=== PATIENT | female | born 1970 | race Caucasian/White ===

== ENCOUNTER 2017-07-12 22:13 | Emergency (ER) | payer BC ==
[2017-07-12 23:03] LABS: Absolute Lymphocytes (CBC) 1.5 K/uL (0.7-4.9); Absolute Monocytes 0.4 K/uL (0.1-1.3); Absolute Neutrophil 4.5 K/uL (1.8-8.0); Basophils % 0.6 % (0-1.3); Eosinophils % 3.3 % (0-4.4); Hematocrit 28.4 % (36.0-45.0); Lymphocytes % 22.4 % (15.3-44.8); MCH 29.4 pg (27.0-35.0); MCV 85.9 fL (80-100); MPV 9.4 fL (7.6-11.3); Monocytes % 5.9 % (3.3-12.3); RBC Red Blood Cell Count 3.31 M/uL (3.86-4.86)
[2017-07-12 23:15] LABS: Potassium 4.2 mEq/L (3.6-5.0)
[2017-07-12 23:19] LABS: Protime INR 0.87
[2017-07-12 23:21] LABS: Albumin 3.7 g/dL (3.2-5.5); Bilirubin Direct 0.1 mg/dL (0-0.2); Bilirubin Total 0.4 mg/dL (0.3-1.2); Magnesium 1.7 mg/dL (1.8-2.5); Protein, Total 7.9 g/dL (6.0-8.3)
[2017-07-12 23:25] LABS: CKMB Creatine Kinase MB 5.7 ng/ml (0.3-4.0)
[2017-07-12] MEDS ORDERED: ONDANSETRON 4 MG/2 ML VIAL ONE (23:44)
[2017-07-12] MEDS ORDERED: MORPHINE 4 MG/ML SYR ONE (23:44)
[2017-07-12 23:58] LABS: Urine Blood 1+ (NEG); Urine Glucose TRACE (NEG); Urine Protein 3+ (NEG); Urine Specific Gravity 1.015 (1.005-1.030)
[2017-07-13] MEDS ORDERED: MAGNESIUM SULFATE 1 gm IVPB 1 GM/100 ML BAG IV ONE (00:07)
--- NOTE | 2017-07-13 01:29 | EDPHYS ---
Physician Documentation [facility] Name: Emily Barbour Age: 46 yrs Sex: Female : 1970 Arrival Date: 07/12/2017 Time: 22:14 Bed 5 Private MD: ED Physician Ty Cano HPI: 07/13 00:00 This 46 yrs old Female presents to ER via Ambulatory with complaints of Leg pm1 Swelling. 00:00 The patient presents with swelling. The complaints affect the right leg and left leg. pm1 Context: The problem was sustained at home, resulted from an unknown cause, the patient can fully bear weight, the patient is able to ambulate, Problem is a result from a previous injury: No. Onset: The symptoms/episode began/occurred 1 month(s) ago. Modifying factors: The symptoms are alleviated by elevating leg, the symptoms are aggravated by nothing. Treatment prior to arrival includes: prescription medications, Lasix since 06/21/2017. Severity of symptoms: in the emergency department the symptoms are actually worse. The patient has been recently seen by a physician: the patient's primary care provider, Dr. Cameron. Patient with complaints of bilateral pedal edema for at least one month. Patient was seen by Dr. Cameron on 06/21 for same complaint and was prescribed Lasix. Patient reports not much improvement in swelling with Lasix. Patient reports some shortness of breath present with exertion. No chest pain. 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 - Social history:: Smoking status: Patient/guardian denies using tobacco. ROS: 07/13 00:00 Constitutional: Negative for fever, chills, and weight loss, Eyes: Negative for injury, pm1 pain, redness, and discharge, ENT: Negative for injury, pain, and discharge, Neck: Negative for injury, pain, and swelling, Cardiovascular: Negative for chest pain, palpitations, and edema. Abdomen/GI: Negative for abdominal pain, nausea, vomiting, diarrhea, and constipation, Back: Negative for injury and pain, : Negative for injury, bleeding, discharge, and swelling. Skin: Negative for injury, rash, and discoloration, Neuro: Negative for headache, weakness, numbness, tingling, and seizure. Respiratory: Positive for dyspnea on exertion, Negative for wheezing. MS/extremity: Positive for swelling, of the right leg and left leg. Exam: 00:00 Constitutional: This is a well developed, well nourished patient who is awake, alert, pm1 and in no acute distress. Head/Face: Normocephalic, atraumatic. Eyes: Pupils equal round and reactive to light, extra-ocular motions intact. Lids and lashes normal. Conjunctiva and sclera are non-icteric and not injected. Cornea within normal limits. Periorbital areas with no swelling, redness, or edema. ENT: Nares patent. No nasal discharge, no septal abnormalities noted. Tympanic membranes are normal and external auditory canals are clear. Oropharynx with no redness, swelling, or masses, exudates, or evidence of obstruction, uvula midline. Mucous membranes moist. Neck: Trachea midline, no thyromegaly or masses palpated, and no cervical lymphadenopathy. Supple, full range of motion without nuchal rigidity, or vertebral point tenderness. No Meningismus. Chest/axilla: Normal chest wall appearance and motion. Nontender with no deformity. No lesions are appreciated. 00:00 Respiratory: Lungs have equal breath sounds bilaterally, clear to auscultation and percussion. No rales, rhonchi or wheezes noted. No increased work of breathing, no retractions or nasal flaring. Abdomen/GI: Soft, non-tender, with normal bowel sounds. No distension or tympany. No guarding or rebound. No evidence of tenderness throughout. Back: No spinal tenderness. No costovertebral tenderness. Full range of motion. Skin: Warm, dry with normal turgor. Normal color with no rashes, no lesions, and no evidence of cellulitis. MS/ Extremity: Pulses equal, no cyanosis. Neurovascular intact. Full, normal range of motion. 00:00 Cardiovascular: Rate: normal, Rhythm: regular, Pulses: no pulse deficits are appreciated, Edema: pedal edema, that is mild. 00:00 Neuro: Orientation: is normal, Motor: is normal, moves all fours, Sensation: is normal, no obvious gross deficits. Vital Signs: 07/12 22:22 BP 164 / 78; Pulse 102; Resp 18; Temp 98.9; Pulse Ox 98% on R/A; Weight 95.25 kg (R); sr5 Height 5 ft. 5 in. (165.10 cm); Pain 10/10; 23:31 BP 148 / 90; Pulse 95; Resp 17; Pulse Ox 96% on R/A; Pain 10/10; tl1 23:55 BP 139 / 74; Pulse 92; Resp 19; Pulse Ox 95% on R/A; Pain 6/10; tl1 07/13 01:05 BP 125 / 71; Pulse 89; Resp 17; Temp 98.8; Pulse Ox 96% on R/A; Pain 4/10; tl1 07/12 22:22 Body Mass Index 34.95 (95.25 kg, 165.10 cm) sr5 MDM: 07/12 22:32 Patient medically screened. pm1 07/13 00:53 Data reviewed: vital signs. Data interpreted: Pulse oximetry: on room air is 98 %. pm1 Interpretation: normal. 01:28 Counseling: I had a detailed discussion with the patient and/or guardian regarding: the pm1 historical points, exam findings, and any diagnostic results supporting the discharge/admit diagnosis, lab results, radiology results, the need for outpatient follow up, to return to the emergency department if symptoms worsen or persist or if there are any questions or concerns that arise at home, Stop lasix. 07/12 22:48 Order name: Basic Metabolic Panel; Complete Time: 00:07 pm07/12 22:48 Order name: BNP; Complete Time: 00:07 pm07/12 22:48 Order name: CBC with Diff; Complete Time: 23:23 pm07/12 22:48 Order name: Ckmb; Complete Time: 00:07 pm07/12 22:48 Order name: CPK; Complete Time: 00:07 pm07/12 22:48 Order name: LFT's; Complete Time: 00:07 pm07/12 22:48 Order name: Magnesium; Complete Time: 00:07 pm07/12 22:48 Order name: PT-INR; Complete Time: 00:07 pm07/12 22:48 Order name: Ptt, Activated; Complete Time: 00:07 pm07/12 22:48 Order name: Troponin (emerg Dept Use Only); Complete Time: 23:23 pm1 07/12 22:48 Order name: XRAY Chest (1 view) pm1 07/12 23:34 Order name: Urine Dipstick--Ancillary (enter results); Complete Time: 00:07 2 07/12 23:34 Order name: Urine --Ancillary (enter results); Complete Time: 00:07 2 07/12 22:48 Order name: Urine Test (obtain specimen); Complete Time: 23:21 pm1 07/12 22:48 Order name: EKG; Complete Time: 22:48 pm1 07/12 22:48 Order name: Cardiac monitoring; Complete Time: 22:52 pm1 07/12 22:48 Order name: EKG - Nurse/Tech; Complete Time: 22:52 pm07/12 22:48 Order name: IV Saline Lock; Complete Time: 22:52 pm07/12 22:48 Order name: Labs collected and sent; Complete Time: 22:52 pm07/12 22:48 Order name: O2 Per Protocol; Complete Time: 22:52 pm07/12 22:48 Order name: O2 Sat Monitoring; Complete Time: 22:52 pm07/12 22:48 Order name: Urine Dipstick-Ancillary (obtain specimen); Complete Time: 22:52 pm1 Administered Medications: 07/12 23:29 Drug: Zofran 4 mg Route: IVP; Infused Over: 2 mins; Site: left antecubital; [facility] 07/13 01:06 Follow up: Response: No adverse reaction; Marked relief of symptoms [facility] 07/12 23:30 Drug: morphine 4 mg Route: IVP; Infused Over: 2 mins; Site: right antecubital; 1 07/13 01:06 Follow up: Response: No adverse reaction; Marked relief of symptoms; Pain is decreased [facility] 07/12 23:54 Drug: Magnesium Sulfate 1 grams Route: IVPB; Infused Over: 1 hrs; Site: right 1 antecubital; 07/13 01:05 Follow up: IV Status: Completed infusion 1 Disposition: 01:51 Co-signature as Attending Physician, Ty Cano MD I agree with the assessment and kdr plan of care. Disposition: 07/13/17 01:29 Discharged to Home. Impression: Edema, unspecified. - Condition is Stable. - Discharge Instructions: Edema. - Medication Reconciliation Form, Thank You Letter form. - Follow up: Emergency Department; When: As needed; Reason: Worsening of condition. Follow up: Jean-Paul Cameron DO; When: 1 - 2 days; Reason: Recheck today's complaints, Continuance of care, Re-evaluation by your physician. - Problem is new. - Symptoms have improved. Signatures: Dispatcher [employer] EDOK Ty Cano MD MD [facility] Michelle Moses, RN RN tl1 Alvino Irizarry NP PUBLIC TRANSIT TROLLEY DRIVER pm1 Jhonny Brito RN RN sr5
--- NOTE | 2017-07-13 01:29 | ER ---
Nurse's Notes [facility] Name: Emily Barbour Age: 46 yrs Sex: Female : 1970 Arrival Date: 07/12/2017 Time: 22:14 Bed 5 Private MD: Diagnosis: Edema, unspecified Presentation: 07/12 22:20 Presenting complaint: Patient states: bilateral leg swelling x several weeks, started sr5 on Lasix 40mg daily on June 30, reports some improvement but now having redness to that same area. PMH= DM, stage 4 kidney failure. 22:20 Acuity: SALENA 3 sr5 07/13 01:35 Transition of care: patient was not received from another setting of care. Onset of tl1 symptoms was July 13, 2017. Care prior to arrival: None. 01:35 Method Of Arrival: Ambulatory tl1 Triage Assessment: 07/12 22:22 General: Appears uncomfortable, Behavior is calm, cooperative. Pain: Complains of pain sr5 in right leg and left leg. 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 - Social history:: Smoking status: Patient/guardian denies using tobacco. Screenin:51 Abuse screen: Denies threats or abuse. Denies injuries from another. Nutritional tl1 screening: No deficits noted. Tuberculosis screening: No symptoms or risk factors identified. Fall Risk IV access (20 points). Assessment: 23:32 General: Appears in no apparent distress. uncomfortable, Behavior is calm, cooperative, tl1 appropriate for age. Pain: Complains of pain in left leg and right leg Pain currently is 10 out of 10 on a pain scale. Quality of pain is described as aching, sharp, stabbing. Neuro: Level of Consciousness is awake, alert, obeys commands, Oriented to person, place, time, situation. Cardiovascular: Reports shortness of breath, Denies chest pain, Rhythm is sinus tachycardia. Respiratory: Reports shortness of breath on exertion Airway is patent Trachea midline Respiratory effort is even, unlabored, Breath sounds are clear bilaterally. GI: Abdomen is round obese, Bowel sounds present X 4 quads. Abd is soft and non tender X 4 quads. : No signs and/or symptoms were reported regarding the genitourinary system. Musculoskeletal: Swelling present in left leg and right leg Reports pain in left leg and right leg. 07/13 01:33 Reassessment: Patient and/or family updated on plan of care and expected duration. Pain tl1 level reassessed. Patient is alert, oriented x 3, equal unlabored respirations, skin warm/dry/pink. Patient states feeling better. Patient states symptoms have improved. Vital Signs: 07/12 22:22 BP 164 / 78; Pulse 102; Resp 18; Temp 98.9; Pulse Ox 98% on R/A; Weight 95.25 kg (R); sr5 Height 5 ft. 5 in. (165.10 cm); Pain 10/10; 23:31 BP 148 / 90; Pulse 95; Resp 17; Pulse Ox 96% on R/A; Pain 10/10; tl1 23:55 BP 139 / 74; Pulse 92; Resp 19; Pulse Ox 95% on R/A; Pain 6/10; tl1 07/13 01:05 BP 125 / 71; Pulse 89; Resp 17; Temp 98.8; Pulse Ox 96% on R/A; Pain 4/10; tl1 07/12 22:22 Body Mass Index 34.95 (95.25 kg, 165.10 cm) sr5 ED Course: 07/12 22:14 Patient arrived in ED. am2 22:21 Triage completed. sr5 22:22 Arm band placed on right wrist. sr5 22:23 Alvino Irizarry NP is PHCP. pm1 22:23 Ty Cano MD is Attending Physician. pm1 22:51 Michelle Moses RN is Primary Nurse. tl1 22:51 No provider procedures requiring assistance completed. Inserted saline lock: 20 gauge tl1 in right antecubital area, using aseptic technique. Blood collected. 22:54 X-ray completed. Portable x-ray completed in exam room. Patient tolerated procedure bb2 well. 22:55 XRAY Chest (1 view) In Process Unspecified. EDMS 07/13 01:29 Jean-Paul Cameron DO is Referral Physician. pm1 01:33 intact, bleeding controlled, No redness/swelling at site. Pressure dressing applied. tl1 01:35 Patient has correct armband on for positive identification. Call light in reach. Side tl1 rails up X 1. Adult w/ patient. Administered Medications: 07/12 23:29 Drug: Zofran 4 mg Route: IVP; Infused Over: 2 mins; Site: left antecubital; tl1 07/13 01:06 Follow up: Response: No adverse reaction; Marked relief of symptoms tl1 07/12 23:30 Drug: morphine 4 mg Route: IVP; Infused Over: 2 mins; Site: right antecubital; tl1 07/13 01:06 Follow up: Response: No adverse reaction; Marked relief of symptoms; Pain is decreased tl1 07/12 23:54 Drug: Magnesium Sulfate 1 grams Route: IVPB; Infused Over: 1 hrs; Site: right tl1 antecubital; 07/13 01:05 Follow up: IV Status: Completed infusion tl1 Outcome: 01:29 Discharge ordered by MD. pm1 01:34 Discharged to home ambulatory, with family. tl1 01:34 Condition: improved 01:34 Discharge instructions given to patient, family, Instructed on discharge instructions, follow up and referral plans. Demonstrated understanding of instructions, follow-up care, discontinue Lasix until you follow up with Dr Rhodes 01:36 Patient left the ED. tl1 Signatures: Dispatcher [employer] EDMS Michelle Moses RN RN tl1 Alvino Irizarry, EXCHANGE CLERK EXCHANGE CLERK pm1 Jhonny Brito RN RN sr5 Jacquie Hughes am2 Saniya Myers bb2
[2017-07-13 01:52] VITALS: BP 125/71; TEMP 98.8; O2SAT 96
--- NOTE | 2017-07-13 08:08 | RAD REPORT ---
EXAM DESCRIPTION: RAD - Chest Single View - 07/12/2017 10:56 pm CLINICAL HISTORY: Shortness of breath. COMPARISON: 12/31/2016 FINDINGS: Portable technique limits examination quality. The lungs are grossly clear. The heart is normal in size. No displaced fractures. IMPRESSION: No acute intrathoracic process suspected.
--- NOTE | 2017-07-13 10:23 | EKG ---
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
== END 2017-07-13 01:36 | disposition home or self-care (01) ==
LOC: ER 22:13
DX: R60.9 Edema, unspecified (principal); Z88.8 Allergy status to other drugs, medicaments and biological substances
CPT/HCPCS: 36415; 71045; 80048; 80076; 81003; 81025; 82550; 82553; 83735; 83880; 84484; 85025; 85610; 85730; 93005; 99284; J2405; J3475

== ENCOUNTER 2017-07-14 10:40 | Emergency (ER) | payer BC ==
--- NOTE | 2017-07-14 11:13 | ER ---
Nurse's Notes [facility] Name: Emily Barbour Age: 46 yrs Sex: Female : 1970 Arrival Date: 07/14/2017 Time: 10:41 Bed 18 Private MD: Jean-Paul Cameron Diagnosis: Chronic pain, not elsewhere classified-neck Presentation: 07/14 10:57 Presenting complaint: Patient states: neck pain x 6 months. Pt seen by Dr. Ty who ss wants to have an MRI, but patient has yet to have one scheduled. states, "pretty much we are here because she needs something for pain.". Transition of care: patient was not received from another setting of care. Onset of symptoms was 2016. Care prior to arrival: None. 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 - Social history:: Smoking status: Patient/guardian denies using tobacco. Screenin:17 Abuse screen: Denies threats or abuse. Nutritional screening: No deficits noted. em Tuberculosis screening: No symptoms or risk factors identified. Fall Risk None identified. Assessment: 11:18 General: Appears in no apparent distress. uncomfortable, Behavior is cooperative, em crying, Reports having neck pain for 6 months, was aggravated by falling asleep on the toilet, has tingling in the right shoulder that is the same as 6 months ago, rates pain 9/10 has scheduled MRI but insurance has delayed it. Pain: Complains of pain in right side of neck Pain currently is 9 out of 10 on a pain scale. Quality of pain is described as sharp. Neuro: Level of Consciousness is awake, alert, obeys commands, Oriented to person, place, time, situation, Speech is normal, Tingling in right side of neck Denies weakness numbness. Cardiovascular: Capillary refill < 3 seconds Patient's skin is warm and dry. Respiratory: Airway is patent Respiratory effort is even, unlabored, Respiratory pattern is regular, symmetrical. GI: Abdomen is round non-distended. : No signs and/or symptoms were reported regarding the genitourinary system. EENT: No signs and/or symptoms were reported regarding the EENT system. Derm: Skin is intact, Skin is pink, warm \\T\\ dry. Musculoskeletal: Range of motion: limited in neck. Vital Signs: 10:59 BP 147 / 80; Pulse 102; Resp 16; Temp 97.6(O); Pulse Ox 98% on R/A; Height 5 ft. 5 in. ss (165.10 cm); Pain 9/10; 11:33 BP 138 / 84; Pulse 88; Resp 16; Pulse Ox 99% on R/A; Pain 9/10; em ED Course: 10:41 Patient arrived in ED. as 10:41 Jean-Paul Cameron DO is Private Physician. as 10:58 Triage completed. ss 10:59 Magda Dempsey [facility]-C [facility]. kb 10:59 Yordan Magana MD is Attending Physician. kb 10:59 Arm band placed on right wrist. ss 11:03 Kuldip Bay LVN is Primary Nurse. em 11:17 Patient has correct armband on for positive identification. Bed in low position. Call em light in reach. Side rails up X2. 11:17 No provider procedures requiring assistance completed. Patient did not have IV access em during this emergency room visit. Administered Medications: 11:20 Drug: [place] 5 mg-325 mg 1 tabs Route: PO; em 11:35 Follow up: Response: No adverse reaction; Pain is unchanged, physician notified em Outcome: 11:12 Discharge ordered by MD. kb 11:32 Discharged to home ambulatory. em 11:32 Condition: good 11:32 Discharge instructions given to patient, Instructed on discharge instructions, follow up and referral plans. Demonstrated understanding of instructions, follow-up care. 11:34 Patient left the ED. em Signatures: Magda Dempsey FNP-C FNP-Ckb Munoz, Edgar, LVN LVN em Clara Arzola Shelby, RN RN ss
--- NOTE | 2017-07-14 11:13 | EDPHYS ---
Physician Documentation [facility] Name: Emily Barbour Age: 46 yrs Sex: Female : 1970 Arrival Date: 07/14/2017 Time: 10:41 Bed 18 Private MD: Jean-Paul Cameron ED Physician Yordan Magana HPI: 07/14 11:08 This 46 yrs old Female presents to ER via Ambulatory with complaints of Neck kb Pain, >24Hrs Old. 11:08 The patient or guardian complains of pain, that is chronic. The symptoms are located on kb the right side of neck. Onset: The symptoms/episode began/occurred 6 month(s) ago. Context: The problem was sustained at home, The neck injury/problem resulted from sleeping wrong. Associated signs and symptoms: The patient has no apparent associated signs or symptoms, The patient denies any alcohol use. The patient is not apparently intoxicated. No neurological symptoms were experienced by the patient prior to arrival in the emergency department. The pain radiates to the anterior aspect of right shoulder. Modifying factors: The symptoms are alleviated by nothing. the symptoms are aggravated by movement, pressure. Severity of symptoms: At their worst the symptoms were moderate, in the emergency department the symptoms are unchanged. The patient has experienced similar episodes in the past. The patient has been recently seen by a physician:. Pt reports neck pain for 6 months. Has been seen by Dr Ty and is waiting on approval from insurance for a MRI. Comes in today because the pain was worse this morning. "I need something for this pain.". 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 - Social history:: Smoking status: Patient/guardian denies using tobacco. ROS: 11:08 Constitutional: Negative for fever, chills, and weight loss, Cardiovascular: Negative kb for chest pain, palpitations, and edema, Respiratory: Negative for shortness of breath, cough, wheezing, and pleuritic chest pain, Abdomen/GI: Negative for abdominal pain, nausea, vomiting, diarrhea, and constipation, MS/Extremity: Negative for injury and deformity, Skin: Negative for injury, rash, and discoloration, Neuro: Negative for headache, weakness, numbness, tingling, and seizure. 11:08 Neck: Positive for pain with movement, pain at rest, tenderness. Exam: 11:08 Constitutional: This is a well developed, well nourished patient who is awake, alert, kb and in no acute distress. Head/Face: Normocephalic, atraumatic. Chest/axilla: Normal chest wall appearance and motion. Nontender with no deformity. No lesions are appreciated. Cardiovascular: Regular rate and rhythm with a normal S1 and S2. No gallops, murmurs, or rubs. Normal PMI, no JVD. No pulse deficits. Respiratory: Lungs have equal breath sounds bilaterally, clear to auscultation and percussion. No rales, rhonchi or wheezes noted. No increased work of breathing, no retractions or nasal flaring. Abdomen/GI: Soft, non-tender, with normal bowel sounds. No distension or tympany. No guarding or rebound. No evidence of tenderness throughout. Skin: Warm, dry with normal turgor. Normal color with no rashes, no lesions, and no evidence of cellulitis. MS/ Extremity: Pulses equal, no cyanosis. Neurovascular intact. Full, normal range of motion. Neuro: Awake and alert, GCS 15, oriented to person, place, time, and situation. Cranial nerves II-XII grossly intact. Motor strength 5/5 in all extremities. Sensory grossly intact. Cerebellar exam normal. Normal gait. 11:08 Neck: External neck: tenderness, that is moderate, of the right side of neck. Vital Signs: 10:59 BP 147 / 80; Pulse 102; Resp 16; Temp 97.6(O); Pulse Ox 98% on R/A; Height 5 ft. 5 in. ss (165.10 cm); Pain 9/10; 11:33 BP 138 / 84; Pulse 88; Resp 16; Pulse Ox 99% on R/A; Pain 9/10; em MDM: 11:01 Patient medically screened. kb 11:08 Data reviewed: vital signs, nurses notes. Data interpreted: Pulse oximetry: on room air kb is 98 %. Interpretation: normal. Counseling: I had a detailed discussion with the patient and/or guardian regarding: the historical points, exam findings, and any diagnostic results supporting the discharge/admit diagnosis, the need for outpatient follow up, a family practitioner, to return to the emergency department if symptoms worsen or persist or if there are any questions or concerns that arise at home. ED course: Pt has tylenol #3 for pain at home. . Administered Medications: 11:20 Drug: [place] 5 mg-325 mg 1 tabs Route: PO; em 11:35 Follow up: Response: No adverse reaction; Pain is unchanged, physician notified em Disposition: 14:44 Co-signature as Attending Physician, Yordan Magana MD. Disposition: 07/14/17 11:12 Discharged to Home. Impression: Chronic pain, not elsewhere classified - neck. - Condition is Stable. - Discharge Instructions: Chronic Pain. - Medication Reconciliation Form, Thank You Letter, Antibiotic Education, Prescription Opioid Use form. - Follow up: Emergency Department; When: As needed; Reason: Worsening of condition. Follow up: Private Physician; When: 2 - 3 days; Reason: Recheck today's complaints, Continuance of care, Re-evaluation by your physician. Signatures: Magda Dempsey, PAOLA-Aurelio GUEVARA-Kuldip Nunez, INGRID TECHNICAL SPECIALIST CYTOGENETICS Suma Kinsey, Yordan Villagomez RN, MD MD
[2017-07-14] MEDS ORDERED: HYDROCODONE/APAP 5/325 MG TAB ONE (11:32)
[2017-07-14 11:46] VITALS: TEMP 97.6
[2017-07-14 11:47] VITALS: BP 138/84; O2SAT 99
== END 2017-07-14 11:34 | disposition home or self-care (01) ==
LOC: ER 10:40
DX: G89.29 Other chronic pain (principal); I10 Essential (primary) hypertension; Z88.8 Allergy status to other drugs, medicaments and biological substances
CPT/HCPCS: 99283

== ENCOUNTER 2017-07-19 15:51 | Inpatient (IN) | payer BC ==
--- NOTE | 2017-07-19 17:11 | RAD REPORT ---
EXAM DESCRIPTION: Cece Single View07/19/2017 4:56 pm CLINICAL HISTORY: sob COMPARISON: June 2017 FINDINGS: The lungs appear clear of acute infiltrate. The heart is normal size IMPRESSION: No acute abnormalities displayed
[2017-07-19 17:27] LABS: Protime INR 1.01
[2017-07-19 17:32] LABS: Absolute Monocytes 0.4 K/uL (0.1-1.3); Absolute Neutrophil 4.6 K/uL (1.8-8.0); Basophils % 1.6 % (0-1.3); Eosinophils % 3.6 % (0-4.4); Hematocrit 23.4 % (36.0-45.0); Lymphocytes % 15.5 % (15.3-44.8); MCH 29.1 pg (27.0-35.0); MCV 86.9 fL (80-100); MPV 9.7 fL (7.6-11.3); Monocytes % 5.7 % (3.3-12.3); RBC Red Blood Cell Count 2.69 M/uL (3.86-4.86)
[2017-07-19] MEDS ORDERED: HYDRALAZINE HCL 20 MG/ML VIAL IV PRN (17:41)
[2017-07-19] MEDS ORDERED: ONDANSETRON 4 MG/2 ML VIAL IV PRN (17:41)
[2017-07-19] MEDS ORDERED: ACETAMINOPHEN 500 MG TAB PO PRN (17:41)
[2017-07-19 17:45] LABS: Magnesium 2.4 mg/dL (1.8-2.5)
[2017-07-19 17:47] LABS: Potassium 4.2 mEq/L (3.6-5.0)
[2017-07-19] MEDS ORDERED: FUROSEMIDE 40 MG/4 ML VIAL ONE (17:51)
--- NOTE | 2017-07-19 17:53 | P.HP ---
Certification for Inpatient Patient admitted to: Observation With expected LOS: <2 Midnights Patient will require the following post-hospital care: None Practitioner: I am a practitioner with admitting privileges, knowledge of patient current condition, hospital course, and medical plan of care. Services: Services provided to patient in accordance with Admission requirements found in Title 42 Section 412.3 of the Code of Federal Regulations Patient History Date of Service: 07/19/17 Primary Care Provider: Dr. Cameron Reason for admission: Shortness of breath, edema History of Present Illness: 46-year-old female presented emergency room with increasing shortness of breath with exertion and edema. Patient has reported increasing shortness of breath with exertion and edema over the last several weeks. This week she has noted worsening symptoms. The patient reports a history of diabetes and chronic renal disease. The patient reports taking a diuretic medication. She is not on a strict fluid restriction. Patient also reports some back pain noted to the lumbar region. Edema to the lower extremities has it been increasing over the last several days. She is not able to walk short distances without getting tired and short of breath. She decided to come to the ER for further evaluation. In the ER the patient was evaluated. She was slightly tachypneic. Patient was found to have crackles to the lungs on exam. Chest x-ray showed mild pulmonary edema. Due to the nature the findings the patient was admitted for further evaluation and treatment. I was asked to admit the patient. Lab showed worsening of her chronic renal disease. Patient was also anemic at 7.8. This is a lower hemoglobin since her last lab. When I saw the patient in the ER, she appeared stable. Edema to the lower extremities were noted. Patient had some shortness of breath after talking. Allergies metformin Allergy (Verified 08/22/16 19:56) Unknown diphenhydramine HCl [From Benadryl] Adverse Reaction (Verified 08/22/16 15:45) Nausea/Vomiting linagliptin [From Tradjenta] Adverse Reaction (Verified 08/22/16 15:45) weight loss TRIGENTA Adverse Reaction (Severe, Uncoded 08/22/16 19:57) Nausea/Vomiting Home Medications: Amitriptyline HCl 100 mg PO BEDTIME 01/09/16 Cholecalciferol (Vitamin D3) [Vitamin D3] 1 tab PO DAILY 01/09/16 Fenofibrate 160 mg PO DAILY 01/09/16 Ferrous Sulfate [Feosol] 325 mg PO BID 01/09/16 Liraglutide [Victoza 2-Raghu] 1.8 mg SQ BEDTIME 01/09/16 Magnesium Chloride [Slow-Mag*] 1 tab PO BID 01/09/16 Omeprazole 1 tab PO BEDTIME 01/09/16 Sodium Bicarbonate 1 tab PO DAILY 01/09/16 Cyanocobalamin [Vitamin B-12*] 1,000 mcg PO DAILY #90 tab 01/12/16 Insulin Glargine,Hum.rec.anlog [Toujeo Solostar] 40 unit SQ DAILY WITH BREAKFAST 08/22/16 Insulin Lispro [Humalog Kwikpen] See Protocol SQ TID 08/22/16 Duloxetine HCl 30 mg PO DAILY 12/31/16 Trazodone [Desyrel*] 50 mg PO BEDTIME 12/31/16 - Past Medical/Surgical History Diabetic: Yes -: Hypertension -: Hypertriglyceridemia -: Diabetes mellitus type 2 -: Diabetic neuropathy -: Anemia of chronic disease -: Recurrent UTI -: Chronic kidney disease -: Irritable bowel syndrome-diarrhea -: Osteoarthritis -: Former smoker -: Cholecystectomy -: Appendectomy -: Hysterectomy -: Tubal ligation -: Breast reduction -: Adenoidectomy Psychosocial/ Personal History: Patient is for 30 years, she has 3 children, she works at [employer] - Family History Father -: Heart disease, Hypertension, Cancer Mother -: Hypertension, Diabetes - Social History Smoking Status: Former smoker Alcohol use: Yes CD- Drugs: No Caffeine use: Yes Place of Residence: Home Review of Systems General: Weakness, Malaise, As per HPI Eyes: Unremarkable ENT: Unremarkable Respiratory: Shortness of Breath, SOB with Excertion, As per HPI Cardiovascular: Edema, As per HPI Gastrointestinal: Unremarkable Genitourinary: Unremarkable Musculoskeletal: Back Pain, Pedal edema, As per HPI Integumentary: Unremarkable Neurological: Weakness, As per HPI Lymphatics: Unremarkable Physical Examination - Physical Exam General: Alert, In no apparent distress, Oriented x3, Cooperative HEENT: Atraumatic, Normocephalic, PERRLA, Mucous membr. moist/pink Neck: Supple, No Thyromegaly Respiratory: Crackles/rales (Bilateral) Cardiovascular: Abnormal pulses (Slightly tachycardic) Gastrointestinal: Normal bowel sounds, Soft and benign, Non-distended, No tenderness, No masses, No rebound, No guarding Musculoskeletal: No erythema, No tenderness, No warmth, Other (Pain to the lumbar region.) Integumentary: No erythema, No warmth, No cyanosis, Tenderness/swelling (1 to 2 + pitting edema to the lower extremities bilateral) Neurological: Normal speech, Normal strength at 5/5 x4 extr, Normal tone, Normal affect - Studies Laboratory Data (last 24 hrs) 07/19/17 17:10: PT 11.9, INR 1.01 07/19/17 17:10: WBC 6.3, Hgb 7.8 L*, Hct 23.4 L D, Plt Count 258 D 07/19/17 17:10: Glucose 147 H Assessment and Plan - Problems (Diagnosis) (1) Dyspnea Current Visit: Yes Status: Acute Plan: Shortness of breath likely from pulmonary edema. Patient may have underlying CHF along with chronic renal disease. Lab shows worsening of her renal disease. Will diurese patient. Will place on a fluid restriction. Nephrology consulted to further evaluate. Will check echocardiogram. Will monitor cardiac enzymes. Qualifiers: Dyspnea type: shortness of breath Qualified Code(s): R06.02 - Shortness of breath; R06.00 - Dyspnea, unspecified; R06.01 - Orthopnea (2) Pulmonary edema Current Visit: Yes Status: Acute Plan: Patient with acute pulmonary edema. This appears stable at this time. Will continue with diuresis. Will check echocardiogram to evaluate for CHF. Qualifiers: Chronicity: acute Qualified Code(s): J81.0 - Acute pulmonary edema (3) CHF (congestive heart failure) Current Visit: Yes Status: Suspected Plan: Suspect CHF. Will check echocardiogram. Will continue with diuresis. Qualifiers: Heart failure type: systolic Heart failure chronicity: acute on chronic Qualified Code(s): I50.23 - Acute on chronic systolic (congestive) heart failure (4) Chronic kidney disease Onset Date: 01/12/16 Current Visit: No Status: Chronic Plan: Patient with worsening renal disease. Will consult Nephrology. Will continue with above plan of care. Qualifiers: Chronic kidney disease stage: stage 4 (severe) Qualified Code(s): N18.4 - Chronic kidney disease, stage 4 (severe) (5) Diabetes mellitus Onset Date: 09/22/15 Current Visit: No Status: Chronic Plan: Will check A1c. Will continue sliding scale. 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 insulin use: with fpc use Diabetes mellitus complication status: with kidney complications Diabetes mellitus complication detail: with chronic kidney disease Chronic kidney disease stage: stage 4 (severe) Qualified Code(s): E11.22 - Type 2 diabetes mellitus with diabetic chronic kidney disease; N18.4 - Chronic kidney disease, stage 4 (severe); N18.4 - Chronic kidney disease, stage 4 (severe); N18.4 - Chronic kidney disease, stage 4 (severe); N18.4 - Chronic kidney disease, stage 4 (severe); Z79.4 - tank terminal gauger (current) use of insulin; Z79.4 - tank terminal gauger (current) use of insulin; Z79.4 - custodial (current) use of insulin; Z79.4 - custodial (current) use of insulin (6) Hypertension Onset Date: 08/23/16 Current Visit: No Status: Chronic Plan: Patient with history of hypertension. Will need to obtain medication. Will provide medication if blood pressure elevated. Qualifiers: Hypertension type: essential hypertension Qualified Code(s): I10 - Essential (primary) hypertension (7) Anemia Onset Date: 04/30/14 Current Visit: No Status: Chronic Plan: Patient with history of anemia. Will check B12 and iron studies. Will monitor closely. Patient will likely need GI evaluation as an outpatient. Patient denies melena or rectal bleeding. Qualifiers: Anemia type: B12 deficiency Vitamin B12 deficiency anemia type: unspecified B12 deficiency Qualified Code(s): D51.9 - Vitamin B12 deficiency anemia, unspecified (8) GERD (gastroesophageal reflux disease) Current Visit: Yes Status: Suspected Plan: Will provide PPI. Qualifiers: Esophagitis presence: esophagitis presence not specified Qualified Code(s) : K21.9 - Gastro-esophageal reflux disease without esophagitis Discharge Plan: Home Plan to discharge in: 24 Hours - Advance Directives Does patient have a Living Will: No Does patient have a Durable POA for Healthcare: No - Code Status/Comfort Care Code Status Assessed: Yes Time Spent Managing Pts Care (In Minutes): 55
[2017-07-19] MEDS ORDERED: GLUCAGON 1 MG/VIAL IM PRN (17:54)
[2017-07-19] MEDS ORDERED: D50W 25 GM/50 ML SYRINGE IV PRN (17:54)
--- NOTE | 2017-07-19 17:56 | ER ---
Nurse's Notes [facility] Name: Emily Barbour Age: 46 yrs Sex: Female : 1970 Arrival Date: 07/19/2017 Time: 15:54 Bed 15 Private MD: Jean-Paul Cameron Diagnosis: Pulmonary edema;Anemia in chronic kidney disease;Heart failure Presentation: 07/19 16:15 Presenting complaint: Patient states: Weakness, dizziness, and low back pain for 2 aj weeks. Denies blood in urine or burning with urination. Transition of care: patient was not received from another setting of care. Onset of symptoms was July 05, 2017. Care prior to arrival: None. 16:15 Method Of Arrival: Ambulatory aj 16:15 Acuity: SALENA 3 aj Triage Assessment: 16:17 General: Appears in no apparent distress. uncomfortable, Behavior is calm, cooperative, aj appropriate for age. Pain: Complains of pain in low back area Pain currently is 9 out of 10 on a pain scale. Neuro: Level of Consciousness is awake, alert, obeys commands, Oriented to person, place, time, situation. Respiratory: Airway is patent Respiratory effort is even, unlabored, Respiratory pattern is regular, symmetrical. : Denies burning with urination. Derm: Skin is intact, is healthy with good turgor, Skin is pink, warm \T\ dry. normal. Musculoskeletal: Reports pain in low back area. 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 - Hysterectomy aj Historical: - Allergies: 16:17 Benadryl; aj 16:17 metformin; aj 16:17 Tradjenta; aj - Home Meds: 16:17 Amitriptyline Oral [Active]; Cymbalta 20 mg Oral cpDR 1 cap daily [Active]; fenofibrate aj Oral [Active]; Humalog Sub-Q [Active]; Sodium Bicarbonate Oral [Active]; Toujeo SoloStar 300 unit/mL (1.5 mL) subcutaneous inpn [Active]; Victoza 3-Raghu subcutaneous [Active]; gabapentin oral oral [Active]; Tramadol Oral [Active]; - PMHx: 16:17 Anemia; Diabetes - NIDDM; High Cholesterol; Hypertension; Renal Disease; Tendonitis in aj Elbows; - PSHx: 16:17 Hysterectomy; Appendectomy; Cholecystectomy; breast reduction; aj - Immunization history:: Adult Immunizations up to date. - Social history:: Smoking status: Patient/guardian denies using tobacco. Screenin:35 Abuse screen: Denies threats or abuse. Nutritional screening: No deficits noted. rb1 Tuberculosis screening: No symptoms or risk factors identified. Fall Risk None identified. Assessment: 16:35 General: Appears in no apparent distress. comfortable, obese, Behavior is calm, rb1 cooperative. Pain: Complains of pain in low back area Pain currently is 8 out of 10 on a pain scale. Neuro: Level of Consciousness is awake, alert, obeys commands, Oriented to person, place, time, situation. Cardiovascular: Capillary refill < 3 seconds is brisk in bilateral fingers. Respiratory: Airway is patent Respiratory effort is even, unlabored, Respiratory pattern is regular, symmetrical. GI: No signs and/or symptoms were reported involving the gastrointestinal system. : No signs and/or symptoms were reported regarding the genitourinary system. Derm: Skin is pink, warm \T\ dry. Musculoskeletal: Swelling present in right leg and left leg. 17:30 Reassessment: Patient appears in no apparent distress at this time. No changes from rb1 previously documented assessment. 18:28 Reassessment: Patient appears in no apparent distress at this time. Patient and/or rb1 family updated on plan of care and expected duration. Pain level reassessed. Patient is alert, oriented x 3, equal unlabored respirations, skin warm/dry/pink. pt. is talking on the telephone. 19:15 Reassessment: Report received by JOCY Berrios, patient is AOX3, amb, no resp distress bs1 noted, denies chest pain, patient voiding frequently from lasix, patient now has room assignment and orders. pending transfer to 2nd floor. 19:29 Reassessment: Report called to 2nd floor at, patient left for xray. Will be taken up to bs1 2nd floor when patient gets back to ER. Vital Signs: 16:17 BP 129 / 69; Pulse 104; Resp 16; Temp 97.6; Pulse Ox 94% on R/A; Weight 102.06 kg; aj Height 5 ft. 5 in. (165.10 cm); Pain 9/10; 17:40 BP 124 / 68; Pulse 91; Resp 18; Pulse Ox 96% on R/A; rb1 18:30 BP 127 / 68; Pulse 93; Resp 17; Pulse Ox 97% on R/A; rb1 19:30 BP 118 / 59; Pulse 96; Resp 16; Pulse Ox 93% on R/A; Pain 0/10; bs1 16:17 Body Mass Index 37.44 (102.06 kg, 165.10 cm) aj ED Course: 15:54 Patient arrived in ED. mr 15:54 Jean-Paul Cameron DO is Private Physician. mr 16:16 Triage completed. aj 16:17 Arm band placed on right wrist. Patient placed in waiting room, Patient notified of aj wait time. 16:32 Agustina Segundo RN is Primary Nurse. rb1 16:35 Yordan Magana MD is Attending Physician. gs 16:35 Patient has correct armband on for positive identification. Placed in gown. Bed in low rb1 position. Call light in reach. Side rails up X 1. monitoring and evaluation advisor on. Pulse ox on. NIBP on. 16:55 X-ray completed. Portable x-ray completed in exam room. Patient tolerated procedure bb2 well. 16:57 XRAY Chest (1 view) In Process Unspecified. EDMS 17:10 Missed attempt(s): 22 gauge in right antecubital area. Labs were collected by JULIENNE Finley rb1 tech. IV went bad while flushing NS.. 17:40 Inserted saline lock: 20 gauge in left antecubital area, using aseptic technique. Blood ss collected. 17:47 EKG done, by technical services consultant. reviewed by Yordan Magana MD. at1 17:55 Vasquez Buenrostro DO is Hospitalizing Provider. gs 18:57 Report given to JOCY Kingston. rb1 19:37 No provider procedures requiring assistance completed. Patient admitted, IV remains in bs1 place. 19:51 Patient moved to radiology via wheelchair. bb2 19:51 X-ray completed. Patient tolerated procedure well. bb2 19:51 Patient moved back from radiology. bb2 Administered Medications: 17:45 Drug: Lasix 40 mg Route: IVP; Site: left antecubital; rb1 18:11 Follow up: Response: No adverse reaction; Blood pressure is unchanged rb1 Outcome: 17:56 Decision to Hospitalize by Provider. gs 19:37 Admitted to Med/surg accompanied by tech, via wheelchair, room 225, with chart, Report bs1 called to JOCY Morris 19:37 Condition: stable 20:08 Patient left the ED. bs1 Signatures: Dispatcher [employer] EDJacquie Tomas, RN RN Torrie Noble Shelby, RN RN ss Jacquie hernandez, power shovel operator helper EKG Tat1 Agustina Segundo RN RN rb1 Yordan Magana MD MD gs Bock, Brittany bb2 Saniya Thomas RN RN bs1 Corrections: (The following items were deleted from the chart) 18:53 17:00 BP 130 / 71; Pulse 91bpm; Resp 18bpm; Pulse Ox 96% RA; rb1 rb1
--- NOTE | 2017-07-19 17:56 | EDPHYS ---
Physician Documentation [facility] Name: Emily Barbour Age: 46 yrs Sex: Female : 1970 Arrival Date: 07/19/2017 Time: 15:54 Bed 15 Private MD: Jean-Paul Fish ED Physician Yordan Magana HPI: 07/19 17:45 This 46 yrs old Female presents to ER via Ambulatory with complaints of gs Weakness, Dizziness, SOB. 17:45 The patient has shortness of breath with light activity, during heavy activity. Onset: gs The symptoms/episode began/occurred 4 day(s) ago, and became worse and became persistent. Duration: The symptoms are continuous. The patient's shortness of breath is aggravated by exertion. Associated signs and symptoms: Pertinent negatives: fever. Severity of symptoms: At their worst the symptoms were moderate in the emergency department the symptoms are unchanged. The patient has experienced similar episodes in the past, a few times. The patient has been recently seen by a physician: Dr. fish. 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/A - Hysterectomy aj Historical: - Allergies: 16:17 Benadryl; aj 16:17 metformin; aj 16:17 Tradjenta; aj - Home Meds: 16:17 Amitriptyline Oral [Active]; Cymbalta 20 mg Oral cpDR 1 cap daily [Active]; fenofibrate aj Oral [Active]; Humalog Sub-Q [Active]; Sodium Bicarbonate Oral [Active]; Toujeo SoloStar 300 unit/mL (1.5 mL) subcutaneous inpn [Active]; Victoza 3-Raghu subcutaneous [Active]; gabapentin oral oral [Active]; Tramadol Oral [Active]; - PMHx: 16:17 Anemia; Diabetes - NIDDM; High Cholesterol; Hypertension; Renal Disease; Tendonitis in aj Elbows; - PSHx: 16:17 Hysterectomy; Appendectomy; Cholecystectomy; breast reduction; aj - Immunization history:: Adult Immunizations up to date. - Social history:: Smoking status: Patient/guardian denies using tobacco. ROS: 17:45 All other systems are negative. gs Exam: 17:45 Head/Face: Normocephalic, atraumatic. Eyes: Pupils equal round and reactive to light, gs extra-ocular motions intact. Lids and lashes normal. Conjunctiva and sclera are non-icteric and not injected. Cornea within normal limits. Periorbital areas with no swelling, redness, or edema. ENT: Nares patent. No nasal discharge, no septal abnormalities noted. Tympanic membranes are normal and external auditory canals are clear. Oropharynx with no redness, swelling, or masses, exudates, or evidence of obstruction, uvula midline. Mucous membranes moist. Neck: Trachea midline, no thyromegaly or masses palpated, and no cervical lymphadenopathy. Supple, full range of motion without nuchal rigidity, or vertebral point tenderness. No Meningismus. Chest/axilla: Normal chest wall appearance and motion. Nontender with no deformity. No lesions are appreciated. 17:45 Constitutional: The patient appears alert, awake. 17:45 Cardiovascular: Rate: tachycardic, Rhythm: regular, Pulses: no pulse deficits are appreciated, Edema: 2+ edema to level of left midcalf and right midcalf. 17:45 ECG was reviewed by the Attending Physician. Vital Signs: 16:17 BP 129 / 69; Pulse 104; Resp 16; Temp 97.6; Pulse Ox 94% on R/A; Weight 102.06 kg; aj Height 5 ft. 5 in. (165.10 cm); Pain 9/10; 17:40 BP 124 / 68; Pulse 91; Resp 18; Pulse Ox 96% on R/A; rb1 18:30 BP 127 / 68; Pulse 93; Resp 17; Pulse Ox 97% on R/A; rb1 19:30 BP 118 / 59; Pulse 96; Resp 16; Pulse Ox 93% on R/A; Pain 0/10; bs1 16:17 Body Mass Index 37.44 (102.06 kg, 165.10 cm) aj MDM: 16:43 Patient medically screened. 17:45 Differential diagnosis: CHF exacerbation, Chronic Obstructive Pulmonary Disease gs pneumonia, pulmonary edema. Data reviewed: vital signs, nurses notes, and as a result, I will admit patient. 07/19 16:44 Order name: Basic Metabolic Panel; Complete Time: 18:00 07/19 16:44 Order name: BNP 07/19 16:44 Order name: CBC with Diff; Complete Time: 17:51 07/19 16:44 Order name: Magnesium; Complete Time: 18:00 07/19 16:44 Order name: PT-INR; Complete Time: 17:41 07/19 16:44 Order name: Troponin (emerg Dept Use Only); Complete Time: 18:00 07/19 17:49 Order name: Hemoglobin A1C EDMS 07/19 17:49 Order name: T4 Free EDMS 07/19 17:49 Order name: Thyroid Stimulating Hormone EDMS 07/19 17:49 Order name: Basic Metabolic Panel EDMS 07/19 17:49 Order name: Basic Metabolic Panel EDMS 07/19 17:49 Order name: Basic Metabolic Panel EDMS 07/19 17:49 Order name: Basic Metabolic Panel EDMS 07/19 17:49 Order name: CBC with Automated Diff EDMS / 17:49 Order name: CBC with Automated Diff EDMS 07/19 17:49 Order name: CBC with Automated Diff EDMS / 17:49 Order name: CKMB Creatine Kinase MB EDMS / 17:49 Order name: CKMB Creatine Kinase MB EDMS / 17:49 Order name: CKMB Creatine Kinase MB EDMS / 17:49 Order name: Creatine Phosphokinase EDMS / 17:49 Order name: Creatine Phosphokinase EDMS / 17:49 Order name: Creatine Phosphokinase EDMS / 17:49 Order name: Lipid Profile EDMS / 17:49 Order name: Lipid Profile EDMS / 17:49 Order name: Magnesium EDMS / 17:49 Order name: Magnesium EDMS 07/19 17:49 Order name: Magnesium EDMS 07/19 17:49 Order name: Magnesium EDMS 07/19 17:49 Order name: Troponin I EDMS 07/19 17:49 Order name: Troponin I EDMS 07/19 16:44 Order name: XRAY Chest (1 view); Complete Time: 17:15 07/19 16:44 Order name: EKG; Complete Time: 16:44 07/19 16:44 Order name: Cardiac monitoring; Complete Time: 17:46 07/19 16:44 Order name: EKG - Nurse/Tech; Complete Time: 18:30 07/19 16:44 Order name: IV Saline Lock; Complete Time: 17:44 07/19 16:44 Order name: Labs collected and sent; Complete Time: 17:44 07/19 16:44 Order name: O2 Per Protocol; Complete Time: 17:44 gs 07/19 16:44 Order name: O2 Sat Monitoring; Complete Time: 17:45 gs 07/19 16:44 Order name: Urine Dipstick-Ancillary (obtain specimen); Complete Time: 19:01 gs 07/19 17:49 Order name: CONS Physician Consult EDIL 07/19 17:49 Order name: Echo with Doppler EDMS 07/19 17:49 Order name: Renal EDMS 07/19 17:49 Order name: Troponin I EDMS 07/19 17:49 Order name: Lumbar Spine 3 Views EDMS 07/19 17:49 Order name: Thoracic Spine W obliques EDMS 07/19 17:58 Order name: Vitamin B12 Level EDMS 07/19 17:58 Order name: Transferrin Sat/Iron Binding EDMS 07/19 17:58 Order name: Ferritin EDMS 07/19 17:58 Order name: Iron,Serum EDMS 07/19 18:06 Order name: Urine Dipstick--Ancillary (enter results) bd 07/19 18:51 Order name: Transferrin Sat/Iron Binding EDMS EC:45 Rate is 97 beats/min. Rhythm is regular. UT interval is normal. QRS interval is gs prolonged. T waves are Flattened. Clinical impression: Abnormal EKG without significant change. Interpreted by me. Administered Medications: 17:45 Drug: Lasix 40 mg Route: IVP; Site: left antecubital; rb1 18:11 Follow up: Response: No adverse reaction; Blood pressure is unchanged rb1 Disposition: 07/19/17 17:56 Hospitalization ordered by Vasquez Buenrostro for Observation. Preliminary diagnosis are Pulmonary edema, Anemia in chronic kidney disease, Heart failure. - Bed requested for Telemetry/MedSurg (observation). - Status is Observation. bs1 - Condition is Stable. - Problem is an acute exacerbation. - Symptoms have improved. UTI on Admission? Yes Signatures: Dispatcher [employer] EDIL Sadaf Dial RN Jacquie Woodard RN RN aj Barber, Rebecca, RN RN rb1 Yordan Magana MD MD gs Salazar, Brittany, RN RN bs1
[2017-07-19 18:51] LABS: Transferrin 185 mg/dL (192-382)
[2017-07-19 18:52] LABS: Urine Blood TRACE (NEG); Urine Glucose NEGATIVE (NEG); Urine Protein 3+ (NEG); Urine Specific Gravity 1.015 (1.005-1.030)
[2017-07-19 20:18] VITALS: BMI 36.9
--- NOTE | 2017-07-19 20:23 | RAD REPORT ---
EXAM DESCRIPTION: RAD - Lumbar Spine 3 Views - 07/19/2017 7:59 pm CLINICAL HISTORY: Weakness, dizziness, back pain COMPARISON: None. FINDINGS: A three-view lumbar spine examination was performed. Lumbar bodies are normal in height an d alignment. No fracture or acute bony process seen. T12-L1 and L1-2 disc space narrowing present. Th ere is associated endplate spurring. Mild lower lumbar facet joint degenerative changes are present. No pars defects identified. IMPRESSION: Upper lumbar disc and lower lumbar facet degenerative change. No acute findings.
--- NOTE | 2017-07-19 20:53 | RAD REPORT ---
EXAM DESCRIPTION: RAD - Thoracic Spine Ap/Lat - 07/19/2017 7:59 pm CLINICAL HISTORY: Persistent back pain COMPARISON: March 2016 FINDINGS: AP & lateral views of the thoracic spine were obtained. Thoracic bodies are normal in heig ht and alignment. There are no acute or destructive bony processes seen. No paraspinal masses are hung ntified. Endplate spurring present at multiple levels. Pattern is similar to the comparison. No disc space narrowing. IMPRESSION: Thoracic spine degenerative changes are present similar or only minimally progressive fr om 2016. No fracture or acute finding identifiable.
[2017-07-19] MEDS: INSULIN -REGULAR HUMAN 50 UNIT/0.5 ML ML SQ SCH (21:00)
[2017-07-19] MEDS: ENOXAPARIN 30 MG/0.3 ML SQ SCH (21:49)
[2017-07-19] MEDS ORDERED: TRAMADOL HCL 50 MG TAB PO PRN (22:23)
[2017-07-20 01:29] LABS: CKMB Creatine Kinase MB 3.9 ng/ml (0.3-4.0)
[2017-07-20 02:41] LABS: Urine Appearance CLOUDY; Urine Bilirubin NEGATIVE (NEG); Urine Blood NEGATIVE (NEG); Urine Color YELLOW; Urine Glucose 1+ (NEG); Urine Protein 1+ (NEG); Urine Urobilinogen 0.2 mg/dL (0.2-1.0)
[2017-07-20 02:42] LABS: Urine Microscopic Reflex ORDER UMIC
[2017-07-20 03:26] LABS: Urine Bacteria LOADED /HPF (<20); Urine Culture Reflex Order REFLEXED; Urine RBC NONE SEEN /HPF (NONE SEEN)
[2017-07-20 04:46] VITALS: O2SAT 99
[2017-07-20 05:30] LABS: Absolute Monocytes 0.4 K/uL (0.1-1.3); Absolute Neutrophil 3.1 K/uL (1.8-8.0); Basophils % 0.5 % (0-1.3); Eosinophils % 5.2 % (0-4.4); Lymphocytes % 21.6 % (15.3-44.8); MCH 29.9 pg (27.0-35.0); MCV 86.4 fL (80-100); MPV 8.8 fL (7.6-11.3); RBC Red Blood Cell Count 2.78 M/uL (3.86-4.86)
[2017-07-20 06:30] LABS: BUN Blood Urea Nitrogen 49 mg/dL (6-20); Bicarbonate 29 mEq/L (21-31); Glomerular Filtration Rate 17 mL/min (=/>90); Glucose Level 244 mg/dL (65-120); HDL Cholesterol 41 mg/dL (29-89); LDL Cholesterol, Calculated ND (<130); Magnesium 2.4 mg/dL (1.8-2.5); Phosphorus 4.9 mg/dL (2.5-4.3); Potassium 4.3 mEq/L (3.6-5.0); Sodium Level 133 mEq/L (135-145); Uric Acid 9.4 mg/dL (2.6-8.0)
[2017-07-20 06:45] LABS: Thyroid Stimulating Hormone 5.61 uIU/mL (0.34-5.60)
[2017-07-20 07:04] LABS: LDL, Direct 83 mg/dl (<130)
--- NOTE | 2017-07-20 07:36 | EKG ---
Test Date: 2017-07-19 Test Time: 16:52:48 Computer Language Coder: RACHAEL MEASUREMENT RESULTS: Intervals: Rate: 97 MT: 152 QRSD: 148 QT: 402 QTc: 510 [place]: P: 57 MT: 152 QRS: -73 T: 55 INTERPRETIVE STATEMENTS: Normal sinus rhythm Right bundle branch block Left anterior fascicular block Bifascicular block Abnormal ECG Compared to ECG 07/12/2017 22:55:51 Myocardial infarct finding no longer present Bifascicular block still present Electronically Signed On 07-20-17 07:34:56 CDT by Ankit Simmons
[2017-07-20] MEDS ORDERED: TRAMADOL HCL 50 MG TAB PO PRN (07:46)
[2017-07-20 07:53] LABS: A1c Component 0.4 mg/dL; Hemoglobin A1c 6.6 % (4-6.0)
[2017-07-20] MEDS: INSULIN DETEMIR 100 UNIT/1 ML INSULIN SQ SCH (08:28)
[2017-07-20] MEDS: DULOXETINE 30 MG CAP PO SCH (08:29)
[2017-07-20] MEDS: INSULIN -REGULAR HUMAN 50 UNIT/0.5 ML ML SQ SCH ×4 (08:29→21:19)
[2017-07-20] MEDS: ENOXAPARIN 30 MG/0.3 ML SQ SCH (08:29)
--- NOTE | 2017-07-20 08:29 | P.CNS ---
Date of Consult: 07/20/17 Reason for Consult: OMAR/ CKD Requesting Physician: Vasquez Buenrostro Primary Care Provider: Dr. Fish Chief Complaint: Shortness of breath, edema History of Present Illness: 46-year-old female presented emergency room with increasing shortness of breath with exertion and edema. Patient has reported increasing shortness of breath with exertion and edema over the last several weeks. This week she has noted worsening symptoms. The patient reports a history of diabetes and chronic renal disease. The patient reports taking a diuretic medication. She is not on a strict fluid restriction. Patient also reports some back pain noted to the lumbar region. Edema to the lower extremities has it been increasing over the last several days. She is not able to walk short distances without getting tired and short of breath. She decided to come to the ER for further evaluation. 17:45 This 46 yrs old Female presents to ER via Ambulatory with complaints of gs Weakness, Dizziness, SOB. 17:45 The patient has shortness of breath with light activity, during heavy activity. Onset: gs The symptoms/episode began/occurred 4 day(s) ago, and became worse and became persistent. Duration: The symptoms are continuous. The patient's shortness of breath is aggravated by exertion. Associated signs and symptoms: Pertinent negatives : fever. Severity of symptoms: At their worst the symptoms were moderate in the emergency department the symptoms are unchanged. The patient has experienced similar episodes in the past, a few times. The patient has been recently seen by a physician: Dr. fish. Allergies metformin Allergy (Verified 08/22/16 19:56) Unknown diphenhydramine HCl [From Benadryl] Adverse Reaction (Verified 08/22/16 15:45) Nausea/Vomiting linagliptin [From Tradjenta] Adverse Reaction (Verified 08/22/16 15:45) weight loss TRIGENTA Adverse Reaction (Severe, Uncoded 08/22/16 19:57) Nausea/Vomiting Home medications list reviewed: Yes Home Medications: Amitriptyline HCl 100 mg PO BEDTIME 01/09/16 Fenofibrate 160 mg PO DAILY 01/09/16 Liraglutide [Victoza 2-Raghu] 1.8 mg SQ BEDTIME 01/09/16 Sodium Bicarbonate 10 gran PO DAILY 01/09/16 Insulin Lispro [Humalog Kwikpen] See Protocol SQ TID 08/22/16 Bumetanide 0.5 mg PO DAILY 07/19/17 Duloxetine HCl [Cymbalta] 30 mg PO DAILY 07/19/17 Furosemide [Lasix] 40 mg PO DAILY 07/19/17 Insulin Glargine,Hum.rec.anlog [Margaux Hsuostmoshe] 50 unit SQ DAILY 07/19/17 Liraglutide [Victoza 2-Raghu] 1.8 mg SQ DAILY 07/19/17 traMADol HCL [Ultram] 50 mg PO Q6H PRN 07/19/17 - Past Medical/Surgical History Diabetic: Yes -: Hypertension -: Hypertriglyceridemia -: Diabetes mellitus type 2 -: Diabetic neuropathy -: Anemia of chronic disease -: Recurrent UTI -: Chronic kidney disease -: Irritable bowel syndrome-diarrhea -: Osteoarthritis -: Former smoker -: Cholecystectomy -: Appendectomy -: Hysterectomy -: Tubal ligation -: Breast reduction -: Adenoidectomy Psychosocial/ Personal History: Patient is for 30 years, she has 3 children, she works at [employer]. - Family History Father Medical History: Stroke, Cancer Mother Medical History: Heart disease, Diabetes - Social History Smoking Status: Former smoker Alcohol use: Yes CD- Drugs: No Caffeine use: Yes Place of Residence: Home Review of Systems 10-point ROS is otherwise unremarkable General: Weakness, Malaise Respiratory: SOB with Excertion Cardiovascular: Edema Physical Examination Temp Pulse Resp BP Pulse Ox 96.9 F 92 H 18 123/60 99 07/20/17 04:00 07/20/17 04:00 07/20/17 04:00 07/20/17 04:00 07/20/17 04:00 General: In no apparent distress, Oriented x3, Cooperative HEENT: Atraumatic Neck: Supple Respiratory: Clear to auscultation bilaterally, Normal air movement Cardiovascular: Regular rate/rhythm, Edema Gastrointestinal: Soft and benign, Non-distended Musculoskeletal: No clubbing, No contractures Integumentary: No rashes, No cyanosis Neurological: Normal speech Laboratory Data (last 24 hrs) 07/19/17 17:40: B-Natriuretic Peptide 81 07/19/17 17:10: PT 11.9, INR 1.01 07/19/17 17:10: WBC 6.3, Hgb 7.8 L*, Hct 23.4 L D, Plt Count 258 D 07/19/17 17:10: Sodium 132 L, Potassium 4.2, BUN 46 H, Creatinine 3.00 H, Glucose 147 H, Magnesium 2.4 D Imagings Data: EXAM DESCRIPTION: Cece Single View07/19/2017 4:56 pm CLINICAL HISTORY: sob COMPARISON: June 2017 FINDINGS: The lungs appear clear of acute infiltrate. The heart is normal size IMPRESSION: No acute abnormalities displayed Conclusions/Impression: A/ OMAR/ CKD IV. Hyponatremia. DM II with neuropathy and CKD. Anemia in chronic illness. Iron deficiency. HTN with CKD. P/ Continue current POC and Medications. Agree with Lasix. Agree with stopping gabapentin due to possible side effect. No NSAIDs. AM labs. Daily weight. Thank you kindly for the consultation.
[2017-07-20] MEDS: FUROSEMIDE 40 MG/4 ML VIAL IV SCH ×2 (08:30→16:20)
[2017-07-20] MEDS: PANTOPRAZOLE 40MG TABLET PO SCH (08:30)
[2017-07-20] MEDS: FENOFIBRATE 160 MG TAB PO SCH (08:30)
--- NOTE | 2017-07-20 09:48 | P.PN ---
Subjective Date of Service: 07/20/17 Primary Care Provider: Dr. Cameron Chief Complaint: Shortness of breath, edema Subjective: Doing well (Edema to the lower extremities improved. Less short of breath noted.) Physical Examination - Vital Signs Temperature: 96.9 F Blood Pressure: 136/79 Pulse: 91 Respirations: 18 Pulse Ox (%): 99 - Physical Exam General: Alert, In no apparent distress, Oriented x3, Cooperative HEENT: Atraumatic Neck: Supple Respiratory: Crackles/rales (Less crackles to the bases) Cardiovascular: Normal pulses, Regular rate/rhythm Gastrointestinal: Normal bowel sounds, Soft and benign, Non-distended, No tenderness, No masses, No rebound, No guarding Musculoskeletal: No erythema, No tenderness, No warmth Integumentary: Tenderness/swelling (Less edema to the lower extremities. About 1+ bilateral) Neurological: Normal speech, Normal strength at 5/5 x4 extr, Normal tone, Normal affect Lymphatics: No axilla or inguinal lymphadenopathy - Studies Laboratory Data (last 24 hrs) 07/19/17 17:40: B-Natriuretic Peptide 81 07/19/17 17:10: PT 11.9, INR 1.01 07/19/17 17:10: WBC 6.3, Hgb 7.8 L*, Hct 23.4 L D, Plt Count 258 D 07/19/17 17:10: Sodium 132 L, Potassium 4.2, BUN 46 H, Creatinine 3.00 H, Glucose 147 H, Magnesium 2.4 D Medications List Reviewed: Yes Assessment & Plan - Problems (Diagnosis) (1) Dyspnea Current Visit: Yes Status: Acute Plan: Overall this has improved. Await echocardiogram. Case discussed with nephrology. Will continue with diuresis. Will teach on fluid restriction. This is likely related to pulmonary edema related to medication-Gralise. Will discontinue Gralise at this time. Anticipate discharge tomorrow. Qualifiers: Dyspnea type: shortness of breath Qualified Code(s): R06.02 - Shortness of breath; R06.00 - Dyspnea, unspecified; R06.01 - Orthopnea (2) Pulmonary edema Current Visit: Yes Status: Acute Plan: Patient with acute pulmonary edema. This has improved. Will evaluate echocardiogram. Will continue with diuresis. Continue as above. Qualifiers: Chronicity: acute Qualified Code(s): J81.0 - Acute pulmonary edema (3) CHF (congestive heart failure) Current Visit: Yes Status: Suspected Plan: Suspect CHF. Will check echocardiogram. Will continue with diuresis. Qualifiers: Heart failure type: systolic Heart failure chronicity: acute on chronic Qualified Code(s): I50.23 - Acute on chronic systolic (congestive) heart failure (4) Chronic kidney disease Onset Date: 01/12/16 Current Visit: No Status: Chronic Plan: Patient with worsening renal disease. Overall stable. Case discussed at length with nephrology. Will continue with above plan of care. Anticipate discharge tomorrow. Qualifiers: Chronic kidney disease stage: stage 4 (severe) Qualified Code(s): N18.4 - Chronic kidney disease, stage 4 (severe) (5) Diabetes mellitus Onset Date: 09/22/15 Current Visit: No Status: Chronic Plan: A1c 6.6. Will continue sliding scale. Qualifiers: Diabetes mellitus type: type 2 Diabetes mellitus penitentiary insulin use: with superintendent container terminal use Diabetes mellitus complication status: with kidney complications Diabetes mellitus complication detail: with chronic kidney disease Chronic kidney disease stage: stage 4 (severe) Qualified Code(s): E11.22 - Type 2 diabetes mellitus with diabetic chronic kidney disease; N18.4 - Chronic kidney disease, stage 4 (severe); N18.4 - Chronic kidney disease, stage 4 (severe); N18.4 - Chronic kidney disease, stage 4 (severe); N18.4 - Chronic kidney disease, stage 4 (severe); Z79.4 - jail (current) use of insulin; Z79.4 - intermediate designer (current) use of insulin; Z79.4 - intermediate designer (current) use of insulin; Z79.4 - jail (current) use of insulin (6) Hypertension Onset Date: 08/23/16 Current Visit: No Status: Chronic Plan: Patient with history of hypertension. Will need to obtain medication. Will provide medication if blood pressure elevated. Qualifiers: Hypertension type: essential hypertension Qualified Code(s): I10 - Essential (primary) hypertension (7) Anemia Onset Date: 04/30/14 Current Visit: No Status: Chronic Plan: Patient with history of anemia. Will check B12 and iron studies. Will monitor closely. Patient will likely need GI evaluation as an outpatient. Patient denies melena or rectal bleeding. Qualifiers: Anemia type: B12 deficiency Vitamin B12 deficiency anemia type: unspecified B12 deficiency Qualified Code(s): D51.9 - Vitamin B12 deficiency anemia, unspecified (8) GERD (gastroesophageal reflux disease) Current Visit: Yes Status: Suspected Plan: Will provide PPI. Qualifiers: Esophagitis presence: esophagitis presence not specified Qualified Code(s) : K21.9 - Gastro-esophageal reflux disease without esophagitis Discharge Plan: Home Plan to discharge in: 24 Hours Time Spent Managing Pts Care (In Minutes): 55
--- NOTE | 2017-07-20 10:26 | ECHO ---
HEIGHT: 5 ft 5 in WEIGHT: 222 lb 3.2 oz DATE OF STUDY: 07/20/[address]: Vasquez Buenrostro DO 2-DIMENSIONAL: YES M.MODE: YES DOPPLER: YES COLOR FLOW: YES TDS: NO PORTABLE: NO DEFINITY: NO BUBBLE STUDY: NO DIAGNOSIS: SHORTNESS OF BREATH, CONGESTIVE HEART FAILURE, CHRONIC RENAL DISEASE CARDIAC HISTORY: CATHERIZATION: SURGERY: PROSTHETIC VALVE: PACEMAKER: MEASUREMENTS (cm) DIASTOLIC (NORMALS) SYSTOLIC (NORMALS) IVSd 0.9 (0.6-1.2) LA Diam 3.2 (1.9-4.0) LVEF 79% LVIDd 3.4 (3.5-5.7) LVIDs 1.8 (2.0-3.5) %FS 46% LVPWd 1.2 (0.6-1.2) Ao Diam 2.6 (2.0-3.7) 2 DIMENSIONAL ASSESSMENT: RIGHT ATRIUM: NORMAL LEFT ATRIUM: NORMAL RIGHT VENTRICLE: NORMAL LEFT VENTRICLE: NORMAL TRICUSPID VALVE: NORMAL MITRAL VALVE: NORMAL PULMONIC VALVE: NORMAL AORTIC VALVE: NORMAL PERICARDIAL EFFUSION: NONE AORTIC ROOT: NORMAL LEFT VENTRICULAR WALL MOTION: NORMAL. DOPPLER/COLOR FLOW: NORMAL. COMMENTS: NORMAL 2D ECHO WITH DOPPLER. TECHNOLOGIST: ANA LAURA STRATTON
[2017-07-20 10:41] LABS: CKMB Creatine Kinase MB 4.3 ng/ml (0.3-4.0)
[2017-07-20] MEDS: BENZONATATE 100 MG CAP PO PRN (13:27)
[2017-07-20] MEDS ORDERED: AMITRIPTYLINE 50 MG TAB PO SCH (21:00)
[2017-07-21] MEDS: BENZONATATE 100 MG CAP PO PRN (01:28)
[2017-07-21 04:50] LABS: Absolute Lymphocytes (CBC) 1.1 K/uL (0.7-4.9); Absolute Monocytes 0.3 K/uL (0.1-1.3); Absolute Neutrophil 2.7 K/uL (1.8-8.0); Basophils % 0.9 % (0-1.3); Eosinophils % 5.6 % (0-4.4); Hematocrit 25.1 % (36.0-45.0); Lymphocytes % 24.9 % (15.3-44.8); MCV 85.8 fL (80-100); MPV 9.1 fL (7.6-11.3); Monocytes % 7.6 % (3.3-12.3); RBC Red Blood Cell Count 2.93 M/uL (3.86-4.86)
[2017-07-21 05:06] LABS: Magnesium 2.1 mg/dL (1.8-2.5); Potassium 4.4 mEq/L (3.6-5.0)
[2017-07-21] MEDS: INSULIN -REGULAR HUMAN 50 UNIT/0.5 ML ML SQ SCH (07:30)
[2017-07-21] MEDS: FUROSEMIDE 40 MG/4 ML VIAL IV SCH (08:50)
[2017-07-21] MEDS: PANTOPRAZOLE 40MG TABLET PO SCH (08:50)
[2017-07-21] MEDS: FENOFIBRATE 160 MG TAB PO SCH (08:50)
[2017-07-21] MEDS: DULOXETINE 30 MG CAP PO SCH (08:50)
[2017-07-21 08:51] VITALS: BP 151/70
[2017-07-21] MEDS: INSULIN DETEMIR 100 UNIT/1 ML INSULIN SQ SCH (08:51)
[2017-07-21] MEDS: ENOXAPARIN 30 MG/0.3 ML SQ SCH (08:51)
[2017-07-21 12:31] VITALS: TEMP 97.7
--- NOTE | 2017-07-21 13:41 | P.DS ---
Admission Date: 07/20/17 Discharge Date: 07/21/17 Primary Care Provider: Dr. Cameron Disposition: ROUTINE DISCHARGE Discharge Condition: GOOD Reason for Admission: Shortness of breath, edema Consultations: Nephrology-Dr. Cameron Procedures: Echo: Ejection fraction 79% - Problems (1) Dyspnea Onset Date: 07/20/17 Status: Acute Qualifiers: Dyspnea type: shortness of breath Qualified Code(s): R06.02 - Shortness of breath; R06.00 - Dyspnea, unspecified; R06.01 - Orthopnea (2) Pulmonary edema Onset Date: 07/20/17 Status: Acute Qualifiers: Chronicity: acute Qualified Code(s): J81.0 - Acute pulmonary edema (3) CHF (congestive heart failure) Onset Date: 07/20/17 Status: Suspected Qualifiers: Heart failure type: diastolic Heart failure chronicity: acute on chronic Qualified Code(s): I50.33 - Acute on chronic diastolic (congestive) heart failure (4) Chronic kidney disease Onset Date: 07/20/17 Status: Chronic Qualifiers: Chronic kidney disease stage: stage 4 (severe) Qualified Code(s): N18.4 - Chronic kidney disease, stage 4 (severe) (5) Diabetes mellitus Onset Date: 07/20/17 Status: Chronic Qualifiers: Diabetes mellitus type: type 2 Diabetes mellitus oysterman insulin use: with oysterman use Diabetes mellitus complication status: with kidney complications Diabetes mellitus complication detail: with chronic kidney disease Chronic kidney disease stage: stage 4 (severe) Qualified Code(s): E11.22 - Type 2 diabetes mellitus with diabetic chronic kidney disease; N18.4 - Chronic kidney disease, stage 4 (severe); N18.4 - Chronic kidney disease, stage 4 (severe); N18.4 - Chronic kidney disease, stage 4 (severe); N18.4 - Chronic kidney disease, stage 4 (severe); Z79.4 - ad terminal makeup operator (current) use of insulin; Z79.4 - ad terminal makeup operator (current) use of insulin; Z79.4 - ad terminal makeup operator (current) use of insulin; Z79.4 - penitentiary (current) use of insulin (6) Hypertension Onset Date: 07/20/17 Status: Chronic Qualifiers: Hypertension type: essential hypertension Qualified Code(s): I10 - Essential (primary) hypertension (7) Anemia Onset Date: 07/20/17 Status: Chronic Qualifiers: Anemia type: B12 deficiency Vitamin B12 deficiency anemia type: unspecified B12 deficiency Qualified Code(s): D51.9 - Vitamin B12 deficiency anemia, unspecified (8) GERD (gastroesophageal reflux disease) Onset Date: 07/20/17 Status: Suspected Qualifiers: Esophagitis presence: esophagitis presence not specified Qualified Code(s) : K21.9 - Gastro-esophageal reflux disease without esophagitis Brief History of Present Illness: 46-year-old female presented emergency room with increasing shortness of breath with exertion and edema. Patient has reported increasing shortness of breath with exertion and edema over the last several weeks. This week she has noted worsening symptoms. The patient reports a history of diabetes and chronic renal disease. The patient reports taking a diuretic medication. She is not on a strict fluid restriction. Patient also reports some back pain noted to the lumbar region. Edema to the lower extremities has it been increasing over the last several days. She is not able to walk short distances without getting tired and short of breath. She decided to come to the ER for further evaluation. In the ER the patient was evaluated. She was slightly tachypneic. Patient was found to have crackles to the lungs on exam. Chest x-ray showed mild pulmonary edema. Due to the nature the findings the patient was admitted for further evaluation and treatment. I was asked to admit the patient. Lab showed worsening of her chronic renal disease. Patient was also anemic at 7.8. This is a lower hemoglobin since her last lab. When I saw the patient in the ER, she appeared stable. Edema to the lower extremities were noted. Patient had some shortness of breath after talking. Hospital Course: Patient presented with weakness, pulmonary edema, and lower extremity edema. This was likely related to medication-Gralise and with her chronic renal disease. Gralise had been started several weeks ago. She had noticed increasing edema. Echocardiogram showed normal ejection fraction. During her stay the patient was diuresed. She was seen by nephrology. Patient responded to diuresis well. At discharge, medication-Gralise will be discontinued. Patient will continue with a 1500 cc per day fluid restriction. Patient will continue with Lasix 40 mg 1 pill once daily. She is to monitor her weight daily. If her weight increases by more than 5 lb she is to contact nephrology for further recommendation. Patient has chronic renal disease. This remained stable during her stay. Recommendation is to maintain a 1500 cc per day fluid restriction. Recommendation to recheck lab-BMP in 1-2 weeks to follow up this hospitalization. Recommendation is for the patient to follow up with Nephrology to further monitor and address. Patient has diabetes. Hemoglobin A1c 6.6. Patient will continue with her insulin regimen-Toujeo and other medication. Recommendation is to maintain blood sugars less 140 fasting and less than 200 after meals. Further adjustment can be done by her PCP. Patient has hyperlipidemia. She will continue with Fenofibrate 160 mg daily. Patient likely has GERD. Patient will continue with Protonix 40 mg 1 pill once daily. Patient has chronic pain with neuropathy. Patient will continue with Cymbalta and Elavil. As mentioned above. Medication-Gralise will be discontinued. Patient may have underlying obstructive sleep apnea. Recommendation is for the patient to follow up with pulmonology as an outpatient to further evaluate and assess Patient has anemia. Iron deficiency noted. She will continue with iron supplementation 325 mg 1 pill twice daily. Recommendation is to recheck CBC in 2-4 weeks to monitor progress. Recommendation is also for the patient to see GI as an outpatient to further evaluate. Patient may require EGD and colonoscopy to further assess. At discharge urine culture pending. Urinalysis appeared unremarkable. She was without symptoms. This will need to be followed up as an outpatient. Vital Signs/Physical Exam: Temp Pulse Resp BP Pulse Ox 97.7 F 70 16 151/70 H 94 07/21/17 08:00 07/21/17 08:50 07/21/17 08:00 07/21/17 08:50 07/21/17 08:00 General: Alert, In no apparent distress, Oriented x3, Cooperative HEENT: Atraumatic, Mucous membr. moist/pink Neck: Supple, No Thyromegaly Respiratory: Clear to auscultation bilaterally, Normal air movement Cardiovascular: Normal pulses, Regular rate/rhythm Gastrointestinal: Normal bowel sounds, Soft and benign, Non-distended, No tenderness, No masses, No rebound, No guarding Musculoskeletal: No erythema, No tenderness, No warmth Integumentary: No tenderness/swelling, No erythema, No warmth, No cyanosis Neurological: Normal speech, Normal strength at 5/5 x4 extr, Normal tone, Normal affect Lymphatics: No axilla or inguinal lymphadenopathy Laboratory Data at Discharge: WBC 4.5 K/uL (4.3-10.9) 07/21/17 04:21 Hgb 8.5 g/dL (12.0-15.0) L 07/21/17 04:21 Hct 25.1 % (36.0-45.0) L 07/21/17 04:21 Plt Count 225 K/uL (152-406) 07/21/17 04:21 PT 11.9 SECONDS (9.5-12.5) 07/19/17 17:10 INR 1.01 07/19/17 17:10 Sodium 132 mEq/L (135-145) L 07/21/17 04:21 Potassium 4.4 mEq/L (3.6-5.0) 07/21/17 04:21 BUN 50 mg/dL (6-20) H 07/21/17 04:21 Creatinine 2.83 mg/dL (0.44-1.00) H 07/21/17 04:21 Glucose 175 mg/dL (65-120) H 07/21/17 04:21 Uric Acid 9.4 mg/dL (2.6-8.0) H 07/20/17 05:15 Phosphorus 4.9 mg/dL (2.5-4.3) H 07/20/17 05:15 Magnesium 2.1 mg/dL (1.8-2.5) 07/21/17 04:21 Troponin I < 0.03 ng/mL (<0.03) 07/20/17 09:09 B-Natriuretic Peptide 81 pg/ml (<=100) 07/19/17 17:40 Triglycerides 427 mg/dL (35-160) H 07/20/17 05:15 Cholesterol 179 mg/dL (<200) 07/20/17 05:15 LDL Cholesterol Direct 83 mg/dl (<130) 07/20/17 05:15 HDL Cholesterol 41 mg/dL (29-89) 07/20/17 05:15 Cholesterol/HDL Ratio 4.37 07/20/17 05:15 Home Medications: Amitriptyline HCl 100 mg PO BEDTIME 01/09/16 Fenofibrate 160 mg PO DAILY 01/09/16 Liraglutide [Victoza 2-Raghu] 1.8 mg SQ BEDTIME 01/09/16 Insulin Lispro [Humalog Kwikpen] See Protocol SQ TID 08/22/16 Duloxetine HCl [Cymbalta] 30 mg PO DAILY 07/19/17 Insulin Glargine,Hum.rec.anlog [Toujeo Aracelisostar] 50 unit SQ DAILY 07/19/17 Liraglutide [Victoza 2-Raghu] 1.8 mg SQ DAILY 07/19/17 traMADol HCL [Ultram*] 50 mg PO Q6H PRN 07/19/17 Ferrous Sulfate [Iron] 325 mg PO BID #60 tablet 07/21/17 Furosemide [Lasix*] 40 mg PO DAILY #30 tab 07/21/17 Pantoprazole [Protonix Tab*] 40 mg PO DAILY #40 tab 07/21/17 New Medications: Ferrous Sulfate [Iron] 325 mg PO BID #60 tablet Furosemide [Lasix*] 40 mg PO DAILY #30 tab Pantoprazole [Protonix Tab*] 40 mg PO DAILY #40 tab Patient Discharge Instructions: 1. Patient will need a follow up with her PCP in 1 week to follow up this hospitalization. 2. Patient presented with weakness, pulmonary edema, and lower extremity edema. This was likely related to medication and with her chronic renal disease. At discharge, medication- Gralise will be discontinued. Patient will continue with a 1500 cc per day fluid restriction. Patient will continue with Lasix 40 mg 1 pill once daily. She is to monitor her weight daily. If her weight increases by more than 5 lb she is to contact nephrology for further recommendation. 3. Patient has chronic renal disease. Recommendation is to maintain a 1500 cc per day fluid restriction. Recommendation to recheck lab-BMP in 1-2 weeks to follow up this hospitalization. Recommendation is for the patient to follow up with Nephrology to further monitor and address. 4. Patient has diabetes. Hemoglobin A1c 6.6. Patient will continue with her insulin regimen-Toujeo and other medication. Recommendation is to maintain blood sugars less 140 fasting and less than 200 after meals. Further adjustment can be done by her PCP. 5. Patient has hyperlipidemia. She will continue with Fenofibrate 160 mg daily. 6. Patient likely has GERD. Patient will continue with Protonix 40 mg 1 pill once daily. 7. Patient has chronic pain with neuropathy. Patient will continue with Cymbalta and Elavil. As mentioned above. Medication-Gralise will be discontinued. 8. Patient may have underlying obstructive sleep apnea. Recommendation is for the patient to follow up with pulmonology as an outpatient to further evaluate and assess. 9. Patient has anemia. Iron deficiency noted. She will continue with iron supplementation 325 mg 1 pill twice daily. Recommendation is to recheck CBC in 2-4 weeks to monitor progress. Recommendation is also for the patient to see GI as an outpatient to further evaluate. Patient may require EGD and colonoscopy to further assess. Diet: Renal Activity: Ad brenden Followup: Jean-Paul Cameron DO [Primary Care Provider] - 1-2 Weeks (Call for appointment) Time spent managing pt's care (in minutes): 55
--- NOTE | 2017-07-21 21:23 | P.PN ---
Date of Service: 07/21/17 Vital Signs Temp Pulse Resp BP Pulse Ox 97.7 F 70 16 151/70 H 94 07/21/17 08:00 07/21/17 08:50 07/21/17 08:00 07/21/17 08:50 07/21/17 08:00 Microbiology Results 07/20/17 02:00 Clean Catch Urine [place] Count - Preliminary >100,000 CFU/ML. 07/20/17 02:00 Clean Catch Urine - Preliminary Assessment/ Plan: Nephrology. Feeling better today. CPS stable without CP or SOB. No acute events overnight. Vitals, medications, blood work and imaging reviewed in the chart. General: In no apparent distress, Oriented x3, Cooperative HEENT: Atraumatic Neck: Supple Respiratory: Clear to auscultation bilaterally, Normal air movement Cardiovascular: Regular rate/rhythm, Edema Gastrointestinal: Soft and benign, Non-distended Musculoskeletal: No clubbing, No contractures Integumentary: No rashes, No cyanosis Neurological: Normal speech Laboratory Data (last 24 hrs) 07/19/17 17:40: B-Natriuretic Peptide 81 07/19/17 17:10: PT 11.9, INR 1.01 07/19/17 17:10: WBC 6.3, Hgb 7.8 L*, Hct 23.4 L D, Plt Count 258 D 07/19/17 17:10: Sodium 132 L, Potassium 4.2, BUN 46 H, Creatinine 3.00 H, Glucose 147 H, Magnesium 2.4 D Imagings Data: EXAM DESCRIPTION: Cece Single View07/19/2017 4:56 pm CLINICAL HISTORY: sob COMPARISON: June 2017 FINDINGS: The lungs appear clear of acute infiltrate. The heart is normal size IMPRESSION: No acute abnormalities displayed Conclusions/Impression: A/ OMAR/ CKD IV. Hyponatremia. DM II with neuropathy and CKD. Anemia in chronic illness. Iron deficiency. HTN with CKD. P/ Continue current POC and Medications. Continue Lasix. Agree with stopping gabapentin. No NSAIDs. AM labs. Daily weight.
== END 2017-07-21 11:47 | disposition home or self-care (01) | DRG 206 ==
LOC: ER 15:51 → ERHOLD 18:02 → 2ND 19:45 → OBSVTOIN 07-20 18:02
PROVIDERS: ADMIT Family Medicine; ATTEND Family Medicine
DX: J70.2 Acute drug-induced interstitial lung disorders (principal); N18.4 Chronic kidney disease, stage 4 (severe); E87.1 Hypo-osmolality and hyponatremia; N17.9 Acute kidney failure, unspecified; I12.9 Hypertensive chronic kidney disease with stage 1 through stage 4 chronic kidney disease, or unspecified chronic kidney disease; E11.22 Type 2 diabetes mellitus with diabetic chronic kidney disease; Z79.4 Long term (current) use of insulin; T42.6X5A Adverse effect of other antiepileptic and sedative-hypnotic drugs, initial encounter; Y92.009 Unspecified place in unspecified non-institutional (private) residence as the place of occurrence of the external cause; D51.9 Vitamin B12 deficiency anemia, unspecified; K21.9 Gastro-esophageal reflux disease without esophagitis; G89.29 Other chronic pain; E78.5 Hyperlipidemia, unspecified; E11.40 Type 2 diabetes mellitus with diabetic neuropathy, unspecified
CPT/HCPCS: 36415; 71045; 72070; 72100; 80048; 80061; 81003; 81015; 82550; 82553; 82607; 82728; 82962; 83036; 83540; 83735; 83880; 84100; 84439; 84443; 84466; 84484; 84550; 85025; 85610; 87077; 87086; 87088; 87186; 93005; 93306; 96374; 99285; G0378; J1650

== ENCOUNTER 2017-07-24 08:55 | Emergency (ER) | payer BC ==
--- NOTE | 2017-07-24 10:04 | RAD REPORT ---
EXAM DESCRIPTION: Cece Urena (2 Views)07/24/2017 9:44 am CLINICAL HISTORY: sob COMPARISON: July 19 2017 FINDINGS: The lungs appear clear of acute infiltrate. The heart is normal size IMPRESSION: No acute abnormalities displayed
[2017-07-24] MEDS ORDERED: FUROSEMIDE 40 MG/4 ML VIAL ONE (10:20)
[2017-07-24 10:21] LABS: Absolute Lymphocytes (CBC) 0.9 K/uL (0.7-4.9); Absolute Monocytes 0.4 K/uL (0.1-1.3); Absolute Neutrophil 3.7 K/uL (1.8-8.0); Basophils % 1.1 % (0-1.3); Eosinophils % 6.3 % (0-4.4); Hematocrit 32.2 % (36.0-45.0); Lymphocytes % 17.1 % (15.3-44.8); MCV 86.6 fL (80-100); Monocytes % 7.9 % (3.3-12.3); RBC Red Blood Cell Count 3.71 M/uL (3.86-4.86)
[2017-07-24 10:26] LABS: Potassium 4.5 mEq/L (3.6-5.0)
[2017-07-24 10:30] LABS: Magnesium 1.8 mg/dL (1.8-2.5)
[2017-07-24 10:41] LABS: CKMB Creatine Kinase MB 5.7 ng/ml (0.3-4.0)
[2017-07-24] MEDS ORDERED: CEFTRIAXONE/SWI 1gm 1 GM/10 ML SYR ONE (11:03)
[2017-07-24] MEDS ORDERED: NA CHLORIDE 0.9% 500 ML ONE (11:25)
[2017-07-24 11:33] LABS: Urine Blood 2+ (NEG); Urine Glucose 1+ (NEG); Urine Protein 3+ (NEG); Urine Specific Gravity 1.025 (1.005-1.030)
[2017-07-24 11:46] LABS: Blood Morphology Comment NOT SEEN (NOT SEEN); Platelet Estimate ADEQ
--- NOTE | 2017-07-24 11:46 | ER ---
Nurse's Notes [facility] Name: Emily Barbour Age: 46 yrs Sex: Female : 1970 Arrival Date: 07/24/2017 Time: 08:58 Bed 13 Private MD: Jean-Paul Cameron Diagnosis: Dyspnea, unspecified;Muscle weakness (generalized);Urinary tract infection, site not specified Presentation: 07/24 09:08 Presenting complaint: Patient states: "I was admitted last week for CHF and was rb1 discharged on . I still feel weak and I haven't been able to go back to work yet.". Transition of care: patient was not received from another setting of care. Onset of symptoms is unknown. Care prior to arrival: None. 09:08 Method Of Arrival: Ambulatory rb1 09:08 Acuity: [place] 3 rb1 Triage Assessment: :08 The onset of the patients symptoms was at an unknown time. General: Appears in no rb1 apparent distress. comfortable, Behavior is calm, cooperative, Reports chills for >3 days, Denies fever. Neuro: Level of Consciousness is awake, alert, obeys commands, Oriented to person, place, time, situation, Genetics Nurse are equal bilaterally Moves all extremities. Gait is steady, Speech is normal, Facial symmetry appears normal, Pupils are PERRLA, Reports weakness in generalized. Cardiovascular: Capillary refill < 3 seconds is brisk in bilateral fingers. Respiratory: Reports cough that is Airway is patent Respiratory effort is even, unlabored, Respiratory pattern is regular, symmetrical. GI: Reports diarrhea. : No signs and/or symptoms were reported regarding the genitourinary system. Derm: Skin is pink, warm \\T\\ dry. Musculoskeletal: Range of motion: intact in all extremities. 09:08 Pain: Denies pain. 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/A - Hysterectomy rb1 Historical: - Allergies: 09:08 Benadryl; rb1 09:08 metformin; rb1 09:08 Tradjenta; rb1 - Home Meds: 09:08 Amitriptyline Oral [Active]; Cymbalta 20 mg Oral cpDR 1 cap daily [Active]; fenofibrate rb1 Oral [Active]; gabapentin Oral [Active]; Humalog Sub-Q [Active]; Sodium Bicarbonate Oral [Active]; Toujeo SoloStar 300 unit/mL (1.5 mL) subcutaneous inpn [Active]; Tramadol Oral [Active]; Victoza 3-Raghu subcutaneous [Active]; - PMHx: 09:08 Anemia; Diabetes - NIDDM; High Cholesterol; Hypertension; Renal Disease; Tendonitis in rb1 Elbows; - PSHx: 09:08 Hysterectomy; Appendectomy; Cholecystectomy; rb1 - Immunization history:: Adult Immunizations up to date. - Social history:: Smoking status: Patient/guardian denies using tobacco, the patient reports quitting approximately 4 years ago. - Family history:: not pertinent. - Hospitalizations: : The patient was recently seen at [facility], and discharged 3 day(s) ago. - History obtained from: Old Medical Record. Screenin:08 Abuse screen: Denies threats or abuse. Nutritional screening: No deficits noted. rb1 Tuberculosis screening: No symptoms or risk factors identified. Fall Risk None identified. Assessment: 09:08 General: See triage assessment. rb1 10:00 Reassessment: Patient appears in no apparent distress at this time. No changes from rb1 previously documented assessment. 11:00 Reassessment: Patient appears in no apparent distress at this time. Patient and/or rb1 family updated on plan of care and expected duration. Pain level reassessed. Patient is alert, oriented x 3, equal unlabored respirations, skin warm/dry/pink. Patient denies pain at this time. 11:28 Reassessment: Patient appears in no apparent distress at this time. No changes from rb1 previously documented assessment. Vital Signs: 09:08 BP 155 / 83; Pulse 103; Resp 18; Temp 98.6(O); Pulse Ox 100% on R/A; Weight 94.57 kg rb1 (M); Height 5 ft. 5 in. (165.10 cm); Pain 0/10; 09:30 BP 133 / 83; Pulse 102; Resp 23 S; Pulse Ox 100% on R/A; rb1 10:30 BP 139 / 77; Pulse 97; Resp 20; Pulse Ox 100% on R/A; Pain 0/10; rb1 11:29 BP 149 / 89; Pulse 98; Resp 20; Pulse Ox 100% on R/A; rb1 09:08 Body Mass Index 34.70 (94.57 kg, 165.10 cm) [facility] ED Course: :58 Patient arrived in ED. as 08:58 Aglieco, Jean-Paul, DO is Private Physician. as 09:00 Alejandrina Chang F[facility] kav 09:00 Destin Snyder MD is Attending Physician. kav 09:07 Agustina Segundo, RN is Primary Nurse. rb1 09:08 Arm band placed on right wrist. rb1 09:08 Patient has correct armband on for positive identification. Placed in gown. Bed in low rb1 position. Call light in reach. Side rails up X 1. installation superintendent on. Pulse ox on. NIBP on. 09:10 Triage completed. rb1 09:42 XRAY Chest Pa And Lat (2 Views) In Process Unspecified. EDMS 11:46 Jean-Paul Cameron DO is Referral Physician. kav 11:46 Ankit Simmons MD is Referral Physician. kav 12:09 IV discontinued, intact, bleeding controlled, No redness/swelling at site. Pressure rb1 dressing applied. 12:13 No provider procedures requiring assistance completed. rb1 Administered Medications: 10:04 Drug: Lasix 40 mg Route: IVP; Site: right antecubital; rb1 10:30 Follow up: Response: No adverse reaction; Blood pressure is unchanged rb1 10:41 Drug: Rocephin - (cefTRIAXone) 1 grams Route: IVPB; Infused Over: 30 mins; Site: right rb1 antecubital; 11:09 Follow up: Response: No adverse reaction rb1 11:09 Follow up: IV Status: Completed infusion rb1 11:09 Drug: NS 0.9% 500 ml Route: IV; Rate: bolus; Site: right antecubital; rb1 11:40 Follow up: IV Status: Completed infusion rb1 Outcome: 11:46 Discharge ordered by . kav 12:09 Discharged to home ambulatory. rb1 12:09 Condition: stable 12:09 Discharge instructions given to patient, Instructed on discharge instructions, follow up and referral plans. medication usage, Demonstrated understanding of instructions, follow-up care, medications, Prescriptions given X 2. 12:09 Patient left the ED. rb1 Signatures: Dispatcher [employer] EDMN Alejandrina Chang FNP SOCIAL MEDIA DEVELOPER Clara Calderon as Agustina Segundo, RN RN rb1 Corrections: (The following items were deleted from the chart) 12:14 12:13 IV discontinued, intact, bleeding controlled, No redness/swelling at site. rb1 Pressure dressing applied, rb1 12:17 12:15 Patient left the ED. rb1 rb1
--- NOTE | 2017-07-24 11:47 | EDPHYS ---
Physician Documentation [facility] Name: Emily Barbour Age: 46 yrs Sex: Female : 1970 Arrival Date: 07/24/2017 Time: 08:58 Bed 13 Private MD: Jean-Paul Cameron ED Physician Destin Snyder HPI: 07/24 09:00 This 46 yrs old Female presents to ER via Unassigned with complaints of kav Weakness. 09:34 The patient has shortness of breath with light activity. Onset: The symptoms/episode kav began/occurred acutely, this morning. Duration: The symptoms are intermittent, with no pattern. The patient's shortness of breath has no apparent modifying factors. Associated signs and symptoms: Pertinent positives: non-productive cough. Severity of symptoms: At their worst the symptoms were mild just prior to arrival, this morning. The patient has experienced a previous episode, approximately 2 days ago. The patient has been recently seen by a physician: The patient has been recently been admitted at [facility], was discharged from the hospital July 22, 2017. 09:41 Patient recently admitted to this hospital on 07/20/17 DX: Dyspnea, Pulmonary Edema, kav CHF, CKD, DM, HLD< HTN, Chronic Anemia, GERD. She was gently diuresed during her hospital stay. She was discharged to home on 07/21/17 with a fluid restriction of 1500 ml per day and with prescription for Lasix 40 mg po q daily. She was advised to f/u with Nephrology to rechedk lab: BMP in 1-2 weeks. She was advised to f/u with pulmonology for DX: Obstructive sleep Apnea. She was recommended to f/u with gastroenterology in 2-4 weeks to recheck CBC for DX: Chronic Anemia. She was advised to f/u with pcp in 1 week for post-hospital evaluation and treatment. She was prescribed the following medications at discharge to home: Ferrous Sulfate 325 mg po bid, Lasix 40 mg po q daily and Protonix 40 mg po q daily. She reports taking a diuretic medication: Bumex 0.5 mg po q daily. However, she reports that she has not picked up her prescription for Lasix. She has There is no edema to ble.. 10:52 Baseline creatinine 2.0. pmhx: ckd stage iv. 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 . 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 N/A - Hysterectomy rb1 Historical: - Allergies: 09:08 Benadryl; rb1 09:08 metformin; rb1 09:08 Tradjenta; rb1 - Home Meds: 09:08 Amitriptyline Oral [Active]; Cymbalta 20 mg Oral cpDR 1 cap daily [Active]; fenofibrate rb1 Oral [Active]; gabapentin Oral [Active]; Humalog Sub-Q [Active]; Sodium Bicarbonate Oral [Active]; Toujeo SoloStar 300 unit/mL (1.5 mL) subcutaneous inpn [Active]; Tramadol Oral [Active]; Victoza 3-Raghu subcutaneous [Active]; - PMHx: :08 Anemia; Diabetes - NIDDM; High Cholesterol; Hypertension; Renal Disease; Tendonitis in rb1 Elbows; - PSHx: 09:08 Hysterectomy; Appendectomy; Cholecystectomy; rb1 - Immunization history:: Adult Immunizations up to date. - Social history:: Smoking status: Patient/guardian denies using tobacco, the patient reports quitting approximately 4 years ago. - Family history:: not pertinent. - Hospitalizations: : The patient was recently seen at [facility], and discharged 3 day(s) ago. - History obtained from: Old Medical Record. ROS: 09:54 Constitutional: Negative for fever, chills, and weight loss, Eyes: Negative for injury, kav pain, redness, and discharge, ENT: Negative for injury, pain, and discharge, Neck: Negative for injury, pain, and swelling, Cardiovascular: Negative for chest pain, palpitations, and edema, Abdomen/GI: Negative for abdominal pain, nausea, vomiting, diarrhea, and constipation, Back: Negative for injury and pain, : Negative for injury, bleeding, discharge, and swelling, MS/Extremity: Negative for injury and deformity, Skin: Negative for injury, rash, and discoloration, Neuro: Negative for headache, weakness, numbness, tingling, and seizure, Psych: Negative for depression, anxiety, suicide ideation, homicidal ideation, and hallucinations, Allergy/Immunology: Negative for hives, rash, and allergies, Endocrine: Negative for neck swelling, polydipsia, polyuria, polyphagia, and marked weight changes, Hematologic/Lymphatic: Negative for swollen nodes, abnormal bleeding, and unusual bruising. 09:54 Respiratory: Positive for shortness of breath, on exertion. Exam: 09:54 Constitutional: This is a well developed, well nourished patient who is awake, alert, kav and in no acute distress. Head/Face: Normocephalic, atraumatic. Eyes: Pupils equal round and reactive to light, extra-ocular motions intact. Lids and lashes normal. Conjunctiva and sclera are non-icteric and not injected. Cornea within normal limits. Periorbital areas with no swelling, redness, or edema. ENT: Nares patent. No nasal discharge, no septal abnormalities noted. Tympanic membranes are normal and external auditory canals are clear. Oropharynx with no redness, swelling, or masses, exudates, or evidence of obstruction, uvula midline. Mucous membranes moist. Neck: Trachea midline, no thyromegaly or masses palpated, and no cervical lymphadenopathy. Supple, full range of motion without nuchal rigidity, or vertebral point tenderness. No Meningismus. Chest/axilla: Normal chest wall appearance and motion. Nontender with no deformity. No lesions are appreciated. Cardiovascular: Regular rate and rhythm with a normal S1 and S2. No gallops, murmurs, or rubs. Normal PMI, no JVD. No pulse deficits. Abdomen/GI: Soft, non-tender, with normal bowel sounds. No distension or tympany. No guarding or rebound. No evidence of tenderness throughout. Back: No spinal tenderness. No costovertebral tenderness. Full range of motion. Skin: Warm, dry with normal turgor. Normal color with no rashes, no lesions, and no evidence of cellulitis. MS/ Extremity: Pulses equal, no cyanosis. Neurovascular intact. Full, normal range of motion. Neuro: Awake and alert, GCS 15, oriented to person, place, time, and situation. Cranial nerves II-XII grossly intact. Motor strength 5/5 in all extremities. Sensory grossly intact. Cerebellar exam normal. Normal gait. Psych: Awake, alert, with orientation to person, place and time. Behavior, mood, and affect are within normal limits. 09:54 Respiratory: the patient does not display signs of respiratory distress, Respirations: normal, no acute changes, Breath sounds: decreased breath sounds, that are mild, are located in both bases. Vital Signs: 09:08 BP 155 / 83; Pulse 103; Resp 18; Temp 98.6(O); Pulse Ox 100% on R/A; Weight 94.57 kg rb1 (M); Height 5 ft. 5 in. (165.10 cm); Pain 0/10; 09:30 BP 133 / 83; Pulse 102; Resp 23 S; Pulse Ox 100% on R/A; rb1 10:30 BP 139 / 77; Pulse 97; Resp 20; Pulse Ox 100% on R/A; Pain 0/10; rb1 11:29 BP 149 / 89; Pulse 98; Resp 20; Pulse Ox 100% on R/A; rb1 09:08 Body Mass Index 34.70 (94.57 kg, 165.10 cm) rb1 MDM: 09:22 Patient medically screened. kav 11:50 Data reviewed: vital signs, nurses notes, lab test result(s), urinalysis. 07/24 09:27 Order name: Blood Culture Adult (2) 07/24 09:27 Order name: BMP; Complete Time: 10:46 07/24 10:48 Interpretation: Normal except: NA 130; CL 96; GLUC 343; BUN 43; CRE 2.54; GFR 20; CA kav 10.1. 07/24 09:27 Order name: BNP; Complete Time: 11:26 v 07/24 11:26 Interpretation: Within normal limits. 07/24 09:27 Order name: CBC with Diff; Complete Time: 11:47 v 07/24 11:18 Interpretation: WBC 5.5; RBC 3.71; HGB 10.8; HCT 32.2; PLT 306; RDW 15.8; EOSINOPHIL % kav 6.3. 07/24 09:27 Order name: Ckmb; Complete Time: 10:47 v 07/24 10:48 Interpretation: Abnormal: CKMB 5.7. 07/24 09:27 Order name: CPK; Complete Time: 10:47 v 07/24 10:48 Interpretation: Within normal limits. 07/24 09:27 Order name: XRAY Chest Pa And Lat (2 Views); Complete Time: 10:47 v 07/24 10:47 Interpretation: No acute disease. 07/24 09:27 Order name: Magnesium; Complete Time: 10:47 kav 07/24 10:48 Interpretation: Within normal limits. v 07/24 09:27 Order name: Troponin (emerg Dept Use Only); Complete Time: 10:47 kav 07/24 10:48 Interpretation: Within normal limits. kav 07/24 10:35 Order name: Urine Dipstick--Ancillary (enter results); Complete Time: 11:46 bd 07/24 11:46 Interpretation: Normal except: UGLUC 1+; UBLD 2+; UESTR 3+; UPROT 3+; Leuk estrace. kav 07/24 11:46 Order name: Manual Differential; Complete Time: 11:47 EDMS 07/24 11:47 Interpretation: Normal except: BANDS [F] 8; EOS 4; META 1. kav 07/24 09:27 Order name: EKG; Complete Time: 09:27 kav 07/24 09:27 Order name: Cardiac monitoring; Complete Time: 09:29 kav 07/24 09:27 Order name: EKG - Nurse/Tech; Complete Time: 10:04 kav 07/24 09:27 Order name: IV Saline Lock; Complete Time: 09:58 kav 07/24 09:27 Order name: Labs collected and sent; Complete Time: 09:58 kav 07/24 09:27 Order name: O2 Per Protocol; Complete Time: 09:29 kav 07/24 09:27 Order name: O2 Sat Monitoring; Complete Time: 09:29 kav Administered Medications: 10:04 Drug: Lasix 40 mg Route: IVP; Site: right antecubital; rb1 10:30 Follow up: Response: No adverse reaction; Blood pressure is unchanged rb1 10:41 Drug: Rocephin - (cefTRIAXone) 1 grams Route: IVPB; Infused Over: 30 mins; Site: right rb1 antecubital; 11:09 Follow up: Response: No adverse reaction rb1 11:09 Follow up: IV Status: Completed infusion rb1 11:09 Drug: NS 0.9% 500 ml Route: IV; Rate: bolus; Site: right antecubital; rb1 11:40 Follow up: IV Status: Completed infusion rb1 Disposition: 16:11 Co-signature as Attending Physician, Destin Snyder MD. rn Disposition: 07/24/17 11:46 Discharged to Home. Impression: Dyspnea, unspecified, Muscle weakness (generalized), Urinary tract infection, site not specified. - Condition is Stable. - Discharge Instructions: Shortness of Breath, Fyzs-bi-Guor, Urinary Tract Infection, [id number], Weakness, Cyzl-ci-Mmtf. - Prescriptions for Cipro 500 mg Oral Tablet - take 1 tablet by ORAL route every 12 hours for 10 days; 20 tablet. Lasix 40 mg Oral Tablet - take 1 tablet by ORAL route once daily for 30 days; 30 tablet. - Medication Reconciliation Form, Thank You Letter, Antibiotic Education, Prescription Opioid Use, Work release form form. - Follow up: Jean-Paul Cameron; When: 1 - 2 days; Reason: Recheck today's complaints, Continuance of care, Re-evaluation by your physician. Follow up: Ankit Simmons; When: 1 week; Reason: Recheck today's complaints, Continuance of care, Re-evaluation by your physician, DX: Congestive Heart Failure. - Problem is new. - Symptoms have improved. - Notes: citrus picker prescriptions and take as directed 1500 cc fluid restriction Signatures: Dispatcher [employer] EDAlejandrina Zapata, PARK ATTENDANT PARK ATTENDANT Destin Busch MD MD rn Agustina Segundo RN RN rb1 Corrections: (The following items were deleted from the chart) 10:48 10:47 Abnormal. ka kav 10:48 10:48 Normal except: NA 130; CL 96; GLUC 343; BUN 43; CRE 2.54; GFR 20. [facility] kav 11:18 11:18 Normal except: WBC 5.5; RBC 3.71; HGB 10.8; HCT 32.2; PLT 306; RDW 15.8; kav EOSINOPHIL % 6.3. kav 11:46 10:49 Abnormal: Leuk estrace. [facility] kav 12:09 11:50 UA MICROSCOPIC+U.LAB.BRZ ordered. EDMS EDMS 12:09 11:50 Urine Culture+BA.LAB.BRZ ordered. EDMS EDMS
[2017-07-24 12:19] VITALS: TEMP 98.6; O2SAT 100
[2017-07-24 12:23] VITALS: BP 149/89
--- NOTE | 2017-07-25 06:30 | EKG ---
Test Date: 2017-07-24 Test Time: 10:03:35 Access Analyst: ITZEL MEASUREMENT RESULTS: Intervals: Rate: 98 DE: 146 QRSD: 136 QT: 402 QTc: 513 [place]: P: 49 DE: 146 QRS: -90 T: 35 INTERPRETIVE STATEMENTS: Normal sinus rhythm Right bundle branch block Abnormal ECG Compared to ECG 07/19/2017 16:52:48 Left anterior fascicular block no longer present Bifascicular block no longer present Electronically Signed On 07-25-17 06:29:18 CDT by Magdiel Keith
== END 2017-07-24 12:15 | disposition home or self-care (01) ==
LOC: ER 08:55
DX: N39.0 Urinary tract infection, site not specified (principal); M62.81 Muscle weakness (generalized); N28.9 Disorder of kidney and ureter, unspecified; I10 Essential (primary) hypertension; E11.9 Type 2 diabetes mellitus without complications; E78.00 Pure hypercholesterolemia, unspecified; Z79.4 Long term (current) use of insulin; Z88.8 Allergy status to other drugs, medicaments and biological substances; Z87.891 Personal history of nicotine dependence
CPT/HCPCS: 36415; 71046; 80048; 81003; 82550; 82553; 83735; 83880; 84484; 85025; 87040; 93005; 96361; 96365; 96375; 99284; J0696

== ENCOUNTER 2017-08-30 10:24 | Emergency (ER) | payer BC ==
--- NOTE | 2017-08-30 11:19 | RAD REPORT ---
EXAM DESCRIPTION: RAD - Chest Single View - 08/30/2017 11:09 am CLINICAL HISTORY: Shortness of breath COMPARISON: 07/24/2017 FINDINGS: Portable technique limits examination quality. The lungs are grossly clear. The heart is normal in size. No displaced fractures. IMPRESSION: No acute intrathoracic process suspected.
[2017-08-30] MEDS ORDERED: FAMOTIDINE 20 MG/2 ML VIAL IV ONE (11:43)
[2017-08-30] MEDS ORDERED: ONDANSETRON 4 MG/2 ML VIAL ONE (11:43)
[2017-08-30 11:47] LABS: Absolute Lymphocytes (CBC) 0.4 K/uL (0.7-4.9); Absolute Monocytes 0.4 K/uL (0.1-1.3); Absolute Neutrophil 8.9 K/uL (1.8-8.0); Basophils % 0.3 % (0-1.3); Eosinophils % 0.6 % (0-4.4); Hematocrit 31.2 % (36.0-45.0); Lymphocytes % 4.1 % (15.3-44.8); MCH 28.9 pg (27.0-35.0); MCV 86.3 fL (80-100); MPV 8.9 fL (7.6-11.3); Monocytes % 3.7 % (3.3-12.3); RBC Red Blood Cell Count 3.62 M/uL (3.86-4.86)
[2017-08-30 11:55] LABS: Protime INR 0.99
[2017-08-30 12:07] LABS: Potassium 4.7 mEq/L (3.6-5.0)
[2017-08-30 12:13] LABS: Albumin 4.3 g/dL (3.2-5.5); Bilirubin Direct 0.1 mg/dL (0-0.2); Bilirubin Total 0.6 mg/dL (0.3-1.2); Protein, Total 9.1 g/dL (6.0-8.3)
[2017-08-30 12:14] LABS: Blood Morphology Comment NOT SEEN (NOT SEEN); Platelet Estimate ADEQ; Urine White Blood Cell Casts OK
[2017-08-30 12:16] LABS: CKMB Creatine Kinase MB 2.9 ng/ml (0.3-4.0); Magnesium 1.5 mg/dL (1.8-2.5)
[2017-08-30 12:58] LABS: Urine Blood TRACE (NEG); Urine Glucose 2+ (NEG); Urine Protein 3+ (NEG); Urine pH 6.5 (5.0-7.0)
[2017-08-30] MEDS ORDERED: Magnesium Sulfate 2gm IVPB 2 G/50 ML BAG IV ONE (13:11)
[2017-08-30] MEDS ORDERED: DEXAMETHASONE 10 MG/ML VIAL ONE (13:11)
[2017-08-30] MEDS ORDERED: METOCLOPRAMIDE 10 MG/2mL INJ ONE (13:11)
[2017-08-30] MEDS ORDERED: ALBUTEROL 2.5 MG/3 ML NEB SOL ONE (13:38)
[2017-08-30] MEDS ORDERED: INSULIN -REGULAR HUMAN 50 UNIT/0.5 ML ML ONE (13:38)
[2017-08-30] MEDS ORDERED: LORazepam 2 MG/ML VIAL ONE (13:43)
--- NOTE | 2017-08-30 14:29 | EDPHYS ---
Physician Documentation [facility] Name: Emily Barbour Age: 46 yrs Sex: Female : 1970 Arrival Date: 08/30/2017 Time: 10:25 Bed 26 Private MD: Jean-Paul Cameron ED Physician Darrick Rey HPI: 08/30 10:55 This 46 yrs old Female presents to ER via Ambulatory with complaints of cp Shortness Of Breath, Vomiting. 10:55 The patient has shortness of breath with light activity. cp 10:55 Onset: The symptoms/episode began/occurred today. Duration: The symptoms are cp continuous. Associated signs and symptoms: Pertinent positives: nausea, vomiting, diarrhea, Pertinent negatives: chest pain, productive cough, diaphoresis, dizziness, fever, hemoptysis. Severity of symptoms: in the emergency department the symptoms are unchanged despite home interventions. 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 ph Historical: - Allergies: 10:41 Benadryl; ph 10:41 metformin; ph 10:41 Tradjenta; ph - Home Meds: 10:41 Amitriptyline Oral [Active]; Cymbalta 20 mg Oral cpDR 1 cap daily [Active]; fenofibrate ph Oral [Active]; gabapentin Oral [Active]; Humalog Sub-Q [Active]; Sodium Bicarbonate Oral [Active]; Toujeo SoloStar 300 unit/mL (1.5 mL) subcutaneous inpn [Active]; Tramadol Oral [Active]; Victoza 3-Raghu subcutaneous [Active]; - PMHx: 10:41 Anemia; Diabetes - NIDDM; High Cholesterol; Hypertension; Renal Disease; Tendonitis in ph Elbows; - PSHx: 10:41 Hysterectomy; Appendectomy; Cholecystectomy; ph - Social history:: Smoking status: Patient/guardian denies using tobacco. ROS: 11:00 Constitutional: Negative for body aches, chills, fever, poor PO intake. cp 11:00 Eyes: Negative for injury, pain, redness, and discharge. cp 11:00 ENT: Negative for drainage from ear(s), ear pain, sore throat, difficulty swallowing, cp difficulty handling secretions. 11:00 Cardiovascular: Negative for chest pain, edema, palpitations. cp 11:00 Respiratory: Positive for shortness of breath, Negative for cough, wheezing. 11:00 Abdomen/GI: Positive for nausea, vomiting, and diarrhea, Negative for abdominal pain, anorexia, dysphagia. 11:00 Back: Negative for pain at rest, pain with movement, radiated pain. 11:00 : Negative for urinary symptoms. 11:00 Skin: Negative for cellulitis, rash. 11:00 Neuro: Negative for altered mental status, dizziness, headache, weakness. 11:00 All other systems are negative. Exam: 11:12 Constitutional: The patient appears in no acute distress, alert, awake, cp non-diaphoretic, non-toxic, well developed, well nourished. 11:12 Head/Face: Normocephalic, atraumatic. cp 11:15 Eyes: Pupils equal round and reactive to light, extra-ocular motions intact. Lids and cp lashes normal. Conjunctiva and sclera are non-icteric and not injected. Cornea within normal limits. Periorbital areas with no swelling, redness, or edema. ENT: Nares patent. No nasal discharge, no septal abnormalities noted. Tympanic membranes are normal and external auditory canals are clear. Oropharynx with no redness, swelling, or masses, exudates, or evidence of obstruction, uvula midline. Mucous membranes moist. Neck: Trachea midline, no thyromegaly or masses palpated, and no cervical lymphadenopathy. Supple, full range of motion without nuchal rigidity, or vertebral point tenderness. No Meningismus. 11:15 Chest/axilla: Inspection: normal, Palpation: is normal, no crepitus, no tenderness. cp 11:15 Cardiovascular: Rate: tachycardic, Rhythm: regular, Pulses: Pulses are 2+ in right radial artery and left radial artery. Edema: is not appreciated, JVD: is not appreciated. 11:15 Respiratory: the patient does not display signs of respiratory distress, Respirations: normal, no use of accessory muscles, no retractions, no splinting, no tachypnea, labored breathing, is not present, Breath sounds: are clear throughout, no decreased breath sounds, no stridor, no wheezing. 11:15 Abdomen/GI: Inspection: obese Bowel sounds: active, all quadrants, Palpation: abdomen is soft and non-tender, in all quadrants, rebound tenderness, voluntary guarding, is not appreciated, involuntary guarding, is not appreciated. 11:15 Back: pain, is absent, ROM is normal. 11:15 Skin: cellulitis, is not appreciated, no rash present. 11:15 Neuro: Orientation: to person, place \T\ time. Mentation: lucid, able to follow commands, Cerebellar function: is grossly normal, Motor: moves all fours, strength is normal, Sensation: no obvious gross deficits. Vital Signs: 10:39 BP 147 / 92; Pulse 119; Resp 28; Temp 97.2; Pulse Ox 100% on R/A; Weight 93.44 kg; ph Height 5 ft. 5 in. (165.10 cm); Pain 6/10; 11:37 BP 141 / 80; Pulse 112; Resp 20; Pulse Ox 98% on R/A; aj1 12:31 BP 130 / 86; Pulse 70; Resp 18; Pulse Ox 97% on R/A; aj1 13:30 BP 129 / 56; Pulse 102; Resp 20; Pulse Ox 100% on R/A; aj1 14:56 BP 121 / 70; Pulse 102; Resp 18; Pulse Ox 99% ; aj1 10:39 Body Mass Index 34.28 (93.44 kg, 165.10 cm) ph MDM: 10:37 Patient medically screened. cp 11:00 Differential diagnosis: asthma, Bronchitis CHF exacerbation, Chronic Obstructive cp Pulmonary Disease Myocardial Infarction pneumonia, pulmonary edema, Pulmonary Embolism reactive airway disease, Sepsis Unstable Angina. 14:25 Data reviewed: vital signs, nurses notes, lab test result(s), EKG, radiologic studies, cp plain films. 14:27 Counseling: I had a detailed discussion with the patient and/or guardian regarding: the cp historical points, exam findings, and any diagnostic results supporting the discharge/admit diagnosis, lab results, radiology results, the need for outpatient follow up, a family practitioner, to return to the emergency department if symptoms worsen or persist or if there are any questions or concerns that arise at home. 08/30 10:52 Order name: Basic Metabolic Panel; Complete Time: 12:46 cp 08/30 12:47 Interpretation: Normal except: NA 129; CL 92; GLUC 320; BUN 39; CRE 2.32; GFR 23. cp 08/30 10:52 Order name: BNP; Complete Time: 13:08 cp 08/30 10:52 Order name: CBC with Diff; Complete Time: 12:46 cp 15 12:47 Interpretation: Normal except: RBC 3.62; HGB 10.5; HCT 31.2; SESAR% 91.3; LYM% 4.1; NEUT cp A 8.9; LYMA 0.4. 08/30 10:52 Order name: Ckmb; Complete Time: 12:46 cp 08/30 10:52 Order name: CPK; Complete Time: 12:47 cp 08/30 10:52 Order name: LFT's; Complete Time: 12:46 cp 08/30 10:52 Order name: Magnesium; Complete Time: 12:46 cp 08/30 10:52 Order name: PT-INR; Complete Time: 12:47 cp 08/30 10:52 Order name: Ptt, Activated; Complete Time: 12:47 cp 08/30 10:52 Order name: Troponin (emerg Dept Use Only); Complete Time: 12:47 cp 08/30 10:52 Order name: XRAY Chest (1 view); Complete Time: 12:47 cp 08/30 11:49 Order name: CBC Smear Scan; Complete Time: 12:47 EDMS 08/30 12:10 Order name: Urine Dipstick--Ancillary (enter results); Complete Time: 13:08 em1 08/30 13:08 Interpretation: Normal except: UGLUC 2+; UBLD TRACE; UPROT 3+. cp 08/30 10:52 Order name: Accucheck Blood Glucose; Complete Time: 11:36 cp 08/30 10:52 Order name: EKG; Complete Time: 10:53 cp 08/30 10:52 Order name: Cardiac monitoring; Complete Time: 10:58 cp 08/30 10:52 Order name: EKG - Nurse/Tech; Complete Time: 11:14 cp 08/30 10:52 Order name: IV Saline Lock; Complete Time: 11:35 cp 08/30 10:52 Order name: Labs collected and sent; Complete Time: 11:35 cp 08/30 10:52 Order name: O2 Per Protocol; Complete Time: 10:58 cp 08/30 10:52 Order name: O2 Sat Monitoring; Complete Time: 10:58 cp Administered Medications: 11:52 Drug: Zofran 4 mg Route: IVP; Site: right antecubital; aj1 13:53 Follow up: Response: No adverse reaction aj1 11:53 Drug: Pepcid 20 mg Route: IVP; Site: right antecubital; aj1 13:53 Follow up: Response: No adverse reaction aj1 13:17 Drug: Reglan 10 mg Route: IVP; Site: right antecubital; aj1 13:53 Follow up: Response: No adverse reaction aj1 13:17 Drug: Decadron - Dexamethasone 10 mg Route: IVP; Site: right antecubital; aj1 13:54 Follow up: Response: No adverse reaction aj1 13:17 Drug: Magnesium Sulfate 2 grams Route: IVPB; Infused Over: 2 hrs; Site: right aj1 antecubital; 14:58 Follow up: IV Status: Completed infusion; IV Intake: 50ml aj1 13:52 Drug: Insulin Regular Human 10 units {Co-Signature: ed1 (Cornelia Stover LVN).} Route: IVP; aj1 Site: right antecubital; 14:50 Follow up: Response: No adverse reaction aj1 13:53 Drug: Albuterol 2.5 mg Route: Inhalation; aj1 14:50 Follow up: Response: No adverse reaction aj1 13:54 Drug: Ativan 0.5 mg Route: IVP; Site: right antecubital; aj1 14:50 Follow up: Response: No adverse reaction aj1 Point of Care Testing: Blood Glucose: 11:36 Blood Glucose: 299 mg/dL; aj1 14:56 Blood Glucose: 224 mg/dL; aj1 Ranges: Critical Glucose Levels:Adult <50 mg/dl or >400 mg/dl <40 mg/dl or >180 mg/dl Disposition: 08/31 11:43 Co-signature as Attending Physician, Darrick Rey MD I agree with the assessment and elaina plan of care. Disposition: 08/30/17 14:28 Discharged to Home. Impression: Nausea and vomiting, Hypomagnesemia, Shortness of breath. - Condition is Stable. - Discharge Instructions: Hypomagnesemia, Nausea and Vomiting, Shortness of Breath. - Prescriptions for Zofran 4 mg Oral Tablet - take 1 tablet by ORAL route every 12 hours As needed; 20 tablet. Albuterol Sulfate 90 mcg/actuation - inhale 1-2 puff by INHALATION route every 4-6 hours; 1 Inhaler. - Work release form, Medication Reconciliation Form, Thank You Letter, Antibiotic Education, Prescription Opioid Use form. - Follow up: Jean-Paul Cameron DO; When: 1 - 2 days; Reason: Recheck today's complaints. - Problem is new. - Symptoms have improved. Signatures: Dispatcher [employer] EDMS Colleen Means RN RN aj1 Darrick Rey MD MD cha Hall, Patricia, RN RN Darrick Reyna PA PA cp Erika Riggs [facility] ed1 Corrections: (The following items were deleted from the chart) 08/30 14:59 14:28 08/30/2017 14:28 Discharged to Home. Impression: Nausea and vomiting; aj1 Hypomagnesemia; Shortness of breath. Condition is Stable. Forms are Medication Reconciliation Form, Thank You Letter, Antibiotic Education, Prescription Opioid Use. Follow up: Jean-Paul Cameron; When: 1 - 2 days; Reason: Recheck today's complaints. Problem is new. Symptoms have improved. cp
--- NOTE | 2017-08-30 14:29 | ER ---
Nurse's Notes [facility] Name: Emily Barbour Age: 46 yrs Sex: Female : 1970 Arrival Date: 08/30/2017 Time: 10:25 Bed 26 Private MD: Jean-Paul Cameron Diagnosis: Nausea and vomiting;Hypomagnesemia;Shortness of breath Presentation: 08/30 10:37 Presenting complaint: Patient states: " I have been throwing up and having diarrhea for ph about 3 days and I'm feeling very SOB. I think I'm dehydrated because I lost 7 poundsin one day." Reports hx of CHF, denies fever or abdominal pain, reports headache. Transition of care: patient was not received from another setting of care. Onset of symptoms was August 30, 2017. Initial Sepsis Screen: Does the patient meet any 2 criteria? No. Patient's initial sepsis screen is negative. Does the patient have a suspected source of infection? No. Patient's initial sepsis screen is negative. Care prior to arrival: None. 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 - Hysterectomy ph Historical: - Allergies: 10:41 Benadryl; ph 10:41 metformin; ph 10:41 Tradjenta; ph - Home Meds: 10:41 Amitriptyline Oral [Active]; Cymbalta 20 mg Oral cpDR 1 cap daily [Active]; fenofibrate ph Oral [Active]; gabapentin Oral [Active]; Humalog Sub-Q [Active]; Sodium Bicarbonate Oral [Active]; Toujeo SoloStar 300 unit/mL (1.5 mL) subcutaneous inpn [Active]; Tramadol Oral [Active]; Victoza 3-Raghu subcutaneous [Active]; - PMHx: 10:41 Anemia; Diabetes - NIDDM; High Cholesterol; Hypertension; Renal Disease; Tendonitis in ph Elbows; - PSHx: 10:41 Hysterectomy; Appendectomy; Cholecystectomy; ph - Social history:: Smoking status: Patient/guardian denies using tobacco. Screenin:47 Abuse screen: Denies threats or abuse. Denies injuries from another. Nutritional aj1 screening: No deficits noted. Tuberculosis screening: No symptoms or risk factors identified. 14:57 Fall Risk None identified. aj1 Assessment: 10:47 General: Appears in no apparent distress. uncomfortable, Behavior is calm, cooperative, aj1 appropriate for age. Pain: Complains of pain in forehead and abdomen Pain does not radiate. Pain currently is 7 out of 10 on a pain scale. Quality of pain is described as sharp, throbbing. Neuro: Level of Consciousness is awake, alert, obeys commands, Oriented to person, place, time, situation, Speech is normal, Facial symmetry appears normal, Reports dizziness, headache. Cardiovascular: Heart tones S1 S2 present Patient's skin is warm and dry. Rhythm is regular Chest pain is denied. Respiratory: Reports shortness of breath on exertion Airway is patent Respiratory effort is even, unlabored, Respiratory pattern is regular, symmetrical, the patient has mild shortness of breath. GI: Abdomen is round Bowel sounds present X 4 quads. Abd is soft X 4 quads Abdomen is tender to palpation X 4 quads. Reports diarrhea, nausea, vomiting. : No signs and/or symptoms were reported regarding the genitourinary system. EENT: No signs and/or symptoms were reported regarding the EENT system. Derm: No signs and/or symptoms reported regarding the dermatologic system. Skin is pink, warm \\T\\ dry. normal. Musculoskeletal: No signs and/or symptoms reported regarding the musculoskeletal system. Circulation, motion, and sensation intact. 10:59 Reassessment: XRay at bedside. aj1 11:37 Reassessment: Patient appears in no apparent distress at this time. No changes from aj1 previously documented assessment. Patient and/or family updated on plan of care and expected duration. Pain level reassessed. Patient is alert, oriented x 3, equal unlabored respirations, skin warm/dry/pink. 12:30 Reassessment: Patient states she would like some pain medication for her headache. aj1 Notified ARVIND Boyd. 13:30 Reassessment: Patient appears in no apparent distress at this time. No changes from aj1 previously documented assessment. Patient and/or family updated on plan of care and expected duration. Pain level reassessed. Patient is alert, oriented x 3, equal unlabored respirations, skin warm/dry/pink. Patient states that she is feeling very anxious, like she is trapped and would like some anxiety medication. Notified ARVIND Boyd. 14:30 Reassessment: Patient appears in no apparent distress at this time. No changes from aj1 previously documented assessment. Patient and/or family updated on plan of care and expected duration. Pain level reassessed. Patient is alert, oriented x 3, equal unlabored respirations, skin warm/dry/pink. Vital Signs: 10:39 BP 147 / 92; Pulse 119; Resp 28; Temp 97.2; Pulse Ox 100% on R/A; Weight 93.44 kg; ph Height 5 ft. 5 in. (165.10 cm); Pain 6/10; 11:37 BP 141 / 80; Pulse 112; Resp 20; Pulse Ox 98% on R/A; aj1 12:31 BP 130 / 86; Pulse 70; Resp 18; Pulse Ox 97% on R/A; aj1 13:30 BP 129 / 56; Pulse 102; Resp 20; Pulse Ox 100% on R/A; aj1 14:56 BP 121 / 70; Pulse 102; Resp 18; Pulse Ox 99% ; aj1 10:39 Body Mass Index 34.28 (93.44 kg, 165.10 cm) ph ED Course: 10:25 Patient arrived in ED. as 10:26 Jean-Paul Cameron DO is Private Physician. as 10:37 Darrick Rosenbaum PA is PHCP. cp 10:37 Darrick Rey MD is Attending Physician. cp 10:39 Triage completed. ph 10:41 Arm band placed on. ph 10:47 Colleen Means, RN is Primary Nurse. aj1 10:47 Patient has correct armband on for positive identification. Bed in low position. Call aj1 light in reach. Side rails up X 1. 10:47 No provider procedures requiring assistance completed. aj1 10:58 EKG done, by wiring technician. reviewed by Darrick Rey MD. at1 11:05 X-ray completed. Portable x-ray completed in exam room. jr1 11:07 XRAY Chest (1 view) In Process Unspecified. EDMS 11:35 Initial lab(s) drawn, by me, sent to lab. Inserted saline lock: 20 gauge in right aj1 antecubital area, using aseptic technique. Blood collected. 14:27 Jean-Paul Cameron DO is Referral Physician. cp 14:57 IV discontinued, intact, bleeding controlled, No redness/swelling at site. Pressure aj1 dressing applied. Administered Medications: 11:52 Drug: Zofran 4 mg Route: IVP; Site: right antecubital; aj1 13:53 Follow up: Response: No adverse reaction aj1 11:53 Drug: Pepcid 20 mg Route: IVP; Site: right antecubital; aj1 13:53 Follow up: Response: No adverse reaction aj1 13:17 Drug: Reglan 10 mg Route: IVP; Site: right antecubital; aj1 13:53 Follow up: Response: No adverse reaction aj1 13:17 Drug: Decadron - Dexamethasone 10 mg Route: IVP; Site: right antecubital; aj1 13:54 Follow up: Response: No adverse reaction aj1 13:17 Drug: Magnesium Sulfate 2 grams Route: IVPB; Infused Over: 2 hrs; Site: right aj1 antecubital; 14:58 Follow up: IV Status: Completed infusion; IV Intake: 50ml aj1 13:52 Drug: Insulin Regular Human 10 units {Co-Signature: [email or web address] (Cornelia Stover LVN).} Route: IVP; aj1 Site: right antecubital; 14:50 Follow up: Response: No adverse reaction aj1 13:53 Drug: Albuterol 2.5 mg Route: Inhalation; aj1 14:50 Follow up: Response: No adverse reaction aj1 13:54 Drug: Ativan 0.5 mg Route: IVP; Site: right antecubital; aj1 14:50 Follow up: Response: No adverse reaction aj1 Point of Care Testing: Blood Glucose: 11:36 Blood Glucose: 299 mg/dL; aj1 14:56 Blood Glucose: 224 mg/dL; aj1 Ranges: Intake: 14:58 IV: 50ml; Total: 50ml. aj1 Outcome: 14:28 Discharge ordered by . cp 14:57 Discharged to home ambulatory. aj1 14:57 Condition: good 14:57 Discharge instructions given to patient, Instructed on discharge instructions, follow up and referral plans. Demonstrated understanding of instructions, follow-up care. 14:59 Patient left the ED. aj1 Signatures: Dispatcher [employer] Colleen Dacosta RN RN aj1 Negra Rivera jr1 Clara Arzola Amanda, blasting helper EKG Tat1 Suly Haque RN RN ph Darrick Rosenbaum, ARVIND PA cp Cornelia Stover PRESS TENDER SMOKE SIGNAL ed1
[2017-08-30 15:04] VITALS: TEMP 97.2
[2017-08-30 15:10] VITALS: BP 121/70; O2SAT 99
--- NOTE | 2017-08-30 15:27 | EKG ---
Test Date: 2017-08-30 Test Time: 10:51:20 Clay Structure Builder And Servicer: RACHAEL MEASUREMENT RESULTS: Intervals: Rate: 108 WI: 148 QRSD: 142 QT: 398 QTc: 533 [place]: P: 36 WI: 148 QRS: 256 T: 39 INTERPRETIVE STATEMENTS: Sinus tachycardia Right bundle branch block Inferior infarct, age undetermined Anterolateral infarct, age undetermined Abnormal ECG Compared to ECG 07/24/2017 10:03:35 Myocardial infarct finding now present Sinus rhythm no longer present Electronically Signed On 08-30-17 15:25:43 CDT by Ankit Simmons
== END 2017-08-30 14:59 | disposition home or self-care (01) ==
LOC: ER 10:24
DX: E83.42 Hypomagnesemia (principal); R06.02 Shortness of breath; I10 Essential (primary) hypertension; E11.9 Type 2 diabetes mellitus without complications; E78.00 Pure hypercholesterolemia, unspecified; Z79.4 Long term (current) use of insulin; Z88.8 Allergy status to other drugs, medicaments and biological substances
CPT/HCPCS: 36415; 71045; 80048; 80076; 81003; 82550; 82553; 82962; 83735; 83880; 84484; 85025; 85610; 85730; 93005; 96365; 96366; 96375; 99284; J1100; J2405; J2765; J3475

== ENCOUNTER 2017-09-01 09:59 | Emergency (ER) | payer BC ==
[2017-09-01] MEDS ORDERED: NA CHLORIDE 0.9% 1,000 ML ONE (10:41)
[2017-09-01] MEDS ORDERED: PROMETHAZINE 25 MG/ML VIAL ONE (10:41)
[2017-09-01] MEDS ORDERED: MEPERIDINE HCL 25 MG/0.5 ML ONE (10:50)
--- NOTE | 2017-09-01 11:14 | RAD REPORT ---
EXAM DESCRIPTION: CT - C Spine Wo Con - 09/01/2017 10:58 am CLINICAL HISTORY: Neck pain, radiculopathy. COMPARISON: 06/25/2017 TECHNIQUE: Axial 2 mm thick images of the cervical spine were obtained with sagittal and coronal rec onstruction images generated and reviewed. All CT scans are performed using dose optimization technique as appropriate and may include automated exposure control or mA/KV adjustment according to patient size. FINDINGS: Cervical body height and alignment are normal. Mild spondylosis in the lower cervical leve ls noted with disc thinning and mild posterior disc bulges. Small endplate osteophytes are present at C7-T1. No fracture or acute bony abnormality. No paraspinal mass or hematoma. Significant left-sided paranasal sinus opacification involving the left maxillary antrum and sphenoid sinus. IMPRESSION: No acute cervical spine finding. Significant left-sided paranasal sinus opacification.
[2017-09-01 11:40] LABS: Potassium 4.1 mEq/L (3.6-5.0)
[2017-09-01 11:46] LABS: Albumin 4.2 g/dL (3.2-5.5); Bilirubin Direct 0.1 mg/dL (0-0.2); Bilirubin Total 0.8 mg/dL (0.3-1.2); Protein, Total 9.6 g/dL (6.0-8.3)
[2017-09-01 11:47] LABS: Absolute Lymphocytes (CBC) 0.5 K/uL (0.7-4.9); Absolute Monocytes 0.5 K/uL (0.1-1.3); Absolute Neutrophil 9.8 K/uL (1.8-8.0); Basophils % 0.4 % (0-1.3); Eosinophils % 0.5 % (0-4.4); Hematocrit 29.6 % (36.0-45.0); Lymphocytes % 4.7 % (15.3-44.8); MCH 28.9 pg (27.0-35.0); MCV 86.3 fL (80-100); MPV 9.1 fL (7.6-11.3); Monocytes % 4.2 % (3.3-12.3); RBC Red Blood Cell Count 3.43 M/uL (3.86-4.86)
[2017-09-01 11:53] LABS: Protime INR 1.03
[2017-09-01 12:37] LABS: Blood Morphology Comment NOT SEEN (NOT SEEN); Platelet Estimate ADEQ; Urine White Blood Cell Casts OK
[2017-09-01 12:40] LABS: Urine Blood 1+ (NEG); Urine Glucose 2+ (NEG); Urine Protein 3+ (NEG); Urine pH 5.5 (5.0-7.0)
--- NOTE | 2017-09-01 12:54 | ER ---
Nurse's Notes [facility] Name: Emily Barbour Age: 46 yrs Sex: Female : 1970 Arrival Date: 09/01/2017 Time: 10:02 Bed 19 Private MD: Jean-Paul Cameron Diagnosis: Vomiting;Dehydration Presentation: 09/01 10:14 Presenting complaint: Patient states: Reports episode of vomiting and diarrhea last aj night, after having steroid injections in neck yesterday. Patient was seen in this ER 2 days ago for diarrhea. Transition of care: patient was not received from another setting of care. Onset of symptoms was September 01, 2017. Care prior to arrival: None. 10:14 Method Of Arrival: Wheelchair aj 10:14 Acuity: SALENA 4 aj 10:52 Acuity: SALENA 3 iw 11:50 Initial Sepsis Screen: Does the patient meet any 2 criteria? No. Patient's initial em sepsis screen is negative. Does the patient have a suspected source of infection? No. Patient's initial sepsis screen is negative. Triage Assessment: 10:17 General: Appears in no apparent distress. comfortable, Behavior is calm, cooperative, aj appropriate for age. Pain: Complains of pain in back of head and back of neck. Neuro: Level of Consciousness is awake, alert, obeys commands, Oriented to person, place, time, situation, Appropriate for age. Respiratory: Airway is patent Respiratory effort is even, unlabored, Respiratory pattern is regular, symmetrical. GI: Reports diarrhea, nausea, vomiting. Derm: Skin is intact, is healthy with good turgor, Skin is pink, warm \T\ dry. normal. [employer]: 10:17 LMP N/A - Hysterectomy aj Historical: - Allergies: 10:17 Benadryl; aj 10:17 metformin; aj 10:17 Tradjenta; aj - Home Meds: 10:17 Amitriptyline Oral [Active]; Cymbalta 20 mg Oral cpDR 1 cap daily [Active]; fenofibrate aj Oral [Active]; gabapentin Oral [Active]; Humalog Sub-Q [Active]; Sodium Bicarbonate Oral [Active]; Toujeo SoloStar 300 unit/mL (1.5 mL) subcutaneous inpn [Active]; Tramadol Oral [Active]; Victoza 3-Raghu subcutaneous [Active]; - PMHx: 10:17 Anemia; Diabetes - NIDDM; High Cholesterol; Hypertension; Renal Disease; Tendonitis in aj Elbows; - PSHx: 10:17 Hysterectomy; Appendectomy; Cholecystectomy; aj - Immunization history:: Adult Immunizations up to date. - Social history:: Smoking status: Patient/guardian denies using tobacco. - Family history:: not pertinent. - Hospitalizations: : No recent hospitalization is reported. Screenin:26 Abuse screen: Denies threats or abuse. Nutritional screening: No deficits noted. em Tuberculosis screening: No symptoms or risk factors identified. Fall Risk None identified. Assessment: 10:30 General: Appears in no apparent distress. uncomfortable, Behavior is calm, cooperative. em Pain: Complains of pain in back of neck and back of head Pain currently is 9 out of 10 on a pain scale. Neuro: Level of Consciousness is awake, alert, obeys commands, Oriented to person, place, time, situation, Moves all extremities. Gait is steady, Speech is normal, Intact Denies. Cardiovascular: Capillary refill < 3 seconds Patient's skin is warm and dry. Respiratory: Airway is patent Respiratory effort is even, unlabored, Respiratory pattern is regular, symmetrical. GI: Abdomen is round Bowel sounds present X 4 quads. Abd is soft and non tender X 4 quads. Reports nausea, vomiting. : No signs and/or symptoms were reported regarding the genitourinary system. EENT: No signs and/or symptoms were reported regarding the EENT system. Derm: Skin is intact, Skin is pink, warm \T\ dry. Musculoskeletal: Range of motion: intact in all extremities. 10:45 Reassessment: Patient appears in no apparent distress at this time. I agree with the iw above assessment by Kuldip Bay LVN. 11:35 Reassessment: Patient appears in no apparent distress at this time. Patient and/or em family updated on plan of care and expected duration. Pain level reassessed. Patient is alert, oriented x 3, equal unlabored respirations, skin warm/dry/pink. 12:59 Reassessment: Patient appears in no apparent distress at this time. Patient and/or em family updated on plan of care and expected duration. Pain level reassessed. Patient is alert, oriented x 3, equal unlabored respirations, skin warm/dry/pink. Patient states feeling better. Patient states symptoms have improved. Vital Signs: 10:17 BP 153 / 80; Pulse 111; Resp 20; Temp 98.0; Pulse Ox 98% on R/A; Weight 93.44 kg; aj Height 5 ft. 5 in. (165.10 cm); 10:53 BP 126 / 70; Pulse 117; Resp 20; Pulse Ox 96% ; mh5 11:47 BP 128 / 77; Pulse 109; Resp 20; Pulse Ox 98% on R/A; mh5 13:00 BP 127 / 71; Pulse 100; Resp 18; Pulse Ox 99% on R/A; em 10:17 Body Mass Index 34.28 (93.44 kg, 165.10 cm) aj ED Course: 10:02 Patient arrived in ED. mr 10:02 Jean-Paul Cameron DO is Private Physician. mr 10:16 Triage completed. aj 10:17 Arm band placed on left wrist. Patient placed in an exam room. aj 10:19 Destin Snyder MD is Attending Physician. rn 10:25 Kuldip Bay LVN is Primary Nurse. em 10:58 CT C Spine In Process Unspecified. EDMS 11:16 Initial lab(s) drawn, by me, held in ED. Urine collected: clean catch specimen, clear. 5 Inserted saline lock: 20 gauge in right antecubital area, using aseptic technique. Blood collected. 11:24 sent to lab. 5 11:25 Lipase Sent. 5 11:25 LFT's Sent. 5 11:25 Protime (+inr) Sent. [facility] 11:25 Ptt, Activated Sent. [facility] 11:25 Basic Metabolic Panel Sent. 5 11:25 CBC with Diff Sent. [facility] 11:25 Urine Dipstick--Ancillary (enter results) Sent. 5 11:49 No provider procedures requiring assistance completed. em 11:50 Patient has correct armband on for positive identification. Bed in low position. Call em light in reach. Side rails up X2. Adult w/ patient. 13:20 IV discontinued, intact, bleeding controlled, No redness/swelling at site. Pressure em dressing applied. Administered Medications: 11:37 Drug: Phenergan 25 mg Route: IVP; Site: right antecubital; iw 13:00 Follow up: Response: No adverse reaction; Nausea is decreased em 11:37 Drug: Demerol 25 mg Route: IVP; Site: right antecubital; iw 12:59 Follow up: Response: No adverse reaction em 11:38 Drug: NS 0.9% 1000 ml Route: IV; Rate: 1000 ml; Site: right antecubital; em 13:20 Follow up: IV Status: Completed infusion; IV Intake: 1000ml em Intake: 13:20 IV: 1000ml; Total: 1000ml. em Outcome: 12:53 Discharge ordered by . rn 13:20 Discharged to home ambulatory. em 13:20 Condition: good 13:20 Discharge instructions given to patient, Instructed on discharge instructions, follow up and referral plans. Demonstrated understanding of instructions, follow-up care. 13:23 Patient left the ED. em Signatures: Dispatcher [employer] Jacquie Monk RN RN aj Rivera, Maria mr Munoz, Kuldip, AGING ROOM OPERATOR AGING ROOM OPERATOR Laila Sepulveda RN RN iw Nieto, Roman, MD MD rn Martinez, Maria mh5
--- NOTE | 2017-09-01 12:54 | EDPHYS ---
Physician Documentation [facility] Name: Emily Barbour Age: 46 yrs Sex: Female : 1970 Arrival Date: 09/01/2017 Time: 10:02 Bed 19 Private MD: Jean-Paul Cameron ED Physician Destin Snyder HPI: 09/01 10:38 This 46 yrs old Female presents to ER via Wheelchair with complaints of rn Vomiting/Diarrhea, Neck Problem. 10:38 The patient presents to the emergency department with nausea, vomiting, diarrhea. rn Onset: The symptoms/episode began/occurred last night. Possible causes: unknown. Severity of symptoms: At their worst the symptoms were mild in the emergency department the symptoms are unchanged. The patient has not experienced similar symptoms in the past. The patient has been recently seen by a physician:. Reports had 2 cervical injections yesterday, steroids, has had injections before but began hurting shortly after, also having vomiting/diarrhea. Seen here 2 days ago for diarrhea, sent home, states got better. Denies abd pain. No fever. No focal neurological complaints. . 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 N/A - Hysterectomy aj Historical: - Allergies: 10:17 Benadryl; aj 10:17 metformin; aj 10:17 Tradjenta; aj - Home Meds: 10:17 Amitriptyline Oral [Active]; Cymbalta 20 mg Oral cpDR 1 cap daily [Active]; fenofibrate aj Oral [Active]; gabapentin Oral [Active]; Humalog Sub-Q [Active]; Sodium Bicarbonate Oral [Active]; Toujeo SoloStar 300 unit/mL (1.5 mL) subcutaneous inpn [Active]; Tramadol Oral [Active]; Victoza 3-Raghu subcutaneous [Active]; - PMHx: 10:17 Anemia; Diabetes - NIDDM; High Cholesterol; Hypertension; Renal Disease; Tendonitis in aj Elbows; - PSHx: 10:17 Hysterectomy; Appendectomy; Cholecystectomy; aj - Immunization history:: Adult Immunizations up to date. - Social history:: Smoking status: Patient/guardian denies using tobacco. - Family history:: not pertinent. - Hospitalizations: : No recent hospitalization is reported. ROS: 10:38 Constitutional: Negative for fever, chills, and weight loss, Eyes: Negative for injury, rn pain, redness, and discharge, Neck: + neck pain, no swelling Cardiovascular: Negative for chest pain, palpitations, and edema, Respiratory: Negative for shortness of breath, cough, wheezing, and pleuritic chest pain, Abdomen/GI: Negative for abdominal pain and constipation MS/Extremity: Negative for injury and deformity, Skin: Negative for injury, rash, and discoloration, Neuro: Negative for weakness, numbness, tingling, and seizure. Exam: 10:42 Constitutional: This is a well developed, well nourished patient who is awake, alert, rn and in no acute distress. Head/Face: Normocephalic, atraumatic. Eyes: Pupils equal round and reactive to light, extra-ocular motions intact. Lids and lashes normal. Conjunctiva and sclera are non-icteric and not injected. Cornea within normal limits. Periorbital areas with no swelling, redness, or edema. Neck: Trachea midline, no thyromegaly or masses palpated, and no cervical lymphadenopathy. Supple, full range of motion without nuchal rigidity, or vertebral point tenderness. No Meningismus. No fluctuance or skin changes posteriorly at entry sites of injections. Abdomen/GI: Soft, non-tender, with normal bowel sounds. No distension or tympany. No guarding or rebound. No evidence of tenderness throughout. Skin: Warm, dry with normal turgor. Normal color with no rashes, no lesions, and no evidence of cellulitis. MS/ Extremity: Pulses equal, no cyanosis. Neurovascular intact. Full, normal range of motion. Equal circumference. Neuro: Awake and alert, GCS 15, oriented to person, place, time, and situation. Cranial nerves II-XII grossly intact. Motor strength 5/5 in all extremities. Sensory grossly intact. Cerebellar exam normal. Normal gait. Vital Signs: 10:17 BP 153 / 80; Pulse 111; Resp 20; Temp 98.0; Pulse Ox 98% on R/A; Weight 93.44 kg; aj Height 5 ft. 5 in. (165.10 cm); 10:53 BP 126 / 70; Pulse 117; Resp 20; Pulse Ox 96% ; mh5 11:47 BP 128 / 77; Pulse 109; Resp 20; Pulse Ox 98% on R/A; mh5 13:00 BP 127 / 71; Pulse 100; Resp 18; Pulse Ox 99% on R/A; em 10:17 Body Mass Index 34.28 (93.44 kg, 165.10 cm) aj MDM: 10:19 Patient medically screened. rn 12:51 Differential diagnosis: viral gastroenteritis, gastroenteritis. Data reviewed: vital rn signs, nurses notes, lab test result(s), radiologic studies, CT scan, and as a result, I will discharge patient. Counseling: I had a detailed discussion with the patient and/or guardian regarding: the historical points, exam findings, and any diagnostic results supporting the discharge/admit diagnosis, lab results, radiology results, the need for outpatient follow up, to return to the emergency department if symptoms worsen or persist or if there are any questions or concerns that arise at home. Response to treatment: the patient's symptoms have markedly improved after treatment. Special discussion: I discussed with the patient/guardian in detail that at this point there is no indication for admission to the hospital. It is understood, however, that if the symptoms persist or worsen the patient needs to return immediately for re-evaluation. 12:53 ED course: Pt with prescription for zofran, hasn't filled yet, will fill today. Feels rn much better now. . 09/01 10:35 Order name: Urine Dipstick--Ancillary (enter results); Complete Time: 12:48 09/01 10:37 Order name: CBC with Diff; Complete Time: 12:48 rn 09/01 10:37 Order name: Basic Metabolic Panel; Complete Time: 12:19 rn 09/01 10:37 Order name: Protime (+inr); Complete Time: 12:19 rn 09/01 10:37 Order name: Ptt, Activated; Complete Time: 12:19 rn 09/01 10:37 Order name: LFT's; Complete Time: 12:19 rn 09/01 10:37 Order name: IV Start; Complete Time: 11:26 rn 09/01 10:37 Order name: CT C Spine; Complete Time: 11:15 rn 09/01 10:37 Order name: Lipase; Complete Time: 12:19 rn 09/01 11:49 Order name: CBC Smear Scan; Complete Time: 12:48 EDMS Administered Medications: 11:37 Drug: Phenergan 25 mg Route: IVP; Site: right antecubital; iw 13:00 Follow up: Response: No adverse reaction; Nausea is decreased em 11:37 Drug: Demerol 25 mg Route: IVP; Site: right antecubital; iw 12:59 Follow up: Response: No adverse reaction em 11:38 Drug: NS 0.9% 1000 ml Route: IV; Rate: 1000 ml; Site: right antecubital; em 13:20 Follow up: IV Status: Completed infusion; IV Intake: 1000ml em Disposition: 09/01/17 12:53 Discharged to Home. Impression: Vomiting, Dehydration. - Condition is Stable. - Discharge Instructions: Dehydration, Adult, Nausea and Vomiting. - Work release form, Medication Reconciliation Form, Thank You Letter, Antibiotic Education, Prescription Opioid Use form. - Follow up: Private Physician; When: As needed; Reason: Recheck today's complaints, Re-evaluation by your physician. - Problem is new. - Symptoms have improved. Signatures: Dispatcher [employer] Jacquie Monk RN RN aj Munoz, Edgar, HOUSEMAN HOUSEMAN Laila Sepulveda RN RN iw Nieto, Roman, MD MD turn down attendant: (The following items were deleted from the chart) 13:23 12:53 09/01/2017 12:53 Discharged to Home. Impression: Vomiting; Dehydration. Condition em is Stable. Forms are Medication Reconciliation Form, Thank You Letter, Antibiotic Education, Prescription Opioid Use. Follow up: Private Physician; When: As needed; Reason: Recheck today's complaints, Re-evaluation by your physician. Problem is new. Symptoms have improved. rn
[2017-09-01 13:27] VITALS: TEMP 98
[2017-09-01 13:30] VITALS: BP 127/71; O2SAT 99
== END 2017-09-01 13:23 | disposition home or self-care (01) ==
LOC: ER 09:59
DX: E86.0 Dehydration (principal); I10 Essential (primary) hypertension; E11.9 Type 2 diabetes mellitus without complications; Z79.4 Long term (current) use of insulin; Z88.8 Allergy status to other drugs, medicaments and biological substances
CPT/HCPCS: 36415; 72125; 80048; 80076; 81003; 83690; 85025; 85610; 85730; 96361; 96374; 96375; 99284; J2175; J2550; J7030

== ENCOUNTER 2017-09-03 13:44 | Observation (INO) | payer BC ==
[2017-09-03 15:14] LABS: Absolute Lymphocytes (CBC) 0.8 K/uL (0.7-4.9); Absolute Monocytes 0.7 K/uL (0.1-1.3); Absolute Neutrophil 5.6 K/uL (1.8-8.0); Basophils % 0.4 % (0-1.3); Eosinophils % 1.5 % (0-4.4); Hematocrit 27.4 % (36.0-45.0); Lymphocytes % 10.6 % (15.3-44.8); MCH 28.4 pg (27.0-35.0); MCV 84.5 fL (80-100); RBC Red Blood Cell Count 3.24 M/uL (3.86-4.86)
[2017-09-03 15:22] LABS: Potassium 3.7 mEq/L (3.6-5.0)
[2017-09-03 15:28] LABS: Albumin 3.5 g/dL (3.2-5.5); Bilirubin Direct 0.1 mg/dL (0-0.2); Bilirubin Total 0.8 mg/dL (0.3-1.2); Protein, Total 8.4 g/dL (6.0-8.3)
[2017-09-03 15:32] LABS: Urine Blood 1+ (NEG); Urine Glucose 1+ (NEG); Urine Protein 3+ (NEG); Urine Specific Gravity 1.025 (1.005-1.030); Urine pH 5.5 (5.0-7.0)
[2017-09-03 15:57] LABS: Urine Bacteria >50 /HPF (<20); Urine Coarse Granular Casts 0-5 /LPF (NONE SEEN); Urine Culture Reflex Order REFLEXED; Urine RBC <5 /HPF (NONE SEEN)
[2017-09-03 15:58] LABS: Urine Other Components CELL CAST 0-5 (NONE SEEN)
[2017-09-03] MEDS ORDERED: FENTANYL CITR 100 MCG/2 ML ONE (17:00)
[2017-09-03] MEDS ORDERED: NA CHLORIDE 0.9% 1,000 ML ONE (17:00)
[2017-09-03] MEDS ORDERED: ONDANSETRON 4 MG/2 ML VIAL ONE (17:00)
--- NOTE | 2017-09-03 17:05 | RAD REPORT ---
EXAM DESCRIPTION: CT - Stone Protocol - 09/03/2017 4:47 pm CLINICAL HISTORY: Abdominal pain COMPARISON: CT study September 2016 TECHNIQUE: Axial 5 mm thick images were obtained without oral or IV contrast. The [id number] span s the entirety of the system partially obscuring uppermost abdomen and lung bases. All CT scans are performed using dose optimization technique as appropriate and may include automated exposure control or mA/KV adjustment according to patient size. FINDINGS: No hydronephrosis is present and no obstructing ureteral calculi. No suspicious renal mass es. Isodense masses and pyelonephritis are not excluded on a stone protocol CT scan. Urinary bladder is contracted limiting assessment. Uterus is absent. Ovaries are absent or atrophic. Liver shows fatty infiltration with no focal liver lesion identified. No pancreas or splenic abnormal ity. Cholecystectomy clips are present. No biliary tree dilatation. No significant adrenal finding. No gastric dilatation or wall thickening. No dilation of small bowel loops. A few mesenteric lymph no anne are present in the right lower quadrant. The appendix is not uniquely identifiable and may be abs ent. No appendicitis findings. There is nonspecific stranding adjacent to the cecum and ascending col on mild in degree. Mishra of the ascending colon appear mildly edematous. There is additional small am ount of fluid in stranding adjacent to the redundant sigmoid colon. No mass or bulky lymphadenopathy. No free air or pneumatosis. Disc and bony degenerative changes are present. Phleboliths and vascular arterial calcifications are present. IMPRESSION: No obstruction, free air or surgically emergent finding. Mild nonspecific inflammatory s tranding and mesenteric lymph nodes in the right lower quadrant. There is minimal fluid in stranding adjacent to the sigmoid colon. Nonspecific colitis is most likely. No mass lesions seen. Fatty infiltration of the liver. Isodense masses and pyelonephritis are not excluded on stone protocol technique.
[2017-09-03] MEDS ORDERED: ACETAMINOPHEN 500 MG TAB PO PRN (18:14)
--- NOTE | 2017-09-03 18:14 | EDPHYS ---
Physician Documentation [facility] Name: Emily Barbour Age: 46 yrs Sex: Female : 1970 Arrival Date: 09/03/2017 Time: 13:47 Bed 23 Private MD: ED Physician Yordan Magana HPI: 09/03 18:07 This 46 yrs old Female presents to ER via Wheelchair with complaints of gs Vomiting, Weakness. 18:07 The patient presents to the emergency department with nausea, vomiting, diarrhea, gs abdominal pain. Onset: The symptoms/episode began/occurred 3 day(s) ago. Possible causes: unknown. The symptoms are aggravated by nothing. The symptoms are alleviated by nothing. Associated signs and symptoms: Pertinent positives: abdominal pain, Pertinent negatives: fever. Severity of symptoms: At their worst the symptoms were moderate in the emergency department the symptoms are unchanged. The patient has experienced similar episodes in the past, a few times. cant keep down fluids. 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 - Social history:: Smoking status: Patient/guardian denies using tobacco. ROS: 18:07 All other systems are negative. gs Exam: 18:07 Head/Face: Normocephalic, atraumatic. Eyes: Pupils equal round and reactive to light, gs extra-ocular motions intact. Lids and lashes normal. Conjunctiva and sclera are non-icteric and not injected. Cornea within normal limits. Periorbital areas with no swelling, redness, or edema. ENT: Nares patent. No nasal discharge, no septal abnormalities noted. Tympanic membranes are normal and external auditory canals are clear. Oropharynx with no redness, swelling, or masses, exudates, or evidence of obstruction, uvula midline. Mucous membranes moist. Neck: Trachea midline, no thyromegaly or masses palpated, and no cervical lymphadenopathy. Supple, full range of motion without nuchal rigidity, or vertebral point tenderness. No Meningismus. Chest/axilla: Normal chest wall appearance and motion. Nontender with no deformity. No lesions are appreciated. Cardiovascular: Regular rate and rhythm with a normal S1 and S2. No gallops, murmurs, or rubs. Normal PMI, no JVD. No pulse deficits. Respiratory: Lungs have equal breath sounds bilaterally, clear to auscultation and percussion. No rales, rhonchi or wheezes noted. No increased work of breathing, no retractions or nasal flaring. 18:07 Back: No spinal tenderness. No costovertebral tenderness. Full range of motion. Skin: Warm, dry with normal turgor. Normal color with no rashes, no lesions, and no evidence of cellulitis. MS/ Extremity: Pulses equal, no cyanosis. Neurovascular intact. Full, normal range of motion. Neuro: Awake and alert, GCS 15, oriented to person, place, time, and situation. Cranial nerves II-XII grossly intact. Motor strength 5/5 in all extremities. Sensory grossly intact. Cerebellar exam normal. Normal gait. 18:07 Constitutional: The patient appears alert, awake, pale. 18:07 Abdomen/GI: Palpation: moderate abdominal tenderness, in the right upper quadrant and right lower quadrant, rebound tenderness, is not appreciated. Vital Signs: 13:50 BP 116 / 62; Pulse 108; Resp 16; Temp 98.2(O); Pulse Ox 100% on R/A; Weight 91.17 kg; la1 Height 5 ft. 5 in. (165.10 cm); 14:44 BP 128 / 67; Pulse 101; Resp 18; Pulse Ox 96% on R/A; aj1 15:10 BP 125 / 73; Pulse 99; Resp 18; Pulse Ox 97% on R/A; dh3 16:10 BP 122 / 75; Pulse 97; Resp 18; Pulse Ox 99% ; aj1 17:21 BP 127 / 62; Pulse 89; Resp 18; Pulse Ox 99% ; aj1 19:33 BP 132 / 65; Pulse 95; Resp 20; Temp 98.7(O); Pulse Ox 97% ; aj1 13:50 Body Mass Index 33.45 (91.17 kg, 165.10 cm) [facility] MDM: 16:19 Patient medically screened. 18:07 Differential diagnosis: gastritis, diverticulitis, viral gastroenteritis, gs gastroenteritis. Data reviewed: vital signs, nurses notes. Response to treatment: the patient's symptoms have mildly improved after treatment, and as a result, I will admit patient. 09/03 14:49 Order name: Amylase, Serum; Complete Time: 16:08 [facility] 09/03 14:49 Order name: Basic Metabolic Panel; Complete Time: 16:08 [facility] 09/03 14:49 Order name: CBC with Diff; Complete Time: 15:29 [facility] 09/03 14:49 Order name: Creatinine for Radiology; Complete Time: 15:29 [facility] 09/03 14:49 Order name: Hepatic Function; Complete Time: 16:08 [facility] 09/03 14:49 Order name: Lipase; Complete Time: 16:08 [facility] 09/03 14:49 Order name: Urine Microscopic Only; Complete Time: 16:08 [facility] 09/03 15:28 Order name: Urine Dipstick--Ancillary (enter results); Complete Time: 16:08 ag 09/03 15:28 Order name: Urine --Ancillary (enter results); Complete Time: 16:08 ag 09/03 15:58 Order name: Urine Culture [facility] 09/03 16:25 Order name: CT Stone Protocol; Complete Time: 17:09 gs 09/03 14:49 Order name: IV Saline Lock; Complete Time: 14:52 [facility] 09/03 14:49 Order name: Labs collected and sent; Complete Time: 14:52 [facility] 09/03 14:49 Order name: Urine Dipstick-Ancillary (obtain specimen); Complete Time: 15:26 aj Administered Medications: 17:17 Drug: NS 0.9% 1000 ml Route: IV; Rate: 1 bolus; Site: right antecubital; aj1 17:17 Drug: fentaNYL (PF) 50 mcg Route: IVP; Site: right antecubital; aj1 17:17 Drug: Zofran 4 mg Route: IVP; Site: right antecubital; aj1 Disposition: 09/03/17 18:13 Hospitalization ordered by Cathy Jose for Observation. Preliminary diagnosis are Dehydration, Vomiting, Noninfective gastroenteritis and colitis, unspecified. - Bed requested for Telemetry/MedSurg (observation). - Status is Observation. aj1 - Condition is Stable. - Problem is new. - Symptoms have improved. UTI on Admission? No Signatures: Dispatcher [employer] EDMS Colleen Means RN RN aj1 Torrie Puri ms Mauricio Bray RN RN la1 Yordan Magana MD MD gs Corrections: (The following items were deleted from the chart) 18:56 18:13 Hospitalization Ordered by Cathy Jose MD for Observation. Preliminary diagnosis ms is Dehydration; Vomiting; Noninfective gastroenteritis and colitis, unspecified. Bed requested for Telemetry/MedSurg (observation). Status is Observation. Condition is Stable. Problem is new. Symptoms have improved. UTI on Admission? No. gs 20:19 18:56 09/03/2017 18:13 Hospitalization Ordered by Cathy Jose MD for Observation. aj1 Preliminary diagnosis is Dehydration; Vomiting; Noninfective gastroenteritis and colitis, unspecified. Bed requested for Telemetry/MedSurg (observation). Status is Observation. Condition is Stable. Problem is new. Symptoms have improved. UTI on Admission? No. ms
--- NOTE | 2017-09-03 18:14 | ER ---
Nurse's Notes [facility] Name: Emily Barbour Age: 46 yrs Sex: Female : 1970 Arrival Date: 09/03/2017 Time: 13:47 Bed 23 Private MD: Diagnosis: Dehydration;Vomiting;Noninfective gastroenteritis and colitis, unspecified Presentation: 09/03 13:49 Presenting complaint: Patient states: abd pain and vomiting x 1 week. Transition of la1 care: patient was not received from another setting of care. Onset of symptoms was September 03, 2017. Initial Sepsis Screen: Does the patient meet any 2 criteria? No. Patient's initial sepsis screen is negative. Does the patient have a suspected source of infection? No. Patient's initial sepsis screen is negative. Care prior to arrival: None. 13:49 Method Of Arrival: Wheelchair la1 13:49 Acuity: SALENA 3 la1 WOOD BORER: 13:50 LMP N/A - Hysterectomy la1 Historical: - Allergies: 13:50 Benadryl; la1 13:50 metformin; la1 13:50 Tradjenta; la1 - PMHx: 13:50 Anemia; Diabetes - NIDDM; High Cholesterol; Hypertension; Renal Disease; Tendonitis in la1 Elbows; - PSHx: 18:10 Cholecystectomy; Appendectomy; gs - Immunization history:: Adult Immunizations up to date. - Social history:: Smoking status: Patient/guardian denies using tobacco. Screenin:27 Abuse screen: Denies threats or abuse. Denies injuries from another. Nutritional aj1 screening: No deficits noted. Tuberculosis screening: No symptoms or risk factors identified. Fall Risk None identified. Assessment: 14:27 General: Appears in no apparent distress. uncomfortable, Behavior is calm, cooperative, aj1 appropriate for age. Pain: Complains of pain in abdomen diffusely Pain does not radiate. Pain currently is 10 out of 10 on a pain scale. Quality of pain is described as sharp, Pain began one week ago Is continuous, Alleviated by medications. Neuro: Level of Consciousness is awake, alert, obeys commands, Oriented to person, place, time, situation, Speech is normal, Facial symmetry appears normal. Cardiovascular: Patient's skin is warm and dry. Respiratory: Airway is patent Respiratory effort is even, unlabored, Respiratory pattern is regular, symmetrical. GI: Abdomen is non-distended, Bowel sounds present X 4 quads. Abd is soft X 4 quads Abdomen is tender to palpation in left lower quadrant Reports diarrhea, nausea, vomiting. : No signs and/or symptoms were reported regarding the genitourinary system. EENT: No signs and/or symptoms were reported regarding the EENT system. Derm: No signs and/or symptoms reported regarding the dermatologic system. Skin is pink, warm \T\ dry. normal. Musculoskeletal: No signs and/or symptoms reported regarding the musculoskeletal system. Circulation, motion, and sensation intact. 15:10 Reassessment: Patient appears in no apparent distress at this time. No changes from aj1 previously documented assessment. Patient and/or family updated on plan of care and expected duration. Pain level reassessed. Patient is alert, oriented x 3, equal unlabored respirations, skin warm/dry/pink. 16:10 Reassessment: Patient appears in no apparent distress at this time. No changes from aj1 previously documented assessment. Patient and/or family updated on plan of care and expected duration. Pain level reassessed. Patient is alert, oriented x 3, equal unlabored respirations, skin warm/dry/pink. 17:20 Reassessment: Patient appears in no apparent distress at this time. No changes from aj1 previously documented assessment. Patient and/or family updated on plan of care and expected duration. Pain level reassessed. Patient is alert, oriented x 3, equal unlabored respirations, skin warm/dry/pink. 18:30 Reassessment: Patient appears in no apparent distress at this time. No changes from aj1 previously documented assessment. Patient and/or family updated on plan of care and expected duration. Pain level reassessed. Patient is alert, oriented x 3, equal unlabored respirations, skin warm/dry/pink. 19:32 Reassessment: Patient and/or family updated on plan of care and expected duration. Pain aj1 level reassessed. General: Appears in no apparent distress. uncomfortable, Behavior is calm, cooperative. Neuro: Level of Consciousness is awake, alert, obeys commands, Oriented to person, place, time, situation, Speech is normal, Facial symmetry appears normal. Cardiovascular: Patient's skin is warm and dry. Respiratory: Airway is patent Respiratory effort is even, unlabored, Respiratory pattern is regular, symmetrical. GI: Abdomen is non-distended, Bowel sounds present X 4 quads. Abd is soft X 4 quads Abdomen is tender to palpation. Derm: Skin is pink, warm \T\ dry. normal. Musculoskeletal: No signs and/or symptoms reported regarding the musculoskeletal system. Circulation, motion, and sensation intact. Vital Signs: 13:50 BP 116 / 62; Pulse 108; Resp 16; Temp 98.2(O); Pulse Ox 100% on R/A; Weight 91.17 kg; la1 Height 5 ft. 5 in. (165.10 cm); 14:44 BP 128 / 67; Pulse 101; Resp 18; Pulse Ox 96% on R/A; aj1 15:10 BP 125 / 73; Pulse 99; Resp 18; Pulse Ox 97% on R/A; dh3 16:10 BP 122 / 75; Pulse 97; Resp 18; Pulse Ox 99% ; aj1 17:21 BP 127 / 62; Pulse 89; Resp 18; Pulse Ox 99% ; aj1 19:33 BP 132 / 65; Pulse 95; Resp 20; Temp 98.7(O); Pulse Ox 97% ; aj1 13:50 Body Mass Index 33.45 (91.17 kg, 165.10 cm) la1 ED Course: 13:47 Patient arrived in ED. sb2 13:50 Triage completed. la1 13:51 Arm band placed on right wrist. la1 13:52 Colleen Means, RN is Primary Nurse. aj1 13:55 Yordan Magana MD is Attending Physician. gs 14:27 Patient has correct armband on for positive identification. Placed in gown. Bed in low aj1 position. Call light in reach. 14:27 No provider procedures requiring assistance completed. Inserted saline lock: 20 gauge aj1 in right antecubital area, using aseptic technique. Blood collected. 16:47 CT Stone Protocol In Process Unspecified. EDMS 16:47 CT completed. Patient tolerated procedure well. Patient moved back from CT. bq 18:11 Cathy Jose MD is Hospitalizing Provider. gs 20:18 Patient admitted, IV remains in place. aj1 Administered Medications: 17:17 Drug: NS 0.9% 1000 ml Route: IV; Rate: 1 bolus; Site: right antecubital; aj1 17:17 Drug: fentaNYL (PF) 50 mcg Route: IVP; Site: right antecubital; aj1 17:17 Drug: Zofran 4 mg Route: IVP; Site: right antecubital; aj1 Outcome: 18:13 Decision to Hospitalize by Provider. 20:18 Admitted to Med/surg accompanied by tech, via wheelchair. aj1 20:18 Condition: stable 20:18 Discharge instructions given to patient, Instructed on the need for admit, Demonstrated understanding of instructions. 20:19 Patient left the ED. aj1 Signatures: Dispatcher [employer] EDMS Colleen Means, RN RN aj1 Safia Yee Lee, RN RN la1 Miracle Fuentes 3 Yordan Magana MD MD gs Billeau, Sheri sb2
[2017-09-03] MEDS ORDERED: GLUCAGON 1 MG/VIAL IM PRN (18:23)
[2017-09-03] MEDS ORDERED: D50W 25 GM/50 ML SYRINGE IV PRN (18:23)
[2017-09-03] MEDS ORDERED: NA CHLORIDE 0.9% 1,000 ML IV SCH (19:00)
--- NOTE | 2017-09-03 20:09 | P.HP ---
Certification for Inpatient Patient admitted to: Observation With expected LOS: <2 Midnights Practitioner: I am a practitioner with admitting privileges, knowledge of patient current condition, hospital course, and medical plan of care. Services: Services provided to patient in accordance with Admission requirements found in Title 42 Section 412.3 of the Code of Federal Regulations Patient History Date of Service: 09/03/17 Reason for admission: colitis History of Present Illness: Ms Barbour is a 46 years old woman with history of CKD, DM II, obesity, IBS, who start about 1 week ago with nausea, vomiting and diarrhea. She also has had abdominal pain, diffuse, 7/10 of intensity. She denied any fever or chills at home. The patient was not able to tolerated food or liquids because vomiting. ER work up was remarkable for normal WBC count, however, she has signs of dehydration, sodium and chloride were low, and her renal function got worse as well. CT abd/pelvis consistent with colitis. Allergies metformin Allergy (Verified 08/22/16 19:56) Unknown diphenhydramine HCl [From Benadryl] Adverse Reaction (Verified 08/22/16 15:45) Nausea/Vomiting linagliptin [From Tradjenta] Adverse Reaction (Verified 08/22/16 15:45) weight loss TRIGENTA Adverse Reaction (Severe, Uncoded 08/22/16 19:57) Nausea/Vomiting Home Medications: Amitriptyline HCl 100 mg PO BEDTIME 01/09/16 Fenofibrate 160 mg PO DAILY 01/09/16 Liraglutide [Victoza 2-Raghu] 1.8 mg SQ BEDTIME 01/09/16 Insulin Lispro [Humalog Kwikpen] See Protocol SQ TID 08/22/16 Duloxetine HCl [Cymbalta] 30 mg PO DAILY 07/19/17 Insulin Glargine,Hum.rec.anlog [Margaux Solostmoshe] 50 unit SQ DAILY 07/19/17 Liraglutide [Victoza 2-Raghu] 1.8 mg SQ DAILY 07/19/17 traMADol HCL [Ultram*] 50 mg PO Q6H PRN 07/19/17 Ferrous Sulfate [Iron] 325 mg PO BID #60 tablet 07/21/17 Furosemide [Lasix*] 40 mg PO DAILY #30 tab 07/21/17 Pantoprazole [Protonix Tab*] 40 mg PO DAILY #40 tab 07/21/17 - Past Medical/Surgical History Diabetic: Yes -: Hypertension -: Hypertriglyceridemia -: Diabetes mellitus type 2 -: Diabetic neuropathy -: Anemia of chronic disease -: Recurrent UTI -: Chronic kidney disease -: Irritable bowel syndrome-diarrhea -: Osteoarthritis -: Former smoker -: Cholecystectomy -: Appendectomy -: Hysterectomy -: Tubal ligation -: Breast reduction -: Adenoidectomy Psychosocial/ Personal History: Patient is for 30 years, she has 3 children, she works at [employer]. - Family History Father -: Stroke, Cancer Mother -: Heart disease, Diabetes - Social History Smoking Status: Former smoker Alcohol use: Yes CD- Drugs: No Caffeine use: Yes Place of Residence: Home Review of Systems 10-point ROS is otherwise unremarkable Physical Examination - Physical Exam General: Alert, In no apparent distress HEENT: Atraumatic, PERRLA, Mucous membr. moist/pink, EOMI, Sclerae nonicteric Neck: Supple, 2+ carotid pulse no bruit, No LAD, Without JVD or thyroid abnormality Respiratory: Clear to auscultation bilaterally, Normal air movement Cardiovascular: Regular rate/rhythm, Normal S1 S2 Gastrointestinal: Normal bowel sounds, No tenderness, Tenderness (diffuse) Musculoskeletal: No tenderness Integumentary: No rashes Neurological: Normal speech, Normal strength at 5/5 x4 extr, Normal tone, Normal affect Lymphatics: No axilla or inguinal lymphadenopathy - Studies Laboratory Data (last 24 hrs) 09/03/17 14:50: Creatinine 2.85 H 09/03/17 14:50: WBC 7.2 D, Hgb 9.2 L, Hct 27.4 L, Plt Count 260 09/03/17 14:50: Sodium 124 L, Potassium 3.7, BUN 42 H, Creatinine 2.86 H, Glucose 353 H, Total Bilirubin 0.8, AST 14, ALT 14, Alkaline Phosphatase 42, Amylase 44, Lipase 38 Assessment and Plan - Problems (Diagnosis) (1) Colitis Current Visit: Yes Status: Acute (2) Acute kidney injury superimposed on CKD Current Visit: Yes Status: Acute (3) Diabetes mellitus Onset Date: 07/20/17 Current Visit: No Status: Chronic Qualifiers: Diabetes mellitus type: type 2 Diabetes mellitus long term care social worker insulin use: with long term care social worker use Diabetes mellitus complication status: with kidney complications Diabetes mellitus complication detail: with chronic kidney disease Chronic kidney disease stage: stage 4 (severe) Qualified Code(s): E11.22 - Type 2 diabetes mellitus with diabetic chronic kidney disease; N18.4 - Chronic kidney disease, stage 4 (severe); N18.4 - Chronic kidney disease, stage 4 (severe); N18.4 - Chronic kidney disease, stage 4 (severe); N18.4 - Chronic kidney disease, stage 4 (severe); Z79.4 - detention (current) use of insulin; Z79.4 - detention (current) use of insulin; Z79.4 - ocean transportation intermediary (current) use of insulin; Z79.4 - detention (current) use of insulin - Plan The ptient will be admitted to the hospital due to colitis. She has been started on empiric IV Cipro and Flagyl. Will continue with IV fluids since she has signs of volume depletion. Reject Opener has been consulted for evaluation and recommendations. - Advance Directives Does patient have a Living Will: No Does patient have a Durable POA for Healthcare: No - Code Status/Comfort Care Code Status Assessed: Yes Code Status: Full Code
[2017-09-03] MEDS ORDERED: NA CHLORIDE 0.9% 250 ML ONE (20:17)
[2017-09-03 20:46] VITALS: BMI 34.1
[2017-09-03] MEDS: CIPROFLOXACIN 400mg IV 400 MG/200 ML BAG IV SCH (20:58)
[2017-09-03] MEDS: INSULIN -REGULAR HUMAN 50 UNIT/0.5 ML ML SQ SCH (22:27)
[2017-09-03] MEDS: ONDANSETRON 4 MG/2 ML VIAL IV PRN (22:27)
[2017-09-03] MEDS: FENTANYL CITR 100 MCG/2 ML IV PRN (22:28)
[2017-09-03] MEDS: NA CHLORIDE 0.9% 1,000 ML IV SCH (22:28)
[2017-09-04] MEDS: METRONIDAZOLE 500mg IVPB 500 MG/100 ML BAG IV SCH ×3 (01:41→17:02)
[2017-09-04 05:09] LABS: Absolute Lymphocytes (CBC) 1.1 K/uL (0.7-4.9); Absolute Monocytes 0.6 K/uL (0.1-1.3); Absolute Neutrophil 3.3 K/uL (1.8-8.0); Basophils % 0.5 % (0-1.3); Eosinophils % 3.2 % (0-4.4); Hematocrit 23.4 % (36.0-45.0); Lymphocytes % 21.4 % (15.3-44.8); MCH 29.1 pg (27.0-35.0); MCV 84.8 fL (80-100); MPV 9.2 fL (7.6-11.3); Monocytes % 11.2 % (3.3-12.3); RBC Red Blood Cell Count 2.77 M/uL (3.86-4.86)
[2017-09-04] MEDS: FENTANYL CITR 100 MCG/2 ML IV PRN ×3 (05:23→21:22)
[2017-09-04] MEDS: ONDANSETRON 4 MG/2 ML VIAL IV PRN ×3 (05:23→21:13)
[2017-09-04] MEDS: NA CHLORIDE 0.9% 1,000 ML IV SCH ×2 (05:23→17:27)
[2017-09-04 05:26] LABS: Albumin 2.8 g/dL (3.2-5.5); Bilirubin Total 0.4 mg/dL (0.3-1.2); Potassium 3.7 mEq/L (3.6-5.0); Protein, Total 6.7 g/dL (6.0-8.3)
[2017-09-04] MEDS: INSULIN -REGULAR HUMAN 50 UNIT/0.5 ML ML SQ SCH ×4 (08:45→21:00)
[2017-09-04] MEDS: CIPROFLOXACIN 400mg IV 400 MG/200 ML BAG IV SCH ×2 (08:46→21:11)
[2017-09-04] MEDS ORDERED: HOME MED 1 EA UNK (Cholecalciferol (Vitamin D3) [Vitamin D3] 1 TAB) PO SCH (09:00)
[2017-09-04] MEDS: PANTOPRAZOLE 40MG TABLET PO SCH (09:55)
[2017-09-04] MEDS: FERROUS SULFATE 325 MG TAB PO SCH (09:55)
[2017-09-04] MEDS: DULOXETINE 30 MG CAP PO SCH (09:55)
[2017-09-04] MEDS: FENOFIBRATE 160 MG TAB PO SCH (09:55)
[2017-09-04] MEDS: VITAMIN D 1000 UNIT TAB PO SCH (09:56)
[2017-09-04] MEDS: INSULIN LISPRO 100 UNIT/1 ML SQ SCH ×2 (14:00→21:00)
[2017-09-04] MEDS: LACTOBACILLUS/ACIDOPHILUS TAB PO SCH (14:40)
--- NOTE | 2017-09-04 15:59 | PN ---
Date of Progress Note: 09/04/2017 Subjective: The patient seen and examined. Chart reviewed and case discussed with RN. The patient states that she is still having significant amount of diarrhea; however, her pain is better and final ly able to tolerate p.o. intake. Review of Systems: Negative except as above. Medications: Reviewed. Physical Examination: Vital Signs: Temperature 97.1, heart rate 84, blood pressure 156/65, respirations 20, O2 96% on room air. General: Awake, alert, oriented x3. Morbidly obese female, slightly ill appearing. CV: S1, S2. No murmurs. Regular rate and rhythm. Peripheral pulses present. Respiratory: Clear to auscultation bilaterally. No wheezing. No stridor. No use of accessory musc les. Gastrointestinal: Abdomen soft. Mild tenderness to palpation. Nondistended. Positive bowel sounds . No guarding or rigidity. Extremities: No clubbing, cyanosis, edema. Neurologic: Nonfocal. Laboratory Data: Sodium 129, potassium 3.7, chloride 100, CO2 22, BUN 41, creatinine 2.7, glucose 27 3, calcium 8.1, albumin 2.8. WBC 5.1, H and H 8 and 23.4, platelets 196. Urine culture growing 3+ g marlena-negative rods. C. diff assay is pending. Assessment And Plan: 1.Acute colitis. We will continue with IV antibiotics. Advance diet as tolerated. 2.Jodnx-bo-mtkxjkp kidney injury. We will follow up with Nephrology recommendations. 3.Obesity, BMI 34. 4.Diabetes mellitus type 2 with long-term use of insulin with chronic kidney complications stage 4. We will continue sliding scale insulin. 5.Essential hypertension, stable. Resume home medications. 6.Hypertriglyceridemia. Resume home medications. 7.Diabetic neuropathy. 8.Urinary tract infection, acute cystitis without hematuria. We will continue on IV antibiotics and follow up on cultures. Preliminary cultures are growing gram-negative rods. Followup on ID and sen sitivity. 9.Irritable bowel syndrome, diarrhea predominant. C. diff pending. 10.Osteoarthritis. 11.Gastrointestinal and deep venous thrombosis prophylaxis addressed with Lovenox and PPI. Plan: Follow up on urine culture and C. diff results. Likely discharge in a.m. Add probiotics. /DEVIN Voice ID: [id number] Report ID: [id number]
[2017-09-04] MEDS: INSULIN DETEMIR 100 UNIT/1 ML INSULIN SQ SCH (16:30)
[2017-09-04] MEDS ORDERED: INSULIN GLARGINE HUM REC ANLOG 40 UNIT SQ SCH (16:30)
[2017-09-04] MEDS ORDERED: ENOXAPARIN 30 MG/0.3 ML SQ SCH (17:00)
[2017-09-04 19:43] VITALS: O2SAT 99
[2017-09-04] MEDS ORDERED: MELATONIN 3 MG TABLET PO SCH (21:00)
[2017-09-04] MEDS ORDERED: AMITRIPTYLINE 50 MG TAB PO SCH (21:00)
[2017-09-04] MEDS ORDERED: MELATONIN PO SCH (21:00)
[2017-09-04] MEDS ORDERED: PYRIDOXINE HCL PO SCH (21:00)
--- NOTE | 2017-09-04 21:46 | P.PN ---
Subjective Date of Service: 09/04/17 Chief Complaint: colitis Physical Examination - Vital Signs Temperature: 97.0 F Blood Pressure: 139/61 Pulse: 88 Respirations: 18 Pulse Ox (%): 99 Assessment & Plan - Problems (Diagnosis) (1) Acute kidney injury superimposed on CKD Current Visit: Yes Status: Acute (2) Colitis Current Visit: Yes Status: Acute (3) Hyponatremia Onset Date: 04/30/14 Current Visit: No Status: Acute (4) UTI (urinary tract infection) Onset Date: 01/12/16 Current Visit: No Status: Acute Qualifiers: Urinary tract infection type: site unspecified Hematuria presence: without hematuria Qualified Code(s): N39.0 - Urinary tract infection, site not specified (5) Anemia Onset Date: 07/20/17 Current Visit: No Status: Chronic Qualifiers: Anemia type: B12 deficiency Vitamin B12 deficiency anemia type: unspecified B12 deficiency Qualified Code(s): D51.9 - Vitamin B12 deficiency anemia, unspecified (6) Chronic kidney disease Onset Date: 07/20/17 Current Visit: No Status: Chronic Qualifiers: Chronic kidney disease stage: stage 4 (severe) Qualified Code(s): N18.4 - Chronic kidney disease, stage 4 (severe) (7) Diabetes mellitus Onset Date: 07/20/17 Current Visit: No Status: Chronic Qualifiers: Diabetes mellitus type: type 2 Diabetes mellitus fci insulin use: with termite treater helper use Diabetes mellitus complication status: with kidney complications Diabetes mellitus complication detail: with chronic kidney disease Chronic kidney disease stage: stage 4 (severe) Qualified Code(s): E11.22 - Type 2 diabetes mellitus with diabetic chronic kidney disease; N18.4 - Chronic kidney disease, stage 4 (severe); N18.4 - Chronic kidney disease, stage 4 (severe); N18.4 - Chronic kidney disease, stage 4 (severe); N18.4 - Chronic kidney disease, stage 4 (severe); Z79.4 - 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 intermodal truck driver (current) use of insulin; Z79.4 - 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 intermodal truck driver (current) use of insulin; Z79.4 - 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 intermodal truck driver (current) use of insulin; Z79.4 - 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 intermodal truck driver (current) use of insulin (8) Diarrhea Onset Date: 09/22/15 Current Visit: No Status: Acute Qualifiers: Diarrhea type: unspecified type Qualified Code(s): R19.7 - Diarrhea, unspecified (9) Hypertension Onset Date: 07/20/17 Current Visit: No Status: Chronic Qualifiers: Hypertension type: essential hypertension Qualified Code(s): I10 - Essential (primary) hypertension (10) Obese Onset Date: 08/23/16 Current Visit: No Status: Chronic Qualifiers: Obesity type: unspecified obesity type Obesity classification: adult class 1 (BMI 30 - 34.9) Serious obesity comorbidity presence: without serious comorbidity Body mass index: BMI 32.0-32.9 Qualified Code(s): E66.9 - Obesity, unspecified; Z68.32 - Body mass index (BMI) 32.0-32.9, adult (11) CHF (congestive heart failure) Onset Date: 07/20/17 Current Visit: No Status: Chronic Qualifiers: Heart failure type: diastolic Heart failure chronicity: chronic Qualified Code(s): I50.32 - Chronic diastolic (congestive) heart failure (12) GERD (gastroesophageal reflux disease) Onset Date: 07/20/17 Current Visit: No Status: Suspected Qualifiers: Esophagitis presence: esophagitis presence not specified Qualified Code(s) : K21.9 - Gastro-esophageal reflux disease without esophagitis
[2017-09-05] MEDS: METRONIDAZOLE 500mg IVPB 500 MG/100 ML BAG IV SCH ×2 (00:25→09:00)
[2017-09-05] MEDS: NA CHLORIDE 0.9% 1,000 ML IV SCH ×2 (03:00→12:12)
[2017-09-05 05:15] LABS: Absolute Monocytes 0.5 K/uL (0.1-1.3); Absolute Neutrophil 3.6 K/uL (1.8-8.0); Basophils % 0.4 % (0-1.3); Eosinophils % 3.2 % (0-4.4); Hematocrit 23.7 % (36.0-45.0); Lymphocytes % 18.3 % (15.3-44.8); MCH 28.5 pg (27.0-35.0); MCV 85.3 fL (80-100); MPV 8.6 fL (7.6-11.3); Monocytes % 8.7 % (3.3-12.3); RBC Red Blood Cell Count 2.77 M/uL (3.86-4.86)
[2017-09-05 05:30] LABS: Albumin 2.8 g/dL (3.2-5.5); Bilirubin Total 0.2 mg/dL (0.3-1.2); Potassium 3.5 mEq/L (3.6-5.0); Protein, Total 6.7 g/dL (6.0-8.3)
[2017-09-05 05:41] LABS: Blood Morphology Comment NOT SEEN (NOT SEEN); Platelet Estimate ADEQ; Toxic Granulation 1+; Urine White Blood Cell Casts OK
[2017-09-05] MEDS: INSULIN DETEMIR 100 UNIT/1 ML INSULIN SQ SCH ×2 (07:30→11:30)
[2017-09-05] MEDS: INSULIN -REGULAR HUMAN 50 UNIT/0.5 ML ML SQ SCH ×2 (07:30→11:30)
[2017-09-05] MEDS: VITAMIN D 1000 UNIT TAB PO SCH (08:58)
[2017-09-05] MEDS: PANTOPRAZOLE 40MG TABLET PO SCH (08:59)
[2017-09-05] MEDS: DULOXETINE 30 MG CAP PO SCH (08:59)
[2017-09-05] MEDS: LACTOBACILLUS/ACIDOPHILUS TAB PO SCH (08:59)
[2017-09-05] MEDS: FERROUS SULFATE 325 MG TAB PO SCH (08:59)
[2017-09-05] MEDS: CIPROFLOXACIN 400mg IV 400 MG/200 ML BAG IV SCH (09:00)
[2017-09-05] MEDS: INSULIN LISPRO 100 UNIT/1 ML SQ SCH (09:00)
[2017-09-05] MEDS: FENOFIBRATE 160 MG TAB PO SCH (09:04)
[2017-09-05 12:46] VITALS: BP 136/69; TEMP 96.9
--- NOTE | 2017-09-05 13:14 | P.DS ---
Admission Date: 09/03/17 Discharge Date: 09/05/17 Primary Care Provider: Dr. Cameron Disposition: ROUTINE DISCHARGE Discharge Condition: GOOD Reason for Admission: colitis Procedures: CT scan: FINDINGS: No hydronephrosis is present and no obstructing ureteral calculi. No suspicious renal masses. Isodense masses and pyelonephritis are not excluded on a stone protocol CT scan. Urinary bladder is contracted limiting assessment. Uterus is absent. Ovaries are absent or atrophic. Liver shows fatty infiltration with no focal liver lesion identified. No pancreas or splenic abnormality. Cholecystectomy clips are present. No biliary tree dilatation. No significant adrenal finding. No gastric dilatation or wall thickening. No dilation of small bowel loops. A few mesenteric lymph nodes are present in the right lower quadrant. The appendix is not uniquely identifiable and may be absent. No appendicitis findings. There is nonspecific stranding adjacent to the cecum and ascending colon mild in degree. Mishra of the ascending colon appear mildly edematous. There is additional small amount of fluid in stranding adjacent to the redundant sigmoid colon. No mass or bulky lymphadenopathy. No free air or pneumatosis. Disc and bony degenerative changes are present. Phleboliths and vascular arterial calcifications are present. IMPRESSION: No obstruction, free air or surgically emergent finding. Mild nonspecific inflammatory stranding and mesenteric lymph nodes in the right lower quadrant. There is minimal fluid in stranding adjacent to the sigmoid colon. Nonspecific colitis is most likely. No mass lesions seen. Fatty infiltration of the liver. Isodense masses and pyelonephritis are not excluded on stone protocol technique - Problems (1) Acute kidney injury superimposed on CKD Onset Date: 09/05/17 Current Visit: Yes Status: Acute (2) Colitis Onset Date: 09/05/17 Current Visit: Yes Status: Acute (3) Hyponatremia Onset Date: 04/30/14 Current Visit: No Status: Acute (4) UTI (urinary tract infection) Onset Date: 01/12/16 Current Visit: No Status: Acute Qualifiers: Urinary tract infection type: site unspecified Hematuria presence: without hematuria Qualified Code(s): N39.0 - Urinary tract infection, site not specified (5) Anemia Onset Date: 07/20/17 Current Visit: No Status: Chronic Qualifiers: Anemia type: B12 deficiency Vitamin B12 deficiency anemia type: unspecified B12 deficiency Qualified Code(s): D51.9 - Vitamin B12 deficiency anemia, unspecified (6) Chronic kidney disease Onset Date: 07/20/17 Current Visit: No Status: Chronic Qualifiers: Chronic kidney disease stage: stage 4 (severe) Qualified Code(s): N18.4 - Chronic kidney disease, stage 4 (severe) (7) Diabetes mellitus Onset Date: 07/20/17 Current Visit: No Status: Chronic Qualifiers: Diabetes mellitus type: type 2 Diabetes mellitus shelter insulin use: with filler leaf cutter long use Diabetes mellitus complication status: with kidney complications Diabetes mellitus complication detail: with chronic kidney disease Chronic kidney disease stage: stage 4 (severe) Qualified Code(s): E11.22 - Type 2 diabetes mellitus with diabetic chronic kidney disease; N18.4 - Chronic kidney disease, stage 4 (severe); N18.4 - Chronic kidney disease, stage 4 (severe); N18.4 - Chronic kidney disease, stage 4 (severe); N18.4 - Chronic kidney disease, stage 4 (severe); Z79.4 - senior living (current) use of insulin; Z79.4 - emt intermediate (current) use of insulin; Z79.4 - senior living (current) use of insulin; Z79.4 - emt intermediate (current) use of insulin (8) Diarrhea Onset Date: 09/22/15 Current Visit: No Status: Acute Qualifiers: Diarrhea type: unspecified type Qualified Code(s): R19.7 - Diarrhea, unspecified (9) Obese Onset Date: 08/23/16 Current Visit: No Status: Chronic Qualifiers: Obesity type: unspecified obesity type Obesity classification: adult class 1 (BMI 30 - 34.9) Serious obesity comorbidity presence: without serious comorbidity Body mass index: BMI 32.0-32.9 Qualified Code(s): E66.9 - Obesity, unspecified; Z68.32 - Body mass index (BMI) 32.0-32.9, adult (10) CHF (congestive heart failure) Onset Date: 07/20/17 Current Visit: No Status: Chronic Qualifiers: Heart failure type: diastolic Heart failure chronicity: chronic Qualified Code(s): I50.32 - Chronic diastolic (congestive) heart failure (11) GERD (gastroesophageal reflux disease) Onset Date: 07/20/17 Current Visit: No Status: Suspected Qualifiers: Esophagitis presence: esophagitis presence not specified Qualified Code(s) : K21.9 - Gastro-esophageal reflux disease without esophagitis Brief History of Present Illness: 46-year-old female with history of diabetes, hypertension, CHF and chronic renal disease. Patient came in with abdominal pain scan showed sigmoid colitis. Patient was admitted for further treatment. Hospital Course: Patient presented with abdominal pain. Patient found to have sigmoid colitis. Patient also found to have a UTI positive for Klebsiella pneumoniae. Patient was given IV antibiotic therapy. No intervention was needed. At discharge no significant abdominal pain, nausea vomiting noted. At discharge patient will continue with Cipro 250 mg 1 pill twice daily and Flagyl 500 mg 1 pill 3 times a day for 7 days. Recommendation is to recheck urine culture after that time to monitor resolution. Recommendation is for the patient follow up with GI in 2 -4 weeks to monitor progress. Recommendation is to have a colonoscopy in 4-6 weeks to further evaluate. Patient with diabetes. Patient will continue with her medications. Recommendation is to maintain blood sugars less 140 fasting and less than 2 after meals. Further adjustment can be done by her PCP. Patient has chronic renal disease. Recommendation is to recheck lab-BMP in 1-2 weeks to monitor progress. Recommendation is for the patient follow up with nephrology as an outpatient to further monitor. Patient has CHF. Patient continue with a 1500 cc per day fluid restriction. She will continue with her diuretic therapy. Further adjustment can be done by her PCP. Patient has hyperlipidemia. She will continue with her medication. Patient has anemia. She will continue with supplementation therapy. Recommendation is to recheck CBC to monitor progress. Vital Signs/Physical Exam: Temp Pulse Resp BP Pulse Ox 96.9 F 98 H 18 136/69 100 09/05/17 12:00 09/05/17 12:09/05/17 12:00 09/05/17 12:09/05/17 12:00 General: Alert, In no apparent distress, Oriented x3, Cooperative HEENT: Atraumatic Neck: Supple Respiratory: Clear to auscultation bilaterally, Normal air movement Cardiovascular: Normal pulses, Regular rate/rhythm Gastrointestinal: Normal bowel sounds, Soft and benign, Non-distended, No tenderness, No masses, No rebound, No guarding Musculoskeletal: No erythema, No tenderness, No warmth Integumentary: No tenderness/swelling, No erythema, No warmth, No cyanosis Neurological: Normal speech, Normal strength at 5/5 x4 extr, Normal tone, Normal affect Laboratory Data at Discharge: WBC 5.2 K/uL (4.3-10.9) 09/05/17 04:32 Hgb 7.9 g/dL (12.0-15.0) L* 09/05/17 04:32 Hct 23.7 % (36.0-45.0) L 09/05/17 04:32 Plt Count 239 K/uL (152-406) D 09/05/17 04:32 Sodium 135 mEq/L (135-145) 09/05/17 04:32 Potassium 3.5 mEq/L (3.6-5.0) L 09/05/17 04:32 BUN 31 mg/dL (6-20) H 09/05/17 04:32 Creatinine 2.22 mg/dL (0.44-1.00) H 09/05/17 04:32 Glucose 178 mg/dL (65-120) H 09/05/17 04:32 Total Bilirubin 0.2 mg/dL (0.3-1.2) L 09/05/17 04:32 AST 12 IU/L (10-42) 09/05/17 04:32 ALT 13 IU/L (10-60) 09/05/17 04:32 Alkaline Phosphatase 35 IU/L (42-121) L 09/05/17 04:32 Amylase 44 U/L (28-100) 09/03/17 14:50 Lipase 38 U/L (22-51) 09/03/17 14:50 Home Medications: Amitriptyline [Elavil*] 100 mg PO BEDTIME 09/03/17 Cholecalciferol (Vitamin D3) [Vitamin D3] 1 tab PO DAILY 09/03/17 Cyanocobalamin (Vitamin B-12) [Vitamin B12] 1 tab PO DAILY 09/03/17 Duloxetine [Cymbalta *] 30 mg PO DAILY 09/03/17 Fenofibrate [Tricor*] 160 mg PO DAILY 09/03/17 Ferrous Sulfate [Iron] 325 mg PO DAILY 09/03/17 Furosemide [Lasix*] 40 mg PO BID 09/03/17 Insulin Glargine,Hum.rec.anlog [Toujeo Solostar] 40 units SQ AC 09/03/17 Insulin Lispro [Humalog*] 20 units SQ TID 09/03/17 Liraglutide [Victoza 2-Raghu] 1.8 units SQ BEDTIME 09/03/17 Magnesium Oxide [Magnesium] 500 mg PO DAILY 09/03/17 Melatonin/Pyridoxine HCl (B6) [Melatonin 3 mg Tablet] 3 mg PO BEDTIME 09/03/17 Pantoprazole [Protonix Tab*] 40 mg PO DAILY 09/03/17 Gabapentin [Neurontin*] 600 mg PO DAILYPRN PRN 09/04/17 Ciprofloxacin HCl [Cipro 250 MG Tablet*] 250 mg PO BID #14 tab 09/05/17 Lactobacillus Acidophilus [Acidophilus] 1 each PO TID #30 capsule 09/05/17 Metronidazole [Flagyl] 500 mg PO Q8H #21 tablet 09/05/17 New Medications: Ciprofloxacin HCl [Cipro 250 MG Tablet*] 250 mg PO BID #14 tab Lactobacillus Acidophilus [Acidophilus] 1 each PO TID #30 capsule Metronidazole [Flagyl] 500 mg PO Q8H #21 tablet Patient Discharge Instructions: 1. Patient will need to follow up with her PCP in 1 week to follow up this hospitalization. 2. Patient presented with abdominal pain. Patient found to have sigmoid colitis. Patient also found to have a UTI positive for Klebsiella. No intervention was needed. At discharge patient will continue with Cipro 250 mg 1 pill twice daily and Flagyl 500 mg 1 pill 3 times a day for 7 days. Recommendation is to recheck urine culture after that time to monitor resolution. Recommendation is for the patient follow up with GI in 2-4 weeks to monitor progress. Recommendation is to have a colonoscopy in 4-6 weeks to further evaluate. 3. Patient with diabetes. Patient will continue with her medications. Recommendation is to maintain blood sugars less 140 fasting and less than 2 after meals. Further adjustment can be done by her PCP. 4. Patient has chronic renal disease. Recommendation is to recheck lab-BMP in 1-2 weeks to monitor progress. Recommendation is for the patient follow up with nephrology as an outpatient to further monitor. 5. Patient has anemia. Recommendation is to recheck CBC in 1 week to monitor progress. Patient will continue with her supplementation. Diet: ADA Activity: Fall precautions Time spent managing pt's care (in minutes): 55
--- NOTE | 2017-09-05 19:55 | P.CNS ---
Date of Consult: 09/05/17 Reason for Consult: OMAR/ CKD IV Requesting Physician: Vasquez Buenrostro Primary Care Provider: Dr. Cameron Chief Complaint: colitis History of Present Illness: Ms Barbour is a 46 years old woman with history of CKD, DM II, obesity, IBS, who start about 1 week ago with nausea, vomiting and diarrhea. She also has had abdominal pain, diffuse, 7/10 of intensity. She denied any fever or chills at home. The patient was not able to tolerated food or liquids because vomiting. ER work up was remarkable for normal WBC count, however, she has signs of dehydration, sodium and chloride were low, and her renal function got worse as well. CT abd/pelvis consistent with colitis. 18:07 This 46 yrs old Female presents to ER via Wheelchair with complaints of gs Vomiting, Weakness. 18:07 The patient presents to the emergency department with nausea, vomiting, diarrhea, gs abdominal pain. Onset: The symptoms/episode began/occurred 3 day(s) ago. Possible causes: unknown. The symptoms are aggravated by nothing. The symptoms are alleviated by nothing. Associated signs and symptoms: Pertinent positives: abdominal pain, Pertinent negatives: fever. Severity of symptoms: At their worst the symptoms were moderate in the emergency department the symptoms are unchanged. The patient has experienced similar episodes in the past, a few times. cant keep down fluids. Allergies metformin Allergy (Verified 08/22/16 19:56) Unknown diphenhydramine HCl [From Benadryl] Adverse Reaction (Verified 08/22/16 15:45) Nausea/Vomiting linagliptin [From Tradjenta] Adverse Reaction (Verified 08/22/16 15:45) weight loss TRIGENTA Adverse Reaction (Severe, Uncoded 08/22/16 19:57) Nausea/Vomiting Home medications list reviewed: Yes Home Medications: Amitriptyline [Elavil*] 100 mg PO BEDTIME 09/03/17 Cholecalciferol (Vitamin D3) [Vitamin D3] 1 tab PO DAILY 09/03/17 Cyanocobalamin (Vitamin B-12) [Vitamin B12] 1 tab PO DAILY 09/03/17 Duloxetine [Cymbalta *] 30 mg PO DAILY 09/03/17 Fenofibrate [Tricor*] 160 mg PO DAILY 09/03/17 Ferrous Sulfate [Iron] 325 mg PO DAILY 09/03/17 Furosemide [Lasix*] 40 mg PO BID 09/03/17 Insulin Glargine,Hum.rec.anlog [Toujeo Solostar] 40 units SQ AC 09/03/17 Insulin Lispro [Humalog*] 20 units SQ TID 09/03/17 Liraglutide [Victoza 2-Raghu] 1.8 units SQ BEDTIME 09/03/17 Magnesium Oxide [Magnesium] 500 mg PO DAILY 09/03/17 Melatonin/Pyridoxine HCl (B6) [Melatonin 3 mg Tablet] 3 mg PO BEDTIME 09/03/17 Pantoprazole [Protonix Tab*] 40 mg PO DAILY 09/03/17 Gabapentin [Neurontin*] 600 mg PO DAILYPRN PRN 09/04/17 Ciprofloxacin HCl [Cipro 250 MG Tablet*] 250 mg PO BID #14 tab 09/05/17 Lactobacillus Acidophilus [Acidophilus] 1 each PO TID #30 capsule 09/05/17 Metronidazole [Flagyl] 500 mg PO Q8H #21 tablet 09/05/17 - Past Medical/Surgical History Diabetic: Yes -: Hypertension -: Hypertriglyceridemia -: Diabetes mellitus type 2 -: Diabetic neuropathy -: Anemia of chronic disease -: Recurrent UTI -: Chronic kidney disease -: Irritable bowel syndrome-diarrhea -: Osteoarthritis -: Former smoker -: Cholecystectomy -: Appendectomy -: Hysterectomy -: Tubal ligation -: Breast reduction -: Adenoidectomy Psychosocial/ Personal History: Patient is for 30 years, she has 3 children, she works at [employer]. - Family History Father Medical History: Stroke, Cancer Mother Medical History: Heart disease, Diabetes - Social History Smoking Status: Former smoker Alcohol use: Yes CD- Drugs: No Caffeine use: Yes Place of Residence: Home Review of Systems 10-point ROS is otherwise unremarkable General: Weakness, Malaise Gastrointestinal: Diarrhea Physical Examination Temp Pulse Resp BP Pulse Ox 96.9 F 98 H 18 136/69 100 09/05/17 12:00 09/05/17 12:00 09/05/17 12:00 09/05/17 12:00 09/05/17 12:00 General: Oriented x3, Cooperative HEENT: Normocephalic Neck: Supple Respiratory: Clear to auscultation bilaterally Cardiovascular: Regular rate/rhythm, No rubs Gastrointestinal: Soft and benign, No guarding, Hyperactive Musculoskeletal: No clubbing, No warmth Integumentary: No rashes, No cyanosis Neurological: Normal speech Hgb 7.9 Blood work reviewed in the chart. Imagings Data: EXAM DESCRIPTION: CT - Stone Protocol - 09/03/2017 4:47 pm CLINICAL HISTORY: Abdominal pain COMPARISON: CT study September 2016 TECHNIQUE: Axial 5 mm thick images were obtained without oral or IV contrast. The [id number] spans the entirety of the system partially obscuring uppermost abdomen and lung bases. All CT scans are performed using dose optimization technique as appropriate and may include automated exposure control or mA/KV adjustment according to patient size. FINDINGS: No hydronephrosis is present and no obstructing ureteral calculi. No suspicious renal masses. Isodense masses and pyelonephritis are not excluded on a stone protocol CT scan. Urinary bladder is contracted limiting assessment. Uterus is absent. Ovaries are absent or atrophic. Liver shows fatty infiltration with no focal liver lesion identified. No pancreas or splenic abnormality. Cholecystectomy clips are present. No biliary tree dilatation. No significant adrenal finding. No gastric dilatation or wall thickening. No dilation of small bowel loops. A few mesenteric lymph nodes are present in the right lower quadrant. The appendix is not uniquely identifiable and may be absent. No appendicitis findings. There is nonspecific stranding adjacent to the cecum and ascending colon mild in degree. Mishra of the ascending colon appear mildly edematous. There is additional small amount of fluid in stranding adjacent to the redundant sigmoid colon. No mass or bulky lymphadenopathy. No free air or pneumatosis. Disc and bony degenerative changes are present. Phleboliths and vascular arterial calcifications are present. IMPRESSION: No obstruction, free air or surgically emergent finding. Mild nonspecific inflammatory stranding and mesenteric lymph nodes in the right lower quadrant. There is minimal fluid in stranding adjacent to the sigmoid colon. Nonspecific colitis is most likely. No mass lesions seen. Fatty infiltration of the liver. Isodense masses and pyelonephritis are not excluded on stone protocol technique. Conclusions/Impression: A/ HTN, controlled. Hyponatremia. Hypokalemia. CKD IV with proteinuria. DM II with CKD and Neuropathy. Anemia in chronic illness. P/ Continue current POC and Medications. Agree with IVF. No NSAIDs. Titrate insulin as needed to improved BG. Transfuse PRBC as needed. Replete potassium. AM labs. Daily weight. Thank you kindly for the consultation. Case discussed with Dr. Buenrostro.
[2017-09-05] MEDS ORDERED: GABAPENTIN 300 MG CAP PO ONE (23:36)
== END 2017-09-05 15:07 | disposition home or self-care (01) ==
LOC: ER 13:44 → ERHOLD 18:15 → 2ND 19:56
PROVIDERS: ADMIT Family Medicine; ATTEND Internal Medicine
DX: K52.9 Noninfective gastroenteritis and colitis, unspecified (principal); I13.0 Hypertensive heart and chronic kidney disease with heart failure and stage 1 through stage 4 chronic kidney disease, or unspecified chronic kidney disease; E11.22 Type 2 diabetes mellitus with diabetic chronic kidney disease; N18.4 Chronic kidney disease, stage 4 (severe); I50.32 Chronic diastolic (congestive) heart failure; N17.9 Acute kidney failure, unspecified; N30.00 Acute cystitis without hematuria; E87.1 Hypo-osmolality and hyponatremia; E66.9 Obesity, unspecified; Z68.34 Body mass index [BMI] 34.0-34.9, adult; E78.1 Pure hyperglyceridemia; E11.40 Type 2 diabetes mellitus with diabetic neuropathy, unspecified; K58.0 Irritable bowel syndrome with diarrhea; D64.9 Anemia, unspecified; B96.1 Klebsiella pneumoniae [K. pneumoniae] as the cause of diseases classified elsewhere
CPT/HCPCS: 36415; 74176; 76377; 80048; 80053; 80076; 81003; 81015; 81025; 82150; 82962; 83690; 85025; 87077; 87086; 87088; 87186; 87493; 94760; 96374; 96375; 99285; G0378; J0744; J1650; J2405; J3010; J7030

== ENCOUNTER 2017-10-04 04:32 | Emergency (ER) | payer BC ==
[2017-10-04] MEDS ORDERED: DEXAMETHASONE 10 MG/ML VIAL ONE (05:08)
--- NOTE | 2017-10-04 05:08 | ER ---
Nurse's Notes [facility] Name: Emily Barbour Age: 46 yrs Sex: Female : 1970 Arrival Date: 10/04/2017 Time: 04:33 Bed 14 Private MD: Jean-Paul Cameron Diagnosis: Radiculopathy, cervical region Presentation: 10/04 04:40 Presenting complaint: Patient states: right neck and shoulder pain for 6 months, pain ak1 increased last night after PT with traction. pt due to see surgeon on 10/14/17. Transition of care: patient was not received from another setting of care. Onset of symptoms is unknown. Risk Assessment: Do you want to hurt yourself or someone else? Patient reports no desire to harm self or others. Initial Sepsis Screen: Does the patient meet any 2 criteria? No. Patient's initial sepsis screen is negative. Does the patient have a suspected source of infection? No. Patient's initial sepsis screen is negative. Note gabapentin at 0300, norco at 2200. Care prior to arrival: None. 04:40 Method Of Arrival: Ambulatory ak1 04:40 Acuity: SAL[place] 3 ak1 Triage Assessment: 04:43 General: Appears uncomfortable, Behavior is crying. ak1 BUTCHER: 04:39 LMP N/A - Hysterectomy ak1 Historical: - Allergies: 04:43 Benadryl; ak1 04:43 metformin; ak1 04:43 Tradjenta; ak1 - Home Meds: 04:47 Amitriptyline Oral [Active]; Cymbalta 20 mg oral cpDR 1 cap daily [Active]; fenofibrate ak1 oral oral [Active]; gabapentin oral oral [Active]; Humalog Sub-Q [Active]; Sodium Bicarbonate Oral [Active]; Toujeo SoloStar subcutaneous subcutaneous [Active]; Tramadol Oral [Active]; Victoza 3-Raghu subcutaneous subcutaneous [Active]; [place] 5-325 mg Oral tab 1 tab every 4-6 hours [Active]; - PMHx: 04:43 Anemia; Diabetes - NIDDM; High Cholesterol; Hypertension; Renal Disease; Tendonitis in ak1 Elbows; - PSHx: 04:43 Cholecystectomy; Appendectomy; Hysterectomy; breast reduction; ak1 - Immunization history:: Adult Immunizations unknown. - Social history:: Smoking status: Patient/guardian denies using tobacco. - Ebola Screening: : No symptoms or risks identified at this time. Screenin:47 Abuse screen: Denies threats or abuse. Denies injuries from another. Nutritional ak1 screening: No deficits noted. Tuberculosis screening: No symptoms or risk factors identified. Fall Risk None identified. Assessment: 04:42 General: Appears uncomfortable, Behavior is cooperative, anxious, crying. Pain: bs1 Complains of pain in right side of neck Pain radiates to right shoulder, right arm Pain currently is 10 out of 10 on a pain scale. Neuro: Level of Consciousness is awake, alert, obeys commands, Reports dizziness, headache numbness in right arm/shoulder reports numbness and tingling in right shoulder and right arm. Denies blurred vision difficulty swallowing. Cardiovascular: Denies chest pain, palpitations, Heart tones S1 S2 present Capillary refill < 3 seconds Patient's skin is warm and dry. Respiratory: Reports shortness of breath at rest on exertion Airway is patent Trachea midline Respiratory effort is even, Respiratory pattern is regular, symmetrical, Breath sounds are clear bilaterally. GI: No signs and/or symptoms were reported involving the gastrointestinal system. : No deficits noted. EENT: No deficits noted. No signs and/or symptoms were reported regarding the EENT system. Derm: Skin is intact, Skin is pink, warm \\T\\ dry. normal. Musculoskeletal: Capillary refill < 3 seconds, Range of motion: limited in right shoulder/arm Reports weakness in right arm/shoulder numbness in right arm/shoulder pain in right side of neck/right shoulder/right arm. 04:49 Reassessment: Patient walked out of ER after Dr Valles spoke with patient and family bs1 regarding POC, patient became very upset and wanting to leave, patient states "They are not going to do anything for me here that I cant do at home." Dr Valles informed patient that he can give her some morphine and fentanyl for pain and that she will need to see her neurosurgeon. Patient became very angry and told her family that she was leaving. Patient stormed out of the ER not holding onto her right arm anymore, ambulating and moving her right arm with no apparent distress. 05:00 Reassessment: Patient walked back into ER, went back into room crying stating, "Im bs1 sorry, Im sorry." Nurse went up to Dr Valles and requested update on POC. Dr to give IM pain medications. Vital Signs: 04:39 BP 187 / 80; Pulse 110; Resp 22; Temp 99.4(TE); Pulse Ox 99% on R/A; Weight 92.99 kg ak1 (R); Height 5 ft. 5 in. (165.10 cm) (R); Pain 10/10; 05:15 BP 179 / 73; Pulse 101; Resp 20 S; Pulse Ox 100% on R/A; bs1 05:24 BP 169 / 76; Pulse 99; Resp 17; Pulse Ox 97% on R/A; bs1 04:39 Body Mass Index 34.11 (92.99 kg, 165.10 cm) ak1 ED Course: 04:33 Patient arrived in ED. ds1 04:33 Jean-Paul Cameron DO is Private Physician. ds1 04:39 Arm band placed on Patient placed in an exam room, on a stretcher, on pulse oximetry, ak1 Patient notified of wait time. 04:40 Yakov Valles MD is Attending Physician. ps1 04:42 Triage completed. ak1 04:42 Saniya Thomas, JOCY is Primary Nurse. bs1 04:48 Patient has correct armband on for positive identification. Bed in low position. Call ak1 light in reach. Side rails up X 1. Adult w/ patient. Pulse ox on. NIBP on. 04:53 No provider procedures requiring assistance completed. Patient did not have IV access bs1 during this emergency room visit. Administered Medications: 05:12 Drug: fentaNYL (PF) 100 mcg Route: IM; Site: left deltoid; bs1 05:35 Follow up: Response: No adverse reaction bs1 05:12 Drug: Decadron 10 mg Route: IM; Site: right deltoid; bs1 05:35 Follow up: Response: No adverse reaction bs1 Outcome: 04:53 Condition: stable bs1 05:07 Discharge ordered by . ps1 05:35 Discharged to home ambulatory, with family, offered wheelchair, patient denies bs1 05:35 Discharge instructions given to patient, family, Instructed on discharge instructions, follow up and referral plans. Demonstrated understanding of instructions, follow-up care, Instructed to Follow up with Dr Patel. Patient and family state understanding of POC 05:36 Patient left the ED. bs1 Signatures: Skylar Hahn ds1 Corrine Zaidi RN RN ak1 Yakov Valles MD MD ps1 Saniya Thomas RN RN bs1 Corrections: (The following items were deleted from the chart) 05:17 04:53 Eloped from patient exam room, after seeing physician Time discovered patient bs1 gone: October 04, 2017 at 04:49 bs1
--- NOTE | 2017-10-04 05:08 | EDPHYS ---
Physician Documentation [facility] Name: Emily Barbour Age: 46 yrs Sex: Female : 1970 Arrival Date: 10/04/2017 Time: 04:33 Bed 14 Private MD: Jean-Paul Cameron ED Physician Yakov Valles HPI: 10/04 04:51 This 46 yrs old Female presents to ER via Ambulatory with complaints of ps1 Shoulder Pain. 04:51 patient complaining of right shoulder pain. This is a chronic problem. Pain worse over ps1 last couple of days. Patient of Dr. Patel. Had recent MRI that reportedly saw spinal stenosis. She has had epidural injections and is currently being treated with tramadol, norco, and gabapentin. She has an appointment with a neurosurgeon on the . She states that she cannot wait that long. She states now that she has subjective arm numbness and tingling. Pain rated severe. Worse with movement. . 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/A - Hysterectomy ak1 Historical: - Allergies: 04:43 Benadryl; ak1 04:43 metformin; ak1 04:43 Tradjenta; ak1 - Home Meds: 04:47 Amitriptyline Oral [Active]; Cymbalta 20 mg oral cpDR 1 cap daily [Active]; fenofibrate ak1 oral oral [Active]; gabapentin oral oral [Active]; Humalog Sub-Q [Active]; Sodium Bicarbonate Oral [Active]; Toujeo SoloStar subcutaneous subcutaneous [Active]; Tramadol Oral [Active]; Victoza 3-Raghu subcutaneous subcutaneous [Active]; [place] 5-325 mg Oral tab 1 tab every 4-6 hours [Active]; - PMHx: 04:43 Anemia; Diabetes - NIDDM; High Cholesterol; Hypertension; Renal Disease; Tendonitis in ak1 Elbows; - PSHx: 04:43 Cholecystectomy; Appendectomy; Hysterectomy; breast reduction; ak1 - Immunization history:: Adult Immunizations unknown. - Social history:: Smoking status: Patient/guardian denies using tobacco. - Ebola Screening: : No symptoms or risks identified at this time. ROS: 04:51 Constitutional: Negative for fever, chills, and weight loss, Eyes: Negative for injury, ps1 pain, redness, and discharge, Cardiovascular: Negative for chest pain, palpitations, and edema, Respiratory: Negative for shortness of breath, cough, wheezing, and pleuritic chest pain, Abdomen/GI: Negative for abdominal pain, nausea, vomiting, diarrhea, and constipation, MS/Extremity: Negative for injury and deformity, Psych: Negative for depression, anxiety, suicide ideation, homicidal ideation, and hallucinations. 04:51 Neuro: Positive for numbness, tingling, of the right arm. Exam: 04:51 Constitutional: This is a well developed, well nourished patient who is awake, alert, ps1 and in no acute distress. Head/Face: Normocephalic, atraumatic. Eyes: Pupils equal round and reactive to light, extra-ocular motions intact. Lids and lashes normal. Conjunctiva and sclera are non-icteric and not injected. Chest/axilla: Normal chest wall appearance and motion. Nontender with no deformity. No lesions are appreciated. MS/ Extremity: Pulses equal, no cyanosis. Neurovascular intact. Full, normal range of motion. Patient was holding arm in internal rotation. Patient left in frustration and had FROM of affected limb. 04:51 Psych: Behavior/mood is angry, inappropriate for age, Affect is animated. Vital Signs: 04:39 BP 187 / 80; Pulse 110; Resp 22; Temp 99.4(TE); Pulse Ox 99% on R/A; Weight 92.99 kg ak1 (R); Height 5 ft. 5 in. (165.10 cm) (R); Pain 10/10; 05:15 BP 179 / 73; Pulse 101; Resp 20 S; Pulse Ox 100% on R/A; bs1 05:24 BP 169 / 76; Pulse 99; Resp 17; Pulse Ox 97% on R/A; bs1 04:39 Body Mass Index 34.11 (92.99 kg, 165.10 cm) ak1 MDM: 04:51 Data reviewed: vital signs, nurses notes. ED course: offered pain medication to ps1 patient. Requested patient contact the neurosurgeon that she has a previous established relationship with as he will be able to provide definitive care. Additionally that she needs to discuss with Dr. Patel other treatment modalities as she has a treatable diagnosis on MRI. No new workup is available in the ED. Will treat with 100mcg fentanyl and 10mg decadron. Patient stable for discharge. . 05:07 Patient medically screened. ps1 Administered Medications: 05:12 Drug: fentaNYL (PF) 100 mcg Route: IM; Site: left deltoid; bs1 05:35 Follow up: Response: No adverse reaction bs1 05:12 Drug: Decadron 10 mg Route: IM; Site: right deltoid; bs1 05:35 Follow up: Response: No adverse reaction bs1 Disposition: 10/04/17 05:07 Discharged to Home. Impression: Radiculopathy, cervical region. - Condition is Stable. - Medication Reconciliation Form, Thank You Letter, Antibiotic Education, Prescription Opioid Use, Work release form form. - Follow up: Private Physician; When: As needed; Reason: Recheck today's complaints, Continuance of care, Re-evaluation by your physician. Follow up: Emergency Department; When: As needed; Reason: Fever > 102 F, Worsening of condition. - Problem is chronic. - Symptoms have worsened. Signatures: Corrine Zaidi RN RN ak1 Yakov Valles MD MD ps1 Saniya Thomas RN RN bs1 Corrections: (The following items were deleted from the chart) 05:36 05:07 10/04/2017 05:07 Discharged to Home. Impression: Radiculopathy, cervical region. bs1 Condition is Stable. Forms are Medication Reconciliation Form, Thank You Letter, Antibiotic Education, Prescription Opioid Use. Follow up: Private Physician; When: As needed; Reason: Recheck today's complaints, Continuance of care, Re-evaluation by your physician. Follow up: Emergency Department; When: As needed; Reason: Fever > 102 F, Worsening of condition. Problem is chronic. Symptoms have worsened. ps1
[2017-10-04] MEDS ORDERED: FENTANYL CITR 100 MCG/2 ML ONE (05:09)
[2017-10-04 06:03] VITALS: TEMP 99.4
[2017-10-04 06:05] VITALS: BP 169/76; O2SAT 97
== END 2017-10-04 05:36 | disposition home or self-care (01) ==
LOC: ER 04:32
DX: M54.12 Radiculopathy, cervical region (principal); E78.00 Pure hypercholesterolemia, unspecified; I12.9 Hypertensive chronic kidney disease with stage 1 through stage 4 chronic kidney disease, or unspecified chronic kidney disease; E11.22 Type 2 diabetes mellitus with diabetic chronic kidney disease; N18.9 Chronic kidney disease, unspecified; Z88.8 Allergy status to other drugs, medicaments and biological substances
CPT/HCPCS: 96372; 99283; J1100; J3010

== ENCOUNTER 2017-10-05 16:51 | Emergency (ER) | payer BC ==
--- NOTE | 2017-10-05 18:52 | RAD REPORT ---
EXAM DESCRIPTION: RAD - Ankle Left 3 View - 10/05/2017 5:56 pm CLINICAL HISTORY: Foot and ankle pain, twisting injury COMPARISON: None. FINDINGS: No fracture is present at the ankle joint. There is lateral soft tissue swelling or edema. Transverse fracture is present at the base of the fifth metatarsal. No joint effusion seen. No joint space narrowing. No foreign body. Spurring is seen at the Achilles attachment with a very small plan tar spur present. IMPRESSION: Transverse fracture base of the fifth metatarsal.
--- NOTE | 2017-10-05 19:06 | EDPHYS ---
Physician Documentation [facility] Name: Emily Barbour Age: 46 yrs Sex: Female : 1970 Arrival Date: 10/05/2017 Time: 16:54 Bed 27 Private MD: Jean-Paul Cameron ED Physician Arian Arechiga HPI: 10/05 17:33 This 46 yrs old Female presents to ER via Ambulatory with complaints of Left pm1 ankle pain. 17:33 The patient presents with pain, swelling. The complaints affect the left lateral ankle. pm1 Context: The problem was sustained on a street or driveway, resulted from a mis-step, the patient can fully bear weight, the patient is able to ambulate. Onset: The symptoms/episode began/occurred yesterday. Modifying factors: the symptoms are aggravated by weight bearing. Associated signs and symptoms: Pertinent negatives calf tenderness, fever. Treatment prior to arrival includes: no previous treatment. The patient has not experienced similar symptoms in the past. Patient stepped off curve and rolled her left ankle. 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 - Hysterectomy aj1 Historical: - Allergies: 16:58 Benadryl; aj1 16:58 metformin; aj1 16:58 Tradjenta; aj1 - Home Meds: 16:58 Amitriptyline Oral [Active]; Cymbalta 20 mg Oral cpDR 1 cap daily [Active]; fenofibrate aj1 Oral [Active]; gabapentin Oral [Active]; Humalog Sub-Q [Active]; [place] 5-325 mg Oral tab 1 tab every 4-6 hours [Active]; Sodium Bicarbonate Oral [Active]; Toujeo SoloStar subcutaneous [Active]; Tramadol Oral [Active]; Victoza 3-Raghu subcutaneous [Active]; - PMHx: 16:58 Anemia; Diabetes - NIDDM; High Cholesterol; Hypertension; Renal Disease; Tendonitis in aj1 Elbows; - Immunization history:: Adult Immunizations up to date. - Social history:: Smoking status: Patient/guardian denies using tobacco. - Ebola Screening: : Patient denies travel to an Ebola-affected area in the 21 days before illness onset. ROS: 17:40 Constitutional: Negative for fever, chills, and weight loss, Eyes: Negative for injury, pm1 pain, redness, and discharge, ENT: Negative for injury, pain, and discharge, Neck: Negative for injury, pain, and swelling, Cardiovascular: Negative for chest pain, palpitations, and edema, Respiratory: Negative for shortness of breath, cough, wheezing, and pleuritic chest pain, Abdomen/GI: Negative for abdominal pain, nausea, vomiting, diarrhea, and constipation, Back: Negative for injury and pain. 17:40 : Negative for injury, bleeding, discharge, and swelling, Skin: Negative for injury, rash, and discoloration, Neuro: Negative for headache, weakness, numbness, tingling, and seizure. 17:40 MS/extremity: Positive for pain, of the left lateral ankle and lateral aspect of left foot. Exam: 17:40 Constitutional: This is a well developed, well nourished patient who is awake, alert, pm1 and in no acute distress. Head/Face: Normocephalic, atraumatic. Chest/axilla: Normal chest wall appearance and motion. Nontender with no deformity. No lesions are appreciated. Cardiovascular: Regular rate and rhythm with a normal S1 and S2. No gallops, murmurs, or rubs. Normal PMI, no JVD. No pulse deficits. Respiratory: Lungs have equal breath sounds bilaterally, clear to auscultation and percussion. No rales, rhonchi or wheezes noted. No increased work of breathing, no retractions or nasal flaring. Abdomen/GI: Soft, non-tender, with normal bowel sounds. No distension or tympany. No guarding or rebound. No evidence of tenderness throughout. Back: No spinal tenderness. No costovertebral tenderness. Full range of motion. Skin: Warm, dry with normal turgor. Normal color with no rashes, no lesions, and no evidence of cellulitis. 17:40 Musculoskeletal/extremity: Extremities: grossly normal except: noted in the lateral aspect of left foot and left lateral ankle: swelling, tenderness. Vital Signs: 16:58 BP 135 / 62; Pulse 102; Resp 20; Temp 98.0(TE); Pulse Ox 98% on R/A; Weight 97.52 kg aj1 (R); Height 5 ft. 5 in. (165.10 cm); Pain 5/10; 18:44 BP 120 / 68; Pulse 100; Resp 18; Pulse Ox 99% on R/A; mt 16:58 Body Mass Index 35.78 (97.52 kg, 165.10 cm) aj1 MDM: 17:33 Patient medically screened. pm1 17:35 Data reviewed: vital signs. ED course: Patient refused pain medication offered in ER. pm1 Says she has some at home for her chronic neck pain. 19:03 Counseling: I had a detailed discussion with the patient and/or guardian regarding: the pm1 historical points, exam findings, and any diagnostic results supporting the discharge/admit diagnosis, radiology results, the need for outpatient follow up, to return to the emergency department if symptoms worsen or persist or if there are any questions or concerns that arise at home. 10/05 17:33 Order name: Ankle Left 3 View XRAY; Complete Time: 18:54 pm1 10/05 18:48 Order name: Melchor wrap-joint; Complete Time: 19:40 pm1 10/05 18:56 Order name: Walking boot; Complete Time: 19:40 pm1 Administered Medications: No medications were administered Disposition: 10/05/17 19:06 Discharged to Home. Impression: Nondisplaced fracture of fifth metatarsal bone, left foot. - Condition is Stable. - Discharge Instructions: Metatarsal Fracture, Undisplaced. - Medication Reconciliation Form, Thank You Letter, Antibiotic Education, Prescription Opioid Use form. - Follow up: Emergency Department; When: As needed; Reason: Worsening of condition. Follow up: Private Physician; When: 2 - 3 days; Reason: Recheck today's complaints, Continuance of care, Re-evaluation by your physician. - Problem is new. - Symptoms have improved. Addendum: 10/07/2017 14:51 Co-signature as Attending Physician, Arian Arechiga MD I agree with the assessment and w a plan of care. Signatures: Dispatcher [employer] EDColleen Zabala RN RN aj1 Alvino Irizarry, CRADLE PLACER CRADLE PLACER pm1 Arian Arechiga MD MD wa Barnett, Mark RN RN mb3 Corrections: (The following items were deleted from the chart) 10/05 20:24 19:06 10/05/2017 19:06 Discharged to Home. Impression: Nondisplaced fracture of fifth mb3 metatarsal bone, left foot. Condition is Stable. Forms are Medication Reconciliation Form, Thank You Letter, Antibiotic Education, Prescription Opioid Use. Follow up: Emergency Department; When: As needed; Reason: Worsening of condition. Follow up: Private Physician; When: 2 - 3 days; Reason: Recheck today's complaints, Continuance of care, Re-evaluation by your physician. Problem is new. Symptoms have improved. pm1
--- NOTE | 2017-10-05 19:06 | ER ---
Nurse's Notes [facility] Name: Emily Barbour Age: 46 yrs Sex: Female : 1970 Arrival Date: 10/05/2017 Time: 16:54 Bed 27 Private MD: Jean-Paul Cameron Diagnosis: Nondisplaced fracture of fifth metatarsal bone, left foot Presentation: 10/05 16:55 Presenting complaint: Patient states: Fell yesterday and hurt her left foot. Reports aj1 pain is worse when walking. Patient ambulatory into [facility]. Transition of care: patient was not received from another setting of care. Onset of symptoms was October 04, 2017. Risk Assessment: Do you want to hurt yourself or someone else? Patient reports no desire to harm self or others. Initial Sepsis Screen: Does the patient meet any 2 criteria? No. Patient's initial sepsis screen is negative. Does the patient have a suspected source of infection? No. Patient's initial sepsis screen is negative. Care prior to arrival: None. 16:55 Method Of Arrival: Ambulatory aj1 16:55 Acuity: [place] 4 aj1 Triage Assessment: 16:58 General: Appears in no apparent distress. uncomfortable, Behavior is calm, cooperative, aj1 appropriate for age. Pain: Complains of pain in left foot Pain does not radiate. Pain currently is 5 out of 10 on a pain scale. at worst was 8 out of 10 on a pain scale. Musculoskeletal: Circulation, motion, and sensation intact. Injury Description: Fall. 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 - Hysterectomy aj1 Historical: - Allergies: 16:58 Benadryl; aj1 16:58 metformin; aj1 16:58 Tradjenta; aj1 - Home Meds: 16:58 Amitriptyline Oral [Active]; Cymbalta 20 mg Oral cpDR 1 cap daily [Active]; fenofibrate aj1 Oral [Active]; gabapentin Oral [Active]; Humalog Sub-Q [Active]; [place] 5-325 mg Oral tab 1 tab every 4-6 hours [Active]; Sodium Bicarbonate Oral [Active]; Toujeo SoloStar subcutaneous [Active]; Tramadol Oral [Active]; Victoza 3-Raghu subcutaneous [Active]; - PMHx: 16:58 Anemia; Diabetes - NIDDM; High Cholesterol; Hypertension; Renal Disease; Tendonitis in aj1 Elbows; - Immunization history:: Adult Immunizations up to date. - Social history:: Smoking status: Patient/guardian denies using tobacco. - Ebola Screening: : Patient denies travel to an Ebola-affected area in the 21 days before illness onset. Screenin:31 Abuse screen: Denies threats or abuse. Nutritional screening: No deficits noted. mb3 Tuberculosis screening: No symptoms or risk factors identified. Fall Risk None identified. Assessment: 17:30 General: Appears uncomfortable, well groomed, Behavior is calm, cooperative, mb3 appropriate for age. Pain: Complains of pain in lateral aspect of left foot, anterior aspect of left ankle and dorsum of left foot. Neuro: No deficits noted. Cardiovascular: No deficits noted. Respiratory: No deficits noted. GI: No deficits noted. No signs and/or symptoms were reported involving the gastrointestinal system. : No deficits noted. No signs and/or symptoms were reported regarding the genitourinary system. Vital Signs: 16:58 BP 135 / 62; Pulse 102; Resp 20; Temp 98.0(TE); Pulse Ox 98% on R/A; Weight 97.52 kg aj1 (R); Height 5 ft. 5 in. (165.10 cm); Pain 5/10; 18:44 BP 120 / 68; Pulse 100; Resp 18; Pulse Ox 99% on R/A; mt 16:58 Body Mass Index 35.78 (97.52 kg, 165.10 cm) aj1 ED Course: 16:54 Patient arrived in ED. sb2 16:54 Jean-Paul Cameron DO is Private Physician. sb2 16:57 Triage completed. aj1 16:58 Arm band placed on Patient placed in waiting room, Patient notified of wait time. aj1 17:22 Kevin Peralta, JOCY is Primary Nurse. mb3 17:30 Alvino Irizarry NP is PHCP. pm1 17:30 Arian Arechiga MD is Attending Physician. pm1 17:31 Patient has correct armband on for positive identification. Bed in low position. Call mb3 light in reach. Side rails up X 1. 17:52 X-ray completed. Portable x-ray completed in exam room. Patient tolerated procedure ml well. 17:54 Ankle Left 3 View XRAY In Process Unspecified. EDMS 20:23 No provider procedures requiring assistance completed. Patient did not have IV access mb3 during this emergency room visit. Administered Medications: No medications were administered Outcome: 19:06 Discharge ordered by . pm1 20:23 Discharged to home ambulatory, with family. mb3 20:23 Condition: stable 20:23 Discharge instructions given to patient, Instructed on discharge instructions, follow up and referral plans. Demonstrated understanding of instructions, follow-up care. 20:24 Patient left the ED. mb3 Signatures: Dispatcher [employer] EDMS Colleen Means, RN RN aj1 Rosetta Zamarripa Patrick, SENIOR ASSISTANT MANAGER SENIOR ASSISTANT MANAGER pm1 Kimberlee Branch mt, Sheri sb2 Kevin Peralta, RN RN mb3
[2017-10-05 20:28] VITALS: TEMP 98
[2017-10-05 20:29] VITALS: BP 120/68; O2SAT 99
== END 2017-10-05 20:24 | disposition home or self-care (01) ==
LOC: ER 16:51
DX: S92.355A Nondisplaced fracture of fifth metatarsal bone, left foot, initial encounter for closed fracture (principal); X58.XXXA Exposure to other specified factors, initial encounter; Y93.9 Activity, unspecified; Y92.488 Other paved roadways as the place of occurrence of the external cause; Y99.9 Unspecified external cause status; Z88.8 Allergy status to other drugs, medicaments and biological substances
CPT/HCPCS: 99283

== ENCOUNTER 2017-10-13 21:45 | Emergency (ER) | payer BC ==
--- OUTSIDE RECORDS SUMMARY | 2017-10-13 21:47 | XMS REPORT | Clinical Summary ---
:1970 Author Organization [facility] Address [address] [place] [address] Care Team Providers Name Role Phone Unavailable Primary Care Provider Unavailable Allergies Active Allergy Reactions Severity Noted Date Comments [id number]-Zvbdmyjgztmaz 10/10/2017 Metformin 10/10/2017 Linagliptin 10/10/2017 Current Medications Prescription Sig. Disp. Refills Start Date End Date Status furosemide (LASIX) 40 mg Take 40 mg by Active tablet mouth 2 (two) times a day. DULoxetine (CYMBALTA) 30 Take 30 mg by Active MG capsule mouth daily. insulin lispro (HumaLOG) Inject 20 Units Active 100 unit/mL injection under the skin 3 (three) times a day before meals. pantoprazole (PROTONIX) 40 Take 40 mg by Active MG EC tablet mouth daily. insulin Inject 40 Units Active glargine,hum.rec.anlog under the skin (TOUJEO SOLOSTAR U-300 daily. INSULIN SUBQ) fenofibrate (LOFIBRA) 160 Take 160 mg by Active MG tablet mouth daily. amitriptyline (ELAVIL) 100 Take 100 mg by Active MG tablet mouth nightly. liraglutide (VICTOZA Inject 1.8 mg Active 2-GILBERTO) 0.6 mg/0.1 mL (18 under the skin mg/3 mL) pen injector daily. ferrous sulfate 325 (65 Take 325 mg by Active FE) MG tablet mouth 2 (two) times a day. cyanocobalamin (VITAMIN Take 250 mcg by Active B-12) 250 MCG tablet mouth daily. magnesium gluconate Take 500 mg by Active (MAGONATE) 500 mg tablet mouth 2 (two) tablet times a day. cholecalciferol, vitamin Take 2,000 Units Active D3, (VITAMIN D3) 2,000 by mouth daily. unit capsule capsule Active Problems Not on file Encounters Date Type Specialty Care Team Description 10/10/2017 Office Visit Cardiology Edwin Robbins MD Pre-operative cardiovascular examination (Primary Dx); Chronic diastolic heart failure; Abnormal electrocardiogram; Diabetes mellitus without complication 10/10/2017 Orders Only Cardiology Provider, MD Thelma after 10/12/2016 Social History Tobacco Use Types Packs/Day Years Used Date Former Smoker Smokeless Tobacco: Never Used Alcohol Use Drinks/Week oz/Week Comments No Sex Assigned at Date Recorded Not on file Last Filed Vital Signs Vital Sign Reading Time Taken Blood Pressure 127/75 10/10/2017 11:39 AM CDT Pulse 108 10/10/2017 11:39 AM CDT Temperature - - Respiratory Rate - - Oxygen Saturation - - Inhaled Oxygen Concentration - - Weight 95.3 kg (210 lb) 10/10/2017 11:39 AM CDT Height 165.1 cm (5' 5") 10/10/2017 11:39 AM CDT Body Mass Index 34.95 10/10/2017 11:39 AM CDT Plan of Treatment Health Maintenance Due Date Last Done Comments DIABETIC FOOT EXAM 1980 DIABETIC RETINAL EYE EXAM 1980 URINE MICROALBUMIN 1980 CERVICAL CANCER SCREENING 10/14/1991 INFLUENZA VACCINE 11/16/2017 Procedures Procedure Name Priority Date/Time Associated Comments Diagnosis ECHOCARDIOGRAM 2D Routine 10/10/2017 1:00 Chronic diastolic Results for this COMPLETE W MMODE PM CDT heart failure procedure are in SPECTRAL COLOR DOPPLER the results (86636) section. ECG 12-LEAD Routine 10/06/2017 12:00 AM CDT [id number] Routine 10/06/2017 12:00 AM CDT after 10/12/2016 Results Echocardiogram complete w contrast and 3D if needed (10/10/2017 1:00 PM) LA diam s 4.00 cm [facility] BSA Maldonado 2.15 m2 [facility] BSA 2.02 m2 [facility] IVS,d 1.04 0.6 - 1.2 cm [facility] IVS/LVPW,2D 1.11 [facility] LV,d 4.29 cm [facility] LV EF,2D 68.47 % [facility] LV,s 2.92 cm [facility] LVPWD,d 0.93 cm [facility] MV E A ratio 0.85 mmHg [facility] BMI 34.95 kg/m2 [facility] E wave decelartion time 148.00 msec [facility] MV Peak A Garcia 1.11 m/s [facility] MV valve area p 1/2 method 5.13 cm2 [facility] MV Peak E Garcia 0.94 m/s [facility] MV stenosis pressure 1/2 time 42.92 ms [facility] LV SYS VOL 32.76 ml [facility] LV KRAUSE VOL 82.61 ml [facility] LV SI Teich 2D 24.68 ml/m2 [facility] LV SV Teich 2D 49.85 ml [facility] LV Vol s Teich PSAX 32.76 ml [facility] BSA Haycock 2.13 m2 [facility] AoV Cusp sep 2.10 [facility] Aortic Root 3.00 cm [facility] LV FS Teich 2D 31.93 [facility] MV AE ratio 1.18 [facility] LA Ao Ratio Mmode 1.33 [facility] LV FS Cube 2D 31.93 [facility] Pt Size 165.10 [facility] Pt Wt 95.26 [facility] LV SI Cube 2D 26.77 ml/m2 [facility] LV SV Cube 2D 54.06 ml [facility] LV vol d cube 2D 78.95 ml [facility] LV vol s cube 2D 24.90 ml [facility] EF 60.34 % [facility] E/A ratio 0.85 [facility] Narrative Performed At The left ventricle chamber size is normal. [facility] Left Ventricular ejection fraction is 60 - 65%. Normal left ventricular wall thickness and regional wall motion Left ventricular systolic function is normal. Spectral Doppler shows impaired relaxation pattern of left ventricular diastolic filling. Normal right ventricular size, wall thickness and global function Normal valves Unremarkable Color flow study No pericardial effusion seen Performing Organization Address City/State/Zipcode Phone Number [facility] [address] [place] [address] Miscellaneous Lab Result (10/06/2017) Specimen Blood Narrative Performed At ECG 12 lead (10/06/2017) Narrative Performed At after 10/12/2016 Insurance Payer Benefit Plan / Group Subscriber ID Type Phone Address BCBS BCBS CHOICE PPO/FEDERAL EMPL PPO xxxxxxxxxxxx PPO Home: [address] [phone] [place], [place] [id number]
[2017-10-13] MEDS ORDERED: ALBUTEROL 2.5 MG/3 ML NEB SOL ONE (22:54)
[2017-10-13] MEDS ORDERED: IPRATROPIUM BROM 0.5MG/2.5ML ONE (22:54)
[2017-10-13] MEDS ORDERED: NA CHLORIDE 0.9% 1,000 ML ONE (23:10)
[2017-10-13 23:19] LABS: Protime INR 1.2
[2017-10-13 23:23] LABS: Absolute Lymphocytes (CBC) 1.2 K/uL (0.7-4.9); Absolute Monocytes 0.7 K/uL (0.1-1.3); Absolute Neutrophil 10.1 K/uL (1.8-8.0); Basophils % 0.3 % (0-1.3); Eosinophils % 0.8 % (0-4.4); Lymphocytes % 10.2 % (15.3-44.8); MCH 28.7 pg (27.0-35.0); MCV 86.1 fL (80-100); MPV 8.6 fL (7.6-11.3); Monocytes % 5.6 % (3.3-12.3); RBC Red Blood Cell Count 2.43 M/uL (3.86-4.86)
--- NOTE | 2017-10-13 23:36 | RAD REPORT ---
EXAM DESCRIPTION: RAD - Chest Single View - 10/13/2017 11:29 pm CLINICAL HISTORY: FEVER Chest pain. COMPARISON: Chest Single View dated 08/30/2017; Chest Pa And Lat (2 Views) dated 07/24/2017; Chest Sing le View dated 07/19/2017; Chest Single View dated 07/12/2017 FINDINGS: Portable technique limits examination quality. The lungs are mildly underinflated but grossly clear. The heart is normal in size. No displaced fract ures. IMPRESSION: No acute intrathoracic process suspected.
[2017-10-13 23:39] LABS: Albumin 2.9 g/dL (3.4-5.0); Bilirubin Direct 0.1 mg/dL (0-0.2); Bilirubin Total 0.3 mg/dL (0.2-1.0)
[2017-10-13 23:42] LABS: Hematocrit 20.9 % (36.0-45.0)
[2017-10-14 01:23] LABS: Urine Blood 2+ (NEG); Urine Glucose TRACE (NEG); Urine Protein 3+ (NEG); Urine pH 5.5 (5.0-7.0)
[2017-10-14 01:40] LABS: Barbiturates NEGATIVE (NEGATIVE); Benzodiazepines POSITIVE (NEGATIVE); Cocaine NEGATIVE (NEGATIVE); METHAMPHETAM NEGATIVE (NEGATIVE); Methadone NEGATIVE (NEGATIVE); Opiates POSITIVE (NEGATIVE); Phencyclidine NEGATIVE (NEGATIVE); THC Cannibis NEGATIVE (NEGATIVE)
[2017-10-14 02:04] LABS: Urine Bacteria <20 /HPF (<20); Urine Culture Reflex Order REFLEXED
--- NOTE | 2017-10-14 05:49 | ER ---
Nurse's Notes [facility] Name: mEily Barbour Age: 47 yrs Sex: Female : 1970 Arrival Date: 10/13/2017 Time: 21:46 Bed 16 Private MD: Jean-Paul Cameron Diagnosis: Acute dyspnea;acute bibasilar pneumonia;Anemia in chronic kidney disease Presentation: 10/13 21:50 Presenting complaint: states: fever 101.4. Presenting complaint:. Transition of tl3 care: patient was not received from another setting of care. Onset of symptoms was October 13, 2017 at 20:00. Risk Assessment: Do you want to hurt yourself or someone else? Patient reports no desire to harm self or others. Initial Sepsis Screen: Does the patient meet any 2 criteria? Does the patient have a suspected source of infection? No. Patient's initial sepsis screen is negative. Care prior to arrival: Medication(s) given:. 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 N/A - Irregular menses jd3 Historical: - Allergies: 10/13 21:54 Tradjenta; tl3 21:54 metformin; tl3 21:54 Benadryl; tl3 - Home Meds: 22:39 Amitriptyline Oral [Active]; Cymbalta 20 mg Oral cpDR 1 cap daily [Active]; fenofibrate tl2 Oral [Active]; gabapentin Oral [Active]; Humalog Sub-Q [Active]; Powers 5-325 mg Oral tab 1 tab every 4-6 hours [Active]; Sodium Bicarbonate Oral [Active]; Toujeo SoloStar subcutaneous [Active]; Tramadol Oral [Active]; Victoza 3-Raghu subcutaneous [Active]; - PMHx: 21:54 Anemia; Diabetes - NIDDM; High Cholesterol; Hypertension; Renal Disease; Tendonitis in tl3 Elbows; - PSHx: 21:54 spinal fusion; Hysterectomy; Cholecystectomy; Appendectomy; breast reduction; tl3 - Immunization history:: Adult Immunizations up to date. - Social history:: Smoking status: Patient/guardian denies using tobacco, the patient reports quitting approximately 4 years ago. - Ebola Screening: : Patient denies travel to an Ebola-affected area in the 21 days before illness onset. Screenin:37 Abuse screen: Denies threats or abuse. Nutritional screening: No deficits noted. tl2 Tuberculosis screening: No symptoms or risk factors identified. Fall Risk IV access (20 points). Assessment: 22:32 General: Appears in no apparent distress. uncomfortable, Behavior is cooperative, tl2 appropriate for age, drowsy, listless. General: Pt had surgery on neck yesterday and developed fever today. Pt has been lethargic since administration of pain and anxiety medication. . Pain: Complains of pain in neck, left foot. Neuro: Level of Consciousness is lethargic, listless, Oriented to person, place, time, situation, Pt falls asleep quickly but is easy to arouse and answers questions appropriately. Cardiovascular: Denies chest pain. Respiratory: Airway is patent Respiratory effort is even, unlabored, Respiratory pattern is regular, symmetrical, Pt is drowsy and has apneic episodes, causes O2 to fall into 80's. Pt placed on NC with no change. NRB applied, O2 at 100% Breath sounds are clear bilaterally. GI: No signs and/or symptoms were reported involving the gastrointestinal system. : No signs and/or symptoms were reported regarding the genitourinary system. Derm: Skin is pale. Musculoskeletal: Circulation, motion, and sensation intact. 23:06 Reassessment: Removed NRB, placed O2 NC at 5 L, pt maintaining 100%. tl2 10/14 00:16 Reassessment: Pt appears more awake but is still drowsy. Decreased O2 to 3 L on NC, pt tl2 is maintaining 100%. 00:59 Reassessment: Patient appears in no apparent distress at this time. Patient and/or tl2 family updated on plan of care and expected duration. Pain level reassessed. Patient is alert, oriented x 3, equal unlabored respirations, skin warm/dry/pink. Reassessment: pt is awake and alert. Up to bedside commode without assistance. States she would like to go home. PA notified. General:. Neuro: Level of Consciousness is awake, alert, obeys commands, Oriented to person, place, time, situation. 03:07 Reassessment: Patient appears in no apparent distress at this time. Patient and/or tl2 family updated on plan of care and expected duration. Pain level reassessed. Patient is alert, oriented x 3, equal unlabored respirations, skin warm/dry/pink. Pt resting, O2 per nc at 2 L, maintaining O2 at 100%. 04:15 Reassessment: Pt out to CT. tl2 06:42 Reassessment: Patient appears in no apparent distress at this time. Patient and/or jd3 family updated on plan of care and expected duration. Pain level reassessed. Patient is alert, oriented x 3, equal unlabored respirations, skin warm/dry/pink. pt reported understanding of discharge instructions. Vital Signs: 10/13 21:54 BP 114 / 52; Pulse 114; Resp 18; tl3 22:32 BP 109 / 98; Pulse 109; Resp 20; Temp 100(O); Pulse Ox 100% on 15% Non-rebreather mask; tl2 23:06 BP 109 / 66; Pulse 109; Resp 23; Pulse Ox 100% on Nebulizer Mask; tl2 23:18 BP 108 / 56; Pulse 108; Resp 19; Pulse Ox 100% on 5 lpm NC; tl2 10/14 00:03 BP 114 / 63; Pulse 102; Resp 21; Pulse Ox 100% on 5 lpm NC; tl2 00:59 BP 119 / 76; Pulse 100; Resp 20; Temp 98.6(O); Pulse Ox 99% on 3 lpm NC; tl2 02:12 BP 115 / 68; Pulse 98; Resp 18; Pulse Ox 100% on 2 lpm NC; tl2 03:07 BP 131 / 70; Pulse 98; Resp 20; Pulse Ox 100% on 2 lpm NC; tl2 05:58 BP 117 / 53; Pulse 98; Resp 19 S; Pulse Ox 95% on R/A; jd3 06:44 BP 139 / 67; Pulse 97; Resp 18 S; Pulse Ox 95% on R/A; jd3 Vitals: 10/13 23:06 Cardiac Rhythm Assessment Sinus tach. tl2 ED Course: 21:46 Patient arrived in ED. ds1 21:47 Arian Del Cid MD is Private Physician. ds1 21:47 Jean-Paul Cameron DO is Private Physician. ds1 21:52 Triage completed. tl3 22:01 Darrick Rosenbaum PA is PHCP. cp 22:01 Arian Arechiga MD is Attending Physician. cp 22:32 Abi Richey, JOCY is Primary Nurse. tl2 22:37 Patient has correct armband on for positive identification. Bed in low position. Call tl2 light in reach. Side rails up X2. Adult w/ patient. 22:37 Inserted saline lock: 20 gauge in left antecubital area, using aseptic technique. Blood tl2 collected. 23:21 Chest Single View XRAY In Process Unspecified. EDMS 10/14 03:[address] via stretcher. kw1 04:15 CT Chest Wo Con In Process Unspecified. EDMS 04:15 Neck Soft Tissue W/Wo Contr In Process Unspecified. EDMS 04:15 CT completed. Patient tolerated procedure well. Patient moved back from CT. kw1 05:59 Arm band placed on. jd3 06:41 No provider procedures requiring assistance completed. IV discontinued, intact, jd3 bleeding controlled, No redness/swelling at site. Pressure dressing applied. Administered Medications: 10/13 23:04 Drug: Albuterol - atroVENT (3:1) (2.5 mg - 0.5 mg) 3 ml Route: Nebulizer; tl2 10/14 05:44 Follow up: Response: No adverse reaction jd3 10/13 23:18 Drug: NS 0.9% 1000 ml Route: IV; Rate: 1 bolus; Site: left antecubital; tl2 10/14 05:45 Follow up: Response: No adverse reaction; IV Status: Completed infusion; IV Intake: jd3 1000ml 05:57 Drug: Rocephin - (cefTRIAXone) 2 grams Route: IVPB; Infused Over: 30 mins; Site: left jd3 antecubital; 06:43 Follow up: Response: No adverse reaction; IV Status: Completed infusion jd3 Point of Care Testing: Blood Glucose: 10/13 23:18 Blood Glucose: 258 mg/dL; tl2 Ranges: Intake: 10/14 05:45 IV: 1000ml; Total: 1000ml. jd3 Outcome: 05:48 Discharge ordered by . maria m 06:41 Discharged to home ambulatory, with family. jd3 06:41 Condition: stable 06:41 Discharge instructions given to patient, family, Instructed on discharge instructions, follow up and referral plans. Demonstrated understanding of instructions, follow-up care. 06:43 Patient left the ED. jd3 Signatures: Dispatcher [employer] Skylar Whaley ds1 Erika Boland, RN RN bb Darrick Rosenbaum PA PA cp Knox, Taylor RN RN tl2 Arian Arechiga MD MD wa Davies, Jonathon, RN RN jd3 Emily Root kw1 Radha Arce, JOCY RN tl3 Corrections: (The following items were deleted from the chart) 01:25 00:59 BP 119 / 76; Pulse 100bpm; Resp 20bpm; Pulse Ox 99% 3 lpm Nasal Cannula; tl2 tl2 05:34 06 21:50 Acuity: SALENA 3 tl3 bb
--- NOTE | 2017-10-14 05:49 | EDPHYS ---
Physician Documentation [facility] Name: Emily Barbour Age: 47 yrs Sex: Female : 1970 Arrival Date: 10/13/2017 Time: 21:46 Bed 16 Private MD: Jean-Paul Cameron ED Physician Arian Arechiga HPI: 10/13 22:50 This 47 yrs old Female presents to ER via Wheelchair with complaints of Fever.cp 22:50 The patient reports fever, that was measured at 101.4 degrees Fahrenheit. Onset: The cp symptoms/episode began/occurred yesterday. Modifying factors: recent cervical fusion. Associated signs and symptoms: Pertinent negatives: abdominal pain, altered mental status, cough, diarrhea, vomiting. Severity of symptoms: in the emergency department the symptoms have improved mildly. 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 - Irregular menses jd3 Historical: - Allergies: 10/13 21:54 Tradjenta; tl3 21:54 metformin; tl3 21:54 Benadryl; tl3 - Home Meds: 22:39 Amitriptyline Oral [Active]; Cymbalta 20 mg Oral cpDR 1 cap daily [Active]; fenofibrate tl2 Oral [Active]; gabapentin Oral [Active]; Humalog Sub-Q [Active]; Goodwin 5-325 mg Oral tab 1 tab every 4-6 hours [Active]; Sodium Bicarbonate Oral [Active]; Toujeo SoloStar subcutaneous [Active]; Tramadol Oral [Active]; Victoza 3-Raghu subcutaneous [Active]; - PMHx: 21:54 Anemia; Diabetes - NIDDM; High Cholesterol; Hypertension; Renal Disease; Tendonitis in tl3 Elbows; - PSHx: 21:54 spinal fusion; Hysterectomy; Cholecystectomy; Appendectomy; breast reduction; tl3 - Immunization history:: Adult Immunizations up to date. - Social history:: Smoking status: Patient/guardian denies using tobacco, the patient reports quitting approximately 4 years ago. - Ebola Screening: : Patient denies travel to an Ebola-affected area in the 21 days before illness onset. ROS: 22:55 Constitutional: Positive for fever. cp 22:55 Eyes: Negative for injury, pain, redness, and discharge. cp 22:55 ENT: Negative for drainage from ear(s), ear pain, sore throat, difficulty swallowing, difficulty handling secretions. 22:55 Neck: Negative for swelling, swollen nodes, bony tenderness. 22:55 Cardiovascular: Negative for chest pain, edema. 22:55 Respiratory: Positive for shortness of breath, at rest. Negative for cough, wheezing. 22:55 Abdomen/GI: Negative for abdominal pain, vomiting, diarrhea, constipation, black/tarry stool, rectal bleeding. 22:55 Back: Negative for pain at rest, pain with movement. 22:55 : Negative for urinary symptoms. 22:55 Neuro: Negative for altered mental status, dizziness, headache, speech changes. 22:55 All other systems are negative. Exam: 23:00 Constitutional: The patient appears in no acute distress, non-diaphoretic, non-toxic, cp well developed, well nourished, sleeping 23:00 Head/Face: Normocephalic, atraumatic. cp 23:00 Eyes: Periorbital structures: appear normal, Pupils: equal, round, and reactive to light and accomodation, Extraocular movements: intact throughout, Conjunctiva: normal, no exudate, no injection, Sclera: no appreciated abnormality, Lids and lashes: appear normal, bilaterally. 23:00 ENT: External ear(s): are unremarkable, Ear canal(s): are normal, clear, TM's: bulging, is not appreciated, bilaterally, dullness, bilaterally, erythema, is not appreciated, bilaterally, Nose: is normal, Mouth: Lips: moist, Oral mucosa: pink and intact, moist, Posterior pharynx: is normal, airway is patent, no erythema, no exudate. 23:00 Neck: Lymph nodes: no appreciated lymphadenopathy, noted surgical wound left anterior neck that appears w/o erythema or swelling. 23:00 Chest/axilla: Inspection: normal, Palpation: is normal, no crepitus, no tenderness. 23:00 Cardiovascular: Rate: tachycardic, Rhythm: regular, Pulses: Pulses are 2+ in right radial artery and left radial artery. Edema: is not appreciated, JVD: is not appreciated. 23:00 Respiratory: the patient does not display signs of respiratory distress, Respirations: labored breathing, is not present, accessory muscle usage, is absent, intercostal retractions, are absent, shallow respirations, that is moderate, tachypnea, is not appreciated, Breath sounds: decreased breath sounds, that are moderate, are located in both bases, stridor, is not appreciated, wheezing: is not appreciated. 23:00 Abdomen/GI: Inspection: obese Bowel sounds: active, all quadrants, Palpation: abdomen is soft and non-tender, in all quadrants, rebound tenderness, is not appreciated, voluntary guarding, is not appreciated, involuntary guarding, is not appreciated. 23:00 Back: pain, is absent, ROM is normal. 23:00 Skin: cellulitis, is not appreciated, no rash present. 23:00 Neuro: Orientation: to person, place \T\ time. Mentation: able to follow commands, slow to respond, Cerebellar function: is grossly normal, Motor: moves all fours, strength is normal, Sensation: no obvious gross deficits. 23:05 ECG was reviewed by the Attending Physician. Vital Signs: 21:54 BP 114 / 52; Pulse 114; Resp 18; tl3 22:32 BP 109 / 98; Pulse 109; Resp 20; Temp 100(O); Pulse Ox 100% on 15% Non-rebreather mask; tl2 23:06 BP 109 / 66; Pulse 109; Resp 23; Pulse Ox 100% on Nebulizer Mask; tl2 23:18 BP 108 / 56; Pulse 108; Resp 19; Pulse Ox 100% on 5 lpm NC; tl2 10/14 00:03 BP 114 / 63; Pulse 102; Resp 21; Pulse Ox 100% on 5 lpm NC; tl2 00:59 BP 119 / 76; Pulse 100; Resp 20; Temp 98.6(O); Pulse Ox 99% on 3 lpm NC; tl2 02:12 BP 115 / 68; Pulse 98; Resp 18; Pulse Ox 100% on 2 lpm NC; tl2 03:07 BP 131 / 70; Pulse 98; Resp 20; Pulse Ox 100% on 2 lpm NC; tl2 05:58 BP 117 / 53; Pulse 98; Resp 19 S; Pulse Ox 95% on R/A; jd3 06:44 BP 139 / 67; Pulse 97; Resp 18 S; Pulse Ox 95% on R/A; jd3 MDM: 10/13 22:01 Patient medically screened. 10/14 02:45 Data reviewed: vital signs, nurses notes, lab test result(s), EKG, radiologic studies, cp plain films. 02:48 Physician consultation: Anabel Menon MD was contacted at 02:48, regarding admission, cp to the telemetry unit. patient's condition, and will see patient in ED, shortly. 03:15 Physician consultation: Anabel Menon MD in the emergency department to see patient at 03:00, wants CT of neck and chest. 05:41 Test interpretation: by ED physician or midlevel provider: labs noted for UA 3+ wa protein. 5-10 wbc's. elevated BNP at 3152. leukocytosis. anemia. normocytic. hyperglycemia. real insufficiency. . Test interpretation: by ED physician or midlevel provider: CT neck: low density fluid in the retropharyngeal space about 1.6 cm. consider seroma vs. abscess. ED course: 05:30 hrs: pt desires to go home. alert. talking normally with spouse and MD. does not want admission. would rather f/u with her doctor. advised d/c tizinidine. will give a dose of IV abx in ED for lower bibasilar infiltrate. pt on augmentin at home. will continue. will print out her labs to bring to her physician. . 05:54 Test interpretation: by ED physician or midlevel provider: EKG: sinus tach. RBBB. ne 10/13 22:48 Order name: Urine Microscopic Only; Complete Time: 02:44 10/13 22:48 Order name: Basic Metabolic Panel; Complete Time: 23:53 10/13 23:54 Interpretation: Normal except: NA 131; CL 96; GLUC 249; BUN 34; CRE 3.20; GFR 16; CA cp 8.3. 10/13 22:48 Order name: Blood Culture Adult (2) 10/13 22:48 Order name: CBC with Diff; Complete Time: 23:53 10/13 23:54 Interpretation: Normal except: WBC 12.2; RBC 2.43; HGB 7.0; HCT 20.9; RDW 15.4; SESAR% cp 83.1; LYM% 10.2; NEUT A 10.1. 10/13 22:48 Order name: Lactate; Complete Time: 23:53 10/14 01:01 Interpretation: LAC 1.1; Reviewed. 10/13 22:48 Order name: LFT's; Complete Time: 23:53 cp 10/13 23:55 Interpretation: Normal except: TP 9.0; ALB 2.9; GLOB 6.1; A/G 0.5. cp 10/13 22:48 Order name: Lipase; Complete Time: 23:53 cp 10/14 01:01 Interpretation: Reviewed. 10/13 22:48 Order name: Procalcitonin; Complete Time: 23:53 cp 10/13 22:48 Order name: Protime (+inr); Complete Time: 23:38 cp 10/13 23:55 Interpretation: Abnormal: PT 14.2. cp 10/13 22:48 Order name: Ptt, Activated; Complete Time: 23:38 cp 10/13 22:52 Order name: UDS; Complete Time: 01:44 cp 10/13 22:52 Order name: BNP; Complete Time: 02:44 cp 10/14 01:11 Order name: Urine Dipstick--Ancillary (enter results); Complete Time: 01:44 [facility] 10/13 22:48 Order name: Urine Test (obtain specimen); Complete Time: 01:05 cp 10/13 22:48 Order name: Chest Single View XRAY; Complete Time: 23:38 cp 10/13 23:38 Interpretation: Report review. 10/13 22:48 Order name: Accucheck; Complete Time: 23:18 cp 10/13 22:48 Order name: Cardiac monitoring; Complete Time: 23:05 cp 10/13 22:48 Order name: EKG - Nurse/Tech; Complete Time: 23:05 cp 10/13 22:48 Order name: IV Saline Lock - Large Bore; Complete Time: 22:49 cp 10/13 22:48 Order name: Labs collected and sent; Complete Time: 22:49 cp 10/14 01:11 Order name: Urine --Ancillary (enter results); Complete Time: 01:44 rg2 10/14 02:06 Order name: Urine Culture EDAR 10/14 03:04 Order name: Type And Screen; Complete Time: 05:39 tl2 10/14 03:05 Order name: CT Chest Wo Con cp 10/14 03:09 Order name: Neck Soft Tissue W/Wo Contr EDMS 10/13 22:48 Order name: O2 Per Protocol; Complete Time: 22:49 cp 10/13 22:48 Order name: O2 Sat Monitoring; Complete Time: 22:49 cp 10/13 22:48 Order name: Urine Dipstick-Ancillary (obtain specimen); Complete Time: 01:06 cp EC/28 23:05 Rate is 109 beats/min. Rhythm is regular. [place] interval is normal. QRS interval is cp prolonged. QT interval is normal. Interpreted by me. Reviewed by me. Administered Medications: 23:04 Drug: Albuterol - atroVENT (3:1) (2.5 mg - 0.5 mg) 3 ml Route: Nebulizer; tl2 10/14 05:44 Follow up: Response: No adverse reaction jd3 10/13 23:18 Drug: NS 0.9% 1000 ml Route: IV; Rate: 1 bolus; Site: left antecubital; tl2 10/14 05:45 Follow up: Response: No adverse reaction; IV Status: Completed infusion; IV Intake: jd3 1000ml 05:57 Drug: Rocephin - (cefTRIAXone) 2 grams Route: IVPB; Infused Over: 30 mins; Site: left jd3 antecubital; 06:43 Follow up: Response: No adverse reaction; IV Status: Completed infusion jd3 Point of Care Testing: Blood Glucose: 10/13 23:18 Blood Glucose: 258 mg/dL; tl2 Ranges: Critical Glucose Levels:Adult <50 mg/dl or >400 mg/dl <40 mg/dl or >180 mg/dl Disposition: 10/14 08:01 Co-signature as Attending Physician, Arian Arechiga MD I agree with the assessment and wa plan of care. Disposition: 10/14/17 05:48 Discharged to Home. Impression: Acute dyspnea, acute bibasilar pneumonia, Anemia in chronic kidney disease. - Condition is Stable. - Discharge Instructions: Anemia, Nonspecific, Pneumonia, Adult, Lklm-rl-Shwu, Hyperglycemia, Vbkl-[id number]. - Medication Reconciliation Form, Thank You Letter, Antibiotic Education, Prescription Opioid Use form. - Follow up: Private Physician; When: 1 - 2 days; Reason: Recheck today's complaints. - Problem is new. - Symptoms have improved. - Notes: continue your antibiotics as prescribed. follow up with your surgeon within 48 hours as there is some fluid in the space in the neck surrounding where you had the surgery. return here immediately if worsening concerns othrwise Signatures: Dispatcher [employer] EDAR Darrick Rosenbaum PA PA cp Abi Richey, RN RN tl2 Arian Arechiga MD MD wa Davies, Jonathon, RN RN jd3 Radha Arce RN RN tl3 Corrections: (The following items were deleted from the chart) 10/13 23:54 23:53 Normal except: WBC 12.2; RBC 2.43; HGB 7.0; HCT 20.9; RDW 15.4; SESAR% 83.1; LYM% cp 10.2. cp 23:54 23:54 Normal except: NA 131; CL 96; GLUC 249; BUN 34; CRE 3.20; GFR 16. cp cp 10/14 01:05 10/13 22:48 [place] ordered. cp tl2 10/14 02:06 00:02 Arterial Blood Gas+RC.LAB.BRZ ordered. EDAR EDMS 05:48 05:48 10/14/2017 05:48 Discharged to Home. Impression: Acute dyspnea; acute bibasilar wa pneumonia. Condition is Stable. Forms are Medication Reconciliation Form, Thank You Letter, Antibiotic Education, Prescription Opioid Use. Follow up: Private Physician; When: 1 - 2 days; Reason: Recheck today's complaints. Problem is new. Symptoms have improved. ne 06:43 05:48 10/14/2017 05:48 Discharged to Home. Impression: Acute dyspnea; acute bibasilar jd3 pneumonia; Anemia in chronic kidney disease. Condition is Stable. Forms are Medication Reconciliation Form, Thank You Letter, Antibiotic Education, Prescription Opioid Use. Follow up: Private Physician; When: 1 - 2 days; Reason: Recheck today's complaints. Problem is new. Symptoms have improved. ne
[2017-10-14] MEDS ORDERED: NA CHLORIDE 0.9% 100 ML IV ONE (05:50)
[2017-10-14] MEDS ORDERED: CEFTRIAXONE 1000 MG/VIAL ONE (05:50)
[2017-10-14 06:53] VITALS: TEMP 98.6
[2017-10-14 06:57] VITALS: BP 117/53; O2SAT 95
--- NOTE | 2017-10-14 09:23 | EKG ---
Test Date: 2017-10-13 Test Time: 22:56:45 Financial Business Analyst: CAIO MEASUREMENT RESULTS: Intervals: Rate: 109 CT: 146 QRSD: 142 QT: 380 QTc: 511 [place]: P: 55 CT: 146 QRS: 268 T: 34 INTERPRETIVE STATEMENTS: Sinus tachycardia Right bundle branch block Abnormal ECG Compared to ECG 08/30/2017 10:51:20 Myocardial infarct finding no longer present Electronically Signed On 10-14-17 09:22:52 CDT by Magdiel Keith
--- NOTE | 2017-10-14 10:13 | RAD REPORT ---
EXAM DESCRIPTION: CT - Neck Soft Tissue W/Wo Contr - 10/14/2017 4:15 am CLINICAL HISTORY: pain Fever, recent neck surgery COMPARISON: C Spine Wo Con dated 09/01/2017; C Spine Wo Con dated 06/25/2017; Thorax Wo Con dated 10/14 FINDINGS: Since comparative study anterior cervical fusion has been performed at C5-6. Gas is noted within the soft tissues of the left anterior neck, likely postoperative in etiology. Moderate low-density fluid is seen in the retropharyngeal space measuring up to 17 mm in thickness. T his may represent postoperative fluid, liquified hematoma or developing abscess. Lack of IV contrast makes full assessment quite limited. The airway remains patent. Prominent bilateral cervical lymphadenopathy is present, favored to be alvina ctive. Significant opacification left maxillary antrum is seen likely related to chronic sinusitis. IMPRESSION: Postsurgical changes of a recent ACDF spanning C5-6. Moderate low-density fluid is seen in the retropharyngeal space which may be related to postsurgical fluid, liquefying hematoma or devel oping abscess. Contrast-enhanced CT imaging through this region may be of value for further assessmen t.
--- NOTE | 2017-10-14 10:16 | RAD REPORT ---
EXAM DESCRIPTION: CT - Thorax Wo Con CLINICAL HISTORY: Chest pain fever COMPARISON: Chest Abd Pelvis Wo Con dated 08/22/2016 FINDINGS: Airspace opacity is present in the posterior right upper lobe and superior segments of bot h lower lobes, greater on the right, most compatible with pneumonia. No pleural thickening or pleural effusion. No pneumothorax. No axillary, mediastinal or hilar adenopathy. Mild cardiomegaly seen. Superficial air is present in the soft tissues of the neck and suprasternal region with small gas elieser bles, likely related to recent surgical intervention in the neck. Dedicated CT neck report may be ref erenced for further information. Fatty liver noted. All CT scans are performed using dose optimization technique as appropriate and may include automated exposure control or mA/KV adjustment according to patient size. IMPRESSION: Bilateral pneumonia pattern as detailed.
== END 2017-10-14 06:43 | disposition home or self-care (01) ==
LOC: ER 21:45
DX: J18.9 Pneumonia, unspecified organism (principal); E11.22 Type 2 diabetes mellitus with diabetic chronic kidney disease; I12.9 Hypertensive chronic kidney disease with stage 1 through stage 4 chronic kidney disease, or unspecified chronic kidney disease; N18.9 Chronic kidney disease, unspecified; D63.1 Anemia in chronic kidney disease; E78.00 Pure hypercholesterolemia, unspecified; Z79.4 Long term (current) use of insulin; Z88.8 Allergy status to other drugs, medicaments and biological substances; Z87.891 Personal history of nicotine dependence
CPT/HCPCS: 36415; 70492; 71045; 71250; 80048; 80076; 80307; 81003; 81015; 81025; 82962; 83605; 83690; 83880; 84145; 85025; 85610; 85730; 86850; 86900; 86901; 87040; 87086; 87088; 93005; 94640; 96361; 96365; 99285; J7030

== ENCOUNTER 2017-11-06 23:15 | Emergency (ER) | payer BC ==
--- OUTSIDE RECORDS SUMMARY | 2017-11-06 23:17 | XMS REPORT | Clinical Summary ---
:1970 Author Organization [facility] Address [address] [place] [address] Care Team Providers Name Role Phone Unavailable Primary Care Provider Unavailable Allergies Active Allergy Reactions Severity Noted Date Comments [id number] 10/10/2017 Metformin 10/10/2017 Linagliptin 10/10/2017 Current Medications [...] Orders Only Cardiology Provider, MD Thelma after 11/05/2016 Social History Tobacco Use Types Packs/Day Years [...] are in SPECTRAL COLOR DOPPLER the results (92123) section. ECG 12-LEAD Routine 10/06/2017 12:00 AM CDT [id number] Routine 10/06/2017 12:00 AM CDT after 11/05/2016 Results Echocardiogram complete w contrast and 3D [...] Address City/State/Zipcode Phone Number [facility] [id number] [place] [address] Miscellaneous Lab Result (10/06/2017) Specimen Blood Narrative Performed At ECG 12 lead (10/06/2017) Narrative Performed At after 11/05/2016 Insurance Payer Benefit Plan / Group Subscriber ID Type Phone Address BCBS BCBS CHOICE PPO/FEDERAL EMPL PPO xxxxxxxxxxxx PPO Home: [address] [phone] [place], [place] [address]
--- NOTE | 2017-11-07 01:23 | ER ---
Nurse's Notes [facility] Name: Emily Barbour Age: 47 yrs Sex: Female : 1970 Arrival Date: 11/06/2017 Time: 23:18 Bed 6 Private MD: Diagnosis: Other sprain of right thumb;Contusion of left lower leg;Abrasion of lower back and pelvis Presentation: 11/06 23:31 Presenting complaint: Patient states: she fell last night injuring her left lower leg bb and jamming her right thumb also has small abrasion to right hip area, pt states pain to left lower leg is not getting any better. Transition of care: patient was not received from another setting of care. Onset of symptoms was November 05, 2017. Risk Assessment: Do you want to hurt yourself or someone else? Patient reports no desire to harm self or others. Initial Sepsis Screen: Does the patient meet any 2 criteria? No. Patient's initial sepsis screen is negative. Does the patient have a suspected source of infection? No. Patient's initial sepsis screen is negative. Care prior to arrival: None. 23:31 Method Of Arrival: Ambulatory bb 23:31 Acuity: SALENA 3 bb Triage Assessment: 23:55 General: Appears in no apparent distress. Behavior is calm, cooperative. ak1 23:56 Pain: Complains of pain in left leg. EENT: No signs and/or symptoms were reported ak1 regarding the EENT system. Neuro: No deficits noted. Cardiovascular: No deficits noted. Respiratory: No deficits noted. GI: No signs and/or symptoms were reported involving the gastrointestinal system. : No signs and/or symptoms were reported regarding the genitourinary system. Derm: No signs and/or symptoms reported regarding the dermatologic system. Musculoskeletal: Reports pain in left leg. IMPORT COORDINATION AND PRODUCTION HEAD: 23:40 LMP N/A - Hysterectomy bb Historical: - Allergies: 23:40 Benadryl; bb 23:40 metformin; bb 23:40 Tradjenta; bb - Home Meds: 23:40 amitriptyline 100 mg oral tab 1 tab nightly [Active]; Cymbalta 30 mg oral cpDR 1 cap bb every morning [Active]; fenofibrate 160 mg oral tab 1 tab once daily [Active]; pantoprazole 40 mg oral TbEC 1 tab once daily [Active]; furosemide 40 mg Oral tab 1 tab 2 times per day [Active]; Toujeo SoloStar 300 unit/mL (1.5 mL) subcutaneous inpn 40 unit every morning [Active]; Humalog 100 unit/mL subcutaneous soln 20 unit three times a day [Active]; Victoza 3-Raghu subcutaneous 1.8 unit nightly [Active]; Iron CR 325 Oral twice a day [Active]; magnesium oxide 500 mg Oral cap twice a day [Active]; B12 2500 mcg daily [Active]; D3 2000 I.U. BID [Active]; - PMHx: 23:40 Anemia; High Cholesterol; Hypertension; Renal Disease; Tendonitis in Elbows; Diabetes - bb IDDM; - PSHx: 23:40 breast reduction; spinal fusion; Hysterectomy; Cholecystectomy; Appendectomy; neck bb fusion; Addenoids; - Immunization history:: Adult Immunizations up to date. - Social history:: Smoking status: Patient/guardian denies using tobacco, Patient/guardian denies using alcohol, street drugs. - Ebola Screening: : No symptoms or risks identified at this time. Screenin:55 Abuse screen: Denies threats or abuse. Denies injuries from another. Nutritional ak1 screening: No deficits noted. Tuberculosis screening: No symptoms or risk factors identified. Fall Risk Fall in past 12 months (25 points). Assessment: 23:56 Reassessment: Patient appears in no apparent distress at this time. No changes from ak1 previously documented assessment. see triage assessment. 11/07 01:07 Reassessment: Patient appears in no apparent distress at this time. No changes from ak1 previously documented assessment. pt and family informed of wait for ERP to read x-rays. will continue to monitor. 01:27 Reassessment: PT D/C HOME VIA W/C WITH FAMILY, NO ACUTE FINDINGS, DX WITH ABRASIONS AND bp CONTUSION. Vital Signs: 11/06 23:40 BP 151 / 71; Pulse 114; Resp 18 S; Temp 99.5(O); Pulse Ox 99% on R/A; Weight 92.99 kg bb (R); Height 5 ft. 5 in. (165.10 cm) (R); Pain 8/10; 11/07 00:10 BP 142 / 72; Pulse 100; Resp 20; Pulse Ox 98% on R/A; ak1 11/06 23:40 Body Mass Index 34.11 (92.99 kg, 165.10 cm) ED Course: 11/06 23:18 Patient arrived in ED. do 23:26 Adonay Pulido, RN is Primary Nurse. bp 23:33 Triage completed. bb 23:40 Arm band placed on Patient placed in an exam room, on a stretcher, on pulse oximetry. bb Family accompanied patient. 23:47 Yordan Magana MD is Attending Physician. gs 23:55 Patient has correct armband on for positive identification. Bed in low position. Call ak1 light in reach. Side rails up X 1. Adult w/ patient. Pulse ox on. NIBP on. 11/07 00:39 X-ray completed. Portable x-ray completed in exam room. Patient tolerated procedure tm4 well. 00:41 Tib Fib Left XRAY In Process Unspecified. EDMS 00:41 Hand Right 3 View XRAY In Process Unspecified. EDMS 01:21 Danny Kate MD is Referral Physician. gs 01:26 No provider procedures requiring assistance completed. Patient did not have IV access bp during this emergency room visit. Administered Medications: No medications were administered Outcome: 01:22 Discharge ordered by . gs 01:28 Discharged to home via wheelchair, with family. bp 01:28 Condition: stable 01:28 Discharge instructions given to patient, Instructed on discharge instructions, follow up and referral plans. Demonstrated understanding of instructions, follow-up care. 01:29 Patient left the ED. bp Signatures: Dispatcher [employer] EDSD Ny Urias tm4 Erika Boland RN RN bb Corrine Zaidi RN RN ak Susana San do Yordan Magana MD MD Adonay Pulido, JOCY RN bp
--- NOTE | 2017-11-07 01:23 | EDPHYS ---
Physician Documentation [facility] Name: Emily Barbour Age: 47 yrs Sex: Female : 1970 Arrival Date: 11/06/2017 Time: 23:18 Bed 6 Private MD: ED Physician Yordan Magana HPI: 11/07 01:10 This 47 yrs old Female presents to ER via Ambulatory with complaints of Fall gs Injury. 01:10 Details of fall: The patient fell from an upright position. Onset: The symptoms/episode gs began/occurred yesterday. Associated injuries: The patient sustained left lamb, dorsal aspect of proximal phalanx of right thumb. Severity of symptoms: At their worst the symptoms were moderate, in the emergency department the symptoms are unchanged. The patient has not experienced similar symptoms in the past. The patient has been recently seen at the [facility] Emergency Department, a couple of weeks ago. 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/06 23:40 LMP N/A - Hysterectomy bb Historical: - Allergies: 23:40 Benadryl; bb 23:40 metformin; bb 23:40 Tradjenta; bb - Home Meds: 23:40 amitriptyline 100 mg oral tab 1 tab nightly [Active]; Cymbalta 30 mg oral cpDR 1 cap bb every morning [Active]; fenofibrate 160 mg oral tab 1 tab once daily [Active]; pantoprazole 40 mg oral TbEC 1 tab once daily [Active]; furosemide 40 mg Oral tab 1 tab 2 times per day [Active]; Toujeo SoloStar 300 unit/mL (1.5 mL) subcutaneous inpn 40 unit every morning [Active]; Humalog 100 unit/mL subcutaneous soln 20 unit three times a day [Active]; Victoza 3-Raghu subcutaneous 1.8 unit nightly [Active]; Iron CR 325 Oral twice a day [Active]; magnesium oxide 500 mg Oral cap twice a day [Active]; B12 2500 mcg daily [Active]; D3 2000 I.U. BID [Active]; - PMHx: 23:40 Anemia; High Cholesterol; Hypertension; Renal Disease; Tendonitis in Elbows; Diabetes - bb IDDM; - PSHx: 23:40 breast reduction; spinal fusion; Hysterectomy; Cholecystectomy; Appendectomy; neck bb fusion; Addenoids; - Immunization history:: Adult Immunizations up to date. - Social history:: Smoking status: Patient/guardian denies using tobacco, Patient/guardian denies using alcohol, street drugs. - Ebola Screening: : No symptoms or risks identified at this time. ROS: 11/07 01:10 All other systems are negative. gs Exam: 01:10 Head/Face: Normocephalic, atraumatic. Eyes: Pupils equal round and reactive to light, gs extra-ocular motions intact. Lids and lashes normal. Conjunctiva and sclera are non-icteric and not injected. Cornea within normal limits. Periorbital areas with no swelling, redness, or edema. ENT: Nares patent. No nasal discharge, no septal abnormalities noted. Tympanic membranes are normal and external auditory canals are clear. Oropharynx with no redness, swelling, or masses, exudates, or evidence of obstruction, uvula midline. Mucous membranes moist. Neck: Trachea midline, no thyromegaly or masses palpated, and no cervical lymphadenopathy. Supple, full range of motion without nuchal rigidity, or vertebral point tenderness. No Meningismus. Chest/axilla: Normal chest wall appearance and motion. Nontender with no deformity. No lesions are appreciated. Cardiovascular: Regular rate and rhythm with a normal S1 and S2. No gallops, murmurs, or rubs. Normal PMI, no JVD. No pulse deficits. Respiratory: Lungs have equal breath sounds bilaterally, clear to auscultation and percussion. No rales, rhonchi or wheezes noted. No increased work of breathing, no retractions or nasal flaring. Abdomen/GI: Soft, non-tender, with normal bowel sounds. No distension or tympany. No guarding or rebound. No evidence of tenderness throughout. Back: No spinal tenderness. No costovertebral tenderness. Full range of motion. Skin: Warm, dry with normal turgor. Normal color with no rashes, no lesions, and no evidence of cellulitis. Neuro: Awake and alert, GCS 15, oriented to person, place, time, and situation. Cranial nerves II-XII grossly intact. Motor strength 5/5 in all extremities. Sensory grossly intact. Cerebellar exam normal. Normal gait. 01:10 Constitutional: The patient appears alert, awake. 01:10 Musculoskeletal/extremity: Extremities: noted in the lateral aspect of right hand: swelling, tenderness, There is no evidence of deformity, noted in the left lamb: tenderness, no evidence of deformity, swelling, noted in the right lower back: abrasion, ROM: no acute changes, Circulation is intact in all extremities. Sensation intact. Vital Signs: 11/06 23:40 BP 151 / 71; Pulse 114; Resp 18 S; Temp 99.5(O); Pulse Ox 99% on R/A; Weight 92.99 kg bb (R); Height 5 ft. 5 in. (165.10 cm) (R); Pain 8/10; 11/07 00:10 BP 142 / 72; Pulse 100; Resp 20; Pulse Ox 98% on R/A; ak1 11/06 23:40 Body Mass Index 34.11 (92.99 kg, 165.10 cm) bb MDM: 11/06 23:54 Patient medically screened. 11/07 01:10 Differential diagnosis: abrasion, contusion, fracture. Data reviewed: vital signs, nurses notes. 11/06 23:55 Order name: Tib Fib Left XRAY 11/06 23:55 Order name: Hand Right 3 View XRAY Administered Medications: No medications were administered Disposition: 11/07/17 01:22 Discharged to Home. Impression: Other sprain of right thumb, Contusion of left lower leg, Abrasion of lower back and pelvis. - Condition is Stable. - Discharge Instructions: Contusion, Thumb Sprain. - Medication Reconciliation Form, Thank You Letter, Antibiotic Education, Prescription Opioid Use form. - Follow up: Danny Kate MD; When: 2 - 3 days; Reason: Re-evaluation by your physician. Signatures: Dispatcher [employer] EDMS Erika Boland RN RN Yordan Mann MD MD Adonay Pulido RN RN bp Corrections: (The following items were deleted from the chart) 01:29 01:22 11/07/2017 01:22 Discharged to Home. Impression: Other sprain of right thumb; bp Contusion of left lower leg; Abrasion of lower back and pelvis. Condition is Stable. Forms are Medication Reconciliation Form, Thank You Letter, Antibiotic Education, Prescription Opioid Use. Follow up: Danny Kate; When: 2 - 3 days; Reason: Re-evaluation by your physician. gs
[2017-11-07 01:33] VITALS: TEMP 99.5
[2017-11-07 01:34] VITALS: BP 142/72; O2SAT 98
--- NOTE | 2017-11-07 08:32 | RAD REPORT ---
EXAM DESCRIPTION: RAD - Tib Fib Left - 11/07/2017 12:41 am CLINICAL HISTORY: PAIN COMPARISON: Tibia Fibula Left dated 03/01/2015; Ankle Left 3 View dated 10/05/2017 FINDINGS: No acute fracture is seen. Large calcaneal spur noted posteriorly. Evidence of previous fr acture base of fifth metatarsal partially visualized.
--- NOTE | 2017-11-07 08:33 | RAD REPORT ---
EXAM DESCRIPTION: RAD - Hand Right 3 View - 11/07/2017 12:41 am CLINICAL HISTORY: PAIN History of fall, trauma. COMPARISON: No comparisons FINDINGS: No fracture, dislocation or aggressive marrow lesion.
== END 2017-11-07 01:29 | disposition home or self-care (01) ==
LOC: ER 23:15
DX: S63.601A Unspecified sprain of right thumb, initial encounter (principal); S80.12XA Contusion of left lower leg, initial encounter; S30.810A Abrasion of lower back and pelvis, initial encounter; I12.9 Hypertensive chronic kidney disease with stage 1 through stage 4 chronic kidney disease, or unspecified chronic kidney disease; E11.22 Type 2 diabetes mellitus with diabetic chronic kidney disease; N18.9 Chronic kidney disease, unspecified; W18.30XA Fall on same level, unspecified, initial encounter; Y93.9 Activity, unspecified; Y92.9 Unspecified place or not applicable; Y99.9 Unspecified external cause status; Z88.8 Allergy status to other drugs, medicaments and biological substances; Z79.4 Long term (current) use of insulin
CPT/HCPCS: 99283

== ENCOUNTER 2017-11-23 08:53 | Emergency (ER) | payer BC ==
--- OUTSIDE RECORDS SUMMARY | 2017-11-23 08:56 | XMS REPORT | Clinical Summary ---
:1970 Author Organization [facility] Address [address] [place] [address] Care Team Providers Name Role Phone Unavailable Primary Care Provider Unavailable Allergies Active Allergy Reactions Severity Noted Date Comments Frowtyckx-Ou-[id number] 10/10/2017 Metformin 10/10/2017 Linagliptin 10/10/2017 Current Medications [...] Orders Only Cardiology Provider, MD Thelma after 11/22/2016 Social History Tobacco Use Types Packs/Day Years [...] are in SPECTRAL COLOR DOPPLER the results (85472) section. ECG 12-LEAD Routine 10/06/2017 12:00 AM CDT [id number] Routine 10/06/2017 12:00 AM CDT after 11/22/2016 Results Echocardiogram complete w contrast and 3D [...] Address City/State/Zipcode Phone Number [facility] [address] [place] [address] Miscellaneous Lab Result (10/06/2017) Specimen Blood Narrative Performed At ECG 12 lead (10/06/2017) Narrative Performed At after 11/22/2016 Insurance Payer Benefit Plan / Group Subscriber ID Type Phone Address BCBS BCBS CHOICE PPO/FEDERAL EMPL PPO xxxxxxxxxxxx PPO Home: [address] [phone] [place] [phone]
[2017-11-23 09:37] LABS: Absolute Monocytes 0.3 K/uL (0.1-1.3); Absolute Neutrophil 4.8 K/uL (1.8-8.0); Basophils % 0.9 % (0-1.3); Eosinophils % 1.3 % (0-4.4); Hematocrit 25.7 % (36.0-45.0); MCH 29.2 pg (27.0-35.0); MCV 85.1 fL (80-100); MPV 8.3 fL (7.6-11.3); Monocytes % 5.3 % (3.3-12.3); RBC Red Blood Cell Count 3.02 M/uL (3.86-4.86)
--- NOTE | 2017-11-23 09:37 | EKG ---
Test Date: 2017-11-23 Test Time: 09:06:06 Hydraulic Chair Assembler: RACHAEL MEASUREMENT RESULTS: Intervals: Rate: 93 TN: 146 QRSD: 142 QT: 386 QTc: 479 [place]: P: 49 TN: 146 QRS: -81 T: 45 INTERPRETIVE STATEMENTS: Normal sinus rhythm Right bundle branch block Left axis Possible Lateral infarct, age undetermined Abnormal ECG Compared to ECG 10/13/2017 22:56:45 Possible Myocardial infarct finding now present Sinus tachycardia no longer present Electronically Signed On 11-23-17 09:37:14 CDT by Magdiel Keith
[2017-11-23 09:40] LABS: Protime INR 1.04
[2017-11-23 09:59] LABS: ALT/SGPT 19 U/L (12-78); AST/SGOT 19 U/L (15-37); Albumin 3.4 g/dL (3.4-5.0); Alkaline Phosphatase 71 U/L (45-117); BUN Blood Urea Nitrogen 55 mg/dL (7-18); Bicarbonate 27 mmol/L (21-32); Bilirubin Direct < 0.1 mg/dL (0-0.2); Bilirubin Total 0.2 mg/dL (0.2-1.0); CKMB Creatine Kinase MB 3.2 ng/mL (0.3-3.6); Creatine Phosphokinase 81 U/L (26-192); Glucose Level 166 mg/dL (74-106); Magnesium 2.5 mg/dL (1.8-2.4); NT PRO-BNP 190 pg/mL (<125); Potassium 4.5 mmol/L (3.5-5.1); Sodium Level 129 mmol/L (136-145)
--- NOTE | 2017-11-23 10:15 | RAD REPORT ---
EXAM DESCRIPTION: RAD - Chest Single View - 11/23/2017 9:52 am CLINICAL HISTORY: SOB Chest pain. COMPARISON: Chest Single View dated 10/13/2017; Chest Single View dated 08/30/2017; Chest Pa And Lat ( 2 Views) dated 07/24/2017; Chest Single View dated 07/19/2017 FINDINGS: Portable technique limits examination quality. The lungs are grossly clear. The heart is normal in size. No displaced fractures. IMPRESSION: No acute intrathoracic process suspected.
[2017-11-23] MEDS ORDERED: DIAZEPAM 2 MG TABLET ONE (11:41)
[2017-11-23] MEDS ORDERED: MORPHINE 4 MG/ML SYR ONE (12:42)
[2017-11-23] MEDS ORDERED: NA CHLORIDE 0.9% 250 ML ONE (12:42)
--- NOTE | 2017-11-23 13:49 | ER ---
Nurse's Notes [facility] Name: Emily Barbour Age: 47 yrs Sex: Female : 1970 Arrival Date: 11/23/2017 Time: 09:01 Bed 17 Private MD: Diagnosis: Radiculopathy, cervical region;Dehydration;Hyperventilation Presentation: 11/23 09:01 Presenting complaint: EMS states: She's been feeling weak for a couple of weeks now, jl7 today at work she got short of breath and nauseous. Transition of care: patient was not received from another setting of care. Onset of symptoms was November 23, 2017. Risk Assessment: Do you want to hurt yourself or someone else? Patient reports no desire to harm self or others. Initial Sepsis Screen: Does the patient meet any 2 criteria? RR > 20 per min. HR > 90 bpm. Does the patient have a suspected source of infection? No. Patient's initial sepsis screen is negative. Care prior to arrival: None. 09:01 Method Of Arrival: EMS: [facility] 7 09:01 Acuity: SALENA 3 jl7 Triage Assessment: 09:06 General: Appears in no apparent distress. uncomfortable, Behavior is calm, cooperative, jl7 appropriate for age. Pain: Denies pain. EENT: No signs and/or symptoms were reported regarding the EENT system. Neuro: Level of Consciousness is awake, alert, obeys commands, Oriented to person, place, time, situation. Cardiovascular: Heart tones S1 S2 present Respiratory: Reports shortness of breath at rest Airway is patent Respiratory effort is even, unlabored, Respiratory pattern is symmetrical, tachypnea Breath sounds are clear in right upper lobe and left upper lobe Onset: The symptoms/episode began/occurred this morning, the patient has mild shortness of breath. GI: No signs and/or symptoms were reported involving the gastrointestinal system. : No signs and/or symptoms were reported regarding the genitourinary system. Derm: Skin is pink, warm \\T\\ dry. Musculoskeletal: No signs and/or symptoms reported regarding the musculoskeletal system. 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 - Social history:: Smoking status: Patient/guardian denies using tobacco. - Ebola Screening: : No symptoms or risks identified at this time. Screenin:57 Abuse screen: Denies threats or abuse. Denies injuries from another. Nutritional jl7 screening: No deficits noted. Tuberculosis screening: No symptoms or risk factors identified. Fall Risk IV access (20 points). Total Ruano Fall Scale indicates No Risk (0-24 pts). Assessment: 09:10 General: See triage assessment. jl7 09:56 Reassessment: Pt requested for staff to call her , Kana [phone]. jlJamil called and will be on his way shortly. 11:00 Reassessment: Patient and/or family updated on plan of care and expected duration. Pain jl7 level reassessed. Patient is alert, oriented x 3, equal unlabored respirations, skin warm/dry/pink. 11:30 Reassessment: Pt c/o sudden severe sharp pain to bilateral shoulders when she tried to jl7 stand up. Provider notified, see MAR for orders. 11:50 Reassessment: Pt sitting in bed crying out, ice packs placed on shoulders to help with jl7 pain. 12:18 Reassessment: Pt sitting in bed, not crying, at bedside. Pt reports pain is a jl7 little better but it's still bad. 13:40 Reassessment: Pt sitting in bed, at bedside. Pt reports decreased pain at the jl7 neck and shoulders but it still hurts. Pt's states "But she ate so that's good. I tried to stop her but she wouldn't listen.". 14:00 Reassessment: Pt got lightheaded upon standing while ERP was in discussing POC with the jl7 pt. ERP ordered a 250 mL bolus and to continue to monitor at this time. 14:50 Reassessment: Patient states feeling better. Patient states symptoms have improved. jl7 Vital Signs: 09:06 BP 110 / 68; Pulse 103; Resp 24 S; Temp 98.7(O); Pulse Ox 98% on R/A; Weight 88 kg (R); jl7 Height 5 ft. 5 in. (165.10 cm) (R); Pain 0/10; 09:56 BP 128 / 75; Pulse 94; Resp 18 S; Pulse Ox 98% on R/A; jl7 11:17 BP 142 / 67; Pulse 90; Resp 17; Pulse Ox 98% on R/A; mh5 11:19 BP 126 / 76 Sitting; Pulse 88; Resp 11; Pulse Ox 98% on R/A; mh5 11:20 BP 102 / 63 Standing; Pulse 101; Resp 20; Pulse Ox 98% on R/A; mh5 11:22 BP 132 / 72 Supine; Pulse 88; Resp 31; Pulse Ox 98% on R/A; 5 12:21 BP 132 / 76; Pulse 96; Resp 16; Pulse Ox 99% ; jl7 13:44 BP 113 / 67; Pulse 94; Resp 18 S; Pulse Ox 97% on R/A; jl7 13:56 BP 98 / 54 Standing; Pulse 102; Pulse Ox 97% ; jl7 14:00 BP 119 / 61 Sitting; Pulse 93; Resp 16 S; Pulse Ox 97% on R/A; jl7 14:11 BP 109 / 58 Sitting; Pulse 90; Resp 16 S; Pulse Ox 98% on R/A; jl7 14:15 BP 109 / 56 Sitting; Pulse 92; Resp 16; Pulse Ox 97% ; jl7 14:18 BP 110 / 59 Supine; Pulse 90; Resp 18; Pulse Ox 100% on R/A; jl7 14:20 BP 104 / 59 Sitting; Pulse 96; Resp 16; Pulse Ox 97% ; 7 14:22 BP 98 / 55 Standing; Pulse 99; Resp 18; Pulse Ox 97% ; jl7 14:39 BP 117 / 63 Supine; Pulse 92; Resp 14; Pulse Ox 98% on R/A; jl7 14:41 BP 116 / 68 Sitting; Pulse 95; Resp 16; Pulse Ox 98% ; jl7 14:42 BP 114 / 65 Standing; Pulse 92; Resp 16; Pulse Ox 97% ; 7 09:06 Body Mass Index 32.28 (88.00 kg, 165.10 cm) [facility] ED Course: 09:00 Patient has correct armband on for positive identification. Placed in gown. Bed in low [facility] position. Call light in reach. Side rails up X 1. equipment monitor phototypesetting on. Pulse ox on. NIBP on. 09:00 Warm blanket given. jl7 09:01 Patient arrived in ED. jl7 09:01 Alvino Irizarry NP is PHCP. pm1 09:01 Destin Snyder MD is Attending Physician. pm1 09:04 Triage completed. jl7 09:06 Arm band placed on right wrist. jl7 09:20 Initial lab(s) drawn, by me, sent to lab. Inserted saline lock: 20 gauge in left jl7 forearm, using aseptic technique. Blood collected. 09:20 Maintain EMS IV. Dressing intact. Site clean \\T\\ dry. Gauge \\T\\ site: 20 right AC. jl 7 09:26 Alayna Rawls RN is Primary Nurse. jl7 09:29 EKG done, by nursery technician. reviewed by Alvino Irizarry NP. at1 09:51 X-ray completed. Portable x-ray completed in exam room. Patient tolerated procedure la2 well. 09:52 XRAY Chest (1 view) In Process Unspecified. EDMS 15:03 No provider procedures requiring assistance completed. IV discontinued, intact, jl7 bleeding controlled, No redness/swelling at site. Pressure dressing applied. Administered Medications: 11:41 Drug: Valium 2 mg Route: PO; jl7 12:19 Follow up: Response: No adverse reaction jl7 12:40 Drug: NS 0.9% 250 ml Route: IV; Rate: bolus; Site: left forearm; jl7 13:15 Follow up: IV Status: Completed infusion jl7 12:41 Drug: morphine 2 mg Route: IVP; Site: left forearm; jl7 13:05 Follow up: Response: No adverse reaction; Pain is decreased jl7 13:50 Drug: morphine 2 mg Route: IVP; Site: right forearm; jl7 14:20 Follow up: Response: No adverse reaction; Pain is decreased jl7 14:07 Drug: NS 0.9% 250 ml Route: IV; Rate: bolus; Site: left forearm; jl7 14:22 Follow up: IV Status: Completed infusion jl7 14:23 Drug: NS 0.9% 250 ml Route: IV; Rate: bolus; Site: left forearm; jl7 14:37 Follow up: IV Status: Completed infusion jl7 Outcome: 13:49 Discharge ordered by . pm1 15:03 Discharged to home ambulatory, with family. jl7 15:03 Condition: stable 15:03 Discharge instructions given to patient, family, Instructed on discharge instructions, follow up and referral plans. Demonstrated understanding of instructions, follow-up care. 15:04 Patient left the ED. jl7 Signatures: Dispatcher [employer] EDMS Jacquie hernandez, emt p EKG Tat1 Alvino Irizarry NP DENTIST ATTENDANT pm1 Torrie Arzola Jahala, RN RN jl7 Alexandria Hughes
--- NOTE | 2017-11-23 13:50 | EDPHYS ---
Physician Documentation [facility] Name: Emily Barbour Age: 47 yrs Sex: Female : 1970 Arrival Date: 11/23/2017 Time: 09:01 Bed 17 Private MD: ED Physician Destin Snyder HPI: 11/23 10:00 This 47 yrs old Female presents to ER via EMS with complaints of Shortness Of pm1 Breath. 17:10 The patient has shortness of breath with standing up from sitting position. Onset: The pm1 symptoms/episode began/occurred 1 week(s) ago. The patient's shortness of breath is aggravated by position changes, is alleviated by rest. Associated signs and symptoms: Pertinent negatives: chest pain, dizziness, fever, nausea, vomiting. Severity of symptoms: in the emergency department the symptoms have improved Pain is currently a 0 / 10. Patient with feeling generalized weakness for the past 1 week. Today at work patient was at a meeting and she got up from a sitting position and started feeling short of breath. Patient without any chest pain, shortness of breath, or dizziness. 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 - Social history:: Smoking status: Patient/guardian denies using tobacco. - Ebola Screening: : No symptoms or risks identified at this time. ROS: 10:00 Constitutional: Negative for fever, chills, and weight loss, Eyes: Negative for injury, pm1 pain, redness, and discharge, ENT: Negative for injury, pain, and discharge, Neck: Negative for injury, pain, and swelling, Cardiovascular: Negative for chest pain, palpitations, and edema. 10:00 Abdomen/GI: Negative for abdominal pain, nausea, vomiting, diarrhea, and constipation, Back: Negative for injury and pain, : Negative for injury, bleeding, discharge, and swelling, MS/Extremity: Negative for injury and deformity, Skin: Negative for injury, rash, and discoloration, Neuro: Negative for headache, weakness, numbness, tingling, and seizure. 10:00 Respiratory: Positive for shortness of breath, Negative for cough, sputum production, wheezing. Exam: 10:00 Constitutional: This is a well developed, well nourished patient who is awake, alert, pm1 and in no acute distress. Head/Face: Normocephalic, atraumatic. Eyes: Pupils equal round and reactive to light, extra-ocular motions intact. Lids and lashes normal. Conjunctiva and sclera are non-icteric and not injected. Cornea within normal limits. Periorbital areas with no swelling, redness, or edema. ENT: Nares patent. No nasal discharge, no septal abnormalities noted. Tympanic membranes are normal and external auditory canals are clear. Oropharynx with no redness, swelling, or masses, exudates, or evidence of obstruction, uvula midline. Mucous membranes moist. Neck: Trachea midline, no thyromegaly or masses palpated, and no cervical lymphadenopathy. Supple, full range of motion without nuchal rigidity, or vertebral point tenderness. No Meningismus. Chest/axilla: Normal chest wall appearance and motion. Nontender with no deformity. No lesions are appreciated. Cardiovascular: Regular rate and rhythm with a normal S1 and S2. No gallops, murmurs, or rubs. Normal PMI, no JVD. No pulse deficits. Respiratory: Lungs have equal breath sounds bilaterally, clear to auscultation and percussion. No rales, rhonchi or wheezes noted. No increased work of breathing, no retractions or nasal flaring. Abdomen/GI: Soft, non-tender, with normal bowel sounds. No distension or tympany. No guarding or rebound. No evidence of tenderness throughout. Back: No spinal tenderness. No costovertebral tenderness. Full range of motion. Skin: Warm, dry with normal turgor. Normal color with no rashes, no lesions, and no evidence of cellulitis. MS/ Extremity: Pulses equal, no cyanosis. Neurovascular intact. Full, normal range of motion. 10:00 Neuro: Orientation: is normal, Motor: is normal. Vital Signs: 09:06 BP 110 / 68; Pulse 103; Resp 24 S; Temp 98.7(O); Pulse Ox 98% on R/A; Weight 88 kg (R); jl7 Height 5 ft. 5 in. (165.10 cm) (R); Pain 0/10; 09:56 BP 128 / 75; Pulse 94; Resp 18 S; Pulse Ox 98% on R/A; jl7 11:17 BP 142 / 67; Pulse 90; Resp 17; Pulse Ox 98% on R/A; 5 11:19 BP 126 / 76 Sitting; Pulse 88; Resp 11; Pulse Ox 98% on R/A; mh5 11:20 BP 102 / 63 Standing; Pulse 101; Resp 20; Pulse Ox 98% on R/A; mh5 11:22 BP 132 / 72 Supine; Pulse 88; Resp 31; Pulse Ox 98% on R/A; 5 12:21 BP 132 / 76; Pulse 96; Resp 16; Pulse Ox 99% ; 7 13:44 BP 113 / 67; Pulse 94; Resp 18 S; Pulse Ox 97% on R/A; 7 13:56 BP 98 / 54 Standing; Pulse 102; Pulse Ox 97% ; 7 14:00 BP 119 / 61 Sitting; Pulse 93; Resp 16 S; Pulse Ox 97% on R/A; 7 14:11 BP 109 / 58 Sitting; Pulse 90; Resp 16 S; Pulse Ox 98% on R/A; 7 14:15 BP 109 / 56 Sitting; Pulse 92; Resp 16; Pulse Ox 97% ; [facility] 14:18 BP 110 / 59 Supine; Pulse 90; Resp 18; Pulse Ox 100% on R/A; [facility] 14:20 BP 104 / 59 Sitting; Pulse 96; Resp 16; Pulse Ox 97% ; [facility] 14:22 BP 98 / 55 Standing; Pulse 99; Resp 18; Pulse Ox 97% ; [facility] 14:39 BP 117 / 63 Supine; Pulse 92; Resp 14; Pulse Ox 98% on R/A; 7 14:41 BP 116 / 68 Sitting; Pulse 95; Resp 16; Pulse Ox 98% ; [facility] 14:42 BP 114 / 65 Standing; Pulse 92; Resp 16; Pulse Ox 97% ; 7 09:06 Body Mass Index 32.28 (88.00 kg, 165.10 cm) [facility] MDM: 09:01 Patient medically screened. pm1 11:30 ED course: Patient positive for orthostasis. Patient reported shortness of breath with pm1 standing up. Patient started hyperventilating. Will give Valium and IV fluids. 12:30 ED course: patient with complaints of right trapezius pain radiating down right arm. pm1 History fo cervical radiculopathy. Radiating pain to hand reproducible with palpation to trapezius. Will give patient pain medications. 13:48 Data reviewed: vital signs. pm1 13:48 Counseling: I had a detailed discussion with the patient and/or guardian regarding: the pm1 historical points, exam findings, and any diagnostic results supporting the discharge/admit diagnosis, lab results, radiology results, the need for outpatient follow up, to return to the emergency department if symptoms worsen or persist or if there are any questions or concerns that arise at home. 15:05 ED course: Patient given IV fluid bolus slowly until patient no longer orthostatic and pm1 without symptoms with standing up. Patient likely being over diuresed due to decreased PO intake and Lasix. Patient advised to hold Lasix this evening and to contact Dr. Cameron for further instruction of Lasix administration . 11/23 09:03 Order name: Basic Metabolic Panel; Complete Time: 10:14 pm1 11/23 09:03 Order name: CBC with Diff; Complete Time: 10:03 pm1 11/23 09:03 Order name: Ckmb; Complete Time: 10:14 pm1 11/23 09:03 Order name: CPK; Complete Time: 10:14 pm1 11/23 09:03 Order name: LFT's; Complete Time: 10:14 pm1 11/23 09:03 Order name: Magnesium; Complete Time: 10:14 pm1 11/23 09:03 Order name: NT PRO-BNP; Complete Time: 10:14 pm1 11/23 09:03 Order name: PT-INR; Complete Time: 10:03 pm1 11/23 09:03 Order name: Ptt, Activated; Complete Time: 10:03 pm1 11/23 09:03 Order name: Troponin (emerg Dept Use Only); Complete Time: 10:03 pm1 11/23 09:03 Order name: XRAY Chest (1 view); Complete Time: 10:16 pm1 08 09:03 Order name: EKG; Complete Time: 09:04 pm1 08 09:03 Order name: Cardiac monitoring; Complete Time: 09:28 pm1 11/23 09:03 Order name: EKG - Nurse/Tech; Complete Time: 09:28 pm1 11/23 09:03 Order name: IV Saline Lock; Complete Time: 09:28 pm1 11/23 09:03 Order name: Labs collected and sent; Complete Time: 09:28 pm1 11/23 09:03 Order name: O2 Per Protocol; Complete Time: 09:27 pm1 11/23 09:03 Order name: O2 Sat Monitoring; Complete Time: 09:27 pm1 11/23 10:27 Order name: Orthostatic Blood Pressure; Complete Time: 11:31 pm1 Administered Medications: 11:41 Drug: Valium 2 mg Route: PO; jl7 12:19 Follow up: Response: No adverse reaction jl7 12:40 Drug: NS 0.9% 250 ml Route: IV; Rate: bolus; Site: left forearm; jl7 13:15 Follow up: IV Status: Completed infusion jl7 12:41 Drug: morphine 2 mg Route: IVP; Site: left forearm; jl7 13:05 Follow up: Response: No adverse reaction; Pain is decreased jl7 13:50 Drug: morphine 2 mg Route: IVP; Site: right forearm; jl7 14:20 Follow up: Response: No adverse reaction; Pain is decreased jl7 14:07 Drug: NS 0.9% 250 ml Route: IV; Rate: bolus; Site: left forearm; jl7 14:22 Follow up: IV Status: Completed infusion jl7 14:23 Drug: NS 0.9% 250 ml Route: IV; Rate: bolus; Site: left forearm; jl7 14:37 Follow up: IV Status: Completed infusion jl7 Disposition: 16:35 Co-signature as Attending Physician, Destin Snyder MD. rn Disposition: 11/23/17 13:49 Discharged to Home. Impression: Radiculopathy, cervical region, Dehydration, Hyperventilation. - Condition is Stable. - Discharge Instructions: Cervical Radiculopathy, Dehydration, Adult, Hyperventilation. - Medication Reconciliation Form, Thank You Letter, Work release form form. - Follow up: Emergency Department; When: As needed; Reason: Worsening of condition. Follow up: Private Physician; When: 2 - 3 days; Reason: Recheck today's complaints, Continuance of care, Re-evaluation by your physician. - Problem is new. - Symptoms have improved. Signatures: Dispatcher [employer] EDMS Destin Snyder MD MD rn Marinas, Patrick, GRANULAR OPERATOR GRANULAR OPERATOR pm1 Alayna Rawls RN RN jl7 Corrections: (The following items were deleted from the chart) 14:04 13:49 11/23/2017 13:49 Discharged to Home. Impression: Radiculopathy, cervical region; pm1 Hyperventilation. Condition is Stable. Forms are Medication Reconciliation Form, Thank You Letter, Antibiotic Education, Prescription Opioid Use. Follow up: Emergency Department; When: As needed; Reason: Worsening of condition. Follow up: Private Physician; When: 2 - 3 days; Reason: Recheck today's complaints, Continuance of care, Re-evaluation by your physician. Problem is new. Symptoms have improved. pm1 14:05 14:04 11/23/2017 13:49 Discharged to Home. Impression: Radiculopathy, cervical region; pm1 Dehydration. Condition is Stable. Discharge Instructions: Cervical Radiculopathy, Hyperventilation. Forms are Medication Reconciliation Form, Thank You Letter, Antibiotic Education, Prescription Opioid Use, Work release form. Follow up: Emergency Department; When: As needed; Reason: Worsening of condition. Follow up: Private Physician; When: 2 - 3 days; Reason: Recheck today's complaints, Continuance of care, Re-evaluation by your physician. Problem is new. Symptoms have improved. pm1 15:04 14:05 11/23/2017 13:49 Discharged to Home. Impression: Radiculopathy, cervical region; jl7 Dehydration; Hyperventilation. Condition is Stable. Discharge Instructions: Cervical Radiculopathy, Hyperventilation. Forms are Medication Reconciliation Form, Thank You Letter, Antibiotic Education, Prescription Opioid Use, Work release form. Follow up: Emergency Department; When: As needed; Reason: Worsening of condition. Follow up: Private Physician; When: 2 - 3 days; Reason: Recheck today's complaints, Continuance of care, Re-evaluation by your physician. Problem is new. Symptoms have improved. pm1
[2017-11-23 15:09] VITALS: TEMP 98.7
[2017-11-23 15:27] VITALS: BP 114/65; O2SAT 97
== END 2017-11-23 15:04 | disposition home or self-care (01) ==
LOC: ER 08:53
DX: R06.4 Hyperventilation (principal); E86.0 Dehydration; M54.12 Radiculopathy, cervical region; I10 Essential (primary) hypertension; Z88.8 Allergy status to other drugs, medicaments and biological substances
CPT/HCPCS: 36415; 71045; 80048; 80076; 82550; 82553; 83735; 83880; 84484; 85025; 85610; 85730; 93005; 99285

== ENCOUNTER 2018-04-02 05:15 | Emergency (ER) | payer BC ==
--- OUTSIDE RECORDS SUMMARY | 2018-04-02 05:17 | XMS REPORT | Clinical Summary ---
:1970 Author Organization [facility] Address [address] [place] [address] Care Team Providers Name Role Phone Unavailable Primary Care Provider Unavailable Allergies Active Allergy Reactions Severity Noted Date Comments Onihrpfgi-Ri-Orhjjraupyvrf 10/10/2017 Metformin 10/10/2017 Linagliptin 10/10/2017 Medications Medication Sig Dispensed Refills Start Date End Date Status furosemide (LASIX) 40 mg Take 40 mg by 0 Active tablet mouth 2 (two) times a day. DULoxetine (CYMBALTA) 30 Take 30 mg by 0 Active MG capsule mouth daily. insulin lispro (HumaLOG) Inject 20 Units 0 Active 100 unit/mL injection under the skin 3 (three) times a day before meals. pantoprazole (PROTONIX) Take 40 mg by 0 Active 40 MG EC tablet mouth daily. insulin Inject 40 Units 0 Active glargine,hum.rec.anlog under the skin (TOUJEO SOLOSTAR U-300 daily. INSULIN SUBQ) fenofibrate (LOFIBRA) Take 160 mg by 0 Active 160 MG tablet mouth daily. amitriptyline (ELAVIL) Take 100 mg by 0 Active 100 MG tablet mouth nightly. liraglutide (VICTOZA Inject 1.8 mg 0 Active 2-GILBERTO) 0.6 mg/0.1 mL (18 under the skin mg/3 mL) pen injector daily. ferrous sulfate 325 (65 Take 325 mg by 0 Active FE) MG tablet mouth 2 (two) times a day. cyanocobalamin (VITAMIN Take 250 mcg by 0 Active B-12) 250 MCG tablet mouth daily. magnesium gluconate Take 500 mg by 0 Active (MAGONATE) 500 mg tablet mouth 2 (two) tablet times a day. cholecalciferol, vitamin Take 2,000 Units 0 Active D3, (VITAMIN D3) 2,000 by mouth daily. unit capsule capsule Active Problems Not on file Encounters Date Type Specialty Care Team Description 10/10/2017 Office Visit Cardiology Edwin Robbins MD Pre-operative cardiovascular examination (Primary Dx); Chronic diastolic heart failure; Abnormal electrocardiogram; Diabetes mellitus without complication 10/10/2017 Orders Only Cardiology ProviderThelma MD after 04/01/2017 Social History Tobacco Use Types Packs/Day Years Used Date Former Smoker Smokeless Tobacco: Never Used Alcohol Use Drinks/Week oz/Week Comments No Sex Assigned at Date Recorded Not on file Job Start Date Occupation Industry Not on file Not on file Not on file Travel History Travel Start Travel End No recent travel history available. Last Filed Vital Signs Vital Sign Reading [...] Maintenance Due Date Last Done Comments DIABETIC RETINAL EYE EXAM 1970 DIABETIC FOOT EXAM 1980 URINE MICROALBUMIN 1980 CERVICAL CANCER SCREENING 10/14/1991 INFLUENZA VACCINE 11/16/2017 Procedures Procedure Name Priority Date/Time Associated Comments Diagnosis ECHOCARDIOGRAM 2D Routine 10/10/2017 1:00 Chronic diastolic Results for this COMPLETE W MMODE PM CDT heart failure procedure are in [facility] [place] the results ([address]40) section. ECG 12-LEAD Routine 10/06/2017 [id number] Routine 10/06/2017 after 04/01/2017 Results Echocardiogram complete w contrast and 3D if needed (10/10/2017 1:00 PM CDT) LA diam s 4.00 cm [facility] [...] Address City/State/Zipcode Phone Number [facility] [id number] [place] [address] Miscellaneous Lab Result (10/06/2017) Specimen Blood Narrative Performed At ECG 12 lead (10/06/2017) Narrative Performed At after 04/01/2017 Insurance Payer Benefit Plan / Group Subscriber ID Type Phone Address BCBS BCBS CHOICE PPO/FEDERAL EMPL PPO xxxxxxxxxxxx PPO Advance Directives Patient has advance care planning documents on file. For more information, please contact:Matthew Uman[address] [place] [address]
--- NOTE | 2018-04-02 05:36 | ER ---
Nurse's Notes [facility] Name: Emily Barbour Age: 47 yrs Sex: Female : 1970 Arrival Date: 04/02/2018 Time: 05:19 Bed 5 Private MD: Jean-Paul Cameron Diagnosis: Cellulitis and acute lymphangitis of face Presentation: 04/02 05:20 Presenting complaint: Patient states: I have had Pain in my nose and swelling in my jb4 face for the past 3 days and it has only gotten worse. Transition of care: patient was not received from another setting of care. Onset of symptoms was March 30, 2018. 05:20 Risk Assessment: Do you want to hurt yourself or someone else? Patient reports no jb4 desire to harm self or others. Initial Sepsis Screen: Does the patient meet any 2 criteria? HR > 90 bpm. Does the patient have a suspected source of infection? No. Patient's initial sepsis screen is negative. Care prior to arrival: None. 05:20 Acuity: SALENA 4 jb4 05:30 Method Of Arrival: Ambulatory jb4 Triage Assessment: 05:20 General: Appears in no apparent distress. uncomfortable, Behavior is calm, cooperative, jb4 appropriate for age. Pain: Complains of pain in right cheek, nose and left cheek Pain does not radiate. Pain currently is 8 out of 10 on a pain scale. Respiratory: Airway is patent Respiratory effort is even, unlabored, Respiratory pattern is regular, symmetrical, Breath sounds are clear bilaterally. 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 BID [Active]; fenofibrate 160 mg Oral tab 1 tab once daily [Active]; furosemide 40 mg Oral tab 1 tab 2 times per day [Active]; Humalog 100 unit/mL Sub-Q soln 20 unit three times a day [Active]; Iron CR 325 Oral twice a day [Active]; magnesium oxide 500 mg Oral cap twice a day [Active]; pantoprazole 40 mg Oral TbEC 1 tab once daily [Active]; Toujeo SoloStar 300 unit/mL (1.5 mL) subcutaneous inpn 40 unit every morning [Active]; Victoza 3-Raghu subcutaneous 1.8 unit nightly [Active]; - PMHx: 05:20 Tendonitis in Elbows; Anemia; Diabetes - IDDM; High Cholesterol; Hypertension; Renal jb4 Disease; - PSHx: 05:20 Appendectomy; Hysterectomy; jb4 - Immunization history:: Adult Immunizations up to date. - Social history:: Patient/guardian denies using alcohol, street drugs, The patient lives with family, Smoking status: Patient/guardian denies using tobacco, Patient/guardian denies using alcohol. - Family history:: not pertinent. - Ebola Screening: : No symptoms or risks identified at this time. Screenin:30 Abuse screen: Denies threats or abuse. Nutritional screening: No deficits noted. bb Tuberculosis screening: No symptoms or risk factors identified. Fall Risk None identified. Assessment: 05:30 General: Appears in no apparent distress. uncomfortable, Behavior is calm, cooperative. bb Pain: Complains of pain in nose and face. Neuro: Level of Consciousness is awake, alert, obeys commands, Oriented to person, place, time, situation. Cardiovascular: No deficits noted. Respiratory: Respiratory effort is even, unlabored. GI: No deficits noted. No signs and/or symptoms were reported involving the gastrointestinal system. EENT: erythema to nose. Derm: Wound noted nose. Musculoskeletal: Circulation, motion, and sensation intact. 05:44 Reassessment: pt verbalized understanding of and agrees to plan of care discharge bb instructions given pt ambulated with steady gait to exit. Vital Signs: 05:20 BP 144 / 83; Pulse 105; Resp 16; Temp 99.5(O); Pulse Ox 100% on R/A; Weight 92.99 kg jb4 (R); Height 5 ft. 5 in. (165.10 cm) (R); Pain 8/10; 05:20 Body Mass Index 34.11 (92.99 kg, 165.10 cm) jb4 ED Course: 05:19 Patient arrived in ED. es 05:20 Aglieco, Jean-Paul, DO is Private Physician. es 05:20 Arm band placed on left wrist. jb4 05:30 Patient has correct armband on for positive identification. Bed in low position. Call bb light in reach. Side rails up X 1. Pulse ox on. NIBP on. 05:31 Triage completed. jb4 05:33 Sachi Tyson MD is Attending Physician. ma2 05:45 No provider procedures requiring assistance completed. Patient did not have IV access bb during this emergency room visit. Administered Medications: 05:44 Drug: traMADol 50 mg Route: PO; bb 05:49 Follow up: Response: No adverse reaction bb Outcome: 05:36 Discharge ordered by . ma2 05:45 Discharged to home ambulatory. bb 05:45 Condition: stable 05:45 Discharge instructions given to patient, Instructed on discharge instructions, follow up and referral plans. no driving heavy equipment, medication usage, Demonstrated understanding of instructions, follow-up care, medications, Prescriptions given X 2. 05:50 Patient left the ED. bb Signatures: Nichole Andres Brenda RN RN bb Romero Ponce RN RN jb4 Sachi Tyson MD MD [facility]
--- NOTE | 2018-04-02 05:36 | EDPHYS ---
Physician Documentation [facility] Name: Emily Barbour Age: 47 yrs Sex: Female : 1970 Arrival Date: 04/02/2018 Time: 05:19 Bed 5 Private MD: Jean-Paul Cameron ED Physician Sachi Tyson HPI: 04/02 05:33 This 47 yrs old Female presents to ER via Ambulatory with complaints of Nose ma2 Problem, Facial Swelling. 05:33 The patient presents with pain erythema . Onset: The symptoms/episode began/occurred ma2 gradually, 2 day(s) ago. Associated signs and symptoms: Pertinent negatives: blurred vision, chest pain, cough, fever, lightheadedness, nausea, shortness of breath, sore throat. Severity of symptoms: At their worst the symptoms were mild in the emergency department the symptoms are unchanged. The patient has not experienced similar symptoms in the past. 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 BID [Active]; fenofibrate 160 mg Oral tab 1 tab once daily [Active]; furosemide 40 mg Oral tab 1 tab 2 times per day [Active]; Humalog 100 unit/mL Sub-Q soln 20 unit three times a day [Active]; Iron CR 325 Oral twice a day [Active]; magnesium oxide 500 mg Oral cap twice a day [Active]; pantoprazole 40 mg Oral TbEC 1 tab once daily [Active]; Toujeo SoloStar 300 unit/mL (1.5 mL) subcutaneous inpn 40 unit every morning [Active]; Victoza 3-Raghu subcutaneous 1.8 unit nightly [Active]; - PMHx: 05:20 Tendonitis in Elbows; Anemia; Diabetes - IDDM; High Cholesterol; Hypertension; Renal jb4 Disease; - PSHx: 05:20 Appendectomy; Hysterectomy; jb4 - Immunization history:: Adult Immunizations up to date. - Social history:: Patient/guardian denies using alcohol, street drugs, The patient lives with family, Smoking status: Patient/guardian denies using tobacco, Patient/guardian denies using alcohol. - Family history:: not pertinent. - Ebola Screening: : No symptoms or risks identified at this time. ROS: 05:33 Constitutional: Negative for fever, chills, and weight loss. ma2 05:33 ENT: Positive for nasal discharge, Negative for drainage from ear(s), tinnitus, rhinorrhea. 05:33 All other systems are negative. Exam: 05:33 Constitutional: This is a well developed, well nourished patient who is awake, alert, ma2 and in no acute distress. Eyes: Pupils equal round and reactive to light, extra-ocular motions intact. Lids and lashes normal. Conjunctiva and sclera are non-icteric and not injected. Cornea within normal limits. Periorbital areas with no swelling, redness, or edema. ENT: Nares patent. No nasal discharge, no septal abnormalities noted. Tympanic membranes are normal and external auditory canals are clear. Oropharynx with no redness, swelling, or masses, exudates, or evidence of obstruction, uvula midline. Mucous membranes moist. Neck: Trachea midline, no thyromegaly or masses palpated, and no cervical lymphadenopathy. Supple, full range of motion without nuchal rigidity, or vertebral point tenderness. No Meningismus. Chest/axilla: Normal chest wall appearance and motion. Nontender with no deformity. No lesions are appreciated. Cardiovascular: Regular rate and rhythm with a normal S1 and S2. No gallops, murmurs, or rubs. Normal PMI, no JVD. No pulse deficits. Respiratory: Lungs have equal breath sounds bilaterally, clear to auscultation and percussion. No rales, rhonchi or wheezes noted. No increased work of breathing, no retractions or nasal flaring. Abdomen/GI: Soft, non-tender, with normal bowel sounds. No distension or tympany. No guarding or rebound. No evidence of tenderness throughout. 05:33 Head/face: Noted is no obvious of injury or deformity except tenderness, area of erythema and tenderness over nose induration . Vital Signs: 05:20 BP 144 / 83; Pulse 105; Resp 16; Temp 99.5(O); Pulse Ox 100% on R/A; Weight 92.99 kg jb4 (R); Height 5 ft. 5 in. (165.10 cm) (R); Pain 8/10; 05:20 Body Mass Index 34.11 (92.99 kg, 165.10 cm) jb4 MDM: 05:33 Differential diagnosis: trauma, sinusitis, nasal cellulitis. Data reviewed: vital ma2 signs, nurses notes. Counseling: I had a detailed discussion with the patient and/or guardian regarding: the historical points, exam findings, and any diagnostic results supporting the discharge/admit diagnosis, the presence of at least one elevated blood pressure reading (>120/80) during this emergency department visit, the need for outpatient follow up. 05:36 Patient medically screened. ma2 Administered Medications: 05:44 Drug: traMADol 50 mg Route: PO; bb 05:49 Follow up: Response: No adverse reaction bb Disposition: 04/02/18 05:36 Discharged to Home. Impression: Cellulitis and acute lymphangitis of face. - Condition is Stable. - Discharge Instructions: Cellulitis, Adult. - Prescriptions for Clindamycin HCl 300 mg Oral Capsule - take 1 capsule by ORAL route every 6 hours for 10 days; 40 capsule. Tylenol- Codeine #3 300-30 mg Oral Tablet - take 2 tablet by ORAL route every 6 hours As needed; 30 tablet. - Work release form, Medication Reconciliation Form, Thank You Letter, Antibiotic Education, Prescription Opioid Use form. - Follow up: Private Physician; When: Tomorrow; Reason: Continuance of care. Signatures: Erika Boland RN RN bb Bryson, James, RN RN 4 Sachi Tyson MD MD ma2 Corrections: (The following items were deleted from the chart) 05:50 05:36 04/02/2018 05:36 Discharged to Home. Impression: Cellulitis and acute bb lymphangitis of face. Condition is Stable. Forms are Medication Reconciliation Form, Thank You Letter, Antibiotic Education, Prescription Opioid Use. Follow up: Private Physician; When: Tomorrow; Reason: Continuance of care. ma2
[2018-04-02] MEDS ORDERED: TRAMADOL HCL 50 MG TAB ONE (05:56)
[2018-04-02 06:02] VITALS: BP 144/83; TEMP 99.5; O2SAT 100
== END 2018-04-02 05:50 | disposition home or self-care (01) ==
LOC: ER 05:15
DX: L03.211 Cellulitis of face (principal); L03.212 Acute lymphangitis of face; I10 Essential (primary) hypertension; E11.9 Type 2 diabetes mellitus without complications; E78.00 Pure hypercholesterolemia, unspecified; Z79.4 Long term (current) use of insulin; Z88.8 Allergy status to other drugs, medicaments and biological substances
CPT/HCPCS: 99283

== ENCOUNTER 2018-04-03 09:28 | Emergency (ER) | payer BC ==
--- OUTSIDE RECORDS SUMMARY | 2018-04-03 09:30 | XMS REPORT | Clinical Summary ---
:1970 Author Organization [employer] Address [address] [place] [address] Care Team Providers Name Role Phone Unavailable Primary Care Provider Unavailable Allergies Active Allergy Reactions Severity Noted Date Comments Fsnfqqeac-Qy-Wcgqwnftucztd 10/10/2017 Metformin 10/10/2017 Linagliptin 10/10/2017 Medications Medication [...] 10/10/2017 Orders Only Cardiology ProviderThelma MD after 04/02/2017 Social History Tobacco Use Types Packs/Day Years [...] are in SPECTRAL COLOR DOPPLER the results (40696) section. ECG 12-LEAD Routine 10/06/2017 [id number] Routine 10/06/2017 after 04/02/2017 Results Echocardiogram complete w contrast and 3D [...] Address City/State/Zipcode Phone Number [facility] [address] [place] [address] Miscellaneous Lab Result (10/06/2017) Specimen Blood Narrative Performed At ECG 12 lead (10/06/2017) Narrative Performed At after 04/02/2017 Insurance Payer Benefit Plan / Group Subscriber ID Type Phone Address BCBS BCBS CHOICE PPO/FEDERAL EMPL PPO xxxxxxxxxxxx PPO Advance Directives Patient has advance care planning documents on file. For more information, please contact:Matthew [address] [place] [address]
--- NOTE | 2018-04-03 09:55 | ER ---
Nurse's Notes [facility] Name: Emily Barbour Age: 47 yrs Sex: Female : 1970 Arrival Date: 04/03/2018 Time: 09:30 Bed 17 Private MD: Jean-Paul Cameron Diagnosis: Cellulitis of face Presentation: 04/03 09:42 Presenting complaint: Patient states: Seen in ER yesterday and diagnosed with ss cellulitis of nose. Pt reports she is here only to get her work note extended. Transition of care: patient was not received from another setting of care. Onset of symptoms was March 2018. Risk Assessment: Do you want to hurt yourself or someone else? Patient reports no desire to harm self or others. Initial Sepsis Screen: Does the patient meet any 2 criteria? HR > 90 bpm. Does the patient have a suspected source of infection? Yes: Skin breakdown/wound. Care prior to arrival: None. 09:42 Method Of Arrival: Ambulatory ss 09:42 Acuity: SALENA 5 ss Triage Assessment: 09:42 General: Appears in no apparent distress. uncomfortable, Behavior is calm, cooperative, hj appropriate for age. Pain: Complains of pain in nose. 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 - Social history:: Smoking status: Patient/guardian denies using tobacco. - Ebola Screening: : Patient denies exposure to infectious person Patient denies travel to an Ebola-affected area in the 21 days before illness onset. Screenin:42 Abuse screen: Denies threats or abuse. Denies injuries from another. Nutritional hj screening: No deficits noted. Tuberculosis screening: No symptoms or risk factors identified. Fall Risk None identified. Assessment: 09:42 General: Appears in no apparent distress. uncomfortable, Behavior is calm, cooperative, hj appropriate for age. Pain: Complains of pain in nose. Neuro: Level of Consciousness is awake, alert, obeys commands, Oriented to person, place, time, situation, Appropriate for age. Cardiovascular: Capillary refill < 3 seconds Patient's skin is warm and dry. Respiratory: Airway is patent Respiratory effort is even, unlabored, Respiratory pattern is regular, symmetrical. GI: No signs and/or symptoms were reported involving the gastrointestinal system. : No signs and/or symptoms were reported regarding the genitourinary system. EENT: No signs and/or symptoms were reported regarding the EENT system. Derm: Abscess Reports pain. Musculoskeletal: No signs and/or symptoms reported regarding the musculoskeletal system. 10:05 Reassessment: Patient and/or family updated on plan of care and expected duration. Pain hj level reassessed. Patient is alert, oriented x 3, equal unlabored respirations, skin warm/dry/pink. for D/C;. Vital Signs: 09:43 BP 140 / 70; Pulse 109; Resp 17; Temp 98.0(TE); Pulse Ox 100% on R/A; Weight 92.99 kg; ss Height 5 ft. 5 in. (165.10 cm); Pain 8/10; 09:43 Body Mass Index 34.11 (92.99 kg, 165.10 cm) ED Course: 09:30 Patient arrived in ED. mr 09:31 Jean-Paul Cameron DO is Private Physician. mr 09:37 Eric Lambert, JOCY is Primary Nurse. hj 09:42 Patient has correct armband on for positive identification. Placed in gown. Bed in low hj position. Call light in reach. Side rails up X 1. 09:43 Triage completed. ss 09:43 Arm band placed on right wrist. ss 09:44 Alvino Irizarry NP is PHCP. pm1 09:44 Darrick Rey MD is Attending Physician. pm1 10:05 No provider procedures requiring assistance completed. Patient did not have IV access hj during this emergency room visit. Administered Medications: 09:54 Drug: [place] 10 mg-325 mg 1 tabs Route: PO; hj 09:57 Follow up: Response: No adverse reaction; Pain is decreased hj Outcome: 09:54 Discharge ordered by . pm1 10:05 Discharged to home ambulatory, with family. hj 10:05 Condition: stable 10:05 Discharge instructions given to patient, family, Instructed on discharge instructions, follow up and referral plans. Demonstrated understanding of instructions, follow-up care. 10:08 Patient left the ED. samuel Signatures: Amanda Pagan Shelby RN RN ss Eric Lambert RN RN hj Alvino Irizarry, PIPED BUTTONHOLE MACHINE OPERATOR PIPED BUTTONHOLE MACHINE OPERATOR pm1
--- NOTE | 2018-04-03 09:55 | EDPHYS ---
Physician Documentation [facility] Name: Emily Barbour Age: 47 yrs Sex: Female : 1970 Arrival Date: 04/03/2018 Time: 09:30 Bed 17 Private MD: Jean-Paul Cameron ED Physician Darrick Rey HPI: 04/03 09:53 This 47 yrs old Female presents to ER via Ambulatory with complaints of Needs pm1 work release. 09:53 Onset: The symptoms/episode began/occurred today. Patient was seen here in the ER pm1 yesterday for cellulitis to face and prescribed clindamycin. Patient has started taking it. She came to the ER today for a work release for to return to work on Tuesday if possible.. 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 - Social history:: Smoking status: Patient/guardian denies using tobacco. - Ebola Screening: : Patient denies exposure to infectious person Patient denies travel to an Ebola-affected area in the 21 days before illness onset. ROS: 09:53 Constitutional: Negative for fever, chills, and weight loss, Eyes: Negative for injury, pm1 pain, redness, and discharge, ENT: Negative for injury, pain, and discharge, Neck: Negative for injury, pain, and swelling, Cardiovascular: Negative for chest pain, palpitations, and edema, Respiratory: Negative for shortness of breath, cough, wheezing, and pleuritic chest pain, Abdomen/GI: Negative for abdominal pain, nausea, vomiting, diarrhea, and constipation, Back: Negative for injury and pain, : Negative for injury, bleeding, discharge, and swelling, MS/Extremity: Negative for injury and deformity. 09:53 Neuro: Negative for headache, weakness, numbness, tingling, and seizure. 09:53 Skin: Positive for cellulitis, of the nose. Exam: 09:53 Constitutional: This is a well developed, well nourished patient who is awake, alert, pm1 and in no acute distress. Head/Face: Normocephalic, atraumatic. Eyes: Pupils equal round and reactive to light, extra-ocular motions intact. Lids and lashes normal. Conjunctiva and sclera are non-icteric and not injected. Cornea within normal limits. Periorbital areas with no swelling, redness, or edema. 09:53 Neck: Trachea midline, no thyromegaly or masses palpated, and no cervical lymphadenopathy. Supple, full range of motion without nuchal rigidity, or vertebral point tenderness. No Meningismus. Chest/axilla: Normal chest wall appearance and motion. Nontender with no deformity. No lesions are appreciated. Cardiovascular: Regular rate and rhythm with a normal S1 and S2. No gallops, murmurs, or rubs. Normal PMI, no JVD. No pulse deficits. Respiratory: Lungs have equal breath sounds bilaterally, clear to auscultation and percussion. No rales, rhonchi or wheezes noted. No increased work of breathing, no retractions or nasal flaring. Abdomen/GI: Soft, non-tender, with normal bowel sounds. No distension or tympany. No guarding or rebound. No evidence of tenderness throughout. Back: No spinal tenderness. No costovertebral tenderness. Full range of motion. Skin: Warm, dry with normal turgor. Normal color with no rashes, no lesions, and no evidence of cellulitis. MS/ Extremity: Pulses equal, no cyanosis. Neurovascular intact. Full, normal range of motion. 09:53 ENT: External ear(s): are unremarkable, Ear canal(s): are normal, TM's: are normal, Nose: External nose: swelling is noted, cellulitis. 09:53 Neuro: Orientation: is normal, Motor: is normal. Vital Signs: 09:43 BP 140 / 70; Pulse 109; Resp 17; Temp 98.0(TE); Pulse Ox 100% on R/A; Weight 92.99 kg; ss Height 5 ft. 5 in. (165.10 cm); Pain 8/10; 09:43 Body Mass Index 34.11 (92.99 kg, 165.10 cm) ss MDM: 09:45 Patient medically screened. pm1 09:52 Data reviewed: vital signs. Data interpreted: Pulse oximetry: on room air is 100 %. pm1 Interpretation: normal. 09:53 Counseling: I had a detailed discussion with the patient and/or guardian regarding: the pm1 historical points, exam findings, and any diagnostic results supporting the discharge/admit diagnosis, the need for outpatient follow up, to return to the emergency department if symptoms worsen or persist or if there are any questions or concerns that arise at home. Administered Medications: 09:54 Drug: [place] 10 mg-325 mg 1 tabs Route: PO; hj 09:57 Follow up: Response: No adverse reaction; Pain is decreased hj Disposition: 04/04 06:29 Co-signature as Attending Physician, Darrick Rey MD I agree with the assessment and elaina plan of care. Disposition: 04/03/18 09:54 Discharged to Home. Impression: Cellulitis of face. - Condition is Stable. - Discharge Instructions: Cellulitis, Adult. - Work release form, Medication Reconciliation Form, Thank You Letter, Antibiotic Education, Prescription Opioid Use form. - Follow up: Emergency Department; When: As needed; Reason: Worsening of condition. Follow up: Private Physician; When: 2 - 3 days; Reason: Recheck today's complaints, Continuance of care, Re-evaluation by your physician. - Problem is new. - Symptoms have improved. Signatures: Darrick Rey MD MD cha Smirch, Shelby, RN RN Eric Lambert RN RN hj Marinas, Patrick, YAYA SOURCING ASSOCIATE pm1 Corrections: (The following items were deleted from the chart) 04/03 10:08 09:54 04/03/2018 09:54 Discharged to Home. Impression: Cellulitis of face. Condition is hj Stable. Forms are Medication Reconciliation Form, Thank You Letter, Antibiotic Education, Prescription Opioid Use. Follow up: Emergency Department; When: As needed; Reason: Worsening of condition. Follow up: Private Physician; When: 2 - 3 days; Reason: Recheck today's complaints, Continuance of care, Re-evaluation by your physician. Problem is new. Symptoms have improved. pm1
[2018-04-03 10:25] VITALS: BP 140/70; TEMP 98; O2SAT 100
== END 2018-04-03 10:08 | disposition home or self-care (01) ==
LOC: ER 09:28
DX: J34.0 Abscess, furuncle and carbuncle of nose (principal); I10 Essential (primary) hypertension; Z88.8 Allergy status to other drugs, medicaments and biological substances
CPT/HCPCS: 99283

== ENCOUNTER 2018-07-17 10:57 | Emergency (ER) | payer BC ==
--- OUTSIDE RECORDS SUMMARY | 2018-07-17 10:59 | XMS REPORT | Clinical Summary ---
:1970 Author Organization [facility] Address [address] [place] [address] Care Team Providers Name Role Phone Unavailable Primary Care Provider Unavailable Allergies Active Allergy Reactions Severity Noted Date Comments Irlokxedi-Fp-Yvdtxtifvibhy 10/10/2017 Metformin 10/10/2017 Linagliptin 10/10/2017 Medications Medication [...] 10/10/2017 Orders Only Cardiology ProviderThelma MD after 07/16/2017 Social History Tobacco Use Types Packs/Day Years [...] are in SPECTRAL COLOR DOPPLER the results (21746) section. ECG 12-LEAD Routine 10/06/2017 [id number] Routine 10/06/2017 after 07/16/2017 Results Echocardiogram complete w contrast and 3D [...] Address City/State/Zipcode Phone Number [facility] [address] [place] [address] Miscellaneous Lab Result (10/06/2017) Specimen Blood Narrative Performed At ECG 12 lead (10/06/2017) Narrative Performed At after 07/16/2017 Insurance Payer Benefit Plan / Group Subscriber ID Type Phone Address BCBS BCBS CHOICE PPO/FEDERAL EMPL PPO xxxxxxxxxxxx PPO Advance Directives Patient has advance care planning documents on file. For more information, please contact:Matthew [address] [place] [address]
[2018-07-17 12:47] LABS: Absolute Lymphocytes (CBC) 1.4 K/uL (0.7-4.9); Absolute Monocytes 0.4 K/uL (0.1-1.3); Absolute Neutrophil 4.6 K/uL (1.8-8.0); Basophils % 0.6 % (0-1.3); Eosinophils % 3.1 % (0-4.4); Hematocrit 31.8 % (36.0-45.0); Lymphocytes % 20.6 % (15.3-44.8); MPV 8.9 fL (7.6-11.3); Monocytes % 6.7 % (3.3-12.3); RBC Red Blood Cell Count 3.74 M/uL (3.86-4.86)
[2018-07-17 13:03] LABS: Magnesium 1.9 mg/dL (1.8-2.4); Potassium 4.9 mmol/L (3.5-5.1)
[2018-07-17] MEDS ORDERED: ONDANSETRON 4 MG/2 ML VIAL ONE (13:10)
--- NOTE | 2018-07-17 13:57 | ER ---
Nurse's Notes [facility] Name: Emily Barbour Age: 47 yrs Sex: Female : 1970 Arrival Date: 07/17/2018 Time: 11:00 Bed 19 Private MD: Jean-Paul Cameron Diagnosis: Cramp and spasm Presentation: 07/17 11:15 Presenting complaint: Patient states: osmin calf cramping, nausea, photosensitivity x 1 sv day. Denies v/d/headache. Transition of care: patient was not received from another setting of care. Onset of symptoms was July 16, 2018. Care prior to arrival: None. 11:15 Method Of Arrival: Ambulatory sv 11:15 Acuity: SALENA 3 sv 12:00 Risk Assessment: Do you want to hurt yourself or someone else? Patient reports no ph desire to harm self or others. Initial Sepsis Screen: Does the patient meet any 2 criteria? No. Patient's initial sepsis screen is negative. Does the patient have a suspected source of infection? No. Patient's initial sepsis screen is negative. Triage Assessment: 11:18 General: Appears in no apparent distress. uncomfortable, well developed, Behavior is sv calm, cooperative, appropriate for age. Pain: Complains of pain in right leg and left leg Pain currently is 5 out of 10 on a pain scale. Quality of pain is described as crampy, Pain began 1 day ago. Neuro: Level of Consciousness is awake, alert, obeys commands, Oriented to person, place, time, situation, Gait is steady. Neuro: Reports photophobia. Respiratory: Respiratory effort is even, unlabored, Respiratory pattern is regular, symmetrical. GI: Reports nausea. Historical: - Allergies: 11:17 Benadryl; sv 11:17 metformin; sv 11:17 Tradjenta; sv - PMHx: 11:17 Anemia; Diabetes - IDDM; High Cholesterol; Hypertension; Renal Disease; Tendonitis in sv Elbows; - PSHx: 11:17 Hysterectomy; Appendectomy; sv - Immunization history:: Adult Immunizations unknown. - Social history:: The patient lives at home, Smoking status: Patient/guardian denies using tobacco. - Ebola Screening: : No symptoms or risks identified at this time. Screenin:00 Abuse screen: Denies threats or abuse. Denies injuries from another. Nutritional ph screening: No deficits noted. Tuberculosis screening: No symptoms or risk factors identified. Fall Risk None identified. Assessment: 11:45 General: Appears in no apparent distress. comfortable, obese, well groomed, Behavior is ph calm, cooperative, appropriate for age, Denies fever, feeling ill. Pain: Complains of pain in abdomen, right leg and left leg Quality of pain is described as crampy, Is intermittent. Neuro: Level of Consciousness is awake, alert, obeys commands, Oriented to person, place, time, situation. Cardiovascular: Capillary refill < 3 seconds Patient's skin is warm and dry. Respiratory: Airway is patent Respiratory effort is even, unlabored, Respiratory pattern is regular, symmetrical. GI: Abdomen is round non-distended, Reports upper abdominal pain, nausea, vomiting, Patient currently denies diarrhea. Derm: Skin is intact, Skin is pink, warm \T\ dry. Musculoskeletal: Circulation, motion, and sensation intact. Range of motion: intact in all extremities. 13:00 Reassessment: Patient appears in no apparent distress at this time. Patient and/or ph family updated on plan of care and expected duration. Pain level reassessed. Patient is alert, oriented x 3, equal unlabored respirations, skin warm/dry/pink. 14:00 Reassessment: Patient appears in no apparent distress at this time. Patient and/or ph family updated on plan of care and expected duration. Pain level reassessed. Patient is alert, oriented x 3, equal unlabored respirations, skin warm/dry/pink. Vital Signs: 11:17 BP 153 / 80; Pulse 94; Resp 20; Temp 98; Pulse Ox 98% ; Weight 97.52 kg; Height 5 ft. 5 sv in. (165.10 cm); Pain 5/10; 12:00 BP 149 / 78; Pulse 87; Resp 18; Pulse Ox 100% on R/A; ph 13:00 BP 132 / 76; Pulse 75; Resp 16; Pulse Ox 98% on R/A; ph 14:00 BP 138 / 81; Pulse 74; Resp 16; Temp 98.0; Pulse Ox 99% on R/A; ph 11:17 Body Mass Index 35.78 (97.52 kg, 165.10 cm) sv ED Course: 11:00 Patient arrived in ED. mr 11:01 Jean-Paul Cameron DO is Private Physician. mr 11:16 Triage completed. sv 11:18 Arm band placed on. sv 11:22 Suly Haque, RN is Primary Nurse. ph 11:30 Yordan Magana MD is Attending Physician. gs 12:00 Patient has correct armband on for positive identification. Placed in gown. Bed in low ph position. Call light in reach. Side rails up X 1. Pulse ox on. NIBP on. Door closed. Noise minimized. Lights dimmed. Warm blanket given. 12:15 Inserted saline lock: 20 gauge in right antecubital area, using aseptic technique. ph 12:24 EKG done, by optical engineering technician. reviewed by Yordan Magana MD. 3 13:56 Jean-Paul Cameron DO is Referral Physician. 14:20 No provider procedures requiring assistance completed. IV discontinued, intact, ph bleeding controlled, No redness/swelling at site. Pressure dressing applied. Administered Medications: 13:05 Drug: Zofran 4 mg Route: IVP; Site: right antecubital; ph Outcome: 13:56 Discharge ordered by . 14:24 Patient left the ED. ph 14:24 Discharged to home ambulatory, with significant other. ph 14:24 Condition: good 14:24 Discharge instructions given to patient, Instructed on discharge instructions, follow up and referral plans. Demonstrated understanding of instructions, follow-up care. Signatures: Rachel Murray RN RN Amanda Pagan mr Suly Haque RN RN Yordan Magana MD MD Cyndie Vallecillo 3 Corrections: (The following items were deleted from the chart) 11:19 11:17 Pulse 94bpm; Resp 20bpm; Pulse Ox 98%; Temp 98F; 97.52 kg; Height 5 ft. 5 in.; BMI: 35.7; Pain 5/10; sv
--- NOTE | 2018-07-17 13:57 | EDPHYS ---
Physician Documentation [facility] Name: Emily Barbour Age: 47 yrs Sex: Female : 1970 Arrival Date: 07/17/2018 Time: 11:00 Bed 19 Private MD: Jean-Paul Cameron ED Physician Yordan Magana HPI: 07/17 13:53 This 47 yrs old Female presents to ER via Ambulatory with complaints of Leg gs cramps, Nausea, Vision Problem. 13:54 The patient presents to the emergency department with nausea. Onset: The gs symptoms/episode began/occurred 2 day(s) ago. Possible causes: ELECTROLYTE PROBLEM ALSO LEG CRAMPING. The symptoms are aggravated by nothing. The symptoms are alleviated by nothing. Associated signs and symptoms: Pertinent negatives: abdominal pain, dysuria, fever. Severity of symptoms: At their worst the symptoms were moderate in the emergency department the symptoms are unchanged. The patient has experienced similar episodes in the past, several times. Historical: - Allergies: 11:17 Benadryl; sv 11:17 metformin; sv 11:17 Tradjenta; sv - PMHx: 11:17 Anemia; Diabetes - IDDM; High Cholesterol; Hypertension; Renal Disease; Tendonitis in sv Elbows; - PSHx: 11:17 Hysterectomy; Appendectomy; sv - Immunization history:: Adult Immunizations unknown. - Social history:: The patient lives at home, Smoking status: Patient/guardian denies using tobacco. - Ebola Screening: : No symptoms or risks identified at this time. ROS: 13:54 All other systems are negative. gs Exam: 13:54 Head/Face: Normocephalic, atraumatic. Eyes: Pupils equal round and reactive to light, gs extra-ocular motions intact. Lids and lashes normal. Conjunctiva and sclera are non-icteric and not injected. Cornea within normal limits. Periorbital areas with no swelling, redness, or edema. ENT: Nares patent. No nasal discharge, no septal abnormalities noted. Tympanic membranes are normal and external auditory canals are clear. Oropharynx with no redness, swelling, or masses, exudates, or evidence of obstruction, uvula midline. Mucous membranes moist. Neck: Trachea midline, no thyromegaly or masses palpated, and no cervical lymphadenopathy. Supple, full range of motion without nuchal rigidity, or vertebral point tenderness. No Meningismus. Chest/axilla: Normal chest wall appearance and motion. Nontender with no deformity. No lesions are appreciated. Cardiovascular: Regular rate and rhythm with a normal S1 and S2. No gallops, murmurs, or rubs. Normal PMI, no JVD. No pulse deficits. Respiratory: Lungs have equal breath sounds bilaterally, clear to auscultation and percussion. No rales, rhonchi or wheezes noted. No increased work of breathing, no retractions or nasal flaring. Abdomen/GI: Soft, non-tender, with normal bowel sounds. No distension or tympany. No guarding or rebound. No evidence of tenderness throughout. Back: No spinal tenderness. No costovertebral tenderness. Full range of motion. Skin: Warm, dry with normal turgor. Normal color with no rashes, no lesions, and no evidence of cellulitis. MS/ Extremity: Pulses equal, no cyanosis. Neurovascular intact. Full, normal range of motion. Neuro: Awake and alert, GCS 15, oriented to person, place, time, and situation. Cranial nerves II-XII grossly intact. Motor strength 5/5 in all extremities. Sensory grossly intact. Cerebellar exam normal. Normal gait. 13:54 Constitutional: The patient appears alert, awake. Vital Signs: 11:17 BP 153 / 80; Pulse 94; Resp 20; Temp 98; Pulse Ox 98% ; Weight 97.52 kg; Height 5 ft. 5 sv in. (165.10 cm); Pain 5/10; 12:00 BP 149 / 78; Pulse 87; Resp 18; Pulse Ox 100% on R/A; ph 13:00 BP 132 / 76; Pulse 75; Resp 16; Pulse Ox 98% on R/A; ph 14:00 BP 138 / 81; Pulse 74; Resp 16; Temp 98.0; Pulse Ox 99% on R/A; ph 11:17 Body Mass Index 35.78 (97.52 kg, 165.10 cm) sv MDM: 11:37 Patient medically screened. 13:54 Data reviewed: vital signs, nurses notes, old medical records. Response to treatment: gs the patient's symptoms have markedly improved after treatment, and as a result, I will discharge patient. 07/17 11:39 Order name: CBC with Diff; Complete Time: 12:52 07/17 11:39 Order name: Basic Metabolic Panel; Complete Time: 13:53 07/17 11:39 Order name: Magnesium; Complete Time: 13:53 07/17 11:39 Order name: EKG; Complete Time: 11:40 07/17 11:39 Order name: EKG - Nurse/Tech; Complete Time: 13:59 gs Administered Medications: 13:05 Drug: Zofran 4 mg Route: IVP; Site: right antecubital; ph Disposition: 07/17/18 13:56 Discharged to Home. Impression: Cramp and spasm. - Condition is Stable. - Discharge Instructions: Leg Cramps, Muscle Cramps and Spasms. - Work release form, Medication Reconciliation Form, Thank You Letter, Antibiotic Education, Prescription Opioid Use form. - Follow up: Jean-Paul Cameron DO; When: 2 - 3 days; Reason: Re-evaluation by your physician. Signatures: Dispatcher [employer] Rachel Barr RN RN Suly Haque RN RN Magana, MD [facility] Corrections: (The following items were deleted from the chart) 14:24 13:56 07/17/2018 13:56 Discharged to Home. Impression: Cramp and spasm. Condition is ph Stable. Forms are Medication Reconciliation Form, Thank You Letter, Antibiotic Education, Prescription Opioid Use. Follow up: Jean-Paul Cameron; When: 2 - 3 days; Reason: Re-evaluation by your physician.
[2018-07-17 15:53] VITALS: BP 153/80; TEMP 98; O2SAT 98
== END 2018-07-17 14:24 | disposition home or self-care (01) ==
LOC: ER 10:57
DX: R25.2 Cramp and spasm (principal); D64.9 Anemia, unspecified; E11.9 Type 2 diabetes mellitus without complications; I10 Essential (primary) hypertension; E78.00 Pure hypercholesterolemia, unspecified; Z88.8 Allergy status to other drugs, medicaments and biological substances
CPT/HCPCS: 36415; 80048; 83735; 85025; 93005; 96374; 99284; J2405

== ENCOUNTER 2018-10-16 10:04 | Emergency (ER) | payer BC ==
--- OUTSIDE RECORDS SUMMARY | 2018-10-16 10:06 | XMS REPORT ---
:1970 [facility] Address [address] [place] [address] [address]. [address] [place] [address] Care Team Providers Name Role Phone DR BERE SOLANO Unavailable Unavailable Problems This patient has no known problems. Allergies, Adverse Reactions, Alerts This patient has no known allergies or adverse reactions. Medications This patient has no known medications. Encounters Start End Encounter Admission Attending Care Care Encounter Date/Time Date/Time Type Type Clinicians Facility Department ID 2018 [address] [facility] [id number] 04:57:00 08:15:00 BERE Results Test Description Test Time Test Comments Text Results Atomic Results Result Comments GLUCOMETER GLUCOSE- LAB USE ONLY 2018 06:59:00 Test Item Value Reference Range Comments GLUCOMETER (test code=GMG) 219 mg/dL 70-100 DR [place] AWAREMeter ID: [id number]: [id number] LA[address] HICKEY GLUCOMETER GLUCOSE- LAB USE [id number] 04:45:00 Test Item Value Reference Range Comments GLUCOMETER (test code=GMG) 212 mg/dL 70-100 Meter ID: [id number]: [id number] PINEDA CAN
--- OUTSIDE RECORDS SUMMARY | 2018-10-16 10:06 | XMS REPORT | Clinical Summary ---
:1970 Author Organization [facility] Address [address] [place] [address] Care Team Providers Name Role Phone Unavailable Primary Care Provider Unavailable Allergies Active Allergy Reactions Severity Noted Date Comments Erduigzje-Zj-Xeiuzaaymolnd 10/10/2017 Metformin 10/10/2017 Linagliptin 10/10/2017 Medications Medication [...] capsule capsule Active Problems Not on file Social History Tobacco Use Types Packs/Day Years Used Date Former Smoker Smokeless Tobacco: Never Used Alcohol Use Drinks/Week oz/Week Comments No Sex Assigned at Date Recorded Not on file Job Start Date Occupation Industry Not on file Not on file Not on file Travel History Travel Start Travel End No recent travel history available. Last Filed Vital Signs Not on file Plan of Treatment Health Maintenance Due Date Last Done Comments DIABETIC RETINAL EYE EXAM 1970 DIABETIC FOOT EXAM 1980 URINE MICROALBUMIN 1980 INFLUENZA VACCINE 11/16/2018 Results Not on fileafter 10/15/2017 Advance Directives Patient has advance care planning documents on file. For more information, please contact:Matthew [place] [address]
[2018-10-16 11:50] LABS: Absolute Lymphocytes (CBC) 0.4 K/uL (0.7-4.9); Basophils % 0.5 % (0-1.3); Hematocrit 21.6 % (36.0-45.0); Lymphocytes % 8.6 % (15.3-44.8); Monocytes % 5.9 % (3.3-12.3); Protime INR 1.33; RBC Red Blood Cell Count 2.41 M/uL (3.86-4.86)
--- NOTE | 2018-10-16 11:53 | RAD REPORT ---
EXAM DESCRIPTION: RAD - Chest Single View - 10/16/2018 11:45 am CLINICAL HISTORY: Dyspnea, recent surgery COMPARISON: November 2017 TECHNIQUE: AP portable chest image was obtained 1143 hour . FINDINGS: Lung volumes are low. Heart, vasculature and lung markings are all accentuated by a the sh allow inspiration, body habitus and portable technique. Mild failure/ volume overload suspected. Trac hea is midline. No measurable pleural effusion and no pneumothorax. No acute bony abnormality seen. N o acute aortic findings suspected. IMPRESSION: Mild CHF/volume overload pattern.
[2018-10-16 12:18] LABS: Albumin 3.2 g/dL (3.4-5.0); Bilirubin Direct 0.4 mg/dL (0-0.2); Bilirubin Total 0.6 mg/dL (0.2-1.0); Magnesium 2.5 mg/dL (1.8-2.4); Potassium 5.3 mmol/L (3.5-5.1); Protein, Total 8.2 g/dL (6.4-8.2); Troponin (Emerg Dept Use Only) 0.03 ng/mL (0.0-0.045)
[2018-10-16 12:20] LABS: Blood Morphology Comment NOT SEEN (NOT SEEN); Platelet Estimate ADEQ; Platelets, Giant FEW
[2018-10-16] MEDS ORDERED: HYDROCODONE/APAP 5/325 MG TAB ONE (12:32)
[2018-10-16 13:30] LABS: Urine Blood 1+ (NEG); Urine Glucose NEGATIVE (NEG); Urine Protein 2+ (NEG); Urine pH 5.5 (5.0-7.0)
--- NOTE | 2018-10-16 13:51 | RAD REPORT ---
EXAM DESCRIPTION: US - Abdomen Exam Limited - 10/16/2018 1:00 pm CLINICAL HISTORY: Abdominal pain, abdominal distention, abnormal liver function COMPARISON: CT imaging August 2017 FINDINGS: Gallbladder is absent. Common bile duct is normal with no common duct stone identified. Li fernando is prominent measuring 18 cm in maximum dimension. Doppler evaluation shows normal velocity, wave form and flow direction in the portal vein. The liver shows increased echogenicity throughout the par enchyma with decreased sonographic penetrance. This is typically fatty infiltration. Diffuse hepatic parenchymal disease can give this pattern as well. No focal liver lesion identifiable. IMPRESSION: Fatty infiltration versus diffuse hepatic parenchymal disease in a prominent 18 centimet er liver. No focal liver lesion identified. Cholecystectomy change. No biliary tree dilatation.
[2018-10-16 13:57] LABS: Urine Bacteria 20-50 /HPF (<20); Urine RBC >50 /HPF (NONE SEEN)
[2018-10-16 13:58] LABS: Urine Culture Reflex Order REFLEXED
[2018-10-16] MEDS ORDERED: NITROGLYCERIN 0.4 MG/TAB SL ONE (14:07)
--- NOTE | 2018-10-16 14:21 | ER ---
Nurse's Notes [facility] Name: Emily Barbour Age: 48 yrs Sex: Female : 1970 Arrival Date: 10/16/2018 Time: 10:06 Bed 3 Private MD: Jean-Paul Cameron Diagnosis: Acute Shortness of Breath;acute CHF;elevated transminases (acute hepatitis);anemia;renal insufficiency Presentation: 10/16 10:17 Presenting complaint: Patient states: i had surgery last Tuesday, bone spur on R leg, hj since then i had SOB and i cant pee; reports chills;. Transition of care: patient was not received from another setting of care. Onset of symptoms was October 16, 2018. Risk Assessment: Do you want to hurt yourself or someone else? Patient reports no desire to harm self or others. Initial Sepsis Screen: Does the patient meet any 2 criteria? No. Patient's initial sepsis screen is negative. Does the patient have a suspected source of infection? No. Patient's initial sepsis screen is negative. Care prior to arrival: None. 10:17 Method Of Arrival: Ambulatory 10:17 Acuity: SALENA 2 hj Historical: - Allergies: 10:19 Benadryl; hj 10:19 metformin; hj 10:19 Tradjenta; hj - PMHx: 10:19 Anemia; Diabetes - IDDM; High Cholesterol; Hypertension; Renal Disease; Tendonitis in hj Elbows; - PSHx: 10:19 Hysterectomy; Appendectomy; R leg burn spur; hj - Immunization history:: Adult Immunizations up to date. - Social history:: Smoking status: Patient/guardian denies using tobacco. - Family history:: not pertinent. - Ebola Screening: : Patient negative for fever greater than or equal to 101.5 degrees Fahrenheit, and additional compatible Ebola Virus Disease symptoms Patient denies exposure to infectious person Patient denies travel to an Ebola-affected area in the 21 days before illness onset No symptoms or risks identified at this time. - Hospitalizations: : Patient was recently seen at. Screenin:30 Abuse screen: Denies threats or abuse. Denies injuries from another. Nutritional aj screening: No deficits noted. Tuberculosis screening: No symptoms or risk factors identified. Fall Risk None identified. Assessment: 11:30 General: Appears in no apparent distress. comfortable, Behavior is calm, cooperative, aj appropriate for age. Pain: Denies pain. Cardiovascular: Reports shortness of breath, Rhythm is regular. Respiratory: Reports shortness of breath Airway is patent Respiratory effort is even, unlabored, Respiratory pattern is regular, symmetrical, Breath sounds are clear bilaterally. Derm: Skin is intact, is healthy with good turgor, Skin is pink, warm \T\ dry. normal, Wound noted right foot Wound is surgical wound approx 1.5 weeks old. Musculoskeletal: Reports pain in right foot and right leg. 12:34 Reassessment: Patient appears in no apparent distress at this time. Patient and/or ch family updated on plan of care and expected duration. Pain level reassessed. Patient is alert, oriented x 3, equal unlabored respirations, skin warm/dry/pink. lpt oob to restroom for urine. pt taken via wheelchair. US delayed due to pt need for restroom. pt tolerated well. 14:13 Reassessment: Patient appears in no apparent distress at this time. results reviewed ch with pt and family by physician and nurse. Jacquie in room to pull T and S and medicate pt. 14:23 Reassessment: Patient appears in no apparent distress at this time. No changes from aj previously documented assessment. Patient and/or family updated on plan of care and expected duration. Pain level reassessed. Patient is alert, oriented x 3, equal unlabored respirations, skin warm/dry/pink. 16:26 Reassessment: Patient appears in no apparent distress at this time. No changes from aj previously documented assessment. Patient and/or family updated on plan of care and expected duration. Pain level reassessed. Patient is alert, oriented x 3, equal unlabored respirations, skin warm/dry/pink. Patient states symptoms have improved. Vital Signs: 10:19 BP 139 / 61; Pulse 98; Resp 24; Temp 99.0(O); Pulse Ox 89% on R/A; Weight 97.52 kg; Height 5 ft. 5 in. (165.10 cm); Pain 4/10; 10:24 Pulse Ox 95% on 2 lpm NC; hj 12:11 BP 154 / 79; Pulse 75; Resp 19; Pulse Ox 100% on R/A; aj 14:09 BP 140 / 77; Pulse 72; Resp 18; Pulse Ox 99% on R/A; aj 16:26 BP 141 / 77; Pulse 75; Resp 20; Pulse Ox 96% on R/A; aj 10:19 Body Mass Index 35.78 (97.52 kg, 165.10 cm) ED Course: 10:06 Patient arrived in ED. as 10:06 Jean-Paul Cameron DO is Private Physician. as 10:19 Triage completed. hj 10:19 Arm band placed on left wrist. hj 10:48 Arian Arechiga MD is Attending Physician. wa 10:49 Jacquie Pritchett, RN is Primary Nurse. aj 11:14 EKG done, by cert pharmacy tech. reviewed by Arian Arechiga MD. at1 11:30 Patient has correct armband on for positive identification. aj 11:30 Inserted saline lock: 20 gauge in right antecubital area, using aseptic technique. aj Blood collected. 11:45 X-ray completed. Portable x-ray completed in exam room. Patient tolerated procedure jb2 well. 11:46 XRAY CXR (1 view) In Process Unspecified. EDMS 12:34 No apparent distress. Resting quietly. ch 12:34 vehicle monitor technician on. Pulse ox on. NIBP on. Warm blanket given. Ice pack to injury. ch 12:34 No provider procedures requiring assistance completed. ch 13:00 US Abdomen Limited In Process Unspecified. EDMS 14:18 Addie Leahy MD is Hospitalizing Provider. wa 16:27 Patient transferred, IV remains in place. intact. aj Administered Medications: 12:19 Drug: [place] 5 mg-325 mg 1 tabs Route: PO; aj 14:22 Follow up: Response: Pain is decreased aj 13:56 Drug: Nitroglycerin 0.4 mg Route: Sublingual; aj 14:23 Follow up: Response: No adverse reaction aj 14:22 Drug: Lasix 40 mg Route: IVP; Site: right antecubital; aj 14:44 Follow up: Response: No adverse reaction aj 14:22 Drug: Rocephin - (cefTRIAXone) 1 grams Route: IVPB; Infused Over: 30 mins; Site: right aj antecubital; 14:44 Follow up: Response: No adverse reaction aj 15:26 Follow up: Response: No adverse reaction; IV Status: Completed infusion; IV Intake: 10mlaj Intake: 15:26 IV: 10ml; Total: 10ml. aj Outcome: 14:20 Decision to Hospitalize by Provider. wa 15:10 ER care complete, transfer ordered by . wa 16:27 Transferred by ground EMS to [facility], [facility], Transfer form completed. aj X-rays sent w/ patient. 16:27 Condition: stable 16:27 Instructed on the need for transfer. 16:33 Patient left the ED. aj Signatures: Dispatcher [employer] EDMS Rashida Dominguez, Jacquie Davis RN, ch, RN RN Sagar Carcamo jb2 Clara Arzola Amanda, lunch truck operator EKG Tat1 Eric Lambert RN RN hj Appiah, William, MD MD wa Corrections: (The following items were deleted from the chart) 10:22 10:17 Acuity: SALENA 3 hj hj 10:22 10:19 BP 139 / 61; Pulse 98bpm; Resp 24bpm; Pulse Ox 86% RA; Temp 99.0F Oral; 97.52 kg; hj Height 5 ft. 5 in.; BMI: 35.7; Pain 4/10; hj
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
[2018-10-16] MEDS ORDERED: CEFTRIAXONE/SWI 1gm 1 GM/10 ML SYR ONE (14:29)
[2018-10-16] MEDS ORDERED: FUROSEMIDE 40 MG/4 ML VIAL ONE (14:29)
--- NOTE | 2018-10-16 19:43 | EKG ---
Test Date: 2018-10-16 Test Time: 11:09:18 Disease And Insect Control Boss: RACHAEL MEASUREMENT RESULTS: Intervals: Rate: 76 VA: 164 QRSD: 150 QT: 438 QTc: 492 [place]: P: 52 VA: 164 QRS: -60 T: 24 INTERPRETIVE STATEMENTS: Normal sinus rhythm Right bundle branch block Left anterior fascicular block Bifascicular block Cannot rule out Inferior infarct (masked by fascicular block?), age undetermined Abnormal ECG Compared to ECG 07/17/2018 12:18:05 Myocardial infarct finding now present Bifascicular block still present Electronically Signed On 10-16-18 19:40:30 CDT by Ankit Simmons
[2018-10-18 17:34] VITALS: BP 141/77; TEMP 99; O2SAT 96
== END 2018-10-16 16:33 | disposition short-term general hospital (02) ==
LOC: ER 10:04
DX: D64.9 Anemia, unspecified (principal); I50.9 Heart failure, unspecified; N28.9 Disorder of kidney and ureter, unspecified; R74.0 Nonspecific elevation of levels of transaminase and lactic acid dehydrogenase [LDH]; I10 Essential (primary) hypertension; Z88.8 Allergy status to other drugs, medicaments and biological substances
CPT/HCPCS: 36415; 71045; 76705; 80048; 80076; 81003; 81015; 83690; 83735; 83880; 84484; 85025; 85610; 86850; 86900; 86901; 87086; 87088; 93005; 96365; 96375; 99285; J0696; J1940

== ENCOUNTER 2018-12-22 13:55 | Inpatient (IN) | payer BC ==
--- OUTSIDE RECORDS SUMMARY | 2018-12-22 13:57 | XMS REPORT | Clinical Summary ---
:1970 Author Organization [facility] Address [address] [place] [address] Care Team Providers Name Role Phone Unavailable Primary Care Provider Unavailable Allergies Active Allergy Reactions Severity Noted Date Comments Akrzznyey-Ci-Yrmnsedisouol 10/10/2017 Metformin 10/10/2017 Linagliptin 10/10/2017 Medications Medication [...] Health Maintenance Due Date Last Done Comments CERVICAL CANCER SCREENING 10/14/1991 INFLUENZA VACCINE 11/16/2018 Results Not on fileafter 12/21/2017 Advance Directives For more information, please contact: [phone] Type Date Recorded Patient Pull Over Explanation Advance Directives, Living Will and Medical Power of Cloud Infrastructure Architect
--- OUTSIDE RECORDS SUMMARY | 2018-12-22 13:59 | XMS REPORT | Clinical Summary ---
:1970 Author Organization [facility] Address [address] [place] [address] Care Team Providers Name Role Phone Pcp, No Primary Care Provider Unavailable Allergies Active Allergy Reactions Severity Noted Date Comments Diphenhydramine Hcl Rash Low 10/16/2018 Metformin Other (See Comments) 10/16/2018 Advised not to take cause of kidneys Linagliptin Diarrhea, Nausea And 10/16/2018 Loss of appetite Vomiting Medications Medication Sig Dispensed Refills Start Date End Date Status amitriptyline (ELAVIL) Take 50 mg by 0 Active 50 MG tablet mouth nightly. DULoxetine (CYMBALTA) Take 20 mg by 0 Active 20 MG capsule mouth daily. magnesium gluconate Take 500 mg by 0 Active (MAGONATE) 27.5 mg mouth 2 (two) magne- sium (500 mg) times daily. tablet ferrous sulfate 325 (65 Take 325 mg by 0 Active FE) MG tablet mouth daily with breakfast. cholecalciferol, Take by mouth. 0 Active vitamin D3, 2,000 unit Cap cyanocobalamin (VITAMIN Take by mouth 0 Active B-12) 100 MCG tablet daily. aspirin 81 MG EC tablet Take 1 tablet 90 tablet 3 10/22/2018 10/22/2019 Active (81 mg total) by mouth daily. allopurinol (ZYLOPRIM) Take 1 tablet 30 tablet 0 10/22/2018 10/22/2019 Active 100 MG tablet (100 mg total) by mouth daily. furosemide (LASIX) 40 Take 1 tablet 30 tablet 0 10/22/2018 10/22/2019 Active MG tablet (40 mg total) by mouth daily. NIFEdipine (ADALAT CC) Take 1 tablet 90 tablet 0 10/22/2018 10/22/2019 Active 30 MG 24 hr tablet (30 mg total) by mouth daily. 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 kidney disease, 10/16 with long-term current use of insulin SHREE (obstructive sleep apnea) 10/16/2018 Morbid obesity 10/16/2018 Encounters Date Type Specialty Care Team Description 10/16/2018 - Hospital Encounter Cardiology Belinda Marin Acute respiratory distress (Primary Dx); 10/21/2018 MD Farhat Elevated liver enzymes; Rusty Moreno MD Screening for malignant neoplasm; Corey Fraustokauri Anemia, unspecified type; MD Anabell Hepatosplenomegaly; OMAR (acute kidney injury) (HCC); Immunity status testing; Metabolic syndrome; Obesity, Class I, BMI 30-34.9; Acute congestive heart failure, unspecified heart failure type (HCC); Obesity, Class II, BMI 35-39.9; SHREE (obstructive sleep apnea); Stage 4 chronic kidney disease (HCC) 10/16/2018 Orders Only General Internal Medicine after 12/21/2017 Family History Medical History Relation Name Comments Congenital heart disease Brother Stroke Father Diabetes Mother Asthma Sister Relation Name Status Comments Brother Father Alive Mother Alive Sister Alive Social History Tobacco Use Types Packs/Day Years Used Date Former Smoker 0.5 20 Quit: 09/2013 Smokeless Tobacco: Never Used Alcohol Use Drinks/Week oz/Week Comments No Alcohol Habits Answer Date Recorded How often do you have a drink containing alcohol? Never 10/16/2018 How many drinks containing alcohol do you have on a typical Not asked day when you are drinking? How often do you have six or more drinks on one occasion? Not asked Sex Assigned at Date Recorded Not on file Job Start Date Occupation Industry Not on file Not on file Not on file Travel History Travel Start Travel End No recent travel history available. Last Filed Vital Signs Vital Sign Reading Time Taken Blood Pressure 114/59 10/21/2018 8:55 AM CDT Pulse 70 10/21/2018 8:55 AM CDT Temperature 36.7 C (98 F) 10/21/2018 8:55 AM CDT Respiratory Rate 18 10/21/2018 8:55 AM CDT Oxygen Saturation 97% 10/21/2018 8:55 AM CDT Inhaled Oxygen Concentration 21% 10/19/2018 3:13 AM CDT Weight 101.2 kg (223 lb 1.6 oz) 10/21/2018 8:55 AM CDT Height 165.1 cm (5' 5") 10/16/2018 6:00 PM CDT Body Mass Index 37.13 10/21/2018 8:55 AM CDT Plan of Treatment Not on file Procedures Procedure Name Priority Date/Time Associated Comments Diagnosis RHYTHM STRIP - SCAN 10/23/2018 1:40 PM CDT POCT-GLUCOSE METER Routine 10/21/2018 8:07 Results for this AM CDT procedure are in the results section. MAGNESIUM Routine 10/21/2018 5:03 Results for this AM CDT procedure are in the results section. BASIC METABOLIC PANEL Routine 10/21/2018 5:03 Results for this (7) AM CDT procedure are in the results section. FERRITIN Routine 10/21/2018 5:03 Results for this AM CDT procedure are in the results section. LACTATE DEHYDROGENASE Routine 10/21/2018 5:03 Results for this (LDH) AM CDT procedure are in the results section. HEPATIC FUNCTION PANEL Routine 10/21/2018 5:03 Results for this AM CDT procedure are in the results section. HEPATITIS B PANEL Routine 10/21/2018 5:03 Results for this AM CDT procedure are in the results section. HEPATITIS A PANEL Routine 10/21/2018 5:03 Results for this AM CDT procedure are in the results section. POCT-GLUCOSE METER Routine 10/20/2018 9:07 Results for this PM CDT procedure are in the results section. POCT-GLUCOSE METER Routine 10/20/2018 6:15 Results for this PM CDT procedure are in the results section. FLOW CYTOMETRY Routine 10/20/2018 11:51 Results for this AM CDT procedure are in the results section. FLOW CYTOMETRY Routine 10/20/2018 11:51 Results for this REQUISITION AM CDT procedure are in the results section. CHROMOSOMES CANCER STUDY Routine 10/20/2018 11:51 AM CDT BONE MARROW PROCESS. Routine 10/20/2018 11:50 Results for this AM CDT procedure are in the results section. POCT-GLUCOSE METER Routine 10/20/2018 11:29 Results for this AM CDT procedure are in the results section. CT ERIK 10/20/2018 10:57 Results for this BIOPSY/ASPIRATION/INJECT AM CDT procedure are in ION the results section. BONE MARROW EXAM Routine 10/20/2018 10:30 Results for this AM CDT procedure are in the results section. (CELLAVISION MANUAL Routine 10/20/2018 5:15 Results for this DIFF) AM CDT procedure are in the results section. CBC W/PLT COUNT & AUTO Routine 10/20/2018 5:15 Results for this DIFFERENTIAL AM CDT procedure are in the results section. MAGNESIUM Routine 10/20/2018 5:15 Results for this AM CDT procedure are in the results section. BASIC METABOLIC PANEL Routine 10/20/2018 5:15 Results for this (7) AM CDT procedure are in the results section. PHOSPHORUS Routine 10/20/2018 5:15 Results for this AM CDT procedure are in the results section. PT/APTT Routine 10/20/2018 5:15 Results for this AM CDT procedure are in the results section. CBC W/PLT COUNT & AUTO Routine 10/20/2018 5:15 Results for this DIFFERENTIAL AM CDT procedure are in the results section. POCT-GLUCOSE METER Routine 10/19/2018 9:25 Results for this PM CDT procedure are in the results section. TRANSFUSION SERVICE 10/19/2018 5:50 REPORT - SCAN PM CDT POCT-GLUCOSE METER Routine 10/19/2018 5:26 Results for this PM CDT procedure are in the results section. POCT-GLUCOSE METER Routine 10/19/2018 8:59 Results for this AM CDT procedure are in the results section. (CELLAVISION MANUAL Routine 10/19/2018 5:30 Results for this DIFF) AM CDT procedure are in the results section. CBC W/PLT COUNT & AUTO Routine 10/19/2018 5:30 Results for this DIFFERENTIAL AM CDT procedure are in the results section. CBC W/PLT COUNT & AUTO Routine 10/19/2018 5:30 Results for this DIFFERENTIAL AM CDT procedure are in the results section. COMPREHENSIVE METABOLIC Routine 10/19/2018 5:30 Results for this PANEL AM CDT procedure are in the results section. CALCIUM, IONIZED Routine 10/19/2018 5:30 Results for this AM CDT procedure are in the results section. URIC ACID Routine 10/19/2018 5:30 Results for this AM CDT procedure are in the results section. PHOSPHORUS Routine 10/19/2018 5:30 Results for this AM CDT procedure are in the results section. CALCIUM, IONIZED Routine 10/19/2018 5:30 Results for this AM CDT procedure are in the results section. B-TYPE NATRIURETIC Routine 10/19/2018 5:30 Results for this FACTOR (BNP) AM CDT procedure are in the results section. PROTHROMBIN TIME/INR Routine 10/19/2018 5:30 Results for this AM CDT procedure are in the results section. MAGNESIUM Routine 10/19/2018 5:30 Results for this AM CDT procedure are in the results section. HEPATIC FUNCTION PANEL Routine 10/19/2018 5:30 Results for this AM CDT procedure are in the results section. PREPARE LEUKO-REDUCED Routine 10/18/2018 11:54 Results for this RBC PM CDT procedure are in the results section. POCT-GLUCOSE METER Routine 10/18/2018 9:18 Results for this PM CDT procedure are in the results section. POCT-GLUCOSE METER Routine 10/18/2018 5:55 Results for this PM CDT procedure are in the results section. TRANSFUSION SERVICE 10/18/2018 5:50 REPORT - SCAN PM CDT CT ABDOMEN/PELVIS Routine 10/18/2018 3:23 Results for this WITHOUT IV CONTRAST PM CDT procedure are in the results section. CT CHEST WITHOUT IV Routine 10/18/2018 3:23 Results for this CONTRAST PM CDT procedure are in the results section. RESPIRATORY PANEL SLHS Routine 10/18/2018 12:37 Results for this PM CDT procedure are in the results section. RAPID INFLUENZA A&B Routine 10/18/2018 12:37 Results for this SCREEN PM CDT procedure are in the results section. [id number] AP Routine 10/18/2018 12:07 PHENOTYP PM CDT D-DIMER Routine 10/18/2018 12:07 Results for this PM CDT procedure are in the results section. HAPTOGLOBIN Routine 10/18/2018 12:06 Results for this PM CDT procedure are in the results section. PROTEIN ELECTROPHORESIS, AP Routine 10/18/2018 12:06 Results for this SERUM PM CDT procedure are in the results section. RHEUMATOID FACTOR AB, Routine 10/18/2018 12:06 Results for this REFLEX TO TITER PM CDT procedure are in the results section. HIV-1 ANTIGEN WITH Routine 10/18/2018 12:06 Results for this HIV-1/2 ANTIBODY PM CDT procedure are in the results section. CMV PCR, QUANTITATIVE Routine 10/18/2018 12:06 Results for this PM CDT procedure are in the results section. EBV VIRAL LOAD Routine 10/18/2018 12:06 Results for this PM CDT procedure are in the results section. POCT-GLUCOSE METER Routine 10/18/2018 10:43 Results for this AM CDT procedure are in the results section. ANGELES TITER AND PATTERN Routine 10/18/2018 9:43 Results for this AM CDT procedure are in the results section. ANTI-NUCLEAR ANTIBODY Routine 10/18/2018 9:43 Results for this (ANGELES) AM CDT procedure are in the results section. ALPHA FETOPROTEIN (AFP), Routine 10/18/2018 9:42 Results for this TUMOR MARKER AM CDT procedure are in the results section. TISSUE TRANSGLUTAMINASE Routine 10/18/2018 9:42 Results for this ABS,IGG AND IGA AM CDT procedure are in the results section. IRON, TIBC, % SAT. Routine 10/18/2018 9:42 Results for this (WITHOUT FERRITIN) AM CDT procedure are in the results section. FERRITIN Routine 10/18/2018 9:42 Results for this AM CDT procedure are in the results section. CERULOPLASMIN Routine 10/18/2018 9:42 Results for this AM CDT procedure are in the results section. ACTIN (SMOOTH MUSCLE) Routine 10/18/2018 9:42 Results for this ANTIBODY, IGG AM CDT procedure are in the results section. ANTI-MITOCHONDRIAL AB, Routine 10/18/2018 9:42 Results for this REFLEX TO TITER AM CDT procedure are in the results section. POCT-GLUCOSE METER Routine 10/18/2018 8:52 Results for this AM CDT procedure are in the results section. (CELLAVISION MANUAL Routine 10/18/2018 5:42 Results for this DIFF) AM CDT procedure are in the results section. CBC W/PLT COUNT & AUTO Routine 10/18/2018 5:42 Results for this DIFFERENTIAL AM CDT procedure are in the results section. RETICULOCYTE COUNT Routine 10/18/2018 5:42 Results for this AM CDT procedure are in the results section. TRIGLYCERIDES Routine 10/18/2018 5:42 Results for this AM CDT procedure are in the results section. CBC W/PLT COUNT & AUTO Routine 10/18/2018 5:42 Results for this DIFFERENTIAL AM CDT procedure are in the results section. PHOSPHORUS Routine 10/18/2018 5:42 Results for this AM CDT procedure are in the results section. CALCIUM, IONIZED Routine 10/18/2018 5:42 Results for this AM CDT procedure are in the results section. PROTHROMBIN TIME/INR Routine 10/18/2018 5:42 Results for this AM CDT procedure are in the results section. MAGNESIUM Routine 10/18/2018 5:42 Results for this AM CDT procedure are in the results section. HEPATIC FUNCTION PANEL Routine 10/18/2018 5:42 Results for this AM CDT procedure are in the results section. BASIC METABOLIC PANEL Routine 10/18/2018 5:42 Results for this (7) AM CDT procedure are in the results section. EOSINOPHIL SMEAR, URINE Routine 10/18/2018 5:42 Results for this AM CDT procedure are in the results section. POCT-GLUCOSE METER Routine 10/17/2018 9:52 Results for this PM CDT procedure are in the results section. ECHOCARDIOGRAM REPORT - 10/17/2018 9:11 SCAN PM CDT XR CHEST 1 VIEW STAT 10/17/2018 6:00 Results for this PORTABLE/BEDSIDE PM CDT procedure are in the results section. HEREDITARY Routine 10/17/2018 4:13 Results for this HEMOCHROMATOSIS DNA PM CDT procedure are in the results section. FIBRINOGEN Routine 10/17/2018 4:13 Results for this PM CDT procedure are in the results section. LACTATE DEHYDROGENASE Routine 10/17/2018 4:13 Results for this (LDH) PM CDT procedure are in the results section. FERRITIN Routine 10/17/2018 4:13 Results for this PM CDT procedure are in the results section. TRANSFUSE LEUKO-REDUCED Routine 10/17/2018 3:56 RED BLOOD CELLS PM CDT POCT-GLUCOSE METER Routine 10/17/2018 12:44 Results for this PM CDT procedure are in the results section. NM LUNG SCAN PERFUSION STAT 10/17/2018 10:19 Results for this PARTICULATE VENT AM CDT procedure are in the results section. ABORH, MANUAL STAT 10/17/2018 8:28 Results for this AM CDT procedure are in the results section. POCT-GLUCOSE METER Routine 10/17/2018 8:27 Results for this AM CDT procedure are in the results section. TYPE AND SCREEN, Routine 10/17/2018 8:06 Results for this AUTOMATED AM CDT procedure are in the results section. US PELVIS LIMITED Routine 10/17/2018 7:37 Results for this AM CDT procedure are in the results section. US ABDOMINAL WITH Routine 10/17/2018 7:37 Results for this DOPPLER AM CDT procedure are in the results section. CBC W/PLT COUNT & AUTO Routine 10/17/2018 5:17 Results for this DIFFERENTIAL AM CDT procedure are in the results section. CBC W/PLT COUNT & AUTO Routine 10/17/2018 5:17 Results for this DIFFERENTIAL AM CDT procedure are in the results section. URIC ACID Routine 10/17/2018 5:17 Results for this AM CDT procedure are in the results section. COMPLEMENT COMPONENT C4 Routine 10/17/2018 5:17 Results for this AM CDT procedure are in the results section. COMPLEMENT COMPONENT C3 Routine 10/17/2018 5:17 Results for this AM CDT procedure are in the results section. VITAMIN B12 AND FOLATE Routine 10/17/2018 5:17 Results for this AM CDT procedure are in the results section. FERRITIN Routine 10/17/2018 5:17 Results for this AM CDT procedure are in the results section. IRON, TIBC, % SAT. Routine 10/17/2018 5:17 Results for this (WITHOUT FERRITIN) AM CDT procedure are in the results section. PROTHROMBIN TIME/INR Routine 10/17/2018 5:17 Results for this AM CDT procedure are in the results section. MAGNESIUM Routine 10/17/2018 5:17 Results for this AM CDT procedure are in the results section. LIPID PANEL Routine 10/17/2018 5:17 Results for this AM CDT procedure are in the results section. HEPATIC FUNCTION PANEL Routine 10/17/2018 5:17 Results for this AM CDT procedure are in the results section. BASIC METABOLIC PANEL Routine 10/17/2018 5:17 Results for this (7) AM CDT procedure are in the results section. TROPONIN I Routine 10/17/2018 12:39 Results for this AM CDT procedure are in the results section. ECG 12-LEAD Routine 10/16/2018 11:55 PM CDT Procedure Note - Interface, External Ris In - 10/16/2018 11:56 PM CDT Ventricular Rate 85 BPM Atrial Rate 85 BPM P-R Interval 164 ms QRS Duration 156 ms Q-T Interval 428 ms QTC Calculation(Bazett) 509 ms P [place] 50 degrees R [place] -71 degrees T [place] 35 degrees Normal sinus rhythm Right bundle branch block Left anterior fascicular block Bifascicular block Abnormal ECG No previous ECGs available ECG 12-LEAD Routine 10/16/2018 11:55 PM CDT VENOUS DOPPLER LEGS Routine 10/16/2018 11:21 PM CDT Results for this BILATERAL procedure are in the results section. POCT-GLUCOSE METER Routine 10/16/2018 10:07 PM CDT 2D ECHO W/ DOPPLER Routine 10/16/2018 9:34 PM CDT Results for this (CW/PW/COLOR) procedure are in the results section. CHLORIDE, RANDOM URINE Routine 10/16/2018 9:04 PM CDT PROTEIN, RANDOM URINE Routine 10/16/2018 9:04 PM CDT OSMOLALITY, URINE Routine 10/16/2018 9:04 PM CDT URINALYSIS W/ MICROSCOPIC Routine 10/16/2018 9:04 PM CDT UREA NITROGEN, RANDOM URINE Routine 10/16/2018 6:47 PM CDT CREATININE, RANDOM URINE Routine 10/16/2018 6:47 PM CDT SODIUM, RANDOM URINE Routine 10/16/2018 6:47 PM CDT URINALYSIS W/ REFLEX URINE Routine 10/16/2018 6:47 PM CDT Results for this CULTURE procedure are in the results section. URINE CULTURE Routine 10/16/2018 6:47 PM CDT HEMOGLOBIN A1C AP Routine 10/16/2018 6:26 PM CDT CBC W/PLT COUNT & AUTO Routine 10/16/2018 6:25 PM CDT Results for this DIFFERENTIAL procedure are in the results section. CREATINE KINASE (CK) Routine 10/16/2018 6:25 PM CDT HEPATITIS PANEL, ACUTE Routine 10/16/2018 6:25 PM CDT SALICYLATE LEVEL Routine 10/16/2018 6:25 PM CDT ACETAMINOPHEN LEVEL Routine 10/16/2018 6:25 PM CDT TROPONIN I Routine 10/16/2018 6:25 PM CDT PROTHROMBIN TIME/INR Routine 10/16/2018 6:25 PM CDT CBC W/PLT COUNT & AUTO Routine 10/16/2018 6:25 PM CDT Results for this DIFFERENTIAL procedure are in the results section. COMPREHENSIVE METABOLIC Routine 10/16/2018 6:25 PM CDT Results for this PANEL procedure are in the results section. after 12/21/2017 Results RHYTHM STRIP - SCAN (10/23/2018 1:40 PM CDT) Narrative Performed At POC-Glucose meter (10/21/2018 8:07 AM CDT)Only the most recent of15 resultswithin the time period is included. POC-Glucose Meter 270 (H)Comment: TESTED AT 70 - 110 mg/dL [address] [address] Specimen Blood Performing Organization Address City[facility] Phone Number [address] [address] [place] Hepatitis B Panel (10/21/2018 5:03 AM CDT) Hep B Core Total Ab Nonreactive Nonreactive [facility] Hep B S Ab <8.0 <8.0 mIU/mL [facility] hepatitis B Surface Ag Nonreactive Nonreactive [facility] Specimen Blood Performing Organization Address City/State/Zipcode Phone Number [address] [address] [phone] [place] Hepatitis A Panel (10/21/2018 5:03 AM CDT) Hep A IgM Nonreactive Nonreactive [facility] Hep A IgG Reactive (A) Nonreactive [facility] Specimen Blood Performing Organization Address City[facility] Phone Number [address] [address] [place] Magnesium (10/21/2018 5:03 AM CDT)Only the most recent of5 resultswithin the time period is included. Magnesium 2.1 1.6 - 2.6 mg/dL [facility] Specimen Blood Performing Organization Address City[facility] Phone Number [address] [address] [place] Lactate dehydrogenase (LDH) (10/21/2018 5:03 AM CDT)Only the most recent of2 resultswithin the time period is included. LDH 224 (H) 125 - 220 U/L [facility] Specimen Blood Performing Organization Address [facility] Phone Number [address] [address] [phone] [facility] Ferritin (10/21/2018 5:03 AM CDT)Only the most recent of4 resultswithin the time period is included. Ferritin 1,162 (H) 5 - 275 ng/mL [facility] Specimen Blood Performing Organization Address [facility] Phone Number [address] [address] [place] Hepatic function panel (10/21/2018 5:03 AM CDT)Only the most recent of4 resultswithin the time period is included. Protein, Total 7.7 6.0 - 8.3 gm/dL [facility] Albumin 3.5 3.5 - 5.0 g/dL [facility] Total Bilirubin 0.4 0.2 - 1.2 mg/dL [facility] Bilirubin, Direct 0.2 0.1 - 0.5 mg/dL [facility] Alkaline Phosphatase 61 40 - 150 U/L [facility] AST 39 (H) 5 - 34 U/L [facility] ALT 253 (H) 6 - 55 U/L [facility] Specimen Blood Performing Organization Address City/[facility]/Zipcode Phone Number [facility] [address] [place] [address] CENTER Basic Metabolic Panel (10/21/2018 5:03 AM CDT)Only the most recent of4 resultswithin the time period is included. Sodium 131 (L) 136 - 145 meq/L [facility] Potassium 4.7 3.5 - 5.1 meq/L [facility] Chloride 96 (L) 98 - 107 meq/L [facility] CO2 25 22 - 29 meq/L [facility] BUN 62 (H) 7 - 21 mg/dL [facility] Creatinine 2.80 (H) 0.57 - 1.25 mg/dL [facility] Glucose 278 (H) 70 - 105 mg/dL [facility] Calcium 9.3 8.4 - 10.2 mg/dL [facility] EGFR 18Comment: ESTIMATED GFR IS mL/min/1.73 sq m [facility] NOT ACCURATE [facility] CLEARANCE IN PREDICTING GLOMERULAR FILTRATION RATE. ESTIMATED GFR IS NOT APPLICABLE FOR DIALYSIS PATIENTS. Specimen Blood Performing Organization Address City[facility] Phone Number [place] [phone] [place] [address] CENTER Flow Cytometry Requisition (10/20/2018 11:51 AM CDT) Flow Cytometry See Separate Report [facility] Case # [id number] [facility] Specimen Bone Marrow Performing Organization Address City/[facility]/Zipcode Phone Number [address] [address] CENTER Flow Cytometry (10/20/2018 11:51 AM CDT) Case Report Flow Cytometry Report Case: [id number] [facility] Authorizing Provider:Tiff Colmenares MD Collected: 10/20/2018 1151 [facility] Ordering Location: [address] Received: 10/20/2018 1336 Service Pathologist: Damián Mckeon MD Specimen:Other Flow Interpretation BONE MARROW, FLOW CYTOMETRY: [facility] NO MONOCLONAL B CELL POPULATION. [facility] NO ABNORMAL T CELL POPULATION. NO INCREASED BLAST POPULATION. CORRELATION WITH MORPHOLOGIC FINDINGS REQUIRED. CPT Code(s) 88359 [facility] CLINICAL HISTORY Anemia [facility] SPECIMEN SOURCE Bone marrow [facility] CELLULAR BIOMARKER ANALYSIS CD8, surface-[place], CD56, surface-Lambda, CD5, CD19, CD10, CD3, CD20, CD4, CD45, CD14, CD13, CD33, CD117, CD34, cKappa, cLambda , CD38, CD138 [facility] IMMUNOPHENOTYPIC FINDINGS Specimen Viability: 97.2% [facility] Blasts: The dim CD45+ CD34+ blasts comprise 1.5% of total cells. The majority of these cells express CD13 and CD33 (myeloblasts). Lymphocytes: Bright CD45+ lymphocytes comprise 6.8% of total cells. T cells show a CD4:CD8 ratio of 0.6. B cells are polytypic with a kappa:lambda ratio of 1.7. Myeloid/monocytic populations: As identified by CD45 and light scatter characteristics, granulocytes comprise the majority of cells analyzed, and monocytes comprise 3.4% of total cells. Plasma cells: Less than 1% CD138 positive plasma cells are noted with polytypic cytoplasmic light chain expression. The remaining events analyzed represent nonviable cells, non-hematolymphoid cells, and/or debris. DISCLAIMER These tests were developed and their performance characteristics determined by [facility]. They have not been cleared or approved by the U.S. Food and Drug Administration. The FDA has determined [facility] at such clearance or approval is not necessary. It should not be regarded as investigational or for research. This laboratory is certified under the Clinical Laboratory Improvement Amendments of 1988 (" [facility] CLIA") as qualified to perform high-complexity clinical testing. Specimen Other Performing Organization Address City/State/Zipcode Phone Number [facility] [address] [place] [address] [place] Chromosomes Cancer Study (10/20/2018 11:51 AM CDT) Scan Result [facility] Specimen Bone Marrow Narrative Performed At Performing Organization Address City/State/Zipcode Phone Number [facility] [address] [place] [address] [phone] BONE MARROW PROCESS. (10/20/2018 11:50 AM CDT) Anatomic Case# [id number] [facility] Ordering Physician Darrian [facility] Performing Physician Cora [facility] Clot Rec'd? Yes [facility] Biopsy Rec'd? Yes [facility] Rec'd for Culture? No [facility] Rec'd for Flow? Yes [facility] Rec'd for Cytogenetics? Yes [facility] Rec'd for Molecular Genetics? Yes [facility] Specimen Bone Marrow Narrative Performed At [facility] by Dr Curran slides are [facility] tomer(Rosa) Performing Organization Address City/[facility]/Zipcode Phone Number [facility] [address] [place] [address] [place] [address] Biopsy/Aspiration/Injection (10/20/2018 10:57 AM CDT) Specimen Narrative Performed At FINAL REPORT [facility] CT-guided aspiration and core biopsy of the bone marrow. CLINICAL HISTORY: Anemia, hepatosplenomegaly. COMPARISON STUDY: None. Informed consent was obtained from the patient and the risks of the procedure were explained including bleeding, infection, blood vessels, nerves and other adjacent structures. This exam was performed according to our department dose optimization program which includes automated exposure control, adjustment of the mA and/or kV according to the patient's size and/or use of iterative reconstruction technique. Sedation: 1% Xylocaine was utilized as local analgesia. A total of 0.5 mg of Versed and 25 mcg of fentanyl were administered using the moderate sedation protocol. The patient's nurse was responsible for administrating the medicine and continuous monitoring the patient under the supervision of the physician. Moderate sedation time: 20 minutes. TECHNIQUE: Using sterile technique, CT fluoroscopic guidance and a 12-gauge [employer] core biopsy system, initially a nine cc aspiration of the posterior left iliac bone was performed. This was given to the food equipment service technician who was present at the time of the study and deemed adequate. Subsequently, a core biopsy was obtained. This was also given to the food equipment service technician. COMPLICATIONS: None. ESTIMATED BLOOD LOSS: Minimal. Patient Disposition: The patient was in the same state post procedure as preprocedure. IMPRESSION: Successful CT-guided aspiration and core biopsy of the bone marrow. Signed: Long Shepherd MD Report Verified Date/Time:10/20/2018 11:46:15 Reading Location: [address] Ortho Consult Reading Room Procedure Note Interface, External Ris In - 10/20/2018 11:48 AM CDT FINAL REPORT CT-guided aspiration and core biopsy of the bone marrow. CLINICAL HISTORY: Anemia, hepatosplenomegaly. COMPARISON STUDY: None. Informed consent was obtained from the patient and the risks of the procedure were explained including bleeding, infection, blood vessels, nerves and other adjacent structures. This exam was performed according to our department dose optimization program which includes automated exposure control, adjustment of the mA and/or kV according to the patient's size and/or use of iterative reconstruction technique. Sedation: 1% Xylocaine was utilized as local analgesia. A total of 0.5 mg of Versed and 25 mcg of fentanyl were administered using the moderate sedation protocol. The patient's nurse was responsible for administrating the medicine and continuous monitoring the patient under the supervision of the physician. Moderate sedation time: 20 minutes. TECHNIQUE: Using sterile technique, CT fluoroscopic guidance and a 12-gauge [employer] core biopsy system, initially a nine cc aspiration of the posterior left iliac bone was performed. This was given to the food equipment service technician who was present at the time of the study and deemed adequate. Subsequently, a core biopsy was obtained. This was also given to the food equipment service technician. COMPLICATIONS: None. ESTIMATED BLOOD LOSS: Minimal. Patient Disposition: The patient was in the same state post procedure as preprocedure. IMPRESSION: Successful CT-guided aspiration and core biopsy of the bone marrow. Signed: Long Shepherd MD Report Verified Date/Time: 10/20/2018 11:46:15 Reading Location: [facility] [id number] Ortho Consult Reading Room Performing Organization Address City/State/Zipcode Phone Number [facility] Bone Marrow Exam (10/20/2018 10:30 AM CDT) Case Report Bone Marrow Pathology Report Case: [id number] [facility] Authorizing Provider:Tiff Colmenares MD Collected: 10/20/2018 1030 [facility] Ordering Location: [address] Received: 10/20/2018 1151 Service Pathologist: Damián Mckeon MD Specimens: A) - Iliac Crest, Left B) - C) - ADDENDUM Karyotype is reported to be 46,XX[20]. [facility] Mutational studies for calreticulin, JAK2, and MPL are reported to be NEGATIVE. [facility] See attached scanned report for further additional details. DIAGNOSIS BONE MARROW ASPIRATE, CLOT, AND DECALCIFIED BIOPSY: [facility] NORMOCELLULAR (60%) MARROW WITH TRILINEAGE HEMATOPOIESIS AND MILD ATYPICAL MEGAKARYOCYTIC HYPERPLASIA. [facility] NO MORPHOLOGIC OR IMMUNOPHENOTYPIC EVIDENCE OF LYMPHOMA OR ACUTE LEUKEMIA. BLASTS ARE NOT INCREASED. STORAGE IRON IS DECREASED. SEE DIAGNOSTIC COMMENT. PERIPHERAL BLOOD: NORMOCYTIC ANEMIA. NO CIRCULATING BLASTS. Signing Pathologist Direct Phone Line: [phone] COMMENT There is no morphologic or [facility] immunophenotypic evidence of [facility] lymphoma or acute leukemia. This patient has a reported clinical history of anemia and hepatosplenomegaly as per the electronic medical records in [facility]. The morphologic finding of the megakaryocytes is nonspecific and could be reactive however they raise concern for the presence of an evolving myeloid neoplasm. Molecular and cytogenetic studies are currently pending, with results to be issued in an addendum report. CPT Code(s) 61924; 91950; 74263 x 2; 99242; 98035, 54871, [id number] [facility] CLINICAL HISTORY Anemia [facility] SPECIMEN SOURCE Bone marrow [facility] GROSS DESCRIPTION The case is received in three parts all labeled with the patient's name, Jose Barbour, date of 1970, and accession number, [id number], which corresponds to the accompanying requisiti [facility] on page labeled with the same name and accession number. [facility] Part B. Received in formalin labeled with the patient's information only is a 2.0 x 1.0 x 1.0 cm blood clot. The specimen is bisected and submitted entirely in cassette B1. Part C. Received in formalin labeled with the patient's information only is a 2.1 cm long x 0.2 cm in diameter red-brown cylindrical portion of bone. The specimen is submitted in toto following decalcification cassette C1. Also received with the case is a blood smear labeled with the patient's name , date of and accession number. RP/ew MICROSCOPIC DESCRIPTION BONE MARROW ASPIRATE: [facility] QUALITY: [facility] Aspirate- Adequate Touch imprint- Adequate MARROW DIFFERENTIAL COUNT: Number of cells counted: 300 1% Blasts 1% Promyelocytes 23% Myelocytes/Metamyelocytes 29% Bands/Segmented granulocytes 2% Eosinophils and precursors 0% Basophils and precursors 38% Erythroid precursors 4% Lymphocytes 0% Monocytes 2% Plasma cells Myeloid: Erythroid Ratio: 1.5 Blasts: Not increased Erythropoiesis: Mild megaloblastoid changes. Myelopoiesis: Mild left shift Megakaryocytes: Increased, hypolobated and multinucleated forms. Stainable iron is focally identified on marrow particles present on the aspirate smear and appears to be decreased. Ring sideroblasts are not identified. BONE MARROW BIOPSY: Biopsy- Adequate Clot- Adequate The marrow core demonstrates a cellularity of approximately 60%. Megakaryocytes are increased and demonstrate areas of loose clustering. Immunohistochemical studies performed on the core biopsy (block C 1) demonstrate small mature CD20 positive B cells and CD3 positive T cells. Blasts are not increased by CD34. Plasma cells are polytypic for kappa and lambda immunostains. Stainable iron is focally identified on the clot section by the Perls iron special stain. PERIPHERAL BLOOD: Red cells: Mild anisopoikilocytosis with polychromasia White cells: Mild left shift. No circulating blasts Platelets: Unremarkable SPECIAL STUDIES The interpretation of this case included the use of immunohistochemistry or special stains. [facility] BLOCK B1- PERLS IRON [facility] BLOCK C1- CD20, CD3, CD34, KAPPA, LAMBDA Control Slides Examined: In-house known positive controls were evaluated along with the test tissue. These control slides run alongside of the patients sample show appropriate staining. Internal posit jessica and negative controls when available are evaluated Immunohistochemistry technical testing was performed at [facility] Pathology Laboratory where it was developed and its performance characteristics were determined. It has not be en cleared or approved by the U.S. Food and Drug Administration. The FDA has determined that such clearance or approval is not necessary. The test is used for clinical purposes. It should not be regarde d as investigational or for research. This laboratory is certified under the Clinical Laboratory Improvement Amendments of 1988 (CLIA-88) as qualified to perform high complexity clinical laboratory testing. Specimen Bone Marrow Narrative Performed At Performing Organization Address City/State/Zipcode Phone Number [facility] [address] [place] [address] CENTER Manual Differential (10/20/2018 5:15 AM CDT)Only the most recent of3 resultswithin the time period is included. % Neutros 60 % [facility] % Lymphs 31 % [facility] % Monos 3 % [facility] % Eos 4 % [facility] % Metamyelo 1 (H) 0 - 0 % [facility] % Bands 1 0 - 10 % [facility] # Neutros 3.36 1.56 - 6.13 K/ul [facility] # Lymphs 1.74 1.18 - 3.74 K/ul [facility] # Monos 0.17 (L) 0.24 - 0.36 K/uL [facility] # Eos 0.22 0.04 - 0.36 K/uL [facility] # Metamyelo 0.06 (H) 0.00 - 0.00 K/uL [facility] # Bands 0.06 0.00 - 0.80 K/uL [facility] Total Counted 100 [facility] nRBC (manual) 1 (H) 0 - 0 /100 WBC [facility] WBC Morphology Normal [facility] Platelet Morphology Normal [facility] Polychromasia 1+ few [facility] Anisocytosis 1+ few [facility] Artifact Present [facility] Platelet Conc Adequate [facility] Specimen Blood Narrative Performed At Received comment: [facility] User comments: Slide comments: Performing Organization Address City/State/Zipcode Phone Number [facility] [address] [place] [address] CENTER PT/aPTT (10/20/2018 5:15 AM CDT) Protime 13.0 11.9 - 14.2 seconds [facility] INR 1.0 <=5.9 [facility] PTT 32.3 22.5 - 36.0 seconds [facility] Specimen Blood Narrative Performed At Effective 09/13/2018: PT Reference Range [facility] Change New: 11.9-14.2Previous: 11.7-14.7 RECOMMENDED COUMADIN/WARFARIN INR THERAPY RANGES STANDARD DOSE: 2.0-3.0Includes: PROPHYLAXIS for venous thrombosis, systemic embolization; TREATMENT for venous thrombosis and/or pulmonary embolus. HIGH RISK: Target INR is 2.5-3.5 for patients wiht mechanical heart valves. Performing Organization Address City/[facility] Phone Number [address] [address] CENTER CBC with platelet count + automated diff (10/20/2018 5:15 AM CDT)Only the most recent of5 resultswithin the time period is included. WBC 5.6 3.5 - 10.5 K/L [facility] RBC 3.27 (L) 3.93 - 5.22 M/L [facility] Hemoglobin 9.5 (L) 11.2 - 15.7 GM/DL [facility] Hematocrit 29.8 (L) 34.1 - 44.9 % [facility] MCV 91.1 79.4 - 94.8 fL [facility] MCH 29.1 25.6 - 32.2 pg [facility] MCHC 31.9 (L) 32.2 - 35.5 GM/DL [facility] RDW 15.1 (H) 11.7 - 14.4 % [facility] Platelets 260 150 - 450 K/CU MM [facility] MPV 11.1 9.4 - 12.3 fL [facility] nRBC 0 0 - 0 /100 WBC [facility] Specimen Blood Performing Organization Address City/State/Zipcode Phone Number [facility] [address] [place] [address] [phone] CENTER Phosphorus (10/20/2018 5:15 AM CDT)Only the most recent of3 resultswithin the time period is included. Phosphorus 4.7Comment: Specimen slightly 2.3 - 4.7 mg/dL [facility] hemolyzed [facility] Specimen Blood Performing Organization Address City/[facility]/Zipcode Phone Number [address] [address] [phone] [place] TRANSFUSION SERVICE REPORT - SCAN (10/19/2018 5:50 PM CDT)Only the most recent of2 resultswithin the time period is included. Narrative Performed At Calcium, Ionized (10/19/2018 5:30 AM CDT)Only the most recent of3 resultswithin the time period is included. Calcium, Ion 1.07 (L) 1.12 - 1.27 mmol/L [facility] pH, Blood 7.41 [facility] Specimen Blood Performing Organization Address [facility] Phone Number [address] [address] [place] Prothrombin time/INR (10/19/2018 5:30 AM CDT)Only the most recent of4 resultswithin the time period is included. Protime 13.4 11.9 - 14.2 seconds [facility] INR 1.1 <=5.9 [facility] Specimen Blood Narrative Performed At Effective 09/13/2018: PT Reference Range [facility] Change New: 11.9-14.2Previous: 11.7-14.7 RECOMMENDED COUMADIN/WARFARIN INR THERAPY RANGES STANDARD DOSE: 2.0-3.0Includes: PROPHYLAXIS for venous thrombosis, systemic embolization; TREATMENT for venous thrombosis and/or pulmonary embolus. HIGH RISK: Target INR is 2.5-3.5 for patients wiht mechanical heart valves. Performing Organization Address City/State/Zipcode Phone Number [address] [address] [phone] [place] Uric acid (10/19/2018 5:30 AM CDT)Only the most recent of2 resultswithin the time period is included. Uric Acid 9.8 (H)Comment: Specimen 2.6 - 7.2 mg/dL [facility] hemolyzed [facility] Specimen Blood Performing Organization Address City/State/Zipcode Phone Number [facility] [address] [place] [address] [phone] CENTER B-type Natriuretic Factor (BNP) (10/19/2018 5:30 AM CDT) BNP 162 (H) 0 - 100 pg/mL [facility] Specimen Blood Performing Organization Address City/[facility]/Zipcode Phone Number [facility] [address] [place] [address] [phone] CENTER Comprehensive metabolic panel (10/19/2018 5:30 AM CDT)Only the most recent of2 resultswithin the time period is included. Protein, Total 8.2Comment: Specimen 6.0 - 8.3 gm/dL [facility] slightly hemolyzed [facility] Albumin 3.6Comment: Specimen 3.5 - 5.0 g/dL [facility] slightly hemolyzed [facility] Alkaline Phosphatase 72 40 - 150 U/L [facility] Total Bilirubin 0.5Comment: Specimen 0.2 - 1.2 mg/dL [facility] slightly hemolyzed [facility] Sodium 135 (L) 136 - 145 meq/L [facility] Potassium 4.2Comment: Specimen 3.5 - 5.1 meq/L [facility] slightly hemolyzed [facility] Chloride 97 (L) 98 - 107 meq/L [facility] CO2 27 22 - 29 meq/L [facility] BUN 60 (H) 7 - 21 mg/dL [facility] Creatinine 2.79 (H)Comment: 0.57 - 1.25 mg/dL [facility] Specimen [facility] hemolyzed Glucose 171 (H) 70 - 105 mg/dL [facility] Calcium 9.5 8.4 - 10.2 mg/dL [facility] AST 152 (H)Comment: Specimen 5 - 34 U/L [facility] slightly hemolyzed [facility] ALT 532 (H)Comment: Specimen 6 - 55 U/L [facility] slightly hemolyzed [facility] EGFR 18Comment: ESTIMATED GFR mL/min/1.73 sq m [facility] IS NOT ACCURATE [facility] CREATININE CLEARANCE IN PREDICTING GLOMERULAR FILTRATION RATE. ESTIMATED GFR IS NOT APPLICABLE FOR DIALYSIS PATIENTS. Specimen Blood Performing Organization Address City/State/Zipcode Phone Number [facility] [address] [place] [address] CENTER Prepare Leuko-Red RBC (10/18/2018 11:54 PM CDT) CROSSMATCH COMPATIBLE SAFETRACE TX Unit ABO A Pos [facility] TX UNIT NUMBER [id number] [place] TX Status TX_TIMEINCHART [facility]AFET[facility]ACE TX Blood Bank Product RED BLOOD CELLS [facility] TX PRODUCT CODE [id number] [place] Specimen Other Performing Organization Address City/State/[facility] Phone Number SAFETRACE TX CT chest without IV contrast (10/18/2018 3:23 PM CDT) Specimen Narrative Performed At FINAL REPORT [facility] CT Chest, abdomen, and pelvis without contrast History: shortness of breath Comparison: none Technique: serial axial imaging was performed without intravenous contrast as per departmental protocol.Multiplanar images are reconstructed and reviewed when indicated. This CT examination is performed using one or more of the following dose reduction techniques: Automated exposure control, adjustment of the mA and /or kV according to patient size, and/or use of iterative reconstruction technique. Findings: No mediastinal lymphadenopathy. No definite hilar enlargement. Normal size heart.No pericardial effusion. No thoracic aortic aneurysm.Normal caliber of main pulmonary trunk. Patent central airways.No pneumothorax. Trace bilateral pleural effusions, right greater than left.Mild bilateral lower lobe dependent atelectasis. The lungs are otherwise clear. Grossly unremarkable appearance of unenhanced liver, pancreas, spleen, and adrenal glands. The patient is status post cholecystectomy. No urinary calculus.No hydronephrosis.No apparent bladder wall thickening.A small focus of air within the bladder likely reflects recent instrumentation. Previous hysterectomy. No small or large bowel obstruction.No apparent bowel wall thickening.No findings to indicate acute appendicitis. A small amount of free fluid is seen within the pelvic cul-de-sac, nonspecific. No lymphadenopathy is appreciated. No aggressive osseous lesion. Impression: 1. Technically limited study due to lack of oral or intravenous contrast. 2. Trace bilateral pleural effusions, right greater than left. 3. Previous cholecystectomy and hysterectomy. 4. A small amount of free fluid is seen within the pelvic cul-de-sac, nonspecific. Signed: Mani Morel MD Report Verified Date/Time:10/18/2018 16:31:25 Reading Location: [facility] Radiology Reading Room Procedure Note Interface, External Ris In - 10/18/2018 4:33 PM CDT FINAL REPORT CT Chest, abdomen, and pelvis without contrast History: shortness of breath Comparison: none Technique: serial axial imaging was performed without intravenous contrast as per departmental protocol. Multiplanar images are reconstructed and reviewed when indicated. This CT examination is performed using one or more of the following dose reduction techniques: Automated exposure control, adjustment of the mA and /or kV according to patient size, and/or use of iterative reconstruction technique. Findings: No mediastinal lymphadenopathy. No definite hilar enlargement. Normal size heart. No pericardial effusion. No thoracic aortic aneurysm. Normal caliber of main pulmonary trunk. Patent central airways. No pneumothorax. Trace bilateral pleural effusions, right greater than left. Mild bilateral lower lobe dependent atelectasis. The lungs are otherwise clear. Grossly unremarkable appearance of unenhanced liver, pancreas, spleen, and adrenal glands. The patient is status post cholecystectomy. No urinary calculus. No hydronephrosis. No apparent bladder wall thickening. A small focus of air within the bladder likely reflects recent instrumentation. Previous hysterectomy. No small or large bowel obstruction. No apparent bowel wall thickening. No findings to indicate acute appendicitis. A small amount of free fluid is seen within the pelvic cul-de-sac, nonspecific. No lymphadenopathy is appreciated. No aggressive osseous lesion. Impression: 1. Technically limited study due to lack of oral or intravenous contrast. 2. Trace bilateral pleural effusions, right greater than left. 3. Previous cholecystectomy and hysterectomy. 4. A small amount of free fluid is seen within the pelvic cul-de-sac, nonspecific. Signed: Mani Morel MD Report Verified Date/Time: 10/18/2018 16:31:25 Reading Location: [facility] Radiology Reading Room Performing Organization Address City/State/Zipcode Phone Number [facility] CT abdomen/pelvis without iv contrast (10/18/2018 3:23 PM CDT) Specimen Narrative Performed At FINAL REPORT [facility] [facility] CT Chest, abdomen, and pelvis without contrast History: shortness of breath Comparison: none Technique: serial axial imaging was performed without intravenous contrast as per departmental protocol.Multiplanar images are reconstructed and reviewed when indicated. This CT examination is performed using one or more of the following dose reduction techniques: Automated exposure control, adjustment of the mA and /or kV according to patient size, and/or use of iterative reconstruction technique. Findings: No mediastinal lymphadenopathy. No definite hilar enlargement. Normal size heart.No pericardial effusion. No thoracic aortic aneurysm.Normal caliber of main pulmonary trunk. Patent central airways.No pneumothorax. Trace bilateral pleural effusions, right greater than left.Mild bilateral lower lobe dependent atelectasis. The lungs are otherwise clear. Grossly unremarkable appearance of unenhanced liver, pancreas, spleen, and adrenal glands. The patient is status post cholecystectomy. No urinary calculus.No hydronephrosis.No apparent bladder wall thickening.A small focus of air within the bladder likely reflects recent instrumentation. Previous hysterectomy. No small or large bowel obstruction.No apparent bowel wall thickening.No findings to indicate acute appendicitis. A small amount of free fluid is seen within the pelvic cul-de-sac, nonspecific. No lymphadenopathy is appreciated. No aggressive osseous lesion. Impression: 1. Technically limited study due to lack of oral or intravenous contrast. 2. Trace bilateral pleural effusions, right greater than left. 3. Previous cholecystectomy and hysterectomy. 4. A small amount of free fluid is seen within the pelvic cul-de-sac, nonspecific. Signed: Mani Morel MD Report Verified Date/Time:10/18/2018 16:31:25 Reading Location: [facility] Radiology Reading Room Procedure Note Interface, External Ris In - 10/18/2018 4:33 PM CDT FINAL REPORT CT Chest, abdomen, and pelvis without contrast History: shortness of breath Comparison: none Technique: serial axial imaging was performed without intravenous contrast as per departmental protocol. Multiplanar images are reconstructed and reviewed when indicated. This CT examination is performed using one or more of the following dose reduction techniques: Automated exposure control, adjustment of the mA and /or kV according to patient size, and/or use of iterative reconstruction technique. Findings: No mediastinal lymphadenopathy. No definite hilar enlargement. Normal size heart. No pericardial effusion. No thoracic aortic aneurysm. Normal caliber of main pulmonary trunk. Patent central airways. No pneumothorax. Trace bilateral pleural effusions, right greater than left. Mild bilateral lower lobe dependent atelectasis. The lungs are otherwise clear. Grossly unremarkable appearance of unenhanced liver, pancreas, spleen, and adrenal glands. The patient is status post cholecystectomy. No urinary calculus. No hydronephrosis. No apparent bladder wall thickening. A small focus of air within the bladder likely reflects recent instrumentation. Previous hysterectomy. No small or large bowel obstruction. No apparent bowel wall thickening. No findings to indicate acute appendicitis. A small amount of free fluid is seen within the pelvic cul-de-sac, nonspecific. No lymphadenopathy is appreciated. No aggressive osseous lesion. Impression: 1. Technically limited study due to lack of oral or intravenous contrast. 2. Trace bilateral pleural effusions, right greater than left. 3. Previous cholecystectomy and hysterectomy. 4. A small amount of free fluid is seen within the pelvic cul-de-sac, nonspecific. Signed: Mani Moerl MD Report Verified Date/Time: 10/18/2018 16:31:25 Reading Location: [facility] Radiology Reading Room Performing Organization Address City/State/Zipcode Phone Number [facility] Respiratory Panel [facility] (10/18/2018 12:37 PM CDT) Human Metapneumovirus Not detected Not detected, [facility] Rhinovirus Not detected Not detected, [facility] Influenza A Not detected Not detected, [facility] INFLUENZA A (NO SUBTYPE) Not detected, [facility] Influenza A subtype H1 Not detected, [facility] Influenza A Subtype H3 Not detected, [facility] Influenza A Subtype H1-2009 Not detected, [facility] Influenza B Not detected Not detected, [facility] Respiratory Syncytial Virus Not detected Not detected, [facility] Parainfluenza Virus 1 Not detected Not detected, [facility] Parainfluenza Virus 2 Not detected Not detected, [facility] Parainfluenza virus 3 Not detected Not detected, [facility] Parainfluenza Virus 4 Not detected Not detected, [facility] Adenovirus Not detected Not detected, [facility] Coronavirus 229E Not detected Not detected, [facility] Coronavirus HKU1 Not detected Not detected, [facility] Coronavirus NL63 Not detected Not detected, [facility] Coronavirus OC43 Not detected Not detected, [facility] Bordetella Pertussis Not detected Not detected, [facility] Chlamydophila Pneumoniae Not detected Not detected, [facility] Mycoplasma Pneumoniae Not detected Not detected, [facility] Specimen Nasopharyngeal Narrative Performed At Other viruses and bacteria not targeted by [facility] this PCR panel cannot be excluded; therefore clinical correlation and follow up of serology, culture results, and other molecular studies is required. The results are not intended to be used as the sole means for clinical diagnosis or patient management decisions. This sample was tested at the [facility] Molecular Diagnostics Laboratory using the [facility] FilmArray Respiratory Panel. It is FDA cleared and has been verified and approved by the [facility] Molecular Diagnostics Laboratory for clinical use on nasopharyngeal swab specimens. The performance of the FilmArray RP has not been established in individuals who received influenza vaccine.Recent administration of a nasal influenza vaccine may cause false positive results for Influenza A and/or Influenza B. Performing Organization Address [facility]/Zipcode Phone Number [address] [phone] [place] Rapid Influenza A&B Screen (10/18/2018 12:37 PM CDT) Rapid Influenza A Antigen Negative Negative, Inconclusive [facility] Rapid influenza B Antigen Negative Negative, Inconclusive [facility] Specimen Nasal Performing Organization Address [facility] Phone Number [address] [address] [place] [id number] PHENOTYP (10/18/2018 12:07 PM CDT) Specimen Blood Narrative Performed At D-dimer (10/18/2018 12:07 PM CDT) D-Dimer, Quant 13.12 (H) <0.50 MG/L FEU [facility] Specimen Blood Narrative Performed At Intended Use: The D-Dimer Assay can be used [facility] to aid in the diagnosis of Deep Vein Thrombosis (DVT) and Pulmonary Embolism Disease (PED). In patients with low pre-test probability, various studies concerning STA Liatest D-dimer test have reported that with a cutoff value of 0.50 MG/L FEU, the Negative Predictive Value (NPV) regarding the exclusion of thrombosis is within 95-100% range. Performing Organization Address [facility] Phone Number [address] [address] [phone] [place] EBV Viral Load (10/18/2018 12:06 PM CDT) EBV Viral Load Negative or below the linear [facility] range of the assay (<500 [facility] copies/mL) Specimen Blood Narrative Performed At This assay was performed by real-time PCR for [facility] the detection of the Adria-Pozo virus (EBV) gene EBNA-1.The test is composed of (1) DNA extraction from patient specimen, and (2) real-time PCR amplification and detection with [id number] primers and probes. A well-conserved region of the EBNA-1 gene is targeted, along with an internal control sequence used to confirm PCR amplification. Asymptomatic carriers and viral genetic variation, among other factors, can affect the accuracy of nucleic acid testing; therefore, results should be interpreted in light of clinical data. This test was developed and its performance characteristics determined by the [facility] Pathology Department, Section of Molecular Pathology. It has not been cleared or approved by the U.S. Food and Drug Administration (FDA), since FDA approval is not required for clinical use of the test. Validation was done as required by The Clinical Laboratory Improvement Amendments of 1988. Performing Organization Address City/State/Zipcode Phone Number [address] [address] [place] HIV-1 Antigen with HIV-1/2 Antibody (10/18/2018 12:06 PM CDT) HIV-1 Antigen with HIV 1&2 Nonreactive Nonreactive [facility] Antibody [facility] Specimen Blood Performing Organization Address City/[facility] Phone Number [address] [address] [phone] [place] CMV PCR, quantitative (10/18/2018 12:06 PM CDT) CMV DNA Viral Load Negative or below the linear [facility] range of the assay (<375 [facility] copies/mL) Specimen Blood Narrative Performed At Cytomegalovirus (CMV) infection can cause [facility] significant disease in immunosuppressed patients. However, it is common for CMV to manifest as a limited infection which is of no clinical significance in immunosuppressed patients or in healthy individuals. Viral load measurements are helpful to identify clinical CMV infection and to guide the pre-emptive management of antiviral therapy.For treatment of CMV infection due to reactivation in transplant recipients, a threshold between 4,000 and 5,000 copies/mL is suggested.For treatment of primary CMV infection, a lower threshold can be used. CMV infection may also be monitored using weekly serial measurements. Serial measurements of CMV DNA viral load can be evaluated by identifying a 10-fold change, as well as assessing the CMV DNA viral load and the clinical context for each patient. The plasma CMV DNA viral load was detected using quantitative polymerase chain reaction and fluorescent monitoring of a specific hybridized probe. Genetic variation and other factors can affect the accuracy of nucleic acid testing. Therefore, the results should be interpreted in light of clinical data. A negative result may not exclude the presence of CMV disease. This test was developed and its performance characteristics determined by the [facility] Pathology Department, Section of Molecular Pathology. It has not been cleared or approved by the U.S. Food and Drug Administration (FDA), since FDA approval is not required for clinical use of the test. Validation was done as required by The Clinical Laboratory Improvement Amendments of 1988. Performing Organization Address [facility]/Zipcode Phone Number [address] [address] [place] Rheumatoid factor Ab, reflex to titer (10/18/2018 12:06 PM CDT) Rheumatoid Factor Negative [facility] Specimen Blood Performing Organization Address City/[facility]/Zipcode Phone Number [facility] [address] [place] [address] CENTER Protein electrophoresis, serum (10/18/2018 12:06 PM CDT) Albumin Fraction 3.0 (L) 3.5 - 5.5 g/dL [facility] Alpha 1 Fraction 0.4 0.2 - 0.4 g/dL [facility] Alpha 2 Fraction 1.2 (H) 0.5 - 0.9 g/dL [facility] Beta Fraction 0.8 0.6 - 1.1 g/dL [facility] Gamma Globulin Fraction 2.2 (H) 0.7 - 1.7 g/dL [facility] Interpretation Total protein and [facility] albumin decreased. [facility] Alpha-1 and alpha-2 globulin percentages increased. Gamma increased in a diffuse fashion. This indicates an acute phase response and concomitant chronic immune or inflammatory response. Pathologist: Armani To M.D. [facility] (electonic signature) [facility] Protein, Total 7.6 6.0 - 8.3 gm/dL [facility] Specimen Blood Performing Organization Address [facility] Phone Number [address] [address] [place] Haptoglobin (10/18/2018 12:06 PM CDT) Haptoglobin 301 (H) 14 - 258 mg/dL [facility] Specimen Blood Performing Organization Address [facility] Phone Number [address] [address] [place] ANGELES Titer & Pattern (10/18/2018 9:43 AM CDT) ANGELES Titer 1:160 [facility] ANGELES Pattern Nucleolar [facility] Specimen Blood Performing Organization Address [facility] Phone Number [address] [address] [phone] [place] Anti-Nuclear Antibody (ANGELES) (10/18/2018 9:43 AM CDT) ANGELES Positive (A) Negative [facility] Specimen Blood Narrative Performed At Test performed by IFA method. [facility] Performing Organization Address [facility] Phone Number [address] [address] [place] Tissue Transglutaminase Abs,IgG and IgA (10/18/2018 9:42 AM CDT) (tTG) Ab, IgG 30 (H) U/mL [facility] Comment: <6 No Antibody Detected > OR=6 Antibody Detected (tTG) Ab, IgA <1 U/mL [facility] Comment: <4 No Antibody Detected > OR=4 Antibody Detected Specimen Blood Narrative Performed At Performing Lab [facility] [address] [place] [address] Mauro Prater MD, PhD, NICOLE Performing Organization Address [facility] [place] [address] [place] [address] Anti-Mitochondrial Ab, reflex to titer (10/18/2018 9:42 AM CDT) Anti-Mitochond Abs NEGATIVE NEGATIVE [facility] Comment: INCORPORATED This test was developed and its analytical performance characteristics have been determined by [facility]. It has not been cleared or approved by FDA. This assay has been validated pursuant to the CLIA regulations and is used for clinical purposes. Mitochondrial Ab Titer TNP <1:20 [facility] Comment: INCORPORATED Test Not Performed. Screening test Negative or Not Detected. Titer not performed. Specimen Blood Narrative Performed At Performing Lab [facility] [address] [address] Mauro Prater MD, PhD, NICOLE Performing Organization Address [facility] [place] [address] [place] [address] Iron, TIBC, % sat. (without ferritin) (10/18/2018 9:42 AM CDT)Only the most recent of2 resultswithin the time period is included. Iron 42.0 40.0 - 160.0 ug/dL [facility] TIBC 264 250 - 450 ug/dL [facility] Iron % Saturation 16 (L) 20 - 55 % [facility] Specimen Blood Performing Organization Address [facility] Phone Number [facility] [address] [place] [address] CENTER Actin (Smooth Muscle) Antibody, IgG (10/18/2018 9:42 AM CDT) Anti-Smooth Muscle Ab <20 See Note: U [facility] Comment: INCORPORATED Reference Range: <20 NEGATIVE > OR=20 POSITIVE Antibodies recognizing actin are the main component of smooth muscle antibodies associated with autoimmune liver disease. Actin antibodies are found in approximately 75% of patients with autoimmune hepatitis (AIH) type 1, approximately 65% of patients with autoimmune cholangitis, approximately 30% of patients with primary biliary cirrhosis, and approximately 2% of healthy people. High values are closely correlated with AIH type 1. Specimen Blood Narrative Performed At Performing Lab [facility] [address] [place] [address] Mauro Prater MD, PhD, NICOLE Performing Organization Address [facility] Phone Number [facility] [place] [address] INCORPORATED [address] [employer] [facility] Ceruloplasmin (10/18/2018 9:42 AM CDT) Ceruloplasmin 48 18 - 53 mg/dL [facility] Comment: Adults:Males: 18-36 mg/dL Females: 18-53 mg/dL Pediatrics:Males (mg/dL)Females (mg/dL) 0-30 Days 8-25 3-28 31 Days-11 Month 15-4815-43 1-3 [id number] 4-6 [id number] 7-9 Siftx11-8790-29 10-12 [id number] 13-15 [id number] 16-18 [id number] The pediatric ranges are derived from the following criteria: Miladis SJ, Afua JM, Pina J et al Pediatric reference ranges for Lbfg-7-Oplbkyrjxphda and ceruloplasmin. Clin. Chem 1997; 43:S1999 Pediatric Reference Ranges, 2nd., SF Miladiset al. editors. [employer], [place], [place] 1997. Specimen Blood Narrative Performed At Performing Lab [facility] *SPL [facility] [employer] [place], [address] [place] [phone] Kendy Lees MD, PhD Performing Organization Address [facility] Phone Number [employer] [place] [address] INCORPORATED [address] [employer] [facility] Alpha fetoprotein (AFP), tumor marker (10/18/2018 9:42 AM CDT) Alpha-Fetoprotein <2.0 <10.0 ng/mL [facility] Specimen Blood Performing Organization Address [facility] Phone Number [address] [address] [phone] [place] Eosinophil smear (10/18/2018 5:42 AM CDT) Eosinophil Smear Rare EOS=less than 5% WBCs No EOS seen [facility] seen are EOS (A) MEDICAL CENTER Specimen Urine Performing Organization Address [facility] Phone Number [address] [address] [phone] [place] Reticulocyte count (10/18/2018 5:42 AM CDT) % Retic 4.3 (H) 0.5 - 1.7 % [facility] Specimen Blood Performing Organization Address [facility] Phone Number [address] [address] [place] Triglycerides (10/18/2018 5:42 AM CDT) Triglycerides 299 mg/dL [facility] Specimen Blood Narrative Performed At TRIGLYCERIDE REFERENCE RANGE [facility] Low Risk<150 Borderline Risk 150-199 High [id number] Very High Risk >=500 Performing Organization Address [facility] Phone Number [address] [address] [place] ECHOCARDIOGRAM REPORT - SCAN (10/17/2018 9:11 PM CDT) Narrative Performed At XR chest 1 view portable / bedside (10/17/2018 6:00 PM CDT) Specimen Narrative Performed At FINAL REPORT [facility] Clinical History: SOB. Comparison Study: None Findings:The cardiac silhouette is enlarged. Pulmonary venous congestion is seen. The lungs are within normal limits.The pleural spaces are clear.There is no pneumothorax. No significant bony or soft tissue abnormalities are seen. Impression: Cardiomegaly with some pulmonary venous congestion. Signed: Long Shepherd MD Report Verified Date/Time:10/17/2018 19:11:02 Reading Location: [facility] [id number] Consult Reading Room Procedure Note Interface, External Ris In - 10/17/2018 7:13 PM CDT FINAL REPORT Clinical History: SOB. Comparison Study: None Findings: The cardiac silhouette is enlarged. Pulmonary venous congestion is seen. The lungs are within normal limits. The pleural spaces are clear. There is no pneumothorax. No significant bony or soft tissue abnormalities are seen. Impression: Cardiomegaly with some pulmonary venous congestion. Signed: Long Shepherd MD Report Verified Date/Time: 10/17/2018 19:11:02 Reading Location: [facility] B1 C013W Consult Reading Room Performing Organization Address City/State/Zipcode Phone Number [facility] Hereditary Hemochromatosis DNA (10/17/2018 4:13 PM CDT) DNA Mutation Analysis see note [facility] Comment: INCORPORATED DNA MUTATION ANALYSIS RESULT: NEGATIVE INTERPRETATION: DNA testing indicates that this individual is negative for the C282Y and H63D mutations in the HFE gene.This negative result significantly reduces the likelihood of hereditary hemochromatosis (HH) in this individual.However, it does not rule out the presence of other mutations within the HFE gene or a diagnosis of HH.The risk of this individual carrying a HFE mutation other than those tested in this assay depends greatly on family and clinical history as well as ethnicity.This assay does not test for other primary or secondary iron overload disorders. Lydia Wall, Ph.D., [facility] Director, Molecular Genetics Hereditary hemochromatosis (HH) is an autosomal recessive disorder of iron metabolism that results in iron overload and potential organ failure.It is one of the most common genetic disorders in individuals of - ancestry, with an estimated carrier frequency of 10%.HH is caused by mutations in the HFE gene.Most individuals with HH (60-90%) are homozygous for the C282Y mutation.A smaller percentage of affected individuals are either compound heterozygous for the C282Y and H63D mutations (3%-8%), or homozygous for the H63D mutation (approximately 1%). This assay detects the two mutations in the HFE gene, C282Y ([id number]: c.845G>A) and H63D ([id number]: c. 187C>G), that are commonly associated with HH.The mutations are detected by multiplex-polymerase chain reaction (PCR) amplification, followed by digestion of the amplification products with the restriction enzymes Rsal and NlaIII, for the detection of the C282Y and H63D mutations respectively.Fluorescent-labeled restriction fragments are detected by capillary electrophoresis. This assay does not detect other mutations in the HFE gene that can cause HH.Since genetic variation and other factors can affect the accuracy of direct mutation testing, these results should be interpreted in light of clinical and familial data. For assistance with interpretation of these results, please contact your local [facility] genetic counselor or call [phone] ([phone]). This test was developed and its analytical performance characteristics have been determined by [facility] [place]. It has not been cleared or approved by the FDA. This assay has been validated pursuant to the CLIA regulations and is used for clinical purposes. For more information on this test, go to http://education.Alg[employer]olve/faq/hemochromatos Specimen Blood Narrative Performed At Performing Lab [facility] [address] [facility] [place], [address] [facility] [place] [address] Hien John MD, PhD Performing Organization Address City/[facility]/Zipcode [place] [address] INCORPORATED [address] [facility] Fibrinogen (10/17/2018 4:13 PM CDT) Fibrinogen 439 (H) 225 - 434 mg/dl [facility] Specimen Blood Performing Organization Address City/State/Zipcode Phone Number [facility] [address] [place] [address] [phone] CENTER Transfuse Leuko-Red RBC (10/17/2018 3:56 PM CDT)Only the most recent of2 resultswithin the time period is included.NM lung scan (V/Q) (10/17/2018 10:19 AM CDT) Specimen Narrative Performed At FINAL REPORT [facility] PROCEDURE: V/Q LUNG SCAN CPT CODE:37928 INDICATION:Acute chest pain pulmonary origin PROTOCOL:10.8 mCi ofXe-133 gas was administered by inhalation. Rebreathing/washout images were obtained in the anterior and the posterior projections.4.3 mCi of Tc-99m MAA was then injected intravenously, and static perfusion images were obtained in multiple projections. FINDINGS: Ventilation: Initial tracer distribution is physiological. Washout proceeds normally. During the washout phase the liver is seen. Perfusion:Tracer distribution is physiological. IMPRESSION: Normal ventilation/perfusion lung scan. Hepatic activity during the radio xenon phase is suggestive of a fatty liver. Signed: Alvino Miranda MD Report Verified Date/Time:10/17/2018 10:48:21 Reading Location: [address] [facility] Reading Room Procedure Note Interface, External [facility] In - 10/17/2018 10:50 AM CDT FINAL REPORT PROCEDURE: V/Q LUNG SCAN CPT CODE: 15304 INDICATION: Acute chest pain pulmonary origin PROTOCOL: 10.8 mCi of Xe-133 gas was administered by inhalation. Rebreathing/washout images were obtained in the anterior and the posterior projections. 4.3 mCi of Tc-99m MAA was then injected intravenously, and static perfusion images were obtained in multiple projections. FINDINGS: Ventilation: Initial tracer distribution is physiological. Washout proceeds normally. During the washout phase the liver is seen. Perfusion: Tracer distribution is physiological. IMPRESSION: Normal ventilation/perfusion lung scan. Hepatic activity during the radio xenon phase is suggestive of a fatty liver. Signed: Alvino Miranda MD Report Verified Date/Time: 10/17/2018 10:48:21 Reading Location: [address] [facility] Reading Room Performing Organization Address City/State/Zipcode Phone Number [facility] chriss CHAUHAN (10/17/2018 8:28 AM CDT) ABO [facility] Rh Factor [facility] ABO Grouping A [facility] Rh Factor POS [facility] Specimen Blood Performing Organization Address City/State/Zipcode Phone Number [facility] [address] [place] [address] Type and screen, automated (10/17/2018 8:06 AM CDT) ABO/RH AUTOMATED (BEAKER) A POSITIVE [facility] Ab Scrn NEGATIVE [facility] Specimen Blood Performing Organization Address City/State/Zipcode Phone Number [facility] [address] [place] [address] [phone] US abdominal with doppler (10/17/2018 7:37 AM CDT) Specimen Narrative Performed At FINAL REPORT [facility] Abdominal and pelvic ultrasound dated 10/17/2018 Clinical information: elevated transaminases Comment:Real-time transabdominal ultrasound was performed. Liver is enlarged and measures 21.9 cm in length. The echogenicity of the liver is normal.No focal lesion is noted in the liver.Spleen is enlarged measuring 15.1 cm. Gallbladder is surgically absent. No biliary dilatation is seen. Common bile duct measures 4 mm in diameter.Main portal vein measures 13 mm in diameter. Pancreas is suboptimally visualized. Right kidney measures 11.8 x 4.1 x 5.5 cm.Left kidney measures 12.0 x 4.9 x 4.6 cm.Echogenicity of both kidney is increased.No hydronephrosis or solid mass seen in either kidney.No cystis seen in the either kidney. The urinary bladder measures 409 cc. Postvoid bladder measures 173 cc. No ascites present in the abdomen. Abdominal aorta is normal in caliber. The IVC is patent. Real-time Color and Spectral doppler ultrasound of the abdomen was performed. Main portal vein measures 1.3 cm in diameter. There is hepatopedal flow in the main portal vein with velocity 24 cm/sec.Right and left portal veins are patent. Proper hepatic artery, right hepatic artery, and left hepatic artery are patent with resistive indices 0.8, 0.7, and 0.7 respectively. IVC, Hepatic venous confluence, right HV, middle HV and left HV are patent. No mass or adenopathy is seen in the pelvis. Impression: 1. Hepatosplenomegaly. 2. Suboptimal visualization of the pancreas secondary to overlying gas. 3. Echogenic kidneys suggestive of medical renal disease. 4. Unremarkable pelvic ultrasound. 5. Normal Doppler of the abdomen. Signed: Leobardo Ayoub MD Report Verified Date/Time:10/17/2018 10:02:56 Reading Location: [address] Radiology Reading Room Procedure Note Interface, External Ris In - 10/17/2018 10:05 AM CDT FINAL REPORT Abdominal and pelvic ultrasound dated 10/17/2018 Clinical information: elevated transaminases Comment: Real-time transabdominal ultrasound was performed. Liver is enlarged and measures 21.9 cm in length. The echogenicity of the liver is normal. No focal lesion is noted in the liver. Spleen is enlarged measuring 15.1 cm. Gallbladder is surgically absent. No biliary dilatation is seen. Common bile duct measures 4 mm in diameter. Main portal vein measures 13 mm in diameter. Pancreas is suboptimally visualized. Right kidney measures 11.8 x 4.1 x 5.5 cm. Left kidney measures 12.0 x 4.9 x 4.6 cm. Echogenicity of both kidney is increased. No hydronephrosis or solid mass seen in either kidney. No cyst is seen in the either kidney. The urinary bladder measures 409 cc. Postvoid bladder measures 173 cc. No ascites present in the abdomen. Abdominal aorta is normal in caliber. The IVC is patent. Real-time Color and Spectral doppler ultrasound of the abdomen was performed. Main portal vein measures 1.3 cm in diameter. There is hepatopedal flow in the main portal vein with velocity 24 cm/sec. Right and left portal veins are patent. Proper hepatic artery, right hepatic artery, and left hepatic artery are patent with resistive indices 0.8, 0.7, and 0.7 respectively. IVC, Hepatic venous confluence, right HV, middle HV and left HV are patent. No mass or adenopathy is seen in the pelvis. Impression: 1. Hepatosplenomegaly. 2. Suboptimal visualization of the pancreas secondary to overlying gas. 3. Echogenic kidneys suggestive of medical renal disease. 4. Unremarkable pelvic ultrasound. 5. Normal Doppler of the abdomen. Signed: Leobardo Ayoub MD Report Verified Date/Time: 10/17/2018 10:02:56 Reading Location: [address] Radiology Reading Room Performing Organization Address City/State/Zipcode Phone Number [facility] US pelvis limited (10/17/2018 7:37 AM CDT) Specimen Narrative Performed At FINAL REPORT [facility] Abdominal and pelvic ultrasound dated 10/17/2018 Clinical information: elevated transaminases Comment:Real-time transabdominal ultrasound was performed. Liver is enlarged and measures 21.9 cm in length. The echogenicity of the liver is normal.No focal lesion is noted in the liver.Spleen is enlarged measuring 15.1 cm. Gallbladder is surgically absent. No biliary dilatation is seen. Common bile duct measures 4 mm in diameter.Main portal vein measures 13 mm in diameter. Pancreas is suboptimally visualized. Right kidney measures 11.8 x 4.1 x 5.5 cm.Left kidney measures 12.0 x 4.9 x 4.6 cm.Echogenicity of both kidney is increased.No hydronephrosis or solid mass seen in either kidney.No cystis seen in the either kidney. The urinary bladder measures 409 cc. Postvoid bladder measures 173 cc. No ascites present in the abdomen. Abdominal aorta is normal in caliber. The IVC is patent. Real-time Color and Spectral doppler ultrasound of the abdomen was performed. Main portal vein measures 1.3 cm in diameter. There is hepatopedal flow in the main portal vein with velocity 24 cm/sec.Right and left portal veins are patent. Proper hepatic artery, right hepatic artery, and left hepatic artery are patent with resistive indices 0.8, 0.7, and 0.7 respectively. IVC, Hepatic venous confluence, right HV, middle HV and left HV are patent. No mass or adenopathy is seen in the pelvis. Impression: 1. Hepatosplenomegaly. 2. Suboptimal visualization of the pancreas secondary to overlying gas. 3. Echogenic kidneys suggestive of medical renal disease. 4. Unremarkable pelvic ultrasound. 5. Normal Doppler of the abdomen. Signed: Leobardo Ayoub MD Report Verified Date/Time:10/17/2018 10:02:56 Reading Location: [address] Radiology Reading Room Procedure Note Interface, External Ris In - 10/17/2018 10:05 AM CDT FINAL REPORT Abdominal and pelvic ultrasound dated 10/17/2018 Clinical information: elevated transaminases Comment: Real-time transabdominal ultrasound was performed. Liver is enlarged and measures 21.9 cm in length. The echogenicity of the liver is normal. No focal lesion is noted in the liver. Spleen is enlarged measuring 15.1 cm. Gallbladder is surgically absent. No biliary dilatation is seen. Common bile duct measures 4 mm in diameter. Main portal vein measures 13 mm in diameter. Pancreas is suboptimally visualized. Right kidney measures 11.8 x 4.1 x 5.5 cm. Left kidney measures 12.0 x 4.9 x 4.6 cm. Echogenicity of both kidney is increased. No hydronephrosis or solid mass seen in either kidney. No cyst is seen in the either kidney. The urinary bladder measures 409 cc. Postvoid bladder measures 173 cc. No ascites present in the abdomen. Abdominal aorta is normal in caliber. The IVC is patent. Real-time Color and Spectral doppler ultrasound of the abdomen was performed. Main portal vein measures 1.3 cm in diameter. There is hepatopedal flow in the main portal vein with velocity 24 cm/sec. Right and left portal veins are patent. Proper hepatic artery, right hepatic artery, and left hepatic artery are patent with resistive indices 0.8, 0.7, and 0.7 respectively. IVC, Hepatic venous confluence, right HV, middle HV and left HV are patent. No mass or adenopathy is seen in the pelvis. Impression: 1. Hepatosplenomegaly. 2. Suboptimal visualization of the pancreas secondary to overlying gas. 3. Echogenic kidneys suggestive of medical renal disease. 4. Unremarkable pelvic ultrasound. 5. Normal Doppler of the abdomen. Signed: Leobardo Ayoub MD Report Verified Date/Time: 10/17/2018 10:02:56 Reading Location: [address] Radiology Reading Room Performing Organization Address City/State/Zipcode Phone Number [facility] Vitamin B12 and Folate (10/17/2018 5:17 AM CDT) Vitamin B12 >2000 (H) 213 - 816 pg/mL [facility] Folate 13.3 >=7.0 ng/mL [facility] Specimen Blood Performing Organization Address City/[facility]/Zipcode Phone Number [address] [address] CENTER Complement Component C3 (10/17/2018 5:17 AM CDT) C3 Complement 106 82 - 193 mg/dL [facility] Specimen Blood Performing Organization Address [facility] Phone Number [address] [address] [phone] [place] Complement Component C4 (10/17/2018 5:17 AM CDT) C4 Complement 28 15 - 57 mg/dL [facility] Specimen Blood Performing Organization Address [facility] Phone Number [address] [address] CENTER Lipid panel (10/17/2018 5:17 AM CDT) Triglycerides 223 mg/dL [facility] Cholesterol 119 mg/dL [facility] HDL 30 mg/dL [facility] LDL Calculated 44 mg/dL [facility] Specimen Blood Narrative Performed At Triglyceride Reference Range: [facility] Low Risk <150 [id number] High Risk 200-499 Very High Risk>=500 Cholesterol Reference Range: Low Risk <200 [id number] High Risk>240 HDL Cholesterol Reference Range: Low Risk >=60 High Risk <40 LDL Cholesterol Reference Range: Optimal<100 Near Teseleg321-371 [id number] [id number] Very High >=190 Performing Organization Address [facility] Phone Number [address] [address] CENTER Troponin I (10/17/2018 12:39 AM CDT)Only the most recent of2 resultswithin the time period is included. Troponin I 0.03 0.00 - 0.03 ng/mL [facility] Specimen Blood Narrative Performed At Troponin I (TnI) levels must be interpreted [facility] in the context of the presenting symptoms and the clinical findings. Elevated TnI levels indicate myocardial damage, but are not specific for ischemic heart disease. Elevated TnI levels are seen in patients with other cardiac conditions (including myocarditis and congestive heart failure), and slight TnI elevations occur in patients with other conditions, including sepsis, renal failure, acidosis, acute neurological disease, and persistent tachyarrhythmia. Performing Organization Address City/[facility] Phone Number [address] [address] CENTER ECG 12 lead (10/16/2018 11:55 PM CDT) Specimen Narrative Performed At Ventricular Rate 85 BPM GE MUSE Atrial Rate 85 BPM P-R Interval 164 ms QRS Duration 156 ms Q-T Interval 428 ms QTC Calculation(Bazett) 509 ms P Darlington 50 degrees R Darlington -71 degrees T Darlington 35 degrees Normal sinus rhythm Right bundle branch block Left anterior fascicular block Bifascicular block Cannot exclude old anterolateral infarct Nonspecific T wave abnormality Prolonged QT Abnormal ECG No previous ECGs available Confirmed by MD LEXY, MARY ([id number]) on 10/17/2018 7:03:25 AM Procedure Note Interface, External Ris In - 10/17/2018 7:03 AM CDT Ventricular Rate 85 BPM Atrial Rate 85 BPM P-R Interval 164 ms QRS Duration 156 ms Q-T Interval 428 ms QTC Calculation(Bazett) 509 ms P Darlington 50 degrees R Darlington -71 degrees T [place] 35 degrees Normal sinus rhythm Right bundle branch block Left anterior fascicular block Bifascicular block Cannot exclude old anterolateral infarct Nonspecific T wave abnormality Prolonged QT Abnormal ECG No previous ECGs available Confirmed by MD PUGH YOCHAI ([id number]) on 10/17/2018 7:03:25 AM Performing Organization Address [facility] Phone Number Chomp Venous doppler legs bilateral (10/16/2018 11:21 PM CDT) Ejection Fraction [facility] Specimen Impressions Performed At [facility] 1. There is no deep venous obstruction in the common femoral, profunda femoral, femoral, popliteal, posterior tibial or peroneal veins. 2. There is no superficial venous obstruction in the great saphenous vein. Left Impression 1. There is no deep venous obstruction in the common femoral, profunda femoral, femoral, popliteal, posterior tibial or peroneal veins. 2. There is no superficial venous obstruction in the great saphenous vein. Conclusions Summary Venous duplex imaging and compression of the bilateral lower extremities were performed. The veins were adequately visualized. The bilateral venous systems were patent and compressible with no evidence of thrombus. Signature Velocities are measured in cm/s ; Diameters are measured in cm Narrative Performed At [facility] - Lower Extremities DVT Study [facility] Demographics Patient NameMORJOSE SCHAFERDate of Study 10/16/2018 MIRI 48 Visit [id number] nderFemale of 1970 Referring Rusty TiffanieDina Number [id number] Physician Freight Team Associate Kaveh RobbinsterpreAnya Washington MD Physician Procedure Type of Study: Veins: Lower Extremities DVT Study, VENOUS DOPPLER LEG, BILATERAL. Indications for Study:Rule out DVT. Patient Status:Routine. Study Location:Portable. Technical Quality:Adequate visualization. Risk Factors History of Disease + +----+ + !Diagnosis !Date!Comments ! + +----+ + !History/Risk Factors: !!Obesity, CKD, HTN, CHF,DM ! + +----+ + Procedure Note Interface, External Ris In - 10/17/2018 7:05 AM CDT [facility] - Lower Extremities DVT Study Demographics Patient Name JOSE BARBOUR Date of Study 10/16/2018 MIRI Age 48 Visit Number [id number] Gender Female Accession Number [id number] Date of 1970 Referring Rusty Moreno MD Room Number [id number] Physician Freight Team Associate Kaveh Figueroa Interpreting Virginie Washington MD Physician Procedure Type of Study: Veins: Lower Extremities DVT Study, VENOUS DOPPLER LEG, BILATERAL. Indications for Study:Rule out DVT. Patient Status:Routine. Study Location:Portable. Technical Quality:Adequate visualization. Risk Factors History of Disease + +----+ + !Diagnosis !Date!Comments ! + +----+ + !History/Risk Factors: ! !Obesity, CKD, HTN, CHF,DM ! + +----+ + Impressions Right Impression 1. There is no deep venous obstruction in the common femoral, profunda femoral, femoral, popliteal, posterior tibial or peroneal veins. 2. There is no superficial venous obstruction in the great saphenous vein. Left Impression 1. There is no deep venous obstruction in the common femoral, profunda femoral, femoral, popliteal, posterior tibial or peroneal veins. 2. There is no superficial venous obstruction in the great saphenous vein. Conclusions Summary Venous duplex imaging and compression of the bilateral lower extremities were performed. The veins were adequately visualized. The bilateral venous systems were patent and compressible with no evidence of thrombus. Signature Velocities are measured in cm/s ; Diameters are measured in cm Performing Organization Address City/State/Zipcode Phone Number [facility] 2D Echo W/Doppler(CW/PW/Color) (10/16/2018 9:34 PM CDT) Ejection Fraction [facility] Specimen Narrative Performed At Transthoracic Echocardiography Report (TTE) [facility] Demographics Patient NameJOSE BARBOUR Date of Study10/16/2018 MIRI Gender Female Visit [id number] Race Unknown [id number] Number Date of 1970 Elli Moreno MD Physician Age 48 year(s) SonographChandni Dwyer CS, RVT Respiratory Clinician Karely Montalvo VESNA Interpreting Ann Marie Martinez MD Physician Procedure Type of Study TTE procedure:2DECHO W DOPPLER(CW/PW/COLOR) (Routine) Indications:Acute Chest Pain/ Suspected CAD. Clinical History CHF, CKD, DM, HTN HGB 7.2 HCT 22.7 % Contrast Medium: Definity. Amount - 2 ml Height: 65 inches Weight: 95.25 kg (210 lbs) BSA: 2.02 m^2 BMI: 34.95 kg/m^2 HR: 84 bpm BP: 166/76 mmHg Summary 1. The left ventricle is chamber size (by vol index) is normal (female - LVED vol - 29-61ml/m2). No evidence of LV hypertrophy. LV endocardium is adequately visualized with IV ultrasound enhancing agent. All of the LV segments contract normally . Global LV systolic function normal . LVEF by Brownlee's method of disk assessment is normal (60%) . Normal diastolic function. 2. The right ventricular chamber size and systolic function are within normal limits. S' 12 cm/sec. 3. LA size is normal . RA size is normal. 4. A trace of tricuspid regurgitation. Estimated peak systolic PA pressure cannot be determined due to inadequate TR velocity signal . The estimated RA pressure by IVC dynamics 5-10mmHg . 5. No pericardial effusion is visualized. Previous Study No prior exam available for comparison. Signature Findings Technical Quality: Technically adequate exam. Left Ventricle The left ventricle is chamber size (by vol index) is normal (female - LVED vol - 29-61ml/m2). No ev idence of LV hypertrophy. LV endocardium is ad equately visualized with IV ultrasound enhancing ag ent. All of the LV segments contract normally . Gl obal LV systolic function normal . LVEF by Si mpson's method of disk assessment is normal (60%) . Normal diastolic function. Left AtriumLA size is normal . LA is incompletely visualized, size based on linear me asurement. Right VentricleThe right ventricular chamber size and systolic fu nction are within normal limits. S' 12 cm/sec. Right Atrium RA size is normal. Aortic Valve Normal AoV structure and function. No evidence of aortic stenosis. No evidence of aortic regurgitation. Mitral Valve Mild MV leaflet thickening. Mild MAC noted. No evidence of mitral regurgitation. Tricuspid ValveTV structure is normal. A trace of tricuspid regurgitation. Es timated peak systolic PA pressure cannot be de termined due to inadequate TR velocity signal . Pulmonic Valve Normal PV structure and function by limited views an d Doppler. AortaAortic root size (SInus of Valsalva diameter) is no rmal . PericardiumNo pericardial effusion is visualized. IVC/SVC/PA/PV/PleuralThe estimated RA pressure by IVC dynamics 5-10mmHg . Th e inferior vena cava size is normal . Th e inferior vena cava is adequately visualized. Chambers/Structures Left Ventricle LVIDd: 4.58 cm LVEDV:76.28 ml LVIDs: 2.38 cm LV Septum Diastolic: 1.05 cm LV PW Diastolic: 1.07 cm LV FS: 48 % LVEDV Brownlee's:115.61 ml LVESV Brownlee's:45.2 ml LVEDVI: 57 ml/m^2 LVEF Brownlee's: 60.9 % LVESVI: 22 ml/m^2 LVOT Diameter: 2.06 cm Right Ventricle RV Diast Dim.: 3.5 cm TAPSE: 1.6 cm Aorta Ao Root S of Susie.: 2.74 cm Ascending Aorta: 3.1 cm Doppler/Quantitative Measurements Mitral Valve MV Peak E-Wave: 1.39 m/sMV Peak A-Wave: 1.22 m/s E/A Ratio: 1.14 Peak Gradient: 7.77 mmHg Deceleration Time: 178.9 msec MV Garcia. Peak: Tissue Doppler E' Lateral Velocity: 0.12 m/s Aortic Valve Peak Velocity: 1.59 m/sMean Velocity: 1.13 m/s Peak Gradient: 10.17 mmHgMean Gradient: 5.74 mmHg AV Area (continuity): 3.16 cm^2 AV VTI: 30.19 cm AV DVI: 0.95 LVOT Peak Velocity: 1.38 m/s Peak Gradient: 7.66 mmHg Mean Velocity: 0.91 m/s Mean Gradient: 3.85 mmHg LVOT Diameter: 2.06 cmLVOT VTI: 28.62 cm LVOT Area: 3.33 cm^2LVOT SV:95.34 ml LVOT CO: 8.01 l/min LVOT CI: 3.97 l/min/m^2 Procedure Note Interface, External Ris In - 10/17/2018 11:52 AM CDT Transthoracic Echocardiography Report (TTE) Demographics Patient Name JOSE BARBOUR Date of Study 10/16/2018 MYRANDAALE Gender Female Visit Number [id number] Race Unknown Room Number [id number] Number Date of 1970 Referring Rusty Moreno MD Physician Age 48 year(s) Freight Team Associate Rachel Dwyer RDCS, RVT Respiratory Clinician Karely Montalvo RDCS Interpreting Ann Marie Martinez MD Physician Procedure Type of Study TTE procedure:2DECHO W DOPPLER(CW/PW/COLOR) (Routine) Indications:Acute Chest Pain/ Suspected CAD. Clinical History CHF, CKD, DM, HTN HGB 7.2 HCT 22.7 % Contrast Medium: Definity. Amount - 2 ml Height: 65 inches Weight: 95.25 kg (210 lbs) BSA: 2.02 m^2 BMI: 34.95 kg/m^2 HR: 84 bpm BP: 166/76 mmHg Summary 1. The left ventricle is chamber size (by vol index) is normal (female - LVED vol - 29-61ml/m2). No evidence of LV hypertrophy. LV endocardium is adequately visualized with IV ultrasound enhancing agent. All of the LV segments contract normally . Global LV systolic function normal . LVEF by Brownlee's method of disk assessment is normal (60%) . Normal diastolic function. 2. The right ventricular chamber size and systolic function are within normal limits. S' 12 cm/sec. 3. LA size is normal . RA size is normal. 4. A trace of tricuspid regurgitation. Estimated peak systolic PA pressure cannot be determined due to inadequate TR velocity signal . The estimated RA pressure by IVC dynamics 5-10mmHg . 5. No pericardial effusion is visualized. Previous Study No prior exam available for comparison. Signature Findings Technical Quality: Technically adequate exam. Left Ventricle The left ventricle is chamber size (by vol index) is normal (female - LVED vol - 29-61ml/m2). No evidence of LV hypertrophy. LV endocardium is adequately visualized with IV ultrasound enhancing agent. All of the LV segments contract normally . Global LV systolic function normal . LVEF by Brownlee's method of disk assessment is normal (60%) . Normal diastolic function. Left Atrium LA size is normal . LA is incompletely visualized, size based on linear measurement. Right Ventricle The right ventricular chamber size and systolic function are within normal limits. S' 12 cm/sec. Right Atrium RA size is normal. Aortic Valve Normal AoV structure and function. No evidence of aortic stenosis. No evidence of aortic regurgitation. Mitral Valve Mild MV leaflet thickening. Mild MAC noted. No evidence of mitral regurgitation. Tricuspid Valve TV structure is normal. A trace of tricuspid regurgitation. Estimated peak systolic PA pressure cannot be determined due to inadequate TR velocity signal . Pulmonic Valve Normal PV structure and function by limited views and Doppler. Aorta Aortic root size (SInus of Valsalva diameter) is normal . Pericardium No pericardial effusion is visualized. IVC/SVC/PA/PV/Pleural The estimated RA pressure by IVC dynamics 5-10mmHg . The inferior vena cava size is normal . The inferior vena cava is adequately visualized. Chambers/Structures Left Ventricle LVIDd: 4.58 cm LVEDV:76.28 ml LVIDs: 2.38 cm LV Septum Diastolic: 1.05 cm LV PW Diastolic: 1.07 cm LV FS: 48 % LVEDV Brownlee's:115.61 ml LVESV Brownlee's:45.2 ml LVEDVI: 57 ml/m^2 LVEF Brownlee's: 60.9 % LVESVI: 22 ml/m^2 LVOT Diameter: 2.06 cm Right Ventricle RV Diast Dim.: 3.5 cm TAPSE: 1.6 cm Aorta Ao Root S of Susie.: 2.74 cm Ascending Aorta: 3.1 cm Doppler/Quantitative Measurements Mitral Valve MV Peak E-Wave: 1.39 m/s MV Peak A-Wave: 1.22 m/s E/A Ratio: 1.14 Peak Gradient: 7.77 mmHg Deceleration Time: 178.9 msec MV Garcia. Peak: Tissue Doppler E' Lateral Velocity: 0.12 m/s Aortic Valve Peak Velocity: 1.59 m/s Mean Velocity: 1.13 m/s Peak Gradient: 10.17 mmHg Mean Gradient: 5.74 mmHg AV Area (continuity): 3.16 cm^2 AV VTI: 30.19 cm AV DVI: 0.95 LVOT Peak Velocity: 1.38 m/s Peak Gradient: 7.66 mmHg Mean Velocity: 0.91 m/s Mean Gradient: 3.85 mmHg LVOT Diameter: 2.06 cm LVOT VTI: 28.62 cm LVOT Area: 3.33 cm^2 LVOT SV:95.34 ml LVOT CO: 8.01 l/min LVOT CI: 3.97 l/min/m^2 Performing Organization Address City/State/Zipcode Phone Number [facility] Protein, random urine (10/16/2018 9:04 PM CDT) Protein, Urine 44 (H) 0 - 14 mg/dL [facility] Specimen Urine Performing Organization Address [facility]/Zipcode Phone Number [address] [address] [place] Osmolality, urine (10/16/2018 9:04 PM CDT) Osmolality, Ur 317 40-1,400 mOsm/kg [facility] Specimen Urine Performing Organization Address [facility] Phone Number [address] [address] [phone] [place] Chloride, random urine (10/16/2018 9:04 PM CDT) ChlorideUr 96 meq/L [facility] Specimen Urine Narrative Performed At Reference Range: No Normals [facility] Performing Organization Address [facility] Phone Number [address] [address] [place] Urinalysis w/Microscopic (10/16/2018 9:04 PM CDT) Color, UA Light Yellow [facility] Clarity, UA Clear [facility] Specific [place], UA 1.006 1.001 - 1.035 [facility] pH, UA 5.5 5.0 - 8.0 [facility] Protein, UA 30 mg/dL (A) Negative [facility] Glucose, UA Negative Negative [facility] Ketones, UA Negative Negative [facility] Bilirubin, UA Negative Negative [facility] Blood, UA Negative Negative [facility] Nitrite, UA Negative Negative [facility] Leukocytes, UA Negative Negative [facility] Urobilinogen, UA 0.2 0.2 - 1.0 mg/dL [facility] RBC, UA <1 /HPF [facility] WBC, UA 3 /HPF [facility] Mucus Rare [facility] Squam Epithel, UA <1 /HPF [facility] Specimen Source [facility] Specimen Urine Performing Organization Address City/State/Zipcode Phone Number [facility] [address] [place] [address] [phone] [place] Urinalysis w/Microscopic + Reflex to Culture (10/16/2018 6:47 PM CDT) Color, UA Light Yellow [facility] Clarity, UA Hazy [facility] Specific [place], UA 1.006 1.001 - 1.035 [facility] pH, UA 5.5 5.0 - 8.0 [facility] Protein, UA 30 mg/dL (A) Negative [facility] Glucose, UA Negative Negative [facility] Ketones, UA Negative Negative [facility] Bilirubin, UA Negative Negative [facility] Blood, UA Negative Negative [facility] Nitrite, UA Negative Negative [facility] Leukocytes, UA Trace (A) Negative [facility] Urobilinogen, UA 0.2 0.2 - 1.0 mg/dL [facility] RBC, UA <1 /HPF [facility] WBC, UA 10 /HPF [facility] Bacteria, UA Rare [facility] Mucus Rare [facility] Squam Epithel, UA 5 /HPF [facility] Amorphous Crystals [facility] Specimen Source [facility] Specimen Urine Performing Organization Address City/State/Zipcode Phone Number [address] [address] [phone] [place] Urea Nitrogen, random urine (10/16/2018 6:47 PM CDT) Urea Nitrogen, Ur 232 mg/dL [facility] Specimen Urine Narrative Performed At Reference Range: No Normals [facility] Performing Organization Address City/State/Zipcode Phone Number [address] [address] [phone] [place] Sodium, random urine (10/16/2018 6:47 PM CDT) Sodium Urine 90 meq/L [facility] Specimen Urine Narrative Performed At Reference Range: No Normals [facility] Performing Organization Address [facility] Phone Number [address] [address] [place] Creatinine, random urine (10/16/2018 6:47 PM CDT) Creatinine, Ur 30.6 mg/dL [facility] Specimen Urine Narrative Performed At Reference Range: No Normals [facility] Performing Organization Address [facility] Phone Number [address] [address] [place] Urine culture (10/16/2018 6:47 PM CDT) Result No growth [facility] Specimen Urine Performing Organization Address City/State/Zipcode Phone Number [address] [address] [place] Hemoglobin A1c (10/16/2018 6:26 PM CDT) Hemoglobin A1C 7.2 (H) 4.3 - 6.1 % [facility] Specimen Blood Performing Organization Address City/[facility]/Zipcode Phone Number [address] [address] [phone] [place] Hepatitis panel, acute (10/16/2018 6:25 PM CDT) Hep A IgM Nonreactive Nonreactive [facility] Hep B C IgM Nonreactive Nonreactive [facility] Hepatitis C Ab Nonreactive Nonreactive [facility] hepatitis B Surface Ag Nonreactive Nonreactive [facility] Specimen Blood Performing Organization Address [facility] Phone Number [address] [address] [place] Creatine Kinase (CK) (10/16/2018 6:25 PM CDT) Total CK 439 (H) 29 - 200 U/L [facility] Specimen Blood Performing Organization Address [facility] Phone Number [address] [address] [place] Acetaminophen level (10/16/2018 6:25 PM CDT) Acetaminophen Level <5.7 (L) 10.0 - 30.0 ug/mL [facility] Specimen Blood Narrative Performed At Therapeutic Range: 10.0-30.0 g/mL [facility] Toxic Levels:>200.0 g/mL Performing Organization Address [facility] Phone Number [address] [address] [place] Salicylate level (10/16/2018 6:25 PM CDT) Salicylate Lvl <5.0 (L) 15.0 - 30.0 mg/dL [facility] Specimen Blood Narrative Performed At Therapeutic Range: 15.0-30.0 mg/dL [facility] Toxic: >30.0 mg/dL [place]:>70.0 mg/dL Performing Organization Address [facility] Phone Number [address] [address] [place] after 12/21/2017 Insurance Payer Benefit Plan / Subscriber ID Type Phone Address Group BLUE CROSS/BLUE [employer]BS OS xxxxxxxxxxxx PPO [phone] [address] SHIELD POS/PPO/[place] [address] Advance Directives For more information, please contact:[address] [phone] Code Status Date Activated Date Inactivated Comments Full Code 10/16/2018 5:38 PM 10/21/2018 2:34 PM This code status was determined by: Patient
--- OUTSIDE RECORDS SUMMARY | 2018-12-22 14:00 | XMS REPORT ---
:1970 [facility] Address [address] [place] [address] Care Team Providers Name Role Phone NABILA PAIGE Unavailable Unavailable DR BERE SOLANO Unavailable Unavailable Problems This patient has no known problems. Allergies, Adverse Reactions, Alerts This patient has no known allergies or adverse reactions. Medications This patient has no known medications. Encounters Start End Encounter Admission Attending Care Care Encounter Date/Time Date/Time Type Type Clinicians Facility Department ID 2018 2018 Outpatient C XIOMARA Aurelio [facility] [id number] 04:57:00 08:15:00 BERE Results Test Description Test Time Test Comments Text Results Atomic Results Result Comments BONE MARROW EXAM 2018-11-14 14:30:00 Bone Marrow Pathology Report Case: [id number] Authorizing Provider: Tiff Colmenares MD Collected: 10/20/2018 1030 Ordering Location: [address] Received: 10/20/2018 1151 Service Pathologist: Damián Mckeon MD Specimens: A) - Iliac Crest, Left B) - C) - Karyotype is reported to be 46,XX[20].Mutational studies for calreticulin, JAK2, and MPL are reported to be NEGATIVE.See attached scanned report for further additional details. Addendum electronically signed by Damián Mckeon MD on 11/14/2018 at 2:30 PMBONE MARROW ASPIRATE, CLOT, AND DECALCIFIED BIOPSY:NORMOCELLULAR (60%) MARROW WITH TRILINEAGE HEMATOPOIESIS AND MILD ATYPICAL MEGAKARYOCYTIC HYPERPLASIA.NO MORPHOLOGIC OR IMMUNOPHENOTYPIC EVIDENCE OF LYMPHOMA OR ACUTE LEUKEMIA.BLASTS ARE NOT INCREASED.STORAGE IRON IS DECREASED.SEE DIAGNOSTIC COMMENT. PERIPHERAL BLOOD:NORMOCYTIC ANEMIA.NO CIRCULATING BLASTS. Signing Pathologist Direct Phone Line: [phone] signed by Damián Mckeon MD on 10/24/2018 at 4:50 PMThere is no morphologic or immunophenotypic evidence of lymphoma or acute leukemia. This patient has a reported clinical history of anemia and hepatosplenomegaly as per the electronic medical records in [facility]. The morphologic finding of the megakaryocytes is nonspecific and could be reactive however they raise concern for the presence of an evolving myeloid neoplasm. Molecular and cytogenetic studies are currently pending, with results to be issued in an addendum report. 79215; 31387; 08675 x 2; 63451; 83947, 86154, [id number] Bone marrow The case is received in three parts all labeled with the patient's name, Jose Barbour, date of 1970, and accession number, [id number], which corresponds to the accompanying requisition page labeled with the same name and accession number.Part B. Received in formalin labeled with the patient's information only is a 2.0 x 1.0 x 1.0 cm blood clot. The specimen is bisected and submitted entirely in cassette B1.Part C. Received in formalin labeled with the patient's information only is a 2.1 cm long x 0.2 cm in diameter red-brown cylindrical portion of bone. The specimen is submitted in toto following decalcification cassette C1.Also received with the case is a blood smear labeled with the patient's name, date of and accession number. RP/ew BONE MARROW ASPIRATE:QUALITY:Aspirate- AdequateTouch imprint- AdequateMARROW DIFFERENTIAL COUNT: Number of cells counted: 3001% Blasts 1% Promyelocytes 23% Myelocytes/Metamyelocytes 29% Bands/Segmented granulocytes 2% Eosinophils and precursors 0% Basophils and precursors 38% Erythroid precursors 4% Lymphocytes 0% Monocytes2% Plasma cellsMyeloid: Erythroid Ratio: 1.5Blasts: Not increasedErythropoiesis: Mild megaloblastoid changes.Myelopoiesis: Mild left shiftMegakaryocytes: Increased, hypolobated and multinucleated forms.Stainable iron is focally identified on marrow particles present on the aspirate smear and appears to be decreased. Ring sideroblasts are not identified. BONE MARROW BIOPSY: Biopsy- Adequate Clot- AdequateThe marrow core demonstrates a cellularity of approximately 60%. Megakaryocytes are increased and demonstrate areas of loose clustering. Immunohistochemical studies performed on the core biopsy (block C1) demonstrate small mature CD20 positive B cells and CD3 positive T cells. Blasts are not increased by CD34. Plasma cells are polytypic for kappa and lambda immunostains. Stainable iron is focally identified on the clot section by the Perls iron special stain. PERIPHERAL BLOOD:Red cells: Mild anisopoikilocytosis with polychromasia White cells: Mild left shift. No circulating blastsPlatelets: UnremarkableThe interpretation of this case included the use of immunohistochemistry or special stains.BLOCK B1- PERLS IRONBLOCK C1- CD20, CD3, CD34, KAPPA, LAMBDAControl Slides Examined: In-house known positive controls were evaluated along with the test tissue. These control slides run alongside of the patients sample show appropriate staining. Internal positive and negative controls when available are evaluated Immunohistochemistry technical testing was performed at [facility] Pathology Laboratory where it was developed and its performance characteristics were determined. It has not been cleared or approved by the U.S. Food and Drug Administration. The FDA has determined that such clearance or approval is not necessary. The test is used for clinical purposes. It should not be regarded as investigational or for research. This laboratory is certified under the Clinical Laboratory Improvement Amendments of 1988 (CLIA-88) as qualified to perform high complexity clinical laboratory testing. FLOW CYTOMETRY REQUISITION 2018-10-23 14:30:00 Test Item Value Reference Range Comments FLOW CYTOMETRY RESULT POINTER (OPAL) (test kghm=4863) See Separate Report FLOW CYTOMETRY AP CASE # (OPAL) (test zvzp=9950) [id number] FLOW [id number] 09:46:00Flow Cytometry Report Case: [id number] Authorizing Provider: Tiff Colmenares MD Collected: 10/20/2018 1151 Ordering Location: [address] Received: 2018 1336 Service Pathologist: Damián Mckeon MD Specimen: Other BONE MARROW, FLOWCYTOMETRY:NO MONOCLONAL B CELL POPULATION.NO ABNORMAL T CELL POPULATION.NO INCREASED BLAST POPULATION.CORRELATION WITH MORPHOLOGIC FINDINGS REQUIRED. at 9: 46 [id number] marrow CD8, surface-Brockway, CD56, surface-Lambda, CD5, CD19 , CD10, CD3, CD20, CD4, CD45, CD14, CD13, CD33, CD117, CD34, cKappa, cLambda, CD38, AD044Bgwzqgpe Viability: 97.2% Blasts: The dim CD45+ CD34+ blasts comprise [...] are noted with polytypic cytoplasmic light chain expression.The remaining events analyzed represent nonviable cells, non-hematolymphoid cells, and/or debris.These tests were developed and their performance characteristics determined by [facility]. Theyhave not been cleared or approved by the U.S. Food and Drug Administration. The FDA has determined that such clearance or approval is not necessary. It should not be regarded as investigational or for research. This laboratory is certified under the Clinical Laboratory Improvement Amendments of 1988 ("CLIA") as qualified to perform high-complexity clinical testing.ANTI-NUCLEAR ANTIBODY (ANGELES)2018-10-21 11:18:00 Test Item Value Reference Range Comments ANTI-NUCLEAR ANTIBODY (ANGELES) (BEAKER) (test Positive Negative xlkg=207) Test performed by IFA method.ANGELES TITER AND [id number] 11:18:00 Test Item Value Reference Range Comments ANGELES TITER (BEAKER) (test fcqa=0105) :160 ANGELES PATTERN (BEAKER) (test cuty=8035) Nucleolar HEPATITIS A [id number] 08:30:00 Test Item Value Reference Range Comments HEPATITIS A IGM ANTIBODY (BEAKER) (test Nonreactive Nonreactive sflk=732) HEPATITIS A IGG ANTIBODY (BEAKER) (test Reactive Nonreactive fmis=5608) POCT-GLUCOSE [id number] 08:29:00 Test Item Value Reference Range Comments POC-GLUCOSE METER (I-WorksAKER) 270 mg/dL 70-110 TESTED AT [address] (test krxc=0510) [facility] [address] HEPATITIS B [id number] 08:29:00 Test Item Value Reference Range Comments HEPATITIS B CORE TOTAL ANTIBODY (BEAKER) (test Nonreactive Nonreactive yktp=683) HEPATITIS B SURFACE ANTIBODY (BEAKER) (test < mIU/mL <8.0 hmzh=440) HEPATITIS B SURFACE ANTIGEN (2) (BEAKER) (test Nonreactive Nonreactive rtsc=1674) BASIC METABOLIC [id number] 06:54:00 Test Item Value Reference Range Comments SODIUM (BEAKER) (test 131 meq/L 136-145 csfb=962) POTASSIUM (BEAKER) (test 4.7 meq/L 3.5-5.1 yhhr=801) CHLORIDE (BEAKER) (test 96 meq/L 98-107 twky=046) CO2 (BEAKER) (test 25 meq/L 22-29 tide=015) BLOOD UREA NITROGEN 62 mg/dL 7-21 (BEAKER) (test hzsq=164) CREATININE (BEAKER) (test 2.80 mg/dL 0.57-1.25 wflt=879) GLUCOSE RANDOM (BEAKER) 278 mg/dL 70-105 (test ifhl=497) CALCIUM (BEAKER) (test 9.3 mg/dL 8.4-10.2 eamv=187) EGFR (BEAKER) (test 18 mL/min/1.73 sq m ESTIMATED GFR IS NOT aqsl=1997) ACCURATE CREATININE CLEARANCE IN PREDICTING GLOMERULAR FILTRATION RATE. ESTIMATED GFR IS NOT APPLICABLE FOR DIALYSIS PATIENTS. [id number] 06:50:00 Test Item Value Reference Range Comments MAGNESIUM (BEAKER) (test masj=870) 2.1 mg/dL 1.6-2.6 HEPATIC FUNCTION [id number] 06:50:00 Test Item Value Reference Range Comments TOTAL PROTEIN (BEAKER) (test fzwj=566) 7.7 gm/dL 6.0-8.3 ALBUMIN (BEAKER) (test gvey=7583) 3.5 g/dL 3.5-5.0 BILIRUBIN TOTAL (BEAKER) (test trbt=453) 0.4 mg/dL 0.2-1.2 BILIRUBIN DIRECT (BEAKER) (test zsmk=370) 0.2 mg/dL 0.1-0.5 ALKALINE PHOSPHATASE (BEAKER) (test piww=591) 61 U/L 40-150 AST (SGOT) (BEAKER) (test fdpj=898) 39 U/L 5-34 ALT (SGPT) (BEAKER) (test jueg=699) 253 U/L 6-55 LACTATE DEHYDROGENASE (LDH)2018-10-21 06:50:00 Test Item Value Reference Range Comments LACTATE DEHYDROGENASE (BEAKER) (test mcma=338) 224 U/L 125-220 [id number] 06:20:00 Test Item Value Reference Range Comments FERRITIN (BEAKER) (test jjhn=732) 1162 ng/mL 5-275 POCT-GLUCOSE [id number] 21:09:00 Test Item Value Reference Range Comments POC-GLUCOSE METER (BEAKER) 336 mg/dL 70-110 Notified JOCY ARVIZU/TESTED AT [facility] (test monp=1798) [address] [place] [address] POCT-GLUCOSE [id number] 18:17:00 Test Item Value Reference Range Comments POC-GLUCOSE METER (BEAKER) 308 mg/dL 70-110 TESTED AT [address] (test ayis=1489) [facility] [address] PROTEIN ELECTROPHORESIS, [id number] 17:39:00 Test Item Value Reference Range Comments ALBUMIN FRACTION (BEAKER) 3.0 g/dL 3.5-5.5 (test keno=509) ALPHA 1 FRACTION (BEAKER) 0.4 g/dL 0.2-0.4 (test eruu=857) ALPHA 2 FRACTION (BEAKER) 1.2 g/dL 0.5-0.9 (test mthf=060) BETA FRACTION (BEAKER) (test 0.8 g/dL 0.6-1.1 lbfw=805) GAMMA GLOBULIN FRACTION 2.2 g/dL 0.7-1.7 (BEAKER) (test bhok=962) INTERPRETATION-119 (BEAKER) Total protein and albumin (test rpio=5322) decreased. Alpha-1 and alpha-2 globulin percentages increased. Gamma increased in a diffuse fashion. This indicates an acute phase response and concomitant chronic immune or inflammatory response. ZNRO-IGQXEEIHSEQ-138 Armani To M.D. (electonic (BEAKER) (test icnh=6013) signature) PROTEIN TOTAL SERUM, SPEP 7.6 gm/dL 6.0-8.3 (BEAKER) (test rkhp=6572) BONE MARROW PROCESS.2018-10-20 12:02:00 Test Item Value Reference Range Comments ANATOMIC CASE# (OPAL) (test vvbk=1095) [id number] ORDERED BY DOCTOR# (OPAL) (test qqvx=8275) Escudier PERFORMED BY DOCTOR# (OPAL) (test wlxa=8314) Cora CLOT RECEIVED? (BEAKER) (test cmxd=2516) Yes BIOPSY RECEIVED? (BEAKER) (test mgwd=9640) Yes CULTURE RECEIVED? (BEAKER) (test ytkj=3422) No FLOW RECEIVED? (BEAKER) (test mhzs=5797) Yes CYTOGENICS? (BEAKER) (test yvah=7426) Yes MOLECULAR GENETICS? (BEAKER) (test yrvg=0623) Yes Good collection by Dr Curran slides are good(Rosa)CT, BIOPSY, BONE [id number] 11:46:00Reason for exam:->anemia, hepatosplenomegalyFINAL REPORT CT-guided aspiration and core biopsy of the bone marrow. CLINICAL HISTORY: Anemia, hepatosplenomegaly. COMPARISON STUDY: None. Informed consent was obtained from thepatient and the risks of the procedure were explained including bleeding, infection, blood vessels, nerves and other adjacent structures. This exam was performed according to our department dose optimization program which includes automated exposure control, adjustment of the mA and/or kV according tothe patient's size and/or use of iterative reconstruction [...] technique, CT fluoroscopic guidance and a 12-gauge [employer] core biopsy system, initially a nine cc aspiration of the posterior left iliac bone was performed. This wasgiven to the electronics repair technician who was present at the time of the study and deemed adequate. Subsequently, a core biopsy was obtained. This was also given to the electronics repair technician. COMPLICATIONS:None. ESTIMATED BLOOD LOSS: Minimal. Patient Disposition: The patient was in the same state post procedure as preprocedure. IMPRESSION: Successful CT-guided aspiration and core biopsy of the bone marrow. Signed: Long Shepherd MDReport Verified Date/Time: 10/20/2018 11:46:15 Reading Location: [facility] [id number] [facility] Consult Reading Room Electronically signed by: LONG SHEPHERD M.D. on 08/2018 11:46 AMPOCT-GLUCOSE [id number] 11:37:00 Test Item Value Reference Range Comments POC-GLUCOSE METER (BEAKER) 213 mg/dL 70-[address] [facility] [address] (test ggzr=3582) [facility] [address] CBC W/PLT COUNT & AUTO [id number] 10:17:00 Test Item Value Reference Range Comments WHITE BLOOD CELL COUNT (BEAKER) (test vqoz=519) 5.6 K/ L 3.5-10.5 RED BLOOD CELL COUNT (BEAKER) (test llco=259) 3.27 M/ L 3.93-5.22 HEMOGLOBIN (BEAKER) (test wqtb=404) 9.5 GM/DL 11.2-15.7 HEMATOCRIT (BEAKER) (test jqfs=953) 29.8 % 34.1-44.9 MEAN CORPUSCULAR VOLUME (BEAKER) (test gxzt=732) 91.1 fL 79.4-94.8 MEAN CORPUSCULAR HEMOGLOBIN (BEAKER) (test 29.1 pg 25.6-32.2 mnoc=985) MEAN CORPUSCULAR HEMOGLOBIN CONC (BEAKER) (test 31.9 GM/DL 32.2-35.5 lhth=789) RED CELL DISTRIBUTION WIDTH (BEAKER) (test 15.1 % 11.7-14.4 olxw=670) PLATELET COUNT (BEAKER) (test xdjg=434) 260 K/CU MM 150-450 MEAN PLATELET VOLUME (BEAKER) (test qnyu=295) 11.1 fL 9.4-12.3 NUCLEATED RED BLOOD CELLS (BEAKER) (test 0 /100 WBC 0-0 rpef=142) (CELLAVISION MANUAL DIFF)2018-10-20 10:17:00 Test Item Value Reference Range Comments NEUTROPHILS - REL (CELLAVISION)(BEAKER) (test 60 % jhum=4043) LYMPHOCYTES - REL (CELLAVISION)(BEAKER) (test 31 % xncm=9796) MONOCYTES - REL (CELLAVISION)(BEAKER) (test 3 % etui=7117) EOSINOPHILS - REL (CELLAVISION)(BEAKER) (test 4 % dbwm=8516) METAMYELOCYTES - REL (CELLAVISION)(BEAKER) (test 1 % 0-0 hxhn=1534) BANDS - REL (CELLAVISION)(BEAKER) (test 1 % 0-10 dwgn=7807) NEUTROPHILS - ABS (CELLAVISION)(BEAKER) (test 3.36 K/ul 1.56-6.13 bpgw=7968) LYMPHOCYTES - ABS (CELLAVISION)(BEAKER) (test 1.74 K/ul 1.18-3.74 hnua=2360) MONOCYTES - ABS (CELLAVISION)(BEAKER) (test 0.17 K/uL 0.24-0.36 shqj=7512) EOSINOPHILS - ABS (CELLAVISION)(BEAKER) (test 0.22 K/uL 0.04-0.36 qlqx=9983) METAMYELOCYTES - ABS (CELLAVISION)(BEAKER) (test 0.06 K/uL 0.00-0.00 edfa=3993) BANDS - ABS (CELLAVISION)(BEAKER) (test 0.06 K/uL 0.00-0.80 cnng=1990) TOTAL COUNTED (BEAKER) (test vedb=8036) 100 MANUAL NRBC PER 100 CELLS (BEAKER) (test 1 /100 WBC 0-0 eytf=1734) WBC MORPHOLOGY (BEAKER) (test xsqm=161) Normal PLT MORPHOLOGY (BEAKER) (test mzqd=749) Normal POLYCHROMATOPHILLIC RBCS(BEAKER) (test shwq=611) 1+ few ANISOCYTOSIS (BEAKER) (test nkck=020) 1+ few ARTIFACT (CELLAVISION)(BEAKER) (test bzbm=1091) Present PLATELET CONCENTRATION (CELLAVISION)(BEAKER) Adequate (test uwhd=9405) Received comment: User comments: Slide comments:BASIC METABOLIC [id number] 07:15:00 Test Item Value Reference Range Comments SODIUM (BEAKER) (test 135 meq/L 136-145 axxa=582) POTASSIUM (BEAKER) (test 4.6 meq/L 3.5-5.1 Specimen slightly acxz=682) hemolyzed CHLORIDE (BEAKER) (test 97 meq/L 98-107 axtb=356) CO2 (BEAKER) (test 26 meq/L 22-29 ezjl=849) BLOOD UREA NITROGEN 56 mg/dL 7-21 (BEAKER) (test rtfq=039) CREATININE (BEAKER) (test 2.65 mg/dL 0.57-1.25 Specimen slightly tnrn=908) hemolyzed GLUCOSE RANDOM (BEAKER) 191 mg/dL 70-105 (test abzg=254) CALCIUM (BEAKER) (test 9.6 mg/dL 8.4-10.2 jyps=206) EGFR (BEAKER) (test 19 mL/min/1.73 sq m ESTIMATED GFR IS NOT gyzf=8614) ACCURATE CREATININE CLEARANCE IN PREDICTING GLOMERULAR FILTRATION RATE. ESTIMATED GFR IS NOT APPLICABLE FOR DIALYSIS PATIENTS. [id number] 06:12:00 Test Item Value Reference Range Comments MAGNESIUM (BEAKER) (test 2.0 mg/dL 1.6-2.6 Specimen slightly hemolyzed votl=494) [id number] 06:12:00 Test Item Value Reference Range Comments PHOSPHORUS (BEAKER) (test 4.7 mg/dL 2.3-4.7 Specimen slightly hemolyzed jygf=592) [id number] 06:06:00 Test Item Value Reference Range Comments PROTIME (BEAKER) (test qybd=934) 13.0 seconds 11.9-14.2 INR (BEAKER) (test wpyh=234) 1.0 <=5.9 PARTIAL THROMBOPLASTIN TIME (BEAKER) (test 32.3 seconds 22.5-36.0 fxnu=556) Effective 09/13/2018: PT Reference Range ChangeNew: 11.9-14.2 Previous: 11.7- 14.7RECOMMENDED COUMADIN/WARFARIN INR THERAPY RANGESSTANDARD DOSE: 2.0-3.0 Includes: PROPHYLAXIS for venous thrombosis, systemic embolization; TREATMENT for venous thrombosis and/or pulmonary embolus.HIGH RISK: Target INR is2.5-3.5 for patients wiht mechanical heart valves.POCT-GLUCOSE [id number] 21:39:00 Test Item Value Reference Range Comments POC-GLUCOSE METER (BEAKER) 327 mg/dL 70-110 Will Repeat Test/TESTED AT (test nrwp=0222) [facility] [address] [place] [address] POCT-GLUCOSE [id number] 17:28:00 Test Item Value Reference Range Comments POC-GLUCOSE METER (BEAKER) 244 mg/dL 70-110 TESTED AT [address] (test chwi=7244) [facility] [address] RHEUMATOID FACTOR AB, REFLEX TO [id number] 11:15:00 Test Item Value Reference Range Comments RHEUMATOID FACTOR (BEAKER) (test btoj=306) Negative CBC W/PLT COUNT & AUTO [id number] 09:44:00 Test Item Value Reference Range Comments WHITE BLOOD CELL COUNT (BEAKER) (test wiia=930) 4.8 K/ L 3.5-10.5 RED BLOOD CELL COUNT (BEAKER) (test wkla=881) 3.17 M/ L 3.93-5.22 HEMOGLOBIN (BEAKER) (test xtky=357) 9.0 GM/DL 11.2-15.7 HEMATOCRIT (BEAKER) (test ykta=639) 29.0 % 34.1-44.9 MEAN CORPUSCULAR VOLUME (BEAKER) (test kfzq=875) 91.5 fL 79.4-94.8 MEAN CORPUSCULAR HEMOGLOBIN (BEAKER) (test 28.4 pg 25.6-32.2 hkac=950) MEAN CORPUSCULAR HEMOGLOBIN CONC (BEAKER) (test 31.0 GM/DL 32.2-35.5 pafv=128) RED CELL DISTRIBUTION WIDTH (BEAKER) (test 15.2 % 11.7-14.4 xkic=346) PLATELET COUNT (BEAKER) (test yxpd=842) 228 K/CU MM 150-450 MEAN PLATELET VOLUME (BEAKER) (test dxew=906) 10.7 fL 9.4-12.3 NUCLEATED RED BLOOD CELLS (BEAKER) (test 1 /100 WBC 0-0 utgl=490) (CELLAVISION MANUAL DIFF)2018-10-19 09:44:00 Test Item Value Reference Range Comments NEUTROPHILS - REL (CELLAVISION)(BEAKER) (test 72 % scwe=4617) LYMPHOCYTES - REL (CELLAVISION)(BEAKER) (test 14 % zcje=9354) MONOCYTES - REL (CELLAVISION)(BEAKER) (test 4 % pjsb=8649) EOSINOPHILS - REL (CELLAVISION)(BEAKER) (test 5 % wmqg=4173) METAMYELOCYTES - REL (CELLAVISION)(BEAKER) (test 4 % 0-0 vqde=2070) MYELOCYTES - REL (CELLAVISION)(BEAKER) (test 1 % 0-0 bdti=4162) NEUTROPHILS - ABS (CELLAVISION)(BEAKER) (test 3.46 K/ul 1.56-6.13 hdts=7774) LYMPHOCYTES - ABS (CELLAVISION)(BEAKER) (test 0.67 K/ul 1.18-3.74 tqxl=7598) MONOCYTES - ABS (CELLAVISION)(BEAKER) (test 0.19 K/uL 0.24-0.36 pouo=0854) EOSINOPHILS - ABS (CELLAVISION)(BEAKER) (test 0.24 K/uL 0.04-0.36 pdpr=3055) METAMYELOCYTES - ABS (CELLAVISION)(BEAKER) (test 0.19 K/uL 0.00-0.00 oart=5769) MYELOCYTES-ABS (CELLAVISION)(BEAKER) (test 0.05 K/uL 0.00-0.00 zwdw=9865) TOTAL COUNTED (BEAKER) (test wjkw=3349) 100 MANUAL NRBC PER 100 CELLS (BEAKER) (test 2 /100 WBC 0-0 pthx=2637) SMUDGE CELLS (BEAKER) (test qjhw=2779) Present GIANT PLATELETS (BEAKER) (test ymdi=586) Present ANISOCYTOSIS (BEAKER) (test ctuk=443) 1+ few PLATELET CONCENTRATION (CELLAVISION)(BEAKER) Adequate (test apus=3905) Received comment: User comments: Slide comments:POCT-GLUCOSE [id number] 09: 05:00 Test Item Value Reference Range Comments POC-GLUCOSE METER (BEAKER) 166 mg/dL 70-[address] [facility] [address] (test dcnd=5162) [facility] [address] COMPREHENSIVE METABOLIC [id number] 07:14:00 Test Item Value Reference Range Comments TOTAL PROTEIN (BEAKER) 8.2 gm/dL 6.0-8.3 Specimen slightly (test oxhy=603) hemolyzed ALBUMIN (BEAKER) (test 3.6 g/dL 3.5-5.0 Specimen slightly dqhk=5119) hemolyzed ALKALINE PHOSPHATASE 72 U/L 40-150 (BEAKER) (test oqby=434) BILIRUBIN TOTAL (BEAKER) 0.5 mg/dL 0.2-1.2 Specimen slightly (test vkud=020) hemolyzed SODIUM (BEAKER) (test 135 meq/L 136-145 fvne=305) POTASSIUM (BEAKER) (test 4.2 meq/L 3.5-5.1 Specimen slightly lyhe=377) hemolyzed CHLORIDE (BEAKER) (test 97 meq/L 98-107 xkwy=587) CO2 (BEAKER) (test 27 meq/L 22-29 tpll=664) BLOOD UREA NITROGEN 60 mg/dL 7-21 (BEAKER) (test nlxo=159) CREATININE (BEAKER) (test 2.79 mg/dL 0.57-1.25 Specimen slightly wwid=841) hemolyzed GLUCOSE RANDOM (BEAKER) 171 mg/dL 70-105 (test ovgl=290) CALCIUM (BEAKER) (test 9.5 mg/dL 8.4-10.2 kavk=476) AST (SGOT) (BEAKER) (test 152 U/L 5-34 Specimen slightly jaic=493) hemolyzed ALT (SGPT) (BEAKER) (test 532 U/L 6-55 Specimen slightly fcgk=216) hemolyzed EGFR (BEAKER) (test 18 mL/min/1.73 sq m ESTIMATED GFR IS NOT uado=4656) ACCURATE CREATININE CLEARANCE IN PREDICTING GLOMERULAR FILTRATION RATE. ESTIMATED GFR IS NOT APPLICABLE FOR DIALYSIS PATIENTS. [id number] 06:36:00 Test Item Value Reference Range Comments MAGNESIUM (BEAKER) (test 2.0 mg/dL 1.6-2.6 Specimen slightly hemolyzed djjj=474) [id number] 06:36:00 Test Item Value Reference Range Comments PHOSPHORUS (BEAKER) (test 4.4 mg/dL 2.3-4.7 Specimen slightly hemolyzed iqch=213) URIC [id number] 06:36:00 Test Item Value Reference Range Comments URIC ACID (BEAKER) (test 9.8 mg/dL 2.6-7.2 Specimen slightly hemolyzed xyua=882) HEPATIC FUNCTION [id number] 06:36:00 Test Item Value Reference Range Comments TOTAL PROTEIN (BEAKER) (test 8.2 gm/dL 6.0-8.3 Specimen slightly hemolyzed qjrn=939) ALBUMIN (BEAKER) (test 3.6 g/dL 3.5-5.0 Specimen slightly hemolyzed xwzn=3007) BILIRUBIN TOTAL (BEAKER) (test 0.5 mg/dL 0.2-1.2 Specimen slightly hemolyzed lkwu=783) BILIRUBIN DIRECT (BEAKER) (test 0.2 mg/dL 0.1-0.5 Specimen slightly hemolyzed zpuz=656) ALKALINE PHOSPHATASE (BEAKER) 72 U/L 40-150 (test rldd=751) AST (SGOT) (BEAKER) (test 152 U/L 5-34 Specimen slightly hemolyzed zymj=650) ALT (SGPT) (BEAKER) (test 532 U/L 6-55 Specimen slightly hemolyzed fhrc=114) B-TYPE NATRIURETIC FACTOR (BNP)2018-10-19 06:33:00 Test Item Value Reference Range Comments B-TYPE NATRIURETIC PEPTIDE (BEAKER) (test 162 pg/mL 0-100 fgre=594) PROTHROMBIN [id number] 06:06:00 Test Item Value Reference Range Comments PROTIME (BEAKER) (test ymhl=011) 13.4 seconds 11.9-14.2 INR (BEAKER) (test bjqu=834) 1.1 <=5.9 Effective 09/13/2018: PT Reference Range ChangeNew: 11.9-14.2 Previous: 11.7- 14.7RECOMMENDED COUMADIN/WARFARIN INR THERAPY RANGESSTANDARD DOSE: 2.0-3.0 Includes: PROPHYLAXIS for venous thrombosis, systemic embolization; TREATMENT for venous thrombosis and/or pulmonary embolus.HIGH RISK: Target INR is2.5-3.5 for patients wiht mechanical heart valves.CALCIUM, [id number] 05:56:00 Test Item Value Reference Range Comments CALCIUM IONIZED (BEAKER) (test evvm=193) 1.10 mmol/L 1.12-1.27 PH, BLOOD (BEAKER) (test jmim=0722) 7.38 CALCIUM, [id number] 05:56:00 Test Item Value Reference Range Comments CALCIUM IONIZED (BEAKER) (test wyqw=423) 1.07 mmol/L 1.12-1.27 PH, BLOOD (BEAKER) (test nlzt=7932) 7.41 POCT-GLUCOSE [id number] 21:33:00 Test Item Value Reference Range Comments POC-GLUCOSE METER (BEAKER) 297 mg/dL 70-[address] [facility] [address] [place] [id number] (test pcwt=4024) [facility] [address] CMV PCR, [id number] 18:31:00 Test Item Value Reference Range Comments CMV VIRAL LOAD - NEGATIVE Negative or below the linear (BEAKER) (test hdwc=1475) range of the assay (<375 copies/mL) Cytomegalovirus (CMV) infection can cause significant disease in immunosuppressed patients. However,it is common for CMV to manifest as a limited infection which is of no clinical significance in immunosuppressed patients or in healthy individuals.Viral load measurements are helpful to identify clinical CMV infection and to guide the pre-emptive management of antiviral therapy. For treatment of CMVinfection due to reactivation in transplant recipients, a threshold between 4,000 and 5,000 copies/mL is suggested. For treatment of primary CMV infection, a lower threshold can be used.CMV infection may also be monitored using weekly serial measurements. Serial measurements of CMV DNA viral load canbe evaluated by identifying a 10- fold change, as well as assessing the CMV DNA viral load and the clinical context for each patient.The plasma CMV DNA viral load was detected using quantitative polymerase chain reaction and fluorescent monitoring of a specific hybridized probe. Genetic variation and other factors can affect the accuracy of nucleic acid testing. Therefore, the results should be interpreted in light of clinical data. A negative result may not exclude the presence of CMV disease.This test was developed and its performance characteristics determined by the [facility] Pathology Department, Section of Molecular Pathology. It has not been cleared or approved by the U.S. Food and Drug Administration (FDA), since FDA approval is not required for clinical use of the test. Validation was done as required by The Clinical Laboratory Improvement Amendments of 1988.EBV VIRAL [id number] 18:23:00 Test Item Value Reference Range Comments EBV VIRAL LOAD - NEGATIVE Negative or below the linear (BEAKER) (test fxpy=2975) range of the assay (<500 copies/mL) This assay was performed by real-time PCR for the detection of the Adria-Pozo virus (EBV) gene EBNA-1. The test is composed of (1) DNA extraction from patient specimen, and (2) real-time PCR amplification and detection with EBNA-1- specific primers and probes. A well-conserved region of the EBNA-1 gene is targeted, along with an internal control sequence used to confirm PCR amplification. Asymptomatic carriers and viral genetic variation, among other factors, can affect the accuracy of nucleic acid testing; therefore, results should be interpreted in light of clinical data.This test was developedand its performance characteristics determined by the [facility] Pathology Department, Section of Molecular Pathology. It has not been cleared or approved by the U.S. Food and Drug Administration (FDA), since FDA approval is not required for clinical use of the test. Validation was doneas required by The Clinical Laboratory Improvement Amendments of 1988.POCT-GLUCOSE [id number] 18:02:00 Test Item Value Reference Range Comments POC-GLUCOSE METER (BEAKER) 198 mg/dL 70-[address] [facility] [address] (test dywm=9909) [facility] [address] RESPIRATORY PANEL [id number] 17:32:00 Test Item Value Reference Range Comments HUMAN METAPNEUMOVIRUS (BEAKER) (test Not detected Not detected, Equivocal gpep=6261) RHINOVIRUS (BEAKER) (test phdq=0500) Not detected Not detected, Equivocal INFLUENZA A (BEAKER) (test dcmm=3165) Not detected Not detected, Equivocal INFLUENZA A (NO SUBTYPE) (test Not detected, Equivocal yvbb=2549) INFLUENZA A SUBTYPE H1 (BEAKER) (test Not detected, Equivocal oqqn=2206) INFLUENZA A SUBTYPE H3 (BEAKER) (test Not detected, Equivocal ldsj=4717) INFLUENZA A SUBTYPE H1-2009 (BEAKER) Not detected, Equivocal (test lbnk=1073) INFLUENZA B (BEAKER) (test powr=1085) Not detected Not detected, Equivocal RESPIRATORY SYNCYTIAL VIRUS (BEAKER) Not detected Not detected, Equivocal (test rico=9282) PARAINFLUENZA VIRUS 1 (BEAKER) (test Not detected Not detected, Equivocal hmko=6411) PARAINFLUENZA VIRUS 2 (BEAKER) (test Not detected Not detected, Equivocal adil=7086) PARAINFLUENZA VIRUS 3 (BEAKER) (test Not detected Not detected, Equivocal vhxs=3073) PARAINFLUENZA VIRUS 4 (BEAKER) (test Not detected Not detected, Equivocal utbw=0219) ADENOVIRUS (BEAKER) (test hopg=4423) Not detected Not detected, Equivocal CORONAVIRUS 229E (BEAKER) (test Not detected Not detected, Equivocal tdnu=9204) CORONAVIRUS HKU1 (BEAKER) (test Not detected Not detected, Equivocal aetx=9512) CORONAVIRUS NL63 (BEAKER) (test Not detected Not detected, Equivocal fwtz=6182) CORONAVIRUS OC43 (BEAKER) (test Not detected Not detected, Equivocal stuu=9006) BORDETELLA PERTUSSIS (BEAKER) (test Not detected Not detected, Equivocal qwoq=1083) CHLAMYDOPHILA PNEUMONIAE (BEAKER) (test Not detected Not detected, Equivocal qari=2852) MYCOPLASMA PNEUMONIAE (BEAKER) (test Not detected Not detected, Equivocal qwal=5083) Other viruses and bacteria not targeted by this PCR panel cannot be excluded; therefore clinical correlation and follow up of serology, culture results, and other molecular studies is required. The results are not intended to be used as the sole means for clinical diagnosis or patient management decisions. This sample was tested at the [facility] Molecular Diagnostics Laboratory using the CrowdrallyArray Respiratory Panel. It is FDA cleared and has been verified and approved by the [facility] Molecular Diagnostics Laboratory for clinical use on nasopharyngeal swab specimens.The performance of the FilmArrayRP has not been established in individuals who received influenza vaccine. Recent administration ofa nasal influenza vaccine may cause false positive results for Influenza A and/orInfluenza B.EOSINOPHIL SMEAR, [id number] 16:42:00 Test Item Value Reference Range Comments EOSINOPHIL SMEAR, URINE (BEAKER) Rare EOS=less than 5% WBCs No EOS seen (test knrw=3040) seen are EOS CT, CHEST, WITHOUT [id number] 16:31:00FINAL REPORT CT Chest, abdomen, and pelvis without contrast History: shortness of breath Comparison: none Technique: serial axial imaging was performed without intravenous contrast as per departmental protocol. Multiplanar images are reconstructed and reviewed when indicated.This CT examination is performed using one or more of the following dose reduction techniques: Automated exposure control, adjustment of the mA and /or kV according to patient size, and /or use of iterative reconstruction technique. Findings:No mediastinal lymphadenopathy. No definite hilar enlargement. Normal size heart. No pericardial effusion. No thoracic aortic aneurysm. Normal caliber ofmain pulmonary trunk. Patent central airways. No pneumothorax. Trace bilateral pleural effusions,right greater than left. Mild bilateral lower lobe [...] bowel obstruction. No apparent bowel wall thickening. Nofindings to indicate acute appendicitis. A small amount of free fluid is seen within the pelvic cul-de-sac, nonspecific. No lymphadenopathy is appreciated. No aggressive osseous lesion. Impression:1. Technically limited study due to lack of oral or intravenous contrast.2. Trace bilateral pleural effusions, right greater than left.3. Previous cholecystectomy and hysterectomy.4. A small amount of free fluid is seen within the pelvic cul-de-sac, nonspecific. Signed: Mani Morel MDReport Verified Date/Time: 10/18/2018 16:31:25 Reading Location: [facility] Radiology Reading Room CT, [id number] 16:31:00Reason for exam:->hepatosplenomegalyFINAL REPORT CT Chest, abdomen, and pelvis without contrast History: shortness of breath Comparison: none Technique: serial axial imaging was performed without intravenous contrast as per departmental protocol. Multiplanar images are reconstructed and reviewed when indicated.This CT examination is performed using one or more of the following dose reduction techniques: Automated exposure control, adjustment of the mA and /or kV according to patient size, and/or use of iterative reconstruction technique. Findings:No mediastinal lymphadenopathy. No definite hilar enlargement. Normal size heart. No pericardial effusion. No thoracic aortic aneurysm. Normal caliber ofmain pulmonary trunk. Patent central airways. No pneumothorax. Trace bilateral pleural effusions,right greater than left. Mild bilateral lower lobe [...] bowel obstruction. No apparent bowel wall thickening. Nofindings to indicate acute appendicitis. A small amount of free fluid is seen within the pelvic cul-de- sac, nonspecific. No lymphadenopathy is appreciated. No aggressive osseous lesion. Impression:1. Technically limited study due to lack of oral or intravenous contrast.2. Trace bilateral pleural effusions, right greater than left.3. Previous cholecystectomy and hysterectomy.4. A small amount of free fluid is seen within the pelvic cul-de-sac, nonspecific. Signed: Mani Morel MDReport Verified Date/Time: 10/18/2018 16:31:25 Reading Location: [facility] Radiology Reading Room Electronically signed by: MANI MOREL MD on 06/2018 04:31 PMCBC W/PLT COUNT & AUTO [id number] 15:06:00 Test Item Value Reference Range Comments WHITE BLOOD CELL COUNT 4.4 K/ L 3.5-10.5 This is a corrected result. (BEAKER) (test pfdl=385) Previous result was 4.2 K/ L on 10/18/2018 at 0657 CDT RED BLOOD CELL COUNT (BEAKER) 2.92 M/ L 3.93-5.22 This is a corrected result. (test xqko=975) Previous result was 2.88 M/ L on 10/18/2018 at 0657 CDT HEMOGLOBIN (BEAKER) (test 8.3 GM/DL 11.2-15.7 klos=413) HEMATOCRIT (BEAKER) (test 27.1 % 34.1-44.9 This is a corrected result. jgjn=248) Previous result was 26.4 % on 10/18/2018 at 0657 CDT MEAN CORPUSCULAR VOLUME 92.8 fL 79.4-94.8 This is a corrected result. (BEAKER) (test bwhv=975) Previous result was 91.7 fL on 10/18/2018 at 0657 CDT MEAN CORPUSCULAR HEMOGLOBIN 28.4 pg 25.6-32.2 This is a corrected result. (BEAKER) (test nepw=886) Previous result was 28.8 pg on 10/18/2018 at 0657 CDT MEAN CORPUSCULAR HEMOGLOBIN 30.6 GM/DL 32.2-35.5 This is a corrected result. CONC (BEAKER) (test zkkg=996) Previous result was 31.4 GM/DL on 10/18/2018 at 0657 CDT RED CELL DISTRIBUTION WIDTH 15.3 % 11.7-14.4 This is a corrected result. (BEAKER) (test dhjr=913) Previous result was 15.1 % on 10/18/2018 at 0657 CDT PLATELET COUNT (BEAKER) (test 185 K/CU MM 150-450 This is a corrected result. lvmm=823) Previous result was 177 K/CU MM on 10/18/2018 at 0657 CDT MEAN PLATELET VOLUME (BEAKER) 11.3 fL 9.4-12.3 This is a corrected result. (test witc=711) Previous result was 11.1 fL on 10/18/2018 at 0657 CDT NUCLEATED RED BLOOD CELLS 2 /100 WBC 0-0 This is a corrected result. (BEAKER) (test yvie=051) Previous result was 1 /100 WBC on 10/18/2018 at 0657 CDT (CELLAVISION MANUAL DIFF)2018-10-18 15:04:00 Test Item Value Reference Range Comments NEUTROPHILS - REL (CELLAVISION)(BEAKER) (test 74 % mtka=4000) LYMPHOCYTES - REL (CELLAVISION)(BEAKER) (test 14 % qsmr=8781) MONOCYTES - REL (CELLAVISION)(BEAKER) (test 3 % obwz=5720) EOSINOPHILS - REL (CELLAVISION)(BEAKER) (test 6 % egyp=9845) MYELOCYTES - REL (CELLAVISION)(BEAKER) (test 3 % 0-0 yijb=0036) NEUTROPHILS - ABS (CELLAVISION)(BEAKER) (test 3.26 K/ul 1.56-6.13 nnkh=4577) LYMPHOCYTES - ABS (CELLAVISION)(BEAKER) (test 0.62 K/ul 1.18-3.74 dnty=1384) MONOCYTES - ABS (CELLAVISION)(BEAKER) (test 0.13 K/uL 0.24-0.36 uvri=6336) EOSINOPHILS - ABS (CELLAVISION)(BEAKER) (test 0.26 K/uL 0.04-0.36 knnt=7073) MYELOCYTES-ABS (CELLAVISION)(BEAKER) (test 0.13 K/uL 0.00-0.00 khee=8964) TOTAL COUNTED (BEAKER) (test qhhf=1479) 100 MANUAL NRBC PER 100 CELLS (BEAKER) (test 1 /100 WBC 0-0 gagn=4149) WBC MORPHOLOGY (BEAKER) (test avri=395) Normal CLUMPED PLATELETS (BEAKER) (test ztde=109) Present GIANT PLATELETS (BEAKER) (test usfi=613) Present POLYCHROMATOPHILLIC RBCS(BEAKER) (test dcgx=148) 1+ few ANISOCYTOSIS (BEAKER) (test hhgw=219) 1+ few MICROCYTES (BEAKER) (test cihp=213) 1+ few ARTIFACT (CELLAVISION)(BEAKER) (test txeh=1747) Present PLATELET CONCENTRATION (CELLAVISION)(BEAKER) Adequate (test nsdz=2859) Received comment: User comments: Slide comments:RAPID INFLUENZA A&B [id number] 13:32:00 Test Item Value Reference Range Comments RAPID INFLUENZA A AG (BEAKER) (test Negative Negative, Inconclusive bxzx=2436) RAPID INFLUENZA B AG (BEAKER) (test Negative Negative, Inconclusive irsf=5764) [id number] 13:19:00 Test Item Value Reference Range Comments FERRITIN (BEAKER) (test eeuk=462) 6230 ng/mL 5-275 HIV-1 ANTIGEN WITH HIV-1/2 [id number] 12:57:00 Test Item Value Reference Range Comments HIV-1 ANTIGEN WITH HIV 1\\T\\2 ANTIBODY (2) Nonreactive Nonreactive (BEAKER) (test ecnc=1344) [id number] 12:53:00 Test Item Value Reference Range Comments HAPTOGLOBIN (BEAKER) (test ancj=846) 301 mg/dL 14-258 [id number] 12:34:00 Test Item Value Reference Range Comments D-DIMER QUANTITATIVE (BEAKER) (test jdbo=913) 13.12 MG/L FEU <0.50 Intended Use: The D-Dimer Assay can be used to aid in the diagnosis of Deep Vein Thrombosis (DVT) and Pulmonary Embolism Disease (PED).In patients with low pre-test probability, various studies concerning STA Liatest D-dimer test have reported that with a cutoff value of 0.50 MG/L FEU, the Negative Predictive Value (NPV) regarding the exclusion of thrombosis is within 95-100% range.ALPHA FETOPROTEIN (AFP), TUMOR [id number] 12:29:00 Test Item Value Reference Range Comments ALPHA-FETOPROTEIN (BEAKER) (test hxhm=1765) < ng/mL <10.0 [id number] 11:08:00 Test Item Value Reference Range Comments TRIGLYCERIDES (BEAKER) (test lebx=973) 299 mg/dL TRIGLYCERIDE REFERENCE RANGELow Risk <150Borderline Risk 150-199High Risk 200-499Very High Risk>=500POCT-GLUCOSE [id number] 11:05:00 Test Item Value Reference Range Comments POC-GLUCOSE METER (BEAKER) 248 mg/dL 70-110 TESTED AT [address] (test asok=7563) [place] [id number] RETICULOCYTE [id number] 11:05:00 Test Item Value Reference Range Comments RETICULOCYTE COUNT PCT (BEAKER) (test dfua=117) 4.3 % 0.5-1.7 IRON, TIBC, % SAT. (WITHOUT FERRITIN)2018-10-18 10:12:00 Test Item Value Reference Range Comments IRON (BEAKER) (test ssdr=932) 42.0 ug/dL 40.0-160.0 TOTAL IRON BINDING CAPACITY (BEAKER) (test 264 ug/dL 250-450 wzsv=328) IRON % SATURATION (2) (BEAKER) (test likh=9287) 16 % 20-55 POCT-GLUCOSE [id number] 08:55:00 Test Item Value Reference Range Comments POC-GLUCOSE METER (BEAKER) 198 mg/dL 70-110 TESTED AT [address] (test jwxs=7427) [place] [id number] 06:57:00 Test Item Value Reference Range Comments PHOSPHORUS (BEAKER) (test qozg=454) 4.5 mg/dL 2.3-4.7 [id number] 06:57:00 Test Item Value Reference Range Comments MAGNESIUM (BEAKER) (test nhvr=271) 1.7 mg/dL 1.6-2.6 HEPATIC FUNCTION [id number] 06:57:00 Test Item Value Reference Range Comments TOTAL PROTEIN (BEAKER) (test nalo=479) 7.6 gm/dL 6.0-8.3 ALBUMIN (BEAKER) (test cuzs=7734) 3.4 g/dL 3.5-5.0 BILIRUBIN TOTAL (BEAKER) (test cuev=260) 0.5 mg/dL 0.2-1.2 BILIRUBIN DIRECT (BEAKER) (test vwgl=188) 0.3 mg/dL 0.1-0.5 ALKALINE PHOSPHATASE (BEAKER) (test yjem=146) 75 U/L 40-150 AST (SGOT) (BEAKER) (test ihvq=130) 273 U/L 5-34 ALT (SGPT) (BEAKER) (test gyan=116) 693 U/L 6-55 BASIC METABOLIC [id number] 06:57:00 Test Item Value Reference Range Comments SODIUM (BEAKER) (test 135 meq/L 136-145 dpix=972) POTASSIUM (BEAKER) (test 3.9 meq/L 3.5-5.1 lmdw=524) CHLORIDE (BEAKER) (test 98 meq/L 98-107 iqyu=277) CO2 (BEAKER) (test 28 meq/L 22-29 wkgl=887) BLOOD UREA NITROGEN 64 mg/dL 7-21 (BEAKER) (test dztu=558) CREATININE (BEAKER) (test 3.19 mg/dL 0.57-1.25 fvvb=232) GLUCOSE RANDOM (BEAKER) 162 mg/dL 70-105 (test glug=854) CALCIUM (BEAKER) (test 9.1 mg/dL 8.4-10.2 fjqf=105) EGFR (BEAKER) (test 16 mL/min/1.73 sq m ESTIMATED GFR IS NOT dgbp=5237) ACCURATE CREATININE CLEARANCE IN PREDICTING GLOMERULAR FILTRATION RATE. ESTIMATED GFR IS NOT APPLICABLE FOR DIALYSIS PATIENTS. PROTHROMBIN TIME/[id number] 06:37:00 Test Item Value Reference Range Comments PROTIME (BEAKER) (test pdzq=659) 14.3 seconds 11.9-14.2 INR (BEAKER) (test nrew=041) 1.2 <=5.9 Effective 09/13/2018: PT Reference Range ChangeNew: 11.9-14.2 Previous: 11.7- 14.7RECOMMENDED COUMADIN/WARFARIN INR THERAPY RANGESSTANDARD DOSE: 2.0-3.0 Includes: PROPHYLAXIS for venous thrombosis, systemic embolization; TREATMENT for venous thrombosis and/or pulmonary embolus.HIGH RISK: Target INR is2.5-3.5 for patients wiht mechanical heart valves.CALCIUM, [id number] 06:19:00 Test Item Value Reference Range Comments CALCIUM IONIZED (BEAKER) (test anmg=373) 1.09 mmol/L 1.12-1.27 PH, BLOOD (BEAKER) (test ujsf=9872) 7.36 POCT-GLUCOSE [id number] 21:54:00 Test Item Value Reference Range Comments POC-GLUCOSE METER (BEAKER) 281 mg/dL 70-110 TESTED AT [address] (test szgh=1091) [facility] [address] RAD, CHEST, 1 VIEW, NON [id number] 19:11:00Reason for exam:->SOBShould this be performed at the bedside?->YesFINAL REPORT Clinical History: SOB. Comparison Study: None Findings: The cardiac silhouette is enlarged. Pulmonary venous congestion is seen. The lungs are within normal limits. The pleural spaces are clear. There is no pneumothorax. No significant bony or soft tissue abnormalities are seen. Impression: Cardiomegaly with some pulmonary venous congestion. Signed: Long Shepherd MDReport Verified Date/ Time: 10/17/2018 19:11:02 Reading Location: [facility] C013W Consult Reading Room [id number] 17:36:00 Test Item Value Reference Range Comments FERRITIN (BEAKER) (test auvo=615) 55317 ng/mL 5-275 LACTATE DEHYDROGENASE (LDH)2018-10-17 16:41:00 Test Item Value Reference Range Comments LACTATE DEHYDROGENASE (OPAL) (test gymu=871) 541 U/L 125-220 [id number] 16:37:00 Test Item Value Reference Range Comments FIBRINOGEN LEVEL (OPAL) (test htat=559) 439 mg/dl 225-434 POCT-GLUCOSE [id number] 12:47:00 Test Item Value Reference Range Comments POC-GLUCOSE METER (OPAL) 250 mg/dL 70-[address] [facility] [address] (test xnqp=5444) [facility] [address] PUL PERF IMAGING, PARTIC, [id number] 10:48:00FINAL REPORT PROCEDURE: V/Q LUNG SCAN CPT CODE: 67010 INDICATION: Acute chest pain pulmonary origin PROTOCOL: [...] suggestive of a fatty liver. Signed: Alvino Mirandacox branson Verified Date/Time: 10/17/2018 10:48:21 Reading Location: [address] Reading Room Electronically signed by: ALVINO MIRANDA MD on 05/2018 10:48 AMU/S, PELVIC, [id number] 10:02:00Reason for exam:-> AKIFINAL REPORT Abdominal and pelvic ultrasound dated 10/17/2018 [...] diameter. Main portal vein measures 13 mm indiameter. Pancreas is suboptimally visualized. Right kidney measures [...] present in the abdomen. Abdominal aorta is normalin caliber. The IVC is patent. Real-time Color [...] is seen in the pelvis. Impression: 1. Hepatosplenomegaly.2. Suboptimal visualization of the pancreassecondary to overlying gas.3. Echogenic kidneys suggestive of medical renal disease.4. Unremarkable pelvic ultrasound.5. Normal Doppler of the abdomen. Signed: Leobardo Ayoub MDReport Verified Date/Time:10/17/2018 10:02:56 Reading Location: [address] Radiology Reading Room U/S, ABDOMINAL, WITH [id number] 10:02: 00Reason for exam:->elevated transaminasesFINAL REPORT Abdominal and pelvic ultrasound dated 10/17/2018 [...] diameter. Main portal vein measures 13 mm indiameter. Pancreas is suboptimally visualized. Right kidney measures [...] present in the abdomen. Abdominal aorta is normalin caliber. The IVC is patent. Real- time Color and Spectral doppler ultrasound of the [...] is seen in the pelvis. Impression: 1. Hepatosplenomegaly.2. Suboptimal visualization of the pancreassecondary to overlying gas.3. Echogenic kidneys suggestive of medical renal disease.4. Unremarkable pelvic ultrasound.5. Normal Doppler of the abdomen. Signed: Leobardo Ayoubmidstate medical center Verified Date/Time:2018 10:02:56 Reading Location: [address] Radiology Reading Room VITAMIN B12 AND [id number] 08:37:00 Test Item Value Reference Range Comments VITAMIN B12 (BEAKER) (test cunf=326) > pg/mL 213-816 FOLATE (BEAKER) (test nfnz=451) 13.3 ng/mL >=7.0 POCT-GLUCOSE [id number] 08:32:00 Test Item Value Reference Range Comments POC-GLUCOSE METER (BEAKER) 168 mg/dL 70-[address] [facility] [address] (test nois=7079) [facility] [address] [id number] 08:03:00 Test Item Value Reference Range Comments FERRITIN (BEAKER) (test rmnb=741) 934[address] ng/mL 5-275 URIC [id number] 06:15:00 Test Item Value Reference Range Comments URIC ACID (BEAKER) (test gimw=860) 13.2 mg/dL 2.6-7.2 [id number] 06:15:00 Test Item Value Reference Range Comments MAGNESIUM (BEAKER) (test eblj=282) 1.8 mg/dL 1.6-2.6 LIPID [id number] 06:15:00 Test Item Value Reference Range Comments TRIGLYCERIDES (BEAKER) (test tlvt=066) 223 mg/dL CHOLESTEROL (BEAKER) (test iywg=249) 119 mg/dL HDL CHOLESTEROL (BEAKER) (test ifbf=942) 30 mg/dL LDL CHOLESTEROL CALCULATED (BEAKER) (test 44 mg/dL npfm=663) Triglyceride Reference Range: Low Risk <150 Borderline 150- 199 High Risk 200-499 Very High Risk >=500Cholesterol Reference Range: Low Risk <200 Borderline 200-239 High Risk > 240HDL Cholesterol Reference Range: Low Risk >=60 High Risk <40LDL Cholesterol Reference Range: Optimal <100 Near Optimal 100-129 Borderline 130-159 High 160-189 Very High >=190HEPATIC FUNCTION [id number] 06:15:00 Test Item Value Reference Range Comments TOTAL PROTEIN (BEAKER) (test jrrp=045) 7.9 gm/dL 6.0-8.3 ALBUMIN (BEAKER) (test wxzn=1849) 3.7 g/dL 3.5-5.0 BILIRUBIN TOTAL (BEAKER) (test usgb=913) 0.5 mg/dL 0.2-1.2 BILIRUBIN DIRECT (BEAKER) (test fibq=771) 0.3 mg/dL 0.1-0.5 ALKALINE PHOSPHATASE (BEAKER) (test ruzs=925) 83 U/L 40-150 AST (SGOT) (BEAKER) (test ivyx=389) 747 U/L 5-34 ALT (SGPT) (BEAKER) (test xipo=929) 1009 U/L 6-55 COMPLEMENT COMPONENT [id number] 06:15:00 Test Item Value Reference Range Comments C4 COMPLEMENT (BEAKER) (test bmhw=810) 28 mg/dL 15-57 COMPLEMENT COMPONENT [id number] 06:15:00 Test Item Value Reference Range Comments C3 COMPLEMENT (BEAKER) (test xsxh=095) 106 mg/dL 82-193 IRON, TIBC, % SAT. (WITHOUT FERRITIN)2018-10-17 06:15:00 Test Item Value Reference Range Comments IRON (BEAKER) (test pyvb=267) 39.0 ug/dL 40.0-160.0 TOTAL IRON BINDING CAPACITY (BEAKER) (test 265 ug/dL 250-450 rbjn=431) IRON % SATURATION (2) (BEAKER) (test qgpj=1381) 15 % 20-55 BASIC METABOLIC [id number] 06:15:00 Test Item Value Reference Range Comments SODIUM (BEAKER) (test 134 meq/L 136-145 mcyc=667) POTASSIUM (BEAKER) (test 4.2 meq/L 3.5-5.1 xzml=755) CHLORIDE (BEAKER) (test 100 meq/L 98-107 xdaq=722) CO2 (BEAKER) (test 26 meq/L 22-29 dyjk=901) BLOOD UREA NITROGEN 64 mg/dL 7-21 (BEAKER) (test uysh=945) CREATININE (BEAKER) (test 3.66 mg/dL 0.57-1.25 fjve=421) GLUCOSE RANDOM (BEAKER) 123 mg/dL 70-105 (test zbgg=283) CALCIUM (BEAKER) (test 8.9 mg/dL 8.4-10.2 akfd=021) EGFR (BEAKER) (test 13 mL/min/1.73 sq m ESTIMATED GFR IS NOT unug=8274) ACCURATE CREATININE CLEARANCE IN PREDICTING GLOMERULAR FILTRATION RATE. ESTIMATED GFR IS NOT APPLICABLE FOR DIALYSIS PATIENTS. PROTHROMBIN TIME/[id number] 05:57:00 Test Item Value Reference Range Comments PROTIME (BEAKER) (test cgmt=492) 16.0 seconds 11.9-14.2 INR (BEAKER) (test iapg=733) 1.4 <=5.9 Effective 09/13/2018: PT Reference Range ChangeNew: 11.9-14.2 Previous: 11.7- 14.7RECOMMENDED COUMADIN/WARFARIN INR THERAPY RANGESSTANDARD DOSE: 2.0-3.0 Includes: PROPHYLAXIS for venous thrombosis, systemic embolization; TREATMENT for venous thrombosis and/or pulmonary embolus.HIGH RISK: Target INR is2.5-3.5 for patients wiht mechanical heart valves.CBC W/PLT COUNT & AUTO [id number] 05:55:00 Test Item Value Reference Range Comments WHITE BLOOD CELL COUNT (BEAKER) (test yxrr=817) 4.4 K/ L 3.5-10.5 RED BLOOD CELL COUNT (BEAKER) (test ojvb=300) 2.40 M/ L 3.93-5.22 HEMOGLOBIN (BEAKER) (test xvsr=471) 6.8 GM/DL 11.2-15.7 HEMATOCRIT (BEAKER) (test xqrg=123) 22.6 % 34.1-44.9 MEAN CORPUSCULAR VOLUME (BEAKER) (test cqjr=903) 94.2 fL 79.4-94.8 MEAN CORPUSCULAR HEMOGLOBIN (BEAKER) (test 28.3 pg 25.6-32.2 hinr=642) MEAN CORPUSCULAR HEMOGLOBIN CONC (BEAKER) (test 30.1 GM/DL 32.2-35.5 bnzg=285) RED CELL DISTRIBUTION WIDTH (BEAKER) (test 15.4 % 11.7-14.4 cgnc=471) PLATELET COUNT (BEAKER) (test xqkl=106) 172 K/CU MM 150-450 MEAN PLATELET VOLUME (BEAKER) (test kaip=921) 11.6 fL 9.4-12.3 NUCLEATED RED BLOOD CELLS (BEAKER) (test 1 /100 WBC 0-0 xagu=121) NEUTROPHILS RELATIVE PERCENT (BEAKER) (test 73 % nwiw=477) LYMPHOCYTES RELATIVE PERCENT (BEAKER) (test 13 % plcr=944) MONOCYTES RELATIVE PERCENT (BEAKER) (test 5 % tagu=384) EOSINOPHILS RELATIVE PERCENT (BEAKER) (test 3 % udry=178) BASOPHILS RELATIVE PERCENT (BEAKER) (test 1 % qbrs=415) NEUTROPHILS ABSOLUTE COUNT (BEAKER) (test 3.18 K/ L 1.56-6.13 hntr=944) LYMPHOCYTES ABSOLUTE COUNT (BEAKER) (test 0.56 K/ L 1.18-3.74 bkrp=749) MONOCYTES ABSOLUTE COUNT (BEAKER) (test 0.23 K/ L 0.24-0.36 nhho=390) EOSINOPHILS ABSOLUTE COUNT (BEAKER) (test 0.14 K/ L 0.04-0.36 qorq=039) BASOPHILS ABSOLUTE COUNT (BEAKER) (test 0.03 K/ L 0.01-0.08 cmfi=588) IMMATURE GRANULOCYTES-RELATIVE PERCENT (BEAKER) 5 % 0-1 (test igzy=7177) TROPONIN [id number] 01:09:00 Test Item Value Reference Range Comments TROPONIN I (BEAKER) (test ghoz=155) 0.03 ng/mL 0.00-0.03 Troponin I (TnI) levels must be interpreted in the context of the presenting symptoms and the clinical findings. Elevated TnI levels indicate myocardial damage, but are not specific for ischemic heart disease. Elevated TnI levels are seen in patients with other cardiac conditions (including myocarditis and congestive heart failure), and slight TnI elevations occur in patients with other conditions, including sepsis, renal failure, acidosis, acute neurological disease, and persistent tachyarrhythmia.OSMOLALITY, [id number] 22:24:00 Test Item Value Reference Range Comments OSMOLALITY URINE (BEAKER) (test okxh=909) 317 mOsm/kg 40-1,400 HEMOGLOBIN [id number] 22:20:00 Test Item Value Reference Range Comments HEMOGLOBIN A1C (BEAKER) (test fuxk=233) 7.2 % 4.3-6.1 URINALYSIS W/ [id number] 22:19:00 Test Item Value Reference Range Comments COLOR (BEAKER) (test uqym=617) Light Yellow CLARITY (BEAKER) (test cfje=051) Clear SPECIFIC GRAVITY UA (BEAKER) (test avfl=800) 1.006 1.001-1.035 PH UA (BEAKER) (test hksv=877) 5.5 5.0-8.0 PROTEIN UA (BEAKER) (test rkwv=828) 30 mg/dL Negative GLUCOSE UA (BEAKER) (test zofp=940) Negative Negative KETONES UA (BEAKER) (test bcfm=236) Negative Negative BILIRUBIN UA (BEAKER) (test cxta=067) Negative Negative BLOOD UA (BEAKER) (test yoqd=888) Negative Negative NITRITE UA (BEAKER) (test asjk=189) Negative Negative LEUKOCYTE ESTERASE UA (BEAKER) (test rrby=026) Negative Negative UROBILINOGEN UA (BEAKER) (test irrw=911) 0.2 mg/dL 0.2-1.0 RBC UA (BEAKER) (test qnbu=379) < /HPF WBC UA (BEAKER) (test ljtt=454) 3 /HPF MUCUS (BEAKER) (test bgpt=5135) Rare SQUAMOUS EPITHELIAL (BEAKER) (test kmcd=315) < /HPF SOURCE(BEAKER) (test clnr=5455) POCT-GLUCOSE [id number] 22:09:00 Test Item Value Reference Range Comments POC-GLUCOSE METER (BEAKER) 171 mg/dL 70-[address] [facility] [address] (test npaa=7440) [facility] [address] PROTEIN, RANDOM [id number] 21:36:00 Test Item Value Reference Range Comments PROTEIN, URINE (BEAKER) (test qeih=7749) 44 mg/dL 0-14 CHLORIDE, RANDOM [id number] 21:30:00 Test Item Value Reference Range Comments CHLORIDE URINE (BEAKER) (test yczf=714) 96 meq/L Reference Range: No NormalsCREATININE, RANDOM [id number] 21:09:00 Test Item Value Reference Range Comments CREATININE URINE (BEAKER) (test qaoc=501) 30.6 mg/dL Reference Range: No NormalsSODIUM, RANDOM [id number] 21:09:00 Test Item Value Reference Range Comments SODIUM URINE (BEAKER) (test etce=754) 90 meq/L Reference Range: No NormalsUREA NITROGEN, RANDOM [id number] 21:09:00 Test Item Value Reference Range Comments UREA NITROGEN URINE (BEAKER) (test zysn=089) 232 mg/dL Reference Range: No NormalsHEPATITIS PANEL, [id number] 20:39:00 Test Item Value Reference Range Comments HEPATITIS A IGM ANTIBODY (BEAKER) (test Nonreactive Nonreactive yaui=957) HEPATITIS B CORE IGM ANTIBODY (BEAKER) (test Nonreactive Nonreactive hcww=710) HEPATITIS C ANTIBODY (BEAKER) (test axjz=594) Nonreactive Nonreactive HEPATITIS B SURFACE ANTIGEN (2) (BEAKER) (test Nonreactive Nonreactive ibby=9321) URINALYSIS W/ REFLEX URINE [id number] 20:12:00 Test Item Value Reference Range Comments COLOR (BEAKER) (test rkce=807) Light Yellow CLARITY (BEAKER) (test fzwn=386) Hazy SPECIFIC GRAVITY UA (BEAKER) (test wjdz=858) 1.006 1.001-1.035 PH UA (BEAKER) (test xgco=817) 5.5 5.0-8.0 PROTEIN UA (BEAKER) (test hbzf=443) 30 mg/dL Negative GLUCOSE UA (BEAKER) (test tlzt=249) Negative Negative KETONES UA (BEAKER) (test wyfr=396) Negative Negative BILIRUBIN UA (BEAKER) (test xmwk=890) Negative Negative BLOOD UA (BEAKER) (test zfwn=446) Negative Negative NITRITE UA (BEAKER) (test uwxw=478) Negative Negative LEUKOCYTE ESTERASE UA (BEAKER) (test ullj=172) Trace Negative UROBILINOGEN UA (BEAKER) (test obaz=693) 0.2 mg/dL 0.2-1.0 RBC UA (BEAKER) (test lfjw=998) < /HPF WBC UA (BEAKER) (test sgip=516) 10 /HPF BACTERIA (BEAKER) (test phjt=222) Rare MUCUS (BEAKER) (test jncc=7699) Rare SQUAMOUS EPITHELIAL (BEAKER) (test lcpe=848) 5 /HPF AMORPHOUS CRYSTALS (BEAKER) (test sdhx=5227) Rare SOURCE(BEAKER) (test qmqi=3161) TROPONIN [id number] 19:15:00 Test Item Value Reference Range Comments TROPONIN I (BEAKER) (test mpsn=514) 0.03 ng/mL 0.00-0.03 Troponin I (TnI) levels must be interpreted in the context of the presenting symptoms and the clinical findings. Elevated TnI levels indicate myocardial damage, but are not specific for ischemic heart disease. Elevated TnI levels are seen in patients with other cardiac conditions (including myocarditis and congestive heart failure), and slight TnI elevations occur in patients with other conditions, including sepsis, renal failure, acidosis, acute neurological disease, and persistent tachyarrhythmia.COMPREHENSIVE METABOLIC [id number] 19:15:00 Test Item Value Reference Range Comments TOTAL PROTEIN (BEAKER) 7.9 gm/dL 6.0-8.3 (test yfgz=351) ALBUMIN (BEAKER) (test 3.7 g/dL 3.5-5.0 bhyw=9125) ALKALINE PHOSPHATASE 89 U/L 40-150 (BEAKER) (test ukwf=209) BILIRUBIN TOTAL (BEAKER) 0.6 mg/dL 0.2-1.2 (test kapa=331) SODIUM (BEAKER) (test 133 meq/L 136-145 zwnl=577) POTASSIUM (BEAKER) (test 4.6 meq/L 3.5-5.1 uolj=739) CHLORIDE (BEAKER) (test 102 meq/L 98-107 tmqc=603) CO2 (BEAKER) (test 21 meq/L 22-29 faoe=996) BLOOD UREA NITROGEN 63 mg/dL 7-21 (BEAKER) (test uhya=384) CREATININE (BEAKER) (test 3.74 mg/dL 0.57-1.25 wccr=210) GLUCOSE RANDOM (BEAKER) 117 mg/dL 70-105 (test skyh=192) CALCIUM (BEAKER) (test 8.6 mg/dL 8.4-10.2 datd=678) AST (SGOT) (BEAKER) (test 1805 U/L 5-34 judw=758) ALT (SGPT) (BEAKER) (test 1232 U/L 6-55 ppqh=944) EGFR (BEAKER) (test 13 mL/min/1.73 sq m ESTIMATED GFR IS NOT gagj=6470) ACCURATE CREATININE CLEARANCE IN PREDICTING GLOMERULAR FILTRATION RATE. ESTIMATED GFR IS NOT APPLICABLE FOR DIALYSIS PATIENTS. CREATINE KINASE (CK)2018-10-16 19:13:00 Test Item Value Reference Range Comments CREATINE KINASE TOTAL (BEAKER) (test xefu=472) 439 U/L 29-200 SALICYLATE [id number] 19:11:00 Test Item Value Reference Range Comments SALICYLATE LEVEL (BEAKER) (test lpwm=186) < mg/dL 15.0-30.0 Therapeutic Range: 15.0-30.0 mg/dLToxic: >30.0 mg/dL Lethal: >70.0 mg/dLACETAMINOPHEN [id number] 19:10:00 Test Item Value Reference Range Comments ACETAMINOPHEN LEVEL (BEAKER) (test kdet=091) < ug/mL 10.0-30.0 Therapeutic Range: 10.0-30.0 g/mLToxic Levels: >200.0 g/mLPROTHROMBIN [id number] 18:59:00 Test Item Value Reference Range Comments PROTIME (BEAKER) (test dyrc=753) 16.7 seconds 11.9-14.2 INR (BEAKER) (test ydjr=426) 1.4 <=5.9 Effective 09/13/2018: PT Reference Range ChangeNew: 11.9-14.2 Previous: 11.7- 14.7RECOMMENDED COUMADIN/WARFARIN INR THERAPY RANGESSTANDARD DOSE: 2.0-3.0 Includes: PROPHYLAXIS for venous thrombosis, systemic embolization; TREATMENT for venous thrombosis and/or pulmonary embolus.HIGH RISK: Target INR is2.5-3.5 for patients wiht mechanical heart valves.CBC W/PLT COUNT & AUTO [id number] 18:52:00 Test Item Value Reference Range Comments WHITE BLOOD CELL COUNT (BEAKER) (test wegb=166) 4.9 K/ L 3.5-10.5 RED BLOOD CELL COUNT (BEAKER) (test qrpu=173) 2.42 M/ L 3.93-5.22 HEMOGLOBIN (BEAKER) (test jpwy=036) 7.2 GM/DL 11.2-15.7 HEMATOCRIT (BEAKER) (test ktdo=752) 22.7 % 34.1-44.9 MEAN CORPUSCULAR VOLUME (BEAKER) (test rntq=803) 93.8 fL 79.4-94.8 MEAN CORPUSCULAR HEMOGLOBIN (BEAKER) (test 29.8 pg 25.6-32.2 mvxe=020) MEAN CORPUSCULAR HEMOGLOBIN CONC (BEAKER) (test 31.7 GM/DL 32.2-35.5 zwsk=484) RED CELL DISTRIBUTION WIDTH (BEAKER) (test 15.3 % 11.7-14.4 gwpe=224) PLATELET COUNT (BEAKER) (test diuf=611) 166 K/CU MM 150-450 MEAN PLATELET VOLUME (BEAKER) (test wkwg=134) 11.6 fL 9.4-12.3 NUCLEATED RED BLOOD CELLS (BEAKER) (test 2 /100 WBC 0-0 ftip=771) NEUTROPHILS RELATIVE PERCENT (BEAKER) (test 83 % ozty=456) LYMPHOCYTES RELATIVE PERCENT (BEAKER) (test 6 % bmqk=693) MONOCYTES RELATIVE PERCENT (BEAKER) (test 5 % mpzp=971) EOSINOPHILS RELATIVE PERCENT (BEAKER) (test 2 % avgw=299) BASOPHILS RELATIVE PERCENT (BEAKER) (test 0 % otvg=572) NEUTROPHILS ABSOLUTE COUNT (BEAKER) (test 4.02 K/ L 1.56-6.13 lywz=989) LYMPHOCYTES ABSOLUTE COUNT (BEAKER) (test 0.28 K/ L 1.18-3.74 xlyj=231) MONOCYTES ABSOLUTE COUNT (BEAKER) (test 0.23 K/ L 0.24-0.36 cbep=641) EOSINOPHILS ABSOLUTE COUNT (BEAKER) (test 0.11 K/ L 0.04-0.36 vdbj=307) BASOPHILS ABSOLUTE COUNT (BEAKER) (test 0.01 K/ L 0.01-0.08 fbvk=615) IMMATURE GRANULOCYTES-RELATIVE PERCENT (BEAKER) 5 % 0-1 (test zibw=0209) GLUCOMETER GLUCOSE- LAB USE [id number] 06:59:00 Test Item Value Reference Range Comments GLUCOMETER (test code=GMG) 219 mg/dL 70-100 DR YORK AWAREMeter ID: [id number]: [id number] LANA HICKEY GLUCOMETER GLUCOSE- LAB USE [id number] 04:45:00 Test Item Value Reference Range Comments GLUCOMETER (test code=GMG) 212 mg/dL 70-100 Meter ID: [id number]: [id number] PINEDA CAN
[2018-12-22] MEDS ORDERED: MORPHINE 4 MG/ML SYR ONE ×2 (15:03→19:25)
[2018-12-22] MEDS ORDERED: ONDANSETRON 4 MG/2 ML VIAL ONE (15:03)
[2018-12-22] MEDS ORDERED: NA CHLORIDE 0.9% 1,000 ML ONE ×2 (15:04→15:36)
[2018-12-22 15:11] LABS: Absolute Lymphocytes (CBC) 1.6 K/uL (0.7-4.9); Basophils % 0.9 % (0-1.3); Hematocrit 29.3 % (36.0-45.0); Lymphocytes % 18.1 % (15.3-44.8); MPV 9.1 fL (7.6-11.3); RBC Red Blood Cell Count 3.41 M/uL (3.86-4.86)
[2018-12-22 15:21] LABS: Urine Blood TRACE (NEG); Urine Glucose 2+ (NEG); Urine Protein 3+ (NEG); Urine Specific Gravity 1.025 (1.005-1.030)
[2018-12-22 15:35] LABS: ALT/SGPT 19 U/L (12-78); AST/SGOT 10 U/L (15-37); Albumin 3.9 g/dL (3.4-5.0); Alkaline Phosphatase 81 U/L (45-117); BUN Blood Urea Nitrogen 69 mg/dL (7-18); Bicarbonate 22 mmol/L (21-32); Bilirubin Direct < 0.1 mg/dL (0-0.2); Bilirubin Total 0.3 mg/dL (0.2-1.0); Glucose Level 299 mg/dL (74-106); Lipase 1060 U/L (73-393); Potassium 4.1 mmol/L (3.5-5.1); Protein, Total 9.7 g/dL (6.4-8.2); Sodium Level 131 mmol/L (136-145)
[2018-12-22] MEDS ORDERED: FAMOTIDINE 20 MG/2 ML VIAL IV ONE (15:35)
[2018-12-22 15:51] LABS: Protime INR 0.89
[2018-12-22 15:56] LABS: Magnesium 1.9 mg/dL (1.8-2.4); NT PRO-BNP 285 pg/mL (<125); Troponin (Emerg Dept Use Only) < 0.02 ng/mL (0.0-0.045)
[2018-12-22] MEDS ORDERED: CEFTRIAXONE/SWI 1gm 1 GM/10 ML SYR ONE (17:50)
--- NOTE | 2018-12-22 17:58 | ER ---
Nurse's Notes [facility] Name: Emily Barbour Age: 48 yrs Sex: Female : 1970 Arrival Date: 12/22/2018 Time: 13:57 Bed 19 Private MD: Diagnosis: Abdominal tenderness;Nausea;Unspecified kidney failure-CHRONIC;Acute pancreatitis;Urinary tract infection, site not specified Presentation: 12/22 14:39 Presenting complaint: Patient states: epigastric pain for the past 2 days that worse aj1 with eating. Reports nausea. Denies V/D. Transition of care: patient was not received from another setting of care. Onset of symptoms was December 20, 2018. Risk Assessment: Do you want to hurt yourself or someone else? Patient reports no desire to harm self or others. Initial Sepsis Screen: Does the patient meet any 2 criteria? HR > 90 bpm. No. Patient's initial sepsis screen is negative. Does the patient have a suspected source of infection? Yes: Acute abdominal pain. Care prior to arrival: None. 14:39 Method Of Arrival: Ambulatory aj1 14:39 Acuity: [place] 3 aj1 Triage Assessment: 14:40 General: Appears in no apparent distress. uncomfortable, Behavior is calm, cooperative, aj1 appropriate for age. Pain: Complains of pain in epigastric area. Neuro: Level of Consciousness is awake, alert, obeys commands. Cardiovascular: Patient's skin is warm and dry. Respiratory: Airway is patent Respiratory effort is even, unlabored, Respiratory pattern is regular, symmetrical. GI: Reports upper abdominal pain. 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 BID [Active]; fenofibrate 160 mg Oral tab 1 tab once daily [Active]; furosemide 40 mg Oral tab 1 tab 2 times per day [Active]; Humalog 100 unit/mL Sub-Q soln 20 unit three times a day [Active]; Iron CR 325 Oral twice a day [Active]; magnesium oxide 500 mg Oral cap twice a day [Active]; pantoprazole 40 mg Oral TbEC 1 tab once daily [Active]; Toujeo SoloStar 300 unit/mL (1.5 mL) subcutaneous inpn 40 unit every morning [Active]; Victoza 3-Raghu subcutaneous 1.8 unit nightly [Active]; - PMHx: 14:40 Anemia; Diabetes - IDDM; High Cholesterol; Hypertension; Renal Disease; Tendonitis in aj1 Elbows; - Immunization history:: Adult Immunizations. - Ebola Screening: : Patient denies travel to an Ebola-affected area in the 21 days before illness onset. - Family history:: not pertinent. - Social history:: Smoking status: . Screenin:42 Abuse screen: Denies threats or abuse. Nutritional screening: No deficits noted. tw2 Tuberculosis screening: No symptoms or risk factors identified. Fall Risk None identified. Assessment: 15:00 General: Appears uncomfortable, Behavior is crying. Pain:. tw2 15:00 Neuro: Level of Consciousness is awake, alert, obeys commands, Oriented to person, tw2 place, time, situation. Cardiovascular: Heart tones S1 S2 Patient's skin is warm and dry. Respiratory: Airway is patent Respiratory effort is even, unlabored, Respiratory pattern is regular, symmetrical, Breath sounds are clear bilaterally. GI: Abdomen is round obese, Bowel sounds present X 4 quads. Abd is soft X 4 quads Reports upper abdominal pain, bloating, nausea. : No signs and/or symptoms were reported regarding the genitourinary system. EENT: No signs and/or symptoms were reported regarding the EENT system. Derm: No signs and/or symptoms reported regarding the dermatologic system. Musculoskeletal: Range of motion: intact in all extremities. 15:48 Reassessment: Patient appears in no apparent distress at this time. Patient and/or tw2 family updated on plan of care and expected duration. Pain level reassessed. Patient is alert, oriented x 3, equal unlabored respirations, skin warm/dry/pink. 15:48 Reassessment: Patient states feeling better. tw2 16:39 Reassessment: Patient appears in no apparent distress at this time. Patient and/or tw2 family updated on plan of care and expected duration. Pain level reassessed. Patient is alert, oriented x 3, equal unlabored respirations, skin warm/dry/pink. pain still rated at "5 or 5.5" Patient states feeling better. 17:37 Reassessment: pt is in CT at this time. not available for vs. tw2 17:39 Reassessment: Patient appears in no apparent distress at this time. Patient and/or tw2 family updated on plan of care and expected duration. Pain level reassessed. Patient is alert, oriented x 3, equal unlabored respirations, skin warm/dry/pink. pt back from imaging at this time. Patient states feeling better. 18:30 Reassessment: Patient appears in no apparent distress at this time. Patient and/or tw2 family updated on plan of care and expected duration. Pain level reassessed. Patient is alert, oriented x 3, equal unlabored respirations, skin warm/dry/pink. 19:14 Reassessment: Patient appears in no apparent distress at this time. Patient and/or cc3 family updated on plan of care and expected duration. Pain level reassessed. Patient is alert, oriented x 3, equal unlabored respirations, skin warm/dry/pink. Received this female patient from morning shift JOCY Hill as a case of abdominal pain for admission awaiting admission orders. With IV cannula gauge 20 at the right ACV with ongoing 3rd liter of NS bolus. General: Appears in no apparent distress. uncomfortable, Behavior is calm, cooperative, appropriate for age. Pain: Complains of pain in right upper quadrant Pain currently is 6 out of 10 on a pain scale. Neuro: Level of Consciousness is awake, alert, obeys commands, Oriented to person, place, time, situation, Appropriate for age. Cardiovascular: Denies chest pain, Capillary refill < 3 seconds Patient's skin is warm and dry. Respiratory: Airway is patent Respiratory effort is even, unlabored, Respiratory pattern is regular, symmetrical. GI: Abdomen is round obese. : No signs and/or symptoms were reported regarding the genitourinary system. EENT: No signs and/or symptoms were reported regarding the EENT system. Derm: Skin is intact, is healthy with good turgor, Skin is pink, warm \\T\\ dry. normal. Musculoskeletal: Circulation, motion, and sensation intact. Range of motion: intact in all extremities. 20:30 Reassessment: Patient appears in no apparent distress at this time. Patient and/or cc3 family updated on plan of care and expected duration. Pain level reassessed. Patient is alert, oriented x 3, equal unlabored respirations, skin warm/dry/pink. Dr. Buenrostro called and ordered for stat Triglycerides level because if the result is high he said the patient will go to ICU instead, charge nurse Erika informed. 21:19 Reassessment: Patient appears in no apparent distress at this time. Patient and/or cc3 family updated on plan of care and expected duration. Pain level reassessed. Patient is alert, oriented x 3, equal unlabored respirations, skin warm/dry/pink. Triglycerides level of 536, relayed to Dr. Buenrostro and he said patient can go to the floors and doesn't need ICU admission, charge nurse Erika informed. Room available to 430, report called and handed over to JOCY Sierra for continuity of care and management. Patient denies pain at this time. Patient states feeling better. Patient states symptoms have improved. 21:45 Reassessment: Patient appears in no apparent distress at this time. Patient and/or cc3 family updated on plan of care and expected duration. Pain level reassessed. Patient is alert, oriented x 3, equal unlabored respirations, skin warm/dry/pink. Patient left ER for admission vitally stable by wheelchair escorted by clinical support techstevie Coley. No valuables left in the patient's room. Patient denies pain at this time. Patient states feeling better. Patient states symptoms have improved. Vital Signs: 14:40 BP 135 / 70; Pulse 94; Resp 20; Temp 98.6; Pulse Ox 100% on R/A; Height 5 ft. 5 in. aj1 (165.10 cm) (R); Pain 8/10; 15:31 Pain 5/10; tw2 15:49 BP 141 / 73; Pulse 87; Resp 17; Pulse Ox 100% on R/A; Pain 5/10; tw2 16:40 BP 161 / 88; Pulse 85; Resp 17; Pulse Ox 95% on R/A; tw2 17:40 BP 152 / 79; Pulse 81; Resp 17; Pulse Ox 99% on R/A; tw2 18:30 BP 154 / 80; Pulse 79; Resp 17; Pulse Ox 98% on R/A; tw2 19:12 BP 148 / 80; Pulse 79; Resp 17 S; Temp 98.1(O); Pulse Ox 98% on R/A; cc3 20:23 BP 128 / 82; Pulse 71; Resp 18 S; Pulse Ox 97% on R/A; cc3 21:30 BP 109 / 45; Pulse 75; Resp 16 S; Pulse Ox 98% on R/A; cc3 ED Course: 13:57 Patient arrived in ED. as 14:40 Triage completed. aj1 14:40 Arm band placed on Patient placed in an exam room. aj1 14:40 Bed in low position. Call light in reach. tram inspector on. Pulse ox on. NIBP on. tw2 14:48 Darrick Rey MD is Attending Physician. elaina 14:53 Liz Diane RN is Primary Nurse. tw2 15:58 XRAY Chest (1 view) In Process Unspecified. EDMS 16:04 X-ray completed. Portable x-ray completed in exam room. jr1 16:41 EKG done, by avionics test technician. reviewed by Darrcik Rey MD. 3 17:34 CT completed. Patient tolerated procedure well. Patient moved to CT via wheelchair. nj Patient moved back from CT. 17:38 Abdomen In Process Unspecified. EDMS 18:23 Kathie Choi MD is Hospitalizing Provider. elaina 19:07 Report given to JOCY Tolentino - pending is NS at 125. tw2 21:19 No provider procedures requiring assistance completed. Patient admitted, IV remains in cc3 place. Administered Medications: 15:06 Drug: Zofran 4 mg Route: IVP; Site: right antecubital; tw2 15:47 Follow up: Response: No adverse reaction tw2 15:08 Drug: morphine 4 mg Route: IVP; Site: right antecubital; tw2 15:31 Follow up: Pain 5/10 Adult; Response: No adverse reaction; Pain is decreased; RASS: tw2 Alert and Calm (0) 15:10 Drug: NS 0.9% 1000 ml Route: IV; Rate: 1 bolus; Site: right antecubital; tw2 17:37 Follow up: Response: No adverse reaction; IV Status: Completed infusion; IV Intake: tw2 1000ml 15:47 Drug: NS 0.9% 1000 ml Route: IV; Rate: 1 bolus; Site: right antecubital; tw2 17:10 Follow up: IV Status: Completed infusion; IV Intake: 1000ml tw2 15:47 Drug: Pepcid 20 mg Route: IVP; Site: right antecubital; tw2 17:36 Follow up: Response: No adverse reaction tw2 18:00 Drug: Rocephin 1 grams Route: IV; Rate: per protocol; Site: right antecubital; tw2 18:05 Follow up: Response: No adverse reaction; IV Status: Completed infusion tw2 18:58 Drug: NS 0.9% 1000 ml Route: IV; Rate: 1 bolus; Site: right antecubital; tw2 20:15 Follow up: Response: No adverse reaction; IV Status: Completed infusion; IV Intake: cc3 1000ml 19:25 Drug: morphine 4 mg {Note: RASS 0.} Route: IVP; Site: right antecubital; cc3 20:20 Follow up: Response: No adverse reaction; Pain is decreased; RASS: Alert and Calm (0) cc3 20:20 Drug: NS 0.9% 1000 ml Route: IV; Rate: 125 ml/hr; Site: right antecubital; cc3 20:30 Follow up: Response: No adverse reaction; IV Status: Infusion continued upon admission cc3 Intake: 17:10 IV: 1000ml; Total: 1000ml. tw2 17:37 IV: 1000ml; Total: 2000ml. tw2 20:15 IV: 1000ml; Total: 3000ml. cc3 Outcome: 17:58 ER care complete, transfer ordered by . [facility] 18:26 Decision to Hospitalize by Provider. elaina 21:19 Admitted to Tele accompanied by tech, family with patient, via wheelchair, room 430, cc3 with chart, Report called to JOCY Sierra 21:19 Condition: stable 21:19 Instructed on the need for admit, Demonstrated understanding of instructions. 22:03 Patient left the ED. cc3 Signatures: Dispatcher [employer] Colleen Dacosta, RN RN aj1 Darrick Rey MD MD cha Ringgold, Clara Jefferson Tara, RN RN tw2 Mickey Quispe Shakira [facility] Cordel, Randa cc3 Corrections: (The following items were deleted from the chart) 16:41 15:00 General: Appears uncomfortable, Behavior is crying, tw2 tw2 19:06 17:40 Pulse 81bpm; Resp 17bpm; Pulse Ox 99% RA; tw2 tw2 12/23 00:51 09 21:45 Reassessment: Patient appears in no apparent distress at this time. Patient cc3 and/or family updated on plan of care and expected duration. Pain level reassessed. Patient is alert, oriented x 3, equal unlabored respirations, skin warm/dry/pink. cc3
--- NOTE | 2018-12-22 17:59 | EDPHYS ---
Physician Documentation [facility] Name: Emily Barbour Age: 48 yrs Sex: Female : 1970 Arrival Date: 12/22/2018 Time: 13:57 Bed 19 Private MD: ED Physician Darrick Rey HPI: 12/22 15:31 This 48 yrs old Female presents to ER via Ambulatory with complaints of elaina Abdominal Pain. 15:31 The patient presents with abdominal pain in the epigastric area, in the upper abdomen, elaina abdominal distention in the epigastric area, in the upper abdomen. Onset: The symptoms/episode began/occurred 2 day(s) ago. The symptoms do not radiate. Associated signs and symptoms: none. The symptoms are described as constant, crampy, dull. Modifying factors: The symptoms are alleviated by nothing, the symptoms are aggravated by food, movement, pressure. Severity of pain: At its worst the pain was moderate in the emergency department the pain is unchanged. The patient has not experienced similar symptoms in the past. SEO ASSOCIATE: 14:40 LMP N/A - Hysterectomy aj1 Historical: - Allergies: 14:40 Benadryl; aj1 14:40 metformin; aj1 14:40 Tradjenta; aj1 - Home Meds: 17:39 amitriptyline 100 mg Oral tab 1 tab nightly [Active]; B12 2500 mcg daily [Active]; tw2 Cymbalta 30 mg Oral cpDR 1 cap every morning [Active]; D3 2000 I.U. BID [Active]; fenofibrate 160 mg Oral tab 1 tab once daily [Active]; furosemide 40 mg Oral tab 1 tab 2 times per day [Active]; Humalog 100 unit/mL Sub-Q soln 20 unit three times a day [Active]; Iron CR 325 Oral twice a day [Active]; magnesium oxide 500 mg Oral cap twice a day [Active]; pantoprazole 40 mg Oral TbEC 1 tab once daily [Active]; Toujeo SoloStar 300 unit/mL (1.5 mL) subcutaneous inpn 40 unit every morning [Active]; Victoza 3-Raghu subcutaneous 1.8 unit nightly [Active]; - PMHx: 14:40 Anemia; Diabetes - IDDM; High Cholesterol; Hypertension; Renal Disease; Tendonitis in aj1 Elbows; - Immunization history:: Adult Immunizations. - Ebola Screening: : Patient denies travel to an Ebola-affected area in the 21 days before illness onset. - Family history:: not pertinent. - Social history:: Smoking status: . ROS: 15:31 Constitutional: Negative for fever, chills, and weight loss, Eyes: Negative for injury, elaina pain, redness, and discharge, ENT: Negative for injury, pain, and discharge, Neck: Negative for injury, pain, and swelling, Cardiovascular: Negative for chest pain, palpitations, and edema, Respiratory: Negative for shortness of breath, cough, wheezing, and pleuritic chest pain, Back: Negative for injury and pain, : Negative for injury, bleeding, discharge, and swelling, MS/Extremity: Negative for injury and deformity, Skin: Negative for injury, rash, and discoloration, Neuro: Negative for headache, weakness, numbness, tingling, and seizure. 15:31 Abdomen/GI: Positive for abdominal pain, of the epigastric area, right upper quadrant and left upper quadrant. Exam: 15:31 Constitutional: This is a well developed, well nourished patient who is awake, alert, elaina and in no acute distress. Head/Face: Normocephalic, atraumatic. Eyes: Pupils equal round and reactive to light, extra-ocular motions intact. Lids and lashes normal. Conjunctiva and sclera are non-icteric and not injected. Cornea within normal limits. Periorbital areas with no swelling, redness, or edema. ENT: Nares patent. No nasal discharge, no septal abnormalities noted. Tympanic membranes are normal and external auditory canals are clear. Oropharynx with no redness, swelling, or masses, exudates, or evidence of obstruction, uvula midline. Mucous membranes moist. Neck: Trachea midline, no thyromegaly or masses palpated, and no cervical lymphadenopathy. Supple, full range of motion without nuchal rigidity, or vertebral point tenderness. No Meningismus. Chest/axilla: Normal chest wall appearance and motion. Nontender with no deformity. No lesions are appreciated. Cardiovascular: Regular rate and rhythm with a normal S1 and S2. No gallops, murmurs, or rubs. Normal PMI, no JVD. No pulse deficits. Respiratory: Lungs have equal breath sounds bilaterally, clear to auscultation and percussion. No rales, rhonchi or wheezes noted. No increased work of breathing, no retractions or nasal flaring. Back: No spinal tenderness. No costovertebral tenderness. Full range of motion. Skin: Warm, dry with normal turgor. Normal color with no rashes, no lesions, and no evidence of cellulitis. MS/ Extremity: Pulses equal, no cyanosis. Neurovascular intact. Full, normal range of motion. Neuro: Awake and alert, GCS 15, oriented to person, place, time, and situation. Cranial nerves II-XII grossly intact. Motor strength 5/5 in all extremities. Sensory grossly intact. Cerebellar exam normal. Normal gait. Psych: Awake, alert, with orientation to person, place and time. Behavior, mood, and affect are within normal limits. 15:31 Abdomen/GI: Inspection: distension, Bowel sounds: normal, Palpation: mild abdominal tenderness, moderate abdominal tenderness, in the epigastric area, right upper quadrant and left upper quadrant, Liver: no appreciated palpable abnormalities, Hernia: not appreciated. Vital Signs: 14:40 BP 135 / 70; Pulse 94; Resp 20; Temp 98.6; Pulse Ox 100% on R/A; Height 5 ft. 5 in. aj1 (165.10 cm) (R); Pain 8/10; 15:31 Pain 5/10; tw2 15:49 BP 141 / 73; Pulse 87; Resp 17; Pulse Ox 100% on R/A; Pain 5/10; tw2 16:40 BP 161 / 88; Pulse 85; Resp 17; Pulse Ox 95% on R/A; tw2 17:40 BP 152 / 79; Pulse 81; Resp 17; Pulse Ox 99% on R/A; tw2 18:30 BP 154 / 80; Pulse 79; Resp 17; Pulse Ox 98% on R/A; tw2 19:12 BP 148 / 80; Pulse 79; Resp 17 S; Temp 98.1(O); Pulse Ox 98% on R/A; cc3 20:23 BP 128 / 82; Pulse 71; Resp 18 S; Pulse Ox 97% on R/A; cc3 21:30 BP 109 / 45; Pulse 75; Resp 16 S; Pulse Ox 98% on R/A; cc3 MDM: 14:48 Patient medically screened. [facility] 15:34 Data reviewed: vital signs, nurses notes, lab test result(s), EKG, radiologic studies, [facility] CT scan, plain films. 12/22 14:53 Order name: Basic Metabolic Panel; Complete Time: 17:33 [facility] 12/22 14:53 Order name: CBC with Diff; Complete Time: 15:30 2 12/22 14:53 Order name: Creatinine for Radiology; Complete Time: 15:30 [facility] 12/22 14:53 Order name: Hepatic Function; Complete Time: 17:33 [facility] 12/22 14:53 Order name: Lipase; Complete Time: 17:33 [facility] 12/22 14:57 Order name: Urine Dipstick--Ancillary (enter results); Complete Time: 15:30 12/22 15:30 Order name: Magnesium; Complete Time: 17:33 [facility] 12/22 15:30 Order name: NT PRO-BNP; Complete Time: 17:33 [facility] 12/22 15:30 Order name: PT-INR; Complete Time: 17:33 [facility] 12/22 15:30 Order name: Troponin (emerg Dept Use Only); Complete Time: 17:33 [facility] 12/22 15:30 Order name: XRAY Chest (1 view) [facility] 12/22 20:32 Order name: Misc. Lab Test bb 12/22 21:06 Order name: Triglycerides Level [facility] 12/22 21:17 Order name: LDL, Direct [facility] 12/22 14:53 Order name: IV Saline Lock; Complete Time: 15:02 [facility] 12/22 14:53 Order name: Labs collected and sent; Complete Time: 15:02 [facility] 12/22 15:30 Order name: EKG; Complete Time: 15:31 [facility] 12/22 15:30 Order name: Cardiac monitoring; Complete Time: 15:31 [facility] 12/22 15:30 Order name: EKG - Nurse/Tech; Complete Time: 18:10 [facility] 12/22 15:48 Order name: Abdomen [facility] 12/22 15:30 Order name: O2 Per Protocol; Complete Time: 15:31 [facility] 12/22 15:30 Order name: O2 Sat Monitoring; Complete Time: 15:31 [facility] Administered Medications: 15:06 Drug: Zofran 4 mg Route: IVP; Site: right antecubital; tw2 15:47 Follow up: Response: No adverse reaction tw2 15:08 Drug: morphine 4 mg Route: IVP; Site: right antecubital; tw2 15:31 Follow up: Pain 5/10 Adult; Response: No adverse reaction; Pain is decreased; RASS: tw2 Alert and Calm (0) 15:10 Drug: NS 0.9% 1000 ml Route: IV; Rate: 1 bolus; Site: right antecubital; tw2 17:37 Follow up: Response: No adverse reaction; IV Status: Completed infusion; IV Intake: tw2 1000ml 15:47 Drug: NS 0.9% 1000 ml Route: IV; Rate: 1 bolus; Site: right antecubital; tw2 17:10 Follow up: IV Status: Completed infusion; IV Intake: 1000ml tw2 15:47 Drug: Pepcid 20 mg Route: IVP; Site: right antecubital; tw2 17:36 Follow up: Response: No adverse reaction tw2 18:00 Drug: Rocephin 1 grams Route: IV; Rate: per protocol; Site: right antecubital; tw2 18:05 Follow up: Response: No adverse reaction; IV Status: Completed infusion tw2 18:58 Drug: NS 0.9% 1000 ml Route: IV; Rate: 1 bolus; Site: right antecubital; tw2 20:15 Follow up: Response: No adverse reaction; IV Status: Completed infusion; IV Intake: cc3 1000ml 19:25 Drug: morphine 4 mg {Note: RASS 0.} Route: IVP; Site: right antecubital; cc3 20:20 Follow up: Response: No adverse reaction; Pain is decreased; RASS: Alert and Calm (0) cc3 20:20 Drug: NS 0.9% 1000 ml Route: IV; Rate: 125 ml/hr; Site: right antecubital; cc3 20:30 Follow up: Response: No adverse reaction; IV Status: Infusion continued upon admission cc3 Disposition: 12/22/18 18:26 Hospitalization ordered by Kathie Choi for Inpatient Admission. Preliminary diagnosis are Abdominal tenderness, Nausea, Unspecified kidney failure - CHRONIC, Acute pancreatitis, Urinary tract infection, site not specified. - Bed requested for Telemetry/MedSurg (Inpatient). - Status is Inpatient Admission. cc3 - Condition is Fair. - Problem is new. - Symptoms have improved. UTI on Admission? Yes Signatures: Dispatcher [employer] [facility] Colleen Means RN RN aj1 Darrick Rey MD MD cha Garcia, Cindy, RN RN Liz Diane RN RN tw2 Randa Celeste cc3 Corrections: (The following items were deleted from the chart) 15:48 15:32 Abdomen Pelvis W Con+CT.RAD.BRZ ordered. [facility] 17:58 17:58 12/22/2018 17:58 Transfer ordered to [facility]. Diagnosis is elaina Abdominal tenderness; Nausea; Unspecified kidney failure - CHRONIC; Acute pancreatitis. Reason for transfer: Higher level of care. Accepting physician is TO [facility], ABDOMINAL PAIN, PANCREATITIS. Condition is Stable. Problem is new. Symptoms have improved. [facility] 18:23 17:58 12/22/2018 17:58 Transfer ordered to [facility]. Diagnosis is elaina Abdominal tenderness; Nausea; Unspecified kidney failure - CHRONIC; Acute pancreatitis; Urinary tract infection, site not specified. Reason for transfer: Higher level of care. Accepting physician is TO [facility], ABDOMINAL PAIN, PANCREATITIS. Condition is Stable. Problem is new. Symptoms have improved. [facility] 19:51 18:26 Hospitalization Ordered by Kathie Choi MD for Inpatient Admission. Preliminary cg diagnosis is Abdominal tenderness; Nausea; Unspecified kidney failure - CHRONIC; Acute pancreatitis; Urinary tract infection, site not specified. Bed requested for Telemetry/MedSurg (Inpatient). Status is Inpatient Admission. Condition is Fair. Problem is new. Symptoms have improved. UTI on Admission? Yes. [facility] 22:03 19:51 12/22/2018 18:26 Hospitalization Ordered by Kathie Choi MD for Inpatient cc3 Admission. Preliminary diagnosis is Abdominal tenderness; Nausea; Unspecified kidney failure - CHRONIC; Acute pancreatitis; Urinary tract infection, site not specified. Bed requested for Telemetry/MedSurg (Inpatient). Status is Inpatient Admission. Condition is Fair. Problem is new. Symptoms have improved. UTI on Admission? Yes.
--- NOTE | 2018-12-22 18:14 | RAD REPORT ---
EXAM DESCRIPTION: CT - Abdomen Pelvis Wo Contrast - 12/22/2018 5:36 pm CLINICAL HISTORY: Abdominal pain COMPARISON: 2018 TECHNIQUE: Computed axial tomography of the abdomen and pelvis was obtained. IV was not requested. O ral contrast was given. Coronal reconstructions performed. All CT scans are performed using dose optimization technique as appropriate and may include automated exposure control or mA/KV adjustment according to patient size. FINDINGS: The evaluation of solid organs and vessels is limited secondary to the lack of contrast a dministration. Mild splenomegaly Pancreas, adrenals and kidneys appear grossly normal. Cholecystectomy Hysterectomy. Small right ovarian cyst without significant free-fluid There is no evidence of diverticulitis. IMPRESSION: Mild hepatosplenomegaly
--- NOTE | 2018-12-22 18:15 | RAD REPORT ---
EXAM DESCRIPTION: Cece Single View12/22/2018 3:57 pm CLINICAL HISTORY: Abdominal pain COMPARISON: October 2018 FINDINGS: The lungs appear clear of acute infiltrate. The heart is normal size IMPRESSION: No acute abnormalities displayed
[2018-12-22] MEDS ORDERED: NA CHLORIDE 0.9% 2,000 ML ONE (18:45)
--- NOTE | 2018-12-22 19:57 | P.HP ---
Certification for Inpatient Patient admitted to: Inpatient With expected LOS: >2 Midnights Patient will require the following post-hospital care: None Practitioner: I am a practitioner with admitting privileges, knowledge of patient current condition, hospital course, and medical plan of care. Services: Services provided to patient in accordance with Admission requirements found in Title 42 Section 412.3 of the Code of Federal Regulations Patient History Date of Service: 12/22/18 Primary Care Provider: PCP/Nephrology-Dr. Cameron Reason for admission: Epigastric abdominal pain History of Present Illness: 48-year-old female presented to the emergency room with epigastric abdominal pain over the last 3-5 days. Patient with underlying chronic renal disease stage IV, diabetes mellitus type 2 insulin dependent, hypertension and former tobacco use. Patient reports abdominal pain to the epigastric region over the last 3-4 days. It is a been associated with nausea and vomiting. She denies any significant chest pain, shortness of breath or fever. Pain does not radiate. She has had poor appetite since that time. Her symptoms did not improve therefore she came to the ER for further evaluation. In the ER patient evaluated. Blood pressure stable. White count 9.2, hemoglobin 10. Platelet count of 215. Sodium 131,, BUN of 869, creatinine 2.9 with a GFR of 17. Glucose 299. Total bilirubin within normal range. AST and ALT both within normal range. Lipase level elevated around 1060. Troponin unremarkable. CT of the abdomen showed mild hepatosplenomegaly. Pancreas appeared stable without inflammation. Chest x-ray unremarkable. Patient admitted for acute pancreatitis to further evaluate and treat. When I saw the patient in the ER, she appeared stable. Pain slightly improved. Patient without nausea and vomiting. Patient reports that she does not drink heavily. She reports of daughter recently ill with a stomach virus. She denied any fever, chills. Allergies metformin Allergy (Verified 08/22/16 19:56) Unknown diphenhydramine HCl [From Benadryl] Adverse Reaction (Verified 08/22/16 15:45) Nausea/Vomiting linagliptin [From Tradjenta] Adverse Reaction (Verified 08/22/16 15:45) weight loss TRIGENTA Adverse Reaction (Severe, Uncoded 08/22/16 19:57) Nausea/Vomiting Home medications list reviewed: Yes Home Medications: Amitriptyline [Elavil*] 100 mg PO BEDTIME 09/03/17 Cholecalciferol (Vitamin D3) [Vitamin D3] 1 tab PO DAILY 09/03/17 Cyanocobalamin (Vitamin B-12) [Vitamin B12] 1 tab PO DAILY 09/03/17 Duloxetine [Cymbalta *] 30 mg PO DAILY 09/03/17 Fenofibrate [Tricor*] 160 mg PO DAILY 09/03/17 Ferrous Sulfate [Iron] 325 mg PO DAILY 09/03/17 Furosemide [Lasix*] 40 mg PO BID 09/03/17 Insulin Glargine,Hum.rec.anlog [Toujeo Solostar] 40 units SQ AC 09/03/17 Insulin Lispro [Humalog*] 20 units SQ TID 09/03/17 Liraglutide [Victoza 2-Raghu] 1.8 units SQ BEDTIME 09/03/17 Magnesium Oxide [Magnesium] 500 mg PO DAILY 09/03/17 Melatonin/Pyridoxine HCl (B6) [Melatonin 3 mg Tablet] 3 mg PO BEDTIME 09/03/17 Pantoprazole [Protonix Tab*] 40 mg PO DAILY 09/03/17 Gabapentin [Neurontin*] 600 mg PO DAILYPRN PRN 09/04/17 Ciprofloxacin HCl [Cipro 250 MG Tablet*] 250 mg PO BID #14 tab 09/05/17 Lactobacillus Acidophilus [Acidophilus] 1 each PO TID #30 capsule 09/05/17 metroNIDAZOLE [Flagyl] 500 mg PO Q8H #21 tablet 09/05/17 - Past Medical/Surgical History Diabetic: Yes -: Hypertension -: Hypertriglyceridemia -: Diabetes mellitus type 2 -: Diabetic neuropathy -: Anemia of chronic disease -: Recurrent UTI -: Chronic renal disease, stage IV -: Irritable bowel syndrome-diarrhea -: Osteoarthritis -: Former smoker -: Cholecystectomy -: Appendectomy -: Hysterectomy -: Tubal ligation -: Breast reduction -: Adenoidectomy Psychosocial/ Personal History: Patient is for 30 years, she has 3 children, she works at [employer]. - Family History Father -: Stroke, Cancer Mother -: Heart disease, Diabetes - Social History Smoking Status: Former smoker Alcohol use: Yes CD- Drugs: No Caffeine use: Yes Place of Residence: Home Review of Systems General: As per HPI Eyes: Unremarkable ENT: Unremarkable Respiratory: Unremarkable Cardiovascular: Unremarkable Gastrointestinal: Nausea, Vomiting, Abdominal Pain, Constipation, As per HPI Genitourinary: Unremarkable Musculoskeletal: Unremarkable Integumentary: Unremarkable Neurological: Unremarkable Lymphatics: Unremarkable Physical Examination - Physical Exam General: Alert, In no apparent distress, Oriented x3, Cooperative HEENT: Atraumatic, Normocephalic, PERRLA, Other (Dry mucous membranes) Neck: Supple, No Thyromegaly Respiratory: Clear to auscultation bilaterally, Normal air movement Cardiovascular: Normal pulses, Regular rate/rhythm Gastrointestinal: Normal bowel sounds, Soft and benign, Non-distended, No tenderness, No masses, No rebound, No guarding Musculoskeletal: No contractures, No erythema, No tenderness, No warmth Integumentary: No tenderness/swelling, No erythema, No warmth, No cyanosis Neurological: Normal speech, Normal strength at 5/5 x4 extr, Normal tone, Normal affect - Studies Laboratory Data (last 24 hrs) 12/22/18 14:57: PT 10.6, INR 0.89 12/22/18 14:57: Magnesium 1.9 D 12/22/18 14:57: Creatinine 2.93 H 12/22/18 14:57: WBC 9.1, Hgb 10.0 L, Hct 29.3 L, Plt Count 215 12/22/18 14:57: Sodium 131 L, Potassium 4.1, BUN 69 H, Creatinine 2.97 H, Glucose 299 H, Total Bilirubin 0.3, AST 10 L, ALT 19, Alkaline Phosphatase 81, Lipase 1060 H Assessment and Plan - Plan Impression: Epigastric abdominal pain secondary to acute pancreatitis possibly hypertriglyceridemia related verses viral Acute on chronic renal disease stage IV Diabetes mellitus type 2, insulin dependent Hypertension Hyperlipidemia Former tobacco use Anemia of chronic disease likely iron deficiency Plan: Epigastric abdominal pain secondary to acute pancreatitis possibly hypertriglyceridemia related verses viral: Patient will be admitted for further evaluation and treatment. The patient will remain NPO at this time. Will start IV fluids. Will monitor and adjust fluids appropriately. Replacement electrolyte protocol in place. Will provide IV Protonix, and thiamine. Will check triglyceride level. If triglycerides significantly elevated then the patient may need to be transferred to the ICU for further treatment requiring insulin drip. Will monitor CMP and lipase daily. Once abdominal pain and nausea improved then the patient can being transitioned to oral intake. Will provide DVT prophylaxis-heparin per protocol. Daytime hospitalist team-Dr. Urbina will assume care tomorrow. Anticipate discharge in the next 3-5 days pending clinical improvement. Acute on chronic renal disease stage IV: Will continue with IV fluids. This should improve over the next couple of days. Nephrology consulted to further monitor and manage. Diabetes mellitus type 2, insulin dependent: Will monitor Accu-Cheks and provide sliding scale. Patient takes basal insulin. Will hold this at this time. Hypertension: Will provide IV medication as needed. Hyperlipidemia: Will check triglyceride level. Continue with above recommendation. Former tobacco use: Stable at this time. Patient may require nicotine patch. Anemia of chronic disease likely iron deficiency: Will check iron and B12 deficiency. If abnormal will supplement. Will continue to monitor closely for now. Discharge Plan: Home Plan to discharge in: Greater than 2 days - Advance Directives Does patient have a Living Will: No Does patient have a Durable POA for Healthcare: No - Code Status/Comfort Care Code Status Assessed: Yes (Patient is full code) Time Spent Managing Pts Care (In Minutes): 55
[2018-12-22 21:16] LABS: LDL, Direct 90 mg/dL (100-129)
[2018-12-22 22:13] VITALS: BMI 36.8
[2018-12-22] MEDS ORDERED: ONDANSETRON 4 MG/2 ML VIAL IV PRN (22:21)
[2018-12-22] MEDS ORDERED: ACETAMINOPHEN 650MG/RECT SUPP RECT PRN (22:21)
[2018-12-22] MEDS ORDERED: ACETAMINOPHEN 500 MG TAB PO PRN (22:21)
[2018-12-22] MEDS ORDERED: HYDRALAZINE HCL 20 MG/ML VIAL IV PRN (22:21)
[2018-12-22] MEDS ORDERED: MORPHINE 2 MG/ML SYR IV PRN ×4 (22:21→23:17)
[2018-12-22] MEDS: NA CHLORIDE 0.9% 1,000 ML IV SCH (22:21)
[2018-12-22] MEDS ORDERED: SODIUM CHLORIDE 0.9% 10ML INJ IV PRN (22:21)
[2018-12-22] MEDS: MORPHINE 2 MG/ML SYR IV PRN (23:26)
[2018-12-22] MEDS: INSULIN -REGULAR HUMAN 50 UNIT/0.5 ML ML SQ SCH (23:27)
[2018-12-22 23:41] LABS: HDL Cholesterol 44 mg/dL (40-60); LDL Cholesterol, Calculated ND (<130); Transferrin 200 mg/dL (200-360)
[2018-12-22 23:52] LABS: LDL, Direct 89 mg/dL (100-129)
[2018-12-23] MEDS: HEPARIN 5000 UNIT/ML 1 ML VIAL SQ SCH ×3 (00:35→16:41)
[2018-12-23 01:15] LABS: Urine Appearance CLEAR; Urine Bilirubin NEGATIVE (NEG); Urine Blood TRACE (NEG); Urine Color YELLOW; Urine Glucose 1+ (NEG); Urine Protein 2+ (NEG); Urine Urobilinogen 0.2 mg/dL (0.2-1.0); Urine pH 5.5 (5.0-7.0)
[2018-12-23 01:17] LABS: Urine Microscopic Reflex ORDER UMIC
[2018-12-23 01:40] LABS: Urine Bacteria <20 /HPF (<20); Urine Culture Reflex Order REFLEXED; Urine RBC <5 /HPF (NONE SEEN); Urine Yeast FEW (NONE SEEN)
[2018-12-23] MEDS: INSULIN -REGULAR HUMAN 50 UNIT/0.5 ML ML SQ SCH ×3 (05:21→18:00)
[2018-12-23] MEDS: MORPHINE 2 MG/ML SYR IV PRN ×2 (05:22→12:29)
[2018-12-23 05:56] LABS: Absolute Lymphocytes (CBC) 1.2 K/uL (0.7-4.9); Basophils % 0.6 % (0-1.3); Lymphocytes % 23.1 % (15.3-44.8); MPV 8.8 fL (7.6-11.3); RBC Red Blood Cell Count 2.97 M/uL (3.86-4.86)
[2018-12-23 06:15] LABS: Bilirubin Total 0.2 mg/dL (0.2-1.0); Magnesium 1.8 mg/dL (1.8-2.4); Potassium 4.8 mmol/L (3.5-5.1); Protein, Total 7.7 g/dL (6.4-8.2)
--- NOTE | 2018-12-23 07:47 | EKG ---
Test Date: 2018-12-22 Test Time: 16:19:00 Fashion Illustrator: CHIO MEASUREMENT RESULTS: Intervals: Rate: 83 IN: 148 QRSD: 138 QT: 440 QTc: 517 Scobey: P: 62 IN: 148 QRS: -89 T: 51 INTERPRETIVE STATEMENTS: Normal sinus rhythm Right bundle branch block Left anterior fascicular block Bifascicular block Abnormal ECG Compared to ECG 10/16/2018 11:09:18 Myocardial infarct finding no longer present Bifascicular block still present Electronically Signed On 12-23-18 07:47:22 CDT by Magdiel Keith
[2018-12-23] MEDS: PANTOPRAZOLE 40 MG INJ IVP SCH (08:54)
[2018-12-23] MEDS: THIAMINE 200 MG/2 ML INJ IVP SCH (08:55)
[2018-12-23] MEDS: NA CHLORIDE 0.9% 1,000 ML IV SCH ×2 (08:55→18:08)
[2018-12-23] MEDS ORDERED: MAGNESIUM SULFATE 1 gm IVPB 1 GM/100 ML BAG IV ONE (09:00)
[2018-12-23] MEDS ORDERED: GABAPENTIN 300 MG CAP PO PRN (13:28)
[2018-12-23 15:26] LABS: Potassium 4.6 mmol/L (3.5-5.1)
[2018-12-23] MEDS: INSULIN LISPRO 100 UNIT/1 ML SQ SCH (16:41)
--- NOTE | 2018-12-23 18:54 | PN ---
Subjective: Currently, she is lying in bed. She looks comfortable. She is showing . No chest pain. No nausea, no vomiting. Abdominal pain, improved. Review of Systems: Otherwise, as below. Physical Examination: Vital Signs: Blood pressure 163/72, respiratory rate 17, pulse 73, temperature 97. General: Patient is alert and oriented x3. Does not look in any distress. HEENT: Atraumatic, normocephalic. PERRLA. Oral mucosa is moist. Neck: Supple. No JVD. No bruits. Chest: Clear to auscultation. Good air entry. Heart: Regular rate and rhythm. S1, S2 normal. No gallop or murmur. Abdomen: Soft, mild tenderness. No rebound. Positive bowel sounds. Extremities: No clubbing, cyanosis, or edema. No calf tenderness. Neurologic: Grossly intact. Cranial nerve exam 2 through 12 intact. Normal sensation. Normal refl exes. Normal muscle strength. Laboratory Data: Labs today showed CBC was normal except for hemoglobin 8.9. Chemistry within philip l except for chloride 108, BUN 55, creatinine up to 1.3. Glucose 208, magnesium normal, calcium 8.1. . CT scan with . Assessment And Plan: 1.Epigastric abdominal pain, most likely secondary to acute pancreatitis secondary to hypertriglycer idemia. Continue patient n.p.o. at this point, IV fluids, pain control. Magnesium already replaced. Glucose down to 229. Continue insulin sliding scale as well as insulin lispro. 2.Acute on chronic renal insufficiency. Most likely secondary to her history of diabetes. No basel ine creatinine available. We sent labs today. We will continue hydration with IV fluids. 3.Diabetes mellitus. Continue Accu-Chek, insulin sliding scale. 4.Hypertension. Continue p.r.n. hydralazine. She is also on Coreg 12.5 mg twice a day. 5.Hypertriglyceridemia. Advised patient to get them under control because that can cause pancreatit is. Continue Tricor 160 at bedtime. 6.Hypothyroidism. Continue Synthroid. 7.Pain control with morphine. 8.Deep vein thrombosis prophylaxis. Continue patient on heparin 5000 three times a day. 9.Anemia, slightly worse. Iron profile within normal. 10.No evidence of iron-deficiency anemia. We will check stool occult blood. 11.Hyponatremia, mild. Patient on IV normal saline. MT/MODL Voice ID: [id number] Report ID: [id number]
[2018-12-23] MEDS: CARVEDILOL 12.5 MG TAB PO SCH (20:18)
[2018-12-23] MEDS: AMITRIPTYLINE 50 MG TAB PO SCH (20:18)
[2018-12-23] MEDS: FENOFIBRATE 160 MG TAB PO SCH (20:19)
[2018-12-23] MEDS: MAGNESIUM OXIDE 400 MG TAB PO SCH (20:19)
[2018-12-24] MEDS: NA CHLORIDE 0.9% 1,000 ML IV SCH ×2 (04:21→05:03)
[2018-12-24] MEDS: LEVOTHYROXINE SOD 0.05 MG TABLET PO SCH (05:03)
[2018-12-24] MEDS: INSULIN -REGULAR HUMAN 50 UNIT/0.5 ML ML SQ SCH ×5 (05:03→21:00)
[2018-12-24 06:06] LABS: Absolute Lymphocytes (CBC) 0.9 K/uL (0.7-4.9); Basophils % 0.6 % (0-1.3); Hematocrit 24.1 % (36.0-45.0); Lymphocytes % 19.1 % (15.3-44.8); MPV 8.8 fL (7.6-11.3); RBC Red Blood Cell Count 2.76 M/uL (3.86-4.86)
[2018-12-24 06:23] LABS: Albumin 2.9 g/dL (3.4-5.0); Bilirubin Total 0.2 mg/dL (0.2-1.0); Potassium 4.6 mmol/L (3.5-5.1); Protein, Total 7.7 g/dL (6.4-8.2)
[2018-12-24] MEDS: PANTOPRAZOLE 40 MG INJ IVP SCH (08:18)
[2018-12-24] MEDS: DULOXETINE 30 MG CAP PO SCH (08:18)
[2018-12-24] MEDS: THIAMINE 200 MG/2 ML INJ IVP SCH (08:18)
[2018-12-24] MEDS: INSULIN LISPRO 100 UNIT/1 ML SQ SCH ×3 (08:18→16:59)
[2018-12-24] MEDS: CYANOCOBALAMIN 1,000 MCG TAB PO SCH (08:19)
[2018-12-24] MEDS: CARVEDILOL 12.5 MG TAB PO SCH ×2 (08:19→21:50)
[2018-12-24] MEDS: ASPIRIN 81 MG CHEWABLE TABLET PO SCH (08:19)
[2018-12-24] MEDS: FERROUS SULFATE 325 MG TAB PO SCH (08:20)
[2018-12-24] MEDS: HEPARIN 5000 UNIT/ML 1 ML VIAL SQ SCH ×3 (08:20→16:59)
[2018-12-24] MEDS: MAGNESIUM OXIDE 400 MG TAB PO SCH ×2 (08:20→21:50)
[2018-12-24] MEDS: VITAMIN D 1000 UNIT TAB PO SCH ×2 (08:20→21:52)
[2018-12-24] MEDS ORDERED: HOME MED 1 EA UNK (Omeprazole [Omeprazole] 1 CAP) PO SCH (09:00)
[2018-12-24] MEDS: MYRBETRIQ 50 MG TABLET PO SCH (09:00)
[2018-12-24] MEDS ORDERED: TRULICITY 1.5 MG/0.5 ML SQ SCH (09:00)
[2018-12-24] MEDS ORDERED: MELATONIN 5 MG TABLET PO SCH ×2 (09:00→21:00)
[2018-12-24] MEDS: NACHLORIDE 0.45% 1,000 ML IV SCH (16:00)
--- NOTE | 2018-12-24 18:14 | PN ---
Subjective: Currently patient is lying in bed. She looks comfortable. She is hungry. She has no c hest pain. No abdominal pain. No nausea, vomiting. She would like to eat something. Review of Systems: Otherwise negative. Physical Examination: Vital Signs: Currently, blood pressure 167/73, respiratory rate 18, pulse 22, temperature 98, satura ting 97 on room air. General: She is alert and oriented x3. Does not look in any distress. HEENT: Atraumatic, normocephalic. PERRLA. Oral mucosa is moist. Neck: Supple. No JVD. No carotid bruits. Chest: Clear to auscultation. Good air entry. Heart: Regular rate and rhythm. S1, S2 normal. No gallop. No murmur. Abdomen: Soft, nontender. No masses. No hepatosplenomegaly. Obese. Positive bowel sounds. Extremities: No clubbing, cyanosis, or edema. No calf tenderness. Neurologic: Grossly intact. Cranial nerve exam 2 through 12 intact. Normal sensation. Normal refl exes. Normal muscle strength. Laboratory Data: Labs today showed CBC within normal except for hemoglobin 8.4, a platelet of 149. CMP showed chloride of 113, BUN 40, creatinine 1.2. Glucose 171, calcium 8.1. Assessment And Plan: 1.Acute pancreatitis secondary to high triglycerides. Continue patient on IV fluid. We will start diet with clear liquids. Patient's lipase is also normal. She is very hungry. If patient tolerates clear liquids well, then we will attempt to full liquid. 2.Acute on chronic renal insufficiency. Continue fluid hydration. Creatinine is stable. Patient w ill follow with Dr. Cameron. 3.Diabetes mellitus. No well controlled. Continue insulin sliding scale. Resume home medication n ow while we resuming her diet. She will be on dulaglutide at home dose. 4.Hypertriglyceridemia. She understands that most likely the reason for her pancreatitis. We will proceed with Tricor 160 mg at bedtime as before. 5.Hypothyroidism. We will continue with Synthroid. 6.Pain will be controlled with p.r.n. morphine. 7.Deep vein thrombosis prophylaxis. On heparin t.i.d. 8.Anemia. Stool occult is still pending. 9.Discharge plan will depend on patient's tolerance for diet and the ability . MT/MODL Voice ID: [id number] Report ID: [id number]
--- NOTE | 2018-12-24 21:14 | CON ---
Date of Consultation: 12/24/2018 Reason For Consult: Acute on chronic renal insufficiency. History Of Present Illness: Ms. Barbour is a 48-year-old female with past medical history significant for history of type 2 diabetes, hypertension, and obesity, who follows with Dr. Cameron for chronic kidney disease, presented to [facility] after she started having epigastric abdomin al pain for 3 to 5 days prior to admission. Patient reports that abdominal pain to the epigastric is associated with nausea and vomiting and when she was evaluated in the emergency room, she was found to have elevated lipase level. CT scan of the abdomen, however, was unremarkable for any pancreatic inflammation. She has been admitted tentatively with diagnosis of pancreatitis and has been kept n.p .o. She is able to tolerate a clear liquid diet at this time and she feels better. Past Medical History: Significant for history of hypertension, type 2 diabetes, diabetic neuropathy, anemia of chronic disease, recurrent urinary tract infections, CKD stage 4, osteoarthritis. Surgical History: Significant for history of cholecystectomy, appendectomy, hysterectomy, tubal liga tion, breast reduction, and adenoidectomy. Family History: Significant for father with history of stroke and cancer and mother with history of heart disease and diabetes. Home Medications: Amitriptyline, cholecalciferol, vitamin B12, Cymbalta. She is on TriCor, ferrous sulfate, Lasix 40 mg b.i.d., Lantus and lispro insulin, Victoza, gabapentin, ciprofloxacin, and Flagy l. Review of Systems: Positive for nausea, vomiting, and abdominal pain. All other review of systems are negative. Physical Examination: Vital Signs: At this time are showing temperature of 98, pulse rate of 72, respiratory rate of 18, b lood pressure of 167/73. General: She is an obese female, in no acute distress. HEENT: Atraumatic head. Lungs: Clear to auscultation. Heart: Auscultation of the heart revealed regular rate and rhythm. Abdomen: Obese and nontender. No hepatosplenomegaly was noted on examination and no rebound or guar ding. EXTREMITIES: No evidence of edema. Laboratory Data: At this time is showing anemia with a hemoglobin of 8.4, hematocrit of 24.1, and pl atelet count of 149. BMP showing sodium of 144; potassium of 4.6; chloride of 113; bicarb of 24; BUN of 40; and creatinine of 2.2, was 2.9 at the time of admission. Patient's baseline creatinine seems to be around 2 to 2.1 most of the time upon review of previous records. Current Medications: Normal saline at 100 cc/h. She is receiving amitriptyline, aspirin, carvedilol has been restarted, fenofibrate at bedtime, ferrous sulfate, levothyroxine, morphine p.r.n. for pain . Urine and blood cultures have been so far negative. Triglycerides were noted to be 536 at the time o f admission, previously have been elevated as well, in the past have been elevated in the 1000s range . Impression: 1.Pancreatitis, likely related to hypertriglyceridemia. Patient was also on Victoza at home, which can sometimes contribute to pancreatitis, may need to be suspended for right now. Patient is being t reated conservatively and she seems to be improving. 2.Acute on chronic renal insufficiency, likely secondary to acute tubular necrosis from dehydration, improving at this time. 3.Epigastric abdominal pain secondary to pancreatitis. 4.Type 2 diabetes. Continue insulin sliding scale for right now. 5.Hypertension. The patient's home medications have been restarted. 6.Deep venous thrombosis prophylaxis, on heparin, with mild decrease in platelets. We will continue to monitor at this time. 7.Anemia of chronic disease. Continue to monitor. Plan: Patient is overall doing okay at this time. Laboratory data is showing that the creatinine is improving. She is also able to tolerate p.o. intake. We will resume fenofibrate at the time of dis charge and may need to consider adding prescription-strength fish oil as well to improve the hypertri glyceridemia, prevent the episodes of pancreatitis, and also may need to consider stopping Victoza. Continue all other medications, avoid further hypotension and nephrotoxins. We will continue to sabas tor renal function with you. Please do not hesitate to call us with any questions or concerns. JAME/DEVIN Voice ID: [id number] Report ID: [id number]
[2018-12-24] MEDS: AMITRIPTYLINE 50 MG TAB PO SCH (21:49)
[2018-12-24] MEDS: FENOFIBRATE 160 MG TAB PO SCH (21:50)
[2018-12-25] MEDS: HEPARIN 5000 UNIT/ML 1 ML VIAL SQ SCH ×3 (00:17→17:00)
[2018-12-25 01:34] VITALS: O2SAT 96
--- NOTE | 2018-12-25 02:06 | P.DS ---
Admission Date: 12/22/18 Discharge Date: 12/25/18 Primary Care Provider: PCP/Nephrology-Dr. Cameron Disposition: ROUTINE DISCHARGE Discharge Condition: GOOD Reason for Admission: Epigastric abdominal pain Consultations: Nephrology-Dr. Bianchi Procedures: CT scan: FINDINGS: The evaluation of solid organs and vessels is limited secondary to the lack of contrast administration. Mild splenomegaly Pancreas, adrenals and kidneys appear grossly normal. Cholecystectomy Hysterectomy. Small right ovarian cyst without significant free-fluid There is no evidence of diverticulitis. IMPRESSION: Mild hepatosplenomegaly Medical Problem List: Epigastric abdominal pain secondary to acute pancreatitis possibly hypertriglyceridemia related verses viral Acute on chronic renal disease stage IV Diabetes mellitus type 2, insulin dependent Hypertension Hyperlipidemia Former tobacco use Anemia of chronic disease likely iron/B12 deficiency Diabetic neuropathy GERD Hypothyroidism Obesity, BMI 36 Brief History of Present Illness: 48-year-old female presented to the emergency room with epigastric abdominal pain over the last 3-5 days. Patient with underlying chronic renal disease stage IV, diabetes mellitus type 2 insulin dependent, hypertension and former tobacco use. Patient reports abdominal pain to the epigastric region over the last 3-4 days. It is a been associated with nausea and vomiting. She denies any significant chest pain, shortness of breath or fever. Pain does not radiate. She has had poor appetite since that time. Her symptoms did not improve therefore she came to the ER for further evaluation. In the ER patient evaluated. Blood pressure stable. White count 9.2, hemoglobin 10. Platelet count of 215. Sodium 131,, BUN of 869, creatinine 2.9 with a GFR of 17. Glucose 299. Total bilirubin within normal range. AST and ALT both within normal range. Lipase level elevated around 1060. Troponin unremarkable. CT of the abdomen showed mild hepatosplenomegaly. Pancreas appeared stable without inflammation. Chest x-ray unremarkable. Patient admitted for acute pancreatitis to further evaluate and treat. When I saw the patient in the ER, she appeared stable. Pain slightly improved. Patient without nausea and vomiting. Patient reports that she does not drink heavily. She reports of daughter recently ill with a stomach virus. She denied any fever, chills. Hospital Course: Patient presented with epigastric abdominal pain secondary to acute pancreatitis likely related to hypertriglyceridemia. Patient admitted for further evaluation and treatment. Patient has done well in her stay. Patient has tolerated her diet. At discharge she is without any significant pain, nausea or vomiting. At discharge she will continue with a GI soft diet. Trulicity has been discontinued as this may increase risk of pancreatitis. At discharge she will continue with fenofibrate 160 mg daily and Fish oil 2 g twice daily. Recommend to follow up with her PCP in 1-2 weeks to follow up this hospitalization. Patient may benefit with a GI evaluation as an outpatient to further address. Recommend to recheck fasting lipid panel in 2-4 weeks to monitor her progress. Patient with acute on chronic renal disease stage IV. Patient receive IV fluids. Nephrology consulted to further address. Patient appears to be at her baseline level. Recommend follow up with nephrology as an outpatient. Recommend no further use of nonsteroidal anti-inflammatories. Future medications will need to be renally dose. Patient with diabetes type 2, insulin-dependent. Patient will continue with her basal insulin-Toujeo 50 units subcu daily along with Humalog. Trulicity has been discontinued as this may increase risk of pancreatitis. This was recommended by nephrology. Recommend to maintain blood sugars less than 140 fasting and less than 200 after meals. Further adjustment in her medication can be done by her PCP. Patient with hypertension. Patient will continue with her medication- carvedilol 12.5 mg 1 pill twice daily. Recommend to maintain blood pressures less 150/80. Further adjustment can be done by her PCP. Patient with hyperlipidemia. This was slightly elevated upon admission. As recommended above, patient will continue with fenofibrate 160 mg daily and fish oil 2 g twice daily. Recommend to recheck fasting lipid panel in 2-4 weeks to monitor her progress. Patient with former tobacco use. Recommend tobacco cessation at discharge. Patient may continue with nicotine patch as directed. Patient with anemia of chronic disease likely related to iron and B12 deficiency. Patient previously on iron and B12 supplementation. At discharge she will continue with iron and B12 supplements. Recommend to monitor this closely. Recommend to recheck CBC in 2-4 weeks to monitor progress. Recommend follow up with GI as an outpatient to further evaluate. Patient may require EGD and colonoscopy to further address. Patient with diabetic neuropathy. At discharge she will continue with Elavil 100 mg at bedtime, Cymbalta 30 mg daily and gabapentin 300 mg daily. Patient with GERD. Patient will continue with Prilosec 20 mg daily. Recommend GI evaluation as an outpatient to further address. Patient will likely require a EGD and colonoscopy to further address. Patient with hypothyroidism. At discharge she will continue with levothyroxine 50 mcg daily. Further adjustment can be done by her PCP. Vital Signs/Physical Exam: Temp Pulse Resp BP Pulse Ox 97.0 F 79 18 148/70 H 100 12/24/18 16:00 12/24/18 21:50 12/24/18 16:00 12/24/18 21:50 12/24/18 16:00 General: Alert, In no apparent distress, Oriented x3, Cooperative HEENT: Atraumatic Neck: Supple Respiratory: Clear to auscultation bilaterally, Normal air movement Cardiovascular: Normal pulses, Regular rate/rhythm Gastrointestinal: Normal bowel sounds, Soft and benign, Non-distended, No tenderness, No masses, No rebound, No guarding Musculoskeletal: No erythema, No tenderness, No warmth Integumentary: No tenderness/swelling, No erythema, No warmth, No cyanosis Neurological: Normal speech, Normal strength at 5/5 x4 extr, Normal tone, Normal affect Laboratory Data at Discharge: WBC 4.5 K/uL (4.3-10.9) 12/24/18 05:25 Hgb 8.4 g/dL (12.0-15.0) L 12/24/18 05:25 Hct 24.1 % (36.0-45.0) L 12/24/18 05:25 Plt Count 149 K/uL (152-406) L 12/24/18 05:25 PT 10.6 SECONDS (9.5-12.5) 12/22/18 14:57 INR 0.89 12/22/18 14:57 Sodium 144 mmol/L (136-145) 12/24/18 05:25 Potassium 4.6 mmol/L (3.5-5.1) 12/24/18 05:25 BUN 40 mg/dL (7-18) H 12/24/18 05:25 Creatinine 2.21 mg/dL (0.55-1.3) H 12/24/18 05:25 Glucose 171 mg/dL (74-106) H 12/24/18 05:25 Magnesium 2.0 mg/dL (1.8-2.4) 12/24/18 05:25 Total Bilirubin 0.2 mg/dL (0.2-1.0) 12/24/18 05:25 AST 17 U/L (15-37) 12/24/18 05:25 ALT 18 U/L (12-78) 12/24/18 05:25 Alkaline Phosphatase 68 U/L (45-117) 12/24/18 05:25 Triglycerides 502 mg/dL (<150) H 12/22/18 22:44 Cholesterol 211 mg/dL (<200) H 12/22/18 22:44 LDL Cholesterol Direct 89 mg/dL (100-129) L 12/22/18 22:44 HDL Cholesterol 44 mg/dL (40-60) 12/22/18 22:44 Cholesterol/HDL Ratio 4.80 12/22/18 22:44 Lipase 277 U/L (73-393) 12/24/18 05:25 Home Medications: Amitriptyline HCl 100 mg PO BEDTIME 12/23/18 Aspirin 1 tab PO DAILY 12/23/18 Carvedilol 1 tab PO BID 12/23/18 Cholecalciferol (Vitamin D3) [Vitamin D3] 1 cap PO BID 12/23/18 Cyanocobalamin (Vitamin B-12) [B-12] 1 tab PO DAILY 12/23/18 Duloxetine HCl [Cymbalta] 1 tab PO DAILY 12/23/18 Ferrous Fumarate/Ascorbic Acid [Hola-Sequels 65-25 mg Caplet] 1 tab PO DAILY Gabapentin 1 tab PO DAILY PRN 12/23/18 Insulin Glargine,Hum.rec.anlog [Toujeo Solostar] 50 unit SQ DAILY 12/23/18 Insulin Lispro [Humalog] 30 unit SQ TID 12/23/18 Levothyroxine [Synthroid*] 1 tab PO DAILY 12/23/18 Magnesium Oxide [Magnesium] 1 tab PO BID 12/23/18 Melatonin 1 tab PO DAILY 12/23/18 Mirabegron [Myrbetriq] 1 tab PO DAILY 12/23/18 Omeprazole 1 cap PO DAILY 12/23/18 Fenofibrate [Tricor*] 1 tab PO BEDTIME #30 tab 12/25/18 Nicotine [Nicoderm] 1 patch TD DAILY #30 patch.td24 12/25/18 Lawton-3 Fatty Acids/Fish Oil [Fish Oil 1,000 mg Softgel] 2 each PO BID #120 capsule 12/25/18 New Medications: Fenofibrate [Tricor*] 1 tab PO BEDTIME #30 tab Nicotine [Nicoderm] 1 patch TD DAILY #30 patch.td24 Lawton-3 Fatty Acids/Fish Oil [Fish Oil 1,000 mg Softgel] 2 each PO BID #120 capsule Patient Discharge Instructions: 1. Recommend follow up with her PCP in 1 week to follow up this hospitalization. 2. Patient presented with epigastric abdominal pain secondary to acute pancreatitis likely related to hypertriglyceridemia. Patient admitted for further evaluation and treatment. Patient has done well in her stay. Patient has tolerated her diet. At discharge she is without any significant pain, nausea or vomiting. At discharge she will continue with a GI soft diet. Trulicity has been discontinued as this may increase risk of pancreatitis. At discharge she will continue with fenofibrate 160 mg daily and Fish oil 2 g twice daily. Recommend to follow up with her PCP in 1-2 weeks to follow up this hospitalization. Patient may benefit with a GI evaluation as an outpatient to further address. Recommend to recheck fasting lipid panel in 2-4 weeks to monitor her progress. 3. Patient with acute on chronic renal disease stage IV. Patient receive IV fluids. Nephrology consulted to further address. Patient appears to be at her baseline level. Recommend follow up with nephrology as an outpatient. Recommend no further use of nonsteroidal anti-inflammatories. Future medications will need to be renally dose. 4. Patient with diabetes type 2, insulin-dependent. Patient will continue with her basal insulin-Toujeo 50 units subcu daily along with Humalog. Trulicity has been discontinued as this may increase risk of pancreatitis. This was recommended by nephrology. Recommend to maintain blood sugars less than 140 fasting and less than 200 after meals. Further adjustment in her medication can be done by her PCP. 5. Patient with hypertension. Patient will continue with her medication- carvedilol 12.5 mg 1 pill twice daily. Recommend to maintain blood pressures less 150/80. Further adjustment can be done by her PCP. 6. Patient with hyperlipidemia. This was slightly elevated upon admission. As recommended above, patient will continue with fenofibrate 160 mg daily and fish oil 2 g twice daily. Recommend to recheck fasting lipid panel in 2-4 weeks to monitor her progress. 7. Patient with former tobacco use. Recommend tobacco cessation at discharge. Patient may continue with nicotine patch as directed. 8. Patient with anemia of chronic disease likely related to iron and B12 deficiency. Patient previously on iron and B12 supplementation. At discharge she will continue with iron and B12 supplements. Recommend to monitor this closely. Recommend to recheck CBC in 2-4 weeks to monitor progress. Recommend follow up with GI as an outpatient to further evaluate. Patient may require EGD and colonoscopy to further address. 9. Patient with diabetic neuropathy. At discharge she will continue with Elavil 100 mg at bedtime, Cymbalta 30 mg daily and gabapentin 300 mg daily. 10. Patient with GERD. Patient will continue with Prilosec 20 mg daily. Recommend GI evaluation as an outpatient to further address. Patient will likely require a EGD and colonoscopy to further address. 11. Patient with hypothyroidism. At discharge she will continue with levothyroxine 50 mcg daily. Further adjustment can be done by her PCP. Diet: ADA Activity: Ad brenden Time spent managing pt's care (in minutes): 55
[2018-12-25 04:23] LABS: Basophils % 0.6 % (0-1.3); Hematocrit 21.6 % (36.0-45.0); Lymphocytes % 23.7 % (15.3-44.8); MPV 9.1 fL (7.6-11.3); RBC Red Blood Cell Count 2.47 M/uL (3.86-4.86)
[2018-12-25 04:49] LABS: Albumin 2.5 g/dL (3.4-5.0); Bilirubin Total 0.2 mg/dL (0.2-1.0); Magnesium 1.6 mg/dL (1.8-2.4); Potassium 4.5 mmol/L (3.5-5.1); Protein, Total 6.7 g/dL (6.4-8.2)
[2018-12-25 05:34] LABS: Hematocrit 22.3 % (36.0-45.0)
[2018-12-25] MEDS: LEVOTHYROXINE SOD 0.05 MG TABLET PO SCH (05:34)
[2018-12-25] MEDS: INSULIN -REGULAR HUMAN 50 UNIT/0.5 ML ML SQ SCH ×3 (07:30→16:30)
[2018-12-25] MEDS ORDERED: MAGNESIUM SULFATE 1 gm IVPB 1 GM/100 ML BAG IV ONE (08:00)
[2018-12-25] MEDS ORDERED: NA CHLORIDE 0.9% 250 ML IV SCH (08:00)
[2018-12-25] MEDS: INSULIN LISPRO 100 UNIT/1 ML SQ SCH ×3 (08:52→17:57)
[2018-12-25] MEDS: FERROUS SULFATE 325 MG TAB PO SCH (08:57)
[2018-12-25] MEDS: MAGNESIUM OXIDE 400 MG TAB PO SCH (08:58)
[2018-12-25] MEDS: VITAMIN D 1000 UNIT TAB PO SCH (08:58)
[2018-12-25] MEDS: ASPIRIN 81 MG CHEWABLE TABLET PO SCH (08:58)
[2018-12-25] MEDS: CARVEDILOL 12.5 MG TAB PO SCH (08:59)
[2018-12-25] MEDS: CYANOCOBALAMIN 1,000 MCG TAB PO SCH (08:59)
[2018-12-25] MEDS: THIAMINE 200 MG/2 ML INJ IVP SCH (09:00)
[2018-12-25] MEDS: PANTOPRAZOLE 40 MG INJ IVP SCH (09:01)
[2018-12-25] MEDS: DULOXETINE 30 MG CAP PO SCH (09:01)
[2018-12-25] MEDS: NACHLORIDE 0.45% 1,000 ML IV SCH (12:00)
[2018-12-25] MEDS: MYRBETRIQ 50 MG TABLET PO SCH (12:43)
[2018-12-25 16:51] LABS: Hematocrit 27.4 % (36.0-45.0)
[2018-12-25 17:25] VITALS: BP 137/68; TEMP 97.7
--- NOTE | 2018-12-25 20:07 | P.PN ---
Date of Service: 12/25/18 Vital Signs Temp Pulse Resp BP Pulse Ox 97.7 F 75 16 137/68 100 12/25/18 16:00 12/25/18 16:00 12/25/18 16:00 12/25/18 16:00 12/25/18 16:00 Assessment/ Plan: Nephrology CPS stable without CP or SOB. No acute events overnight. Feeling better but still with discomfort in the epigastric area. Vitals, medications, blood work and imaging reviewed in the chart. NAD. MMM. Neck supple. CTA. RRR. Soft Abd. No C/C/E. No rash. AAO. Normal Speech. Obese. A/ CKD IV with proteinuria. DM II with CKD. HTN with CKD. Iron deficiency anemia. Hypocalcemia. Hypomagnesemia. Moderate malnutrition. Acute pancreatitis. P/ Continue current POC and Medications. AM labs. Daily weight. No NSAIDs. Advance diet as tolerated. Recommend Vitamin D3. Replete magnesium.
== END 2018-12-25 18:58 | disposition home or self-care (01) | DRG 438 ==
LOC: ER 13:55 → ERHOLD 19:56 → 4TH 21:35
PROVIDERS: ADMIT Family Medicine; ATTEND Family Medicine
DX: K85.90 Acute pancreatitis without necrosis or infection, unspecified (principal); N17.0 Acute kidney failure with tubular necrosis; N18.4 Chronic kidney disease, stage 4 (severe); E46 Unspecified protein-calorie malnutrition; I12.9 Hypertensive chronic kidney disease with stage 1 through stage 4 chronic kidney disease, or unspecified chronic kidney disease; E11.22 Type 2 diabetes mellitus with diabetic chronic kidney disease; E11.40 Type 2 diabetes mellitus with diabetic neuropathy, unspecified; E78.5 Hyperlipidemia, unspecified; D50.9 Iron deficiency anemia, unspecified; K21.9 Gastro-esophageal reflux disease without esophagitis; E03.9 Hypothyroidism, unspecified; E66.9 Obesity, unspecified; Z68.36 Body mass index [BMI] 36.0-36.9, adult; E78.1 Pure hyperglyceridemia; Z87.891 Personal history of nicotine dependence
CPT/HCPCS: 36415; 36430; 71045; 74176; 80048; 80053; 80061; 80076; 81003; 81015; 82274; 82607; 82728; 82962; 83540; 83690; 83735; 83880; 84466; 84478; 84484; 85014; 85018; 85025; 85610; 86850; 86900; 86901; 87040; 87086; 87088; 93005; 94760; 96361; 96374; 96375; 99285; C9113; J0360; J0696; J1644; J2270; J2405; J3411; J3475; J7030; P9016

== ENCOUNTER 2019-02-11 12:05 | Emergency (ER) | payer BC ==
--- NOTE | 2019-02-11 13:03 | RAD REPORT ---
EXAM DESCRIPTION: RAD - Chest Pa And Lat (2 Views) - 02/11/2019 12:55 pm CLINICAL HISTORY: DYSPNEA Chest pain. COMPARISON: Chest Single View dated 12/22/2018; Chest Single View dated 10/16/2018; Chest Single View da darryl 11/23/2017; Chest Single View dated 10/13/2017 FINDINGS: The lungs are clear. The heart is normal in size. No displaced fractures. Cervical hardwar e plate IMPRESSION: No acute or concerning finding suspected.
[2019-02-11 13:32] LABS: Absolute Lymphocytes (CBC) 1.1 K/uL (0.7-4.9); Basophils % 0.9 % (0-1.3); Hematocrit 26.4 % (36.0-45.0); Lymphocytes % 17.1 % (15.3-44.8); MPV 9.1 fL (7.6-11.3); RBC Red Blood Cell Count 3.06 M/uL (3.86-4.86)
[2019-02-11 13:57] LABS: Blood Morphology Comment NOT SEEN (NOT SEEN); Platelet Estimate ADEQ
--- NOTE | 2019-02-11 14:26 | ER ---
Nurse's Notes [facility] Name: Emily Barbour Age: 48 yrs Sex: Female : 1970 Arrival Date: 02/11/2019 Time: 12:08 Bed 14 Private MD: Jean-Paul Cameron Diagnosis: Chronic kidney disease (CKD);Dyspnea-resolved Presentation: 02/11 12:14 Presenting complaint: Patient states: Shortness of breath for the past 30 minutes. aj1 Denies cough, congestion. Transition of care: patient was not received from another setting of care. Onset of symptoms was February 11, 2019. Risk Assessment: Do you want to hurt yourself or someone else? Patient reports no desire to harm self or others. Initial Sepsis Screen: Does the patient meet any 2 criteria? HR > 90 bpm. No. Patient's initial sepsis screen is negative. Does the patient have a suspected source of infection? No. Patient's initial sepsis screen is negative. Care prior to arrival: None. 12:14 Method Of Arrival: Ambulatory aj1 12:14 Acuity: SAL[place] 3 aj1 Triage Assessment: 12:16 General: Appears in no apparent distress. uncomfortable, Behavior is calm, cooperative, aj1 appropriate for age. Pain: Pain currently is 3 out of 10 on a pain scale. Neuro: Level of Consciousness is awake, alert, obeys commands, Oriented to person, place, time, situation. Cardiovascular: Patient's skin is warm and dry. Respiratory: Reports shortness of breath Airway is patent Respiratory effort is even, unlabored, Respiratory pattern is regular, symmetrical, Onset: The symptoms/episode began/occurred 30 minutes ago, the patient has mild shortness of breath. 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 BID [Active]; fenofibrate 160 mg Oral tab 1 tab once daily [Active]; furosemide 40 mg Oral tab 1 tab 2 times per day [Active]; Humalog 100 unit/mL Sub-Q soln 20 unit three times a day [Active]; Iron CR 325 Oral twice a day [Active]; magnesium oxide 500 mg Oral cap twice a day [Active]; pantoprazole 40 mg Oral TbEC 1 tab once daily [Active]; Toujeo SoloStar 300 unit/mL (1.5 mL) subcutaneous inpn 40 unit every morning [Active]; Victoza 3-Raghu subcutaneous 1.8 unit nightly [Active]; - PMHx: 12:16 Anemia; Diabetes - IDDM; High Cholesterol; Hypertension; Renal Disease; Tendonitis in aj1 Elbows; - Immunization history:: Flu vaccine is not up to date. - Social history:: Smoking status: Patient/guardian denies using tobacco. - Ebola Screening: : Patient denies travel to an Ebola-affected area in the 21 days before illness onset. Screenin:35 Abuse screen: Denies threats or abuse. Nutritional screening: No deficits noted. em Tuberculosis screening: No symptoms or risk factors identified. Fall Risk None identified. Assessment: 12:30 General: Appears in no apparent distress. comfortable, Behavior is calm, cooperative, em Denies fever. Pain: Denies pain. Neuro: Level of Consciousness is awake, alert, obeys commands, Oriented to person, place, time, situation, Appropriate for age. Cardiovascular: Denies chest pain, Heart tones S1 S2 present Capillary refill < 3 seconds Patient's skin is warm and dry. Rhythm is regular. Respiratory: Reports shortness of breath Airway is patent Respiratory effort is even, unlabored, Respiratory pattern is regular, symmetrical, Breath sounds are clear bilaterally. Onset: The symptoms/episode began/occurred just prior to arrival, Denies cough. GI: Patient currently denies nausea, vomiting. Derm: Skin is intact, is healthy with good turgor, Skin is pink, warm \T\ dry. Musculoskeletal: Capillary refill < 3 seconds, Range of motion: intact in all extremities. 13:30 Reassessment: Patient appears in no apparent distress at this time. Patient and/or em family updated on plan of care and expected duration. Pain level reassessed. Patient is alert, oriented x 3, equal unlabored respirations, skin warm/dry/pink. Patient states feeling better. Patient states symptoms have improved. Vital Signs: 12:16 BP 120 / 60; Pulse 94; Resp 20; Temp 98.1; Pulse Ox 100% on R/A; Weight 95.25 kg (R); aj1 Height 5 ft. 5 in. (165.10 cm) (R); Pain 3/10; 13:30 BP 127 / 68; Pulse 87; Resp 18; Pulse Ox 99% on R/A; Pain 0/10; em 14:31 BP 134 / 71; Pulse 84; Resp 20; Pulse Ox 100% on R/A; Pain 0/10; em 12:16 Body Mass Index 34.95 (95.25 kg, 165.10 cm) aj1 ED Course: 12:08 Patient arrived in ED. mr 12:08 Arian Del Cid MD is Private Physician. mr 12:08 Jean-Paul Cameron DO is Private Physician. mr 12:15 Triage completed. aj1 12:16 Arm band placed on Patient placed in an exam room. aj1 12:19 Magda Demp[facility]C [facility]. kb 12:19 Destin Snyder MD is Attending Physician. kb 12:25 Patient has correct armband on for positive identification. Placed in gown. Bed in low em position. Call light in reach. Side rails up X2. Adult w/ patient. Pulse ox on. NIBP on. 12:55 Chest Pa And Lat (2 Views) XRAY In Process Unspecified. EDMS 12:59 Kuldip Bay LVN is Primary Nurse. em 13:05 Initial lab(s) drawn, by md, sent to lab. Inserted saline lock: 20 gauge in right em antecubital area, using aseptic technique. Blood collected. 14:25 Jean-Paul Cameron DO is Referral Physician. kb 14:48 No provider procedures requiring assistance completed. IV discontinued, intact, em bleeding controlled, No redness/swelling at site. Pressure dressing applied. Administered Medications: No medications were administered Outcome: 14:25 Discharge ordered by . kb 14:48 Discharged to home ambulatory, with family. em 14:48 Condition: good 14:48 Discharge instructions given to patient, family, Instructed on discharge instructions, follow up and referral plans. Demonstrated understanding of instructions, follow-up care. 14:51 Patient left the ED. em Signatures: Dispatcher [employer] EDMS Magda Dempsey FNP-C SERVICE OBSERVER CHIEF-Ckb Colleen Means, RN RN aj1 Ej, [facility] mr Kuldip Bay, REDIPPER REDIPPER em
--- NOTE | 2019-02-11 14:26 | EDPHYS ---
Physician Documentation [facility] Name: Emily Barbour Age: 48 yrs Sex: Female : 1970 Arrival Date: 02/11/2019 Time: 12:08 Bed 14 Private MD: Jean-Paul Cameron ED Physician Destin Snyder HPI: 02/11 13:29 This 48 yrs old Female presents to ER via Ambulatory with complaints of kb Breathing Difficulty. 13:29 The patient has shortness of breath at rest. Onset: The symptoms/episode began/occurred kb 1 hour(s) ago. Duration: The symptoms are continuous. The patient's shortness of breath has no apparent modifying factors. Associated signs and symptoms: The patient has no apparent associated signs or symptoms. Severity of symptoms: At their worst the symptoms were moderate in the emergency department the symptoms are unchanged. The patient has not experienced similar symptoms in the past. The patient has not recently seen a physician. 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 BID [Active]; fenofibrate 160 mg Oral tab 1 tab once daily [Active]; furosemide 40 mg Oral tab 1 tab 2 times per day [Active]; Humalog 100 unit/mL Sub-Q soln 20 unit three times a day [Active]; Iron CR 325 Oral twice a day [Active]; magnesium oxide 500 mg Oral cap twice a day [Active]; pantoprazole 40 mg Oral TbEC 1 tab once daily [Active]; Toujeo SoloStar 300 unit/mL (1.5 mL) subcutaneous inpn 40 unit every morning [Active]; Victoza 3-Raghu subcutaneous 1.8 unit nightly [Active]; - PMHx: 12:16 Anemia; Diabetes - IDDM; High Cholesterol; Hypertension; Renal Disease; Tendonitis in aj1 Elbows; - Immunization history:: Flu vaccine is not up to date. - Social history:: Smoking status: Patient/guardian denies using tobacco. - Ebola Screening: : Patient denies travel to an Ebola-affected area in the 21 days before illness onset. ROS: 13:30 Constitutional: Negative for fever, chills, and weight loss, ENT: Negative for injury, kb pain, and discharge, Neck: Negative for injury, pain, and swelling, Cardiovascular: Negative for chest pain, palpitations, and edema, Abdomen/GI: Negative for abdominal pain, nausea, vomiting, diarrhea, and constipation, Back: Negative for injury and pain, MS/Extremity: Negative for injury and deformity, Skin: Negative for injury, rash, and discoloration, Neuro: Negative for headache, weakness, numbness, tingling, and seizure. 13:30 Respiratory: Positive for shortness of breath, Negative for cough, dyspnea on exertion, hemoptysis, orthopnea, pleurisy, sputum production, wheezing. Exam: 13:30 Constitutional: This is a well developed, well nourished patient who is awake, alert, kb and in no acute distress. Head/Face: Normocephalic, atraumatic. ENT: Nares patent. No nasal discharge, no septal abnormalities noted. Tympanic membranes are normal and external auditory canals are clear. Oropharynx with no redness, swelling, or masses, exudates, or evidence of obstruction, uvula midline. Mucous membranes moist. Neck: Trachea midline, no thyromegaly or masses palpated, and no cervical lymphadenopathy. Supple, full range of motion without nuchal rigidity, or vertebral point tenderness. No Meningismus. Chest/axilla: Normal chest wall appearance and motion. Nontender with no deformity. No lesions are appreciated. Cardiovascular: Regular rate and rhythm with a normal S1 and S2. No gallops, murmurs, or rubs. Normal PMI, no JVD. No pulse deficits. Respiratory: Lungs have equal breath sounds bilaterally, clear to auscultation and percussion. No rales, rhonchi or wheezes noted. No increased work of breathing, no retractions or nasal flaring. Abdomen/GI: Soft, non-tender, with normal bowel sounds. No distension or tympany. No guarding or rebound. No evidence of tenderness throughout. Skin: Warm, dry with normal turgor. Normal color with no rashes, no lesions, and no evidence of cellulitis. MS/ Extremity: Pulses equal, no cyanosis. Neurovascular intact. Full, normal range of motion. Neuro: Awake and alert, GCS 15, oriented to person, place, time, and situation. Cranial nerves II-XII grossly intact. Motor strength 5/5 in all extremities. Sensory grossly intact. Cerebellar exam normal. Normal gait. Vital Signs: 12:16 BP 120 / 60; Pulse 94; Resp 20; Temp 98.1; Pulse Ox 100% on R/A; Weight 95.25 kg (R); aj1 Height 5 ft. 5 in. (165.10 cm) (R); Pain 3/10; 13:30 BP 127 / 68; Pulse 87; Resp 18; Pulse Ox 99% on R/A; Pain 0/10; em 14:31 BP 134 / 71; Pulse 84; Resp 20; Pulse Ox 100% on R/A; Pain 0/10; em 12:16 Body Mass Index 34.95 (95.25 kg, 165.10 cm) aj1 MDM: 12:19 Patient medically screened. kb 13:31 The patient's pulmonary embolism risk score was calculated as follows: No Risks (0 kb Pts). Data reviewed: vital signs, nurses notes. Data interpreted: Pulse oximetry: on room air is 100 %. Interpretation: normal. ED course: Pt laughing and talking about the [employer] game with risk tech as she was wheeled to radiology department. No resp distress noted. . 14:12 Counseling: I had a detailed discussion with the patient and/or guardian regarding: the kb historical points, exam findings, and any diagnostic results supporting the discharge/admit diagnosis, lab results, radiology results, the need for outpatient follow up, a family practitioner, to return to the emergency department if symptoms worsen or persist or if there are any questions or concerns that arise at home. ED course: Discussed creatinine with pt. Pt sees Dr Cameron for her kidneys and says her numbers fluctuate, but they are not concerned about them at this time. Reports she has had Stage 4 kidney disease for years. Previous creatinines reviewed and pt's history confirmed. . 14:24 ED course: Pt reports she feels better now. Pt and spouse believe it was a panic attack.kb 02/11 12:41 Order name: CBC with Diff; Complete Time: 13:59 kb 02/11 12:41 Order name: Basic Metabolic Panel; Complete Time: 13:59 kb 02/11 12:41 Order name: Chest Pa And Lat (2 Views) XRAY; Complete Time: 13:11 kb 02/11 12:41 Order name: IV Start; Complete Time: 13:09 kb 02/11 12:41 Order name: BNP; Complete Time: 13:59 kb 02/11 13:58 Order name: Manual Differential; Complete Time: 13:59 EDMS Administered Medications: No medications were administered Disposition: 14:57 Co-signature as Attending Physician, Destin Snyder MD. rn Disposition: 02/11/19 14:25 Discharged to Home. Impression: Chronic kidney disease (CKD), Dyspnea - resolved. - Condition is Stable. - Discharge Instructions: Shortness of Breath, [id number], Panic Attacks, [id number]. - Medication Reconciliation Form, Thank You Letter, Antibiotic Education, Prescription Opioid Use, Work release form form. - Follow up: Emergency Department; When: As needed; Reason: Worsening of condition. Follow up: Jean-Paul Cameron DO; When: 2 - 3 days; Reason: Recheck today's complaints, Continuance of care, Re-evaluation by your physician. Signatures: Dispatcher [employer] EDMagda Padron, JUICE TESTER-C JUICE TESTER-Ckb Colleen Means, RN RN aj1 Kuldip Bay, ESL TUTOR ESL TUTOR em Destin Snyder MD MD ornamental metal worker: (The following items were deleted from the chart) 14:51 14:25 02/11/2019 14:25 Discharged to Home. Impression: Chronic kidney disease (CKD); em Dyspnea - resolved. Condition is Stable. Forms are Medication Reconciliation Form, Thank You Letter, Antibiotic Education, Prescription Opioid Use. Follow up: Emergency Department; When: As needed; Reason: Worsening of condition. Follow up: Jean-Paul Cameron; When: 2 - 3 days; Reason: Recheck today's complaints, Continuance of care, Re-evaluation by your physician. kb
[2019-02-11 15:12] VITALS: TEMP 98.1
[2019-02-11 15:17] VITALS: BP 134/71; O2SAT 100
== END 2019-02-11 14:51 | disposition home or self-care (01) ==
LOC: ER 12:05
DX: I12.9 Hypertensive chronic kidney disease with stage 1 through stage 4 chronic kidney disease, or unspecified chronic kidney disease (principal); E11.22 Type 2 diabetes mellitus with diabetic chronic kidney disease; N18.9 Chronic kidney disease, unspecified; Z79.4 Long term (current) use of insulin
CPT/HCPCS: 36415; 71046; 80048; 83880; 85025; 99284

== ENCOUNTER 2019-03-25 10:09 | Observation (INO) | payer BC ==
--- OUTSIDE RECORDS SUMMARY | 2019-03-25 10:13 | XMS REPORT ---
:1970 [facility] [address] [place] [address] Care Team Providers Name Role Phone NABILA [...] ID 2018 2018 Outpatient C XIOMARA Aurelio [facility] [id number] 04:57:00 08:15:00 BERE Results Test Description Test Time Test Comments Text Results Atomic Results Result Comments BONE MARROW EXAM 2018-11-14 14:30:00 Bone Marrow Pathology Report Case: [id number] Authorizing Provider: Tiff Colmenares MD Collected: 10/20/2018 1030 Ordering Location: [address] Received: 10/20/2018 1151 Service Pathologist: Damián [...] CIRCULATING BLASTS. Signing Pathologist Direct Phone Line: [phone] signed by Damián Mckeon MD on 10/24/2018 at 4:50 PMThere is no morphologic or immunophenotypic evidence of lymphoma or acute leukemia. This patient has a reported clinical history of anemia and hepatosplenomegaly as per the electronic medical records in [facility]. The morphologic finding of the megakaryocytes is nonspecific and could be reactive however they raise concern for the presence of an evolving myeloid neoplasm. Molecular and cytogenetic studies are currently pending, with results to be issued in an addendum report. 17001; 74716; 40774 x 2; 35896; 44599, 12630, [id number] Bone marrow The case is received in three parts all labeled with the patient's name, Jose Barbour, date of 1970, and accession number, [id number], which corresponds to the accompanying requisition page [...] evaluated Immunohistochemistry technical testing was performed at [facility], Pathology Laboratory where it was [...] Comments FLOW CYTOMETRY RESULT POINTER (OPAL) (test vvmd=4842) See Separate Report FLOW CYTOMETRY AP CASE # (OAPL) (test eexp=0090) [id number] FLOW [id number] 09:46:00Flow Cytometry Report Case: [id number] Authorizing Provider: Tiff Colmenares MD Collected: 10/20/2018 1151 Ordering Location: [address] Received: 2018 1336 Service Pathologist: Damián Mckeon MD Specimen: Other BONE MARROW, FLOWCYTOMETRY:NO MONOCLONAL B CELL POPULATION.NO ABNORMAL T CELL POPULATION.NO INCREASED BLAST POPULATION.CORRELATION WITH MORPHOLOGIC FINDINGS REQUIRED. at 9: 46 [id number] marrow CD8, surface-Elburn, CD56, surface-Lambda, CD5, CD19 , CD10, CD3, CD20, CD4, CD45, CD14, CD13, CD33, CD117, CD34, cKappa, cLambda, CD38, MP653Qybjhguf Viability: 97.2% Blasts: The dim CD45+ CD34+ [...] developed and their performance characteristics determined by [facility]. Theyhave not been cleared or approved [...] ANTI-NUCLEAR ANTIBODY (ANGELES) (BEAKER) (test Positive Negative nvsg=404) Test performed by IFA method.ANGELES TITER AND [id number] 11:18:00 Test Item Value Reference Range Comments ANGELES TITER (BEAKER) (test ppzm=6658) :160 ANGELES PATTERN (BEAKER) (test jqwb=0463) Nucleolar HEPATITIS A [id number] 08:30:00 Test Item Value Reference Range Comments HEPATITIS A IGM ANTIBODY (BEAKER) (test Nonreactive Nonreactive xgkx=928) HEPATITIS A IGG ANTIBODY (BEAKER) (test Reactive Nonreactive vrem=2161) POCT-GLUCOSE [id number] 08:29:00 Test Item Value Reference Range Comments POC-GLUCOSE METER (DDStocksAKER) 270 mg/dL 70-110 TESTED AT [address] (test rtdp=7106) [facility] [address] HEPATITIS B [id number] 08:29:00 Test Item Value Reference Range Comments HEPATITIS B CORE TOTAL ANTIBODY (BEAKER) (test Nonreactive Nonreactive snpu=906) HEPATITIS B SURFACE ANTIBODY (BEAKER) (test < mIU/mL <8.0 afxw=199) HEPATITIS B SURFACE ANTIGEN (2) (BEAKER) (test Nonreactive Nonreactive hhuq=5514) BASIC METABOLIC [id number] 06:54:00 Test Item Value Reference Range Comments SODIUM (BEAKER) (test 131 meq/L 136-145 cpfx=950) POTASSIUM (BEAKER) (test 4.7 meq/L 3.5-5.1 tjfb=488) CHLORIDE (BEAKER) (test 96 meq/L 98-107 yeje=416) CO2 (BEAKER) (test 25 meq/L 22-29 yvur=563) BLOOD UREA NITROGEN 62 mg/dL 7-21 (BEAKER) (test mgsv=797) CREATININE (BEAKER) (test 2.80 mg/dL 0.57-1.25 rkbl=329) GLUCOSE RANDOM (BEAKER) 278 mg/dL 70-105 (test emqe=299) CALCIUM (BEAKER) (test 9.3 mg/dL 8.4-10.2 jcnh=723) EGFR (BEAKER) (test 18 mL/min/1.73 sq m ESTIMATED GFR IS NOT imvc=9150) ACCURATE CREATININE CLEARANCE IN PREDICTING GLOMERULAR FILTRATION RATE. ESTIMATED GFR IS NOT APPLICABLE FOR DIALYSIS PATIENTS. [id number] 06:50:00 Test Item Value Reference Range Comments MAGNESIUM (BEAKER) (test wftr=717) 2.1 mg/dL 1.6-2.6 HEPATIC FUNCTION [id number] 06:50:00 Test Item Value Reference Range Comments TOTAL PROTEIN (BEAKER) (test dekf=629) 7.7 gm/dL 6.0-8.3 ALBUMIN (BEAKER) (test mzbw=8035) 3.5 g/dL 3.5-5.0 BILIRUBIN TOTAL (BEAKER) (test edjl=060) 0.4 mg/dL 0.2-1.2 BILIRUBIN DIRECT (BEAKER) (test vvwp=437) 0.2 mg/dL 0.1-0.5 ALKALINE PHOSPHATASE (BEAKER) (test taub=990) 61 U/L 40-150 AST (SGOT) (BEAKER) (test coca=792) 39 U/L 5-34 ALT (SGPT) (BEAKER) (test msxo=980) 253 U/L 6-55 LACTATE DEHYDROGENASE (LDH)2018-10-21 06:50:00 Test Item Value Reference Range Comments LACTATE DEHYDROGENASE (BEAKER) (test odpb=243) 224 U/L 125-220 [id number] 06:20:00 Test Item Value Reference Range Comments FERRITIN (BEAKER) (test wslv=141) 1162 ng/mL 5-275 POCT-GLUCOSE [id number] 21:09:00 Test Item Value Reference Range Comments POC-GLUCOSE METER (BEAKER) 336 mg/dL 70-110 Notified JOCY ARVIZU/TESTED AT [facility] (test pwck=7575) [address] [place] [address] POCT-GLUCOSE [id number] 18:17:00 Test Item Value Reference Range Comments POC-GLUCOSE METER (BEAKER) 308 mg/dL 70-110 TESTED AT [address] (test gmkw=7208) [facility] [address] PROTEIN ELECTROPHORESIS, [id number] 17:39:00 Test Item Value Reference Range Comments ALBUMIN FRACTION (BEAKER) 3.0 g/dL 3.5-5.5 (test evco=794) ALPHA 1 FRACTION (BEAKER) 0.4 g/dL 0.2-0.4 (test tgkz=058) ALPHA 2 FRACTION (BEAKER) 1.2 g/dL 0.5-0.9 (test hsdq=827) BETA FRACTION (BEAKER) (test 0.8 g/dL 0.6-1.1 huca=639) GAMMA GLOBULIN FRACTION 2.2 g/dL 0.7-1.7 (BEAKER) (test khou=400) INTERPRETATION-119 (BEAKER) Total protein and albumin (test rgri=8333) decreased. Alpha-1 and alpha-2 globulin percentages increased. Gamma increased in a diffuse fashion. This indicates an acute phase response and concomitant chronic immune or inflammatory response. CGCJ-CUGVIZBEFRB-440 Armani To M.D. (electonic (BEAKER) (test fxeq=9224) signature) PROTEIN TOTAL SERUM, SPEP 7.6 gm/dL 6.0-8.3 (BEAKER) (test xbcr=1802) BONE MARROW PROCESS.2018-10-20 12:02:00 Test Item Value Reference Range Comments ANATOMIC CASE# (OPAL) (test sjtw=4059) [id number] ORDERED BY DOCTOR# (OPAL) (test jaab=4820) Escudier PERFORMED BY DOCTOR# (OPAL) (test focb=0708) Cora CLOT RECEIVED? (BEAKER) (test btmo=0153) Yes BIOPSY RECEIVED? (BEAKER) (test zxjm=9329) Yes CULTURE RECEIVED? (BEAKER) (test yqet=0013) No FLOW RECEIVED? (BEAKER) (test qtim=9945) Yes CYTOGENICS? (BEAKER) (test oknj=4111) Yes MOLECULAR GENETICS? (BEAKER) (test hgxa=9082) Yes Good collection by Dr Curran slides are good(Rosa)CT, BIOPSY, BONE [id number] 11:46:00Reason for exam:->anemia, hepatosplenomegalyFINAL REPORT CT-guided aspiration [...] technique, CT fluoroscopic guidance and a 12-gauge [facility] core biopsy system, initially a nine cc aspiration of the posterior left iliac bone was performed. This wasgiven to the poultry field service technician who was present at the time of the study and deemed adequate. Subsequently, a core biopsy was obtained. This was also given to the poultry field service technician. COMPLICATIONS:None. ESTIMATED BLOOD LOSS: Minimal. Patient Disposition: The patient was in the same state post procedure as preprocedure. IMPRESSION: Successful CT-guided aspiration and core biopsy of the bone marrow. Signed: Long Shepherd MDReport Verified Date/Time: 10/20/2018 11:46:15 Reading Location: [facility] C013X [facility] Consult Reading Room Electronically signed by: LONG SHEPHERD M.D. on 08/2018 11:46 AMPOCT-GLUCOSE [id number] 11:37:00 Test Item Value Reference Range Comments POC-GLUCOSE METER (BEAKER) 213 mg/dL 70-110 TESTED AT [facility] [address] [facility] (test ckzg=9424) [facility] [address] CBC W/PLT COUNT & AUTO [id number] 10:17:00 Test Item Value Reference Range Comments WHITE BLOOD CELL COUNT (BEAKER) (test qhko=996) 5.6 K/ L 3.5-10.5 RED BLOOD CELL COUNT (BEAKER) (test tgww=586) 3.27 M/ L 3.93-5.22 HEMOGLOBIN (BEAKER) (test baps=101) 9.5 GM/DL 11.2-15.7 HEMATOCRIT (BEAKER) (test ccub=507) 29.8 % 34.1-44.9 MEAN CORPUSCULAR VOLUME (BEAKER) (test nlfl=585) 91.1 fL 79.4-94.8 MEAN CORPUSCULAR HEMOGLOBIN (BEAKER) (test 29.1 pg 25.6-32.2 baoy=097) MEAN CORPUSCULAR HEMOGLOBIN CONC (BEAKER) (test 31.9 GM/DL 32.2-35.5 levl=477) RED CELL DISTRIBUTION WIDTH (BEAKER) (test 15.1 % 11.7-14.4 bifk=687) PLATELET COUNT (BEAKER) (test xvtb=809) 260 K/CU MM 150-450 MEAN PLATELET VOLUME (BEAKER) (test ulsm=540) 11.1 fL 9.4-12.3 NUCLEATED RED BLOOD CELLS (BEAKER) (test 0 /100 WBC 0-0 angg=817) (CELLAVISION MANUAL DIFF)2018-10-20 10:17:00 Test Item Value Reference Range Comments NEUTROPHILS - REL (CELLAVISION)(BEAKER) (test 60 % atjj=3131) LYMPHOCYTES - REL (CELLAVISION)(BEAKER) (test 31 % vptw=9310) MONOCYTES - REL (CELLAVISION)(BEAKER) (test 3 % fqds=9183) EOSINOPHILS - REL (CELLAVISION)(BEAKER) (test 4 % nzge=7396) METAMYELOCYTES - REL (CELLAVISION)(BEAKER) (test 1 % 0-0 wpzy=2088) BANDS - REL (CELLAVISION)(BEAKER) (test 1 % 0-10 nbgv=9670) NEUTROPHILS - ABS (CELLAVISION)(BEAKER) (test 3.36 K/ul 1.56-6.13 avdv=2821) LYMPHOCYTES - ABS (CELLAVISION)(BEAKER) (test 1.74 K/ul 1.18-3.74 vyvc=8382) MONOCYTES - ABS (CELLAVISION)(BEAKER) (test 0.17 K/uL 0.24-0.36 holb=4966) EOSINOPHILS - ABS (CELLAVISION)(BEAKER) (test 0.22 K/uL 0.04-0.36 qcly=0753) METAMYELOCYTES - ABS (CELLAVISION)(BEAKER) (test 0.06 K/uL 0.00-0.00 ywwo=8664) BANDS - ABS (CELLAVISION)(BEAKER) (test 0.06 K/uL 0.00-0.80 agky=8473) TOTAL COUNTED (BEAKER) (test rqzi=3771) 100 MANUAL NRBC PER 100 CELLS (BEAKER) (test 1 /100 WBC 0-0 hysa=5835) WBC MORPHOLOGY (BEAKER) (test rgpa=011) Normal PLT MORPHOLOGY (BEAKER) (test qxdd=461) Normal POLYCHROMATOPHILLIC RBCS(BEAKER) (test udrf=424) 1+ few ANISOCYTOSIS (BEAKER) (test jnfk=791) 1+ few ARTIFACT (CELLAVISION)(BEAKER) (test wbjg=4641) Present PLATELET CONCENTRATION (CELLAVISION)(BEAKER) Adequate (test cvxj=4725) Received comment: User comments: Slide comments:BASIC METABOLIC [id number] 07:15:00 Test Item Value Reference Range Comments SODIUM (BEAKER) (test 135 meq/L 136-145 prog=587) POTASSIUM (BEAKER) (test 4.6 meq/L 3.5-5.1 Specimen slightly fgbo=206) hemolyzed CHLORIDE (BEAKER) (test 97 meq/L 98-107 wisp=893) CO2 (BEAKER) (test 26 meq/L 22-29 yfuq=139) BLOOD UREA NITROGEN 56 mg/dL 7-21 (BEAKER) (test whuq=529) CREATININE (BEAKER) (test 2.65 mg/dL 0.57-1.25 Specimen slightly yylg=587) hemolyzed GLUCOSE RANDOM (BEAKER) 191 mg/dL 70-105 (test niwq=466) CALCIUM (BEAKER) (test 9.6 mg/dL 8.4-10.2 zabj=204) EGFR (BEAKER) (test 19 mL/min/1.73 sq m ESTIMATED GFR IS NOT zuzk=0968) ACCURATE CREATININE CLEARANCE IN PREDICTING GLOMERULAR FILTRATION RATE. ESTIMATED GFR IS NOT APPLICABLE FOR DIALYSIS PATIENTS. [id number] 06:12:00 Test Item Value Reference Range Comments MAGNESIUM (BEAKER) (test 2.0 mg/dL 1.6-2.6 Specimen slightly hemolyzed dhxn=383) [id number] 06:12:00 Test Item Value Reference Range Comments PHOSPHORUS (BEAKER) (test 4.7 mg/dL 2.3-4.7 Specimen slightly hemolyzed eban=527) [id number] 06:06:00 Test Item Value Reference Range Comments PROTIME (BEAKER) (test jiip=327) 13.0 seconds 11.9-14.2 INR (BEAKER) (test lnkg=621) 1.0 <=5.9 PARTIAL THROMBOPLASTIN TIME (BEAKER) (test 32.3 seconds 22.5-36.0 upgv=724) Effective 09/13/2018: PT Reference Range ChangeNew: 11.9-14.2 Previous: 11.7- 14.7RECOMMENDED COUMADIN/WARFARIN INR THERAPY RANGESSTANDARD DOSE: 2.0-3.0 Includes: PROPHYLAXIS for venous thrombosis, systemic embolization; TREATMENT for venous thrombosis and/or pulmonary embolus.HIGH RISK: Target INR is2.5-3.5 for patients wiht mechanical heart valves.POCT-GLUCOSE [id number] 21:39:00 Test Item Value Reference Range Comments POC-GLUCOSE METER (BEAKER) 327 mg/dL 70-110 Will Repeat Test/TESTED AT (test ovff=4871) [facility] [address] [facility] [address] POCT-GLUCOSE [id number] 17:28:00 Test Item Value Reference Range Comments POC-GLUCOSE METER (BEAKER) 244 mg/dL 70-110 TESTED AT [address] (test kjws=8453) [facility] [address] RHEUMATOID FACTOR AB, REFLEX TO [id number] 11:15:00 Test Item Value Reference Range Comments RHEUMATOID FACTOR (BEAKER) (test xerr=865) Negative CBC W/PLT COUNT & AUTO [id number] 09:44:00 Test Item Value Reference Range Comments WHITE BLOOD CELL COUNT (BEAKER) (test hhqy=249) 4.8 K/ L 3.5-10.5 RED BLOOD CELL COUNT (BEAKER) (test nuia=507) 3.17 M/ L 3.93-5.22 HEMOGLOBIN (BEAKER) (test khoo=053) 9.0 GM/DL 11.2-15.7 HEMATOCRIT (BEAKER) (test xotn=873) 29.0 % 34.1-44.9 MEAN CORPUSCULAR VOLUME (BEAKER) (test xmnq=371) 91.5 fL 79.4-94.8 MEAN CORPUSCULAR HEMOGLOBIN (BEAKER) (test 28.4 pg 25.6-32.2 guhy=461) MEAN CORPUSCULAR HEMOGLOBIN CONC (BEAKER) (test 31.0 GM/DL 32.2-35.5 qrfr=394) RED CELL DISTRIBUTION WIDTH (BEAKER) (test 15.2 % 11.7-14.4 xxtp=060) PLATELET COUNT (BEAKER) (test dzmq=241) 228 K/CU MM 150-450 MEAN PLATELET VOLUME (BEAKER) (test ugbl=566) 10.7 fL 9.4-12.3 NUCLEATED RED BLOOD CELLS (BEAKER) (test 1 /100 WBC 0-0 zjhz=752) (CELLAVISION MANUAL DIFF)2018-10-19 09:44:00 Test Item Value Reference Range Comments NEUTROPHILS - REL (CELLAVISION)(BEAKER) (test 72 % fzcs=7304) LYMPHOCYTES - REL (CELLAVISION)(BEAKER) (test 14 % bpgp=8887) MONOCYTES - REL (CELLAVISION)(BEAKER) (test 4 % gtit=6490) EOSINOPHILS - REL (CELLAVISION)(BEAKER) (test 5 % qmks=8274) METAMYELOCYTES - REL (CELLAVISION)(BEAKER) (test 4 % 0-0 niki=6080) MYELOCYTES - REL (CELLAVISION)(BEAKER) (test 1 % 0-0 cswm=8280) NEUTROPHILS - ABS (CELLAVISION)(BEAKER) (test 3.46 K/ul 1.56-6.13 vgbb=6343) LYMPHOCYTES - ABS (CELLAVISION)(BEAKER) (test 0.67 K/ul 1.18-3.74 mgyk=9401) MONOCYTES - ABS (CELLAVISION)(BEAKER) (test 0.19 K/uL 0.24-0.36 ljvq=3048) EOSINOPHILS - ABS (CELLAVISION)(BEAKER) (test 0.24 K/uL 0.04-0.36 vbgf=7544) METAMYELOCYTES - ABS (CELLAVISION)(BEAKER) (test 0.19 K/uL 0.00-0.00 aasa=9200) MYELOCYTES-ABS (CELLAVISION)(BEAKER) (test 0.05 K/uL 0.00-0.00 ilxt=7573) TOTAL COUNTED (BEAKER) (test ozdz=7744) 100 MANUAL NRBC PER 100 CELLS (BEAKER) (test 2 /100 WBC 0-0 peju=5656) SMUDGE CELLS (BEAKER) (test ojmj=7590) Present GIANT PLATELETS (BEAKER) (test inya=978) Present ANISOCYTOSIS (BEAKER) (test dmqe=664) 1+ few PLATELET CONCENTRATION (CELLAVISION)(BEAKER) Adequate (test qihs=6844) Received comment: User comments: Slide comments:POCT-GLUCOSE [id number] 09: 05:00 Test Item Value Reference Range Comments POC-GLUCOSE METER (BEAKER) 166 mg/dL 70-110 TESTED AT [facility] [address] [facility] (test npxf=6846) [facility] [address] COMPREHENSIVE METABOLIC [id number] 07:14:00 Test Item Value Reference Range Comments TOTAL PROTEIN (BEAKER) 8.2 gm/dL 6.0-8.3 Specimen slightly (test zqbi=506) hemolyzed ALBUMIN (BEAKER) (test 3.6 g/dL 3.5-5.0 Specimen slightly tbef=3411) hemolyzed ALKALINE PHOSPHATASE 72 U/L 40-150 (BEAKER) (test zgkl=840) BILIRUBIN TOTAL (BEAKER) 0.5 mg/dL 0.2-1.2 Specimen slightly (test feer=445) hemolyzed SODIUM (BEAKER) (test 135 meq/L 136-145 myeh=135) POTASSIUM (BEAKER) (test 4.2 meq/L 3.5-5.1 Specimen slightly bgjx=745) hemolyzed CHLORIDE (BEAKER) (test 97 meq/L 98-107 buvc=301) CO2 (BEAKER) (test 27 meq/L 22-29 zemq=157) BLOOD UREA NITROGEN 60 mg/dL 7-21 (BEAKER) (test xohl=869) CREATININE (BEAKER) (test 2.79 mg/dL 0.57-1.25 Specimen slightly fcwf=985) hemolyzed GLUCOSE RANDOM (BEAKER) 171 mg/dL 70-105 (test rety=455) CALCIUM (BEAKER) (test 9.5 mg/dL 8.4-10.2 aqiz=303) AST (SGOT) (BEAKER) (test 152 U/L 5-34 Specimen slightly avcw=421) hemolyzed ALT (SGPT) (BEAKER) (test 532 U/L 6-55 Specimen slightly blla=985) hemolyzed EGFR (BEAKER) (test 18 mL/min/1.73 sq m ESTIMATED GFR IS NOT bfkx=1782) ACCURATE CREATININE CLEARANCE IN PREDICTING GLOMERULAR FILTRATION RATE. ESTIMATED GFR IS NOT APPLICABLE FOR DIALYSIS PATIENTS. [id number] 06:36:00 Test Item Value Reference Range Comments MAGNESIUM (BEAKER) (test 2.0 mg/dL 1.6-2.6 Specimen slightly hemolyzed xbgz=833) [id number] 06:36:00 Test Item Value Reference Range Comments PHOSPHORUS (BEAKER) (test 4.4 mg/dL 2.3-4.7 Specimen slightly hemolyzed yqnt=889) URIC [id number] 06:36:00 Test Item Value Reference Range Comments URIC ACID (BEAKER) (test 9.8 mg/dL 2.6-7.2 Specimen slightly hemolyzed oevn=110) HEPATIC FUNCTION [id number] 06:36:00 Test Item Value Reference Range Comments TOTAL PROTEIN (BEAKER) (test 8.2 gm/dL 6.0-8.3 Specimen slightly hemolyzed wcwx=200) ALBUMIN (BEAKER) (test 3.6 g/dL 3.5-5.0 Specimen slightly hemolyzed ypcn=6251) BILIRUBIN TOTAL (BEAKER) (test 0.5 mg/dL 0.2-1.2 Specimen slightly hemolyzed htwd=473) BILIRUBIN DIRECT (BEAKER) (test 0.2 mg/dL 0.1-0.5 Specimen slightly hemolyzed ygft=715) ALKALINE PHOSPHATASE (BEAKER) 72 U/L 40-150 (test firs=342) AST (SGOT) (BEAKER) (test 152 U/L 5-34 Specimen slightly hemolyzed lwev=247) ALT (SGPT) (BEAKER) (test 532 U/L 6-55 Specimen slightly hemolyzed afsa=520) B-TYPE NATRIURETIC FACTOR (BNP)2018-10-19 06:33:00 Test Item Value Reference Range Comments B-TYPE NATRIURETIC PEPTIDE (BEAKER) (test 162 pg/mL 0-100 qaqb=576) PROTHROMBIN [id number] 06:06:00 Test Item Value Reference Range Comments PROTIME (BEAKER) (test rrnv=054) 13.4 seconds 11.9-14.2 INR (BEAKER) (test qvoz=704) 1.1 <=5.9 Effective 09/13/2018: PT Reference Range ChangeNew: 11.9-14.2 Previous: 11.7- 14.7RECOMMENDED COUMADIN/WARFARIN INR THERAPY RANGESSTANDARD DOSE: 2.0-3.0 Includes: PROPHYLAXIS for venous thrombosis, systemic embolization; TREATMENT for venous thrombosis and/or pulmonary embolus.HIGH RISK: Target INR is2.5-3.5 for patients wiht mechanical heart valves.CALCIUM, [id number] 05:56:00 Test Item Value Reference Range Comments CALCIUM IONIZED (BEAKER) (test cvtt=103) 1.10 mmol/L 1.12-1.27 PH, BLOOD (BEAKER) (test idna=0529) 7.38 CALCIUM, [id number] 05:56:00 Test Item Value Reference Range Comments CALCIUM IONIZED (BEAKER) (test yxvq=095) 1.07 mmol/L 1.12-1.27 PH, BLOOD (BEAKER) (test vepm=5649) 7.41 POCT-GLUCOSE [id number] 21:33:00 Test Item Value Reference Range Comments POC-GLUCOSE METER (BEAKER) 297 mg/dL 70-110 TESTED AT [facility] [address] [place] [address] (test bpiq=9921) [facility] [address] CMV PCR, [id number] 18:31:00 Test Item Value Reference Range Comments CMV VIRAL LOAD - NEGATIVE Negative or below the linear (BEAKER) (test jcmm=8993) range of the assay (<375 copies/mL) Cytomegalovirus [...] and its performance characteristics determined by the [facility] Pathology Department, Section of Molecular Pathology. It has not been cleared or approved by the U.S. Food and Drug Administration (FDA), since FDA approval is not required for clinical use of the test. Validation was done as required by The Clinical Laboratory Improvement Amendments of 1988.EBV VIRAL [id number] 18:23:00 Test Item Value Reference Range Comments EBV VIRAL LOAD - NEGATIVE Negative or below the linear (BEAKER) (test qdyq=4092) range of the assay (<500 copies/mL) This [...] developedand its performance characteristics determined by the [facility] Pathology Department, Section of Molecular Pathology. It has not been cleared or approved by the U.S. Food and Drug Administration (FDA), since FDA approval is not required for clinical use of the test. Validation was doneas required by The Clinical Laboratory Improvement Amendments of 1988.POCT-GLUCOSE [id number] 18:02:00 Test Item Value Reference Range Comments POC-GLUCOSE METER (BEAKER) 198 mg/dL 70-110 TESTED AT [facility] [address] [facility] (test kiau=7035) [facility] [address] RESPIRATORY PANEL [id number] 17:32:00 Test Item Value Reference Range Comments HUMAN METAPNEUMOVIRUS (BEAKER) (test Not detected Not detected, Equivocal iura=6477) RHINOVIRUS (BEAKER) (test qjtt=6357) Not detected Not detected, Equivocal INFLUENZA A (BEAKER) (test ccac=1405) Not detected Not detected, Equivocal INFLUENZA A (NO SUBTYPE) (test Not detected, Equivocal yxrb=8402) INFLUENZA A SUBTYPE H1 (BEAKER) (test Not detected, Equivocal mlek=4351) INFLUENZA A SUBTYPE H3 (BEAKER) (test Not detected, Equivocal imji=9710) INFLUENZA A SUBTYPE H1-2009 (BEAKER) Not detected, Equivocal (test cjar=6746) INFLUENZA B (BEAKER) (test svqo=6577) Not detected Not detected, Equivocal RESPIRATORY SYNCYTIAL VIRUS (BEAKER) Not detected Not detected, Equivocal (test hbau=2996) PARAINFLUENZA VIRUS 1 (BEAKER) (test Not detected Not detected, Equivocal xnca=8918) PARAINFLUENZA VIRUS 2 (BEAKER) (test Not detected Not detected, Equivocal cqrp=5368) PARAINFLUENZA VIRUS 3 (BEAKER) (test Not detected Not detected, Equivocal mjwk=0846) PARAINFLUENZA VIRUS 4 (BEAKER) (test Not detected Not detected, Equivocal lovy=4883) ADENOVIRUS (BEAKER) (test phgn=9488) Not detected Not detected, Equivocal CORONAVIRUS 229E (BEAKER) (test Not detected Not detected, Equivocal pbxn=8518) CORONAVIRUS HKU1 (BEAKER) (test Not detected Not detected, Equivocal gjes=1366) CORONAVIRUS NL63 (BEAKER) (test Not detected Not detected, Equivocal yqsr=2602) CORONAVIRUS OC43 (BEAKER) (test Not detected Not detected, Equivocal hidj=9512) BORDETELLA PERTUSSIS (BEAKER) (test Not detected Not detected, Equivocal hels=4987) CHLAMYDOPHILA PNEUMONIAE (BEAKER) (test Not detected Not detected, Equivocal femu=5054) MYCOPLASMA PNEUMONIAE (BEAKER) (test Not detected Not detected, Equivocal iajm=0249) Other viruses and bacteria not targeted by this PCR panel cannot be excluded; therefore clinical correlation and follow up of serology, culture results, and other molecular studies is required. The results are not intended to be used as the sole means for clinical diagnosis or patient management decisions. This sample was tested at the [facility] using the MarqetaArray Respiratory Panel. It is FDA cleared and has been verified and approved by the [facility] for clinical use on nasopharyngeal swab specimens.The performance of the FilmArrayRP has not been established in individuals who received influenza vaccine. Recent administration ofa nasal influenza vaccine may cause false positive results for Influenza A and/orInfluenza B.EOSINOPHIL SMEAR, [id number] 16:42:00 Test Item Value Reference Range Comments EOSINOPHIL SMEAR, URINE (BEAKER) Rare EOS=less than 5% WBCs No EOS seen (test azge=3418) seen are EOS CT, CHEST, WITHOUT [id number] 16:31:00FINAL REPORT CT Chest, abdomen, and pelvis [...] MDReport Verified Date/Time: 10/18/2018 16:31:25 Reading Location: [facility] Radiology Reading Room CT, [id number] 16:31:00Reason for exam:->hepatosplenomegalyFINAL REPORT CT Chest, abdomen, [...] MDReport Verified Date/Time: 10/18/2018 16:31:25 Reading Location: [facility] Radiology Reading Room Electronically signed by: MANI MOREL MD on 06/2018 04:31 PMCBC W/PLT COUNT & AUTO [id number] 15:06:00 Test Item Value Reference Range Comments WHITE BLOOD CELL COUNT 4.4 K/ L 3.5-10.5 This is a corrected result. (BEAKER) (test kbvh=240) Previous result was 4.2 K/ L on 10/18/2018 at 0657 CDT RED BLOOD CELL COUNT (BEAKER) 2.92 M/ L 3.93-5.22 This is a corrected result. (test dtvp=295) Previous result was 2.88 M/ L on 10/18/2018 at 0657 CDT HEMOGLOBIN (BEAKER) (test 8.3 GM/DL 11.2-15.7 lxdl=633) HEMATOCRIT (BEAKER) (test 27.1 % 34.1-44.9 This is a corrected result. dobd=483) Previous result was 26.4 % on 10/18/2018 at 0657 CDT MEAN CORPUSCULAR VOLUME 92.8 fL 79.4-94.8 This is a corrected result. (BEAKER) (test udii=752) Previous result was 91.7 fL on 10/18/2018 at 0657 CDT MEAN CORPUSCULAR HEMOGLOBIN 28.4 pg 25.6-32.2 This is a corrected result. (BEAKER) (test jkmo=002) Previous result was 28.8 pg on 10/18/2018 at 0657 CDT MEAN CORPUSCULAR HEMOGLOBIN 30.6 GM/DL 32.2-35.5 This is a corrected result. CONC (BEAKER) (test roln=101) Previous result was 31.4 GM/DL on 10/18/2018 at 0657 CDT RED CELL DISTRIBUTION WIDTH 15.3 % 11.7-14.4 This is a corrected result. (BEAKER) (test fktr=934) Previous result was 15.1 % on 10/18/2018 at 0657 CDT PLATELET COUNT (BEAKER) (test 185 K/CU MM 150-450 This is a corrected result. jcrd=624) Previous result was 177 K/CU MM on 10/18/2018 at 0657 CDT MEAN PLATELET VOLUME (BEAKER) 11.3 fL 9.4-12.3 This is a corrected result. (test kmjk=918) Previous result was 11.1 fL on 10/18/2018 at 0657 CDT NUCLEATED RED BLOOD CELLS 2 /100 WBC 0-0 This is a corrected result. (BEAKER) (test uwxa=541) Previous result was 1 /100 WBC on 10/18/2018 at 0657 CDT (CELLAVISION MANUAL DIFF)2018-10-18 15:04:00 Test Item Value Reference Range Comments NEUTROPHILS - REL (CELLAVISION)(BEAKER) (test 74 % gfpb=0557) LYMPHOCYTES - REL (CELLAVISION)(BEAKER) (test 14 % rifm=8613) MONOCYTES - REL (CELLAVISION)(BEAKER) (test 3 % jfhl=5991) EOSINOPHILS - REL (CELLAVISION)(BEAKER) (test 6 % kacs=1577) MYELOCYTES - REL (CELLAVISION)(BEAKER) (test 3 % 0-0 oasf=6557) NEUTROPHILS - ABS (CELLAVISION)(BEAKER) (test 3.26 K/ul 1.56-6.13 cvru=0051) LYMPHOCYTES - ABS (CELLAVISION)(BEAKER) (test 0.62 K/ul 1.18-3.74 fnxt=8771) MONOCYTES - ABS (CELLAVISION)(BEAKER) (test 0.13 K/uL 0.24-0.36 pqaf=4399) EOSINOPHILS - ABS (CELLAVISION)(BEAKER) (test 0.26 K/uL 0.04-0.36 ryoz=3425) MYELOCYTES-ABS (CELLAVISION)(BEAKER) (test 0.13 K/uL 0.00-0.00 erbi=2443) TOTAL COUNTED (BEAKER) (test jrmt=9157) 100 MANUAL NRBC PER 100 CELLS (BEAKER) (test 1 /100 WBC 0-0 itds=7107) WBC MORPHOLOGY (BEAKER) (test srji=638) Normal CLUMPED PLATELETS (BEAKER) (test jpdo=542) Present GIANT PLATELETS (BEAKER) (test dflc=977) Present POLYCHROMATOPHILLIC RBCS(BEAKER) (test dyjg=905) 1+ few ANISOCYTOSIS (BEAKER) (test hhcy=330) 1+ few MICROCYTES (BEAKER) (test kbfp=813) 1+ few ARTIFACT (CELLAVISION)(BEAKER) (test yysr=4069) Present PLATELET CONCENTRATION (CELLAVISION)(BEAKER) Adequate (test eomp=7187) Received comment: User comments: Slide comments:RAPID INFLUENZA A&B [id number] 13:32:00 Test Item Value Reference Range Comments RAPID INFLUENZA A AG (BEAKER) (test Negative Negative, Inconclusive wbnu=9248) RAPID INFLUENZA B AG (BEAKER) (test Negative Negative, Inconclusive loem=1095) [id number] 13:19:00 Test Item Value Reference Range Comments FERRITIN (BEAKER) (test lhir=987) 6230 ng/mL 5-275 HIV-1 ANTIGEN WITH HIV-1/2 [id number] 12:57:00 Test Item Value Reference Range Comments HIV-1 ANTIGEN WITH HIV 1\\T\\2 ANTIBODY (2) Nonreactive Nonreactive (BEAKER) (test jbcy=1986) [id number] 12:53:00 Test Item Value Reference Range Comments HAPTOGLOBIN (BEAKER) (test ioaj=068) 301 mg/dL 14-258 [id number] 12:34:00 Test Item Value Reference Range Comments D-DIMER QUANTITATIVE (BEAKER) (test fzeo=132) 13.12 MG/L FEU <0.50 Intended Use: The [...] is within 95-100% range.ALPHA FETOPROTEIN (AFP), TUMOR [id number] 12:29:00 Test Item Value Reference Range Comments ALPHA-FETOPROTEIN (BEAKER) (test utot=7349) < ng/mL <10.0 [id number] 11:08:00 Test Item Value Reference Range Comments TRIGLYCERIDES (BEAKER) (test pzib=187) 299 mg/dL TRIGLYCERIDE REFERENCE RANGELow Risk <150Borderline Risk 150-199High Risk 200-499Very High Risk>=500POCT-GLUCOSE [id number] 11:05:00 Test Item Value Reference Range Comments POC-GLUCOSE METER (BEAKER) 248 mg/dL 70-110 TESTED AT [address] (test wqtf=4141) [place] [id number] RETICULOCYTE [id number] 11:05:00 Test Item Value Reference Range Comments RETICULOCYTE COUNT PCT (BEAKER) (test fhko=428) 4.3 % 0.5-1.7 IRON, TIBC, % SAT. (WITHOUT FERRITIN)2018-10-18 10:12:00 Test Item Value Reference Range Comments IRON (BEAKER) (test ltrd=879) 42.0 ug/dL 40.0-160.0 TOTAL IRON BINDING CAPACITY (BEAKER) (test 264 ug/dL 250-450 zvys=692) IRON % SATURATION (2) (BEAKER) (test jtwi=1646) 16 % 20-55 POCT-GLUCOSE [id number] 08:55:00 Test Item Value Reference Range Comments POC-GLUCOSE METER (BEAKER) 198 mg/dL 70-110 TESTED AT [address] (test xmig=5151) [place] [id number] 06:57:00 Test Item Value Reference Range Comments PHOSPHORUS (BEAKER) (test azhi=324) 4.5 mg/dL 2.3-4.7 [id number] 06:57:00 Test Item Value Reference Range Comments MAGNESIUM (BEAKER) (test efjc=889) 1.7 mg/dL 1.6-2.6 HEPATIC FUNCTION [id number] 06:57:00 Test Item Value Reference Range Comments TOTAL PROTEIN (BEAKER) (test imgc=558) 7.6 gm/dL 6.0-8.3 ALBUMIN (BEAKER) (test fraa=3800) 3.4 g/dL 3.5-5.0 BILIRUBIN TOTAL (BEAKER) (test elqp=253) 0.5 mg/dL 0.2-1.2 BILIRUBIN DIRECT (BEAKER) (test dvye=616) 0.3 mg/dL 0.1-0.5 ALKALINE PHOSPHATASE (BEAKER) (test hndf=537) 75 U/L 40-150 AST (SGOT) (BEAKER) (test kdul=263) 273 U/L 5-34 ALT (SGPT) (BEAKER) (test sisj=513) 693 U/L 6-55 BASIC METABOLIC [id number] 06:57:00 Test Item Value Reference Range Comments SODIUM (BEAKER) (test 135 meq/L 136-145 jzqq=390) POTASSIUM (BEAKER) (test 3.9 meq/L 3.5-5.1 xhga=257) CHLORIDE (BEAKER) (test 98 meq/L 98-107 zpdu=061) CO2 (BEAKER) (test 28 meq/L 22-29 adkk=296) BLOOD UREA NITROGEN 64 mg/dL 7-21 (BEAKER) (test uzlg=831) CREATININE (BEAKER) (test 3.19 mg/dL 0.57-1.25 mhiw=812) GLUCOSE RANDOM (BEAKER) 162 mg/dL 70-105 (test arbo=809) CALCIUM (BEAKER) (test 9.1 mg/dL 8.4-10.2 tvqs=707) EGFR (BEAKER) (test 16 mL/min/1.73 sq m ESTIMATED GFR IS NOT aftp=4077) ACCURATE CREATININE CLEARANCE IN PREDICTING GLOMERULAR FILTRATION RATE. ESTIMATED GFR IS NOT APPLICABLE FOR DIALYSIS PATIENTS. PROTHROMBIN [id number] 06:37:00 Test Item Value Reference Range Comments PROTIME (BEAKER) (test vooa=244) 14.3 seconds 11.9-14.2 INR (BEAKER) (test yriu=124) 1.2 <=5.9 Effective 09/13/2018: PT Reference Range ChangeNew: 11.9-14.2 Previous: 11.7- 14.7RECOMMENDED COUMADIN/WARFARIN INR THERAPY RANGESSTANDARD DOSE: 2.0-3.0 Includes: PROPHYLAXIS for venous thrombosis, systemic embolization; TREATMENT for venous thrombosis and/or pulmonary embolus.HIGH RISK: Target INR is2.5-3.5 for patients wiht mechanical heart valves.CALCIUM, [id number] 06:19:00 Test Item Value Reference Range Comments CALCIUM IONIZED (BEAKER) (test dvfg=088) 1.09 mmol/L 1.12-1.27 PH, BLOOD (BEAKER) (test gksu=4005) 7.36 POCT-GLUCOSE [id number] 21:54:00 Test Item Value Reference Range Comments POC-GLUCOSE METER (BEAKER) 281 mg/dL 70-110 TESTED AT [address] (test rrwl=5576) [facility] [address] RAD, CHEST, 1 VIEW, NON [id number] 19:11:00Reason for exam:->SOBShould this be performed at [...] Verified Date/ Time: 10/17/2018 19:11:02 Reading Location: [facility] C013W Consult Reading Room [id number] 17:36:00 Test Item Value Reference Range Comments FERRITIN (BEAKER) (test rrwa=247) 578[address] ng/mL 5-275 LACTATE DEHYDROGENASE (LDH)2018-10-17 16:41:00 Test Item Value Reference Range Comments LACTATE DEHYDROGENASE (OPAL) (test iwmf=695) 541 U/L 125-220 [id number] 16:37:00 Test Item Value Reference Range Comments FIBRINOGEN LEVEL (OPAL) (test sihc=063) 439 mg/dl 225-434 POCT-GLUCOSE [id number] 12:47:00 Test Item Value Reference Range Comments POC-GLUCOSE METER (OPAL) 250 mg/dL 70-110 TESTED AT [facility] [address] [facility] (test bdbz=9993) [facility] [address] PUL PERF IMAGING, PARTIC, [id number] 10:48:00FINAL REPORT PROCEDURE: V/Q LUNG SCAN CPT CODE: [id number] INDICATION: Acute chest pain pulmonary origin PROTOCOL: [...] suggestive of a fatty liver. Signed: [facility]ino [facility] Verified Date/Time: 10/17/2018 10:48:21 Reading Location: [address] Reading Room Electronically signed by: ALVINO MIRANDA MD on 05/2018 10:48 AMU/S, PELVIC, [id number] 10:02:00Reason for exam:-> AKIFINAL REPORT Abdominal and [...] Ayoub MDReport Verified Date/Time:10/17/2018 10:02:56 Reading Location: [address] Radiology Reading Room U/S, ABDOMINAL, WITH [id number] 10:02: 00Reason for exam:->elevated transaminasesFINAL REPORT Abdominal [...] Normal Doppler of the abdomen. Signed: [facility] Verified Date/Time:2018 10:02:56 Reading Location: [address] Radiology Reading Room VITAMIN B12 AND [id number] 08:37:00 Test Item Value Reference Range Comments VITAMIN B12 (BEAKER) (test bjmg=128) > pg/mL 213-816 FOLATE (BEAKER) (test mrsd=023) 13.3 ng/mL >=7.0 POCT-GLUCOSE [id number] 08:32:00 Test Item Value Reference Range Comments POC-GLUCOSE METER (BEAKER) 168 mg/dL 70-110 TESTED AT [facility] [address] [facility] (test zzlq=5284) [facility] [address] [id number] 08:03:00 Test Item Value Reference Range Comments FERRITIN (BEAKER) (test akfa=524) 89120 ng/mL 5-275 URIC [id number] 06:15:00 Test Item Value Reference Range Comments URIC ACID (BEAKER) (test polj=394) 13.2 mg/dL 2.6-7.2 [id number] 06:15:00 Test Item Value Reference Range Comments MAGNESIUM (BEAKER) (test adgh=680) 1.8 mg/dL 1.6-2.6 LIPID [id number] 06:15:00 Test Item Value Reference Range Comments TRIGLYCERIDES (BEAKER) (test ohar=174) 223 mg/dL CHOLESTEROL (BEAKER) (test zkyf=362) 119 mg/dL HDL CHOLESTEROL (BEAKER) (test hhvu=545) 30 mg/dL LDL CHOLESTEROL CALCULATED (BEAKER) (test 44 mg/dL zyqy=030) Triglyceride Reference Range: Low Risk <150 Borderline 150- 199 High Risk 200-499 Very High Risk >=500Cholesterol Reference Range: Low Risk <200 Borderline 200-239 High Risk > 240HDL Cholesterol Reference Range: Low Risk >=60 High Risk <40LDL Cholesterol Reference Range: Optimal <100 Near Optimal 100-129 Borderline 130-159 High 160-189 Very High >=190HEPATIC FUNCTION [id number] 06:15:00 Test Item Value Reference Range Comments TOTAL PROTEIN (BEAKER) (test fhqx=419) 7.9 gm/dL 6.0-8.3 ALBUMIN (BEAKER) (test gysa=4707) 3.7 g/dL 3.5-5.0 BILIRUBIN TOTAL (BEAKER) (test fotp=244) 0.5 mg/dL 0.2-1.2 BILIRUBIN DIRECT (BEAKER) (test ckhb=182) 0.3 mg/dL 0.1-0.5 ALKALINE PHOSPHATASE (BEAKER) (test dqeo=136) 83 U/L 40-150 AST (SGOT) (BEAKER) (test exxd=775) 747 U/L 5-34 ALT (SGPT) (BEAKER) (test vxof=999) 1009 U/L 6-55 COMPLEMENT COMPONENT [id number] 06:15:00 Test Item Value Reference Range Comments C4 COMPLEMENT (BEAKER) (test uaem=947) 28 mg/dL 15-57 COMPLEMENT COMPONENT [id number] 06:15:00 Test Item Value Reference Range Comments C3 COMPLEMENT (BEAKER) (test tsfl=835) 106 mg/dL 82-193 IRON, TIBC, % SAT. (WITHOUT FERRITIN)2018-10-17 06:15:00 Test Item Value Reference Range Comments IRON (BEAKER) (test bsry=291) 39.0 ug/dL 40.0-160.0 TOTAL IRON BINDING CAPACITY (BEAKER) (test 265 ug/dL 250-450 wtdl=191) IRON % SATURATION (2) (BEAKER) (test qsdc=1824) 15 % 20-55 BASIC METABOLIC [id number] 06:15:00 Test Item Value Reference Range Comments SODIUM (BEAKER) (test 134 meq/L 136-145 zjry=600) POTASSIUM (BEAKER) (test 4.2 meq/L 3.5-5.1 qrcf=574) CHLORIDE (BEAKER) (test 100 meq/L 98-107 ipkq=252) CO2 (BEAKER) (test 26 meq/L 22-29 brnw=145) BLOOD UREA NITROGEN 64 mg/dL 7-21 (BEAKER) (test qkne=473) CREATININE (BEAKER) (test 3.66 mg/dL 0.57-1.25 auxu=130) GLUCOSE RANDOM (BEAKER) 123 mg/dL 70-105 (test olpm=349) CALCIUM (BEAKER) (test 8.9 mg/dL 8.4-10.2 ylii=291) EGFR (BEAKER) (test 13 mL/min/1.73 sq m ESTIMATED GFR IS NOT mhlu=8562) ACCURATE CREATININE CLEARANCE IN PREDICTING GLOMERULAR FILTRATION RATE. ESTIMATED GFR IS NOT APPLICABLE FOR DIALYSIS PATIENTS. PROTHROMBIN [id number] 05:57:00 Test Item Value Reference Range Comments PROTIME (BEAKER) (test vqbd=614) 16.0 seconds 11.9-14.2 INR (BEAKER) (test btzg=184) 1.4 <=5.9 Effective 09/13/2018: PT Reference Range ChangeNew: 11.9-14.2 Previous: 11.7- 14.7RECOMMENDED COUMADIN/WARFARIN INR THERAPY RANGESSTANDARD DOSE: 2.0-3.0 Includes: PROPHYLAXIS for venous thrombosis, systemic embolization; TREATMENT for venous thrombosis and/or pulmonary embolus.HIGH RISK: Target INR is2.5-3.5 for patients wiht mechanical heart valves.CBC W/PLT COUNT & AUTO [id number] 05:55:00 Test Item Value Reference Range Comments WHITE BLOOD CELL COUNT (BEAKER) (test ffem=708) 4.4 K/ L 3.5-10.5 RED BLOOD CELL COUNT (BEAKER) (test uyap=256) 2.40 M/ L 3.93-5.22 HEMOGLOBIN (BEAKER) (test fngt=426) 6.8 GM/DL 11.2-15.7 HEMATOCRIT (BEAKER) (test noty=754) 22.6 % 34.1-44.9 MEAN CORPUSCULAR VOLUME (BEAKER) (test zzyi=716) 94.2 fL 79.4-94.8 MEAN CORPUSCULAR HEMOGLOBIN (BEAKER) (test 28.3 pg 25.6-32.2 hpgr=747) MEAN CORPUSCULAR HEMOGLOBIN CONC (BEAKER) (test 30.1 GM/DL 32.2-35.5 ftxd=462) RED CELL DISTRIBUTION WIDTH (BEAKER) (test 15.4 % 11.7-14.4 uemw=589) PLATELET COUNT (BEAKER) (test wrni=740) 172 K/CU MM 150-450 MEAN PLATELET VOLUME (BEAKER) (test wnii=443) 11.6 fL 9.4-12.3 NUCLEATED RED BLOOD CELLS (BEAKER) (test 1 /100 WBC 0-0 gaco=966) NEUTROPHILS RELATIVE PERCENT (BEAKER) (test 73 % utsy=486) LYMPHOCYTES RELATIVE PERCENT (BEAKER) (test 13 % tyhj=227) MONOCYTES RELATIVE PERCENT (BEAKER) (test 5 % khzl=435) EOSINOPHILS RELATIVE PERCENT (BEAKER) (test 3 % twjw=589) BASOPHILS RELATIVE PERCENT (BEAKER) (test 1 % funt=784) NEUTROPHILS ABSOLUTE COUNT (BEAKER) (test 3.18 K/ L 1.56-6.13 ffgc=942) LYMPHOCYTES ABSOLUTE COUNT (BEAKER) (test 0.56 K/ L 1.18-3.74 xbfk=720) MONOCYTES ABSOLUTE COUNT (BEAKER) (test 0.23 K/ L 0.24-0.36 repf=389) EOSINOPHILS ABSOLUTE COUNT (BEAKER) (test 0.14 K/ L 0.04-0.36 dfdn=491) BASOPHILS ABSOLUTE COUNT (BEAKER) (test 0.03 K/ L 0.01-0.08 yjmg=939) IMMATURE GRANULOCYTES-RELATIVE PERCENT (BEAKER) 5 % 0-1 (test ywjg=1867) TROPONIN [id number] 01:09:00 Test Item Value Reference Range Comments TROPONIN I (BEAKER) (test mefi=396) 0.03 ng/mL 0.00-0.03 Troponin I (TnI) levels [...] acidosis, acute neurological disease, and persistent tachyarrhythmia.OSMOLALITY, [id number] 22:24:00 Test Item Value Reference Range Comments OSMOLALITY URINE (BEAKER) (test jmox=742) 317 mOsm/kg 40-1,400 HEMOGLOBIN [id number] 22:20:00 Test Item Value Reference Range Comments HEMOGLOBIN A1C (BEAKER) (test sqde=539) 7.2 % 4.3-6.1 URINALYSIS W/ [id number] 22:19:00 Test Item Value Reference Range Comments COLOR (BEAKER) (test tsdn=880) Light Yellow CLARITY (BEAKER) (test kguv=496) Clear SPECIFIC GRAVITY UA (BEAKER) (test ubji=048) 1.006 1.001-1.035 PH UA (BEAKER) (test lzyo=239) 5.5 5.0-8.0 PROTEIN UA (BEAKER) (test yqkx=034) 30 mg/dL Negative GLUCOSE UA (BEAKER) (test acyj=860) Negative Negative KETONES UA (BEAKER) (test uncr=493) Negative Negative BILIRUBIN UA (BEAKER) (test fvsf=470) Negative Negative BLOOD UA (BEAKER) (test ordo=090) Negative Negative NITRITE UA (BEAKER) (test pfkm=012) Negative Negative LEUKOCYTE ESTERASE UA (BEAKER) (test ljoe=153) Negative Negative UROBILINOGEN UA (BEAKER) (test jwng=755) 0.2 mg/dL 0.2-1.0 RBC UA (BEAKER) (test zmmc=674) < /HPF WBC UA (BEAKER) (test awif=531) 3 /HPF MUCUS (BEAKER) (test rgxm=0081) Rare SQUAMOUS EPITHELIAL (BEAKER) (test augn=882) < /HPF SOURCE(BEAKER) (test tnmc=4749) POCT-GLUCOSE [id number] 22:09:00 Test Item Value Reference Range Comments POC-GLUCOSE METER (BEAKER) 171 mg/dL 70-110 TESTED AT [facility] [address] [facility] (test hjls=9828) [facility] [address] PROTEIN, RANDOM [id number] 21:36:00 Test Item Value Reference Range Comments PROTEIN, URINE (BEAKER) (test vcjj=1661) 44 mg/dL 0-14 CHLORIDE, RANDOM [id number] 21:30:00 Test Item Value Reference Range Comments CHLORIDE URINE (BEAKER) (test ielm=086) 96 meq/L Reference Range: No NormalsCREATININE, RANDOM [id number] 21:09:00 Test Item Value Reference Range Comments CREATININE URINE (BEAKER) (test atka=971) 30.6 mg/dL Reference Range: No NormalsSODIUM, RANDOM [id number] 21:09:00 Test Item Value Reference Range Comments SODIUM URINE (BEAKER) (test qtoe=981) 90 meq/L Reference Range: No NormalsUREA NITROGEN, RANDOM [id number] 21:09:00 Test Item Value Reference Range Comments UREA NITROGEN URINE (BEAKER) (test ilki=877) 232 mg/dL Reference Range: No NormalsHEPATITIS PANEL, [id number] 20:39:00 Test Item Value Reference Range Comments HEPATITIS A IGM ANTIBODY (BEAKER) (test Nonreactive Nonreactive ennk=787) HEPATITIS B CORE IGM ANTIBODY (BEAKER) (test Nonreactive Nonreactive ycyz=173) HEPATITIS C ANTIBODY (BEAKER) (test mogq=552) Nonreactive Nonreactive HEPATITIS B SURFACE ANTIGEN (2) (BEAKER) (test Nonreactive Nonreactive qjzr=6046) URINALYSIS W/ REFLEX URINE [id number] 20:12:00 Test Item Value Reference Range Comments COLOR (BEAKER) (test lfho=808) Light Yellow CLARITY (BEAKER) (test bfkl=377) Hazy SPECIFIC GRAVITY UA (BEAKER) (test jcbf=487) 1.006 1.001-1.035 PH UA (BEAKER) (test ngta=074) 5.5 5.0-8.0 PROTEIN UA (BEAKER) (test lurm=690) 30 mg/dL Negative GLUCOSE UA (BEAKER) (test uwnj=762) Negative Negative KETONES UA (BEAKER) (test vhyr=741) Negative Negative BILIRUBIN UA (BEAKER) (test ykro=358) Negative Negative BLOOD UA (BEAKER) (test aqna=160) Negative Negative NITRITE UA (BEAKER) (test xlzj=148) Negative Negative LEUKOCYTE ESTERASE UA (BEAKER) (test zebf=950) Trace Negative UROBILINOGEN UA (BEAKER) (test ltmj=354) 0.2 mg/dL 0.2-1.0 RBC UA (BEAKER) (test spmm=385) < /HPF WBC UA (BEAKER) (test brdc=634) 10 /HPF BACTERIA (BEAKER) (test uqia=631) Rare MUCUS (BEAKER) (test zfzd=9174) Rare SQUAMOUS EPITHELIAL (BEAKER) (test xjpf=714) 5 /HPF AMORPHOUS CRYSTALS (BEAKER) (test utcd=4852) Rare SOURCE(BEAKER) (test hlub=9604) TROPONIN [id number] 19:15:00 Test Item Value Reference Range Comments TROPONIN I (BEAKER) (test lvla=775) 0.03 ng/mL 0.00-0.03 Troponin I (TnI) levels [...] acute neurological disease, and persistent tachyarrhythmia.COMPREHENSIVE METABOLIC [id number] 19:15:00 Test Item Value Reference Range Comments TOTAL PROTEIN (BEAKER) 7.9 gm/dL 6.0-8.3 (test nvie=209) ALBUMIN (BEAKER) (test 3.7 g/dL 3.5-5.0 emtx=8801) ALKALINE PHOSPHATASE 89 U/L 40-150 (BEAKER) (test skje=485) BILIRUBIN TOTAL (BEAKER) 0.6 mg/dL 0.2-1.2 (test echc=877) SODIUM (BEAKER) (test 133 meq/L 136-145 nwku=672) POTASSIUM (BEAKER) (test 4.6 meq/L 3.5-5.1 bzgn=101) CHLORIDE (BEAKER) (test 102 meq/L 98-107 cypq=356) CO2 (BEAKER) (test 21 meq/L 22-29 lmla=211) BLOOD UREA NITROGEN 63 mg/dL 7-21 (BEAKER) (test neem=773) CREATININE (BEAKER) (test 3.74 mg/dL 0.57-1.25 zxya=823) GLUCOSE RANDOM (BEAKER) 117 mg/dL 70-105 (test ecyg=647) CALCIUM (BEAKER) (test 8.6 mg/dL 8.4-10.2 zqhu=693) AST (SGOT) (BEAKER) (test 1805 U/L 5-34 gtda=040) ALT (SGPT) (BEAKER) (test 1232 U/L 6-55 vzfo=001) EGFR (BEAKER) (test 13 mL/min/1.73 sq m ESTIMATED GFR IS NOT ndua=9688) ACCURATE CREATININE CLEARANCE IN PREDICTING GLOMERULAR FILTRATION RATE. ESTIMATED GFR IS NOT APPLICABLE FOR DIALYSIS PATIENTS. CREATINE KINASE (CK)2018-10-16 19:13:00 Test Item Value Reference Range Comments CREATINE KINASE TOTAL (BEAKER) (test uamc=170) 439 U/L 29-200 SALICYLATE [id number] 19:11:00 Test Item Value Reference Range Comments SALICYLATE LEVEL (BEAKER) (test nwlp=420) < mg/dL 15.0-30.0 Therapeutic Range: 15.0-30.0 mg/dLToxic: >30.0 mg/dL Lethal: >70.0 mg/dLACETAMINOPHEN [id number] 19:10:00 Test Item Value Reference Range Comments ACETAMINOPHEN LEVEL (BEAKER) (test mjtx=400) < ug/mL 10.0-30.0 Therapeutic Range: 10.0-30.0 g/mLToxic Levels: >200.0 g/mLPROTHROMBIN [id number] 18:59:00 Test Item Value Reference Range Comments PROTIME (BEAKER) (test cwrl=447) 16.7 seconds 11.9-14.2 INR (BEAKER) (test kkjs=328) 1.4 <=5.9 Effective 09/13/2018: PT Reference Range ChangeNew: 11.9-14.2 Previous: 11.7- 14.7RECOMMENDED COUMADIN/WARFARIN INR THERAPY RANGESSTANDARD DOSE: 2.0-3.0 Includes: PROPHYLAXIS for venous thrombosis, systemic embolization; TREATMENT for venous thrombosis and/or pulmonary embolus.HIGH RISK: Target INR is2.5-3.5 for patients wiht mechanical heart valves.CBC W/PLT COUNT & AUTO [id number] 18:52:00 Test Item Value Reference Range Comments WHITE BLOOD CELL COUNT (BEAKER) (test voao=453) 4.9 K/ L 3.5-10.5 RED BLOOD CELL COUNT (BEAKER) (test hxlj=641) 2.42 M/ L 3.93-5.22 HEMOGLOBIN (BEAKER) (test rwjx=098) 7.2 GM/DL 11.2-15.7 HEMATOCRIT (BEAKER) (test obhy=336) 22.7 % 34.1-44.9 MEAN CORPUSCULAR VOLUME (BEAKER) (test vwbx=748) 93.8 fL 79.4-94.8 MEAN CORPUSCULAR HEMOGLOBIN (BEAKER) (test 29.8 pg 25.6-32.2 vnhr=924) MEAN CORPUSCULAR HEMOGLOBIN CONC (BEAKER) (test 31.7 GM/DL 32.2-35.5 qexz=062) RED CELL DISTRIBUTION WIDTH (BEAKER) (test 15.3 % 11.7-14.4 libp=854) PLATELET COUNT (BEAKER) (test wous=986) 166 K/CU MM 150-450 MEAN PLATELET VOLUME (BEAKER) (test txxv=581) 11.6 fL 9.4-12.3 NUCLEATED RED BLOOD CELLS (BEAKER) (test 2 /100 WBC 0-0 xxdo=419) NEUTROPHILS RELATIVE PERCENT (BEAKER) (test 83 % nikr=578) LYMPHOCYTES RELATIVE PERCENT (BEAKER) (test 6 % entd=236) MONOCYTES RELATIVE PERCENT (BEAKER) (test 5 % gunb=974) EOSINOPHILS RELATIVE PERCENT (BEAKER) (test 2 % pakj=516) BASOPHILS RELATIVE PERCENT (BEAKER) (test 0 % mrjr=835) NEUTROPHILS ABSOLUTE COUNT (BEAKER) (test 4.02 K/ L 1.56-6.13 kytp=158) LYMPHOCYTES ABSOLUTE COUNT (BEAKER) (test 0.28 K/ L 1.18-3.74 riaa=514) MONOCYTES ABSOLUTE COUNT (BEAKER) (test 0.23 K/ L 0.24-0.36 ltql=641) EOSINOPHILS ABSOLUTE COUNT (BEAKER) (test 0.11 K/ L 0.04-0.36 mpiz=271) BASOPHILS ABSOLUTE COUNT (BEAKER) (test 0.01 K/ L 0.01-0.08 gcwy=931) IMMATURE GRANULOCYTES-RELATIVE PERCENT (BEAKER) 5 % 0-1 (test ahjh=8322) GLUCOMETER GLUCOSE- LAB USE [id number] 06:59:00 Test Item Value Reference Range Comments GLUCOMETER (test code=GMG) 219 mg/dL 70-100 DR YORK AWAREMeter ID: [id number]: [id number] LANA HICKEY GLUCOMETER GLUCOSE- LAB USE [id number] 04:45:00 Test Item Value Reference Range Comments GLUCOMETER (test code=GMG) 212 mg/dL 70-100 Meter ID: [id number]: [id number] PINEDA CAN
[2019-03-25 10:47] LABS: Absolute Lymphocytes (CBC) 0.9 K/uL (0.7-4.9); Basophils % 0.8 % (0-1.3); Hematocrit 27.1 % (36.0-45.0); Lymphocytes % 21.7 % (15.3-44.8); MPV 8.8 fL (7.6-11.3); RBC Red Blood Cell Count 2.97 M/uL (3.86-4.86)
[2019-03-25] MEDS ORDERED: metroNIDAZOLE 500 MG TABLET ONE (10:49)
[2019-03-25] MEDS ORDERED: DIPHENOX/ATROP SULF 1 TAB PO ONE (10:50)
[2019-03-25] MEDS ORDERED: FAMOTIDINE 20 MG/2 ML VIAL IV ONE (10:50)
[2019-03-25] MEDS ORDERED: CIPROFLOXACIN HCL 500 MG TAB ONE (10:50)
[2019-03-25] MEDS ORDERED: NA CHLORIDE 0.9% 1,000 ML ONE (10:50)
[2019-03-25 11:00] LABS: Albumin 3.8 g/dL (3.4-5.0); Bilirubin Direct 0.1 mg/dL (0-0.2); Bilirubin Total 0.3 mg/dL (0.2-1.0); Potassium 4.7 mmol/L (3.5-5.1); Protein, Total 8.7 g/dL (6.4-8.2)
--- NOTE | 2019-03-25 12:28 | EDPHYS ---
Physician Documentation [facility] Name: Emily Barbour Age: 48 yrs Sex: Female : 1970 Arrival Date: 03/25/2019 Time: 10:11 Bed 13 Private MD: Jean-Paul Cameron ED Physician Ty Cano HPI: 03/25 10:37 This 48 yrs old Female presents to ER via Ambulatory with complaints of kdr Diarrhea. 10:37 The patient presents to the emergency department with diarrhea, that is intermittent, kdr 4-6 times per day of brown copious liquid . 12:27 Onset: The symptoms/episode began/occurred gradually, 4 day(s) ago. Possible causes: kdr unknown. The symptoms are aggravated by nothing. The symptoms are alleviated by nothing. Associated signs and symptoms: Pertinent positives: abdominal pain, diarrhea, nausea, Pertinent negatives: fever, GI bleeding, vaginal discharge, vomiting. 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 iw Historical: - Allergies: 10:21 Benadryl; iw 10:21 metformin; iw 10:21 Tradjenta; iw - Home Meds: 10:31 Vitamin D Oral daily [Active]; aspirin 81 mg Oral TbEC 1 tab once daily [Active]; iw carvedilol 12.5 mg oral tab 1 tab 2 times per day [Active]; pantoprazole 40 mg oral TbEC 1 tab once daily [Active]; levothyroxine 50 mcg tab 1 tab once daily [Active]; amitriptyline 100 mg Oral tab 1 tab nightly [Active]; Myrbetriq 50 mg oral Tb24 1 tab once daily [Active]; magnesium oxide 500 mg Oral cap twice a day [Active]; Iron CR Oral daily [Active]; furosemide 40 mg Oral tab 1 tab once daily [Active]; sucralfate 1 gram Oral tab 1 tab 4 times per day [Active]; fenofibrate 160 mg Oral tab 1 tab once daily [Active]; Toujeo SoloStar 300 unit/mL (1.5 mL) subcutaneous inpn 50 unit every morning [Active]; Humalog 100 unit/mL Sub-Q soln 30 unit three times a day [Active]; Trulicity subcutaneous subcutaneous once wkly [Active]; - PMHx: 10:21 Anemia; Diabetes - IDDM; High Cholesterol; Hypertension; Renal Disease; Tendonitis in iw Elbows; - PSHx: 10:21 Cholecystectomy; Appendectomy; Hysterectomy; neck fusion; right foot; breast reduction; iw - Immunization history:: Adult Immunizations not up to date. - Social history:: Smoking status: Patient/guardian denies using tobacco. - Ebola Screening: : Patient negative for fever greater than or equal to 101.5 degrees Fahrenheit, and additional compatible Ebola Virus Disease symptoms Patient denies exposure to infectious person Patient denies travel to an Ebola-affected area in the 21 days before illness onset No symptoms or risks identified at this time. ROS: 12:27 Constitutional: Negative for fever, chills, and weight loss, Eyes: Negative for injury, kdr pain, redness, and discharge, Neck: Negative for injury, pain, and swelling, Cardiovascular: Negative for chest pain, palpitations, and edema, Respiratory: Negative for shortness of breath, cough, wheezing, and pleuritic chest pain, Back: Negative for injury and pain, : Negative for injury, bleeding, discharge, and swelling, MS/Extremity: Negative for injury and deformity, Skin: Negative for injury, rash, and discoloration, Neuro: Negative for headache, weakness, numbness, tingling, and seizure activity. Psych: Negative for depression, anxiety, suicide ideation, homicidal ideation, and hallucinations, Allergy/Immunology: Negative for hives, rash, and allergies, Endocrine: Negative for neck swelling, polydipsia, polyuria, polyphagia, and marked weight changes, Hematologic/Lymphatic: Negative for swollen nodes, abnormal bleeding, and unusual bruising. 12:27 Abdomen/GI: Positive for abdominal pain, nausea, diarrhea, abdominal cramps, very minor abdominal pain, Negative for vomiting, constipation, abdominal distension, dysphagia, hematemesis, black/tarry stool, rectal pain, rectal bleeding, bowel incontinence. Exam: 12:27 Constitutional: This is a well developed, well nourished patient who is awake, alert, kdr and in no acute distress. Head/Face: Normocephalic, atraumatic. Eyes: Pupils equal round and reactive to light, extra-ocular motions intact. Lids and lashes normal. Conjunctiva and sclera are non-icteric and not injected. Cornea within normal limits. Periorbital areas with no swelling, redness, or edema. Neck: Trachea midline, no thyromegaly or masses palpated, and no cervical lymphadenopathy. Supple, full range of motion without nuchal rigidity, or vertebral point tenderness. No Meningismus. Chest/axilla: Normal chest wall appearance and motion. Nontender with no deformity. No lesions are appreciated. Cardiovascular: Regular rate and rhythm with a normal S1 and S2. No gallops, murmurs, or rubs. Normal PMI, no JVD. No pulse deficits. Respiratory: Lungs have equal breath sounds bilaterally, clear to auscultation and percussion. No rales, rhonchi or wheezes noted. No increased work of breathing, no retractions or nasal flaring. Back: No spinal tenderness. No costovertebral tenderness. Full range of motion. Skin: Warm, dry with normal turgor. Normal color with no rashes, no lesions, and no evidence of cellulitis. MS/ Extremity: Pulses equal, no cyanosis. Neurovascular intact. Full, normal range of motion. Neuro: Awake and alert, GCS 15, oriented to person, place, time, and situation. Cranial nerves II-XII grossly intact. Motor strength 5/5 in all extremities. Sensory grossly intact. Cerebellar exam normal. Normal gait. Psych: Awake, alert, with orientation to person, place and time. Behavior, mood, and affect are within normal limits. 12:27 Abdomen/GI: Inspection: obese Bowel sounds: active, diminished, in all quadrants, Palpation: soft, Very minor tenderness diffusely with no rebound, mass, is not appreciated, rebound tenderness, is not appreciated, voluntary guarding, is not appreciated, involuntary guarding, is not appreciated. Vital Signs: 10:22 BP 109 / 53; Pulse 76; Resp 16; Temp 98.1; Pulse Ox 100% on R/A; Weight 97.52 kg; iw Height 5 ft. 5 in. (165.10 cm); Pain 4/10; 11:00 BP 122 / 68; Pulse 75; Resp 18; Pulse Ox 99% on R/A; ph 12:00 BP 118 / 78; Pulse 77; Resp 16; Pulse Ox 99% ; ph 13:30 BP 126 / 78; Pulse 77; Resp 20; Pulse Ox 100% ; ph 15:13 BP 138 / 77; Pulse 71; Resp 18; Temp 97.8; Pulse Ox 98% on R/A; ph 16:30 BP 140 / 78; Pulse 76; Resp 18; Temp 97.9; Pulse Ox 100% on R/A; ph 10:22 Body Mass Index 35.78 (97.52 kg, 165.10 cm) iw MDM: 12:27 Patient medically screened. kdr 12:27 Data reviewed: vital signs, lab test result(s), radiologic studies. Counseling: I had a kdr detailed discussion with the patient and/or guardian regarding: the historical points, exam findings, and any diagnostic results supporting the discharge/admit diagnosis, lab results, radiology results, the need for further work-up and treatment in the hospital. 03/25 10:27 Order name: Basic Metabolic Panel; Complete Time: 11:14 kdr 03/25 10:27 Order name: CBC with Diff; Complete Time: 11:14 kdr 03/25 10:27 Order name: Creatinine for Radiology; Complete Time: 11:14 kdr 03/25 10:27 Order name: Hepatic Function; Complete Time: 11:14 kdr 03/25 10:27 Order name: Lipase; Complete Time: 11:14 kdr 12 14:13 Order name: Comprehensive Metabolic Panel EDHI 03/25 14:13 Order name: Comprehensive Metabolic Panel EDHI 03/25 14:15 Order name: CBC with Automated Diff EDMS 03/25 14:15 Order name: CBC with Automated Diff EDMS 03/25 15:34 Order name: Transferrin Sat/Iron Binding; Complete Time: 16:54 EDMS 03/25 15:34 Order name: Ferritin; Complete Time: 16:54 EDHI 03/25 10:27 Order name: IV Saline Lock; Complete Time: 10:42 kdr 03/25 10:27 Order name: Labs collected and sent; Complete Time: 10:42 kdr 03/25 14:13 Order name: CONS Pharmacy Consult EDHI 03/25 14:15 Order name: Clear Liquid EDHI Administered Medications: 10:58 Drug: NS 0.9% 1000 ml Route: IV; Rate: 1 bolus; Site: right antecubital; ph 12:30 Follow up: Response: No adverse reaction; IV Status: Completed infusion ph 10:59 Drug: Pepcid 20 mg Route: IVP; Site: right antecubital; ph 12:00 Follow up: Response: No adverse reaction ph 11:00 Drug: LoMOTIL 2 tabs Route: PO; ph 12:00 Follow up: Response: No adverse reaction ph 11:00 Drug: Flagyl 500 mg Route: PO; ph 12:00 Follow up: Response: No adverse reaction ph 11:00 Drug: Cipro 500 mg Route: PO; ph 12:00 Follow up: Response: No adverse reaction ph Disposition: 03/25/19 12:27 Hospitalization ordered by Prema Allen for Observation. Preliminary diagnosis is Diarrhea, dehydration, Acute on chronic renal dysfunction, Anemia. - Bed requested for Telemetry/MedSurg (observation). - Status is Observation. ph - Condition is Fair. - Problem is an acute exacerbation. - Symptoms have improved. UTI on Admission? No Signatures: Dispatcher [employer] Sadaf Valle RN RN dw Ty Cano MD MD kdr Mickail, Joel, PA PA jmm Williams, Irene, RN RN iw Suly Haque RN RN ph Corrections: (The following items were deleted from the chart) 14:42 12:27 Hospitalization Ordered by Prema Allen MD for Observation. Preliminary dw diagnosis is Diarrhea, dehydration, Acute on chronic renal dysfunction, Anemia. Bed requested for Telemetry/MedSurg (observation). Status is Observation. Condition is Fair. Problem is an acute exacerbation. Symptoms have improved. UTI on Admission? No. kdr 17:15 14:42 03/25/2019 12:27 Hospitalization Ordered by Prema Allen MD for Observation. ph Preliminary diagnosis is Diarrhea, dehydration, Acute on chronic renal dysfunction, Anemia. Bed requested for Telemetry/MedSurg (observation). Status is Observation. Condition is Fair. Problem is an acute exacerbation. Symptoms have improved. UTI on Admission? No. dw
--- NOTE | 2019-03-25 12:28 | ER ---
Nurse's Notes [facility] Name: Emily Barbour Age: 48 yrs Sex: Female : 1970 Arrival Date: 03/25/2019 Time: 10:11 Bed 13 Private MD: Jean-Paul Cameron Diagnosis: Diarrhea, dehydration, Acute on chronic renal dysfunction, Anemia Presentation: 03/25 10:22 Presenting complaint: Patient states: diarrhea X 4 days, no vomiting +nausea. iw Transition of care: patient was not received from another setting of care. Onset of symptoms was March 21, 2019. Risk Assessment: Do you want to hurt yourself or someone else? Patient reports no desire to harm self or others. Initial Sepsis Screen: Does the patient meet any 2 criteria? No. Patient's initial sepsis screen is negative. Does the patient have a suspected source of infection? No. Patient's initial sepsis screen is negative. Care prior to arrival: None. 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 iw Historical: - Allergies: 10:21 Benadryl; iw 10:21 metformin; iw 10:21 Tradjenta; iw - Home Meds: 10:31 Vitamin D Oral daily [Active]; aspirin 81 mg Oral TbEC 1 tab once daily [Active]; iw carvedilol 12.5 mg oral tab 1 tab 2 times per day [Active]; pantoprazole 40 mg oral TbEC 1 tab once daily [Active]; levothyroxine 50 mcg tab 1 tab once daily [Active]; amitriptyline 100 mg Oral tab 1 tab nightly [Active]; Myrbetriq 50 mg oral Tb24 1 tab once daily [Active]; magnesium oxide 500 mg Oral cap twice a day [Active]; Iron CR Oral daily [Active]; furosemide 40 mg Oral tab 1 tab once daily [Active]; sucralfate 1 gram Oral tab 1 tab 4 times per day [Active]; fenofibrate 160 mg Oral tab 1 tab once daily [Active]; Toujeo SoloStar 300 unit/mL (1.5 mL) subcutaneous inpn 50 unit every morning [Active]; Humalog 100 unit/mL Sub-Q soln 30 unit three times a day [Active]; Trulicity subcutaneous subcutaneous once wkly [Active]; - PMHx: 10:21 Anemia; Diabetes - IDDM; High Cholesterol; Hypertension; Renal Disease; Tendonitis in iw Elbows; - PSHx: 10:21 Cholecystectomy; Appendectomy; Hysterectomy; neck fusion; right foot; breast reduction; iw - Immunization history:: Adult Immunizations not up to date. - Social history:: Smoking status: Patient/guardian denies using tobacco. - Ebola Screening: : Patient negative for fever greater than or equal to 101.5 degrees Fahrenheit, and additional compatible Ebola Virus Disease symptoms Patient denies exposure to infectious person Patient denies travel to an Ebola-affected area in the 21 days before illness onset No symptoms or risks identified at this time. Screenin:15 Abuse screen: Denies threats or abuse. Denies injuries from another. Nutritional ph screening: No deficits noted. Tuberculosis screening: No symptoms or risk factors identified. Fall Risk None identified. Assessment: 10:45 General: Appears in no apparent distress. comfortable, well groomed, Behavior is calm, ph cooperative, appropriate for age, Denies fever. Pain: Denies pain. Neuro: Level of Consciousness is awake, alert, obeys commands, Oriented to person, place, time, situation. Cardiovascular: Capillary refill < 3 seconds in bilateral fingers Patient's skin is warm and dry. Respiratory: Airway is patent Respiratory effort is even, unlabored. GI: Abdomen is round non-distended, Bowel sounds present X 4 quads. Reports diarrhea, nausea, Patient currently denies bloody stool. Derm: Skin is intact, is healthy with good turgor, Skin is pink, warm \T\ dry. Musculoskeletal: Circulation, motion, and sensation intact. Range of motion: intact in all extremities. 12:00 Reassessment: Patient appears in no apparent distress at this time. Patient and/or ph family updated on plan of care and expected duration. Pain level reassessed. Patient is alert, oriented x 3, equal unlabored respirations, skin warm/dry/pink. 13:00 Reassessment: Patient appears in no apparent distress at this time. Patient and/or ph family updated on plan of care and expected duration. Pain level reassessed. Patient is alert, oriented x 3, equal unlabored respirations, skin warm/dry/pink. 14:00 Reassessment: Patient appears in no apparent distress at this time. Patient and/or ph family updated on plan of care and expected duration. Pain level reassessed. Patient is alert, oriented x 3, equal unlabored respirations, skin warm/dry/pink. 15:32 Reassessment: Patient appears in no apparent distress at this time. Patient and/or ph family updated on plan of care and expected duration. Pain level reassessed. Patient is alert, oriented x 3, equal unlabored respirations, skin warm/dry/pink. Attempted to call report to second floor, receiving nurse just received new pt, will call back in 30 min. 16:15 Reassessment: Patient appears in no apparent distress at this time. Patient and/or ph family updated on plan of care and expected duration. Pain level reassessed. Patient is alert, oriented x 3, equal unlabored respirations, skin warm/dry/pink. Attempted to call report, placed on hold > 5 min, will attempt again. 16:30 Reassessment: Patient appears in no apparent distress at this time. Patient and/or ph family updated on plan of care and expected duration. Pain level reassessed. Patient is alert, oriented x 3, equal unlabored respirations, skin warm/dry/pink. Attempted to call report to second floor, no answer at nurses station. Vital Signs: 10:22 BP 109 / 53; Pulse 76; Resp 16; Temp 98.1; Pulse Ox 100% on R/A; Weight 97.52 kg; iw Height 5 ft. 5 in. (165.10 cm); Pain 4/10; 11:00 BP 122 / 68; Pulse 75; Resp 18; Pulse Ox 99% on R/A; ph 12:00 BP 118 / 78; Pulse 77; Resp 16; Pulse Ox 99% ; ph 13:30 BP 126 / 78; Pulse 77; Resp 20; Pulse Ox 100% ; ph 15:13 BP 138 / 77; Pulse 71; Resp 18; Temp 97.8; Pulse Ox 98% on R/A; ph 16:30 BP 140 / 78; Pulse 76; Resp 18; Temp 97.9; Pulse Ox 100% on R/A; ph 10:22 Body Mass Index 35.78 (97.52 kg, 165.10 cm) iw ED Course: 10:11 Patient arrived in ED. mr 10:11 Jean-Paul Cameron DO is Private Physician. mr 10:12 Ty Cano MD is Attending Physician. kdr 10:22 Triage completed. iw 10:22 Arm band placed on. iw 10:28 Suly Haque RN is Primary Nurse. ph 10:41 Initial lab(s) drawn, by az, sent to lab. Inserted saline lock: 22 gauge in right jb1 antecubital area, using aseptic technique. Blood collected. 11:15 Patient has correct armband on for positive identification. Bed in low position. Call ph light in reach. Side rails up X 1. Pulse ox on. NIBP on. Door closed. Noise minimized. Warm blanket given. Head of bed elevated. 12:25 Prema Allen MD is Hospitalizing Provider. kdr 16:55 No provider procedures requiring assistance completed. Patient admitted, IV remains in ph place. Administered Medications: 10:58 Drug: NS 0.9% 1000 ml Route: IV; Rate: 1 bolus; Site: right antecubital; ph 12:30 Follow up: Response: No adverse reaction; IV Status: Completed infusion ph 10:59 Drug: Pepcid 20 mg Route: IVP; Site: right antecubital; ph 12:00 Follow up: Response: No adverse reaction ph 11:00 Drug: LoMOTIL 2 tabs Route: PO; ph 12:00 Follow up: Response: No adverse reaction ph 11:00 Drug: Flagyl 500 mg Route: PO; ph 12:00 Follow up: Response: No adverse reaction ph 11:00 Drug: Cipro 500 mg Route: PO; ph 12:00 Follow up: Response: No adverse reaction ph Outcome: 12:27 Decision to Hospitalize by Provider. kdr 16:56 Admitted to Med/surg accompanied by tech, via wheelchair, room 224, with chart. ph 16:56 Condition: stable 16:56 Instructed on the need for admit. 17:15 Patient left the ED. ph Signatures: Felipe Dee jb1 Ty Cano MD MD [facility] CenterAmanda price mr Laila Solis, JOCY RN iw Suly Haque RN RN ph
[2019-03-25] MEDS ORDERED: ONDANSETRON 4 MG/2 ML VIAL IV PRN (14:09)
[2019-03-25] MEDS ORDERED: MORPHINE 2 MG/ML SYR IV PRN (14:09)
[2019-03-25] MEDS ORDERED: GABAPENTIN 300 MG CAP PO PRN (14:12)
[2019-03-25] MEDS ORDERED: HYDRALAZINE HCL 20 MG/ML VIAL IV PRN (14:18)
--- NOTE | 2019-03-25 14:21 | P.PN ---
Date of Service: 03/25/19 pt with ARF on ckd stage IV , dehydration and diarrhea , follow c diff , admit to obs , gentle IVF
[2019-03-25] MEDS: NA CHLORIDE 0.9% 1,000 ML IV SCH ×2 (15:00→17:55)
[2019-03-25 15:33] LABS: Ferritin 438.8 ng/mL (8-388)
[2019-03-25] MEDS: INSULIN -REGULAR HUMAN 50 UNIT/0.5 ML ML SQ SCH ×2 (16:30→20:52)
[2019-03-25 17:38] VITALS: BMI 36.1
[2019-03-25] MEDS: carvediloL 12.5 MG TAB PO SCH (20:45)
[2019-03-25] MEDS: HEPARIN 5000 UNIT/ML 1 ML VIAL SQ SCH (20:46)
[2019-03-25] MEDS ORDERED: HOME MED 1 EA UNK (Amitriptyline Hcl [Amitriptyline Hcl] 100 MG) PO SCH (21:00)
[2019-03-25] MEDS ORDERED: AMITRIPTYLINE 50 MG TAB PO SCH (21:00)
[2019-03-25] MEDS ORDERED: INFLUENZA VACCINE (for 3y+) 0.5 ML DOSE IMVAC ONE (21:00)
[2019-03-25] MEDS ORDERED: HOME MED 1 EA UNK (Magnesium Oxide [Magnesium] 1 TAB) PO SCH (21:00)
[2019-03-26] MEDS: NA CHLORIDE 0.9% 1,000 ML IV SCH ×3 (01:00→11:00)
--- NOTE | 2019-03-26 01:29 | HP ---
Date of Admission: 03/25/2019 Presenting Complaint: Diarrhea and weakness. History Of Present Illness: Ms. Angle Diaz is a 48-year-old female with past medical history of hypertension, diabetes, CKD stage 4, follows with Dr. Cameron, who presented today because of diarrhea since the last 4 days. She admits to abdominal cramps. She denies any hematochezia or hemoptysis. She admits to nausea, but no vomiting. She denies any sick contacts at home. She denie s any recent antibiotics use. She admits to decreased p.o. intake with increasing weakness. She is aware of her kidney disease and states her EGFR ranged about 20%. Review of records shows a previous creatinine 6 months ago was 2.6, but creatinine was noted on presentation in the ED to be elevated t o 3.6. Patient is being admitted for presumed dehydration and gastroenteritis. Past Medical History: Significant for hypertension, diabetes mellitus, CKD stage 4, hyperlipidemia, restless legs syndrome, and hypothyroidism. Medications: Home medications include multiple. See MAR. Past Surgical History: Cholecystectomy, appendectomy, hysterectomy, breast reduction as well as neck and foot surgery. Family History: No history of end-stage renal disease. No history of GI cancer. Allergies: SIGNIFICANT FOR BENADRYL, METFORMIN MULTIPLE ALLERGIES. Review of Systems: All systems reviewed x14 were negative except as mentioned above. Physical Examination: Vital Signs: Current vitals on presentation, blood pressure of 109/53, pulse of 76, respiratory rate of 18, temperature 98.1, O2 saturation of 100% on room air. Weight 97 kg. General: Obese, middle-aged female, not in any distress. HEENT: Head is atraumatic, normocephalic. Pupils equal, reactive to light. Neck: No JVD. No carotid bruits. Respiratory: Good air entry bilaterally. No crepitations. Cardiovascular: S1, S2. Rate and rhythm regular. GI: Abdomen full, soft, nontender. No area of palpable organomegaly. Rectal: Deferred. Extremities: No pedal edema. No calf tenderness. Neurologic: Patient is alert, oriented. Cranial nerves 2 through 12 grossly intact. Laboratory Data: WBC 4.1, hemoglobin 9.1. Sodium 137, potassium 4.7, bicarb 23, BUN 55, creatinine 3.69. AST and alkaline phosphatase normal. Albumin 3.8. Platelets 202, neutrophils 68%. Impression: 1.Presumed gastroenteritis, rule out Clostridium difficile colitis. 2.Acute renal failure, likely prerenal. 3.Baseline chronic kidney disease stage 4. 4.Hypertension. 5.Diabetes mellitus. Plan: We will admit patient to observation. We will manage patient for the followin.Gastroenteritis. We will obtain stool for C diff. We will start p.r.n. antiemetic medication wit h Zofran. We will start patient on clear liquid diet now. 2.Acute renal failure. We will start gentle hydration with normal saline. We will monitor potassiu m level. Baseline chronic kidney disease noted. Follow daily BNP. 3.Hypertension. We will monitor for hypotension and continue home medications. 4.Diabetes mellitus with insulin sliding scale for now. We will hold home medications. 5.Deep venous thrombosis prophylaxis. Subcutaneous heparin. 6.Advance directive. Discussed with patient. Patient wishes to be full code. Total time spent in review of record, discussion with patient, and evaluation, greater than 60 minute sKelli LIMON/MODL Voice ID: [id number]
[2019-03-26 06:16] LABS: Absolute Lymphocytes (CBC) 1.2 K/uL (0.7-4.9); Basophils % 0.9 % (0-1.3); Hematocrit 25.1 % (36.0-45.0); MPV 8.9 fL (7.6-11.3); RBC Red Blood Cell Count 2.79 M/uL (3.86-4.86)
[2019-03-26] MEDS ORDERED: LEVOTHYROXINE SOD 0.05 MG TABLET PO SCH (06:30)
[2019-03-26 06:33] LABS: Albumin 3.4 g/dL (3.4-5.0); Bilirubin Total 0.3 mg/dL (0.2-1.0); Potassium 4.8 mmol/L (3.5-5.1); Protein, Total 7.8 g/dL (6.4-8.2)
[2019-03-26 07:26] LABS: Urine Appearance CLEAR; Urine Bilirubin NEGATIVE (NEG); Urine Blood NEGATIVE (NEG); Urine Color YELLOW; Urine Glucose NEGATIVE (NEG); Urine Protein 1+ (NEG); Urine Urobilinogen 0.2 mg/dL (0.2-1.0)
[2019-03-26] MEDS ORDERED: PANTOPRAZOLE 40MG TABLET PO SCH (07:30)
[2019-03-26] MEDS: INSULIN -REGULAR HUMAN 50 UNIT/0.5 ML ML SQ SCH ×2 (07:30→11:30)
[2019-03-26 07:44] LABS: Urine Bacteria 20-50 /HPF (<20); Urine Culture Reflex Order REFLEXED; Urine RBC <5 /HPF (NONE SEEN)
[2019-03-26] MEDS ORDERED: HOME MED 1 EA UNK (Omeprazole [Omeprazole] 1 CAP) PO SCH (09:00)
[2019-03-26] MEDS ORDERED: DULOXETINE 30 MG CAP PO SCH (09:00)
[2019-03-26] MEDS ORDERED: MAGNESIUM OXIDE 400 MG TAB PO SCH (09:00)
[2019-03-26] MEDS ORDERED: ASPIRIN 81 MG CHEWABLE TABLET PO SCH (09:00)
[2019-03-26] MEDS: HEPARIN 5000 UNIT/ML 1 ML VIAL SQ SCH (09:42)
[2019-03-26] MEDS: carvediloL 12.5 MG TAB PO SCH (09:42)
[2019-03-26 11:15] VITALS: O2SAT 97
--- NOTE | 2019-03-26 12:01 | P.DS ---
Admission Date: 03/25/19 Discharge Date: 03/26/19 Disposition: ROUTINE DISCHARGE Discharge Condition: GOOD Brief History of Present Illness: Presenting Complaint: Diarrhea and weakness. History Of Present Illness: Ms. Angle Diaz is a 48-year-old female with past medical history of hypertension, diabetes, CKD stage 4, follows with Dr. Cameron, who presented today because of diarrhea since the last 4 days. She admits to abdominal cramps. She denies any hematochezia or hemoptysis. She admits to nausea, but no vomiting. She denies any sick contacts at home. She denies any recent antibiotics use. She admits to decreased p.o. intake with increasing weakness. She is aware of her kidney disease and states her EGFR ranged about 20%. Review of records shows a previous creatinine 6 months ago was 2.6, but creatinine was noted on presentation in the ED to be elevated to 3.6. Patient is being admitted for presumed dehydration and gastroenteritis. Hospital Course: Patient admitted for ARF on baseline CKD stage IV in setting of gastroenteritis with nausea and vomiting . Her creatinine was elevated at 3.7 , she was given IVF and her creatinine started to improve to 3.4 now . she was noted with anemia and given IV iron infusion ,. she will be dc home and follow with her PCP Vital Signs/Physical Exam: Temp Pulse Resp BP Pulse Ox 97.5 F 80 20 149/77 H 97 03/26/19 08:00 03/26/19 09:42 03/26/19 08:00 03/26/19 09:42 03/26/19 08:00 General: Alert, In no apparent distress, Oriented x3 HEENT: Atraumatic, Normocephalic, PERRLA, Mucous membr. moist/pink Neck: Supple, 2+ carotid pulse no bruit Respiratory: Clear to auscultation bilaterally, Normal air movement Cardiovascular: No edema, Normal pulses, Regular rate/rhythm, Normal S1 S2 Gastrointestinal: Normal bowel sounds, Soft and benign Musculoskeletal: No clubbing, No swelling Integumentary: No rashes, No breakdown Neurological: Normal gait, Normal speech, Normal strength at 5/5 x4 extr Laboratory Data at Discharge: WBC 3.7 K/uL (4.3-10.9) L 03/26/19 05:44 Hgb 8.5 g/dL (12.0-15.0) L 03/26/19 05:44 Hct 25.1 % (36.0-45.0) L 03/26/19 05:44 Plt Count 176 K/uL (152-406) 03/26/19 05:44 Sodium 139 mmol/L (136-145) 03/26/19 05:44 Potassium 4.8 mmol/L (3.5-5.1) 03/26/19 05:44 BUN 53 mg/dL (7-18) H 03/26/19 05:44 Creatinine 3.40 mg/dL (0.55-1.3) H 03/26/19 05:44 Glucose 74 mg/dL (74-106) 03/26/19 05:44 Total Bilirubin 0.3 mg/dL (0.2-1.0) 03/26/19 05:44 AST 14 U/L (15-37) L 03/26/19 05:44 ALT 20 U/L (12-78) 03/26/19 05:44 Alkaline Phosphatase 32 U/L (45-117) L 03/26/19 05:44 Lipase 290 U/L (73-393) 03/25/19 10:35 Home Medications: Amitriptyline HCl 100 mg PO BEDTIME 12/23/18 Aspirin 1 tab PO DAILY 12/23/18 Cholecalciferol (Vitamin D3) [Vitamin D3] 1 cap PO DAILY 12/23/18 Cyanocobalamin (Vitamin B-12) [B-12] 1 tab PO DAILY 12/23/18 Duloxetine HCl [Cymbalta] 1 tab PO DAILY 12/23/18 Ferrous Fumarate/Ascorbic Acid [Hola-Sequels 65-25 mg Caplet] 1 tab PO DAILY Insulin Glargine,Hum.rec.anlog [Toujeo Solostar] 50 unit SQ DAILY 12/23/18 Insulin Lispro [Humalog] 30 unit SQ TID 12/23/18 Levothyroxine [Synthroid*] 1 tab PO DAILY 12/23/18 Magnesium Oxide [Magnesium] 1 tab PO BID 12/23/18 Melatonin 1 tab PO DAILY 12/23/18 Mirabegron [Myrbetriq] 1 tab PO DAILY 12/23/18 carvediloL [Carvedilol] 1 tab PO BID 12/23/18 Fenofibrate [Tricor*] 1 tab PO BEDTIME #30 tab 12/25/18 Chauncey-3 Fatty Acids/Fish Oil [Fish Oil 1,000 mg Softgel] 2 each PO BID #120 capsule 12/25/18 Dulaglutide [Trulicity] 1.5 mg SQ SEECOM 03/25/19 Pantoprazole [Protonix Tab*] 40 mg PO DAILY 03/25/19 Sucralfate [Carafate*] 1 gm PO QID 03/25/19 Diet: ADA Activity: Ad brenden Time spent managing pt's care (in minutes): 35
[2019-03-26 13:56] VITALS: BP 113/59; TEMP 98
[2019-03-27] MEDS ORDERED: SOD FERRIC GLUC COMPLX/SUCROSE 125 MG in NA CHLORIDE 0.9% 100 ML IV SCH (09:00)
== END 2019-03-26 15:25 | disposition home or self-care (01) ==
LOC: ER 10:09 → ERHOLD 14:10 → 2ND 16:58
PROVIDERS: ADMIT Internal Medicine; ATTEND Internal Medicine
DX: K52.9 Noninfective gastroenteritis and colitis, unspecified (principal); I12.9 Hypertensive chronic kidney disease with stage 1 through stage 4 chronic kidney disease, or unspecified chronic kidney disease; E11.22 Type 2 diabetes mellitus with diabetic chronic kidney disease; N18.4 Chronic kidney disease, stage 4 (severe); N17.9 Acute kidney failure, unspecified; D64.9 Anemia, unspecified; Z23 Encounter for immunization
CPT/HCPCS: 96361; 87088; 85025 ×2; 81001; 87086; 80048; 36415; 82947 ×5; 80076; 87077; 87186; 82728; 83690; 83540; 80053; 84466; 90471; 96374; 99285; J1644 ×2; Q2035; J7030 ×3; G0378 ×3

== ENCOUNTER 2019-06-06 09:34 | Emergency (ER) | payer BC ==
--- OUTSIDE RECORDS SUMMARY | 2019-06-06 09:38 | XMS REPORT ---
:1970 [facility] Address [address] [place] [address] Care Team Providers Name Role Phone NABILA [...] ID 2018 2018 Outpatient C XIOMARA Aurelio [facility] [id number] 04:57:00 08:15:00 BERE Results Test Description Test Time Test Comments Text Results Atomic Results Result Comments BONE MARROW EXAM 2018-11-14 14:30:00 Bone Marrow Pathology Report Case: [id number] Authorizing Provider: Tiff Colmenares MD Collected: 10/20/2018 1030 Ordering Location: [address] Received: 10/20/2018 1151 Service Pathologist: Damián [...] CIRCULATING BLASTS. Signing Pathologist Direct Phone Line: [phone] signed by Damián Mckeon MD on 10/24/2018 at 4:50 PMThere is no morphologic or immunophenotypic evidence of lymphoma or acute leukemia. This patient has a reported clinical history of anemia and hepatosplenomegaly as per the electronic medical records in [facility]. The morphologic finding of the megakaryocytes is nonspecific and could be reactive however they raise concern for the presence of an evolving myeloid neoplasm. Molecular and cytogenetic studies are currently pending, with results to be issued in an addendum report. 80639; 03163; 98706 x 2; 00040; 25648, 34581, 53495k4Lyewyl Bone marrow The case is received in three parts all labeled with the patient's name, Jose Barbour, date of 1970, and accession number, [id number], which corresponds to the accompanying requisition page [...] evaluated Immunohistochemistry technical testing was performed at [facility], Pathology Laboratory where it was [...] Comments FLOW CYTOMETRY RESULT POINTER (OPAL) (test chmt=9211) See Separate Report FLOW CYTOMETRY AP CASE # (OPAL) (test hpsk=6003) [id number] FLOW [id number] 09:46:00Flow Cytometry Report Case: [id number] Authorizing Provider: Tiff Colmenares MD Collected: 10/20/2018 1151 Ordering Location: [address] Received: 2018 1336 Service Pathologist: Damián Mckeon MD Specimen: Other BONE MARROW, FLOWCYTOMETRY:NO MONOCLONAL B CELL POPULATION.NO ABNORMAL T CELL POPULATION.NO INCREASED BLAST POPULATION.CORRELATION WITH MORPHOLOGIC FINDINGS REQUIRED. at 9: 46 [id number] marrow CD8, surface-[place], CD56, surface-Lambda, CD5, CD19 , CD10, CD3, CD20, CD4, CD45, CD14, CD13, CD33, CD117, CD34, cKappa, cLambda, CD38, RW663Alszembl Viability: 97.2% Blasts: The dim CD45+ CD34+ [...] developed and their performance characteristics determined by [facility]. Theyhave not been cleared or approved by [...] ANTI-NUCLEAR ANTIBODY (ANGELES) (BEAKER) (test Positive Negative sgub=543) Test performed by IFA method.ANGELES TITER AND [id number] 11:18:00 Test Item Value Reference Range Comments ANGELES TITER (BEAKER) (test togm=0235) :160 ANGELES PATTERN (BEAKER) (test mxtc=6416) Nucleolar HEPATITIS A [id number] 08:30:00 Test Item Value Reference Range Comments HEPATITIS A IGM ANTIBODY (BEAKER) (test Nonreactive Nonreactive cqee=313) HEPATITIS A IGG ANTIBODY (BEAKER) (test Reactive Nonreactive valb=2204) POCT-GLUCOSE [id number] 08:29:00 Test Item Value Reference Range Comments POC-GLUCOSE METER (CosharedAKER) 270 mg/dL 70-110 TESTED AT [address] (test xwok=8464) [facility] [address] HEPATITIS B [id number] 08:29:00 Test Item Value Reference Range Comments HEPATITIS B CORE TOTAL ANTIBODY (BEAKER) (test Nonreactive Nonreactive ssof=537) HEPATITIS B SURFACE ANTIBODY (BEAKER) (test < mIU/mL <8.0 ajgx=699) HEPATITIS B SURFACE ANTIGEN (2) (BEAKER) (test Nonreactive Nonreactive njjz=2990) BASIC METABOLIC [id number] 06:54:00 Test Item Value Reference Range Comments SODIUM (BEAKER) (test 131 meq/L 136-145 jpqj=740) POTASSIUM (BEAKER) (test 4.7 meq/L 3.5-5.1 pffc=127) CHLORIDE (BEAKER) (test 96 meq/L 98-107 hdsl=531) CO2 (BEAKER) (test 25 meq/L 22-29 irhd=878) BLOOD UREA NITROGEN 62 mg/dL 7-21 (BEAKER) (test swyx=028) CREATININE (BEAKER) (test 2.80 mg/dL 0.57-1.25 clcj=703) GLUCOSE RANDOM (BEAKER) 278 mg/dL 70-105 (test mwry=601) CALCIUM (BEAKER) (test 9.3 mg/dL 8.4-10.2 xpbw=889) EGFR (BEAKER) (test 18 mL/min/1.73 sq m ESTIMATED GFR IS NOT rpxu=6980) ACCURATE CREATININE CLEARANCE IN PREDICTING GLOMERULAR FILTRATION RATE. ESTIMATED GFR IS NOT APPLICABLE FOR DIALYSIS PATIENTS. [id number] 06:50:00 Test Item Value Reference Range Comments MAGNESIUM (BEAKER) (test gmjj=811) 2.1 mg/dL 1.6-2.6 HEPATIC FUNCTION [id number] 06:50:00 Test Item Value Reference Range Comments TOTAL PROTEIN (BEAKER) (test issc=637) 7.7 gm/dL 6.0-8.3 ALBUMIN (BEAKER) (test kuxs=0744) 3.5 g/dL 3.5-5.0 BILIRUBIN TOTAL (BEAKER) (test hazk=431) 0.4 mg/dL 0.2-1.2 BILIRUBIN DIRECT (BEAKER) (test snpe=168) 0.2 mg/dL 0.1-0.5 ALKALINE PHOSPHATASE (BEAKER) (test qurl=345) 61 U/L 40-150 AST (SGOT) (BEAKER) (test sbzt=032) 39 U/L 5-34 ALT (SGPT) (BEAKER) (test vrcb=611) 253 U/L 6-55 LACTATE DEHYDROGENASE (LDH)2018-10-21 06:50:00 Test Item Value Reference Range Comments LACTATE DEHYDROGENASE (BEAKER) (test ytjy=586) 224 U/L 125-220 [id number] 06:20:00 Test Item Value Reference Range Comments FERRITIN (BEAKER) (test tomk=946) 1162 ng/mL 5-275 POCT-GLUCOSE [id number] 21:09:00 Test Item Value Reference Range Comments POC-GLUCOSE METER (BEAKER) 336 mg/dL 70-110 Notified JOCY ARVIZU/TESTED AT [facility] (test yaiz=2471) [address] [place] [address] POCT-GLUCOSE [id number] 18:17:00 Test Item Value Reference Range Comments POC-GLUCOSE METER (BEAKER) 308 mg/dL 70-110 TESTED AT [address] (test gszf=3862) [facility] [address] PROTEIN ELECTROPHORESIS, [id number] 17:39:00 Test Item Value Reference Range Comments ALBUMIN FRACTION (BEAKER) 3.0 g/dL 3.5-5.5 (test llhb=590) ALPHA 1 FRACTION (BEAKER) 0.4 g/dL 0.2-0.4 (test dhfa=994) ALPHA 2 FRACTION (BEAKER) 1.2 g/dL 0.5-0.9 (test mvrr=042) BETA FRACTION (BEAKER) (test 0.8 g/dL 0.6-1.1 bpgt=060) GAMMA GLOBULIN FRACTION 2.2 g/dL 0.7-1.7 (BEAKER) (test pxxy=952) INTERPRETATION-119 (BEAKER) Total protein and albumin (test fqjd=2044) decreased. Alpha-1 and alpha-2 globulin percentages increased. Gamma increased in a diffuse fashion. This indicates an acute phase response and concomitant chronic immune or inflammatory response. TKYA-XCPVBSSBXPT-561 Armani To M.D. (electonic (BEAKER) (test gqmh=2434) signature) PROTEIN TOTAL SERUM, SPEP 7.6 gm/dL 6.0-8.3 (BEAKER) (test lrrz=4242) BONE MARROW PROCESS.2018-10-20 12:02:00 Test Item Value Reference Range Comments ANATOMIC CASE# (OPAL) (test ewxy=5426) [id number] ORDERED BY DOCTOR# (OPAL) (test hrls=8885) Escudier PERFORMED BY DOCTOR# (OPAL) (test oqrh=0509) Cora CLOT RECEIVED? (BEAKER) (test yagm=4205) Yes BIOPSY RECEIVED? (BEAKER) (test dlav=4655) Yes CULTURE RECEIVED? (BEAKER) (test cnnm=4785) No FLOW RECEIVED? (BEAKER) (test rlir=6212) Yes CYTOGENICS? (BEAKER) (test wuap=6495) Yes MOLECULAR GENETICS? (BEAKER) (test chsh=0309) Yes Good collection by Dr Curran slides are good(Rosa)CT, BIOPSY, BONE [id number] 11:46:00Reason for exam:->anemia, hepatosplenomegalyFINAL REPORT CT-guided aspiration [...] technique, CT fluoroscopic guidance and a 12-gauge Flayr core biopsy system, initially a nine cc aspiration of the posterior left iliac bone was performed. This wasgiven to the engineering specialist technician who was present at the time of the study and deemed adequate. Subsequently, a core biopsy was obtained. This was also given to the engineering specialist technician. COMPLICATIONS:None. ESTIMATED BLOOD LOSS: Minimal. Patient Disposition: The patient was in the same state post procedure as preprocedure. IMPRESSION: Successful CT-guided aspiration and core biopsy of the bone marrow. Signed: Long Shepherd MDReport Verified Date/Time: 10/20/2018 11:46:15 Reading Location: [facility] C013X [facility] Consult Reading Room Electronically signed by: LONG SHEPHERD M.D. on 08/2018 11:46 AMPOCT-GLUCOSE [id number] 11:37:00 Test Item Value Reference Range Comments POC-GLUCOSE METER (BEAKER) 213 mg/dL 70-110 TESTED AT [facility] [address] [facility] (test pfnz=2704) [facility] [address] CBC W/PLT COUNT & AUTO [id number] 10:17:00 Test Item Value Reference Range Comments WHITE BLOOD CELL COUNT (BEAKER) (test vhth=342) 5.6 K/ L 3.5-10.5 RED BLOOD CELL COUNT (BEAKER) (test klir=409) 3.27 M/ L 3.93-5.22 HEMOGLOBIN (BEAKER) (test uewc=909) 9.5 GM/DL 11.2-15.7 HEMATOCRIT (BEAKER) (test nssy=768) 29.8 % 34.1-44.9 MEAN CORPUSCULAR VOLUME (BEAKER) (test ohum=158) 91.1 fL 79.4-94.8 MEAN CORPUSCULAR HEMOGLOBIN (BEAKER) (test 29.1 pg 25.6-32.2 cdvz=544) MEAN CORPUSCULAR HEMOGLOBIN CONC (BEAKER) (test 31.9 GM/DL 32.2-35.5 wbsb=820) RED CELL DISTRIBUTION WIDTH (BEAKER) (test 15.1 % 11.7-14.4 chbq=153) PLATELET COUNT (BEAKER) (test ytxd=688) 260 K/CU MM 150-450 MEAN PLATELET VOLUME (BEAKER) (test nmfj=560) 11.1 fL 9.4-12.3 NUCLEATED RED BLOOD CELLS (BEAKER) (test 0 /100 WBC 0-0 ybio=407) (CELLAVISION MANUAL DIFF)2018-10-20 10:17:00 Test Item Value Reference Range Comments NEUTROPHILS - REL (CELLAVISION)(BEAKER) (test 60 % scts=0970) LYMPHOCYTES - REL (CELLAVISION)(BEAKER) (test 31 % dgnu=4193) MONOCYTES - REL (CELLAVISION)(BEAKER) (test 3 % trib=3163) EOSINOPHILS - REL (CELLAVISION)(BEAKER) (test 4 % kqcc=6057) METAMYELOCYTES - REL (CELLAVISION)(BEAKER) (test 1 % 0-0 jmpe=6586) BANDS - REL (CELLAVISION)(BEAKER) (test 1 % 0-10 bcht=6953) NEUTROPHILS - ABS (CELLAVISION)(BEAKER) (test 3.36 K/ul 1.56-6.13 mjvz=6043) LYMPHOCYTES - ABS (CELLAVISION)(BEAKER) (test 1.74 K/ul 1.18-3.74 qqjt=9988) MONOCYTES - ABS (CELLAVISION)(BEAKER) (test 0.17 K/uL 0.24-0.36 pyhn=5855) EOSINOPHILS - ABS (CELLAVISION)(BEAKER) (test 0.22 K/uL 0.04-0.36 juae=6527) METAMYELOCYTES - ABS (CELLAVISION)(BEAKER) (test 0.06 K/uL 0.00-0.00 qexw=6409) BANDS - ABS (CELLAVISION)(BEAKER) (test 0.06 K/uL 0.00-0.80 uzcl=6002) TOTAL COUNTED (BEAKER) (test xrum=7804) 100 MANUAL NRBC PER 100 CELLS (BEAKER) (test 1 /100 WBC 0-0 alps=3325) WBC MORPHOLOGY (BEAKER) (test wqfg=471) Normal PLT MORPHOLOGY (BEAKER) (test jmot=735) Normal POLYCHROMATOPHILLIC RBCS(BEAKER) (test cxzj=382) 1+ few ANISOCYTOSIS (BEAKER) (test pcbu=339) 1+ few ARTIFACT (CELLAVISION)(BEAKER) (test djgr=3464) Present PLATELET CONCENTRATION (CELLAVISION)(BEAKER) Adequate (test llcs=9667) Received comment: User comments: Slide comments:BASIC METABOLIC [id number] 07:15:00 Test Item Value Reference Range Comments SODIUM (BEAKER) (test 135 meq/L 136-145 pwgg=141) POTASSIUM (BEAKER) (test 4.6 meq/L 3.5-5.1 Specimen slightly fpib=512) hemolyzed CHLORIDE (BEAKER) (test 97 meq/L 98-107 fstl=084) CO2 (BEAKER) (test 26 meq/L 22-29 gnbc=728) BLOOD UREA NITROGEN 56 mg/dL 7-21 (BEAKER) (test ytwj=631) CREATININE (BEAKER) (test 2.65 mg/dL 0.57-1.25 Specimen slightly zvcr=877) hemolyzed GLUCOSE RANDOM (BEAKER) 191 mg/dL 70-105 (test esbd=330) CALCIUM (BEAKER) (test 9.6 mg/dL 8.4-10.2 sbya=578) EGFR (BEAKER) (test 19 mL/min/1.73 sq m ESTIMATED GFR IS NOT outb=0558) ACCURATE CREATININE CLEARANCE IN PREDICTING GLOMERULAR FILTRATION RATE. ESTIMATED GFR IS NOT APPLICABLE FOR DIALYSIS PATIENTS. [id number] 06:12:00 Test Item Value Reference Range Comments MAGNESIUM (BEAKER) (test 2.0 mg/dL 1.6-2.6 Specimen slightly hemolyzed uzaz=695) [id number] 06:12:00 Test Item Value Reference Range Comments PHOSPHORUS (BEAKER) (test 4.7 mg/dL 2.3-4.7 Specimen slightly hemolyzed xxvm=521) [id number] 06:06:00 Test Item Value Reference Range Comments PROTIME (BEAKER) (test ticz=423) 13.0 seconds 11.9-14.2 INR (BEAKER) (test otil=556) 1.0 <=5.9 PARTIAL THROMBOPLASTIN TIME (BEAKER) (test 32.3 seconds 22.5-36.0 fqus=706) Effective 09/13/2018: PT Reference Range ChangeNew: 11.9-14.2 Previous: 11.7- 14.7RECOMMENDED COUMADIN/WARFARIN INR THERAPY RANGESSTANDARD DOSE: 2.0-3.0 Includes: PROPHYLAXIS for venous thrombosis, systemic embolization; TREATMENT for venous thrombosis and/or pulmonary embolus.HIGH RISK: Target INR is2.5-3.5 for patients wiht mechanical heart valves.POCT-GLUCOSE [id number] 21:39:00 Test Item Value Reference Range Comments POC-GLUCOSE METER (BEAKER) 327 mg/dL 70-110 Will Repeat Test/TESTED AT (test fehg=9750) [facility] [address] [facility] [address] POCT-GLUCOSE [id number] 17:28:00 Test Item Value Reference Range Comments POC-GLUCOSE METER (BEAKER) 244 mg/dL 70-110 TESTED AT [address] (test uvzg=3535) [facility] [address] RHEUMATOID FACTOR AB, REFLEX TO [id number] 11:15:00 Test Item Value Reference Range Comments RHEUMATOID FACTOR (BEAKER) (test fmyx=613) Negative CBC W/PLT COUNT & AUTO [id number] 09:44:00 Test Item Value Reference Range Comments WHITE BLOOD CELL COUNT (BEAKER) (test cznv=873) 4.8 K/ L 3.5-10.5 RED BLOOD CELL COUNT (BEAKER) (test brcc=135) 3.17 M/ L 3.93-5.22 HEMOGLOBIN (BEAKER) (test bpdl=099) 9.0 GM/DL 11.2-15.7 HEMATOCRIT (BEAKER) (test wpvx=881) 29.0 % 34.1-44.9 MEAN CORPUSCULAR VOLUME (BEAKER) (test jgye=706) 91.5 fL 79.4-94.8 MEAN CORPUSCULAR HEMOGLOBIN (BEAKER) (test 28.4 pg 25.6-32.2 bovt=536) MEAN CORPUSCULAR HEMOGLOBIN CONC (BEAKER) (test 31.0 GM/DL 32.2-35.5 sxww=145) RED CELL DISTRIBUTION WIDTH (BEAKER) (test 15.2 % 11.7-14.4 pvzj=869) PLATELET COUNT (BEAKER) (test yhtu=434) 228 K/CU MM 150-450 MEAN PLATELET VOLUME (BEAKER) (test szhv=542) 10.7 fL 9.4-12.3 NUCLEATED RED BLOOD CELLS (BEAKER) (test 1 /100 WBC 0-0 dkws=557) (CELLAVISION MANUAL DIFF)2018-10-19 09:44:00 Test Item Value Reference Range Comments NEUTROPHILS - REL (CELLAVISION)(BEAKER) (test 72 % kicv=4768) LYMPHOCYTES - REL (CELLAVISION)(BEAKER) (test 14 % gmlp=5471) MONOCYTES - REL (CELLAVISION)(BEAKER) (test 4 % arlb=5320) EOSINOPHILS - REL (CELLAVISION)(BEAKER) (test 5 % qmoh=8216) METAMYELOCYTES - REL (CELLAVISION)(BEAKER) (test 4 % 0-0 vthl=8104) MYELOCYTES - REL (CELLAVISION)(BEAKER) (test 1 % 0-0 kerq=2474) NEUTROPHILS - ABS (CELLAVISION)(BEAKER) (test 3.46 K/ul 1.56-6.13 phmz=1629) LYMPHOCYTES - ABS (CELLAVISION)(BEAKER) (test 0.67 K/ul 1.18-3.74 vxvf=0427) MONOCYTES - ABS (CELLAVISION)(BEAKER) (test 0.19 K/uL 0.24-0.36 vguv=8258) EOSINOPHILS - ABS (CELLAVISION)(BEAKER) (test 0.24 K/uL 0.04-0.36 yzgq=4589) METAMYELOCYTES - ABS (CELLAVISION)(BEAKER) (test 0.19 K/uL 0.00-0.00 zeiw=3220) MYELOCYTES-ABS (CELLAVISION)(BEAKER) (test 0.05 K/uL 0.00-0.00 tzwb=2937) TOTAL COUNTED (BEAKER) (test ogmu=1367) 100 MANUAL NRBC PER 100 CELLS (BEAKER) (test 2 /100 WBC 0-0 sgyo=4914) SMUDGE CELLS (BEAKER) (test bgtp=3346) Present GIANT PLATELETS (BEAKER) (test yrpu=893) Present ANISOCYTOSIS (BEAKER) (test rnrk=912) 1+ few PLATELET CONCENTRATION (CELLAVISION)(BEAKER) Adequate (test euem=9785) Received comment: User comments: Slide comments:POCT-GLUCOSE [id number] 09: 05:00 Test Item Value Reference Range Comments POC-GLUCOSE METER (BEAKER) 166 mg/dL 70-110 TESTED AT [facility] [address] [facility] (test anzw=5019) [facility] [address] COMPREHENSIVE METABOLIC [id number] 07:14:00 Test Item Value Reference Range Comments TOTAL PROTEIN (BEAKER) 8.2 gm/dL 6.0-8.3 Specimen slightly (test bhbn=154) hemolyzed ALBUMIN (BEAKER) (test 3.6 g/dL 3.5-5.0 Specimen slightly jsoi=5743) hemolyzed ALKALINE PHOSPHATASE 72 U/L 40-150 (BEAKER) (test hnic=264) BILIRUBIN TOTAL (BEAKER) 0.5 mg/dL 0.2-1.2 Specimen slightly (test rmet=579) hemolyzed SODIUM (BEAKER) (test 135 meq/L 136-145 soyq=613) POTASSIUM (BEAKER) (test 4.2 meq/L 3.5-5.1 Specimen slightly dloc=871) hemolyzed CHLORIDE (BEAKER) (test 97 meq/L 98-107 kmsq=095) CO2 (BEAKER) (test 27 meq/L 22-29 plaa=255) BLOOD UREA NITROGEN 60 mg/dL 7-21 (BEAKER) (test othq=259) CREATININE (BEAKER) (test 2.79 mg/dL 0.57-1.25 Specimen slightly uaer=067) hemolyzed GLUCOSE RANDOM (BEAKER) 171 mg/dL 70-105 (test vcgj=442) CALCIUM (BEAKER) (test 9.5 mg/dL 8.4-10.2 fmjh=962) AST (SGOT) (BEAKER) (test 152 U/L 5-34 Specimen slightly plsi=662) hemolyzed ALT (SGPT) (BEAKER) (test 532 U/L 6-55 Specimen slightly jeea=000) hemolyzed EGFR (BEAKER) (test 18 mL/min/1.73 sq m ESTIMATED GFR IS NOT elsp=9858) ACCURATE CREATININE CLEARANCE IN PREDICTING GLOMERULAR FILTRATION RATE. ESTIMATED GFR IS NOT APPLICABLE FOR DIALYSIS PATIENTS. [id number] 06:36:00 Test Item Value Reference Range Comments MAGNESIUM (BEAKER) (test 2.0 mg/dL 1.6-2.6 Specimen slightly hemolyzed qfzo=855) [id number] 06:36:00 Test Item Value Reference Range Comments PHOSPHORUS (BEAKER) (test 4.4 mg/dL 2.3-4.7 Specimen slightly hemolyzed eubr=103) URIC [id number] 06:36:00 Test Item Value Reference Range Comments URIC ACID (BEAKER) (test 9.8 mg/dL 2.6-7.2 Specimen slightly hemolyzed qpvq=901) HEPATIC FUNCTION [id number] 06:36:00 Test Item Value Reference Range Comments TOTAL PROTEIN (BEAKER) (test 8.2 gm/dL 6.0-8.3 Specimen slightly hemolyzed rznx=230) ALBUMIN (BEAKER) (test 3.6 g/dL 3.5-5.0 Specimen slightly hemolyzed xcco=3496) BILIRUBIN TOTAL (BEAKER) (test 0.5 mg/dL 0.2-1.2 Specimen slightly hemolyzed kcic=298) BILIRUBIN DIRECT (BEAKER) (test 0.2 mg/dL 0.1-0.5 Specimen slightly hemolyzed nwma=036) ALKALINE PHOSPHATASE (BEAKER) 72 U/L 40-150 (test rncx=919) AST (SGOT) (BEAKER) (test 152 U/L 5-34 Specimen slightly hemolyzed ovho=948) ALT (SGPT) (BEAKER) (test 532 U/L 6-55 Specimen slightly hemolyzed naxm=114) B-TYPE NATRIURETIC FACTOR (BNP)2018-10-19 06:33:00 Test Item Value Reference Range Comments B-TYPE NATRIURETIC PEPTIDE (BEAKER) (test 162 pg/mL 0-100 fgsq=340) PROTHROMBIN [id number] 06:06:00 Test Item Value Reference Range Comments PROTIME (BEAKER) (test wnqm=621) 13.4 seconds 11.9-14.2 INR (BEAKER) (test mocv=308) 1.1 <=5.9 Effective 09/13/2018: PT Reference Range ChangeNew: 11.9-14.2 Previous: 11.7- 14.7RECOMMENDED COUMADIN/WARFARIN INR THERAPY RANGESSTANDARD DOSE: 2.0-3.0 Includes: PROPHYLAXIS for venous thrombosis, systemic embolization; TREATMENT for venous thrombosis and/or pulmonary embolus.HIGH RISK: Target INR is2.5-3.5 for patients wiht mechanical heart valves.CALCIUM, [id number] 05:56:00 Test Item Value Reference Range Comments CALCIUM IONIZED (BEAKER) (test dqzm=911) 1.10 mmol/L 1.12-1.27 PH, BLOOD (BEAKER) (test ghmv=6769) 7.38 CALCIUM, [id number] 05:56:00 Test Item Value Reference Range Comments CALCIUM IONIZED (BEAKER) (test mvdv=246) 1.07 mmol/L 1.12-1.27 PH, BLOOD (BEAKER) (test sutn=7531) 7.41 POCT-GLUCOSE [id number] 21:33:00 Test Item Value Reference Range Comments POC-GLUCOSE METER (BEAKER) 297 mg/dL 70-110 TESTED AT [facility] [address] [place] [address] (test qhpt=6703) [facility] [address] CMV PCR, [id number] 18:31:00 Test Item Value Reference Range Comments CMV VIRAL LOAD - NEGATIVE Negative or below the linear (BEAKER) (test tsqu=9976) range of the assay (<375 copies/mL) Cytomegalovirus [...] and its performance characteristics determined by the [facility] Pathology Department, Section of Molecular Pathology. It has not been cleared or approved by the U.S. Food and Drug Administration (FDA), since FDA approval is not required for clinical use of the test. Validation was done as required by The Clinical Laboratory Improvement Amendments of 1988.EBV VIRAL [id number] 18:23:00 Test Item Value Reference Range Comments EBV VIRAL LOAD - NEGATIVE Negative or below the linear (BEAKER) (test vosf=9268) range of the assay (<500 copies/mL) This [...] developedand its performance characteristics determined by the [facility] Pathology Department, Section of Molecular Pathology. It has not been cleared or approved by the U.S. Food and Drug Administration (FDA), since FDA approval is not required for clinical use of the test. Validation was doneas required by The Clinical Laboratory Improvement Amendments of 1988.POCT-GLUCOSE [id number] 18:02:00 Test Item Value Reference Range Comments POC-GLUCOSE METER (BEAKER) 198 mg/dL 70-110 TESTED AT [facility] [address] [facility] (test wwfo=6690) [facility] [address] RESPIRATORY PANEL [id number] 17:32:00 Test Item Value Reference Range Comments HUMAN METAPNEUMOVIRUS (BEAKER) (test Not detected Not detected, Equivocal audz=6976) RHINOVIRUS (BEAKER) (test odkx=9678) Not detected Not detected, Equivocal INFLUENZA A (BEAKER) (test znao=3118) Not detected Not detected, Equivocal INFLUENZA A (NO SUBTYPE) (test Not detected, Equivocal affq=7337) INFLUENZA A SUBTYPE H1 (BEAKER) (test Not detected, Equivocal kitk=5948) INFLUENZA A SUBTYPE H3 (BEAKER) (test Not detected, Equivocal edcc=1153) INFLUENZA A SUBTYPE H1-2009 (BEAKER) Not detected, Equivocal (test etiq=8053) INFLUENZA B (BEAKER) (test zzcm=6787) Not detected Not detected, Equivocal RESPIRATORY SYNCYTIAL VIRUS (BEAKER) Not detected Not detected, Equivocal (test nzqm=0317) PARAINFLUENZA VIRUS 1 (BEAKER) (test Not detected Not detected, Equivocal onil=2282) PARAINFLUENZA VIRUS 2 (BEAKER) (test Not detected Not detected, Equivocal uemy=7003) PARAINFLUENZA VIRUS 3 (BEAKER) (test Not detected Not detected, Equivocal uilc=6405) PARAINFLUENZA VIRUS 4 (BEAKER) (test Not detected Not detected, Equivocal dfbk=2712) ADENOVIRUS (BEAKER) (test kdwp=0689) Not detected Not detected, Equivocal CORONAVIRUS 229E (BEAKER) (test Not detected Not detected, Equivocal naye=7866) CORONAVIRUS HKU1 (BEAKER) (test Not detected Not detected, Equivocal reyj=9688) CORONAVIRUS NL63 (BEAKER) (test Not detected Not detected, Equivocal axig=7625) CORONAVIRUS OC43 (BEAKER) (test Not detected Not detected, Equivocal miuo=8566) BORDETELLA PERTUSSIS (BEAKER) (test Not detected Not detected, Equivocal yuaz=1180) CHLAMYDOPHILA PNEUMONIAE (BEAKER) (test Not detected Not detected, Equivocal lexc=1705) MYCOPLASMA PNEUMONIAE (BEAKER) (test Not detected Not detected, Equivocal nyjo=6267) Other viruses and bacteria not targeted by this PCR panel cannot be excluded; therefore clinical correlation and follow up of serology, culture results, and other molecular studies is required. The results are not intended to be used as the sole means for clinical diagnosis or patient management decisions. This sample was tested at the [facility] using the [employer] Respiratory Panel. It is FDA cleared and has been verified and approved by the [facility] for clinical use on nasopharyngeal swab specimens.The performance of the [employer] has not been established in individuals who received influenza vaccine. Recent administration ofa nasal influenza vaccine may cause false positive results for Influenza A and/orInfluenza B.EOSINOPHIL SMEAR, [id number] 16:42:00 Test Item Value Reference Range Comments EOSINOPHIL SMEAR, URINE (BEAKER) Rare EOS=less than 5% WBCs No EOS seen (test mtgz=1539) seen are EOS CT, CHEST, WITHOUT [id number] 16:31:00FINAL REPORT CT Chest, abdomen, and pelvis [...] MDReport Verified Date/Time: 10/18/2018 16:31:25 Reading Location: [facility] Radiology Reading Room CT, [id number] 16:31:00Reason for exam:->hepatosplenomegalyFINAL REPORT CT Chest, abdomen, [...] MDReport Verified Date/Time: 10/18/2018 16:31:25 Reading Location: [facility] Radiology Reading Room Electronically signed by: MANI MOREL MD on 06/2018 04:31 PMCBC W/PLT COUNT & AUTO [id number] 15:06:00 Test Item Value Reference Range Comments WHITE BLOOD CELL COUNT 4.4 K/ L 3.5-10.5 This is a corrected result. (BEAKER) (test yfpq=199) Previous result was 4.2 K/ L on 10/18/2018 at 0657 CDT RED BLOOD CELL COUNT (BEAKER) 2.92 M/ L 3.93-5.22 This is a corrected result. (test qejd=189) Previous result was 2.88 M/ L on 10/18/2018 at 0657 CDT HEMOGLOBIN (BEAKER) (test 8.3 GM/DL 11.2-15.7 awul=055) HEMATOCRIT (BEAKER) (test 27.1 % 34.1-44.9 This is a corrected result. yyam=571) Previous result was 26.4 % on 10/18/2018 at 0657 CDT MEAN CORPUSCULAR VOLUME 92.8 fL 79.4-94.8 This is a corrected result. (BEAKER) (test lbmo=850) Previous result was 91.7 fL on 10/18/2018 at 0657 CDT MEAN CORPUSCULAR HEMOGLOBIN 28.4 pg 25.6-32.2 This is a corrected result. (BEAKER) (test wlee=156) Previous result was 28.8 pg on 10/18/2018 at 0657 CDT MEAN CORPUSCULAR HEMOGLOBIN 30.6 GM/DL 32.2-35.5 This is a corrected result. CONC (BEAKER) (test mypr=995) Previous result was 31.4 GM/DL on 10/18/2018 at 0657 CDT RED CELL DISTRIBUTION WIDTH 15.3 % 11.7-14.4 This is a corrected result. (BEAKER) (test cgnk=021) Previous result was 15.1 % on 10/18/2018 at 0657 CDT PLATELET COUNT (BEAKER) (test 185 K/CU MM 150-450 This is a corrected result. gloo=843) Previous result was 177 K/CU MM on 10/18/2018 at 0657 CDT MEAN PLATELET VOLUME (BEAKER) 11.3 fL 9.4-12.3 This is a corrected result. (test tzpl=693) Previous result was 11.1 fL on 10/18/2018 at 0657 CDT NUCLEATED RED BLOOD CELLS 2 /100 WBC 0-0 This is a corrected result. (BEAKER) (test wlyz=322) Previous result was 1 /100 WBC on 10/18/2018 at 0657 CDT (CELLAVISION MANUAL DIFF)2018-10-18 15:04:00 Test Item Value Reference Range Comments NEUTROPHILS - REL (CELLAVISION)(BEAKER) (test 74 % qiai=5207) LYMPHOCYTES - REL (CELLAVISION)(BEAKER) (test 14 % qonu=1484) MONOCYTES - REL (CELLAVISION)(BEAKER) (test 3 % jjgm=6076) EOSINOPHILS - REL (CELLAVISION)(BEAKER) (test 6 % fpyj=1898) MYELOCYTES - REL (CELLAVISION)(BEAKER) (test 3 % 0-0 gdet=5775) NEUTROPHILS - ABS (CELLAVISION)(BEAKER) (test 3.26 K/ul 1.56-6.13 qmkn=3273) LYMPHOCYTES - ABS (CELLAVISION)(BEAKER) (test 0.62 K/ul 1.18-3.74 fqpx=6309) MONOCYTES - ABS (CELLAVISION)(BEAKER) (test 0.13 K/uL 0.24-0.36 fzqj=3201) EOSINOPHILS - ABS (CELLAVISION)(BEAKER) (test 0.26 K/uL 0.04-0.36 vfuz=3776) MYELOCYTES-ABS (CELLAVISION)(BEAKER) (test 0.13 K/uL 0.00-0.00 crnq=3165) TOTAL COUNTED (BEAKER) (test jnmh=2912) 100 MANUAL NRBC PER 100 CELLS (BEAKER) (test 1 /100 WBC 0-0 htbq=5335) WBC MORPHOLOGY (BEAKER) (test vofl=364) Normal CLUMPED PLATELETS (BEAKER) (test maex=088) Present GIANT PLATELETS (BEAKER) (test agby=524) Present POLYCHROMATOPHILLIC RBCS(BEAKER) (test bfpv=747) 1+ few ANISOCYTOSIS (BEAKER) (test arzx=115) 1+ few MICROCYTES (BEAKER) (test sxoe=608) 1+ few ARTIFACT (CELLAVISION)(BEAKER) (test bwfx=5775) Present PLATELET CONCENTRATION (CELLAVISION)(BEAKER) Adequate (test bobh=6255) Received comment: User comments: Slide comments:RAPID INFLUENZA A&B [id number] 13:32:00 Test Item Value Reference Range Comments RAPID INFLUENZA A AG (BEAKER) (test Negative Negative, Inconclusive amfs=9038) RAPID INFLUENZA B AG (BEAKER) (test Negative Negative, Inconclusive umgc=1956) [id number] 13:19:00 Test Item Value Reference Range Comments FERRITIN (BEAKER) (test smpk=628) 6230 ng/mL 5-275 HIV-1 ANTIGEN WITH HIV-1/2 [id number] 12:57:00 Test Item Value Reference Range Comments HIV-1 ANTIGEN WITH HIV 1\\T\\2 ANTIBODY (2) Nonreactive Nonreactive (BEAKER) (test ihbc=2843) [id number] 12:53:00 Test Item Value Reference Range Comments HAPTOGLOBIN (BEAKER) (test jisq=857) 301 mg/dL 14-258 [id number] 12:34:00 Test Item Value Reference Range Comments D-DIMER QUANTITATIVE (BEAKER) (test fvbj=331) 13.12 MG/L FEU <0.50 Intended Use: The [...] is within 95-100% range.ALPHA FETOPROTEIN (AFP), TUMOR [id number] 12:29:00 Test Item Value Reference Range Comments ALPHA-FETOPROTEIN (BEAKER) (test ozjr=2257) < ng/mL <10.0 [id number] 11:08:00 Test Item Value Reference Range Comments TRIGLYCERIDES (BEAKER) (test mhgz=020) 299 mg/dL TRIGLYCERIDE REFERENCE RANGELow Risk <150Borderline Risk 150-199High Risk 200-499Very High Risk>=500POCT-GLUCOSE [id number] 11:05:00 Test Item Value Reference Range Comments POC-GLUCOSE METER (BEAKER) 248 mg/dL 70-110 TESTED AT [address] (test nidk=3617) [place] [id number] RETICULOCYTE [id number] 11:05:00 Test Item Value Reference Range Comments RETICULOCYTE COUNT PCT (BEAKER) (test gbzk=555) 4.3 % 0.5-1.7 IRON, TIBC, % SAT. (WITHOUT FERRITIN)2018-10-18 10:12:00 Test Item Value Reference Range Comments IRON (BEAKER) (test noet=016) 42.0 ug/dL 40.0-160.0 TOTAL IRON BINDING CAPACITY (BEAKER) (test 264 ug/dL 250-450 mnhy=475) IRON % SATURATION (2) (BEAKER) (test vbpq=2045) 16 % 20-55 POCT-GLUCOSE [id number] 08:55:00 Test Item Value Reference Range Comments POC-GLUCOSE METER (BEAKER) 198 mg/dL 70-110 TESTED AT [address] (test jxhu=8077) [place] [id number] 06:57:00 Test Item Value Reference Range Comments PHOSPHORUS (BEAKER) (test ceua=312) 4.5 mg/dL 2.3-4.7 [id number] 06:57:00 Test Item Value Reference Range Comments MAGNESIUM (BEAKER) (test utey=088) 1.7 mg/dL 1.6-2.6 HEPATIC FUNCTION [id number] 06:57:00 Test Item Value Reference Range Comments TOTAL PROTEIN (BEAKER) (test pajs=094) 7.6 gm/dL 6.0-8.3 ALBUMIN (BEAKER) (test xjsd=8312) 3.4 g/dL 3.5-5.0 BILIRUBIN TOTAL (BEAKER) (test qklf=322) 0.5 mg/dL 0.2-1.2 BILIRUBIN DIRECT (BEAKER) (test jrsr=698) 0.3 mg/dL 0.1-0.5 ALKALINE PHOSPHATASE (BEAKER) (test kmpq=462) 75 U/L 40-150 AST (SGOT) (BEAKER) (test pbqq=409) 273 U/L 5-34 ALT (SGPT) (BEAKER) (test ktbv=030) 693 U/L 6-55 BASIC METABOLIC [id number] 06:57:00 Test Item Value Reference Range Comments SODIUM (BEAKER) (test 135 meq/L 136-145 icff=238) POTASSIUM (BEAKER) (test 3.9 meq/L 3.5-5.1 lffu=858) CHLORIDE (BEAKER) (test 98 meq/L 98-107 yeoa=995) CO2 (BEAKER) (test 28 meq/L 22-29 nsrq=345) BLOOD UREA NITROGEN 64 mg/dL 7-21 (BEAKER) (test djwn=207) CREATININE (BEAKER) (test 3.19 mg/dL 0.57-1.25 objp=648) GLUCOSE RANDOM (BEAKER) 162 mg/dL 70-105 (test qipn=981) CALCIUM (BEAKER) (test 9.1 mg/dL 8.4-10.2 vywo=228) EGFR (BEAKER) (test 16 mL/min/1.73 sq m ESTIMATED GFR IS NOT xdut=7629) ACCURATE CREATININE CLEARANCE IN PREDICTING GLOMERULAR FILTRATION RATE. ESTIMATED GFR IS NOT APPLICABLE FOR DIALYSIS PATIENTS. PROTHROMBIN [id number] 06:37:00 Test Item Value Reference Range Comments PROTIME (BEAKER) (test ftvz=628) 14.3 seconds 11.9-14.2 INR (BEAKER) (test bmaq=848) 1.2 <=5.9 Effective 09/13/2018: PT Reference Range ChangeNew: 11.9-14.2 Previous: 11.7- 14.7RECOMMENDED COUMADIN/WARFARIN INR THERAPY RANGESSTANDARD DOSE: 2.0-3.0 Includes: PROPHYLAXIS for venous thrombosis, systemic embolization; TREATMENT for venous thrombosis and/or pulmonary embolus.HIGH RISK: Target INR is2.5-3.5 for patients wiht mechanical heart valves.CALCIUM, [id number] 06:19:00 Test Item Value Reference Range Comments CALCIUM IONIZED (BEAKER) (test yoed=095) 1.09 mmol/L 1.12-1.27 PH, BLOOD (BEAKER) (test tcez=8390) 7.36 POCT-GLUCOSE [id number] 21:54:00 Test Item Value Reference Range Comments POC-GLUCOSE METER (BEAKER) 281 mg/dL 70-110 TESTED AT [address] (test hpkn=0957) [facility] [address] RAD, CHEST, 1 VIEW, NON [id number] 19:11:00Reason for exam:->SOBShould this be performed at [...] Verified Date/ Time: 10/17/2018 19:11:02 Reading Location: [facility] C013W Consult Reading Room [id number] 17:36:00 Test Item Value Reference Range Comments FERRITIN (BEAKER) (test jzof=670) 38579 ng/mL 5-275 LACTATE DEHYDROGENASE (LDH)2018-10-17 16:41:00 Test Item Value Reference Range Comments LACTATE DEHYDROGENASE (OPAL) (test ggng=966) 541 U/L 125-220 [id number] 16:37:00 Test Item Value Reference Range Comments FIBRINOGEN LEVEL (OPAL) (test pjtv=811) 439 mg/dl 225-434 POCT-GLUCOSE [id number] 12:47:00 Test Item Value Reference Range Comments POC-GLUCOSE METER (OPAL) 250 mg/dL 70-110 TESTED AT [facility] [address] [facility] (test lkhx=6442) [facility] [address] PUL PERF IMAGING, PARTIC, [id number] 10:48:00FINAL REPORT PROCEDURE: V/Q LUNG SCAN CPT CODE: 78565 INDICATION: Acute chest pain pulmonary origin PROTOCOL: [...] suggestive of a fatty liver. Signed: Alvino Mirandassm [facility] Verified Date/Time: 10/17/2018 10:48:21 Reading Location: [address] Reading Room Electronically signed by: ALVINO MIRANDA MD on 05/2018 10:48 AMU/S, PELVIC, [id number] 10:02:00Reason for exam:-> AKIFINAL REPORT Abdominal and [...] Ayoub MDReport Verified Date/Time:10/17/2018 10:02:56 Reading Location: [address] Radiology Reading Room U/S, ABDOMINAL, WITH [id number] 10:02: 00Reason for exam:->elevated transaminasesFINAL REPORT Abdominal [...] Normal Doppler of the abdomen. Signed: [facility] Verified Date/Time:2018 10:02:56 Reading Location: [address] Radiology Reading Room VITAMIN B12 AND [id number] 08:37:00 Test Item Value Reference Range Comments VITAMIN B12 (BEAKER) (test eywy=003) > pg/mL 213-816 FOLATE (BEAKER) (test xhkj=587) 13.3 ng/mL >=7.0 POCT-GLUCOSE [id number] 08:32:00 Test Item Value Reference Range Comments POC-GLUCOSE METER (BEAKER) 168 mg/dL 70-110 TESTED AT [facility] [address] [facility] (test hvyh=1912) [facility] [address] [id number] 08:03:00 Test Item Value Reference Range Comments FERRITIN (BEAKER) (test cejh=578) 01897 ng/mL 5-275 URIC [id number] 06:15:00 Test Item Value Reference Range Comments URIC ACID (BEAKER) (test lnxl=991) 13.2 mg/dL 2.6-7.2 [id number] 06:15:00 Test Item Value Reference Range Comments MAGNESIUM (BEAKER) (test tves=046) 1.8 mg/dL 1.6-2.6 LIPID [id number] 06:15:00 Test Item Value Reference Range Comments TRIGLYCERIDES (BEAKER) (test lpjs=967) 223 mg/dL CHOLESTEROL (BEAKER) (test yxfz=846) 119 mg/dL HDL CHOLESTEROL (BEAKER) (test zxod=791) 30 mg/dL LDL CHOLESTEROL CALCULATED (BEAKER) (test 44 mg/dL hdop=051) Triglyceride Reference Range: Low Risk <150 Borderline 150- 199 High Risk 200-499 Very High Risk >=500Cholesterol Reference Range: Low Risk <200 Borderline 200-239 High Risk > 240HDL Cholesterol Reference Range: Low Risk >=60 High Risk <40LDL Cholesterol Reference Range: Optimal <100 Near Optimal 100-129 Borderline 130-159 High 160-189 Very High >=190HEPATIC FUNCTION [id number] 06:15:00 Test Item Value Reference Range Comments TOTAL PROTEIN (BEAKER) (test adop=774) 7.9 gm/dL 6.0-8.3 ALBUMIN (BEAKER) (test tvzy=4501) 3.7 g/dL 3.5-5.0 BILIRUBIN TOTAL (BEAKER) (test okbu=611) 0.5 mg/dL 0.2-1.2 BILIRUBIN DIRECT (BEAKER) (test fshi=448) 0.3 mg/dL 0.1-0.5 ALKALINE PHOSPHATASE (BEAKER) (test lilz=590) 83 U/L 40-150 AST (SGOT) (BEAKER) (test zetg=129) 747 U/L 5-34 ALT (SGPT) (BEAKER) (test owsu=980) 1009 U/L 6-55 COMPLEMENT COMPONENT [id number] 06:15:00 Test Item Value Reference Range Comments C4 COMPLEMENT (BEAKER) (test ppbd=493) 28 mg/dL 15-57 COMPLEMENT COMPONENT [id number] 06:15:00 Test Item Value Reference Range Comments C3 COMPLEMENT (BEAKER) (test mpsg=533) 106 mg/dL 82-193 IRON, TIBC, % SAT. (WITHOUT FERRITIN)2018-10-17 06:15:00 Test Item Value Reference Range Comments IRON (BEAKER) (test tahj=552) 39.0 ug/dL 40.0-160.0 TOTAL IRON BINDING CAPACITY (BEAKER) (test 265 ug/dL 250-450 hjtz=102) IRON % SATURATION (2) (BEAKER) (test iymd=1532) 15 % 20-55 BASIC METABOLIC [id number] 06:15:00 Test Item Value Reference Range Comments SODIUM (BEAKER) (test 134 meq/L 136-145 jfew=649) POTASSIUM (BEAKER) (test 4.2 meq/L 3.5-5.1 hjmm=676) CHLORIDE (BEAKER) (test 100 meq/L 98-107 cfky=892) CO2 (BEAKER) (test 26 meq/L 22-29 sxym=653) BLOOD UREA NITROGEN 64 mg/dL 7-21 (BEAKER) (test hzhw=347) CREATININE (BEAKER) (test 3.66 mg/dL 0.57-1.25 uvqj=853) GLUCOSE RANDOM (BEAKER) 123 mg/dL 70-105 (test ygov=128) CALCIUM (BEAKER) (test 8.9 mg/dL 8.4-10.2 mclw=011) EGFR (BEAKER) (test 13 mL/min/1.73 sq m ESTIMATED GFR IS NOT nkzq=2420) ACCURATE CREATININE CLEARANCE IN PREDICTING GLOMERULAR FILTRATION RATE. ESTIMATED GFR IS NOT APPLICABLE FOR DIALYSIS PATIENTS. PROTHROMBIN [id number] 05:57:00 Test Item Value Reference Range Comments PROTIME (BEAKER) (test xaix=417) 16.0 seconds 11.9-14.2 INR (BEAKER) (test uira=773) 1.4 <=5.9 Effective 09/13/2018: PT Reference Range ChangeNew: 11.9-14.2 Previous: 11.7- 14.7RECOMMENDED COUMADIN/WARFARIN INR THERAPY RANGESSTANDARD DOSE: 2.0-3.0 Includes: PROPHYLAXIS for venous thrombosis, systemic embolization; TREATMENT for venous thrombosis and/or pulmonary embolus.HIGH RISK: Target INR is2.5-3.5 for patients wiht mechanical heart valves.CBC W/PLT COUNT & AUTO [id number] 05:55:00 Test Item Value Reference Range Comments WHITE BLOOD CELL COUNT (BEAKER) (test iljh=714) 4.4 K/ L 3.5-10.5 RED BLOOD CELL COUNT (BEAKER) (test buct=027) 2.40 M/ L 3.93-5.22 HEMOGLOBIN (BEAKER) (test skcb=747) 6.8 GM/DL 11.2-15.7 HEMATOCRIT (BEAKER) (test nevm=556) 22.6 % 34.1-44.9 MEAN CORPUSCULAR VOLUME (BEAKER) (test qlzp=472) 94.2 fL 79.4-94.8 MEAN CORPUSCULAR HEMOGLOBIN (BEAKER) (test 28.3 pg 25.6-32.2 bzqv=147) MEAN CORPUSCULAR HEMOGLOBIN CONC (BEAKER) (test 30.1 GM/DL 32.2-35.5 iktf=319) RED CELL DISTRIBUTION WIDTH (BEAKER) (test 15.4 % 11.7-14.4 lgfe=356) PLATELET COUNT (BEAKER) (test uaqm=638) 172 K/CU MM 150-450 MEAN PLATELET VOLUME (BEAKER) (test dulj=470) 11.6 fL 9.4-12.3 NUCLEATED RED BLOOD CELLS (BEAKER) (test 1 /100 WBC 0-0 rifp=966) NEUTROPHILS RELATIVE PERCENT (BEAKER) (test 73 % qhql=900) LYMPHOCYTES RELATIVE PERCENT (BEAKER) (test 13 % umpz=989) MONOCYTES RELATIVE PERCENT (BEAKER) (test 5 % yxvf=031) EOSINOPHILS RELATIVE PERCENT (BEAKER) (test 3 % jvnv=625) BASOPHILS RELATIVE PERCENT (BEAKER) (test 1 % zyem=878) NEUTROPHILS ABSOLUTE COUNT (BEAKER) (test 3.18 K/ L 1.56-6.13 sgdo=725) LYMPHOCYTES ABSOLUTE COUNT (BEAKER) (test 0.56 K/ L 1.18-3.74 dfuf=935) MONOCYTES ABSOLUTE COUNT (BEAKER) (test 0.23 K/ L 0.24-0.36 rhgw=793) EOSINOPHILS ABSOLUTE COUNT (BEAKER) (test 0.14 K/ L 0.04-0.36 rhab=279) BASOPHILS ABSOLUTE COUNT (BEAKER) (test 0.03 K/ L 0.01-0.08 lojp=148) IMMATURE GRANULOCYTES-RELATIVE PERCENT (BEAKER) 5 % 0-1 (test kdbl=4247) TROPONIN [id number] 01:09:00 Test Item Value Reference Range Comments TROPONIN I (BEAKER) (test bekr=486) 0.03 ng/mL 0.00-0.03 Troponin I (TnI) levels [...] acidosis, acute neurological disease, and persistent tachyarrhythmia.OSMOLALITY, [id number] 22:24:00 Test Item Value Reference Range Comments OSMOLALITY URINE (BEAKER) (test eqzc=905) 317 mOsm/kg 40-1,400 HEMOGLOBIN [id number] 22:20:00 Test Item Value Reference Range Comments HEMOGLOBIN A1C (BEAKER) (test nfmm=462) 7.2 % 4.3-6.1 URINALYSIS W/ [id number] 22:19:00 Test Item Value Reference Range Comments COLOR (BEAKER) (test nrzx=640) Light Yellow CLARITY (BEAKER) (test zsim=357) Clear SPECIFIC GRAVITY UA (BEAKER) (test eoeb=751) 1.006 1.001-1.035 PH UA (BEAKER) (test wwcj=953) 5.5 5.0-8.0 PROTEIN UA (BEAKER) (test ukdq=341) 30 mg/dL Negative GLUCOSE UA (BEAKER) (test xzoa=622) Negative Negative KETONES UA (BEAKER) (test msis=864) Negative Negative BILIRUBIN UA (BEAKER) (test vvcm=129) Negative Negative BLOOD UA (BEAKER) (test pfiu=694) Negative Negative NITRITE UA (BEAKER) (test ppib=566) Negative Negative LEUKOCYTE ESTERASE UA (BEAKER) (test qhcn=770) Negative Negative UROBILINOGEN UA (BEAKER) (test cexi=192) 0.2 mg/dL 0.2-1.0 RBC UA (BEAKER) (test ynwl=221) < /HPF WBC UA (BEAKER) (test qhxh=621) 3 /HPF MUCUS (BEAKER) (test apoy=9285) Rare SQUAMOUS EPITHELIAL (BEAKER) (test bjpj=285) < /HPF SOURCE(BEAKER) (test gios=2614) POCT-GLUCOSE [id number] 22:09:00 Test Item Value Reference Range Comments POC-GLUCOSE METER (BEAKER) 171 mg/dL 70-110 TESTED AT [facility] [address] [facility] (test kukh=0163) [facility] [address] PROTEIN, RANDOM [id number] 21:36:00 Test Item Value Reference Range Comments PROTEIN, URINE (BEAKER) (test xeyg=8255) 44 mg/dL 0-14 CHLORIDE, RANDOM [id number] 21:30:00 Test Item Value Reference Range Comments CHLORIDE URINE (BEAKER) (test jfvr=360) 96 meq/L Reference Range: No NormalsCREATININE, RANDOM [id number] 21:09:00 Test Item Value Reference Range Comments CREATININE URINE (BEAKER) (test ntsg=608) 30.6 mg/dL Reference Range: No NormalsSODIUM, RANDOM [id number] 21:09:00 Test Item Value Reference Range Comments SODIUM URINE (BEAKER) (test odpx=545) 90 meq/L Reference Range: No NormalsUREA NITROGEN, RANDOM [id number] 21:09:00 Test Item Value Reference Range Comments UREA NITROGEN URINE (BEAKER) (test ymzy=061) 232 mg/dL Reference Range: No NormalsHEPATITIS PANEL, [id number] 20:39:00 Test Item Value Reference Range Comments HEPATITIS A IGM ANTIBODY (BEAKER) (test Nonreactive Nonreactive wedv=264) HEPATITIS B CORE IGM ANTIBODY (BEAKER) (test Nonreactive Nonreactive fwyb=329) HEPATITIS C ANTIBODY (BEAKER) (test rhqm=988) Nonreactive Nonreactive HEPATITIS B SURFACE ANTIGEN (2) (BEAKER) (test Nonreactive Nonreactive nbzb=9478) URINALYSIS W/ REFLEX URINE [id number] 20:12:00 Test Item Value Reference Range Comments COLOR (BEAKER) (test mjyq=413) Light Yellow CLARITY (BEAKER) (test ngxy=092) Hazy SPECIFIC GRAVITY UA (BEAKER) (test czyh=903) 1.006 1.001-1.035 PH UA (BEAKER) (test aqej=141) 5.5 5.0-8.0 PROTEIN UA (BEAKER) (test djtl=447) 30 mg/dL Negative GLUCOSE UA (BEAKER) (test zual=689) Negative Negative KETONES UA (BEAKER) (test vodt=359) Negative Negative BILIRUBIN UA (BEAKER) (test ijue=693) Negative Negative BLOOD UA (BEAKER) (test aubt=552) Negative Negative NITRITE UA (BEAKER) (test buyh=083) Negative Negative LEUKOCYTE ESTERASE UA (BEAKER) (test mpme=460) Trace Negative UROBILINOGEN UA (BEAKER) (test wqxu=988) 0.2 mg/dL 0.2-1.0 RBC UA (BEAKER) (test zmwe=145) < /HPF WBC UA (BEAKER) (test fphi=329) 10 /HPF BACTERIA (BEAKER) (test auqg=419) Rare MUCUS (BEAKER) (test zvac=8571) Rare SQUAMOUS EPITHELIAL (BEAKER) (test joye=272) 5 /HPF AMORPHOUS CRYSTALS (BEAKER) (test xqhb=5458) Rare SOURCE(BEAKER) (test yktq=9555) TROPONIN [id number] 19:15:00 Test Item Value Reference Range Comments TROPONIN I (BEAKER) (test rcor=942) 0.03 ng/mL 0.00-0.03 Troponin I (TnI) levels [...] acute neurological disease, and persistent tachyarrhythmia.COMPREHENSIVE METABOLIC [id number] 19:15:00 Test Item Value Reference Range Comments TOTAL PROTEIN (BEAKER) 7.9 gm/dL 6.0-8.3 (test rlbu=128) ALBUMIN (BEAKER) (test 3.7 g/dL 3.5-5.0 nnwi=9809) ALKALINE PHOSPHATASE 89 U/L 40-150 (BEAKER) (test cdfc=033) BILIRUBIN TOTAL (BEAKER) 0.6 mg/dL 0.2-1.2 (test hqqx=174) SODIUM (BEAKER) (test 133 meq/L 136-145 dvhs=323) POTASSIUM (BEAKER) (test 4.6 meq/L 3.5-5.1 lpai=578) CHLORIDE (BEAKER) (test 102 meq/L 98-107 txnu=166) CO2 (BEAKER) (test 21 meq/L 22-29 oglq=368) BLOOD UREA NITROGEN 63 mg/dL 7-21 (BEAKER) (test elwn=894) CREATININE (BEAKER) (test 3.74 mg/dL 0.57-1.25 wewr=270) GLUCOSE RANDOM (BEAKER) 117 mg/dL 70-105 (test nyej=557) CALCIUM (BEAKER) (test 8.6 mg/dL 8.4-10.2 rffv=521) AST (SGOT) (BEAKER) (test 1805 U/L 5-34 bifx=286) ALT (SGPT) (BEAKER) (test 1232 U/L 6-55 igyo=543) EGFR (BEAKER) (test 13 mL/min/1.73 sq m ESTIMATED GFR IS NOT mvzb=6931) ACCURATE CREATININE CLEARANCE IN PREDICTING GLOMERULAR FILTRATION RATE. ESTIMATED GFR IS NOT APPLICABLE FOR DIALYSIS PATIENTS. CREATINE KINASE (CK)2018-10-16 19:13:00 Test Item Value Reference Range Comments CREATINE KINASE TOTAL (BEAKER) (test qwyd=295) 439 U/L 29-200 SALICYLATE [id number] 19:11:00 Test Item Value Reference Range Comments SALICYLATE LEVEL (BEAKER) (test bjnq=275) < mg/dL 15.0-30.0 Therapeutic Range: 15.0-30.0 mg/dLToxic: >30.0 mg/dL Lethal: >70.0 mg/dLACETAMINOPHEN [id number] 19:10:00 Test Item Value Reference Range Comments ACETAMINOPHEN LEVEL (BEAKER) (test yzqc=822) < ug/mL 10.0-30.0 Therapeutic Range: 10.0-30.0 g/mLToxic Levels: >200.0 g/mLPROTHROMBIN [id number] 18:59:00 Test Item Value Reference Range Comments PROTIME (BEAKER) (test gxiu=943) 16.7 seconds 11.9-14.2 INR (BEAKER) (test wwbg=753) 1.4 <=5.9 Effective 09/13/2018: PT Reference Range ChangeNew: 11.9-14.2 Previous: 11.7- 14.7RECOMMENDED COUMADIN/WARFARIN INR THERAPY RANGESSTANDARD DOSE: 2.0-3.0 Includes: PROPHYLAXIS for venous thrombosis, systemic embolization; TREATMENT for venous thrombosis and/or pulmonary embolus.HIGH RISK: Target INR is2.5-3.5 for patients wiht mechanical heart valves.CBC W/PLT COUNT & AUTO [id number] 18:52:00 Test Item Value Reference Range Comments WHITE BLOOD CELL COUNT (BEAKER) (test viwn=219) 4.9 K/ L 3.5-10.5 RED BLOOD CELL COUNT (BEAKER) (test hcff=154) 2.42 M/ L 3.93-5.22 HEMOGLOBIN (BEAKER) (test splm=048) 7.2 GM/DL 11.2-15.7 HEMATOCRIT (BEAKER) (test aslo=538) 22.7 % 34.1-44.9 MEAN CORPUSCULAR VOLUME (BEAKER) (test vyzk=807) 93.8 fL 79.4-94.8 MEAN CORPUSCULAR HEMOGLOBIN (BEAKER) (test 29.8 pg 25.6-32.2 lwuk=731) MEAN CORPUSCULAR HEMOGLOBIN CONC (BEAKER) (test 31.7 GM/DL 32.2-35.5 szgy=281) RED CELL DISTRIBUTION WIDTH (BEAKER) (test 15.3 % 11.7-14.4 pklv=431) PLATELET COUNT (BEAKER) (test qsrh=614) 166 K/CU MM 150-450 MEAN PLATELET VOLUME (BEAKER) (test upff=615) 11.6 fL 9.4-12.3 NUCLEATED RED BLOOD CELLS (BEAKER) (test 2 /100 WBC 0-0 humi=457) NEUTROPHILS RELATIVE PERCENT (BEAKER) (test 83 % jseu=785) LYMPHOCYTES RELATIVE PERCENT (BEAKER) (test 6 % cdxe=089) MONOCYTES RELATIVE PERCENT (BEAKER) (test 5 % aasf=101) EOSINOPHILS RELATIVE PERCENT (BEAKER) (test 2 % zgxg=112) BASOPHILS RELATIVE PERCENT (BEAKER) (test 0 % dnis=265) NEUTROPHILS ABSOLUTE COUNT (BEAKER) (test 4.02 K/ L 1.56-6.13 ixlb=441) LYMPHOCYTES ABSOLUTE COUNT (BEAKER) (test 0.28 K/ L 1.18-3.74 mcop=168) MONOCYTES ABSOLUTE COUNT (BEAKER) (test 0.23 K/ L 0.24-0.36 phla=497) EOSINOPHILS ABSOLUTE COUNT (BEAKER) (test 0.11 K/ L 0.04-0.36 jxox=980) BASOPHILS ABSOLUTE COUNT (BEAKER) (test 0.01 K/ L 0.01-0.08 vujo=583) IMMATURE GRANULOCYTES-RELATIVE PERCENT (BEAKER) 5 % 0-1 (test bshj=2965) GLUCOMETER GLUCOSE- LAB USE [id number] 06:59:00 Test Item Value Reference Range Comments GLUCOMETER (test code=GMG) 219 mg/dL 70-100 DR YORK AWAREMeter ID: [id number]: [id number] LANA HICKEY GLUCOMETER GLUCOSE- LAB USE [id number] 04:45:00 Test Item Value Reference Range Comments GLUCOMETER (test code=GMG) 212 mg/dL 70-100 Meter ID: [id number]: [id number] PINEDA CAN
[2019-06-06 10:31] LABS: Absolute Lymphocytes (CBC) 0.5 K/uL (0.7-4.9); Basophils % 0.8 % (0-1.3); Hematocrit 26.6 % (36.0-45.0); MPV 9.2 fL (7.6-11.3); RBC Red Blood Cell Count 2.96 M/uL (3.86-4.86)
[2019-06-06 10:39] LABS: Potassium 4.8 mmol/L (3.5-5.1)
[2019-06-06 10:51] LABS: Blood Morphology Comment NOT SEEN (NOT SEEN); Platelet Estimate ADEQ
--- NOTE | 2019-06-06 12:01 | ER ---
Nurse's Notes [facility] Name: Emily Barbour Age: 48 yrs Sex: Female : 1970 Arrival Date: 06/06/2019 Time: 09:36 Bed 8 Private MD: Jean-Paul Cameron Diagnosis: Malaise and fatigue;Anemia, unspecified;Urinary tract infection, site not specified Presentation: 06/06 09:52 Presenting complaint: Patient states: has hx of anemia, feels like her blood levels are iw low, has not been feeling good and no energy since Tuesday. Transition of care: patient was not received from another setting of care. Onset of symptoms was June 04, 2019. Risk Assessment: Do you want to hurt yourself or someone else? Patient reports no desire to harm self or others. Initial Sepsis Screen: Does the patient meet any 2 criteria? No. Patient's initial sepsis screen is negative. Does the patient have a suspected source of infection? No. Patient's initial sepsis screen is negative. Care prior to arrival: None. 09:52 Method Of Arrival: Wheelchair iw 09:52 Acuity: SAL[place] 3 iw Historical: - Allergies: 09:56 Benadryl; iw 09:56 metformin; iw 09:56 Tradjenta; iw - Home Meds: 09:56 amitriptyline 100 mg Oral tab 1 tab nightly [Active]; aspirin 81 mg Oral TbEC 1 tab iw once daily [Active]; B12 2500 mcg daily [Active]; carvedilol 12.5 mg Oral tab 1 tab 2 times per day [Active]; Cymbalta 30 mg Oral cpDR 1 cap every morning [Active]; D3 2000 I.U. BID [Active]; fenofibrate 160 mg Oral tab 1 tab once daily [Active]; furosemide 40 mg Oral tab 1 tab once daily [Active]; Humalog 100 unit/mL Sub-Q soln 30 unit three times a day [Active]; Iron CR 325 Oral twice a day [Active]; levothyroxine 50 mcg tab 1 tab once daily [Active]; magnesium oxide 500 mg Oral cap twice a day [Active]; Myrbetriq 50 mg Oral Tb24 1 tab once daily [Active]; pantoprazole 40 mg Oral TbEC 1 tab once daily [Active]; sucralfate 1 gram Oral tab 1 tab 4 times per day [Active]; Toujeo SoloStar 300 unit/mL (1.5 mL) subcutaneous inpn 50 unit every morning [Active]; Trulicity subcutaneous once wkly [Active]; Victoza 3-Raghu subcutaneous 1.8 unit nightly [Active]; Vitamin D Oral daily [Active]; - PMHx: 09:56 Anemia; Diabetes - IDDM; High Cholesterol; Hypertension; Renal Disease; Tendonitis in iw Elbows; - PSHx: 09:56 Cholecystectomy; Appendectomy; Hysterectomy; neck fusion; right foot; breast reduction; iw - Immunization history:: Adult Immunizations up to date. - Coronavirus screen:: The patient has NOT traveled to [place] in the past 14 days. Proceed with normal triage process as indicated. - Family history:: not pertinent. - Social history:: Smoking status: Patient/guardian denies using tobacco, the patient reports quitting approximately 6 years ago. - Hospitalizations: : No recent hospitalization is reported. - Ebola Screening: : Patient negative for fever greater than or equal to 101.5 degrees Fahrenheit, and additional compatible Ebola Virus Disease symptoms Patient denies exposure to infectious person Patient denies travel to an Ebola-affected area in the 21 days before illness onset No symptoms or risks identified at this time. Screenin:25 Abuse screen: Denies threats or abuse. Denies injuries from another. Nutritional ph screening: No deficits noted. Tuberculosis screening: No symptoms or risk factors identified. Fall Risk None identified. Assessment: 10:22 General: Appears in no apparent distress. comfortable, well groomed, Behavior is calm, ph cooperative, appropriate for age, Reports fatigue for Denies fever, feeling ill. Pain: Denies pain. Neuro: Level of Consciousness is awake, alert, obeys commands, Oriented to person, place, time, situation, Reports generalized weakness and dizziness. Cardiovascular: Reports fatigue, lightheadedness, shortness of breath, Denies chest pain, nausea, palpitations, vomiting, Capillary refill < 3 seconds Patient's skin is warm and dry. Respiratory: Reports shortness of breath on exertion Airway is patent Respiratory effort is even, unlabored, Respiratory pattern is regular, symmetrical. GI: Patient currently denies abdominal pain, bloody stool, diarrhea. Derm: Skin is intact, is healthy with good turgor, Skin is pink, warm \T\ dry. Musculoskeletal: Circulation, motion, and sensation intact. Range of motion: intact in all extremities. 11:30 Reassessment: Patient appears in no apparent distress at this time. Patient and/or ph family updated on plan of care and expected duration. Pain level reassessed. Patient is alert, oriented x 3, equal unlabored respirations, skin warm/dry/pink. Vital Signs: 09:56 BP 115 / 60; Pulse 80; Resp 18; Temp 97.7; Pulse Ox 100% on R/A; Weight 96.62 kg; iw Height 5 ft. 5 in. (165.10 cm); Pain 0/10; 09:56 Body Mass Index 35.44 (96.62 kg, 165.10 cm) iw ED Course: 09:36 Patient arrived in ED. mr 09:37 Jean-Paul Cameron DO is Private Physician. mr 09:42 Destin Snyder MD is Attending Physician. rn 09:46 Suly Haque RN is Primary Nurse. ph 09:53 Triage completed. iw 09:58 Arm band placed on. iw 10:19 Initial lab(s) drawn, by nc, sent to lab. T\T\S collected, blood band applied to patient. ph Inserted saline lock: 20 gauge in right antecubital area, using aseptic technique. Blood collected. 10:24 Patient has correct armband on for positive identification. Bed in low position. Call ph light in reach. Side rails up X 1. Pulse ox on. NIBP on. Door closed. Noise minimized. Warm blanket given. Pillow given. 12:04 No provider procedures requiring assistance completed. IV discontinued, intact, ph bleeding controlled, No redness/swelling at site. Pressure dressing applied. Administered Medications: No medications were administered Outcome: 11:59 Discharge ordered by . rn 12:28 Discharged to home ambulatory, with significant other. ph 12:28 Condition: good 12:28 Discharge instructions given to patient, Instructed on discharge instructions, follow up and referral plans. medication usage, Demonstrated understanding of instructions, follow-up care, wound care, Prescriptions given X 1. 12:28 Patient left the ED. ph Addendum: 06/08/2019 07:42 Addendum: Culture Results: Positive urine culture. No further action required. Bacteria e b sensitive to prescribed antibiotic. Signatures: Amanda Pagan Irene, RN RN Destin Dolan MD MD rn Hall, Patricia, RN RN ph Botello, Elizabeth eb
--- NOTE | 2019-06-06 12:01 | EDPHYS ---
Physician Documentation [facility] Name: Emily Barbour Age: 48 yrs Sex: Female : 1970 Arrival Date: 06/06/2019 Time: 09:36 Bed 8 Private MD: Jean-Paul Cameron ED Physician Destin Snyder HPI: 06/06 09:49 This 48 yrs old Female presents to ER via Unassigned with complaints of rn Dizziness, Weakness. 09:49 The patient presents with dizziness, lightheadedness. Onset: The symptoms/episode rn began/occurred 5 day(s) ago. Context:. Modifying factors: The symptoms are alleviated by lying down, the symptoms are aggravated by standing up. Associated signs and symptoms: Pertinent negatives: abdominal pain, chest pain, confusion, diaphoresis, focal weakness, head injury, seizure, syncope, vomiting. Severity of symptoms: At their worst the symptoms were mild in the emergency department the symptoms are unchanged. The patient has experienced similar episodes in the past, chronically. Reports has chronic kidney disease and anemia, reports about a week of generalized weakness and lightheaded, no chest pain/fever/cough/abd pain/vomiting. Reports feels similar to when needed blood transfusion in past. . Historical: - Allergies: 09:56 Benadryl; iw 09:56 metformin; iw 09:56 Tradjenta; iw - Home Meds: 09:56 amitriptyline 100 mg Oral tab 1 tab nightly [Active]; aspirin 81 mg Oral TbEC 1 tab iw once daily [Active]; B12 2500 mcg daily [Active]; carvedilol 12.5 mg Oral tab 1 tab 2 times per day [Active]; Cymbalta 30 mg Oral cpDR 1 cap every morning [Active]; D3 2000 I.U. BID [Active]; fenofibrate 160 mg Oral tab 1 tab once daily [Active]; furosemide 40 mg Oral tab 1 tab once daily [Active]; Humalog 100 unit/mL Sub-Q soln 30 unit three times a day [Active]; Iron CR 325 Oral twice a day [Active]; levothyroxine 50 mcg tab 1 tab once daily [Active]; magnesium oxide 500 mg Oral cap twice a day [Active]; Myrbetriq 50 mg Oral Tb24 1 tab once daily [Active]; pantoprazole 40 mg Oral TbEC 1 tab once daily [Active]; sucralfate 1 gram Oral tab 1 tab 4 times per day [Active]; Toujeo SoloStar 300 unit/mL (1.5 mL) subcutaneous inpn 50 unit every morning [Active]; Trulicity subcutaneous once wkly [Active]; Victoza 3-Raghu subcutaneous 1.8 unit nightly [Active]; Vitamin D Oral daily [Active]; - PMHx: 09:56 Anemia; Diabetes - IDDM; High Cholesterol; Hypertension; Renal Disease; Tendonitis in iw Elbows; - PSHx: 09:56 Cholecystectomy; Appendectomy; Hysterectomy; neck fusion; right foot; breast reduction; iw - Immunization history:: Adult Immunizations up to date. - Coronavirus screen:: The patient has NOT traveled to [place] in the past 14 days. Proceed with normal triage process as indicated. - Family history:: not pertinent. - Social history:: Smoking status: Patient/guardian denies using tobacco, the patient reports quitting approximately 6 years ago. - Hospitalizations: : No recent hospitalization is reported. - Ebola Screening: : Patient negative for fever greater than or equal to 101.5 degrees Fahrenheit, and additional compatible Ebola Virus Disease symptoms Patient denies exposure to infectious person Patient denies travel to an Ebola-affected area in the 21 days before illness onset No symptoms or risks identified at this time. ROS: 09:49 Constitutional: Negative for fever, chills, and weight loss, Eyes: Negative for injury, rn pain, redness, and discharge, Neck: Negative for injury, pain, and swelling, Cardiovascular: Negative for chest pain, palpitations, and edema, Respiratory: Negative for cough, wheezing, and pleuritic chest pain, Abdomen/GI: Negative for abdominal pain, nausea, vomiting, diarrhea, and constipation, MS/Extremity: Negative for injury and deformity, Skin: Negative for injury, rash, and discoloration, Neuro: Negative for headache, weakness, numbness, tingling, and seizure. Exam: 09:49 Constitutional: This is a well developed, well nourished patient who is awake, alert, rn and in no acute distress. Head/Face: Normocephalic, atraumatic. Eyes: Pale conjunctivae ENT: MMM Cardiovascular: Regular rate and rhythm. No pulse deficits. Respiratory: Lungs have equal breath sounds bilaterally, clear to auscultation. No increased work of breathing, no retractions or nasal flaring. Abdomen/GI: soft, non-tender MS/ Extremity: Pulses equal, no cyanosis. Neurovascular intact. Full, normal range of motion. Equal circumference. Neuro: Awake and alert, GCS 15, oriented to person, place, time, and situation. Cranial nerves II-XII grossly intact. Motor strength 5/5 in all extremities. Sensory grossly intact. Cerebellar exam normal. Vital Signs: 09:56 BP 115 / 60; Pulse 80; Resp 18; Temp 97.7; Pulse Ox 100% on R/A; Weight 96.62 kg; iw Height 5 ft. 5 in. (165.10 cm); Pain 0/10; 09:56 Body Mass Index 35.44 (96.62 kg, 165.10 cm) iw MDM: 09:42 Patient medically screened. rn 11:58 Differential diagnosis: hypovolemia, idiopathic dizziness, dehydration, UTI, anemia. rn Data reviewed: vital signs, nurses notes, lab test result(s), and as a result, I will discharge patient. Counseling: I had a detailed discussion with the patient and/or guardian regarding: the historical points, exam findings, and any diagnostic results supporting the discharge/admit diagnosis, lab results, the need for outpatient follow up, to return to the emergency department if symptoms worsen or persist or if there are any questions or concerns that arise at home. Special discussion: I discussed with the patient/guardian in detail that at this point there is no indication for admission to the hospital. It is understood, however, that if the symptoms persist or worsen the patient needs to return immediately for re-evaluation. ED course: Hemoglobin 9.0, normal vitals, 1+ leukocytes in urine and patient with dysuria and increased frequency, will treat with abx and pcp f/u. . 06/06 09:48 Order name: CBC with Diff; Complete Time: 11:01 rn 06/06 09:48 Order name: Basic Metabolic Panel rn 06/06 09:48 Order name: Type And Screen rn 06/06 09:49 Order name: Urine Microscopic Only rn 06/06 10:53 Order name: Manual Differential; Complete Time: 11:01 EDMS 06/06 11:47 Order name: Urine Dipstick--Ancillary (enter results) iw 06/06 09:48 Order name: IV Start; Complete Time: 10:36 rn 06/06 09:49 Order name: Urine Dipstick-Ancillary (obtain specimen); Complete Time: 11:44 rn Administered Medications: No medications were administered Disposition: 06/06/19 11:59 Discharged to Home. Impression: Malaise and fatigue, Anemia, unspecified, Urinary tract infection, site not specified. - Condition is Stable. - Discharge Instructions: Anemia, Nonspecific, Urinary Tract Infection, Adult. - Prescriptions for Macrobid 100 mg Oral Capsule - take 1 capsule by ORAL route every 12 hours for 7 days; 14 capsule. - Medication Reconciliation Form, Thank You Letter, Antibiotic Education, Prescription Opioid Use, Work release form form. - Follow up: Private Physician; When: As needed; Reason: Recheck today's complaints, Re-evaluation by your physician. - Problem is new. - Symptoms have improved. Signatures: Dispatcher [employer] Laila Auguste RN RN Destin Snyder MD MD rn Hall, Patricia, RN RN ph Corrections: (The following items were deleted from the chart) 12:28 11:59 06/06/2019 11:59 Discharged to Home. Impression: Malaise and fatigue; Anemia, ph unspecified; Urinary tract infection, site not specified. Condition is Stable. Forms are Medication Reconciliation Form, Thank You Letter, Antibiotic Education, Prescription Opioid Use. Follow up: Private Physician; When: As needed; Reason: Recheck today's complaints, Re-evaluation by your physician. Problem is new. Symptoms have improved. rn
[2019-06-06 12:23] LABS: Urine Blood 1+ (NEG); Urine Glucose 1+ (NEG); Urine Protein 3+ (NEG)
[2019-06-06 12:41] LABS: Urine Bacteria >50 /HPF (<20); Urine Culture Reflex Order REFLEXED; Urine RBC <5 /HPF (NONE SEEN)
[2019-06-06 12:44] VITALS: BP 115/60; TEMP 97.7; O2SAT 100
== END 2019-06-06 12:28 | disposition home or self-care (01) ==
LOC: ER 09:34
DX: N39.0 Urinary tract infection, site not specified (principal); D64.9 Anemia, unspecified; R53.81 Other malaise; R53.83 Other fatigue; Z88.8 Allergy status to other drugs, medicaments and biological substances; E78.00 Pure hypercholesterolemia, unspecified; I10 Essential (primary) hypertension; N28.9 Disorder of kidney and ureter, unspecified
CPT/HCPCS: 36415; 80048; 81003; 81015; 85025; 86850; 86900; 86901; 87077; 87086; 87088; 87186; 99284

== ENCOUNTER 2019-06-26 13:53 | Inpatient (IN) | payer BC ==
--- OUTSIDE RECORDS SUMMARY | 2019-06-26 13:57 | XMS REPORT ---
:1970 [facility] [address] [place] [address] Care Team Providers Name Role Phone NABILA [...] ID 2018 2018 Outpatient C XIOMARA Aurelio [facility] [id number] 04:57:00 08:15:00 BERE Results Test Description Test Time Test Comments Text Results Atomic Results Result Comments BONE MARROW EXAM 2018-11-14 14:30:00 Bone Marrow Pathology Report Case: [id number] Authorizing Provider: Tiff Colmenares MD Collected: 10/20/2018 1030 Ordering Location: [address] Received: 10/20/2018 1151 Service Pathologist: Damián [...] CIRCULATING BLASTS. Signing Pathologist Direct Phone Line: [phone] signed by Damián Mckeon MD on 10/24/2018 at 4:50 PMThere is no morphologic or immunophenotypic evidence of lymphoma or acute leukemia. This patient has a reported clinical history of anemia and hepatosplenomegaly as per the electronic medical records in [facility]. The morphologic finding of the megakaryocytes is nonspecific and could be reactive however they raise concern for the presence of an evolving myeloid neoplasm. Molecular and cytogenetic studies are currently pending, with results to be issued in an addendum report. 54534; 24439; 25562 x 2; 75591; 78794, 80350, [id number] Bone marrow The case is received in three parts all labeled with the patient's name, Jose Barbour, date of 1970, and accession number, [id number], which corresponds to the accompanying requisition page [...] evaluated Immunohistochemistry technical testing was performed at [facility], Pathology Laboratory where it was [...] Comments FLOW CYTOMETRY RESULT POINTER (OPAL) (test uedr=5051) See Separate Report FLOW CYTOMETRY AP CASE # (OPAL) (test fcdm=3898) [id number] FLOW [id number] 09:46:00Flow Cytometry Report Case: [id number] Authorizing Provider: Tiff Colmenares MD Collected: 10/20/2018 1151 Ordering Location: [address] Received: 2018 1336 Service Pathologist: Damián Mckeon MD Specimen: Other BONE MARROW, FLOWCYTOMETRY:NO MONOCLONAL B CELL POPULATION.NO ABNORMAL T CELL POPULATION.NO INCREASED BLAST POPULATION.CORRELATION WITH MORPHOLOGIC FINDINGS REQUIRED. at 9: 46 [id number] marrow CD8, surface-Denhoff, CD56, surface-Lambda, CD5, CD19 , CD10, CD3, CD20, CD4, CD45, CD14, CD13, CD33, CD117, CD34, cKappa, cLambda, CD38, EH568Gmcydhcj Viability: 97.2% Blasts: The dim CD45+ CD34+ [...] developed and their performance characteristics determined by [facility]. Theyhave not been cleared or approved [...] ANTI-NUCLEAR ANTIBODY (ANGELES) (BEAKER) (test Positive Negative rqol=015) Test performed by IFA method.ANGELES TITER AND [id number] 11:18:00 Test Item Value Reference Range Comments ANGELES TITER (BEAKER) (test oyll=5817) :160 ANGELES PATTERN (BEAKER) (test ojtg=4799) Nucleolar HEPATITIS A [id number] 08:30:00 Test Item Value Reference Range Comments HEPATITIS A IGM ANTIBODY (BEAKER) (test Nonreactive Nonreactive fzru=374) HEPATITIS A IGG ANTIBODY (BEAKER) (test Reactive Nonreactive kmcx=1222) POCT-GLUCOSE [id number] 08:29:00 Test Item Value Reference Range Comments POC-GLUCOSE METER (Smart Hydro PowerAKER) 270 mg/dL 70-110 TESTED AT [address] (test sezo=5085) [facility] [address] HEPATITIS B [id number] 08:29:00 Test Item Value Reference Range Comments HEPATITIS B CORE TOTAL ANTIBODY (BEAKER) (test Nonreactive Nonreactive jkgh=966) HEPATITIS B SURFACE ANTIBODY (BEAKER) (test < mIU/mL <8.0 luny=710) HEPATITIS B SURFACE ANTIGEN (2) (BEAKER) (test Nonreactive Nonreactive kwfk=1466) BASIC METABOLIC [id number] 06:54:00 Test Item Value Reference Range Comments SODIUM (BEAKER) (test 131 meq/L 136-145 yytv=021) POTASSIUM (BEAKER) (test 4.7 meq/L 3.5-5.1 jlpo=176) CHLORIDE (BEAKER) (test 96 meq/L 98-107 luwn=299) CO2 (BEAKER) (test 25 meq/L 22-29 vtgl=927) BLOOD UREA NITROGEN 62 mg/dL 7-21 (BEAKER) (test mwbg=378) CREATININE (BEAKER) (test 2.80 mg/dL 0.57-1.25 okkd=475) GLUCOSE RANDOM (BEAKER) 278 mg/dL 70-105 (test hjew=001) CALCIUM (BEAKER) (test 9.3 mg/dL 8.4-10.2 nhtz=546) EGFR (BEAKER) (test 18 mL/min/1.73 sq m ESTIMATED GFR IS NOT ahdh=2008) ACCURATE CREATININE CLEARANCE IN PREDICTING GLOMERULAR FILTRATION RATE. ESTIMATED GFR IS NOT APPLICABLE FOR DIALYSIS PATIENTS. [id number] 06:50:00 Test Item Value Reference Range Comments MAGNESIUM (BEAKER) (test vadx=300) 2.1 mg/dL 1.6-2.6 HEPATIC FUNCTION [id number] 06:50:00 Test Item Value Reference Range Comments TOTAL PROTEIN (BEAKER) (test qkvx=843) 7.7 gm/dL 6.0-8.3 ALBUMIN (BEAKER) (test aqoc=8818) 3.5 g/dL 3.5-5.0 BILIRUBIN TOTAL (BEAKER) (test flph=385) 0.4 mg/dL 0.2-1.2 BILIRUBIN DIRECT (BEAKER) (test cgfz=621) 0.2 mg/dL 0.1-0.5 ALKALINE PHOSPHATASE (BEAKER) (test tcjc=321) 61 U/L 40-150 AST (SGOT) (BEAKER) (test xzlk=585) 39 U/L 5-34 ALT (SGPT) (BEAKER) (test jskd=766) 253 U/L 6-55 LACTATE DEHYDROGENASE (LDH)2018-10-21 06:50:00 Test Item Value Reference Range Comments LACTATE DEHYDROGENASE (BEAKER) (test qlys=390) 224 U/L 125-220 [id number] 06:20:00 Test Item Value Reference Range Comments FERRITIN (BEAKER) (test rnrh=285) 1162 ng/mL 5-275 POCT-GLUCOSE [id number] 21:09:00 Test Item Value Reference Range Comments POC-GLUCOSE METER (BEAKER) 336 mg/dL 70-110 Notified JOCY ARVIZU/TESTED AT [facility] (test scpu=1435) [address] [place] [address] POCT-GLUCOSE [id number] 18:17:00 Test Item Value Reference Range Comments POC-GLUCOSE METER (BEAKER) 308 mg/dL 70-110 TESTED AT [address] (test xaiy=2134) [facility] [address] PROTEIN ELECTROPHORESIS, [id number] 17:39:00 Test Item Value Reference Range Comments ALBUMIN FRACTION (BEAKER) 3.0 g/dL 3.5-5.5 (test zzqi=615) ALPHA 1 FRACTION (BEAKER) 0.4 g/dL 0.2-0.4 (test febc=750) ALPHA 2 FRACTION (BEAKER) 1.2 g/dL 0.5-0.9 (test nwnm=683) BETA FRACTION (BEAKER) (test 0.8 g/dL 0.6-1.1 ugjz=444) GAMMA GLOBULIN FRACTION 2.2 g/dL 0.7-1.7 (BEAKER) (test svyz=257) INTERPRETATION-119 (BEAKER) Total protein and albumin (test ddxf=5531) decreased. Alpha-1 and alpha-2 globulin percentages increased. Gamma increased in a diffuse fashion. This indicates an acute phase response and concomitant chronic immune or inflammatory response. CBPX-XMERYEYVGRL-854 Armani To M.D. (electonic (BEAKER) (test zwzs=3456) signature) PROTEIN TOTAL SERUM, SPEP 7.6 gm/dL 6.0-8.3 (BEAKER) (test lcga=5775) BONE MARROW PROCESS.2018-10-20 12:02:00 Test Item Value Reference Range Comments ANATOMIC CASE# (OPAL) (test pvxd=6201) [id number] ORDERED BY DOCTOR# (OPAL) (test gwcc=4958) Escudier PERFORMED BY DOCTOR# (OPAL) (test xzzb=8924) Cora CLOT RECEIVED? (BEAKER) (test jqcw=7917) Yes BIOPSY RECEIVED? (BEAKER) (test mwvd=5997) Yes CULTURE RECEIVED? (BEAKER) (test hoen=8097) No FLOW RECEIVED? (BEAKER) (test ptex=4790) Yes CYTOGENICS? (BEAKER) (test rwkk=6395) Yes MOLECULAR GENETICS? (BEAKER) (test hcuf=7453) Yes Good collection by Dr Curran slides are good(Rosa)CT, BIOPSY, BONE [id number] 11:46:00Reason for exam:->anemia, hepatosplenomegalyFINAL REPORT CT-guided aspiration [...] technique, CT fluoroscopic guidance and a 12-gauge VAZATA core biopsy system, initially a nine cc aspiration of the posterior left iliac bone was performed. This wasgiven to the senior quality technician who was present at the time of the study and deemed adequate. Subsequently, a core biopsy was obtained. This was also given to the senior quality technician. COMPLICATIONS:None. ESTIMATED BLOOD LOSS: Minimal. Patient Disposition: The patient was in the same state post procedure as preprocedure. IMPRESSION: Successful CT-guided aspiration and core biopsy of the bone marrow. Signed: Long Shepherd MDReport Verified Date/Time: 10/20/2018 11:46:15 Reading Location: [facility] C013X [facility] Consult Reading Room Electronically signed by: LONG SHEPHERD M.D. on 08/2018 11:46 AMPOCT-GLUCOSE [id number] 11:37:00 Test Item Value Reference Range Comments POC-GLUCOSE METER (BEAKER) 213 mg/dL 70-110 TESTED AT [facility] [address] [facility] (test atjx=1930) [facility] [address] CBC W/PLT COUNT & AUTO [id number] 10:17:00 Test Item Value Reference Range Comments WHITE BLOOD CELL COUNT (BEAKER) (test fpip=625) 5.6 K/ L 3.5-10.5 RED BLOOD CELL COUNT (BEAKER) (test cnks=467) 3.27 M/ L 3.93-5.22 HEMOGLOBIN (BEAKER) (test oabb=279) 9.5 GM/DL 11.2-15.7 HEMATOCRIT (BEAKER) (test slep=947) 29.8 % 34.1-44.9 MEAN CORPUSCULAR VOLUME (BEAKER) (test pztn=860) 91.1 fL 79.4-94.8 MEAN CORPUSCULAR HEMOGLOBIN (BEAKER) (test 29.1 pg 25.6-32.2 cfhd=151) MEAN CORPUSCULAR HEMOGLOBIN CONC (BEAKER) (test 31.9 GM/DL 32.2-35.5 jqjh=115) RED CELL DISTRIBUTION WIDTH (BEAKER) (test 15.1 % 11.7-14.4 ryic=798) PLATELET COUNT (BEAKER) (test cvql=589) 260 K/CU MM 150-450 MEAN PLATELET VOLUME (BEAKER) (test bcon=635) 11.1 fL 9.4-12.3 NUCLEATED RED BLOOD CELLS (BEAKER) (test 0 /100 WBC 0-0 vlqb=779) (CELLAVISION MANUAL DIFF)2018-10-20 10:17:00 Test Item Value Reference Range Comments NEUTROPHILS - REL (CELLAVISION)(BEAKER) (test 60 % txvs=6384) LYMPHOCYTES - REL (CELLAVISION)(BEAKER) (test 31 % agsd=3102) MONOCYTES - REL (CELLAVISION)(BEAKER) (test 3 % dmqo=6494) EOSINOPHILS - REL (CELLAVISION)(BEAKER) (test 4 % xypw=5600) METAMYELOCYTES - REL (CELLAVISION)(BEAKER) (test 1 % 0-0 bvzr=3287) BANDS - REL (CELLAVISION)(BEAKER) (test 1 % 0-10 rxbi=8937) NEUTROPHILS - ABS (CELLAVISION)(BEAKER) (test 3.36 K/ul 1.56-6.13 qirc=7336) LYMPHOCYTES - ABS (CELLAVISION)(BEAKER) (test 1.74 K/ul 1.18-3.74 rbqp=6730) MONOCYTES - ABS (CELLAVISION)(BEAKER) (test 0.17 K/uL 0.24-0.36 lohg=0591) EOSINOPHILS - ABS (CELLAVISION)(BEAKER) (test 0.22 K/uL 0.04-0.36 vgyl=1202) METAMYELOCYTES - ABS (CELLAVISION)(BEAKER) (test 0.06 K/uL 0.00-0.00 acza=7530) BANDS - ABS (CELLAVISION)(BEAKER) (test 0.06 K/uL 0.00-0.80 klae=2853) TOTAL COUNTED (BEAKER) (test sjks=7242) 100 MANUAL NRBC PER 100 CELLS (BEAKER) (test 1 /100 WBC 0-0 rffz=0396) WBC MORPHOLOGY (BEAKER) (test senw=481) Normal PLT MORPHOLOGY (BEAKER) (test svsr=936) Normal POLYCHROMATOPHILLIC RBCS(BEAKER) (test iduu=877) 1+ few ANISOCYTOSIS (BEAKER) (test jwyt=259) 1+ few ARTIFACT (CELLAVISION)(BEAKER) (test wbwy=3563) Present PLATELET CONCENTRATION (CELLAVISION)(BEAKER) Adequate (test npwn=4166) Received comment: User comments: Slide comments:BASIC METABOLIC [id number] 07:15:00 Test Item Value Reference Range Comments SODIUM (BEAKER) (test 135 meq/L 136-145 rqju=562) POTASSIUM (BEAKER) (test 4.6 meq/L 3.5-5.1 Specimen slightly nmgk=266) hemolyzed CHLORIDE (BEAKER) (test 97 meq/L 98-107 sfft=883) CO2 (BEAKER) (test 26 meq/L 22-29 ldpy=846) BLOOD UREA NITROGEN 56 mg/dL 7-21 (BEAKER) (test iekz=220) CREATININE (BEAKER) (test 2.65 mg/dL 0.57-1.25 Specimen slightly rxtf=110) hemolyzed GLUCOSE RANDOM (BEAKER) 191 mg/dL 70-105 (test gzjh=668) CALCIUM (BEAKER) (test 9.6 mg/dL 8.4-10.2 xvkz=962) EGFR (BEAKER) (test 19 mL/min/1.73 sq m ESTIMATED GFR IS NOT njbq=9777) ACCURATE CREATININE CLEARANCE IN PREDICTING GLOMERULAR FILTRATION RATE. ESTIMATED GFR IS NOT APPLICABLE FOR DIALYSIS PATIENTS. [id number] 06:12:00 Test Item Value Reference Range Comments MAGNESIUM (BEAKER) (test 2.0 mg/dL 1.6-2.6 Specimen slightly hemolyzed olpy=460) [id number] 06:12:00 Test Item Value Reference Range Comments PHOSPHORUS (BEAKER) (test 4.7 mg/dL 2.3-4.7 Specimen slightly hemolyzed sznm=957) [id number] 06:06:00 Test Item Value Reference Range Comments PROTIME (BEAKER) (test jrao=011) 13.0 seconds 11.9-14.2 INR (BEAKER) (test lvzw=343) 1.0 <=5.9 PARTIAL THROMBOPLASTIN TIME (BEAKER) (test 32.3 seconds 22.5-36.0 sjsy=249) Effective 09/13/2018: PT Reference Range ChangeNew: 11.9-14.2 Previous: 11.7- 14.7RECOMMENDED COUMADIN/WARFARIN INR THERAPY RANGESSTANDARD DOSE: 2.0-3.0 Includes: PROPHYLAXIS for venous thrombosis, systemic embolization; TREATMENT for venous thrombosis and/or pulmonary embolus.HIGH RISK: Target INR is2.5-3.5 for patients wiht mechanical heart valves.POCT-GLUCOSE [id number] 21:39:00 Test Item Value Reference Range Comments POC-GLUCOSE METER (BEAKER) 327 mg/dL 70-110 Will Repeat Test/TESTED AT (test vnss=3997) [facility] [address] [facility] [address] POCT-GLUCOSE [id number] 17:28:00 Test Item Value Reference Range Comments POC-GLUCOSE METER (BEAKER) 244 mg/dL 70-110 TESTED AT [address] (test epks=5326) [facility] [address] RHEUMATOID FACTOR AB, REFLEX TO [id number] 11:15:00 Test Item Value Reference Range Comments RHEUMATOID FACTOR (BEAKER) (test tthp=701) Negative CBC W/PLT COUNT & AUTO [id number] 09:44:00 Test Item Value Reference Range Comments WHITE BLOOD CELL COUNT (BEAKER) (test lbit=810) 4.8 K/ L 3.5-10.5 RED BLOOD CELL COUNT (BEAKER) (test fday=305) 3.17 M/ L 3.93-5.22 HEMOGLOBIN (BEAKER) (test jjnn=696) 9.0 GM/DL 11.2-15.7 HEMATOCRIT (BEAKER) (test vvpq=723) 29.0 % 34.1-44.9 MEAN CORPUSCULAR VOLUME (BEAKER) (test yzrs=792) 91.5 fL 79.4-94.8 MEAN CORPUSCULAR HEMOGLOBIN (BEAKER) (test 28.4 pg 25.6-32.2 uiry=642) MEAN CORPUSCULAR HEMOGLOBIN CONC (BEAKER) (test 31.0 GM/DL 32.2-35.5 sfqt=341) RED CELL DISTRIBUTION WIDTH (BEAKER) (test 15.2 % 11.7-14.4 jdld=148) PLATELET COUNT (BEAKER) (test mxsq=029) 228 K/CU MM 150-450 MEAN PLATELET VOLUME (BEAKER) (test trva=995) 10.7 fL 9.4-12.3 NUCLEATED RED BLOOD CELLS (BEAKER) (test 1 /100 WBC 0-0 whqb=269) (CELLAVISION MANUAL DIFF)2018-10-19 09:44:00 Test Item Value Reference Range Comments NEUTROPHILS - REL (CELLAVISION)(BEAKER) (test 72 % osus=7715) LYMPHOCYTES - REL (CELLAVISION)(BEAKER) (test 14 % obtr=6111) MONOCYTES - REL (CELLAVISION)(BEAKER) (test 4 % sqcd=8511) EOSINOPHILS - REL (CELLAVISION)(BEAKER) (test 5 % cdmw=8303) METAMYELOCYTES - REL (CELLAVISION)(BEAKER) (test 4 % 0-0 ypzv=1021) MYELOCYTES - REL (CELLAVISION)(BEAKER) (test 1 % 0-0 mgzf=0935) NEUTROPHILS - ABS (CELLAVISION)(BEAKER) (test 3.46 K/ul 1.56-6.13 gzko=9184) LYMPHOCYTES - ABS (CELLAVISION)(BEAKER) (test 0.67 K/ul 1.18-3.74 isyr=4755) MONOCYTES - ABS (CELLAVISION)(BEAKER) (test 0.19 K/uL 0.24-0.36 dotc=6433) EOSINOPHILS - ABS (CELLAVISION)(BEAKER) (test 0.24 K/uL 0.04-0.36 izfh=6804) METAMYELOCYTES - ABS (CELLAVISION)(BEAKER) (test 0.19 K/uL 0.00-0.00 wxzc=8247) MYELOCYTES-ABS (CELLAVISION)(BEAKER) (test 0.05 K/uL 0.00-0.00 jram=4084) TOTAL COUNTED (BEAKER) (test ssev=4370) 100 MANUAL NRBC PER 100 CELLS (BEAKER) (test 2 /100 WBC 0-0 aqyb=0190) SMUDGE CELLS (BEAKER) (test ortw=2764) Present GIANT PLATELETS (BEAKER) (test faen=186) Present ANISOCYTOSIS (BEAKER) (test rdab=375) 1+ few PLATELET CONCENTRATION (CELLAVISION)(BEAKER) Adequate (test kqvk=2404) Received comment: User comments: Slide comments:POCT-GLUCOSE [id number] 09: 05:00 Test Item Value Reference Range Comments POC-GLUCOSE METER (BEAKER) 166 mg/dL 70-110 TESTED AT [facility] [address] [facility] (test uhhe=4693) [facility] [address] COMPREHENSIVE METABOLIC [id number] 07:14:00 Test Item Value Reference Range Comments TOTAL PROTEIN (BEAKER) 8.2 gm/dL 6.0-8.3 Specimen slightly (test fsbd=029) hemolyzed ALBUMIN (BEAKER) (test 3.6 g/dL 3.5-5.0 Specimen slightly utfl=5581) hemolyzed ALKALINE PHOSPHATASE 72 U/L 40-150 (BEAKER) (test uvmy=634) BILIRUBIN TOTAL (BEAKER) 0.5 mg/dL 0.2-1.2 Specimen slightly (test yasg=726) hemolyzed SODIUM (BEAKER) (test 135 meq/L 136-145 ewpn=582) POTASSIUM (BEAKER) (test 4.2 meq/L 3.5-5.1 Specimen slightly txxk=710) hemolyzed CHLORIDE (BEAKER) (test 97 meq/L 98-107 tamb=439) CO2 (BEAKER) (test 27 meq/L 22-29 kpfj=352) BLOOD UREA NITROGEN 60 mg/dL 7-21 (BEAKER) (test jzne=792) CREATININE (BEAKER) (test 2.79 mg/dL 0.57-1.25 Specimen slightly crzh=486) hemolyzed GLUCOSE RANDOM (BEAKER) 171 mg/dL 70-105 (test prfv=891) CALCIUM (BEAKER) (test 9.5 mg/dL 8.4-10.2 cgan=782) AST (SGOT) (BEAKER) (test 152 U/L 5-34 Specimen slightly mnjn=690) hemolyzed ALT (SGPT) (BEAKER) (test 532 U/L 6-55 Specimen slightly qdro=045) hemolyzed EGFR (BEAKER) (test 18 mL/min/1.73 sq m ESTIMATED GFR IS NOT nyfv=7842) ACCURATE CREATININE CLEARANCE IN PREDICTING GLOMERULAR FILTRATION RATE. ESTIMATED GFR IS NOT APPLICABLE FOR DIALYSIS PATIENTS. [id number] 06:36:00 Test Item Value Reference Range Comments MAGNESIUM (BEAKER) (test 2.0 mg/dL 1.6-2.6 Specimen slightly hemolyzed tfxe=860) [id number] 06:36:00 Test Item Value Reference Range Comments PHOSPHORUS (BEAKER) (test 4.4 mg/dL 2.3-4.7 Specimen slightly hemolyzed togt=266) URIC [id number] 06:36:00 Test Item Value Reference Range Comments URIC ACID (BEAKER) (test 9.8 mg/dL 2.6-7.2 Specimen slightly hemolyzed bqcf=995) HEPATIC FUNCTION [id number] 06:36:00 Test Item Value Reference Range Comments TOTAL PROTEIN (BEAKER) (test 8.2 gm/dL 6.0-8.3 Specimen slightly hemolyzed jmeh=873) ALBUMIN (BEAKER) (test 3.6 g/dL 3.5-5.0 Specimen slightly hemolyzed xzcj=6226) BILIRUBIN TOTAL (BEAKER) (test 0.5 mg/dL 0.2-1.2 Specimen slightly hemolyzed gfqu=787) BILIRUBIN DIRECT (BEAKER) (test 0.2 mg/dL 0.1-0.5 Specimen slightly hemolyzed hwih=011) ALKALINE PHOSPHATASE (BEAKER) 72 U/L 40-150 (test emge=269) AST (SGOT) (BEAKER) (test 152 U/L 5-34 Specimen slightly hemolyzed zgvp=544) ALT (SGPT) (BEAKER) (test 532 U/L 6-55 Specimen slightly hemolyzed obif=523) B-TYPE NATRIURETIC FACTOR (BNP)2018-10-19 06:33:00 Test Item Value Reference Range Comments B-TYPE NATRIURETIC PEPTIDE (BEAKER) (test 162 pg/mL 0-100 nxhk=160) PROTHROMBIN [id number] 06:06:00 Test Item Value Reference Range Comments PROTIME (BEAKER) (test adyr=792) 13.4 seconds 11.9-14.2 INR (BEAKER) (test jlah=708) 1.1 <=5.9 Effective 09/13/2018: PT Reference Range ChangeNew: 11.9-14.2 Previous: 11.7- 14.7RECOMMENDED COUMADIN/WARFARIN INR THERAPY RANGESSTANDARD DOSE: 2.0-3.0 Includes: PROPHYLAXIS for venous thrombosis, systemic embolization; TREATMENT for venous thrombosis and/or pulmonary embolus.HIGH RISK: Target INR is2.5-3.5 for patients wiht mechanical heart valves.CALCIUM, [id number] 05:56:00 Test Item Value Reference Range Comments CALCIUM IONIZED (BEAKER) (test junp=106) 1.10 mmol/L 1.12-1.27 PH, BLOOD (BEAKER) (test cbls=7169) 7.38 CALCIUM, [id number] 05:56:00 Test Item Value Reference Range Comments CALCIUM IONIZED (BEAKER) (test ludc=586) 1.07 mmol/L 1.12-1.27 PH, BLOOD (BEAKER) (test odym=6050) 7.41 POCT-GLUCOSE [id number] 21:33:00 Test Item Value Reference Range Comments POC-GLUCOSE METER (BEAKER) 297 mg/dL 70-110 TESTED AT [facility] [address] [place] [address] (test qenj=7235) [facility] [address] CMV PCR, [id number] 18:31:00 Test Item Value Reference Range Comments CMV VIRAL LOAD - NEGATIVE Negative or below the linear (BEAKER) (test atzm=2730) range of the assay (<375 copies/mL) Cytomegalovirus [...] and its performance characteristics determined by the [facility] Pathology Department, Section of Molecular Pathology. It has not been cleared or approved by the U.S. Food and Drug Administration (FDA), since FDA approval is not required for clinical use of the test. Validation was done as required by The Clinical Laboratory Improvement Amendments of 1988.EBV VIRAL [id number] 18:23:00 Test Item Value Reference Range Comments EBV VIRAL LOAD - NEGATIVE Negative or below the linear (BEAKER) (test bjmt=4481) range of the assay (<500 copies/mL) This [...] developedand its performance characteristics determined by the [facility] Pathology Department, Section of Molecular Pathology. It has not been cleared or approved by the U.S. Food and Drug Administration (FDA), since FDA approval is not required for clinical use of the test. Validation was doneas required by The Clinical Laboratory Improvement Amendments of 1988.POCT-GLUCOSE [id number] 18:02:00 Test Item Value Reference Range Comments POC-GLUCOSE METER (BEAKER) 198 mg/dL 70-110 TESTED AT [facility] [address] [facility] (test hdjh=7096) [facility] [address] RESPIRATORY PANEL [id number] 17:32:00 Test Item Value Reference Range Comments HUMAN METAPNEUMOVIRUS (BEAKER) (test Not detected Not detected, Equivocal nhxt=2861) RHINOVIRUS (BEAKER) (test tvup=3448) Not detected Not detected, Equivocal INFLUENZA A (BEAKER) (test iigl=3971) Not detected Not detected, Equivocal INFLUENZA A (NO SUBTYPE) (test Not detected, Equivocal gnrz=1453) INFLUENZA A SUBTYPE H1 (BEAKER) (test Not detected, Equivocal pusm=1358) INFLUENZA A SUBTYPE H3 (BEAKER) (test Not detected, Equivocal gier=1299) INFLUENZA A SUBTYPE H1-2009 (BEAKER) Not detected, Equivocal (test uiyw=9817) INFLUENZA B (BEAKER) (test eaau=6512) Not detected Not detected, Equivocal RESPIRATORY SYNCYTIAL VIRUS (BEAKER) Not detected Not detected, Equivocal (test yvvp=4297) PARAINFLUENZA VIRUS 1 (BEAKER) (test Not detected Not detected, Equivocal fokq=0062) PARAINFLUENZA VIRUS 2 (BEAKER) (test Not detected Not detected, Equivocal bmic=6749) PARAINFLUENZA VIRUS 3 (BEAKER) (test Not detected Not detected, Equivocal swgh=9152) PARAINFLUENZA VIRUS 4 (BEAKER) (test Not detected Not detected, Equivocal dypn=6336) ADENOVIRUS (BEAKER) (test boqb=9931) Not detected Not detected, Equivocal CORONAVIRUS 229E (BEAKER) (test Not detected Not detected, Equivocal matv=4369) CORONAVIRUS HKU1 (BEAKER) (test Not detected Not detected, Equivocal jbnq=6823) CORONAVIRUS NL63 (BEAKER) (test Not detected Not detected, Equivocal supg=7873) CORONAVIRUS OC43 (BEAKER) (test Not detected Not detected, Equivocal znsm=7262) BORDETELLA PERTUSSIS (BEAKER) (test Not detected Not detected, Equivocal wfxl=3871) CHLAMYDOPHILA PNEUMONIAE (BEAKER) (test Not detected Not detected, Equivocal rqer=1467) MYCOPLASMA PNEUMONIAE (BEAKER) (test Not detected Not detected, Equivocal raxy=7959) Other viruses and bacteria not targeted by this PCR panel cannot be excluded; therefore clinical correlation and follow up of serology, culture results, and other molecular studies is required. The results are not intended to be used as the sole means for clinical diagnosis or patient management decisions. This sample was tested at the [facility] using the [employer] Respiratory Panel. It is FDA cleared and has been verified and approved by the [facility] for clinical use on nasopharyngeal swab specimens.The performance of the [employer] has not been established in individuals who received influenza vaccine. Recent administration ofa nasal influenza vaccine may cause false positive results for Influenza A and/orInfluenza B.EOSINOPHIL SMEAR, [id number] 16:42:00 Test Item Value Reference Range Comments EOSINOPHIL SMEAR, URINE (BEAKER) Rare EOS=less than 5% WBCs No EOS seen (test bvsi=4379) seen are EOS CT, CHEST, WITHOUT [id number] 16:31:00FINAL REPORT CT Chest, abdomen, and pelvis [...] MDReport Verified Date/Time: 10/18/2018 16:31:25 Reading Location: [facility] Radiology Reading Room CT, [id number] 16:31:00Reason for exam:->hepatosplenomegalyFINAL REPORT CT Chest, abdomen, [...] MDReport Verified Date/Time: 10/18/2018 16:31:25 Reading Location: [facility] Radiology Reading Room Electronically signed by: MANI MOREL MD on 06/2018 04:31 PMCBC W/PLT COUNT & AUTO [id number] 15:06:00 Test Item Value Reference Range Comments WHITE BLOOD CELL COUNT 4.4 K/ L 3.5-10.5 This is a corrected result. (BEAKER) (test nglm=649) Previous result was 4.2 K/ L on 10/18/2018 at 0657 CDT RED BLOOD CELL COUNT (BEAKER) 2.92 M/ L 3.93-5.22 This is a corrected result. (test jybd=325) Previous result was 2.88 M/ L on 10/18/2018 at 0657 CDT HEMOGLOBIN (BEAKER) (test 8.3 GM/DL 11.2-15.7 asie=402) HEMATOCRIT (BEAKER) (test 27.1 % 34.1-44.9 This is a corrected result. bvsg=521) Previous result was 26.4 % on 10/18/2018 at 0657 CDT MEAN CORPUSCULAR VOLUME 92.8 fL 79.4-94.8 This is a corrected result. (BEAKER) (test oajz=470) Previous result was 91.7 fL on 10/18/2018 at 0657 CDT MEAN CORPUSCULAR HEMOGLOBIN 28.4 pg 25.6-32.2 This is a corrected result. (BEAKER) (test hnlm=533) Previous result was 28.8 pg on 10/18/2018 at 0657 CDT MEAN CORPUSCULAR HEMOGLOBIN 30.6 GM/DL 32.2-35.5 This is a corrected result. CONC (BEAKER) (test vrvv=012) Previous result was 31.4 GM/DL on 10/18/2018 at 0657 CDT RED CELL DISTRIBUTION WIDTH 15.3 % 11.7-14.4 This is a corrected result. (BEAKER) (test dxeo=481) Previous result was 15.1 % on 10/18/2018 at 0657 CDT PLATELET COUNT (BEAKER) (test 185 K/CU MM 150-450 This is a corrected result. szgx=030) Previous result was 177 K/CU MM on 10/18/2018 at 0657 CDT MEAN PLATELET VOLUME (BEAKER) 11.3 fL 9.4-12.3 This is a corrected result. (test eqbr=921) Previous result was 11.1 fL on 10/18/2018 at 0657 CDT NUCLEATED RED BLOOD CELLS 2 /100 WBC 0-0 This is a corrected result. (BEAKER) (test tcde=721) Previous result was 1 /100 WBC on 10/18/2018 at 0657 CDT (CELLAVISION MANUAL DIFF)2018-10-18 15:04:00 Test Item Value Reference Range Comments NEUTROPHILS - REL (CELLAVISION)(BEAKER) (test 74 % omyi=4047) LYMPHOCYTES - REL (CELLAVISION)(BEAKER) (test 14 % txxh=4822) MONOCYTES - REL (CELLAVISION)(BEAKER) (test 3 % ipce=0442) EOSINOPHILS - REL (CELLAVISION)(BEAKER) (test 6 % lenv=8096) MYELOCYTES - REL (CELLAVISION)(BEAKER) (test 3 % 0-0 rxfe=9929) NEUTROPHILS - ABS (CELLAVISION)(BEAKER) (test 3.26 K/ul 1.56-6.13 jigw=0883) LYMPHOCYTES - ABS (CELLAVISION)(BEAKER) (test 0.62 K/ul 1.18-3.74 xmcb=0103) MONOCYTES - ABS (CELLAVISION)(BEAKER) (test 0.13 K/uL 0.24-0.36 eamw=1098) EOSINOPHILS - ABS (CELLAVISION)(BEAKER) (test 0.26 K/uL 0.04-0.36 zycw=4208) MYELOCYTES-ABS (CELLAVISION)(BEAKER) (test 0.13 K/uL 0.00-0.00 tnct=1164) TOTAL COUNTED (BEAKER) (test nsvy=5188) 100 MANUAL NRBC PER 100 CELLS (BEAKER) (test 1 /100 WBC 0-0 mlvk=5224) WBC MORPHOLOGY (BEAKER) (test kxur=771) Normal CLUMPED PLATELETS (BEAKER) (test txuq=629) Present GIANT PLATELETS (BEAKER) (test masd=805) Present POLYCHROMATOPHILLIC RBCS(BEAKER) (test cwxk=809) 1+ few ANISOCYTOSIS (BEAKER) (test ckuu=439) 1+ few MICROCYTES (BEAKER) (test uxgn=517) 1+ few ARTIFACT (CELLAVISION)(BEAKER) (test ecuw=6635) Present PLATELET CONCENTRATION (CELLAVISION)(BEAKER) Adequate (test bkqj=3332) Received comment: User comments: Slide comments:RAPID INFLUENZA A&B [id number] 13:32:00 Test Item Value Reference Range Comments RAPID INFLUENZA A AG (BEAKER) (test Negative Negative, Inconclusive ufbt=6539) RAPID INFLUENZA B AG (BEAKER) (test Negative Negative, Inconclusive ijvm=9450) [id number] 13:19:00 Test Item Value Reference Range Comments FERRITIN (BEAKER) (test fhqb=971) 6230 ng/mL 5-275 HIV-1 ANTIGEN WITH HIV-1/2 [id number] 12:57:00 Test Item Value Reference Range Comments HIV-1 ANTIGEN WITH HIV 1\\T\\2 ANTIBODY (2) Nonreactive Nonreactive (BEAKER) (test uych=8018) [id number] 12:53:00 Test Item Value Reference Range Comments HAPTOGLOBIN (BEAKER) (test lglv=316) 301 mg/dL 14-258 [id number] 12:34:00 Test Item Value Reference Range Comments D-DIMER QUANTITATIVE (BEAKER) (test wnvc=867) 13.12 MG/L FEU <0.50 Intended Use: The [...] is within 95-100% range.ALPHA FETOPROTEIN (AFP), TUMOR [id number] 12:29:00 Test Item Value Reference Range Comments ALPHA-FETOPROTEIN (BEAKER) (test vsps=3176) < ng/mL <10.0 [id number] 11:08:00 Test Item Value Reference Range Comments TRIGLYCERIDES (BEAKER) (test wsdd=644) 299 mg/dL TRIGLYCERIDE REFERENCE RANGELow Risk <150Borderline Risk 150-199High Risk 200-499Very High Risk>=500POCT-GLUCOSE [id number] 11:05:00 Test Item Value Reference Range Comments POC-GLUCOSE METER (BEAKER) 248 mg/dL 70-110 TESTED AT [address] (test rpug=9879) [place] [id number] RETICULOCYTE [id number] 11:05:00 Test Item Value Reference Range Comments RETICULOCYTE COUNT PCT (BEAKER) (test lonh=020) 4.3 % 0.5-1.7 IRON, TIBC, % SAT. (WITHOUT FERRITIN)2018-10-18 10:12:00 Test Item Value Reference Range Comments IRON (BEAKER) (test iage=586) 42.0 ug/dL 40.0-160.0 TOTAL IRON BINDING CAPACITY (BEAKER) (test 264 ug/dL 250-450 bkdb=147) IRON % SATURATION (2) (BEAKER) (test sgga=2281) 16 % 20-55 POCT-GLUCOSE [id number] 08:55:00 Test Item Value Reference Range Comments POC-GLUCOSE METER (BEAKER) 198 mg/dL 70-110 TESTED AT [address] (test rkax=1974) [place] [id number] 06:57:00 Test Item Value Reference Range Comments PHOSPHORUS (BEAKER) (test fele=516) 4.5 mg/dL 2.3-4.7 [id number] 06:57:00 Test Item Value Reference Range Comments MAGNESIUM (BEAKER) (test svfh=144) 1.7 mg/dL 1.6-2.6 HEPATIC FUNCTION [id number] 06:57:00 Test Item Value Reference Range Comments TOTAL PROTEIN (BEAKER) (test nurz=214) 7.6 gm/dL 6.0-8.3 ALBUMIN (BEAKER) (test wqnr=4565) 3.4 g/dL 3.5-5.0 BILIRUBIN TOTAL (BEAKER) (test jlxe=847) 0.5 mg/dL 0.2-1.2 BILIRUBIN DIRECT (BEAKER) (test lqlg=246) 0.3 mg/dL 0.1-0.5 ALKALINE PHOSPHATASE (BEAKER) (test errt=711) 75 U/L 40-150 AST (SGOT) (BEAKER) (test lcih=154) 273 U/L 5-34 ALT (SGPT) (BEAKER) (test cnmm=197) 693 U/L 6-55 BASIC METABOLIC [id number] 06:57:00 Test Item Value Reference Range Comments SODIUM (BEAKER) (test 135 meq/L 136-145 nqpl=607) POTASSIUM (BEAKER) (test 3.9 meq/L 3.5-5.1 ectd=990) CHLORIDE (BEAKER) (test 98 meq/L 98-107 tokn=128) CO2 (BEAKER) (test 28 meq/L 22-29 fbmi=060) BLOOD UREA NITROGEN 64 mg/dL 7-21 (BEAKER) (test xluj=626) CREATININE (BEAKER) (test 3.19 mg/dL 0.57-1.25 nicc=431) GLUCOSE RANDOM (BEAKER) 162 mg/dL 70-105 (test pfop=255) CALCIUM (BEAKER) (test 9.1 mg/dL 8.4-10.2 bgmz=489) EGFR (BEAKER) (test 16 mL/min/1.73 sq m ESTIMATED GFR IS NOT cmpj=1256) ACCURATE CREATININE CLEARANCE IN PREDICTING GLOMERULAR FILTRATION RATE. ESTIMATED GFR IS NOT APPLICABLE FOR DIALYSIS PATIENTS. PROTHROMBIN [id number] 06:37:00 Test Item Value Reference Range Comments PROTIME (BEAKER) (test umox=965) 14.3 seconds 11.9-14.2 INR (BEAKER) (test jvyj=637) 1.2 <=5.9 Effective 09/13/2018: PT Reference Range ChangeNew: 11.9-14.2 Previous: 11.7- 14.7RECOMMENDED COUMADIN/WARFARIN INR THERAPY RANGESSTANDARD DOSE: 2.0-3.0 Includes: PROPHYLAXIS for venous thrombosis, systemic embolization; TREATMENT for venous thrombosis and/or pulmonary embolus.HIGH RISK: Target INR is2.5-3.5 for patients wiht mechanical heart valves.CALCIUM, [id number] 06:19:00 Test Item Value Reference Range Comments CALCIUM IONIZED (BEAKER) (test axpf=331) 1.09 mmol/L 1.12-1.27 PH, BLOOD (BEAKER) (test fbuy=6348) 7.36 POCT-GLUCOSE [id number] 21:54:00 Test Item Value Reference Range Comments POC-GLUCOSE METER (BEAKER) 281 mg/dL 70-110 TESTED AT [address] (test hwau=7166) [facility] [address] RAD, CHEST, 1 VIEW, NON [id number] 19:11:00Reason for exam:->SOBShould this be performed at [...] Verified Date/ Time: 10/17/2018 19:11:02 Reading Location: [facility] [id number] Consult Reading Room [id number] 17:36:00 Test Item Value Reference Range Comments FERRITIN (BEAKER) (test npjq=356) 28171 ng/mL 5-275 LACTATE DEHYDROGENASE (LDH)2018-10-17 16:41:00 Test Item Value Reference Range Comments LACTATE DEHYDROGENASE (OPAL) (test wayh=848) 541 U/L 125-220 [id number] 16:37:00 Test Item Value Reference Range Comments FIBRINOGEN LEVEL (OPAL) (test drtw=660) 439 mg/dl 225-434 POCT-GLUCOSE [id number] 12:47:00 Test Item Value Reference Range Comments POC-GLUCOSE METER (OPAL) 250 mg/dL 70-110 TESTED AT [facility] [address] [facility] (test pubn=1186) [facility] [address] PUL PERF IMAGING, PARTIC, [id number] 10:48:00FINAL REPORT PROCEDURE: V/Q LUNG SCAN CPT CODE: 93415 INDICATION: Acute chest pain pulmonary origin PROTOCOL: [...] suggestive of a fatty liver. Signed: Alvino [facility]al[facility] Verified Date/Time: 10/17/2018 10:48:21 Reading Location: [address] Reading Room Electronically signed by: ALVINO MIRANDA MD on 05/2018 10:48 AMU/S, PELVIC, [id number] 10:02:00Reason for exam:-> AKIFINAL REPORT Abdominal and [...] Ayoub MDReport Verified Date/Time:10/17/2018 10:02:56 Reading Location: [address] Radiology Reading Room U/S, ABDOMINAL, WITH [id number] 10:02: 00Reason for exam:->elevated transaminasesFINAL REPORT Abdominal [...] Normal Doppler of the abdomen. Signed: [facility] Verified Date/Time:2018 10:02:56 Reading Location: [address] Radiology Reading Room VITAMIN B12 AND [id number] 08:37:00 Test Item Value Reference Range Comments VITAMIN B12 (BEAKER) (test iyqu=006) > pg/mL 213-816 FOLATE (BEAKER) (test hicy=903) 13.3 ng/mL >=7.0 POCT-GLUCOSE [id number] 08:32:00 Test Item Value Reference Range Comments POC-GLUCOSE METER (BEAKER) 168 mg/dL 70-110 TESTED AT [facility] [address] [facility] (test tbgn=6722) [facility] [address] [id number] 08:03:00 Test Item Value Reference Range Comments FERRITIN (BEAKER) (test tmge=706) 93192 ng/mL 5-275 URIC [id number] 06:15:00 Test Item Value Reference Range Comments URIC ACID (BEAKER) (test uoqg=939) 13.2 mg/dL 2.6-7.2 [id number] 06:15:00 Test Item Value Reference Range Comments MAGNESIUM (BEAKER) (test wqmn=493) 1.8 mg/dL 1.6-2.6 LIPID [id number] 06:15:00 Test Item Value Reference Range Comments TRIGLYCERIDES (BEAKER) (test jjbo=293) 223 mg/dL CHOLESTEROL (BEAKER) (test gsur=123) 119 mg/dL HDL CHOLESTEROL (BEAKER) (test cpur=905) 30 mg/dL LDL CHOLESTEROL CALCULATED (BEAKER) (test 44 mg/dL ozud=848) Triglyceride Reference Range: Low Risk <150 Borderline 150- 199 High Risk 200-499 Very High Risk >=500Cholesterol Reference Range: Low Risk <200 Borderline 200-239 High Risk > 240HDL Cholesterol Reference Range: Low Risk >=60 High Risk <40LDL Cholesterol Reference Range: Optimal <100 Near Optimal 100-129 Borderline 130-159 High 160-189 Very High >=190HEPATIC FUNCTION [id number] 06:15:00 Test Item Value Reference Range Comments TOTAL PROTEIN (BEAKER) (test ckkc=876) 7.9 gm/dL 6.0-8.3 ALBUMIN (BEAKER) (test ypfv=6859) 3.7 g/dL 3.5-5.0 BILIRUBIN TOTAL (BEAKER) (test rbqg=301) 0.5 mg/dL 0.2-1.2 BILIRUBIN DIRECT (BEAKER) (test agak=569) 0.3 mg/dL 0.1-0.5 ALKALINE PHOSPHATASE (BEAKER) (test qskt=655) 83 U/L 40-150 AST (SGOT) (BEAKER) (test qfor=950) 747 U/L 5-34 ALT (SGPT) (BEAKER) (test ulkc=667) 1009 U/L 6-55 COMPLEMENT COMPONENT [id number] 06:15:00 Test Item Value Reference Range Comments C4 COMPLEMENT (BEAKER) (test kljl=493) 28 mg/dL 15-57 COMPLEMENT COMPONENT [id number] 06:15:00 Test Item Value Reference Range Comments C3 COMPLEMENT (BEAKER) (test ndlm=670) 106 mg/dL 82-193 IRON, TIBC, % SAT. (WITHOUT FERRITIN)2018-10-17 06:15:00 Test Item Value Reference Range Comments IRON (BEAKER) (test zeyn=413) 39.0 ug/dL 40.0-160.0 TOTAL IRON BINDING CAPACITY (BEAKER) (test 265 ug/dL 250-450 jznw=187) IRON % SATURATION (2) (BEAKER) (test wykt=3343) 15 % 20-55 BASIC METABOLIC [id number] 06:15:00 Test Item Value Reference Range Comments SODIUM (BEAKER) (test 134 meq/L 136-145 uagk=023) POTASSIUM (BEAKER) (test 4.2 meq/L 3.5-5.1 iovm=942) CHLORIDE (BEAKER) (test 100 meq/L 98-107 andn=999) CO2 (BEAKER) (test 26 meq/L 22-29 dfoc=923) BLOOD UREA NITROGEN 64 mg/dL 7-21 (BEAKER) (test ittv=230) CREATININE (BEAKER) (test 3.66 mg/dL 0.57-1.25 cwbc=267) GLUCOSE RANDOM (BEAKER) 123 mg/dL 70-105 (test svkp=680) CALCIUM (BEAKER) (test 8.9 mg/dL 8.4-10.2 tqjh=349) EGFR (BEAKER) (test 13 mL/min/1.73 sq m ESTIMATED GFR IS NOT naig=4931) ACCURATE CREATININE CLEARANCE IN PREDICTING GLOMERULAR FILTRATION RATE. ESTIMATED GFR IS NOT APPLICABLE FOR DIALYSIS PATIENTS. PROTHROMBIN [id number] 05:57:00 Test Item Value Reference Range Comments PROTIME (BEAKER) (test cvqz=019) 16.0 seconds 11.9-14.2 INR (BEAKER) (test rhzc=513) 1.4 <=5.9 Effective 09/13/2018: PT Reference Range ChangeNew: 11.9-14.2 Previous: 11.7- 14.7RECOMMENDED COUMADIN/WARFARIN INR THERAPY RANGESSTANDARD DOSE: 2.0-3.0 Includes: PROPHYLAXIS for venous thrombosis, systemic embolization; TREATMENT for venous thrombosis and/or pulmonary embolus.HIGH RISK: Target INR is2.5-3.5 for patients wiht mechanical heart valves.CBC W/PLT COUNT & AUTO [id number] 05:55:00 Test Item Value Reference Range Comments WHITE BLOOD CELL COUNT (BEAKER) (test wead=008) 4.4 K/ L 3.5-10.5 RED BLOOD CELL COUNT (BEAKER) (test umge=732) 2.40 M/ L 3.93-5.22 HEMOGLOBIN (BEAKER) (test zpvp=627) 6.8 GM/DL 11.2-15.7 HEMATOCRIT (BEAKER) (test qsha=907) 22.6 % 34.1-44.9 MEAN CORPUSCULAR VOLUME (BEAKER) (test puqc=999) 94.2 fL 79.4-94.8 MEAN CORPUSCULAR HEMOGLOBIN (BEAKER) (test 28.3 pg 25.6-32.2 kdit=188) MEAN CORPUSCULAR HEMOGLOBIN CONC (BEAKER) (test 30.1 GM/DL 32.2-35.5 yoaj=780) RED CELL DISTRIBUTION WIDTH (BEAKER) (test 15.4 % 11.7-14.4 kvfq=665) PLATELET COUNT (BEAKER) (test uivj=548) 172 K/CU MM 150-450 MEAN PLATELET VOLUME (BEAKER) (test fadz=161) 11.6 fL 9.4-12.3 NUCLEATED RED BLOOD CELLS (BEAKER) (test 1 /100 WBC 0-0 vouv=717) NEUTROPHILS RELATIVE PERCENT (BEAKER) (test 73 % osde=316) LYMPHOCYTES RELATIVE PERCENT (BEAKER) (test 13 % vivp=170) MONOCYTES RELATIVE PERCENT (BEAKER) (test 5 % vrjq=632) EOSINOPHILS RELATIVE PERCENT (BEAKER) (test 3 % yotz=528) BASOPHILS RELATIVE PERCENT (BEAKER) (test 1 % hglh=150) NEUTROPHILS ABSOLUTE COUNT (BEAKER) (test 3.18 K/ L 1.56-6.13 eyey=768) LYMPHOCYTES ABSOLUTE COUNT (BEAKER) (test 0.56 K/ L 1.18-3.74 zbao=752) MONOCYTES ABSOLUTE COUNT (BEAKER) (test 0.23 K/ L 0.24-0.36 ofjb=785) EOSINOPHILS ABSOLUTE COUNT (BEAKER) (test 0.14 K/ L 0.04-0.36 tmmm=969) BASOPHILS ABSOLUTE COUNT (BEAKER) (test 0.03 K/ L 0.01-0.08 zdev=214) IMMATURE GRANULOCYTES-RELATIVE PERCENT (BEAKER) 5 % 0-1 (test tcwi=7090) TROPONIN [id number] 01:09:00 Test Item Value Reference Range Comments TROPONIN I (BEAKER) (test hlad=745) 0.03 ng/mL 0.00-0.03 Troponin I (TnI) levels [...] acidosis, acute neurological disease, and persistent tachyarrhythmia.OSMOLALITY, [id number] 22:24:00 Test Item Value Reference Range Comments OSMOLALITY URINE (BEAKER) (test ndti=846) 317 mOsm/kg 40-1,400 HEMOGLOBIN [id number] 22:20:00 Test Item Value Reference Range Comments HEMOGLOBIN A1C (BEAKER) (test nmby=237) 7.2 % 4.3-6.1 URINALYSIS W/ [id number] 22:19:00 Test Item Value Reference Range Comments COLOR (BEAKER) (test pebe=421) Light Yellow CLARITY (BEAKER) (test sizy=579) Clear SPECIFIC GRAVITY UA (BEAKER) (test cbsf=955) 1.006 1.001-1.035 PH UA (BEAKER) (test ayyp=370) 5.5 5.0-8.0 PROTEIN UA (BEAKER) (test ouuq=603) 30 mg/dL Negative GLUCOSE UA (BEAKER) (test tofc=479) Negative Negative KETONES UA (BEAKER) (test dbwj=298) Negative Negative BILIRUBIN UA (BEAKER) (test zywa=799) Negative Negative BLOOD UA (BEAKER) (test vfad=134) Negative Negative NITRITE UA (BEAKER) (test wfyn=821) Negative Negative LEUKOCYTE ESTERASE UA (BEAKER) (test xaeb=784) Negative Negative UROBILINOGEN UA (BEAKER) (test otux=847) 0.2 mg/dL 0.2-1.0 RBC UA (BEAKER) (test vptn=388) < /HPF WBC UA (BEAKER) (test qmiw=252) 3 /HPF MUCUS (BEAKER) (test raxk=3370) Rare SQUAMOUS EPITHELIAL (BEAKER) (test jzzx=112) < /HPF SOURCE(BEAKER) (test fagv=1457) POCT-GLUCOSE [id number] 22:09:00 Test Item Value Reference Range Comments POC-GLUCOSE METER (BEAKER) 171 mg/dL 70-110 TESTED AT [facility] [address] [facility] (test cpqy=0926) [facility] [address] PROTEIN, RANDOM [id number] 21:36:00 Test Item Value Reference Range Comments PROTEIN, URINE (BEAKER) (test hcbx=3025) 44 mg/dL 0-14 CHLORIDE, RANDOM [id number] 21:30:00 Test Item Value Reference Range Comments CHLORIDE URINE (BEAKER) (test ddpz=689) 96 meq/L Reference Range: No NormalsCREATININE, RANDOM [id number] 21:09:00 Test Item Value Reference Range Comments CREATININE URINE (BEAKER) (test cmnj=405) 30.6 mg/dL Reference Range: No NormalsSODIUM, RANDOM [id number] 21:09:00 Test Item Value Reference Range Comments SODIUM URINE (BEAKER) (test jazf=343) 90 meq/L Reference Range: No NormalsUREA NITROGEN, RANDOM [id number] 21:09:00 Test Item Value Reference Range Comments UREA NITROGEN URINE (BEAKER) (test sztn=228) 232 mg/dL Reference Range: No NormalsHEPATITIS PANEL, [id number] 20:39:00 Test Item Value Reference Range Comments HEPATITIS A IGM ANTIBODY (BEAKER) (test Nonreactive Nonreactive qogp=907) HEPATITIS B CORE IGM ANTIBODY (BEAKER) (test Nonreactive Nonreactive vpxp=967) HEPATITIS C ANTIBODY (BEAKER) (test gbtg=967) Nonreactive Nonreactive HEPATITIS B SURFACE ANTIGEN (2) (BEAKER) (test Nonreactive Nonreactive tznh=2874) URINALYSIS W/ REFLEX URINE [id number] 20:12:00 Test Item Value Reference Range Comments COLOR (BEAKER) (test lkrf=132) Light Yellow CLARITY (BEAKER) (test nxup=481) Hazy SPECIFIC GRAVITY UA (BEAKER) (test uovf=985) 1.006 1.001-1.035 PH UA (BEAKER) (test wuhe=093) 5.5 5.0-8.0 PROTEIN UA (BEAKER) (test vnut=300) 30 mg/dL Negative GLUCOSE UA (BEAKER) (test fozy=616) Negative Negative KETONES UA (BEAKER) (test mzuq=035) Negative Negative BILIRUBIN UA (BEAKER) (test pirz=157) Negative Negative BLOOD UA (BEAKER) (test dtfr=669) Negative Negative NITRITE UA (BEAKER) (test uvth=176) Negative Negative LEUKOCYTE ESTERASE UA (BEAKER) (test ogxn=604) Trace Negative UROBILINOGEN UA (BEAKER) (test uiar=153) 0.2 mg/dL 0.2-1.0 RBC UA (BEAKER) (test uaod=318) < /HPF WBC UA (BEAKER) (test muww=526) 10 /HPF BACTERIA (BEAKER) (test cnvk=805) Rare MUCUS (BEAKER) (test gkkq=8754) Rare SQUAMOUS EPITHELIAL (BEAKER) (test patd=717) 5 /HPF AMORPHOUS CRYSTALS (BEAKER) (test guid=5418) Rare SOURCE(BEAKER) (test rafz=0015) TROPONIN [id number] 19:15:00 Test Item Value Reference Range Comments TROPONIN I (BEAKER) (test heij=352) 0.03 ng/mL 0.00-0.03 Troponin I (TnI) levels [...] acute neurological disease, and persistent tachyarrhythmia.COMPREHENSIVE METABOLIC [id number] 19:15:00 Test Item Value Reference Range Comments TOTAL PROTEIN (BEAKER) 7.9 gm/dL 6.0-8.3 (test yqoc=936) ALBUMIN (BEAKER) (test 3.7 g/dL 3.5-5.0 oyud=9184) ALKALINE PHOSPHATASE 89 U/L 40-150 (BEAKER) (test sadc=465) BILIRUBIN TOTAL (BEAKER) 0.6 mg/dL 0.2-1.2 (test wwag=068) SODIUM (BEAKER) (test 133 meq/L 136-145 nqur=612) POTASSIUM (BEAKER) (test 4.6 meq/L 3.5-5.1 zjwj=763) CHLORIDE (BEAKER) (test 102 meq/L 98-107 hqjl=713) CO2 (BEAKER) (test 21 meq/L 22-29 idyk=580) BLOOD UREA NITROGEN 63 mg/dL 7-21 (BEAKER) (test djqd=825) CREATININE (BEAKER) (test 3.74 mg/dL 0.57-1.25 mdte=039) GLUCOSE RANDOM (BEAKER) 117 mg/dL 70-105 (test lovr=269) CALCIUM (BEAKER) (test 8.6 mg/dL 8.4-10.2 vaxn=250) AST (SGOT) (BEAKER) (test 1805 U/L 5-34 irpu=790) ALT (SGPT) (BEAKER) (test 1232 U/L 6-55 kxxj=000) EGFR (BEAKER) (test 13 mL/min/1.73 sq m ESTIMATED GFR IS NOT wbeb=9003) ACCURATE CREATININE CLEARANCE IN PREDICTING GLOMERULAR FILTRATION RATE. ESTIMATED GFR IS NOT APPLICABLE FOR DIALYSIS PATIENTS. CREATINE KINASE (CK)2018-10-16 19:13:00 Test Item Value Reference Range Comments CREATINE KINASE TOTAL (BEAKER) (test afdu=907) 439 U/L 29-200 SALICYLATE [id number] 19:11:00 Test Item Value Reference Range Comments SALICYLATE LEVEL (BEAKER) (test pzyb=340) < mg/dL 15.0-30.0 Therapeutic Range: 15.0-30.0 mg/dLToxic: >30.0 mg/dL Lethal: >70.0 mg/dLACETAMINOPHEN [id number] 19:10:00 Test Item Value Reference Range Comments ACETAMINOPHEN LEVEL (BEAKER) (test naim=776) < ug/mL 10.0-30.0 Therapeutic Range: 10.0-30.0 g/mLToxic Levels: >200.0 g/mLPROTHROMBIN [id number] 18:59:00 Test Item Value Reference Range Comments PROTIME (BEAKER) (test yglr=997) 16.7 seconds 11.9-14.2 INR (BEAKER) (test hzxx=190) 1.4 <=5.9 Effective 09/13/2018: PT Reference Range ChangeNew: 11.9-14.2 Previous: 11.7- 14.7RECOMMENDED COUMADIN/WARFARIN INR THERAPY RANGESSTANDARD DOSE: 2.0-3.0 Includes: PROPHYLAXIS for venous thrombosis, systemic embolization; TREATMENT for venous thrombosis and/or pulmonary embolus.HIGH RISK: Target INR is2.5-3.5 for patients wiht mechanical heart valves.CBC W/PLT COUNT & AUTO [id number] 18:52:00 Test Item Value Reference Range Comments WHITE BLOOD CELL COUNT (BEAKER) (test jakn=563) 4.9 K/ L 3.5-10.5 RED BLOOD CELL COUNT (BEAKER) (test nsbm=721) 2.42 M/ L 3.93-5.22 HEMOGLOBIN (BEAKER) (test lxdy=018) 7.2 GM/DL 11.2-15.7 HEMATOCRIT (BEAKER) (test hhpn=713) 22.7 % 34.1-44.9 MEAN CORPUSCULAR VOLUME (BEAKER) (test lpun=628) 93.8 fL 79.4-94.8 MEAN CORPUSCULAR HEMOGLOBIN (BEAKER) (test 29.8 pg 25.6-32.2 osdo=492) MEAN CORPUSCULAR HEMOGLOBIN CONC (BEAKER) (test 31.7 GM/DL 32.2-35.5 mnjk=049) RED CELL DISTRIBUTION WIDTH (BEAKER) (test 15.3 % 11.7-14.4 qulu=842) PLATELET COUNT (BEAKER) (test huqp=056) 166 K/CU MM 150-450 MEAN PLATELET VOLUME (BEAKER) (test digd=415) 11.6 fL 9.4-12.3 NUCLEATED RED BLOOD CELLS (BEAKER) (test 2 /100 WBC 0-0 ymin=148) NEUTROPHILS RELATIVE PERCENT (BEAKER) (test 83 % weos=553) LYMPHOCYTES RELATIVE PERCENT (BEAKER) (test 6 % maij=572) MONOCYTES RELATIVE PERCENT (BEAKER) (test 5 % qfct=547) EOSINOPHILS RELATIVE PERCENT (BEAKER) (test 2 % lavj=907) BASOPHILS RELATIVE PERCENT (BEAKER) (test 0 % pgca=689) NEUTROPHILS ABSOLUTE COUNT (BEAKER) (test 4.02 K/ L 1.56-6.13 infr=722) LYMPHOCYTES ABSOLUTE COUNT (BEAKER) (test 0.28 K/ L 1.18-3.74 yufj=021) MONOCYTES ABSOLUTE COUNT (BEAKER) (test 0.23 K/ L 0.24-0.36 tsft=589) EOSINOPHILS ABSOLUTE COUNT (BEAKER) (test 0.11 K/ L 0.04-0.36 qvzz=510) BASOPHILS ABSOLUTE COUNT (BEAKER) (test 0.01 K/ L 0.01-0.08 tgnv=785) IMMATURE GRANULOCYTES-RELATIVE PERCENT (BEAKER) 5 % 0-1 (test kjkx=0985) GLUCOMETER GLUCOSE- LAB USE [id number] 06:59:00 Test Item Value Reference Range Comments GLUCOMETER (test code=GMG) 219 mg/dL 70-100 DR YORK AWAREMeter ID: [id number]: [id number] LANA HICKEY GLUCOMETER GLUCOSE- LAB USE [id number] 04:45:00 Test Item Value Reference Range Comments GLUCOMETER (test code=GMG) 212 mg/dL 70-100 Meter ID: [id number]: [id number] PINEDA CAN
--- NOTE | 2019-06-26 14:45 | RAD REPORT ---
EXAM DESCRIPTION: Cece Single View06/26/2019 2:35 pm CLINICAL HISTORY: Shortness of breath COMPARISON: 2019 FINDINGS: The lungs appear clear of acute infiltrate. The heart is normal size IMPRESSION: No acute abnormalities displayed
[2019-06-26 14:58] LABS: ALT/SGPT 16 U/L (12-78); AST/SGOT 12 U/L (15-37); Absolute Lymphocytes (CBC) 0.9 K/uL (0.7-4.9); Albumin 3.4 g/dL (3.4-5.0); Alkaline Phosphatase 40 U/L (45-117); BUN Blood Urea Nitrogen 67 mg/dL (7-18); Basophils % 0.5 % (0-1.3); Bicarbonate 27 mmol/L (21-32); Bilirubin Direct 0.1 mg/dL (0-0.2); Bilirubin Total 0.3 mg/dL (0.2-1.0); Glucose Level 182 mg/dL (74-106); Hematocrit 23.7 % (36.0-45.0); Lymphocytes % 21.6 % (15.3-44.8); MPV 9.5 fL (7.6-11.3); Magnesium 1.6 mg/dL (1.8-2.4); NT PRO-BNP 1240 pg/mL (<125); Potassium 4.9 mmol/L (3.5-5.1); Protein, Total 8.3 g/dL (6.4-8.2); Protime INR 0.97; RBC Red Blood Cell Count 2.63 M/uL (3.86-4.86); Sodium Level 138 mmol/L (136-145); Troponin (Emerg Dept Use Only) < 0.02 ng/mL (0.0-0.045)
--- NOTE | 2019-06-26 15:29 | EKG ---
Test Date: 2019-06-26 Test Time: 14:41:36 [employer] Wheel Worker: RACHAEL MEASUREMENT RESULTS: Intervals: Rate: 78 VT: 160 QRSD: 140 QT: 424 QTc: 483 [place]: P: 49 VT: 160 QRS: -68 T: 43 INTERPRETIVE STATEMENTS: Normal sinus rhythm Right bundle branch block Left anterior fascicular block Bifascicular block Abnormal ECG Compared to ECG 12/22/2018 16:19:00 No significant changes Electronically Signed On 06-26-19 15:28:32 CDT by Ankit Simmons
[2019-06-26] MEDS ORDERED: MAGNESIUM SULFATE 1 gm IVPB 1 GM/100 ML BAG IV ONE (15:46)
[2019-06-26] MEDS ORDERED: FUROSEMIDE 40 MG/4 ML VIAL ONE (15:46)
--- NOTE | 2019-06-26 15:49 | ER ---
Nurse's Notes [facility] Name: Emily Barbour Age: 48 yrs Sex: Female : 1970 Arrival Date: 06/26/2019 Time: 13:55 Bed 26 Private MD: Jean-Paul Cameron Diagnosis: Acute kidney failure;Anemia, unspecified;Edema, unspecified;Essential (primary) hypertension;Unspecified combined systolic (congestive) and diastolic (congestive) heart failure;Hypomagnesemia;Type 1 diabetes mellitus Presentation: 06/25 14:01 Chief complaint: Patient states: difficulty breathing since Tuesday and progressively dm5 getting worse. HX of Chronic Renal disease that usually "presents like CHF". Pt is wheezing, feels fatigued, "its like walking through quick sand". Coronavirus screen: The patient has NOT traveled to a country currently being monitored by the CDC within the last 14 days. The patient has NOT had contact with any known and/or suspected case of coronavirus. Proceed with normal triage procedures. Ebola Screen: Patient negative for fever greater than or equal to 101.5 degrees Fahrenheit, and additional compatible Ebola Virus Disease symptoms Patient denies exposure to infectious person. Patient denies travel to an Ebola-affected area in the 21 days before illness onset. No symptoms or risks identified at this time. Initial Sepsis Screen: Does the patient meet any 2 criteria? No. Patient's initial sepsis screen is negative. Does the patient have a suspected source of infection? No. Patient's initial sepsis screen is negative. Risk Assessment: Do you want to hurt yourself or someone else? Patient reports no desire to harm self or others. 14:01 Method Of Arrival: Ambulatory dm5 14:01 Acuity: SAL[place] 3 dm5 16:20 Onset of symptoms was June 22, 2019. 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 - Family history:: not pertinent. - Social history:: Patient/guardian denies using alcohol, street drugs, tobacco products, Smoking status: Patient denies any tobacco usage or history of. Screenin:16 Abuse screen: Denies threats or abuse. Nutritional screening: No deficits noted. ll1 Tuberculosis screening: No symptoms or risk factors identified. Fall Risk None identified. Total Ruano Fall Scale indicates No Risk (0-24 pts). Assessment: 14:20 General: Appears in no apparent distress. Behavior is calm, cooperative. ll1 15:20 Reassessment: Patient appears in no apparent distress at this time. No changes from ll1 previously documented assessment. Patient and/or family updated on plan of care and expected duration. Pain level reassessed. Patient is alert, oriented x 3, equal unlabored respirations, skin warm/dry/pink. 16:14 General: Appears in no apparent distress. Behavior is calm, cooperative. Pain: Denies ll1 pain. Cardiovascular: Reports shortness of breath, swelling to lower extremities Heart tones S1 S2 Capillary refill < 3 seconds Clubbing of nail beds is absent JVD is absent Patient's skin is warm and dry. Pulses are 2+ in right radial artery, right dorsalis pedis artery, left radial artery and left dorsalis pedis artery Rhythm is regular. Respiratory: Reports shortness of breath on exertion with laying flat Airway is patent Trachea midline Respiratory effort is even, unlabored, Respiratory pattern is regular, Breath sounds are coarse bilaterally. Onset: The symptoms/episode began/occurred the patient has mild shortness of breath. GI: No deficits noted. 17:15 Reassessment: No changes from previously documented assessment. Patient and/or family ll1 updated on plan of care and expected duration. Pain level reassessed. Patient is alert, oriented x 3, equal unlabored respirations, skin warm/dry/pink. 18:15 Reassessment: No changes from previously documented assessment. Patient and/or family ll1 updated on plan of care and expected duration. Pain level reassessed. Patient is alert, oriented x 3, equal unlabored respirations, skin warm/dry/pink. 19:15 Reassessment: No changes from previously documented assessment. Patient and/or family ll1 updated on plan of care and expected duration. Pain level reassessed. Patient is alert, oriented x 3, equal unlabored respirations, skin warm/dry/pink. 20:15 Reassessment: No changes from previously documented assessment. Patient and/or family ll1 updated on plan of care and expected duration. Pain level reassessed. Patient is alert, oriented x 3, equal unlabored respirations, skin warm/dry/pink. Vital Signs: 14:01 BP 159 / 79; Pulse 84; Resp 20; Temp 97.9(TE); Pulse Ox 100% on R/A; Weight 104.33 kg; dm5 Height 5 ft. 5 in. (165.10 cm); Pain 0/10; 16:08 BP 142 / 68; Pulse 79; Resp 18; Pulse Ox 98% ; ll1 17:15 BP 129 / 65; Pulse 76; Resp 18; Pulse Ox 97% ; ll1 18:00 BP 143 / 72; Pulse 74; Resp 18; Pulse Ox 98% ; ll1 19:00 BP 127 / 70; Pulse 79; Resp 18; Pulse Ox 99% ; ll1 19:00 BP 130 / 73; Pulse 79; Resp 18; Temp 98.0; Pulse Ox 100% ; ll1 20:26 BP 123 / 75; Pulse 80; Resp 18; Pulse Ox 96% ; ll1 14:01 Body Mass Index 38.27 (104.33 kg, 165.10 cm) dm5 14:01 pt reports weighing 210; 2 weeks ago dm5 ED Course: 13:55 Patient arrived in ED. ag5 13:55 Jean-Paul Cameron DO is Private Physician. ag5 14:04 Triage completed. dm5 14:05 Tammy Beltran, RN is Primary Nurse. ll1 14:10 Darrick Rey MD is Attending Physician. elaina 14:27 Initial lab(s) drawn, by ak, sent to lab. Inserted saline lock: 20 gauge in right jp3 antecubital area, using aseptic technique. Blood collected. Patient maintains SpO2 saturation greater than 95% on room air. 14:28 Placed in gown. Bed in low position. Call light in reach. Side rails up X 1. Verbal jp3 reassurance given. Pulse ox on. NIBP on. 14:39 XRAY Chest (1 view) In Process Unspecified. EDMS 14:41 EKG done, by fire protection engineering technician. reviewed by Darrick Rey MD. at1 15:45 Cathy Jose MD is Hospitalizing Provider. elaina 16:16 Arm band placed on Patient placed in an exam room. ll1 20:23 Patient admitted, IV remains in place. ll1 20:25 No provider procedures requiring assistance completed. ll1 Administered Medications: Discontinued: NS 0.9% 1000 ml IV at 125 ml/hr continuous 14:28 Drug: NS 0.9% 1000 ml Route: IV; Rate: 125 ml/hr; Site: right antecubital; ll1 16:21 Follow up: Response: No adverse reaction ll1 20:26 Follow up: IV Status: Completed infusion ll1 15:55 Drug: Magnesium Sulfate 1 grams Route: IVPB; Infused Over: 1 hrs; Site: right ll1 antecubital; 16:57 Follow up: Response: No adverse reaction; IV Status: Completed infusion ll1 15:55 Drug: Lasix 40 mg Route: IVP; Site: right antecubital; ll1 16:57 Follow up: Response: No adverse reaction; RASS: Alert and Calm (0) ll1 Outcome: 15:48 Decision to Hospitalize by Provider. elaina 20:24 Admitted to Med/surg accompanied by tech, room 425, Report called to Rachel Hollins ll1 20:24 Condition: stable 20:24 Instructed on the need for admit. 20:57 Patient left the ED. ll1 Signatures: Dispatcher [employer] EDMS Jalyn Mares, RN RN Darrick Guallpa MD MD cha Gonzales, Amanda, sccm administrator EKG Tat1 Allan Logan jp3 Mena Plunkett Lynsay, RN RN ll1 Corrections: (The following items were deleted from the chart) 16:18 14:05 Allergies: metformin; dm5 ll1 16:18 14:05 Allergies: Tradjenta; dm5 ll1 16:18 14:05 Allergies: Benadryl; dm5 ll1 16:18 14:05 PMHx: Anemia; dm5 ll1 16:18 14:05 PMHx: Diabetes - IDDM; dm5 ll1 16:18 14:05 PMHx: High Cholesterol; dm5 ll1 16:18 14:05 PMHx: Hypertension; dm5 ll1 16:18 14:05 PMHx: Renal Disease; dm5 ll1 16:18 14:05 PMHx: Tendonitis in Elbows; dm5 ll1 20:22 16:18 Allergies: metformin; ll1 ll1 20: 16:18 Allergies: Tradjenta; ll1 ll1 20: 16:18 Allergies: Benadryl; ll1 ll1 20: 16:18 PMHx: Anemia; ll1 ll1 20: 16:18 PMHx: Diabetes - IDDM; ll1 ll1 20: 16:18 PMHx: High Cholesterol; ll1 ll1 20: 16:18 PMHx: Hypertension; ll1 ll1 20: 16:18 PMHx: Renal Disease; ll1 ll1 20: 16:18 PMHx: Tendonitis in Elbows; ll1 ll1 20:24 20:23 Discharged to home ambulatory, ll1 ll1 20:24 20:23 Condition: good ll1 ll1 20: 20:23 Discharge instructions given to patient, family, Instructed on discharge ll1 instructions, follow up and referral plans. wound care, Demonstrated understanding of instructions, follow-up care, medications, wound care, Prescriptions given X 1, ll1 : 20:24 Admitted to Med/surg accompanied by tech, room 425, 1 ll1
--- NOTE | 2019-06-26 15:49 | EDPHYS ---
Physician Documentation [facility] Name: Emily Barbour Age: 48 yrs Sex: Female : 1970 Arrival Date: 06/26/2019 Time: 13:55 Bed 26 Private MD: Jean-Paul Cameron ED Physician Darrick Rey HPI: 06/25 15:34 This 48 yrs old Female presents to ER via Ambulatory with complaints of elaina Shortness Of Breath. 15:34 The patient has shortness of breath at rest, with light activity. Onset: The elaina symptoms/episode began/occurred 3 day(s) ago. Duration: The symptoms are continuous, and are steadily getting worse. The patient's shortness of breath is aggravated by exertion, light activity, supine position. Associated signs and symptoms: The patient has no apparent associated signs or symptoms. Severity of symptoms: At their worst the symptoms were mild moderate in the emergency department the symptoms are unchanged. The patient has not experienced similar symptoms in the past. 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 - Family history:: not pertinent. - Social history:: Patient/guardian denies using alcohol, street drugs, tobacco products, Smoking status: Patient denies any tobacco usage or history of. ROS: 15:34 Constitutional: Negative for fever, chills, and weight loss, Eyes: Negative for injury, elaina pain, redness, and discharge, ENT: Negative for injury, pain, and discharge, Neck: Negative for injury, pain, and swelling, Cardiovascular: Negative for chest pain, palpitations, and edema, Abdomen/GI: Negative for abdominal pain, nausea, vomiting, diarrhea, and constipation, Back: Negative for injury and pain, : Negative for injury, bleeding, discharge, and swelling, Skin: Negative for injury, rash, and discoloration, Neuro: Negative for headache, weakness, numbness, tingling, and seizure, Psych: Negative for depression, anxiety, suicide ideation, homicidal ideation, and hallucinations, Allergy/Immunology: Negative for hives, rash, and allergies, Endocrine: Negative for neck swelling, polydipsia, polyuria, polyphagia, and marked weight changes. 15:34 Respiratory: Positive for cough, orthopnea. 15:34 MS/extremity: Positive for swelling. Exam: 15:34 Constitutional: This is a well developed, well nourished patient who is awake, alert, elaina and in no acute distress. Head/Face: Normocephalic, atraumatic. Eyes: Pupils equal round and reactive to light, extra-ocular motions intact. Lids and lashes normal. Conjunctiva and sclera are non-icteric and not injected. Cornea within normal limits. Periorbital areas with no swelling, redness, or edema. ENT: Nares patent. No nasal discharge, no septal abnormalities noted. Tympanic membranes are normal and external auditory canals are clear. Oropharynx with no redness, swelling, or masses, exudates, or evidence of obstruction, uvula midline. Mucous membranes moist. Neck: Trachea midline, no thyromegaly or masses palpated, and no cervical lymphadenopathy. Supple, full range of motion without nuchal rigidity, or vertebral point tenderness. No Meningismus. Chest/axilla: Normal chest wall appearance and motion. Nontender with no deformity. No lesions are appreciated. Cardiovascular: Regular rate and rhythm with a normal S1 and S2. No gallops, murmurs, or rubs. Normal PMI, no JVD. No pulse deficits. Respiratory: Lungs have equal breath sounds bilaterally, clear to auscultation and percussion. No rales, rhonchi or wheezes noted. No increased work of breathing, no retractions or nasal flaring. Abdomen/GI: Soft, non-tender, with normal bowel sounds. No distension or tympany. No guarding or rebound. No evidence of tenderness throughout. Back: No spinal tenderness. No costovertebral tenderness. Full range of motion. Female : Normal external genitalia. Skin: Warm, dry with normal turgor. Normal color with no rashes, no lesions, and no evidence of cellulitis. Neuro: Awake and alert, GCS 15, oriented to person, place, time, and situation. Cranial nerves II-XII grossly intact. Motor strength 5/5 in all extremities. Sensory grossly intact. Cerebellar exam normal. Normal gait. Psych: Awake, alert, with orientation to person, place and time. Behavior, mood, and affect are within normal limits. 15:34 Musculoskeletal/extremity: ROM: no acute changes, intact in all extremities, Circulation is intact in all extremities. Compartment Syndrome exam of affected extremity: is normal. DVT Exam: no pain, no tenderness, negative Homans' sign noted on exam, no appreciated bluish discoloration, no erythema, no increased warmth, swelling. Vital Signs: 14:01 BP 159 / 79; Pulse 84; Resp 20; Temp 97.9(TE); Pulse Ox 100% on R/A; Weight 104.33 kg; dm5 Height 5 ft. 5 in. (165.10 cm); Pain 0/10; 16:08 BP 142 / 68; Pulse 79; Resp 18; Pulse Ox 98% ; ll1 17:15 BP 129 / 65; Pulse 76; Resp 18; Pulse Ox 97% ; ll1 18:00 BP 143 / 72; Pulse 74; Resp 18; Pulse Ox 98% ; ll1 19:00 BP 127 / 70; Pulse 79; Resp 18; Pulse Ox 99% ; ll1 19:00 BP 130 / 73; Pulse 79; Resp 18; Temp 98.0; Pulse Ox 100% ; ll1 20:26 BP 123 / 75; Pulse 80; Resp 18; Pulse Ox 96% ; ll1 14:01 Body Mass Index 38.27 (104.33 kg, 165.10 cm) dm5 14:01 pt reports weighing 210; 2 weeks ago dm5 MDM: 14:10 Patient medically screened. [facility] 15:37 Data reviewed: vital signs, nurses notes, lab test result(s), CBC, EKG, radiologic elaina studies, plain films. 06/25 14:11 Order name: Basic Metabolic Panel; Complete Time: 15:13 elaina 06/25 14:11 Order name: CBC with Diff; Complete Time: 15:13 [facility] 06/25 14:11 Order name: LFT's; Complete Time: 15:13 elaina 06/25 14:11 Order name: Magnesium; Complete Time: 15:13 elaina 06/25 14:11 Order name: NT PRO-BNP; Complete Time: 15:13 [facility] 06/25 14:11 Order name: PT-INR; Complete Time: 15:13 [facility] 06/25 14:11 Order name: Troponin (emerg Dept Use Only); Complete Time: 15:13 [facility] 06/25 14:11 Order name: XRAY Chest (1 view); Complete Time: 15:13 [facility] 06/25 14:11 Order name: Urine Culture [facility] 06/25 15:08 Order name: Type And Screen [facility] 06/25 15:57 Order name: Bb Add On ss 06/25 16:07 Order name: Urine Dipstick--Ancillary (enter results) 06/25 14:11 Order name: EKG; Complete Time: 14:12 [facility] 06/25 14:11 Order name: Cardiac monitoring; Complete Time: 14:28 [facility] 06/25 14:11 Order name: EKG - Nurse/Tech; Complete Time: 14:28 [facility] 06/25 14:11 Order name: IV Saline Lock; Complete Time: 14:24 [facility] 06/25 14:11 Order name: Labs collected and sent; Complete Time: 14:24 [facility] 06/25 14:11 Order name: O2 Per Protocol; Complete Time: 14:28 [facility] 06/25 14:11 Order name: O2 Sat Monitoring; Complete Time: 14:28 [facility] 06/25 15:34 Order name: Transfuse [facility] 06/25 17:46 Order name: Diet 2 Gm Sodium; Complete Time: 17:47 bd Administered Medications: Discontinued: NS 0.9% 1000 ml IV at 125 ml/hr continuous 14:28 Drug: NS 0.9% 1000 ml Route: IV; Rate: 125 ml/hr; Site: right antecubital; 1 16:21 Follow up: Response: No adverse reaction ll1 20:26 Follow up: IV Status: Completed infusion ll1 15:55 Drug: Magnesium Sulfate 1 grams Route: IVPB; Infused Over: 1 hrs; Site: right ll1 antecubital; 16:57 Follow up: Response: No adverse reaction; IV Status: Completed infusion ll1 15:55 Drug: Lasix 40 mg Route: IVP; Site: right antecubital; ll1 16:57 Follow up: Response: No adverse reaction; RASS: Alert and Calm (0) ll1 Disposition: 06/26/19 15:48 Hospitalization ordered by Cathy Jose for Inpatient Admission. Preliminary diagnosis are Acute kidney failure, Anemia, unspecified, Edema, unspecified, Essential (primary) hypertension, Unspecified combined systolic (congestive) and diastolic (congestive) heart failure, Hypomagnesemia, Type 1 diabetes mellitus. - Bed requested for Telemetry/MedSurg (Inpatient). - Status is Inpatient Admission. ll1 - Condition is Fair. - Problem is new. - Symptoms have improved. Signatures: Dispatcher [employer] EDMS Jalyn Mares RN RN dm5 Woody, Diana, RN RN dw Anderson, Corey, MD MD cha Lewis, Lynsay, RN RN ll1 Corrections: (The following items were deleted from the chart) 15:48 15:48 Hospitalization Ordered by Cathy Jose MD for Inpatient Admission. Preliminary elaina diagnosis is Acute kidney failure; Anemia, unspecified; Edema, unspecified; Essential (primary) hypertension; Unspecified combined systolic (congestive) and diastolic (congestive) heart failure. Bed requested for Telemetry/MedSurg (Inpatient). Status is Inpatient Admission. Condition is Fair. Problem is new. Symptoms have improved. elaina 15:48 15:48 06/26/2019 15:48 Hospitalization Ordered by Cathy Jose MD for Inpatient elaina Admission. Preliminary diagnosis is Acute kidney failure; Anemia, unspecified; Edema, unspecified; Essential (primary) hypertension; Unspecified combined systolic (congestive) and diastolic (congestive) heart failure; Hypomagnesemia. Bed requested for Telemetry/MedSurg (Inpatient). Status is Inpatient Admission. Condition is Fair. Problem is new. Symptoms have improved. elaina 16:18 14:05 Allergies: metformin; dm5 ll1 16:18 14:05 Allergies: Tradjenta; dm5 ll1 16:18 14:05 Allergies: Benadryl; dm5 ll1 16:18 14:05 PMHx: Anemia; dm5 ll1 16:18 14:05 PMHx: Diabetes - IDDM; dm5 ll1 16:18 14:05 PMHx: High Cholesterol; dm5 ll1 16:18 14:05 PMHx: Hypertension; dm5 ll1 16:18 14:05 PMHx: Renal Disease; dm5 ll1 16:18 14:05 PMHx: Tendonitis in Elbows; dm5 ll1 19:22 15:48 06/26/2019 15:48 Hospitalization Ordered by Cathy Jose MD for Inpatient dw Admission. Preliminary diagnosis is Acute kidney failure; Anemia, unspecified; Edema, unspecified; Essential (primary) hypertension; Unspecified combined systolic (congestive) and diastolic (congestive) heart failure; Hypomagnesemia; Type 1 diabetes mellitus. Bed requested for Telemetry/MedSurg (Inpatient). Status is Inpatient Admission. Condition is Fair. Problem is new. Symptoms have improved. elaina 20:22 16:18 Allergies: metformin; ll1 ll1 20:22 16:18 Allergies: Tradjenta; ll1 ll1 20:22 16:18 Allergies: Benadryl; ll1 ll1 20:22 16:18 PMHx: Anemia; ll1 ll1 20:22 16:18 PMHx: Diabetes - IDDM; ll1 ll1 20:22 16:18 PMHx: High Cholesterol; ll1 ll1 20:22 16:18 PMHx: Hypertension; ll1 ll1 20:22 16:18 PMHx: Renal Disease; ll1 ll1 20:22 16:18 PMHx: Tendonitis in Elbows; ll1 ll1 20:57 19:22 06/26/2019 15:48 Hospitalization Ordered by Cathy Jose MD for Inpatient ll1 Admission. Preliminary diagnosis is Acute kidney failure; Anemia, unspecified; Edema, unspecified; Essential (primary) hypertension; Unspecified combined systolic (congestive) and diastolic (congestive) heart failure; Hypomagnesemia; Type 1 diabetes mellitus. Bed requested for Telemetry/MedSurg (Inpatient). Status is Inpatient Admission. Condition is Fair. Problem is new. Symptoms have improved. dw
[2019-06-26 20:21] LABS: Urine Blood TRACE (NEG); Urine Glucose TRACE (NEG); Urine Protein 1+ (NEG); Urine Specific Gravity 1.015 (1.005-1.030); Urine pH 6.5 (5.0-7.0)
[2019-06-26] MEDS ORDERED: ACETAMINOPHEN 500 MG TAB PO PRN (20:54)
[2019-06-26] MEDS ORDERED: ONDANSETRON 4 MG/2 ML VIAL IV PRN (20:54)
[2019-06-26] MEDS: INSULIN -REGULAR HUMAN 50 UNIT/0.5 ML ML SQ SCH ×2 (20:54→21:00)
[2019-06-26] MEDS: FUROSEMIDE 40 MG/4 ML VIAL IV SCH (21:55)
[2019-06-26] MEDS ORDERED: DIPHENHYDRAMINE 50 MG/ML VIAL IV ONE (22:14)
[2019-06-26] MEDS ORDERED: ACETAMINOPHEN 325 MG TABLET PO ONE (22:14)
[2019-06-26] MEDS ORDERED: NA CHLORIDE 0.9% 250 ML ONE (22:38)
[2019-06-26 23:36] VITALS: BMI 37.1
--- NOTE | 2019-06-27 02:38 | HP ---
Date of Admission: 06/26/2019 Primary Care Physician: Dr. Cameron. Code Status: Full. Chief Complaint: Peripheral edema. History Of Present Illness: Patient is a 48-year-old female with past medical history of hypertensio n, diabetes, chronic kidney disease stage 4, who is coming in with worsening edema of her lower extre mities. Patient was in her usual state of health until 3 days prior to admission when she started no ticing worsening swelling of her lower extremities. She did double up on her Lasix dose, however, di d not has much improvement and did not report any significant shortness of breath, contacted her neph rologist and was directed to the ED. The patient's symptoms are constant, moderate, progressively wo rsening. In the ER, her workup revealed creatinine of 4.24. BNP of 1240. Hemoglobin was slightly l ow at 7.9. She does have history of anemia. Her baseline is around 9. The patient has required tra nsfusions in the past. Past Medical History: Hypertension, diabetes, chronic kidney disease stage 4, hyperlipidemia, restle ss legs syndrome, obstructive sleep apnea on CPAP, and hypothyroidism. Past Surgical History: Cholecystectomy, appendectomy, hysterectomy, breast reduction and neck and fo ot surgery. Allergies: TO BENADRYL, METFORMIN, LINAGLIPTIN, AND TRADJENTA. Medications: List reviewed as per medication reconciliation list. Family History: No history of end-stage renal disease in the family. Social History: Patient quit smoking about 6 years ago. No illicit drug use or alcohol use. Indepe ndent in her activities of daily living. Review of Systems: Ten-point system reviewed, negative except as per HPI. Physical Examination: Vital Signs: Blood pressure 159/79, pulse 84, respirations 20, temperature 97.9, O2 100% on room air . BMI 38. HEENT: Normocephalic, atraumatic. PERRLA, EOMI. Moist mucous membranes. Oropharynx is clear. Conj unctivae anicteric. Neck: Supple. No JVD. Trachea midline. CV: S1, S2. Regular rate and rhythm. Peripheral pulses present. Respiratory: Somewhat diminished breath sounds. No wheezing or stridor. No use of accessory muscle s. Gastrointestinal: Abdomen is soft, nontender, nondistended. Positive bowel sounds. No guarding or rigidity. Extremities: No clubbing, cyanosis. Patient has peripheral edema 1+. Neuro: Cranial nerves 2 through 12 intact grossly. No focal neurological deficits. Speech is philip l. Sensation intact to light touch. Skin: No rashes. Normal skin turgor. Psych: Mood is okay. Affect is full. Insight and judgment are good. Laboratory Data: WBC 4.1, H and H 7.9 and 23.7, platelets 152. INR 0.97. Sodium 138, potassium 4.9 , chloride 105, CO2 of 27, BUN 67, creatinine 4.24, glucose 182, calcium 9, magnesium 1.6. AST 12, A LT 16, alkaline phosphatase 40. Troponin less than 0.02. BNP 1240, albumin 3.4. UA is pending. Assessment And Plan: 48-year-old female with 1.Shortness of breath likely secondary to fluid overload and worsening kidney function. 2.Worsening peripheral edema secondary to chronic kidney disease. We will start on IV diuretics. W e will obtain echocardiogram. Monitor I's and O's. Free fluid restriction. 3.Acute on chronic anemia secondary to anemia of chronic disease. Hemoglobin is 7.9. We will reche ck H and H this evening and then transfuse for hemoglobin of less than 7. 4.Chronic kidney disease stage 4. We will consult Dr. Cameron. We will monitor creatinine level an d avoid NSAIDs. 5.Mixed hyperlipidemia. Continue statin. 6.Diabetes mellitus type 2 with chronic kidney disease. We will continue with sliding scale insulin . Monitor blood glucose levels. 7.Essential hypertension, stable. Resume home medications. 8.Restless legs syndrome. 9.Obstructive sleep apnea. We will continue the patient's personal CPAP at night. 10.Hypothyroidism. We will continue with Synthroid. 11.Obesity. 12.Deep venous thrombosis prophylaxis with Lovenox renally dosed. PLAN: Admit patient to Med-Surg, place as inpatient. Length of stay greater than 2 midnights. VIGNESH Voice ID: [id number]
[2019-06-27 06:16] LABS: Absolute Lymphocytes (CBC) 1.2 K/uL (0.7-4.9); Basophils % 0.6 % (0-1.3); Hematocrit 25.8 % (36.0-45.0); Lymphocytes % 29.3 % (15.3-44.8); MPV 9.3 fL (7.6-11.3); RBC Red Blood Cell Count 2.88 M/uL (3.86-4.86)
[2019-06-27 06:47] LABS: Albumin 3.3 g/dL (3.4-5.0); Bilirubin Total 0.4 mg/dL (0.2-1.0); Potassium 4.6 mmol/L (3.5-5.1); Protein, Total 8.1 g/dL (6.4-8.2)
[2019-06-27] MEDS: INSULIN -REGULAR HUMAN 50 UNIT/0.5 ML ML SQ SCH ×4 (07:30→20:50)
[2019-06-27] MEDS: FUROSEMIDE 40 MG/4 ML VIAL IV SCH ×2 (08:58→17:30)
--- NOTE | 2019-06-27 12:23 | P.PN ---
Subjective Date of Service: 06/27/19 Chief Complaint: Shortness of breath and leg edema Subjective: Improving Patient states her leg swellings have significantly improved. She reports mild shortness of breath with exertion. Stable blood pressure. Physical Examination - Vital Signs Temperature: 98.6 F Blood Pressure: 129/60 Pulse: 73 Respirations: 18 Pulse Ox (%): 96 - Physical Exam General: Alert, In no apparent distress, Oriented x3 HEENT: Normocephalic, Mucous membr. moist/pink, Sclerae nonicteric Neck: Supple, JVD not distended Respiratory: Clear to auscultation bilaterally, Normal air movement Cardiovascular: Normal pulses, Regular rate/rhythm, Normal S1 S2, Edema ( Bilateral lower extremities) Capillary refill: <2 Seconds Gastrointestinal: Normal bowel sounds, Soft and benign, Non-distended, No tenderness Musculoskeletal: No erythema Integumentary: No rashes Neurological: Normal speech, Normal strength at 5/5 x4 extr - Studies Laboratory Data (last 24 hrs) 06/26/19 14:25: PT 11.5, INR 0.97 06/26/19 14:25: WBC 4.1 L, Hgb 7.9 L*, Hct 23.7 L, Plt Count 152 06/26/19 14:25: Sodium 138, Potassium 4.9, BUN 67 H, Creatinine 4.24 H, Glucose 182 H, Magnesium 1.6 L, Total Bilirubin 0.3, AST 12 L, ALT 16, Alkaline Phosphatase 40 L Assessment And Plan - Current Problems (Diagnosis) (1) Volume overload Current Visit: Yes Status: Acute (2) Acute kidney injury superimposed on CKD Onset Date: 09/05/17 Current Visit: No Status: Acute (3) Diabetes mellitus Onset Date: 07/20/17 Current Visit: No Status: Chronic Qualifiers: (4) Obstructive sleep apnea Current Visit: Yes Status: Chronic - Plan Patient's volume overload likely related to his kidney disease. She reports compliance with the CPAP. Continue Lasix therapy, monitor intake and output. Nephrology to evaluate. Monitor renal panel on the Lasix therapy. Echocardiogram is pending. Blood glucose management with insulin sliding scale and Lantus.
[2019-06-27] MEDS ORDERED: D50W 25 GM/50 ML SYRINGE IV PRN (12:24)
[2019-06-27] MEDS ORDERED: GLUCAGON 1 MG/VIAL IM PRN (12:24)
--- NOTE | 2019-06-27 12:28 | ECHO ---
HEIGHT: 5 ft 5 in WEIGHT: 223 lb 6.4 oz DATE OF STUDY: 06/27/[address]: Cathy Jose MD 2-DIMENSIONAL: YES M.MODE: YES DOPPLER: YES COLOR FLOW: YES TDS: PORTABLE: DEFINITY: BUBBLE STUDY: DIAGNOSIS: CONGESTIVE HEART FAILURE CARDIAC HISTORY: CATHERIZATION: NO SURGERY: NO PROSTHETIC VALVE: NO PACEMAKER: NO MEASUREMENTS (cm) DIASTOLIC (NORMALS) SYSTOLIC (NORMALS) IVSd 1.0 (0.6-1.2) LA Diam 3.9 (1.9-4.0) LVEF 74% LVIDd 4.2 (3.5-5.7) LVIDs 2.4 (2.0-3.5) %FS 43% LVPWd 1.0 (0.6-1.2) Ao Diam 2.9 (2.0-3.7) 2 DIMENSIONAL ASSESSMENT: RIGHT ATRIUM: NORMAL LEFT ATRIUM: NORMAL RIGHT VENTRICLE: NORMAL LEFT VENTRICLE: NORMAL TRICUSPID VALVE: NORMAL MITRAL VALVE: NORMAL PULMONIC VALVE: NORMAL AORTIC VALVE: NORMAL PERICARDIAL EFFUSION: NONE AORTIC ROOT: NORMAL LEFT VENTRICULAR WALL MOTION: NORMAL DOPPLER/COLOR FLOW: NORMAL COMMENTS: NORMAL 2-DIMENSIONAL ECHOCARDIOGRAM WITH DOPPLER. TECHNOLOGIST: ALIDA SUAREZ
--- NOTE | 2019-06-27 15:07 | P.CNS ---
Date of Consult: 06/27/19 Reason for Consult: OMAR/ CKD Requesting Physician: Cathy Jose Chief Complaint: Shortness of breath and leg edema History of Present Illness: 48 yo WF CKD, HTN, DM presented to the ER with several days of moderate to severe, progressive LE edema in the setting of CKD with associated dyspnea on exertion. Did not improve with an increase in her furosemide. Reports that she is not always compliant with her diet. She is feeling better today with improved edema. Patient is a 48-year-old female with past medical history of hypertension, diabetes, chronic kidney disease stage 4, who is coming in with worsening edema of her lower extremities. Patient was in her usual state of health until 3 days prior to admission when she started noticing worsening swelling of her lower extremities. She did double up on her Lasix dose, however, did not has much improvement and did not report any significant shortness of breath, contacted her hand lens polisher and was directed to the ED. The patient's symptoms are constant, moderate, progressively worsening. In the ER, her workup revealed creatinine of 4.24. BNP of 1240. Hemoglobin was slightly low at 7.9. She does have history of anemia. Her baseline is around 9. The patient has required transfusions in the past. 15:34 This 48 yrs old Female presents to ER via Ambulatory with complaints of elaina Shortness Of Breath. 15:34 The patient has shortness of breath at rest, with light activity. Onset: The elaina symptoms/episode began/occurred 3 day(s) ago. Duration: The symptoms are continuous, and are steadily getting worse. The patient's shortness of breath is aggravated by exertion, light activity, supine position. Associated signs and symptoms: The patient has no apparent associated signs or symptoms. Severity of symptoms: At their worst the symptoms were mild moderate in the emergency department the symptoms are unchanged. The patient has not experienced similar symptoms in the past. Allergies metformin Allergy (Verified 12/22/18 22:15) Unknown diphenhydramine HCl [From Benadryl] Adverse Reaction (Verified 12/22/18 22:15) Rash linagliptin [From Tradjenta] Adverse Reaction (Verified 12/22/18 22:15) weight loss TRIGENTA Adverse Reaction (Severe, Uncoded 08/22/16 19:57) Nausea/Vomiting Home medications list reviewed: Yes Home Medications: Amitriptyline HCl 100 mg PO BEDTIME 12/23/18 Aspirin 1 tab PO DAILY 12/23/18 Cholecalciferol (Vitamin D3) [Vitamin D3] 1 cap PO BEDTIME 12/23/18 Insulin Lispro [Humalog] 30 unit SQ TIDWM 12/23/18 Levothyroxine [Synthroid*] 1 tab PO DAILY 12/23/18 Magnesium Oxide [Magnesium] 1 tab PO BID 12/23/18 Mirabegron [Myrbetriq] 50 mg PO DAILY 12/23/18 carvediloL [Carvedilol] 1 tab PO BID 12/23/18 Fenofibrate [Tricor*] 1 tab PO BEDTIME #30 tab 12/25/18 Dulaglutide [Trulicity] 1.5 mg SQ SEECOM 03/25/19 Ferrous Sulfate [Feosol] 325 mg PO BEDTIME 06/26/19 Furosemide [Lasix] 40 mg PO DAILY 06/26/19 Insulin Glargine,Hum.rec.anlog [Toujeo Max Solostar] 50 unit SQ DAILY 06/26/19 [place]-3 Fatty Acids/Fish Oil [Fish Oil 1,000 mg Softgel] 1 each PO BID 06/26/19 - Past Medical/Surgical History Diabetic: Yes -: Hypertension -: Hypertriglyceridemia -: Diabetes mellitus type 2 -: Diabetic neuropathy -: Anemia of chronic disease -: Recurrent UTI -: Chronic renal disease, stage IV -: Irritable bowel syndrome-diarrhea -: Osteoarthritis -: Former smoker -: Cholecystectomy -: Appendectomy -: Hysterectomy -: Tubal ligation -: Breast reduction -: Adenoidectomy -: bone spurs removed -: neckm fusion surgery Psychosocial/ Personal History: Patient is for 30 years, she has 3 children, she works at [employer]. - Family History Father Medical History: Stroke, Cancer Brother Medical History: Heart disease Sister Notes: Thyroid Problems Mother Medical History: Heart disease, Diabetes - Social History Smoking Status: Former smoker Alcohol use: Yes CD- Drugs: No Caffeine use: Yes Place of Residence: Home Review of Systems 10-point ROS is otherwise unremarkable General: Weakness, Malaise Respiratory: SOB with Excertion Cardiovascular: Edema Physical Examination Temp Pulse Resp BP Pulse Ox 98.6 F 73 18 129/60 96 06/27/19 12:24 06/27/19 12:24 06/27/19 12:24 06/27/19 12:24 06/27/19 12:24 General: In no apparent distress, Oriented x3, Cooperative HEENT: Atraumatic Neck: Supple Respiratory: Clear to auscultation bilaterally Cardiovascular: No edema, Regular rate/rhythm Gastrointestinal: Soft and benign, Non-distended Musculoskeletal: No clubbing, No contractures Integumentary: No rashes, No cyanosis Neurological: Normal speech Laboratory Data (last 24 hrs) 06/26/19 14:25: WBC 4.1 L, Hgb 7.9 L*, Hct 23.7 L, Plt Count 152 Imagings Data: EXAM DESCRIPTION: Cece Single View06/26/2019 2:35 pm CLINICAL HISTORY: Shortness of breath COMPARISON: 2019 FINDINGS: The lungs appear clear of acute infiltrate. The heart is normal size IMPRESSION: No acute abnormalities displayed Conclusions/Impression: A/ OMAR likely CRS. Hypomagnesemia. CKD IV/ V with proteinuria. DM II with CKD. Diastolic CHF, A/C. HTN with CKD/ CHF. SHREE on CPAP. Anemia in CKD. Iron deficiency. CANDI/ Secondary HyperPTH. P/ Continue current POC and Medications. Continue Lasix. Give Retacrit X1. No NSAIDs. Counseled regarding CKD and the possibility of dialysis in the near future. Counseled regarding a low salt diet. Consider compression stockings at work. AM labs. Daily weight. Thank you kindly for the consultation.
[2019-06-27] MEDS ORDERED: EPOETIN ALFA-EPBX 10,000 UNIT/ML VIAL SQ SCH (16:00)
[2019-06-27] MEDS ORDERED: INSULIN GLARGINE 100 UNITS/ML SQ SCH (21:00)
[2019-06-28 06:07] LABS: Absolute Lymphocytes (CBC) 1.1 K/uL (0.7-4.9); Basophils % 0.7 % (0-1.3); Hematocrit 27.9 % (36.0-45.0); Lymphocytes % 26.5 % (15.3-44.8); MPV 8.9 fL (7.6-11.3); RBC Red Blood Cell Count 3.15 M/uL (3.86-4.86)
[2019-06-28 06:24] LABS: Magnesium 1.7 mg/dL (1.8-2.4); Potassium 4.9 mmol/L (3.5-5.1); Uric Acid 9.8 mg/dL (2.6-6.0)
[2019-06-28] MEDS: INSULIN -REGULAR HUMAN 50 UNIT/0.5 ML ML SQ SCH ×2 (07:30→11:30)
[2019-06-28] MEDS: FUROSEMIDE 40 MG/4 ML VIAL IV SCH (09:49)
[2019-06-28 10:02] VITALS: O2SAT 97
[2019-06-28 12:12] VITALS: BP 126/61; TEMP 98
--- NOTE | 2019-06-28 12:58 | P.DS ---
Admission Date: 06/26/19 Discharge Date: 06/28/19 Disposition: ROUTINE DISCHARGE Reason for Admission: Shortness of breath and leg edema Consultations: Nephrology-Dr. Cameron - Problems (1) Volume overload Current Visit: Yes Status: Acute (2) Acute kidney injury superimposed on CKD Onset Date: 09/05/17 Current Visit: No Status: Acute (3) Diabetes mellitus Onset Date: 07/20/17 Current Visit: No Status: Chronic Qualifiers: (4) Obstructive sleep apnea Current Visit: Yes Status: Chronic Brief History of Present Illness: 48-year-old woman with a history of CKD stage present to the ED with a complaint of progressive worsening bilateral lower extremity swelling which did not respond to her home Lasix therapy. She doubled her Lasix without much response and was therefore directed to the ED by her oil heater installer. Her hemoglobin on arrival was 7.9 compared to baseline of 9. BNP elevated. Patient was admitted for further management of hypervolemia. Hospital Course: Patient admitted the medical floor and treated with IV Lasix. She was also given units of PRBC transfusion increased her hemoglobin to 8.7. Patient was seen and evaluated by her oil heater installer Dr. Cameron. She was also given past Epogen injections for the anemia. Her leg edema has resolved patient mentioned shortness of breath. She is deemed clinically stable for discharge. Patient is discharged with an increase in her home dose Lasix from 40 mg daily to 40 mg twice a day. She will follow with Dr. Cameron next month regarding her renal failure. Vital Signs/Physical Exam: Temp Pulse Resp BP Pulse Ox 98 F 75 20 126/61 98 06/28/19 12:00 06/28/19 12:00 06/28/19 12:00 06/28/19 12:00 06/28/19 12:00 General: Alert, In no apparent distress, Oriented x3 HEENT: Mucous membr. moist/pink, Sclerae nonicteric Neck: JVD not distended Respiratory: Clear to auscultation bilaterally, Normal air movement Cardiovascular: No edema, Regular rate/rhythm, Normal S1 S2 Gastrointestinal: Normal bowel sounds, Soft and benign, Non-distended, No ascites Integumentary: No rashes Neurological: Normal speech, Normal strength at 5/5 x4 extr Laboratory Data at Discharge: WBC 4.3 K/uL (4.3-10.9) 06/28/19 05:39 Hgb 9.3 g/dL (12.0-15.0) L 06/28/19 05:39 Hct 27.9 % (36.0-45.0) L 06/28/19 05:39 Plt Count 174 K/uL (152-406) D 06/28/19 05:39 PT 11.5 SECONDS (9.5-12.5) 06/26/19 14:25 INR 0.97 06/26/19 14:25 Sodium 141 mmol/L (136-145) 06/28/19 05:39 Potassium 4.9 mmol/L (3.5-5.1) 06/28/19 05:39 BUN 72 mg/dL (7-18) H 06/28/19 05:39 Creatinine 4.11 mg/dL (0.55-1.3) H 06/28/19 05:39 Glucose 86 mg/dL (74-106) 06/28/19 05:39 Uric Acid 9.8 mg/dL (2.6-6.0) H 06/28/19 05:39 Phosphorus 6.0 mg/dL (2.5-4.9) H 06/28/19 05:39 Magnesium 1.7 mg/dL (1.8-2.4) L 06/28/19 05:39 Total Bilirubin 0.4 mg/dL (0.2-1.0) 06/27/19 05:48 AST 12 U/L (15-37) L 06/27/19 05:48 ALT 16 U/L (12-78) 06/27/19 05:48 Alkaline Phosphatase 34 U/L (45-117) L 06/27/19 05:48 Home Medications: Amitriptyline HCl 100 mg PO BEDTIME 12/23/18 Aspirin 1 tab PO DAILY 12/23/18 Cholecalciferol (Vitamin D3) [Vitamin D3] 1 cap PO BEDTIME 12/23/18 Insulin Lispro [Humalog] 30 unit SQ TIDWM 12/23/18 Levothyroxine [Synthroid*] 1 tab PO DAILY 12/23/18 Magnesium Oxide [Magnesium] 1 tab PO BID 12/23/18 Mirabegron [Myrbetriq] 50 mg PO DAILY 12/23/18 carvediloL [Carvedilol] 1 tab PO BID 12/23/18 Fenofibrate [Tricor*] 1 tab PO BEDTIME #30 tab 12/25/18 Dulaglutide [Trulicity] 1.5 mg SQ SEECOM 03/25/19 Ferrous Sulfate [Ferrous Sulfate*] 325 mg PO BEDTIME 06/26/19 Insulin Glargine,Hum.rec.anlog [Toujeo Max Solostar] 50 unit SQ DAILY 06/26/19 [place]-3 Fatty Acids/Fish Oil [Fish Oil 1,000 mg Softgel] 1 each PO BID 06/26/19 Furosemide [Lasix*] 40 mg PO BID #60 tab 06/28/19 New Medications: Furosemide [Lasix*] 40 mg PO BID #60 tab Patient Discharge Instructions: Wear compression stockings at work. Diet: Renal Activity: Ad brenden Followup: Jean-Paul Cameron DO [Primary Care Provider] - (July 22, 2019) Time spent managing pt's care (in minutes): 36
--- NOTE | 2019-06-28 19:02 | P.PN ---
Date of Service: 06/28/19 Vital Signs Temp Pulse Resp BP Pulse Ox 98 F 75 20 126/61 98 06/28/19 12:00 06/28/19 12:00 06/28/19 12:00 06/28/19 12:00 06/28/19 12:00 Lab Results (last 24 hrs) 06/26/19 15:45: ABO/Rh A POSITIVE, Solid Phase Ab Screen Negative, Crossmatch See Detail Microbiology Results 06/26/19 15:50 Clean Catch Urine [place] Count - Final >100,000 CFU/ML. 06/26/19 15:50 Clean Catch Urine - Final MIXED PITO. Assessment/ Plan: Nephrology Feeling better today. CPS stable without CP or SOB. No acute events overnight. Vitals, medications, blood work and imaging reviewed in the chart. General: In no apparent distress, Oriented x3, Cooperative HEENT: Atraumatic Neck: Supple Respiratory: Clear to auscultation bilaterally Cardiovascular: No edema, Regular rate/rhythm Gastrointestinal: Soft and benign, Non-distended Musculoskeletal: No clubbing, No contractures Integumentary: No rashes, No cyanosis Neurological: Normal speech Laboratory Data (last 24 hrs) 06/26/19 14:25: WBC 4.1 L, Hgb 7.9 L*, Hct 23.7 L, Plt Count 152 Imagings Data: EXAM DESCRIPTION: Cece Single View06/26/2019 2:35 pm CLINICAL HISTORY: Shortness of breath COMPARISON: 2019 FINDINGS: The lungs appear clear of acute infiltrate. The heart is normal size IMPRESSION: No acute abnormalities displayed Conclusions/Impression: A/ OMAR likely CRS. Hypomagnesemia. CKD IV/ V with proteinuria. DM II with CKD. Diastolic CHF, A/C. HTN with CKD/ CHF. SHREE on CPAP. Anemia in CKD. Iron deficiency. CANDI/ Secondary HyperPTH. P/ Continue current POC and Medications. Continue Lasix. No NSAIDs. Counseled regarding CKD and the possibility of dialysis in the near future. Counseled regarding a low salt diet. Recommend compression stockings at work. AM labs. Daily weight. Case reviewed with Dr. Narayanan.
[2019-07-02 19:55] LABS: HBsAG Nonreactive (Nonreactive)
== END 2019-06-28 13:55 | disposition home or self-care (01) | DRG 683 ==
LOC: ER 13:53 → ERHOLD 16:10 → 2ND 20:23
PROVIDERS: ADMIT Family Medicine; ATTEND Internal Medicine
PROC: 30233N1 Transfusion of Nonautologous Red Blood Cells into Peripheral Vein, Percutaneous Approach (ICD-10-PCS; principal; 2019-06-26)
DX: N17.9 Acute kidney failure, unspecified (principal); I13.0 Hypertensive heart and chronic kidney disease with heart failure and stage 1 through stage 4 chronic kidney disease, or unspecified chronic kidney disease; I50.32 Chronic diastolic (congestive) heart failure; N18.4 Chronic kidney disease, stage 4 (severe); N25.81 Secondary hyperparathyroidism of renal origin; E11.22 Type 2 diabetes mellitus with diabetic chronic kidney disease; E11.40 Type 2 diabetes mellitus with diabetic neuropathy, unspecified; E87.70 Fluid overload, unspecified; D63.8 Anemia in other chronic diseases classified elsewhere; D50.9 Iron deficiency anemia, unspecified; E78.2 Mixed hyperlipidemia; E83.42 Hypomagnesemia; E03.9 Hypothyroidism, unspecified; E78.1 Pure hyperglyceridemia; E66.9 Obesity, unspecified; G25.81 Restless legs syndrome; G47.33 Obstructive sleep apnea (adult) (pediatric); K58.0 Irritable bowel syndrome with diarrhea; Z68.37 Body mass index [BMI] 37.0-37.9, adult; Z99.81 Dependence on supplemental oxygen
CPT/HCPCS: 36415; 36430; 71045; 80048; 80053; 80076; 81003; 82947; 83735; 83880; 84100; 84484; 84550; 85025; 85610; 86317; 86704; 86850; 86900; 86901; 87086; 87088; 87340; 93005; 93306; 94760; 96361; 96365; 96375; 99285; J1940; J3475; J7030; P9016; Q5106

== ENCOUNTER 2019-08-15 13:32 | Emergency (ER) | payer BC ==
--- OUTSIDE RECORDS SUMMARY | 2019-08-15 13:39 | XMS REPORT ---
:1970 Author Organization [facility] t Address [address] [place] [address] Care Team Providers Name Role Phone Farhat PAIGE Unavailable Unavailable DR XIOMARA Unavailable Unavailable Problems This patient has no known problems. Allergies, Adverse Reactions, Alerts This patient has no known allergies or adverse reactions. Medications This patient has no known medications. Encounters Start End Encounter Admission Attending Care Care Encounter Date/Time Date/Time Type Type Clinicians Facility Department ID 2018 2018 Outpatient C XIOMARA [facility] [id number] 736 04:57:00 08:15:00 BERE Results Test Description Test Time Test Comments Text Results Atomic Results Result Comments BONE MARROW EXAM 2018-11-14 14:30:00 Bone Marrow Patho logy Report Case: [id number] Authorizing Provider : Tiff Colmenares MD Collected: 10/20/2018 1030 O rdering Location: [address] Received: 019 1151 Se rvice Pathologist: Damián Mckeon MD Specime ns: A) - Iliac Crest, Left B) - C) - Karyotype is reported to be 46,XX[20].Mutational studies for calreticulin, JAK2, and MPL are reported to be NEGATIVE.See attached sca nned report for further additional details. Addendum electronically signed by Damián Hernandez MD on 11/14/2018 at 2: 30 PMBONE MARROW ASPIRATE, CLOT, AND DECALCIF IED BIOPSY:NORMOCELLULAR (60%) M ARROW WITH TRILINEAGE HEMATOPOIESIS AND MILD ATYPICAL MEGAKARYOCYTIC HYPERPLASIA.N O MORPHOLOGIC OR IMMUNOPHENOTYPIC EVIDENCE OF LYMPHOMA OR ACUTE LEUKEMIA.BLASTS ARE NO T INCREASED.STORAGE IRON IS DE CREASED.SEE DIAGNOSTIC COMMENT. PERIPHER AL BLOOD:NORMOCYTIC ANEMIA.NO C IRCULATING BLASTS. Signing Pathol ogist Direct Phone Line: [phone] tronically signed by Damián Mckeon MD on 10/24/2018 at 4:50 PMThere is no morphologic or immunophenotypic evidence of lymphoma or acute leukemia. This patient has a reported clinical history of anemia a nd hepatosplenomegaly as per e electronic medical records in [facility]. The morphologic finding of the megakaryocyte s is nonspecific and could be reactive howeve r they raise concern for the presence of an evolving myeloid neoplasm. Molecular and cytogenetic studies are currently pendin g, with results to be issued in an addendum report. [id number]; 54395; 13163 x 2; 71358; 883 13, 99853, [id number] Bone marrow e case is received in three parts all labeled with the patient's name, Jose Barbour, date of 1970, and acce ssion number, [id number], which corresponds to the accompanying requisition [facility] e labeled with the same name and accession number.Part B. Received in formalin labeled with the patient's information only i s a 2.0 x 1.0 x 1.0 cm blood clot. The speci men is bisected and submitted entirely in ca ssette B1.Part C. Received in formalin labe led with the patient's information only i s a 2.1 cm long x 0.2 cm in diameter red-bro wn cylindrical portion of bone. The specime n is submitted in toto following decalcific ation cassette C1.Also received with the ca se is a blood smear labeled with the patie nt's name, date of and accession татьяна reece RP/ew BONE MARROW ASPIRATE:QUALITY:Aspi rate- AdequateTouch imprint- Adequ ateMARROW DIFFERENTIAL COUNT: Number o f cells counted: 3001% Blasts 1% Promyelocyte s 23% Myelocytes/Metamyelocytes 29 % Bands/Segmented granulocytes 2% Eosinophils and precursors 0% Basophils and precursors 38% Erythroid precursors 4% Lymphocytes 0% Monocytes2% Plasma cellsMyel oid: Erythroid Ratio: 1.5Blasts: Not increasedErythropoiesis: Mil d megaloblastoid changes.Myelopoiesis: Mild l eft shiftMegakaryocytes: Increas ed, hypolobated and multinucleated forms.Sta inable iron is focally identified on marrow particles present on the aspirate smea r and appears to be decreased. Ring siderobla sts are not identified. BONE MARROW BI OPSY: Biopsy- Adequate Clot- AdequateThe m arrow core demonstrates a cellularity o f approximately 60%. Megakaryocytes are incr eased and demonstrate areas of loose c lustering. Immunohistochemical studies performed on the core biopsy (block C1) demon strate small mature CD20 positive B cells and CD3 positive T cells. Blasts are not increased by CD34. Plasma cells are po lytypic for kappa and lambda immunostain s. Stainable iron is focally identified o n the clot section by the Perls iron sp ecial stain. PERIPHERAL BLOOD:Red cells: Mild anisopoikilocytosis with vane ychromasia White cells: Mild left shift. No c irculating blastsPlatelets: Unremarkabl eThe interpretation of this case included the use of immunohistochemistry or s pecial stains.BLOCK B1- PERLS IRONB LOCK C1- CD20, CD3, CD34, KAPPA, LAMBDACont rol Slides Examined: In-house known po sitive controls were evaluated along with th e test tissue. These control slides run markus ngside of the patients sample show appropr iate staining. Internal positive and negati ve controls when available are evaluated Immu nohistochemistry technical testing was perfor med at [facility], athology Laboratory where it was roxann celeste and its performance characteristics were determined. It has not been cleared or a pproved by the U.S. Food and Drug Administr ation. The FDA has determined that such shanae arance or approval is not necessary. T he test is used for clinical purposes. It sh ould not be regarded as investigational or for research. This laboratory is certified under the Clinical Laboratory Improvem ent Amendments of 1988 (CLIA-88) as qualifi ed to perform high complexity clinical lab oratory testing. FLOW CYTOMETRY REQUISITION 2018-10-23 14:30:00 Test Item Value Reference Range Comments FLOW CYTOMETRY RESULT POINTER (OPAL) (test code = 2758) See Se parate Report FLOW CYTOMETRY AP CASE # (OPAL) (test code = 2759) [id number] FLOW [id number] 09:46:00Flow Cytometry Report Case: [id number] Authorizing Provider: Tiff Colmenares MD Collected: 10/20/2018 1151 Ordering Location: [address] Received: 10/20/2018 1336 Service Pathologist: Damián Mckeon MD Specimen: Other BONE MARROW, FLOW CYTOMETRY:NO MONOCLONAL B CELL POPULATION.NO ABNORMAL T CELL POPULATION.NO INCREASED BLAST POPULATION.CORRELATION WITH MORPHOLOGIC FINDINGS REQUIRED. 25420RarvziOgva marrow CD8, surface-[place], CD56, surface-Lambda, CD5, CD19, CD10, CD3, CD20, CD4, CD45, CD14, CD13, CD33, CD117, CD34, cKappa, cLambda, CD38, YF167Twopgnom Viability: 97.2% Blasts: The dim CD45+ CD34+ [...] expression.The remaining events analyzed represent nonviable cells, non- hematolymphoid cells, and/or debris.These tests were developed and their performance characteristics determined by [facility]. Theyhave not been cleared or approved [...] Range Comments ANTI-NUCLEAR ANTIBODY (ANGELES) (BEAKER) (test code = Positive Negative 418) Test performed by IFA method.ANGELES TITER AND [id number] 11:18:00 Test Item Value Reference Range Comments ANGELES TITER (BEAKER) (test code = 1541) :160 ANGELES PATTERN (BEAKER) (test code = 1781) Nucleolar HEPATITIS A [id number] 08:30:00 Test Item Value Reference Range Comments HEPATITIS A IGM ANTIBODY (BEAKER) (test code = Nonreactive N onreactive 498) HEPATITIS A IGG ANTIBODY (BEAKER) (test code = Reactive N onreactive 2797) POCT-GLUCOSE [id number] 08:29:00 Test Item Value Reference Range Comments POC-GLUCOSE METER (BEAKER) 270 mg/dL 70-110 TESTE D AT [facility] [address] [facility] (test code = 1538) [place] [address] HEPATITIS B [id number] 08:29:00 Test Item Value Reference Range Comments HEPATITIS B CORE TOTAL ANTIBODY (BEAKER) (test Nonreactive N onreactive code = 497) HEPATITIS B SURFACE ANTIBODY (BEAKER) (test code < mIU/mL <8.0 = 647) HEPATITIS B SURFACE ANTIGEN (2) (BEAKER) (test Nonreactive N onreactive code = 2585) BASIC METABOLIC [id number] 06:54:00 Test Item Value Reference Range Comments SODIUM (BEAKER) (test 131 meq/L 136-145 code = 381) POTASSIUM (BEAKER) (test 4.7 meq/L 3.5-5.1 code = 379) CHLORIDE (BEAKER) (test 96 meq/L 98-107 code = 382) CO2 (BEAKER) (test code = 25 meq/L 22-29 355) BLOOD UREA NITROGEN 62 mg/dL 7-21 (BEAKER) (test code = 354) CREATININE (BEAKER) (test 2.80 mg/dL 0.57-1.25 code = 358) GLUCOSE RANDOM (BEAKER) 278 mg/dL 70-105 (test code = 652) CALCIUM (BEAKER) (test 9.3 mg/dL 8.4-10.2 code = 697) EGFR (BEAKER) (test code 18 mL/min/1.73 sq m EST IMATED GFR IS NOT = 1092) ACCURATE CREA TININE CLEARANCE IN PRE DICTING GLOMERULAR FILTR ATION RATE. ESTIMATED GFR IS NOT APPLICABLE F OR DIALYSIS PATIENT S. [id number] 06:50:00 Test Item Value Reference Range Comments MAGNESIUM (BEAKER) (test code = 627) 2.1 mg/dL 1.6-2.6 HEPATIC FUNCTION [id number] 06:50:00 Test Item Value Reference Range Comments TOTAL PROTEIN (BEAKER) (test code = 770) 7.7 gm/dL 6.0-8.3 ALBUMIN (BEAKER) (test code = 1145) 3.5 g/dL 3.5-5.0 BILIRUBIN TOTAL (BEAKER) (test code = 377) 0.4 mg/dL 0.2-1 .2 BILIRUBIN DIRECT (BEAKER) (test code = 706) 0.2 mg/dL 0.1- 0.5 ALKALINE PHOSPHATASE (BEAKER) (test code = 346) 61 U/L 40-150 AST (SGOT) (BEAKER) (test code = 353) 39 U/L 5-34 ALT (SGPT) (BEAKER) (test code = 347) 253 U/L 6-55 LACTATE DEHYDROGENASE (LDH)2018-10-21 06:50:00 Test Item Value Reference Range Comments LACTATE DEHYDROGENASE (BEAKER) (test code = 635) 224 U/L 125-220 [id number] 06:20:00 Test Item Value Reference Range Comments FERRITIN (BEAKER) (test code = 361) 1162 ng/mL 5-275 POCT-GLUCOSE [id number] 21:09:00 Test Item Value Reference Range Comments POC-GLUCOSE METER (BEAKER) 336 mg/dL 70-110 Notif iejeff SANDRA MD/TESTED AT [facility] (test code = 1538) [address] [facility] [address] POCT-GLUCOSE [id number] 18:17:00 Test Item Value Reference Range Comments POC-GLUCOSE METER (BEAKER) 308 mg/dL 70-110 TESTE D AT [place] [address] [address] (test code = 1538) [facility] [address] PROTEIN ELECTROPHORESIS, [id number] 17:39:00 Test Item Value Reference Range Comments ALBUMIN FRACTION (BEAKER) 3.0 g/dL 3.5-5.5 (test code = 405) ALPHA 1 FRACTION (BEAKER) 0.4 g/dL 0.2-0.4 (test code = 389) ALPHA 2 FRACTION (BEAKER) 1.2 g/dL 0.5-0.9 (test code = 390) BETA FRACTION (BEAKER) (test 0.8 g/dL 0.6-1.1 code = 392) GAMMA GLOBULIN FRACTION 2.2 g/dL 0.7-1.7 (BEAKER) (test code = 391) INTERPRETATION-119 (BEAKER) Total protein and albumin (test code = 2615) decreased. Alpha-1 and alpha-2 globulin percentages increased. Gamma increased in a diffuse fashion. This indicates an acute phase response and concomitant chronic immune or inflammatory response. [id number] Armani To M.D. (electonic (BEAKER) (test code = 2616) signature) PROTEIN TOTAL SERUM, SPEP 7.6 gm/dL 6.0-8.3 (BEAKER) (test code = 2660) BONE MARROW PROCESS.2018-10-20 12:02:00 Test Item Value Reference Range Comments ANATOMIC CASE# (BEAKER) (test code = 2470) [id number] ORDERED BY DOCTOR# (BEAKER) (test code = 2457) Escudier PERFORMED BY DOCTOR# (BEAKER) (test code = 2458) Cora CLOT RECEIVED? (BEAKER) (test code = 2459) Yes BIOPSY RECEIVED? (BEAKER) (test code = 2460) Yes CULTURE RECEIVED? (BEAKER) (test code = 2464) No FLOW RECEIVED? (BEAKER) (test code = 2461) Yes CYTOGENICS? (BEAKER) (test code = 2462) Yes MOLECULAR GENETICS? (BEAKER) (test code = 2463) Yes Good collection by Dr Curran slides are good(Rosa)CT, BIOPSY, BONE MARROW 2018-10-20 11:46:00Reason for exam:->anemia, hepatosplenomegalyFINAL REPORT CT-guided aspiration [...] fluoroscopic guidance and a 12-gauge Bonopty core bi opsy system, initially a nine cc aspiration of the posterior left iliac bone was performed. This wasgiven to the speech pathology assistant who was present at the time of the study and deemed adequate. Subsequently, a core biopsy was obtained. This was also given to the speech pathology assistant. COMPLICATIONS:None. ESTIMATED BLOOD LOSS: Minimal. Patient Disposition: The patient was in the same state post procedure as preprocedure. IMPRESSION: Successful CT-guided aspiration and core biopsy of the bone marrow. Signed: Long Shepherd MDReport Verified Date/Time: 10/20/2018 11:46:15 Reading Location: [address] Consult Reading Room 1 1:46 AMPOCT-GLUCOSE [id number] 11:37:00 Test Item Value Reference Range Comments POC-GLUCOSE METER (BEAKER) 213 mg/dL 70-110 TESTE D AT [facility] [address] [facility] (test code = 1538) [facility] [address] CBC W/PLT COUNT & AUTO [id number] 10:17:00 Test Item Value Reference Range Comments WHITE BLOOD CELL COUNT (BEAKER) (test code = 5.6 K/ L 3.5 -10.5 775) RED BLOOD CELL COUNT (BEAKER) (test code = 761) 3.27 M/ L 3.93-5.22 HEMOGLOBIN (BEAKER) (test code = 410) 9.5 GM/DL 11.2-15.7 HEMATOCRIT (BEAKER) (test code = 411) 29.8 % 34.1-44.9 MEAN CORPUSCULAR VOLUME (BEAKER) (test code = 91.1 fL 79 .4-94.8 753) MEAN CORPUSCULAR HEMOGLOBIN (BEAKER) (test code 29.1 pg 25.6-32.2 = 751) MEAN CORPUSCULAR HEMOGLOBIN CONC (BEAKER) (test 31.9 GM/DL 32.2-35.5 code = 752) RED CELL DISTRIBUTION WIDTH (BEAKER) (test code 15.1 % 11.7-14.4 = 412) PLATELET COUNT (BEAKER) (test code = 756) 260 K/CU MM 150-45 0 MEAN PLATELET VOLUME (BEAKER) (test code = 754) 11.1 fL 9.4-12.3 NUCLEATED RED BLOOD CELLS (BEAKER) (test code = 0 /100 WBC 0-0 413) (CELLAVISION MANUAL DIFF)2018-10-20 10:17:00 Test Item Value Reference Range Comments NEUTROPHILS - REL (CELLAVISION)(BEAKER) (test 60 % code = 2816) LYMPHOCYTES - REL (CELLAVISION)(BEAKER) (test 31 % code = 2817) MONOCYTES - REL (CELLAVISION)(BEAKER) (test code 3 % = 2818) EOSINOPHILS - REL (CELLAVISION)(BEAKER) (test 4 % code = 2819) METAMYELOCYTES - REL (CELLAVISION)(BEAKER) (test 1 % 0-0 code = 2821) BANDS - REL (CELLAVISION)(BEAKER) (test code = 1 % 0 -10 2826) NEUTROPHILS - ABS (CELLAVISION)(BEAKER) (test 3.36 K/ul 1. 56-6.13 code = 2830) LYMPHOCYTES - ABS (CELLAVISION)(BEAKER) (test 1.74 K/ul 1. 18-3.74 code = 2831) MONOCYTES - ABS (CELLAVISION)(BEAKER) (test code 0.17 K/uL 0.24-0.36 = 2832) EOSINOPHILS - ABS (CELLAVISION)(BEAKER) (test 0.22 K/uL 0. 04-0.36 code = 2834) METAMYELOCYTES - ABS (CELLAVISION)(BEAKER) (test 0.06 K/uL 0.00-0.00 code = 2836) BANDS - ABS (CELLAVISION)(BEAKER) (test code = 0.06 K/uL 0 .00-0.80 2840) TOTAL COUNTED (BEAKER) (test code = 1351) 100 MANUAL NRBC PER 100 CELLS (BEAKER) (test code = 1 /100 WBC 0-0 1353) WBC MORPHOLOGY (BEAKER) (test code = 487) Normal PLT MORPHOLOGY (BEAKER) (test code = 486) Normal POLYCHROMATOPHILLIC RBCS(BEAKER) (test code = 1+ few 478) ANISOCYTOSIS (BEAKER) (test code = 961) 1+ few ARTIFACT (CELLAVISION)(BEAKER) (test code = 3432) Present PLATELET CONCENTRATION (CELLAVISION)(BEAKER) Adequate (test code = 3438) Received comment: User comments: Slide comments:BASIC METABOLIC [id number] 07:15:00 Test Item Value Reference Range Comments SODIUM (BEAKER) (test 135 meq/L 136-145 code = 381) POTASSIUM (BEAKER) (test 4.6 meq/L 3.5-5.1 Specime n slightly code = 379) hemolyzed CHLORIDE (BEAKER) (test 97 meq/L 98-107 code = 382) CO2 (BEAKER) (test code = 26 meq/L 22-29 355) BLOOD UREA NITROGEN 56 mg/dL 7-21 (BEAKER) (test code = 354) CREATININE (BEAKER) (test 2.65 mg/dL 0.57-1.25 Specim en slightly code = 358) hemolyzed GLUCOSE RANDOM (BEAKER) 191 mg/dL 70-105 (test code = 652) CALCIUM (BEAKER) (test 9.6 mg/dL 8.4-10.2 code = 697) EGFR (BEAKER) (test code 19 mL/min/1.73 sq m EST IMATED GFR IS NOT = 1092) ACCURATE CREA TININE CLEARANCE IN PRE DICTING GLOMERULAR FILTR ATION RATE. ESTIMATED GFR IS NOT APPLICABLE F OR DIALYSIS PATIENT S. [id number] 06:12:00 Test Item Value Reference Range Comments MAGNESIUM (BEAKER) (test code = 2.0 mg/dL 1.6-2.6 Specimen slightly hemolyzed 627) [id number] 06:12:00 Test Item Value Reference Range Comments PHOSPHORUS (BEAKER) (test code 4.7 mg/dL 2.3-4.7 S pecimen slightly hemolyzed = 604) PT/[id number] 06:06:00 Test Item Value Reference Range Comments PROTIME (BEAKER) (test code = 759) 13.0 seconds 11.9-14.2 INR (BEAKER) (test code = 370) 1.0 <=5.9 PARTIAL THROMBOPLASTIN TIME (BEAKER) (test code 32.3 seconds 22.5-36.0 = 760) Effective 09/13/2018: PT Reference Range ChangeNew: 11.9-14.2 Previous: 11.7- 14.7RECOMMENDED COUMADIN/WARFARIN INR THERAPY RANGESSTANDARD DOSE: 2.0-3.0 Includes: PROPHYLAXIS for venous thrombosis, systemic embolization; TREATMENT for venous thrombosis and/or pulmonary embolus.HIGH RISK: Target INR is2.5-3.5 for patients wiht mechanical heart valves.POCT-GLUCOSE [id number] 21:39:00 Test Item Value Reference Range Comments POC-GLUCOSE METER (BEAKER) 327 mg/dL 70-110 Will Repeat Test/TESTED AT (test code = 1538) [address] [address] POCT-GLUCOSE [id number] 17:28:00 Test Item Value Reference Range Comments POC-GLUCOSE METER (BEAKER) 244 mg/dL 70-110 TESTE D AT [address] (test code = 1538) [facility] [address] RHEUMATOID FACTOR AB, REFLEX TO [id number] 11:15:00 Test Item Value Reference Range Comments RHEUMATOID FACTOR (BEAKER) (test code = 573) Negative CBC W/PLT COUNT & AUTO [id number] 09:44:00 Test Item Value Reference Range Comments WHITE BLOOD CELL COUNT (BEAKER) (test code = 4.8 K/ L 3.5 -10.5 775) RED BLOOD CELL COUNT (BEAKER) (test code = 761) 3.17 M/ L 3.93-5.22 HEMOGLOBIN (BEAKER) (test code = 410) 9.0 GM/DL 11.2-15.7 HEMATOCRIT (BEAKER) (test code = 411) 29.0 % 34.1-44.9 MEAN CORPUSCULAR VOLUME (BEAKER) (test code = 91.5 fL 79 .4-94.8 753) MEAN CORPUSCULAR HEMOGLOBIN (BEAKER) (test code 28.4 pg 25.6-32.2 = 751) MEAN CORPUSCULAR HEMOGLOBIN CONC (BEAKER) (test 31.0 GM/DL 32.2-35.5 code = 752) RED CELL DISTRIBUTION WIDTH (BEAKER) (test code 15.2 % 11.7-14.4 = 412) PLATELET COUNT (BEAKER) (test code = 756) 228 K/CU MM 150-45 0 MEAN PLATELET VOLUME (BEAKER) (test code = 754) 10.7 fL 9.4-12.3 NUCLEATED RED BLOOD CELLS (BEAKER) (test code = 1 /100 WBC 0-0 413) (CELLAVISION MANUAL DIFF)2018-10-19 09:44:00 Test Item Value Reference Range Comments NEUTROPHILS - REL (CELLAVISION)(BEAKER) (test 72 % code = 2816) LYMPHOCYTES - REL (CELLAVISION)(BEAKER) (test 14 % code = 2817) MONOCYTES - REL (CELLAVISION)(BEAKER) (test code 4 % = 2818) EOSINOPHILS - REL (CELLAVISION)(BEAKER) (test 5 % code = 2819) METAMYELOCYTES - REL (CELLAVISION)(BEAKER) (test 4 % 0-0 code = 2821) MYELOCYTES - REL (CELLAVISION)(BEAKER) (test code 1 % 0-0 = 2822) NEUTROPHILS - ABS (CELLAVISION)(BEAKER) (test 3.46 K/ul 1. 56-6.13 code = 2830) LYMPHOCYTES - ABS (CELLAVISION)(BEAKER) (test 0.67 K/ul 1. 18-3.74 code = 2831) MONOCYTES - ABS (CELLAVISION)(BEAKER) (test code 0.19 K/uL 0.24-0.36 = 2832) EOSINOPHILS - ABS (CELLAVISION)(BEAKER) (test 0.24 K/uL 0. 04-0.36 code = 2834) METAMYELOCYTES - ABS (CELLAVISION)(BEAKER) (test 0.19 K/uL 0.00-0.00 code = 2836) MYELOCYTES-ABS (CELLAVISION)(BEAKER) (test code = 0.05 K/uL 0.00-0.00 2837) TOTAL COUNTED (BEAKER) (test code = 1351) 100 MANUAL NRBC PER 100 CELLS (BEAKER) (test code = 2 /100 WBC 0-0 1353) SMUDGE CELLS (BEAKER) (test code = 1371) Present GIANT PLATELETS (BEAKER) (test code = 313) Present ANISOCYTOSIS (BEAKER) (test code = 961) 1+ few PLATELET CONCENTRATION (CELLAVISION)(BEAKER) Adequate (test code = 3438) Received comment: User comments: Slide comments:POCT-GLUCOSE [id number] 09:05:00 Test Item Value Reference Range Comments POC-GLUCOSE METER (BEAKER) 166 mg/dL 70-110 TESTE D AT [facility] [address] [facility] (test code = 1538) [place] [address] COMPREHENSIVE METABOLIC [id number] 07:14:00 Test Item Value Reference Range Comments TOTAL PROTEIN (BEAKER) 8.2 gm/dL 6.0-8.3 Specimen slightly (test code = 770) hemolyzed ALBUMIN (BEAKER) (test 3.6 g/dL 3.5-5.0 Specimen slightly code = 1145) hemolyzed ALKALINE PHOSPHATASE 72 U/L 40-150 (BEAKER) (test code = 346) BILIRUBIN TOTAL (BEAKER) 0.5 mg/dL 0.2-1.2 Specime n slightly (test code = 377) hemolyzed SODIUM (BEAKER) (test code 135 meq/L 136-145 = 381) POTASSIUM (BEAKER) (test 4.2 meq/L 3.5-5.1 Specime n slightly code = 379) hemolyzed CHLORIDE (BEAKER) (test 97 meq/L 98-107 code = 382) CO2 (BEAKER) (test code = 27 meq/L 22-29 355) BLOOD UREA NITROGEN 60 mg/dL 7-21 (BEAKER) (test code = 354) CREATININE (BEAKER) (test 2.79 mg/dL 0.57-1.25 Specim en slightly code = 358) hemolyzed GLUCOSE RANDOM (BEAKER) 171 mg/dL 70-105 (test code = 652) CALCIUM (BEAKER) (test 9.5 mg/dL 8.4-10.2 code = 697) AST (SGOT) (BEAKER) (test 152 U/L 5-34 Specim en slightly code = 353) hemolyzed ALT (SGPT) (BEAKER) (test 532 U/L 6-55 Specim en slightly code = 347) hemolyzed EGFR (BEAKER) (test code = 18 mL/min/1.73 sq m E STIMATED GFR IS NOT 1092) ACCURATE CREA TININE CLEARANCE IN PRE DICTING GLOMERULAR FILTR ATION RATE. ESTIMATED GFR IS NOT APPLICABLE F OR DIALYSIS PATIENT S. [id number] 06:36:00 Test Item Value Reference Range Comments MAGNESIUM (BEAKER) (test code = 2.0 mg/dL 1.6-2.6 Specimen slightly hemolyzed 627) [id number] 06:36:00 Test Item Value Reference Range Comments PHOSPHORUS (BEAKER) (test code 4.4 mg/dL 2.3-4.7 S pecimen slightly hemolyzed = 604) URIC [id number] 06:36:00 Test Item Value Reference Range Comments URIC ACID (BEAKER) (test code = 9.8 mg/dL 2.6-7.2 Specimen slightly hemolyzed 773) HEPATIC FUNCTION [id number] 06:36:00 Test Item Value Reference Range Comments TOTAL PROTEIN (BEAKER) (test 8.2 gm/dL 6.0-8.3 Spe cimen slightly hemolyzed code = 770) ALBUMIN (BEAKER) (test code = 3.6 g/dL 3.5-5.0 Sp ecimen slightly hemolyzed 1145) BILIRUBIN TOTAL (BEAKER) (test 0.5 mg/dL 0.2-1.2 S pecimen slightly hemolyzed code = 377) BILIRUBIN DIRECT (BEAKER) (test 0.2 mg/dL 0.1-0.5 Specimen slightly hemolyzed code = 706) ALKALINE PHOSPHATASE (BEAKER) 72 U/L 40-150 (test code = 346) AST (SGOT) (BEAKER) (test code 152 U/L 5-34 S pecimen slightly hemolyzed = 353) ALT (SGPT) (BEAKER) (test code 532 U/L 6-55 S pecimen slightly hemolyzed = 347) B-TYPE NATRIURETIC FACTOR (BNP)2018-10-19 06:33:00 Test Item Value Reference Range Comments B-TYPE NATRIURETIC PEPTIDE (BEAKER) (test code = 162 pg/mL 0-100 700) PROTHROMBIN TIME/[id number] 06:06:00 Test Item Value Reference Range Comments PROTIME (BEAKER) (test code = 759) 13.4 seconds 11.9-14.2 INR (BEAKER) (test code = 370) 1.1 <=5.9 Effective 09/13/2018: PT Reference Range ChangeNew: 11.9-14.2 Previous: 11.7- 14.7RECOMMENDED COUMADIN/WARFARIN INR THERAPY RANGESSTANDARD DOSE: 2.0-3.0 Includes: PROPHYLAXIS for venous thrombosis, systemic embolization; TREATMENT for venous thrombosis and/or pulmonary embolus.HIGH RISK: Target INR is2.5-3.5 for patients wiht mechanical heart valves.CALCIUM, [id number] 05:56:00 Test Item Value Reference Range Comments CALCIUM IONIZED (BEAKER) (test code = 698) 1.10 mmol/L 1.12- 1.27 PH, BLOOD (BEAKER) (test code = 1810) 7.38 CALCIUM, [id number] 05:56:00 Test Item Value Reference Range Comments CALCIUM IONIZED (BEAKER) (test code = 698) 1.07 mmol/L 1.12- 1.27 PH, BLOOD (BEAKER) (test code = 1810) 7.41 POCT-GLUCOSE [id number] 21:33:00 Test Item Value Reference Range Comments POC-GLUCOSE METER (BEAKER) 297 mg/dL 70-110 TESTE D AT [facility] [address] [facility] (test code = 1538) [facility] 77 [phone] CMV PCR, [id number] 18:31:00 Test Item Value Reference Range Comments CMV VIRAL LOAD - NEGATIVE Negative or below the linear (BEAKER) (test code = 2558) range of the assay (<375 copies/mL) Cytomegalovirus [...] viral load canbe evaluated by identifying a 10-fold change, as well as assessing the CMV DNA viral load and the clinical context for each patient.The plasma CMV DNA viral load was detected using quantitative polymerase chain reaction and fluorescent monitoring of a specific hybridized probe. Genetic variation and ot her factors can affect the accuracy of nucleic acid testing. Therefore, the results should be interpreted in light of clinical data. A negative result may not exclude the presence of CMV disease.This test was developed and its performance characteristics determined by the [facility] Path ology Department, Section of Molecular Pathology. It has not been cleared or approved by the U.S. Food and Drug Administration (FDA), since FDA approval is not required for clinical use of the test. Validation was done as required by The Clinical Laboratory Improvement Amendments of 1988.EBV VIRAL [id number] 18:23:00 Test Item Value Reference Range Comments EBV VIRAL LOAD - NEGATIVE Negative or below the linear (BEAKER) (test code = 2559) range of the assay (<500 copies/mL) This assay was performed by real-time PCR for the detection of the Adria-Pozo virus (EBV) gene EBNA-1. The test is composed of (1) DNA extraction from patient specimen, and (2) real-time PCR amplification and detection with DHYF-2-yuqqsbcq primers and probes. A well-conserved region of the EBNA-1 gene is targeted, along with an internal control sequence used to confirm PCR amplification. Asymptomatic carriers and viral genetic variation, among other factors, can affect the accuracy of nucleic acid testing; therefore, results should be interpreted in light of clinical data.This test was developedand its performance characteristics determined by the [facility] Pathology Department, Section of Molecular Pathology. It has not been cleared or approved by the U.S. Food and Drug Administration (FDA), since FDA approval is not required for clinical use of the test. Validation was doneas required by The Clinical Laboratory Improvement Amendments of 1988.POCT-GLUCOSE [id number] 18:02:00 Test Item Value Reference Range Comments POC-GLUCOSE METER (BEAKER) 198 mg/dL 70-110 TESTE D AT [facility] [address] (test code = 1538) [facility] [address] RESPIRATORY PANEL [id number] 17:32:00 Test Item Value Reference Range Comments HUMAN METAPNEUMOVIRUS (BEAKER) (test Not detected Not detecte d, Equivocal code = 2683) RHINOVIRUS (BEAKER) (test code = 2684) Not detected Not detec darryl, Equivocal INFLUENZA A (BEAKER) (test code = 2685) Not detected Not dete cted, Equivocal INFLUENZA A (NO SUBTYPE) (test code = Not detect ed, Equivocal 3606) INFLUENZA A SUBTYPE H1 (BEAKER) (test Not detect ed, Equivocal code = 2686) INFLUENZA A SUBTYPE H3 (BEAKER) (test Not detect ed, Equivocal code = 2687) INFLUENZA A SUBTYPE H1-2009 (BEAKER) Not detecte d, Equivocal (test code = 3198) INFLUENZA B (BEAKER) (test code = 2688) Not detected Not dete cted, Equivocal RESPIRATORY SYNCYTIAL VIRUS (BEAKER) Not detected Not detecte d, Equivocal (test code = 3199) PARAINFLUENZA VIRUS 1 (BEAKER) (test Not detected Not detecte d, Equivocal code = 2691) PARAINFLUENZA VIRUS 2 (BEAKER) (test Not detected Not detecte d, Equivocal code = 2692) PARAINFLUENZA VIRUS 3 (BEAKER) (test Not detected Not detecte d, Equivocal code = 2693) PARAINFLUENZA VIRUS 4 (BEAKER) (test Not detected Not detecte d, Equivocal code = 3200) ADENOVIRUS (BEAKER) (test code = 2694) Not detected Not detec darryl, Equivocal CORONAVIRUS 229E (BEAKER) (test code = Not detected Not detec darryl, Equivocal 3201) CORONAVIRUS HKU1 (BEAKER) (test code = Not detected Not detec darryl, Equivocal 3202) CORONAVIRUS NL63 (BEAKER) (test code = Not detected Not detec darryl, Equivocal 3203) CORONAVIRUS OC43 (BEAKER) (test code = Not detected Not detec darryl, Equivocal 3204) BORDETELLA PERTUSSIS (BEAKER) (test Not detected Not detected , Equivocal code = 3205) CHLAMYDOPHILA PNEUMONIAE (BEAKER) (test Not detected Not dete cted, Equivocal code = 3206) MYCOPLASMA PNEUMONIAE (BEAKER) (test Not detected Not detecte d, Equivocal code = 3207) Other viruses and bacteria not targeted by this PCR panel cannot be excluded; therefore clinical correlation and follow up of serology, culture results, and other molecular studies is required. The results are not intended to be used as the sole means for clinical diagnosis or patient management decisions. This sample was tested at the [facility] Molecular Diagnostics Laboratory using the CubeyouArray Respiratory Panel. It is FDA cleared and has been verified and approved by the [facility] for clinical use on nasopharyngeal swab specimens.The performance of the FilmArrayRP has not been established in individuals who received influenza vaccine. Recent administration ofa nasal influenza vaccine may cause false positive results for Influenza A and/orInfluenza B.EOSINOPHIL SMEAR, [id number] 16:42:00 Test Item Value Reference Range Comments EOSINOPHIL SMEAR, URINE (BEAKER) Rare EOS =less than 5% WBCs No EOS seen (test code = 1851) seen are EOS CT, CHEST, WITHOUT [id number] 16:31:00FINAL REPORT CT Chest, abdomen, and pelvis [...] within the pelvic cul-de-sac, nonspecific. Signed: Mani Mroel rified Date/Time: 10/18/2018 16:31:25 Reading Location: [facility] Radiology Reading Room CT, [id number] 16:31:00Reason for exam:->hepatosplenomegalyFINAL REPORT CT Chest, abdomen, [...] oral or intravenous contrast.2. Trace bilateral pleural e ffusions, right greater than left.3. Previous cholecystectomy and hysterectomy.4. A small amount of free fluid is seen within the pelvic cul-de-sac, nonspecific. Signed: Mani Morel Verified Date/Time: 10/18/2018 16:31:25 Reading Location: [facility] Radiology Reading Room CBC W/PLT COUNT & AUTO [id number] 15:06:00 Test Item Value Reference Range Comments WHITE BLOOD CELL COUNT 4.4 K/ L 3.5-10.5 This is a corrected result. (BEAKER) (test code = 775) Previ ous result was 4.2 K/ L on 10/18/2018 at 0657 CDT RED BLOOD CELL COUNT (BEAKER) 2.92 M/ L 3.93-5.22 Th is is a corrected result. (test code = 761) Previous resul t was 2.88 M/ L on 10/18/2018 at 0657 CDT HEMOGLOBIN (BEAKER) (test code 8.3 GM/DL 11.2-15.7 = 410) HEMATOCRIT (BEAKER) (test code 27.1 % 34.1-44.9 T his is a corrected result. = 411) Previous result was 26.4 % on 10/18/2018 at 0 657 CDT MEAN CORPUSCULAR VOLUME 92.8 fL 79.4-94.8 This is a corrected result. (BEAKER) (test code = 753) Previ ous result was 91.7 fL on 10/18/2018 at 0 657 CDT MEAN CORPUSCULAR HEMOGLOBIN 28.4 pg 25.6-32.2 This is a corrected result. (BEAKER) (test code = 751) Previ ous result was 28.8 pg on 10/18/2018 at 0 657 CDT MEAN CORPUSCULAR HEMOGLOBIN 30.6 GM/DL 32.2-35.5 This is a corrected result. CONC (BEAKER) (test code = Previ ous result was 31.4 752) GM/DL on 9 at 0657 CDT RED CELL DISTRIBUTION WIDTH 15.3 % 11.7-14.4 This is a corrected result. (BEAKER) (test code = 412) Previ ous result was 15.1 % on 10/18/2018 at 0 657 CDT PLATELET COUNT (BEAKER) (test 185 K/CU MM 150-450 Th is is a corrected result. code = 756) Previous result was 177 K/CU MM on 019 at 0657 CDT MEAN PLATELET VOLUME (BEAKER) 11.3 fL 9.4-12.3 Th is is a corrected result. (test code = 754) Previous resul t was 11.1 fL on 10/18/2018 at 0 657 CDT NUCLEATED RED BLOOD CELLS 2 /100 WBC 0-0 This i s a corrected result. (BEAKER) (test code = 413) Previ ous result was 1 /100 WBC on 10/18/2018 at 0657 CDT (CELLAVISION MANUAL DIFF)2018-10-18 15:04:00 Test Item Value Reference Range Comments NEUTROPHILS - REL (CELLAVISION)(BEAKER) (test 74 % code = 2816) LYMPHOCYTES - REL (CELLAVISION)(BEAKER) (test 14 % code = 2817) MONOCYTES - REL (CELLAVISION)(BEAKER) (test code 3 % = 2818) EOSINOPHILS - REL (CELLAVISION)(BEAKER) (test 6 % code = 2819) MYELOCYTES - REL (CELLAVISION)(BEAKER) (test code 3 % 0-0 = 2822) NEUTROPHILS - ABS (CELLAVISION)(BEAKER) (test 3.26 K/ul 1. 56-6.13 code = 2830) LYMPHOCYTES - ABS (CELLAVISION)(BEAKER) (test 0.62 K/ul 1. 18-3.74 code = 2831) MONOCYTES - ABS (CELLAVISION)(BEAKER) (test code 0.13 K/uL 0.24-0.36 = 2832) EOSINOPHILS - ABS (CELLAVISION)(BEAKER) (test 0.26 K/uL 0. 04-0.36 code = 2834) MYELOCYTES-ABS (CELLAVISION)(BEAKER) (test code = 0.13 K/uL 0.00-0.00 2837) TOTAL COUNTED (BEAKER) (test code = 1351) 100 MANUAL NRBC PER 100 CELLS (BEAKER) (test code = 1 /100 WBC 0-0 1353) WBC MORPHOLOGY (BEAKER) (test code = 487) Normal CLUMPED PLATELETS (BEAKER) (test code = 436) Present GIANT PLATELETS (BEAKER) (test code = 313) Present POLYCHROMATOPHILLIC RBCS(BEAKER) (test code = 1+ few 478) ANISOCYTOSIS (BEAKER) (test code = 961) 1+ few MICROCYTES (BEAKER) (test code = 965) 1+ few ARTIFACT (CELLAVISION)(BEAKER) (test code = 3432) Present PLATELET CONCENTRATION (CELLAVISION)(BEAKER) Adequate (test code = 3438) Received comment: User comments: Slide comments:RAPID INFLUENZA A&B SCREEN 2018-10-18 13:32:00 Test Item Value Reference Range Comments RAPID INFLUENZA A AG (BEAKER) (test code = Negative Negat jessica, Inconclusive 1622) RAPID INFLUENZA B AG (BEAKER) (test code = Negative Negat jessica, Inconclusive 1623) [id number] 13:19:00 Test Item Value Reference Range Comments FERRITIN (BEAKER) (test code = 361) 6230 ng/mL 5-275 HIV-1 ANTIGEN WITH HIV-1/2 [id number] 12:57:00 Test Item Value Reference Range Comments HIV-1 ANTIGEN WITH HIV 1\\T\\2 ANTIBODY (2) Nonreactive Nonrea ctive (BEAKER) (test code = 2586) [id number] 12:53:00 Test Item Value Reference Range Comments HAPTOGLOBIN (BEAKER) (test code = 366) 301 mg/dL 14-258 [id number] 12:34:00 Test Item Value Reference Range Comments D-DIMER QUANTITATIVE (BEAKER) (test code = 13.12 MG/L FEU <0.50 671) Intended Use: The D-Dimer Assay can be used to aid in the diagnosis of Deep Vein Thrombosis (DVT) and Pulmonary Embolism Disease (PED).In patients with low pre- test probability, various studies concerning STA Liatest D-dimer test have reported that with a cutoff value of 0.50 MG/L FEU, the Negative Predictive Value (NPV) regarding the exclusion of thrombosis is within 95-100% range.ALPHA FETOPROTEIN (AFP), TUMOR [id number] 12:29:00 Test Item Value Reference Range Comments ALPHA-FETOPROTEIN (BEAKER) (test code = 1094) < ng/mL <1 0.0 [id number] 11:08:00 Test Item Value Reference Range Comments TRIGLYCERIDES (BEAKER) (test code = 540) 299 mg/dL TRIGLYCERIDE REFERENCE RANGELow Risk <150Borderline Risk 150-199High Risk 200-499Very High Risk>=500POCT-GLUCOSE [id number] 11:05:00 Test Item Value Reference Range Comments POC-GLUCOSE METER (BEAKER) 248 mg/dL 70-110 TESTE D AT [address] (test code = 1538) [place] [address] RETICULOCYTE [id number] 11:05:00 Test Item Value Reference Range Comments RETICULOCYTE COUNT PCT (BEAKER) (test code = 575) 4.3 % 0.5-1.7 IRON, TIBC, % SAT. (WITHOUT FERRITIN)2018-10-18 10:12:00 Test Item Value Reference Range Comments IRON (BEAKER) (test code = 547) 42.0 ug/dL 40.0-160.0 TOTAL IRON BINDING CAPACITY (BEAKER) (test code = 264 ug/dL 250-450 769) IRON % SATURATION (2) (BEAKER) (test code = 2590) 16 % 20-55 POCT-GLUCOSE [id number] 08:55:00 Test Item Value Reference Range Comments POC-GLUCOSE METER (BEAKER) 198 mg/dL 70-110 TESTE D AT [address] (test code = 1538) [place] [address] [id number] 06:57:00 Test Item Value Reference Range Comments PHOSPHORUS (BEAKER) (test code = 604) 4.5 mg/dL 2.3-4.7 [id number] 06:57:00 Test Item Value Reference Range Comments MAGNESIUM (BEAKER) (test code = 627) 1.7 mg/dL 1.6-2.6 HEPATIC FUNCTION [id number] 06:57:00 Test Item Value Reference Range Comments TOTAL PROTEIN (BEAKER) (test code = 770) 7.6 gm/dL 6.0-8.3 ALBUMIN (BEAKER) (test code = 1145) 3.4 g/dL 3.5-5.0 BILIRUBIN TOTAL (BEAKER) (test code = 377) 0.5 mg/dL 0.2-1 .2 BILIRUBIN DIRECT (BEAKER) (test code = 706) 0.3 mg/dL 0.1- 0.5 ALKALINE PHOSPHATASE (BEAKER) (test code = 346) 75 U/L 40-150 AST (SGOT) (BEAKER) (test code = 353) 273 U/L 5-34 ALT (SGPT) (BEAKER) (test code = 347) 693 U/L 6-55 BASIC METABOLIC [id number] 06:57:00 Test Item Value Reference Range Comments SODIUM (BEAKER) (test 135 meq/L 136-145 code = 381) POTASSIUM (BEAKER) (test 3.9 meq/L 3.5-5.1 code = 379) CHLORIDE (BEAKER) (test 98 meq/L 98-107 code = 382) CO2 (BEAKER) (test code = 28 meq/L 22-29 355) BLOOD UREA NITROGEN 64 mg/dL 7-21 (BEAKER) (test code = 354) CREATININE (BEAKER) (test 3.19 mg/dL 0.57-1.25 code = 358) GLUCOSE RANDOM (BEAKER) 162 mg/dL 70-105 (test code = 652) CALCIUM (BEAKER) (test 9.1 mg/dL 8.4-10.2 code = 697) EGFR (BEAKER) (test code 16 mL/min/1.73 sq m EST IMATED GFR IS NOT = 1092) ACCURATE CREA TININE CLEARANCE IN PRE DICTING GLOMERULAR FILTR ATION RATE. ESTIMATED GFR IS NOT APPLICABLE F OR DIALYSIS PATIENT S. PROTHROMBIN [id number] 06:37:00 Test Item Value Reference Range Comments PROTIME (BEAKER) (test code = 759) 14.3 seconds 11.9-14.2 INR (BEAKER) (test code = 370) 1.2 <=5.9 Effective 09/13/2018: PT Reference Range ChangeNew: 11.9-14.2 Previous: 11.7- 14.7RECOMMENDED COUMADIN/WARFARIN INR THERAPY RANGESSTANDARD DOSE: 2.0-3.0 Includes: PROPHYLAXIS for venous thrombosis, systemic embolization; TREATMENT for venous thrombosis and/or pulmonary embolus.HIGH RISK: Target INR is2.5-3.5 for patients wiht mechanical heart valves.CALCIUM, [id number] 06:19:00 Test Item Value Reference Range Comments CALCIUM IONIZED (BEAKER) (test code = 698) 1.09 mmol/L 1.12- 1.27 PH, BLOOD (BEAKER) (test code = 1810) 7.36 POCT-GLUCOSE [id number] 21:54:00 Test Item Value Reference Range Comments POC-GLUCOSE METER (BEAKER) 281 mg/dL 70-110 TESTE D AT [facility] [address] [facility] (test code = 1538) [facility] [address] RAD, CHEST, 1 VIEW, NON [id number] 19:11:00Reason for exam:->SOBShould this be performed at the bedside?->YesFINAL REPORT Clinical History: SOB. Comparison Study: None Findings: The cardiac silhouette is enlarged. Pulmonary venous congestion is seen. The lungs are within normal limits. The pleural spaces are clear. There is no pneumothorax. No significant bony or soft tissue abnormalities are seen. Impression: Cardiomegaly with some pulmonary venous congestion. Signed: Long Shepherd MDReport Verified Date/Time: 10/17/2018 19:11:02 Reading Location: [address] Consult Reading Room [id number] 17:36:00 Test Item Value Reference Range Comments FERRITIN (BEAKER) (test code = 361) 30305 ng/mL 5-275 LACTATE DEHYDROGENASE (LDH)2018-10-17 16:41:00 Test Item Value Reference Range Comments LACTATE DEHYDROGENASE (BEAKER) (test code = 635) 541 U/L 125-220 [id number] 16:37:00 Test Item Value Reference Range Comments FIBRINOGEN LEVEL (BEAKER) (test code = 658) 439 mg/dl 225- 434 POCT-GLUCOSE [id number] 12:47:00 Test Item Value Reference Range Comments POC-GLUCOSE METER (BEAKER) 250 mg/dL 70-110 TESTE D AT [facility] [address] [facility] (test code = 1538) [facility] [address] PUL PERF IMAGING, PARTIC, [id number] 10:48:00FINAL REPORT PROCEDURE: V/Q LUNG SCAN CPT CODE: 03954 INDICATION: Acute chest pain pulmonary origin PROTOCOL: [...] of a fatty liver. Signed: Alvino Miranda MDReport Verified Date/Time: 10/17/2018 10:48:21 Reading Location: [address] Reading Room U/S, PELVIC, [id number] 10:02:00Reason for exam:->AKIFINAL REPORT Abdominal and pelvic ultrasound dated 10/17/2018 [...] Normal Doppler of the abdomen. Signed: Leobardo Ayoubeport Verified Date/Time: 10/17/2018 10:02:56 Reading Location: [address] Radiology Reading Room U/S, ABDOMINAL, WITH [id number] 10:02:00Reason for exam:->elevated transaminasesFINAL REPORT Abdominal and pelvic [...] Ayoub MDReport Verified Date/Time:10/17/2018 10:02:56 Reading Location: [address] Radiology Reading Room VITAMIN B12 AND [id number] 08:37:00 Test Item Value Reference Range Comments VITAMIN B12 (BEAKER) (test code = 774) > pg/mL 213-816 FOLATE (BEAKER) (test code = 362) 13.3 ng/mL >=7.0 POCT-GLUCOSE [id number] 08:32:00 Test Item Value Reference Range Comments POC-GLUCOSE METER (BEAKER) 168 mg/dL 70-110 TESTE D AT [address] (test code = 1538) [facility] [address] [id number] 08:03:00 Test Item Value Reference Range Comments FERRITIN (BEAKER) (test code = 361) 15875 ng/mL 5-275 URIC [id number] 06:15:00 Test Item Value Reference Range Comments URIC ACID (BEAKER) (test code = 773) 13.2 mg/dL 2.6-7.2 [id number] 06:15:00 Test Item Value Reference Range Comments MAGNESIUM (BEAKER) (test code = 627) 1.8 mg/dL 1.6-2.6 LIPID [id number] 06:15:00 Test Item Value Reference Range Comments TRIGLYCERIDES (BEAKER) (test code = 540) 223 mg/dL CHOLESTEROL (BEAKER) (test code = 631) 119 mg/dL HDL CHOLESTEROL (BEAKER) (test code = 976) 30 mg/dL LDL CHOLESTEROL CALCULATED (BEAKER) (test code = 44 mg/dL 633) Triglyceride Reference Range: Low Risk <150 Borderline 150-199 High Risk 200-499 Very High Risk >=500Cholesterol Reference Range: Low Risk <200 Borderline 200-239 High Risk >240HDL Cholesterol Reference Range: Low Risk >=60 High Risk <40LDL Cholesterol Reference Range: Optimal <100 Near Optimal 100-129 Borderline 130-159 High 160-189 Very High >=190HEPATIC FUNCTION [id number] 06:15:00 Test Item Value Reference Range Comments TOTAL PROTEIN (BEAKER) (test code = 770) 7.9 gm/dL 6.0-8.3 ALBUMIN (BEAKER) (test code = 1145) 3.7 g/dL 3.5-5.0 BILIRUBIN TOTAL (BEAKER) (test code = 377) 0.5 mg/dL 0.2-1 .2 BILIRUBIN DIRECT (BEAKER) (test code = 706) 0.3 mg/dL 0.1- 0.5 ALKALINE PHOSPHATASE (BEAKER) (test code = 346) 83 U/L 40-150 AST (SGOT) (BEAKER) (test code = 353) 747 U/L 5-34 ALT (SGPT) (BEAKER) (test code = 347) 1009 U/L 6-55 COMPLEMENT COMPONENT [id number] 06:15:00 Test Item Value Reference Range Comments C4 COMPLEMENT (BEAKER) (test code = 394) 28 mg/dL 15-57 COMPLEMENT COMPONENT [id number] 06:15:00 Test Item Value Reference Range Comments C3 COMPLEMENT (BEAKER) (test code = 393) 106 mg/dL 82-193 IRON, TIBC, % SAT. (WITHOUT FERRITIN)2018-10-17 06:15:00 Test Item Value Reference Range Comments IRON (BEAKER) (test code = 547) 39.0 ug/dL 40.0-160.0 TOTAL IRON BINDING CAPACITY (BEAKER) (test code = 265 ug/dL 250-450 769) IRON % SATURATION (2) (BEAKER) (test code = 2590) 15 % 20-55 BASIC METABOLIC [id number] 06:15:00 Test Item Value Reference Range Comments SODIUM (BEAKER) (test 134 meq/L 136-145 code = 381) POTASSIUM (BEAKER) (test 4.2 meq/L 3.5-5.1 code = 379) CHLORIDE (BEAKER) (test 100 meq/L 98-107 code = 382) CO2 (BEAKER) (test code = 26 meq/L 22-29 355) BLOOD UREA NITROGEN 64 mg/dL 7-21 (BEAKER) (test code = 354) CREATININE (BEAKER) (test 3.66 mg/dL 0.57-1.25 code = 358) GLUCOSE RANDOM (BEAKER) 123 mg/dL 70-105 (test code = 652) CALCIUM (BEAKER) (test 8.9 mg/dL 8.4-10.2 code = 697) EGFR (BEAKER) (test code 13 mL/min/1.73 sq m EST IMATED GFR IS NOT = 1092) ACCURATE CREA TININE CLEARANCE IN PRE DICTING GLOMERULAR FILTR ATION RATE. ESTIMATED GFR IS NOT APPLICABLE F OR DIALYSIS PATIENT S. PROTHROMBIN [id number] 05:57:00 Test Item Value Reference Range Comments PROTIME (BEAKER) (test code = 759) 16.0 seconds 11.9-14.2 INR (BEAKER) (test code = 370) 1.4 <=5.9 Effective 09/13/2018: PT Reference Range ChangeNew: 11.9-14.2 Previous: 11.7- 14.7RECOMMENDED COUMADIN/WARFARIN INR THERAPY RANGESSTANDARD DOSE: 2.0-3.0 Includes: PROPHYLAXIS for venous thrombosis, systemic embolization; TREATMENT for venous thrombosis and/or pulmonary embolus.HIGH RISK: Target INR is2.5-3.5 for patients wiht mechanical heart valves.CBC W/PLT COUNT & AUTO [id number] 05:55:00 Test Item Value Reference Range Comments WHITE BLOOD CELL COUNT (BEAKER) (test code = 4.4 K/ L 3.5 -10.5 775) RED BLOOD CELL COUNT (BEAKER) (test code = 761) 2.40 M/ L 3.93-5.22 HEMOGLOBIN (BEAKER) (test code = 410) 6.8 GM/DL 11.2-15.7 HEMATOCRIT (BEAKER) (test code = 411) 22.6 % 34.1-44.9 MEAN CORPUSCULAR VOLUME (BEAKER) (test code = 94.2 fL 79 .4-94.8 753) MEAN CORPUSCULAR HEMOGLOBIN (BEAKER) (test code 28.3 pg 25.6-32.2 = 751) MEAN CORPUSCULAR HEMOGLOBIN CONC (BEAKER) (test 30.1 GM/DL 32.2-35.5 code = 752) RED CELL DISTRIBUTION WIDTH (BEAKER) (test code 15.4 % 11.7-14.4 = 412) PLATELET COUNT (BEAKER) (test code = 756) 172 K/CU MM 150-45 0 MEAN PLATELET VOLUME (BEAKER) (test code = 754) 11.6 fL 9.4-12.3 NUCLEATED RED BLOOD CELLS (BEAKER) (test code = 1 /100 WBC 0-0 413) NEUTROPHILS RELATIVE PERCENT (BEAKER) (test code 73 % = 429) LYMPHOCYTES RELATIVE PERCENT (BEAKER) (test code 13 % = 430) MONOCYTES RELATIVE PERCENT (BEAKER) (test code = 5 % 431) EOSINOPHILS RELATIVE PERCENT (BEAKER) (test code 3 % = 432) BASOPHILS RELATIVE PERCENT (BEAKER) (test code = 1 % 437) NEUTROPHILS ABSOLUTE COUNT (BEAKER) (test code = 3.18 K/ L 1.56-6.13 670) LYMPHOCYTES ABSOLUTE COUNT (BEAKER) (test code = 0.56 K/ L 1.18-3.74 414) MONOCYTES ABSOLUTE COUNT (BEAKER) (test code = 0.23 K/ L 0 .24-0.36 415) EOSINOPHILS ABSOLUTE COUNT (BEAKER) (test code = 0.14 K/ L 0.04-0.36 416) BASOPHILS ABSOLUTE COUNT (BEAKER) (test code = 0.03 K/ L 0 .01-0.08 417) IMMATURE GRANULOCYTES-RELATIVE PERCENT (BEAKER) 5 % 0-1 (test code = 2801) TROPONIN [id number] 01:09:00 Test Item Value Reference Range Comments TROPONIN I (BEAKER) (test code = 397) 0.03 ng/mL 0.00-0.03 Troponin I (TnI) levels [...] acidosis, acute neurological disease, and persistent tachyarrhythmia.OSMOLALITY, [id number] 22:24:00 Test Item Value Reference Range Comments OSMOLALITY URINE (BEAKER) (test code = 614) 317 mOsm/kg 40-1 ,400 HEMOGLOBIN [id number] 22:20:00 Test Item Value Reference Range Comments HEMOGLOBIN A1C (BEAKER) (test code = 368) 7.2 % 4.3-6. 1 URINALYSIS W/ [id number] 22:19:00 Test Item Value Reference Range Comments COLOR (BEAKER) (test code = 470) Light Yellow CLARITY (BEAKER) (test code = 469) Clear SPECIFIC GRAVITY UA (BEAKER) (test code = 468) 1.006 1 .001-1.035 PH UA (BEAKER) (test code = 467) 5.5 5.0-8.0 PROTEIN UA (BEAKER) (test code = 464) 30 mg/dL Negative GLUCOSE UA (BEAKER) (test code = 365) Negative Negative KETONES UA (BEAKER) (test code = 371) Negative Negative BILIRUBIN UA (BEAKER) (test code = 462) Negative Negative BLOOD UA (BEAKER) (test code = 461) Negative Negative NITRITE UA (BEAKER) (test code = 465) Negative Negative LEUKOCYTE ESTERASE UA (BEAKER) (test code = Negative Nega tive 466) UROBILINOGEN UA (BEAKER) (test code = 463) 0.2 mg/dL 0.2-1 .0 RBC UA (BEAKER) (test code = 519) < /HPF WBC UA (BEAKER) (test code = 520) 3 /HPF MUCUS (BEAKER) (test code = 1574) Rare SQUAMOUS EPITHELIAL (BEAKER) (test code = 516) < /HPF SOURCE(BEAKER) (test code = 2795) POCT-GLUCOSE [id number] 22:09:00 Test Item Value Reference Range Comments POC-GLUCOSE METER (BEAKER) 171 mg/dL 70-110 TESTE D AT [facility] [address] [facility] (test code = 1538) [place] [address] PROTEIN, RANDOM [id number] 21:36:00 Test Item Value Reference Range Comments PROTEIN, URINE (BEAKER) (test code = 1569) 44 mg/dL 0-14 CHLORIDE, RANDOM [id number] 21:30:00 Test Item Value Reference Range Comments CHLORIDE URINE (BEAKER) (test code = 682) 96 meq/L Reference Range: No NormalsCREATININE, RANDOM [id number] 21:09:00 Test Item Value Reference Range Comments CREATININE URINE (BEAKER) (test code = 375) 30.6 mg/dL Reference Range: No NormalsSODIUM, RANDOM [id number] 21:09:00 Test Item Value Reference Range Comments SODIUM URINE (BEAKER) (test code = 243) 90 meq/L Reference Range: No NormalsUREA NITROGEN, RANDOM [id number] 21:09:00 Test Item Value Reference Range Comments UREA NITROGEN URINE (BEAKER) (test code = 538) 232 mg/dL Reference Range: No NormalsHEPATITIS PANEL, [id number] 20:39:00 Test Item Value Reference Range Comments HEPATITIS A IGM ANTIBODY (BEAKER) (test code = Nonreactive N onreactive 498) HEPATITIS B CORE IGM ANTIBODY (BEAKER) (test Nonreactive Non reactive code = 645) HEPATITIS C ANTIBODY (BEAKER) (test code = 367) Nonreactive Nonreactive HEPATITIS B SURFACE ANTIGEN (2) (BEAKER) (test Nonreactive N onreactive code = 2585) URINALYSIS W/ REFLEX URINE [id number] 20:12:00 Test Item Value Reference Range Comments COLOR (BEAKER) (test code = 470) Light Yellow CLARITY (BEAKER) (test code = 469) Hazy SPECIFIC GRAVITY UA (BEAKER) (test code = 468) 1.006 1 .001-1.035 PH UA (BEAKER) (test code = 467) 5.5 5.0-8.0 PROTEIN UA (BEAKER) (test code = 464) 30 mg/dL Negative GLUCOSE UA (BEAKER) (test code = 365) Negative Negative KETONES UA (BEAKER) (test code = 371) Negative Negative BILIRUBIN UA (BEAKER) (test code = 462) Negative Negative BLOOD UA (BEAKER) (test code = 461) Negative Negative NITRITE UA (BEAKER) (test code = 465) Negative Negative LEUKOCYTE ESTERASE UA (BEAKER) (test code = Trace Nega tive 466) UROBILINOGEN UA (BEAKER) (test code = 463) 0.2 mg/dL 0.2-1 .0 RBC UA (BEAKER) (test code = 519) < /HPF WBC UA (BEAKER) (test code = 520) 10 /HPF BACTERIA (BEAKER) (test code = 517) Rare MUCUS (BEAKER) (test code = 1574) Rare SQUAMOUS EPITHELIAL (BEAKER) (test code = 516) 5 /HPF AMORPHOUS CRYSTALS (BEAKER) (test code = 1584) Rare SOURCE(BEAKER) (test code = 2795) TROPONIN [id number] 19:15:00 Test Item Value Reference Range Comments TROPONIN I (BEAKER) (test code = 397) 0.03 ng/mL 0.00-0.03 Troponin I (TnI) levels [...] acute neurological disease, and persistent tachyarrhythmia.COMPREHENSIVE METABOLIC [id number] 19:15:00 Test Item Value Reference Range Comments TOTAL PROTEIN (BEAKER) 7.9 gm/dL 6.0-8.3 (test code = 770) ALBUMIN (BEAKER) (test 3.7 g/dL 3.5-5.0 code = 1145) ALKALINE PHOSPHATASE 89 U/L 40-150 (BEAKER) (test code = 346) BILIRUBIN TOTAL (BEAKER) 0.6 mg/dL 0.2-1.2 (test code = 377) SODIUM (BEAKER) (test code 133 meq/L 136-145 = 381) POTASSIUM (BEAKER) (test 4.6 meq/L 3.5-5.1 code = 379) CHLORIDE (BEAKER) (test 102 meq/L 98-107 code = 382) CO2 (BEAKER) (test code = 21 meq/L 22-29 355) BLOOD UREA NITROGEN 63 mg/dL 7-21 (BEAKER) (test code = 354) CREATININE (BEAKER) (test 3.74 mg/dL 0.57-1.25 code = 358) GLUCOSE RANDOM (BEAKER) 117 mg/dL 70-105 (test code = 652) CALCIUM (BEAKER) (test 8.6 mg/dL 8.4-10.2 code = 697) AST (SGOT) (BEAKER) (test 1805 U/L 5-34 code = 353) ALT (SGPT) (BEAKER) (test 1232 U/L 6-55 code = 347) EGFR (BEAKER) (test code = 13 mL/min/1.73 sq m E STIMATED GFR IS NOT 1092) ACCURATE CREA TININE CLEARANCE IN PRE DICTING GLOMERULAR FILTR ATION RATE. ESTIMATED GFR IS NOT APPLICABLE F OR DIALYSIS PATIENT S. CREATINE KINASE (CK)2018-10-16 19:13:00 Test Item Value Reference Range Comments CREATINE KINASE TOTAL (RADHAAKER) (test code = 380) 439 U/L 29-200 SALICYLATE [id number] 19:11:00 Test Item Value Reference Range Comments SALICYLATE LEVEL (OPAL) (test code = 764) < mg/dL 15.0 -30.0 Therapeutic Range: 15.0-30.0 mg/dLToxic: >30.0 mg/dL Lethal: >70.0 mg/dLACETAMINOPHEN [id number] 19:10:00 Test Item Value Reference Range Comments ACETAMINOPHEN LEVEL (OPAL) (test code = 344) < ug/mL 1 0.0-30.0 Therapeutic Range: 10.0-30.0 g/mLToxic Levels: >200.0 g/mLPROTHROMBIN [id number] 18:59:00 Test Item Value Reference Range Comments PROTIME (OPAL) (test code = 759) 16.7 seconds 11.9-14.2 INR (OPAL) (test code = 370) 1.4 <=5.9 Effective 09/13/2018: PT Reference Range ChangeNew: 11.9-14.2 Previous: 11.7- 14.7RECOMMENDED COUMADIN/WARFARIN INR THERAPY RANGESSTANDARD DOSE: 2.0-3.0 Includes: PROPHYLAXIS for venous thrombosis, systemic embolization; TREATMENT for venous thrombosis and/or pulmonary embolus.HIGH RISK: Target INR is2.5-3.5 for patients wiht mechanical heart valves.CBC W/PLT COUNT & AUTO [id number] 18:52:00 Test Item Value Reference Range Comments WHITE BLOOD CELL COUNT (BEAKER) (test code = 4.9 K/ L 3.5 -10.5 775) RED BLOOD CELL COUNT (BEAKER) (test code = 761) 2.42 M/ L 3.93-5.22 HEMOGLOBIN (BEAKER) (test code = 410) 7.2 GM/DL 11.2-15.7 HEMATOCRIT (BEAKER) (test code = 411) 22.7 % 34.1-44.9 MEAN CORPUSCULAR VOLUME (BEAKER) (test code = 93.8 fL 79 .4-94.8 753) MEAN CORPUSCULAR HEMOGLOBIN (BEAKER) (test code 29.8 pg 25.6-32.2 = 751) MEAN CORPUSCULAR HEMOGLOBIN CONC (BEAKER) (test 31.7 GM/DL 32.2-35.5 code = 752) RED CELL DISTRIBUTION WIDTH (BEAKER) (test code 15.3 % 11.7-14.4 = 412) PLATELET COUNT (BEAKER) (test code = 756) 166 K/CU MM 150-45 0 MEAN PLATELET VOLUME (BEAKER) (test code = 754) 11.6 fL 9.4-12.3 NUCLEATED RED BLOOD CELLS (BEAKER) (test code = 2 /100 WBC 0-0 413) NEUTROPHILS RELATIVE PERCENT (BEAKER) (test code 83 % = 429) LYMPHOCYTES RELATIVE PERCENT (BEAKER) (test code 6 % = 430) MONOCYTES RELATIVE PERCENT (BEAKER) (test code = 5 % 431) EOSINOPHILS RELATIVE PERCENT (BEAKER) (test code 2 % = 432) BASOPHILS RELATIVE PERCENT (BEAKER) (test code = 0 % 437) NEUTROPHILS ABSOLUTE COUNT (BEAKER) (test code = 4.02 K/ L 1.56-6.13 670) LYMPHOCYTES ABSOLUTE COUNT (BEAKER) (test code = 0.28 K/ L 1.18-3.74 414) MONOCYTES ABSOLUTE COUNT (BEAKER) (test code = 0.23 K/ L 0 .24-0.36 415) EOSINOPHILS ABSOLUTE COUNT (BEAKER) (test code = 0.11 K/ L 0.04-0.36 416) BASOPHILS ABSOLUTE COUNT (BEAKER) (test code = 0.01 K/ L 0 .01-0.08 417) IMMATURE GRANULOCYTES-RELATIVE PERCENT (BEAKER) 5 % 0-1 (test code = 2801) GLUCOMETER GLUCOSE- LAB USE [id number] 06:59:00 Test Item Value Reference Range Comments GLUCOMETER (test code = GMG) 219 mg/dL 70-100 DR YORK AWAREMeter ID: [id number] or: [id number] GLUCOMETER GLUCOSE- LAB USE [id number] 04:45:00 Test Item Value Reference Range Comments GLUCOMETER (test code = GMG) 212 mg/dL 70-100 Met er ID: [id number]: [id number] [address]ERE[address]
--- NOTE | 2019-08-15 14:04 | RAD REPORT ---
EXAM DESCRIPTION: RAD - Chest Single View - 08/15/2019 1:58 pm CLINICAL HISTORY: DYSPNEA COMPARISON: June 25 TECHNIQUE: AP portable chest image was obtained 08/15/2019 1:58 pm . FINDINGS: Lung volumes are reduced compared to the prior study. No focal lung parenchymal process. O verall interstitial pattern not clearly different. Heart and vasculature are normal. No measurable pl eural effusion and no pneumothorax. No acute bony abnormality seen. No acute aortic findings suspecte d. IMPRESSION: No acute cardiopulmonary process. No significant interval change.
[2019-08-15 14:28] LABS: Absolute Lymphocytes (CBC) 1.5 K/uL (0.7-4.9); Basophils % 0.8 % (0-1.3); Hematocrit 28.6 % (36.0-45.0); Lymphocytes % 23.5 % (15.3-44.8); Protime INR 0.97; RBC Red Blood Cell Count 3.27 M/uL (3.86-4.86)
[2019-08-15 14:43] LABS: ALT/SGPT 24 U/L (12-78); AST/SGOT 18 U/L (15-37); Albumin 3.8 g/dL (3.4-5.0); Alkaline Phosphatase 58 U/L (45-117); BUN Blood Urea Nitrogen 43 mg/dL (7-18); Bicarbonate 27 mmol/L (21-32); Bilirubin Direct < 0.1 mg/dL (0-0.2); Bilirubin Total 0.3 mg/dL (0.2-1.0); Glucose Level 73 mg/dL (74-106); Magnesium 1.9 mg/dL (1.8-2.4); NT PRO-BNP 182 pg/mL (<125); Protein, Total 9.7 g/dL (6.4-8.2); Sodium Level 137 mmol/L (136-145); Troponin (Emerg Dept Use Only) < 0.02 ng/mL (0.0-0.045)
--- NOTE | 2019-08-15 14:59 | ER ---
Nurse's Notes [facility] Name: Emily Barbour Age: 48 yrs Sex: Female : 1970 Arrival Date: 08/15/2019 Time: 13:35 Bed 6 Private MD: Jean-Paul Cameron Diagnosis: Chronic kidney disease (CKD);Weakness Presentation: 08/14 13:42 Chief complaint: Patient states: Reports feeling weak and pale for 4 days. Believes she ll1 is anemic and has kidney failure. Coronavirus screen: Proceed with normal triage. Patient denies a cough. Patient denies shortness of breath or difficulty breathing. Patient denies measured and/or subjective temperature greater than 100.4F prior to today's visit. Patient denies travel on a cruise ship or to a country the [facility] currently lists as an affected area. Patient denies contact with known and/or suspected case of COVID-19. Ebola Screen: Patient denies travel to an Ebola-affected area in the 21 days before illness onset. Initial Sepsis Screen: Does the patient meet any 2 criteria? No. Patient's initial sepsis screen is negative. Does the patient have a suspected source of infection? No. Patient's initial sepsis screen is negative. Risk Assessment: Do you want to hurt yourself or someone else? Patient reports no desire to harm self or others. Onset of symptoms was August 11, 2019. 13:42 Method Of Arrival: Ambulatory ll1 13:42 Acuity: SALENA 3 ll1 Historical: - Allergies: 13:44 Benadryl; ll1 13:44 metformin; ll1 13:44 Tradjenta; ll1 13:44 shrimp; ll1 - PMHx: 13:44 Diabetes - IDDM; Tendonitis in Elbows; Renal Disease; High Cholesterol; Hypertension; ll1 Anemia; - Social history:: Smoking status: Patient denies any tobacco usage or history of. Patient/guardian denies using alcohol, street drugs, tobacco products. Screenin:16 Abuse screen: Denies threats or abuse. Nutritional screening: No deficits noted. Tuberculosis screening: No symptoms or risk factors identified. Fall Risk None identified. Assessment: 14:13 General: Appears in no apparent distress. Behavior is cooperative, appropriate for age. General: Reports fatigue for 2-3 days, Denies fever. Pain: Denies pain. Neuro: Level of Consciousness is awake, alert, Oriented to person, place, time, situation. Cardiovascular: Heart tones S1 S2 present Capillary refill < 3 seconds Patient's skin is warm and dry. Respiratory: Reports shortness of breath on exertion Airway is patent Respiratory effort is even, unlabored, Respiratory pattern is regular, symmetrical, Breath sounds are clear bilaterally. GI: No signs and/or symptoms were reported involving the gastrointestinal system. Bowel sounds present X 4 quads. : No signs and/or symptoms were reported regarding the genitourinary system. : Reports renal failure. EENT: No signs and/or symptoms were reported regarding the EENT system. Derm: No signs and/or symptoms reported regarding the dermatologic system. Musculoskeletal: No signs and/or symptoms reported regarding the musculoskeletal system. Vital Signs: 13:42 BP 137 / 101; Pulse 89; Resp 18; Temp 98.8; Pulse Ox 98% ; Pain 7/10; ll1 ED Course: 13:35 Patient arrived in ED. mr 13:35 Jean-Paul Cameron DO is Private Physician. mr 13:37 [facility]C [facility] kb 13:37 Ty Cano MD is Attending Physician. kb 13:43 Triage completed. ll1 13:44 Arm band placed on Patient placed in an exam room, on a stretcher. ll1 13:58 XRAY Chest (1 view) In Process Unspecified. EDMS 14:15 Inserted saline lock: 22 gauge in left antecubital area, using aseptic technique. ah 14:15 Missed attempt(s): 20 gauge in right antecubital area. Bleeding controlled, band aid ah applied, catheter tip intact. 14:16 Patient has correct armband on for positive identification. Bed in low position. Call light in reach. Side rails up X 1. 14:16 quality assurance monitor body on. Pulse ox on. NIBP on. ah 14:17 Viktoria Keith, RN is Primary Nurse. 14:19 Warm blanket given. 5 14:19 EKG done, by ED staff, reviewed by Ty Cano MD. 5 14:58 Jean-Paul Cameron DO is Referral Physician. kb 15:14 No provider procedures requiring assistance completed. IV discontinued, intact, ah Pressure dressing applied. Administered Medications: 15:09 Drug: Bentyl 20 mg Route: PO; 15:14 Follow up: Response: Medication administered at discharge. Outcome: 14:58 Discharge ordered by . erma 15:13 Discharged to home ambulatory. 15:13 Condition: good 15:13 Discharge instructions given to patient, Instructed on discharge instructions, follow up and referral plans. Demonstrated understanding of Prescriptions given X 1. 15:16 Patient left the ED. Signatures: Dispatcher [employer] EDMagda Padron, PAOLA-C SAP PAYROLL CONSULTANT-Amanda Gautam, Torrie [facility] Viktoria Keith, RN RN Tammy Guardado RN RN ll1
--- NOTE | 2019-08-15 15:00 | EDPHYS ---
Physician Documentation [facility] Name: Emily Barbour Age: 48 yrs Sex: Female : 1970 Arrival Date: 08/15/2019 Time: 13:35 Bed 6 Private MD: Jean-Paul Cameron ED Physician Ty Cano HPI: 08/14 13:44 This 48 yrs old Female presents to ER via Ambulatory with complaints of kb Anemia. 13:44 The patient presents with generalized weakness. Onset: The symptoms/episode kb began/occurred 4 day(s) ago. Context: occurred at home, just prior to the episode the patient experienced no apparent symptoms. Modifying factors: The symptoms are alleviated by nothing, the symptoms are aggravated by nothing. Associated signs and symptoms: Pertinent positives: headache, shortness of breath, Pertinent negatives: abdominal pain, agitation, ataxia, blurred vision, chest pain, combativeness, confusion, diaphoresis, focal weakness, head injury, nausea, near-syncope, numbness, palpitations, , seizure, syncope, tingling, vomiting. Severity of symptoms: At their worst the symptoms were mild moderate in the emergency department the symptoms are unchanged. Patient's baseline: Neuro: alert and fully oriented, Motor: no deficits, Ambulation: walks without assistance, Speech: normal. The patient has experienced similar episodes in the past. The patient has not recently seen a physician. Pt reports weakness, headache, shortness of breath and pale skin. Reports she has had anemia several times before due to her kidney's failing and she thinks that is what is going on now.. Historical: - Allergies: 13:44 Benadryl; ll1 13:44 metformin; ll1 13:44 Tradjenta; ll1 13:44 shrimp; ll1 - PMHx: 13:44 Diabetes - IDDM; Tendonitis in Elbows; Renal Disease; High Cholesterol; Hypertension; ll1 Anemia; - Social history:: Smoking status: Patient denies any tobacco usage or history of. Patient/guardian denies using alcohol, street drugs, tobacco products. ROS: 13:43 Constitutional: Negative for fever, chills, and weight loss, ENT: Negative for injury, kb pain, and discharge, Neck: Negative for injury, pain, and swelling, Cardiovascular: Negative for chest pain, palpitations, and edema, Abdomen/GI: Negative for abdominal pain, nausea, vomiting, diarrhea, and constipation, Back: Negative for injury and pain, MS/Extremity: Negative for injury and deformity, Skin: Negative for injury, rash, and discoloration. 13:43 Respiratory: Positive for dyspnea on exertion, shortness of breath, Negative for cough, hemoptysis, orthopnea, pleurisy, sputum production, wheezing. 13:43 Neuro: Positive for headache, weakness. Exam: 13:43 Constitutional: This is a well developed, well nourished patient who is awake, alert, kb and in no acute distress. Head/Face: Normocephalic, atraumatic. ENT: Nares patent. No nasal discharge, no septal abnormalities noted. Tympanic membranes are normal and external auditory canals are clear. Oropharynx with no redness, swelling, or masses, exudates, or evidence of obstruction, uvula midline. Mucous membranes moist. Neck: Trachea midline, no thyromegaly or masses palpated, and no cervical lymphadenopathy. Supple, full range of motion without nuchal rigidity, or vertebral point tenderness. No Meningismus. Chest/axilla: Normal chest wall appearance and motion. Nontender with no deformity. No lesions are appreciated. Cardiovascular: Regular rate and rhythm with a normal S1 and S2. No gallops, murmurs, or rubs. Normal PMI, no JVD. No pulse deficits. Respiratory: Lungs have equal breath sounds bilaterally, clear to auscultation and percussion. No rales, rhonchi or wheezes noted. No increased work of breathing, no retractions or nasal flaring. Abdomen/GI: Soft, non-tender, with normal bowel sounds. No distension or tympany. No guarding or rebound. No evidence of tenderness throughout. Back: No spinal tenderness. No costovertebral tenderness. Full range of motion. Skin: Warm, dry with normal turgor. Normal color with no rashes, no lesions, and no evidence of cellulitis. MS/ Extremity: Pulses equal, no cyanosis. Neurovascular intact. Full, normal range of motion. Neuro: Awake and alert, GCS 15, oriented to person, place, time, and situation. Cranial nerves II-XII grossly intact. Motor strength 5/5 in all extremities. Sensory grossly intact. Cerebellar exam normal. Normal gait. 13:43 Constitutional: The patient appears pale. 14:21 ECG was reviewed by the Attending Physician. kb Vital Signs: 13:42 BP 137 / 101; Pulse 89; Resp 18; Temp 98.8; Pulse Ox 98% ; Pain 7/10; ll1 MDM: 13:37 Patient medically screened. kb 13:43 Data reviewed: vital signs, nurses notes. Data interpreted: Pulse oximetry: on room air kb is 98 %. Interpretation: normal. 14:56 Counseling: I had a detailed discussion with the patient and/or guardian regarding: the kb historical points, exam findings, and any diagnostic results supporting the discharge/admit diagnosis, lab results, radiology results, the need for outpatient follow up, a family practitioner, to return to the emergency department if symptoms worsen or persist or if there are any questions or concerns that arise at home. ED course: Pt denies any pain, but reports cramps ("like elio horses") in her abd. Pt has appt with Dr Cameron on Tuesday and will keep appt. I reviewed old records. Creat was 4.11 last month, so improved at this time. . 08/14 13:42 Order name: Basic Metabolic Panel; Complete Time: 14:50 kb 08/14 13:42 Order name: CBC with Diff; Complete Time: 14:30 kb 08/14 13:42 Order name: LFT's; Complete Time: 14:50 kb 08/14 13:42 Order name: Magnesium; Complete Time: 14:50 kb 08/14 13:42 Order name: NT PRO-BNP; Complete Time: 14:50 kb 08/14 13:42 Order name: PT-INR; Complete Time: 14:39 kb 08/14 13:42 Order name: Troponin (emerg Dept Use Only); Complete Time: 14:50 kb 08/14 13:42 Order name: XRAY Chest (1 view); Complete Time: 14:10 kb 08/14 13:42 Order name: EKG; Complete Time: 13:43 kb 08/14 13:42 Order name: Cardiac monitoring; Complete Time: 14:12 kb 08/14 13:42 Order name: EKG - Nurse/Tech; Complete Time: 14:12 kb 08/14 13:42 Order name: IV Saline Lock; Complete Time: 14:11 kb 08/14 13:42 Order name: Type And Screen; Complete Time: 15:22 kb 08/14 13:42 Order name: Labs collected and sent; Complete Time: 14:11 kb 08/14 13:42 Order name: O2 Per Protocol; Complete Time: 14:11 kb 08/14 13:42 Order name: O2 Sat Monitoring; Complete Time: 14:12 kb EC:21 Rate is 81 beats/min. Rhythm is regular. Left axis deviation noted. MI interval is kb normal at 128 msec. QRS interval is normal at 122 msec. QT interval is normal at 444 msec. Administered Medications: 15:09 Drug: Bentyl 20 mg Route: PO; 15:14 Follow up: Response: Medication administered at discharge. Disposition: 17:30 Co-signature as Attending Physician, Ty Cano MD I agree with the assessment and kdr plan of care. Disposition: 08/15/19 14:58 Discharged to Home. Impression: Chronic kidney disease (CKD), Weakness. - Condition is Stable. - Discharge Instructions: Weakness, Ifke-sn-Undu. - Prescriptions for Bentyl 20 mg Oral Tablet - take 1 tablet by ORAL route every 6 hours As needed; 20 tablet. - Medication Reconciliation Form, Thank You Letter, Antibiotic Education, Prescription Opioid Use form. - Follow up: Emergency Department; When: As needed; Reason: Worsening of condition. Follow up: Jean-Paul Cameron DO; When: 2 - 3 days; Reason: Recheck today's complaints, Continuance of care, Re-evaluation by your physician. Signatures: Dispatcher [employer] EDAR Magda Dempsey, BRUSH OR BROOM CUTTER-C BRUSH OR BROOM CUTTER-CkTy Lombardo MD MD [facility] Viktoria Keith, RN RN Tammy Beltran RN RN ll1 Corrections: (The following items were deleted from the chart) 15:16 14:58 08/15/2019 14:58 Discharged to Home. Impression: Chronic kidney disease (CKD); Weakness. Condition is Stable. Forms are Medication Reconciliation Form, Thank You Letter, Antibiotic Education, Prescription Opioid Use. Follow up: Emergency Department; When: As needed; Reason: Worsening of condition. Follow up: Jean-Paul Cameron; When: 2 - 3 days; Reason: Recheck today's complaints, Continuance of care, Re-evaluation by your physician. kb
[2019-08-15] MEDS ORDERED: DICYCLOMINE HCL 10 MG CAP ONE (15:07)
[2019-08-15 15:40] VITALS: TEMP 97.4
[2019-08-15 15:41] VITALS: BP 216/90; O2SAT 96
--- NOTE | 2019-08-15 18:06 | EKG ---
Test Date: 2019-08-15 Test Time: 14:12:21 Chief Strategy Officer: MERCEDES MEASUREMENT RESULTS: Intervals: Rate: 81 CA: 128 QRSD: 122 QT: 444 QTc: 515 Buhl: P: 38 CA: 128 QRS: -84 T: 30 INTERPRETIVE STATEMENTS: Normal sinus rhythm Left axis deviation Right bundle branch block Abnormal ECG Compared to ECG 06/26/2019 14:41:36 Left-axis deviation now present Left anterior fascicular block no longer present Bifascicular block no longer present Electronically Signed On 08-15-19 18:06:15 CDT by Ankit Simmons
== END 2019-08-15 15:16 | disposition home or self-care (01) ==
LOC: ER 13:32
DX: R53.1 Weakness (principal); N18.9 Chronic kidney disease, unspecified; Z88.8 Allergy status to other drugs, medicaments and biological substances; Z91.013 Allergy to seafood; Z79.4 Long term (current) use of insulin
CPT/HCPCS: 36415; 71045; 80048; 80076; 83735; 83880; 84484; 85025; 85610; 86850; 86900; 86901; 93005; 99284

== ENCOUNTER 2019-09-23 21:18 | Emergency (ER) | payer BC ==
--- OUTSIDE RECORDS SUMMARY | 2019-09-23 21:23 | XMS REPORT | Clinical Summary ---
:1970 Author Organization [facility] [employer] Address [address] [place] [address] Care Team Providers Name Role Phone Unavailable Primary Care Provider Unavailable Allergies Active Allergy Reactions Severity Noted Date Comments Eigzqgfct-Au-Nkhcwazetpszx 10/10/2017 Metformin 10/10/2017 Linagliptin 10/10/2017 Medications Medication [...] mouth daily. insulin Inject 40 Units 0 Acti ve glargine,hum.rec.anlog under the skin (TOUJEO SOLOSTAR U-300 [...] Comments CERVICAL CANCER SCREENING 10/14/1991 INFLUENZA VACCINE 11/17/2019 Results Not on fileafter 09/22/2018 Advance Directives For more information, please contact: [phone] Type Date Recorded Patient Fourth Mate Explanati on Advance Directives, Living Will and Medical Power of Manager Cosmetics
--- OUTSIDE RECORDS SUMMARY | 2019-09-23 21:25 | XMS REPORT | Clinical Summary ---
:1970 Author Organization [facility] Address [address] [place] [address] Care Team Providers Name Role Phone Pcp Primary Care Provider Unavailable Allergies Active Allergy Reactions Severity Noted Date Comments Diphenhydramine Hcl Rash Low 10/16/2018 Metformin Other (See Comments) 10/16/2018 Advised not to take cause of kidney s Linagliptin Diarrhea, Nausea And 10/16/2018 Loss of [...] Take 1 tablet 90 tablet 3 10/22/2018 0 10/22/2019 Active (81 mg total) by mouth daily. allopurinol (ZYLOPRIM) Take 1 tablet 30 tablet 0 10/22/2018 Active 100 MG tablet (100 mg total) by mouth daily. furosemide (LASIX) 40 Take 1 tablet 30 tablet 0 10/22/201809/2019 Active MG tablet (40 mg total) by mouth daily. NIFEdipine (ADALAT CC) Take 1 tablet 90 tablet 0 10/22/2018 Active 30 MG 24 hr tablet (30 mg total) by mouth daily. Active Problems Problem Noted Date Splenomegaly 10/23/2018 Obesity, Class II, BMI 35-39.9 10/17/2018 Elevated liver enzymes 10/16/2018 Acute respiratory distress 10/16/2018 Acute congestive heart failure 10/16/2018 Stage 4 chronic kidney disease 10/16/2018 Controlled type 2 diabetes mellitus with stage 4 chron ic kidney disease, 10/16/2018 with long-term current use of insulin SHREE (obstructive sleep apnea) 10/16/2018 Morbid obesity 10/16/2018 Encounters Date Type Specialty Care Team Description 10/16/2018 - Hospital Encounter Cardiology Belinda Marin Acute respiratory distress (Primary Dx); 10/21/2018 MD Farhat Elevated liver enzymes; Rusty Moreno MD Screening for malignant neoplasm; Jett, [place] Anemia, unspec ified type; MD Anabell Hepatosplenomeg vicky; OMAR (acute kidn ey injury) (HCC); Immunity status testing; Metabolic syndr ome; Obesity, Class I, BMI 30-34.9; Acute congestiv e heart failure, unspecified heart failure type (HCC); Obesity, Class II, BMI 35-39.9; SHREE (obstructiv e sleep apnea); Stage 4 chronic kidney disease (HCC) 10/16/2018 Orders Only General Internal Medicine after 09/22/2018 Family History Medical History Relation Name Comments [...] six or more drinks on one occasion? No t asked Sex Assigned at Date Recorded Not [...] 101.2 kg (223 lb 1.6 oz) 10/21/2018 8:5 5 AM CDT Height 165.1 cm (5' 5") 10/16/2018 6:00 PM CDT Body Mass Index 37.13 10/21/2018 8:55 AM CDT Plan of Treatment Not on file Procedures Procedure Name Priority Date/Time Associated Comments Diagnosis RHYTHM STRIP - SCAN 10/23/2018 1:40 PM CDT POCT-GLUCOSE METER Routine 10/21/2018 8:07 Resul ts for this AM CDT procedure are i n the results section. MAGNESIUM Routine 10/21/2018 5:03 Results for this AM CDT procedure are i n the results section. BASIC METABOLIC PANEL Routine 10/21/2018 5:03 Re sults for this (7) AM CDT procedure are i n the results section. FERRITIN Routine 10/21/2018 5:03 Results for this AM CDT procedure are i n the results section. LACTATE DEHYDROGENASE Routine 10/21/2018 5:03 Re sults for this (LDH) AM CDT procedure are i n the results section. HEPATIC FUNCTION PANEL Routine 10/21/2018 5:03 R esults for this AM CDT procedure are i n the results section. HEPATITIS B PANEL Routine 10/21/2018 5:03 Result s for this AM CDT procedure are i n the results section. HEPATITIS A PANEL Routine 10/21/2018 5:03 Result s for this AM CDT procedure are i n the results section. POCT-GLUCOSE METER Routine 10/20/2018 9:07 Resul ts for this PM CDT procedure are i n the results section. POCT-GLUCOSE METER Routine 10/20/2018 6:15 Resul ts for this PM CDT procedure are i n the results section. FLOW CYTOMETRY Routine 10/20/2018 11:51 Results f or this AM CDT procedure are i n the results section. FLOW CYTOMETRY Routine 10/20/2018 11:51 Results f or this REQUISITION AM CDT procedure are i n the results section. CHROMOSOMES CANCER STUDY Routine 10/20/2018 11:51 AM CDT BONE MARROW PROCESS. Routine 10/20/2018 11:50 Res ults for this AM CDT procedure are i n the results section. POCT-GLUCOSE METER Routine 10/20/2018 11:29 Resul ts for this AM CDT procedure are i n the results section. CT ERIK 10/20/2018 10:57 Results for this BIOPSY/ASPIRATION/INJECT AM CDT pro cedure are in ION the results section. BONE MARROW EXAM Routine 10/20/2018 10:30 Results for this AM CDT procedure are i n the results section. (CELLAVISION MANUAL Routine 10/20/2018 5:15 Resu lts for this DIFF) AM CDT procedure are i n the results section. CBC W/PLT COUNT & AUTO Routine 10/20/2018 5:15 R esults for this DIFFERENTIAL AM CDT procedure are i n the results section. MAGNESIUM Routine 10/20/2018 5:15 Results for this AM CDT procedure are i n the results section. BASIC METABOLIC PANEL Routine 10/20/2018 5:15 Re sults for this (7) AM CDT procedure are i n the results section. PHOSPHORUS Routine 10/20/2018 5:15 Results for this AM CDT procedure are i n the results section. PT/APTT Routine 10/20/2018 5:15 Results for this AM CDT procedure are i n the results section. CBC W/PLT COUNT & AUTO Routine 10/20/2018 5:15 R esults for this DIFFERENTIAL AM CDT procedure are i n the results section. POCT-GLUCOSE METER Routine 10/19/2018 9:25 Resul ts for this PM CDT procedure are i n the results section. TRANSFUSION SERVICE 10/19/2018 5:50 REPORT - SCAN PM CDT POCT-GLUCOSE METER Routine 10/19/2018 5:26 Resul ts for this PM CDT procedure are i n the results section. POCT-GLUCOSE METER Routine 10/19/2018 8:59 Resul ts for this AM CDT procedure are i n the results section. (CELLAVISION MANUAL Routine 10/19/2018 5:30 Resu lts for this DIFF) AM CDT procedure are i n the results section. CBC W/PLT COUNT & AUTO Routine 10/19/2018 5:30 R esults for this DIFFERENTIAL AM CDT procedure are i n the results section. CBC W/PLT COUNT & AUTO Routine 10/19/2018 5:30 R esults for this DIFFERENTIAL AM CDT procedure are i n the results section. COMPREHENSIVE METABOLIC Routine 10/19/2018 5:30 Results for this PANEL AM CDT procedure are i n the results section. CALCIUM, IONIZED Routine 10/19/2018 5:30 Results for this AM CDT procedure are i n the results section. URIC ACID Routine 10/19/2018 5:30 Results for this AM CDT procedure are i n the results section. PHOSPHORUS Routine 10/19/2018 5:30 Results for this AM CDT procedure are i n the results section. CALCIUM, IONIZED Routine 10/19/2018 5:30 Results for this AM CDT procedure are i n the results section. B-TYPE NATRIURETIC Routine 10/19/2018 5:30 Resul ts for this FACTOR (BNP) AM CDT procedure are i n the results section. PROTHROMBIN TIME/INR Routine 10/19/2018 5:30 Res ults for this AM CDT procedure are i n the results section. MAGNESIUM Routine 10/19/2018 5:30 Results for this AM CDT procedure are i n the results section. HEPATIC FUNCTION PANEL Routine 10/19/2018 5:30 R esults for this AM CDT procedure are i n the results section. PREPARE LEUKO-REDUCED Routine 10/18/2018 11:54 Re sults for this RBC PM CDT procedure are i n the results section. POCT-GLUCOSE METER Routine 10/18/2018 9:18 Resul ts for this PM CDT procedure are i n the results section. POCT-GLUCOSE METER Routine 10/18/2018 5:55 Resul ts for this PM CDT procedure are i n the results section. TRANSFUSION SERVICE 10/18/2018 5:50 REPORT - SCAN PM CDT CT ABDOMEN/PELVIS Routine 10/18/2018 3:23 Result s for this WITHOUT IV CONTRAST PM CDT procedur e are in the results section. CT CHEST WITHOUT IV Routine 10/18/2018 3:23 Resu lts for this CONTRAST PM CDT procedure are i n the results section. RESPIRATORY PANEL SLHS Routine 10/18/2018 12:37 R esults for this PM CDT procedure are i n the results section. RAPID INFLUENZA A&B Routine 10/18/2018 12:37 Resu lts for this SCREEN PM CDT procedure are i n the results section. [id number] AP Routine 10/18/2018 12:07 PHENOTYP PM CDT D-DIMER Routine 10/18/2018 12:07 Results for this PM CDT procedure are i n the results section. HAPTOGLOBIN Routine 10/18/2018 12:06 Results for this PM CDT procedure are i n the results section. PROTEIN ELECTROPHORESIS, AP Routine 10/18/2018 12:06 Results for this SERUM PM CDT procedure are i n the results section. RHEUMATOID FACTOR AB, Routine 10/18/2018 12:06 Re sults for this REFLEX TO TITER PM CDT procedure ar e in the results section. HIV-1 ANTIGEN WITH Routine 10/18/2018 12:06 Resul ts for this HIV-1/2 ANTIBODY PM CDT procedure a re in the results section. CMV PCR, QUANTITATIVE Routine 10/18/2018 12:06 Re sults for this PM CDT procedure are i n the results section. EBV VIRAL LOAD Routine 10/18/2018 12:06 Results f or this PM CDT procedure are i n the results section. POCT-GLUCOSE METER Routine 10/18/2018 10:43 Resul ts for this AM CDT procedure are i n the results section. ANGELES TITER AND PATTERN Routine 10/18/2018 9:43 Re sults for this AM CDT procedure are i n the results section. ANTI-NUCLEAR ANTIBODY Routine 10/18/2018 9:43 Re sults for this (ANGELES) AM CDT procedure are i n the results section. ALPHA FETOPROTEIN (AFP), Routine 10/18/2018 9:42 Results for this TUMOR MARKER AM CDT procedure are i n the results section. TISSUE TRANSGLUTAMINASE Routine 10/18/2018 9:42 Results for this ABS,IGG AND IGA AM CDT procedure ar e in the results section. IRON, TIBC, % SAT. Routine 10/18/2018 9:42 Resul ts for this (WITHOUT FERRITIN) AM CDT procedure are in the results section. FERRITIN Routine 10/18/2018 9:42 Results for this AM CDT procedure are i n the results section. CERULOPLASMIN Routine 10/18/2018 9:42 Results fo r this AM CDT procedure are i n the results section. ACTIN (SMOOTH MUSCLE) Routine 10/18/2018 9:42 Re sults for this ANTIBODY, IGG AM CDT procedure are in the results section. ANTI-MITOCHONDRIAL AB, Routine 10/18/2018 9:42 R esults for this REFLEX TO TITER AM CDT procedure ar e in the results section. POCT-GLUCOSE METER Routine 10/18/2018 8:52 Resul ts for this AM CDT procedure are i n the results section. (CELLAVISION MANUAL Routine 10/18/2018 5:42 Resu lts for this DIFF) AM CDT procedure are i n the results section. CBC W/PLT COUNT & AUTO Routine 10/18/2018 5:42 R esults for this DIFFERENTIAL AM CDT procedure are i n the results section. RETICULOCYTE COUNT Routine 10/18/2018 5:42 Resul ts for this AM CDT procedure are i n the results section. TRIGLYCERIDES Routine 10/18/2018 5:42 Results fo r this AM CDT procedure are i n the results section. CBC W/PLT COUNT & AUTO Routine 10/18/2018 5:42 R esults for this DIFFERENTIAL AM CDT procedure are i n the results section. PHOSPHORUS Routine 10/18/2018 5:42 Results for this AM CDT procedure are i n the results section. CALCIUM, IONIZED Routine 10/18/2018 5:42 Results for this AM CDT procedure are i n the results section. PROTHROMBIN TIME/INR Routine 10/18/2018 5:42 Res ults for this AM CDT procedure are i n the results section. MAGNESIUM Routine 10/18/2018 5:42 Results for this AM CDT procedure are i n the results section. HEPATIC FUNCTION PANEL Routine 10/18/2018 5:42 R esults for this AM CDT procedure are i n the results section. BASIC METABOLIC PANEL Routine 10/18/2018 5:42 Re sults for this (7) AM CDT procedure are i n the results section. EOSINOPHIL SMEAR, URINE Routine 10/18/2018 5:42 Results for this AM CDT procedure are i n the results section. POCT-GLUCOSE METER Routine 10/17/2018 9:52 Resul ts for this PM CDT procedure are i n the results section. ECHOCARDIOGRAM REPORT - 10/17/2018 9:11 SCAN PM CDT XR CHEST 1 VIEW STAT 10/17/2018 6:00 Results for this PORTABLE/BEDSIDE PM CDT procedure a re in the results section. HEREDITARY Routine 10/17/2018 4:13 Results for this HEMOCHROMATOSIS DNA PM CDT procedur e are in the results section. FIBRINOGEN Routine 10/17/2018 4:13 Results for this PM CDT procedure are i n the results section. LACTATE DEHYDROGENASE Routine 10/17/2018 4:13 Re sults for this (LDH) PM CDT procedure are i n the results section. FERRITIN Routine 10/17/2018 4:13 Results for this PM CDT procedure are i n the results section. TRANSFUSE LEUKO-REDUCED Routine 10/17/2018 3:56 RED BLOOD CELLS PM CDT POCT-GLUCOSE METER Routine 10/17/2018 12:44 Resul ts for this PM CDT procedure are i n the results section. NM LUNG SCAN (V/Q) STAT 10/17/2018 10:19 Resul ts for this AM CDT procedure are i n the results section. ABORH, MANUAL STAT 10/17/2018 8:28 Results fo r this AM CDT procedure are i n the results section. POCT-GLUCOSE METER Routine 10/17/2018 8:27 Resul ts for this AM CDT procedure are i n the results section. TYPE AND SCREEN, Routine 10/17/2018 8:06 Results for this AUTOMATED AM CDT procedure are i n the results section. US PELVIS LIMITED Routine 10/17/2018 7:37 Result s for this AM CDT procedure are i n the results section. US ABDOMINAL WITH Routine 10/17/2018 7:37 Result s for this DOPPLER AM CDT procedure are i n the results section. CBC W/PLT COUNT & AUTO Routine 10/17/2018 5:17 R esults for this DIFFERENTIAL AM CDT procedure are i n the results section. CBC W/PLT COUNT & AUTO Routine 10/17/2018 5:17 R esults for this DIFFERENTIAL AM CDT procedure are i n the results section. URIC ACID Routine 10/17/2018 5:17 Results for this AM CDT procedure are i n the results section. COMPLEMENT COMPONENT C4 Routine 10/17/2018 5:17 Results for this AM CDT procedure are i n the results section. COMPLEMENT COMPONENT C3 Routine 10/17/2018 5:17 Results for this AM CDT procedure are i n the results section. VITAMIN B12 AND FOLATE Routine 10/17/2018 5:17 R esults for this AM CDT procedure are i n the results section. FERRITIN Routine 10/17/2018 5:17 Results for this AM CDT procedure are i n the results section. IRON, TIBC, % SAT. Routine 10/17/2018 5:17 Resul ts for this (WITHOUT FERRITIN) AM CDT procedure are in the results section. PROTHROMBIN TIME/INR Routine 10/17/2018 5:17 Res ults for this AM CDT procedure are i n the results section. MAGNESIUM Routine 10/17/2018 5:17 Results for this AM CDT procedure are i n the results section. LIPID PANEL Routine 10/17/2018 5:17 Results for this AM CDT procedure are i n the results section. HEPATIC FUNCTION PANEL Routine 10/17/2018 5:17 R esults for this AM CDT procedure are i n the results section. BASIC METABOLIC PANEL Routine 10/17/2018 5:17 Re sults for this (7) AM CDT procedure are i n the results section. TROPONIN I Routine 10/17/2018 12:39 Results for this AM CDT procedure are i n the results section. ECG 12-LEAD Routine 10/16/2018 11:55 PM CDT Procedure Note - Interface, External Ris In - 10/16/2018 11:56 PM CDT Ventricular Rate 85 BPM Atrial Rate 85 BPM P-R Interval 164 ms QRS Duration 156 ms Q-T Interval 428 ms QTC Calculation(Bazett) 509 ms P Matthews 50 degrees R Matthews -71 degrees T Matthews 35 degrees Normal sinus rhythm Right bundle branch block Left anterior fascicular blo ck Bifascicular block Abnormal ECG No previous ECGs available ECG 12-LEAD Routine 10/16/2018 11:55 PM CDT Resu lts for this procedure are i n the results section . VENOUS DOPPLER LEGS Routine 10/16/2018 11:21 PM CDT Results for this BILATERAL procedure are i n the results section . POCT-GLUCOSE METER Routine 10/16/2018 10:07 PM CDT Results for this procedure are i n the results section . 2D ECHO W/ DOPPLER Routine 10/16/2018 9:34 PM CDT Results for this (CW/PW/COLOR) procedure are in the results section . CHLORIDE, RANDOM URINE Routine 10/16/2018 9:04 PM CDT Results for this procedure are i n the results section . PROTEIN, RANDOM URINE Routine 10/16/2018 9:04 PM CDT Results for this procedure are i n the results section . OSMOLALITY, URINE Routine 10/16/2018 9:04 PM CDT Results for this procedure are i n the results section . URINALYSIS W/ MICROSCOPIC Routine 10/16/2018 9:04 PM CDT Results for this procedure are i n the results section . UREA NITROGEN, RANDOM URINE Routine 10/16/2018 6:47 PM CDT Results for this procedure are i n the results section . CREATININE, RANDOM URINE Routine 10/16/2018 6:47 PM CDT Results for this procedure are i n the results section . SODIUM, RANDOM URINE Routine 10/16/2018 6:47 PM CDT Results for this procedure are i n the results section . URINALYSIS W/ REFLEX URINE Routine 10/16/2018 6:47 PM CDT Results for this CULTURE procedure are i n the results section . URINE CULTURE Routine 10/16/2018 6:47 PM CDT Res ults for this procedure are i n the results section . HEMOGLOBIN A1C AP Routine 10/16/2018 6:26 PM CDT Re sults for this procedure are i n the results section . CBC W/PLT COUNT & AUTO Routine 10/16/2018 6:25 PM CDT Results for this DIFFERENTIAL procedure are i n the results section . CREATINE KINASE (CK) Routine 10/16/2018 6:25 PM CDT Results for this procedure are i n the results section . HEPATITIS PANEL, ACUTE Routine 10/16/2018 6:25 PM CDT Results for this procedure are i n the results section . SALICYLATE LEVEL Routine 10/16/2018 6:25 PM CDT Results for this procedure are i n the results section . ACETAMINOPHEN LEVEL Routine 10/16/2018 6:25 PM CDT Results for this procedure are i n the results section . TROPONIN I Routine 10/16/2018 6:25 PM CDT Resu lts for this procedure are i n the results section . PROTHROMBIN TIME/INR Routine 10/16/2018 6:25 PM CDT Results for this procedure are i n the results section . CBC W/PLT COUNT & AUTO Routine 10/16/2018 6:25 PM CDT Results for this DIFFERENTIAL procedure are i n the results section . COMPREHENSIVE METABOLIC Routine 10/16/2018 6:25 PM CDT Results for this PANEL procedure are i n the results section . after 09/22/2018 Results RHYTHM STRIP - SCAN (10/23/2018 1:40 PM CDT) Narrative Performed At This result has an attachment that is no t available. POC-Glucose meter (10/21/2018 8:07 AM CDT)Only the most recent of15 results within the time period is included. POC-Glucose Meter 270 (H)Comment: TESTED AT 70 - 110 mg/dL [facility] [address] [place] [id number] Specimen Blood Performing Organization Address [facility] Phone Number [address] [address] [place] Hepatitis B Panel (10/21/2018 5:03 AM CDT) Hep B Core Total Ab Nonreactive Nonreactive [facility] Hep B S Ab <8.0 <8.0 mIU/mL [facility] HBsAg Screen Nonreactive Nonreactive [facility] Specimen Blood Performing Organization Address [facility] Phone Number [address] [address] [place] Hepatitis A Panel (10/21/2018 5:03 AM CDT) Hep A IgM Nonreactive Nonreactive [facility] Hep A IgG Reactive (A) Nonreactive [facility] Specimen Blood Performing Organization Address [facility] Phone Number [address] [address] [place] Magnesium (10/21/2018 5:03 AM CDT)Only the most recent of5 resultswithin the time period is included. Magnesium 2.1 1.6 - 2.6 mg/dL [facility] Specimen Blood Performing Organization Address City/[facility] Phone Number [address] [address] [place] Lactate dehydrogenase (LDH) (10/21/2018 5:03 AM CDT)Only the most recent of2 resultswithin the time period is included. LDH 224 (H) 125 - 220 U/L [facility] Specimen Blood Performing Organization Address City/[facility]/Zipcode Phone Number [facility] [address] [place] [address] [place] Ferritin (10/21/2018 5:03 AM CDT)Only the most recent of4 resultswithin the time period is included. Ferritin 1,162 (H) 5 - 275 ng/mL [facility] Specimen Blood Performing Organization Address City/State/[facility] Phone Number [address] [address] [place] Hepatic function panel (10/21/2018 5:03 AM CDT)Only the most recent of4 results within the time period is included. Protein, Total 7.7 6.0 - 8.3 gm/dL [facility] Albumin 3.5 3.5 - 5.0 g/dL [facility] Total Bilirubin 0.4 0.2 - 1.2 mg/dL [facility] Bilirubin, Direct 0.2 0.1 - 0.5 mg/dL [facility] Alkaline Phosphatase 61 40 - 150 U/L [facility] AST 39 (H) 5 - 34 U/L [facility] ALT 253 (H) 6 - 55 U/L [facility] Specimen Blood Performing Organization Address City/[facility] Phone Number [facility] [address] [place] [address] [place] Basic Metabolic Panel (10/21/2018 5:03 AM CDT)Only the most recent of4 results within the time period is included. Sodium 131 (L) 136 - 145 meq/L [facility] Potassium 4.7 3.5 - 5.1 meq/L [facility] Chloride 96 (L) 98 - 107 meq/L [facility] CO2 25 22 - 29 meq/L [facility] BUN 62 (H) 7 - 21 mg/dL [facility] Creatinine 2.80 (H) 0.57 - 1.25 mg/dL [facility] Glucose 278 (H) 70 - 105 mg/dL [facility] Calcium 9.3 8.4 - 10.2 mg/dL [facility] EGFR 18Comment: ESTIMATED GFR IS mL/min/1.73 sq m [facility] NOT ACCURATE CREATININE [facility] CLEARANCE IN PREDICTING GLOMERULAR FILTRATION RATE. ESTIMATED GFR IS NOT APPLICABLE FOR DIALYSIS PATIENTS. Specimen Blood Performing Organization Address City/[facility]/Zipcode Phone Number [address] [address] [place] Flow Cytometry Requisition (10/20/2018 11:51 AM CDT) Flow Cytometry See Separate Report [facility] Case # [id number] [facility] Specimen Bone Marrow Performing Organization Address City/[facility] Phone Number [address] [address] [place] Flow Cytometry (10/20/2018 11:51 AM CDT) Case Report Flow Cytometry Report Case: [id number] Authorizing Provider:Tiff Pagan MD Collected: 10/20/2018 1151 [facility] Ordering Location: [address] Received:10/20/2018 1336 Service Pathologist: Damián Mckeon MD Specimen:Other Flow Interpretation BONE MARROW, FLOW CYTOMETRY: NO MONOCLONAL B CELL POPULATION. [facility] NO ABNORMAL T CELL POPULATION. NO INCREASED BLAST POPULATION. CORRELATION WITH MORPHOLOGIC FINDINGS REQUIRED. CPT Code(s) 93884 [facility] SPECIMEN SOURCE Bone marrow [facility] CELLULAR BIOMARKER ANALYSIS CD8, surface-[place], CD56, surface-Lambda, CD5, CD19, CD10, CD3, CD20, CD4, CD45, CD14, CD13, CD33, CD117, CD34, cKappa, cLambda, CD38, CD138 [facility] IMMUNOPHENOTYPIC FINDINGS Specimen Viability: 97.2% [facility] Blasts: The dim CD45+ CD34+ blasts comprise 1.5% of total cells. The majority of these cells express CD13 and CD33 (myeloblasts). Lymphocytes: Bright CD45+ ly mphocytes comprise 6.8% of total cells. T cells show a CD4:CD8 ratio of 0.6. B cells are polytypic with a kappa:lambda ratio of 1.7. Myeloid/monocytic population s: As identified by CD45 and light scatter characteristics, granulocytes comprise the majority of cells analyzed, and monocytes comprise 3.4% of total cells. Plasma cells: Less than 1% CD138 positive plasma cells are noted with polytypic cytoplasmic light chain expression. The remaining events analyze d represent nonviable cells, non-hematolymphoid cells, and/or debris. DISCLAIMER These tests were developed a nd their performance characteristics determined by [facility]. They have not been cleared or approved by the U.S. Food and Drug Administration. The FDA has determined th at such clearance or approva l is not necessary. It should not be regarded as investigational or for research. This laboratory is certified under the Clinical Laboratory Improvement Amendments of 1988 (" [facility] CLIA") as qualified to perform high-complexity c linical testing. Specimen Other Performing Organization Address City/State/Zipcode Phone Number [facility] [address] [place] [address] CENTER Chromosomes Cancer Study (10/20/2018 11:51 AM CDT) Scan Result [facility] Specimen Bone Marrow Narrative Performed At This result has an attachment that is no t available. Performing Organization Address City/State/Zipcode Phone Number [facility] [address] [place], [place] [phone] BONE MARROW PROCESS. (10/20/2018 11:50 AM CDT) Anatomic Case# [id number] [facility] Ordering Physician Darrian [facility] Performing Physician [facility] Clot Rec'd? Yes [facility] Biopsy Rec'd? Yes [facility] Rec'd for Culture? No [facility] Rec'd for Flow? Yes [facility] Rec'd for Cytogenetics? Yes [facility] Rec'd for Molecular Genetics? Yes I [facility] Specimen Bone Marrow Narrative Performed At [facility] collection by Dr Curran slides are [facility]) Performing Organization Address City/State/Zipcode Phone Number [facility] [address] [place] [address] Biopsy/Aspiration/Injection (10/20/2018 10:57 AM CDT) Specimen Narrative Performed At FINAL REPORT [facility] CT-guided aspiration and core biopsy of the bone marrow. CLINICAL HISTORY: Anemia, hepatosplenome vidya. COMPARISON STUDY: None. Informed consent was obtained from the p atient and the risks of the procedure were explained including bleed ing, infection, blood vessels, nerves and other adjacent struc tures. This exam was performed according to our department dose optimization program which includes automated exposur e control, adjustment of the mA and/or kV according to the patient's size and/or use of iterative reconstruction technique. Sedation: 1% Xylocaine was utilized as l ocal analgesia. A total of 0.5 mg of Versed and 25 mcg of fentanyl were administered using the moderate sedation protocol. The patient' s nurse was responsible for administrating the medicine and continuo us monitoring the patient under the supervision of the physician. Moderate sedation time: 20 minutes. TECHNIQUE: Using sterile technique, CT f luoroscopic guidance and a 12-gauge Bonopty core biopsy system, lydia salinas a nine cc aspiration of the posterior left iliac bone was per formed. This was given to the field service poultry technician who was present at the time of the study and deemed adequate. Subsequently, a core bi opsy was obtained. This was also given to the field service poultry technician. COMPLICATIONS: None. ESTIMATED BLOOD LOSS: Minimal. Patient Disposition: The patient was in the same state post procedure as preprocedure. IMPRESSION: Successful CT-guided aspirat ion and core biopsy of the bone marrow. Signed: Neftaly Shepherd MD Report Verified Date/Time:10/20/2018 11:46:15 Reading Location: [facility] C013X [facility] Reading Room Procedure Note Interface, External Ris In - 10/20/2018 11:48 AM CDT FINAL REPORT CT-guided aspiration and core biopsy of the bone marrow. CLINICAL HISTORY: Anemia, hepatosplenome vidya. COMPARISON STUDY: None. Informed consent was obtained from the p atient and the risks of the procedure were explained including bleed ing, infection, blood vessels, nerves and other adjacent struc tures. This exam was performed according to our department dose optimization program which includes automated exposur e control, adjustment of the mA and/or kV according to the patient's size and/or use of iterative reconstruction technique. Sedation: 1% Xylocaine was utilized as l ocal analgesia. A total of 0.5 mg of Versed and 25 mcg of fentanyl were administered using the moderate sedation protocol. The patient' s nurse was responsible for administrating the medicine and continuo us monitoring the patient under the supervision of the physician. Moderate sedation time: 20 minutes. TECHNIQUE: Using sterile technique, CT f luoroscopic guidance and a 12-gauge Bonopty core biopsy system, lydia salinas a nine cc aspiration of the posterior left iliac bone was per formed. This was given to the field service poultry technician who was present at the time of the study and deemed adequate. Subsequently, a core bi opsy was obtained. This was also given to the field service poultry technician. COMPLICATIONS: None. ESTIMATED BLOOD LOSS: Minimal. Patient Disposition: The patient was in the same state post procedure as preprocedure. IMPRESSION: Successful CT-guided aspirat ion and core biopsy of the bone marrow. Signed: Neftaly Shepherd MD Report Verified Date/Time: 10/20/2018 1 1:46:15 Reading Location: [facility] B1 C013X Ortho Con sult Reading Room Performing Organization Address City/State/Zipcode Phone Number GE RIS Bone Marrow Exam (10/20/2018 10:30 AM CDT) Case Report Bone Marrow Pathology ReportCase: [id number] Authorizing Provider:Tiff Pagan MD Collected: 10/20/2018 1030 [facility] Ordering Location: [address] Received:10/20/2018 1151 Service Pathologist: Damián Mckeon MD Specimens: A) - Iliac Cr est, Left B) - C) - ADDENDUM Karyotype is reported to be 46,XX[20]. Mutational studies for calre ticulin, JAK2, and MPL are reported to be NEGATIVE. [facility] See attached scanned report for further addition al details. DIAGNOSIS BONE MARROW ASPIRATE, CLOT, AND DECALCIFIED BIOP SY: NORMOCELLULAR (60%) MARROW W ITH TRILINEAGE HEMATOPOIESIS AND MILD ATYPICAL MEGAKARYOCYTIC HYPERPLASIA. [facility] NO MORPHOLOGIC OR IMMUNOPHENOTYPIC EVIDENCE OF L YMPHOMA OR ACUTE LEUKEMIA. BLASTS ARE NOT INCREASED. STORAGE IRON IS DECREASED. SEE DIAGNOSTIC COMMENT. PERIPHERAL BLOOD: NORMOCYTIC ANEMIA. NO CIRCULATING BLASTS. Signing Pathologist Direct Phone Line: [phone] COMMENT There is no morphologic or [facility] immunophenotypic evidence of [facility] lymphoma or acute leukemia. This patient has a reported clinical history of anemia and hepatosplenomegaly as per the electronic medical records in [facility]. The morphologic finding of the megakaryocytes is nonspecific and could be reactive however they raise concern for the presence of an evolving myeloid neoplasm. Molecular and cytogenetic studies are currently pending, with results to be issued in an addendum report. CPT Code(s) 75499; 81783; 21645 x 2; 62891; 37589, 43511, 88 341x4 [facility] CLINICAL HISTORY Anemia [facility] H [facility]ALTH [facility] SPECIMEN SOURCE Bone marrow [facility] HE ALTH [facility] GROSS DESCRIPTION The case is received in thre e parts all labeled with the patient's name, Emily Barbour, date of 1970, and accession number, [id number], which corresponds to the accompanying requisiti on page labeled with the same name and accession number. [facility] Part B. Received in formalin labeled with [...] name, date of and accession number. RP/ew MICROSCOPIC DESCRIPTION BONE MARROW ASPIRATE: [facility] QUALITY: [facility] Aspirate- Adequate Touch imprint- Adequate MARROW DIFFERENTIAL COUNT: Number of cells count ed: 300 1% Blasts 1% Promyelocytes 23% Myelocytes/Metamyelocytes 29% Bands/Segmented granulocytes 2% Eosinophils and precursors 0% Basophils and precursors 38% Erythroid precursors 4% Lymphocytes 0% Monocytes 2% Plasma cells Myeloid: Erythroid Ratio: 1.5 Blasts: Not increased Erythropoiesis: Mild megaloblastoid changes. Myelopoiesis: Mild left shift Megakaryocytes: Increased, hypolobated and multi nucleated forms. Stainable iron is focally id entified on marrow particles present on the aspirate [...] and lambda immunostains. Stainable iron is focally id entified on the clot section by the Perls iron special stain. PERIPHERAL BLOOD: Red cells: Mild anisopoikilocytosis with polychr omasia White cells: Mild left shift. No circulating jacquelyn sts Platelets: Unremarkable SPECIAL STUDIES The interpretation of this c ase included the use of immunohistochemistry or special stains. BLOCK B1- PERLS IRON [facility] BLOCK C1- CD20, CD3, CD34, KAPPA, LAMBDA Control Slides Examined: In -house known positive controls were evaluated along with the test tissue. These control slides run alongside of the patients sample show appropriate staining. Internal posit jessica and negative controls when available are isaura powers Immunohistochemistry technic al testing was performed at [facility], Pathology Laboratory where it was developed and its performance characteristics were determined. It has not be en cleared or approved by [facility] [place].S. Food and Drug Administration. The FDA has determined that such clearance or approval is not necessary. The test is used for clinical purposes. It should not be regarde d as investigational or for research. This laboratory is certified under the Clinical Laboratory Improvement Amendments of 1988 (CLIA-88) as qualified to perform high complexity clinical laboratory testing. Specimen Bone Marrow Narrative Performed At This result has an attachment that is no t available. Performing Organization Address City/State/Zipcode Phone Number [facility] [address] [place] [address] CENTER Manual Differential (10/20/2018 5:15 AM CDT)Only the most recent of3 results within the time period is included. % Neutros 60 % [facility] % Lymphs 31 % [facility] % Monos 3 % [facility] % Eos 4 % [facility] % Metamyelo 1 (H) 0 - 0 % [facility] % Bands 1 0 - 10 % [facility] # Neutros 3.36 1.56 - 6.13 K/ul [facility] # Lymphs 1.74 1.18 - 3.74 K/ul [facility] # Monos 0.17 (L) 0.24 - 0.36 K/uL [facility] # Eos 0.22 0.04 - 0.36 K/uL [facility] # Metamyelo 0.06 (H) 0.00 - 0.00 K/uL [facility] # Bands 0.06 0.00 - 0.80 K/uL [facility] Total Counted 100 [facility] nRBC (manual) 1 (H) 0 - 0 /[address] [facility] WBC Morphology Normal [facility] Platelet Morphology Normal [facility] Polychromasia 1+ few [facility] Anisocytosis 1+ few [facility] Artifact Present [facility] Platelet Conc Adequate [facility] Specimen Blood Narrative Performed At Received comment: [facility] User comments: Slide comments: Performing Organization Address City/State/Zipcode Phone Number [address] [address] CENTER PT/aPTT (10/20/2018 5:15 AM CDT) Protime 13.0 11.9 - 14.2 seconds [facility] INR 1.0 <=5.9 [facility] PTT 32.3 22.5 - 36.0 seconds [facility] Specimen Blood Narrative Performed At Effective 09/13/2018: PT Reference Range [facility] Change New: 11.9-14.2Previous: 11.7-14.7 RECOMMENDED COUMADIN/WARFARIN INR THERAPY RANGES STANDARD DOSE: 2.0-3.0Includes: PROPHYLAXIS for venous thrombosis, systemic embolization; TREATMENT for venous thrombosis and/or pulmonary embolus. HIGH RISK: Target INR is 2.5-3.5 for patients wiht mechanical heart valves. Performing Organization Address City/[facility]/Zipcode Phone Number [address] [address] [facility] CBC with platelet count + automated diff (10/20/2018 5:15 AM CDT)Only the most recent of5 resultswithin the time period is included. WBC 5.6 3.5 - 10.5 K/L [facility] RBC 3.27 (L) 3.93 - 5.22 M/L [facility] Hemoglobin 9.5 (L) 11.2 - 15.7 GM/DL [facility] Hematocrit 29.8 (L) 34.1 - 44.9 % [facility] MCV 91.1 79.4 - 94.8 fL [facility] MCH 29.1 25.6 - 32.2 pg [facility] MCHC 31.9 (L) 32.2 - 35.5 GM/DL [facility] RDW 15.1 (H) 11.7 - 14.4 % [facility] Platelets 260 150 - 450 K/CU MM [facility] MPV 11.1 9.4 - 12.3 fL [facility] nRBC 0 0 - 0 /100 WBC [facility] Specimen Blood Performing Organization Address City/[facility]/Zipcode Phone Number [address] [address] CENTER Phosphorus (10/20/2018 5:15 AM CDT)Only the most recent of3 resultswithin the time period is included. Phosphorus 4.7Comment: Specimen slightly 2.3 - 4.7 mg/dL CH I [facility] hemolyzed [facility] Specimen Blood Performing Organization Address City/[facility]/Zipcode Phone Number [address] [address] [facility] TRANSFUSION SERVICE REPORT - SCAN (10/19/2018 5:50 PM CDT)Only the most recent of2 resultswithin the time period is included. Narrative Performed At This result has an attachment that is no t available. Calcium, Ionized (10/19/2018 5:30 AM CDT)Only the most recent of3 resultswithin the time period is included. Calcium, Ion 1.07 (L) 1.12 - 1.27 mmol/L [facility] pH, Blood 7.41 [facility] Specimen Blood Performing Organization Address [facility] Phone Number [address] [address] CENTER Prothrombin time/INR (10/19/2018 5:30 AM CDT)Only the most recent of4 results within the time period is included. Protime 13.4 11.9 - 14.2 seconds [facility] INR 1.1 <=5.9 [facility] Specimen Blood Narrative Performed At Effective 09/13/2018: PT Reference Range [facility] Change New: 11.9-14.2Previous: 11.7-14.7 RECOMMENDED COUMADIN/WARFARIN INR THERAPY RANGES STANDARD DOSE: 2.0-3.0Includes: PROPHYLAXIS for venous thrombosis, systemic embolization; TREATMENT for venous thrombosis and/or pulmonary embolus. HIGH RISK: Target INR is 2.5-3.5 for patients wiht mechanical heart valves. Performing Organization Address [facility] Phone Number [address] [address] CENTER Uric acid (10/19/2018 5:30 AM CDT)Only the most recent of2 resultswithin the time period is included. Uric Acid 9.8 (H)Comment: Specimen 2.6 - 7.2 mg/dL [facility] slightly hemolyzed [facility] Specimen Blood Performing Organization Address [facility]/Zipcode Phone Number [address] [address] CENTER B-type Natriuretic Factor (BNP) (10/19/2018 5:30 AM CDT) BNP 162 (H) 0 - 100 pg/mL [facility] Specimen Blood Performing Organization Address City/State/Zipcode Phone Number [facility] [address] [place] [address] [facility] Comprehensive metabolic panel (10/19/2018 5:30 AM CDT)Only the most recent of2 resultswithin the time period is included. Protein, Total 8.2Comment: Specimen 6.0 - 8.3 gm/dL [facility] slightly hemolyzed [facility] Albumin 3.6Comment: Specimen 3.5 - 5.0 g/dL [facility] slightly hemolyzed [facility] Alkaline Phosphatase 72 40 - 150 U/L [facility] Total Bilirubin 0.5Comment: Specimen 0.2 - 1.2 mg/dL [facility] slightly hemolyzed [facility] Sodium 135 (L) 136 - 145 meq/L [facility] Potassium 4.2Comment: Specimen 3.5 - 5.1 meq/L [facility] slightly hemolyzed [facility] Chloride 97 (L) 98 - 107 meq/L [facility] CO2 27 22 - 29 meq/L [facility] BUN 60 (H) 7 - 21 mg/dL [facility] Creatinine 2.79 (H)Comment: 0.57 - 1.25 mg/dL Specimen slightly [facility] hemolyzed Glucose 171 (H) 70 - 105 mg/dL [facility] Calcium 9.5 8.4 - 10.2 mg/dL [facility] AST 152 (H)Comment: Specimen 5 - 34 U/L slightly hemolyzed [facility] ALT 532 (H)Comment: Specimen 6 - 55 U/L slightly hemolyzed [facility] ENTER EGFR 18Comment: ESTIMATED GFR mL/min/1.73 sq m IS NOT ACCURATE [facility] CREATININE CLEARANCE IN PREDICTING GLOMERULAR FILTRATION RATE. ESTIMATED GFR IS NOT APPLICABLE FOR DIALYSIS PATIENTS. Specimen Blood Performing Organization Address City/[facility] Phone Number [facility] [address] [place] [address] CENTER Prepare Leuko-Red RBC (10/18/2018 11:54 PM CDT) CROSSMATCH COMPATIBLE SAFETRACE TX Unit ABO A Pos SAFETRACE TX UNIT NUMBER [id number] SAFETRACE TX Status TX_TIMEINCHART SAFETRACE TX Blood Bank Product RED BLOOD CELLS SAFETRACE TX PRODUCT CODE [id number] SAFETRACE TX Specimen Other Performing Organization Address City/[facility] Phone Number SAFETRACE TX CT chest without IV contrast (10/18/2018 3:23 PM CDT) Specimen Narrative Performed At FINAL REPORT [employer] [facility] CT Chest, abdomen, and pelvis without co ntrast History: shortness of breath Comparison: none Technique: serial axial imaging was perf ormed without intravenous contrast as per departmental protocol. Multiplanar images are reconstructed and reviewed when indicate d. This CT examination is performed using o ne or more of the following dose reduction techniques: Automated exposure control, adjustment o f the mA and /or kV according to patient size, and/or use of iterative reconstruction technique. Findings: No mediastinal lymphadenopathy. No definite hilar enlargement. Normal size heart.No pericardial eff usion. No thoracic aortic aneurysm.Normal caliber of main pulmonary trunk. Patent central airways.No pneumothor ax. Trace bilateral pleural effusions, right greater than left.M ild bilateral lower lobe dependent atelectasis. The lungs are oth erwise clear. Grossly unremarkable appearance of unenh anced liver, pancreas, spleen, and adrenal glands. The patient is status post cholecystecto my. No urinary calculus.No hydronephrosi s.No apparent bladder wall thickening.A small focus of air with in the bladder likely reflects recent instrumentation. Previous hysterectomy. No small or large bowel obstruction. No apparent bowel wall thickening.No findings to indicate a cute appendicitis. A small amount of free fluid is seen wit hin the pelvic cul-de-sac, nonspecific. No lymphadenopathy is appreciated. No aggressive osseous lesion. Impression: 1. Technically limited study due to lack of oral or intravenous contrast. 2. Trace bilateral pleural effusions, ri ght greater than left. 3. Previous cholecystectomy and hysterec selvin. 4. A small amount of free fluid is seen within the pelvic cul-de-sac, nonspecific. Signed: Mani Morel MD Report Verified Date/Time:10/18/2018 16:31:25 Reading Location: [facility] Radiology Reading Room Procedure Note Interface, External Ris In - 10/18/2018 4:33 PM CDT FINAL REPORT CT Chest, abdomen, and pelvis without co ntrast History: shortness of breath Comparison: none Technique: serial axial imaging was perf ormed without intravenous contrast as per departmental protocol. Multiplanar images are reconstructed and reviewed when indicate d. This CT examination is performed using o ne or more of the following dose reduction techniques: Automated exposure control, adjustment o f the mA and /or kV according to patient size, and/or use of iterative reconstruction technique. Findings: No mediastinal lymphadenopathy. No definite hilar enlargement. Normal size heart. No pericardial effus ion. No thoracic aortic aneurysm. Normal donna iber of main pulmonary trunk. Patent central airways. No pneumothorax . Trace bilateral pleural effusions, right greater than left. Mil d bilateral lower lobe dependent atelectasis. The lungs are oth erwise clear. Grossly unremarkable appearance of unenh anced liver, pancreas, spleen, and adrenal glands. The patient is status post cholecystecto my. No urinary calculus. No hydronephrosis. No apparent bladder wall thickening. A small focus of air within the bladder likely reflects recent instrumentation. Previous hysterectomy. No small or large bowel obstruction. No apparent bowel wall thickening. No findings to indicate acu te appendicitis. A small amount of free fluid is seen wit hin the pelvic cul-de-sac, nonspecific. No lymphadenopathy is appreciated. No aggressive osseous lesion. Impression: 1. Technically limited study due to lack of oral or intravenous contrast. 2. Trace bilateral pleural effusions, ri ght greater than left. 3. Previous cholecystectomy and hysterec selvin. 4. A small amount of free fluid is seen within the pelvic cul-de-sac, nonspecific. Signed: Mani Morel MD Report Verified Date/Time: 10/18/2018 1 6:31:25 Reading Location: [facility] Radiology Reading Room Performing Organization Address City/State/Zipcode Phone Number Medic Trace CT abdomen/pelvis without iv contrast (10/18/2018 3:23 PM CDT) Specimen Narrative Performed At FINAL REPORT [facility] Trace CT Chest, abdomen, and pelvis without co ntrast History: shortness of breath Comparison: none Technique: serial axial imaging was perf ormed without intravenous contrast as per departmental protocol. Multiplanar images are reconstructed and reviewed when indicate d. This CT examination is performed using o ne or more of the following dose reduction techniques: Automated exposure control, adjustment o f the mA and /or kV according to patient size, and/or use of iterative reconstruction technique. Findings: No mediastinal lymphadenopathy. No definite hilar enlargement. Normal size heart.No pericardial eff usion. No thoracic aortic aneurysm.Normal caliber of main pulmonary trunk. Patent central airways.No pneumothor ax. Trace bilateral pleural effusions, right greater than left.M ild bilateral lower lobe dependent atelectasis. The lungs are oth erwise clear. Grossly unremarkable appearance of unenh anced liver, pancreas, spleen, and adrenal glands. The patient is status post cholecystecto my. No urinary calculus.No hydronephrosi s.No apparent bladder wall thickening.A small focus of air with in the bladder likely reflects recent instrumentation. Previous hysterectomy. No small or large bowel obstruction. No apparent bowel wall thickening.No findings to indicate a cute appendicitis. A small amount of free fluid is seen wit hin the pelvic cul-de-sac, nonspecific. No lymphadenopathy is appreciated. No aggressive osseous lesion. Impression: 1. Technically limited study due to lack of oral or intravenous contrast. 2. Trace bilateral pleural effusions, ri ght greater than left. 3. Previous cholecystectomy and hysterec selvin. 4. A small amount of free fluid is seen within the pelvic cul-de-sac, nonspecific. Signed: Mani Morel MD Report Verified Date/Time:10/18/2018 16:31:25 Reading Location: [facility] Radiology Reading Room Procedure Note Interface, External Ris In - 10/18/2018 4:33 PM CDT FINAL REPORT CT Chest, abdomen, and pelvis without co ntrast History: shortness of breath Comparison: none Technique: serial axial imaging was perf ormed without intravenous contrast as per departmental protocol. Multiplanar images are reconstructed and reviewed when indicate d. This CT examination is performed using o ne or more of the following dose reduction techniques: Automated exposure control, adjustment o f the mA and /or kV according to patient size, and/or use of iterative reconstruction technique. Findings: No mediastinal lymphadenopathy. No definite hilar enlargement. Normal size heart. No pericardial effus ion. No thoracic aortic aneurysm. Normal donna iber of main pulmonary trunk. Patent central airways. No pneumothorax . Trace bilateral pleural effusions, right greater than left. Mil d bilateral lower lobe dependent atelectasis. The lungs are oth erwise clear. Grossly unremarkable appearance of unenh anced liver, pancreas, spleen, and adrenal glands. The patient is status post cholecystecto my. No urinary calculus. No hydronephrosis. No apparent bladder wall thickening. A small focus of air within the bladder likely reflects recent instrumentation. Previous hysterectomy. No small or large bowel obstruction. No apparent bowel wall thickening. No findings to indicate acu te appendicitis. A small amount of free fluid is seen wit hin the pelvic cul-de-sac, nonspecific. No lymphadenopathy is appreciated. No aggressive osseous lesion. Impression: 1. Technically limited study due to lack of oral or intravenous contrast. 2. Trace bilateral pleural effusions, ri ght greater than left. 3. Previous cholecystectomy and hysterec selvin. 4. A small amount of free fluid is seen within the pelvic cul-de-sac, nonspecific. Signed: Mani Morel MD Report Verified Date/Time: 10/18/2018 1 6:31:25 Reading Location: [facility] Radiology Reading Room Performing Organization Address City/State/Zipcode Phone Number [facility] Respiratory Panel [facility] (10/18/2018 12:37 PM CDT) Human Metapneumovirus Not detected Not detected, [facility] Rhinovirus Not detected Not detected, [facility]ocal [facility] Influenza A Not detected Not detected, [facility]ocal [facility] INFLUENZA A (NO SUBTYPE) Not detected, [facility] Influenza A subtype H1 Not detected, [facility] Equivocal [facility] Influenza A Subtype H3 Not detected, [facility] Equ[facility]ocal [facility] Influenza A Subtype H1-2009 Not detected, [facility] Influenza B Not detected Not detected, [facility] Respiratory Syncytial Virus Not detected Not detected, [facility] Parainfluenza Virus 1 Not detected Not detected, [facility] Parainfluenza Virus 2 Not detected Not detected, [facility] Parainfluenza virus 3 Not detected Not detected, [facility] Parainfluenza Virus 4 Not detected Not detected, [facility] Adenovirus Not detected Not detected, [facility] Coronavirus 229E Not detected Not detected, [facility]ocal [facility] Coronavirus HKU1 Not detected Not detected, [facility] Coronavirus NL63 Not detected Not detected, [facility] Coronavirus OC43 Not detected Not detected, [facility] Bordetella Pertussis Not detected Not detected, [facility]ocal [facility] Chlamydophila Pneumoniae Not detected Not detected, [facility] Mycoplasma Pneumoniae Not detected Not detected, [facility] Specimen Nasopharyngeal Narrative Performed At Other viruses and bacteria not targeted by [facility] this PCR panel cannot be excluded; therefore clinical correlation and follow up of serology, culture results, and other molecular studies is required. The results are not intended to be used as the sole means for clinical diagnosis or patient management decisions. This sample was tested at the [facility] using the [employer] FilmArray Respiratory Panel. It is FDA cleared and has been verified and approved by the [facility] for clinical use on nasopharyngeal swab specimens. The performance of the FilmArray RP has not been established in individuals who received influenza vaccine.Recent administration of a nasal influenza vaccine may cause false positive results for Influenza A and/or Influenza B. Performing Organization Address City/[facility]/Zipcode Phone Number [address] [address] [place] Rapid Influenza A&B Screen (10/18/2018 12:37 PM CDT) Rapid Influenza A Antigen Negative Negative, Inconclusive [facility] Rapid influenza B Antigen Negative Negative, Inconclusive [facility] Specimen Nasal Performing Organization Address [facility] Phone Number [address] [address] CENTER [id number] PHENOTYP (10/18/2018 12:07 PM CDT) Specimen Blood Narrative Performed At This result has an attachment that is no t available. D-dimer (10/18/2018 12:07 PM CDT) D-Dimer, Quant 13.12 (H) <0.50 MG/L FEU [facility] Specimen Blood Narrative Performed At Intended Use: The D-Dimer Assay can be used [facility] to aid in the diagnosis of Deep Vein Thrombosis (DVT) and Pulmonary Embolism Disease (PED). In patients with low pre-test probability, various studies concerning STA Liatest D-dimer test have reported that with a cutoff value of 0.50 MG/L FEU, the Negative Predictive Value (NPV) regarding the exclusion of thrombosis is within 95-100% range. Performing Organization Address City/[facility]/Zipcode Phone Number [facility] [address] [place] [address] [place] EBV Viral Load (10/18/2018 12:06 PM CDT) EBV Viral Load Negative or below the linear [facility] range of the assay (<500 [facility]ICAL [facility]ENTER copies/mL) Specimen Blood Narrative Performed At This assay was performed by real-time PCR for [facility] the detection of the Adria-Pozo virus (EBV) gene EBNA-1.The test is composed of (1) DNA extraction from patient specimen, and (2) real-time PCR amplification and detection with [id number] primers and probes. A well-conserved region of the EBNA-1 gene is targeted, along with an internal control sequence used to confirm PCR amplification. Asymptomatic carriers and viral genetic variation, among other factors, can affect the accuracy of nucleic acid testing; therefore, results should be interpreted in light of clinical data. This test was developed and its performance characteristics determined by the [facility] Pathology Department, Section of Molecular Pathology. It has not been cleared or approved by the U.S. Food and Drug Administration (FDA), since FDA approval is not required for clinical use of the test. Validation was done as required by The Clinical Laboratory Improvement Amendments of 1988. Performing Organization Address [facility] Phone Number [address] [address] [place] HIV-1 Antigen with HIV-1/2 Antibody (10/18/2018 12:06 PM CDT) HIV-1 Antigen with HIV 1&2 Nonreactive Nonreactive [facility] Antibody [facility] Specimen Blood Performing Organization Address [facility]/Zipcode Phone Number [place] [id number] [place] [address] [place] CMV PCR, quantitative (10/18/2018 12:06 PM CDT) CMV DNA Viral Load Negative or below the linear [facility] range of the assay (<375 [facility]ENTER copies/mL) Specimen Blood Narrative Performed At Cytomegalovirus (CMV) infection can cause [facility] significant disease in immunosuppressed [...] CMV infection, a lower threshold can be used . CMV infection may also be monitored using [...] and its performance characteristics determined by the [facility] Pathology Department, Section of Molecular Pathology. It has not been cleared or approved by the U.S. Food and Drug Administration (FDA), since FDA approval is not required for clinical use of the test. Validation was done as required by The Clinical Laboratory Improvement Amendments of 1988. Performing Organization Address City/[facility]/Zipcode Phone Number [address] [address] [place] Rheumatoid factor Ab, reflex to titer (10/18/2018 12:06 PM CDT) Rheumatoid Factor Negative [facility] Specimen Blood Performing Organization Address City/[facility]/Zipcode Phone Number [address] [address] [place] Protein electrophoresis, serum (10/18/2018 12:06 PM CDT) Albumin Fraction 3.0 (L) 3.5 - 5.5 g/dL [facility] Alpha 1 Fraction 0.4 0.2 - 0.4 g/dL [facility] Alpha 2 Fraction 1.2 (H) 0.5 - 0.9 g/dL [facility] Beta Fraction 0.8 0.6 - 1.1 g/dL [facility] Gamma Globulin Fraction 2.2 (H) 0.7 - 1.7 g/dL [facility] Interpretation Total protein and albumin decreased. [facility] C ENTER Alpha-1 and alpha-2 globulin percentages increased. Gamma increased in a diffuse fashion. This indicates an acute phase response and concomitant chronic immune or inflammatory response. Pathologist: Armani To M.D. [facility] (electonic signature) [facility] Protein, Total 7.6 6.0 - 8.3 gm/dL [facility] Specimen Blood Performing Organization Address [facility] Phone Number [address] [address] [place] Haptoglobin (10/18/2018 12:06 PM CDT) Haptoglobin 301 (H) 14 - 258 mg/dL [facility] Specimen Blood Performing Organization Address [facility] Phone Number [address] [address] [place] ANGELES Titer & Pattern (10/18/2018 9:43 AM CDT) ANGELES Titer 1:160 [facility] ANGELES Pattern Nucleolar [facility] Specimen Blood Performing Organization Address [facility] Phone Number [address] [address] [place] Anti-Nuclear Antibody (ANGELES) (10/18/2018 9:43 AM CDT) ANGELES Positive (A) Negative [facility] Specimen Blood Narrative Performed At Test performed by IFA method. [facility] Performing Organization Address City/[facility] Phone Number [facility] MEDICAL [address] [place] [address] CENTER Tissue Transglutaminase Abs,IgG and IgA (10/18/2018 9:42 AM CDT) (tTG) Ab, IgG 30 (H) U/mL [facility] Comment: <6 No Antibody Detected > OR = 6 Antibody Detected (tTG) Ab, IgA <1 U/mL [facility] Comment: <4 No Antibody Detected > OR = 4 Antibody Detected Specimen Blood Narrative Performed At Performing Lab [facility] [employer] [address] [address] [place] [address] Mauro Prater MD, PhD, NICOLE Performing Organization Address [facility] Phone [place] [address] [facility] [address] [facility] Anti-Mitochondrial Ab, reflex to titer (10/18/2018 9:42 AM CDT) Anti-Mitochond Abs NEGATIVE NEGATIVE [facility] Comment: INC[facility]POR[facility] This test was developed and its analytical perfo rmance characteristics have been determined by [facility]. It has not been cleared or approved by FDA. This assay has been validated pursuant to the CLIA regulations and is used for clinical purposes. Mitochondrial Ab Titer TNP <1:20 [facility] Comment: INC[facility]POR[facility] Test Not Performed. Screening test Negative or N ot Detected. Titer not performed. Specimen Blood Narrative Performed At Performing Lab [facility] [employer] [address] [place] [address] Mauro Prater MD, PhD, NICOLE Performing Organization Address [facility] Phone Number [place] [address] [facility] [address] [facility] Iron, TIBC, % sat. (without ferritin) (10/18/2018 9:42 AM CDT)Only the most recent of2 resultswithin the time period is included. Iron 42.0 40.0 - 160.0 ug/dL [facility] TIBC 264 250 - 450 ug/dL [facility] Iron % Saturation 16 (L) 20 - 55 % [facility] Specimen Blood Performing Organization Address City/[facility]/Zipcode Phone Number [facility] [address] [place] [address] CENTER Actin (Smooth Muscle) Antibody, IgG (10/18/2018 9:42 AM CDT) Anti-Smooth Muscle Ab <20 See Note: U [facility] Comment: INC[facility]POR[facility] Reference Range: <20 NEGATIVE > OR = 20 POSITIVE Antibodies recognizing actin are the main compon ent of smooth muscle antibodies associated with autoimmune liver disease. Actin antibodies are found in approximately 75% of patients with autoimmune hepatitis (AIH) type 1, approximately 65% of patients with autoimmune cholangitis, approximately 30% of patients with primary bilia ry cirrhosis, and approximately 2% of healthy peopl e. High values are closely correlated with AIH type 1. Specimen Blood Narrative Performed At Performing Lab [facility] [employer] [facility] [place] [address] [place] [address] Mauro Prater MD, PhD, NICOLE Performing Organization Address City/State/Zipcode Phone Number [facility] [place] [address] INCORPORATED [address] [facility] Ceruloplasmin (10/18/2018 9:42 AM CDT) Ceruloplasmin 48 18 - 53 mg/dL [facility] Comment: Adults:Males: 18-36 mg/dL Females: 18-53 m g/dL Pediatrics:Males (mg/dL) Females (mg/dL) 0-30 Days 8-25 3-28 31 Days-11 Month 15-48 15-43 1-3 Vhanl77-57 29-54 4-6 Vqhag13-66 26-54 7-9 Hfwck89-97 23-48 10-12 Qdskd25-14 21-48 13-15 Kyfrm82-34 21-46 16-18 Kvrbg04-49 22-50 The pediatric ranges are derived from the follo wing criteria: Miladis SJ, Afua LIGHT, Pina J et al Pediatric re ference ranges for Okmm-7-Utigyoeadmrlo and ceruloplasm in. Clin. Chem 1997; 43:S1999 Pediatric Reference Ranges, 2nd., [place] Miladiset al. editors. [employer], [place], [place] 1997. Specimen Blood Narrative Performed At Performing Lab [facility] *SPL [facility], [address] [place] [id number] Kendy Lees MD, PhD Performing Organization Address [facility] Phone Number [facility], [place], [place] [address] INCORPORATED [address] [facility] Alpha fetoprotein (AFP), tumor marker (10/18/2018 9:42 AM CDT) Alpha-Fetoprotein <2.0 <10.0 ng/mL [facility] Specimen Blood Performing Organization Address [facility] Phone Number [address] [address] CENTER Eosinophil smear (10/18/2018 5:42 AM CDT) Eosinophil Smear Rare EOS =less than 5% No EOS seen [facility] WBCs seen are EOS (A) MEDICAL CE NTER Specimen Urine Performing Organization Address [facility] Phone Number [address] [address] CENTER Reticulocyte count (10/18/2018 5:42 AM CDT) % Retic 4.3 (H) 0.5 - 1.7 % [facility] Specimen Blood Performing Organization Address [facility] Phone Number [address] [address] CENTER Triglycerides (10/18/2018 5:42 AM CDT) Triglycerides 299 mg/dL [facility] Specimen Blood Narrative Performed At TRIGLYCERIDE REFERENCE RANGE [facility] Low Risk<150 Borderline Risk 150-199 High [id number] Very High Risk >=500 Performing Organization Address City/State/Zipcode Phone Number [address] [address] CENTER ECHOCARDIOGRAM REPORT - SCAN (10/17/2018 9:11 PM CDT) Narrative Performed At This result has an attachment that is no t available. XR chest 1 view portable / bedside (10/17/2018 6:00 PM CDT) Specimen Narrative Performed At FINAL REPORT [employer] Clinical History: SOB. Comparison Study: None Findings:The cardiac silhouette is e nlarged. Pulmonary venous congestion is seen. The lungs are within normal limits.The pleural spaces are clear.There is no pneumot horax. No significant bony or soft tissue abnormalities are seen. Impression: Cardiomegaly with some pulmo nary venous congestion. Signed: Neftaly Shepherd MD Report Verified Date/Time:10/17/2018 19:11:02 Reading Location: [address] Consult R [facility] Room Procedure Note Interface, External Ris In - 10/17/2018 7:13 PM CDT FINAL REPORT Clinical History: SOB. Comparison Study: None Findings: The cardiac silhouette is enl arged. Pulmonary venous congestion is seen. The lungs are within normal limits. The pleural spaces are clear. There is no pneumotho rax. No significant bony or soft tissue abnormalities are seen. Impression: Cardiomegaly with some pulmo nary venous congestion. Signed: Neftaly Shepherd MD Report Verified Date/Time: 10/17/2018 1 9:11:02 Reading Location: [facility] B1 [id number] Consult R eading Room Performing Organization Address City/State/Zipcode Phone Number RIS Hereditary Hemochromatosis DNA (10/17/2018 4:13 PM CDT) DNA Mutation Analysis see note [facility] Comment: INC[facility]POR[facility] DNA MUTATION ANALYSIS RESULT: NEGATIVE INTERPRETATION: DNA testing indicates that this individual is negative for the C282Y and H63D mu tations in the HFE gene.This negative result signifi cantly reduces the likelihood of hereditary hemochromat osis (HH) in this individual.However, it does not rule out the presence of other mutations within the HFE g shelly or a diagnosis of HH.The risk of this individua l carrying a HFE mutation other than those tested in this assay depends greatly on family and clinical his tory as well as ethnicity.This assay does not test f or other primary or secondary iron overload disorders. Lydia Wall, Ph.D., [facility] Director, Molecular Genetics Hereditary hemochromatosis (HH) is an autosomal recessive disorder of iron metabolism that resul ts in iron overload and potential organ failure.It is one of the most common genetic disorders in individu als of - ancestry, with an estimated c arrier frequency of 10%.HH is caused by mutations i n the HFE gene.Most individuals with HH (60-90%) are h omozygous for the C282Y mutation.A smaller percentage of affected individuals are either compound heteroz ygous for the C282Y and H63D mutations (3%-8%), or elida ozygous for the H63D mutation (approximately 1%). This assay detects the two mutations in the HFE gene, C282Y ([id number]: c.845G>A) and H63D ([id number] 0.2: c. 187C>G), that are commonly associated with HH. The mutations are detected by multiplex-polymerase c geraldo reaction (PCR) amplification, followed by digest ion of the amplification products with the restriction enzymes Rsal and NlaIII, for the detection of the C282Y and H63D mutations respectively.Fluorescent-labe led restriction fragments are detected by capillary electrophoresis. This assay does not detect other mutations in th e HFE gene that can cause HH.Since genetic variati on and other factors can affect the accuracy of direct mutation testing, these results should be interp reted in light of clinical and familial data. For assistance with interpretation of these resu lts, please contact your local [facility] gene tic counselor or call [phone] ([phone]). This test was developed and its analytical performance characteristics have been determined by [facility], [place], [place]. It has not been cleared or approved by the FDA. This assay has been validated pursuant to the CLIA regulations and is used for clinical purposes. For more information on this test, go to http://education.[employer]/faq/hemoch romatos Specimen Blood Narrative Performed At Performing Lab [facility] [address] [facility] [address] [place], [address] [place] [address] Hien John MD, PhD Performing Organization Address City/State/Zipcode Phone Number [facility], [place], [place] [address] INCORPORATED [address] [facility] Fibrinogen (10/17/2018 4:13 PM CDT) Fibrinogen 439 (H) 225 - 434 mg/dl [facility] Specimen Blood Performing Organization Address City/State/Zipcode Phone Number [facility] [address] [place] [address] CENTER Transfuse Leuko-Red RBC (10/17/2018 3:56 PM CDT)Only the most recent of2 resultswithin the time period is included.NM lung scan (V/Q) (10/17/2018 10:19 AM CDT) Specimen Narrative Performed At FINAL REPORT [employer] [facility] PROCEDURE: V/Q LUNG SCAN CPT CODE:07516 INDICATION:Acute chest pain pulmonary origin PROTOCOL:10.8 mCi ofXe-1 33 gas was administered by inhalation. Rebreathing/washout images w ere obtained in the anterior and the posterior projections.4.3 mC i of Tc-99m MAA was then injected intravenously, and static perfu marbella images were obtained in multiple projections. FINDINGS: Ventilation: Initial tracer distribution is physiological. Washout proceeds normally. During the wa shout phase the liver is seen. Perfusion:Tracer distrib ution is physiological. IMPRESSION: Normal ventilation/perfu marbella lung scan. Hepatic activity during the radio xenon phase is suggestive of a fatty liver. Signed: Quique Miranda MD Report Verified Date/Time:10/17/2018 10:48:21 Reading Location: [address] Reading Room Procedure Note Interface, External Ris In - 10/17/2018 10:50 AM CDT FINAL REPORT PROCEDURE: V/Q LUNG SCAN CPT CODE: 25582 INDICATION: Acute chest pain pulmon natalie origin PROTOCOL: 10.8 mCi of Xe-133 gas w as administered by inhalation. Rebreathing/washout images w ere obtained in the anterior and the posterior projections. 4.3 mCi of Tc-99m MAA was then injected intravenously, and static perfu marbella images were obtained in multiple projections. FINDINGS: Ventilation: Initial tracer distri bution is physiological. Washout proceeds normally. During the wa shout phase the liver is seen. Perfusion: Tracer distribution is physiological. IMPRESSION: Normal ventilation/perfusi on lung scan. Hepatic activity during the radio xenon phase is suggestive of a fatty liver. Signed: Quique Miranda MD Report Verified Date/Time: 10/17/2018 1 0:48:21 Reading Location: [address] Reading Room Performing Organization Address City/[facility] Phone Number RIS ABORH, manual (10/17/2018 8:28 AM CDT) ABO Grouping [facility] Rh Factor [facility] ABO Grouping A [facility] Rh Factor POS [facility] Specimen Blood Performing Organization Address [facility] Phone Number [facility] [address] [place] [address] Type and screen, automated (10/17/2018 8:06 AM CDT) ABO/RH AUTOMATED (BEAKER) A POSITIVE [facility] Ab Scrn NEGATIVE [facility] Specimen Blood Performing Organization Address [facility]code Phone Number [facility] [address] [place] [address] US abdominal with doppler (10/17/2018 7:37 AM CDT) Specimen Narrative Performed At FINAL REPORT [facility] Abdominal and pelvic ultrasound dated 10/17/2018 Clinical information: elevated transamin ases Comment:Real-time transabdominal ult rasound was performed. Liver is enlarged and measures 21.9 cm i n length. The echogenicity of the liver is normal.No focal lesion is noted in th e liver.Spleen is enlarged measuring 15.1 cm. Gallbladder is surgically absent. No osmin iary dilatation is seen. Common bile duct measures 4 mm in diamet er.Main portal vein measures 13 mm in diameter. Pancreas is suboptimally visualized. Right kidney measures 11.8 x 4.1 x 5.5 c m.Left kidney measures 12.0 x 4.9 x 4.6 cm.Echogenicity of both kidney is increased.No hydronephrosis or solid mass seen in either kidney. No cystis seen in the either kidney. The urinary bladde r measures 409 cc. Postvoid bladder measures 173 cc. No ascites present in the abdomen. Abdominal aorta is normal in caliber. Th e IVC is patent. Real-time Color and Spectral doppler ult rasound of the abdomen was performed. Main portal vein measures 1.3 cm in diam eter. There is hepatopedal flow in the main portal vein with veloci ty 24 cm/sec.Right and left portal veins are patent. Proper hepatic artery, right hepatic art miguelito, and left hepatic artery are patent with resistive indices 0.8, 0 .7, and 0.7 respectively. IVC, Hepatic venous confluence, right HV , middle HV and left HV are patent. No mass or adenopathy is seen in the pel vis. Impression: 1. Hepatosplenomegaly. 2. Suboptimal visualization of the pancr eas secondary to overlying gas. 3. Echogenic kidneys suggestive of medic al renal disease. 4. Unremarkable pelvic ultrasound. 5. Normal Doppler of the abdomen. Signed: Leobardo Ayoub MD Report Verified Date/Time:10/17/2018 10:02:56 Reading Location: [address] Radiolog y Reading Room Procedure Note Interface, External Ris In - 10/17/2018 10:05 AM CDT FINAL REPORT Abdominal and pelvic ultrasound dated 10/17/2018 Clinical information: elevated transamin ases Comment: Real-time transabdominal ultra sound was performed. Liver is enlarged and measures 21.9 cm i n length. The echogenicity of the liver is normal. No focal lesion is noted in the liver. Spleen is enlarged measuring 15.1 cm. Gallbladder is surgically absent. No osmin iary dilatation is seen. Common bile duct measures 4 mm in diamet er. Main portal vein measures 13 mm in diameter. Pancreas is suboptimally visualized. Right kidney measures 11.8 x 4.1 x 5.5 c m. Left kidney measures 12.0 x 4.9 x 4.6 cm. Echogenicity of both ki dney is increased. No hydronephrosis or solid mass seen in eit her kidney. No cyst is seen in the either kidney. The urinary bladde r measures 409 cc. Postvoid bladder measures 173 cc. No ascites present in the abdomen. Abdominal aorta is normal in caliber. Th e IVC is patent. Real-time Color and Spectral doppler ult rasound of the abdomen was performed. Main portal vein measures 1.3 cm in diam eter. There is hepatopedal flow in the main portal vein with veloci ty 24 cm/sec. Right and left portal veins are patent. Proper hepatic artery, right hepatic art miguelito, and left hepatic artery are patent with resistive indices 0.8, 0 .7, and 0.7 respectively. IVC, Hepatic venous confluence, right HV , middle HV and left HV are patent. No mass or adenopathy is seen in the pel vis. Impression: 1. Hepatosplenomegaly. 2. Suboptimal visualization of the pancr eas secondary to overlying gas. 3. Echogenic kidneys suggestive of medic al renal disease. 4. Unremarkable pelvic ultrasound. 5. Normal Doppler of the abdomen. Signed: Leobardo Ayoub MD Report Verified Date/Time: 10/17/2018 1 0:02:56 Reading Location: [address] Radiolog y Reading Room Performing Organization Address City/State/Zipcode Phone Number Medic Trace US pelvis limited (10/17/2018 7:37 AM CDT) Specimen Narrative Performed At FINAL REPORT Medic Trace Abdominal and pelvic ultrasound dated 10/17/2018 Clinical information: elevated transamin ases Comment:Real-time transabdominal ult rasound was performed. Liver is enlarged and measures 21.9 cm i n length. The echogenicity of the liver is normal.No focal lesion is noted in th e liver.Spleen is enlarged measuring 15.1 cm. Gallbladder is surgically absent. No osmin iary dilatation is seen. Common bile duct measures 4 mm in diamet er.Main portal vein measures 13 mm in diameter. Pancreas is suboptimally visualized. Right kidney measures 11.8 x 4.1 x 5.5 c m.Left kidney measures 12.0 x 4.9 x 4.6 cm.Echogenicity of both kidney is increased.No hydronephrosis or solid mass seen in either kidney. No cystis seen in the either kidney. The urinary bladde r measures 409 cc. Postvoid bladder measures 173 cc. No ascites present in the abdomen. Abdominal aorta is normal in caliber. Th e IVC is patent. Real-time Color and Spectral doppler ult rasound of the abdomen was performed. Main portal vein measures 1.3 cm in diam eter. There is hepatopedal flow in the main portal vein with veloci ty 24 cm/sec.Right and left portal veins are patent. Proper hepatic artery, right hepatic art miguelito, and left hepatic artery are patent with resistive indices 0.8, 0 .7, and 0.7 respectively. IVC, Hepatic venous confluence, right HV , middle HV and left HV are patent. No mass or adenopathy is seen in the pel vis. Impression: 1. Hepatosplenomegaly. 2. Suboptimal visualization of the pancr eas secondary to overlying gas. 3. Echogenic kidneys suggestive of medic al renal disease. 4. Unremarkable pelvic ultrasound. 5. Normal Doppler of the abdomen. Signed: Leobardo Ayoub MD Report Verified Date/Time:10/17/2018 10:02:56 Reading Location: [address] Radiolog y Reading Room Procedure Note Interface, External Ris In - 10/17/2018 10:05 AM CDT FINAL REPORT Abdominal and pelvic ultrasound dated 10/17/2018 Clinical information: elevated transamin ases Comment: Real-time transabdominal ultra sound was performed. Liver is enlarged and measures 21.9 cm i n length. The echogenicity of the liver is normal. No focal lesion is noted in the liver. Spleen is enlarged measuring 15.1 cm. Gallbladder is surgically absent. No osmin iary dilatation is seen. Common bile duct measures 4 mm in diamet er. Main portal vein measures 13 mm in diameter. Pancreas is suboptimally visualized. Right kidney measures 11.8 x 4.1 x 5.5 c m. Left kidney measures 12.0 x 4.9 x 4.6 cm. Echogenicity of both ki dney is increased. No hydronephrosis or solid mass seen in eit her kidney. No cyst is seen in the either kidney. The urinary bladde r measures 409 cc. Postvoid bladder measures 173 cc. No ascites present in the abdomen. Abdominal aorta is normal in caliber. Th e IVC is patent. Real-time Color and Spectral doppler ult rasound of the abdomen was performed. Main portal vein measures 1.3 cm in diam eter. There is hepatopedal flow in the main portal vein with veloci ty 24 cm/sec. Right and left portal veins are patent. Proper hepatic artery, right hepatic art miguelito, and left hepatic artery are patent with resistive indices 0.8, 0 .7, and 0.7 respectively. IVC, Hepatic venous confluence, right HV , middle HV and left HV are patent. No mass or adenopathy is seen in the pel vis. Impression: 1. Hepatosplenomegaly. 2. Suboptimal visualization of the pancr eas secondary to overlying gas. 3. Echogenic kidneys suggestive of medic al renal disease. 4. Unremarkable pelvic ultrasound. 5. Normal Doppler of the abdomen. Signed: Leobardo Ayoub MD Report Verified Date/Time: 10/17/2018 1 0:02:56 Reading Location: [address] Radiolog y Reading Room Performing Organization Address City/State/Zipcode Phone Number GE RIS Vitamin B12 and Folate (10/17/2018 5:17 AM CDT) Vitamin B12 >2000 (H) 213 - 816 pg/mL [facility] Folate 13.3 >=7.0 ng/mL [facility] Specimen Blood Performing Organization Address City/[facility] Phone Number [address] [address] [place] Complement Component C3 (10/17/2018 5:17 AM CDT) C3 Complement 106 82 - 193 mg/dL [facility] Specimen Blood Performing Organization Address City/[facility] Phone Number [address] [address] [place] Complement Component C4 (10/17/2018 5:17 AM CDT) C4 Complement 28 15 - 57 mg/dL [facility] Specimen Blood Performing Organization Address [facility] Hospital[facility]ak Phone Number [address] [address] [place] Lipid panel (10/17/2018 5:17 AM CDT) Triglycerides 223 mg/dL [facility] Cholesterol 119 mg/dL [facility] HDL 30 mg/dL [facility] LDL Calculated 44 mg/dL [facility] Specimen Blood Narrative Performed At Triglyceride Reference Range: [facility] Low Risk <150 [id number] High Risk 200-499 Very High Risk>=500 Cholesterol Reference Range: Low Risk <200 [id number] High Risk>240 HDL Cholesterol Reference Range: Low Risk >=60 High Risk <40 LDL Cholesterol Reference Range: Optimal<100 Near Kuplznf262-817 Mppwzhndte684-028 [id number] Very High >=190 Performing Organization Address [facility] Phone Number [address] [address] [place] Troponin I (10/17/2018 12:39 AM CDT)Only the most recent of2 resultswithin the time period is included. Troponin I 0.03 0.00 - 0.03 ng/mL [facility] Specimen Blood Narrative Performed At Troponin I (TnI) levels must be interpreted [facility] in the context of [...] disease, and persistent tachyarrhythmia. Performing Organization Address City/State/Zipcode Phone Number [facility] [address] [place] [address] CENTER ECG 12 lead (10/16/2018 11:55 PM CDT) Specimen Narrative Performed At Ventricular Rate 85 BPM GE MUSE Atrial Rate 85 BPM P-R Interval 164 ms QRS Duration 156 ms Q-T Interval 428 ms QTC Calculation(Bazett) 509 ms P Matthews 50 degrees R Matthews -71 degrees T Matthews 35 degrees Normal sinus rhythm Right bundle branch block Left anterior fascicular block Bifascicular block Cannot exclude old anterolateral infarct Nonspecific T wave abnormality Prolonged QT Abnormal ECG No previous ECGs available Confirmed by MD PUGH YOCHAI ([id number]) on 10/17/2018 7 :03:25 AM Procedure Note Interface, External Ris In - 10/17/2018 7:03 AM CDT Ventricular Rate 85 BPM Atrial Rate 85 BPM P-R Interval 164 ms QRS Duration 156 ms Q-T Interval 428 ms QTC Calculation(Bazett) 509 ms P Matthews 50 degrees R Matthews -71 degrees T Matthews 35 degrees Normal sinus rhythm Right bundle branch block Left anterior fascicular block Bifascicular block Cannot exclude old anterolateral infarct Nonspecific T wave abnormality Prolonged QT Abnormal ECG No previous ECGs available Confirmed by MD PUGH YOCHAI ([id number]) on 10/17/2018 7:03:25 AM Performing Organization Address City/[facility] Phone Number [facility]oft Venous doppler legs bilateral (10/16/2018 11:21 PM CDT) Ejection Fraction [facility] TLAB [facility] CPACS Specimen Impressions Performed At Right Impression [facility] 1. There is no deep venous obstruction [...] are measured in cm Narrative Performed At LAB - Lower Extremities DVT Study [facility] Demographics Patient NameMORDEWEY SCHAFERLYDate of Study 10/16/2018 MYRANDA ALAS Visit [id number] nderFemale of 1970 Referring Dina Varner Number [id number] Physician Security Operations Specialist Kaveh SolispreAnya Washington MD Physician Procedure Type of Study: Veins: Lower Extremities DVT Study, VENOUS DOPPLER LEG, BILATERAL. Indications for Study:Rule out DVT. Patient Status:Routine. Study Location:Portable. Technical Quality:Adequate visualization . Risk Factors History of Disease + +----+ + !Diagnosis !Date!Comments ! + +----+ + !History/Risk Factors: !!Obesity, CKD, HTN, CHF,DM ! + +----+ + Procedure Note Interface, External Ris In - 10/17/2018 7:05 AM CDT PV LAB - Lower Extremities DVT Study Demographics Patient Name EMILY BARBOUR ate of Study 10/16/2018 MIRI A [employer] 48 Visit Number [id number] G inga Female Accession Number [id number] D ate of 1970 Referring Rusty Moreno MD R oom Number [id number] Physician Security Operations Specialist Kaveh Figueroa I nterpreting Virginie Washington MD P hysicimaru Procedure Type of Study: Veins: Lower Extremities DVT Study, [place] OUS DOPPLER LEG, BILATERAL. Indications for Study:Rule out DVT. Patient Status:Routine. Study Location:Portable. Technical Quality:Adequate visualization . Risk Factors History of Disease + +----+----- + !Diagnosis !Date!Comme nts ! + +----+----- + !History/Risk Factors: ! !Obesi ty, CKD, HTN, CHF,DM ! + +----+----- + Impressions Right Impression 1. There is no deep venous obstruction i n the common femoral, profunda femoral, femoral, popliteal, posterior t ibial or peroneal veins. 2. There is no superficial venous obstru ction in the great saphenous vein. Left Impression 1. There is no deep venous obstruction i n the common femoral, profunda femoral, femoral, popliteal, posterior t ibial or peroneal veins. 2. There is no superficial venous obstru ction in the great saphenous vein. Conclusions Summary Venous duplex imaging and compression o f the bilateral lower extremities were performed. The veins were adequate ly visualized. The bilateral venous systems were patent and compressible wi th no evidence of thrombus. Signature Velocities are measured in cm/s ; Diamet ers are measured in cm Performing Organization Address City/State/[facility] Phone Number [facility]ART[facility] CPACS 2D Echo W/Doppler(CW/PW/Color) (10/16/2018 9:34 PM CDT) Ejection Fraction [facility] TLAB [facility] Specimen Narrative Performed At Transthoracic Echocardiography Report (T TE) [facility] Demographics Patient NameEMILY BARBOUR Date of Study10/16/2018 MIRI Gender Female Visit [id number] Race Unknown [id number] Number Date of 1970 Elli Moreno MD Physician Age 48 year(s) SonographerSkatie weinstein CS, RVT Prosthetic Assistant Karely Montalvo [facility] Interpreting Ann Marie Martinez MD Physician Procedure [...] size is normal . RA size is philip l. 4. A trace of tricuspid regurgitation. Estimated peak systolic PA pressure cannot be determined due to inadequate TR velocity signal . The estimated RA pressure by IVC dynamics 5-10mmHg . 5. No pericardial effusion is visualize d. Previous Study No prior exam available for comparison. Signature Findings Technical Quality: Technically adequate exam. Left Ventricle The left ventricle is chamber size (by vol index) is normal (female - LVED vol - 29-61ml/m2). No ev idence of LV hypertrophy. LV endocardium is ad equately visualized with IV ultrasound e nhancing ag ent. All of the LV segments contract nor singh . Gl obal LV systolic function normal . LVEF by Si mpson's method of disk assessment is nor mal (60%) . Normal diastolic function. Left AtriumLA size is normal . LA is incompletely visualized, size based o n linear me asurement. Right VentricleThe right ventricular chamber size and systolic fu nction are within normal limits. S' 12 c m/sec. Right Atrium RA size is normal. Aortic Valve Normal AoV structure and function. No evidence of aortic stenosis. No evidence of aortic regurgitation. Mitral Valve Mild MV leaflet thickening. Mild MAC noted. No evidence of mitral regurgitation. Tricuspid ValveTV structure is normal. A trace of tricuspid regurgitation. Es timated peak systolic PA pressure cannot be de termined due to inadequate TR velocity s ignal . Pulmonic Valve Normal PV structure and function by limited views an d Doppler. AortaAortic root size (SInus of Valsalva diameter) i s no rmal . PericardiumNo pericardial effusion is visualized. IVC/SVC/PA/PV/PleuralThe estimated RA pressure by IVC dynamics 5-10mmHg . Th e inferior vena cava size is normal . Th e inferior vena cava is adequately visua lized. Chambers/Structures Left Ventricle LVIDd: 4.58 cm LVEDV:76.28 [...] m/sMV Peak A-Wave: 1.22 m/s E/A Ratio: 1. 14 Peak Gradient: 7.77 mmHg Deceleration Time: 178.9 [...] Transthoracic Echocardiography Report (TTE) Demographics Patient Name EMILY BARBOUR Date o f Study 10/16/2018 MIRI Gender Female Visit Number [id number] Race Unknown [place] [address] Number Date of 1970 Referr ing Rusty Moreno MD Physic patricia Age 48 year(s) Sonogr apher Rachel Dwyer RDCS, RVT Prosthetic Assistant Karely Montalvo RDCS Interp reting Ann Marie Martinez MD Physic patricia Procedure Type of Study TTE procedure:2DECHO W DOPPLE R(CW/PW/COLOR) (Routine) Indications:Acute Chest Pain/ Suspected CAD. Clinical History CHF, CKD, DM, HTN HGB 7.2 HCT 22.7 % Contrast Medium: Definity. Amount - 2 ml Height: 65 inches Weight: 95.25 kg (210 lbs) BSA: 2.02 m^2 BMI: 34.95 kg/m^2 HR: 84 bpm BP: 166/76 mmHg Summary 1. The left ventricle is chamber size ( by vol index) is normal (female - LVED vol - 29-61ml/m2). No evidence of LV hypertrophy. LV endocardium is adequately visualized with IV ultrasoun d enhancing agent. All of the LV segments contract normally . Global LV systolic function normal . LVEF by Brownlee's method of disk assessment is normal (60%) . Normal diastolic function. 2. The right ventricular chamber size a nd systolic function are within normal limits. S' 12 cm/sec. 3. LA size is normal . RA size is philip l. 4. A trace of tricuspid regurgitation. Estimated peak systolic PA pressure cannot be determined due to inadequate TR velocity signal . The estimated RA pressure by IVC dynamics 5-10mmHg . 5. No pericardial effusion is visualize d. Previous Study No prior exam available for comparison. Signature Findings Technical Quality: Technically adequate exam. Left Ventricle The left ventric le is chamber size (by vol index) is normal (femal e - LVED vol - 29-61ml/m2). No evidence of LV h ypertrophy. LV endocardium is adequately visua lized with IV ultrasound enhancing agent. All of th e LV segments contract normally . Global LV systol ic function normal . LVEF by Brownlee's method of disk assessment is normal (60%) . Normal diastol ic function. Left Atrium LA size is philip l . LA is incomplete ly visualized, size based on linear measurement. Right Ventricle The right ventri cular chamber size and systolic function are wit hin normal limits. S' 12 cm/sec. Right Atrium RA size is philip l. Aortic Valve Normal AoV struc ture and function. No evidence of a ortic stenosis. No evidence of a ortic regurgitation. Mitral Valve Mild MV leaflet thickening. Mild MAC noted. No evidence of m itral regurgitation. Tricuspid Valve TV structure is normal. A trace of tricu spid regurgitation. Estimated peak s ystolic PA pressure cannot be determined due t o inadequate TR velocity signal . Pulmonic Valve Normal PV struct ure and function by limited views and Doppler. Aorta Aortic root size (SInus of Valsalva diameter) is normal . Pericardium No pericardial e ffusion is visualized. IVC/SVC/PA/PV/Pleural The estimated RA pressure by IVC dynamics 5-10mmHg . The inferior santiago a cava size is normal . The inferior santiago a cava is adequately visualized. Chambers/Structures Left Ventricle [...] Mitral Valve MV Peak E-Wave: 1.39 m/s M V Peak A-Wave: 1.22 m/s E /A Ratio: 1.14 P eak Gradient: 7.77 mmHg D eceleration Time: 178.9 msec MV Garcia. Peak: Tissue Doppler E' Lateral Velocity: 0.12 m/s Aortic Valve Peak Velocity: 1.59 m/s Mean Velocity: 1.13 m/s Peak Gradient: 10.17 mmHg Mean Gradient: 5.74 mmHg AV Area (continuity): 3.16 cm^2 AV VTI: 30.19 cm AV DVI: 0.95 LVOT Peak Velocity: 1.38 m/s Pea k Gradient: 7.66 mmHg Mean Velocity: 0.91 m/s Radha n Gradient: 3.85 mmHg LVOT Diameter: 2.06 cm LVO T VTI: 28.62 cm LVOT Area: 3.33 cm^2 LVO T SV:95.34 ml LVOT CO: 8.01 l/min LVO T CI: 3.97 l/min/m^2 Performing Organization Address [facility] Phone Number [facility] Protein, random urine (10/16/2018 9:04 PM CDT) Protein, Urine 44 (H) 0 - 14 mg/dL [facility] Specimen Urine Performing Organization Address [facility] Phone Number [address] [address] [place] Osmolality, urine (10/16/2018 9:04 PM CDT) Osmolality, Ur 317 40-1,400 mOsm/kg [facility] Specimen Urine Performing Organization Address [facility] Phone Number [address] [address] [place] Chloride, random urine (10/16/2018 9:04 PM CDT) ChlorideUr 96 meq/L [facility] Specimen Urine Narrative Performed At Reference Range: No Normals [facility] [place] Performing Organization Address [facility] Phone Number [address] [address] [place] Urinalysis w/Microscopic (10/16/2018 9:04 PM CDT) Color, UA Light Yellow [facility] Clarity, UA Clear [facility] Specific [place], UA 1.006 1.001 - 1.035 [facility] pH, UA 5.5 5.0 - 8.0 [facility] Protein, UA 30 mg/dL (A) Negative [facility] Glucose, UA Negative Negative [facility] Ketones, UA Negative Negative [facility] Bilirubin, UA Negative Negative [facility] Blood, UA Negative Negative [facility] Nitrite, UA Negative Negative [facility] Leukocytes, UA Negative Negative [facility] Urobilinogen, UA 0.2 0.2 - 1.0 mg/dL [facility] RBC, UA <1 /HPF [facility] WBC, UA 3 /HPF [facility] Mucus Rare [facility] [facility] Squam Epithel, UA <1 /HPF [facility] Specimen Source [facility] Specimen Urine Performing Organization Address City/State/Zipcode Phone Number [facility] [address] [place] [address] [place] Urinalysis w/Microscopic + Reflex to Culture (10/16/2018 6:47 PM CDT) Color, UA Light Yellow [facility] Clarity, UA Hazy [facility] Specific [place], UA 1.006 1.001 - 1.035 [facility] [facility] pH, UA 5.5 5.0 - 8.[address] [facility] [facility] Protein, UA 30 mg/dL (A) Negative [facility] Glucose, UA Negative Negative [facility] Ketones, UA Negative Negative [facility] Bilirubin, UA Negative Negative [facility] Blood, UA Negative Negative [facility] Nitrite, UA Negative Negative [facility] Leukocytes, UA Trace (A) Negative [facility] Urobilinogen, UA 0.2 0.2 - 1.0 mg/dL [facility] RBC, UA <1 /HPF [facility] WBC, UA 10 /HPF [facility] Bacteria, UA Rare [facility] Mucus Rare [facility] Squam Epithel, UA 5 /HPF [facility] Amorphous Crystals Rare [facility] Specimen Source [facility] Specimen Urine Performing Organization Address City/State/Zipcode Phone Number [address] [address] [place] Urea Nitrogen, random urine (10/16/2018 6:47 PM CDT) Urea Nitrogen, Ur 232 mg/dL [facility] Specimen Urine Narrative Performed At Reference Range: No Normals [facility] [place] Performing Organization Address City/[facility] Phone Number [address] [address] [place] Sodium, random urine (10/16/2018 6:47 PM CDT) Sodium Urine 90 meq/L [facility] Specimen Urine Narrative Performed At Reference Range: No Normals [facility] Performing Organization Address City/[facility] Phone Number [address] [address] [place] Creatinine, random urine (10/16/2018 6:47 PM CDT) Creatinine, Ur 30.6 mg/dL [facility] Specimen Urine Narrative Performed At Reference Range: No Normals [facility] Performing Organization Address City/[facility]/Zipcode Phone Number [address] [address] CENTER Urine culture (10/16/2018 6:47 PM CDT) Result No growth [facility] Specimen Urine Performing Organization Address [facility]/Zipcode Phone Number [address] [address] [place] Hemoglobin A1c (10/16/2018 6:26 PM CDT) Hemoglobin A1C 7.2 (H) 4.3 - 6.1 % [facility] Specimen Blood Performing Organization Address City/[facility] Phone Number [address] [address] [place] Hepatitis panel, acute (10/16/2018 6:25 PM CDT) Hep A IgM Nonreactive Nonreactive [facility] Hep B C IgM Nonreactive Nonreactive [facility] Hepatitis C Ab Nonreactive Nonreactive [facility] HBsAg Screen Nonreactive Nonreactive [facility] Specimen Blood Performing Organization Address [facility] Phone Number [address] [address] [place] Creatine Kinase (CK) (10/16/2018 6:25 PM CDT) Total CK 439 (H) 29 - 200 U/L [facility] Specimen Blood Performing Organization Address [facility] Phone Number [address] [address] [place] Acetaminophen level (10/16/2018 6:25 PM CDT) Acetaminophen Level <5.7 (L) 10.0 - 30.0 ug/mL [facility] Specimen Blood Narrative Performed At Therapeutic Range: 10.0-30.0 g/mL [facility] Toxic Levels:>200.0 g/mL Performing Organization Address City/[facility] Phone Number [address] [address] C[place] Salicylate level (10/16/2018 6:25 PM CDT) Salicylate Lvl <5.0 (L) 15.0 - 30.0 mg/dL [facility] Specimen Blood Narrative Performed At Therapeutic Range: 15.0-30.0 mg/dL [facility] Toxic: >30.0 mg/dL [place]:>70.0 mg/dL Performing Organization Address City/State/Zipcode Phone Number [facility] [address] [place] [address] CENTER after 09/22/2018 Insurance Payer Benefit Plan / Subscriber ID Type Phone Address Group [employer]UE [employer]OSS/[employer]UE [employer] OS xxxxxxxxxxxx PPO [phone] [id number] SHIELD POS/PPO/[place] [address] Advance Directives For more information, please contact:[facility] [place] [address] [phone] Code Status Date Activated Date Inactivated Comments Full Code 10/16/2018 5:38 PM 10/21/2018 2:34 PM This code status was determined by: Patient
--- OUTSIDE RECORDS SUMMARY | 2019-09-23 21:31 | XMS REPORT | Continuity of Care Document ---
:1970 Author Organization [facility] t Address [address] [place] [address] Care Team Providers Name Role Phone Pcp Primary Care Physician Unavailable Farhat PAIGE Attending Clinician Unavailable Tania ARVIZU PKelli Attending Clinician Tiffanie ARVIZU Attending Clinician Anabell Frausto MD Attending Clinician DR XIOMARA Attending Clinician Unavailable Farhat PAIGE Admitting Clinician Unavailable DR XIOMARA Admitting Clinician Unavailable Payers Payer Name Policy Type Policy Number Effective Date Expiration Date S ninfa BLUE CROSS/BLUE xxxxxxxxxxxx [facility]/PPO/EPOxxxxx [facility] [id number], [place] [address] Problems Condition Condition Condition Status Onset Resolution Last Treating Co mments Source Name Details Category Date Date Treatment Clinician Date Splenomega Splenomega Disease Active [facility]-23 [facility] - 00:00: Medical 00 [facility] Obesity, Obesity, Disease Active [facility] Class II, Class II, 10-17 [facility] - BMI BMI 00:00: Medical 35-39.9 35-39.9 00 Center Elevated Elevated Disease 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-16 [facility] - diabetes diabetes 00:00: Medica l mellitus mellitus 00 [facility] with stage with 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, disease, with with long-term long-term current current use of use of insulin insulin SHREE SHREE Disease Active [facility] St (obstructi (obstructi 10-16 Em[facility] kes - ve sleep ve sleep 00:00: Medica l apnea) apnea) 00 [facility] Morbid Morbid Disease Active [facility] obesity obesity 10-16 [facility] - 00:00: Medical 00 Center Allergies, Adverse Reactions, Alerts Allergy Allergy Status Severity Reaction(s) Onset Inactive Treating Comm ents Source Name Type Date Date Clinician Diphenhy Propensi Active Rash [facility] dramine ty to 10-16 [facility] - Hcl adverse 00:00: Medical reaction 00 [facility] s Metformi Propensi Active Other (See Advised [facility] n ty to Comments) 10-16 not to [facility] - adverse 00:00: take Medical reaction 00 cause of [facility] s kidneys Linaglip Propensi Active Diarrhea, Loss of [facility] tin ty to Nausea And 10-16 appetite Luke s - adverse Vomiting 00:00: Medical reaction 00 [facility] s Diphenhy Propensi Active [place] to 25 [facility] taminoph adverse 00:00: st en reaction 00 s to drug Metformi Propensi Active [place] to 625 [facility] adverse 00:00: st reaction 00 s to drug [place] Propensi Active [place] to 625 [facility] adverse 00:00: st reaction 00 s to drug Family History Family Member Diagnosis Comments Start Date Stop Date Source Natural brother Congenital heart [facility] - disease Medical [facility] Natural father Stroke [facility] Natural mother Diabetes [facility] Natural sister Asthma [facility] Social History Social Habit Start Date Stop Date Quantity Comments Source History of tobacco Current smoker [facility] - use [facility] Binge Medical Christopher ter Sex Assigned At [facility] Cigarettes smoked 2018-10-16 2018-10-16 [facility] - current (pack per 00:00:00 00:00:00 Medical Center day) - Reported Cigarette 2018-10-16 2018-10-16 [facility] - pack-years 00:00:00 00:00:00 Medical Center History SDOH 2018-10-16 2018-10-16 1 [facility] - Alcohol Frequency 00:00:00 00:00:00 [facility] Alcohol intake 2017-10-10 2017-10-10 Current [facility] thodist 00:00:00 00:00:00 non-drinker of alcohol (finding) Smoking Status Start Date Stop Date Source Former smoker 2018-10-16 00:00:00 2018-10-16 00:00:00 [facility] Medications Ordered Filled Start Stop Current Ordering Indication Dosage Frequency Signature Comments Components Source Medication Medication Date Date Medication? Clinician (SIG) Name Name aspirin 81 2020- No 81mg QD Take [address] MG EC 10-22 tablet (81 [facility] - tablet 00:00: 23:59 mg total) Medic al 00 :00 by mouth Center daily. allopurinol 2020- No 100mg QD Take [address] (ZYLOPRIM) 10-22 tablet [facility] - 100 MG 00:00: 23:59 (100 mg Medical tablet 00 :00 total) by Center mouth daily. furosemide 2020- No 40mg QD Take [address] (LASIX) 40 10-22 tablet (40 Emili kes - MG tablet 00:00: 23:59 mg total) Ma dical 00 :00 by mouth Center daily. NIFEdipine 2020- No 30mg QD Take [address] (ADALAT CC) 10-22 tablet (30 L ukes - 30 MG 24 hr 00:00: 23:59 mg total) Medical tablet 00 :00 by mouth Center daily. magnesium 2019-0 Yes 500mg Q.5D Take [address] gluconate 7-01 mg by [facility] - (MAGONATE) 18:45: mouth 2 Medi donna 27.5 mg 48 (two) Center magne- sium times (500 mg) daily. tablet ferrous 2019-0 Yes 325mg Take 325 [facility] sulfate 325 7-01 mg by [facility] - (65 FE) MG 18:45: mouth Medica l tablet 48 daily with Center breakfast. cholecalcif 2019-0 Yes Take by [facility] veronica, 7-01 mouth. [facility] - vitamin D3, 18:45: Medica l 2,000 unit 48 Center Cap cyanocobala 2019-0 Yes QD Take by [facility] min 7- mouth [facility] - (VITAMIN 18:45: daily. Medical B-12) 100 48 Center MCG tablet amitriptyli Yes 50mg QD Take [address] ne (ELAVIL) 10-16 by mouth Luke s - 50 MG 18:45: nightly. Medical tablet 47 Center DULoxetine 2019-0 Yes 20mg QD Take [address] (CYMBALTA) 701 by mouth [facility] - 20 MG 18:45: daily. Medical capsule 47 Center magnesium 2018-0 Yes 500mg Q.5D Take [address] gluconate 6-25 mg by Methodi (MAGONATE) 11:40: mouth 2 st 500 mg 34 (two) tablet times a tablet day. cholecalcif 2018-0 Yes 2000U QD Take 2,000 [address] veronica, 6-25 Units by Methodi vitamin D3, 11:40: mouth st (VITAMIN 34 daily. D3) 2,000 unit capsule capsule furosemide 2017-0 Yes 40mg Q.5D Take 40 mg [place] (LASIX) 40 6-25 by mouth 2 Met hodi mg tablet 11:39: (two) st 16 times a day. DULoxetine 2018-0 Yes 30mg QD Take 30 mg [place] (CYMBALTA) 6-25 by mouth Metho di 30 MG 11:39: daily. st capsule 16 insulin 2018-0 Yes 20U [id number] Inject 20 [place] lispro 6-25 [id number] Units Method i (HumaLOG) 11:39: 3D under the st 100 unit/mL 16 skin 3 injection (three) times a day before meals. pantoprazol 2018- Yes 40mg QD Take 40 mg Castro e 6-25 by mouth Methodi (PROTONIX) 11:39: daily. st 40 MG EC 16 tablet insulin 0 Yes 40U QD Inject 40 [place] glargine,hu 6-25 Units Methodi m.rec.anlog 11:39: under the s t (TOUJEO 16 skin SOLOSTAR daily. U-300 INSULIN SUBQ) fenofibrate 2017-0 Yes 160mg QD Take 160 [place] (LOFIBRA) 6-25 mg by Methodi 160 MG 11:39: mouth st tablet 16 daily. amitriptyli 2018-0 Yes 100mg QD Take 100 [place] (ELAVIL) 6-25 mg by Methodi 100 MG 11:39: mouth st tablet 16 nightly. liraglutide Yes 1.8mg QD Inject 1.8 [place] (VICTOZA 6-25 mg under Methodi 2-GILBERTO) 0.6 11:39: the skin st mg/0.1 mL 16 daily. (18 mg/3 mL) pen injector ferrous 0 Yes 325mg Q.5D Take 325 [place] sulfate 325 6-25 mg by Methodi (65 FE) MG 11:39: mouth 2 st tablet 16 (two) times a day. cyanocobala 0 Yes 250ug QD Take 250 [place] min 6-25 mcg by Methodi (VITAMIN 11:39: mouth st B-12) 250 16 daily. MCG tablet Vital Signs Vital Name Observation Time Observation Value Comments Source Systolic blood 2018-10-21 08:55:00 114 mm[Hg] [facility] Diastolic blood 2018-10-21 08:55:00 59 mm[Hg] [facility] S t [facility] Heart rate 2018-10-21 08:55:00 70 /min [facility] Body temperature 2018-10-21 08:55:00 36.67 Nicole [facility] Respiratory rate 2018-10-21 08:55:00 18 /min [facility] Body weight Measured 2018-10-21 08:55:00 101.197 kg [facility] BMI 2018-10-21 08:55:00 37.13 kg/m2 [facility] Oxygen saturation in 2018-10-21 08:55:00 97 /min [facility] Arterial blood by Medical Ce nter Pulse oximetry Body height 2018-10-16 18:00:00 165.1 cm [facility] Procedures Procedure Date / Time Performing Clinician Source Performed RHYTHM STRIP - SCAN 2018-10-23 13:40:36 Provider, Default [facility] POCT-GLUCOSE METER 2018-10-21 08:07:00 Jett, [facility] HEPATITIS A PANEL 2018-10-21 05:03:00 Harjeet Villatoro [facility] HEPATITIS B PANEL 2018-10-21 05:03:00 [facility] HEPATIC FUNCTION PANEL 2018-10-21 05:03:00 Tiff Colmenares [facility] LACTATE DEHYDROGENASE 2018-10-21 05:03:[address] [facility] ([facility]) [facility] FERRITIN 2018-10-21 05:03:00 Tiff Colmenares [facility] BASIC METABOLIC PANEL (7) 2018-10-21 05:03:00 Rusty Moreno [facility] MAGNESIUM 2018-10-21 05:03:00 [facility] POCT-GLUCOSE METER 2018-10-20 21:07:00 Jett, [facility] POCT-GLUCOSE METER 2018-10-20 18:15:00 Jett [facility] CHROMOSOMES CANCER STUDY 2018-10-20 11:51:00 Tiff Colmenares [facility] FLOW CYTOMETRY REQUISITION 2018-10-20 11:51:00 Tiff Colmenares [facility] FLOW CYTOMETRY 2018-10-20 11:51:00 Tiff Colmenares [facility] BONE MARROW PROCESS. 2018-10-20 11:50:00 Tiff Colmenares [facility] POCT-GLUCOSE METER 2018-10-20 11:29:[address] JettBhav[address] [facility] CT 2018-10-20 10:57:00 EscTiff proctor [facility] - BIOPSY/ASPIRATION/INJECTIO Medic co Center N BONE MARROW EXAM 2018-10-20 10:30:00 Tiff Colmenares [facility] PT/APTT 2018-10-20 05:15:00 [facility] PHOSPHORUS 2018-10-20 05:15:00 Lauren Dong [facility] BASIC METABOLIC PANEL (7) 2018-10-20 05:15:00 [facility] MAGNESIUM 2018-10-20 05:15:00 [facility] CBC W/PLT COUNT & AUTO 2018-10-20 05:15:00 [facility] (CELLAVISION MANUAL DIFF) 2018-10-20 05:15:00 [facility] POCT-GLUCOSE METER 2018-10-19 21:25:00 [facility] TRANSFUSION SERVICE REPORT 2018-10-19 17:50:39 Provider, Debra [facility] - - SCAN Scanning [facility] POCT-GLUCOSE METER 2018-10-19 17:26:00 [facility] POCT-GLUCOSE METER 2018-10-19 08:59:00 [facility] HEPATIC FUNCTION PANEL 2018-10-19 05:30:00 [facility] MAGNESIUM 2018-10-19 05:30:00 [facility] PROTHROMBIN TIME/INR 2018-10-19 05:30:00 [facility] B-TYPE NATRIURETIC FACTOR 2018-10-19 05:30:[address] [facility] (BNP) [facility] PHOSPHORUS 2018-10-19 05:30:00 Mil Chavez [facility] URIC ACID 2018-10-19 05:30:00 Mil Chavez [facility] CALCIUM, IONIZED 2018-10-19 05:30:00 Harsha [facility] COMPREHENSIVE METABOLIC 2018-10-19 05:30:00 Harsha [facility] CBC W/PLT COUNT & AUTO 2018-10-19 05:30:00 Harsha [facility] (CELLAVISION MANUAL DIFF) 2018-10-19 05:30:00 Hussein Mcleod [facility] PREPARE LEUKO-REDUCED RBC 2018-10-18 23:54:00 Keyon [facility] POCT-GLUCOSE METER 2018-10-18 21:18:00 Tiffanie [facility] POCT-GLUCOSE METER 2018-10-18 17:55:00 [facility] TRANSFUSION SERVICE REPORT 2018-10-18 17:50:33 Provider, [facility] - - SCAN Scanning [facility] CT CHEST WITHOUT IV 2018-10-18 15:23:00 Darrian Tiff [facility] CT ABDOMEN/PELVIS WITHOUT 2018-10-18 15:23:00 Tiff Colmenares [facility] CONTRAST [facility] RAPID INFLUENZA A&B SCREEN 2018-10-18 12:37:00 Tiff Colmenares Kelli [facility] RESPIRATORY PANEL [facility] 2018-10-18 12:37:00 iTffanie [facility] D-DIMER 2018-10-18 12:07:00 Tiff Colmenares [facility] [id number] 2018-10-18 12:07:00 Tiffanie [facility] EBV VIRAL LOAD 2018-10-18 12:06:00 Tiff Colmenares Kelli [facility] CMV PCR, QUANTITATIVE 2018-10-18 12:06:00 Tiff Colmenares [facility] HIV-1 ANTIGEN WITH HIV-1/2 2018-10-18 12:06:[address] [facility] ANTIBODY [facility] RHEUMATOID FACTOR AB, 2018-10-18 12:06:[address] [facility] - REFLEX TO TITER [facility] PROTEIN ELECTROPHORESIS, 2018-10-18 12:06:[address] [facility] SERUM [facility] HAPTOGLOBIN 2018-10-18 12:06:00 Tiff Colmenares [facility] POCT-GLUCOSE METER 2018-10-18 10:43:00 Rusty Moreno [facility] ANTI-NUCLEAR ANTIBODY 2018-10-18 09:43:[address] [facility] (ANGELES) [facility] ANGELES TITER AND PATTERN 2018-10-18 09:43:00 Saturnino [facility] ANTI-MITOCHONDRIAL AB, 2018-10-18 09:42:00 Saturnino [facility] - REFLEX TO TITER [facility] CERULOPLASMIN 2018-10-18 09:42:00 [facility] 2018-10-18 09:42:00 Saturnino [facility] IRON, TIBC, % SAT. 2018-10-18 09:42:00 Saturnino [facility] (WITHOUT FERRITIN) [facility] TISSUE TRANSGLUTAMINASE 2018-10-18 09:42:00 Saturnino [facility] - ABS,IGG AND IGA [facility] ALPHA FETOPROTEIN (AFP), 2018-10-18 09:42:00 Saturnino [facility] - TUMOR MARKER [facility] POCT-GLUCOSE METER 2018-10-18 08:52:00 Rusty Moreno [facility] EOSINOPHIL SMEAR, URINE 2018-10-18 05:42:00 Mil Chavez [facility] BASIC METABOLIC PANEL (7) 2018-10-18 05:42:00 Arif, Sahar [facility] HEPATIC FUNCTION PANEL 2018-10-18 05:42:00 [facility] MAGNESIUM 2018-10-18 05:42:00 [facility] PROTHROMBIN TIME/INR 2018-10-18 05:42:00 [facility] CALCIUM, IONIZED 2018-10-18 05:42:00 Mil Chavez [facility] PHOSPHORUS 2018-10-18 05:42:00 Hussein Mcleod [facility] TRIGLYCERIDES 2018-10-18 05:42:00 Escudier [facility] RETICULOCYTE COUNT 2018-10-18 05:42:00 Darrian Tiff [facility] CBC W/PLT COUNT & AUTO 2018-10-18 05:42:00 [facility] (CELLAVISION MANUAL DIFF) 2018-10-18 05:42:00 Hussein Mcleod [facility] POCT-GLUCOSE METER 2018-10-17 21:52:00 [facility] ECHOCARDIOGRAM REPORT - 2018-10-17 21:11:15 Provider, Debra [facility] SCAN Scanning [facility] XR CHEST 1 VIEW 2018-10-17 18:00:00 Mil Chavez [facility] PORTABLE/BEDSIDE Medical Center FERRITIN 2018-10-17 16:13:00 [facility] LACTATE DEHYDROGENASE 2018-10-17 16:13:00 [facility] (LDH) [facility] FIBRINOGEN 2018-10-17 16:13:00 [facility] HEREDITARY HEMOCHROMATOSIS 2018-10-17 16:13:00 [facility]Rusty wade [facility] DNA [facility] TRANSFUSE LEUKO-REDUCED 2018-10-17 15:56:57 [facility] RED BLOOD CELLS [facility] POCT-GLUCOSE METER 2018-10-17 12:44:00 [facility] NM LUNG SCAN (V/Q) 2018-10-17 10:19:00 [facility] ABORH, MANUAL 2018-10-17 08:28:00 Yolanda Amos [facility] POCT-GLUCOSE METER 2018-10-17 08:27:00 [facility] TYPE AND SCREEN, AUTOMATED 2018-10-17 08:06:00 [facility] US ABDOMINAL WITH DOPPLER 2018-10-17 07:37:00 [facility] US PELVIS LIMITED 2018-10-17 07:37:00 [facility] BASIC METABOLIC PANEL (7) 2018-10-17 05:17:00 [facility] HEPATIC FUNCTION PANEL 2018-10-17 05:17:00 [facility] LIPID PANEL 2018-10-17 05:17:00 [facility] MAGNESIUM 2018-10-17 05:17:00 [facility] PROTHROMBIN TIME/INR 2018-10-17 05:17:00 [facility] IRON, TIBC, % SAT. 2018-10-17 05:17:00 [facility] (WITHOUT FERRITIN) Medical Cente r FERRITIN 2018-10-17 05:17:00 [facility] VITAMIN B12 AND FOLATE 2018-10-17 05:17:00 [facility] COMPLEMENT COMPONENT C4 2018-10-17 05:17:00 Maged Mckeon [facility] URIC ACID 2018-10-17 05:17:00 Maged Mckeon [facility] CBC W/PLT COUNT & AUTO 2018-10-17 05:17:00 [facility] TROPONIN I 2018-10-17 00:39:00 [facility] ECG 12-LEAD 2018-10-16 23:55:45 Unknown, [facility] VENOUS DOPPLER LEGS 2018-10-16 23:21:00 [facility] POCT-GLUCOSE METER 2018-10-16 22:07:00 [facility] 2D ECHO W/ DOPPLER 2018-10-16 21:34:03 [facility] (CW/PW/COLOR) [facility] URINALYSIS W/ MICROSCOPIC 2018-10-16 21:04:00 [facility] OSMOLALITY, URINE 2018-10-16 21:04:00 [facility] PROTEIN, RANDOM URINE 2018-10-16 21:04:00 [facility] CHLORIDE, RANDOM URINE 2018-10-16 21:04:00 [facility] URINE CULTURE 2018-10-16 18:47:00 [facility] URINALYSIS W/ REFLEX URINE 2018-10-16 18:47:00 [facility] SODIUM, RANDOM URINE 2018-10-16 18:47:00 [facility] CREATININE, RANDOM URINE 2018-10-16 18:47:00 [facility] UREA NITROGEN, RANDOM 2018-10-16 18:47:00 [facility] HEMOGLOBIN A1C 2018-10-16 18:26:00 [facility] COMPREHENSIVE METABOLIC 2018-10-16 18:25:00 [facility] PROTHROMBIN TIME/INR 2018-10-16 18:25:00 [facility] TROPONIN I 2018-10-16 18:25:00 [facility] SALICYLATE LEVEL 2018-10-16 18:25:00 [facility] HEPATITIS PANEL, ACUTE 2018-10-16 18:25:00 [facility] CREATINE KINASE (CK) 2018-10-16 18:25:00 Rusty Moreno [facility] CBC W/PLT COUNT & AUTO 2018-10-16 18:25:00 [facility]Rusty wade [facility] Plan of Care Planned Activity Planned Date Details Comments Source Future Scheduled 2019-11-17 INFLUENZA VACCINE [place] [facility] 00:00:00 [code = INFLUENZA VACCINE] Future Scheduled 1991-10-14 Screening for [facility] Test 00:00:00 malignant neoplasm of cervix (procedure) [code = 815181518] Encounters Start End Encounter Admission Attending Care Care Encounter Source Date/Time Date/Time Type Type Clinicians Facility Department ID 2018 2018 Outpatient Aurelio [facility] [id number] 08[facility]15[facility]00 [facility] Results Test Description Test Time Test Comments Results Result Comments Source Bone Marrow Exam 2018-11-14 14:30:00 Test Item Value Reference Range Interpretation Comme nts Case Report (test code = 104) Bone Marrow Pathology Report Case: [id number] Authorizing Provider: Tiff Colmenares MD Collected: 10/20/2018 1030 Ordering Location: [address] Received: 10/20/2018 1151 Service Pathologist: Damián Mckeon MD Specimens: A) - Iliac Crest, Left B) - C) - ADDENDUM (test code = 3381) e5pcgVCrTPPohCZnItVqPLWlUWIqx2npXYRfySA u [file] bmFsIGRldGFpbHMuIFxwYXJ9 DIAGNOSIS (test code = 3220) a1rxcYCqWFQuc8vpYZTtxKXwJzNxSvWmVrHtWf pc kRFmGAbipoTcZRqgu1YpN9JxVdWlCYqcvoGcDVSd UigsxbksBTZyRZE0ndLfVTXeDBckBTGfNOquAh9d dJRycCcmAeDcGGFfl2mxuqWHeewbvCa1d0cqUBOq PlB7pFLlRUgkP3qbfuCdlQVuUHXsUQk6xX51TOBl kR0hdVAbKUhveyZrGuZ4OEekDHXlMeV3RYXixDMm HRRxQ8zeKTGuMTtoWLZyFXxneCQxOBK9qEesv6H7 tOTunBMwdRanLxBeIxSyYPPRc8OhZUi0tCfiM0Iu GIFjNwV1hMDmFRJyELlxGWUcSLRqueH5fB00HOkn aoZ5sKMwp2Ygg78mm933eA1wiOSgNMK7UUAgQPZl aBGtURTuGMV8KTXcoWYsO4w0YxIgtNDpP9X5XbFd bVCwX3W9BkObtMOcP2B4KnAocBUpSZUweLQcRe1h rRXhcIXtgr5vbh66CBX4g6PoyZrbDOV4EWP4ErJa Kq5owPCsZWWvQJUeqRTqMCZqXJ2zlGRoXBPtbE7u dojfSPTwHtFyvtajSTUpjQqevfNfPv7fyVyhJOS5 ZPpzI2flhJ6tAzA7VFghU1qqhI4aZIp3TMszjXN5 EIDbnS6fNO3bdhcfy8qzTyXjSE0jwmjwc3gpDzHz PU8fxez2f6owWhAsEY5sxuicf0dmHoTwIBpgKIUf inaaQWTlb5UtmullHWVxg3ViD2BdfHbfP51bdRxw U42nROHqzGkvjG6evFtzoO7yUwAsAePyDPeiaAxp dXAteekaZUqwspAlMCfhdqedSAFmSXkyW7uyFbNa JWJdyPluXIjrv0NeULYtEMSoPlPnOf6NLVNXNDKU O2woNPIHEZXSTXGsGWGUY3ZgXVYEEXXPTDCGSMWX FtbXLBHOOJ4TF2e3CEYvxgFIA5LJL5YKMExQLIOT OUp9DTGpVU4FKsJSPnZMSXDFZESUZZfMWdOAO7Zy PATYSSTJRZ2LTZWBOcPLVgKgOYbWYZRVHDfMAOGW VXBWZLwQS7IEME7NYTRATwAZMSYXCjFVRGNWZO8k qAWuEH2UXU6YLsMVO9jSV9rLEW3UXWfYPSEBP6VR MI9MPWnXRBFcVWGGKSZMH0MfF8HkMBsIGGpQAYJn K0UzKDQXCVBaVGNWB4AQJKFfAIAtsfCSXNKYXBWo RVZLOF9VEDBJIdEUNLJMXNPpVXOwkaZUQP0BDPlE EHjJW71rWSLjOYJZItTPA7USItnpRSOaL2KBQORV RCqOJ9QPWYFtM34EGWZXQY3rWALeotnaYFJlIZUY MGMEAXXLVJOHCF4DHKkdfPFlAG3EFg6EO6aHPYAz OQ1DCImXZauxZLJbCu0fJ9hLS3XFDPWTSgfsGtpL X2RDQhQllDYnaQaxypPsYEphj4UiRNnmMYTtKX8p cSvrYMMfOP5tHLOqZ6utwL8ngnt6RtRrXWZmQkX4 WVIlssT2Bzd1HAGjRGssn2kdy1FxPEJtMYh6nUyx BmJjEXRyf3toqxTmIaOwSRKsTMSpCJXzfMUgX389 h4ptw7dlpzNsmFT5VJYrNBH3ITstuqKoxaS2AWll bAWjZoT2BWaluyGdYJpbqxGlxfVjNlc6FBDkP986 HLH4jQhuq2ljYNS3QCHyJHZjEnQtOi1hdWByY474 YJSeRDYIGYAmlEp5ATHqihVeqrQroVHOo724Y924 f1jpHWTcgiTnzXvWluqkc6hgY860SGHogYZkceBr UiFjIIZgdUXgoFP9TPIoTN9cebkeFMrxQNbbVHYx rxY7CZYzzCHhX4HkOZVtTS1isvciSFS7GYzhWJQd JTA0JyMvZHRzl4Tizgi4JmEvqu4lgy60HQH0n2Nr aXkqKIX6QTC5JhNsIt2ekTDbNFFgKG3lFnGvlMLw IJYsdp16bPknDZyuCSS2IGIeazRql4Oia1foRiEr hfDuD6esD4LeOVPySEFqNJAjPrXjpdHkg7Wut8Rt mHPlqVr7u8baZONqOWIwcEhzk6bzIBK2HUZmfEEt U0cbjL7fKYMmVU3qbygok9wrSObtFMxoLVUgiFD0 mhH6LVWimQJmD9UisD3oGHTyHGhpSEFugzh9VjYl Ug4plIYemQmzNRmuIhimQHxhFYIaujGhtaPiiFmh ZGVjXHBsYWluXHBsYWluXGYwXGZzMjRccWxcbGFu JkTnWjNnbLvreAurTMwdDvLwQTXdCRcyK4uhUaDz SsRrXfy9RSUutKHiXYOrAqh3QVYfaZGmSAAAaTej pZ8uFVLmiHuvpW7odSW3JXLhsiNydYTXlG4cGXEE nS4iObD6QfWrDoH3ICr3YeKpvUPoqE7= COMMENT (test code = [id number]) m8hyiGExYANacPUmEgOvWIMiVFBfq7mdRFEizWMy JoNxAnUeLlUgZrfuzARrXMRhGtUmb9jhb403wLPe z1jxXWTiFzH8hIOdDQIshKEoE456IGApZEgna6au k3IdGZUbxBExb9G6OBLLwlnozWm1gNoyB47dd9L1 GjipW9suRBWvWWAhZ6AsOP0cCWLhJdy7CAU0MHU5 GRGzJXLsY4UkAV9yBCAhwUQtMDh1y2vyqUudSRHx RPV1g5jxPKlarpMfQN4mno1ndZj1y4zmibOdZEAc ZYFzlYUSPWVsR7VbnShzXu1peQq2lWowEzctQGG8 Lan7XT6vyl89vmv5fRktCHUwxkadIuP3ZUlyGPAd tilnJFj9VMppMWSykLrtSTgyNXCzlvchLKbxCVIp mIgjLQazLDEiSxcxWXycTBLwIOI5SFzbp888MMK5 RVmgk5tcs8xpaKWzJsa7PNObWuRjDwbwDBoky8Bw e6zoSGPikt0qORI3sQTslRtat3K0kNAfANPqcNXd wjQqCTOqAdK4YLxwMM2mqv56IDKzEPO5jp2hvEAb zWwuanSbaMBwTCjiU7SzYJYnp196HQCqL2HrCQPf w0T1ctXhTeTbOXGcjKD3qaN5TWZfZGi0zTNyjqK3 vjMcbSNdK5xgvJ27TmCcaXWlA2CxlP14YpSxnDBc H8RomM09MjZknIPuS6QlsV98YvZwoCKzXIEysABs Uw9djYKouCZlf7XdyGOuIHqyG60kh844MPZuwsMn Z2yukABfckymkJLydkgtUXtokmH7TTExRCJuRAhv XGYxXGZzMjBcbGFuZzEwMzNcaGljaFxmMVxkYmNo JRQaWVywC8ugXiZqFvZkDLEYnLGvNRTembZawcIm l8MjxJ7ev7ihEeFxnpNktU54fc1etJZjg4F0pHaa IZA6zRDnqsYjSK3nPIm9bKHad60xHE5wYSXqxJQm IGxldWtlbWlhLiBUaGlzIHBhdGllbnQgaGFzIGEg smFqr8C6TZXjI5cxxpqoZNkueOebrS6rqJPhHpZi qpTpePEsMS9sAMggeDB3h8YsmERrg17kV2QciXHt jvIjEUShtOvxNZYxPIL3qd6fuITmxRRvoTUpfYAk SYGdccNvOEmcVKSajNCnWEZzAZAcw2HmmW6io1id WoNdaD3wfW6mKQ4wWNYxYMPpTOwty9TdlH8upUEc nsDssxTvh30htEKyePWpElPtifCxY150eZLkRhMx ruJcC4AmfgPkrA91XLRiktP9wYN9CRLenPOaQPKo gvNpwe0bKk8kUYYdPCTbefDlXM0tNJKdQoMojcLf is2tpxsfXyZqzZFtn3cmKO6tz3OaCWCrUtVXy2xd Z3QxVBQgJL7hNBN2fC2oCX6zeSrlXDQ0bBMhVNWo BTGcBLG8jhEmjtRosWDgGD1xjU8cEOG5pGSqLHTh r7OxaTKquJ8yNyClhNLhvIJyEFyyPJMcOGYdYOAl DRJnWWLjsJ0skI7aJOPfvp1= CPT Code(s) (test code = 3357) f2rbxTCbLKGpgYTtAlBaAHZzZCXak8ilXWFt bGFu VkUwAgZfXbZwZphhuCFkULQaUfJiz9ndb779gXKf b4lgLPGxEsE2fTAfRTQdfQLpC680XEFhSDumc4gf e8IbMUOsgHHtu3K4UISIeleoxZu1iEujK06fj7W7 PuyqW3ogRGRkZBRcC5HfHA8nYPFfNbk8OSP8NAL7 PDKcBKOgG1QsLZ7cIWOboUKdTBj2v1hrxVsmQMBp MNC4h9vyFVzlfqV6YC7njo4muOj8o2axmqEcTOBo QTNhuRRTBNIaC2ArlWfzCm7waGn9lWlwTozcDSP0 Tzd0CA2rqo97tvl4uOodIEYiqbxpOqV6TIstSIJn odzgROs3LPqoXZMaqRqgBDmcZFPqrinlZShcYAKk jTjiTUanQXSbKdhpXAxkDWFyGFG0DXfxm306IXL0 JLtxj7uxu7eznEGeMss1ZBIqExRrYppiZTces9Yg d9yuMDYlLaO9GVtaPG4xop45YHPySBZ5wg2hdTEs uNfkzuYnwTViBSzgP2WdMHDis075QIMrU7ZtLMUc y2M4yrHkAeJxOMBsxWX9jpI2MWMwYCc2bCVykoH0 djZvkLQeL9mtxI56BhVthEMsB8MepC36MyQtyTLv K1KtwQ24UuUkaNDkK8LyvK33HmUuiLEdGOWoqDVk Gj5teOIzkCSof1GurXKiPMxcW33if642KXUglxJp K2subHPxkwynkGIlkfwlMFfszzA1RXWpQIQoJNay XGYxXGZzMjJcbGFuZzEwMzNcaGljaFxmMVxkYmNo QTNgBNefW2mhVsWiHaUxInP7PWI4LXuxNWWqVSz7 LLt9WwY8XInhYkxwDHiwKHA8BGe4TpRhPDZ8QWJ9 XdbmSUmvRDD6ISrqNGKoyAUoTJtpyVRbxdblLFeu ahT4BAPgATfvBYLzXPGjUpOuiRYapK== CLINICAL HISTORY (test code = 3356) d7ahlCAzKBNlxQSqQiGwAUGsWPPrq3d cZGVmbGFu XnCyZwVrHsYuMryeiCKxZDStZtPbt9lai991xTGb p1shEIRsJsI1tOWeCXPpcHPmF426h4ktw1aoseNw rZM7KHPtYVL6PZvexcAmzlN3TBdbtGIpKfM8CJto jlTqKEwzflHnedMdGvd1LCVqI578OJP8hQlfw8oh QWB8EGVvEQUpIxBnMa4miMLeU483MJWjOLRZMHYb rZc6DPLpruPaueJtoMOGa237U818i0crQJJdxaSz fSwCxijac2xvY708WWNczXQnojIbImOuWHAgjPUo yWY4QFIiFN7xrtyvSzThJA0cyndpCsExGQ9njfl3 RcVaUL4cvqkfWqKbSJzsUUOohtkkSKOty7Opahcy JQ8cR4Rre1B7eT7hhREdWAVwvDGbDiKvSJQtuu6f rEWzEUqfy6HbBSE2dwB9vQIyvQUgUKYyYW96Ueml g7KxRleeWMG1CWNrdsJoh0Ugk3piRzPlfuRmE4kz L4DdEEIwEJDaBEVyDvQagbAtu2Rrz0YqwTJolBg9 u7sqTNIsFSAgnWqkm8ruJFD1BOAfW9L4mMCng7fk PTkoQRHygXA6aubyNRlwSVIivdO6xhalCAynEDTe lRZ3qnpoTDwcIHKnAfT8jvprUPibJIOpUPD8TCan c496VQN6OGbsOwxoXPohSXZeraEcxtBisDskJFFh WMSmMWtvAWPrTQooLNSaUWDpUsCttOtfvTqxjI6a DrTwCbBfCQdjPE7bXZBpC3dlcLCpXCMaONVrK6uu FdDeiV4xaUuxJKnnflVfDJYgHL7kYQGluPXphG== SPECIMEN SOURCE (test code = 3377) k4zruUSnWQVikFPsGtCxLCOkYKQvx6ex ZGVmbGFu EiWzTbAbNpTyGvjzqUYsHFFhWgPni0mui727vRNd s8oxBERqWmT0zBNlPALmxBAgM017f9tmz3ysmzHd iIY2KPOlSCR4URiylmOaaoD4WNlfiCXtIjT3OSks npWwNKyflxFbhgOdPwb0VIYdU498BQW0gFhuh7yg YBW2FUWyDDOcZaEfZt0vyTFwH539CCIySOFLAJPn tRo9CGWbojTckaSxpQDOv761G692y6ugCCFeavFx kRzQseyhd5hkV033NBNupTSsxrHnGtZbYZNufJSh dPW8WTReAA3wjcqtTfWyJQ0hsrswAgJlXM0wmix9 OjOfAW8huzquOdUzZTifRMZynokyQXHlk7Eynpps BS9kI5Soj7R5tZ3heLXqVHDxnPTaRjKmTJWqzv4i yYKgJLcya3DzXEF6igO5jOKazSBnDUGyHK66Jfkb l3NqUbmcRPL0ACVrfkAth5Drt6jdAvNlbnWgI7su O3TgOMIqVLWcWFSdDcKrzyOgz9Zam5DsfLHqmZh1 w4rvDUDaHMQbmDlfq8itZSH0GNEiV6V2mVGpj8xk UKahGODmsTB6azxlOKxkENQnlmJ0bpixIHsmEJZa jPZ6uegjWWscEQLyWaU1gptvEFaqMGUpPRD8IUev u815OCR2UAenTwxhHTyvNCIipqQdleTzyNkxKHVl OJYwHEdnFQCwRAoaMRMlYYBaXeBzjQuojJdgiH0k YcJeRdRpAPjoLT2sLQSeX5cbwUReAEEdDRQlF0gp LmYurN7lcVzcNNqndpYkCFBmavDekVToyk42DEjc YXJ9 GROSS DESCRIPTION (test code = 3366) q1nckTFxZPMbcJNgXvOoHQFwDSHjb6 lcZGVmbGFu [file] TX4efgAtaKEjsY== MICROSCOPIC DESCRIPTION (test code = d1tfsADwXFZrnSKeVaUwNRPcPKKel[address] [place] [address]) BiHsPpHbFgNgXvmmvOSpKNViTjPlo0yqd153dVVb x3qhOSVhTrI4yHCkIYPbyOBsC252PPHxAWosq0qj n0FwRKZqkSJki5E7FJIVsfetaBj0q3ylIaXtAh4a EBKcdzPvJiYiHNAoBSRvWDIdtDCqH080t2tfa7wc lkTkhCO5QDCpUHH7FCspryKmyyU0ZTvheQXrQnT6 ERfjssFtYSasqnBfwjVaGjd7CCKpT785NKW8sUek v7nmRCN6LFXrEWFyRgDrFj8nhXZnB861MSQlOKKF HQTlhPy3TMWflcBsnvNahLSKm530Z085o5atEMXq cjUajFgDjyqfc7kqE881XXYyoMWisyCmEjNyGZYo gIKwzEO7WSStCA2hivwlTkWzCY2zzbvbIjEjVL0o yhh2QwLgJR1aenwcRqKqVZifJRLqzvfaOVOll1Dp eeiaXP2sX3Ras3P3vJ9byVOdBMGdfCXyZtKhGYCj cv8zyQFlETldx5HaT05rhOK8DEwbt9toQO1pUoE7 xsDcGOfll3denW7iHuQ1MGyzCD4rNQ0nGWFjhJ3a ehpmKXAwAsArcddyKOMinLhuqzGlKy1ufDwnARP1 JRoxQ0qsdA7sApD6YVytO2qixS3cCZu5OCqvvAJ5 DLXmuE1iQY1lkiyeq4ikKhGhGL8eglsoz4mlRyFs OR4wlic4q4xkVkUlTW3fatsav4ahUbQaRHmgURHi piqoKLDyw0OjihciGWMma1YdO9HfkQodD23kjHvu V86qFANwrUgfzK7qvNzwoL6zQuAiWpAiSXgdpFig gFEoyubiSHzqrbBhJMxvyukxHCMqJDrxY6utLsKg UWDeeXnhSUbgl9AaUCVuCCQvZpAnCu4NSVQUZZLH E8vcGJHFFPIUERF6JRNucqBUBBYKHZHSEcwhZQCe GVOoaSSdhUBqBYMaGSS3XOKtEDGqvoIAx7OutPQz jUUzvT75ENBSPLPbaTN4USfhEABuuNVqOE0SIfBM VcORHJCVJUPITuVTULloB35LYtQ5UW20oKVlgsLo BqKyWDrjyeLfu6DaaGTzBaVoUBVfxUCeUHHyHEGd HHZ3nkVkuRLyGQZsPJQav641DMteY5p0VQHbYKOi kqIiWdWlXMmcgS9cqIQgua5MFDXxnNyfmL7ldNTu xoXkpPKrNWC2UKADRI6oli4PPZzbFK98WAYkK9Uq xlCkn5O2cOEyEKumKXBbScAxSN9mrK7gnCayvKWx FU1pWLPdTIN7crQlzwPgOWJqhfTwFPYHYKHvuVdh xGElHQ6qKUXsHTR9yiUsraAxSXEdtgEuKNZvFVS2 gUbih9yyCOVfDFO4xwXaemZvCONxhjB1HJKXmV5n yU0mpVUobpGtsDXnTKKiDZ3hja4vcCFfb0ohVJLz OxElKMfhf65rSADdgLxeXIFxonscYFTxILahyZ2l EEzpKGN5eBony3fgJWHbuCvvOpQgVhUppMBeBYSj poEhh9OsXOSlYYZ8PLkaKHtlkOQyOOZrpXkps2be J5WkjWFcXEMpRQheONWlKKBhXiAviLbcxH6yGfIn DqFlKbpeWG5mAJFvZ7zogCIiTBIbHQTpY5unJhBo jJ1liWveVhtjSiArXuOiOubylCFkpTQMdVCcpMB5 GTimuIGihifdFoghqtPyCYsinjlvEGTnKRmfZ3ag VvMpIDQbiZppRhmjv6YgRBXfAUEgElfymcXiDT4f gXKfofUqARThBOFntAttwP6mDgEdGoHrWurmSZ8k MIHuG0kwfKOmQFYmUXYvR5wiBqSvkR5yoVkcSiiz YhNbViTyHvkauFDujMkxGWWfPEX5qDlxs3OnxDUs oEV5PCxqxCMxachpMwskxiMmOSoehllkZZSwQTki Y9wiHxZiZDFjwXimSrpvs5GhXWBoQCKcPvotedYe RJ1ldHTqoJIrEWssIkxhs8NsiBNaZ0dozyhzyk5w hQbscV5mWmEdVdGyOubsSW8bKYLlR7ubpKYbTKTj FBNhK9lbZiDkkY7etEwxDvpdBsMbYmCzEsvegLKa nKjuJREcGMdmgX0lt5ery5qoMvLptEezyW6gWpLn GhYpDaqkFL4fUHLhX6uxaQVvQNBkIRQbS0tyYjFf mG7mhQamXvjuGvAqWnJiGaXXbSkpMFzeLrVkj5dj XbHylBcunV7pEuVgPaXmRnnnIV2sXYNpZ0kmiTGr QYLkVVUaN9muNwHbbR4jsVgqPtafTpTbAuWbYnsj cXLcuOulVQKgWAAeHPaqzlapI6j9GZO8ZRzakAAu eclnEynsboTxNUqhpfysSFMjRVwrO4mzKkFbTZPq tJcqDpdjf1NvTIGkWDSiHmucnbRlILziW6NrXLFk FCrdlOofu5ltMbO0XJPbTO2dJJ62xNMuayKxiKKx sNRaQIHufg0sOsyxhEKcppwzPfirynElPYuxqqct MUGhJTvbR1fuWvSzGSLlkRiyBtlzu7DeAPCtFHUl FzedlzNuMTb7pfYeLYIiegxkRKMvS7SfcU7nGuoj AAmsj18yzUAzBDCuFVssNSVkZEFeSnQacOYrSkMw MzXwsOjigHzeWdhyZcLuZZMyYCroU6prDzYeY4Pk DTOmOeQqQt4jXVhhoLMroHyzjU4mWsYxKzQjUbsu BK7lSGDbZ8kimJKzSALsSTPgD9doOvKwrI0caYmd MksbHqYoOaDlPwoxvUAhaJDiHLVkvVjukCYeIC4j SA9cdyThofHwQRL9yZVpCCYyyCFjq1ByzEBtbqC4 qNDlWTXfkRLndWKwf24tOAFiuRdyrK0pHbKkHiAj OjbjUP6aXBHyZ7fwhYJuOEZsTCZoS1mmUuNwkF0t dCkbQripYcHkRzTfBsAsRL9aREFygVOmdfFyvJ2b DeCkALAeezLfc1IvVBVmAEgdJFRiFSZbVoLhnOXc EhGrOqXfyRxlxIuxRchuRgHtEHTgCEnqB9rzEtSn I4QmWOMdNvCoiOMeL3peRrIRkK3dIGZpAAYbn3Ax ACP0xyOizeRraq14BKikDD53uMIrDYUwJVZjYGSx gtzwAIJeId3ZNZYMHGMVM0dxCbvYTTHCStBprWGy IJDnp5ZlhR9wOHDaUVvxXXDmMPLtZnXnbMNnUiPc PvRiiCpauGzbCmijHuIePTKpRLcjW8zuPuQfI0Wj JAWrKyBwVIHevEVbrCJxtTwbfQ3aQgVnSoVkArhm JM9pGDJqW9rbnPDpZEVsILJpP8nkRqGlzJ9xgMuq ErmiQmIeUvZoBbodnUShxSVtLOCataTLkC24PLup lLVqmucpSlbtilJxKFhphgleUNDvPVtgW7bhAjHn OVLanHuvGqqov5JgESGrWSTvCyguytXyULZTVGRf aYZ2ZRweQOTlsRDpXPZdRQCiGBQgr0ykJ89sMHKt RJ0nqfE5taL6TGDhMHGlCJfgtXtpzfl5cFSnWdOd uRQto3evmDZ8FRd5WGMdHW4gKPWhMVslluzxH4n2 IYIiSENcIPetJ5UwTZLiCBQmhpGqMUAqt93fbOOy gXPnVXThMAPui1HpnV8sf4ByE6i3z8RnsmfyPx2h PE7juU6yfIaeoA8wmXDdxXBbiHAgyWGmfTYpKEOr pqZrzt9uPIJkjmO7nYIbB94gMWXebA8go9ukDAJm j7IpNGEgWNEqAM7wphY2txY4ZQTaaUCgoPNxDYY3 iaWzF2OwTHSwu7XcpDf8JOBKCEIspTzpGSQdOOYM ZGAmrJ8cbBJasxKbQEUcZSbric6dZatep0PyWBNx RXWfs3OagG8fosKnz2QnOPC8IXVJYgYyZUFnPGRu VVHmOPrgymBkdqVixX5scTX0sRzgVBGihhVfDFAk EDRsowKbyIHkHjGmLLzpmMNhk8H6XAtnhe7eFOHz YWluXGYyXGZzMjJcbGFuZzEwMzNcaGljaFxmMlxk FfOwWBBbUFdyW7pqIwShN9JjMCRnJxJjuQViI9jo cGFyXHBhciBTdGFpbmFibGUgaXJvbiBpcyBccGxh wY5fQkCkDxYbPonvJG2iGESpV1uqpMOcLYWiFOEx R4mzDwAooT0tlNslWmheDwKrZrUwUoYsy4GgyDo2 XHBsYWluXGYyXGZzMjJcbGFuZzEwMzNcaGljaFxm QynnFgOaGAWcGQguF2giEiAvO8HnFXLdStGsoRCt Q0gjNUuaGN22uYRuBAAzw40vyPcjJRDer9Ugn3Ok hKvhhjNfiRD2wMKaPOLsgKVovHLpjyLdqYCffUOg WGH6YByaXjAtzEDlTMArhqTUKGTGGXuQXeUPPISO E91FZmfsAZTxOeXdPKFfyTzhTaYtjImpdP0rGeMb DcJyBkjsSR2hJQPwA3swhGWhGEKtTZTtT1nzJpIv nK3neOwgLkjzNdZnPoJpIfLXbPifDCApkQCeeS5l y8rhc3F0xU2phXCdq1s2ePAtd6w6P6odh53rf5vd XHBsYWluXGYyXGZzMjJcbGFuZzEwMzNcaGljaFxm CeulUvHnROXnMEmrD4nhDqHeS1BkNFWpQbTaxAOr U7egXYlpTBVmG3ivxCTeU1JqaVF6QDhdgIQmwhfc FiayczBzOLtsapkhGQPpBLjtQ2uqKyZjBVPnvWmq Dvqms5LkEITnBIJzPxwgmwNySQ0tdYEdfFNkfQHt uVeiaD3lZw0nT6esR6XgERKjtbbuTzuqq1SvVMYx YWluXGYyXGZzMjJcbGFuZzEwMzNcaGljaFxmMlxk VmGtMOLkYSjjB1ibNqQaU0QrHXTwOvPwuNXuL0am oQRkTRKsNDYafWP3gpevURIrASweRCQqXHMcNiIi fAOwVoCrSlVtwSxzxAbwMzisVeNiTMRuCFkoQ0if AnQhH8CiWIFpXqLlLD1sCU3vapisAmkjCDPfOOwt XGYxXGZzMjJcbGFuZzEwMzNcaGljaFxmMVxkYmNo KOYsJGlmL2mxFzBbVgAvLekcDNFeeECrTMfln0Mw cmFhdXgwXHMwXHFsXHBsYWluXGYwXGZzMjRccGxh uQ8dLrShLrSxFvvkYT2yRGMuQ5wvpZMtNQNeTHVu V7pcTzNcoE0huDzlENvmcvDnYVLabcipFDYmQCEa IDtnTUJhKUMlCiTvnBescE5tPuWoTuIcKIykIPW5 SPECIAL STUDIES (test code = 3376) u1kueVPkQBWcmUFvEtMrMBDgMLQit4nf ZGVmbGFu ZqAqOnUnLwVhUyciuWBdOHTkPwYmb5cls104pCOq m7zsWOCfLjR6zORnEMSdjFYgT885GLIkTInbv8ps b1RvYUYryPHda1S3YJUNVKgaKyTeE425BCYjKOui n3zxw6GsIUIxwCTco1Z0IWWPjmixeFm3zSbuG16d h0G5PfpeR3egUQMiMLBbN3SnFU0uVKLuRms3KWR6 EAI3KXTwMVLrR1WaOF0qCYRfeXTiWIl5k3picTjc OOLhXKL7o5yhLQhoulW1RN1krw7yoBm3w4mdqeMc FVErUUIjvGAUWAEoY0SkoZbqDd3wuIo4n9nkTddn hzQ2vUBqVvArJrBtQVnwzYKnpyskVRYwRWB4cOWY YNg6M871t0ijIRChhjHdmBnJqzgfv0thK135KMCq vQVgprKvFqVkDFPppAEauSA4UFGpQC0mhwyaEqZg MV3mchlfKpJcTD0mzdc3XbZiMI3fcljcVbFaVNnu EHBtwxswVTNrt9LrmmxoOB9lW6Vzm6W9tP1xaJXy QNMeoKRoTmGlWAWqek3npGCtTUwoZYL7YAFpdgNk t8Ofh1fiZgTbepIwO5wcQ4NrUTQySOHvKKCpPmAt trRoj8Xub3AqoSGdkAy8z4ocHRBxYSEkfTqvs0tl YGU6ZUAsD3C5bFVwk3hkSHewCGBmvCH7xxasXUuc CZBupgX3ehhvQUqqYTYpmEQ4ydekPFrsMDPoGcY8 smbpUGibGSFpCDD4YPpzy231LJR5XLcbRxkuAQrd XHBnbmNvbnRccGduZGVjXHBsYWluXHBsYWluXGYw WHWfTwUzoGhowWvyuC4gJdJvVyLuYlprVF4yFQYf Q0uwqGGnMHVgEJQiS0clRyLkvY3ggHapZDqoZmJz HuHiSsISmKKdkN64OAGdpbA6XLVng21wp0OptQtq wcHmXKZwZKpaX4m0YPVxZREzDTB3m4Vwp4NflK8t fD7diCkmxF0ykYSvxBT3xzabe8Etu4MlW6pbfABb dGFpbnMuXHBsYWluXGYxXGZzMjJcbGFuZzEwMzNc lLcdxPliPOfaMlYwAMYjJFdfI5rcWgTfB8RgWKZg FhFnoGPoQ5wsbYDzDNHlYJbwFTArOZHpNaWitQCu NpSuQwTgaHwvjIvoVMauOwZkCALmWWamR2jmWtZb L7SqOFImIsZuQnkVF4esCsDiHXLOLmrRDMsND04y aSBhPJICP5ZZTIHyBUPIRJCjZEVUOHLwNRKXEcOd SRlGQGMLZSOUFK3TWIMvuKrrwF5vAlGzZmZrHnky FW5aOWIxB4hlvGBkCUJiSLIvL3gbEtDrqH1rbDny IJpqFaHqHjQuTlkcoCXzuRygYCButXmchC3yYvTv GlTlYjwwUN1dMNNoS4fdbCFlGPPxBCBiP2uvYyId wQ7brDtpLEuyVqFuCyLnLyZRu036sm5mRKMvaZKk bvDCuMMqtT3mPNfeNRdoXVjpaJJoUBejr6qsUXFw q8o7hVHqEWPszvWvc2qqXBygikMnXPJsuXNqeBDs MNPmw94qHXkbfQjqpCvtCYWgo6FzeOoif6UaWxEf JWtcv3AnM55rjJIjiAGqgMifVPNylsKvOYEgb13y e5vtJNKlErX5rXCuyBD9iQUcdJMio2FfoPgbBZDi o5xfBYMkft3jenjmyNLwy2YbbP6itjziSRbliAPi xrSzETDfk4q0rDDrLEPgMBYxMPnauBc1PPBca323 pa1jcpQ6nQXxPDI6XMscQKPwASMwflEyIYGgmJQu dGVkXHBsYWluXGYxXGZzMjJcbGFuZzEwMzNcaGlj vNutMFgmVjPlLGHeNBdlW0ydNzOpI7TrBCZrTiHz jBMrX2lpjEFzMDVnDOaqTSLuTNXzLvCslMNtEzXq XhMxkGrofUnsEOgiVnPeEOFfEDhdH6slTbJdC9Rb XGZzMjIgIFxwbGFpblxmMVxmczIyXGxhbmcxMDMz LJgvK9clKjRuGJEsqSwpTSrxt5NfQSIrRFUbXgpm kvQeCFx4waAjAPFavzxwrVJwfstbXGdlznGkKSqy iilvYSNhQXafX6bvOnGcEBHujEjxGVmrd4XrFFDv ONCdDrktjkBvJVakhYRkc3ijy3MlW4nutOsbnCH8 OTHqU3vzfYIfpHC7SHG5eM5yEDgyheVwAZRel9Wm FNRmXIVzWbT6iW5oBRU8TcRNgGzrEIYsYYfhROUv XGZzMjJcbGFuZzEwMzNcaGljaFxmMVxkYmNoXGYx RTwmC8vfGeVuS0PrZZWzFhVliMpeJUdgHBd8Kebt qRTmnmxxFSssehRgJIbodheaJCUdPFdkW5rnVzHt XQKwaVdbFDftu6SfVFBsDKLlDaobvrFwPJCcTHDh xTQliUQCBV71NXUhLDZfqQubsE6obXGCZPEkxnP7 d0L2RZgzAQHkNKm6EJwlbsEuZWCbwX5eUOKyDL9j UJi1xpXvUFPcy5ScEY5kDHNcqUWxUCJ3OXZhe6Qx F6Rew1LdWGVrDNRcgh6aoeKkHkSQvEXgPZRnph05 FBOpHF0qE5nmKILyJXCvhtKplUTjm0JbWLUrlGG1 kFGjBV2AGzSAp74jPKScRZEOfiDtCGKtcQdeqMT7 akZ0zG3qFfFKoBPmFiTSGXgocdKrHNKvww9dviVy PFPaRAOfd2NuqATsxQGuxxXvS8Dyu5QoDNSokt79 IPcubQFmff28LW5jY5Sib4RltQ1oESokJSPel2Ta fCPpxFZrBKWvi1QgS1pihmsiDMpkaPDudR7yDKZm EQi6UZMpi7RtKZEzu5OiShXqbzZtPAFoMGSvJQFv hJ20MSU9yCbriSzjbrVhFM8qZCPinkEfRTTdNAMv dS6zZFacjsFfYJZaojP6i0X2TBsnTOSvabTeCvjd VAF1sxVkcuE6eAFtS1vbzahuJMbcSYKht8KasV9v rMIXjOLyr3IuaLDqvBAKzFAzAG5ifnWxUH5lKPU5 JUrrNWKEGTEkPNbhTHYpWTO9DFxyBkjxFUD1bnMn EBCps9OfZDrhE6swE53uuSvltPl4xRYuxRkipBPy cXSfAICqgdZ3r3W5OMJxk6WkcqolWQWrACmfPNNj XGZzMjJcbGFuZzEwMzNcaGljaFxmMlxkYmNoXGYy PEtzX1znZpRbIsBvFcvkZCQasOAhFYmjwHLeglad MXnrksQ2DQOdQKijLVMbQWKsLmWjkYGffQ== [id number] 14:30:00Bone Marrow Pathology Report Case: [id number] Authorizing Provider: Tiff Colmenares MD Collected: 10/20/2018 1030 Ordering Location: [address] Received: 10/20/2018 1151 Service Pathologist: Damián Mckeon MD Specimens: A) - Iliac Crest, Left B) - C) - Karyotype is reported to be 46,XX[20].Mutational studies for calreticulin, JAK2, and MPL are reported to be NEGATIVE.See attached scanned report for further additional details. Addendum electronically signed by Damián Mckeon MD on 11/14/2018 at 2:30 PMBONE MARROW ASPIRATE, CLOT, AND DECALCIFIED BIOPSY:NORMOCELLULAR(60%) MARROW WITH TRILINEAGE HEMATOPOIESIS AND MILD ATYPICAL MEGAKARYOCYTIC HYPERPLASIA.NO MORPHOLOGIC OR IMMUNOPHENOTYPIC EVIDENCE OF LYMPHOMA OR ACUTE LEUKEMIA.BLASTS ARE NOT INCREASED.STORAGE IRON IS DECREASED.SEE DIAGNOSTIC COMMENT. PERIPHERAL BLOOD:NORMOCYTIC ANEMIA.NO CIRCULATING BLASTS. Signing Pathologist Direct Phone Line: [phone] signed by Damián Mckeon MDon 10/24/2018 at 4:50 PMThere is no morphologic or immunophenotypic evidence of lymphoma or acute leukemia. This patient has a reported clinical history of anemia and hepatosplenomegaly as per the electronic medical records in [facility]. The morphologic finding of the megakaryocytes is nonspecific and couldbe reactive however they raise concern for the presence of an evolving myeloid neoplasm. Molecular and cytogenetic studies are currently pending, with results to be issued in an addendum report. 32179;64696; 29800 x 2; 30305; 69765, 48868, [id number] Bone marrow The case is received in three partsall labeled with the patient's name, Emily Barbour, date of 1970, and accession number, [id number], which corresponds to the accompanying requisition page [...] 2.1 cm long x 0.2 cm in diameterred-brown cylindrical portion of bone. The specimen is [...] on the clot section by the Perls ironspecial stain. PERIPHERAL BLOOD:Red cells: Mild anisopoikilocytosis with polychromasia White cells: Mild left shift. No circulating blastsPlatelets: UnremarkableThe interpretation of this case includedthe use of immunohistochemistry or special stains.BLOCK B1- PERLS IRONBLOCK C1- CD20, CD3, CD34, KAPPA, LAMBDAControl Slides Examined: In- house known positive controls were evaluated along with the test tissue. These control slides run alongside of the patients sample show appropriate staining. Internal positive and negative controls when available are evaluated Immunohistochemistry technical testing was performed at [facility], Pathology Laboratory where it was developed andits performance characteristics were determined. It has not [...] qualified to perform high complexity clinical laboratory testing.Chromosomes Cancer [id number] 15:50:00Scan ResultCENTER FOR MEDICAL GENETICSSil[facility] CampusALPHA-1-ANTITRYPSIN [id number] 12:46:00 Test Item Value Reference Range Interpretation Comments Lab Interpretation (test code = Normal 35570-5) [facility] CampusFlow Cytometry [id number] 14:30:00 Test Item Value Reference Range Interpretation Comments Flow Cytometry (test code See Separate Report = 2758) Case # (test code = 2759) [id number] [facility] CampusFLOW CYTOMETRY [id number] 14:30:00 Test Item Value Reference Range Interpretation Comments FLOW CYTOMETRY RESULT See Separate Report POINTER (BEAKER) (test code = 2758) FLOW CYTOMETRY AP CASE # [id number] (BEAKER) (test code = 2759) Flow [id number] 09:46:00 Test Item Value Reference Range Interpretation Comments Case Report (test code = Flow Cytometry 104) Report Case: [id number] Authorizing Provider: Tiff Colmenares MD Collected: 10/20/2018 1151 Ordering Location: [address] Received: 10/20/2018 1336 Service Pathologist: Damián Mckeon MD Specimen: Other Flow Interpretation (test l9gbxUKdRBRlwXWhWzLn code = 3364) LXFtXDEio1ldQCMecASe ZzEwMzNcZnRuYmpcdWMx ZZJzOkNdj8urx361oHWl b5hnWUFsFkM2vOMmVHYz kEAhH607n1ywj1gocxAp kYK5JDMsBMA4DOwzobNp ubK7SLsknNSdGpE6UFsl cmVkMFxncmVlbjBcYmx1 BOUvP898LOZ7rKevf1cj SAQ5KSEzPWIdRlKcDe1n dRAqR674LDQtNCRSNUIe uJo5LUWcsmFqiaDmlEEB p316Z979y5wqOPRutmSi lIpNoipyu1wsC174VYNs cGVydzEyMjQwXHBhcGVy gMI8NGYdUC3skfkuNaYy CL9iadqjWuNjPP2kulu9 MpDaFM1ibbkuVfEaPRnm QKHavmtvAAHli6Spnnfb SP6jH1Ahr7G4wR6gsOSv NHWmiCEuIoVgNRXasp3b gMEdMLqbz6FbFYJ4ulT6 mCSfsNClPAZgUX94Msyf h1QlCrbcVNH0EVAtykIa h7Ymx9ybQjRznvVdO7xd C5VnRQGrKUYfPMKcMsIp fkKmv6Ytu3RriPZaaSe0 j8ryCRCdVWJboXvas9pi ZIQ2UZNzZ5T3xVXsh8yb NNygZTCbdUY4prjaHBus OOCtpnT7hmccPKpdDJRq iXF9ojacCJfdLXKoZuA3 zfebUMdzYNEtMDL7NHuk x261GFW8MIkpFznsMEfo XHBnbmNvbnRccGduZGVj XHBsYWluXHBsYWluXGYw LNUaQmTbrGokhDdwiF1g MqHfUjLfQUisMY2gSMZn O7fozVLvAFBzMRWyP8hb XaDeoU6kzFpfCPvczgRt AYAMVrCdSYFZXp8ZFXOU LY1JHFDYAX1TRLJHNMem xJElBO8CAF5WPs5JPM5O QUwgQiBDRUxMIFBPUFVM GISFT90sQWUhxmFDWhTM Vt3OPm8URHAHJZMBEXcq VU2DIPeQUUlLEo5toZNk EX9XJEeUA8LSDGFLHCQD UUHDNKMIR2JTWMSOZK4U DclpLDSzO87MDxORVIFY N87sA7zXYGLUM6HOCO3R A5nJQkWUFO7SXC7LOsJG SHTFAWGZKL5gpUWsxI== CPT Code(s) (test code = g0omaTFsFHYvkYEiJnPo 3357) GUOwVUDzw5xpZUTowSJk ZzEwMzNcZnRuYmpcdWMx JAJuAqQon4asd845sGTh x6paTKElNpZ0uUHvZEZv wDKsB048OKPbTKdvk3lj g1SyCYHrzEPwo0L1DODT ayqaxQl2yHkiC41na2D1 KzniR3kzDSVcDGDpW6Iw FU8xMBHzUbn0GTI3WKL3 UWMpVSEaW9BqER0gEBPa aDSaOQd8j0fdbHbfGBRc ULF4h8tmMYmzezIoBX2k bu6stGs6q1pilvTsNYWv RXAflQAUVOXiG8AsdQah Hr5iySr2jAzsTdkjEOS2 Pqc0KA6kof19yoa6bUju VCNhookmBeF1XJeqEJQy gfxjXYx4RXkkJGOijGyh MFxtYXJncjcyMFxtYXJn dDcyMFxtYXJnYjcyMFxo VUGbKZG6FKaiy141RKW1 QJlib3xuv4apcTKoEfh2 GMTsLwGcOfkkAEusy8Mr v3gdFDDhei3qXMH7tLVa lMnuw6A2kVFeIEAybNCk szDbOIJwBgV2MUsyGU9d du67ZTZeQMH4vz5yoSUe rOnjwuBpuTTzQOteZ5Yv JNDhf363LQNjS0NpLXIa k2T3icHiZdDwSSXriGF1 yeN7QLZbEYj7zWFpxiC8 owFapTKdP9tcyX42ZjTg jBWfJ4CrtE00PvUfwTQb O4NlmN84XyIfpRHtS1Ep cD96RwLekDNePRMqjCBn Oz5unTDlfHXaq3HaeYMy OJtiE18ln635ARVlsjIl K5hprDBvksasqPBruysk PHwzwnX3KFVaWQChPUoi XGYxXGZzMjJcbGFuZzEw MzNcaGljaFxmMVxkYmNo HRIgDXndN4tuJiWiCtJv McP0HFT8WLvcdJEtinyn MFxmczIwXGxhbmcxMDMz ULkjN5lcEjWiGHRfaQjl MPkfq5KbHQHyZPWwRnWs cGFyfQ== CLINICAL HISTORY (test e9otiTDdXLVarLVbWjCc code = 5732) NLFuASFqh8kbCOXveGUp ZzEwMzNcZnRuYmpcdWMx KAQsNuFbo2vyk772nMGn r6xyRBEmGhM1hGEeYUUx zZZfU247z1xcs1kkmaIk oAM4QOPeEUX8YGlixyOn jhQ3CZgocSDyUyM4XAwg cmVkMFxncmVlbjBcYmx1 IOJzD967FEK1sFozs3zf THR3TNZaBBQaHuGaFq5r eQSsZ421WZFwSXWORTIn gAg2WSSkfsCljlAfoNMA v271E182l3bjWBNyogDg dVoCxuxxf8ruZ534KAWl cGVydzEyMjQwXHBhcGVy uTB9JJReOQ8efknbPzPd KW7glxviIgTiPS8voqb4 QwViAW8mixnyDrBcTKjf WDRmbbraQTVwk8Xmigfy BK1xF7Tfc7D5eO1wgYMn ZTCoyVNcPpQsCHRarx6t xDQpLTqtb8EuGAB7wxL2 yCKbiQSiRUXoAR20Vekj u0NdWfeiADQ8EGYiykJq x2Odx7xjEeRuiqDlO4an X5MwWPFmUAMaBOTvDoKq tjLbo6Dtb3QgpWLcsCa8 f9jkRBVlQYNlcZyev3sm TND9ZKTmM1J2pQFcf5uh BLfhXXQygGW0fuztFXpf SFLbwkM8bujmACkrQUIb tLX7orsmNUbwDLDnZoR4 nbmpWYbpUXFbKRN6BXal c482FDG0YBfkGxuvHKdr XHBnbmNvbnRccGduZGVj XHBsYWluXHBsYWluXGYw FJEpWyPpvVbcfNbqeC7l KmQxCzOoBBfrZD3qYULb D8fwrLApTOFgOFNyC3dc WiDeyG8fxCrqUDjscbEk UGOqRI7uPYooRIU7 SPECIMEN SOURCE (test z8qxkVGrZSXywYYoUnRi code = 3377) ZRMqECVyc9fyVWErgHOb ZzEwMzNcZnRuYmpcdWMx PWOmFvHrf8wuo904jAHt j4oeRDBnQuC2uMObKYNq cPErJ114r7wno9xcvcFm hXX7IPYmIKP3MFknbyIn tqG5ZUlxdUOnDhV8MGge cmVkMFxncmVlbjBcYmx1 EKZtW007IRT5bBbkk5tj SVO5TIBzCWNnWfIcPm1q dWTvO495AYXvIFPGJZZp rBx0TBElqfHrjhNmwOAU a824Z755e5jfJQPrfvNw gNdCasbkb7vkL321ZQWi cGVydzEyMjQwXHBhcGVy zPU8CASjFG7xbmocUySv MN4powebRuPmAY2nihr3 RaReUI8vesfzAqTvCZan EOWyxtmoLJYde9Onysku KY6vY8Uch4W9vE2feKKu PMCgdFMwTeCwQAErun1q qDBjQSomu7OsMBO3cjR7 cLZgqAWeLWEmWF25Emjn c3BqAffwGJE4HZHlkcVy d4Hnb1hwGoYrnyBgI2qc E7TyTHOiVWVeJJClJrIx ktMoi9Tls4HcpUQbdRr5 j5hiJUNiBPXjpYqnn6tg MFG3OEZaH3U0qAOio0ls YLvyWIVcpOS3jetmBFdb RXMqypU7zzqhEUebPPEn lNV8urimQCflFCImEvL0 ztyrLZzaFAPfLGB7BAor c675QCM0FZfgOunvBYgh XHBnbmNvbnRccGduZGVj XHBsYWluXHBsYWluXGYw FOHjRmNdsRuhoSihvM5e SbZqWbTqHPesLQ0hXUMs E5lzdNFjJZJlQGHkV1rj XnCmmL5fzQhiHFrqwtUb SHTrsyPvuBTlcv68PVEx cn0= CELLULAR BIOMARKER h4igaVIdDDKvpGDxByMp ANALYSIS (test code = GJTuVYCvc9btYWDhqSOg 3380) ZzEwMzNcZnRuYmpcdWMx QFJaKsXfi3coa410zFXr y6cxUAKdPuL6iEGmURMi nNZjJ571VVWzEXnfs6pj r6DuAGZjwYJye9E8FWTH eoyzyYs6cGioX14fh5O7 VeigY7lnNXHuGKIyN1Rk IY9iQYNqLdt8CVY3TIA1 TSWrHGOaS8AgCK0nYWXd tPTtIBi8g5gsjBtuBTVz XDF7t0vqZGxlsbJiEX0b io4hvFk0c3iirvQjWNVk ZQXgzXLHAOLaK1XrsKyn Np6ufYj0pSgtDmmmPCQ7 Ufy4RI1lqv75aix7yMmy YSMnvagaSwQ2IVbiMZRb uxnfXJw8SLomFWFkjDbe MFxtYXJncjcyMFxtYXJn dDcyMFxtYXJnYjcyMFxo AYUdERP9BVsef317LAZ0 ODajy1gob9xbbJAcWic9 VQQqUcUhGjnjNYqcr4Ly z0lbDEYtbs4dZVT0xOSy fLqvr5U4zBUxZIVzqQOn kgEhFDXeGrR9LWsxRT8o zc19QQFyGZJ7xi5blJWk nNqoppXsiPLoPZwyH3Ks YGIqm512XPOlQ7BqIWQr p5K3mbDlXaBjRFQslNC7 jkI0WXWeZTj1uNIpnpW3 haSarEQrW0hedI25JmOr aDPxV2LcdU80NmZwlDFr P4UbkS05SbUukQPpZ6Rd kT33HdWitNTgZYCofFHm Xd3ymBVchZDus3CleEKz WXqnD06nd147UASdtdOh B0obaTJttjubkIEjvkpb HDpzdcJ4JALzlzDwuIqx mW6lYoMqMgWwDWpkCO4u HEOtQ1gwsGHiWXAnNYKn U2pvSzIhsF7tyFqkHCjk oyTwXXKNNUkzMCQ2cvCk M7IkF3LewYSlDRHTAUXy ICD2wgZwE9RzGWPdOuZd LCBDRDUsIENEMTksIENE KPSxDQYLUqxtC6JiAIji T8P1LSFZYCX0WTHKBPC5 LCBDRDEzLCBDRDMzLCBD QNUbFtxdC5WzAOwiO5dh cHBhLCBjTGFtYmRhLCBD JRK6XRXCWFTqKXjgPPGb wSptnPylcW0qGnFcOfGk NFxwbGFpblxmMVxmczIw UQsrhmthFGUeGCidL2cw LzIwABFcnPobLTubb1Ek XGYxXGZzMjBccGFyfQ== IMMUNOPHENOTYPIC FINDINGS p9wdhKLcAYPruWLoDrBr (test code = 3379) AMTvHGQzf9qbNGJzpDDw ZzEwMzNcZnRuYmpcdWMx GKFvMiHzo4tsk557oBVy b1wgQKBaNrS7nKOyPMVa yLEsP839ORBfHLanhecp MHZmuWUmWD2eaaWSv07t dpq0h5vsKqQuQr1jwMCA IMwtEPWOBHe6aLmeE54s m8E8KhnkP2coFVPkIMhg JOOsUIydhGYfXUX4QIUi DEJ0ZZhqqnWbgxQ7WCqr pIFtEyR4OTk8z1fcgOig XPMoWDX3i3siYInvxuUw XC3aew8gxQl3o0nperVf KEUoRKBdpXOTKQUwK9Iw xWotTt5khOk3o8xqIzuo ghM5sXDcPdWtSaMsHHfg aTBcbGkwXHJpMCBjczI2 VXDhQOQiB362SVCeXRRk NMl7O7bqAEalqwW9PQJj MFxsaTBccmkwXHNiMjQw ICQtSsHmBGVbHBDyp7If U1ZuHEb3F067ZHL2WJVa NOx4BGkjHOcejsN8GABc BJqjxTujYMecqEIix8Fu XBTus5UpYBUud2opWOVu HUo8VZI0OQU6lOgcB8Q9 XGYyXGZzMjBcYjBcaTBc R9TmZJLqZHCbRTMfXbUc P152x8ikCMIlgvBtzSjS mzeit9kqU723QOGmvYHj dzEyMjQwXHBhcGVyaDE1 YSKpAU9xrsxySmLmNJ6q cjipMiMpTK4iolw1RqQm HF2cjopnFlPlNAomMYVo zttrWTKtu0SpbgnbDX5a V9Oeo6Q8lC3nnCGeWHYm gNZjDoCpZGAvfl1wpMWg GOlqz9QcEQV7icA3cEGg gDYlKGMgAB84Amxlp9In CqbdLGZ8ZWXnjjCky9Wh QKU4ny0tfQDuiSlzkpEb jHYzCHgtS3EgEXHud138 AQKoG7RnYBDph7V9dwDg HdGrUUVztWO2rfE1QQWx UIp5lTUxgkL5bpSplKZg R0ktyI96ZjBsnAZtU1Np wK97AxXttVOnN5AdqT83 RnYhpUYqR1QbsD45EvTi wNOtICDvyENcEb5izGLp sYWcz6HzkPLoTKxzD02l d602FGScoiCiH7qupWQv blxwbGFpblxmMFxmczIw XHFsXHBsYWluXGYwXGZz UyRtpPnoaN7iVtHoXqLu TIXMrKSjnD9sadUPjGUr fQnpiJl3HPz8XlUwUUcf UYWijFOlAYYkUTT3juix UMzdDEPeyJGWAAM1FeGL GJA9HtVteXJcyGEvW95s fFBal1UhDL64XLRaAtK3 w0GizZVqKDczxs6fPWQk OUDxWAmxrpm3rZEyFnF6 aGVzZSBjZWxscyBleHBy HVUtXNKUQXRhMT6kDVQZ VfNgUY31FMyuFskuf4Rq PH2nJESxlQAsQZLrirNX aE9nxX0nvYFcugxiRxUa K0m9ZPXNDTDxKTc5wVZr i0U9zFMgFBOzfBEvnLSc HLIlGGBgp0RmhM29CPjl T1LppWCkTUOFDEItvQoy ZUXmr2wuVMQLVMX1M8E6 VNEbdUoqZA4aVKHkQn0n IiGaGIiyflFssrVfeW3o xDT2nZauWJzpoHsaMMWr FFYdTTztYO9rMWHfjxR0 tD9jn0QqSB95RuXmGFPq ihbpFECeAQvnsQ9gSZ3n h11cC5o5wBNecI3zhBxb tQcechX0POYEfvWwNNCr tPxqyJQrJNJ7GOOAZWVc JM6vTEreF1n7QUEsZLF4 QCDsM3uvoyKbcTAomUN9 vPTiAYTtlwFrhZkzH5b4 BGBsD57tuNLrj6QnvAqc PL4yje1icFI4QY6eXBVe hQcpBHQuKWr6clNcKMWj ubZpcD4nc3Y6cPIjQKDg aLIfbLKlSSBjMSZde1Fk sK37PAntN2PwgECfZEPf cGFyXHBhciBQbGFzbWEg Y7JevWS4DETWNKWvNDNs HC7nLCUpY0TmKeclyQ6y eLLxwyPbySzrc23lMJSj jXrwMPClHQYoa7LeIPN3 rWTfCNCttMb0rRUhNgLf cTVntXupq55dTjKdoQwk dCBjaGFpbiBleHByZXNz lA8jXcqwZSRjrTAfTZJw TLAhZT1pvB7kmwboFOSp stMfGREtNVb3aqNnODAv lKIxu6ZmqEEcj737hQEo qXOfD9QldZKwLV7rex6p KS4vdY8syN8daA6iEILg QRvdajodQV4xH82jHZNy NsArth9fARXxmcpyJNH9 DISCLAIMER (test code = a6zcoSVrJEBzcHSnLlNq 3363) ATSvIBBgs8pbDIDnbSTy ZzEwMzNcZnRuYmpcdWMx YEUxLxUyf3czz302fXIz a3rpVDNnZlE6gJXqYERe mHPfK135THScVUram3po o3HvCKIfcTJsr4A7DILA fiatkEx0mUugR36tx4E6 IbutK7wxPHGjLIXwD7Gh DY7pJFIzCiv8RCI8YGI4 YNIkPBMxZ2DaGR6oKZZt eYKjTMk4o8ncrWucJBFd CAL4w2udQCzwenJ7BO4b pw3ptGp6n9aglqKsMHHu UEHayEKREDOkD9ZlzIfq Lh1ifSz7sIasKfgmGHV1 Buh8VB9owg22tyi7hZqa QGZbampiUnM9NIysWEPa jfggSVw6LPcqWCGqePal MFxtYXJncjcyMFxtYXJn dDcyMFxtYXJnYjcyMFxo WRReKWC0KTdmy658AXG1 XTvps3juj2fftMYyFss9 YEVxZdDfHhasDUjda9Xg g9efCIXlVmP7XAhjKN2j xs89QZDhVHN6vz1roXHa pLgpsrOjiSGfRBbsA7Jg EAOze306MQCgM1YtHKZv f5C4goPwPmAnKSOqwJB4 ksB7IHJnGWb4vLWqkoD2 wsMvgCXqS7dsdH29CqXz xKSwF6QzdZ25QqQwsUAa A3FgqW37DgKjzJVhP6Po eY85QqOqfSZxHRMtdRVe Cz0syHIupRNra8PwyKUu FNfgT81go969JOCullNq H8omgKAmjzrwqFCkmjwv RMrchdO5JSHxAPVpTCna XGYxXGZzMjJcbGFuZzEw MzNcaGljaFxmMVxkYmNo RKXzVTscB2nmDaMzCdHh OzOJbYVzLXU8MBG9fyI5 MELiIBCdtpSqa6EaNFTn vnTxaUzasNWsaPPtYo5d oAVfX7OhA3xqznLgyMMm pQK8tEYsQVKnjZYfqTrf FQRgIaisFaS5wA3wSLJ4 ADk4x4YiJzMDbFQ4PAjd gtQmzj53ZFTyVU6eS5ds BXUsMQBriwXhwAWfk5In TVXisDV0xVYxUN2RQeTM z41sJMVkVCLEwwDzVLMh nPlmdNE7vpR9vC2zAaCE aGUgRkRBIGhhcyBkZXRl jk8mkqIsTOBvDGDzm8Rh aBRjtCWjkkOdZ2Omq1Yj KYFcji89HIdqmXFhib30 PW3nU9Guv1FhnZ4wMCXv k7xwzNyjGH0idSOyCPIy ZWdhcmRlZCBhcyBpbnZl s3DeM3V6zH2gUUcew4Os Pc8aVQQlu7YiydPeYbTR zVtsXGyiPr9iGKNwwkgq kGJwP5AqpAtzyPKnHBFg ZGVyIHRoZSBDbGluaWNh fFQXBVJyllQ5e9O4XAhq lVBaqkSrYE73FTSgJN0q uTHifLTdv3TxFNr2DLTr IkNMSUEiKSBhcyBxdWFs bCCuSLNznF0uyAWoDf8w bSBoaWdoLWNvbXBsZXhp iEqkA5bmrbhrBJohjUJq sJwwBh4xcNLmWVCquxRj eQcpwG8pWuLvFiNnSBou pSLzqziaOCviitT5MQUd cn0= [facility]FL[facility] [id number] 09:46:00Flow Cytometry Report Case: [id number] Authorizing Provider: Tiff Colmenares MD Collected: 10/20/2018 1151 Ordering Location: [address] Received: 10/20/2018 1336 Service Pathologist: Damián Mckeon MD Specimen: Other BONE MARROW, FLOWCYTOMETRY:NO MONOCLONAL B CELL POPULATION.NO ABNORMAL T CELL POPULATION.NO INCREASED BLAST POPULATION.CORRELATION WITH MORPHOLOGIC FINDINGS REQUIRED. 31453RgfytjRnrr marrow CD8, surface-Kipp, CD56, surface- Lambda, CD5, CD19, CD10, CD3, CD20, CD4, CD45, CD14, CD13, CD33, CD117, CD34, cKappa, cLambda, CD38, VR458Tajjijxf Viability: 97.2% Blasts: The dim CD45+ CD34+ [...] ("CLIA") as qualified to perform high-complexity clinical testing.Anti-Mitochondrial Ab, reflex to [id number] 07:57:00 Test Item Value Reference Interpretation Comments Range Anti-Mitochond Abs NEGATIVE NEGATIVE This tanisha t was (test code = developed and i ts 4586727) analytical perf ormance characteristics havebeen determ ined by [employer] [facility] .It has not been cleare d or approved by FDA . This assay has been validatedpursua nt to the CLIA regula tions and is used for clinical purpos es. Mitochondrial Ab TNP <1:20 Test Not Pe rformed. Titer (test code = Screening test 20191007) Negative or Not Detected. Titer notperformed. RAFAEL (test code = Performing Lab RAFAEL) [facility] [address] [place] [address] Mauro Prater MD, PhD, NICOLE [facility] CampusHereditary Hemochromatosis [id number] 11:41:00 Test Item Value Reference Interpretation Comments Range DNA Mutation see note DNA MUTATION AN ALYSIS Analysis (test RESULT: NEGAT GOKUL code = INTERPRETATION: DNA 9042310) testing indicat es that thisindividual is negative for the C282Y a nd H63D mutationsin the HFE gene. This negative r esult significantlyre duces the likelihood of h ereditary hemochromatosis (HH) in this individual . However, it does not rul e outthe presence of oth er mutations withi n the HFE gene ora diagno sis of HH. The risk of thi s individualcarry ing a HFE mutation other than those tested in thisa ssay depends greatly on family and clinical hi story aswell as ethni city. This assay does not test for otherprimary or secondary iron overload d isorders. Lydia marx, Ph.D., FACMGDir mirian, Molecular [employer] Hereditary hemo chromatosis (HH) is an autosomalrecess gokul disorder of iro n metabolism that results iniron overload and potential organ failure. It is oneof the most common genetic disorders in individuals of[facility], with an estimated chino erfrequency of 10%. HH is caused by mutations in th e HFEgene. Most individual s with HH (60-90%) are ho mozygousfor the C282Y mutat ion. A smaller percent age ofaffected emili viduals are either compound heterozygousfor the C282Y and H63D mutati ons (3%-8%), or elida ozygousfor the H63D mutati on (approximately 1%). This assay detects t he two mutations in th e HFE gene,C282Y (NM_ 643844.2: c.845G>A) and H 63D (NM_000410.2: c .187C>G), that are common ly associated with HH. Themutations ar e detected by multiplex-po lymerase chainreaction ( PCR) amplification, followed by digestion ofthe amplification p roducts with the restri ction enzymesRsal and NlaIII, for the detecti on of the C282Y nzsH97Q m utations respectively. Fluorescent-lab eledrestric tion fragments are detected by capillaryelectr ophoresis. This assay does not detect other mutations in the HFEgene that ca n cause HH. Since genetic variation andother factor s can affect the accu racy of directmutation testing, these results s hould be interpretedin l ight of clinical and fa milial data. For andra tance with interpretation of these results,please contact your local [employer] t Consultant [employer] geneticcounselo r or call [phone] ([phone]). This test was developed and its analyticalperfo rmance characteristics have been determinedby [facility], [place], [place].It has not b een cleared or approved by the FDA. Thisassay has b een validated pursu ant to the CLIAregulations and is used for clinic al purposes. For more information on this test, go tohttp://educat ion.[employer]/f aq/douglasboyvenkat aparicio RAFAEL (test code Performing Lab = RAFAEL) [address] [facility], [address] [place] [address] Hien John MD, PhD [facility] CampusActin (Smooth Muscle) Antibody, [id number] 22:35:00 Test Item Value Reference Range Interpretation Comments Anti-Smooth <20 See Note: U Reference Range :<20 Muscle Ab NEGATIVE> O R = 20 (test code = POSITIVE Antibo dies ) recognizing act in are the main compon entof smooth muscle antibodies asso ciated withautoimmune liver disease. Actin antibodies aref ound in approximatel y 75% of patients withautoimmune hepatitis (AIH) type 1, approximatel y65% of patients wit h autoimmune cholangitis,gabriel roxima tely 30% of pat ients with primary biliarycirrhosi s, and approximately 2 % of healthy people. High values are clos derrick correlated with AIH type 1. RAFAEL (test code Performing Lab = RAFAEL) [facility] [address] [place] [address] Mauro Prater MD, PhD, NICOLE [facility] Ingleside CampusAnti-Nuclear Antibody (ANGELES)2018-10-21 11:18:00 Test Item Value Reference Range Interpretation Comments ANGELES (test code = 32625-3) Positive Negative A RAFAEL (test code = RAFAEL) Test performed by IFA method. Lab Interpretation (test Abnormal code = 83127-0) [facility] CampusANA Titer & [id number] 11:18:00 Test Item Value Reference Range Interpretation Comments ANGELES Titer (test code = 26941-7) 1:160 ANGELES Pattern (test code = 1781) Nucleolar [facility] CampusANTI-NUCLEAR ANTIBODY (ANGELES)2018-10-21 11:18:00 Test Item Value Reference Range Interpretation Comments ANTI-NUCLEAR ANTIBODY (ANGELES) (BEAKER) Positive Negative A (test code = 418) Test performed by IFA method.ANGELES TITER AND [id number] 11:18:00 Test Item Value Reference Range Interpretation Comments ANGELES TITER (BEAKER) (test code = :160 1541) ANGELES PATTERN (BEAKER) (test code = Nucleolar 1781) Hepatitis A [id number] 08:30:00 Test Item Value Reference Range Interpretation Comments Hep A IgM (test code = 60998-7) Nonreactive Nonreactive Hep A IgG (test code = 57160-6) Reactive Nonreactive A Lab Interpretation (test code = Abnormal 91350-6) [facility] CampusHEPATITIS A [id number] 08:30:00 Test Item Value Reference Range Interpretation Comments HEPATITIS A IGM ANTIBODY (BEAKER) Nonreactive Nonreactive (test code = 498) HEPATITIS A IGG ANTIBODY (BEAKER) Reactive Nonreactive A (test code = 2797) Hepatitis B [id number] 08:29:00 Test Item Value Reference Range Interpretation Comments Hep B Core Total Ab (test code = Nonreactive Nonreactive 40671-5) Hep B S Ab (test code = 04855-0) <8.0 <8.0 mIU/mL HBsAg Screen (test code = 5195-3) Nonreactive Nonreactive Lab Interpretation (test code = Normal 67571-9) [facility] CampusPOC-Glucose [id number] 08:29:00 Test Item Value Reference Range Interpretation Comments POC-Glucose Meter (test 270 mg/dL 70-110 H TEST ED AT [facility] code = 1538) [address] [place] [address] Lab Interpretation (test Abnormal code = 48278-4) [facility] CampusPOCT-GLUCOSE [id number] 08:29:00 Test Item Value Reference Range Interpretation Comments POC-GLUCOSE METER 270 mg/dL 70-110 H TESTED AT [facility] 6720 (BEAKER) (test code = MICHAEL [address] [place] 1538) [address] HEPATITIS B [id number] 08:29:00 Test Item Value Reference Range Interpretation Comments HEPATITIS B CORE TOTAL ANTIBODY Nonreactive Nonreactive (BEAKER) (test code = 497) HEPATITIS B SURFACE ANTIBODY < mIU/mL <8.0 (BEAKER) (test code = 647) HEPATITIS B SURFACE ANTIGEN (2) Nonreactive Nonreactive (BEAKER) (test code = 2585) Basic Metabolic [id number] 06:54:00 Test Item Value Reference Range Interpretation Comments Sodium (test code = 131 meq/L 136-145 L 2951-2) Potassium (test code = 4.7 meq/L 3.5-5.1 2823-3) Chloride (test code = 96 meq/L 98-107 L 2075-0) CO2 (test code = 25 meq/L 22-29 2028-9) BUN (test code = 62 mg/dL 7-21 H 3094-0) Creatinine (test code = 2.80 mg/dL 0.57-1.25 H 2160-0) Glucose (test code = 278 mg/dL 70-105 H 2345-7) Calcium (test code = 9.3 mg/dL 8.4-10.2 50271-9) EGFR (test code = 18 mL/min/1.73 [place] [address]-2) NOT ACCURATE CREATININE CLEARANCE IN PREDICTING GLOMERULAR FILTRATION RATE . ESTIMATED GFR I S NOT APPLICABLE FOR DIALYSIS PATIEN TS. Lab Interpretation Abnormal (test code = 87624-7) [facility] CampusBASAINT [facility] METABOLIC [id number] 06:54:00 Test Item Value Reference Range Interpretation Comments SODIUM (BEAKER) 131 meq/L 136-145 L (test code = 381) POTASSIUM (BEAKER) 4.7 meq/L 3.5-5.1 (test code = 379) CHLORIDE (BEAKER) 96 meq/L 98-107 L (test code = 382) CO2 (BEAKER) (test 25 meq/L 22-29 code = 355) BLOOD UREA NITROGEN 62 mg/dL 7-21 H (BEAKER) (test code = 354) CREATININE (BEAKER) 2.80 mg/dL 0.57-1.25 H (test code = 358) GLUCOSE RANDOM 278 mg/dL 70-105 H (BEAKER) (test code = 652) CALCIUM (BEAKER) 9.3 mg/dL 8.4-10.2 (test code = 697) EGFR (BEAKER) (test 18 mL/min/1.73 ESTIMA GURVINDER GFR IS code = 1092) sq m NOT ACCURATE CREATININE CLEARANCE IN PREDICTING GLOMERULAR FILTRATION RATE . ESTIMATED GFR I S NOT APPLICABLE FOR DIALYSIS PATIEN TS. Hepatic function [id number] 06:50:00 Test Item Value Reference Range Interpretation Comments Protein, Total (test code = 2885-2) 7.7 6.0- 8.3 gm/dL Albumin (test code = 25067-2) 3.5 g/dL 3.5-5 Total Bilirubin (test code = 0.4 mg/dL 0.2-1.2 1974-2) Bilirubin, Direct (test code = 0.2 mg/dL 0.1-0.5 1967-7) Alkaline Phosphatase (test code = 61 U/L 40-150 6768-6) AST (test code = 1920-8) 39 U/L 5-34 H ALT (test code = 1742-6) 253 U/L 6-55 H Lab Interpretation (test code = Abnormal 01383-0) [facility] CampusLactate dehydrogenase (LDH)2018-10-21 06:50:00 Test Item Value Reference Range Interpretation Comments LDH (test code = 2532-0) 224 U/L 125-220 H Lab Interpretation (test code = Abnormal 97822-3) [facility] CampusMagnesium2019-07-06 06:50:00 Test Item Value Reference Range Interpretation Comments Magnesium (test code = 61863-8) 2.1 mg/dL 1.6-2.6 Lab Interpretation (test code = Normal 20870-9) [facility] CampusMAGNESIUM2019-07-06 06:50:00 Test Item Value Reference Range Interpretation Comments MAGNESIUM (BEAKER) (test code = 2.1 mg/dL 1.6-2.6 627) HEPATIC FUNCTION [id number] 06:50:00 Test Item Value Reference Range Interpretation Comments TOTAL PROTEIN (BEAKER) (test code = 7.7 gm/dL 6.0-8.3 770) ALBUMIN (BEAKER) (test code = 1145) 3.5 g/dL 3.5-5.0 BILIRUBIN TOTAL (BEAKER) (test code 0.4 mg/dL 0.2-1.2 = 377) BILIRUBIN DIRECT (BEAKER) (test 0.2 mg/dL 0.1-0.5 code = 706) ALKALINE PHOSPHATASE (BEAKER) (test 61 U/L 40-150 code = 346) AST (SGOT) (BEAKER) (test code = 39 U/L 5-34 H 353) ALT (SGPT) (BEAKER) (test code = 253 U/L 6-55 H 347) LACTATE DEHYDROGENASE (LDH)2018-10-21 06:50:00 Test Item Value Reference Range Interpretation Comments LACTATE DEHYDROGENASE (BEAKER) (test 224 U/L 125-220 H code = 635) [id number] 06:20:00 Test Item Value Reference Range Interpretation Comments Ferritin (test code = 2276-4) 1162 ng/mL 5-275 H Lab Interpretation (test code = Abnormal 85679-7) [facility] CampusFERRITIN2019-07-06 06:20:00 Test Item Value Reference Range Interpretation Comments FERRITIN (BEAKER) (test code = 1162 ng/mL 5-275 H 361) Tissue Transglutaminase Abs,IgG and [id number] 22:35:00 Test Item Value Reference Range Interpretation Comments (tTG) Ab, IgG (test 30 U/mL H < 6 No code = 5134970) Antibody Detected> OR = 6 Antibody Detected (tTG) Ab, IgA (test <1 U/mL < 4 No code = 8273024) Antibody Detected> OR = 4 Antibody Detected RAFAEL (test code = RAFAEL) Performing Lab EZ [facility] [address] [place] [id number] Mauro Prater MD, PhD, NICOLE Lab Interpretation Abnormal (test code = 63315-0) [facility] CampusPOCT-GLUCOSE [id number] 21:09:00 Test Item Value Reference Range Interpretation Comments POC-GLUCOSE METER 336 mg/dL 70-110 H Notified Radha Curran MD/TESTED (BEAKER) (test code = AT [facility] [address] [facility] [address] POCT-GLUCOSE [id number] 18:17:00 Test Item Value Reference Range Interpretation Comments POC-GLUCOSE METER 308 mg/dL 70-110 H TESTED AT [facility] 67[address] ([facility]) (test code = BERTANEESH R [facility] 1538) [address] Protein electrophoresis, [id number] 17:39:00 Test Item Value Reference Range Interpretation Comments Albumin Fraction (test 3.0 g/dL 3.5-5.5 L code = 405) Alpha 1 Fraction (test 0.4 g/dL 0.2-0.4 code = 389) Alpha 2 Fraction (test 1.2 g/dL 0.5-0.9 H code = 390) Beta Fraction (test code 0.8 g/dL 0.6-1.1 = 392) Gamma Globulin Fraction 2.2 g/dL 0.7-1.7 H (test code = 391) Interpretation (test Total protein and code = 2615) albumin decreased. Alpha-1 and alpha-2 globulin percentages increased. Gamma increased in a diffuse fashion. This indicates an acute phase response and concomitant chronic immune or inflammatory response. Pathologist: (test code Armani To M.D. = 2616) (electonic signature) Protein, Total (test 7.6 6.0- 8.3 gm/dL code = 2660) Lab Interpretation (test Abnormal code = 29219-2) [facility] CampusPROTEIN ELECTROPHORESIS, [id number] 17:39:00 Test Item Value Reference Range Interpretation Comments ALBUMIN FRACTION 3.0 g/dL 3.5-5.5 L (BEAKER) (test code = 405) ALPHA 1 FRACTION 0.4 g/dL 0.2-0.4 (BEAKER) (test code = 389) ALPHA 2 FRACTION 1.2 g/dL 0.5-0.9 H (BEAKER) (test code = 390) BETA FRACTION 0.8 g/dL 0.6-1.1 (BEAKER) (test code = 392) GAMMA GLOBULIN 2.2 g/dL 0.7-1.7 H FRACTION (BEAKER) (test code = 391) INTERPRETATION-119 Total protein and (BEAKER) (test code = albumin decreased. 2615) Alpha-1 and alpha-2 globulin percentages increased. Gamma increased in a diffuse fashion. This indicates an acute phase response and concomitant chronic immune or inflammatory response. [id number] Armani To M.D. (BEAKER) (test code = (electonic signature) 2616) PROTEIN TOTAL SERUM, 7.6 gm/dL 6.0-8.3 SPEP (BEAKER) (test code = 2660) [id number] 15:24:00 Test Item Value Reference Range Interpretation Comments Ceruloplasmin (test 48 mg/dL 18-53 Adults: code = 5012797) Males: 1 8-36 mg/dL Females: 18-53 mg/dL Pediatrics: Males (mg/dL) Females (mg/dL)-------- - -- 0-30 Days 8-25 3-28 31 Days-11 Month 15-48 15-43 1-3 Years 25-56 29-54 4-6 Year s 29-5 6 26-5 4 7-9 Years 25-52 23-48 10-12 Years 21-51 21-48 13-1 5 Years 20-50 21-46 16-18 Years 20-45 22-50 The pediatric range s are derived fro m the following criteria: Miladis SJ, Brayden pal JM, Pina J et al Pediatric reference range s for Ecjs-9-Dviejvme b ulin and ceruloplasmin. Clin. Chem 1997 ; 43:S1999 Pediatric Reference Ranges, 2nd., S F Miladiset al. editors. [employer], [place], [place] 1997. RAFAEL (test code = Performing Lab RAFAEL) *SPL [facility], [address] [place] [id number] Kendy Lees MD, PhD [facility] CampusBONE MARROW PROCESS.2018-10-20 12:02:00 Test Item Value Reference Range Interpretation Comments Anatomic Case# (test M19-113 code = 2470) Ordering Physician Isaacer (test code = 2457) Performing Physician Cora (test code = 2458) Clot Rec'd? (test code Yes = 2459) Biopsy Rec'd? (test Yes code = 2460) Rec'd for Culture? No (test code = 2464) Rec'd for Flow? (test Yes code = 2461) Rec'd for Cytogenetics? Yes (test code = 2462) Rec'd for Molecular Yes Genetics? (test code = 2463) RAFAEL (test code = RAFAEL) Good collection by Dr Curran slides are good(Rosa) [facility] MARROW PROCESS.2018-10-20 12:02:00 Test Item Value Reference Range Interpretation Comments ANATOMIC CASE# (BEAKER) (test code M19-113 = 2470) ORDERED BY DOCTOR# (OPAL) (test Escudier code = 2457) PERFORMED BY DOCTOR# (OPAL) (test Sofiazzuri code = 2458) CLOT RECEIVED? (BEAKER) (test code Yes = 2459) BIOPSY RECEIVED? (BEAKER) (test Yes code = 2460) CULTURE RECEIVED? (BEAKER) (test No code = 2464) FLOW RECEIVED? (BEAKER) (test code Yes = 2461) CYTOGENICS? (BEAKER) (test code = Yes 2462) MOLECULAR GENETICS? (BEAKER) (test Yes code = 2463) Good collection by Dr Curran slides are [...] bone was performed. This wasgiven to the copy room technician who was present at the time of the study and deemed adequate. Subsequently, a core biopsy was obtained. This was also given to the copy room technician. COMPLICATIONS:None. ESTIMATED BLOOD LOSS: Minimal. Patient Disposition: The patient was in the same state post procedure as preprocedure. IMPRESSION: Successful CT-guided aspiration and core biopsy of the bone marrow. Signed: Neftaly Shepherd MDReport Verified Date/Time: 10/20/2018 11:46:15 Reading Location: [address] Consult Reading Room 1 1:46 [facility] Biopsy/Aspiration/[id number] 11:46:00Interface, External Ris In - 10/20/2018 11:[address]-guided asp iration and core biopsy of the bone marrow. CLINICAL HISTORY: Anemia, hepatosplenomegaly. COMPARISONSTUDY: None. Informed consent was obtained from the [...] time: 20 minutes. TECHNIQUE: Using sterile technique, CTfluoroscopic guidance and a 12-gauge Bonopty core biopsy system, initially a nine cc aspiration of the posterior left iliac bone was performed. This was given to the copy room technician who was present at the time of the study and deemed adequate. Subsequently, a core biopsy was obtained. This was also given to the copy room technician. COMPLICATIONS: None. ESTIMATED BLOOD LOSS: Minimal. Patient Disp osition: The patient was in the same state post procedure as preprocedure. IMPRESSION: Successful CT-guided aspiration and core biopsy of the bone marrow. Signed: Neftaly Shepherd MDReport Verified Date/Time: 10/20/2018 11:46:15 Reading Location: [facility] C013X Ortho Consult Reading [facility] [id number] 11:37:00 Test Item Value Reference Range Interpretation Comments POC-GLUCOSE METER 213 mg/dL 70-110 H TESTED AT [facility] 67[address] [facility] (test code = [place]EL [place] 1538) [address] CBC with platelet count + automated [id number] 10:17:00 Test Item Value Reference Range Interpretation Comments WBC (test code = 6690-2) 5.6 3.5- 10.5 K/L RBC (test code = 789-8) 3.27 3.93- 5.22 M/L L MCHC (test code = 786-4) 31.9 32.2- 35.5 GM/DL L Hematocrit (test code = 4544-3) 29.8 % 34.1-44.9 L MCV (test code = 787-2) 91.1 fL 79.4-94.8 MCH (test code = 785-6) 29.1 pg 25.6-32.2 RDW (test code = 788-0) 15.1 % 11.7-14.4 H Platelets (test code = 777-3) 260 150- 450 K/CU MM MPV (test code = 26041-5) 11.1 fL 9.4-12.3 nRBC (test code = 413) 0 0- 0 /100 WBC Lab Interpretation (test code = Abnormal 84097-6) [facility] CampusManual [id number] 10:17:00 Test Item Value Reference Range Interpretation Comments % Neutros (test code = 60 % 2816) % Lymphs (test code = 31 % 2817) % Monos (test code = 2818) 3 % % Eos (test code = 2819) 4 % % Metamyelo (test code = 1 % 0-0 H 2821) % Bands (test code = 2826) 1 % 0-10 # Neutros (test code = 3.36 K/ul 1.56-6.13 2830) # Lymphs (test code = 1.74 K/ul 1.18-3.74 2831) # Monos (test code = 2832) 0.17 K/uL 0.24-0.36 L # Eos (test code = 2834) 0.22 K/uL 0.04-0.36 # Metamyelo (test code = 0.06 K/uL 0-0 H 2836) # Bands (test code = 2840) 0.06 K/uL 0-0.8 Total Counted (test code = 100 1351) nRBC (manual) (test code = 1 0- 0 /100 WBC H 1353) WBC Morphology (test code Normal = 487) Platelet Morphology (test Normal code = 486) Polychromasia (test code = 1+ few 478) Anisocytosis (test code = 1+ few 961) Artifact (test code = Present 3432) Platelet Conc (test code = Adequate 3438) RAFAEL (test code = RAFAEL) Received comment: User comments: Slide comments: Lab Interpretation (test Abnormal code = 26340-1) [facility] W/PLT COUNT & AUTO [id number] 10:17:00 Test Item Value Reference Range Interpretation Comments WHITE BLOOD CELL COUNT (BEAKER) 5.6 K/ L 3.5-10.5 (test code = 775) RED BLOOD CELL COUNT (BEAKER) 3.27 M/ L 3.93-5.22 L (test code = 761) HEMOGLOBIN (BEAKER) (test code = 9.5 GM/DL 11.2-15.7 L 410) HEMATOCRIT (BEAKER) (test code = 29.8 % 34.1-44.9 L 411) MEAN CORPUSCULAR VOLUME (BEAKER) 91.1 fL 79.4-94.8 (test code = 753) MEAN CORPUSCULAR HEMOGLOBIN 29.1 pg 25.6-32.2 (BEAKER) (test code = 751) MEAN CORPUSCULAR HEMOGLOBIN CONC 31.9 GM/DL 32.2-35.5 L (BEAKER) (test code = 752) RED CELL DISTRIBUTION WIDTH 15.1 % 11.7-14.4 H (BEAKER) (test code = 412) PLATELET COUNT (BEAKER) (test 260 K/CU MM 150-450 code = 756) MEAN PLATELET VOLUME (BEAKER) 11.1 fL 9.4-12.3 (test code = 754) NUCLEATED RED BLOOD CELLS 0 /100 WBC 0-0 (BEAKER) (test code = 413) (CELLAVISION MANUAL DIFF)2018-10-20 10:17:00 Test Item Value Reference Range Interpretation Comments NEUTROPHILS - REL 60 % (CELLAVISION)(BEAKER) (test code = 2816) LYMPHOCYTES - REL 31 % (CELLAVISION)(BEAKER) (test code = 2817) MONOCYTES - REL 3 % (CELLAVISION)(BEAKER) (test code = 2818) EOSINOPHILS - REL 4 % (CELLAVISION)(BEAKER) (test code = 2819) METAMYELOCYTES - REL 1 % 0-0 H (CELLAVISION)(BEAKER) (test code = 2821) BANDS - REL (CELLAVISION)(BEAKER) 1 % 0-10 (test code = 2826) NEUTROPHILS - ABS 3.36 K/ul 1.56-6.13 (CELLAVISION)(BEAKER) (test code = 2830) LYMPHOCYTES - ABS 1.74 K/ul 1.18-3.74 (CELLAVISION)(BEAKER) (test code = 2831) MONOCYTES - ABS 0.17 K/uL 0.24-0.36 L (CELLAVISION)(BEAKER) (test code = 2832) EOSINOPHILS - ABS 0.22 K/uL 0.04-0.36 (CELLAVISION)(BEAKER) (test code = 2834) METAMYELOCYTES - ABS 0.06 K/uL 0.00-0.00 H (CELLAVISION)(BEAKER) (test code = 2836) BANDS - ABS (CELLAVISION)(BEAKER) 0.06 K/uL 0.00-0.80 (test code = 2840) TOTAL COUNTED (BEAKER) (test code 100 = 1351) MANUAL NRBC PER 100 CELLS (BEAKER) 1 /100 WBC 0-0 H (test code = 1353) WBC MORPHOLOGY (BEAKER) (test code Normal = 487) PLT MORPHOLOGY (BEAKER) (test code Normal = 486) POLYCHROMATOPHILLIC RBCS(BEAKER) 1+ few (test code = 478) ANISOCYTOSIS (BEAKER) (test code = 1+ few 961) ARTIFACT (CELLAVISION)(BEAKER) Present (test code = 3432) PLATELET CONCENTRATION Adequate (CELLAVISION)(BEAKER) (test code = 3438) Received comment: User comments: Slide comments:BASIC METABOLIC [id number] 07:15:00 Test Item Value Reference Range Interpretation Comments SODIUM (BEAKER) 135 meq/L 136-145 L (test code = 381) POTASSIUM (BEAKER) 4.6 meq/L 3.5-5.1 Specimen slightly (test code = 379) hemolyzed CHLORIDE (BEAKER) 97 meq/L 98-107 L (test code = 382) CO2 (BEAKER) (test 26 meq/L 22-29 code = 355) BLOOD UREA NITROGEN 56 mg/dL 7-21 H (BEAKER) (test code = 354) CREATININE (BEAKER) 2.65 mg/dL 0.57-1.25 H Specimen slightly (test code = 358) hemolyzed GLUCOSE RANDOM 191 mg/dL 70-105 H (BEAKER) (test code = 652) CALCIUM (BEAKER) 9.6 mg/dL 8.4-10.2 (test code = 697) EGFR (BEAKER) (test 19 mL/min/1.73 ESTIMA GURVINDER GFR IS code = 1092) sq m NOT ACCURATE CREATININE CLEARANCE IN PREDICTING GLOMERULAR FILTRATION RATE . ESTIMATED GFR I S NOT APPLICABLE FOR DIALYSIS PATIEN TS. [id number] 06:12:00 Test Item Value Reference Range Interpretation Comments Phosphorus (test code = 4.7 mg/dL 2.3-4.7 Spec imen slightly 2777-1) hemolyzed Lab Interpretation (test Normal code = 09376-7) [facility] 06:12:00 Test Item Value Reference Range Interpretation Comments MAGNESIUM (BEAKER) 2.0 mg/dL 1.6-2.6 Specimen slightly (test code = 627) hemolyzed [id number] 06:12:00 Test Item Value Reference Range Interpretation Comments PHOSPHORUS (BEAKER) 4.7 mg/dL 2.3-4.7 Specimen slightly (test code = 604) hemolyzed [id number] 06:06:00 Test Item Value Reference Range Interpretation Comments Protime (test code = 13.0 11.9- 14.2 5902-2) seconds INR (test code = 1.0 <=5.9 6301-6) PTT (test code = 32.3 22.5- 36.0 93728-4) seconds RAFAEL (test code = RAFAEL) Effective 09/13/2018: PT Reference Range ChangeNew: 11.9-14.2 Previous: 11.7-14.7 RECOMMENDED COUMADIN/WARFARIN INR THERAPY RANGESSTANDARD DOSE: 2.0-3.0 Includes: PROPHYLAXIS for venous thrombosis, systemic embolization; TREATMENT for venous thrombosis and/or pulmonary embolus.HIGH RISK: Target INR is 2.5-3.5 for patients wiht mechanical heart valves. Lab Interpretation Normal (test code = 05221-0) [facility] CampusPT/[id number] 06:06:00 Test Item Value Reference Range Interpretation Comments PROTIME (BEAKER) (test code = 13.0 seconds 11.9-14.2 759) INR (BEAKER) (test code = 370) 1.0 <=5.9 PARTIAL THROMBOPLASTIN TIME 32.3 seconds 22.5-36.0 (BEAKER) (test code = 760) Effective 09/13/2018: PT Reference Range ChangeNew: 11.9-14.2 Previous: 11.7- 14.7RECOMMENDED COUMADIN/WARFARIN INR THERAPY RANGESSTANDARD DOSE: 2.0-3.0 Includes: PROPHYLAXIS for venous thrombosis, systemic embolization; TREATMENT for venous thrombosis and/or pulmonary embolus.HIGH RISK: Target INR is2.5-3.5 for patients wiht mechanical heart valves.POCT-GLUCOSE [id number] 21:39:00 Test Item Value Reference Range Interpretation Comments POC-GLUCOSE METER 327 mg/dL 70-110 H Will Repea t Test/TESTED (BEAKER) (test code = AT [facility] [address]) [place] [address] POCT-GLUCOSE [id number] 17:28:00 Test Item Value Reference Range Interpretation Comments POC-GLUCOSE METER 244 mg/dL 70-110 H TESTED AT [facility] [address] (BEAKER) (test code = MICHAEL Garcia [place] 1538) [address] Rheumatoid factor Ab, reflex to [id number] 11:15:00 Test Item Value Reference Range Interpretation Comments Rheumatoid Factor (test code = Negative 28724-8) [facility] CampusRHEUMATOID FACTOR AB, REFLEX TO [id number] 11:15:00 Test Item Value Reference Range Interpretation Comments RHEUMATOID FACTOR (BEAKER) (test Negative code = 573) CBC W/PLT COUNT & AUTO [id number] 09:44:00 Test Item Value Reference Range Interpretation Comments WHITE BLOOD CELL COUNT (BEAKER) 4.8 K/ L 3.5-10.5 (test code = 775) RED BLOOD CELL COUNT (BEAKER) 3.17 M/ L 3.93-5.22 L (test code = 761) HEMOGLOBIN (BEAKER) (test code = 9.0 GM/DL 11.2-15.7 L 410) HEMATOCRIT (BEAKER) (test code = 29.0 % 34.1-44.9 L 411) MEAN CORPUSCULAR VOLUME (BEAKER) 91.5 fL 79.4-94.8 (test code = 753) MEAN CORPUSCULAR HEMOGLOBIN 28.4 pg 25.6-32.2 (BEAKER) (test code = 751) MEAN CORPUSCULAR HEMOGLOBIN CONC 31.0 GM/DL 32.2-35.5 L (BEAKER) (test code = 752) RED CELL DISTRIBUTION WIDTH 15.2 % 11.7-14.4 H (BEAKER) (test code = 412) PLATELET COUNT (BEAKER) (test 228 K/CU MM 150-450 code = 756) MEAN PLATELET VOLUME (BEAKER) 10.7 fL 9.4-12.3 (test code = 754) NUCLEATED RED BLOOD CELLS 1 /100 WBC 0-0 H (BEAKER) (test code = 413) (CELLAVISION MANUAL DIFF)2018-10-19 09:44:00 Test Item Value Reference Range Interpretation Comments NEUTROPHILS - REL 72 % (CELLAVISION)(BEAKER) (test code = 2816) LYMPHOCYTES - REL 14 % (CELLAVISION)(BEAKER) (test code = 2817) MONOCYTES - REL 4 % (CELLAVISION)(BEAKER) (test code = 2818) EOSINOPHILS - REL 5 % (CELLAVISION)(BEAKER) (test code = 2819) METAMYELOCYTES - REL 4 % 0-0 H (CELLAVISION)(BEAKER) (test code = 2821) MYELOCYTES - REL 1 % 0-0 H (CELLAVISION)(BEAKER) (test code = 2822) NEUTROPHILS - ABS 3.46 K/ul 1.56-6.13 (CELLAVISION)(BEAKER) (test code = 2830) LYMPHOCYTES - ABS 0.67 K/ul 1.18-3.74 L (CELLAVISION)(BEAKER) (test code = 2831) MONOCYTES - ABS 0.19 K/uL 0.24-0.36 L (CELLAVISION)(BEAKER) (test code = 2832) EOSINOPHILS - ABS 0.24 K/uL 0.04-0.36 (CELLAVISION)(BEAKER) (test code = 2834) METAMYELOCYTES - ABS 0.19 K/uL 0.00-0.00 H (CELLAVISION)(BEAKER) (test code = 2836) MYELOCYTES-ABS 0.05 K/uL 0.00-0.00 H (CELLAVISION)(BEAKER) (test code = 2837) TOTAL COUNTED (BEAKER) (test code 100 = 1351) MANUAL NRBC PER 100 CELLS (BEAKER) 2 /100 WBC 0-0 H (test code = 1353) SMUDGE CELLS (BEAKER) (test code = Present 1371) GIANT PLATELETS (BEAKER) (test Present code = 313) ANISOCYTOSIS (BEAKER) (test code = 1+ few 961) PLATELET CONCENTRATION Adequate (CELLAVISION)(BEAKER) (test code = 3438) Received comment: User comments: Slide comments:POCT-GLUCOSE [id number] 09:05:00 Test Item Value Reference Range Interpretation Comments POC-GLUCOSE METER 166 mg/dL 70-110 H TESTED AT [facility] [address] (OPAL) (test code = MICHAEL [place] 1538) [address] Comprehensive metabolic [id number] 07:14:00 Test Item Value Reference Range Interpretation Comments Protein, Total (test 8.2 6.0- 8.3 gm/dL Speci men slightly code = 2885-2) hemolyzed Albumin (test code = 3.6 g/dL 3.5-5 Specime n slightly 01485-7) hemolyzed Alkaline Phosphatase 72 U/L 40-150 (test code = 6768-6) Total Bilirubin (test 0.5 mg/dL 0.2-1.2 Specim en slightly code = 1975-2) hemolyzed Sodium (test code = 135 meq/L 136-145 L 2951-2) Potassium (test code = 4.2 meq/L 3.5-5.1 Speci men slightly 2823-3) hemolyzed Chloride (test code = 97 meq/L 98-107 L 2075-0) CO2 (test code = 27 meq/L 22-29 2028-9) BUN (test code = 60 mg/dL 7-21 H 3094-0) Creatinine (test code = 2.79 mg/dL 0.57-1.25 H Spec imen slightly 2160-0) hemolyzed Glucose (test code = 171 mg/dL 70-105 H 2345-7) Calcium (test code = 9.5 mg/dL 8.4-10.2 08764-3) AST (test code = 152 U/L 5-34 H Specimen sl ightly 1920-8) hemolyzed ALT (test code = 532 U/L 6-55 H Specimen sl ightly 1742-6) hemolyzed EGFR (test code = 18 mL/min/1.73 [place] [address]-8) NOT ACCURATE CREATININE CLEARANCE IN PREDICTING GLOMERULAR FILTRATION RATE . ESTIMATED GFR I S NOT APPLICABLE FOR DIALYSIS PATIEN TS. Lab Interpretation Abnormal (test code = 69208-2) [facility] CampusCOMPREHENSIVE METABOLIC [id number] 07:14:00 Test Item Value Reference Range Interpretation Comments TOTAL PROTEIN 8.2 gm/dL 6.0-8.3 Specimen sligh tly (BEAKER) (test code = hemoly zed 770) ALBUMIN (BEAKER) 3.6 g/dL 3.5-5.0 Specimen sl ightly (test code = 1145) hemolyzed ALKALINE PHOSPHATASE 72 U/L 40-150 (BEAKER) (test code = 346) BILIRUBIN TOTAL 0.5 mg/dL 0.2-1.2 Specimen sli ghtly (BEAKER) (test code = hemoly zed 377) SODIUM (BEAKER) (test 135 meq/L 136-145 L code = 381) POTASSIUM (BEAKER) 4.2 meq/L 3.5-5.1 Specimen slightly (test code = 379) hemolyzed CHLORIDE (BEAKER) 97 meq/L 98-107 L (test code = 382) CO2 (BEAKER) (test 27 meq/L 22-29 code = 355) BLOOD UREA NITROGEN 60 mg/dL 7-21 H (BEAKER) (test code = 354) CREATININE (BEAKER) 2.79 mg/dL 0.57-1.25 H Specimen slightly (test code = 358) hemolyzed GLUCOSE RANDOM 171 mg/dL 70-105 H (BEAKER) (test code = 652) CALCIUM (BEAKER) 9.5 mg/dL 8.4-10.2 (test code = 697) AST (SGOT) (BEAKER) 152 U/L 5-34 H Specimen slightly (test code = 353) hemolyzed ALT (SGPT) (BEAKER) 532 U/L 6-55 H Specimen slightly (test code = 347) hemolyzed EGFR (BEAKER) (test 18 mL/min/1.73 ESTIMA GURVINDER GFR IS code = 1092) sq m NOT ACCURATE CREATININE CLEARANCE IN PREDICTING GLOMERULAR FILTRATION RATE . ESTIMATED GFR I S NOT APPLICABLE FOR DIALYSIS PATIEN TS. [id number] 06:36:00 Test Item Value Reference Range Interpretation Comments Uric Acid (test code = 9.8 mg/dL 2.6-7.2 H Speci men slightly 3084-1) hemolyzed Lab Interpretation (test Abnormal code = 69316-8) [facility]2019-07-04 06:36:00 Test Item Value Reference Range Interpretation Comments MAGNESIUM (BEAKER) 2.0 mg/dL 1.6-2.6 Specimen slightly (test code = 627) hemolyzed [id number] 06:36:00 Test Item Value Reference Range Interpretation Comments PHOSPHORUS (BEAKER) 4.4 mg/dL 2.3-4.7 Specimen slightly (test code = 604) hemolyzed URIC [id number] 06:36:00 Test Item Value Reference Range Interpretation Comments URIC ACID (BEAKER) 9.8 mg/dL 2.6-7.2 H Specimen slightly (test code = 773) hemolyzed HEPATIC FUNCTION [id number] 06:36:00 Test Item Value Reference Range Interpretation Comments TOTAL PROTEIN (BEAKER) 8.2 gm/dL 6.0-8.3 Speci men slightly (test code = 770) hemolyzed ALBUMIN (BEAKER) (test 3.6 g/dL 3.5-5.0 Speci men slightly code = 1145) hemolyzed BILIRUBIN TOTAL 0.5 mg/dL 0.2-1.2 Specimen sli ghtly (BEAKER) (test code = hemoly zed 377) BILIRUBIN DIRECT 0.2 mg/dL 0.1-0.5 Specimen sl ightly (BEAKER) (test code = hemoly zed 706) ALKALINE PHOSPHATASE 72 U/L 40-150 (BEAKER) (test code = 346) AST (SGOT) (BEAKER) 152 U/L 5-34 H Specimen slightly (test code = 353) hemolyzed ALT (SGPT) (BEAKER) 532 U/L 6-55 H Specimen slightly (test code = 347) hemolyzed B-type Natriuretic Factor (BNP)2018-10-19 06:33:00 Test Item Value Reference Range Interpretation Comments BNP (test code = 46998-1) 162 pg/mL 0-100 H Lab Interpretation (test code = Abnormal 40799-5) [facility] CampusB-TYPE NATRIURETIC FACTOR (BNP)2018-10-19 06:33:00 Test Item Value Reference Range Interpretation Comments B-TYPE NATRIURETIC PEPTIDE (BEAKER) 162 pg/mL 0-100 H (test code = 700) Prothrombin time/[id number] 06:06:00 Test Item Value Reference Range Interpretation Comments Protime (test code = 13.4 11.9- 14.2 5902-2) seconds INR (test code = 1.1 <=5.9 6301-6) RAFAEL (test code = RAFAEL) Effective 09/13/2018: PT Reference Range ChangeNew: 11.9-14.2 Previous: 11.7-14.7 RECOMMENDED COUMADIN/WARFARIN INR THERAPY RANGESSTANDARD DOSE: 2.0-3.0 Includes: PROPHYLAXIS for venous thrombosis, systemic embolization; TREATMENT for venous thrombosis and/or pulmonary embolus.HIGH RISK: Target INR is 2.5-3.5 for patients wiht mechanical heart valves. Lab Interpretation Normal (test code = 95078-8) [facility] CampusPROTHROMBIN TIME/[id number] 06:06:00 Test Item Value Reference Range Interpretation Comments PROTIME (BEAKER) (test code = 13.4 seconds 11.9-14.2 759) INR (BEAKER) (test code = 370) 1.1 <=5.9 Effective 09/13/2018: PT Reference Range ChangeNew: 11.9-14.2 Previous: 11.7- 14.7RECOMMENDED COUMADIN/WARFARIN INR THERAPY RANGESSTANDARD DOSE: 2.0-3.0 Includes: PROPHYLAXIS for venous thrombosis, systemic embolization; TREATMENT for venous thrombosis and/or pulmonary embolus.HIGH RISK: Target INR is2.5-3.5 for patients wiht mechanical heart valves.Calcium, [id number] 05:56:00 Test Item Value Reference Range Interpretation Comments Calcium, Ion (test code = 1994-3) 1.07 mmol/L 1.12-1.27 L pH, Blood (test code = 65853-3) 7.41 Lab Interpretation (test code = Abnormal 53126-8) [facility] CampusCALCIUM, [id number] 05:56:00 Test Item Value Reference Range Interpretation Comments CALCIUM IONIZED (BEAKER) (test 1.10 mmol/L 1.12-1.27 L code = 698) PH, BLOOD (BEAKER) (test code = 7.38 1810) CALCIUM, [id number] 05:56:00 Test Item Value Reference Range Interpretation Comments CALCIUM IONIZED (BEAKER) (test 1.07 mmol/L 1.12-1.27 L code = 698) PH, BLOOD (BEAKER) (test code = 7.41 1810) Prepare Leuko-Red [id number] 23:54:00 Test Item Value Reference Range Interpretation Comments CROSSMATCH (test code = 2264) COMPATIBLE Unit ABO (test code = A Pos 0440948) UNIT NUMBER (test code = [id number] 934-0) Status (test code = 2019782) TX_TIMEINCHART Blood Bank Product (test code RED BLOOD CELLS = 2263) PRODUCT CODE (test code = M7414W69 933-2) [facility] CampusPOCT-GLUCOSE [id number] 21:33:00 Test Item Value Reference Range Interpretation Comments POC-GLUCOSE METER 297 mg/dL 70-110 H TESTED AT [facility] [address] (OPAL) (test code = MICHAEL [place] 1538) [address] CMV PCR, [id number] 18:31:00 Test Item Value Reference Range Interpretation Comments CMV DNA Viral Negative or below the linear Load (test code = range of the assay (<375 2558) copies/mL) RAFAEL (test code = Cytomegalovirus (CMV) RAFAEL) infection can cause significant disease in immunosuppressed patients. However, it is common for CMV to manifest as a limited infection which is of no clinical significance in immunosuppressed patients or in healthy individuals. Viral load measurements are helpful to identify clinical CMV infection and to guide the pre-emptive management of antiviral therapy. For treatment of CMV infection due to reactivation [...] and its performance characteristics determined by the [facility] Pathology Department, Section of Molecular Pathology. It has not been cleared or approved by the U.S. Food and Drug Administration (FDA), since FDA approval is not required for clinical use of the test. Validation was done as required by The Clinical Laboratory Improvement Amendments of 1988. [facility]CMV PCR, [id number] 18:31:00 Test Item Value Reference Range Interpretation Comments CMV VIRAL LOAD - Negative or below the NEGATIVE (BEAKER) (test linear range of the code = 2558) assay (<375 copies/mL) Cytomegalovirus (CMV) infection can [...] and its performance characteristics determined by the [facility] Path ology Department, Section of Molecular Pathology. It has not been cleared or approved by the U.S. Food and Drug Administration (FDA), since FDA approval is not required for clinical use of the test. Validation was done as required by The Clinical Laboratory Improvement Amendments of 1988.EBV Viral [id number] 18:23:00 Test Item Value Reference Range Interpretation Comments EBV Viral Load Negative or below the (test code = 2559) linear range of the assay (<500 copies/mL) RAFAEL (test code = This assay was performed by RAFAEL) real-time PCR for the detection of the Adria-Pozo virus (EBV) gene EBNA-1. The test is composed of (1) DNA extraction from patient specimen, and (2) real-time PCR amplification and detection with OXAY-8-pptbtoig primers and probes. A well-conserved region of the EBNA-1 gene is targeted, along with an internal control sequence used to confirm PCR amplification. Asymptomatic carriers and viral genetic variation, among other factors, can affect the accuracy of nucleic acid testing; therefore, results should be interpreted in light of clinical data. This test was developed and its performance characteristics determined by the [facility] Pathology Department, Section of Molecular Pathology. It has not been cleared or approved by the U.S. Food and Drug Administration (FDA), since FDA approval is not required for clinical use of the test. Validation was done as required by The Clinical Laboratory Improvement Amendments of 1988. [facility] HospitalEBV VIRAL [id number] 18:23:00 Test Item Value Reference Range Interpretation Comments EBV VIRAL LOAD - Negative or below the NEGATIVE (SUZIE) (test linear range of the code = 2559) assay (<500 copies/mL) This assay was performed by real-time PCR for the detection of the Adria-Pozo virus (EBV) gene EBNA-1. The test is composed of (1) DNA extraction from patient specimen, and (2) real-time PCR amplification and detection with FTNS-4-iqhhqiwd primers and probes. A well-conserved region of the EBNA-1 gene is targeted, along with an internal control sequence used to confirm PCR amplification. Asymptomatic carriers and viral genetic variation, among other factors, can affect the accuracy of nucleic acid testing; therefore, results should be interpreted in light of clinical data.This test was developedand its performance characteristics determined by the [facility] Pathology Department, Section of Molecular Pathology. It has not been cleared or approved by the U.S. Food and Drug Administration (FDA), since FDA approval is not required for clinical use of the test. Validation was doneas required by The Clinical Laboratory Improvement Amendments of 1988.POCT-GLUCOSE [id number] 18:02:00 Test Item Value Reference Range Interpretation Comments POC-GLUCOSE METER 198 mg/dL 70-110 H TESTED AT [facility] [address] ([facility]) (test code = [place] 1538) [address] Respiratory Panel [id number] 17:32:00 Test Item Value Reference Range Interpretation Comments Human Metapneumovirus Not detected Not detected, (test code = 41126-9) Equivocal Rhinovirus (test code = Not detected Not detected, 92912-7) Equivocal INFLUENZA A (NO Not detected Not detected, SUBTYPE) (test code = Equivocal 81685-8) Influenza A subtype H1 Not detected, (test code = 91265-1) Equivocal Influenza A Subtype H3 Not detected, (test code = 65228-9) Equivocal Influenza A Subtype Not detected, H1-2009 (test code = Equivocal 22237-9) Influenza B (test code Not detected Not detected, = 43951-1) Equivocal Respiratory Syncytial Not detected Not detected, Virus (test code = Equivocal 57365-1) Parainfluenza Virus 1 Not detected Not detected, (test code = 47331-3) Equivocal Parainfluenza Virus 2 Not detected Not detected, (test code = 61064-8) Equivocal Parainfluenza virus 3 Not detected Not detected, (test code = 39485-7) Equivocal Parainfluenza Virus 4 Not detected Not detected, (test code = 29447-0) Equivocal Adenovirus (test code = Not detected Not detected, 80809-8) Equivocal Coronavirus 229E (test Not detected Not detected, code = 60925-3) Equivocal Coronavirus HKU1 (test Not detected Not detected, code = 76154-3) Equivocal Coronavirus NL63 (test Not detected Not detected, code = 27978-1) Equivocal Coronavirus OC43 (test Not detected Not detected, code = 90187-6) Equivocal Bordetella Pertussis Not detected Not detected, (test code = 76098-0) Equivocal Chlamydophila Not detected Not detected, Pneumoniae (test code = Equivocal 71031-2) Mycoplasma Pneumoniae Not detected Not detected, (test code = 13238-0) Equivocal RAFAEL (test code = RAFAEL) Other viruses and bacteria not targeted by this PCR panel cannot be excluded; therefore clinical correlation and follow up of serology, culture results, and other molecular studies is required. The results are not intended to be used as the sole means for clinical diagnosis or patient management decisions. This sample was tested at the [facility] Molecular Diagnostics Laboratory using the [employer]Me[employer] Respiratory Panel. It is FDA cleared and has been verified and approved by the [facility]ostics [facility] for clinical use on nasopharyngeal swab specimens. The performance of the FilmArray RP has not been established in individuals who received influenza vaccine. Recent administration of a nasal influenza vaccine may cause false positive results for Influenza A and/orInfluenza B. [facility]RES[facility]AT[facility] PAN[facility] [id number] 17:32:00 Test Item Value Reference Range Interpretation Comments HUMAN METAPNEUMOVIRUS Not detected Not detected, (BEAKER) (test code = 2683) Equivocal RHINOVIRUS (BEAKER) (test Not detected Not detected, code = 2684) Equivocal INFLUENZA A (BEAKER) (test Not detected Not detected, code = 2685) Equivocal INFLUENZA A (NO SUBTYPE) Not detected, (test code = 3606) Equivocal INFLUENZA A SUBTYPE H1 Not detected, (BEAKER) (test code = 2686) Equivocal INFLUENZA A SUBTYPE H3 Not detected, (BEAKER) (test code = 2687) Equivocal INFLUENZA A SUBTYPE H1-2009 Not detected, (BEAKER) (test code = 3198) Equivocal INFLUENZA B (BEAKER) (test Not detected Not detected, code = 2688) Equivocal RESPIRATORY SYNCYTIAL VIRUS Not detected Not detected, (BEAKER) (test code = 3199) Equivocal PARAINFLUENZA VIRUS 1 Not detected Not detected, (BEAKER) (test code = 2691) Equivocal PARAINFLUENZA VIRUS 2 Not detected Not detected, (BEAKER) (test code = 2692) Equivocal PARAINFLUENZA VIRUS 3 Not detected Not detected, (BEAKER) (test code = 2693) Equivocal PARAINFLUENZA VIRUS 4 Not detected Not detected, (BEAKER) (test code = 3200) Equivocal ADENOVIRUS (BEAKER) (test Not detected Not detected, code = 2694) Equivocal CORONAVIRUS 229E (BEAKER) Not detected Not detected, (test code = 3201) Equivocal CORONAVIRUS HKU1 (BEAKER) Not detected Not detected, (test code = 3202) Equivocal CORONAVIRUS NL63 (BEAKER) Not detected Not detected, (test code = 3203) Equivocal CORONAVIRUS OC43 (BEAKER) Not detected Not detected, (test code = 3204) Equivocal BORDETELLA PERTUSSIS Not detected Not detected, (BEAKER) (test code = 3205) Equivocal CHLAMYDOPHILA PNEUMONIAE Not detected Not detected, (BEAKER) (test code = 3206) Equivocal MYCOPLASMA PNEUMONIAE Not detected Not detected, (BEAKER) (test code = 3207) Equivocal Other viruses and bacteria not targeted by this PCR panel cannot be excluded; therefore clinical correlation and follow up of serology, culture results, and other molecular studies is required. The results are not intended to be used as the sole means for clinical diagnosis or patient management decisions. This sample was tested at the [facility] Molecular Diagnostics Laboratory using the [employer] FilmArray Respiratory Panel. It is FDA cleared and has been verified and approved by the [facility] Molecular [facility]ostics Laboratory for clinical use on nasopharyngeal swab specimens.The performance of the FilmArrayRP has not been established in individuals who received influenza vaccine. Recent administration ofa nasal influenza vaccine may cause false positive results for Influenza A and/orInfluenza B.Eosinophil [id number] 16:42:00 Test Item Value Reference Range Interpretation Comments Eosinophil Smear (test Rare EOS =less than No EOS seen A code = 03312-7) 5% WBCs seen are EOS Lab Interpretation (test Abnormal code = 06798-4) [facility]EOSINOPHIL SMEAR, [id number] 16:42:00 Test Item Value Reference Range Interpretation Comments EOSINOPHIL SMEAR, URINE Rare EOS =less than No EOS seen A (BEAKER) (test code = 5% WBCs seen are EOS 1851) CT, CHEST, WITHOUT [id number] 16:31:00FINAL REPORT CT Chest, abdomen, and pelvis [...] within the pelvic cul-de-sac, nonspecific. Signed: Mani Moreleport Ve rified Date/Time: 10/18/2018 16:31:25 Reading Location: [facility] Radiology Reading Room CT, [id number] 16:31:00Reason for exam:->hepatosplenomegalyFINAL REPORT CT Chest, abdomen, [...] the pelvic cul-de-sac, nonspecific. Signed: Mani Morel MDRalkaort Verified Date/Time: 10/18/2018 16:31:25 Reading Location: [facility] Radiology Reading Room CT abdomen/pelvis without iv [id number] 16:31:00Interface, External Ris In - 10/18/2018 4:[address] Chest, abdomen, and pelvis without [...] Technically limited study due to lack of oralor intravenous contrast.2. Trace bilateral pleural effusions, right greater than left.3. Previous cholecystectomy and hysterectomy.4. A small amount of free fluid is seen within the pelvic cul-de-sac, nonspecific. Signed: Mani Morel MDRlisa Verified Date/Time: 10/18/2018 16:31:25 Reading Location: [facility] Radiology Reading Room [facility]CT [facility] without IV contrast 2018-10-18 16:31:00Interface, External Ris In - 10/18/2018 4:[address] Chest, abdomen, and pelvis without [...] Technically limited study due to lack of oralor intravenous contrast.2. Trace bilateral pleural effusions, right greater than left.3. Previous cholecystectomy and hysterectomy.4. A small amount of free fluid is seen within the pelvic cul-de-sac, nonspecific. Signed: Mani Morel MDRepmissouri baptist hospital-[facility] Verified Date/Time: 10/18/2018 16:31:25 Reading Location: [facility] Radiology Reading Room [facility] W/PLT COUNT & AUTO [id number] 15:06:00 Test Item Value Reference Range Interpretation Comments WHITE BLOOD CELL COUNT 4.4 K/ L 3.5-10.5 This is a corrected (BEAKER) (test code = result . Previous 775) result was 4.2 K/ L on 10/18/2018 at 0657 CDT RED BLOOD CELL COUNT 2.92 M/ L 3.93-5.22 L This is a corrected (BEAKER) (test code = result . Previous 761) result was 2.88 M/ L on 10/18/2018 a t 0657 CDT HEMOGLOBIN (BEAKER) 8.3 GM/DL 11.2-15.7 L (test code = 410) HEMATOCRIT (BEAKER) 27.1 % 34.1-44.9 L This is a corrected (test code = 411) result. Pr evious result was 26.4 % on 10/18/2018 at 0657 CDT MEAN CORPUSCULAR VOLUME 92.8 fL 79.4-94.8 This is a corrected (BEAKER) (test code = result . Previous 753) result was 91.7 fL on 10/18/2018 at 0657 CDT MEAN CORPUSCULAR 28.4 pg 25.6-32.2 This is a c orrected HEMOGLOBIN (BEAKER) result. Previous (test code = 751) result was 28.8 pg on 10/18/2018 at 0657 CDT MEAN CORPUSCULAR 30.6 GM/DL 32.2-35.5 L This is a c orrected HEMOGLOBIN CONC result. Prev ious (BEAKER) (test code = result was 31.4 752) GM/DL on 10/19/19 19 at 0657 CDT RED CELL DISTRIBUTION 15.3 % 11.7-14.4 H This i s a corrected WIDTH (BEAKER) (test result. Previous code = 412) result was 15.1 % on 10/18/2018 at 0657 CDT PLATELET COUNT (BEAKER) 185 K/CU MM 150-450 This is a corrected (test code = 756) result. Pr evious result was 177 K/CU MM on 10/18/2018 at 0657 CDT MEAN PLATELET VOLUME 11.3 fL 9.4-12.3 This is a corrected (BEAKER) (test code = result . Previous 754) result was 11.1 fL on 10/18/2018 at 0657 CDT NUCLEATED RED BLOOD 2 /100 WBC 0-0 H This is a corrected CELLS (BEAKER) (test result. Previous code = 413) result was 1 /1 00 WBC on 10/18/2018 at 0657 CDT (CELLAVISION MANUAL DIFF)2018-10-18 15:04:00 Test Item Value Reference Range Interpretation Comments NEUTROPHILS - REL 74 % (CELLAVISION)(BEAKER) (test code = 2816) LYMPHOCYTES - REL 14 % (CELLAVISION)(BEAKER) (test code = 2817) MONOCYTES - REL 3 % (CELLAVISION)(BEAKER) (test code = 2818) EOSINOPHILS - REL 6 % (CELLAVISION)(BEAKER) (test code = 2819) MYELOCYTES - REL 3 % 0-0 H (CELLAVISION)(BEAKER) (test code = 2822) NEUTROPHILS - ABS 3.26 K/ul 1.56-6.13 (CELLAVISION)(BEAKER) (test code = 2830) LYMPHOCYTES - ABS 0.62 K/ul 1.18-3.74 L (CELLAVISION)(BEAKER) (test code = 2831) MONOCYTES - ABS 0.13 K/uL 0.24-0.36 L (CELLAVISION)(BEAKER) (test code = 2832) EOSINOPHILS - ABS 0.26 K/uL 0.04-0.36 (CELLAVISION)(BEAKER) (test code = 2834) MYELOCYTES-ABS 0.13 K/uL 0.00-0.00 H (CELLAVISION)(BEAKER) (test code = 2837) TOTAL COUNTED (BEAKER) (test code 100 = 1351) MANUAL NRBC PER 100 CELLS (BEAKER) 1 /100 WBC 0-0 H (test code = 1353) WBC MORPHOLOGY (BEAKER) (test code Normal = 487) CLUMPED PLATELETS (BEAKER) (test Present code = 436) GIANT PLATELETS (BEAKER) (test Present code = 313) POLYCHROMATOPHILLIC RBCS(BEAKER) 1+ few (test code = 478) ANISOCYTOSIS (BEAKER) (test code = 1+ few 961) MICROCYTES (BEAKER) (test code = 1+ few 965) ARTIFACT (CELLAVISION)(BEAKER) Present (test code = 3432) PLATELET CONCENTRATION Adequate (CELLAVISION)(BEAKER) (test code = 3438) Received comment: User comments: Slide comments:Rapid Influenza A&B Screen 2018-10-18 13:32:00 Test Item Value Reference Range Interpretation Comments Rapid Influenza A Antigen Negative Negative, Inconclusive (test code = 72419-3) Rapid influenza B Antigen Negative Negative, Inconclusive (test code = 79299-5) Lab Interpretation (test code Normal = 74851-1) [facility] CampusRAPID INFLUENZA A&B [id number] 13:32:00 Test Item Value Reference Range Interpretation Comments RAPID INFLUENZA A AG (BEAKER) Negative Negative, Inconclusive (test code = 1622) RAPID INFLUENZA B AG (BEAKER) Negative Negative, Inconclusive (test code = 1623) [id number] 13:19:00 Test Item Value Reference Range Interpretation Comments FERRITIN (BEAKER) (test code = 6230 ng/mL 5-275 H 361) HIV-1 Antigen with HIV-1/2 [id number] 12:57:00 Test Item Value Reference Range Interpretation Comments HIV-1 Antigen with HIV 1&2 Nonreactive Nonreactive Antibody (test code = 91640-0) Lab Interpretation (test code = Normal 51168-4) [facility] CampusHIV-1 ANTIGEN WITH HIV-1/2 [id number] 12:57:00 Test Item Value Reference Range Interpretation Comments HIV-1 ANTIGEN WITH HIV 1\\T\\2 Nonreactive Nonreactive ANTIBODY (2) (BEAKER) (test code = 2586) [id number] 12:53:00 Test Item Value Reference Range Interpretation Comments Haptoglobin (test code = 4542-7) 301 mg/dL 14-258 H Lab Interpretation (test code = Abnormal 33206-7) [facility] CampusHAPTOGLOBIN2019-07-03 12:53:00 Test Item Value Reference Range Interpretation Comments HAPTOGLOBIN (BEAKER) (test code = 301 mg/dL 14-258 H 366) [id number] 12:34:00 Test Item Value Reference Range Interpretation Comments D-Dimer, Quant (test code 13.12 <0.50 MG/L FEU H = 14575-3) RAFAEL (test code = RAFAEL) Intended Use: The D-Dimer Assay can be used to aid in the diagnosis of Deep Vein Thrombosis (DVT) and Pulmonary Embolism Disease (PED).In patients with low pre-test probability, various studies concerning STA Liatest D-dimer test have reported that with a cutoff value of 0.50 MG/L FEU, the Negative Predictive Value (NPV) regarding the exclusion of thrombosis is within 95-100% range. Lab Interpretation (test Abnormal code = 34639-3) [facility] CampusD-[id number] 12:34:00 Test Item Value Reference Range Interpretation Comments D-DIMER QUANTITATIVE (BEAKER) 13.12 MG/L FEU <0.50 H (test code = 671) Intended Use: The D-Dimer Assay can be used to aid in the diagnosis of Deep Vein Thrombosis (DVT) and Pulmonary Embolism Disease (PED).In patients with low pre- test probability, various studies concerning STA Liatest D-dimer test have reported that with a cutoff value of 0.50 MG/L FEU, the Negative Predictive Value (NPV) regarding the exclusion of thrombosis is within 95-100% range.Alpha fetoprotein (AFP), tumor [id number] 12:29:00 Test Item Value Reference Range Interpretation Comments Alpha-Fetoprotein (test code = 1834-1) <2.0 <10.0 ng/mL Lab Interpretation (test code = Normal 24248-2) [facility] CampusALPHA FETOPROTEIN (AFP), TUMOR [id number] 12:29:00 Test Item Value Reference Range Interpretation Comments ALPHA-FETOPROTEIN (BEAKER) (test code < ng/mL <10.0 = 1094) Urine [id number] 12:04:00 Test Item Value Reference Range Interpretation Comments Result (test code = 6463-4) No growth [facility] CampusTriglycerides2019-07-03 11:08:00 Test Item Value Reference Range Interpretation Comments Triglycerides (test 299 mg/dL code = 2571-8) RAFAEL (test code = RAFAEL) TRIGLYCERIDE REFERENCE RANGELow Risk <150Borderline Risk 150-199High Risk 200-499Very High Risk >=500 [facility] CampusTRIGLYCERIDES2019-07-03 11:08:00 Test Item Value Reference Range Interpretation Comments TRIGLYCERIDES (BEAKER) (test code = 299 mg/dL 540) TRIGLYCERIDE REFERENCE RANGELow Risk <150Borderline Risk 150-199High Risk 200-499Very High Risk>=500Reticulocyte [id number] 11:05:00 Test Item Value Reference Range Interpretation Comments % Retic (test code = 07447-4) 4.3 % 0.5-1.7 H Lab Interpretation (test code = Abnormal 99992-0) [facility] CampusPOCT-GLUCOSE [id number] 11:05:00 Test Item Value Reference Range Interpretation Comments POC-GLUCOSE METER 248 mg/dL 70-110 H TESTED AT [facility] [facility] (test code = MICHAEL Garcia [place] 1538) [address] RETICULOCYTE [id number] 11:05:00 Test Item Value Reference Range Interpretation Comments RETICULOCYTE COUNT PCT (AKER) (test 4.3 % 0.5-1.7 H code = 575) Iron, TIBC, % sat. (without ferritin)2018-10-18 10:12:00 Test Item Value Reference Range Interpretation Comments Iron (test code = 2498-4) 42.0 ug/dL 40-160 TIBC (test code = 2500-7) 264 ug/dL 250-450 Iron % Saturation (test code = 16 % 20-55 L 2502-3) Lab Interpretation (test code = Abnormal 66144-2) [facility] CampusIRON, TIBC, % SAT. (WITHOUT FERRITIN)2018-10-18 10:12:00 Test Item Value Reference Range Interpretation Comments IRON (BEAKER) (test code = 547) 42.0 ug/dL 40.0-160.0 TOTAL IRON BINDING CAPACITY 264 ug/dL 250-450 (BEAKER) (test code = 769) IRON % SATURATION (2) (BEAKER) 16 % 20-55 L (test code = 2590) POCT-GLUCOSE [id number] 08:55:00 Test Item Value Reference Range Interpretation Comments POC-GLUCOSE METER 198 mg/dL 70-110 H TESTED AT [facility] 67[address] (BEAKER) (test code = [facility] [place] 1538) [address] [id number] 06:57:00 Test Item Value Reference Range Interpretation Comments PHOSPHORUS (BEAKER) (test code = 4.5 mg/dL 2.3-4.7 604) [id number] 06:57:00 Test Item Value Reference Range Interpretation Comments MAGNESIUM (BEAKER) (test code = 1.7 mg/dL 1.6-2.6 627) HEPATIC FUNCTION [id number] 06:57:00 Test Item Value Reference Range Interpretation Comments TOTAL PROTEIN (BEAKER) (test code = 7.6 gm/dL 6.0-8.3 770) ALBUMIN (BEAKER) (test code = 1145) 3.4 g/dL 3.5-5.0 L BILIRUBIN TOTAL (BEAKER) (test code 0.5 mg/dL 0.2-1.2 = 377) BILIRUBIN DIRECT (BEAKER) (test 0.3 mg/dL 0.1-0.5 code = 706) ALKALINE PHOSPHATASE (BEAKER) (test 75 U/L 40-150 code = 346) AST (SGOT) (BEAKER) (test code = 273 U/L 5-34 H 353) ALT (SGPT) (BEAKER) (test code = 693 U/L 6-55 H 347) BASIC METABOLIC [id number] 06:57:00 Test Item Value Reference Range Interpretation Comments SODIUM (BEAKER) 135 meq/L 136-145 L (test code = 381) POTASSIUM (BEAKER) 3.9 meq/L 3.5-5.1 (test code = 379) CHLORIDE (BEAKER) 98 meq/L 98-107 (test code = 382) CO2 (BEAKER) (test 28 meq/L 22-29 code = 355) BLOOD UREA NITROGEN 64 mg/dL 7-21 H (BEAKER) (test code = 354) CREATININE (BEAKER) 3.19 mg/dL 0.57-1.25 H (test code = 358) GLUCOSE RANDOM 162 mg/dL 70-105 H (BEAKER) (test code = 652) CALCIUM (BEAKER) 9.1 mg/dL 8.4-10.2 (test code = 697) EGFR (BEAKER) (test 16 mL/min/1.73 ESTIMA GURVINDER GFR IS code = 1092) sq m NOT ACCURATE CREATININE CLEARANCE IN PREDICTING GLOMERULAR FILTRATION RATE . ESTIMATED GFR I S NOT APPLICABLE FOR DIALYSIS PATIEN TS. PROTHROMBIN [id number] 06:37:00 Test Item Value Reference Range Interpretation Comments PROTIME (BEAKER) (test code = 14.3 seconds 11.9-14.2 H 759) INR (BEAKER) (test code = 370) 1.2 <=5.9 Effective 09/13/2018: PT Reference Range ChangeNew: 11.9-14.2 Previous: 11.7- 14.7RECOMMENDED COUMADIN/WARFARIN INR THERAPY RANGESSTANDARD DOSE: 2.0-3.0 Includes: PROPHYLAXIS for venous thrombosis, systemic embolization; TREATMENT for venous thrombosis and/or pulmonary embolus.HIGH RISK: Target INR is2.5-3.5 for patients wiht mechanical heart valves.CALCIUM, [id number] 06:19:00 Test Item Value Reference Range Interpretation Comments CALCIUM IONIZED (OPAL) (test 1.09 mmol/L 1.12-1.27 L code = 698) PH, BLOOD (OPAL) (test code = 7.36 1810) POCT-GLUCOSE [id number] 21:54:00 Test Item Value Reference Range Interpretation Comments POC-GLUCOSE METER 281 mg/dL 70-110 H TESTED AT [facility] [address] ([facility]) (test code = MICHAEL Garcia [facility] 1538) [address] RAD, CHEST, 1 VIEW, NON [id number] 19:11:00Reason for exam:->SOBShould this be performed at the bedside?->YesFINAL REPORT Clinical History: SOB. Comparison Study: None Findings: The cardiac silhouette is enlarged. Pulmonary venous congestion is seen. The lungs are within normal limits. The pleural spaces are clear. There is no pneumothorax. No significant bony or soft tissue abnormalities are seen. Impression: Cardiomegaly with some pulmonary venous congestion. Signed: Neftaly Shepherd MDReport Verified Date/Time: 10/17/2018 19:11:02 Reading Location: [address] Consult Reading Room chest 1 view portable / [id number] 19:11:00Interface, External Ris In - 10/17/2018 7:13 PM CDTFINAL REPORT Clinical History: SOB. Comparison Study: None Findings: The cardiac silhouette is enlarged. Pulmonary venous congestion is seen. The lungs are within normal limits. The pleural spaces are clear. There is no pneumothorax. No significant bony or soft tissue abnormalities are seen. Impression: Cardiomegaly with some pulmonary venous congestion. Signed: Neftaly Shepherd MDReport Verified Date/Time: 10/17/2018 19:11:02 Reading Location: [facility] C013W Consult Reading Room [facility] CampusFERRITIN2019-07-02 17:36:00 Test Item Value Reference Range Interpretation Comments FERRITIN (BEAKER) (test code = 37531 ng/mL 5-275 H 361) LACTATE DEHYDROGENASE (LDH)2018-10-17 16:41:00 Test Item Value Reference Range Interpretation Comments LACTATE DEHYDROGENASE (BEAKER) (test 541 U/L 125-220 H code = 635) [id number] 16:37:00 Test Item Value Reference Range Interpretation Comments Fibrinogen (test code = 3255-7) 439 mg/dl 225-434 H Lab Interpretation (test code = Abnormal 85062-7) [facility] CampusFIBRINOGEN2019-07-02 16:37:00 Test Item Value Reference Range Interpretation Comments FIBRINOGEN LEVEL (BEAKER) (test 439 mg/dl 225-434 H code = 658) POCT-GLUCOSE [id number] 12:47:00 Test Item Value Reference Range Interpretation Comments POC-GLUCOSE METER 250 mg/dL 70-110 H TESTED AT [facility] [address] (BEAKER) (test code = MICHAEL [place] 1538) [address] 2D Echo W/Doppler(CW/PW/Color)2018-10-17 11:51:52Ejection FractionSLEH ECHO HEARTLAB MKCKESSON CPACSInterface, External Ris In - 10/17/2018 11:52 AM C DTTransthoracic Echocardiography Report (TTE) Demographics Patient Name EMILY BARBOUR Date ofStudy 10/16/2018 MIRI Gender Female Visit Number [id number] Race Unknown Room Number 1435 Number Date of 1970 Referring Rusty Moreno MD Physician Age 48 year(s) Packaging Coordinator Rachel Dwyer RDCS, RVT [employer] A[employer] Developer Karely Montalvo RDCS Interpreting Ann Marie Martinez MD Physician Procedure Type of Study TTE procedure:2DECHO W DOPPLER(CW/PW/COLOR) (Routine) Indications:Acute Chest Pain/ Suspected CAD.Clinical HistoryCHF, CKD, DM, HTNHGB 7.2HCT 22.7 %Contrast Medium: Definity. Amount - 2 mlHeight:65 inches Weight: 95.25 kg (210 lbs) BSA: 2.02 m^2 BMI: 34.95 kg/m^2HR: 84 bpm BP: 166/76 mmHg Summary 1. The left ventricle is chamber size (by vol index) is normal (female - LVED vol - 29- 61ml/m2). No evidence of LV hypertrophy. LV endocardium [...] Left Atrium LA size is normal . Jack incompletely visualized, size based on linear measurement. Right Ventricle The right ventricular chamber size and systolic function are within normal limits. S' 12 cm/sec. Right Atrium RA size is normal. Aortic Valve NormalAoV structure and function. No evidence of aortic [...] is normal . The inferior vena cava isadequately visualized. Chambers/Structures Left Ventricle LVIDd: 4.58 cm [...] 178.9 msec MV Garcia. Peak: Tissue Doppler E'Lateral Velocity: 0.12 m/s Aortic Valve Peak Velocity: [...] LVOT CO: 8.01 l/min LVOT CI: 3.97 l/min/m^2[facility] HospitalP[facility] PER[facility] IMAG[facility], PARTIC, [id number] 10:48:00FINAL REPORT PROCEDURE: V/Q LUNG SCAN CPT CODE: 80972 INDICATION: Acute chest pain pulmonary origin PROTOCOL: [...] of a fatty liver. Signed: Quique Miranda MDReport Verified Date/Time: 10/17/2018 10:48:21 Reading Location: [address] Reading Room NM lung scan (V/Q)2018-10-17 10:48:00Interface, External Ris In - 10/17/2018 10:50 AM CDTFINAL REPORT PROCEDURE: V/Q LUNG SCAN CPT CODE: 11208 INDICATION: Acute chest pain pulmonary origin PROTOCOL: [...] of a fatty liver. Signed: Quique Miranda MDReport Verified Date/Time: 10/17/2018 10:48:21 Reading Location: [address] Reading [facility], PELVIC, [id number] 10:02:00Reason for exam:->AKIFINAL REPORT Abdominal and pelvic ultrasound dated 10/17/2018 Clinical informat ion: elevated transaminases Comment: Real-time transabdominal ultrasound was [...] Ayoub MDReport Verified Date/Time:10/17/2018 10:02:56 Reading Location: [address] Radiology Reading Room U/S, ABDOMINAL, WITH DOPPLER 2018-10-17 10:02:00Reason for exam:->elevated transaminasesFINAL REPORT Abdominal and [...] the abdomen. Signed: Leobardo Ayoub MDReport Verified Date/Time: 10/17/2018 10:02:56 Reading Location: [address] Radiology Reading Room US pelvis [id number] 10:02:00Interface, External Ris In - 10/17/2018 10:05 AM CDTFINAL REPORT Abdominal and pelvic ultrasound dated 10/17/2018 Clinical information: elevated transaminases Comment: Real-time t ransabdominal ultrasound was performed. Liver is enlarged and measures 21.9 cm in length. The echogenicity of the liver is normal. No focal lesion is noted in the liver. Spleen is enlarged measuring 15.1 cm. Gallbladder is surgically absent. No biliary dilatation is seen. Common bile duct measures 4mm in diameter. Main portal vein measures 13 mm in diameter. Pancreas is suboptimally visualized. Right kidney measures 11.8 x 4.1 x 5.5 cm. Left kidney measures 12.0 x 4.9 x 4.6 cm. Echogenicity ofboth kidney is increased. No hydronephrosis or solid [...] Impression: 1. Hepatosplenomegaly.2. Suboptimal visualization of the pancreas secondary to overlying gas.3. Echogenic kidneys suggestive of medical renal disease.4. Unremarkable pelvic ultrasound.5. Normal Doppler of the abdomen. Signed: Leobardo Ayoub Verified Date/Time: 10/17/2018 10:02:56 Reading Location: [address] Radiology Reading Room [facility] CenterUS abdominal with [id number] 10:02:00Interface, External Ris In - 10/17/2018 10:05 AM CDTFINAL REPORT Abdominal and pelvic ultrasound dated 10/17/2018 Clinical information: elevated transaminases Comment: Real-time t ransabdominal ultrasound was performed. Liver is enlarged and measures 21.9 cm in length. The echogenicity of the liver is normal. No focal lesion is noted in the liver. Spleen is enlarged measuring 15.1 cm. Gallbladder is surgically absent. No biliary dilatation is seen. Common bile duct measures 4mm in diameter. Main portal vein measures 13 mm in diameter. Pancreas is suboptimally visualized. Right kidney measures 11.8 x 4.1 x 5.5 cm. Left kidney measures 12.0 x 4.9 x 4.6 cm. Echogenicity ofboth kidney is increased. No hydronephrosis or solid [...] Impression: 1. Hepatosplenomegaly.2. Suboptimal visualization of the pancreas secondary to overlying gas.3. Echogenic kidneys suggestive of medical renal disease.4. Unremarkable pelvic ultrasound.5. Normal Doppler of the abdomen. Signed: Leobardo Ayoub MDReport Verified Date/Time: 10/17/2018 10:02:56 Reading Location: [address] Radiology Reading Room [facility] CenterABORH, [id number] 09:55:00 Test Item Value Reference Range Interpretation Comments ABO Grouping (test code = 883-9) Rh Factor (test code = 23750-9) ABO Grouping (test code = 2588) A Rh Factor (test code = 2589) POS [facility] CampusType and screen, [id number] 09:19:00 Test Item Value Reference Range Interpretation Comments ABO/RH AUTOMATED (BEAKER) (test A POSITIVE code = 2260) Ab Scrn (test code = 890-4) NEGATIVE [facility] CampusVitamin B12 and [id number] 08:37:00 Test Item Value Reference Range Interpretation Comments Vitamin B12 (test code = 2132-9) >2000 213-816 H Folate (test code = 2284-8) 13.3 ng/mL >=7.0 Lab Interpretation (test code = Abnormal 28894-9) [facility] CampusVITAMIN B12 AND [id number] 08:37:00 Test Item Value Reference Range Interpretation Comments VITAMIN B12 (BEAKER) (test code = > pg/mL 213-816 H 774) FOLATE (BEAKER) (test code = 362) 13.3 ng/mL >=7.0 POCT-GLUCOSE [id number] 08:32:00 Test Item Value Reference Range Interpretation Comments POC-GLUCOSE METER 168 mg/dL 70-110 H TESTED AT [facility] [address] (BEAKER) (test code = MICHAEL [place] 1538) [address] [id number] 08:03:00 Test Item Value Reference Range Interpretation Comments FERRITIN (BEAKER) (test code = 41451 ng/mL 5-275 H 361) Venous doppler legs [id number] 07:04:53Ejection FractionSLEH ECHO HEARTLAB MKCKESSON CPACSRight Impression1. There is no deep venous obstruction in the common femoral, profundafemoral, femoral, popliteal, posterior tibial or peroneal veins.2. There is no superficial venous obstruction in the great saphenous vein.Left Impression1. There is no deep venous obstruction in the common femoral, profundafemoral, femoral, popliteal, posterior tibial or peroneal veins.2. There is no superficial venous obstruction in the great saphenous vein. Conclusions Summary Venous duplex imaging and compression of the bilateral lower extremities were performed. The veins were adequately visualized. The bilateral venous systems were patent and compressiblewith no evidence of thrombus. Signature ------- Velocities are measured in cm/s ; Diameters are measured in cm Interface, External Ris In - 10/17/2018 7:05 AM CDTPV LAB - Lower Extremities DVT Study Demographics Patient Name EMILY BARBOUR Date of Study 10/16/2018 MIRI Age 48 Visit Number [id number] Gender Female Accession Number [id number] Date of Birth1970 Referring Rusty Moreno MD Room Number 1435 Physician Packaging Coordinator Kaveh Figueroa Interpreting Virginie Washington MD [facility] ProcedureType of Study: Veins: Lower Extremities DVT Study, VENOUS DOPPLER LEG, BILATERAL. Indications for Study:Rule out DVT.Patient Status:Routine.Study Location:Portable.Technical Quality:Adequate visualization.Risk FactorsHistory of Disease+ +----+ +!Diagnosis !Date!Comments !+ +----+ +!Hist ory/Risk Factors: ! !Obesity, CKD, HTN, CHF,DM !+ +----+ +ImpressionsRight Impression1. There is no deep venous obstruction in the common femoral, profundafemoral, femoral, popliteal, posterior tibial or peroneal veins.2. There is no superficial venous obstruction in the great saphenous vein.Left Impression1. There is no deep venous o bstruction in the common femoral, profundafemoral, femoral, popliteal, posterior tibial or peroneal veins.2. There is no superficial venous obstruction in the great saphenous vein. Conclusions Summary Venous duplex imaging and compression of the bilateral lower extremities were performed. The veins were adequately visualized. The bilateral venous systems were patent and compressible with no evidence of thrombus. Signature Velocities are measured in cm/s ; Diameters are measured in [facility] HospitalEC 12 [id number] 07:03:30Interface, External Ris In - 10/17/2018 7:03 AM CDTVentricular Rate 85 BPMAtrial Rate 85 BPMP-R Interval 164 msQRS Duration 156 msQ-T Interval 428 msQTC Calculation(Frankie) 509 msP Wilmot 50 degreesR Wilmot -71 degreesT Wilmot 35 degreesNormal sinus rhythmRight bundle branch blockLeft anterior fascicular block Bifascicular block Cannot exclude old anterolateral infarctNonspecific T wave abnormalityProlonged QTAbnormal ECGNo previous ECGs availableConfirmed by MD LEXY, MARY ([id number]) on 10/17/2018 7: 03:25 [facility] CenterLipid [id number] 06:15:00 Test Item Value Reference Range Interpretation Comments Triglycerides (test 223 mg/dL code = 2571-8) Cholesterol (test code 119 mg/dL = 2093-3) HDL (test code = 30 mg/dL 2085-9) LDL Calculated (test 44 mg/dL code = 15273-6) RAFAEL (test code = RAFAEL) Triglyceride Reference Range: Low Risk <150 Borderline 150-199 High Risk 200-499 Very High Risk >=500 Cholesterol Reference Range: Low Risk <200 Borderline 200-239 High Risk >240 HDL Cholesterol Reference Range: Low Risk >=60 High Risk <40 LDL Cholesterol Reference Range: Optimal <100 Near Optimal 100-129 Borderline 130-159 High 160-189 Very High >=190 [facility] CampusComplement Component [id number] 06:15:00 Test Item Value Reference Range Interpretation Comments C4 Complement (test code = 88308-9) 28 mg/dL 15-57 Lab Interpretation (test code = Normal 05899-8) [facility] CampusComplement Component [id number] 06:15:00 Test Item Value Reference Range Interpretation Comments C3 Complement (test code = 4487-5) 106 mg/dL 82-193 Lab Interpretation (test code = Normal 05500-7) [facility] CampusURIC [id number] 06:15:00 Test Item Value Reference Range Interpretation Comments URIC ACID (BEAKER) (test code = 13.2 mg/dL 2.6-7.2 H 773) [id number] 06:15:00 Test Item Value Reference Range Interpretation Comments MAGNESIUM (BEAKER) (test code = 1.8 mg/dL 1.6-2.6 627) LIPID [id number] 06:15:00 Test Item Value Reference Range Interpretation Comments TRIGLYCERIDES (BEAKER) (test code = 223 mg/dL 540) CHOLESTEROL (BEAKER) (test code = 119 mg/dL 631) HDL CHOLESTEROL (BEAKER) (test code 30 mg/dL = 976) LDL CHOLESTEROL CALCULATED (BEAKER) 44 mg/dL (test code = 633) Triglyceride Reference Range: Low Risk <150 Borderline 150-199 High Risk 200-499 Very High Risk >=500Cholesterol Reference Range: Low Risk <200 Borderline 200-239 High Risk >240HDL Cholesterol Reference Range: Low Risk >=60 High Risk <40LDL Cholesterol Reference Range: Optimal <100 Near Optimal 100-129 Borderline 130-159 High 160-189 Very High >=190HEPATIC FUNCTION [id number] 06:15:00 Test Item Value Reference Range Interpretation Comments TOTAL PROTEIN (BEAKER) (test code = 7.9 gm/dL 6.0-8.3 770) ALBUMIN (BEAKER) (test code = 1145) 3.7 g/dL 3.5-5.0 BILIRUBIN TOTAL (BEAKER) (test code 0.5 mg/dL 0.2-1.2 = 377) BILIRUBIN DIRECT (BEAKER) (test 0.3 mg/dL 0.1-0.5 code = 706) ALKALINE PHOSPHATASE (BEAKER) (test 83 U/L 40-150 code = 346) AST (SGOT) (BEAKER) (test code = 747 U/L 5-34 H 353) ALT (SGPT) (BEAKER) (test code = 1009 U/L 6-55 H 347) COMPLEMENT COMPONENT [id number] 06:15:00 Test Item Value Reference Range Interpretation Comments C4 COMPLEMENT (BEAKER) (test code = 28 mg/dL 15-57 394) COMPLEMENT COMPONENT [id number] 06:15:00 Test Item Value Reference Range Interpretation Comments C3 COMPLEMENT (BEAKER) (test code = 106 mg/dL 82-193 393) IRON, TIBC, % SAT. (WITHOUT FERRITIN)2018-10-17 06:15:00 Test Item Value Reference Range Interpretation Comments IRON (BEAKER) (test code = 547) 39.0 ug/dL 40.0-160.0 L TOTAL IRON BINDING CAPACITY 265 ug/dL 250-450 (BEAKER) (test code = 769) IRON % SATURATION (2) (BEAKER) 15 % 20-55 L (test code = 2590) BASIC METABOLIC [id number] 06:15:00 Test Item Value Reference Range Interpretation Comments SODIUM (BEAKER) 134 meq/L 136-145 L (test code = 381) POTASSIUM (BEAKER) 4.2 meq/L 3.5-5.1 (test code = 379) CHLORIDE (BEAKER) 100 meq/L 98-107 (test code = 382) CO2 (BEAKER) (test 26 meq/L 22-29 code = 355) BLOOD UREA NITROGEN 64 mg/dL 7-21 H (BEAKER) (test code = 354) CREATININE (BEAKER) 3.66 mg/dL 0.57-1.25 H (test code = 358) GLUCOSE RANDOM 123 mg/dL 70-105 H (BEAKER) (test code = 652) CALCIUM (BEAKER) 8.9 mg/dL 8.4-10.2 (test code = 697) EGFR (BEAKER) (test 13 mL/min/1.73 ESTIMA GURVINDER GFR IS code = 1092) sq m NOT ACCURATE CREATININE CLEARANCE IN PREDICTING GLOMERULAR FILTRATION RATE . ESTIMATED GFR I S NOT APPLICABLE FOR DIALYSIS PATIEN TS. PROTHROMBIN TIME/[id number] 05:57:00 Test Item Value Reference Range Interpretation Comments PROTIME (BEAKER) (test code = 16.0 seconds 11.9-14.2 H 759) INR (BEAKER) (test code = 370) 1.4 <=5.9 Effective 09/13/2018: PT Reference Range ChangeNew: 11.9-14.2 Previous: 11.7- 14.7RECOMMENDED COUMADIN/WARFARIN INR THERAPY RANGESSTANDARD DOSE: 2.0-3.0 Includes: PROPHYLAXIS for venous thrombosis, systemic embolization; TREATMENT for venous thrombosis and/or pulmonary embolus.HIGH RISK: Target INR is2.5-3.5 for patients wiht mechanical heart valves.CBC W/PLT COUNT & AUTO [id number] 05:55:00 Test Item Value Reference Range Interpretation Comments WHITE BLOOD CELL COUNT (BEAKER) 4.4 K/ L 3.5-10.5 (test code = 775) RED BLOOD CELL COUNT (BEAKER) 2.40 M/ L 3.93-5.22 L (test code = 761) HEMOGLOBIN (BEAKER) (test code = 6.8 GM/DL 11.2-15.7 L 410) HEMATOCRIT (BEAKER) (test code = 22.6 % 34.1-44.9 L 411) MEAN CORPUSCULAR VOLUME (BEAKER) 94.2 fL 79.4-94.8 (test code = 753) MEAN CORPUSCULAR HEMOGLOBIN 28.3 pg 25.6-32.2 (BEAKER) (test code = 751) MEAN CORPUSCULAR HEMOGLOBIN CONC 30.1 GM/DL 32.2-35.5 L (BEAKER) (test code = 752) RED CELL DISTRIBUTION WIDTH 15.4 % 11.7-14.4 H (BEAKER) (test code = 412) PLATELET COUNT (BEAKER) (test 172 K/CU MM 150-450 code = 756) MEAN PLATELET VOLUME (BEAKER) 11.6 fL 9.4-12.3 (test code = 754) NUCLEATED RED BLOOD CELLS 1 /100 WBC 0-0 H (BEAKER) (test code = 413) NEUTROPHILS RELATIVE PERCENT 73 % (BEAKER) (test code = 429) LYMPHOCYTES RELATIVE PERCENT 13 % (BEAKER) (test code = 430) MONOCYTES RELATIVE PERCENT 5 % (BEAKER) (test code = 431) EOSINOPHILS RELATIVE PERCENT 3 % (BEAKER) (test code = 432) BASOPHILS RELATIVE PERCENT 1 % (BEAKER) (test code = 437) NEUTROPHILS ABSOLUTE COUNT 3.18 K/ L 1.56-6.13 (BEAKER) (test code = 670) LYMPHOCYTES ABSOLUTE COUNT 0.56 K/ L 1.18-3.74 L (BEAKER) (test code = 414) MONOCYTES ABSOLUTE COUNT (BEAKER) 0.23 K/ L 0.24-0.36 L (test code = 415) EOSINOPHILS ABSOLUTE COUNT 0.14 K/ L 0.04-0.36 (BEAKER) (test code = 416) BASOPHILS ABSOLUTE COUNT (BEAKER) 0.03 K/ L 0.01-0.08 (test code = 417) IMMATURE GRANULOCYTES-RELATIVE 5 % 0-1 H PERCENT (BEAKER) (test code = 2801) Troponin [id number] 01:09:00 Test Item Value Reference Range Interpretation Comments Troponin I (test code = 0.03 ng/mL 0-0.03 01343-5) RAFAEL (test code = RAFAEL) Troponin I (TnI) levels must be interpreted [...] acidosis, acute neurological disease, and persistent tachyarrhythmia. Lab Interpretation (test Normal code = 35516-5) [facility] CampusTROPONIN [id number] 01:09:00 Test Item Value Reference Range Interpretation Comments TROPONIN I (BEAKER) (test code = 0.03 ng/mL 0.00-0.03 397) Troponin I (TnI) levels must be interpreted [...] failure, acidosis, acute neurological disease, and persistent tachyarrhythmia.Osmolality, [id number] 22:24:00 Test Item Value Reference Range Interpretation Comments Osmolality, Ur (test code = 2695-5) 317 40-1,400 mOsm/kg Lab Interpretation (test code = Normal 95684-7) [facility] CampusOSMOLALITY, [id number] 22:24:00 Test Item Value Reference Range Interpretation Comments OSMOLALITY URINE (BEAKER) (test 317 mOsm/kg 40-1,400 code = 614) Hemoglobin [id number] 22:20:00 Test Item Value Reference Range Interpretation Comments Hemoglobin A1C (test code = 4548-4) 7.2 % 4.3-6.1 H Lab Interpretation (test code = Abnormal 62877-1) [facility] CampusHEMOGLOBIN [id number] 22:20:00 Test Item Value Reference Range Interpretation Comments HEMOGLOBIN A1C (BEAKER) (test code = 7.2 % 4.3-6.1 H 368) Urinalysis w/[id number] 22:19:00 Test Item Value Reference Range Interpretation Comments Color, UA (test code = 5778-6) Light Yellow Clarity, UA (test code = 5767-9) Clear Specific [place], UA (test code 1.006 1.001-1.035 = 5811-5) pH, UA (test code = 5803-2) 5.5 5.0-8.0 Protein, UA (test code = 30 mg/dL Negative A 70721-2) Glucose, UA (test code = 365) Negative Negative Ketones, UA (test code = 2514-8) Negative Negative Bilirubin, UA (test code = Negative Negative 04487-7) Blood, UA (test code = 66938-9) Negative Negative Nitrite, UA (test code = 5802-4) Negative Negative Leukocytes, UA (test code = Negative Negative 5799-2) Urobilinogen, UA (test code = 0.2 mg/dL 0.2-1 66633-2) RBC, UA (test code = 14679-1) <1 /HPF WBC, UA (test code = 5821-4) 3 /HPF Mucus (test code = 8247-9) Rare Squam Epithel, UA (test code = <1 /HPF 18326-5) Specimen Source (test code = 2795) Lab Interpretation (test code = Abnormal 39507-2) [facility]URINALYSIS W/ [id number] 22:19:00 Test Item Value Reference Range Interpretation Comments COLOR (BEAKER) (test code = 470) Light Yellow CLARITY (BEAKER) (test code = Clear 469) SPECIFIC GRAVITY UA (BEAKER) 1.006 1.001-1.035 (test code = 468) PH UA (BEAKER) (test code = 467) 5.5 5.0-8.0 PROTEIN UA (BEAKER) (test code = 30 mg/dL Negative A 464) GLUCOSE UA (BEAKER) (test code = Negative Negative 365) KETONES UA (BEAKER) (test code = Negative Negative 371) BILIRUBIN UA (BEAKER) (test code Negative Negative = 462) BLOOD UA (BEAKER) (test code = Negative Negative 461) NITRITE UA (BEAKER) (test code = Negative Negative 465) LEUKOCYTE ESTERASE UA (BEAKER) Negative Negative (test code = 466) UROBILINOGEN UA (BEAKER) (test 0.2 mg/dL 0.2-1.0 code = 463) RBC UA (BEAKER) (test code = < /HPF 519) WBC UA (BEAKER) (test code = 3 /HPF 520) MUCUS (BEAKER) (test code = Rare 1574) SQUAMOUS EPITHELIAL (BEAKER) < /HPF (test code = 516) SOURCE(BEAKER) (test code = 2795) POCT-GLUCOSE [id number] 22:09:00 Test Item Value Reference Range Interpretation Comments POC-GLUCOSE METER 171 mg/dL 70-110 H TESTED AT [facility] 6720 (BEAKER) (test code = MICHAEL Garcia [place] 1538) [address] Protein, random [id number] 21:36:00 Test Item Value Reference Range Interpretation Comments Protein, Urine (test code = 2888-6) 44 mg/dL 0-14 H Lab Interpretation (test code = Abnormal 60186-4) [facility] CampusPROTEIN, RANDOM [id number] 21:36:00 Test Item Value Reference Range Interpretation Comments PROTEIN, URINE (BEAKER) (test code = 44 mg/dL 0-14 H 1569) Chloride, random [id number] 21:30:00 Test Item Value Reference Range Interpretation Comments ChlorideUr (test code = 96 meq/L 79927-1) RAFAEL (test code = RAFAEL) Reference Range: No Normals [facility] CampusCHLORIDE, RANDOM [id number] 21:30:00 Test Item Value Reference Range Interpretation Comments CHLORIDE URINE (BEAKER) (test code = 96 meq/L 682) Reference Range: No NormalsCreatinine, random [id number] 21:09:00 Test Item Value Reference Range Interpretation Comments Creatinine, Ur (test 30.6 mg/dL code = 2161-8) RAFAEL (test code = Reference Range: No RAFAEL) Normals [facility] [id number] 21:09:00 Test Item Value Reference Range Interpretation Comments Sodium Urine (test 90 meq/L code = 2955-3) RAFAEL (test code = RAFAEL) Reference Range: No Normals [facility] CampusUrea Nitrogen, random [id number] 21:09:00 Test Item Value Reference Range Interpretation Comments Urea Nitrogen, Ur 232 mg/dL (test code = 3095-7) RAFAEL (test code = Reference Range: No RAFAEL) Normals [facility] CampusCREATININE, RANDOM [id number] 21:09:00 Test Item Value Reference Range Interpretation Comments CREATININE URINE (BEAKER) (test 30.6 mg/dL code = 375) Reference Range: No NormalsSODIUM, RANDOM [id number] 21:09:00 Test Item Value Reference Range Interpretation Comments SODIUM URINE (BEAKER) (test code = 90 meq/L 243) Reference Range: No NormalsUREA NITROGEN, RANDOM [id number] 21:09:00 Test Item Value Reference Range Interpretation Comments UREA NITROGEN URINE (BEAKER) (test 232 mg/dL code = 538) Reference Range: No NormalsHepatitis panel, [id number] 20:39:00 Test Item Value Reference Range Interpretation Comments Hep A IgM (test code = 99465-8) Nonreactive Nonreactive Hep B C IgM (test code = 83870-8) Nonreactive Nonreactive Hepatitis C Ab (test code = Nonreactive Nonreactive 49606-2) HBsAg Screen (test code = 5195-3) Nonreactive Nonreactive Lab Interpretation (test code = Normal 41427-4) [facility] CampusHEPATITIS PANEL, [id number] 20:39:00 Test Item Value Reference Range Interpretation Comments HEPATITIS A IGM ANTIBODY (BEAKER) Nonreactive Nonreactive (test code = 498) HEPATITIS B CORE IGM ANTIBODY Nonreactive Nonreactive (BEAKER) (test code = 645) HEPATITIS C ANTIBODY (BEAKER) Nonreactive Nonreactive (test code = 367) HEPATITIS B SURFACE ANTIGEN (2) Nonreactive Nonreactive (BEAKER) (test code = 2585) Urinalysis w/Microscopic + Reflex to [id number] 20:12:00 Test Item Value Reference Range Interpretation Comments Color, UA (test code = 5778-6) Light Yellow Clarity, UA (test code = 5767-9) Hazy Specific [place], UA (test code 1.006 1.001-1.035 = 5811-5) pH, UA (test code = 5803-2) 5.5 5.0-8.0 Protein, UA (test code = 30 mg/dL Negative A 71104-6) Glucose, UA (test code = 365) Negative Negative Ketones, UA (test code = 2514-8) Negative Negative Bilirubin, UA (test code = Negative Negative 07524-3) Blood, UA (test code = 41389-3) Negative Negative Nitrite, UA (test code = 5802-4) Negative Negative Leukocytes, UA (test code = Trace Negative A 5799-2) Urobilinogen, UA (test code = 0.2 mg/dL 0.2-1 24360-0) RBC, UA (test code = 91558-6) <1 /HPF WBC, UA (test code = 5821-4) 10 /HPF Bacteria, UA (test code = Rare 75672-5) Mucus (test code = 8247-9) Rare Squam Epithel, UA (test code = 5 /HPF 34577-4) Amorphous Crystals (test code = Rare 73193-7) Specimen Source (test code = 2795) Lab Interpretation (test code = Abnormal 13649-5) [facility] CampusURINALYSIS W/ REFLEX URINE [id number] 20:12:00 Test Item Value Reference Range Interpretation Comments COLOR (BEAKER) (test code = 470) Light Yellow CLARITY (BEAKER) (test code = Hazy 469) SPECIFIC GRAVITY UA (BEAKER) 1.006 1.001-1.035 (test code = 468) PH UA (BEAKER) (test code = 467) 5.5 5.0-8.0 PROTEIN UA (BEAKER) (test code = 30 mg/dL Negative A 464) GLUCOSE UA (BEAKER) (test code = Negative Negative 365) KETONES UA (BEAKER) (test code = Negative Negative 371) BILIRUBIN UA (BEAKER) (test code Negative Negative = 462) BLOOD UA (BEAKER) (test code = Negative Negative 461) NITRITE UA (BEAKER) (test code = Negative Negative 465) LEUKOCYTE ESTERASE UA (BEAKER) Trace Negative A (test code = 466) UROBILINOGEN UA (BEAKER) (test 0.2 mg/dL 0.2-1.0 code = 463) RBC UA (BEAKER) (test code = < /HPF 519) WBC UA (BEAKER) (test code = 10 /HPF 520) BACTERIA (BEAKER) (test code = Rare 517) MUCUS (BEAKER) (test code = Rare 1574) SQUAMOUS EPITHELIAL (BEAKER) 5 /HPF (test code = 516) AMORPHOUS CRYSTALS (BEAKER) Rare (test code = 1584) SOURCE(BEAKER) (test code = 2795) TROPONIN [id number] 19:15:00 Test Item Value Reference Range Interpretation Comments TROPONIN I (BEAKER) (test code = 0.03 ng/mL 0.00-0.03 397) Troponin I (TnI) levels must be interpreted [...] acute neurological disease, and persistent tachyarrhythmia.COMPREHENSIVE METABOLIC [id number] 19:15:00 Test Item Value Reference Range Interpretation Comments TOTAL PROTEIN 7.9 gm/dL 6.0-8.3 (BEAKER) (test code = 770) ALBUMIN (BEAKER) 3.7 g/dL 3.5-5.0 (test code = 1145) ALKALINE PHOSPHATASE 89 U/L 40-150 (BEAKER) (test code = 346) BILIRUBIN TOTAL 0.6 mg/dL 0.2-1.2 (BEAKER) (test code = 377) SODIUM (BEAKER) (test 133 meq/L 136-145 L code = 381) POTASSIUM (BEAKER) 4.6 meq/L 3.5-5.1 (test code = 379) CHLORIDE (BEAKER) 102 meq/L 98-107 (test code = 382) CO2 (BEAKER) (test 21 meq/L 22-29 L code = 355) BLOOD UREA NITROGEN 63 mg/dL 7-21 H (BEAKER) (test code = 354) CREATININE (BEAKER) 3.74 mg/dL 0.57-1.25 H (test code = 358) GLUCOSE RANDOM 117 mg/dL 70-105 H (BEAKER) (test code = 652) CALCIUM (BEAKER) 8.6 mg/dL 8.4-10.2 (test code = 697) AST (SGOT) (BEAKER) 1805 U/L 5-34 H (test code = 353) ALT (SGPT) (BEAKER) 1232 U/L 6-55 H (test code = 347) EGFR (BEAKER) (test 13 mL/min/1.73 ESTIMA GURVINDER GFR IS code = 1092) sq m NOT ACCURATE CREATININE CLEARANCE IN PREDICTING GLOMERULAR FILTRATION RATE . ESTIMATED GFR I S NOT APPLICABLE FOR DIALYSIS PATIEN TS. Creatine Kinase (CK)2018-10-16 19:13:00 Test Item Value Reference Range Interpretation Comments Total CK (test code = 2157-6) 439 U/L 29-200 H Lab Interpretation (test code = Abnormal 61169-4) [facility] CampusCREATINE KINASE (CK)2018-10-16 19:13:00 Test Item Value Reference Range Interpretation Comments CREATINE KINASE TOTAL (BEAKER) (test 439 U/L 29-200 H code = 380) Salicylate [id number] 19:11:00 Test Item Value Reference Range Interpretation Comments Salicylate Lvl (test <5.0 15-30 L code = 4024-6) RAFAEL (test code = RAFAEL) Therapeutic Range: 15.0-30.0 mg/dLToxic: >30.0 mg/dL Lethal: >70.0 mg/dL Lab Interpretation (test Abnormal code = 04952-6) [facility]ALIC[facility] [id number] 19:11:00 Test Item Value Reference Range Interpretation Comments SALICYLATE LEVEL (BEAKER) (test code < mg/dL 15.0-30.0 L = 764) Therapeutic Range: 15.0-30.0 mg/dLToxic: >30.0 mg/dL [place]: >70.0 mg/dLAcetaminophen [id number] 19:10:00 Test Item Value Reference Range Interpretation Comments Acetaminophen Level <5.7 10-30 L (test code = 3298-7) RAFAEL (test code = RAFAEL) Therapeutic Range: 10.0-30.0 g/mLToxic Levels: >200.0 g/mL Lab Interpretation (test Abnormal code = 30294-4) [facility] CampusACETAMINOPHEN [id number] 19:10:00 Test Item Value Reference Range Interpretation Comments ACETAMINOPHEN LEVEL (BEAKER) (test < ug/mL 10.0-30.0 L code = 344) Therapeutic Range: 10.0-30.0 g/mLToxic Levels: >200.0 g/mLPROTHROMBIN TIME/[id number] 18:59:00 Test Item Value Reference Range Interpretation Comments PROTIME (BEAKER) (test code = 16.7 seconds 11.9-14.2 H 759) INR (BEAKER) (test code = 370) 1.4 <=5.9 Effective 09/13/2018: PT Reference Range ChangeNew: 11.9-14.2 Previous: 11.7- 14.7RECOMMENDED COUMADIN/WARFARIN INR THERAPY RANGESSTANDARD DOSE: 2.0-3.0 Includes: PROPHYLAXIS for venous thrombosis, systemic embolization; TREATMENT for venous thrombosis and/or pulmonary embolus.HIGH RISK: Target INR is2.5-3.5 for patients wiht mechanical heart valves.CBC W/PLT COUNT & AUTO [id number] 18:52:00 Test Item Value Reference Range Interpretation Comments WHITE BLOOD CELL COUNT (BEAKER) 4.9 K/ L 3.5-10.5 (test code = 775) RED BLOOD CELL COUNT (BEAKER) 2.42 M/ L 3.93-5.22 L (test code = 761) HEMOGLOBIN (BEAKER) (test code = 7.2 GM/DL 11.2-15.7 L 410) HEMATOCRIT (BEAKER) (test code = 22.7 % 34.1-44.9 L 411) MEAN CORPUSCULAR VOLUME (BEAKER) 93.8 fL 79.4-94.8 (test code = 753) MEAN CORPUSCULAR HEMOGLOBIN 29.8 pg 25.6-32.2 (BEAKER) (test code = 751) MEAN CORPUSCULAR HEMOGLOBIN CONC 31.7 GM/DL 32.2-35.5 L (BEAKER) (test code = 752) RED CELL DISTRIBUTION WIDTH 15.3 % 11.7-14.4 H (BEAKER) (test code = 412) PLATELET COUNT (BEAKER) (test 166 K/CU MM 150-450 code = 756) MEAN PLATELET VOLUME (BEAKER) 11.6 fL 9.4-12.3 (test code = 754) NUCLEATED RED BLOOD CELLS 2 /100 WBC 0-0 H (BEAKER) (test code = 413) NEUTROPHILS RELATIVE PERCENT 83 % (BEAKER) (test code = 429) LYMPHOCYTES RELATIVE PERCENT 6 % (BEAKER) (test code = 430) MONOCYTES RELATIVE PERCENT 5 % (BEAKER) (test code = 431) EOSINOPHILS RELATIVE PERCENT 2 % (BEAKER) (test code = 432) BASOPHILS RELATIVE PERCENT 0 % (BEAKER) (test code = 437) NEUTROPHILS ABSOLUTE COUNT 4.02 K/ L 1.56-6.13 (BEAKER) (test code = 670) LYMPHOCYTES ABSOLUTE COUNT 0.28 K/ L 1.18-3.74 L (BEAKER) (test code = 414) MONOCYTES ABSOLUTE COUNT (BEAKER) 0.23 K/ L 0.24-0.36 L (test code = 415) EOSINOPHILS ABSOLUTE COUNT 0.11 K/ L 0.04-0.36 (BEAKER) (test code = 416) BASOPHILS ABSOLUTE COUNT (BEAKER) 0.01 K/ L 0.01-0.08 (test code = 417) IMMATURE GRANULOCYTES-RELATIVE 5 % 0-1 H PERCENT (BEAKER) (test code = 2801) GLUCOMETER GLUCOSE- LAB USE [id number] 06:59:00 Test Item Value Reference Range Interpretation Comments GLUCOMETER (test code 219 mg/dL 70-[address] JOSE CARLOS DHILLON = [facility]) AWAREMeter ID: [id number] tor: [id number] NG GLUCOMETER GLUCOSE- LAB USE [id number] 04:45:00 Test Item Value Reference Range Interpretation Comments GLUCOMETER (test code = 212 mg/dL 70-100 H Mete r ID: GMG) [id number] tor: [id number]
[2019-09-23 22:04] LABS: Magnesium 1.9 mg/dL (1.8-2.4); Potassium 3.4 mmol/L (3.5-5.1)
[2019-09-23] MEDS ORDERED: HALOPERIDOL LACT 5 MG/ML INJ ONE (22:25)
[2019-09-23] MEDS ORDERED: POTASSIUM CL SA 10 MEQ TAB PO ONE (22:26)
[2019-09-23] MEDS ORDERED: ONDANSETRON 4 MG/2 ML VIAL ONE (22:26)
[2019-09-23] MEDS ORDERED: FENTANYL CITR 100 MCG/2 ML ONE (22:28)
--- NOTE | 2019-09-23 22:52 | ER ---
Nurse's Notes [facility] Name: Emily Barbour Age: 48 yrs Sex: Female : 1970 Arrival Date: 09/23/2019 Time: 21:24 Bed 18 Private MD: Diagnosis: Cramp and spasm;Hypokalemia;Chronic kidney disease (CKD) Presentation: 09/22 21:25 Chief complaint: Patient states: full body cramps that lasted about 45 mins. Coronavirus screen: Proceed with normal triage. Ebola Screen: No symptoms or risks identified at this time. Initial Sepsis Screen: Does the patient meet any 2 criteria? No. Patient's initial sepsis screen is negative. Does the patient have a suspected source of infection? No. Patient's initial sepsis screen is negative. Risk Assessment: Do you want to hurt yourself or someone else? Patient reports no desire to harm self or others. Onset of symptoms was September 23, 2019. 21:25 Method Of Arrival: EMS: [facility] 21:25 Acuity: [place] 3 CYTOPATHOLOGY TECHNOLOGIST: 22:46 LMP N/A - control method ll1 Historical: - Allergies: 21:32 Benadryl; 21:32 metformin; 21:32 shrimp; 21:32 Tradjenta; - Home Meds: 21:32 magnesium oxide 500 mg Oral cap twice a day [Active]; Humalog 100 unit/mL Sub-Q soln 30 ah unit three times a day [Active]; - PMHx: 21:32 Anemia; Diabetes - IDDM; High Cholesterol; Hypertension; Renal Disease; Tendonitis in Elbows; - PSHx: 21:32 Hysterectomy; Cholecystectomy; breast reduction; Appendectomy; - Immunization history:: Adult Immunizations up to date. - Social history:: Smoking status: Patient denies any tobacco usage or history of. Patient uses alcohol, occasionally. Screenin:42 Abuse screen: Denies threats or abuse. Nutritional screening: No deficits noted. Tuberculosis screening: No symptoms or risk factors identified. Fall Risk None identified. Assessment: 21:44 General: Appears uncomfortable, Behavior is cooperative, appropriate for age. Pain: Complains of pain in all over. Neuro: Level of Consciousness is awake, alert, Oriented to person, place, time, situation. Cardiovascular: Capillary refill < 3 seconds Patient's skin is warm and dry. Respiratory: Airway is patent Respiratory effort is even, unlabored, Respiratory pattern is regular, symmetrical. GI: Abdomen is distended, Last BM was September 22, 2019. Reports cramping. Derm: Skin is intact, Skin is pale. 22:45 Reassessment: Patient and/or family updated on plan of care and expected duration. Pain ll1 level reassessed. Patient is alert, oriented x 3, equal unlabored respirations, skin warm/dry/pink. Vital Signs: 21:25 BP 150 / 78; Pulse 92; Resp 18; Temp 98.2; Pulse Ox 96% ; Weight 95.25 kg; Height 5 ft. ah 5 in. (165.10 cm); Pain 5/10; 22:10 Temp 98.5; ll1 22:48 BP 148 / 75; Pulse 97; Resp 18; Pulse Ox 97% ; ll1 23:02 Pulse 94; Resp 17; Pulse Ox 100% ; Pain 0/10; ll1 21:25 Body Mass Index 34.95 (95.25 kg, 165.10 cm) ED Course: 21:24 Patient arrived in ED. lp1 21:24 [facility] kb 21:24 Gennaro Juarez MD is Attending Physician. kb 21:28 Triage completed. 21:42 Inserted saline lock: 22 gauge in right antecubital area, using aseptic technique. ah 21:43 Patient has correct armband on for positive identification. Bed in low position. Call light in reach. Side rails up X 1. Pulse ox on. NIBP on. 22:10 Report received from Viktoria Keith RN. ll1 22:20 Tammy Beltran, JOCY is Primary Nurse. ll1 22:47 No provider procedures requiring assistance completed. ll1 22:47 Patient n/a. ll1 23:02 IV discontinued, intact, bleeding controlled, No redness/swelling at site. Pressure ll1 dressing applied. Administered Medications: 22:20 CANCELLED (Other Intervention Used): HALdol 2.5 mg IVP once kb 22:29 Drug: Zofran (Ondansetron) 4 mg Route: IVP; Site: right antecubital; ll1 23:01 Follow up: Response: No adverse reaction; RASS: Alert and Calm (0) 1 22:29 Drug: Potassium Chloride 20 mEq Route: PO; ll1 23:01 Follow up: Response: No adverse reaction; Nausea is decreased ll1 22:29 Drug: fentaNYL (PF) 50 mcg Route: IVP; Site: right antecubital; ll1 23:01 Follow up: Response: No adverse reaction; Pain is decreased; RASS: Alert and Calm (0) 1 Outcome: 22:51 Discharge ordered by MD. ritchie 23:03 Discharged to home ambulatory. ll1 23:03 Condition: stable 23:03 Discharge instructions given to patient, Instructed on discharge instructions, follow up and referral plans. Demonstrated understanding of instructions, follow-up care. 23:03 Patient left the ED. 1 Signatures: Magda Dempsey, STREET SUPERINTENDENT-C STREET SUPERINTENDENT-Ni Portillo, RN RN 1 Viktoria Keith RN RN Tammy Beltran RN RN 1
--- NOTE | 2019-09-23 22:53 | EDPHYS ---
Physician Documentation [facility] Name: Emily Barbour Age: 48 yrs Sex: Female : 1970 Arrival Date: 09/23/2019 Time: 21:24 Bed 18 Private MD: ED Physician Gennaro Juarez HPI: 09/22 22:18 This 48 yrs old Female presents to ER via EMS with complaints of full body kb cramps/muscle spasms. 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 States she took muscle relaxers at home that improved the spasms. . Onset: The symptoms/episode began/occurred 1.5 hour(s) ago. Severity of symptoms: At their worst the symptoms were moderate in the emergency department the symptoms have resolved. The patient has experienced similar episodes in the past, a few times. The patient has not recently seen a physician. RN COMPLIANCE: 22:46 LMP N/A - control method ll1 Historical: - Allergies: 21:32 Benadryl; ah 21:32 metformin; ah 21:32 shrimp; ah 21:32 Tradjenta; ah - Home Meds: 21:32 magnesium oxide 500 mg Oral cap twice a day [Active]; Humalog 100 unit/mL Sub-Q soln 30 ah unit three times a day [Active]; - PMHx: 21:32 Anemia; Diabetes - IDDM; High Cholesterol; Hypertension; Renal Disease; Tendonitis in ah Elbows; - PSHx: 21:32 Hysterectomy; Cholecystectomy; breast reduction; Appendectomy; ah - Immunization history:: Adult Immunizations up to date. - Social history:: Smoking status: Patient denies any tobacco usage or history of. Patient uses alcohol, occasionally. ROS: 22:20 Constitutional: Negative for fever, chills, and weight loss, Cardiovascular: Negative kb for chest pain, palpitations, and edema, Respiratory: Negative for shortness of breath, cough, wheezing, and pleuritic chest pain, Abdomen/GI: Negative for abdominal pain, nausea, vomiting, diarrhea, and constipation, Back: Negative for injury and pain, MS/Extremity: Negative for injury and deformity, Skin: Negative for injury, rash, and discoloration, Neuro: Negative for headache, weakness, numbness, tingling, and seizure. Exam: 22:20 Constitutional: This is a well developed, well nourished patient who is awake, alert, kb and in no acute distress. Head/Face: Normocephalic, atraumatic. Chest/axilla: Normal chest wall appearance and motion. Nontender with no deformity. No lesions are appreciated. Cardiovascular: Regular rate and rhythm with a normal S1 and S2. No gallops, murmurs, or rubs. Normal PMI, no JVD. No pulse deficits. Respiratory: Lungs have equal breath sounds bilaterally, clear to auscultation and percussion. No rales, rhonchi or wheezes noted. No increased work of breathing, no retractions or nasal flaring. Abdomen/GI: Soft, non-tender, with normal bowel sounds. No distension or tympany. No guarding or rebound. No evidence of tenderness throughout. Skin: Warm, dry with normal turgor. Normal color with no rashes, no lesions, and no evidence of cellulitis. MS/ Extremity: Pulses equal, no cyanosis. Neurovascular intact. Full, normal range of motion. Neuro: Awake and alert, GCS 15, oriented to person, place, time, and situation. Cranial nerves II-XII grossly intact. Motor strength 5/5 in all extremities. Sensory grossly intact. Cerebellar exam normal. Normal gait. Vital Signs: 21:25 BP 150 / 78; Pulse 92; Resp 18; Temp 98.2; Pulse Ox 96% ; Weight 95.25 kg; Height 5 ft. ah 5 in. (165.10 cm); Pain 5/10; 22:10 Temp 98.5; ll1 22:48 BP 148 / 75; Pulse 97; Resp 18; Pulse Ox 97% ; ll1 23:02 Pulse 94; Resp 17; Pulse Ox 100% ; Pain 0/10; ll1 21:25 Body Mass Index 34.95 (95.25 kg, 165.10 cm) MDM: 21:24 Patient medically screened. kb 22:20 Data reviewed: vital signs, nurses notes. Data interpreted: Pulse oximetry: on room air kb is 96 %. Interpretation: normal. Counseling: I had a detailed discussion with the patient and/or guardian regarding: the historical points, exam findings, and any diagnostic results supporting the discharge/admit diagnosis, lab results, the need for outpatient follow up, a family practitioner, to return to the emergency department if symptoms worsen or persist or if there are any questions or concerns that arise at home. ED course: Pt reports cramps started again. States they are all over, no one area can be pinpointed. 22:50 ED course: Pain resolved after medication administration. Pt resting comfortably on kb stretcher, watching TV. . 09/22 21:25 Order name: Basic Metabolic Panel kb 09/22 21:25 Order name: Magnesium kb 09/22 21:26 Order name: Basic Metabolic Panel; Complete Time: 22:13 EDAR 09/22 21:26 Order name: Magnesium; Complete Time: 22:13 EDAR 09/22 21:25 Order name: IV Start; Complete Time: 21:42 kb Administered Medications: 22:20 CANCELLED (Other Intervention Used): HALdol 2.5 mg IVP once kb 22:29 Drug: Zofran (Ondansetron) 4 mg Route: IVP; Site: right antecubital; ll1 23:01 Follow up: Response: No adverse reaction; RASS: Alert and Calm (0) ll1 22:29 Drug: Potassium Chloride 20 mEq Route: PO; ll1 23:01 Follow up: Response: No adverse reaction; Nausea is decreased ll1 22:29 Drug: fentaNYL (PF) 50 mcg Route: IVP; Site: right antecubital; ll1 23:01 Follow up: Response: No adverse reaction; Pain is decreased; RASS: Alert and Calm (0) ll1 Disposition: 09/23 03:47 Co-signature as Attending Physician, Gennaro Juarez MD. [email or web address] Disposition: 09/23/19 22:51 Discharged to Home. Impression: Cramp and spasm, Hypokalemia, Chronic kidney disease (CKD). - Condition is Stable. - Discharge Instructions: Muscle Cramps and Spasms, Hypokalemia. - Medication Reconciliation Form, Thank You Letter, Antibiotic Education, Prescription Opioid Use form. - Follow up: Emergency Department; When: As needed; Reason: Worsening of condition. Follow up: Private Physician; When: 2 - 3 days; Reason: Recheck today's complaints, Continuance of care, Re-evaluation by your physician. Signatures: Dispatcher [employer] Magda Askew FNP-C FNP-Viktoria Betts, RN RN Tammy Beltran RN RN ll1 Gennaro Juarez MD MD [email or web address] Corrections: (The following items were deleted from the chart) 09/22 22:20 22:16 HALdol 2.5 mg IVP once ordered. kb kb 22:51 22:50 ED course: Pain resolved after medication administration. Pt resting comfortably kb on stretcher, watching TV. . kb 23:03 22:51 09/23/2019 22:51 Discharged to Home. Impression: Cramp and spasm; Hypokalemia; ll1 Chronic kidney disease (CKD). Condition is Stable. Forms are Medication Reconciliation Form, Thank You Letter, Antibiotic Education, Prescription Opioid Use. Follow up: Emergency Department; When: As needed; Reason: Worsening of condition. Follow up: Private Physician; When: 2 - 3 days; Reason: Recheck today's complaints, Continuance of care, Re-evaluation by your physician. kb
[2019-09-23 23:20] VITALS: TEMP 98.5
[2019-09-23 23:28] VITALS: BP 148/75
[2019-09-23 23:30] VITALS: O2SAT 100
== END 2019-09-23 23:03 | disposition home or self-care (01) ==
LOC: ER 21:18
DX: E87.6 Hypokalemia (principal); E11.22 Type 2 diabetes mellitus with diabetic chronic kidney disease; I12.9 Hypertensive chronic kidney disease with stage 1 through stage 4 chronic kidney disease, or unspecified chronic kidney disease; N18.9 Chronic kidney disease, unspecified; Z79.4 Long term (current) use of insulin; Z88.8 Allergy status to other drugs, medicaments and biological substances; Z91.013 Allergy to seafood
CPT/HCPCS: 80048; 36415; 83735; 96375; 96374; 99284; J3010; J2405; J1630

== ENCOUNTER 2019-12-13 15:59 | Inpatient (IN) | payer BC ==
--- OUTSIDE RECORDS SUMMARY | 2019-12-13 16:01 | XMS REPORT | Clinical Summary ---
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
--- OUTSIDE RECORDS SUMMARY | 2019-12-13 16:01 | XMS REPORT | Clinical Summary ---
:1970 Author Organization [facility] Address [address] [place] [address] Care Team Providers Name Role Phone Pcp [...] tablet 90 tablet 3 10/22/2018 0 10/22/2019 (81 mg total) by mouth daily. allopurinol (ZYLOPRIM) Take 1 tablet 30 tablet 0 10/22/2018 100 MG tablet (100 mg total) by mouth daily. furosemide (LASIX) 40 Take 1 tablet 30 tablet 0 10/22/201809/2019 MG tablet (40 mg total) by mouth daily. NIFEdipine (ADALAT CC) Take 1 tablet 90 tablet 0 10/22/2018 30 MG 24 hr tablet (30 mg [...] (obstructive sleep apnea) 10/16/2018 Morbid obesity 10/16/2018 Family History Medical History Relation Name Comments [...] Signs Not on file Plan of Treatment Not on file Results Not on fileafter 12/12/2018 Insurance Payer Benefit Plan / Subscriber ID Type Phone Address Group BLUE [employer]OSS/[employer]UE [employer] xxxxxxxxxxxx PPO [phone] [id number] [employer]ELD [place] [address] Advance Directives For more information, please contact:[place] [id number] [place], [place] [phone] Code Status Date Activated Date Inactivated Comments Full Code 10/16/2018 5:38 PM 10/21/2018 2:34 PM This code status was determined by: Patient
--- OUTSIDE RECORDS SUMMARY | 2019-12-13 16:03 | XMS REPORT | Continuity of Care Document ---
:1970 Author Organization [facility] t Address [address] [place] [address] Care Team Providers Name Role Phone Pcp Primary Care Physician Unavailable Farhat PAIGE Attending Clinician Unavailable DR XIOMARA Attending Clinician Unavailable Farhat PAIGE Admitting Clinician Unavailable DR XIOMARA Admitting Clinician Unavailable Problems Condition Condition Condition Status Onset Resolution Last Treating Co mments Source Name Details Category Date Date Treatment Clinician Date Splenomega Splenomega Disease Active [facility] 10-23 [facility] - 00:[facility]: Medical 00 [place] Obesity, Obesity, Disease [facility] Class II, Class II, 10-17 [facility] - BMI BMI 00:00: Medical 35-39.9 35-39.9 00 Center Elevated Elevated Disease [facility] liver liver 10-16 [place] - enzymes enzymes 00:00: Medical 00 [place] Acute Acute Disease Active [facility] respirator respirator 10-16 Emili kes - y distress y distress 00:00: Me dical 00 Center Acute Acute Disease Active [facility] congestive congestive 10-16 Emili hoffs - heart heart 00:00: Medical failure failure 00 [place] Stage 4 Stage [address] [facility] chronic chronic 10-16 [place] - kidney kidney 00:00: Medical disease disease 00 Center Controlled Controlled Disease Active C [facility] type 2 type 2 10-16 [place] - diabetes diabetes 00:00: Medica l mellitus mellitus 00 Center with stage with 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, disease, with with long-term long-term current current use of use of insulin insulin SHREE SHREE Disease Active [facility] (obstructi (obstructi 10-16 [facility] - ve sleep ve sleep 00:00: Medica l apnea) apnea) 00 Center Morbid Morbid Disease Active [facility] obesity obesity 10-16 [facility] - 00:[facility]: Medical 00 Center Allergies, Adverse Reactions, Alerts Allergy Allergy Status Severity Reaction(s) Onset Inactive Treating Comm ents Source Name Type Date Date Clinician Diphenhy Propensi Active Rash [facility] St dramine ty to 10-16 [facility] - Hcl adverse 00:00: Medical reaction 00 [place] s Metformi Propensi Active Other (See Advised [facility] n ty to Comments) 10-16 not to [facility] - adverse 00:00: take Medical reaction 00 cause of [place] s kidneys Linaglip Propensi Active Diarrhea, Loss of [facility] tin ty to Nausea And 10-16 appetite Luke s - adverse Vomiting 00:00: Medical reaction 00 [place] s Diphenhy Propensi Active [place] [facility] to 6-25 Methodi taminoph adverse 00:00: st en reaction 00 s to drug Metformi Propensi Active [place] ty to 6-25 [facility] adverse 00:00: st reaction 00 s to drug [place] Propensi Active [place] ty to 6-25 [facility] adverse 00:00: st reaction 00 s to drug Family History Family Member Diagnosis Comments Start Date Stop Date Source Natural brother Congenital heart [facility] disease [facility] Natural father Stroke [facility] Natural mother Diabetes [facility] Natural sister Asthma [facility] Social History Social Habit Start Date Stop Date Quantity Comments Source History of tobacco Current smoker [facility] - use [facility] History SDOH [facility] - Alcohol Std Drinks Medica l Center History SDOH [facility] - Alcohol Binge Medical Christopher ter Sex Assigned At [facility] Cigarettes smoked 2018-10-16 2018-10-16 [facility] - current (pack per 00:00:00 00:00:00 Medical Center day) - Reported Cigarette 2018-10-16 2018-10-[address] [facility] - pack-years 00:00:00 00:00:00 Medical Center History SDOH 2018-10-16 2018-10-[address] [facility] - Alcohol Frequency 00:00:00 00:00:00 Medical Center Alcohol intake 2017-10-10 2017-10-10 Current [facility]ist 00:00:00 00:00:00 non-drinker of alcohol (finding) Smoking Status Start Date Stop Date Source Former smoker 2018-10-16 00:00:00 2018-10-16 00:00:[address] [facility] Medications Ordered Filled Start Stop Current Ordering Indication Dosage Frequency Signature Comments Components Source Medication Medication Date Date Medication? Clinician (SIG) Name Name aspirin 81 2020- No 81mg QD Take [address] MG EC 10-22 tablet (81 [facility] - tablet 00:00: 23:59 mg total) Medic al 00 :00 by mouth Center daily. allopurinol 2019- No 100mg QD Take [address] (ZYLOPRIM) 10-22 tablet [facility] - 100 MG 00:00: 23:59 (100 mg Medical tablet 00 :00 total) by Center mouth daily. furosemide 2020- No 40mg QD Take [address] (LASIX) 40 10-22 tablet (40 Emili kes - MG tablet 00:00: 23:59 mg total) Ct dical 00 :00 by mouth Center daily. NIFEdipine 2020- No 30mg QD Take [address] (ADALAT CC) 10-22 tablet (30 L ukes - 30 MG 24 hr 00:00: 23:59 mg total) Medical tablet 00 :00 by mouth Center daily. magnesium 2019- Yes 500mg Q.5D Take [address] gluconate 7-01 mg by [facility] - (MAGONATE) 18:45: mouth 2 Medi donna 27.5 mg 48 (two) Center magne- sium times (500 mg) daily. tablet ferrous 2019-0 Yes 325mg Take 325 [facility] sulfate 325 7-01 mg by [facility] - (65 FE) MG 18:45: mouth Medica l tablet 48 daily with Center breakfast. cholecalcif 2018- Yes Take by [facility] veronica, 7 mouth. [facility] - vitamin D3, 18:45: Medica l 2,000 unit 48 Center Cap cyanocobala 2018-0 Yes QD Take by [facility] min 10-16 mouth [facility] - (VITAMIN 18:45: daily. Medical B-12) 100 48 Center MCG tablet amitriptyli Yes 50mg QD Take [address] ne (ELAVIL) 10-16 by mouth Luke s - 50 MG 18:45: nightly. Medical tablet 47 Center DULoxetine Yes 20mg QD Take [address] (CYMBALTA) 10-16 by mouth [facility] - 20 MG 18:45: daily. Medical capsule 47 Center magnesium 0 Yes 500mg Q.5D Take [address] gluconate 6-25 mg by Methodi (MAGONATE) 11:40: mouth 2 st 500 mg 34 (two) tablet times a tablet day. cholecalcif 0 Yes 2000U QD Take 2,000 [place] veronica, 6-25 Units by Methodi vitamin D3, 11:40: mouth st (VITAMIN 34 daily. D3) 2,000 unit capsule capsule furosemide 0 Yes 40mg Q.5D Take 40 mg [place] (LASIX) 40 6-25 by mouth 2 Met hodi mg tablet 11:39: (two) st 16 times a day. DULoxetine Yes 30mg QD Take 30 mg [place] (CYMBALTA) 6-25 by mouth Metho di 30 MG 11:39: daily. st capsule 16 insulin 2018-0 Yes 20U Q.[id number] Inject 20 [place] lispro 6-25 [id number] Units Method i (HumaLOG) 11:39: 3D under the st 100 unit/mL 16 skin 3 injection (three) times a day before meals. pantoprazol 2018-0 Yes 40mg QD Take 40 mg Castro e 6-25 by mouth Methodi (PROTONIX) 11:39: daily. st 40 MG EC 16 tablet insulin 0 Yes 40U QD Inject 40 [place] glargine,hu 6-25 Units Rekha m.rec.anlog 11:39: under the s t (TOUJEO 16 skin SOLOSTAR daily. U-300 INSULIN SUBQ) fenofibrate 2017-0 Yes 160mg QD Take 160 [place] (LOFIBRA) 6-25 mg by Methodi 160 MG 11:39: mouth st tablet 16 daily. amitriptyli 2018-0 Yes 100mg QD Take 100 [place] (ELAVIL) 6-25 mg by Methodi 100 MG 11:39: mouth st tablet 16 nightly. liraglutide 2018-0 Yes 1.8mg QD Inject 1.8 [place] (VICTOZA 6-25 mg under Methodi 2-GILBERTO) 0.6 11:39: the skin st mg/0.1 mL 16 daily. (18 mg/3 mL) pen injector ferrous 2018-0 Yes 325mg Q.5D Take 325 [place] sulfate 325 6-25 mg by Methodi (65 FE) MG 11:39: mouth 2 st tablet 16 (two) times a day. cyanocobala 2017- Yes 250ug QD Take 250 [place] min 6-25 mcg by Methodi (VITAMIN 11:39: mouth st B-12) 250 16 daily. MCG tablet Procedures This patient has no known procedures. Plan of Care Planned Activity Planned Date Details Comments Source Future Scheduled 2020-01-17 INFLUENZA VACCINE [place] [facility] 00:00:00 [code = INFLUENZA VACCINE] Future Scheduled 1991-10-14 Screening for [facility] Test 00:00:00 malignant neoplasm of cervix (procedure) [code = 227192020] Encounters Start End Encounter Admission Attending Care Care Encounter Source Date/Time Date/Time Type Type Clinicians Facility Department ID 2018 2018 Outpatient Aurelio SOLANO Aurelio [facility] [id number] 04:57:00 08:15:00 [facility] Results Test Description Test Time Test Comments Results Result [facility] e Comments BONE MARROW EXAM 2018-11-14 Bone Marrow Pathology 14:30:00 Report Case: [id number] Authorizing Provider: Tiff Colmenares MD Collected: 10/20/2018 1030 Ordering Location: [address] Received: 10/20/2018 1151 Service Pathologist: Damián [...] CIRCULATING BLASTS. Signing Pathologist Direct Phone Line: [phone] y signed by Damián Mckeon MD on 10/24/2018 at 4:50 PMThere is no morphologic or immunophenotypic evidence of lymphoma or acute leukemia. This patient has a reported clinical history of anemia and hepatosplenomegaly as per the electronic medical records in [facility]. The morphologic finding of the megakaryocytes is nonspecific and could be reactive however they raise concern for the presence of an evolving myeloid neoplasm. Molecular and cytogenetic studies are currently pending, with results to be issued in an addendum report. 03113; 05735; 36474 x 2; 10260; 69082, 28883, [id number] Bone marrow The case is received in three parts all labeled with the patient's name, Jose Barbour, date of 1970, and accession number, [id number], which corresponds to the accompanying requisition page [...] of and accession number. RP/ew BONE MARROW ASPIRATE:QUALITY:Aspirate - AdequateTouch imprint- AdequateMARROW DIFFERENTIAL COUNT: Number of [...] evaluated Immunohistochemistry technical testing was performed at [facility], Pathology Laboratory where it was developed [...] 2018-10-23 14:30:00 Test Item Value Reference Range Interpretation Comme nts FLOW CYTOMETRY RESULT POINTER (OPAL) (test code = 2758) See Separ ate Report FLOW CYTOMETRY AP CASE # (OPAL) (test code = 2759) [id number] FLOW [id number] 09:46:00Flow Cytometry Report Case: [id number] Authorizing Provider: Tiff Colmenares MD Collected: 10/20/2018 1151 Ordering Location: [address] Received: 10/20/2018 5770 Service Pathologist: Damián Mckeon MD Specimen: Other BONE MARROW, FLOW CYTOMETRY:NO MONOCLONAL B CELL POPULATION.NO ABNORMAL T CELL POPULATION.NO INCREASED BLAST POPULATION.CORRELATION WITH MORPHOLOGIC FINDINGS REQUIRED. 52651LljnyeWlhx marrow CD8, surface-Exira, CD56, surface-Lambda, CD5, CD19, CD10, CD3, CD20, CD4, CD45, CD14, CD13, CD33, CD117, CD34, cKappa, cLambda, CD38, BL853Opystnkw Viability: 97.2% Blasts: The dim CD45+ CD34+ [...] developed and their performance characteristics determined by [facility]. Theyhave not been cleared or [...] Test performed by IFA method.ANGELES TITER AND [id number] 11:18:00 Test Item Value Reference Range Interpretation Comments ANGELES TITER (BEAKER) (test code = :160 1541) ANGELES PATTERN (BEAKER) (test code = Nucleolar 1781) HEPATITIS A [id number] 08:30:00 Test Item Value Reference Range Interpretation Comments HEPATITIS A IGM ANTIBODY (BEAKER) Nonreactive Nonreactive (test code = 498) HEPATITIS A IGG ANTIBODY (BEAKER) Reactive Nonreactive A (test code = 2797) POCT-GLUCOSE [id number] 08:29:00 Test Item Value Reference Range Interpretation Comments POC-GLUCOSE METER 270 mg/dL 70-110 H TESTED AT [facility] 6720 (BEAKER) (test code = MICHAEL Garcia [facility] 1538) [address] HEPATITIS B [id number] 08:29:00 Test Item Value Reference Range Interpretation Comments HEPATITIS B CORE TOTAL ANTIBODY Nonreactive Nonreactive (BEAKER) (test code = 497) HEPATITIS B SURFACE ANTIBODY < mIU/mL <8.0 (BEAKER) (test code = 647) HEPATITIS B SURFACE ANTIGEN (2) Nonreactive Nonreactive (BEAKER) (test code = 2585) BASIC METABOLIC [id number] 06:54:00 Test Item Value Reference Range Interpretation [...] S NOT APPLICABLE FOR DIALYSIS PATIEN TS. [id number] 06:50:00 Test Item Value Reference Range Interpretation Comments MAGNESIUM (BEAKER) (test code = 2.1 mg/dL 1.6-2.6 627) HEPATIC FUNCTION [id number] 06:50:00 Test Item Value Reference Range Interpretation [...] 224 U/L 125-220 H code = 635) [id number] 06:20:00 Test Item Value Reference Range Interpretation Comments FERRITIN (BEAKER) (test code = 1162 ng/mL 5-275 H 361) POCT-GLUCOSE [id number] 21:09:00 Test Item Value Reference Range Interpretation Comments POC-GLUCOSE METER 336 mg/dL 70-110 H Notified R Magdy ARVIZU/TESTED (BEAKER) (test code = AT [facility] [address] 1538) [facility] 7703 0 POCT-GLUCOSE [id number] 18:17:00 Test Item Value Reference Range Interpretation Comments POC-GLUCOSE METER 308 mg/dL 70-110 H TESTED AT [facility] 6720 (BEAKER) (test code = MICHAEL Garcia [place] [id number]) [address] PROTEIN ELECTROPHORESIS, [id number] 17:39:00 Test Item Value Reference Range Interpretation [...] and concomitant chronic immune or inflammatory response. [id number] Armani To M.D. (BEAKER) (test code = (electonic signature) 2616) PROTEIN TOTAL SERUM, 7.6 gm/dL 6.0-8.3 SPEP (BEAKER) (test code = 2660) BONE MARROW PROCESS.2018-10-20 12:02:00 Test Item Value Reference Range Interpretation Comments ANATOMIC CASE# (BEAKER) (test code M19-113 = 2470) ORDERED BY DOCTOR# (BEAKER) (test Escudier code = 2457) PERFORMED BY DOCTOR# (BEAKER) (test Cora code = 2458) CLOT RECEIVED? (BEAKER) (test [...] performed. This wasgiven to the speech pathology supervisor who was present at the time of the study and deemed adequate. Subsequently, a core biopsy was obtained. This was also given to the speech pathology supervisor. COMPLICATIONS:None. ESTIMATED BLOOD LOSS: Minimal. Patient Disposition: The patient was in the same state post procedure as preprocedure. IMPRESSION: Successful CT-guided aspiration and core biopsy of the bone marrow. Signed: Long Shepherd Verified Date/Time: 10/20/2018 11:46:15 Reading Location: [address] Ortho Consult Reading Room 1 1:46 AMPOCT-GLUCOSE [id number] 11:37:00 Test Item Value Reference Range Interpretation Comments POC-GLUCOSE METER 213 mg/dL 70-110 H TESTED AT [facility] 6720 [facility] (test code = [place] [facility] 1531) [address] CBC W/PLT COUNT & AUTO [id number] 10:17:00 Test Item Value Reference Range Interpretation [...] Received comment: User comments: Slide comments:BASIC METABOLIC [id number] 07:15:00 Test Item Value Reference Range Interpretation [...] S NOT APPLICABLE FOR DIALYSIS PATIEN TS. [id number] 06:12:00 Test Item Value Reference Range Interpretation Comments MAGNESIUM (BEAKER) 2.0 mg/dL 1.6-2.6 Specimen slightly (test code = 627) hemolyzed [id number] 06:12:00 Test Item Value Reference Range Interpretation Comments PHOSPHORUS (BEAKER) 4.7 mg/dL 2.3-4.7 Specimen slightly (test code = 604) hemolyzed [id number] 06:06:00 Test Item Value Reference Range Interpretation [...] is2.5-3.5 for patients wiht mechanical heart valves.POCT-GLUCOSE [id number] 21:39:00 Test Item Value Reference Range Interpretation Comments POC-GLUCOSE METER 327 mg/dL 70-110 H Will Repea t Test/TESTED (BEAKER) (test code = AT [facility] [address] 1538) [facility] 7703 0 POCT-GLUCOSE [id number] 17:28:00 Test Item Value Reference Range Interpretation Comments POC-GLUCOSE METER 244 mg/dL 70-110 H TESTED AT [facility] 6720 ([facility]) (test code = MICHAEL Garcia [place] [id number]) [address] RHEUMATOID FACTOR AB, REFLEX TO [id number] 11:15:00 Test Item Value Reference Range Interpretation Comments RHEUMATOID FACTOR (BEAKER) (test Negative code = 573) CBC W/PLT COUNT & AUTO [id number] 09:44:00 Test Item Value Reference Range Interpretation [...] 3438) Received comment: User comments: Slide comments:POCT-GLUCOSE [id number] 09:05:00 Test Item Value Reference Range Interpretation Comments POC-GLUCOSE METER 166 mg/dL 70-110 H TESTED AT [facility] 6720 (BEAKER) (test code = MICHAEL [place] 1538) [address] COMPREHENSIVE METABOLIC [id number] 07:14:00 Test Item Value Reference Range Interpretation [...] S NOT APPLICABLE FOR DIALYSIS PATIEN TS. [id number] 06:36:00 Test Item Value Reference Range Interpretation Comments MAGNESIUM (BEAKER) 2.0 mg/dL 1.6-2.6 Specimen slightly (test code = 627) hemolyzed [id number] 06:36:00 Test Item Value Reference Range Interpretation Comments PHOSPHORUS (BEAKER) 4.4 mg/dL 2.3-4.7 Specimen slightly (test code = 604) hemolyzed URIC [id number] 06:36:00 Test Item Value Reference Range Interpretation Comments URIC ACID (BEAKER) 9.8 mg/dL 2.6-7.2 H Specimen slightly (test code = 773) hemolyzed HEPATIC FUNCTION [id number] 06:36:00 Test Item Value Reference Range Interpretation [...] Specimen slightly (test code = 347) hemolyzed B-TYPE NATRIURETIC FACTOR (BNP)2018-10-19 06:33:00 Test Item Value Reference Range Interpretation Comments B-TYPE NATRIURETIC PEPTIDE (BEAKER) 162 pg/mL 0-100 H (test code = 700) PROTHROMBIN [id number] 06:06:00 Test Item Value Reference Range Interpretation [...] is2.5-3.5 for patients wiht mechanical heart valves.CALCIUM, [id number] 05:56:00 Test Item Value Reference Range Interpretation Comments CALCIUM IONIZED (BEAKER) (test 1.10 mmol/L 1.12-1.27 L code = 698) PH, BLOOD (BEAKER) (test code = 7.38 1810) CALCIUM, [id number] 05:56:00 Test Item Value Reference Range Interpretation Comments CALCIUM IONIZED (BEAKER) (test 1.07 mmol/L 1.12-1.27 L code = 698) PH, BLOOD (BEAKER) (test code = 7.41 1810) POCT-GLUCOSE [id number] 21:33:00 Test Item Value Reference Range Interpretation Comments POC-GLUCOSE METER 297 mg/dL 70-110 H TESTED AT [facility] 6720 ([facility]) (test code = MICHAEL Radha [address] [place] 1538) [address] CMV PCR, [id number] 18:31:00 Test Item Value Reference Range Interpretation [...] and its performance characteristics determined by the [facility] Path ology Department, Section of Molecular Pathology. It has not been cleared or approved by the U.S. Food and Drug Administration (FDA), since FDA approval is not required for clinical use of the test. Validation was done as required by The Clinical Laboratory Improvement Amendments of 1988.EBV VIRAL [id number] 18:23:00 Test Item Value Reference Range Interpretation [...] (2) real-time PCR amplification and detection with JMMF-8-mckkfyuu primers and probes. A well-conserved region of the EBNA-1 gene is targeted, along with an internal control sequence used to confirm PCR amplification. Asymptomatic carriers and viral genetic variation, among other factors, can affect the accuracy of nucleic acid testing; therefore, results should be interpreted in light of clinical data.This test was developedand its performance characteristics determined by the [facility] Pathology Department, Section of Molecular Pathology. It has not been cleared or approved by the U.S. Food and Drug Administration (FDA), since FDA approval is not required for clinical use of the test. Validation was doneas required by The Clinical Laboratory Improvement Amendments of 1988.POCT-GLUCOSE [id number] 18:02:00 Test Item Value Reference Range Interpretation Comments POC-GLUCOSE METER 198 mg/dL 70-110 H TESTED AT [facility] 6720 (BEAKER) (test code = MICHAEL CASTR[place] 1538) [address] RESPIRATORY PANEL [id number] 17:32:00 Test Item Value Reference Range Interpretation [...] [place] [facility] using the [employer] FilmArray Respiratory Panel. It is FDA cleared and has been verified and approved by the [facility] Molecular Diagnostics Laboratory for clinical use on nasopharyngeal swab specimens.The performance of the FilmArrayRP has not been established in individuals who received influenza vaccine. Recent administration ofa nasal influenza vaccine may cause false positive results for Influenza A and/orInfluenza B.EOSINOPHIL SMEAR, [id number] 16:42:00 Test Item Value Reference Range Interpretation Comments EOSINOPHIL SMEAR, URINE Rare EOS =less than No EOS seen A (BEAKER) (test code = 5% WBCs seen are EOS 1851) CT, CHEST, WITHOUT [id number] 16:31:00FINAL REPORT CT Chest, abdomen, and pelvis [...] the pelvic cul-de-sac, nonspecific. Signed: Mani Morel Ve rified Date/Time: 10/18/2018 16:31:25 Reading Location: [facility] Radiology Reading Room CT, [id number] 16:31:00Reason for exam:->hepatosplenomegalyFINAL REPORT CT Chest, abdomen, [...] Morel Verified Date/Time: 10/18/2018 16:31:25 Reading Location: [facility] Radiology Reading Room CBC W/PLT COUNT & AUTO [id number] 15:06:00 Test Item Value Reference Range Interpretation [...] Previous code = 413) result was 1 / 00 WBC on 10/18/2018 at 0657 CDT [...] Negative Negative, Inconclusive (test code = 1623) [id number] 13:19:00 Test Item Value Reference Range Interpretation Comments FERRITIN (BEAKER) (test code = 6230 ng/mL 5-275 H 361) HIV-1 ANTIGEN WITH HIV-1/2 [id number] 12:57:00 Test Item Value Reference Range Interpretation Comments HIV-1 ANTIGEN WITH HIV 1\\T\\2 Nonreactive Nonreactive ANTIBODY (2) (BEAKER) (test code = 2586) [id number] 12:53:00 Test Item Value Reference Range Interpretation Comments HAPTOGLOBIN (BEAKER) (test code = 301 mg/dL 14-258 H 366) [id number] 12:34:00 Test Item Value Reference Range Interpretation [...] is within 95-100% range.ALPHA FETOPROTEIN (AFP), TUMOR [id number] 12:29:00 Test Item Value Reference Range Interpretation Comments ALPHA-FETOPROTEIN (BEAKER) (test code < ng/mL <10.0 = 1094) [id number] 11:08:00 Test Item Value Reference Range Interpretation Comments TRIGLYCERIDES (BEAKER) (test code = 299 mg/dL 540) TRIGLYCERIDE REFERENCE RANGELow Risk <150Borderline Risk 150-199High Risk 200-499Very High Risk>=500POCT-GLUCOSE [id number] 11:05:00 Test Item Value Reference Range Interpretation Comments POC-GLUCOSE METER 248 mg/dL 70-110 H TESTED AT [facility] 6720 (BEAKER) (test code = MICHAEL Garcia [place] 1538) [address] RETICULOCYTE [id number] 11:05:00 Test Item Value Reference Range Interpretation Comments RETICULOCYTE COUNT PCT (BEAKER) (test 4.3 % 0.5-1.7 H code = 575) IRON, TIBC, % SAT. (WITHOUT FERRITIN)2018-10-18 10:12:00 Test Item Value Reference Range Interpretation Comments IRON (BEAKER) (test code = 547) 42.0 ug/dL 40.0-160.0 TOTAL IRON BINDING CAPACITY 264 ug/dL 250-450 (BEAKER) (test code = 769) IRON % SATURATION (2) (BEAKER) 16 % 20-55 L (test code = 2590) POCT-GLUCOSE [id number] 08:55:00 Test Item Value Reference Range Interpretation Comments POC-GLUCOSE METER 198 mg/dL 70-110 H TESTED AT [place] [address] ([facility]) (test code = [facility] 1538) [address] [id number] 06:57:00 Test Item Value Reference Range Interpretation Comments PHOSPHORUS (BEAKER) (test code = 4.5 mg/dL 2.3-4.7 604) [id number] 06:57:00 Test Item Value Reference Range Interpretation Comments MAGNESIUM (BEAKER) (test code = 1.7 mg/dL 1.6-2.6 627) HEPATIC FUNCTION [id number] 06:57:00 Test Item Value Reference Range Interpretation [...] 693 U/L 6-55 H 347) BASIC METABOLIC [id number] 06:57:00 Test Item Value Reference Range Interpretation [...] NOT APPLICABLE FOR DIALYSIS PATIEN TS. PROTHROMBIN [id number] 06:37:00 Test Item Value Reference Range Interpretation [...] is2.5-3.5 for patients wiht mechanical heart valves.CALCIUM, [id number] 06:19:00 Test Item Value Reference Range Interpretation Comments CALCIUM IONIZED (BEAKER) (test 1.09 mmol/L 1.12-1.27 L code = 698) PH, BLOOD (BEAKER) (test code = 7.36 1810) POCT-GLUCOSE [id number] 21:54:00 Test Item Value Reference Range Interpretation Comments POC-GLUCOSE METER 281 mg/dL 70-110 H TESTED AT [facility] 67[address] ([facility]) (test code = MICHAEL Garcia [facility] 1538) [address] RAD, CHEST, 1 VIEW, NON [id number] 19:11:00Reason for exam:->SOBShould this be performed at [...] MDReport Verified Date/Time: 10/17/2018 19:11:02 Reading Location: [address] Consult Reading Room [id number] 17:36:00 Test Item Value Reference Range Interpretation Comments FERRITIN (BEAKER) (test code = 00237 ng/mL 5-275 H 361) LACTATE DEHYDROGENASE (LDH)2018-10-17 16:41:00 Test Item Value Reference Range Interpretation Comments LACTATE DEHYDROGENASE (BEAKER) (test 541 U/L 125-220 H code = 635) [id number] 16:37:00 Test Item Value Reference Range Interpretation Comments FIBRINOGEN LEVEL (BEAKER) (test 439 mg/dl 225-434 H code = 658) POCT-GLUCOSE [id number] 12:47:00 Test Item Value Reference Range Interpretation Comments POC-GLUCOSE METER 250 mg/dL 70-110 H [facility] (BEAKER) (test code = MICHAEL Garcia [place] 1538) [address] PUL PERF IMAGING, PARTIC, [id number] 10:48:00FINAL REPORT PROCEDURE: V/Q LUNG SCAN CPT CODE: 46110 INDICATION: Acute chest pain pulmonary origin PROTOCOL: [...] MDReport Verified Date/Time: 10/17/2018 10:48:21 Reading Location: [address] Reading Room U/S, PELVIC, [id number] 10:02:00Reason for exam:->AKIFINAL REPORT Abdominal and pelvic [...] MDReport Verified Date/Time: 10/17/2018 10:02:56 Reading Location: [address] Radiology Reading Room U/S, ABDOMINAL, WITH [id number] 10:02:00Reason for exam:->elevated transaminasesFINAL REPORT Abdominal and [...] Ayoub MDReport Verified Date/Time:10/17/2018 10:02:56 Reading Location: [address] Radiology Reading Room VITAMIN B12 AND [id number] 08:37:00 Test Item Value Reference Range Interpretation Comments VITAMIN B12 (BEAKER) (test code = > pg/mL 213-816 H 774) FOLATE (BEAKER) (test code = 362) 13.3 ng/mL >=7.0 POCT-GLUCOSE [id number] 08:32:00 Test Item Value Reference Range Interpretation Comments POC-GLUCOSE METER 168 mg/dL 70-110 H TESTED AT [facility] 6720 (BEAKER) (test code = [facility] 1538) [address] [id number] 08:03:00 Test Item Value Reference Range Interpretation Comments FERRITIN (BEAKER) (test code = 44373 ng/mL 5-275 H 361) URIC [id number] 06:15:00 Test Item Value Reference Range Interpretation Comments URIC ACID (BEAKER) (test code = 13.2 mg/dL 2.6-7.2 H 773) [id number] 06:15:00 Test Item Value Reference Range Interpretation Comments MAGNESIUM (BEAKER) (test code = 1.8 mg/dL 1.6-2.6 627) LIPID [id number] 06:15:00 Test Item Value Reference Range Interpretation [...] 130-159 High 160-189 Very High >=190HEPATIC FUNCTION [id number] 06:15:00 Test Item Value Reference Range Interpretation [...] 1009 U/L 6-55 H 347) COMPLEMENT COMPONENT [id number] 06:15:00 Test Item Value Reference Range Interpretation Comments C4 COMPLEMENT (BEAKER) (test code = 28 mg/dL 15-57 394) COMPLEMENT COMPONENT [id number] 06:15:00 Test Item Value Reference Range Interpretation [...] L (test code = 2590) BASIC METABOLIC [id number] 06:15:00 Test Item Value Reference Range Interpretation [...] NOT APPLICABLE FOR DIALYSIS PATIEN TS. PROTHROMBIN [id number] 05:57:00 Test Item Value Reference Range Interpretation [...] mechanical heart valves.CBC W/PLT COUNT & AUTO [id number] 05:55:00 Test Item Value Reference Range Interpretation [...] H PERCENT (BEAKER) (test code = 2801) TROPONIN [id number] 01:09:00 Test Item Value Reference Range Interpretation [...] acidosis, acute neurological disease, and persistent tachyarrhythmia.OSMOLALITY, [id number] 22:24:00 Test Item Value Reference Range Interpretation Comments OSMOLALITY URINE (BEAKER) (test 317 mOsm/kg 40-1,400 code = 614) HEMOGLOBIN [id number] 22:20:00 Test Item Value Reference Range Interpretation Comments HEMOGLOBIN A1C (BEAKER) (test code = 7.2 % 4.3-6.1 H 368) URINALYSIS W/ [id number] 22:19:00 Test Item Value Reference Range Interpretation [...] code = 516) SOURCE(BEAKER) (test code = 2538) POCT-GLUCOSE [id number] 22:09:00 Test Item Value Reference Range Interpretation Comments POC-GLUCOSE METER 171 mg/dL 70-110 H TESTED AT [facility] 6720 (BEAKER) (test code = MICHAEL [place] 1538) [address] PROTEIN, RANDOM [id number] 21:36:00 Test Item Value Reference Range Interpretation Comments PROTEIN, URINE (BEAKER) (test code = 44 mg/dL 0-14 H 1569) CHLORIDE, RANDOM [id number] 21:30:00 Test Item Value Reference Range Interpretation Comments CHLORIDE URINE (BEAKER) (test code = 96 meq/L 682) Reference Range: No NormalsCREATININE, RANDOM [id number] 21:09:00 Test Item Value Reference Range Interpretation Comments CREATININE URINE (BEAKER) (test 30.6 mg/dL code = 375) Reference Range: No NormalsSODIUM, RANDOM [id number] 21:09:00 Test Item Value Reference Range Interpretation Comments SODIUM URINE (BEAKER) (test code = 90 meq/L 243) Reference Range: No NormalsUREA NITROGEN, RANDOM [id number] 21:09:00 Test Item Value Reference Range Interpretation Comments UREA NITROGEN URINE (BEAKER) (test 232 mg/dL code = 538) Reference Range: No NormalsHEPATITIS PANEL, [id number] 20:39:00 Test Item Value Reference Range Interpretation Comments HEPATITIS A IGM ANTIBODY (BEAKER) Nonreactive Nonreactive (test code = 498) HEPATITIS B CORE IGM ANTIBODY Nonreactive Nonreactive (BEAKER) (test code = 645) HEPATITIS C ANTIBODY (BEAKER) Nonreactive Nonreactive (test code = 367) HEPATITIS B SURFACE ANTIGEN (2) Nonreactive Nonreactive (BEAKER) (test code = 2585) URINALYSIS W/ REFLEX URINE [id number] 20:12:00 Test Item Value Reference Range Interpretation [...] 1584) SOURCE(BEAKER) (test code = 2795) TROPONIN [id number] 19:15:00 Test Item Value Reference Range Interpretation [...] acute neurological disease, and persistent tachyarrhythmia.COMPREHENSIVE METABOLIC [id number] 19:15:00 Test Item Value Reference Range Interpretation [...] S NOT APPLICABLE FOR DIALYSIS PATIEN TS. CREATINE KINASE (CK)2018-10-16 19:13:00 Test Item Value Reference Range Interpretation Comments CREATINE KINASE TOTAL (BEAKER) (test 439 U/L 29-200 H code = 380) SALICYLATE [id number] 19:11:00 Test Item Value Reference Range Interpretation Comments SALICYLATE LEVEL (BEAKER) (test code < mg/dL 15.0-30.0 L = 764) Therapeutic Range: 15.0-30.0 mg/dLToxic: >30.0 mg/dL Lethal: >70.0 mg/dLACETAMINOPHEN [id number] 19:10:00 Test Item Value Reference Range Interpretation Comments ACETAMINOPHEN LEVEL (BEAKER) (test < ug/mL 10.0-30.0 L code = 344) Therapeutic Range: 10.0-30.0 g/mLToxic Levels: >200.0 g/mLPROTHROMBIN [id number] 18:59:00 Test Item Value Reference Range Interpretation [...] mechanical heart valves.CBC W/PLT COUNT & AUTO [id number] 18:52:00 Test Item Value Reference Range Interpretation [...] code = 2801) GLUCOMETER GLUCOSE- LAB USE [id number] 06:59:00 Test Item Value Reference Range Interpretation Comments GLUCOMETER (test code 219 mg/dL 70-[address] JOSE CARLOS DHILLON = GMG) AWAREMeter ID: [id number] tor: [id number] [address] LEACH NG GLUCOMETER GLUCOSE- LAB USE [id number] 04:45:00 Test Item Value Reference Range Interpretation Comments GLUCOMETER (test code = 212 mg/dL 70-100 H Mete r ID: GMG) [id number] tor: [id number]
[2019-12-13 17:01] LABS: Absolute Lymphocytes (CBC) 1.3 K/uL (0.7-4.9); Basophils % 0.9 % (0-1.3); Hematocrit 24.5 % (36.0-45.0); Lymphocytes % 24.6 % (15.3-44.8); MPV 9.6 fL (7.6-11.3); RBC Red Blood Cell Count 2.65 M/uL (3.86-4.86)
--- NOTE | 2019-12-13 17:09 | RAD REPORT ---
EXAM DESCRIPTION: RAD - Chest Single View - 12/13/2019 4:58 pm CLINICAL HISTORY: DYSPNEA Chest pain. COMPARISON: Chest Single View dated 08/15/2019; Chest Single View dated 06/26/2019; Chest Pa And Lat ( 2 Views) dated 02/11/2019; Chest Single View dated 12/22/2018 FINDINGS: Portable technique limits examination quality. The lungs are grossly clear. The heart is upper limit of normal in size. No displaced fractures. IMPRESSION: No acute intrathoracic process suspected.
[2019-12-13 17:20] LABS: Ferritin 371.3 ng/mL (8-388); Potassium 4.4 mmol/L (3.5-5.1)
[2019-12-13 17:27] LABS: Urine Bacteria 20-50 /HPF (<20); Urine Blood 2+ (NEG); Urine Culture Reflex Order REFLEXED; Urine Glucose NEGATIVE (NEG); Urine Mucus 2+ /HPF (NONE SEEN); Urine Protein 2+ (NEG); Urine pH 5.5 (5.0-7.0)
--- NOTE | 2019-12-13 18:08 | ER ---
Nurse's Notes [facility] Name: Emily Barbour Age: 49 yrs Sex: Female : 1970 Arrival Date: 12/13/2019 Time: 16:00 Bed 20 Private MD: Diagnosis: Anemia, unspecified;Dyspnea, unspecified;Chronic kidney disease, stage 4 (severe);Urinary tract infection, site not specified Presentation: 12/12 16:16 Chief complaint: Patient states: low back pain, burning with urination, BLE edema, SOB, sv nausea. Coronavirus screen: Client denies travel out of the [place] in the last 14 days. At this time, the client does not indicate any symptoms associated with coronavirus-19. Ebola Screen: No symptoms or risks identified at this time. Initial Sepsis Screen: Does the patient meet any 2 criteria? HR > 90 bpm. No. Patient's initial sepsis screen is negative. Does the patient have a suspected source of infection? No. Patient's initial sepsis screen is negative. Risk Assessment: Do you want to hurt yourself or someone else? Patient reports no desire to harm self or others. Onset of symptoms was December 12, 2019. 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: 17:07 LMP N/A - Hysterectomy ca1 Historical: - Allergies: 16:19 Benadryl; sv 16:19 metformin; sv 16:19 shrimp; sv 16:19 Tradjenta; sv - Home Meds: 18:57 Cymbalta 30 mg Oral cpDR 1 cap every morning [Active]; pantoprazole 40 mg Oral TbEC 1 ca1 tab 2 times per day [Active]; Toujeo SoloStar 300 unit/mL (1.5 mL) subcutaneous inpn 50 unit every morning [Active]; Humalog 100 unit/mL Sub-Q soln 30 unit three times a day [Active]; amitriptyline 50 mg oral tab 1 tab once daily [Active]; carvedilol 12.5 mg Oral tab 1 tab 2 times per day [Active]; levothyroxine 50 mcg tab 1 tab once daily [Active]; promethazine 25 mg Oral tab 1 tab three times a day [Active]; gabapentin 300 mg oral cap as needed [Active]; Vitamin D Oral daily [Active]; magnesium gluconate 27 mg (500 mg) oral tab twice a day [Active]; Iron CR 325 Oral three times a day [Active]; omega-3 1000 mg daily [Active]; Myrbetriq 50 mg Oral Tb24 1 tab once daily [Active]; Trulicity subcutaneous once wkly [Active]; fenofibrate 160 mg Oral tab 1 tab once daily [Active]; furosemide 40 mg Oral tab 1 tab once daily [Active]; - PMHx: 16:19 Anemia; Hypertension; Diabetes - IDDM; Tendonitis in Elbows; High Cholesterol; Renal sv Disease; St 4; IBS; - PSHx: 16:19 Hysterectomy; Cholecystectomy; Appendectomy; breast reduction; heel; neck fusion; sv - Immunization history:: Adult Immunizations up to date. - Social history:: Smoking status: Patient denies any tobacco usage or history of. - Family history:: not pertinent. - Hospitalizations: : No recent hospitalization is reported. Screenin:43 Abuse screen: Denies threats or abuse. Denies injuries from another. Nutritional ca1 screening: No deficits noted. Tuberculosis screening: No symptoms or risk factors identified. Fall Risk IV access (20 points). Assessment: 16:43 General: Appears in no apparent distress. comfortable, Behavior is calm, cooperative, ca1 appropriate for age. Pain: Complains of pain in low back area Pain began a month ago. Neuro: Level of Consciousness is awake, alert, obeys commands, Oriented to person, place, time, situation. Cardiovascular: Heart tones S1 S2 present Capillary refill < 3 seconds Patient's skin is warm and dry. Rhythm is sinus rhythm. Respiratory: Reports shortness of breath on exertion since 2 weeks Airway is patent Respiratory effort is even, unlabored, Respiratory pattern is regular, symmetrical, Breath sounds are clear bilaterally. Denies cough. GI: Abdomen is round non-distended, Bowel sounds present X 4 quads. Abd is soft and non tender X 4 quads. Reports nausea. : No signs and/or symptoms were reported regarding the genitourinary system. EENT: No signs and/or symptoms were reported regarding the EENT system. Derm: Skin is intact, is healthy with good turgor, Skin is pink, warm \T\ dry. Musculoskeletal: Circulation, motion, and sensation intact. Capillary refill < 3 seconds. 17:50 Reassessment: Patient appears in no apparent distress at this time. Patient and/or ca1 family updated on plan of care and expected duration. Pain level reassessed. Patient is alert, oriented x 3, equal unlabored respirations, skin warm/dry/pink. 18:45 Reassessment: Patient appears in no apparent distress at this time. Patient and/or ca1 family updated on plan of care and expected duration. Pain level reassessed. Patient is alert, oriented x 3, equal unlabored respirations, skin warm/dry/pink. 19:45 Reassessment: Patient appears in no apparent distress at this time. Patient and/or ca1 family updated on plan of care and expected duration. Pain level reassessed. Patient is alert, oriented x 3, equal unlabored respirations, skin warm/dry/pink. Vital Signs: 16:16 BP 139 / 73; Pulse 92; Resp 20; Temp 99.1(O); Pulse Ox 99% on R/A; Height 5 ft. 5 in. sv (165.10 cm); 17:06 BP 133 / 79; Pulse 88; Resp 20 S; Pulse Ox 97% on R/A; ca1 18:00 BP 116 / 57; Pulse 87; Resp 19 S; Pulse Ox 98% on R/A; ca1 18:45 BP 138 / 67; Pulse 86; Resp 20 S; Pulse Ox 100% on R/A; ca1 19:10 BP 131 / 70; Pulse 86; Resp 16; Temp 98.5; Pulse Ox 99% on R/A; rr5 19:45 BP 144 / 73; Pulse 81; Resp 18 S; Pulse Ox 98% on R/A; ca1 ED Course: 16:00 Patient arrived in ED. as 16:11 Destin Snyder MD is Attending Physician. rn 16:15 Quin Freeman, JOCY is Primary Nurse. ca1 16:18 Triage completed. sv 16:19 Arm band placed on. sv 16:42 No provider procedures requiring assistance completed. Initial lab(s) drawn, by de, ca1 sent to lab. Inserted saline lock: 20 gauge in right antecubital area, using aseptic technique. Blood collected. 16:45 Patient has correct armband on for positive identification. Placed in gown. Bed in low ca1 position. Call light in reach. Side rails up X 1. Pulse ox on. NIBP on. Warm blanket given. 16:58 XRAY Chest (1 view) In Process Unspecified. EDMS 17:00 Urine collected: clean catch specimen, cloudy, EKG done, by ED staff, reviewed by 3 Caitlyn TOMPKINS. 18:08 Sachi Dong MD is Hospitalizing Provider. rn 18:15 Patient admitted, IV remains in place. ca1 Administered Medications: No medications were administered Outcome: 18:08 Decision to Hospitalize by Provider. rn 20:09 Admitted to Med/surg accompanied by tech, via wheelchair, room 208, with chart, Report ca1 called to JOCY Gilliam 20:09 Condition: stable 20:09 Instructed on the need for admit. 20:15 Patient left the ED. ca1 Signatures: Dispatcher [employer] EDMS Rachel Murray, RN RN Clara Lee Roman, MD MD rn Herrera, Miracle 3 Joe Robles RN RN rr5 Quin Freeman RN RN ca1 Corrections: (The following items were deleted from the chart) 18:14 17:50 BP 116 / 57; Pulse 87bpm; Resp 19bpm; Spontaneous; Pulse Ox 98% RA; ca1 ca1
--- NOTE | 2019-12-13 18:08 | EDPHYS ---
Physician Documentation [facility] Name: Emily Barbour Age: 49 yrs Sex: Female : 1970 Arrival Date: 12/13/2019 Time: 16:00 Bed 20 Private MD: ED Physician Destin Snyder HPI: 12/12 16:53 This 49 yrs old Female presents to ER via Ambulatory with complaints of rn Edema, Shortness Of Breath, Urinary Problem. 16:53 The patient has shortness of breath at rest, with light activity. Onset: The rn symptoms/episode began/occurred at an unknown time. Duration: The symptoms are intermittent. The patient's shortness of breath is aggravated by exertion, light activity. Severity of symptoms: At their worst the symptoms were mild in the emergency department the symptoms are unchanged. The patient has experienced similar episodes in the past. Reports dyspnea on exertion, feels generalized weakness, + edema, similar symptoms in past, has been due to CKD. Also reports symptoms of dysuria.. 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:07 LMP N/A - Hysterectomy ca1 Historical: - Allergies: 16:19 Benadryl; sv 16:19 metformin; sv 16:19 shrimp; sv 16:19 Tradjenta; sv - Home Meds: 18:57 Cymbalta 30 mg Oral cpDR 1 cap every morning [Active]; pantoprazole 40 mg Oral TbEC 1 ca1 tab 2 times per day [Active]; Toujeo SoloStar 300 unit/mL (1.5 mL) subcutaneous inpn 50 unit every morning [Active]; Humalog 100 unit/mL Sub-Q soln 30 unit three times a day [Active]; amitriptyline 50 mg oral tab 1 tab once daily [Active]; carvedilol 12.5 mg Oral tab 1 tab 2 times per day [Active]; levothyroxine 50 mcg tab 1 tab once daily [Active]; promethazine 25 mg Oral tab 1 tab three times a day [Active]; gabapentin 300 mg oral cap as needed [Active]; Vitamin D Oral daily [Active]; magnesium gluconate 27 mg (500 mg) oral tab twice a day [Active]; Iron CR 325 Oral three times a day [Active]; omega-3 1000 mg daily [Active]; Myrbetriq 50 mg Oral Tb24 1 tab once daily [Active]; Trulicity subcutaneous once wkly [Active]; fenofibrate 160 mg Oral tab 1 tab once daily [Active]; furosemide 40 mg Oral tab 1 tab once daily [Active]; - PMHx: 16:19 Anemia; Hypertension; Diabetes - IDDM; Tendonitis in [place]bows; High Cholesterol; Renal sv Disease; St 4; IBS; - PSHx: 16:19 Hysterectomy; Cholecystectomy; Appendectomy; breast reduction; heel; neck fusion; sv - Immunization history:: Adult Immunizations up to date. - Social history:: Smoking status: Patient denies any tobacco usage or history of. - Family history:: not pertinent. - Hospitalizations: : No recent hospitalization is reported. ROS: 16:53 Constitutional: Negative for fever, chills, and weight loss, Eyes: Negative for injury, rn pain, redness, and discharge, Neck: Negative for injury, pain, and swelling, Cardiovascular: Negative for chest pain, palpitations, and edema, Respiratory: Negative for wheezing, and pleuritic chest pain, Abdomen/GI: Negative for abdominal pain, nausea, vomiting, diarrhea, and constipation, MS/Extremity: Negative for injury and deformity, Skin: Negative for injury, rash, and discoloration, Neuro: Negative for headache, numbness, tingling, and seizure. Exam: 16:53 Constitutional: This is a well developed, well nourished patient who is awake, alert, rn and in no acute distress. Head/Face: Normocephalic, atraumatic. ENT: no stridor Cardiovascular: Regular rate and rhythm. No pulse deficits. Respiratory: No increased work of breathing, no retractions or nasal flaring. Skin: Warm, dry MS/ Extremity: Pulses equal, no cyanosis. Neuro: Awake and alert, GCS 15 Vital Signs: 16:16 BP 139 / 73; Pulse 92; Resp 20; Temp 99.1(O); Pulse Ox 99% on R/A; Height 5 ft. 5 in. sv (165.10 cm); 17:06 BP 133 / 79; Pulse 88; Resp 20 S; Pulse Ox 97% on R/A; ca1 18:00 BP 116 / 57; Pulse 87; Resp 19 S; Pulse Ox 98% on R/A; ca1 18:45 BP 138 / 67; Pulse 86; Resp 20 S; Pulse Ox 100% on R/A; ca1 19:10 BP 131 / 70; Pulse 86; Resp 16; Temp 98.5; Pulse Ox 99% on R/A; rr5 19:45 BP 144 / 73; Pulse 81; Resp 18 S; Pulse Ox 98% on R/A; ca1 MDM: 16:11 Patient medically screened. rn 18:06 Differential diagnosis: Anemia CHF exacerbation, Pneumothorax pulmonary edema. Data rn reviewed: vital signs, nurses notes, lab test result(s), EKG, radiologic studies, plain films, and as a result, I will admit patient. Counseling: I had a detailed discussion with the patient and/or guardian regarding: the historical points, exam findings, and any diagnostic results supporting the discharge/admit diagnosis, lab results, radiology results, the need for further work-up and treatment in the hospital. Admission orders: after a detailed discussion of the patient's condition and case, the admit orders are written by me. ED course: Pt with volume overload, dyspnea and symptomatic anemia, will admit to hospitalist service with consultation of Dr. Cameron. . 12/12 16:29 Order name: CBC with Diff; Complete Time: 17:58 12/12 16:29 Order name: Basic Metabolic Panel; Complete Time: 17:21 12/12 16:29 Order name: Urine Microscopic Only; Complete Time: 17:58 12/12 16:29 Order name: BNP; Complete Time: 17:21 12/12 16:29 Order name: Procalcitonin; Complete Time: 17:58 12/12 16:29 Order name: Ferritin; Complete Time: 17:21 12/12 17:07 Order name: Urine Dipstick--Ancillary (enter results); Complete Time: 17:58 em1 12/12 17:28 Order name: Urine Culture [facility] 12/12 19:39 Order name: Urinalysis [facility] 12/12 19:39 Order name: Basic Metabolic Panel [facility] 12/12 19:39 Order name: Basic Metabolic Panel [facility] 12/12 19:40 Order name: CBC with Automated Diff [facility] 12/12 19:40 Order name: CBC with Automated Diff [facility] 12/12 16:29 Order name: IV Start; Complete Time: 16:42 rn 12/12 16:29 Order name: Urine Dipstick-Ancillary (obtain specimen); Complete Time: 17:00 rn 12/12 16:29 Order name: XRAY Chest (1 view); Complete Time: 17:21 rn 12/12 16:29 Order name: EKG; Complete Time: 16:29 rn 12/12 16:29 Order name: EKG - Nurse/Tech; Complete Time: 16:54 rn 12/12 19:37 Order name: CONS Physician Consult [facility] 12/12 19:39 Order name: Consistent Carb (ADA) [address] [facility] 12/12 19:40 Order name: Magnesium [facility] 12/12 19:40 Order name: Magnesium [facility] 12/12 20:12 Order name: SARS-COV-2 RT PCR [facility] Administered Medications: No medications were administered Disposition: 12/13/19 18:08 Hospitalization ordered by Sachi Dong for Observation. Preliminary diagnosis are Anemia, unspecified, Dyspnea, unspecified, Chronic kidney disease, stage 4 (severe), Urinary tract infection, site not specified. - Bed requested for Telemetry/MedSurg (observation). - Status is Observation. ca1 - Condition is Stable. - Problem is an ongoing problem. - Symptoms are unchanged. Signatures: Dispatcher [employer] [facility] Rachel Murray RN RN sv Woody, Diana, RN RN dw Nieto, Roman, MD MD rn Acob, Cheryl, RN RN ca1 Corrections: (The following items were deleted from the chart) 19:05 16:29 CORONAVIRUS+LAB.[place] ordered. [facility] 19:38 18:08 Hospitalization Ordered by Sachi Dong MD for Observation. Preliminary dw diagnosis is Anemia, unspecified; Dyspnea, unspecified; Chronic kidney disease, stage 4 (severe); Urinary tract infection, site not specified. Bed requested for Telemetry/MedSurg (observation). Status is Observation. Condition is Stable. Problem is an ongoing problem. Symptoms are unchanged. rn 20:15 19:38 12/13/2019 18:08 Hospitalization Ordered by Sachi Dong MD for Observation. ca1 Preliminary diagnosis is Anemia, unspecified; Dyspnea, unspecified; Chronic kidney disease, stage 4 (severe); Urinary tract infection, site not specified. Bed requested for Telemetry/MedSurg (observation). Status is Observation. Condition is Stable. Problem is an ongoing problem. Symptoms are unchanged. dw
--- NOTE | 2019-12-13 19:42 | P.HP ---
Certification for Inpatient Patient admitted to: Observation With expected LOS: <2 Midnights Patient will require the following post-hospital care: None Practitioner: I am a practitioner with admitting privileges, knowledge of patient current condition, hospital course, and medical plan of care. Services: Services provided to patient in accordance with Admission requirements found in Title 42 Section 412.3 of the Code of Federal Regulations <Bowen Gore - Last Filed: 12/13/19 19:43> Patient History Date of Service: 12/13/19 Reason for admission: Congestive heart failure exacerbation History of Present Illness: 49-year-old female with a past medical history of anemia of chronic disease, hypertension, type 2 diabetes mellitus, hyperlipidemia, chronic kidney disease stage 4 presents to the emergency room complaining of edema in the lower extremities, shortness of breath in urinary problems. In the emergency room patient is alert and oriented x4. She is in no distress. Patient is pleasant and cooperative. UA shows +1 leukocyte esterase and white blood cells of 20-50. Prior urine culture from May of 2019 which showed E coli that was meyer sensitive. Creatinine of 4.54 with a GFR of 10. BNP of 464 and a clear chest x-ray but patient is complaining of shortness of breath. Dr. Cameron saw patient in the ER and wants to diurese patient. Patient will be placed in observation and diuresed Overnite. Patient states that 2 or 3 times a year she has to come in and have extra fluid taken off. States that she does monitor her fluid intake at home. Home medications list reviewed: No - Past Medical/Surgical History Diabetic: Yes -: Hypertension -: Hypertriglyceridemia -: Diabetes mellitus type 2 -: Diabetic neuropathy -: Anemia of chronic disease -: Recurrent UTI -: Chronic renal disease, stage IV -: Irritable bowel syndrome-diarrhea -: Osteoarthritis -: Former smoker -: Cholecystectomy -: Appendectomy -: Hysterectomy -: Tubal ligation -: Breast reduction -: Adenoidectomy -: bone spurs removed -: neckm fusion surgery Psychosocial/ Personal History: Patient is for 30 years, she has 3 children, she works at [employer]. - Family History Father -: Stroke, Cancer Brother -: Heart disease Sister Notes: Thyroid Problems Mother -: Heart disease, Diabetes - Social History Smoking Status: Former smoker Alcohol use: Yes CD- Drugs: No Caffeine use: Yes Place of Residence: Home <Bowen Gore - Last Filed: 12/13/19 19:43> Date of Service: 12/13/19 <DongSachi Julio César - Last Filed: 12/15/19 00:06> Allergies metformin Allergy (Verified 12/22/18 22:15) Unknown diphenhydramine HCl [From Benadryl] Adverse Reaction (Verified 12/22/18 22:15) Rash linagliptin [From Tradjenta] Adverse Reaction (Verified 12/22/18 22:15) weight loss TRIGENTA Adverse Reaction (Severe, Uncoded 08/22/16 19:57) Nausea/Vomiting Home Medications: Amitriptyline HCl 50 mg PO BEDTIME 12/23/18 Aspirin 81 mg PO DAILY 12/23/18 Cholecalciferol (Vitamin D3) [Vitamin D3] 1,000 iu PO DAILY 12/23/18 Insulin Lispro [Humalog] 30 unit SQ TIDWM 12/23/18 Levothyroxine [Synthroid*] 0.05 mg PO BEDTIME 12/23/18 Magnesium Oxide [Magnesium] 1,000 mg PO BID 12/23/18 Mirabegron [Myrbetriq] 50 mg PO DAILY 12/23/18 carvediloL [Carvedilol] 12.5 mg PO BID 12/23/18 Dulaglutide [Trulicity] 1.5 mg SQ SEECOM 03/25/19 Ferrous Sulfate [Ferrous Sulfate*] 325 mg PO TID 06/26/19 Insulin Glargine,Hum.rec.anlog [Toujeo Max Solostar] 50 unit SQ DAILY 06/26/19 [place]-3 Fatty Acids/Fish Oil [Fish Oil 1,000 mg Softgel] 1,000 mg PO DAILY 06/26/19 Duloxetine [Cymbalta *] 30 mg PO DAILY 12/14/19 Fenofibrate [Tricor*] 160 mg PO DAILY 12/14/19 Furosemide [Lasix*] 40 mg PO DAILY 12/14/19 Gabapentin 300 mg PO TIDP PRN 12/14/19 Pantoprazole [Protonix Tab*] 40 mg PO BID 12/14/19 Promethazine Tab [Phenergan*] 25 mg PO TIDP PRN 12/14/19 Review of Systems General: As per HPI Eyes: Unremarkable ENT: Unremarkable Respiratory: Shortness of Breath, As per HPI Cardiovascular: Unremarkable Gastrointestinal: Unremarkable Genitourinary: Dysuria, As per HPI Musculoskeletal: Unremarkable Integumentary: Unremarkable Neurological: Unremarkable Lymphatics: Unremarkable <Bowen Gore - Last Filed: 12/13/19 19:43> Physical Examination - Vital Signs Temperature: 99.1 F Blood Pressure: 133/79 Pulse: 87 Respirations: 20 Pulse Ox (%): 98 (RA) - Physical Exam General: Alert, In no apparent distress, Oriented x3, Obese (Morbidly) HEENT: Atraumatic, Normocephalic, PERRLA, Mucous membr. moist/pink Neck: Supple, Other (Trachea midline) Respiratory: Clear to auscultation bilaterally, Diminished, Other (Shallow breathing) Cardiovascular: Normal pulses, Normal S1 S2, Edema (Bilateral lower extremity) Capillary refill: <2 Seconds Gastrointestinal: Normal bowel sounds, Soft and benign, Non-distended Musculoskeletal: No clubbing, No swelling, No contractures, No erythema Integumentary: No rashes, No breakdown, No significant lesion, No tenderness/swelling Neurological: Normal gait, Normal speech, Normal strength at 5/5 x4 extr, Normal tone - Studies Laboratory Data (last 24 hrs) 12/13/19 16:47: Sodium 141, Potassium 4.4, BUN 52 H, Creatinine 4.54 H, Glucose 112 H 12/13/19 16:47: WBC 5.2, Hgb 8.0 L, Hct 24.5 L, Plt Count 190 <Bowen Gore - Last Filed: 12/13/19 19:43> - Studies Laboratory Data (last 24 hrs) 12/14/19 05:53: Sodium 139, Potassium 3.9, BUN 50 H, Creatinine 4.22 H, Glucose 105, Uric Acid 8.9 H, Phosphorus 4.6, Magnesium 1.8, Total Bilirubin 0.2, AST 56 H, ALT 15, Alkaline Phosphatase 35 L 12/14/19 05:53: WBC 4.1 L D, Hgb 7.6 L*, Hct 22.2 L, Plt Count 160 12/14/19 05:00: Uric Acid Cancelled, Phosphorus Cancelled, Total Bilirubin Cancelled, AST Cancelled, ALT Cancelled, Alkaline Phosphatase Cancelled <Sachi Dong - Last Filed: 12/15/19 00:06> Assessment and Plan - Plan Impression: Congestive heart failure with acute exacerbation: Anemia of chronic disease: Urinary tract infection: Type 2 diabetes mellitus: Chronic kidney disease, stage IV: Hyperlipidemia: Plan: Congestive heart failure with acute exacerbation: Likely chronic and diastolic. BNP elevated to 464 on admission. Will gently diurese Overnite. Will start IV Lasix at 40 mg b.i.d.. Continuous telemetry. Echocardiogram from June of 2019 shows an EF of 74%. Anemia of chronic disease: Patient's hemoglobin on admission was 8.0 with a hematocrit of 24.5. Patient usually runs between 7.0-10.5 on her hemoglobin and between 20-32 on the hematocrit. Currently no need for transfusion. Will monitor daily labs. Urinary tract infection: UA is showing +1 leukocyte esterase, white blood cells 20-50 and patient is symptomatic. Will start IV Rocephin 1 g Q 24 hr daily based on prior urine culture from June of 2019. Will await urine culture results. Type 2 diabetes mellitus: Accu-Cheks a.c. HS. Continue moderate sliding scale insulin. Diabetic diet Chronic kidney disease, stage IV: Nephrology following-. Will gently diurese as above. Will monitor creatinine levels. Hyperlipidemia: Will resume home medications once verified. Discharge Plan: Home Plan to discharge in: 48 Hours - Advance Directives Does patient have a Living Will: No Does patient have a Durable POA for Healthcare: No - Code Status/Comfort Care Code Status Assessed: Yes Time Spent Managing Pts Care (In Minutes): 55 <Bowen Gore - Last Filed: 12/13/19 19:43> Date of Service: 12/13/19 SUBJECTIVE: PATIENT ADMITTED FOR WORSENING RENAL FUNCTION PER NEPHROLOGY. PATIENT MAY NEED HEMODIALYSIS OBJECTIVE: VITALS: REVIEWED CARDIOVASCULAR EXAM: REGULAR RATE RHYTHM NO MURMUR LUNGS: CLEAR BILATERALLY ABDOMEN: SOFT, NOT DISTENDED NONTENDER BOWEL SOUNDS POSITIVE ASSESSMENT: 1. ACUTE ON CHRONIC RENAL SUFFICIENCY 2. TYPE 2 DIABETES PLAN: 1. CONTINUE WITH IV DIURETICS 2. MONITOR BLOOD SUGAR AND BLOOD PRESSURE CONTROL 3. NEPHROLOGY CONSULTATION APPRECIATED 4. POSSIBLE HEMODIALYSIS 5. GI AND DVT PROPHYLAXIS <Sachi Dong - Last Filed: 12/15/19 00:06>
[2019-12-13] MEDS: INSULIN -REGULAR HUMAN 50 UNIT/0.5 ML ML SQ SCH (21:00)
[2019-12-13] MEDS: MORPHINE 2 MG/ML SYR IV PRN (22:34)
--- NOTE | 2019-12-13 22:49 | P.CNS ---
Date of Consult: 12/13/19 Reason for Consult: OMAR/ CKD Requesting Physician: Bowen Gore Chief Complaint: Congestive heart failure exacerbation History of Present Illness: 49-year-old female with a past medical history of anemia of chronic disease, hypertension, type 2 diabetes mellitus, hyperlipidemia, chronic kidney disease stage 4 presents to the emergency room complaining of edema in the lower extremities, shortness of breath in urinary problems. 16:53 This 49 yrs old Female presents to ER via Ambulatory with complaints of rn Edema, Shortness Of Breath, Urinary Problem. 16:53 The patient has shortness of breath at rest, with light activity. Onset: The rn symptoms/episode began/occurred at an unknown time. Duration: The symptoms are intermittent. The patient's shortness of breath is aggravated by exertion, light activity. Severity of symptoms: At their worst the symptoms were mild in the emergency department the symptoms are unchanged. The patient has experienced similar episodes in the past. Reports dyspnea on exertion, feels generalized weakness, + edema, similar symptoms in past, has been due to CKD. Also reports symptoms of dysuria.. Allergies metformin Allergy (Verified 12/22/18 22:15) Unknown diphenhydramine HCl [From Benadryl] Adverse Reaction (Verified 12/22/18 22:15) Rash linagliptin [From Tradjenta] Adverse Reaction (Verified 12/22/18 22:15) weight loss TRIGENTA Adverse Reaction (Severe, Uncoded 08/22/16 19:57) Nausea/Vomiting Home medications list reviewed: Yes Home Medications: Amitriptyline HCl 50 mg PO BEDTIME 12/23/18 Aspirin 81 mg PO DAILY 12/23/18 Cholecalciferol (Vitamin D3) [Vitamin D3] 1,000 iu PO DAILY 12/23/18 Insulin Lispro [Humalog] 30 unit SQ TIDWM 12/23/18 Levothyroxine [Synthroid*] 0.05 mg PO BEDTIME 12/23/18 Magnesium Oxide [Magnesium] 1,000 mg PO BID 12/23/18 Mirabegron [Myrbetriq] 50 mg PO DAILY 12/23/18 carvediloL [Carvedilol] 12.5 mg PO BID 12/23/18 Dulaglutide [Trulicity] 1.5 mg SQ SEECOM 03/25/19 Ferrous Sulfate [Ferrous Sulfate*] 325 mg PO TID 06/26/19 Insulin Glargine,Hum.rec.anlog [[place]ou[place] Max Solostar] 50 unit SQ DAILY 06/26/19 [place]-3 Fatty Acids/Fish Oil [Fish Oil 1,000 mg Softgel] 1,000 mg PO DAILY 06/26/19 Duloxetine [Cymbalta *] 30 mg PO DAILY 12/14/19 Fenofibrate [Tricor*] 160 mg PO DAILY 12/14/19 Furosemide [Lasix*] 40 mg PO DAILY 12/14/19 Gabapentin 300 mg PO TIDP PRN 12/14/19 Pantoprazole [Protonix Tab*] 40 mg PO BID 12/14/19 Promethazine Tab [Phenergan*] 25 mg PO TIDP PRN 12/14/19 - Past Medical/Surgical History Diabetic: Yes -: Hypertension -: Hypertriglyceridemia -: Diabetes mellitus type 2 -: Diabetic neuropathy -: Anemia of chronic disease -: Recurrent UTI -: Chronic renal disease, stage IV -: Irritable bowel syndrome-diarrhea -: Osteoarthritis -: Former smoker -: Cholecystectomy -: Appendectomy -: Hysterectomy -: Tubal ligation -: Breast reduction -: Adenoidectomy -: bone spurs removed -: neckm fusion surgery Psychosocial/ Personal History: Patient is for 30 years, she has 3 children, she works at [employer]. - Family History Father Medical History: Stroke, Cancer Brother Medical History: Heart disease Sister Notes: Thyroid Problems Mother Medical History: Heart disease, Diabetes - Social History Smoking Status: Former smoker Alcohol use: Yes CD- Drugs: No Caffeine use: Yes Place of Residence: Home Review of Systems 10-point ROS is otherwise unremarkable General: Weakness, Malaise Respiratory: Shortness of Breath, SOB with Excertion Cardiovascular: Edema Genitourinary: Dysuria Physical Examination Temp Pulse Resp BP Pulse Ox 99.1 F 87 18 133/79 98 12/13/19 20:04 12/13/19 20:04 12/13/19 22:34 12/13/19 20:04 12/13/19 20:04 General: Oriented x3, Cooperative HEENT: Atraumatic Neck: Supple, JVD distended Respiratory: Clear to auscultation bilaterally, Diminished Cardiovascular: Regular rate/rhythm, Edema Gastrointestinal: Soft and benign, Non-distended Musculoskeletal: No clubbing, No contractures Integumentary: No rashes, No cyanosis Laboratory Data (last 24 hrs) 12/13/19 16:47: Sodium 141, Potassium 4.4, BUN 52 H, Creatinine 4.54 H, Glucose 112 H 12/13/19 16:47: WBC 5.2, Hgb 8.0 L, Hct 24.5 L, Plt Count 190 Imagings Data: EXAM DESCRIPTION: RAD - Chest Single View - 12/13/2019 4:58 pm CLINICAL HISTORY: DYSPNEA Chest pain. COMPARISON: Chest Single View dated 08/15/2019; Chest Single View dated 06/26/2019; Chest Pa And Lat (2 Views) dated 02/11/2019; Chest Single View dated 12/22/2018 FINDINGS: Portable technique limits examination quality. The lungs are grossly clear. The heart is upper limit of normal in size. No displaced fractures. IMPRESSION: No acute intrathoracic process suspected. Conclusions/Impression: A/ OMAR may be due to CRS vs progressive CKD. Hypocalcemia CKD IV with proteinuria HTN with CKD/ CHF. Diastolic CHF, A/C. DM II with CKD. Anemia in CKD CANDI/ Secondary HyperPTH. Hypocalcemia. Acute cystitis P/ Continue current POC and Medications Start IV furosemide. Give Procrit. Continue abx. Follow up urine culture. No NSAIDs. AM labs. Daily weight. Thank you kindly for the consultation.
[2019-12-14] MEDS: HEPARIN 5000 UNIT/ML 1 ML VIAL SQ SCH ×3 (00:50→16:51)
[2019-12-14] MEDS: ASCORBIC ACID 500 MG TABLET PO SCH ×2 (00:51→11:50)
[2019-12-14] MEDS: CEFTRIAXONE/SWI 1gm 1 GM/10 ML SYR IV SCH ×2 (01:18→20:21)
[2019-12-14 04:42] VITALS: BMI 38.4
[2019-12-14] MEDS: MORPHINE 2 MG/ML SYR IV PRN ×4 (05:36→20:21)
[2019-12-14 06:27] LABS: Absolute Lymphocytes (CBC) 1.1 K/uL (0.7-4.9); Basophils % 0.6 % (0-1.3); Hematocrit 22.2 % (36.0-45.0); Lymphocytes % 28.1 % (15.3-44.8); MPV 9.4 fL (7.6-11.3); RBC Red Blood Cell Count 2.44 M/uL (3.86-4.86)
[2019-12-14 06:28] LABS: Albumin 3.2 g/dL (3.4-5.0); Bilirubin Direct 0.1 mg/dL (0-0.2); Bilirubin Total 0.2 mg/dL (0.2-1.0); Magnesium 1.8 mg/dL (1.8-2.4); Phosphorus 4.6 mg/dL (2.5-4.9); Potassium 3.9 mmol/L (3.5-5.1); Uric Acid 8.9 mg/dL (2.6-6.0)
[2019-12-14] MEDS: INSULIN -REGULAR HUMAN 50 UNIT/0.5 ML ML SQ SCH ×4 (07:30→21:00)
--- NOTE | 2019-12-14 07:55 | EKG ---
Test Date: 2019-12-13 Test Time: 16:56:41 Horticultural Farmworker: CHANEL MEASUREMENT RESULTS: Intervals: Rate: 88 MT: 128 QRSD: 144 QT: 420 QTc: 508 [place]: P: 39 MT: 128 QRS: -71 T: 42 INTERPRETIVE STATEMENTS: Normal sinus rhythm Right bundle branch block Left anterior fascicular block Bifascicular block Abnormal ECG Compared to ECG 08/15/2019 14:12:21 Left anterior fascicular block now present Bifascicular block now present Left-axis deviation no longer present Electronically Signed On 12-14-19 07:53:20 CDT by Ankit Simmons
[2019-12-14] MEDS: FUROSEMIDE 40 MG/4 ML VIAL IV SCH ×2 (08:32→16:51)
[2019-12-14] MEDS: VITAMIN D 5,000 UNIT CAP PO SCH (08:33)
[2019-12-14] MEDS: CALCITROL 0.25 MCG CAP PO SCH (08:33)
[2019-12-14] MEDS: DOCUSATE NA 100 MG CAP PO SCH ×2 (08:34→20:21)
[2019-12-14] MEDS ORDERED: CEFTRIAXONE/SWI 1gm 1 GM/10 ML SYR IV SCH (09:00)
[2019-12-14] MEDS ORDERED: EPOETIN ALFA-EPBX 10,000 UNIT/ML VIAL SQ SCH (09:00)
[2019-12-14 19:45] LABS: Urine Appearance CLEAR; Urine Bilirubin NEGATIVE (NEG); Urine Blood 1+ (NEG); Urine Color YELLOW; Urine Glucose NEGATIVE (NEG); Urine Protein 2+ (NEG); Urine Urobilinogen 0.2 mg/dL (0.2-1.0); Urine pH 5.5 (5.0-7.0)
[2019-12-14 20:32] LABS: Urine Microscopic Reflex ORDER UMIC
[2019-12-14 20:38] LABS: Urine Bacteria <20 /HPF (<20); Urine Culture Reflex Order REFLEXED
--- NOTE | 2019-12-14 21:44 | P.PN ---
Date of Service: 12/14/19 Vital Signs Temp Pulse Resp BP Pulse Ox 96.6 F L 82 14 132/58 L 78 L 12/14/19 16:00 12/14/19 16:51 12/14/19 20:21 12/14/19 16:51 12/14/19 20:21 Medications Ascorbic Acid (Vitamin C) 500 mg PO Q12H [facility] Stop: 01/12/20 23:01 Last Admin: 12/14/19 11:50 Dose: 500 mg Documented by: Calcitriol (Rocaltrol) 0.5 mcg PO DAILY JOSÉ ANTONIO Stop: 01/13/20 09:01 Last Admin: 12/14/19 08:33 Dose: 0.5 mcg Documented by: Cholecalciferol (Vitamin D 5,000 Iu Cap) 5,000 unit PO DAILY [facility] Stop: 01/13/20 09:01 Last Admin: 12/14/19 08:33 Dose: 5,000 unit Documented by: Docusate Sodium (Colace Cap) 100 mg PO BID [facility] Stop: 01/13/20 09:01 Last Admin: 12/14/19 20:21 Dose: 100 mg Documented by: Furosemide (Lasix) 40 mg IV BIDL [facility] Stop: 01/13/20 09:01 Last Admin: 12/14/19 16:51 Dose: 40 mg Documented by: Heparin Sodium (Porcine) (Heparin 5,000 Units/Ml) 5,000 unit SQ Q8HR [facility] Stop: 01/13/20 01:01 Last Admin: 12/14/19 16:51 Dose: 5,000 unit Documented by: Ceftriaxone Sodium/Sodium Chloride (Rocephin 1 Gm/10 Ml Swi Ivp) 1 gm in 10 mls @ 200 mls/hr IV BEDTIME [facility]; Protocol Stop: 01/13/20 02:01 Last Admin: 12/14/19 20:21 Dose: 10 mls Documented by: Insulin Human Regular (Novolin -R) 0 unit SQ ACHS [facility]; Protocol Stop: 01/12/20 21:01 Last Admin: 12/14/19 16:20 Dose: Not Given Documented by: Morphine Sulfate (Morphine Sulfate) 2 mg IV Q4H PRN PRN Reason: Pain scale 5-7 (Moderate) Stop: 01/12/20 21:28 Last Admin: 12/14/19 20:21 Dose: 2 mg Documented by: Sodium Chloride (Normal Saline Flush) 10 ml IV BID JOSÉ ANTONIO Stop: 01/12/20 21:01 Last Admin: 12/14/19 20:22 Dose: 10 ml Documented by: Lab Results (last 24 hrs) 12/14/19 07:48: POC Glucose 111 12/14/19 05:53: Sodium 139, Potassium 3.9, Chloride 110 H, Carbon Dioxide 24, BUN 50 H, Creatinine 4.22 H, Estimated GFR 11 L, Glucose 105, Uric Acid 8.9 H, Calcium 8.0 L, Phosphorus 4.6, Magnesium 1.8, Total Bilirubin 0.2, Direct Bilirubin 0.1, AST 56 H, ALT 15, Alkaline Phosphatase 35 L, NT-Pro-B Natriuret Pep 442 H, Serum Total Protein 8.0, Albumin 3.2 L, Globulin 4.8 H, Albumin/Globulin Ratio 0.7 L 12/14/19 05:53: WBC 4.1 L D, RBC 2.44 L, Hgb 7.6 L*, Hct 22.2 L, MCV 90.7, MCH 31.1, MCHC 34.3, RDW 14.9, Plt Count 160, MPV 9.4, Neutrophils % 61.9, Lymphocytes % 28.1, Monocytes % 5.9, Eosinophils % 3.5, Basophils % 0.6, Absolute Neutrophils 2.5, Absolute Lymphocytes 1.1, Absolute Monocytes 0.2, Abs olute Eosinophils 0.1, Absolute Basophils 0.0 12/14/19 05:00: Uric Acid Cancelled, Phosphorus Cancelled, Total Bilirubin Cancelled, Direct Bilirubin Cancelled, AST Cancelled, ALT Cancelled, Alkaline Phosphatase Cancelled, NT-Pro-B Natriuret Pep Cancelled, Serum Total Protein Cancelled, Albumin Cancelled, Globulin Cancelled, Albumin/Globulin Ratio Cancelled Assessment/ Plan: Nephrology CPS stable without CP or SOB. Feeling better today. No acute events overnight. Vitals, medications, blood work and imaging reviewed in the chart. General: Oriented x3, Cooperative HEENT: Atraumatic Neck: Supple, JVD distended Respiratory: Clear to auscultation bilaterally, Diminished Cardiovascular: Regular rate/rhythm, Edema Gastrointestinal: Soft and benign, Non-distended Musculoskeletal: No clubbing, No contractures Integumentary: No rashes, No cyanosis Laboratory Data (last 24 hrs) 12/13/19 16:47: Sodium 141, Potassium 4.4, BUN 52 H, Creatinine 4.54 H, Glucose 112 H 12/13/19 16:47: WBC 5.2, Hgb 8.0 L, Hct 24.5 L, Plt Count 190 Imagings Data: EXAM DESCRIPTION: RAD - Chest Single View - 12/13/2019 4:58 pm CLINICAL HISTORY: DYSPNEA Chest pain. COMPARISON: Chest Single View dated 08/15/2019; Chest Single View dated 06/26/2019; Chest Pa And Lat (2 Views) dated 02/11/2019; Chest Single View dated 12/22/2018 FINDINGS: Portable technique limits examination quality. The lungs are grossly clear. The heart is upper limit of normal in size. No di splaced fractures. IMPRESSION: No acute intrathoracic process suspected. Conclusions/Impression: A/ OMAR may be due to CRS vs progressive CKD. Hypocalcemia CKD IV with proteinuria HTN with CKD/ CHF. Diastolic CHF, A/C. DM II with CKD. Anemia in CKD CANDI/ Secondary HyperPTH. Hypocalcemia. Acute cystitis P/ Continue current POC and Medications Continue IV furosemide. Give Procrit prn. Continue abx. Follow up urine culture. No NSAIDs. AM labs. Daily weight.
--- NOTE | 2019-12-15 00:08 | P.PN ---
Subjective Date of Service: 12/14/19 Subjective: Improving PATIENT STATES SHE FEELS BETTER. SHE SAYS SHE HAS BEEN URINATING QUITE FREQUENTLY AND HAS PUT OUT A LOT OF URINE OUTPUT. RESPIRATORY STATUS IS STABLE Review of Systems 10-point ROS is otherwise unremarkable Physical Examination - Vital Signs Temperature: 97.0 F Blood Pressure: 140/61 Pulse: 83 Respirations: 14 Pulse Ox (%): 78 - Physical Exam General: Alert, In no apparent distress, Oriented x3 Respiratory: Clear to auscultation bilaterally, Normal air movement Cardiovascular: Regular rate/rhythm, Normal S1 S2, No murmurs Gastrointestinal: Normal bowel sounds, Soft and benign, Non-distended, No tenderness Musculoskeletal: No clubbing, No tenderness, Swelling Neurological: Normal speech, Normal tone, Normal affect Lymphatics: No axilla or inguinal lymphadenopathy - Studies Laboratory Data (last 24 hrs) 12/14/19 05:53: Sodium 139, Potassium 3.9, BUN 50 H, Creatinine 4.22 H, Glucose 105, Uric Acid 8.9 H, Phosphorus 4.6, Magnesium 1.8, Total Bilirubin 0.2, AST 56 H, ALT 15, Alkaline Phosphatase 35 L 12/14/19 05:53: WBC 4.1 L D, Hgb 7.6 L*, Hct 22.2 L, Plt Count 160 12/14/19 05:00: Uric Acid Cancelled, Phosphorus Cancelled, Total Bilirubin Cancelled, AST Cancelled, ALT Cancelled, Alkaline Phosphatase Cancelled Medications List Reviewed: Yes Assessment & Plan - Problems (Diagnosis) (1) Acute kidney injury superimposed on CKD Onset Date: 09/05/17 Current Visit: No Status: Acute (2) Dyspnea Onset Date: 07/20/17 Current Visit: No Status: Acute Qualifiers: Dyspnea type: shortness of breath Qualified Code(s): R06.02 - Shortness of breath; R06.00 - Dyspnea, unspecified; R06.01 - Orthopnea (3) CHF (congestive heart failure) Onset Date: 07/20/17 Current Visit: No Status: Chronic Qualifiers: Heart failure type: diastolic Heart failure chronicity: chronic Qualified Code(s): I50.32 - Chronic diastolic (congestive) heart failure (4) Diabetes mellitus Onset Date: 07/20/17 Current Visit: No Status: Chronic Qualifiers: (5) Obstructive sleep apnea Current Visit: No Status: Chronic (6) GERD (gastroesophageal reflux disease) Onset Date: 07/20/17 Current Visit: No Status: Suspected Qualifiers: Esophagitis presence: esophagitis presence not specified Qualified Code(s): K21.9 - Gastro-esophageal reflux disease without esophagitis - Plan PLAN: 1. CONTINUE WITH IV DIURETICS 2. MONITOR RENAL FUNCTION CLOSELY 3. APPRECIATE NEPHROLOGY CONSULTATION 4. MONITOR ELECTROLYTES CLOSELY 5. STRICT BLOOD PRESSURE AND BLOOD SUGAR CONTROL 6. GI AND DVT PROPHYLAXIS Discharge Plan: Home Plan to discharge in: Greater than 2 days - Advance Directives Does patient have a Living Will: No Does patient have a Durable POA for Healthcare: No - Code Status/Comfort Care Code Status Assessed: Yes Code Status: Full Code Critical Care: No Time Spent Managing PTS Care (In Minutes): 30
[2019-12-15] MEDS: ASCORBIC ACID 500 MG TABLET PO SCH ×3 (00:41→23:53)
[2019-12-15] MEDS: HEPARIN 5000 UNIT/ML 1 ML VIAL SQ SCH ×4 (00:41→23:52)
[2019-12-15] MEDS: MORPHINE 2 MG/ML SYR IV PRN ×3 (02:39→11:27)
[2019-12-15 06:12] LABS: Absolute Lymphocytes (CBC) 1.2 K/uL (0.7-4.9); Basophils % 0.9 % (0-1.3); Hematocrit 23.6 % (36.0-45.0); Lymphocytes % 25.1 % (15.3-44.8); MPV 9.2 fL (7.6-11.3); RBC Red Blood Cell Count 2.58 M/uL (3.86-4.86)
[2019-12-15 06:33] LABS: Magnesium 1.7 mg/dL (1.8-2.4); Phosphorus 5.6 mg/dL (2.5-4.9); Potassium 4.4 mmol/L (3.5-5.1)
[2019-12-15] MEDS: INSULIN -REGULAR HUMAN 50 UNIT/0.5 ML ML SQ SCH ×4 (07:30→20:23)
[2019-12-15] MEDS: FUROSEMIDE 40 MG/4 ML VIAL IV SCH ×2 (08:19→16:30)
[2019-12-15] MEDS: DOCUSATE NA 100 MG CAP PO SCH ×2 (08:20→20:13)
[2019-12-15] MEDS: CALCITROL 0.25 MCG CAP PO SCH (08:20)
[2019-12-15] MEDS: VITAMIN D 5,000 UNIT CAP PO SCH (08:20)
[2019-12-15] MEDS ORDERED: MAGNESIUM SULFATE 1 gm IVPB 1 GM/100 ML BAG IV ONE (09:00)
[2019-12-15 10:49] LABS: Anisocytosis 1+; Blood Morphology Comment NOTED (NOT SEEN); Platelet Estimate ADEQ
[2019-12-15 10:50] LABS: Hypochromasia 1+; Polychromasia SLIGHT
[2019-12-15] MEDS ORDERED: GABAPENTIN 300 MG CAP PO PRN (11:38)
--- NOTE | 2019-12-15 11:47 | P.PN ---
Subjective Date of Service: 12/15/19 Primary Care Provider: Dr. Cameron Chief Complaint: Congestive heart failure exacerbation Subjective: Doing well Physical Examination - Vital Signs Temperature: 98.7 F Blood Pressure: 135/62 Pulse: 88 Respirations: 18 Pulse Ox (%): 95 - Physical Exam General: Alert, Cooperative HEENT: Atraumatic Neck: Supple Respiratory: Clear to auscultation bilaterally, Normal air movement Cardiovascular: Normal pulses, Regular rate/rhythm Gastrointestinal: Normal bowel sounds, Soft and benign, Non-distended Neurological: Normal speech, Normal strength at 5/5 x4 extr, Normal tone, Normal affect - Studies Medications List Reviewed: Yes Assessment & Plan Discharge Plan: Home Plan to discharge in: Greater than 2 days Physician Review Additional Text: Impression: Acute on chronic renal disease stage 5 suspect progressive CKD Hypertension Acute on chronic diastolic CHF Diabetes mellitus type 2 insulin-dependent Anemia of chronic disease Secondary hyperparathyroidism with hypocalcemia Possible Acute cystitis Hypothyroidism Hyperlipidemia GERD Plan: Acute on chronic renal disease stage 5 suspect progressive CKD: Continue current medications. Home medications restarted. Continue IV Lasix due to acute on chronic diastolic CHF. Renal function still compromise. Suspect progressive CKD. Await further recommendations from nephrology. Patient may require setup of outpatient dialysis. Will discuss further with nephrology. Hypertension: Continue home medication. May need to adjust for better control. Acute on chronic diastolic CHF: Continue IV diuretic therapy. Continue fluid restriction. Will monitor closely. Diabetes mellitus type 2 insulin-dependent: Continue Accu-Cheks and sliding scale. Will provide basal insulin. Anemia of chronic disease: Continue iron supplementation. Continue Procrit. Maintain hemoglobin above 8.0. Secondary hyperparathyroidism with hypocalcemia: Continue with Nephrology recommendations. Possible Acute cystitis: Urine culture shows mixed alexei. Pro calcitonin negative. Doubt cystitis. Will discontinue antibiotic therapy. Hypothyroidism: Continue home medication Hyperlipidemia: Continue home medication GERD: Continue home medication Time Spent Managing Pts Care (In Minutes): 55
[2019-12-15] MEDS: FERROUS SULFATE 325 MG TAB PO SCH ×2 (13:45→20:13)
[2019-12-15] MEDS: PANTOPRAZOLE 40MG TABLET PO SCH (16:30)
[2019-12-15] MEDS: HYDROCODONE/APAP 7.5/325 MG TAB PO PRN (16:59)
--- NOTE | 2019-12-15 20:09 | PN ---
Date of Progress Note: 12/15/2019 Subjective: Patient is seen at bedside. No events reported. The patient states that her breathing has improved, but still feels somewhat tight. She is continued on diuresis with Lasix. Her lower ex tremity edema has shown significant improvement. Objective: Vital Signs: Blood pressure is 142/68, pulse 82, temperature 98.6. Input and output palacios s not appear to be accurately measured, only 750 mL of urine output have been noted. General: Awake. No acute distress. Heart: Regular rate and rhythm. No murmurs, rubs, or gallops. Lungs: Diminished at bases. No crepitations noted. Abdomen: Soft. Extremities: No significant edema. Laboratory Data: Hemoglobin 8.1, hematocrit 23.6. Serum chemistry; sodium 137, potassium 4.2, chlor hung 104, CO2 26, BUN 33, creatinine 4.41, glucose 146, phosphorus 5.6, magnesium 1.7. BNP 467. Current Medications: Reviewed. Of note, the patient on calcitriol, Lasix 40 mg IV b.i.d. Remainder of medications were reviewed. Impression: 1.Acute kidney injury on chronic kidney disease in the setting of cardiorenal syndrome. 2.Acute suspected diastolic congestive heart failure. 3.Electrolyte abnormalities. 4.Urinary tract infection. Plan: Continue diuresis. Routine monitoring function. Avoid NSAIDs and contrast. The patient at this point is not euvolemic. We will continue monitoring parameters. However, electr olyte status is stable. Volume status is improving. She denies any signs of uremia. We will continue to assess daily with the patient needing dialysis prior to discharge. SE/MODL Voice ID: [id number] Report ID: [id number]
[2019-12-15] MEDS: CEFTRIAXONE/SWI 1gm 1 GM/10 ML SYR IV SCH (20:13)
[2019-12-15] MEDS: AMITRIPTYLINE 50 MG TAB PO SCH (20:13)
[2019-12-15] MEDS: carvediloL 12.5 MG TAB PO SCH (20:13)
[2019-12-15] MEDS: MAGNESIUM OXIDE 1000 MG PO SCH (20:23)
[2019-12-15] MEDS ORDERED: AMITRIPTYLINE HCL 50 MG PO SCH (21:00)
[2019-12-16] MEDS: HYDROCODONE/APAP 7.5/325 MG TAB PO PRN ×2 (04:01→14:33)
[2019-12-16 06:29] LABS: Potassium 4.5 mmol/L (3.5-5.1)
[2019-12-16] MEDS ORDERED: LEVOTHYROXINE SOD 0.05 MG TABLET PO SCH (07:30)
[2019-12-16] MEDS: INSULIN -REGULAR HUMAN 50 UNIT/0.5 ML ML SQ SCH ×4 (07:30→20:25)
[2019-12-16] MEDS: FUROSEMIDE 40 MG/4 ML VIAL IV SCH ×2 (07:58→16:59)
[2019-12-16] MEDS: PANTOPRAZOLE 40MG TABLET PO SCH ×2 (07:58→16:59)
[2019-12-16] MEDS: ASPIRIN 81 MG CHEWABLE TABLET PO SCH (07:59)
[2019-12-16] MEDS: carvediloL 12.5 MG TAB PO SCH ×2 (07:59→20:26)
[2019-12-16] MEDS: FERROUS SULFATE 325 MG TAB PO SCH ×3 (07:59→20:26)
[2019-12-16] MEDS: CALCITROL 0.25 MCG CAP PO SCH (07:59)
[2019-12-16] MEDS: DOCUSATE NA 100 MG CAP PO SCH ×2 (08:00→20:26)
[2019-12-16] MEDS: DULOXETINE 30 MG CAP PO SCH (08:00)
[2019-12-16] MEDS: MAGNESIUM OXIDE 1000 MG PO SCH ×2 (08:01→20:26)
[2019-12-16] MEDS: VITAMIN D 1000 UNIT TAB PO SCH (08:12)
[2019-12-16] MEDS: HEPARIN 5000 UNIT/ML 1 ML VIAL SQ SCH ×3 (08:14→23:30)
[2019-12-16] MEDS: FENOFIBRATE 160 MG TAB PO SCH (08:15)
[2019-12-16] MEDS: DOCOSAHEXANOIC AC/EPA 1000 MG PO SCH (08:15)
[2019-12-16] MEDS ORDERED: FISH OIL PO SCH (09:00)
[2019-12-16] MEDS ORDERED: OMEGA PO SCH (09:00)
[2019-12-16] MEDS ORDERED: FATTY ACIDS PO SCH (09:00)
[2019-12-16] MEDS ORDERED: CHOLECALCIFEROL PO SCH (09:00)
[2019-12-16] MEDS: HOME MED 1 EA UNK (Mirabegron [Myrbetriq] 50 MG) PO SCH (09:00)
--- NOTE | 2019-12-16 09:59 | P.PN ---
Subjective Date of Service: 12/16/19 Primary Care Provider: Dr. Cameron Chief Complaint: Congestive heart failure exacerbation Subjective: Improving, Doing well Physical Examination - Vital Signs Temperature: 97.0 F Blood Pressure: 122/55 Pulse: 82 Respirations: 17 Pulse Ox (%): 95 - Physical Exam General: Alert, Cooperative HEENT: Atraumatic Neck: Supple Respiratory: Clear to auscultation bilaterally Cardiovascular: Normal pulses, Regular rate/rhythm Gastrointestinal: Normal bowel sounds Neurological: Normal speech, Normal strength at 5/5 x4 extr, Normal tone, Normal affect - Studies Microbiology Data (last 24 hrs): 12/13/19 17:07 Clean Catch Urine [place] Count - Final BETWEEN 10,000 & 100,000 CFU/ML 12/13/19 17:07 Clean Catch Urine - Final MIXED ALEXEI. Medications List Reviewed: Yes Assessment & Plan Discharge Plan: Home Plan to discharge in: 48 Hours Physician Review Additional Text: Impression: Acute on chronic renal disease stage 5 suspect progressive CKD, cardiorenal syndrome Hypertension Acute on chronic diastolic CHF Diabetes mellitus type 2 insulin-dependent Anemia of chronic disease Secondary hyperparathyroidism with hypocalcemia Possible Acute cystitis Hypothyroidism Hyperlipidemia GERD Plan: Acute on chronic renal disease stage 5 suspect progressive CKD, cardiorenal syndrome: Continue current medications and diuresis. Continue fluid restriction. Renal function stable. No significant change. Patient may require set up for outpatient dialysis. Will discuss further with nephrology. Will discuss with nephrology about plan of care. Hypertension: Continue home medication. May need to adjust for better control. Acute on chronic diastolic CHF: Continue IV diuretic therapy. Continue fluid restriction. Will monitor closely. Diabetes mellitus type 2 insulin-dependent: Continue Accu-Cheks and sliding scale. Continue to hold basal insulin. Anemia of chronic disease: Continue iron supplementation. Continue Procrit. Maintain hemoglobin above 8.0. Secondary hyperparathyroidism with hypocalcemia: Continue with Nephrology recommendations. Possible Acute cystitis: Urine culture shows mixed alexei. Pro calcitonin negative. Doubt cystitis. Will discontinue antibiotic therapy. Hypothyroidism: Continue home medication Hyperlipidemia: Continue home medication GERD: Continue home medication Time Spent Managing Pts Care (In Minutes): 55
[2019-12-16] MEDS: ASCORBIC ACID 500 MG TABLET PO SCH ×2 (11:31→23:35)
[2019-12-16] MEDS ORDERED: CEFAZOLIN/SWI 1gm 1 GM/10 ML SYR IVP SCH (16:00)
[2019-12-16] MEDS: LEVOTHYROXINE SOD 0.05 MG TABLET PO SCH (20:26)
[2019-12-16] MEDS: AMITRIPTYLINE 50 MG TAB PO SCH (20:26)
--- NOTE | 2019-12-17 03:47 | PN ---
Date of Progress Note: 12/16/2019 Subjective: The patient is seen at the bedside. No overnight events reported. The patient feels we ll. Denies any fevers, chills, chest pain, shortness of breath, nausea, vomiting, or diarrhea. Objective: Vital Signs: Reviewed. General: Overweight, no acute distress. Heart: Regular rate, rhythm. No murmurs, rubs, gallops. Lungs: No rales, rhonchi, or wheezing noted. Abdomen: Soft, nontender. Extremities: With trace edema. Laboratory Data: Reviewed. Impression: 1.Acute kidney injury on chronic kidney disease. 2.Acute congestive heart failure. 3.Electrolyte imbalance. Plan: Ms. Barbour's renal function remains compromised. She is currently stage IV CKD with progressi on over the last several years. The patient understands the difficulty posed by her heart failure an d renal insufficiency in the background setting of diabetes and hypertension. The patient was stating that she had uremic symptoms including abnormal taste in her mouth last week. Putting all that into consideration, the patient has agreed to initiate hemodialysis. I have explain ed all risks and benefits to her including instability, hemorrhage, sudden cardiac , and she palacios s wish to proceed. The patient's hepatitis B serologies have been sent. We will initiate first dialysis tomorrow. Nurs ing staff will contact protective services case worker tomorrow for placement in the outpatient dialysis unit. Please ensure that the patient is on a renal diet and we will continue to follow. SE/MODL Voice ID: [id number] Report ID: [id number]
[2019-12-17 04:22] LABS: Absolute Lymphocytes (CBC) 1.5 K/uL (0.7-4.9); Basophils % 0.8 % (0-1.3); Hematocrit 22.7 % (36.0-45.0); Lymphocytes % 29.2 % (15.3-44.8); MPV 9.7 fL (7.6-11.3); RBC Red Blood Cell Count 2.49 M/uL (3.86-4.86)
[2019-12-17 05:35] LABS: Magnesium 1.8 mg/dL (1.8-2.4); Potassium 4.3 mmol/L (3.5-5.1)
[2019-12-17] MEDS: PANTOPRAZOLE 40MG TABLET PO SCH ×2 (07:30→16:05)
[2019-12-17] MEDS: INSULIN -REGULAR HUMAN 50 UNIT/0.5 ML ML SQ SCH ×4 (07:30→21:00)
[2019-12-17] MEDS ORDERED: NS 0.9% VIAL 10 ML ONE (08:36)
[2019-12-17] MEDS: HEPARIN 5000 UNIT/ML 1 ML VIAL ONE ×4 (08:36→10:18)
[2019-12-17] MEDS ORDERED: NA CHLORIDE 0.9% 100 ML IV ONE (08:37)
[2019-12-17] MEDS: DOCUSATE NA 100 MG CAP PO SCH ×2 (08:47→22:12)
[2019-12-17] MEDS: FUROSEMIDE 40 MG/4 ML VIAL IV SCH ×2 (08:47→16:14)
[2019-12-17] MEDS: ASPIRIN 81 MG CHEWABLE TABLET PO SCH (08:47)
[2019-12-17] MEDS: FERROUS SULFATE 325 MG TAB PO SCH ×3 (08:47→22:12)
[2019-12-17] MEDS: DULOXETINE 30 MG CAP PO SCH (08:47)
[2019-12-17] MEDS: HEPARIN 5000 UNIT/ML 1 ML VIAL SQ SCH ×2 (08:47→16:14)
[2019-12-17] MEDS: carvediloL 12.5 MG TAB PO SCH ×2 (08:47→22:13)
[2019-12-17] MEDS: DOCOSAHEXANOIC AC/EPA 1000 MG PO SCH (08:47)
[2019-12-17] MEDS: HOME MED 1 EA UNK (Mirabegron [Myrbetriq] 50 MG) PO SCH (08:48)
[2019-12-17] MEDS: CALCITROL 0.25 MCG CAP PO SCH (08:48)
[2019-12-17] MEDS: VITAMIN D 1000 UNIT TAB PO SCH (08:48)
[2019-12-17] MEDS: MAGNESIUM OXIDE 1000 MG PO SCH ×2 (08:48→21:00)
[2019-12-17] MEDS: FENOFIBRATE 160 MG TAB PO SCH (08:48)
[2019-12-17] MEDS ORDERED: NA CHLORIDE 0.9% 500 ML ONE (08:52)
[2019-12-17] MEDS ORDERED: MAGNESIUM SULFATE 1 gm IVPB 1 GM/100 ML BAG IV ONE (09:00)
[2019-12-17] MEDS: LIDOCAINE 1% MPF 30 ML VIAL ONE ×2 (09:29→09:47)
[2019-12-17] MEDS ORDERED: MIDAZOLAM HCL 2 MG/2 ML INJ ONE ×2 (09:44→10:02)
[2019-12-17] MEDS ORDERED: propofoL 200 MG/20 ML VIAL IV ONE (09:44)
[2019-12-17] MEDS ORDERED: FENTANYL CITR 100 MCG/2 ML ONE (09:44)
[2019-12-17] MEDS ORDERED: LIDOCAINE 1% MPF 5 ML VIAL ONE (09:44)
[2019-12-17] MEDS ORDERED: NA CHLORIDE 0.9% 1,000 ML IV PRN (10:16)
[2019-12-17] MEDS ORDERED: MANNITOL 25% 12.5 GM/50 ML VIAL IV PRN (10:16)
--- NOTE | 2019-12-17 10:25 | P.OP ---
Copy Center Operator: NONE,NONE Preoperative diagnosis: ARF Postoperative diagnosis: same Primary procedure: CISCO Vidal, Fluoroscopy Anesthesia: MAC Estimated blood loss: min Specimen: none Findings: Normal Anatomy Complications: None Transferred to: Recovery Room Condition: Good
--- NOTE | 2019-12-17 10:47 | RAD REPORT ---
EXAM DESCRIPTION: RAD - Fluoroscopy <1 Hour - 12/17/2019 10:40 am CLINICAL HISTORY: Device placement central venous catheter placement FINDINGS: A central venous catheter was placed into the superior vena cava. Four fluoroscopic spot i mages are submitted. Fluoroscopy time less than 0.1 minute The examination was performed by Dr. Ly
--- NOTE | 2019-12-17 10:53 | RAD REPORT ---
EXAM DESCRIPTION: Cece Single View12/17/2019 10:46 am CLINICAL HISTORY: Device placement/central venous catheter placement IMPRESSION: Central venous catheter with its limbs in the superior vena cava No pneumothorax
[2019-12-17] MEDS ORDERED: ALBUMIN HUMAN 25% 50 ML IV PRN (11:00)
[2019-12-17] MEDS: ASCORBIC ACID 500 MG TABLET PO SCH ×2 (11:24→23:48)
[2019-12-17] MEDS: HYDROCODONE/APAP 7.5/325 MG TAB PO PRN ×2 (11:24→21:44)
--- NOTE | 2019-12-17 12:01 | PREOPCON ---
Date of Consultation: 12/16/2019 Reason: Patient needs dialysis. History Of Present Illness: Patient is a 49-year-old female, who was admitted over the weekend with exacerbation of congestive heart failure, and she has multiple medical problems. Nephrology team saw the patient and tried to diurese the patient and it has determined that she has not improved signifi cantly and requires dialysis. Therefore, I was consulted for catheter placement. She denies any fev er or chills. No sore throat, runny nose, cough, headaches, or dizziness. No chest pain. Review of Systems: Otherwise unremarkable. Past Medical History: Hypertension, chronic renal disease, diabetes, hypertriglyceridemia, diabetic neuropathy, anemia. Past Surgical History: Cholecystectomy, appendectomy, hysterectomy, tubal ligation, adenoidectomy, n benny fusion surgery, bone spurs removed, breast reduction. Allergies: METFORMIN, BENADRYL, LINAGLIPTIN, TRADJENTA. Social History: She used to smoke. Drinks alcohol occasionally. Physical Examination: Vital Signs: Stable. Blood pressures lit bit low, systolic is 90 and afebrile. General: Awake, alert, oriented x3. Head and Neck: No masses. Chest: Clear. Heart: S1, S2. Abdomen: Soft. Extremities: Neurovascularly intact. Neuro: Nonfocal. Diagnostic Data: White count is 5, H and H is 7.7 and 22.7, platelets are 184. BUN and creatinine a re 67 and 5.12. CO2 is 25, potassium is 4.3. Assessment: A 49-year-old female with multiple medical problems, acute renal failure and probable en d-stage renal disease. Recommendations: We will go ahead and place a tunneled catheter for dialysis. Patient understands t he risks, benefits, and alternatives, and agrees to procedure. /MODL Voice ID: [id number] Report ID: [id number]
--- NOTE | 2019-12-17 13:57 | P.PN ---
Subjective Date of Service: 12/17/19 Primary Care Provider: Dr. Cameron Chief Complaint: Congestive heart failure exacerbation Subjective: Doing well Physical Examination - Vital Signs Temperature: 97.6 F Blood Pressure: 117/63 Pulse: 79 Respirations: 18 Pulse Ox (%): 97 - Physical Exam General: Alert, Cooperative HEENT: Atraumatic Neck: Supple Respiratory: Clear to auscultation bilaterally, Normal air movement Cardiovascular: Normal pulses, Regular rate/rhythm Gastrointestinal: Normal bowel sounds, Soft and benign, Non-distended Neurological: Normal speech, Normal strength at 5/5 x4 extr, Normal tone, Normal affect - Studies Microbiology Data (last 24 hrs): 12/13/19 17:07 Clean Catch Urine [place] Count - Final BETWEEN 10,000 & 100,000 CFU/ML 12/13/19 17:07 Clean Catch Urine - Final MIXED ALEXEI. Medications List Reviewed: Yes Assessment & Plan Discharge Plan: Home Plan to discharge in: 48 Hours Physician Review Additional Text: Impression: Acute on chronic renal disease stage 5 suspect progressive CKD, cardiorenal syndrome now with end-stage renal disease on hemodialysis Hypertension Acute on chronic diastolic CHF Diabetes mellitus type 2 insulin-dependent Anemia of chronic disease Secondary hyperparathyroidism with hypocalcemia Possible Acute cystitis Hypothyroidism Hyperlipidemia GERD Plan: Acute on chronic renal disease stage 5 suspect progressive CKD, cardiorenal syndrome now with end-stage renal disease on hemodialysis: Continue current medications and diuresis. Continue fluid restriction. Renal function stable. No significant change noted. Patient to have hemodialysis catheter placed. W ill set up outpatient dialysis. Will discuss further with nephrology. Hypertension: Continue home medication. May need to adjust for better control. Acute on chronic diastolic CHF: Continue IV diuretic therapy. Continue fluid restriction. Will monitor closely. Diabetes mellitus type 2 insulin-dependent: Continue Accu-Cheks and sliding scale. Continue to hold basal insulin. Anemia of chronic disease: Continue iron supplementation. Continue Procrit. Maintain hemoglobin above 8.0. Secondary hyperparathyroidism with hypocalcemia: Continue with Nephrology recommendations. Possible Acute cystitis: Urine culture shows mixed alexei. Pro calcitonin negative. Doubt cystitis. Will discontinue antibiotic therapy. Hypothyroidism: Continue home medication Hyperlipidemia: Continue home medication GERD: Continue home medication Time Spent Managing Pts Care (In Minutes): 55
--- NOTE | 2019-12-17 20:06 | P.PN ---
Date of Service: 12/17/19 Vital Signs Temp Pulse Resp BP Pulse Ox 97.2 F 84 18 138/61 97 12/17/19 16:00 12/17/19 16:14 12/17/19 16:00 12/17/19 16:14 12/17/19 16:00 Medications Hydrocodone Bitart/Acetaminophen (Lapine 7.5/325 Mg) 1 tab PO Q8H PRN PRN Reason: Pain scale 8-10 (Severe) Stop: 01/14/20 16:42 Last Admin: 12/17/19 11:24 Dose: 1 tab Documented by: Amitriptyline HCl (Elavil) 50 mg PO BEDTIME JOSÉ ANTONIO Stop: 01/14/20 21:01 Last Admin: 12/16/19 20:26 Dose: 50 mg Documented by: Ascorbic Acid (Vitamin C) 500 mg PO Q12H JOSÉ ANTONIO Stop: 01/12/20 23:01 Last Admin: 12/17/19 11:24 Dose: 500 mg Documented by: Aspirin (Aspirin Chewable) 81 mg PO DAILY [facility] Stop: 01/15/20 09:01 Last Admin: 12/17/19 08:47 Dose: Not Given Documented by: Calcitriol (Rocaltrol) 0.5 mcg PO DAILY [facility] Stop: 01/13/20 09:01 Last Admin: 12/17/19 08:48 Dose: Not Given Documented by: Carvedilol (Coreg) 12.5 mg PO BID [facility] Stop: 01/14/20 21:01 Last Admin: 12/17/19 08:47 Dose: Not Given Documented by: Cholecalciferol (Vitamin D 1000 Iu Tab) 1,000 unit PO DAILY [facility] Stop: 01/15/20 09:01 Last Admin: 12/17/19 08:48 Dose: Not Given Documented by: Docusate Sodium (Colace Cap) 100 mg PO BID [facility] Stop: 01/13/20 09:01 Last Admin: 12/17/19 08:47 Dose: Not Given Documented by: Duloxetine HCl (Cymbalta Delayed Release Pellets) 30 mg PO DAILY [facility] Stop: 01/15/20 09:01 Last Admin: 12/17/19 08:47 Dose: Not Given Documented by: Fenofibrate (Tricor) 160 mg PO DAILY [facility] Stop: 01/15/20 09:01 Last Admin: 12/17/19 08:48 Dose: Not Given Documented by: Ferrous Sulfate (Feosol) 325 mg PO TID JOSÉ ANTONIO Stop: 01/14/20 14:01 Last Admin: 12/17/19 14:56 Dose: 325 mg Documented by: Fish Oil (Fish Oil 1,000 Mg Cap) 1,000 mg PO DAILY [facility] Stop: 01/15/20 09:01 Last Admin: 12/17/19 08:47 Dose: Not Given Documented by: Furosemide (Lasix) 40 mg IV BIDL [facility] Stop: 01/13/20 09:01 Last Admin: 12/17/19 16:14 Dose: 40 mg Documented by: Gabapentin (Neurontin) 300 mg PO TIDP PRN PRN Reason: Pain scale 2-4 (Mild) Stop: 01/14/20 11:39 Last Admin: 12/15/19 13:45 Dose: 300 mg Documented by: Heparin Sodium (Porcine) (Heparin 5,000 Units/Ml) 5,000 unit SQ Q8HR [facility] Stop: 01/13/20 01:01 Last Admin: 12/17/19 16:14 Dose: Not Given Documented by: Heparin Sodium (Porcine) (Heparin 1,000 Units/Ml) 6,000 unit IV EVERY HD PRN PRN Reason: AFTER EACH HEMODIALYSIS Stop: 01/16/20 10:17 Home Med (Magnesium Oxide [Magnesium]) 1,000 mg PO BID [facility] Stop: 01/14/20 21:01 Last Admin: 12/17/19 08:48 Dose: Not Given Documented by: Home Med (Mirabegron [Myrbetriq]) 50 mg PO DAILY [facility] Stop: 01/15/20 09:01 Last Admin: 12/17/19 08:48 Dose: Not Given Documented by: Cefazolin Sodium (Ancef 1 Gm/10 Ml Swi Ivp) 1 gm in 10 mls @ 600 mls/hr IVP OC JOSÉ ANTONIO; Protocol Stop: 01/15/20 16:01 Last Admin: 12/17/19 09:39 Dose: 10 mls Documented by: Sodium Chloride (Ns 1000 Ml Ivbag) 1,000 mls @ 0 mls/hr IV .Q0M PRN; Protocol PRN Reason: Priming and BP support at HD Stop: 12/17/19 23:59 Albumin Human (Albumin 25%) 50 mls @ 100 mls/hr IV EVERY HD PRN PRN Reason: BP SUPPORT IN HD Stop: 01/16/20 11:01 Insulin Human Regular (Novolin -R) 0 unit SQ ACHS JOSÉ ANTONIO; Protocol Stop: 01/12/20 21:01 Last Admin: 12/17/19 16:02 Dose: Not Given Documented by: Levothyroxine Sodium (Synthroid) 0.05 mg PO BEDTIME JOSÉ ANTONIO Stop: 01/15/20 21:01 Last Admin: 12/16/19 20:26 Dose: 0.05 mg Documented by: Mannitol (Mannitol 12.5 Gm/50 Ml Vial) 12.5 gm IV EVERY HD PRN PRN Reason: Titrate to SBP (MUST DEFINE) Stop: 01/16/20 10:17 Pantoprazole Sodium (Protonix Tab) 40 mg PO BIDAC JOSÉ ANTONIO; Protocol Stop: 01/14/20 16:31 Last Admin: 12/17/19 16:05 Dose: 40 mg Documented by: Sodium Chloride (Normal Saline Flush) 10 ml IV BID JOSÉ ANTONIO Stop: 01/12/20 21:01 Last Admin: 12/17/19 08:48 Dose: Not Given Documented by: Microbiology Results 12/13/19 17:07 Clean Catch Urine [place] Count - Final BETWEEN 10,000 & 100,000 CFU/ML 12/13/19 17:07 Clean Catch Urine - Final MIXED PITO. Assessment/ Plan: Nephrology CPS stable without CP or SOB. Doing well. CVC placed today. No acute events overnight. Vitals, medications, blood work and imaging reviewed in the chart. General: Oriented x3, Cooperative HEENT: Atraumatic Neck: Supple, JVD distended Respiratory: Clear to auscultation bilaterally, Diminished Cardiovascular: Regular rate/rhythm, Edema none Gastrointestinal: Soft and benign, Non-distended Musculoskeletal: No clubbing, No contractures Integumentary: No rashes, No cyanosis Laboratory Data (last 24 hrs) 12/13/19 16:47: Sodium 141, Potassium 4.4, BUN 52 H, Creatinine 4.54 H, Glucose 112 H 12/13/19 16:47: WBC 5.2, Hgb 8.0 L, Hct 24.5 L, Plt Count 190 Imagings Data: EXAM DESCRIPTION: RAD - Chest Single View - 12/13/2019 4:58 pm CLINICAL HISTORY: DYSPNEA Chest pain. COMPARISON: Chest Single View dated 08/15/2019; Chest Single View dated 06/26/2019; Chest Pa And Lat (2 Views) dated 02/11/2019; Chest Single View dated 12/22/2018 FINDINGS: Portable technique limits examination quality. The lungs are grossly clear. The heart is upper limit of normal in size. No displaced fractures. IMPRESSION: No acute intrathoracic process suspected. Conclusions/Impression: A/ OMAR may be due to CRS vs progressive CKD. Hypocalcemia CKD IV with proteinuria HTN with CKD/ CHF. Diastolic CHF, A/C. DM II with CKD. Anemia in CKD CANDI/ Secondary HyperPTH. Hypocalcemia. Acute cystitis P/ Continue current POC and Medications. Initiate HD today. Next HD tomorrow. Continue furosemide. Give Procrit today. Continue abx. Follow up urine culture. No NSAIDs. AM labs. Daily weight. Patient contact number [phone]. Arrange placement at the [facility].
--- NOTE | 2019-12-17 21:07 | OP ---
Date of Procedure: 12/17/2019 Surgeon: Karel Ly MD Bond Clerk: None. Preoperative Diagnosis: Acute renal failure. Postoperative Diagnosis: Acute renal failure. Procedure: Placement of right IJ Tesio catheter, interpretation of intraoperative fluoroscopy. Estimated Blood Loss: Minimal. Specimen: None. Findings: Normal anatomy. Anesthesia: MAC. Complications: None. Disposition: The patient tolerated the procedure in stable condition, taken to Recovery in good gene ral condition. Procedure In Detail: The patient was brought to the OR and placed in supine position. MAC anesthesi a began. The patient was prepped and draped in usual sterile fashion. Lidocaine 1% infiltrated loca lly. An 18-gauge needle was used to access the right IJ vein. Guidewire was passed. Position was c onfirmed with fluoroscopy. Counterincision made on the right anterior chest. Tunneling device used to tunnel the catheter between the 2 wounds. Seldinger technique was used. Tip of the catheter unde r fluoroscopy placed in the SVC and flushed with heparin and packed with heparin with good blood flow . Then 3-0 chromic used to approximate subcutaneous tissue and close the skin. Anterior nylon used to secure the tube to the chest wall. Sterile dressing was applied. The patient was awakened and taken to Recovery in good general condition. [facility] st x-ray has been ordered. /MODL Voice ID: [id number] Report ID: [id number]
[2019-12-17] MEDS ORDERED: MORPHINE 2 MG/ML SYR IV ONE (21:47)
[2019-12-17] MEDS: LEVOTHYROXINE SOD 0.05 MG TABLET PO SCH (22:12)
[2019-12-17] MEDS: AMITRIPTYLINE 50 MG TAB PO SCH (22:12)
[2019-12-18] MEDS: HEPARIN 5000 UNIT/ML 1 ML VIAL SQ SCH ×3 (00:09→16:13)
[2019-12-18] MEDS ORDERED: MEPERIDINE HCL 25 MG/ML SYR IV ONE (00:19)
[2019-12-18 04:08] LABS: Absolute Lymphocytes (CBC) 1.3 K/uL (0.7-4.9); Basophils % 0.9 % (0-1.3); Hematocrit 23.8 % (36.0-45.0); Lymphocytes % 25.7 % (15.3-44.8); MPV 9.4 fL (7.6-11.3); RBC Red Blood Cell Count 2.56 M/uL (3.86-4.86)
[2019-12-18 04:28] LABS: Magnesium 2.3 mg/dL (1.8-2.4); Potassium 5.3 mmol/L (3.5-5.1)
[2019-12-18] MEDS: HYDROCODONE/APAP 7.5/325 MG TAB PO PRN ×3 (05:24→21:12)
[2019-12-18] MEDS: INSULIN -REGULAR HUMAN 50 UNIT/0.5 ML ML SQ SCH (07:30)
[2019-12-18] MEDS: MEPERIDINE HCL 25 MG/ML SYR IV PRN ×2 (08:11→16:14)
[2019-12-18] MEDS: HOME MED 1 EA UNK (Mirabegron [Myrbetriq] 50 MG) PO SCH (09:00)
[2019-12-18] MEDS ORDERED: EPOETIN ALFA-EPBX 10,000 UNIT/ML VIAL SQ SCH (09:00)
[2019-12-18] MEDS: MAGNESIUM OXIDE 1000 MG PO SCH (09:00)
[2019-12-18] MEDS: CALCITROL 0.25 MCG CAP PO SCH (09:02)
[2019-12-18] MEDS: DOCOSAHEXANOIC AC/EPA 1000 MG PO SCH (09:02)
[2019-12-18] MEDS: FUROSEMIDE 40 MG/4 ML VIAL IV SCH ×2 (09:02→16:16)
[2019-12-18] MEDS: DOCUSATE NA 100 MG CAP PO SCH ×2 (09:02→21:13)
[2019-12-18] MEDS: FERROUS SULFATE 325 MG TAB PO SCH ×3 (09:03→21:13)
[2019-12-18] MEDS: ASPIRIN 81 MG CHEWABLE TABLET PO SCH (09:03)
[2019-12-18] MEDS: PANTOPRAZOLE 40MG TABLET PO SCH ×2 (09:03→16:13)
[2019-12-18] MEDS: FENOFIBRATE 160 MG TAB PO SCH (09:03)
[2019-12-18] MEDS: carvediloL 12.5 MG TAB PO SCH ×2 (09:03→21:13)
[2019-12-18] MEDS: DULOXETINE 30 MG CAP PO SCH (09:03)
[2019-12-18] MEDS: VITAMIN D 1000 UNIT TAB PO SCH (09:03)
[2019-12-18] MEDS: ASCORBIC ACID 500 MG TABLET PO SCH (11:07)
--- NOTE | 2019-12-18 12:24 | P.PN ---
Subjective Date of Service: 12/18/19 Primary Care Provider: Dr. Cameron Chief Complaint: Congestive heart failure exacerbation Subjective: Other (Patient reported some pain to the hemodialysis catheter site. Patient requesting medication for pain.) Physical Examination - Vital Signs Temperature: 96.3 F Blood Pressure: 146/69 Pulse: 78 Respirations: 16 Pulse Ox (%): 99 - Physical Exam General: Alert, In no apparent distress, Cooperative HEENT: Atraumatic Neck: Supple Respiratory: Clear to auscultation bilaterally, Normal air movement Cardiovascular: Normal pulses, Regular rate/rhythm Integumentary: Other (Dialysis catheter in place. No evidence of hematoma.) Neurological: Normal speech, Normal strength at 5/5 x4 extr, Normal tone, Normal affect - Studies Medications List Reviewed: Yes Assessment & Plan Discharge Plan: Home Plan to discharge in: 24 Hours Physician Review Additional Text: Impression: Acute on chronic renal disease stage 5 suspect progressive CKD, cardiorenal syndrome now with end-stage renal disease on hemodialysis Hypertension Acute on chronic diastolic CHF Diabetes mellitus type 2 insulin-dependent Anemia of chronic disease Secondary hyperparathyroidism with hypocalcemia Possible Acute cystitis Hypothyroidism Hyperlipidemia GERD Plan: Acute on chronic renal disease stage 5 suspect progressive CKD, cardiorenal syndrome now with end-stage renal disease on hemodialysis: Continue with dialysis. Continue fluid restriction. Patient reports pain to the hemodialysis catheter site. Continue to provide medication for pain this will improve. Awaiting outpatient dialysis set up. Likely discharge in the next 1-2 days once this has been approved and set up. Will discuss further with nephrology. Hypertension: Continue home medication. May need to adjust for better control. Acute on chronic diastolic CHF: Continue IV diuretic therapy. Continue fluid restriction. Will monitor closely. Diabetes mellitus type 2 insulin-dependent: Continue Accu-Cheks and sliding scale. Continue to hold basal insulin. Will check A1c. Anemia of chronic disease: Continue iron supplementation. Continue Procrit. Maintain hemoglobin above 8.0. Secondary hyperparathyroidism with hypocalcemia: Continue with Nephrology recommendations. Possible Acute cystitis: Urine culture shows mixed alexei. Pro calcitonin negative. Doubt cystitis. Antibiotic therapy has been discontinued. Hypothyroidism: Continue home medication Hyperlipidemia: Continue home medication GERD: Continue home medication Time Spent Managing Pts Care (In Minutes): 55
[2019-12-18 17:58] VITALS: O2SAT 100
[2019-12-18 19:03] LABS: HBsAG Nonreactive (Nonreactive)
[2019-12-18] MEDS: LEVOTHYROXINE SOD 0.05 MG TABLET PO SCH (21:13)
[2019-12-18] MEDS: MAGNESIUM OXIDE 400 MG TAB PO SCH (21:13)
[2019-12-18] MEDS: AMITRIPTYLINE 50 MG TAB PO SCH (21:14)
--- NOTE | 2019-12-18 21:23 | P.PN ---
Date of Service: 12/18/19 Vital Signs Temp Pulse Resp BP Pulse Ox 97.5 F 85 16 119/56 L 100 12/18/19 16:00 12/18/19 16:16 12/18/19 16:00 12/18/19 16:16 12/18/19 16:00 Medications Hydrocodone Bitart/Acetaminophen ([place] 7.5/325 Mg) 1 tab PO Q4H PRN PRN Reason: Pain scale 8-10 (Severe) Stop: 01/14/20 16:42 Last Admin: 12/18/19 21:12 Dose: 1 tab Documented by: Amitriptyline HCl (Elavil) 50 mg PO BEDTIME JOSÉ ANTONIO Stop: 01/14/20 21:01 Last Admin: 12/18/19 21:14 Dose: 50 mg Documented by: Ascorbic Acid (Vitamin C) 500 mg PO Q12H JOSÉ ANTONIO Stop: 01/12/20 23:01 Last Admin: 12/18/19 11:07 Dose: 500 mg Documented by: Aspirin (Aspirin Chewable) 81 mg PO DAILY JOSÉ ANTONIO Stop: 01/15/20 09:01 Last Admin: 12/18/19 09:03 Dose: 81 mg Documented by: Calcitriol (Rocaltrol) 0.5 mcg PO DAILY JOSÉ ANTONIO Stop: 01/13/20 09:01 Last Admin: 12/18/19 09:02 Dose: 0.5 mcg Documented by: Carvedilol (Coreg) 12.5 mg PO BID JOSÉ ANTONIO Stop: 01/14/20 21:01 Last Admin: 12/18/19 21:13 Dose: 12.5 mg Documented by: Cholecalciferol (Vitamin D 1000 Iu Tab) 1,000 unit PO DAILY JOSÉ ANTONIO Stop: 01/15/20 09:01 Last Admin: 12/18/19 09:03 Dose: 1,000 unit Documented by: Docusate Sodium (Colace Cap) 100 mg PO BID JOSÉ ANTONIO Stop: 01/13/20 09:01 Last Admin: 12/18/19 21:13 Dose: 100 mg Documented by: Duloxetine HCl (Cymbalta Delayed Release Pellets) 30 mg PO DAILY JOSÉ ANTONIO Stop: 01/15/20 09:01 Last Admin: 12/18/19 09:03 Dose: 30 mg Documented by: Fenofibrate (Tricor) 160 mg PO DAILY JOSÉ ANTONIO Stop: 01/15/20 09:01 Last Admin: 12/18/19 09:03 Dose: 160 mg Documented by: Ferrous Sulfate (Feosol) 325 mg PO TID [facility] Stop: 01/14/20 14:01 Last Admin: 12/18/19 21:13 Dose: 325 mg Documented by: Fish Oil (Fish Oil 1,000 Mg Cap) 1,000 mg PO DAILY [facility] Stop: 01/15/20 09:01 Last Admin: 12/18/19 09:02 Dose: 1,000 mg Documented by: Furosemide (Lasix) 40 mg IV BIDL [facility] Stop: 01/13/20 09:01 Last Admin: 12/18/19 16:16 Dose: 40 mg Documented by: Gabapentin (Neurontin) 300 mg PO TIDP PRN PRN Reason: Pain scale 2-4 (Mild) Stop: 01/14/20 11:39 Last Admin: 12/15/19 13:45 Dose: 300 mg Documented by: Heparin Sodium (Porcine) (Heparin 5,000 Units/Ml) 5,000 unit SQ Q8HR [facility] Stop: 01/13/20 01:01 Last Admin: 12/18/19 16:13 Dose: 5,000 unit Documented by: Heparin Sodium (Porcine) (Heparin 1,000 Units/Ml) 6,000 unit IV EVERY HD PRN PRN Reason: AFTER EACH HEMODIALYSIS Stop: 01/16/20 10:17 Home Med (Mirabegron [Myrbetriq]) 50 mg PO DAILY [facility] Stop: 01/15/20 09:01 Last Admin: 12/18/19 09:00 Dose: Not Given Documented by: Cefazolin Sodium (Ancef 1 Gm/10 Ml Swi Ivp) 1 gm in 10 mls @ 600 mls/hr IVP OC [facility]; Protocol Stop: 01/15/20 16:01 Last Admin: 12/17/19 09:39 Dose: 10 mls Documented by: Albumin Human (Albumin 25%) 50 mls @ 100 mls/hr IV EVERY HD PRN PRN Reason: BP SUPPORT IN HD Stop: 01/16/20 11:01 Levothyroxine Sodium (Synthroid) 0.05 mg PO BEDTIME [facility] Stop: 01/15/20 21:01 Last Admin: 12/18/19 21:13 Dose: 0.05 mg Documented by: Magnesium Oxide (Mag 0x Tab) 1,000 mg PO BID [facility] Stop: 01/14/20 21:01 Last Admin: 12/18/19 21:13 Dose: 1,000 mg Documented by: Mannitol (Mannitol 12.5 Gm/50 Ml Vial) 12.5 gm IV EVERY HD PRN PRN Reason: Titrate to SBP (MUST DEFINE) Stop: 01/16/20 10:17 Meperidine HCl (Demerol) 12.5 mg IV TID PRN PRN Reason: Pain scale 8-10 (Severe) Stop: 01/17/20 09:01 Last Admin: 12/18/19 16:14 Dose: 12.5 mg Documented by: Pantoprazole Sodium (Protonix Tab) 40 mg PO BIDAC [facility]; Protocol Stop: 01/14/20 16:31 Last Admin: 12/18/19 16:13 Dose: 40 mg Documented by: Sodium Chloride (Normal Saline Flush) 10 ml IV BID JOSÉ ANTONIO Stop: 01/12/20 21:01 Last Admin: 12/18/19 21:14 Dose: 10 ml Documented by: Lab Results (last 24 hrs) 12/14/19 05:53: Hep Bs Antigen Nonreactive, Hep Bs Antibody, Quant <5 L, Hep B Core Total Ab Nonreactive Microbiology Results 12/13/19 17:07 Clean Catch Urine Coin Count - Final BETWEEN 10,000 & 100,000 CFU/ML 12/13/19 17:07 Clean Catch Urine - Final MIXED PITO. Assessment/ Plan: Nephrology CPS stable without CP or SOB. Doing well. No acute events overnight. Vitals, medications, blood work and imaging reviewed in the chart. General: Oriented x3, Cooperative HEENT: Atraumatic Neck: Supple, JVD distended Respiratory: Clear to auscultation bilaterally, Diminished Cardiovascular: Regular rate/rhythm, Edema none Gastrointestinal: Soft and benign, Non-distended Musculoskeletal: No clubbing, No contractures Integumentary: No rashes, No cyanosis Laboratory Data (last 24 hrs) 12/13/19 16:47: Sodium 141, Potassium 4.4, BUN 52 H, Creatinine 4.54 H, Glucose 112 H 12/13/19 16:47: WBC 5.2, Hgb 8.0 L, Hct 24.5 L, Plt Count 190 Imagings Data: EXAM DESCRIPTION: RAD - Chest Single View - 12/13/2019 4:58 pm CLINICAL HISTORY: DYSPNEA Chest pain. COMPARISON: Chest Single View dated 08/15/2019; Chest Single View dated 06/26/2019; Chest Pa And Lat (2 Views) dated 02/11/2019; Chest Single View dated 12/22/2018 FINDINGS: Portable technique limits examination quality. The lungs are grossly clear. The heart is upper limit of normal in size. No displaced fractures. IMPRESSION: No acute intrathoracic process suspected. Conclusions/Impression: A/ ESRD. First HD 12-17-19. Hypocalcemia CKD IV with proteinuria HTN with CKD/ CHF. Diastolic CHF, A/C. DM II with CKD. Anemia in CKD CANDI/ Secondary HyperPTH. Hypocalcemia. Acute cystitis P/ Continue current POC and Medications. HD today as ordered. Continue furosemide. Give Procrit prn. Continue abx. Follow up urine culture. No NSAIDs. AM labs. Daily weight. Patient contact number [phone]. Arrange placement at the [facility] [place].
[2019-12-19] MEDS: HEPARIN 5000 UNIT/ML 1 ML VIAL SQ SCH ×3 (01:05→16:42)
[2019-12-19] MEDS: MEPERIDINE HCL 25 MG/ML SYR IV PRN (01:05)
[2019-12-19] MEDS: ASCORBIC ACID 500 MG TABLET PO SCH ×2 (01:06→12:24)
[2019-12-19 06:19] LABS: Absolute Lymphocytes (CBC) 1.1 K/uL (0.7-4.9); Basophils % 0.8 % (0-1.3); Hematocrit 24.3 % (36.0-45.0); Lymphocytes % 24.3 % (15.3-44.8); MPV 9.2 fL (7.6-11.3); RBC Red Blood Cell Count 2.67 M/uL (3.86-4.86)
[2019-12-19 06:34] LABS: Magnesium 2.1 mg/dL (1.8-2.4); Potassium 4.4 mmol/L (3.5-5.1)
[2019-12-19] MEDS ORDERED: EPOETIN ALFA-EPBX 10,000 UNIT/ML VIAL SQ SCH (09:00)
[2019-12-19] MEDS: VITAMIN D 1000 UNIT TAB PO SCH (09:00)
[2019-12-19] MEDS: FUROSEMIDE 40 MG/4 ML VIAL IV SCH ×2 (09:00→16:26)
[2019-12-19] MEDS: carvediloL 12.5 MG TAB PO SCH (09:00)
[2019-12-19] MEDS: HOME MED 1 EA UNK (Mirabegron [Myrbetriq] 50 MG) PO SCH (09:00)
[2019-12-19 09:03] VITALS: TEMP 98.1
[2019-12-19] MEDS: CALCITROL 0.25 MCG CAP PO SCH (09:32)
[2019-12-19] MEDS: MAGNESIUM OXIDE 400 MG TAB PO SCH (09:32)
[2019-12-19] MEDS: DULOXETINE 30 MG CAP PO SCH (09:32)
[2019-12-19] MEDS: DOCOSAHEXANOIC AC/EPA 1000 MG PO SCH (09:32)
[2019-12-19] MEDS: ASPIRIN 81 MG CHEWABLE TABLET PO SCH (09:33)
[2019-12-19] MEDS: PANTOPRAZOLE 40MG TABLET PO SCH ×2 (09:33→16:40)
[2019-12-19] MEDS: FERROUS SULFATE 325 MG TAB PO SCH ×2 (09:33→12:24)
[2019-12-19] MEDS: DOCUSATE NA 100 MG CAP PO SCH (09:33)
[2019-12-19] MEDS: FENOFIBRATE 160 MG TAB PO SCH (09:33)
[2019-12-19] MEDS: HYDROCODONE/APAP 7.5/325 MG TAB PO PRN (09:35)
--- NOTE | 2019-12-19 15:18 | P.DS ---
Admission Date: 12/14/19 Discharge Date: 12/19/19 Primary Care Provider: Dr. Cameron Disposition: ROUTINE DISCHARGE Discharge Condition: GOOD Reason for Admission: Congestive heart failure exacerbation Consultations: Nephrology-Dr. Cameron Procedures: Medical Problem list: Acute on chronic renal disease stage 5 suspect progressive CKD, cardiorenal syndrome now with end-stage renal disease on hemodialysis Hypertension Acute on chronic diastolic CHF Diabetes mellitus type 2 insulin-dependent Anemia of chronic disease Secondary hyperparathyroidism with hypocalcemia Possible Acute cystitis Hypothyroidism Hyperlipidemia GERD Brief History of Present Illness: 49-year-old female presented with acute on chronic renal failure stage 5. Her renal function was worsening and required hospitalization. Patient also had acute on chronic diastolic CHF. This was related to cardiorenal syndrome. Patient admitted for further evaluation and treatment. Hospital Course: Patient presented with acute on chronic renal disease stage 5. This was progressive chronic renal disease related to cardiorenal syndrome. Patient now requires dialysis. Patient now with end-stage renal disease. Surgery was consulted to place hemodialysis catheter. Patient has received dialysis since that time. administrative services specialist help him the process of setting up outpatient dialysis. This has been arranged. At discharge she will continue with current medication. She will continue with dialysis every Tuesday, Tuesday and Tuesday. Please review discharge medications. Patient with hypertension, diabetes mellitus type 2 insulin dependent, anemia of chronic disease, secondary hyperparathyroidism with hypocalcemia, hypothyroidism, hyperlipidemia and GERD. At discharge she will continue with her current medications. Please review discharge medications for details. Patient also presented with acute on chronic diastolic CHF. Patient received IV diuretic therapy. This resolved after dialysis was initiated. At discharge she will continue with a 1500 cc per day fluid restriction and low-salt diet. Vital Signs/Physical Exam: Temp Pulse Resp BP Pulse Ox 98.1 F 78 16 115/66 99 12/19/19 12:00 12/19/19 12:00 12/19/19 12:00 12/19/19 12:12/19/19 12:00 General: Alert, In no apparent distress, Oriented x3, Cooperative HEENT: Atraumatic Neck: Supple Respiratory: Clear to auscultation bilaterally, Normal air movement Cardiovascular: Normal pulses, Regular rate/rhythm Gastrointestinal: Normal bowel sounds, Soft and benign, Non-distended Neurological: Normal speech, Normal strength at 5/5 x4 extr, Normal tone, Normal affect Laboratory Data at Discharge: WBC 4.7 K/uL (4.3-10.9) 12/19/19 05:58 Hgb 8.3 g/dL (12.0-15.0) L 12/19/19 05:58 Hct 24.3 % (36.0-45.0) L 12/19/19 05:58 Plt Count 202 K/uL (152-406) 12/19/19 05:58 Sodium 135 mmol/L (136-145) L 12/19/19 05:58 Potassium 4.4 mmol/L (3.5-5.1) 12/19/19 05:58 BUN 30 mg/dL (7-18) H 12/19/19 05:58 Creatinine 3.89 mg/dL (0.55-1.3) H 12/19/19 05:58 Glucose 176 mg/dL (74-106) H 12/19/19 05:58 Uric Acid 8.9 mg/dL (2.6-6.0) H 12/14/19 05:53 Phosphorus 5.6 mg/dL (2.5-4.9) H 12/15/19 06:00 Magnesium 2.1 mg/dL (1.8-2.4) 12/19/19 05:58 Total Bilirubin 0.2 mg/dL (0.2-1.0) 12/14/19 05:53 AST 56 U/L (15-37) H 12/14/19 05:53 ALT 15 U/L (12-78) 12/14/19 05:53 Alkaline Phosphatase 35 U/L (45-117) L 12/14/19 05:53 Home Medications: Amitriptyline HCl 50 mg PO BEDTIME 12/23/18 Aspirin 81 mg PO DAILY 12/23/18 Cholecalciferol (Vitamin D3) [Vitamin D3] 1,000 iu PO DAILY 12/23/18 Insulin Lispro [Humalog] 30 unit SQ TIDWM 12/23/18 Levothyroxine [Synthroid*] 0.05 mg PO BEDTIME 12/23/18 Magnesium Oxide [Magnesium] 1,000 mg PO BID 12/23/18 Mirabegron [Myrbetriq] 50 mg PO DAILY 12/23/18 carvediloL [Carvedilol] 12.5 mg PO BID 12/23/18 Dulaglutide [Trulicity] 1.5 mg SQ [facility] 03/25/19 Ferrous Sulfate [Ferrous Sulfate*] 325 mg PO TID 06/26/19 Insulin Glargine,Hum.rec.anlog [Margaux Hsuostar] 50 unit SQ DAILY 06/26/19 [place]-3 Fatty Acids/Fish Oil [Fish Oil 1,000 mg Softgel] 1,000 mg PO DAILY 02/04 Duloxetine [Cymbalta *] 30 mg PO DAILY 12/14/19 Fenofibrate [Tricor*] 160 mg PO DAILY 12/14/19 Furosemide [Lasix*] 40 mg PO DAILY 12/14/19 Gabapentin 300 mg PO TIDP PRN 12/14/19 Pantoprazole [Protonix Tab*] 40 mg PO BID 12/14/19 Promethazine Tab [Phenergan*] 25 mg PO TIDP PRN 12/14/19 Patient Discharge Instructions: 1. Recommend follow up with PCP in 1 week to follow up this hospitalization. 2. Patient presented with acute on chronic renal disease stage 5. This was progressive chronic renal disease related to cardiorenal syndrome. Patient now requires dialysis. Patient now with end- stage renal disease. Surgery was consulted to place hemodialysis catheter. Patient has received dialysis since that time. administrative services specialist help him the process of setting up outpatient dialysis. This has been arranged. At discharge she will continue with current medication. She will continue with dialysis every Tuesday, Tuesday and Tuesday. Please review discharge medications. 3. Patient with hypertension, diabetes mellitus type 2 insulin dependent, anemia of chronic disease, secondary hyperparathyroidism with hypocalcemia, hypothyroidism, hyperlipidemia and GERD. At discharge she will continue with her current medications. Please review discharge medications for details. 4. Patient also presented with acute on chronic diastolic CHF. Patient received IV diuretic therapy. This resolved after dialysis was initiated. At discharge she will continue with a 1500 cc per day fluid restriction and low-salt diet. Diet: ADA Activity: Ad brenden Followup: Jean-Paul Cameron DO [Primary Care Provider] - Time spent managing pt's care (in minutes): 55
[2019-12-19 16:24] VITALS: BP 99/41
--- NOTE | 2019-12-19 21:35 | P.PN ---
Date of Service: 12/19/19 Vital Signs Temp Pulse Resp BP Pulse Ox 98.1 F 88 15 99/41 L 98 12/19/19 16:00 12/19/19 16:26 12/19/19 16:00 12/19/19 16:26 12/19/19 16:00 Microbiology Results 12/13/19 17:07 Clean Catch Urine [place] Count - Final BETWEEN 10,000 & 100,000 CFU/ML 12/13/19 17:07 Clean Catch Urine - Final MIXED PITO. Assessment/ Plan: Nephrology CPS stable without CP or SOB. Doing well. No acute events overnight. Vitals, medications, blood work and imaging reviewed in the chart. General: Oriented x3, Cooperative HEENT: Atraumatic Neck: Supple, JVD distended Respiratory: Clear to auscultation bilaterally, Diminished Cardiovascular: Regular rate/rhythm, Edema none Gastrointestinal: Soft and benign, Non-distended Musculoskeletal: No clubbing, No contractures Integumentary: No rashes, No cyanosis Laboratory Data (last 24 hrs) 12/13/19 16:47: Sodium 141, Potassium 4.4, BUN 52 H, Creatinine 4.54 H, Glucose 112 H 12/13/19 16:47: WBC 5.2, Hgb 8.0 L, Hct 24.5 L, Plt Count 190 Imagings Data: EXAM DESCRIPTION: RAD - Chest Single View - 12/13/2019 4:58 pm CLINICAL HISTORY: DYSPNEA Chest pain. COMPARISON: Chest Single View dated 08/15/2019; Chest Single View dated 06/26/2019; Chest Pa And Lat (2 Views) dated 02/11/2019; Chest Single View dated 12/22/2018 FINDINGS: Portable technique limits examination quality. The lungs are grossly clear. The heart is upper limit of normal in size. No displaced fractures. IMPRESSION: No acute intrathoracic process suspected. Conclusions/Impression: A/ ESRD. First HD 12-17-19. Hypocalcemia CKD IV with proteinuria HTN with CKD/ CHF. Diastolic CHF, A/C. DM II with CKD. Anemia in CKD CANDI/ Secondary HyperPTH. Hypocalcemia. Acute cystitis P/ Continue current POC and Medications. Next HD tomorrow. Continue furosemide. Give Procrit prn. Continue abx. Follow up urine culture. No NSAIDs. AM labs. Daily weight. Patient contact number [phone]. Arrange placement at the [facility].
== END 2019-12-19 17:48 | disposition home or self-care (01) | DRG 673 ==
LOC: ER 15:59 → ERHOLD 19:35 → 2ND 20:11 → OBSVTOIN 12-14 08:08
PROVIDERS: ADMIT Hospitalist; ATTEND Family Medicine
PROC: 02HV33Z Insertion of Infusion Device into Superior Vena Cava, Percutaneous Approach (ICD-10-PCS; 2019-12-17)
PROC: 5A1D70Z Performance of Urinary Filtration, Intermittent, Less than 6 Hours Per Day (ICD-10-PCS; 2019-12-17)
PROC: 0JH63XZ Insertion of Tunneled Vascular Access Device into Chest Subcutaneous Tissue and Fascia, Percutaneous Approach (ICD-10-PCS; principal; 2019-12-17 09:30)
DX: N17.9 Acute kidney failure, unspecified (principal); I50.33 Acute on chronic diastolic (congestive) heart failure; I13.2 Hypertensive heart and chronic kidney disease with heart failure and with stage 5 chronic kidney disease, or end stage renal disease; N30.00 Acute cystitis without hematuria; N18.6 End stage renal disease; E11.22 Type 2 diabetes mellitus with diabetic chronic kidney disease; E78.5 Hyperlipidemia, unspecified; N28.9 Disorder of kidney and ureter, unspecified; D63.8 Anemia in other chronic diseases classified elsewhere; E11.40 Type 2 diabetes mellitus with diabetic neuropathy, unspecified; D63.1 Anemia in chronic kidney disease; N25.0 Renal osteodystrophy; E21.1 Secondary hyperparathyroidism, not elsewhere classified; E87.8 Other disorders of electrolyte and fluid balance, not elsewhere classified; K21.9 Gastro-esophageal reflux disease without esophagitis; E03.9 Hypothyroidism, unspecified; G47.33 Obstructive sleep apnea (adult) (pediatric); E66.9 Obesity, unspecified; Z68.37 Body mass index [BMI] 37.0-37.9, adult; Z91.013 Allergy to seafood; Z90.49 Acquired absence of other specified parts of digestive tract; Z99.2 Dependence on renal dialysis; Z87.891 Personal history of nicotine dependence; Z88.8 Allergy status to other drugs, medicaments and biological substances; Z98.51 Tubal ligation status; Z79.4 Long term (current) use of insulin; Z79.890 Hormone replacement therapy; Z79.899 Other long term (current) drug therapy; Z79.82 Long term (current) use of aspirin; Z90.710 Acquired absence of both cervix and uterus; Z20.828 Contact with and (suspected) exposure to other viral communicable diseases
CPT/HCPCS: 36415; 71045; 76000; 80048; 80076; 81003; 81015; 82728; 82947; 83036; 83735; 83880; 84100; 84145; 84550; 85018; 85025; 86317; 86704; 86850; 86900; 86901; 87086; 87088; 87340; 90935; 93005; 99285; C1752; G0378; J0696; J1644; J1940; J2175; J2250; J2270; J2704; J3010; J3475; J7040; Q5106; U0003

== ENCOUNTER 2020-07-03 17:48 | Emergency (ER) | payer BC, OTHER ==
--- OUTSIDE RECORDS SUMMARY | 2020-07-03 17:53 | XMS REPORT | Continuity of Care Document ---
:1970 Author Organization [facility] t Address [address] [place] [address] Care Team Providers Name Role Phone Pcp Primary Care Physician Unavailable Young Attending Clinician Unavailable Dc Attending Clinician Unavailable BIRD Attending Clinician Unavailable LINDY Attending Clinician Unavailable Farhat PAIGE Attending Clinician Unavailable DR XIOMARA Attending Clinician Unavailable BIRD Admitting Clinician Unavailable Farhat PAIGE Admitting Clinician Unavailable DR XIOMARA Admitting Clinician Unavailable Payers Payer Name Policy Type Policy Effective Date Expiration Date Sour ce Number MEDICAREMEDICARE A [id number] 2020 LUKE Clement [id number] 2020- 00:00:00 - Medical PresentMedicare Center BLUE CROSS/BLUE 2018 [facility] 4 00:00:00 - Medical POS/PPO/[id number] Ce nt [id number], [place] [address]DBH Problems Condition Condition Condition Status Onset Resolution Last Treating Co mments Source Name Details Category Date Date Treatment Clinician Date Splenomega Splenomega Disease Active [facility] ly ly 10-23 Bird[facility] - 00:00: Medical 00 Center Obesity, Obesity, Disease Active LUKE bhagat Class II, Class II, 10-17 Choco s - BMI BMI 00:00: Medical 35-39.9 35-39.9 00 Center Elevated Elevated Disease [facility] liver liver 10-16 [place] - enzymes enzymes 00:00: Medical 00 [place] Acute Acute Disease Active [facility] respirator respirator 10-16 Bird kes - y distress y distress 00:00: Me dical 00 Center Acute Acute Disease Active [facility] congestive congestive 10-16 Bird kes - heart heart 00:00: Medical failure failure 00 Center Stage 4 Stage 4 Disease Active [facility] [...] of insulin insulin SHREE SHREE Disease Active [facility] (obstructi (obstructi 10-16 Bird kes - ve sleep ve sleep 00:00: Medica l apnea) apnea) 00 Center Morbid Morbid Disease Active [facility] obesity obesity 10-16 [facility] - 00:00: Medical 00 Center Allergies, Adverse Reactions, Alerts Allergy Allergy Status Severity Reaction(s) Onset Inactive Treating Comm ents Source Name Type Date Date Clinician Diphenhy Propensi Active [facility] dramine ty to 10-16 [facility] - Hcl adverse 00:00: Medical reaction 00 Center s Metformi Propensi Active Other (See Advised [facility] n ty to Comments) 10-16 not to [facility] - adverse 00:00: take Medical reaction 00 cause of Center s kidneys Lin[place] Propensi Active Diarrhea, Loss of [facility] I [facility] tin ty to Nausea And 10-16 appetite Luke s - adverse Vomiting 00:00: Medical reaction 00 Center s Family History Family Member Diagnosis Comments Start Date Stop Date Source Natural brother Congenital heart [facility] disease [facility] Natural father Stroke [facility] Natural mother Diabetes [facility] Natural sister Asthma [facility] Social History Social Habit Start Date Stop Date Quantity Comments Source History of tobacco Current smoker [facility] - use Medical Center History SDOH [facility] - Alcohol Std Drinks Medica l Center History SDOH [facility] - Alcohol Binge Medical Christopher ter Sex Assigned At [facility] Cigarettes smoked 2018-10-16 2018-10-16 [facility] - current (pack per 00:00:00 00:00:00 Medical Center day) - Reported Cigarette 2018-10-16 2018-10-[address] [facility] - pack-years 00:00:00 00:00:00 Medical Center Tobacco use and 2018-10-16 2018-10-[address] Bird kes - exposure 00:00:00 00:00:00 [facility] Center Alcohol intake 2018-10-16 2018-10-[address] [facility] - 00:00:00 00:00:00 non-drinker of Medical Ce nter alcohol (finding) History SDOH 2018-10-16 2018-10-[address] [facility] - Alcohol Frequency 00:00:00 00:00:00 Medical Center Smoking Status Start Date Stop Date Source [...] [facility] (LASIX) 40 10-22 tablet (40 Bird kes - MG tablet 00:00: 23:59 mg total) Me dical 00 :00 by mouth Center daily. NIFEdipine 2020- No 30mg QD Take [address] (ADALAT CC) 10-22 tablet (30 L ukes - 30 MG 24 hr 00:00: 23:59 mg total) Medical tablet 00 :00 by mouth Center daily. amitriptyli Yes 50mg QD Take [address] ne (ELAVIL) 10-21 by mouth Luke s - 50 MG 12:33: nightly. Medical tablet 58 Center DULoxetine Yes 20mg QD Take [address] (CYMBALTA) 7-06 by mouth [facility] - 20 MG 12:33: daily. Medical capsule 58 Center magnesium 2019-0 Yes 500mg Q.5D Take [address] gluconate 7-06 mg by [facility] - (MAGONATE) 12:33: mouth 2 Medi donna 27.5 mg 58 (two) Center magne- sium times (500 mg) daily. tablet ferrous 2019-0 Yes 325mg Take 325 [facility] sulfate 325 7-06 mg by [facility] - (65 FE) MG 12:33: mouth Medica l tablet 58 daily with Center breakfast. cholecalcif 2019-0 Yes Take by [facility] veronica, 7-06 mouth. [facility] - vitamin D3, 12:33: Medica l 2,000 unit 58 Center Cap cyanocobala 2019-0 Yes QD Take by [facility] min 7-06 mouth [facility] - (VITAMIN 12:33: daily. Medical B-12) 100 58 Center MCG tablet Procedures This patient has no known procedures. Plan of Care Planned Activity Planned Date Details Comments Source Future Scheduled 2021-10-[address] [facility] - Test 00:00:00 (procedure) [code = [facility] Center 85938865] Future Scheduled 2020-04-[address] [facility] - Test 00:00:00 (12+) [code = [facility] Center DEPRESSION SCREENING (12+)] Future Scheduled 2020-02-17 Medicare IPPE (WELCOME [facility] - Test 00:00:00 TO MEDICARE) [code = [facility] Medicare IPPE (WELCOME TO MEDICARE)] Future Scheduled 2019-12-18 INFLUENZA VACCINE (#1) [facility] - Test 00:00:00 [code = INFLUENZA Medical Ce nter VACCINE (#1)] Future Scheduled 2019-04-[address] Bird kes - Test 00:00:00 measurement [facility] (procedure) [code = 86036728] Future Scheduled 1991-10-[address] [facility] - Test 00:00:00 malignant neoplasm of Medica l Center cervix (procedure) [code = 670581786] Future Scheduled 1989 DTAP/TDAP/TD VACCINES [facility] - Test 00:00:00 (1 - Tdap) [code = Medical C enter DTAP/TDAP/TD VACCINES (1 - Tdap)] Future Scheduled 1988 HEPATITIS C SCREENING [facility] - Test 00:00:00 [code = HEPATITIS C Medical Center SCREENING] Future Scheduled 1980 DIABETIC EYE EXAM [facility] - Test 00:00:00 [code = DIABETIC EYE Medical Center EXAM] Future Scheduled [address] [facility] - Test 00:00:00 examination Medical Center (regime/therapy) [code = 548761024] Future Scheduled 1980 Urine screening for [facility] - Test 00:00:00 protein (procedure) Medical Center [code = 563855358] Future Scheduled [address] [facility] - Test 00:00:00 0-64 YRS (1 of 1 - Medical C enter PPSV23) [code = PNEUMOCOCCAL VACCINE 0-64 YRS (1 of 1 - PPSV23)] Encounters Start End Encounter Admission Attending Care Care Encounter Source Date/Time Date/Time Type Type Clinicians Facility Department ID 2020-03-11 2020-03-11 Outpatient MIRIAN PANG [facility] [id number] [place] 00:00:00 00:00:[address] 2020-02-19 2020-02-19 Outpatient BIRD [facility] [id number] [place] 00:00:00 00:00:[address] 2020-02-05 2020-02-05 Outpatient [facility] [id number] [place] 00:00:00 00:00:[address] 2020-02-05 2020-02-05 Outpatient BIRD [facility] [id number] [place] 00:00:00 00:00:[address] 2020-01-08 2020-01-08 Outpatient BIRD [facility] [id number] [place] 00:00:00 00:00:[address] 2020-01-04 2020-01-04 Outpatient BIRD [facility] [id number] [place] 00:00:00 00:00:[address] 2020-01-04 2020-01-04 Outpatient WOJCIECHOWS [facility] [id number] [place] 00:00:00 00:00:00 KI, [address] 2020-01-02 2020-01-02 Outpatient [facility] [id number] [place] 00:00:00 00:00:[address] 2020-01-02 2020-01-02 Outpatient MIRIAN PANG [facility] [id number] [place] 00:00:00 00:00:[address] 2018 2018 Outpatient [facility] [id number] [place] 04:57:00 08:15:00 [facility] Results Test Description Test Time Test Comments Results Result [facility] e Comments BONE MARROW EXAM 2018-11-14 Bone Marrow Pathology 14:30:00 Report Case: [id number] Authorizing Provider: Tiff Colmenares MD Collected: 10/20/2018 1030 Ordering Location: [address] Received: 10/20/2018 1151 Service Pathologist: Damián [...] CIRCULATING BLASTS. Signing Pathologist Direct Phone Line: [phone] y signed by Damián Mckeon MD on 10/24/2018 at 4:50 PMThere is no morphologic or immunophenotypic evidence of lymphoma or acute leukemia. This patient has a reported clinical history of anemia and hepatosplenomegaly as per the electronic medical records in [facility]. The morphologic finding of the megakaryocytes is nonspecific and could be reactive however they raise concern for the presence of an evolving myeloid neoplasm. Molecular and cytogenetic studies are currently pending, with results to be issued in an addendum report. 56020; 23396; 47847 x 2; 02810; 43231, 87320, 84522t9Wrehzv Bone marrow The case is received in three parts all labeled with the patient's name, Jose Barbour, date of 1970, and accession number, [id number], which corresponds to the accompanying requisition page [...] evaluated Immunohistochemistry technical testing was performed at [facility], Pathology Laboratory where it was developed [...] CASE # (OPAL) (test code = 2759) [id number] FLOW [id number] 09:46:00Flow Cytometry Report Case: [id number] Authorizing Provider: Tiff Colmenares MD Collected: 10/20/2018 1151 Ordering Location: [address] Received: 10/20/2018 1336 Service Pathologist: Damián Mckeon MD Specimen: Other BONE MARROW, FLOW CYTOMETRY:NO MONOCLONAL B CELL POPULATION.NO ABNORMAL T CELL POPULATION.NO INCREASED BLAST POPULATION.CORRELATION WITH MORPHOLOGIC FINDINGS REQUIRED. [id number] marrow CD8, surface-Merrill, CD56, surface-Lambda, CD5, CD19, CD10, CD3, CD20, CD4, CD45, CD14, CD13, CD33, CD117, CD34, cKappa, cLambda, CD38, AZ630Ygkgjahs Viability: 97.2% Blasts: The dim CD45+ CD34+ [...] Test performed by IFA method.ANGELES TITER AND [id number] 11:18:00 Test Item Value Reference Range Interpretation Comments ANGELES TITER (BEAKER) (test code = :160 1541) ANGELES PATTERN (BEAKER) (test code = Nucleolar 1781) HEPATITIS A [id number] 08:30:00 Test Item Value Reference Range Interpretation Comments HEPATITIS A IGM ANTIBODY (BEAKER) Nonreactive Nonreactive (test code = 498) HEPATITIS A IGG ANTIBODY (BEAKER) Reactive Nonreactive A (test code = 2797) POCT-GLUCOSE [id number] 08:29:00 Test Item Value Reference Range Interpretation Comments POC-GLUCOSE METER 270 mg/dL 70-[address] [facility] 67[address] [facility] (test code = [facility] 1538) [address] HEPATITIS B [id number] 08:29:00 Test Item Value Reference Range Interpretation Comments HEPATITIS B CORE TOTAL ANTIBODY Nonreactive Nonreactive (BEAKER) (test code = 497) HEPATITIS B SURFACE ANTIBODY < mIU/mL <8.0 (BEAKER) (test code = 647) HEPATITIS B SURFACE ANTIGEN (2) Nonreactive Nonreactive (BEAKER) (test code = 2585) BASIC METABOLIC [id number] 06:54:00 Test Item Value Reference Range Interpretation [...] 697) EGFR (BEAKER) (test 18 mL/min/1.73 ESTIMA GURVIDNER GFR IS code = 1092) sq m NOT ACCURATE CREATININE CLEARANCE IN PREDICTING GLOMERULAR FILTRATION RATE . ESTIMATED GFR I S NOT APPLICABLE FOR DIALYSIS PATIEN TS. [id number] 06:50:00 Test Item Value Reference Range Interpretation Comments MAGNESIUM (BEAKER) (test code = 2.1 mg/dL 1.6-2.6 627) HEPATIC FUNCTION [id number] 06:50:00 Test Item Value Reference Range Interpretation [...] 224 U/L 125-220 H code = 635) [id number] 06:20:00 Test Item Value Reference Range Interpretation Comments FERRITIN (BEAKER) (test code = 1162 ng/mL 5-275 H 361) POCT-GLUCOSE [id number] 21:09:00 Test Item Value Reference Range Interpretation Comments POC-GLUCOSE METER 336 mg/dL 70-110 H Notified R Magdy ARVIZU/TESTED (BEAKER) (test code = AT [facility] [address] 1538) [facility] 7703 0 POCT-GLUCOSE [id number] 18:17:00 Test Item Value Reference Range Interpretation Comments POC-GLUCOSE METER 308 mg/dL 70-[address] [facility] 6720 (BEAKER) (test code = SALMANE R [facility] 1538) [address] PROTEIN ELECTROPHORESIS, [id number] 17:39:00 Test Item Value Reference Range Interpretation [...] and concomitant chronic immune or inflammatory response. [id number] Armani To M.D. (BEAKER) (test code = (electonic signature) 2616) PROTEIN TOTAL SERUM, 7.6 gm/dL 6.0-8.3 SPEP (BEAKER) (test code = 1120) BONE MARROW PROCESS.2018-10-20 12:02:00 Test Item Value Reference Range Interpretation Comments ANATOMIC CASE# (BESUZIE) (test code M19-113 = 6710) ORDERED BY DOCTOR# ANNALISA) (test Escudier code = 4887) PERFORMED BY DOCTOR# (OPAL) (test Staniszki code = 2268) CLOT RECEIVED? (BESUZIE) (test code Yes = 2459) BIOPSY RECEIVED? [...] bone was performed. This wasgiven to the wind turbine service technician who was present at the time of the study and deemed adequate. Subsequently, a core biopsy was obtained. This was also given to the wind turbine service technician. COMPLICATIONS:None. ESTIMATED BLOOD LOSS: Minimal. Patient Disposition: The patient was in the same state post procedure as preprocedure. IMPRESSION: Successful CT-guided aspiration and core biopsy of the bone marrow. Signed: Long Shepherdepcarol Verified Date/Time: 10/20/2018 11:46:15 Reading Location: [facility] C013X [facility] Consult Reading Room 1 1:46 AMPOCT-GLUCOSE [id number] 11:37:00 Test Item Value Reference Range Interpretation Comments POC-GLUCOSE METER 213 mg/dL 70-[address] [facility] 6720 (BEAKER) (test code = MICHAEL [place] 1537) [address] CBC W/PLT COUNT & AUTO [id number] 10:17:00 Test Item Value Reference Range Interpretation [...] Received comment: User comments: Slide comments:BASIC METABOLIC [id number] 07:15:00 Test Item Value Reference Range Interpretation [...] S NOT APPLICABLE FOR DIALYSIS PATIEN TS. [id number] 06:12:00 Test Item Value Reference Range Interpretation Comments MAGNESIUM (BEAKER) 2.0 mg/dL 1.6-2.6 Specimen slightly (test code = 627) hemolyzed [id number] 06:12:00 Test Item Value Reference Range Interpretation Comments PHOSPHORUS (BEAKER) 4.7 mg/dL 2.3-4.7 Specimen slightly (test code = 604) hemolyzed [id number] 06:06:00 Test Item Value Reference Range Interpretation [...] is2.5-3.5 for patients wiht mechanical heart valves.POCT-GLUCOSE [id number] 21:39:00 Test Item Value Reference Range Interpretation Comments POC-GLUCOSE METER 327 mg/dL 70-110 H Will Repea t Test/TESTED (BEAKER) (test code = AT [facility] [address] 1538) [facility] 7703 0 POCT-GLUCOSE [id number] 17:28:00 Test Item Value Reference Range Interpretation Comments POC-GLUCOSE METER 244 mg/dL 70-[address] [facility] 6720 (BEAKER) (test code = MIC[place]EL [place] 1538) [address] RHEUMATOID FACTOR AB, REFLEX TO [id number] 11:15:00 Test Item Value Reference Range Interpretation Comments RHEUMATOID FACTOR (BEAKER) (test Negative code = 573) CBC W/PLT COUNT & AUTO [id number] 09:44:00 Test Item Value Reference Range Interpretation [...] 3438) Received comment: User comments: Slide comments:POCT-GLUCOSE [id number] 09:05:00 Test Item Value Reference Range Interpretation Comments POC-GLUCOSE METER 166 mg/dL 70-[address] [facility] 6720 (BEAKER) (test code = MICHAEL [place] 1538) [address] COMPREHENSIVE METABOLIC [id number] 07:14:00 Test Item Value Reference Range Interpretation [...] S NOT APPLICABLE FOR DIALYSIS PATIEN TS. [id number] 06:36:00 Test Item Value Reference Range Interpretation Comments MAGNESIUM (BEAKER) 2.0 mg/dL 1.6-2.6 Specimen slightly (test code = 627) hemolyzed [id number] 06:36:00 Test Item Value Reference Range Interpretation Comments PHOSPHORUS (BEAKER) 4.4 mg/dL 2.3-4.7 Specimen slightly (test code = 604) hemolyzed URIC [id number] 06:36:00 Test Item Value Reference Range Interpretation Comments URIC ACID (BEAKER) 9.8 mg/dL 2.6-7.2 H Specimen slightly (test code = 773) hemolyzed HEPATIC FUNCTION [id number] 06:36:00 Test Item Value Reference Range Interpretation [...] 0-100 H (test code = 700) PROTHROMBIN [id number] 06:06:00 Test Item Value Reference Range Interpretation [...] is2.5-3.5 for patients wiht mechanical heart valves.CALCIUM, [id number] 05:56:00 Test Item Value Reference Range Interpretation Comments CALCIUM IONIZED (BEAKER) (test 1.10 mmol/L 1.12-1.27 L code = 698) PH, BLOOD (BEAKER) (test code = 7.38 1810) CALCIUM, [id number] 05:56:00 Test Item Value Reference Range Interpretation Comments CALCIUM IONIZED (OPAL) (test 1.07 mmol/L 1.12-1.27 L code = 698) PH, BLOOD (OPAL) (test code = 7.41 1810) POCT-GLUCOSE [id number] 21:33:00 Test Item Value Reference Range Interpretation Comments POC-GLUCOSE METER 297 mg/dL 70-[address] [facility] 6720 (SUZIE) (test code = MICHAEL [place] 1538) [address] CMV PCR, [id number] 18:31:00 Test Item Value Reference Range Interpretation Comments CMV VIRAL LOAD - Negative or below the NEGATIVE (AKER) (test linear range of the code = [...] and its performance characteristics determined by the [facility] Path ology Department, Section of Molecular Pathology. It has not been cleared or approved by the U.S. Food and Drug Administration (FDA), since FDA approval is not required for clinical use of the test. Validation was done as required by The Clinical Laboratory Improvement Amendments of 1988.EBV VIRAL [id number] 18:23:00 Test Item Value Reference Range Interpretation [...] (2) real-time PCR amplification and detection with INAP-5-hgoncqre primers and probes. A well-conserved region of the EBNA-1 gene is targeted, along with an internal control sequence used to confirm PCR amplification. Asymptomatic carriers and viral genetic variation, among other factors, can affect the accuracy of nucleic acid testing; therefore, results should be interpreted in light of clinical data.This test was developedand its performance characteristics determined by the [facility] Pathology Department, Section of Molecular Pathology. It has not been cleared or approved by the U.S. Food and Drug Administration (FDA), since FDA approval is not required for clinical use of the test. Validation was doneas required by The Clinical Laboratory Improvement Amendments of 1988.POCT-GLUCOSE [id number] 18:02:00 Test Item Value Reference Range Interpretation Comments POC-GLUCOSE METER 198 mg/dL 70-[address] [facility] 6720 ([facility]) (test code = SALMAANEESH [place] 1538) [address] RESPIRATORY PANEL [id number] 17:32:00 Test Item Value Reference Range Interpretation [...] This sample was tested at the [facility] Molecular Diagnostics Laboratory using the iDoc24 FilmArray Respiratory Panel. It is FDA cleared and has been verified and approved by the [facility] Molecular Diagnostics Laboratory for clinical use on nasopharyngeal swab specimens.The performance of the FilmArrayRP has not been established in individuals who received influenza vaccine. Recent administration ofa nasal influenza vaccine may cause false positive results for Influenza A and/orInfluenza B.EOSINOPHIL SMEAR, [id number] 16:42:00 Test Item Value Reference Range Interpretation Comments EOSINOPHIL SMEAR, URINE Rare EOS =less than No EOS seen A (BEAKER) (test code = 5% WBCs seen are EOS 1851) CT, CHEST, WITHOUT [id number] 16:31:00FINAL REPORT CT Chest, abdomen, and pelvis [...] within the pelvic cul-de-sac, nonspecific. Signed: Mani Morelied Date/Time: 10/18/2018 16:31:25 Reading Location: [facility] Radiology Reading Room [facility], [id number] 16:31:00Reason for exam:->hepatosplenomegalyFINAL REPORT CT Chest, abdomen, [...] Reading Location: [facility] Radiology Reading Room CBC W/PLT COUNT & AUTO [id number] 15:06:00 Test Item Value Reference Range Interpretation [...] Negative Negative, Inconclusive (test code = 1623) [id number] 13:19:00 Test Item Value Reference Range Interpretation Comments FERRITIN (BEAKER) (test code = 6230 ng/mL 5-275 H 361) HIV-1 ANTIGEN WITH HIV-1/2 [id number] 12:57:00 Test Item Value Reference Range Interpretation Comments HIV-1 ANTIGEN WITH HIV 1\\T\\2 Nonreactive Nonreactive ANTIBODY (2) (BEAKER) (test code = 2586) [id number] 12:53:00 Test Item Value Reference Range Interpretation Comments HAPTOGLOBIN (BEAKER) (test code = 301 mg/dL 14-258 H 366) [id number] 12:34:00 Test Item Value Reference Range Interpretation [...] is within 95-100% range.ALPHA FETOPROTEIN (AFP), TUMOR [id number] 12:29:00 Test Item Value Reference Range Interpretation Comments ALPHA-FETOPROTEIN (BEAKER) (test code < ng/mL <10.0 = 1094) [id number] 11:08:00 Test Item Value Reference Range Interpretation Comments TRIGLYCERIDES (BEAKER) (test code = 299 mg/dL 540) TRIGLYCERIDE REFERENCE RANGELow Risk <150Borderline Risk 150-199High Risk 200-499Very High Risk>=500POCT-GLUCOSE [id number] 11:05:00 Test Item Value Reference Range Interpretation Comments POC-GLUCOSE METER 248 mg/dL 70-[address] [facility] 6720 ([facility]) (test code = [place]EL [place] 1538) [address] RETICULOCYTE [id number] 11:05:00 Test Item Value Reference Range Interpretation [...] 20-55 L (test code = 2590) POCT-GLUCOSE [id number] 08:55:00 Test Item Value Reference Range Interpretation Comments POC-GLUCOSE METER 198 mg/dL 70-[address] [facility] 6720 (BEAKER) (test code = MIC[place]EL [place] 1538) [address] [id number] 06:57:00 Test Item Value Reference Range Interpretation Comments PHOSPHORUS (BEAKER) (test code = 4.5 mg/dL 2.3-4.7 604) [id number] 06:57:00 Test Item Value Reference Range Interpretation Comments MAGNESIUM (BEAKER) (test code = 1.7 mg/dL 1.6-2.6 627) HEPATIC FUNCTION [id number] 06:57:00 Test Item Value Reference Range Interpretation [...] 693 U/L 6-55 H 347) BASIC METABOLIC [id number] 06:57:00 Test Item Value Reference Range Interpretation [...] NOT APPLICABLE FOR DIALYSIS PATIEN TS. PROTHROMBIN [id number] 06:37:00 Test Item Value Reference Range Interpretation Comments PROTIME (BESUZIE) (test code = 14.3 seconds 11.9-14.2 H 759) INR (BEAKER) (test code = 370) 1.2 <=5.9 Effective 09/13/2018: PT Reference Range ChangeNew: 11.9-14.2 Previous: 11.7- 14.7RECOMMENDED COUMADIN/WARFARIN INR THERAPY RANGESSTANDARD DOSE: 2.0-3.0 Includes: PROPHYLAXIS for venous thrombosis, systemic embolization; TREATMENT for venous thrombosis and/or pulmonary embolus.HIGH RISK: Target INR is2.5-3.5 for patients wiht mechanical heart valves.CALCIUM, [id number] 06:19:00 Test Item Value Reference Range Interpretation Comments CALCIUM IONIZED (RADHAAKER) (test 1.09 mmol/L 1.12-1.27 L code = 698) PH, BLOOD (OPAL) (test code = 7.36 1810) POCT-GLUCOSE [id number] 21:54:00 Test Item Value Reference Range Interpretation Comments POC-GLUCOSE METER 281 mg/dL 70-[address] [facility] 6720 (OPAL) (test code = SALMAANEESH Garcia [facility] 1538) [address] RAD, CHEST, 1 VIEW, NON [id number] 19:11:00Reason for exam:->SOBShould this be performed at [...] MDReport Verified Date/Time: 10/17/2018 19:11:02 Reading Location: [facility] B1 C013W Consult Reading Room [id number] 17:36:00 Test Item Value Reference Range Interpretation Comments FERRITIN (BEAKER) (test code = 17176 ng/mL 5-275 H 361) LACTATE DEHYDROGENASE (LDH)2018-10-17 16:41:00 Test Item Value Reference Range Interpretation Comments LACTATE DEHYDROGENASE (BEAKER) (test 541 U/L 125-220 H code = 635) [id number] 16:37:00 Test Item Value Reference Range Interpretation Comments FIBRINOGEN LEVEL (BEAKER) (test 439 mg/dl 225-434 H code = 658) POCT-GLUCOSE [id number] 12:47:00 Test Item Value Reference Range Interpretation Comments POC-GLUCOSE METER 250 mg/dL 70-[address] [facility] 6720 (OPAL) (test code = MICHAEL Garcia [place] 1538) [address] PUL PERF IMAGING, PARTIC, [id number] 10:48:00FINAL REPORT PROCEDURE: V/Q LUNG SCAN CPT CODE: 60698 INDICATION: Acute chest pain pulmonary origin PROTOCOL: [...] MDReport Verified Date/Time: 10/17/2018 10:48:21 Reading Location: [facility] 26[facility] [address] Med Reading Room U/S, PELVIC, [id number] 10:02:00Reason for exam:->AKIFINAL REPORT Abdominal and pelvic [...] Normal Doppler of the abdomen. Signed: [facility] Verified Date/Time: 10/17/2018 10:02:56 Reading Location: [address] Radiology Reading Room U/S, ABDOMINAL, WITH [id number] 10:02:00Reason for exam:->elevated transaminasesFINAL REPORT Abdominal and [...] of the abdomen. Signed: Leobardo Ayoub Verified Date/Time:10/17/2018 10:02:56 Reading Location: [address] Radiology Reading Room VITAMIN B12 AND [id number] 08:37:00 Test Item Value Reference Range Interpretation Comments VITAMIN B12 (OPAL) (test code = > pg/mL 213-816 H 774) FOLATE (OPAL) (test code = 362) 13.3 ng/mL >=7.0 POCT-GLUCOSE [id number] 08:32:00 Test Item Value Reference Range Interpretation Comments POC-GLUCOSE METER 168 mg/dL 70-110 H TESTED AT [place] [address] (OPAL) (test code = MICHAEL [place] 1538) [address] [id number] 08:03:00 Test Item Value Reference Range Interpretation Comments FERRITIN (BEAKER) (test code = 67038 ng/mL 5-275 H 361) URIC [id number] 06:15:00 Test Item Value Reference Range Interpretation Comments URIC ACID (BEAKER) (test code = 13.2 mg/dL 2.6-7.2 H 773) [id number] 06:15:00 Test Item Value Reference Range Interpretation Comments MAGNESIUM (BEAKER) (test code = 1.8 mg/dL 1.6-2.6 627) LIPID [id number] 06:15:00 Test Item Value Reference Range Interpretation [...] 130-159 High 160-189 Very High >=190HEPATIC FUNCTION [id number] 06:15:00 Test Item Value Reference Range Interpretation [...] 1009 U/L 6-55 H 347) COMPLEMENT COMPONENT [id number] 06:15:00 Test Item Value Reference Range Interpretation Comments C4 COMPLEMENT (BEAKER) (test code = 28 mg/dL 15-57 394) COMPLEMENT COMPONENT [id number] 06:15:00 Test Item Value Reference Range Interpretation [...] L (test code = 2590) BASIC METABOLIC [id number] 06:15:00 Test Item Value Reference Range Interpretation [...] NOT APPLICABLE FOR DIALYSIS PATIEN TS. PROTHROMBIN [id number] 05:57:00 Test Item Value Reference Range Interpretation [...] mechanical heart valves.CBC W/PLT COUNT & AUTO [id number] 05:55:00 Test Item Value Reference Range Interpretation [...] PERCENT (BEAKER) (test code = 2801) TROPONIN [id number] 01:09:00 Test Item Value Reference Range Interpretation [...] acidosis, acute neurological disease, and persistent tachyarrhythmia.OSMOLALITY, [id number] 22:24:00 Test Item Value Reference Range Interpretation Comments OSMOLALITY URINE (BEAKER) (test 317 mOsm/kg 40-1,400 code = 614) HEMOGLOBIN [id number] 22:20:00 Test Item Value Reference Range Interpretation Comments HEMOGLOBIN A1C (BEAKER) (test code = 7.2 % 4.3-6.1 H 368) URINALYSIS W/ [id number] 22:19:00 Test Item Value Reference Range Interpretation [...] code = 516) SOURCE(BEAKER) (test code = 8857) POCT-GLUCOSE [id number] 22:09:00 Test Item Value Reference Range Interpretation Comments POC-GLUCOSE METER 171 mg/dL 70-[address] [facility] 6720 (BEAKER) (test code = MICHAEL Garcia [place] 1538) [address] PROTEIN, RANDOM [id number] 21:36:00 Test Item Value Reference Range Interpretation Comments PROTEIN, URINE (BEAKER) (test code = 44 mg/dL 0-14 H 1569) CHLORIDE, RANDOM [id number] 21:30:00 Test Item Value Reference Range Interpretation Comments CHLORIDE URINE (BEAKER) (test code = 96 meq/L 682) Reference Range: No NormalsCREATININE, RANDOM [id number] 21:09:00 Test Item Value Reference Range Interpretation Comments CREATININE URINE (BEAKER) (test 30.6 mg/dL code = 375) Reference Range: No NormalsSODIUM, RANDOM [id number] 21:09:00 Test Item Value Reference Range Interpretation Comments SODIUM URINE (BEAKER) (test code = 90 meq/L 243) Reference Range: No NormalsUREA NITROGEN, RANDOM [id number] 21:09:00 Test Item Value Reference Range Interpretation Comments UREA NITROGEN URINE (BEAKER) (test 232 mg/dL code = 538) Reference Range: No NormalsHEPATITIS PANEL, [id number] 20:39:00 Test Item Value Reference Range Interpretation Comments HEPATITIS A IGM ANTIBODY (BEAKER) Nonreactive Nonreactive (test code = 498) HEPATITIS B CORE IGM ANTIBODY Nonreactive Nonreactive (BEAKER) (test code = 645) HEPATITIS C ANTIBODY (BEAKER) Nonreactive Nonreactive (test code = 367) HEPATITIS B SURFACE ANTIGEN (2) Nonreactive Nonreactive (BEAKER) (test code = 2585) URINALYSIS W/ REFLEX URINE [id number] 20:12:00 Test Item Value Reference Range Interpretation [...] 1584) SOURCE(BEAKER) (test code = 2795) TROPONIN [id number] 19:15:00 Test Item Value Reference Range Interpretation [...] acute neurological disease, and persistent tachyarrhythmia.COMPREHENSIVE METABOLIC [id number] 19:15:00 Test Item Value Reference Range Interpretation [...] U/L 29-200 H code = 380) SALICYLATE [id number] 19:11:00 Test Item Value Reference Range Interpretation Comments SALICYLATE LEVEL (BEAKER) (test code < mg/dL 15.0-30.0 L = 764) Therapeutic Range: 15.0-30.0 mg/dLToxic: >30.0 mg/dL Lethal: >70.0 mg/dLACETAMINOPHEN [id number] 19:10:00 Test Item Value Reference Range Interpretation Comments ACETAMINOPHEN LEVEL (BEAKER) (test < ug/mL 10.0-30.0 L code = 344) Therapeutic Range: 10.0-30.0 g/mLToxic Levels: >200.0 g/mLPROTHROMBIN TIME/[id number] 18:59:00 Test Item Value Reference Range Interpretation [...] mechanical heart valves.CBC W/PLT COUNT & AUTO [id number] 18:52:00 Test Item Value Reference Range Interpretation [...] code = 2801) GLUCOMETER GLUCOSE- LAB USE [id number] 06:59:00 Test Item Value Reference Range Interpretation Comments GLUCOMETER (test code 219 mg/dL 70-[address] JOSE CARLOS DHILLON = G) AWAREMeter ID: [id number] tor: [id number] LEACH NG GLUCOMETER GLUCOSE- LAB USE [id number] 04:45:00 Test Item Value Reference Range Interpretation Comments GLUCOMETER (test code = 212 mg/dL 70-100 H Mete r ID: [facility]) [id number] tor: [id number]
[2020-07-03 19:19] LABS: Absolute Lymphocytes (CBC) 0.9 K/uL (0.7-4.9); Basophils % 1.1 % (0-1.3); Hematocrit 29.7 % (36.0-45.0); Lymphocytes % 17.4 % (15.3-44.8); MPV 8.9 fL (7.6-11.3); RBC Red Blood Cell Count 3.39 M/uL (3.86-4.86)
[2020-07-03 19:20] LABS: Protime INR 0.87
--- NOTE | 2020-07-03 19:48 | RAD REPORT ---
EXAM DESCRIPTION: RAD - Chest Single View - 07/03/2020 7:33 pm CLINICAL HISTORY: DYSPNEA COMPARISON: Portable November 2019 TECHNIQUE: AP portable chest image was obtained 07/03/2020 7:33 pm . FINDINGS: No peripheral mass or consolidation. Interstitial markings are accentuated by low lung vol umes, portable technique and large body habitus. Minimal interstitial edema or infiltrate could be ma sked. Dialysis catheter has been removed since prior imaging. Heart and vasculature are normal. No me asurable pleural effusion and no pneumothorax. No acute bony abnormality seen. No acute aortic findin gs suspected. IMPRESSION: No acute cardiopulmonary process. Chest is not substantially different from comparison.
[2020-07-03 20:19] LABS: ALT/SGPT 25 U/L (12-78); AST/SGOT 18 U/L (15-37); Albumin 3.3 g/dL (3.4-5.0); BUN Blood Urea Nitrogen 24 mg/dL (7-18); Bicarbonate 27 mmol/L (21-32); Bilirubin Direct < 0.1 mg/dL (0-0.2); Bilirubin Total 0.2 mg/dL (0.2-1.0); Glucose Level 79 mg/dL (74-106); NT PRO-BNP 3773 pg/mL (<125); Potassium 3.2 mmol/L (3.5-5.1); Protein, Total 8.4 g/dL (6.4-8.2); Sodium Level 140 mmol/L (136-145); Troponin (Emerg Dept Use Only) 0.03 ng/mL (0.0-0.045)
[2020-07-03 20:21] LABS: Magnesium 1.4 mg/dL (1.8-2.4)
[2020-07-03 20:25] LABS: Alkaline Phosphatase ND U/L (45-117)
[2020-07-03] MEDS ORDERED: MAGNESIUM OXIDE 400 MG TAB ONE (20:48)
--- NOTE | 2020-07-03 21:08 | ER ---
Nurse's Notes [facility] Name: Emily Barbour Age: 49 yrs Sex: Female : 1970 Arrival Date: 07/03/2020 Time: 17:55 Bed 4 Private MD: Jean-Paul Cameron Diagnosis: Presentation: 07/03 18:25 Chief complaint: Patient states: SOB x 1 week. Last negative covid test was 2 weeks ca1 ago. Pt on dialysis MWF. Denies cough, fever. had dialysis yesterday. Coronavirus screen: Client denies travel out of the [place] in the last 14 days. shortness of breath, Client presents with at least one sign or symptom that may indicate coronavirus-19. Standard/surgical mask placed on the client. Provider contacted for isolation considerations. Ebola Screen: Patient negative for fever greater than or equal to 101.5 degrees Fahrenheit, and additional compatible Ebola Virus Disease symptoms Patient denies exposure to infectious person. Patient denies travel to an Ebola-affected area in the 21 days before illness onset. No symptoms or risks identified at this time. Initial Sepsis Screen: Does the patient meet any 2 criteria? No. Patient's initial sepsis screen is negative. Does the patient have a suspected source of infection? No. Patient's initial sepsis screen is negative. Risk Assessment: Do you want to hurt yourself or someone else? Patient reports no desire to harm self or others. Onset of symptoms was July 03, 2020. 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 - Hysterectomy ca1 Historical: - Allergies: 18:30 Benadryl; ca1 18:30 metformin; ca1 18:30 shrimp; ca1 18:30 Tradjenta; ca1 - Home Meds: 18:30 amitriptyline 100 mg oral tab 1 tab once daily [Active]; levothyroxine 50 mcg tab 1 tab ca1 once daily [Active]; magnesium gluconate 27 mg (500 mg) Oral tab twice a day [Active]; carvedilol 12.5 mg Oral tab 1 tab 2 times per day [Active]; fenofibrate 160 mg Oral tab 1 tab once daily [Active]; furosemide 40 mg Oral tab 1 tab once daily [Active]; pantoprazole 40 mg Oral TbEC 1 tab 2 times per day [Active]; duloxetine 30 mg oral cpDR 1 cap once daily [Active]; Humalog 100 unit/mL Sub-Q soln 30 unit three times a day [Active]; Toujeo SoloStar 300 unit/mL (1.5 mL) subcutaneous inpn 50 unit every morning [Active]; Trulicity subcutaneous once wkly [Active]; - PMHx: 18:30 Diabetes - IDDM; Anemia; High Cholesterol; Hypertension; ibs; Renal Disease; St 4; ca1 Tendonitis in Elbows; - PSHx: 18:30 Hysterectomy; Cholecystectomy; Appendectomy; breast reduction; heel; neck fusion; ca1 - Immunization history:: Flu vaccine is up to date. - Social history:: Smoking status: Patient/guardian denies using tobacco, the patient reports quitting approximately 7 years ago. Screenin:08 Abuse screen: Denies threats or abuse. Denies injuries from another. Nutritional sv screening: No deficits noted. Tuberculosis screening: No symptoms or risk factors identified. Fall Risk None identified. Assessment: 19:09 General: Appears in no apparent distress. Behavior is calm, cooperative. Pain: Denies hb pain. Neuro: Level of Consciousness is awake, alert, obeys commands, Oriented to person, place, time, situation. Cardiovascular: Reports since generalized edema Capillary refill < 3 seconds Patient's skin is warm and dry. Rhythm is regular. Respiratory: Reports shortness of breath on exertion Respiratory effort is even, unlabored, Respiratory pattern is regular, symmetrical. GI: No signs and/or symptoms were reported involving the gastrointestinal system. : No signs and/or symptoms were reported regarding the genitourinary system. EENT: No signs and/or symptoms were reported regarding the EENT system. Derm: Skin is pink, warm \T\ dry. Musculoskeletal: No signs and/or symptoms reported regarding the musculoskeletal system. 20:00 Reassessment: Patient appears in no apparent distress at this time. No changes from previously documented assessment. Patient and/or family updated on plan of care and expected duration. Pain level reassessed. Patient is alert, oriented x 3, equal unlabored respirations, skin warm/dry/pink. 21:05 Reassessment: Pt eloped, notified provider. Vital Signs: 18:25 BP 161 / 71; Pulse 100; Resp 20 S; Temp 98.7(TE); Pulse Ox 98% on R/A; Weight 102.6 kg ca1 (R); Height 5 ft. 5 in. (165.10 cm) (R); 20:00 BP 164 / 72; Pulse 98; Resp 18; Pulse Ox 97% on R/A; wh 18:25 Body Mass Index 37.64 (102.60 kg, 165.10 cm) ca1 ED Course: 17:55 Patient arrived in ED. am2 17:55 Jean-Paul Cameron DO is Private Physician. am2 17:58 EKG done, by ED staff, reviewed by Magda TOMPKINS. sv 18:27 Triage completed. ca1 18:30 Arm band placed on right wrist. ca1 18:36 Magda Dempsey FNP-C is [facility]. kb 18:36 Alli Krishnamurthy MD is Attending Physician. kb 18:50 Initial lab(s) drawn, by wv, sent to lab. Missed attempt(s): 20 gauge in right hb antecubital area. Bleeding controlled, band aid applied, catheter tip intact. 19:08 Report given to Dara RN and Joe SANDRA. sv 19:08 Patient has correct armband on for positive identification. Bed in low position. Call sv light in reach. Pulse ox on. NIBP on. 19:11 Dara Ellington, RN is Primary Nurse. wh 19:34 XRAY Chest (1 view) In Process Unspecified. EDMS 20:25 Notified Nurse Practitioner and/or Physician Telephone Solicitor Supervisor of a critical lab result(s), MAG dm5 1.4. 21:06 No provider procedures requiring assistance completed. Patient did not have IV access during this emergency room visit. Administered Medications: 20:33 Drug: Magnesium 400 mg Route: PO; rr5 20:52 Follow up: Response: No adverse reaction 21:03 Not Given (Patient Refused): Lasix 80 mg IVP once rr5 Outcome: 21:06 Eloped from patient exam room, after seeing physician Time discovered patient gone: July 03, 2020 at 21:05 21:06 Condition: stable 21:07 Patient left the ED. Signatures: Dispatcher [employer] EDMS Magda Dempsey FNP-C FNP-Ckb Markwardt, Deana, RN RN dm5 Rachel Murray, RN RN sv Jocelyne Mejia, RN RN hb Jacquie Hughes am2 Dara Ellington, RN RN wh Joe Robles, RN RN rr5 Quin Freeman, RN RN ca1
[2020-07-03 21:27] VITALS: TEMP 98.7
[2020-07-03 21:29] VITALS: BP 164/72; O2SAT 97
--- NOTE | 2020-07-04 21:09 | EDPHYS ---
Physician Documentation [facility] Name: Emily Barbour Age: 49 yrs Sex: Female : 1970 Arrival Date: 07/03/2020 Time: 17:55 Bed 4 Private MD: Jean-Paul Cameron ED Physician Alli Krishnamurthy HPI: 07/03 23:53 This 49 yrs old Female presents to ER via Ambulatory with complaints of kb Breathing Difficulty. 23:53 The patient has shortness of breath at rest. Onset: The symptoms/episode began/occurred kb 1 week(s) ago. Duration: The symptoms are continuous. The patient's shortness of breath is aggravated by nothing, is alleviated by nothing. Associated signs and symptoms: The patient has no apparent associated signs or symptoms. Severity of symptoms: At their worst the symptoms were moderate in the emergency department the symptoms are unchanged. The patient has experienced similar episodes in the past. The patient has not recently seen a physician. Pt reports shortness of breath for a week. States she gets this twice a year and has to have IV lasix. 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 - Hysterectomy ca1 Historical: - Allergies: 18:30 Benadryl; ca1 18:30 metformin; ca1 18:30 shrimp; ca1 18:30 Tradjenta; ca1 - Home Meds: 18:30 amitriptyline 100 mg oral tab 1 tab once daily [Active]; levothyroxine 50 mcg tab 1 tab ca1 once daily [Active]; magnesium gluconate 27 mg (500 mg) Oral tab twice a day [Active]; carvedilol 12.5 mg Oral tab 1 tab 2 times per day [Active]; fenofibrate 160 mg Oral tab 1 tab once daily [Active]; furosemide 40 mg Oral tab 1 tab once daily [Active]; pantoprazole 40 mg Oral TbEC 1 tab 2 times per day [Active]; duloxetine 30 mg oral cpDR 1 cap once daily [Active]; Humalog 100 unit/mL Sub-Q soln 30 unit three times a day [Active]; Toujeo SoloStar 300 unit/mL (1.5 mL) subcutaneous inpn 50 unit every morning [Active]; Trulicity subcutaneous once wkly [Active]; - PMHx: 18:30 Diabetes - IDDM; Anemia; High Cholesterol; Hypertension; ibs; Renal Disease; St 4; ca1 Tendonitis in Elbows; - PSHx: 18:30 Hysterectomy; Cholecystectomy; Appendectomy; breast reduction; heel; neck fusion; ca1 - Immunization history:: Flu vaccine is up to date. - Social history:: Smoking status: Patient/guardian denies using tobacco, the patient reports quitting approximately 7 years ago. ROS: 23:53 Constitutional: Negative for fever, chills, and weight loss, Cardiovascular: Negative kb for chest pain, palpitations, and edema, Abdomen/GI: Negative for abdominal pain, nausea, vomiting, diarrhea, and constipation, Back: Negative for injury and pain, MS/Extremity: Negative for injury and deformity, Skin: Negative for injury, rash, and discoloration, Neuro: Negative for headache, weakness, numbness, tingling, and seizure. 23:53 Respiratory: Positive for shortness of breath, Negative for cough. Exam: 23:53 Constitutional: This is a well developed, well nourished patient who is awake, alert, kb and in no acute distress. Head/Face: Normocephalic, atraumatic. Chest/axilla: Normal chest wall appearance and motion. Cardiovascular: Regular rate and rhythm with a normal S1 and S2. No gallops, murmurs, or rubs. No pulse deficits. Respiratory: Respirations even and unlabored. No increased work of breathing, no retractions or nasal flaring. Abdomen/GI: Soft, non-tender. No distention Skin: Warm, dry with normal turgor. Normal color. MS/ Extremity: Pulses equal, no cyanosis. Neurovascular intact. Full, normal range of motion. Neuro: Awake and alert, GCS 15, oriented to person, place, time, and situation. Moves all extremities. Normal gait. 23:54 ECG was reviewed by the Attending Physician. kb Vital Signs: 18:25 BP 161 / 71; Pulse 100; Resp 20 S; Temp 98.7(TE); Pulse Ox 98% on R/A; Weight 102.6 kg ca1 (R); Height 5 ft. 5 in. (165.10 cm) (R); 20:00 BP 164 / 72; Pulse 98; Resp 18; Pulse Ox 97% on R/A; wh 18:25 Body Mass Index 37.64 (102.60 kg, 165.10 cm) ca1 MDM: 18:36 Patient medically screened. kb 20:30 ED course: Pt ambulated to restroom with no obvious distress or increased work of kb breathing. Pt oxygen sat was 100% on room air upon arrival back to [facility]. 23:49 Immunization status:. Data reviewed: vital signs, nurses notes. Data interpreted: Pulse kb oximetry: on room air is 97 %. Interpretation: normal. Counseling: I had a detailed discussion with the patient and/or guardian regarding: the historical points, exam findings, and any diagnostic results supporting the discharge/admit diagnosis, lab results, radiology results. ED course: Educated pt on diagnostics and that there was no indication for admission. Pt states she needs IV lasix to get the fluid off her chest that has been building for a week. I called Dr Cameron for consult, he recommended Lasix 80mg IV and reassess. Educated pt on plan of care and she was in agreement. Approx 20 min later nurse informed me that pt decided to leave without IV lasix and didn't want to wait for discharge. Pt told nurse she would take her oral lasix and go to dialysis tomorrow.. 07/03 18:38 Order name: Basic Metabolic Panel kb 07/03 18:38 Order name: CBC with Diff kb 07/03 18:38 Order name: LFT's kb 07/03 18:38 Order name: Magnesium; Complete Time: 20:25 kb 18 18:38 Order name: NT PRO-BNP; Complete Time: 20:25 kb 18 18:38 Order name: PT-INR; Complete Time: 19:31 kb 07/03 18:38 Order name: Troponin (emerg Dept Use Only); Complete Time: 20:25 kb 18 18:38 Order name: XRAY Chest (1 view); Complete Time: 19:53 kb 07/03 18:39 Order name: Basic Metabolic Panel; Complete Time: 20:25 EDMS 07/03 18:39 Order name: CBC with Automated Diff; Complete Time: 19:31 EDMS 07/03 18:39 Order name: Liver (Hepatic) Function; Complete Time: 20:25 EDMS 07/03 20:32 Order name: SARS-COV-2 RT PCR; Complete Time: 20:32 EDMS 07/03 18:38 Order name: EKG; Complete Time: 18:39 kb 03 18:38 Order name: Cardiac monitoring; Complete Time: 19:12 kb 07/03 18:38 Order name: EKG - Nurse/Tech; Complete Time: 19:11 kb 07/03 18:38 Order name: Labs collected and sent; Complete Time: 19:12 kb 18 18:38 Order name: O2 Per Protocol; Complete Time: 19:12 kb 07/03 18:38 Order name: O2 Sat Monitoring; Complete Time: 19:12 kb Administered Medications: 20:33 Drug: Magnesium 400 mg Route: PO; rr5 20:52 Follow up: Response: No adverse reaction 21:03 Not Given (Patient Refused): Lasix 80 mg IVP once rr5 Disposition: 07/04 19:35 Co-signature as Attending Physician, Alli Krishnamurthy MD I agree with the assessment and tw4 plan of care. Disposition: 07/03/20 21:07 Patient left the facility after being seen by provider. - Patient left due to (see nurse's notes). Signatures: Dispatcher [employer] [facility] Magda Dempsey, COMMERCIAL ATTORNEY-C COMMERCIAL ATTORNEY-CkDara Spivey, RN RN Alli Krishnamurthy MD MD tw4 Joe Robles, RN RN rr5 Quin Freeman RN RN ca1 Corrections: (The following items were deleted from the chart) 07/03 19:42 18:39 CORONAVIRUS+ ordered. [facility] 23:55 23:54 Rate is 95 beats/min. Rhythm is regular. QRS [place] is Normal. GA interval is kb normal at 128 msec. QRS interval is normal at 78 msec. QT interval is normal at 368 msec. kb
== END 2020-07-03 21:07 | disposition left against medical advice (07) ==
LOC: ER 17:48
DX: R06.02 Shortness of breath (principal); Z20.822 Contact with and (suspected) exposure to COVID-19; E11.22 Type 2 diabetes mellitus with diabetic chronic kidney disease; N18.6 End stage renal disease; Z99.2 Dependence on renal dialysis; Z79.4 Long term (current) use of insulin; Z88.8 Allergy status to other drugs, medicaments and biological substances; Z91.013 Allergy to seafood
CPT/HCPCS: 93005; 85025; 80048; 36415; 83735; 85610; 80076; 84484; 83880; 71045; 99284; U0003

== ENCOUNTER 2021-04-08 16:01 | Emergency (ER) | payer OTHER ==
--- OUTSIDE RECORDS SUMMARY | 2021-04-08 16:06 | XMS REPORT | Continuity of Care Document ---
:1970 Author Organization [facility] t Address [address] [place] [address] Care Team Providers Name Role Phone PCP, DOES NOT HAVE A Primary Care Physician Unavailable 1, Lab Attending Clinician Unavailable Meagan ARVIZU Attending Clinician MEAGAN Attending Clinician Unavailable Doctor Unassigned, Name Attending Clinician Unavailable BIRD Attending Clinician Unavailable MD BIRD Attending Clinician Unavailable LINDY Attending Clinician Unavailable Farhat PAIGE Attending Clinician Unavailable DR XIOMARA Attending Clinician Unavailable BIRD Admitting Clinician Unavailable MD BIRD Admitting Clinician Unavailable Farhat PAIGE Admitting Clinician Unavailable DR XIOMARA Admitting Clinician Unavailable Payers Payer Name Policy Type Policy Number Effective Date Expiration Date S ource Problems Condition Condition Condition Status Onset Resolution Last Treating Co mments Source Name Details Category Date Date Treatment Clinician Date Vitamin D Vitamin D Disease Active 2013-04 Uni vers deficiency deficiency 2-15 it y of 00:00: [address] HTN HTN Disease Active 2013-04 Univers (hypertens (hypertens 2-10 it y of ion) ion) 00:00: [address] HLD HLD Disease Active 2013-04 Univers (hyperlipi (hyperlipi 2-10 it y of demia) demia) 00:00: [address] 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 2-10 it y of 00:00: [address] Screening Screening Disease Active 2013-04 Uni vers for for 2-10 [place] of endocrine[place] nutritiona 00 Me dical l, l, Branch metabolic metabolic and and immunity immunity disorder disorder Type II or Type II or Disease Active 2013-04 U nivers unspecifie unspecifie 2-10 it y of d type d type 00:00: [place] diabetes diabetes 00 Medica l mellitus mellitus Branch with with neurologic neurologic al al manifestat manifestat ions, ions, uncontroll uncontroll ed(250.62) ed(250.62) Neuropathy Neuropathy Disease Active 2013-04 U nivers 2-10 ity of 00:00: [place] [facility] Fatigue Fatigue Disease Active 2013-04 Univers 2-10 ity of 00:00: [place] [facility] Weight Weight Disease Active 2013-04 Univers gain gain 2-10 ity of 00:00: [place] [facility] Hypertrigl Hypertrigl Disease Active 2013-04 [facility] [place] yceridemia yceridemia 2-10 it y of 00:00: [place] [facility] Normocytic Normocytic Disease Active 2013-04 [facility] [place] anemia anemia 2-10 ity of 00:00: [place] [facility] Elevated Elevated Disease Active 2013-04 Unive rs serum serum 2-10 [place] of creatinine [place] [facility] Branch Allergies, Adverse Reactions, Alerts Allergy Allergy Status Severity Reaction(s) Onset Inactive Treating Comm ents Source Name Type Date Date Clinician METFORMI Allergy Active Other 2018-[address] [facility] [facility] 10[facility]16 [facility] 00 [place] LINAGLIP Allergy Active Diarrhea [facility] 00 [place] DIPHENHY Allergy Active Low Rash 2018-[address] DRAMINE 10-16 [facility] 00 Center BENADRYL DRUG Active Rash 2013-04 Univers DECONGES 2-10 ity of TANT 00:00: [place] [facility] PENICILL Drug Active Rash 2013-04 Univers INS Class 2-10 ity of 00:00: [place] [facility] Benadryl Propensi Active Rash 2013-04 When Univer s Deconges ty to 2-10 taken ity of tant adverse 00:00: with PCN [place] reaction Medical [facility] Penicill Propensi Active Rash 2013-04 When Univer s ins ty to 2-10 taking ity of adverse 00:00: together [place] reaction 00 with Medical s Benadryl Branch Social History Social Habit Start Date Stop Date Quantity Comments Source Exposure to Yes [facility] SARS-CoV-2 [place] [facility] (event) Branch Alcohol intake 2014-03-27 2014-03-27 Current University of 00:00:00 00:00:00 non-drinker of [facility] alcohol [place] (finding) Sex Assigned At [birth year] Universit y of 00:00:00 00:00:00 [facility] Branch Smoking Status Start Date Stop Date Source Former smoker [facility] xa Medical Branch Medications Ordered Filled Start Stop Current Ordering Indication Dosage Frequency Signature Comments Components Source Medication Medication Date Date Medication? Clinician (SIG) Name Name ergocalcife 2013-04 Yes [id number] Take 1 Cap Univers rol, 2-15 by mouth ity of vitamin d2, 00:00: weekly. Thien as (VITAMIN 00 Medical D2) 50,000 Branch unit capsule ergocalcife 2013-04 Yes [id number] Take 1 Cap Univers rol, 2-15 by mouth ity of vitamin d2, 00:00: weekly. [place]ien as (VITAMIN 00 Medical D2) 50,000 Branch unit capsule FERROUS 2013-04 Yes Take by Univer s SULFATE, 2-10 mouth. ity of DRIED 12:29: [place] (IRON, 37 Medical DRIED, Branch ORAL) OMEPRAZOLE 2013-04 Yes Take by Uni vers MAGNESIUM 2-10 mouth. ity of (PRILOSEC 12:29: [place] OTC ORAL) [address] [place] [address] Branch MULTIVITS,C 2013-04 Yes Take by Un amanda A,MINERALS/ 2-10 mouth. ity of IRON/FA 12:29: [place] (ONE-A-DAY 37 [facility] WOMENS Branch FORMULA ORAL) FERROUS 2013-04 Yes Take by Univer s SULFATE, 2-10 mouth. ity of DRIED 12:29: [place] (IRON, 37 Medical DRIED, Branch ORAL) OMEPRAZOLE 2013-04 Yes Take by Uni vers MAGNESIUM 2-10 mouth. ity of (PRILOSEC 12:29: [place] OTC ORAL) Medical Branch MULTIVITS,C 2013-04 Yes Take by Un amanda A,MINERALS/ 2-10 mouth. ity of IRON/FA 12:29: [place] (ONE-A-DAY 37 [facility] FORMULA ORAL) Fenofibrate 2014-1 Yes Take by Un amanda (LOFIBRA) 2-10 mouth. ity of 160 mg Tab 12:21: [place] [address] Medical Branch amitriptyli 2013-04 Yes 50mg Take 50 mg Univers ne (ELAVIL) 2-10 by mouth ity of 50 mg 12:21: at [place] tablet 19 bedtime. Medical Branch oxybutynin 2013-04 Yes 5mg Take 5 mg Un amanda chloride 2-10 by mouth 2 ity o f (DITROPAN) 12:21: (two) [place] 5 mg tablet 19 times Medical daily. Branch lisinopril 2013-04 Yes 20mg Take 20 mg U nivers (PRINIVIL,Z 2-10 by mouth ity of ESTRIL) 20 12:21: daily. [place] mg tablet Medical Branch Fenofibrate 2013-04 Yes Take by Un amanda (LOFIBRA) 2-10 mouth. ity of 160 mg Tab 12:21: [place] [address] Medical Branch amitriptyli 2013-04 Yes 50mg Take 50 mg Univers ne (ELAVIL) 2-10 by mouth ity of 50 mg 12:21: at [place] tablet 19 bedtime. Medical Branch oxybutynin 2013-04 Yes 5mg Take 5 mg Un amanda chloride 2-10 by mouth 2 ity o f (DITROPAN) 12:21: (two) [place] 5 mg tablet 19 times Medical daily. Branch lisinopril 2013-04 Yes 20mg Take 20 mg U nivers (PRINIVIL,Z 2-10 by mouth ity of ESTRIL) 20 12:21: daily. [place] mg tablet Medical Branch metFORMIN 2013-04 Yes 1000mg Take 1 Tab Univers (GLUCOPHAGE 2-10 by mouth 2 it y of ) 1,000 mg 00:00: (two) [place] tablet 00 times Medical daily with Branch meals. glipiZIDE 2013-04 Yes 10mg Take 1 Tab Un amanda (GLUCOTROL) 2-10 by mouth 2 it y of 10 mg 00:00: (two) [place] tablet 00 times Medical daily Branch before breakfast and dinner. atorvastati 2013-04 Yes [id number] 40mg Take 1 Tab Univers n (LIPITOR) 2-10 by mouth ity of 40 mg 00:00: at [place] tablet 00 bedtime. Medical Branch metFORMIN 2013-04 Yes 1000mg Take 1 Tab Univers (GLUCOPHAGE 2-10 by mouth 2 it y of ) 1,000 mg 00:00: (two) [place] tablet 00 times Medical daily with Branch meals. glipiZIDE 2013-04 Yes 10mg Take 1 Tab Un amanda (GLUCOTROL) 2-10 by mouth 2 it y of 10 mg 00:00: (two) [place] tablet 00 times Medical daily Branch before breakfast and dinner. atorvastati 2013-04 Yes [id number] 40mg Take 1 Tab Univers n (LIPITOR) 2-10 by mouth ity of 40 mg 00:00: at [place] tablet 00 bedtime. 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 1, Adc Lab [facility] [id number] Univers 08:45:00 09:00:00 Visit Yoanna Salgado [id number] ity [facility] [id number] [facility] [id number] [facility] 353 Branch 2021-04-08 2021-04-08 Outpatient R MEAGAN [facility] [id number] Univers 08:45:00 08:45:00 YOANNA ity [facility] 2021-04-08 2021-04-08 Orders Doctor BHAKTA [id number] Univers 00:00:00 00:00:00 Only Unassigned, AUGUSTINE [id number] [facility] [id number] [facility] [id number] [facility] donna 009 Branch 2020-03-11 2020-03-11 Outpatient MIRIAN PANG [facility] [id number] [place] 00:00:00 00:00:[address] 2020-02-19 2020-02-19 Outpatient MIRIAN PANG [facility] [id number] [place] 00:00:00 00:00:[address] 2020-02-05 2020-02-05 Outpatient [facility] [id number] [place] 00:00:00 00:00:00 683 Method i 2020-02-05 2020-02-05 Outpatient BIRDMIRIAN [facility] [id number] [place] 00:00:00 00:00:00 865 Method i 2020-01-08 2020-01-08 Outpatient MIRIAN PANG [facility] [id number] [place] 00:00:00 00:00:00 914 Method i 2020-01-04 2020-01-04 Outpatient MIRIAN PANG [facility] [id number] [place] 00:00:00 00:00:00 266 Method i 2020-01-04 2020-01-04 Outpatient WOJCIECHOWS [facility] [id number] [place] 00:00:00 00:00:00 KI, 146 Method i SANJAY 2020-01-02 2020-01-02 Outpatient [facility] [id number] [place] 00:00:00 00:00:00 827 Method i 2020-01-02 2020-01-02 Outpatient MIRIAN PANG [facility] [id number] [place] 00:00:00 00:00:00 976 Method i 2018 2018 Outpatient C XIOMARA, [facility] [id number] [facility] [place] [facility] 04:57:00 08:15:00 [facility] Results Test Description Test Time Test Comments Results Result Comments Source SARS-CoV-2 (COVID-19) RNA [Presence] in Respiratory sp ecimen by 2020-01-05 04:24:43 JASON with probe detection Test Item Value Reference Range Interpretation Comme nts SARS-CoV-2 (COVID-19) RNA [Presence] in Respiratory Not detected No t-Detected specimen by JASON with probe detection (test code = 77975-5) BONE MARROW [id number] 14:30:00Bone Marrow Pathology Report Case: [id number] Authorizing Provider: Tiff Colmenares MD Collected: 10/20/2018 1030 Ordering Location: [address] Received: 10/20/2018 1151 Service Pathologist: Damián [...] CIRCULATING BLASTS. Signing Pathologist Direct Phone Line: [phone] signed by Damián Mckeon MDon 10/24/2018 at 4:50 PMThere is no morphologic or immunophenotypic evidence of lymphoma or acute leukemia. This patient has a reported clinical history of anemia and hepatosplenomegaly as per the electronic medical records in [facility]. The morphologic finding of the megakaryocytes is nonspecific and couldbe reactive however they raise concern for the presence of an evolving myeloid neoplasm. Molecular and cytogenetic studies are currently pending, with results to be issued in an addendum report. 84775;94696; 61287 x 2; 86807; 73100, 19135, 38548p9Efaxtl Bone marrow The case is received in three partsall labeled with the patient's name, Jose Barbour, date of 1970, and accession number, [id number], which corresponds to the accompanying requisition page [...] evaluated Immunohistochemistry technical testing was performed at [facility], Pathology Laboratory where it was developed andits [...] qualified to perform high complexity clinical laboratory testing.FLOW CYTOMETRY [id number] 14:30:00 Test Item Value Reference Range Interpretation Comments FLOW CYTOMETRY RESULT See Separate Report POINTER (OPAL) (test code = 2758) FLOW CYTOMETRY AP CASE # [id number] (OPAL) (test code = 2759) FLOW [id number] 09:46:00Flow Cytometry Report Case: [id number] Authorizing Provider: Tiff Colmenares MD Collected: 10/20/2018 1151 Ordering Location: [address] Received: 10/20/2018 9298 Service Pathologist: Damián Mckeon MD Specimen: Other BONE MARROW, FLOW CYTOMETRY:NO MONOCLONAL B CELL POPULATION.NO ABNORMAL T CELL POPULATION.NO INCREASED BLAST POPULATION.CORRELATION WITH MORPHOLOGIC FINDINGS REQUIRED. 29620ZfbewgVjwa marrow CD8, surface-[place], CD56, surface-Lambda, CD5, CD19, CD10, CD3, CD20, CD4, CD45, CD14, CD13, CD33, CD117, CD34, cKappa, cLambda, CD38, RN817Xzpkgirq Viability: 97.2% Blasts: The dim CD45+ CD34+ [...] developed and their performance characteristics determined by [facility]. Theyhave not been cleared or approved [...] Test performed by IFA method.ANGELES TITER AND [id number] 11:18:00 Test Item Value Reference Range Interpretation Comments ANGELES TITER (BEAKER) (test code = :160 1541) ANGELES PATTERN (BEAKER) (test code = Nucleolar 1781) HEPATITIS A [id number] 08:30:00 Test Item Value Reference Range Interpretation Comments HEPATITIS A IGM ANTIBODY (BEAKER) Nonreactive Nonreactive (test code = 498) HEPATITIS A IGG ANTIBODY (BEAKER) Reactive Nonreactive A (test code = 2797) POCT-GLUCOSE [id number] 08:29:00 Test Item Value Reference Range Interpretation Comments POC-GLUCOSE METER 270 mg/dL 70-[address] [facility] 6720 (BEAKER) (test code = MICHAEL Garcia [facility] 1538) [address] HEPATITIS B [id number] 08:29:00 Test Item Value Reference Range Interpretation Comments HEPATITIS B CORE TOTAL ANTIBODY Nonreactive Nonreactive (BEAKER) (test code = 497) HEPATITIS B SURFACE ANTIBODY < mIU/mL <8.0 (BEAKER) (test code = 647) HEPATITIS B SURFACE ANTIGEN (2) Nonreactive Nonreactive (BEAKER) (test code = 2585) BASIC METABOLIC [id number] 06:54:00 Test Item Value Reference Range Interpretation [...] S NOT APPLICABLE FOR DIALYSIS PATIEN TS. [id number] 06:50:00 Test Item Value Reference Range Interpretation Comments MAGNESIUM (BEAKER) (test code = 2.1 mg/dL 1.6-2.6 627) HEPATIC FUNCTION [id number] 06:50:00 Test Item Value Reference Range Interpretation [...] 224 U/L 125-220 H code = 635) [id number] 06:20:00 Test Item Value Reference Range Interpretation Comments FERRITIN (BEAKER) (test code = 1162 ng/mL 5-275 H 361) POCT-GLUCOSE [id number] 21:09:00 Test Item Value Reference Range Interpretation Comments POC-GLUCOSE METER 336 mg/dL 70-110 H Notified R Magdy ARVIZU/TESTED (BEAKER) (test code = AT [facility] 6720 AM[place] 1538) [facility] 7703 0 POCT-GLUCOSE [id number] 18:17:00 Test Item Value Reference Range Interpretation Comments POC-GLUCOSE METER 308 mg/dL 70-[address] [facility] 6720 (BEAKER) (test code = MICHAEL Garcia [facility] 1538) [address] PROTEIN ELECTROPHORESIS, [id number] 17:39:00 Test Item Value Reference Range Interpretation [...] and concomitant chronic immune or inflammatory response. [id number] Armani To M.D. (BEAKER) (test code = [...] bone was performed. This wasgiven to the lead maintenance technician who was present at the time of the study and deemed adequate. Subsequently, a core biopsy was obtained. This was also given to the lead maintenance technician. COMPLICATIONS:None. ESTIMATED BLOOD LOSS: Minimal. Patient Disposition: The patient was in the same state post procedure as preprocedure. IMPRESSION: Successful CT-guided aspiration and core biopsy of the bone marrow. Signed: Long Shepherd MDReport Verified Date/Time: 10/20/2018 11:46:15 Reading Location: [address] Ortho Consult Reading Room 1 1:46 AMPOCT-GLUCOSE [id number] 11:37:00 Test Item Value Reference Range Interpretation Comments POC-GLUCOSE METER 213 mg/dL 70-[address] [facility] 6720 ([facility]) (test code = SALMAANEESH Garcia [facility] 1538) [address] CBC W/PLT COUNT & AUTO [id number] 10:17:00 Test Item Value Reference Range Interpretation Comments WHITE BLOOD CELL COUNT (BEAKER) 5.6 K/ L 3.5-10.5 (test code = 775) RED BLOOD CELL COUNT (BEAKER) 3.27 M/ L 3.93-5.22 L (test code = 761) HEMOGLOBIN (BEAKER) (test code = 9.5 GM/DL 11.2-15.7 L 410) HEMATOCRIT (BEAKER) (test code = 29.8 % 34.1-44.9 L 411) MEAN CORPUSCULAR VOLUME (AKER) 91.1 fL 79.4-94.8 (test code = 753) [...] Received comment: User comments: Slide comments:BASIC METABOLIC [id number] 07:15:00 Test Item Value Reference Range Interpretation [...] S NOT APPLICABLE FOR DIALYSIS PATIEN TS. [id number] 06:12:00 Test Item Value Reference Range Interpretation Comments MAGNESIUM (BEAKER) 2.0 mg/dL 1.6-2.6 Specimen slightly (test code = 627) hemolyzed [id number] 06:12:00 Test Item Value Reference Range Interpretation Comments PHOSPHORUS (BEAKER) 4.7 mg/dL 2.3-4.7 Specimen slightly (test code = 604) hemolyzed [id number] 06:06:00 Test Item Value Reference Range Interpretation [...] is2.5-3.5 for patients wiht mechanical heart valves.POCT-GLUCOSE [id number] 21:39:00 Test Item Value Reference Range Interpretation Comments POC-GLUCOSE METER 327 mg/dL 70-110 H Will Repea t Test/TESTED ([facility]) (test code = AT [facility] [address] [place] [address]) [facility] 7703 0 POCT-GLUCOSE [id number] 17:28:00 Test Item Value Reference Range Interpretation Comments POC-GLUCOSE METER 244 mg/dL 70-110 H TESTED AT [place] [address] ([facility]) (test code = MICHAEL Garcia [place] [address]) [address] RHEUMATOID FACTOR AB, REFLEX TO [id number] 11:15:00 Test Item Value Reference Range Interpretation Comments RHEUMATOID FACTOR (BEAKER) (test Negative code = 573) CBC W/PLT COUNT & AUTO [id number] 09:44:00 Test Item Value Reference Range Interpretation [...] 3438) Received comment: User comments: Slide comments:POCT-GLUCOSE [id number] 09:05:00 Test Item Value Reference Range Interpretation Comments POC-GLUCOSE METER 166 mg/dL 70-[address] [facility] 6720 (BEAKER) (test code = MICHAEL [place] 1538) [address] COMPREHENSIVE METABOLIC [id number] 07:14:00 Test Item Value Reference Range Interpretation [...] S NOT APPLICABLE FOR DIALYSIS PATIEN TS. [id number] 06:36:00 Test Item Value Reference Range Interpretation Comments MAGNESIUM (BEAKER) 2.0 mg/dL 1.6-2.6 Specimen slightly (test code = 627) hemolyzed [id number] 06:36:00 Test Item Value Reference Range Interpretation Comments PHOSPHORUS (BEAKER) 4.4 mg/dL 2.3-4.7 Specimen slightly (test code = 604) hemolyzed URIC [id number] 06:36:00 Test Item Value Reference Range Interpretation Comments URIC ACID (BEAKER) 9.8 mg/dL 2.6-7.2 H Specimen slightly (test code = 773) hemolyzed HEPATIC FUNCTION [id number] 06:36:00 Test Item Value Reference Range Interpretation [...] 0-100 H (test code = 700) PROTHROMBIN [id number] 06:06:00 Test Item Value Reference Range Interpretation [...] is2.5-3.5 for patients wiht mechanical heart valves.CALCIUM, [id number] 05:56:00 Test Item Value Reference Range Interpretation Comments CALCIUM IONIZED (BEAKER) (test 1.10 mmol/L 1.12-1.27 L code = 698) PH, BLOOD (BEAKER) (test code = 7.38 1810) CALCIUM, [id number] 05:56:00 Test Item Value Reference Range Interpretation Comments CALCIUM IONIZED (BEAKER) (test 1.07 mmol/L 1.12-1.27 L code = 698) PH, BLOOD (BEAKER) (test code = 7.41 1810) POCT-GLUCOSE [id number] 21:33:00 Test Item Value Reference Range Interpretation Comments POC-GLUCOSE METER 297 mg/dL 70-[address] [facility] 6720 (BEAKER) (test code = SALMAANEESH [place] 1538) [address] CMV PCR, [id number] 18:31:00 Test Item Value Reference Range Interpretation [...] and its performance characteristics determined by the [facility] Path ology Department, Section of Molecular Pathology. It has not been cleared or approved by the U.S. Food and Drug Administration (FDA), since FDA approval is not required for clinical use of the test. Validation was done as required by The Clinical Laboratory Improvement Amendments of 1988.EBV VIRAL [id number] 18:23:00 Test Item Value Reference Range Interpretation [...] (2) real-time PCR amplification and detection with VJEG-6-gdhndesw primers and probes. A well-conserved region of the EBNA-1 gene is targeted, along with an internal control sequence used to confirm PCR amplification. Asymptomatic carriers and viral genetic variation, among other factors, can affect the accuracy of nucleic acid testing; therefore, results should be interpreted in light of clinical data.This test was developedand its performance characteristics determined by the [facility] Pathology Department, Section of Molecular Pathology. It has not been cleared or approved by the U.S. Food and Drug Administration (FDA), since FDA approval is not required for clinical use of the test. Validation was doneas required by The Clinical Laboratory Improvement Amendments of 1988.POCT-GLUCOSE [id number] 18:02:00 Test Item Value Reference Range Interpretation Comments POC-GLUCOSE METER 198 mg/dL 70-[address] [facility] 6720 (BEAKER) (test code = MICHAEL [place] 1538) [address] RESPIRATORY PANEL [id number] 17:32:00 Test Item Value Reference Range Interpretation [...] This sample was tested at the [facility] Molecular Diagnostics Laboratory using the [place] [employer] Respiratory Panel. It is FDA cleared and has been verified and approved by the [facility] Molecular Diagnostics Laboratory for clinical use on nasopharyngeal swab specimens.The performance of the FilmArrayRP has not been established in individuals who received influenza vaccine. Recent administration ofa nasal influenza vaccine may cause false positive results for Influenza A and/orInfluenza B.EOSINOPHIL SMEAR, [id number] 16:42:00 Test Item Value Reference Range Interpretation Comments EOSINOPHIL SMEAR, URINE Rare EOS =less than No EOS seen A (BEAKER) (test code = 5% WBCs seen are EOS 1851) CT, CHEST, WITHOUT [id number] 16:31:00FINAL REPORT CT Chest, abdomen, and pelvis [...] the pelvic cul-de-sac, nonspecific. Signed: Mani Morel rified Date/Time: 10/18/2018 16:31:25 Reading Location: [facility] Radiology Reading Room CT, [id number] 16:31:00Reason for exam:->hepatosplenomegalyFINAL REPORT CT Chest, abdomen, [...] Morel Verified Date/Time: 10/18/2018 16:31:25 Reading Location: [facility] Radiology Reading Room CBC W/PLT COUNT & AUTO [id number] 15:06:00 Test Item Value Reference Range Interpretation [...] result. Previous code = 413) result was 00 WBC on 10/18/2018 at 0657 CDT [...] Negative Negative, Inconclusive (test code = 1623) [id number] 13:19:00 Test Item Value Reference Range Interpretation Comments FERRITIN (BEAKER) (test code = 6230 ng/mL 5-275 H 361) HIV-1 ANTIGEN WITH HIV-1/2 [id number] 12:57:00 Test Item Value Reference Range Interpretation Comments HIV-1 ANTIGEN WITH HIV 1\\T\\2 Nonreactive Nonreactive ANTIBODY (2) (BEAKER) (test code = 2586) [id number] 12:53:00 Test Item Value Reference Range Interpretation Comments HAPTOGLOBIN (BEAKER) (test code = 301 mg/dL 14-258 H 366) [id number] 12:34:00 Test Item Value Reference Range Interpretation [...] is within 95-100% range.ALPHA FETOPROTEIN (AFP), TUMOR [id number] 12:29:00 Test Item Value Reference Range Interpretation Comments ALPHA-FETOPROTEIN (BEAKER) (test code < ng/mL <10.0 = 1094) [id number] 11:08:00 Test Item Value Reference Range Interpretation Comments TRIGLYCERIDES (BEAKER) (test code = 299 mg/dL 540) TRIGLYCERIDE REFERENCE RANGELow Risk <150Borderline Risk 150-199High Risk 200-499Very High Risk>=500POCT-GLUCOSE [id number] 11:05:00 Test Item Value Reference Range Interpretation Comments POC-GLUCOSE METER 248 mg/dL 70-110 H TESTED AT [place] [address] ([facility]) (test code = [facility] 1538) [address] RETICULOCYTE [id number] 11:05:00 Test Item Value Reference Range Interpretation [...] 20-55 L (test code = 2590) POCT-GLUCOSE [id number] 08:55:00 Test Item Value Reference Range Interpretation Comments POC-GLUCOSE METER 198 mg/dL 70-110 H TESTED AT [place] [address] ([facility]) (test code = [facility] 1538) [address] [id number] 06:57:00 Test Item Value Reference Range Interpretation Comments PHOSPHORUS (BEAKER) (test code = 4.5 mg/dL 2.3-4.7 604) [id number] 06:57:00 Test Item Value Reference Range Interpretation Comments MAGNESIUM (BEAKER) (test code = 1.7 mg/dL 1.6-2.6 627) HEPATIC FUNCTION [id number] 06:57:00 Test Item Value Reference Range Interpretation [...] 693 U/L 6-55 H 347) BASIC METABOLIC [id number] 06:57:00 Test Item Value Reference Range Interpretation [...] NOT APPLICABLE FOR DIALYSIS PATIEN TS. PROTHROMBIN [id number] 06:37:00 Test Item Value Reference Range Interpretation [...] is2.5-3.5 for patients wiht mechanical heart valves.CALCIUM, [id number] 06:19:00 Test Item Value Reference Range Interpretation Comments CALCIUM IONIZED (BEAKER) (test 1.09 mmol/L 1.12-1.27 L code = 698) PH, BLOOD (BEAKER) (test code = 7.36 1810) POCT-GLUCOSE [id number] 21:54:00 Test Item Value Reference Range Interpretation Comments POC-GLUCOSE METER 281 mg/dL 70-110 H TESTED AT [place] [address] ([facility]) (test code = [facility] 1538) [address] RAD, CHEST, 1 VIEW, NON [id number] 19:11:00Reason for exam:->SOBShould this be performed at [...] MDReport Verified Date/Time: 10/17/2018 19:11:02 Reading Location: [address] Consult Reading Room [id number] 17:36:00 Test Item Value Reference Range Interpretation Comments FERRITIN (BEAKER) (test code = 09689 ng/mL 5-275 H 361) LACTATE DEHYDROGENASE (LDH)2018-10-17 16:41:00 Test Item Value Reference Range Interpretation Comments LACTATE DEHYDROGENASE (BEAKER) (test 541 U/L 125-220 H code = 635) [id number] 16:37:00 Test Item Value Reference Range Interpretation Comments FIBRINOGEN LEVEL (BEAKER) (test 439 mg/dl 225-434 H code = 658) POCT-GLUCOSE [id number] 12:47:00 Test Item Value Reference Range Interpretation Comments POC-GLUCOSE METER 250 mg/dL 70-[address] [facility] 67 ([facility]) (test code = [facility] 1538) [address] PUL PERF IMAGING, PARTIC, [id number] 10:48:00FINAL REPORT PROCEDURE: V/Q LUNG SCAN CPT CODE: 62369 INDICATION: Acute chest pain pulmonary origin PROTOCOL: [...] MDReport Verified Date/Time: 10/17/2018 10:48:21 Reading Location: [address] Reading Room U/S, PELVIC, [id number] 10:02:00Reason for exam:->AKIFINAL REPORT Abdominal and pelvic [...] MDReport Verified Date/Time: 10/17/2018 10:02:56 Reading Location: [address] Radiology Reading Room U/S, ABDOMINAL, WITH [id number] 10:02:00Reason for exam:->elevated transaminasesFINAL REPORT Abdominal and [...] Ayoub MDReport Verified Date/Time:10/17/2018 10:02:56 Reading Location: [address] Radiology Reading Room VITAMIN B12 AND [id number] 08:37:00 Test Item Value Reference Range Interpretation Comments VITAMIN B12 (BEAKER) (test code = > pg/mL 213-816 H 774) FOLATE (BEAKER) (test code = 362) 13.3 ng/mL >=7.0 POCT-GLUCOSE [id number] 08:32:00 Test Item Value Reference Range Interpretation Comments POC-GLUCOSE METER 168 mg/dL 70-[address] [facility] 6720 (BEAKER) (test code = [facility]HAEL [facility] 1538) [address] [id number] 08:03:00 Test Item Value Reference Range Interpretation Comments FERRITIN (BEAKER) (test code = 79343 ng/mL 5-275 H 361) URIC [id number] 06:15:00 Test Item Value Reference Range Interpretation Comments URIC ACID (BEAKER) (test code = 13.2 mg/dL 2.6-7.2 H 773) [id number] 06:15:00 Test Item Value Reference Range Interpretation Comments MAGNESIUM (BEAKER) (test code = 1.8 mg/dL 1.6-2.6 627) LIPID [id number] 06:15:00 Test Item Value Reference Range Interpretation [...] 130-159 High 160-189 Very High >=190HEPATIC FUNCTION [id number] 06:15:00 Test Item Value Reference Range Interpretation [...] 1009 U/L 6-55 H 347) COMPLEMENT COMPONENT [id number] 06:15:00 Test Item Value Reference Range Interpretation Comments C4 COMPLEMENT (BEAKER) (test code = 28 mg/dL 15-57 394) COMPLEMENT COMPONENT [id number] 06:15:00 Test Item Value Reference Range Interpretation [...] L (test code = 2590) BASIC METABOLIC [id number] 06:15:00 Test Item Value Reference Range Interpretation [...] NOT APPLICABLE FOR DIALYSIS PATIEN TS. PROTHROMBIN [id number] 05:57:00 Test Item Value Reference Range Interpretation [...] mechanical heart valves.CBC W/PLT COUNT & AUTO [id number] 05:55:00 Test Item Value Reference Range Interpretation [...] PERCENT (BEAKER) (test code = 2801) TROPONIN [id number] 01:09:00 Test Item Value Reference Range Interpretation [...] acidosis, acute neurological disease, and persistent tachyarrhythmia.OSMOLALITY, [id number] 22:24:00 Test Item Value Reference Range Interpretation Comments OSMOLALITY URINE (BEAKER) (test 317 mOsm/kg 40-1,400 code = 614) HEMOGLOBIN [id number] 22:20:00 Test Item Value Reference Range Interpretation Comments HEMOGLOBIN A1C (BEAKER) (test code = 7.2 % 4.3-6.1 H 368) URINALYSIS W/ [id number] 22:19:00 Test Item Value Reference Range Interpretation [...] 516) SOURCE(BEAKER) (test code = 2795) POCT-GLUCOSE [id number] 22:09:00 Test Item Value Reference Range Interpretation Comments POC-GLUCOSE METER 171 mg/dL 70-[address] [facility] 6720 (BEAKER) (test code = [facility] 1538) [address] PROTEIN, RANDOM [id number] 21:36:00 Test Item Value Reference Range Interpretation Comments PROTEIN, URINE (BEAKER) (test code = 44 mg/dL 0-14 H 1569) CHLORIDE, RANDOM [id number] 21:30:00 Test Item Value Reference Range Interpretation Comments CHLORIDE URINE (BEAKER) (test code = 96 meq/L 682) Reference Range: No NormalsCREATININE, RANDOM [id number] 21:09:00 Test Item Value Reference Range Interpretation Comments CREATININE URINE (BEAKER) (test 30.6 mg/dL code = 375) Reference Range: No NormalsSODIUM, RANDOM [id number] 21:09:00 Test Item Value Reference Range Interpretation Comments SODIUM URINE (BEAKER) (test code = 90 meq/L 243) Reference Range: No NormalsUREA NITROGEN, RANDOM [id number] 21:09:00 Test Item Value Reference Range Interpretation Comments UREA NITROGEN URINE (BEAKER) (test 232 mg/dL code = 538) Reference Range: No NormalsHEPATITIS PANEL, [id number] 20:39:00 Test Item Value Reference Range Interpretation Comments HEPATITIS A IGM ANTIBODY (BEAKER) Nonreactive Nonreactive (test code = 498) HEPATITIS B CORE IGM ANTIBODY Nonreactive Nonreactive (BEAKER) (test code = 645) HEPATITIS C ANTIBODY (BEAKER) Nonreactive Nonreactive (test code = 367) HEPATITIS B SURFACE ANTIGEN (2) Nonreactive Nonreactive (BEAKER) (test code = 2585) URINALYSIS W/ REFLEX URINE [id number] 20:12:00 Test Item Value Reference Range Interpretation [...] code = 1584) SOURCE(BEAKER) (test code = 9895) TROPONIN [id number] 19:15:00 Test Item Value Reference Range Interpretation [...] acute neurological disease, and persistent tachyarrhythmia.COMPREHENSIVE METABOLIC [id number] 19:15:00 Test Item Value Reference Range Interpretation [...] U/L 29-200 H code = 380) SALICYLATE [id number] 19:11:00 Test Item Value Reference Range Interpretation Comments SALICYLATE LEVEL (BEAKER) (test code < mg/dL 15.0-30.0 L = 764) Therapeutic Range: 15.0-30.0 mg/dLToxic: >30.0 mg/dL Lethal: >70.0 mg/dLACETAMINOPHEN [id number] 19:10:00 Test Item Value Reference Range Interpretation Comments ACETAMINOPHEN LEVEL (BEAKER) (test < ug/mL 10.0-30.0 L code = 344) Therapeutic Range: 10.0-30.0 g/mLToxic Levels: >200.0 g/mLPROTHROMBIN [id number] 18:59:00 Test Item Value Reference Range Interpretation [...] mechanical heart valves.CBC W/PLT COUNT & AUTO [id number] 18:52:00 Test Item Value Reference Range Interpretation [...] code = 2801) GLUCOMETER GLUCOSE- LAB USE [id number] 06:59:00 Test Item Value Reference Range Interpretation Comments GLUCOMETER (test code 219 mg/dL 70-[address] JOSE CARLOS DHILLON = G) AWAREMeter ID: [id number] tor: [id number] NG GLUCOMETER GLUCOSE- LAB USE [id number] 04:45:00 Test Item Value Reference Range Interpretation Comments GLUCOMETER (test code = 212 mg/dL 70-100 H Mete r ID: GMG) [id number] tor: [id number]
[2021-04-08 19:11] LABS: Absolute Lymphocytes (CBC) 0.9 K/uL (0.7-4.9); Basophils % 0.7 % (0-1.3); Hematocrit 27.8 % (36.0-45.0); Lymphocytes % 18.2 % (15.3-44.8); MPV 9.2 fL (7.6-11.3); RBC Red Blood Cell Count 3.03 M/uL (3.86-4.86)
[2021-04-08 19:15] LABS: Protime INR 0.94
[2021-04-08] MEDS ORDERED: HYDRALAZINE HCL 20 MG/ML VIAL ONE (19:35)
[2021-04-08] MEDS ORDERED: LEVALBUTEROL 1.25 MG/3 ML NEB ONE (19:36)
--- NOTE | 2021-04-08 19:47 | RAD REPORT ---
EXAM DESCRIPTION: RAD - Chest Single View - 04/08/2021 7:21 pm CLINICAL HISTORY: Cough;SOB COMPARISON: No comparisonsChest Single View dated 07/03/2020; Chest Single View dated 12/17/2019; Ches t Single View dated 12/13/2019; Chest Single View dated 08/15/2019 FINDINGS: Lines: None. Lungs: No evidence of edema or pneumonia. Pulmonary vascular congestion likely. Pleural: No significant pleural effusions or pneumothorax. Cardiac: Cardiomegaly. Bones: No acute fractures. Fusion hardware in the cervical spine. Other: IMPRESSION: Pulmonary vascular congestion without alveolar edema or consolidative airspace disease.
[2021-04-08 21:40] LABS: ALT/SGPT 19 U/L (12-78); AST/SGOT 10 U/L (15-37); Albumin 3.3 g/dL (3.4-5.0); Alkaline Phosphatase 81 U/L (45-117); BUN Blood Urea Nitrogen 52 mg/dL (7-18); Bicarbonate 23 mmol/L (21-32); Bilirubin Direct < 0.1 mg/dL (0-0.2); Bilirubin Total 0.4 mg/dL (0.2-1.0); Glucose Level 329 mg/dL (74-106); Magnesium 1.8 mg/dL (1.8-2.4); NT PRO-BNP 11902 pg/mL (<125); Potassium 3.5 mmol/L (3.5-5.1); Protein, Total 8.7 g/dL (6.4-8.2); Sodium Level 134 mmol/L (136-145); Troponin (Emerg Dept Use Only) 0.03 ng/mL (0.0-0.045)
--- NOTE | 2021-04-08 22:16 | ER ---
Nurse's Notes [facility] Name: Emily Barbour Age: 50 yrs Sex: Female : 1970 Arrival Date: 04/08/2021 Time: 16:05 Bed 16 Private MD: Jean-Paul Cameron Diagnosis: Cough;Dyspnea;End stage renal disease Presentation: 04/08 16:27 Chief complaint: Patient states: i have been feeling shortness of breath for 2 days. tw2 its to where i cant even use my cpap machine because i am so short of breath. little bit of congestion and runny nose. fever off and on. body aches. my daughter tested POSITIVE yesterday and i was exposed to her 2 days ago. i have dialysis MWF but i didn't go today because i didn't know if i was positive or not. Coronavirus screen: chills, fatigue, fever, muscle pain, runny nose, shortness of breath. Ebola Screen: Patient denies travel to an Ebola-affected area in the 21 days before illness onset. Initial Sepsis Screen: Does the patient meet any 2 criteria? No. Patient's initial sepsis screen is negative. Does the patient have a suspected source of infection? No. Patient's initial sepsis screen is negative. Risk Assessment: Do you want to hurt yourself or someone else? Patient reports no desire to harm self or others. Onset of symptoms was April 08, 2021. 16:27 Method Of Arrival: Ambulatory tw2 16:27 Acuity: [place] 3 tw2 Triage Assessment: 16:34 General: Appears in no apparent distress. obese, well groomed, Behavior is calm, tw2 cooperative, appropriate for age. Pain: Denies pain. Respiratory: Reports shortness of breath at rest on exertion Onset: The symptoms/episode began/occurred , the patient has mild shortness of breath. HEALTH ACTUARY: 16:30 LMP N/A - Hysterectomy tw2 Historical: - Allergies: 16:30 Benadryl; tw2 16:30 metformin; tw2 16:30 shrimp; tw2 16:30 Tradjenta; tw2 - Home Meds: 16:30 pantoprazole 40 mg Oral TbEC 1 tab 2 times per day [Active]; furosemide 40 mg Oral tab tw2 1 tab once daily [Active]; levothyroxine 50 mcg tab 1 tab once daily [Active]; magnesium gluconate 27 mg (500 mg) Oral tab twice a day [Active]; Trulicity subcutaneous once wkly [Active]; Humalog 100 unit/mL Sub-Q soln 30 unit three times a day [Active]; Toujeo SoloStar 300 unit/mL (1.5 mL) subcutaneous inpn 50 unit every morning [Active]; fenofibrate 160 mg Oral tab 1 tab once daily [Active]; duloxetine 30 mg Oral cpDR 1 cap once daily [Active]; amitriptyline 100 mg Oral tab 1 tab once daily [Active]; carvedilol 12.5 mg Oral tab 1 tab 2 times per day [Active]; - PMHx: 16:30 Anemia; Hypertension; Diabetes - IDDM; High Cholesterol; Renal Disease; St 4; tw2 Tendonitis in [place]; ibs; Dialysis MWF; - PSHx: 16:30 Adenoid excision; breast reduction; hysterectomy; neck fusion; right foot, bone spur tw2 removed; 16:33 Cholecystectomy; tw2 - Immunization history:: Client reports receiving the 2nd dose of the Covid vaccine. - Social history:: Smoking status: Patient denies any tobacco usage or history of. Patient/guardian denies using tobacco, the patient reports quitting approximately 8 years ago. Screenin:59 Abuse screen: Denies threats or abuse. Denies injuries from another. Nutritional ld1 screening: No deficits noted. Tuberculosis screening: No symptoms or risk factors identified. Fall Risk None identified. Assessment: 18:59 General: Appears in no apparent distress. comfortable, Behavior is calm, cooperative, ld1 appropriate for age. Pain: Denies pain. Neuro: Level of Consciousness is awake, alert, obeys commands, Oriented to person, place, time, situation, Appropriate for age. Cardiovascular: Reports shortness of breath, Capillary refill < 3 seconds Patient's skin is warm and dry. Rhythm is regular. Respiratory: Airway is patent Respiratory effort is even, unlabored, Respiratory pattern is regular, symmetrical, Breath sounds are clear bilaterally. GI: Abdomen is round non-distended. : No signs and/or symptoms were reported regarding the genitourinary system. EENT: No signs and/or symptoms were reported regarding the EENT system. Derm: No signs and/or symptoms reported regarding the dermatologic system. Musculoskeletal: No signs and/or symptoms reported regarding the musculoskeletal system. 19:40 General: Appears in no apparent distress. Pain: Denies pain. Neuro: Level of mk Consciousness is awake, alert, obeys commands, Oriented to person, place, time, situation. Cardiovascular: Heart tones S1 S2 present Capillary refill < 3 seconds Patient's skin is warm and dry. Pulses are 2+ in right radial artery, right dorsalis pedis artery, left radial artery and left dorsalis pedis artery Rhythm is regular. Respiratory: Airway is patent Trachea midline Respiratory effort is even, unlabored, Respiratory pattern is regular, symmetrical, Breath sounds are clear. Respiratory: Reports shortness of breath at rest cough that is non-productive, GI: Abdomen is round non-distended. : No signs and/or symptoms were reported regarding the genitourinary system. Derm: No signs and/or symptoms reported regarding the dermatologic system. Derm: No signs and/or symptoms reported regarding the dermatologic system. Skin is intact, is healthy with good turgor, Skin is dry, Skin is pink, warm \T\ dry. Skin temperature is warm. Musculoskeletal: No signs and/or symptoms reported regarding the musculoskeletal system. 20:40 Reassessment: Patient appears in no apparent distress at this time. Patient and/or mk family updated on plan of care and expected duration. Pain level reassessed. Patient is alert, oriented x 3, equal unlabored respirations, skin warm/dry/pink. 22:47 Reassessment: Patient appears in no apparent distress at this time. Patient is alert, lp1 oriented x 3, equal unlabored respirations, skin warm/dry/pink. Patient states feeling better. Vital Signs: 16:08 Pulse 77; Resp 20; Pulse Ox 97% on R/A; tw2 16:30 BP 181 / 87; Pulse 85; Resp 20; Temp 97.4(TE); Pulse Ox 98% on R/A; Weight 97.4 kg (R); tw2 Height 5 ft. 5 in. (165.10 cm); 18:59 BP 192 / 93; Pulse 86; Resp 32; Pulse Ox 100% on R/A; ld1 19:30 BP 160 / 75; Pulse 79; Resp 20; Pulse Ox 98% on R/A; mk 20:30 BP 187 / 72; Pulse 78; Resp 25; Pulse Ox 98% on R/A; mk 21:30 BP 179 / 84; Pulse 81; Resp 18; Pulse Ox 99% on R/A; mk 22:47 BP 135 / 63; Pulse 88; Resp 22; Pulse Ox 98% on R/A; lp1 16:30 Body Mass Index 35.73 (97.40 kg, 165.10 cm) tw2 16:08 via pulse ox. pt nad. talking with someone in lobby tw2 [place] Coma Score: 19:30 Eye Response: spontaneous(4). Verbal Response: oriented(5). Motor Response: obeys mk commands(6). Total: 15. 20:30 Eye Response: spontaneous(4). Verbal Response: oriented(5). Motor Response: obeys mk commands(6). Total: 15. 21:30 Eye Response: spontaneous(4). Verbal Response: oriented(5). Motor Response: obeys mk commands(6). Total: 15. 22:40 Eye Response: spontaneous(4). Verbal Response: oriented(5). Motor Response: obeys mk commands(6). Total: 15. ED Course: 16:05 Patient arrived in ED. mr 16:05 Jean-Paul Cameron DO is Private Physician. mr 16:30 Triage completed. tw2 16:34 Arm band placed on. tw2 18:01 Ty Cano MD is Attending Physician. kdr 18:59 Patient has correct armband on for positive identification. Bed in low position. Call ld1 light in reach. Side rails up X2. biological science technician fish on. Pulse ox on. NIBP on. Door closed. Noise minimized. Warm blanket given. 18:59 No provider procedures requiring assistance completed. Inserted saline lock: 20 gauge ld1 in right antecubital area, using aseptic technique. Blood collected. 19:07 Danica Saunders, RN is Primary Nurse. mk 19:20 Attending Physician role handed off by Ty Cano MD rn 19:20 Destin Snyder MD is Attending Physician. rn 19:21 XRAY Chest (1 view) In Process Unspecified. EDMS 19:33 Liver (Hepatic) Function Sent. mk 19:33 Magnesium Sent. mk 19:33 Basic Metabolic Panel Sent. mk 19:33 SARS-COV-2 RT PCR Sent. mk 22:15 Jean-Paul Cameron DO is Referral Physician. rn 22:47 IV discontinued, No redness/swelling at site. Pressure dressing applied. lp1 Administered Medications: 19:45 Drug: Xopenex (levalbuterol) (3) 1.25 mg Route: Inhalation; mk 20:30 Follow up: Response: No adverse reaction 19:45 Drug: hydrALAZINE 10 mg Route: IVP; Site: right antecubital; mk 20:30 Follow up: Response: No adverse reaction Outcome: 22:15 Discharge ordered by MD. rn 22:47 Discharged to home ambulatory, with significant other. 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 Demonstrated understanding of instructions, follow-up care. 22:48 Patient left the ED. lp1 Signatures: Dispatcher [employer] EDMS Ty Cano MD MD kdr Rivera, Mary mr Nieto, Roman, MD MD rn Pena, Laura, RN RN lp1 Liz Diane RN RN 2 Leonor Mcgarry RN RN 1 Danica Saunders RN RN Corrections: (The following items were deleted from the chart) 19:26 18:59 CORONAVIRUS+.[place] drawn and sent. ld1 EDMS 20:36 19:30 BP 180 / 75; Pulse 79bpm; Resp 18bpm; Pulse Ox 98% RA; mk 20:36 20:30 BP 163 / 72; Pulse 78bpm; Resp 18bpm; Pulse Ox 98%; [facility] 04/09 04:45 04/08 19:30 BP 180 / 75; Pulse 79bpm; Resp 20bpm; Pulse Ox 98% RA; [facility]
--- NOTE | 2021-04-08 22:16 | EDPHYS ---
Physician Documentation [facility] Name: Emily Barbour Age: 50 yrs Sex: Female : 1970 Arrival Date: 04/08/2021 Time: 16:05 Bed 16 Private MD: Jean-Paul Cameron ED Physician Destin Snyder HPI: 04/08 19:04 This 50 yrs old Female presents to ER via Ambulatory with complaints of Shortness Of kdr Breath. 19:04 The patient has shortness of breath at rest, with light activity. Onset: The kdr symptoms/episode began/occurred last night. Duration: The symptoms are continuous, and are steadily getting worse. The patient's shortness of breath is aggravated by coughing, exertion, light activity. Associated signs and symptoms: Pertinent positives: non-productive cough. Severity of symptoms: At their worst the symptoms were mild in the emergency department the symptoms are unchanged. The patient has not experienced similar symptoms in the past. The patient has not recently seen a physician. PHYSICIAN: 16:30 LMP N/A - Hysterectomy tw2 Historical: - Allergies: 16:30 Benadryl; tw2 16:30 metformin; tw2 16:30 shrimp; tw2 16:30 Tradjenta; tw2 - Home Meds: 16:30 pantoprazole 40 mg Oral TbEC 1 tab 2 times per day [Active]; furosemide 40 mg Oral tab tw2 1 tab once daily [Active]; levothyroxine 50 mcg tab 1 tab once daily [Active]; magnesium gluconate 27 mg (500 mg) Oral tab twice a day [Active]; Trulicity subcutaneous once wkly [Active]; Humalog 100 unit/mL Sub-Q soln 30 unit three times a day [Active]; Toujeo SoloStar 300 unit/mL (1.5 mL) subcutaneous inpn 50 unit every morning [Active]; fenofibrate 160 mg Oral tab 1 tab once daily [Active]; duloxetine 30 mg Oral cpDR 1 cap once daily [Active]; amitriptyline 100 mg Oral tab 1 tab once daily [Active]; carvedilol 12.5 mg Oral tab 1 tab 2 times per day [Active]; - PMHx: 16:30 Anemia; Hypertension; Diabetes - IDDM; High Cholesterol; Renal Disease; St 4; tw2 Tendonitis in [place]; ibs; Dialysis MWF; - PSHx: 16:30 Adenoid excision; breast reduction; hysterectomy; neck fusion; right foot, bone spur tw2 removed; 16:33 Cholecystectomy; tw2 - Immunization history:: Client reports receiving the 2nd dose of the Covid vaccine. - Social history:: Smoking status: Patient denies any tobacco usage or history of. Patient/guardian denies using tobacco, the patient reports quitting approximately 8 years ago. ROS: 19:04 Constitutional: Negative for fever, chills, and weight loss, Eyes: Negative for injury, kdr pain, redness, and discharge, Neck: Negative for injury, pain, and swelling, Cardiovascular: Negative for chest pain, palpitations, and edema, Abdomen/GI: Negative for abdominal pain, nausea, vomiting, diarrhea, and constipation, Back: Negative for injury and pain, : Negative for injury, bleeding, discharge, and swelling, MS/Extremity: Negative for injury and deformity, Skin: Negative for injury, rash, and discoloration, Neuro: Negative for headache, weakness, numbness, tingling, and seizure activity. Psych: Negative for depression, anxiety, suicide ideation, homicidal ideation, and hallucinations, Allergy/Immunology: Negative for hives, rash, and allergies, Endocrine: Negative for neck swelling, polydipsia, polyuria, polyphagia, and marked weight changes, Hematologic/Lymphatic: Negative for swollen nodes, abnormal bleeding, and unusual bruising. 19:04 Respiratory: Positive for cough, with no reported sputum, dyspnea on exertion, shortness of breath, wheezing, Negative for hemoptysis, orthopnea, pleurisy. Exam: 19:07 Constitutional: This is a well developed, well nourished patient who is awake, alert, kdr and in no acute distress. Head/Face: Normocephalic, atraumatic. Eyes: Pupils equal round and reactive to light, extra-ocular motions intact. Lids and lashes normal. Conjunctiva and sclera are non-icteric and not injected. Cornea within normal limits. Periorbital areas with no swelling, redness, or edema. Neck: Trachea midline, no thyromegaly or masses palpated, and no cervical lymphadenopathy. Supple, full range of motion without nuchal rigidity, or vertebral point tenderness. No Meningismus. Chest/axilla: Normal chest wall appearance and motion. Nontender with no deformity. No lesions are appreciated. Cardiovascular: Regular rate and rhythm with a normal S1 and S2. No gallops, murmurs, or rubs. Normal PMI, no JVD. No pulse deficits. Abdomen/GI: Soft, non-tender, with normal bowel sounds. No distension or tympany. No guarding or rebound. No evidence of tenderness throughout. Back: No spinal tenderness. No costovertebral tenderness. Full range of motion. Skin: Warm, dry with normal turgor. Normal color with no rashes, no lesions, and no evidence of cellulitis. MS/ Extremity: Pulses equal, no cyanosis. Neurovascular intact. Full, normal range of motion. Neuro: Awake and alert, GCS 15, oriented to person, place, time, and situation. Cranial nerves II-XII grossly intact. Motor strength 5/5 in all extremities. Sensory grossly intact. Cerebellar exam normal. Normal gait. Psych: Awake, alert, with orientation to person, place and time. Behavior, mood, and affect are within normal limits. 19:07 Respiratory: mild respiratory distress is noted, Respirations: labored breathing, that is mild, Breath sounds: rhonchi, that are mild, are scattered, stridor, is not appreciated, + upper airway congestion. wheezing: that is mild, is heard diffusely. Vital Signs: 16:08 Pulse 77; Resp 20; Pulse Ox 97% on R/A; tw2 16:30 BP 181 / 87; Pulse 85; Resp 20; Temp 97.4(TE); Pulse Ox 98% on R/A; Weight 97.4 kg (R); tw2 Height 5 ft. 5 in. (165.10 cm); 18:59 BP 192 / 93; Pulse 86; Resp 32; Pulse Ox 100% on R/A; ld1 19:30 BP 160 / 75; Pulse 79; Resp 20; Pulse Ox 98% on R/A; mk 20:30 BP 187 / 72; Pulse 78; Resp 25; Pulse Ox 98% on R/A; mk 21:30 BP 179 / 84; Pulse 81; Resp 18; Pulse Ox 99% on R/A; mk 22:47 BP 135 / 63; Pulse 88; Resp 22; Pulse Ox 98% on R/A; lp1 16:30 Body Mass Index 35.73 (97.40 kg, 165.10 cm) tw2 16:08 via pulse ox. pt nad. talking with someone in lobby tw2 [place] Coma Score: 19:30 Eye Response: spontaneous(4). Verbal Response: oriented(5). Motor Response: obeys mk commands(6). Total: 15. 20:30 Eye Response: spontaneous(4). Verbal Response: oriented(5). Motor Response: obeys mk commands(6). Total: 15. 21:30 Eye Response: spontaneous(4). Verbal Response: oriented(5). Motor Response: obeys mk commands(6). Total: 15. 22:40 Eye Response: spontaneous(4). Verbal Response: oriented(5). Motor Response: obeys mk commands(6). Total: 15. MDM: 19:20 Patient medically screened. rn 22:13 Differential diagnosis: Anemia Anxiety Reaction Bronchitis pneumonia, Pneumothorax rn pulmonary edema. Data reviewed: vital signs, nurses notes, lab test result(s), EKG, radiologic studies, plain films, and as a result, I will discharge patient. Data interpreted: Pulse oximetry: on room air is 98 %. Interpretation: normal. Counseling: I had a detailed discussion with the patient and/or guardian regarding: the historical points, exam findings, and any diagnostic results supporting the discharge/admit diagnosis, lab results, radiology results, the need for outpatient follow up, to return to the emergency department if symptoms worsen or persist or if there are any questions or concerns that arise at home. Response to treatment: the patient's symptoms have mildly improved after treatment, and as a result, I will discharge patient. Special discussion: I discussed with the patient/guardian in detail that at this point there is no indication for admission to the hospital. It is understood, however, that if the symptoms persist or worsen the patient needs to return immediately for re-evaluation. ED course: Patient Covid negative but only 2 days into illness. Her daughter tested positive for Covid. Recommend retesting in 24 to 48 hours. Chest x-ray does not show pneumonia. No oxygen requirement. Mild tachypnea but patient also missed dialysis. No hyperkalemia or acidosis to indicate emergent need for dialysis. Recommend calling her dialysis doctor tomorrow and retesting for Covid.. 04/08 18:36 Order name: Basic Metabolic Panel kdr 04/08 18:36 Order name: CBC with Diff kdr 04/08 18:36 Order name: LFT's kdr 04/08 18:36 Order name: Magnesium kdr 04/08 18:36 Order name: NT PRO-BNP; Complete Time: 22:13 kdr 04/08 18:36 Order name: PT-INR; Complete Time: 20:27 kdr 04/08 18:36 Order name: Troponin (emerg Dept Use Only); Complete Time: 22:13 kdr 04/08 18:36 Order name: XRAY Chest (1 view); Complete Time: 20:27 kdr 04/08 18:36 Order name: Basic Metabolic Panel; Complete Time: 22:13 EDMS 04/08 18:36 Order name: CBC with Automated Diff; Complete Time: 20:27 EDMS 04/08 18:36 Order name: Liver (Hepatic) Function; Complete Time: 22:13 EDMS 04/08 18:36 Order name: Magnesium; Complete Time: 22:13 EDMS 04/08 19:26 Order name: SARS-COV-2 RT PCR; Complete Time: 20:27 EDMS 04/08 18:36 Order name: EKG; Complete Time: 18:37 kdr 04/08 18:36 Order name: Cardiac monitoring; Complete Time: 18:59 kdr 04/08 18:36 Order name: EKG - Nurse/Tech; Complete Time: 18:59 kdr 04/08 18:36 Order name: IV Saline Lock; Complete Time: 18:59 kdr 04/08 18:36 Order name: Labs collected and sent; Complete Time: 18:59 kdr 04/08 18:36 Order name: O2 Per Protocol; Complete Time: 18:59 kdr 04/08 18:36 Order name: O2 Sat Monitoring; Complete Time: 18:59 kdr Administered Medications: 19:45 Drug: Xopenex (levalbuterol) (3) 1.25 mg Route: Inhalation; mk 20:30 Follow up: Response: No adverse reaction mk 19:45 Drug: hydrALAZINE 10 mg Route: IVP; Site: right antecubital; mk 20:30 Follow up: Response: No adverse reaction mk Disposition Summary: 04/08/21 22:15 Discharge Ordered Location: Home rn Problem: new rn Symptoms: are unchanged rn Condition: Stable rn Diagnosis - Cough rn - Dyspnea rn - End stage renal disease rn Followup: rn - With: Jean-Paul Cameron DO - When: 1 - 2 days - Reason: Discharge Instructions: - Discharge Summary Sheet rn - End-Stage Kidney Disease rn - Cough, Adult rn Forms: - Medication Reconciliation Form rn - Thank You Letter rn - Antibiotic ad operations intern - Prescription Opioid Use rn Signatures: Dispatcher [employer] EDMS Ty Cano MD MD kdr Nieto, Roman, MD MD rn Wise, Tara, RN RN [facility] Danica Saunders RN RN Corrections: (The following items were deleted from the chart) 19:26 18:36 CORONAVIRUS+MR.LAB.BRZ ordered. EDMS EDMS
[2021-04-08 23:12] VITALS: TEMP 97.4
[2021-04-08 23:14] VITALS: O2SAT 98
[2021-04-08 23:17] VITALS: BP 135/63
== END 2021-04-08 22:48 | disposition home or self-care (01) ==
LOC: ER 16:01
DX: R05.9 Cough, unspecified (principal); E11.22 Type 2 diabetes mellitus with diabetic chronic kidney disease; I12.0 Hypertensive chronic kidney disease with stage 5 chronic kidney disease or end stage renal disease; N18.6 End stage renal disease; Z99.2 Dependence on renal dialysis; Z20.822 Contact with and (suspected) exposure to COVID-19; Z79.4 Long term (current) use of insulin; Z88.8 Allergy status to other drugs, medicaments and biological substances; Z91.013 Allergy to seafood
CPT/HCPCS: 93005; 85025; 80048; 36415; 83735; 85610; 80076; 84484; 83880; 71045; 96374; 99285; U0003; J0360

== ENCOUNTER 2021-09-03 13:47 | Emergency (ER) | payer OTHER ==
--- OUTSIDE RECORDS SUMMARY | 2021-09-03 13:52 | XMS REPORT | Continuity of Care Document ---
:1970 Author Organization [facility] t Address [address] [place] [address] Care Team Providers Name Role Phone GiovannyRaghav moss DO Primary Care Physician 1, Lab Attending Clinician Unavailable Meagan ARVIZU Attending Clinician MEAGAN Attending Clinician Unavailable Doctor Unassigned, Name Attending Clinician Unavailable Young Attending Clinician Unavailable [place] Attending Clinician Unavailable Farhat PAIGE Attending Clinician Unavailable DR XIOMARA Attending Clinician Unavailable Farhat PAIGE Admitting Clinician Unavailable DR XIOMARA Admitting Clinician Unavailable Payers Payer Name Policy Type Policy Number Effective Date Expiration Date S ource Problems Condition Condition Condition Status Onset Resolution Last Treating Co mments Source Name Details Category Date Date Treatment Clinician Date End-stage End-stage Disease Active Overview: [facility] renal renal 01-[address] disease disease 00:00: g of this Hospi ta 00 note l might be different from the original. Added automatic ally from request for surgery [id number] History of History of Disease Active 2020-0 M ethodi cholecyste cholecyste 01-01 ctomy ctomy 00:00: Hospita 00 l History of History of Disease Active 2020-0 M ethodi appendecto appendecto 01-01 my my 00:00: Hospita 00 l History of History of Disease Active 2019-0 M ethodi hysterecto hysterecto 9-16 st my my 00:00: Hospita 00 l History of History of Disease Active 2019-0 M ethodi tubal tubal 9-16 st ligation ligation 00:00: Hospit a 00 l History of History of Disease Active 2019-0 M ethodi adenoidect adenoidect 9-16 st tj tj 00:00: Hospita 00 l History of History of Disease Active 2019-0 M ethodi fusion of fusion of 16 st cervical cervical 00:00: Hospit a spine spine 00 l Hypothyroi Hypothyroi Disease Active M ethodi dism due dism due 11-22 st to defect to defect 00:00: Hosp yahaira in thyroid in thyroid 00 l hormone hormone synthesis synthesis Type 2 Type 2 Disease Active [facility] diabetes diabetes 5-19 st mellitus mellitus 00:00: Hospit a with with 00 l diabetic diabetic chronic chronic kidney kidney disease disease CAD CAD Disease Active 2018-04 [facility] (coronary (coronary 0-30 st artery artery 00:00: Hospita disease), disease), 00 l alatna alatna coronary coronary artery artery Chronic Chronic Disease Active 2018-04 [facility]i post-traum post-traum 0-30 st atic atic 00:00: Hospita stress stress 00 l disorder disorder Former Former Disease Active 2018-04 Methodi light light 0-30 st tobacco tobacco 00:00: Hospita smoker smoker 00 l Irritable Irritable Disease Active 2018-04 Met hodi bowel bowel 0-30 st syndrome syndrome 00:00: Hospit a 00 l Type 2 Type 2 Disease Active 2018-04 [facility] diabetes diabetes 0-30 st mellitus mellitus 00:00: Hospit a with with 00 l diabetic diabetic polyneurop polyneurop athy athy Splenomega Splenomega Disease Active [facility] Obesity, Obesity, Disease Active [facility] Class II, Class II, 7 [facility] BMI BMI 00:00: Medical 35-39.9 35-39.9 00 Center Elevated Elevated Disease Active [facility] liver liver 10-16 [facility] enzymes enzymes 00:00: Medical 00 Center Acute Acute Disease Active [facility] respirator respirator 10-16 Emili kedemarco y distress y distress 00:00: Me dical 00 Center Acute Acute Disease Active [facility] congestive congestive 10-16 Emili russell heart heart 00:00: Medical failure failure 00 Center Stage 4 Stage [address] chronic chronic 10-16 [facility] kidney kidney 00:00: Medical disease disease 00 Center Controlled Controlled Disease Active C [facility] type 2 type 2 10-16 [facility] diabetes diabetes 00:00: Medica l mellitus mellitus 00 Center with stage with 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, disease, with with long-term long-term current current use of use of insulin insulin Morbid Morbid Disease Active Methodi obesity obesity 10-16 st 00:00: Hospita 00 l Obstructiv Obstructiv Disease Active M ethodi e sleep e sleep 10-16 apnea apnea 00:00: Hospita syndrome syndrome 00 l Vitamin D Vitamin D Disease Active 2013-04 Uni vers deficiency deficiency 2-15 it y of 00:00: [place] [address] Medical Branch Hypertrigl Hypertrigl Disease Active 2013-04 U nivers yceridemia yceridemia 2-10 it y of 00:00: [address] Branch Normocytic Normocytic Disease Active 2013-04 U nivers anemia anemia 2-10 ity of 00:00: [place] [address] Medical Branch Elevated Elevated Disease Active 2013-04 Unive rs serum serum 2-10 [place]y [place] creatinine [place] [address] [place] [address] Branch HTN HTN Disease Active 2013-04 Univers (hypertens (hypertens 2-10 it y of ion) ion) 00:00: [place] [address] Medical Branch 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 2-10 it y of 00:00: [address] Branch Screening Screening Disease Active 2013-04 Uni vers for for 2-10 ity of endocrine, endocrine, 00:[place] nutritiona nutritiona 00 Id dical l, l, Branch metabolic metabolic and and immunity immunity disorder disorder Type II or Type II or Disease Active 2013-04 U nivers unspecifie unspecifie 2-10 it y of d type d type 00:00: [place] diabetes diabetes 00 Medica l mellitus mellitus Branch with with neurologic neurologic al al manifestat manifestat ions, ions, uncontroll uncontroll ed(250.62) ed(250.62) Neuropathy Neuropathy Disease Active 2013-04 U nivers 2-10 ity of 00:00: Medical Branch Fatigue Fatigue Disease Active 2013-04 Univers 2-10 ity of 00:00: Medical Branch Hyperlipid Hyperlipid Disease Active 2013-04 M frank abad emia 2-10 st 00:00: Hospita 00 l Weight Weight Disease Active 2013-04 Univers gain gain 2-10 ity of 00:00: Medical Branch Allergies, Adverse Reactions, Alerts Allergy Allergy Status Severity Reaction(s) Onset Inactive Treating Comm ents Source Name Type Date Date Clinician METFORMI Allergy Active Other [facility] 10-16 [facility] 00:[facility]: Medical 00 Center LINAGLIP Allergy Active Diarrhea [facility] TIN 10-16 [facility] 00[facility] Medical 00 Center Diphenhy Propensi Active Rash [facility] dramine ty to 10-16 [facility] Hcl adverse 00:00: Medical reaction 00 Center s Metformi Propensi Active Other (See Advised [facility] n ty to Comments) 10-16 not to [facility] adverse 00:00: take Medical reaction 00 cause of Center s kidneys Linaglip Propensi Active Diarrhea, Loss of CH I [facility] tin ty to Nausea And 10-16 appetite Luke s adverse Vomiting 00:00: Medical reaction 00 Center s DIPHENHY Allergy Active Low Rash [facility] DRAMINE 10-16 [facility] HCL 00:00: Medical 00 Center Diphenhy Propensi Active Rash Method i d-Pe-Melchor ty to [address] taminoph adverse 00:00: Hospita en reaction 00 l s to drug Metformi Propensi Active Other (See Caused Me thodi n ty to Comments) 10-[address] adverse 00:00: failure Hospita reaction 00 l s to drug Linaglip Propensi Active GI Loss of Metho di tin ty to Intolerance -[address] adverse 00:00: Hospita reaction 00 l s to drug BENADRYL DRUG Active Rash 2013-04 Univers DECONGES 2-10 ity of TANT 00:00: Medical Branch PENICILL Drug Active Rash 2013-04 Univers INS Class 2-10 ity of 00:00: Medical Branch Benadryl Propensi Active Rash 2013-04 When Univer s Deconges ty to 2-10 taken ity of tant adverse 00:00: with PCN [place] reaction 00 Medical s Branch Penicill Propensi Active Rash 2013-04 When Univer s ins ty to 2-10 taking ity of adverse 00:00: together [place] reaction 00 with Medical s Benadryl Branch Family History Family Member Diagnosis Comments Start Date Stop Date Source Natural [facility] brother Congenital heart [facility] disease [facility] Natural father Cancer [facility] Natural father Stroke [facility] Natural father Stroke [facility] Natural mother Coronary [facility] disease Natural mother Diabetes [facility] Natural mother Diabetes [facility] Natural sister Asthma [facility] Natural sister Thyroid disease [facility] Social History Social Habit Start Date Stop Date Quantity Comments Source Exposure to Yes [facility]-CoV-2 (event) [facility] History of tobacco Smoker [facility] use [facility] History SDOH [facility] Alcohol Std Drinks Medica l Center History SDOH [facility] Alcohol Binge Medical [facility] History SDOH [facility] Alcohol Comment Medical C enter Alcohol intake 2020-01-09 2020-01-09 Ex-drinker [facility] 00:00:00 00:00:00 (finding) Hospital History SDOH 2018-10-16 2018-10-[address] [facility] Alcohol Frequency 00:00:00 00:00:00 [facility] Center Cigarettes smoked 2017-10-10 2017-10-[address] current (pack per 00:00[facility] - [facility] Cigarette 2017-10-10 2017-10-10 [facility] pack-years 00:00:00 00:00:00 Hospital Tobacco use and 2017-10-10 2017-10-10 Smokeless [facility] exposure 00:00:00 00:00:00 tobacco non-user Hospital Sex Assigned At [birth year] [facility] 00:00:00 00:00:00 Hospital Smoking Status Start Date Stop Date Source Former smoker [facility] Medications Ordered Filled Start Stop Current Ordering Indication Dosage Frequency Signature Comments Components Source Medication Medication Date Date Medication? Clinician (SIG) Name Name furosemide 2019-04 Yes 40mg QD Take 40 mg M ethodi (LASIX) 40 1-[address] mg tablet 10:26: daily. Hospit a 36 l DULoxetine 2019-04 Yes 30mg QD Take 30 mg M ethodi (CYMBALTA) 1-[address] 30 MG 10:26: daily. Hospita capsule 36 l insulin 2019-04 Yes 30U Q.[id number] Inject 30 Methodi lispro 1-[id number] (HumaLOG) 10:26: 3D under the Hos liyah 100 unit/mL 36 skin 3 l injection (three) times a day before meals. pantoprazol 2019-04 Yes 40mg QD Take 40 mg Methodi e 1-[address] (PROTONIX) 10:26: daily. Hospi ta 40 MG EC 36 l tablet insulin 2019-04 Yes 50U QD Inject 50 Metho di glargine,hu 1-[address]rec.anlog 10:26: under the H ospita (TOUJEO 36 skin l SOLOSTAR daily. U-300 INSULIN SUBQ) fenofibrate 2019-04 Yes 160mg QD Take 160 M ethodi (LOFIBRA) 1-[address] 160 MG 10:26: mouth Hospita tablet 36 daily. l amitriptyli 2019-04 Yes 100mg QD Take 100 M ethodi ne (ELAVIL) 1-[address] 100 MG 10:26: mouth Hospita tablet 36 nightly. l cyanocobala 2019-04 Yes 250ug QD Take 250 M ethodi min 1-[address] (VITAMIN 10:26: mouth Hospita B-12) 250 36 daily. l MCG tablet magnesium 2019-04 Yes 500mg Q.5D Take 500 Met hodi gluconate 1-[address] (MAGONATE) 10:26: mouth 2 Hosp yahaira 500 mg 36 (two) l tablet times a tablet day. cholecalcif 2019-04 Yes 2000U QD Take 2,000 Methodi veronica, 1-[address] vitamin D3, 10:26: mouth Hospi ta (VITAMIN 36 daily. l D3) 2,000 unit capsule capsule dulaglutide 2019-04 Yes 1.5mg Q1W Inject 1.5 Methodi (Trulicity) 1-[address] 1.5 mg/0.5 10:26: the skin Hos liyah mL pen 36 every 7 l injector days. levothyroxi 2019-04 Yes 50ug QD Take 50 Met hodi ne 1-[address] (SYNTHROID) 10:26: mouth Hospi ta 50 mcg 36 daily. l tablet promethazin 2019-04 Yes 25mg Q6H Take 25 mg Methodi e 1-[address] (PHENERGAN) 10:26: every 6 Hos liyah 25 MG 36 (six) l tablet hours as needed for nausea or vomiting. gabapentin 2019-04 Yes 300mg Take 300 Me thodi (NEURONTIN) 1-[address] 300 mg 10:26: mouth as Hospita capsule 36 needed. l mirabegron 2019-04 Yes 50mg QD Take 50 mg M ethodi (MYRBETIQ) 1-[address] 50 mg 10:26: daily. Hospita tablet 36 l extended release 24 hr docosahexae 2019-04 Yes Take by Met hodi noic 1-[address] acid-epa 10:26: Hospita 120-180 mg 36 l capsule carvediloL Yes TWICE Method i (COREG) 9-[address] 12.5 MG 00:00: Hospita tablet 00 l amitriptyli Yes 50mg QD Take [address] ne (ELAVIL) 7-06 by mouth Luke s 50 MG 12:33: nightly. Medical tablet 58 Center DULoxetine Yes 20mg QD Take [address] (CYMBALTA) 7-06 by mouth [facility]ukes 20 MG 12:33: daily. Medical capsule 58 Center magnesium Yes 500mg Q.5D Take [address] gluconate 7-06 mg by [facility]ukes (MAGONATE) 12:33: mouth 2 Medi donna 27.5 mg 58 (two) Center magne- sium times (500 mg) daily. tablet ferrous Yes 325mg Take 325 [facility] sulfate 325 7-06 mg by [facility]ukes (65 FE) MG 12:33: mouth Medica l tablet 58 daily with Center breakfast. cholecalcif 2019-0 Yes Take by [facility] veronica, 7-06 mouth. [facility]ukes vitamin D3, 12:33: Medica l 2,000 unit 58 Center Cap cyanocobala 2018-0 Yes QD Take by [facility] min 7-06 mouth [facility]ukes (VITAMIN 12:33: daily. Medical B-12) 100 58 Center MCG tablet ergocalcife 2013-04 Yes [id number] Take 1 Cap Univers rol, 2-15 by mouth ity of vitamin d2, 00:00: weekly. Thien as (VITAMIN 00 Medical D2) 50,000 Branch unit capsule ergocalcife 2013-04 Yes [id number] Take 1 Cap Univers rol, 2-15 by mouth ity of vitamin d2, 00:00: weekly. Thien as (VITAMIN 00 Medical D2) 50,000 Branch unit capsule FERROUS 2013-04 Yes Take by Univer s SULFATE, 2-10 mouth. ity of DRIED 12:29: [place] (IRON, 37 Medical DRIED, Branch ORAL) OMEPRAZOLE 2013-04 Yes Take by Uni vers MAGNESIUM 2-10 mouth. ity of (PRILOSEC 12:29: [place] OTC ORAL) 37 [facility] MULTIVITS,C 2013-04 Yes Take by Un amanda A,MINERALS/ 2-10 mouth. ity of IRON/FA 12:29: [place] (ONE-A-DAY 37 [facility] FORMULA ORAL) FERROUS 2013-04 Yes Take by Univer s SULFATE, 2-10 mouth. ity of DRIED 12:29: [place] (IRON, 37 Medical DRIED, Branch ORAL) OMEPRAZOLE 2013-04 Yes Take by Uni vers MAGNESIUM 2-10 mouth. ity of (PRILOSEC 12:29: [place] OTC ORAL) 37 [facility] MULTIVITS,C 2013-04 Yes Take by Un amanda A,MINERALS/ 2-10 mouth. ity of IRON/FA 12:29: [place] (ONE-A-DAY 37 [facility] FORMULA ORAL) Fenofibrate 2013-04 Yes Take by Un amanda (LOFIBRA) 2-10 mouth. ity of 160 mg Tab 12:21: [place] 19 Medical Branch amitriptyli 2013-04 Yes 50mg Take [...] ESTRIL) 20 12:21: daily. [place] mg tablet 19 Medical Branch Fenofibrate 2013-04 Yes Take by Un amanda (LOFIBRA) 2-10 mouth. ity of 160 mg Tab 12:21: [place] 19 Medical Branch amitriptyli 2013-04 Yes 50mg Take [...] ESTRIL) 20 12:21: daily. [place] mg tablet 19 Medical Branch metFORMIN 2013-04 Yes 1000mg Take [...] before breakfast and dinner. atorvastati 2013-04 Yes [id number] 40mg Take 1 Tab Univers n (LIPITOR) [...] before breakfast and dinner. atorvastati 2013-04 Yes [id number] 40mg Take 1 Tab Univers n (LIPITOR) 2-10 by mouth ity of 40 mg 00:00: at [place] tablet 00 bedtime. Medical Branch Vital Signs Vital Name Observation Time Observation Value Comments Source Body height 2020-07-04 13:45:00 165.1 cm [facility] Body weight 2020-07-04 13:45:00 104.327 kg [facility] BMI 2020-07-04 13:45:00 38.27 kg/m2 [facility] Procedures Procedure Date / Time Performed Performing Clinician Sour e ASSIGNMENT OF BENEFITS 2021-04-08 14:49:14 Doctor Unassigned, No [facility] Plan of Care Planned Activity Planned Date Details Comments Source Future Scheduled 2021-10-[address] [facility] Test 00:00:00 (procedure) [code = Medical Center 03197651] Future Scheduled 2021-04-08 COVID-19 VACCINE (1) [facility] Test 13:44:10 [code = COVID-19 VACCINE (1)] Future Scheduled 2021-04-08 DIABETES: RETINAL EYE [facility] Test 13:44:10 EXAM [code = DIABETES: RETINAL EYE EXAM] Future Scheduled 2021-04-08 DIABETIC FOOT EXAM [facility] Test 13:44:10 [code = DIABETIC FOOT EXAM] Future Scheduled 2021-04-08 Hepatitis C screening [facility] Test 13:44:10 (procedure) [code = 386904335] Future Scheduled 2021-04-08 Screening for [facility] Test 13:44:10 malignant neoplasm of cervix (procedure) [code = 607171988] Future Scheduled 2021-04-08 BREAST CANCER [facility] Test 13:44:10 SCREENING [code = BREAST CANCER SCREENING] Future Scheduled 2021-04-08 COLONOSCOPY SCREENING [facility] Test 13:44:10 [code = COLONOSCOPY SCREENING] Future Scheduled 2021-04-08 SHINGLES VACCINES (#1) [facility] Test 13:44:10 [code = SHINGLES VACCINES (#1)] Future Scheduled 2021-04-08 INFLUENZA VACCINE Method ist Hospital Test 13:44:10 [code = INFLUENZA VACCINE] Future Scheduled 2020-12-17 INFLUENZA VACCINE (#1) [facility] Test 00:00:00 [code = INFLUENZA Medical Ce nter VACCINE (#1)] Future Scheduled 2020 SHINGLES VACCINES ([address] [facility] Test 00:00:00 of 2) [code = SHINGLES Medic al Center VACCINES (1 of 2)] Future Scheduled 2020-04-[address] [facility] Test 00:00:00 (12+) [code = Medical Center DEPRESSION SCREENING (12+)] Future Scheduled 2020-02-17 Medicare IPPE (WELCOME [facility] Test 00:00:00 TO MEDICARE) [code = Medical Center Medicare IPPE (WELCOME TO MEDICARE)] Future Scheduled 2019-04-[address] [facility] Test 00:00:00 measurement Medical Center (procedure) [code = 13486117] Future Scheduled 1991-10-[address] Test 00:[facility]:00 malignant neoplasm of [facility] cervix (procedure) [code = 046071305] Future Scheduled 1989 DTAP/TDAP/TD VACCINES [facility] Test 00:00:00 (1 - Tdap) [code = Medical C enter DTAP/TDAP/TD VACCINES (1 - Tdap)] Future Scheduled 1982 COVID-19 VACCINE (1) [facility] Test 00:00:00 [code = COVID-[address] VACCINE (1)] Future Scheduled 1980 DIABETIC EYE EXAM [facility] Test 00:00:00 [code = DIABETIC EYE Medical Center EXAM] Future Scheduled [address] [facility] Test 00:[facility]:00 examination Medical Center (regime/therapy) [code = 031318294] Future Scheduled 1980 Urine screening for [facility] Test 00:00:00 protein (procedure) Medical Center [code = 591823590] Future Scheduled [address] [facility] Test 00:00:00 0-64 YRS (1 of 2 - Medical C enter PPSV23) [code = PNEUMOCOCCAL VACCINE 0-64 YRS (1 of 2 - PPSV23)] Future Scheduled [address] [facility] Test 00[facility]00:00 [facility] breast (procedure) [code = 553607524] Future Scheduled [address] [facility] Test 00:00:00 [facility] [place] colon (procedure) [code = 840308609] Encounters Start End Encounter Admission Attending Care Care Encounter Source Date/Time Date/Time Type Type Clinicians Facility Department ID 2021-04-08 2021-04-08 Slab Polisher 1, Adc Lab [facility] [id number] Univers 08:45:00 09:00:00 Visit ArmenpierreYoanna cline CJ 350.1.13.10 ity of [place] 4.2.7.2.686 [facility] [id number] [place] [address] Branch 2021-04-08 2021-04-08 Outpatient R MEAGAN [facility] [id number] Univers 08:45:00 08:45:00 YOANNA ity of [facility] 2021-04-08 2021-04-08 Orders Doctor LIVIA [id number] Univers 00:00:00 00:00:00 Only Unassigned, AUGUSTINE 350.1.13.10 ity of [place] [facility] 4.2.7.2.686 [place] [facility] [id number] [place] [address] Branch 2020-07-04 2020-07-04 Documentat Young [facility] [id number] 00:00:00 00:00:00 [facility] 2020-07-04 2020-07-04 Abstract Young [facility] [id number] 00:00:00 00:00:00 [facility] 2020-07-04 2020-07-04 Darren Vidal [facility] [id number] 00:00:00 00:00:00 [facility] 2020-07-04 2020-07-04 Darren Vidal [facility] [id number] 00:00:00 00:00:00 [facility] 2020-06-17 2020-06-17 Documentat Young [facility] [id number] 00:00:00 00:00:00 [facility] 2020-06-17 2020-06-17 Darren Vidal [facility] [id number] 00:00:00 00:00:00 [facility] 2020-06-11 2020-06-11 Documentmarialuisa Vidal [facility] [id number] 00:00:00 00:00:00 [facility] 2020-06-11 2020-06-11 [facility] [id number] 00:00:00 00:00:00 [facility] 2020-06-11 2020-06-11 [facility]isa [facility] [id number] [id number] 00:00:00 00:00:00 [facility] 2020-05-29 2020-05-29 [facility] [id number] 00:00:00 00:00:00 [facility] 2020-05-29 2020-05-29 [facility]uisa [facility] [id number] 00:00:00 00:00:00 [facility] 2020-05-29 2020-05-29 [facility]uisa [facility] [id number] [id number] 00:00:00 00:00:00 [facility] 2020-05-29 2020-05-29 Telephone Young [facility] [id number] 00:00:00 00:00:00 [facility] 2020-05-29 2020-05-29 [facility]uisa [facility] [id number] 00:00:00 00:00:00 [facility] 2020-05-26 2020-05-26 Telephone Dc [facility] [id number] 00:00:00 00:00:00 [facility] 2018 2018 Outpatient Aurelio SOLANO [facility] [id number] [place] 04:57:00 08:15:00 [facility] Results Test Description Test Time Test Comments Results Result [facility] e Comments BONE MARROW EXAM 2018-11-14 Bone Marrow Pathology 14:30:00 Report Case: [id number] Authorizing Provider: Tiff Colmenares MD Collected: 10/20/2018 1030 Ordering Location: [address] Received: 10/20/2018 1151 Service Pathologist: Damián [...] CIRCULATING BLASTS. Signing Pathologist Direct Phone Line: [phone] y signed by Damián Mckeon MD on 10/24/2018 at 4:50 PMThere is no morphologic or immunophenotypic evidence of lymphoma or acute leukemia. This patient has a reported clinical history of anemia and hepatosplenomegaly as per the electronic medical records in [facility]. The morphologic finding of the megakaryocytes is nonspecific and could be reactive however they raise concern for the presence of an evolving myeloid neoplasm. Molecular and cytogenetic studies are currently pending, with results to be issued in an addendum report. 44356; 46370; 98630 x 2; 27177; 44548, 35144, 60649c0Nuwlry Bone marrow The case is received in three parts all labeled with the patient's name, Jose Barbour, date of 1970, and accession number, [id number], which corresponds to the accompanying requisition page [...] evaluated Immunohistochemistry technical testing was performed at [facility], Pathology Laboratory where it was developed [...] CASE # (OPAL) (test code = 2759) [id number] FLOW [id number] 09:46:00Flow Cytometry Report Case: [id number] Authorizing Provider: Tiff Colmenares MD Collected: 10/20/2018 1151 Ordering Location: [address] Received: 10/20/2018 1336 Service Pathologist: Damián Mckeon MD Specimen: Other BONE MARROW, FLOW CYTOMETRY:NO MONOCLONAL B CELL POPULATION.NO ABNORMAL T CELL POPULATION.NO INCREASED BLAST POPULATION.CORRELATION WITH MORPHOLOGIC FINDINGS REQUIRED. [id number] marrow CD8, surface-[place], CD56, surface-Lambda, CD5, CD19, CD10, CD3, CD20, CD4, CD45, CD14, CD13, CD33, CD117, CD34, cKappa, cLambda, CD38, GO178Qtdqkjwz Viability: 97.2% Blasts: The dim CD45+ CD34+ [...] Test performed by IFA method.ANGELES TITER AND [id number] 11:18:00 Test Item Value Reference Range Interpretation Comments ANGELES TITER (BEAKER) (test code = :160 1541) ANGELES PATTERN (BEAKER) (test code = Nucleolar 1781) HEPATITIS A [id number] 08:30:00 Test Item Value Reference Range Interpretation Comments HEPATITIS A IGM ANTIBODY (BEAKER) Nonreactive Nonreactive (test code = 498) HEPATITIS A IGG ANTIBODY (BEAKER) Reactive Nonreactive A (test code = 2797) POCT-GLUCOSE [id number] 08:29:00 Test Item Value Reference Range Interpretation Comments POC-GLUCOSE METER 270 mg/dL 70-[address] [facility] 6720 (BEAKER) (test code = MICHAEL [place] 1538) [address] HEPATITIS B [id number] 08:29:00 Test Item Value Reference Range Interpretation Comments HEPATITIS B CORE TOTAL ANTIBODY Nonreactive Nonreactive (BEAKER) (test code = 497) HEPATITIS B SURFACE ANTIBODY < mIU/mL <8.0 (BEAKER) (test code = 647) HEPATITIS B SURFACE ANTIGEN (2) Nonreactive Nonreactive (BEAKER) (test code = 2585) BASIC METABOLIC [id number] 06:54:00 Test Item Value Reference Range Interpretation [...] S NOT APPLICABLE FOR DIALYSIS PATIEN TS. [id number] 06:50:00 Test Item Value Reference Range Interpretation Comments MAGNESIUM (BEAKER) (test code = 2.1 mg/dL 1.6-2.6 627) HEPATIC FUNCTION [id number] 06:50:00 Test Item Value Reference Range Interpretation [...] 224 U/L 125-220 H code = 635) [id number] 06:20:00 Test Item Value Reference Range Interpretation Comments FERRITIN (BEAKER) (test code = 1162 ng/mL 5-275 H 361) POCT-GLUCOSE [id number] 21:09:00 Test Item Value Reference Range Interpretation Comments POC-GLUCOSE METER 336 mg/dL 70-110 H Notified R Magdy ARVIZU/TESTED (BEAKER) (test code = AT [facility] 6720 AMISHA 4998) [facility] 5913 0 POCT-GLUCOSE [id number] 18:17:00 Test Item Value Reference Range Interpretation Comments POC-GLUCOSE METER 308 mg/dL 70-[address] [facility] 6720 (BESUZIE) (test code = MICHAEL Garcia [facility] 1532) [address] PROTEIN ELECTROPHORESIS, [id number] 17:39:00 Test Item Value Reference Range Interpretation [...] and concomitant chronic immune or inflammatory response. [id number] Armani To M.D. (BEAKER) (test code = (electonic signature) 2616) PROTEIN TOTAL SERUM, 7.6 gm/dL 6.0-8.3 SPEP (BEAKER) (test code = 6160) BONE MARROW PROCESS.2018-10-20 12:02:00 Test Item Value Reference Range Interpretation Comments ANATOMIC CASE# (BEAKER) (test code M19-113 = 2470) ORDERED BY DOCTOR# (OPAL) (test Escudier code = 2457) PERFORMED BY DOCTOR# (BESUZIE) (test Cora code = 2458) CLOT RECEIVED? (BEAKER) (test code Yes = 2459) BIOPSY RECEIVED? (BEAKER) (test Yes code = 2460) CULTURE RECEIVED? (BEAKER) (test No code = 2464) FLOW RECEIVED? (BEAKER) (test code Yes = 2461) CYTOGENICS? (BEAKER) (test code = Yes 2462) MOLECULAR GENETICS? (BEAKER) (test Yes code = 2463) Good collection by Dr Currna slides are good(Rosa)CT, BIOPSY, BONE MARROW 2018-10-20 [...] bone was performed. This wasgiven to the director of speech pathology who was present at the time of the study and deemed adequate. Subsequently, a core biopsy was obtained. This was also given to the director of speech pathology. COMPLICATIONS:None. ESTIMATED BLOOD LOSS: Minimal. Patient Disposition: The patient was in the same state post procedure as preprocedure. IMPRESSION: Successful CT-guided aspiration and core biopsy of the bone marrow. Signed: Long Shepherdeport Verified Date/Time: 10/20/2018 11:46:15 Reading Location: [address] Ortho Consult Reading Room 1 1:46 AMPOCT-GLUCOSE [id number] 11:37:00 Test Item Value Reference Range Interpretation Comments POC-GLUCOSE METER 213 mg/dL 70-[address] [facility] 6720 ([facility]) (test code = MICHAEL Garcia [facility] 1538) [address] CBC W/PLT COUNT & AUTO [id number] 10:17:00 Test Item Value Reference Range Interpretation Comments WHITE BLOOD CELL COUNT ([facility]) 5.6 K/ L 3.5-10.5 (test code = 775) RED BLOOD CELL COUNT ([facility]) 3.27 M/ L 3.93-5.22 L (test code = 761) HEMOGLOBIN (AKER) (test code = 9.5 GM/DL 11.2-15.7 L [...] Received comment: User comments: Slide comments:BASIC METABOLIC [id number] 07:15:00 Test Item Value Reference Range Interpretation [...] S NOT APPLICABLE FOR DIALYSIS PATIEN TS. [id number] 06:12:00 Test Item Value Reference Range Interpretation Comments MAGNESIUM (BEAKER) 2.0 mg/dL 1.6-2.6 Specimen slightly (test code = 627) hemolyzed [id number] 06:12:00 Test Item Value Reference Range Interpretation Comments PHOSPHORUS (BEAKER) 4.7 mg/dL 2.3-4.7 Specimen slightly (test code = 604) hemolyzed [id number] 06:06:00 Test Item Value Reference Range Interpretation [...] is2.5-3.5 for patients wiht mechanical heart valves.POCT-GLUCOSE [id number] 21:39:00 Test Item Value Reference Range Interpretation Comments POC-GLUCOSE METER 327 mg/dL 70-110 H Will Repea t Test/TESTED (BEAKER) (test code = AT [facility] 6720 [facility] 1538) [facility] 7703 0 POCT-GLUCOSE [id number] 17:28:00 Test Item Value Reference Range Interpretation Comments POC-GLUCOSE METER 244 mg/dL 70-110 H TESTED AT [place] [address] ([facility]) (test code = [place] [id number]) [address] RHEUMATOID FACTOR AB, REFLEX TO [id number] 11:15:00 Test Item Value Reference Range Interpretation Comments RHEUMATOID FACTOR (BEAKER) (test Negative code = 573) CBC W/PLT COUNT & AUTO [id number] 09:44:00 Test Item Value Reference Range Interpretation [...] 3438) Received comment: User comments: Slide comments:POCT-GLUCOSE [id number] 09:05:00 Test Item Value Reference Range Interpretation Comments POC-GLUCOSE METER 166 mg/dL 70-[address] [facility] 6720 (BEAKER) (test code = MICHAEL ATWOOD 1538) [address] COMPREHENSIVE METABOLIC [id number] 07:14:00 Test Item Value Reference Range Interpretation [...] S NOT APPLICABLE FOR DIALYSIS PATIEN TS. [id number] 06:36:00 Test Item Value Reference Range Interpretation Comments MAGNESIUM (BEAKER) 2.0 mg/dL 1.6-2.6 Specimen slightly (test code = 627) hemolyzed [id number] 06:36:00 Test Item Value Reference Range Interpretation Comments PHOSPHORUS (BEAKER) 4.4 mg/dL 2.3-4.7 Specimen slightly (test code = 604) hemolyzed URIC [id number] 06:36:00 Test Item Value Reference Range Interpretation Comments URIC ACID (BEAKER) 9.8 mg/dL 2.6-7.2 H Specimen slightly (test code = 773) hemolyzed HEPATIC FUNCTION [id number] 06:36:00 Test Item Value Reference Range Interpretation [...] 0-100 H (test code = 700) PROTHROMBIN [id number] 06:06:00 Test Item Value Reference Range Interpretation [...] is2.5-3.5 for patients wiht mechanical heart valves.CALCIUM, [id number] 05:56:00 Test Item Value Reference Range Interpretation Comments CALCIUM IONIZED (BEAKER) (test 1.10 mmol/L 1.12-1.27 L code = 698) PH, BLOOD (BEAKER) (test code = 7.38 1810) CALCIUM, [id number] 05:56:00 Test Item Value Reference Range Interpretation Comments CALCIUM IONIZED (BEAKER) (test 1.07 mmol/L 1.12-1.27 L code = 698) PH, BLOOD (BEAKER) (test code = 7.41 1810) POCT-GLUCOSE [id number] 21:33:00 Test Item Value Reference Range Interpretation Comments POC-GLUCOSE METER 297 mg/dL 70-[address] [facility] 6720 ([facility]) (test code = MICHAEL ATWOOD 1538) [address] CMV PCR, [id number] 18:31:00 Test Item Value Reference Range Interpretation [...] and its performance characteristics determined by the [facility] Path ology Department, Section of Molecular Pathology. It has not been cleared or approved by the U.S. Food and Drug Administration (FDA), since FDA approval is not required for clinical use of the test. Validation was done as required by The Clinical Laboratory Improvement Amendments of 1988.EBV VIRAL [id number] 18:23:00 Test Item Value Reference Range Interpretation [...] (2) real-time PCR amplification and detection with SUUA-6-ghgaezpp primers and probes. A well-conserved region of the EBNA-1 gene is targeted, along with an internal control sequence used to confirm PCR amplification. Asymptomatic carriers and viral genetic variation, among other factors, can affect the accuracy of nucleic acid testing; therefore, results should be interpreted in light of clinical data.This test was developedand its performance characteristics determined by the [facility] Pathology Department, Section of Molecular Pathology. It has not been cleared or approved by the U.S. Food and Drug Administration (FDA), since FDA approval is not required for clinical use of the test. Validation was doneas required by The Clinical Laboratory Improvement Amendments of 1988.POCT-GLUCOSE [id number] 18:02:00 Test Item Value Reference Range Interpretation Comments POC-GLUCOSE METER 198 mg/dL 70-[address] [facility] 6720 (BEAKER) (test code = SALMAANEESH [place] 1538) [address] RESPIRATORY PANEL [id number] 17:32:00 Test Item Value Reference Range Interpretation [...] MEDICAL CENTER Molecular Diagnostics Laboratory using the PayMate IndiaArray Respiratory Panel. It is FDA cleared and has been verified and approved by the [facility] Molecular Diagnostics Laboratory for clinical use on nasopharyngeal swab specimens.The performance of the FilmArrayRP has not been established in individuals who received influenza vaccine. Recent administration ofa nasal influenza vaccine may cause false positive results for Influenza A and/orInfluenza B.EOSINOPHIL SMEAR, [id number] 16:42:00 Test Item Value Reference Range Interpretation Comments EOSINOPHIL SMEAR, URINE Rare EOS =less than No EOS seen A (BEAKER) (test code = 5% WBCs seen are EOS 1851) CT, CHEST, WITHOUT [id number] 16:31:00FINAL REPORT CT Chest, abdomen, and pelvis [...] Morel rified Date/Time: 10/18/2018 16:31:25 Reading Location: [facility] Radiology Reading Room CT, [id number] 16:31:00Reason for exam:->hepatosplenomegalyFINAL REPORT CT Chest, abdomen, [...] MDReport Verified Date/Time: 10/18/2018 16:31:25 Reading Location: [facility] Radiology Reading Room CBC W/PLT COUNT & AUTO [id number] 15:06:00 Test Item Value Reference Range Interpretation [...] Negative Negative, Inconclusive (test code = 1623) [id number] 13:19:00 Test Item Value Reference Range Interpretation Comments FERRITIN (BEAKER) (test code = 6230 ng/mL 5-275 H 361) HIV-1 ANTIGEN WITH HIV-1/2 [id number] 12:57:00 Test Item Value Reference Range Interpretation Comments HIV-1 ANTIGEN WITH HIV 1\\T\\2 Nonreactive Nonreactive ANTIBODY (2) (BEAKER) (test code = 2586) [id number] 12:53:00 Test Item Value Reference Range Interpretation Comments HAPTOGLOBIN (BEAKER) (test code = 301 mg/dL 14-258 H 366) [id number] 12:34:00 Test Item Value Reference Range Interpretation [...] is within 95-100% range.ALPHA FETOPROTEIN (AFP), TUMOR [id number] 12:29:00 Test Item Value Reference Range Interpretation Comments ALPHA-FETOPROTEIN (BEAKER) (test code < ng/mL <10.0 = 1094) [id number] 11:08:00 Test Item Value Reference Range Interpretation Comments TRIGLYCERIDES (BEAKER) (test code = 299 mg/dL 540) TRIGLYCERIDE REFERENCE RANGELow Risk <150Borderline Risk 150-199High Risk 200-499Very High Risk>=500POCT-GLUCOSE [id number] 11:05:00 Test Item Value Reference Range Interpretation Comments POC-GLUCOSE METER 248 mg/dL 70-[address] [facility] (test code = [facility] [place] 1538) [address] RETICULOCYTE [id number] 11:05:00 Test Item Value Reference Range Interpretation [...] 20-55 L (test code = 2590) POCT-GLUCOSE [id number] 08:55:00 Test Item Value Reference Range Interpretation Comments POC-GLUCOSE METER 198 mg/dL 70-[address] [facility] 6720 [facility] (test code = [facility] [place] 1538) [address] [id number] 06:57:00 Test Item Value Reference Range Interpretation Comments PHOSPHORUS (BEAKER) (test code = 4.5 mg/dL 2.3-4.7 604) [id number] 06:57:00 Test Item Value Reference Range Interpretation Comments MAGNESIUM (BEAKER) (test code = 1.7 mg/dL 1.6-2.6 627) HEPATIC FUNCTION [id number] 06:57:00 Test Item Value Reference Range Interpretation [...] 693 U/L 6-55 H 347) BASIC METABOLIC [id number] 06:57:00 Test Item Value Reference Range Interpretation [...] NOT APPLICABLE FOR DIALYSIS PATIEN TS. PROTHROMBIN [id number] 06:37:00 Test Item Value Reference Range Interpretation [...] is2.5-3.5 for patients wiht mechanical heart valves.CALCIUM, [id number] 06:19:00 Test Item Value Reference Range Interpretation Comments CALCIUM IONIZED (BestBoy KeyboardAKER) (test 1.09 mmol/L 1.12-1.27 L code = 698) [facility]LOOD [facility] (test code = 7.36 1810) POCT-GLUCOSE [id number] 21:54:00 Test Item Value Reference Range Interpretation Comments POC-GLUCOSE METER 281 mg/dL 70-[address] [facility] 6720 ([facility]) (test code = SALMAANEESH [place] 1538) [address] RAD, CHEST, 1 VIEW, NON [id number] 19:11:00Reason for exam:->SOBShould this be performed at [...] MDReport Verified Date/Time: 10/17/2018 19:11:02 Reading Location: [facility] C013W Consult Reading Room [id number] 17:36:00 Test Item Value Reference Range Interpretation Comments FERRITIN (BEAKER) (test code = 01090 ng/mL 5-275 H 361) LACTATE DEHYDROGENASE (LDH)2018-10-17 16:41:00 Test Item Value Reference Range Interpretation Comments LACTATE DEHYDROGENASE (BEAKER) (test 541 U/L 125-220 H code = 635) [id number] 16:37:00 Test Item Value Reference Range Interpretation Comments FIBRINOGEN LEVEL (OPAL) (test 439 mg/dl 225-434 H code = 658) POCT-GLUCOSE [id number] 12:47:00 Test Item Value Reference Range Interpretation Comments POC-GLUCOSE METER 250 mg/dL 70-[address] [facility] 6720 (OPAL) (test code = MICHAEL [place] 1538) [address] PUL PERF IMAGING, PARTIC, [id number] 10:48:00FINAL REPORT PROCEDURE: V/Q LUNG SCAN CPT CODE: 02643 INDICATION: Acute chest pain pulmonary origin PROTOCOL: [...] MDReport Verified Date/Time: 10/17/2018 10:48:21 Reading Location: [address] Reading Room U/S, PELVIC, [id number] 10:02:00Reason for exam:->AKIFINAL REPORT Abdominal and pelvic [...] Normal Doppler of the abdomen. Signed: [facility] Verified Date/Time: 10/17/2018 10:02:56 Reading Location: [address] Radiology Reading Room U/S, ABDOMINAL, WITH [id number] 10:02:00Reason for exam:->elevated transaminasesFINAL REPORT Abdominal and [...] of the abdomen. Signed: Leobardo Ayoubeport Verified Date/Time:10/17/2018 10:02:56 Reading Location: [address] Radiology Reading Room VITAMIN B12 AND [id number] 08:37:00 Test Item Value Reference Range Interpretation Comments VITAMIN B12 (BEAKER) (test code = > pg/mL 213-816 H 774) FOLATE (BEAKER) (test code = 362) 13.3 ng/mL >=7.0 POCT-GLUCOSE [id number] 08:32:00 Test Item Value Reference Range Interpretation Comments POC-GLUCOSE METER 168 mg/dL 70-[address] [facility] 67 (BEAKER) (test code = SALMAANEESH Garcia [facility] 1538) [address] [id number] 08:03:00 Test Item Value Reference Range Interpretation Comments FERRITIN (BEAKER) (test code = 00433 ng/mL 5-275 H 361) URIC [id number] 06:15:00 Test Item Value Reference Range Interpretation Comments URIC ACID (BEAKER) (test code = 13.2 mg/dL 2.6-7.2 H 773) [id number] 06:15:00 Test Item Value Reference Range Interpretation Comments MAGNESIUM (BEAKER) (test code = 1.8 mg/dL 1.6-2.6 627) LIPID [id number] 06:15:00 Test Item Value Reference Range Interpretation [...] 130-159 High 160-189 Very High >=190HEPATIC FUNCTION [id number] 06:15:00 Test Item Value Reference Range Interpretation [...] 1009 U/L 6-55 H 347) COMPLEMENT COMPONENT [id number] 06:15:00 Test Item Value Reference Range Interpretation Comments C4 COMPLEMENT (BEAKER) (test code = 28 mg/dL 15-57 394) COMPLEMENT COMPONENT [id number] 06:15:00 Test Item Value Reference Range Interpretation [...] L (test code = 2590) BASIC METABOLIC [id number] 06:15:00 Test Item Value Reference Range Interpretation [...] NOT APPLICABLE FOR DIALYSIS PATIEN TS. PROTHROMBIN [id number] 05:57:00 Test Item Value Reference Range Interpretation [...] mechanical heart valves.CBC W/PLT COUNT & AUTO [id number] 05:55:00 Test Item Value Reference Range Interpretation [...] PERCENT (BEAKER) (test code = 2801) TROPONIN [id number] 01:09:00 Test Item Value Reference Range Interpretation [...] acidosis, acute neurological disease, and persistent tachyarrhythmia.OSMOLALITY, [id number] 22:24:00 Test Item Value Reference Range Interpretation Comments OSMOLALITY URINE (BEAKER) (test 317 mOsm/kg 40-1,400 code = 614) HEMOGLOBIN [id number] 22:20:00 Test Item Value Reference Range Interpretation Comments HEMOGLOBIN A1C (BEAKER) (test code = 7.2 % 4.3-6.1 H 368) URINALYSIS W/ [id number] 22:19:00 Test Item Value Reference Range Interpretation [...] code = 516) SOURCE(BEAKER) (test code = 7045) POCT-GLUCOSE [id number] 22:09:00 Test Item Value Reference Range Interpretation Comments POC-GLUCOSE METER 171 mg/dL 70-[address] [facility] 6720 (BEAKER) (test code = MICHAEL [place] 1538) [address] PROTEIN, RANDOM [id number] 21:36:00 Test Item Value Reference Range Interpretation Comments PROTEIN, URINE (BEAKER) (test code = 44 mg/dL 0-14 H 1569) CHLORIDE, RANDOM [id number] 21:30:00 Test Item Value Reference Range Interpretation Comments CHLORIDE URINE (BEAKER) (test code = 96 meq/L 682) Reference Range: No NormalsCREATININE, RANDOM [id number] 21:09:00 Test Item Value Reference Range Interpretation Comments CREATININE URINE (BEAKER) (test 30.6 mg/dL code = 375) Reference Range: No NormalsSODIUM, RANDOM [id number] 21:09:00 Test Item Value Reference Range Interpretation Comments SODIUM URINE (BEAKER) (test code = 90 meq/L 243) Reference Range: No NormalsUREA NITROGEN, RANDOM [id number] 21:09:00 Test Item Value Reference Range Interpretation Comments UREA NITROGEN URINE (BEAKER) (test 232 mg/dL code = 538) Reference Range: No NormalsHEPATITIS PANEL, [id number] 20:39:00 Test Item Value Reference Range Interpretation Comments HEPATITIS A IGM ANTIBODY (BEAKER) Nonreactive Nonreactive (test code = 498) HEPATITIS B CORE IGM ANTIBODY Nonreactive Nonreactive (BEAKER) (test code = 645) HEPATITIS C ANTIBODY (BEAKER) Nonreactive Nonreactive (test code = 367) HEPATITIS B SURFACE ANTIGEN (2) Nonreactive Nonreactive (BEAKER) (test code = 2585) URINALYSIS W/ REFLEX URINE [id number] 20:12:00 Test Item Value Reference Range Interpretation [...] 1584) SOURCE(BEAKER) (test code = 2795) TROPONIN [id number] 19:15:00 Test Item Value Reference Range Interpretation [...] acute neurological disease, and persistent tachyarrhythmia.COMPREHENSIVE METABOLIC [id number] 19:15:00 Test Item Value Reference Range Interpretation [...] U/L 29-200 H code = 380) SALICYLATE [id number] 19:11:00 Test Item Value Reference Range Interpretation Comments SALICYLATE LEVEL (BEAKER) (test code < mg/dL 15.0-30.0 L = 764) Therapeutic Range: 15.0-30.0 mg/dLToxic: >30.0 mg/dL Lethal: >70.0 mg/dLACETAMINOPHEN [id number] 19:10:00 Test Item Value Reference Range Interpretation Comments ACETAMINOPHEN LEVEL (BEAKER) (test < ug/mL 10.0-30.0 L code = 344) Therapeutic Range: 10.0-30.0 g/mLToxic Levels: >200.0 g/mLPROTHROMBIN [id number] 18:59:00 Test Item Value Reference Range Interpretation [...] mechanical heart valves.CBC W/PLT COUNT & AUTO [id number] 18:52:00 Test Item Value Reference Range Interpretation [...] code = 2801) GLUCOMETER GLUCOSE- LAB USE [id number] 06:59:00 Test Item Value Reference Range Interpretation Comments GLUCOMETER (test code 219 mg/dL 70-[address] JOSE CARLOS DHILLON = [facility] [place]) AWAREMeter ID: [id number] tor: [id number] NG GLUCOMETER GLUCOSE- LAB USE [id number] 04:45:00 Test Item Value Reference Range Interpretation Comments GLUCOMETER (test code = 212 mg/dL 70-100 H Mete r ID: GMG) [id number] tor: [id number]
[2021-09-03] MEDS ORDERED: FAMOTIDINE 20 MG/2 ML VIAL IV ONE (15:08)
[2021-09-03] MEDS ORDERED: NA CHLORIDE 0.9% 1,000 ML ONE (15:08)
[2021-09-03] MEDS ORDERED: ONDANSETRON 4 MG/2 ML VIAL ONE (15:08)
[2021-09-03 15:27] LABS: Absolute Lymphocytes (CBC) 0.6 K/uL (0.7-4.9); Hematocrit 27.4 % (36.0-45.0); Lymphocytes % 10.7 % (15.3-44.8); MPV 8.9 fL (7.6-11.3); RBC Red Blood Cell Count 3.22 M/uL (3.86-4.86)
[2021-09-03 15:40] LABS: Albumin 3.4 g/dL (3.4-5.0); Magnesium 1.9 mg/dL (1.8-2.4); Potassium 3.3 mmol/L (3.5-5.1)
[2021-09-03 15:54] LABS: Bilirubin Total 0.4 mg/dL (0.2-1.0); Protein, Total 8.3 g/dL (6.4-8.2); Troponin High Sensitivity 24.5 pg/mL (<58.9)
--- NOTE | 2021-09-03 17:12 | RAD REPORT ---
EXAM DESCRIPTION: RAD - Chest Single View - 09/03/2021 5:07 pm CLINICAL HISTORY: DYSPNEA Chest pain. COMPARISON: Chest Single View dated 04/08/2021; Chest Single View dated 07/03/2020; Chest Single View dated 12/17/2019; Chest Single View dated 12/13/2019 FINDINGS: Portable technique limits examination quality. Mild interstitial pulmonary edema. The heart is moderately enlarged. No displaced fractures. IMPRESSION: Mild CHF.
--- NOTE | 2021-09-03 17:25 | EDPHYS ---
Physician Documentation [facility] Name: Emily Barbour Age: 50 yrs Sex: Female : 1970 Arrival Date: 09/03/2021 Time: 13:50 Bed 6 Private MD: Darrick Alexander HPI: 09/03 14:00 This 50 yrs old Female presents to ER via Ambulatory with complaints of Fatigue, Nausea.jh7 14:00 Patient presents for fatigue, lightheadedness, nausea, abdominal cramping, and vomiting jh7 starting yesterday. The patient gets dialysis Tuesday/Tuesday/Tuesday, and states that she was unable to complete her dialysis yesterday due to restless leg syndrome and "feeling like crud". Denies cough, fever, and chest pain. Ststes that her Supervisor Facepiece Line is Dr. Cameron.. 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 - Social history:: Smoking status: Patient denies any tobacco usage or history of. Patient/guardian denies using alcohol. ROS: 14:00 Neck: Negative for injury, pain, and swelling, Cardiovascular: Negative for chest pain, jh7 palpitations, and edema, Respiratory: Negative for shortness of breath, cough, wheezing, and pleuritic chest pain, Back: Negative for injury and pain, Skin: Negative for injury, rash, and discoloration, Neuro: Negative for headache, weakness, numbness, tingling, and seizure. 14:00 Constitutional: Positive for fatigue, malaise. 14:00 Abdomen/GI: Positive for nausea and vomiting, abdominal cramps, Negative for abdominal pain, constipation, black/tarry stool, rectal bleeding. 14:00 All other systems are negative. Exam: 14:00 Head/Face: Normocephalic, atraumatic. ENT: Nares patent. Oropharynx with no redness, jh7 swelling, or masses, exudates, or evidence of obstruction, uvula midline. Mucous membranes moist. Cardiovascular: Regular rate and rhythm with a normal S1 and S2. No gallops, murmurs, or rubs. Normal PMI, no JVD. No pulse deficits. Respiratory: Lungs have equal breath sounds bilaterally, clear to auscultation and percussion. No rales, rhonchi or wheezes noted. No increased work of breathing, no retractions or nasal flaring. Abdomen/GI: Soft, non-tender, with normal bowel sounds. No distension or tympany. No guarding or rebound. No evidence of tenderness throughout. Skin: Warm, dry with normal turgor. Normal color with no rashes, no lesions, and no evidence of cellulitis. MS/ Extremity: Pulses equal, no cyanosis. Neurovascular intact. Full, normal range of motion. No edema Neuro: Awake and alert, GCS 15, oriented to person, place, time, and situation. . Motor strength 5/5 in all extremities. Sensory grossly intact. Normal gait. 14:00 Constitutional: The patient appears alert, awake, uncomfortable. Vital Signs: 13:53 BP 157 / 71; Pulse 71; Resp 18; Temp 98.6(TE); Pulse Ox 98% on R/A; Weight 107 kg; ld1 Height 5 ft. 5 in. (165.10 cm); Pain 0/10; 15:38 BP 150 / 74; Pulse 65; Resp 15; Pulse Ox 96% ; jl7 17:01 BP 166 / 85; Pulse 65; Resp 15; Pulse Ox 94% ; jl7 13:53 Body Mass Index 39.25 (107.00 kg, 165.10 cm) ld1 MDM: 14:41 Patient medically screened. [facility] 17:15 Data reviewed: vital signs, nurses notes, lab test result(s), radiologic studies, plain [facility] films. Data interpreted: Pulse oximetry: is 94 %. Interpretation: acceptable. Counseling: I had a detailed discussion with the patient and/or guardian regarding: the historical points, exam findings, and any diagnostic results supporting the discharge/admit diagnosis, the need for outpatient follow up, Nephrology. Counseling: I had a detailed discussion with the patient and/or guardian regarding: to return to the emergency department if symptoms worsen or persist or if there are any questions or concerns that arise at home. Response to treatment: the patient's symptoms have mildly improved after treatment. ED course: Consulted with Dr. Cameron regarding patient condition and lab results. Informed him that the patient remained stable throughout the ER visit, and the medication improved her symptoms. I informed him that the patient appears to be undergoing a viral illness and is nontoxic in the ER. No acute abdomen, signs and symptoms of fluid overload, or any other acute changes noted. He stated that he would like her to follow-up tomorrow at the dialysis clinic, and that he would see her than outpatient. Advised the patient that if she develops severe weakness, shortness of breath, chest pain, or any other concerning symptoms, she is to return to the ER. The patient understood the plan of care.. 09/03 14:51 Order name: CMP; Complete Time: 16:12 [facility] 09/03 14:51 Order name: CBC with Diff; Complete Time: 15:46 [facility] 09/03 14:51 Order name: Troponin High Sensitivity; Complete Time: 16:12 [facility] 09/03 14:51 Order name: PROBNP; Complete Time: 16:12 [facility] 09/03 14:51 Order name: Magnesium; Complete Time: 16:12 [facility] 09/03 17:27 Order name: Glucose, Ancillary Testing; Complete Time: 19:20 EDMS 09/03 14:51 Order name: EKG; Complete Time: 14:52 [facility] 09/03 16:27 Order name: XRAY Chest (1 view); Complete Time: 17:17 [facility] Administered Medications: 15:28 Drug: Pepcid (famotidine) 20 mg Route: IVP; Site: right antecubital; [facility] 16:00 Follow up: Response: No adverse reaction [facility] 15:28 Drug: Zofran (Ondansetron) 4 mg Route: IVP; Site: right antecubital; 7 16:00 Follow up: Response: No adverse reaction; Nausea is decreased [facility] 15:28 Drug: NS 0.9% 1000 ml Route: IV; Rate: 125 ml/hr; Site: right antecubital; 7 18:00 Follow up: Response: No adverse reaction; IV Status: Completed infusion jl7 Disposition Summary: 09/03/21 17:24 Discharge Ordered Location: Home [facility] Problem: new [facility] Symptoms: have improved [facility] Condition: Stable [facility] Diagnosis - Other malaise and fatigue [facility] - Nausea [facility] Followup: [facility] - With: Jean-Paul Cameron, - When: Tomorrow - Reason: Recheck today's complaints Discharge Instructions: - Discharge Summary Sheet [facility] - Nausea, Adult jh7 - Viral Illness, Adult [facility] Forms: - Medication Reconciliation Form [facility] - Thank You Letter [facility] Prescriptions: - ondansetron 4 mg Oral tablet,disintegrating - place 1 tablet by TRANSLINGUAL route 4 times per day; 20 tablet; Refills: 0, jh7 Product Selection Permitted Signatures: Dispatcher [employer] Alayna Rogel RN RN jl7 Leonor Mcgarry RN RN ld1 Negra Campbell, USABILITY SPECIALIST USABILITY SPECIALIST [facility]
--- NOTE | 2021-09-03 17:25 | ER ---
Nurse's Notes [facility] Name: Emily Barbour Age: 50 yrs Sex: Female : 1970 Arrival Date: 09/03/2021 Time: 13:50 Bed 6 Private MD: Diagnosis: Other malaise and fatigue;Nausea Presentation: 09/03 13:53 Chief complaint: Patient states: N/V, lightheadedness. "I just feel like crud." X 2 ld1 DAYS. Coronavirus screen: At this time, the client does not indicate any symptoms associated with coronavirus-19. Ebola Screen: No symptoms or risks identified at this time. Initial Sepsis Screen: Does the patient meet any 2 criteria? No. Patient's initial sepsis screen is negative. Does the patient have a suspected source of infection? No. Patient's initial sepsis screen is negative. Risk Assessment: Do you want to hurt yourself or someone else? Patient reports no desire to harm self or others. Onset of symptoms was September 03, 2021. 13:53 Method Of Arrival: Ambulatory ld1 13:53 Acuity: [place] 3 ld1 Triage Assessment: 13:55 General: Appears in no apparent distress. comfortable, Behavior is calm, cooperative, ld1 appropriate for age. Pain: Denies pain. EENT: No signs and/or symptoms were reported regarding the EENT system. Neuro: Level of Consciousness is awake, alert, obeys commands, Oriented to person, place, time, situation. Respiratory: Airway is patent Respiratory effort is even, unlabored. GI: Abdomen is round non-distended, Reports nausea, vomiting. : No signs and/or symptoms were reported regarding the genitourinary system. Derm: No signs and/or symptoms reported regarding the dermatologic system. Musculoskeletal: No signs and/or symptoms reported regarding the musculoskeletal system. 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 - Social history:: Smoking status: Patient denies any tobacco usage or history of. Patient/guardian denies using alcohol. Screenin:00 Abuse screen: Denies threats or abuse. Denies injuries from another. Nutritional jl7 screening: No deficits noted. Tuberculosis screening: No symptoms or risk factors identified. Fall Risk IV access (20 points). Total Ruano Fall Scale indicates No Risk (0-24 pts). Assessment: 14:45 General: Appears in no apparent distress. uncomfortable, Behavior is cooperative, jl7 anxious. Pain: Denies pain. Neuro: Level of Consciousness is awake, alert, obeys commands, Oriented to person, place, time, situation. Cardiovascular: Patient's skin is warm and dry. Respiratory: Airway is patent Respiratory effort is even, unlabored, Respiratory pattern is regular, symmetrical, Denies shortness of breath. GI: Abdomen is non-distended, Reports nausea, vomiting, Patient currently denies diarrhea. : Denies burning with urination, pain with urination. Derm: Skin is pink, warm \\T\\ dry. 17:30 Reassessment: Patient and/or family updated on plan of care and expected duration. Pain jh6 level reassessed. Patient is alert, oriented x 3, equal unlabored respirations, skin warm/dry/pink. pt stated that she feels like her bs is low. ck'd BS and recorded 67. pt given apple juice and reports that she is no longer nauseated. Patient denies pain at this time. Vital Signs: 13:53 BP 157 / 71; Pulse 71; Resp 18; Temp 98.6(TE); Pulse Ox 98% on R/A; Weight 107 kg; ld1 Height 5 ft. 5 in. (165.10 cm); Pain 0/10; 15:38 BP 150 / 74; Pulse 65; Resp 15; Pulse Ox 96% ; jl7 17:01 BP 166 / 85; Pulse 65; Resp 15; Pulse Ox 94% ; jl7 13:53 Body Mass Index 39.25 (107.00 kg, 165.10 cm) ld1 ED Course: 13:50 Patient arrived in ED. as 13:55 Triage completed. ld1 13:55 Arm band placed on right wrist. ld1 14:27 [facility] jh7 14:28 Darrick Rey MD is Attending Physician. jh7 14:41 Alayna Rawls RN is Primary Nurse. jl7 15:00 Patient has correct armband on for positive identification. Bed in low position. Call jl7 light in reach. Side rails up X 1. Pulse ox on. NIBP on. 15:00 Initial lab(s) drawn, by ED staff, sent to lab. Inserted saline lock: 20 gauge in right jl7 antecubital area, using aseptic technique. ,using aseptic technique. inserted by JOCY Coley Blood collected. 17:09 XRAY Chest (1 view) In Process Unspecified. EDMS 17:23 Jean-Paul Cameron DO is Referral Physician. jh7 18:08 No provider procedures requiring assistance completed. IV discontinued, intact, jl7 bleeding controlled, No redness/swelling at site. Pressure dressing applied. Administered Medications: 15:28 Drug: Pepcid (famotidine) 20 mg Route: IVP; Site: right antecubital; jl7 16:00 Follow up: Response: No adverse reaction jl7 15:28 Drug: Zofran (Ondansetron) 4 mg Route: IVP; Site: right antecubital; jl7 16:00 Follow up: Response: No adverse reaction; Nausea is decreased jl7 15:28 Drug: NS 0.9% 1000 ml Route: IV; Rate: 125 ml/hr; Site: right antecubital; jl7 18:00 Follow up: Response: No adverse reaction; IV Status: Completed infusion jl7 Medication: 14:45 VIS not applicable for this client. jl7 Outcome: 17:24 Discharge ordered by . jh7 18:08 Discharged to home ambulatory. jl7 18:08 Condition: stable 18:08 Discharge instructions given to patient, Instructed on discharge instructions, follow up and referral plans. medication usage, Demonstrated understanding of instructions, follow-up care, medications, Prescriptions given X 1. 18:09 Patient left the ED. jl7 Signatures: Dispatcher [employer] EDPR Clara Arzola Jahala, JOCY RN jl7 Leonor Mcgarry RN RN ld1 Negra Inman, RN RN jh6 Negra Campbell, PAOLA MCCALLP jh7
[2021-09-03 18:32] VITALS: TEMP 98.6
[2021-09-03 18:42] VITALS: BP 166/85; O2SAT 94
== END 2021-09-03 18:09 | disposition home or self-care (01) ==
LOC: ER 13:47
DX: R53.83 Other fatigue (principal); R53.81 Other malaise; R11.0 Nausea; E11.22 Type 2 diabetes mellitus with diabetic chronic kidney disease; I12.9 Hypertensive chronic kidney disease with stage 1 through stage 4 chronic kidney disease, or unspecified chronic kidney disease; N18.4 Chronic kidney disease, stage 4 (severe); Z99.2 Dependence on renal dialysis; Z88.8 Allergy status to other drugs, medicaments and biological substances; Z91.013 Allergy to seafood
CPT/HCPCS: 96361; 93005; 85025; 36415; 83735; 82947 ×2; 84484; 80053; 83880; 71045; 96375; 96374; 99284; J7030; J2405; J3490

== ENCOUNTER 2022-04-01 13:42 | Emergency (ER) | payer OTHER ==
--- OUTSIDE RECORDS SUMMARY | 2022-04-01 13:48 | XMS REPORT | Continuity of Care Document ---
:1970 Author Organization [facility] t Address [address] [place] [address] Care Team Providers Name Role Phone Rakesh MENDEZ Jean-Paul Raghav Primary Care Physician 1, [facility] Attending Clinician Unavailable Yoanna Rhodes MD Attending Clinician YOANNA RHODES Attending Clinician Unavailable Doctor Unassigned, [place] Attending Clinician Unavailable Aurelio Vidal Attending Clinician Unavailable Jayda Irwin Attending Clinician Unavailable MIRIAN PANG Attending Clinician Unavailable MD MIRIAN PANG Attending Clinician Unavailable SANJAY ISRAEL Attending Clinician Unavailable NABILA PAIGE Attending Clinician Unavailable DR BERE SOLANO Attending Clinician Unavailable MIRIAN PANG Admitting Clinician Unavailable MD MIRIAN PANG Admitting Clinician Unavailable NABILA PAIGE Admitting Clinician Unavailable DR BERE SOLANO Admitting Clinician Unavailable Payers Payer Name Policy Type Policy Number Effective Date Expiration Date S ource Problems Condition Condition Condition Status Onset Resolution Last Treating Co mments Source Name Details Category Date Date Treatment Clinician Date End-stage End-stage Disease Active Overview: Methodi renal renal 9-[address] disease disease 00:00: g of this Hospi ta 00 note l might be different from the original. Added automatic ally from request for surgery [id number] History of History of Disease Active 2020-0 M ethodi cholecyste cholecyste 9-16 st ctomy ctomy 00:00: Hospita 00 l History of History of Disease Active 2020-0 M ethodi appendecto appendecto 916 st my my 00:00: Hospita 00 l History of History of Disease Active 2020-0 M ethodi hysterecto hysterecto 9-16 st my my 00:00: Hospita 00 l History of History of Disease Active 2020-0 M ethodi tubal tubal 16 st ligation ligation 00:00: Hospit a 00 l History of History of Disease Active 2020-0 M ethodi adenoidect adenoidect 16 st tj tj 00:00: Hospita 00 l History of History of Disease Active 2020-0 M ethodi fusion of fusion of 16 st cervical cervical 00:00: Hospit a spine spine 00 l Hypothyroi Hypothyroi Disease Active 2020-0 M ethodi dism due dism due 8 st to defect to defect 00:00: Hosp [...] artery 00:00: Hospita disease), disease), 00 l [place] coronary coronary artery artery Chronic Chronic Disease [...] Disease Active [facility] Obesity, Obesity, Disease Active [facility] Class II, Class II, 10-17 [place] s BMI BMI 00:00: Medical 35-39.9 35-39.9 00 Center Elevated Elevated Disease Active [facility] liver liver 10-16 [facility] enzymes enzymes 00:00: Medical 00 [place] Acute Acute Disease Active [facility] respirator respirator 10-16 kes y distress y distress 00:00: Me dical 00 Center Acute Acute Disease Active [facility] congestive congestive 10-16 [facility] heart heart 00:00: Medical failure failure 00 [place] Stage 4 Stage [address] chronic chronic 10-16 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 diabetes diabetes 00:00: Medica l mellitus mellitus 00 Center with stage with 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, disease, with with long-term long-term current current use of use of insulin insulin Morbid Morbid Disease Active Methodi obesity obesity 10-16 st 00:00: Hospita 00 l Obstructiv Obstructiv Disease Active M ethodi e sleep e sleep 10-16 st apnea apnea 00:00: Hospita syndrome syndrome 00 l Vitamin D Vitamin D Disease Active 2013-04 Uni vers deficiency deficiency 2-15 it y of 00:00: [place] [address] Medical Branch HTN HTN Disease Active 2013-04 Univers (hypertens (hypertens 2-10 it y of ion) ion) 00:00: [place] [address] Medical Branch 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 2-10 it y of 00:00: [address] Branch Screening Screening Disease Active 2013-04 Uni vers for for 2-10 ity of endocrine, endocrine, [place] nutrition[place] nutritiona 00 [place] dical l, l, Branch metabolic metabolic and and immunity immunity disorder disorder Type II or Type II or Disease Active 2013-04 U nivers unspecifie unspecifie 2-10 it y of d type d type 00:00: [place] diabetes diabetes 00 Medica l mellitus mellitus Branch with with neurologic neurologic al al manifestat manifestat ions, ions, uncontroll uncontroll ed(250.62) ed(250.62) Neuropathy Neuropathy Disease Active 2013-04 U nivers 2-10 ity of 00:00: [place] 00 Medical Branch Fatigue Fatigue Disease Active 2013-04 Univers 2-10 ity of 00:00: 00 Medical Branch Weight Weight Disease Active 2013-04 Univers gain gain 2-10 ity of 00:00: [place] 00 Medical Branch Hypertrigl Hypertrigl Disease Active 2013-04 U nivers yceridemia yceridemia 2-10 it y of 00:00: [place] Medical Branch Normocytic Normocytic Disease Active 2013-04 U nivers anemia anemia 2-10 ity of 00:00: [place] 00 Medical Branch Elevated Elevated Disease Active 2013-04 Unive rs serum serum 2-10 ity of creatinine creatinine [place] Hyperlipid Hyperlipid Disease Active 2013-04 M ethodi emia emia 2-10 st 00:00: Hospita 00 l Allergies, Adverse Reactions, Alerts Allergy Allergy Status Severity Reaction(s) Onset Inactive Treating Comm ents Source Name Type Date Date Clinician METFORMI Allergy Active Other [facility]16 [facility] 00 Center LINAGLIP Allergy Active Diarrhea [facility] TIN 10-16 [facility] 00[facility] Medical 00 Center DIPHENHY Allergy Active Low Rash [facility] [...] Vomiting 00:00: Medical reaction 00 Center s Diphenhy Propensi Active Rash Method i d-Pe-Melchor ty to 10-10 st taminoph adverse 00:00: Hospita en reaction 00 l s to drug Metformi Propensi Active Other (See Caused Me thodi n ty to Comments) 10-[address] adverse 00:00: failure Hospita reaction 00 l s to drug Linaglip Propensi Active GI Loss of Metho di tin ty to Intolerance 6-[address] adverse 00:00: Hospita reaction 00 l s to drug BENADRYL DRUG Active Rash 2013-04 Univers DECONGES 2-10 ity of TANT 00:00: [place] 00 Medical Branch PENICILL Drug Active Rash 2013-04 Univers INS Class 2-10 ity of 00:00: [place] 00 Medical Branch Benadryl Propensi Active Rash 2013-04 When Univer s Deconges ty to 2-10 taken ity of tant adverse 00:00: with PCN [place] reaction Medical s Branch Penicill Propensi Active Rash 2013-04 When Univer s ins ty to 2-10 taking ity of adverse 00:00: together [place] reaction with Medical s Benadryl Branch Family History Family Member Diagnosis Comments Start Date Stop Date Source Natural brother Congenital heart [facility] Natural brother Coronary artery Meth [facility] disease Natural father Stroke [facility] Natural father Cancer [facility] Natural father Stroke [facility] Natural mother Diabetes [facility] Natural mother [facility]ary [facility] disease Natural mother Diabetes [facility] Natural sister Asthma [facility] Natural sister Thyroid disease [facility] Social History Social Habit Start Date Stop Date Quantity Comments Source Exposure to Yes University of SARS-CoV-2 (event) [facility] History SDOH [facility] Alcohol Std Drinks Medica l Center History SDOH [facility] Alcohol Binge Medical [facility] History SDOH [facility] Alcohol Comment Medical C enter Alcohol intake 2020-01-09 2020-01-09 Ex-drinker Yarsanism 00:00:00 00:00:00 (finding) [facility] Cigarettes smoked 2020-01-04 2020-01-[address] current (pack per 00:00:00 00:00:00 Hospita l day) - Reported Cigarette 2020-01-04 2020-01-04 Yarsanism pack-years 00:00:00 00:00:00 Hospital Tobacco use and 2018-10-16 2018-10-[address] [facility] exposure 00:00:00 00:00:00 Medical Center History SDOH 2018-10-16 2018-10-[address] [facility] Alcohol Frequency 00:00:00 00:00:00 Medical Center History of tobacco 2013-04-18 Current smoker Me thodist use 00:00:00 Hospital Sex Assigned At [birth year] Yarsanism 00:00:00 00:00:00 Hospital Smoking Status Start Date Stop Date Source Former smoker [facility] Medications Ordered Filled Start Stop [...] capsule 36 l insulin 2019-04 Yes 30U [id number] Inject 30 Methodi lispro 1-[id number] (HumaLOG) 10:26: 3D under the [...] 10:26: Hospita 120-180 mg 36 l capsule furosemide 2019-04 Yes 40mg QD Take 40 mg M ethodi (LASIX) 40 1-[address] mg tablet 10:26: daily. Hospit a 36 l DULoxetine 2019-04 Yes 30mg QD Take 30 mg M ethodi (CYMBALTA) 1-[address] 30 MG 10:26: daily. Hospita capsule 36 l insulin 2019-04 Yes 30U [id number] Inject 30 Methodi lispro 1-[id number] (HumaLOG) 10:26: 3D under the [...] hr docosahexae 2019-04 Yes Take by Met elisha han 1-[address] acid-epa 10:26: Hospita 120-180 mg 36 l capsule carvediloL Yes TWICE Method i (COREG) 9-[address] 12.5 MG 00:00: Hospita tablet 00 l carvediloL 2018-0 Yes TWICE Method i (COREG) 9-07 DAILY [...] tablet 58 daily with Center breakfast. cholecalcif Yes Take by [facility] veronica, 7-06 mouth. [facility] vitamin D3, 12:33: Medica l 2,000 unit 58 Center Cap cyanocobala 2018-0 Yes QD Take by [facility] min 7-06 mouth [facility] (VITAMIN 12:33: daily. Medical B-12) 100 58 Center MCG tablet amitriptyli Yes 50mg QD Take [address] ne (ELAVIL) 7-06 by mouth Luke s 50 MG 12:33: nightly. Medical tablet 58 Center DULoxetine Yes 20mg QD Take [address] (CYMBALTA) 7-06 by mouth [facility] 20 MG 12:33: daily. Medical capsule 58 Center magnesium 2019 Yes 500mg Q.5D Take [address] gluconate 7-06 mg by [facility]ukes (MAGONATE) 12:33: mouth 2 Medi donna 27.5 mg 58 (two) Center magne- sium times (500 mg) daily. tablet ferrous Yes 325mg Take 325 [facility] t sulfate 325 7-06 mg by [facility]ukes (65 FE) MG 12:33: mouth Medica l tablet 58 daily with Center breakfast. cholecalcif Yes Take by [facility] veronica, 7-06 mouth. [facility]ukes vitamin D3, 12:33: Medica l 2,000 unit 58 Center Cap cyanocobala Yes QD Take by [facility] min 7-06 mouth [facility]ukes (VITAMIN 12:33: daily. Medical B-12) 100 58 Center MCG tablet ergocalcife 2013-04 Yes [id number] Take 1 Cap Univers rol, 2-15 by mouth ity of vitamin d2, 00:00: weekly. Thien as (VITAMIN 00 Medical D2) 50,000 Branch unit capsule ergocalcife 2013-04 Yes [id number] 62640L Take 1 Cap Univers rol, 2-15 by mouth ity of vitamin d2, 00:00: weekly. Thien as (VITAMIN 00 Medical D2) 50,000 Branch unit capsule FERROUS 2013-04 Yes Take by Univers SULFATE, 2-10 mouth. ity of DRIED 12:29: [place] (IRON, 37 Medical DRIED, Branch ORAL) OMEPRAZOLE 2013-04 Yes Take by [facility] ers MAGNESIUM 2-10 mouth. ity of (PRILOSEC 12:29: [place] OTC ORAL) [address] [place] [address] MULTIVITS,C 2013-04 Yes Take by Uni vers A,MINERALS/ 2-10 mouth. ity of IRON/FA 12:29: [place] (ONE-A-DAY 37 [facility] FORMULA ORAL) FERROUS 2013-04 Yes Take by Univers SULFATE, 2-10 mouth. ity of DRIED 12:29: [place] (IRON, 37 Medical DRIED, Branch ORAL) OMEPRAZOLE 2013-04 Yes Take by [facility] ers MAGNESIUM 2-10 mouth. ity of (PRILOSEC 12:29: [place] OTC ORAL) [address] [place] [address] Branch MULTIVITS,C 2013-04 Yes Take by Uni vers A,MINERALS/ 2-10 mouth. ity of IRON/FA 12:29: [place] (ONE-A-DAY 37 [facility] FORMULA ORAL) Fenofibrate 2013-04 Yes Take by Uni vers (LOFIBRA) 2-10 mouth. ity of 160 mg [...] Medical Branch Fenofibrate 2013-04 Yes Take by Uni vers (LOFIBRA) 2-10 mouth. ity of 160 mg Tab 12:21: [place] [address] Medical Branch amitriptyli 2013-04 Yes 50mg Take [...] before breakfast and dinner. atorvastati 2013-04 Yes [id number] 40mg Take 1 Tab Univers n (LIPITOR) [...] before breakfast and dinner. atorvastati 2013-04 Yes [id number] 40mg Take 1 Tab Univers n (LIPITOR) 2-10 by mouth ity of 40 mg 00:00: at [place] tablet 00 bedtime. Medical Branch Vital Signs Vital Name Observation Time Observation Value Comments Source Body height 2020-07-04 13:45:00 165.1 cm [facility] Body weight 2020-07-04 13:45:00 104.327 kg [facility] BMI 2020-07-04 13:45:00 38.27 kg/m2 [facility] Procedures Procedure Date / Time Performed Performing Clinician [facility] e ASSIGNMENT OF BENEFITS 2021-04-08 14:49:14 Doctor Unassigned, No [facility] Medical Branch Plan of Care Planned Activity Planned Date Details Comments Source Future Scheduled 2022-02-20 HEPATITIS B VACCINES [facility] Test 10:12:44 (1 of 3 - 3-dose series) [code = HEPATITIS B VACCINES (1 of 3 - 3-dose series)] Future Scheduled 2022-02-20 COVID-19 VACCINE (#1) [facility] Test 10:12:44 [code = COVID-19 VACCINE (#1)] Future Scheduled 2022-02-20 Pneumococcal Vaccine: [facility] Test 10:12:44 Pediatrics (0 to 5 Years) and At-Risk Patients (6 to 64 Years) (1 - PCV) [code = Pneumococcal Vaccine: Pediatrics (0 to 5 Years) and At-Risk Patients (6 to 64 Years) (1 - PCV)] Future Scheduled 2022-02-20 DIABETES: RETINAL EYE [facility] Test 10:12:44 EXAM [code = DIABETES: RETINAL EYE EXAM] Future Scheduled 2022-02-20 DIABETIC FOOT EXAM [facility] Test 10:12:44 [code = DIABETIC FOOT EXAM] Future Scheduled 2022-02-20 Hepatitis C screening [facility] Test 10:12:44 (procedure) [code = 600275526] Future Scheduled 2022-02-20 SHINGLES VACCINES (1 Met [facility] Test 10:12:44 of 2) [code = SHINGLES VACCINES (1 of 2)] Future Scheduled 2022-02-20 Screening for [facility] Test 10:12:44 malignant neoplasm of cervix (procedure) [code = 138400855] Future Scheduled 2022-02-20 BREAST CANCER [facility] Test 10:12:44 SCREENING [code = BREAST CANCER SCREENING] Future Scheduled 2022-02-20 COLONOSCOPY SCREENING [facility] Test 10:12:44 [code = COLONOSCOPY SCREENING] Future Scheduled 2022-02-20 INFLUENZA VACCINE Method is Hospital Test 10:12:44 [code = INFLUENZA VACCINE] Future Scheduled 2021-10-[address] [facility] Test 00:00:00 (procedure) [code = Medical Center 09894079] Future Scheduled 2021-04-08 COVID-19 VACCINE (1) [facility] Hospital Test 13:44:10 [code = COVID-19 VACCINE (1)] Future Scheduled 2021-04-08 DIABETES: RETINAL EYE [facility] Test 13:44:10 EXAM [code = DIABETES: RETINAL EYE EXAM] Future Scheduled 2021-04-08 DIABETIC FOOT EXAM [facility] Test 13:44:10 [code = DIABETIC FOOT EXAM] Future Scheduled 2021-04-08 Hepatitis C screening [facility] Test 13:44:10 (procedure) [code = 745006033] Future Scheduled 2021-04-08 Screening for [facility] Test 13:44:10 malignant neoplasm of cervix (procedure) [code = 353475248] Future Scheduled 2021-04-08 BREAST CANCER [facility] Test 13:44:10 SCREENING [code = BREAST CANCER SCREENING] Future Scheduled 2021-04-08 COLONOSCOPY SCREENING [facility] Test 13:44:10 [code = COLONOSCOPY SCREENING] Future Scheduled 2021-04-08 [facility]IN[facility] 13:44:10 [code = SHINGLES VACCINES [...] 2019-04-[address] [facility] Test 00:00:00 measurement Medical Center (procedure) [code = 00236558] Future Scheduled 1991-10-[address] [facility] Test 00:00:00 malignant neoplasm of [facility] cervix (procedure) [code = 097309083] Future Scheduled 1989 DTAP/TDAP/TD VACCINES CH I [...] 00:00:00 examination Medical Center (regime/therapy) [code = 007108503] Future Scheduled 1980 Urine screening for [facility] Test 00:00:00 protein (procedure) Medical Center [code = 811372565] Future Scheduled [address] [facility] Test 00:00:00 0-64 YRS (1 of 2 - Medical C enter PPSV23) [code = PNEUMOCOCCAL VACCINE 0-64 YRS (1 of 2 - PPSV23)] Future Scheduled [address] [facility] Test [facility] [place] [facility] (procedure) [code = 490095566] Future Scheduled [address] [facility] Test 00:00:00 malignant neoplasm of [facility] colon (procedure) [code = 234055626] Encounters Start End Encounter Admission Attending Care Care Encounter Source Date/Time Date/Time Type Type Clinicians Facility Department ID 2021-04-08 2021-04-08 Laundry Manager 1, Adc Lab [facility] [id number] Univers 08:45:00 09:00:00 Visit Yoanna Rhodes [id number] ity [facility] [id number] [facility] [phone] [place] [address] Branch 2021-04-08 2021-04-08 Outpatient R [facility] [id number] Univers 08:45:00 08:45:00 YOANNA mcginnis [facility] 2021-04-08 2021-04-08 Orders Doctor LIVIA [id number] Univers 00:00:00 00:00:00 Only Unassigned, AUGUSTINE [id number] [place] [facility] [id number] [place] [address] [id number] [place] [address] Branch 2020-07-04 2020-07-04 Documentat Young [facility] [id number] 00:00:00 00:00:00 [facility] 2020-07-04 2020-07-04 Darren Vidal [facility] [id number] 00:00:00 00:00:00 [facility] 2020-07-04 2020-07-04 Darren Vidal [facility] [id number] 00:00:00 00:00:00 [facility] 2020-07-04 2020-07-04 Darren Vidal [facility] [id number] 00:00:00 00:00:00 [facility] 2020-06-17 2020-06-17 Documentat Young [facility] [id number] 00:00:00 00:00:00 [facility] 2020-06-17 2020-06-17 Darren Vidal [facility] [id number] 00:00:00 00:00:00 [facility] 2020-06-11 2020-06-11 [id number] 00:00:00 00:00:00 [facility] 2020-06-11 2020-06-11 Documentmarialuisa Vidal [facility] [id number] 00:00:00 00:00:00 [facility] 2020-06-11 2020-06-11 Document [facility] [id number] 00:00:00 00:00:00 [facility] 2020-05-29 2020-05-29 Abstract [facility] [id number] 00:00:00 00:00:00 [facility] 2020-05-29 2020-05-29 [facility]ialuisa [facility] [id number] 00:00:00 00:00:00 [facility] 2020-05-29 2020-05-29 Documentmarialuisa Vidal [facility] [id number] 00:00:00 00:00:00 [facility] 2020-05-29 2020-05-29 Telephone Young [facility] [id number] 00:00:00 00:00:00 [facility] 2020-05-29 2020-05-29 [facility]ialuisa [facility] [id number] 00:00:00 00:00:00 [facility] 2020-05-26 2020-05-26 Telephone Dc [facility] [id number] 00:00:00 00:00:00 [facility] 2020-03-11 2020-03-11 Outpatient MIRIAN PANG [facility] [id number] [place] 00:00:00 00:00:00 Lesly apodaca 2020-02-19 2020-02-19 Outpatient BIRD, MIRIAN [facility] [id number] [place] 00:00:00 00:00:00 237 Method i 2020-02-05 2020-02-05 Outpatient [facility] [id number] [place] 00:00:00 00:00:00 683 Method i 2020-02-05 2020-02-05 Outpatient BIRDMIRIAN [facility] [id number] [place] 00:00:00 00:00:00 865 Method i 2020-01-08 2020-01-08 Outpatient BIRDMIRIAN [facility] 021 [id number] [place] 00:00:00 00:00:00 914 Method i 2020-01-04 2020-01-04 Outpatient BIRDMIRIAN [facility] [id number] [place] 00:00:00 00:00:00 266 Method i 2020-01-04 2020-01-04 Outpatient WOJCIECHOWS [facility] [id number] [place] 00:00:00 00:00:00 KI, 146 Method i SANJAY 2020-01-02 2020-01-02 Outpatient [facility] [id number] [place] 00:00:00 00:00:00 827 Method i 2020-01-02 2020-01-02 Outpatient BIRDMIRIAN [facility] [id number] [place] 00:00:00 00:00:00 976 Method i 2018 2018 Outpatient C XIOMARA, [facility] [id number] [place] 04:57:00 08:15:00 [facility] Results Test Description Test Time Test Comments Results Result Comments Source SARS-CoV-2 (COVID-19) RNA [Presence] in Respiratory sp ecimen by 2020-01-05 04:24:43 JASON with probe detection Test Item Value Reference Range Interpretation Comme nts SARS-CoV-2 (COVID-19) RNA [Presence] in Respiratory Not detected No t-Detected specimen by JASON with probe detection (test code = 86907-5) [facility] [id number] 14:30:00Bone Marrow Pathology Report Case: [id number] Authorizing Provider: Tiff Colmenares MD Collected: 10/20/2018 1030 Ordering Location: [address]: 10/20/2018 1151 Service Pathologist: Damián Mckeon MD [...] OR ACUTE LEUKEMIA.BLASTS ARE NOT INCREASED.STORAGE IRON ISDECREASED.SEE DIAGNOSTIC COMMENT. PERIPHERAL BLOOD:NORMOCYTIC ANEMIA.NO CIRCULATING BLASTS. SigningPathologist Direct Phone Line: [phone] signed by Damián Mckeon MD on 10/24 at 4:50 PMThere is no morphologic or immunophenotypic evidence of lymphoma or acute leukemia. This patient has a reported clinical history of anemia and hepatosplenomegaly as per the electronic medical records in [place]. The morphologic finding of the megakaryocytes is nonspecific and could be reactive however they raise concern for the presence of an evolving myeloid neoplasm. Molecular and cytogenetic studies are currently pending, with results to be issued in an addendum report. 05817; 29193;64583 x 2; 19860; 98250, 44008, 60504x5Cbvamz Bone marrow The case is received in three parts all labeled with the patient's name, Jose Barbour, date of 1970, and accession number,[id number], which corresponds to the accompanying requisition page labeled with the same name and accession number.Part B. Received in formalin labeled with the patient's information only is a 2.0 x 1.0x 1.0 cm blood clot. The specimen is bisected and submitted entirely in cassette B1.Part C. Receivedin formalin labeled with the patient's information only is a 2.1 cm long x 0.2 cm in diameter red-brown cylindrical portion of bone. The specimen is submitted in toto following decalcification cassetteC1.Also received with the case is a blood smear labeled with the patient's name, date of and ac cession number. RP/ew BONE MARROW ASPIRATE:QUALITY:Aspirate- AdequateTouch imprint- AdequateMARROW DIFFERENTIAL COUNT: Number of cells counted: 3001% Blasts 1% Promyelocytes 23% Myelocytes/Metamyelocytes 29% Bands/Segmented granulocytes 2% Eosinophils and precursors 0% Basophils and precursors 38% Eryt hroid precursors 4% Lymphocytes 0% Monocytes2% Plasma cellsMyeloid: [...] demonstrate small mature CD20 positive B cells andCD3 positive T cells. Blasts are not increased by CD34. Plasma cells are polytypic for kappa and lambda immunostains. Stainable iron is focally identified on the clot section by the Perls iron special stain. PERIPHERAL BLOOD:Red cells: Mild anisopoikilocytosis with polychromasia White cells: Mild leftshift. No circulating blastsPlatelets: UnremarkableThe interpretation of this case included the use of immunohistochemistry or special stains.BLOCK B1- PERLS IRONBLOCK C1- CD20, CD3, CD34, KAPPA, LAMBDAControl Slides Examined: In- house known positive controls were evaluated along with the test tissue.These control slides run alongside of the patients sample show appropriate staining. Internal positive and negative controls when available are evaluated Immunohistochemistry technical testing was performed at [facility], Pathology Laboratory where it was developed and [...] Laboratory Improvement Amendments of 1988 (CLIA-88) as qualifiedto perform high complexity clinical laboratory testing.FLOW CYTOMETRY [id number] 14:30:00 Test Item Value Reference Range Interpretation Comments FLOW CYTOMETRY RESULT See Separate Report POINTER (OPAL) (test code = 2758) FLOW CYTOMETRY AP CASE # [id number] (OPAL) (test code = 2759) FLOW [id number] 09:46:00Flow Cytometry Report Case: [id number] Authorizing Provider: Tiff Colmenares MD Collected: 10/20/2018 1151 Ordering Location: [address] Received: 10/20/2018 1336 Service Pathologist: Damián Mckeon MD Specimen: Other BONE MARROW, FLOW CYTOMETRY:NO MONOCLONAL B CELL POPULATION.NO ABNORMAL T CELL POPULATION.NO INCREASED BLAST POPULATION.CORRELATION WITH MORPHOLOGIC FINDINGS R EQUIRED. 96820MhrxzeGidy marrow CD8, surface-[place], CD56, surface-Lambda, CD5, CD19, CD10, CD3, CD20, CD4, CD45, CD14, CD13, CD33, CD117, CD34, cKappa, cLambda, CD38, SV099Ijglarev Viability: 97.2% Blasts: The dim CD45+ CD34+ [...] represent nonviable cells, non- hematolymphoid cells, and/or debris. These tests were developed and their performancecharacteristics determined by [facility]. They have not been cleared or approved [...] Test performed by IFA method.ANGELES TITER AND [id number] 11:18:00 Test Item Value Reference Range Interpretation Comments ANGELES TITER (BEAKER) (test code = :160 1541) ANGELES PATTERN (BEAKER) (test code = Nucleolar 1781) HEPATITIS A [id number] 08:30:00 Test Item Value Reference Range Interpretation Comments HEPATITIS A IGM ANTIBODY (BEAKER) Nonreactive Nonreactive (test code = 498) HEPATITIS A IGG ANTIBODY (BEAKER) Reactive Nonreactive A (test code = 2797) POCT-GLUCOSE [id number] 08:29:00 Test Item Value Reference Range Interpretation Comments POC-GLUCOSE METER 270 mg/dL 70-[address] [facility] 6720 (BEAKER) (test code = MICHAEL Garcia [facility] 1538) [address] HEPATITIS B [id number] 08:29:00 Test Item Value Reference Range Interpretation Comments HEPATITIS B CORE TOTAL ANTIBODY Nonreactive Nonreactive (BEAKER) (test code = 497) HEPATITIS B SURFACE ANTIBODY < mIU/mL <8.0 (BEAKER) (test code = 647) HEPATITIS B SURFACE ANTIGEN (2) Nonreactive Nonreactive (BEAKER) (test code = 2585) BASIC METABOLIC [id number] 06:54:00 Test Item Value Reference Range Interpretation [...] S NOT APPLICABLE FOR DIALYSIS PATIEN TS. [id number] 06:50:00 Test Item Value Reference Range Interpretation Comments MAGNESIUM (BEAKER) (test code = 2.1 mg/dL 1.6-2.6 627) HEPATIC FUNCTION [id number] 06:50:00 Test Item Value Reference Range Interpretation [...] 224 U/L 125-220 H code = 635) [id number] 06:20:00 Test Item Value Reference Range Interpretation Comments FERRITIN (BEAKER) (test code = 1162 ng/mL 5-275 H 361) POCT-GLUCOSE [id number] 21:09:00 Test Item Value Reference Range Interpretation Comments POC-GLUCOSE METER 336 mg/dL 70-110 H Notified R Magdy ARVIZU/TESTED (BEAKER) (test code = AT [facility] 6720 [place] 1538) [facility] 7703 0 POCT-GLUCOSE [id number] 18:17:00 Test Item Value Reference Range Interpretation Comments POC-GLUCOSE METER 308 mg/dL 70-[address] [facility] 6720 (BEAKER) (test code = MICHAEL Garcia [facility] 1538) [address] PROTEIN ELECTROPHORESIS, [id number] 17:39:00 Test Item Value Reference Range Interpretation [...] and concomitant chronic immune or inflammatory response. [id number] Armani To M.D. (BEAKER) (test code = [...] 25 mcg of fentanyl were administered using themoderate sedation protocol. The patient's nurse was responsible for administrating the medicine and continuous monitoring the patient under the supervision of the physician. Moderate sedation time: 20 minutes. TECHNIQUE: Using sterile technique, CT fluoroscopic guidance and a 12-gauge BloodhoundoptRecurious core biopsy system, initially a nine cc aspiration of the posterior left iliac bone was performed. This was given to the health type technician who was present at the time of the study and deemed adequate. Subsequently, a core biopsy was obtained. This was also given to the health type technician. COMPLICATIONS: None. ESTIMATED BLOOD LOSS: Minimal. Patient Disposition: The patient was in the same state post procedure as preprocedure. IMPRESSION: Successful CT-guided aspiration and core biopsy of the bone marrow.Signed: Long Shepherd MDReport Verified Date/Time: 10/20/2018 11:46:15 Reading Location: [address] Consult Reading Room POCT-GLUCOSE [id number] 11:37:00 Test Item Value Reference Range Interpretation Comments POC-GLUCOSE METER 213 mg/dL 70-[address] [facility] 6720 ([facility]) (test code = [facility] 1538) [address] CBC W/PLT COUNT & AUTO [id number] 10:17:00 Test Item Value Reference Range Interpretation Comments WHITE BLOOD CELL COUNT ([facility]) 5.6 K/ L 3.5-10.5 (test code = 775) RED BLOOD CELL COUNT ([facility]) 3.27 M/ L 3.93-5.22 L [...] Received comment: User comments: Slide comments:BASIC METABOLIC [id number] 07:15:00 Test Item Value Reference Range Interpretation [...] S NOT APPLICABLE FOR DIALYSIS PATIEN TS. [id number] 06:12:00 Test Item Value Reference Range Interpretation Comments MAGNESIUM (BEAKER) 2.0 mg/dL 1.6-2.6 Specimen slightly (test code = 627) hemolyzed [id number] 06:12:00 Test Item Value Reference Range Interpretation Comments PHOSPHORUS (BEAKER) 4.7 mg/dL 2.3-4.7 Specimen slightly (test code = 604) hemolyzed [id number] 06:06:00 Test Item Value Reference Range Interpretation [...] is 2.5-3.5 for patients wiht mechanical heart valves.POCT-GLUCOSE [id number] 21:39:00 Test Item Value Reference Range Interpretation Comments POC-GLUCOSE METER 327 mg/dL 70-110 H Will Repea t Test/TESTED (OPAL) (test code = AT [facility] 67[address] [place] [address]398) [facility] 7703 0 POCT-GLUCOSE [id number] 17:28:00 Test Item Value Reference Range Interpretation Comments POC-GLUCOSE METER 244 mg/dL 70-110 H TESTED AT [place] [address] ([facility]) (test code = MICHAEL Garcia [place] [address]) [address] RHEUMATOID FACTOR AB, REFLEX TO [id number] 11:15:00 Test Item Value Reference Range Interpretation Comments RHEUMATOID FACTOR (OPAL) (test Negative code = 573) CBC W/PLT COUNT & AUTO [id number] 09:44:00 Test Item Value Reference Range Interpretation Comments WHITE BLOOD CELL COUNT (AKER) 4.8 K/ L 3.5-10.5 (test code = 775) RED BLOOD CELL COUNT (AKER) 3.17 M/ L 3.93-5.22 L (test code [...] 3438) Received comment: User comments: Slide comments:POCT-GLUCOSE [id number] 09:05:00 Test Item Value Reference Range Interpretation Comments POC-GLUCOSE METER 166 mg/dL 70-[address] [facility] 6720 (BEAKER) (test code = MICHAEL Garcia [place] 1538) [address] COMPREHENSIVE METABOLIC [id number] 07:14:00 Test Item Value Reference Range Interpretation [...] S NOT APPLICABLE FOR DIALYSIS PATIEN TS. [id number] 06:36:00 Test Item Value Reference Range Interpretation Comments MAGNESIUM (BEAKER) 2.0 mg/dL 1.6-2.6 Specimen slightly (test code = 627) hemolyzed [id number] 06:36:00 Test Item Value Reference Range Interpretation Comments PHOSPHORUS (BEAKER) 4.4 mg/dL 2.3-4.7 Specimen slightly (test code = 604) hemolyzed URIC [id number] 06:36:00 Test Item Value Reference Range Interpretation Comments URIC ACID (BEAKER) 9.8 mg/dL 2.6-7.2 H Specimen slightly (test code = 773) hemolyzed HEPATIC FUNCTION [id number] 06:36:00 Test Item Value Reference Range Interpretation [...] 0-100 H (test code = 700) PROTHROMBIN [id number] 06:06:00 Test Item Value Reference Range Interpretation [...] is 2.5-3.5 for patients wiht mechanical heart valves.CALCIUM, [id number] 05:56:00 Test Item Value Reference Range Interpretation Comments CALCIUM IONIZED (BEAKER) (test 1.10 mmol/L 1.12-1.27 L code = 698) PH, BLOOD (BEAKER) (test code = 7.38 1810) CALCIUM, [id number] 05:56:00 Test Item Value Reference Range Interpretation Comments CALCIUM IONIZED (BEAKER) (test 1.07 mmol/L 1.12-1.27 L code = 698) PH, BLOOD (BEAKER) (test code = 7.41 1810) POCT-GLUCOSE [id number] 21:33:00 Test Item Value Reference Range Interpretation Comments POC-GLUCOSE METER 297 mg/dL 70-[address] [facility] 6720 ([facility]) (test code = MICHAEL [place] 1538) [address] CMV PCR, [id number] 18:31:00 Test Item Value Reference Range Interpretation [...] recipients, a threshold between 4,000 and 5,000 copies/mLis suggested. For treatment of primary CMV infection, [...] and its performance characteristics determined by the [facility] Pathol ogy Department, Section of Molecular Pathology. It has not been cleared or approved by the U.S. Foodand Drug Administration (FDA), since FDA approval is not required for clinical use of the test. Validation was done as required by The Clinical Laboratory Improvement Amendments of 1988.EBV VIRAL [id number] 18:23:00 Test Item Value Reference Range Interpretation [...] (2) real-time PCR amplification and detection with GZAG-6-itszwxqt primers and probes. A well-conserved region of the EBNA-1 gene is targeted, along with an internal control sequence used to confirm PCR amplification. Asymptomatic carriers and viral genetic variation, among other factors, can affect the accuracy of nucleic acidtesting; therefore, results should be interpreted in light of clinical data.This test was developed and its performance characteristics determined by the [facility] Pathology Department,Section of Molecular Pathology. It has not been cleared or approved by the U.S. Food and Drug Administration (FDA), since FDA approval is not required for clinical use of the test. Validation was done as required by The Clinical Laboratory Improvement Amendments of 1988.POCT-GLUCOSE METER 2018-10-18 18:02:00 Test Item Value Reference Range Interpretation Comments POC-GLUCOSE METER 198 mg/dL 70-[address] [facility] 6720 (BEAKER) (test code = MICHAEL Garcia [facility] 1538) [address] RESPIRATORY PANEL [id number] 17:32:00 Test Item Value Reference Range Interpretation [...] sample was tested at the [facility] Molecular Diagnostics Laboratory using the [employer] Respiratory Panel. It is FDA cleared and has been verified and approved by the [facility] Molecular Diagnostics Laboratory for clinical use on nasopharyngeal swab specimens.The performance of the FilmArrayRP has not been established in individuals who received influenza vaccine. Recent administration of a nasal influenza vaccine may cause false positive results for Influenza A and/orInfluenza B.EOSINOPHIL SMEAR, [id number] 16:42:00 Test Item Value Reference Range Interpretation Comments EOSINOPHIL SMEAR, URINE Rare EOS =less than No EOS seen A (BEAKER) (test code = 5% WBCs seen are EOS 1851) CT, CHEST, WITHOUT [id number] 16:31:00FINAL REPORT CT Chest, abdomen, and pelvis without contrast History: shortness of breath Comparison: none Technique: serial axial imaging was performed without intravenous contrastas per departmental protocol. Multiplanar images are reconstructed and reviewed when indicated. ThisCT examination is performed using one or more [...] bowel wall thickening. No findings to indicate acuteappendicitis. A small amount of free fluid is [...] MDReport Verified Date/Time: 10/18/2018 16:31:25 Reading Location: [facility] [address] Radiology Reading Room CT, [id number] 16:31:00Reason for exam:->hepatosplenomegalyFINAL REPORT CT Chest, abdomen, and pelvis without contrast History: shortness of breath Comparison: none Technique: serial axial imaging was performed without intravenous contrastas per departmental protocol. Multiplanar images are reconstructed and reviewed when indicated. ThisCT examination is performed using one or more [...] No hydronephrosis. No apparent bladder wall thickening. Asmall focus of air within the bladder likely reflects recent instrumentation. Previous hysterectomy.No small or large bowel obstruction. No apparent [...] MDReport Verified Date/Time: 10/18/2018 16:31:25 Reading Location: [facility] [address] Radiology Reading Room CBC W/PLT COUNT & AUTO [id number] 15:06:00 Test Item Value Reference Range Interpretation [...] Negative Negative, Inconclusive (test code = 1623) [id number] 13:19:00 Test Item Value Reference Range Interpretation Comments FERRITIN (BEAKER) (test code = 6230 ng/mL 5-275 H 361) HIV-1 ANTIGEN WITH HIV-1/2 [id number] 12:57:00 Test Item Value Reference Range Interpretation Comments HIV-1 ANTIGEN WITH HIV 1\\T\\2 Nonreactive Nonreactive ANTIBODY (2) (BEAKER) (test code = 2586) [id number] 12:53:00 Test Item Value Reference Range Interpretation Comments HAPTOGLOBIN (BEAKER) (test code = 301 mg/dL 14-258 H 366) [id number] 12:34:00 Test Item Value Reference Range Interpretation [...] is within 95-100% range.ALPHA FETOPROTEIN (AFP), TUMOR [id number] 12:29:00 Test Item Value Reference Range Interpretation Comments ALPHA-FETOPROTEIN (BEAKER) (test code < ng/mL <10.0 = 1094) [id number] 11:08:00 Test Item Value Reference Range Interpretation Comments TRIGLYCERIDES (BEAKER) (test code = 299 mg/dL 540) TRIGLYCERIDE REFERENCE RANGELow Risk <150Borderline Risk 150-199High Risk 200-499Very High Risk >=500POCT-GLUCOSE [id number] 11:05:00 Test Item Value Reference Range Interpretation Comments POC-GLUCOSE METER 248 mg/dL 70-110 H TESTED AT [place] [address] ([facility]) (test code = MICHAEL Garcia [facility] 1538) [address] RETICULOCYTE [id number] 11:05:00 Test Item Value Reference Range Interpretation [...] 20-55 L (test code = 2590) POCT-GLUCOSE [id number] 08:55:00 Test Item Value Reference Range Interpretation Comments POC-GLUCOSE METER 198 mg/dL 70-[address] [facility] 67 (BEAKER) (test code = [facility] Rad[place] 1538) [address] [id number] 06:57:00 Test Item Value Reference Range Interpretation Comments PHOSPHORUS (BEAKER) (test code = 4.5 mg/dL 2.3-4.7 604) [id number] 06:57:00 Test Item Value Reference Range Interpretation Comments MAGNESIUM (BEAKER) (test code = 1.7 mg/dL 1.6-2.6 627) HEPATIC FUNCTION [id number] 06:57:00 Test Item Value Reference Range Interpretation [...] 693 U/L 6-55 H 347) BASIC METABOLIC [id number] 06:57:00 Test Item Value Reference Range Interpretation [...] NOT APPLICABLE FOR DIALYSIS PATIEN TS. PROTHROMBIN [id number] 06:37:00 Test Item Value Reference Range Interpretation [...] is 2.5-3.5 for patients wiht mechanical heart valves.CALCIUM, [id number] 06:19:00 Test Item Value Reference Range Interpretation Comments CALCIUM IONIZED (BEAKER) (test 1.09 mmol/L 1.12-1.27 L code = 698) PH, BLOOD (AKER) (test code = 7.36 1810) POCT-GLUCOSE [id number] 21:54:00 Test Item Value Reference Range Interpretation Comments POC-GLUCOSE METER 281 mg/dL 70-[address] [facility] 6720 ([facility]) (test code = MICHAEL [place] 1538) [address] RAD, CHEST, 1 VIEW, NON [id number] 19:11:00Reason for exam:->SOBShould this be performed at [...] MDReport Verified Date/Time: 10/17/2018 19:11:02 Reading Location: [address] Consult Reading Room [id number] 17:36:00 Test Item Value Reference Range Interpretation Comments FERRITIN (BEAKER) (test code = 85679 ng/mL 5-275 H 361) LACTATE DEHYDROGENASE (LDH)2018-10-17 16:41:00 Test Item Value Reference Range Interpretation Comments LACTATE DEHYDROGENASE (BEAKER) (test 541 U/L 125-220 H code = 635) [id number] 16:37:00 Test Item Value Reference Range Interpretation Comments FIBRINOGEN LEVEL (BEAKER) (test 439 mg/dl 225-434 H code = 658) POCT-GLUCOSE [id number] 12:47:00 Test Item Value Reference Range Interpretation Comments POC-GLUCOSE METER 250 mg/dL 70-[address] [facility] 6720 (OPAL) (test code = MICHAEL [place] 1538) [address] PUL PERF IMAGING, PARTIC, [id number] 10:48:00FINAL REPORT PROCEDURE: V/Q LUNG SCAN CPT CODE: 55570 INDICATION: Acute chest pain pulmonary origin PROTOCOL: [...] of a fatty liver. Signed: Alvino Miranda [facility] Verified Date/Time: 10/17/2018 10:48:21 Reading Location: [address] Reading Room 10:48 AMU/S, PELVIC, [id number] 10:02:00Reason for exam:->AKIFINAL REPORT Abdominal and pelvic [...] the abdomen. Abdominal aorta is normal in caliber.The IVC is patent. Real-time Color and Spectral doppler ultrasound of the abdomen was performed. Main portal vein measures 1.3 cm in diameter. There is hepatopedal flow in the main portal vein with velocity 24 cm/sec. Right and left portal veins are patent. Proper hepatic artery, right hepatic artery,and left hepatic artery are patent with resistive indices 0.8, 0.7, and 0.7 respectively. IVC, Hepatic venous confluence, right HV, middle HV and left HV are patent. No mass or adenopathy is seen in the pelvis. Impression: 1. Hepatosplenomegaly.2. Suboptimal visualization of the pancreas secondary to o verlying gas.3. Echogenic kidneys suggestive of medical renal disease.4. Unremarkable pelvic ultrasound.5. Normal Doppler of the abdomen. Signed: Leobardo Ayoub Verified Date/Time: 10/17/2018 10:02:56 Reading Location: [address] Radiology Reading Room U/S, ABDOMINAL, WITH [id number] 10:02:00Reason for exam:->elevated transaminasesFINAL REPORT Abdominal and [...] the abdomen. Abdominal aorta is normal in caliber.The IVC is patent. Real-time Color and Spectral doppler ultrasound of the abdomen was performed. Main portal vein measures 1.3 cm in diameter. There is hepatopedal flow in the main portal vein with velocity 24 cm/sec. Right and left portal veins are patent. Proper hepatic artery, right hepatic artery,and left hepatic artery are patent with resistive indices 0.8, 0.7, and 0.7 respectively. IVC, Hepatic venous confluence, right HV, middle HV and left HV are patent. No mass or adenopathy is seen in the pelvis. Impression: 1. Hepatosplenomegaly.2. Suboptimal visualization of the pancreas secondary to o verlying gas.3. Echogenic kidneys suggestive of medical renal disease.4. Unremarkable pelvic ultrasound.5. Normal Doppler of the abdomen. Signed: Leobardo Ayoubeport Verified Date/Time: 10/17/2018 10:02:56 Reading Location: [address] Radiology Reading Room VITAMIN B12 AND [id number] 08:37:00 Test Item Value Reference Range Interpretation Comments VITAMIN B12 (BEAKER) (test code = > pg/mL 213-816 H 774) FOLATE (BEAKER) (test code = 362) 13.3 ng/mL >=7.0 POCT-GLUCOSE [id number] 08:32:00 Test Item Value Reference Range Interpretation Comments POC-GLUCOSE METER 168 mg/dL 70-[address] [facility] 6720 (BEAKER) (test code = MICHAEL Garcia [facility] 1538) [address] [id number] 08:03:00 Test Item Value Reference Range Interpretation Comments FERRITIN (BEAKER) (test code = 81194 ng/mL 5-275 H 361) URIC [id number] 06:15:00 Test Item Value Reference Range Interpretation Comments URIC ACID (BEAKER) (test code = 13.2 mg/dL 2.6-7.2 H 773) [id number] 06:15:00 Test Item Value Reference Range Interpretation Comments MAGNESIUM (BEAKER) (test code = 1.8 mg/dL 1.6-2.6 627) LIPID [id number] 06:15:00 Test Item Value Reference Range Interpretation Comments TRIGLYCERIDES (BEAKER) (test code = 223 mg/dL 540) CHOLESTEROL (BEAKER) (test code = 119 mg/dL 631) HDL CHOLESTEROL (BEAKER) (test code 30 mg/dL = 976) LDL CHOLESTEROL CALCULATED (BEAKER) 44 mg/dL (test code = 633) Triglyceride Reference Range: Low Risk <150 Borderline 150-199 High Risk 200- 499 Very High Risk >=500Cholesterol Reference Range: Low Risk <200 Borderline 200-239 High Risk >240HDL Cholesterol Reference Range: Low Risk >=60 High Risk <40LDL Cholesterol Reference Range: Optimal <100 Near Optimal 100-129 Borderline 130-159 High 160-189 Very High >=190HEPATIC FUNCTION [id number] 06:15:00 Test Item Value Reference Range Interpretation [...] 1009 U/L 6-55 H 347) COMPLEMENT COMPONENT [id number] 06:15:00 Test Item Value Reference Range Interpretation Comments C4 COMPLEMENT (BEAKER) (test code = 28 mg/dL 15-57 394) COMPLEMENT COMPONENT [id number] 06:15:00 Test Item Value Reference Range Interpretation [...] L (test code = 2590) BASIC METABOLIC [id number] 06:15:00 Test Item Value Reference Range Interpretation [...] NOT APPLICABLE FOR DIALYSIS PATIEN TS. PROTHROMBIN [id number] 05:57:00 Test Item Value Reference Range Interpretation [...] is 2.5-3.5 for patients wiht mechanical heart valves.CBC W/PLT COUNT & AUTO [id number] 05:55:00 Test Item Value Reference Range Interpretation [...] PERCENT (BEAKER) (test code = 2801) TROPONIN [id number] 01:09:00 Test Item Value Reference Range Interpretation [...] acidosis, acute neurological disease, and persistent tachyarrhythmia.OSMOLALITY, [id number] 22:24:00 Test Item Value Reference Range Interpretation Comments OSMOLALITY URINE (BEAKER) (test 317 mOsm/kg 40-1,400 code = 614) HEMOGLOBIN [id number] 22:20:00 Test Item Value Reference Range Interpretation Comments HEMOGLOBIN A1C (BEAKER) (test code = 7.2 % 4.3-6.1 H 368) URINALYSIS W/ [id number] 22:19:00 Test Item Value Reference Range Interpretation [...] 516) SOURCE(BEAKER) (test code = 2795) POCT-GLUCOSE [id number] 22:09:00 Test Item Value Reference Range Interpretation Comments POC-GLUCOSE METER 171 mg/dL 70-[address] [facility] 6720 (BEAKER) (test code = [place]HAEL [place] 1538) [address] PROTEIN, RANDOM [id number] 21:36:00 Test Item Value Reference Range Interpretation Comments PROTEIN, URINE (BEAKER) (test code = 44 mg/dL 0-14 H 1569) CHLORIDE, RANDOM [id number] 21:30:00 Test Item Value Reference Range Interpretation Comments CHLORIDE URINE (BEAKER) (test code = 96 meq/L 682) Reference Range: No NormalsCREATININE, RANDOM [id number] 21:09:00 Test Item Value Reference Range Interpretation Comments CREATININE URINE (BEAKER) (test 30.6 mg/dL code = 375) Reference Range: No NormalsSODIUM, RANDOM [id number] 21:09:00 Test Item Value Reference Range Interpretation Comments SODIUM URINE (BEAKER) (test code = 90 meq/L 243) Reference Range: No NormalsUREA NITROGEN, RANDOM [id number] 21:09:00 Test Item Value Reference Range Interpretation Comments UREA NITROGEN URINE (BEAKER) (test 232 mg/dL code = 538) Reference Range: No NormalsHEPATITIS PANEL, [id number] 20:39:00 Test Item Value Reference Range Interpretation Comments HEPATITIS A IGM ANTIBODY (BEAKER) Nonreactive Nonreactive (test code = 498) HEPATITIS B CORE IGM ANTIBODY Nonreactive Nonreactive (BEAKER) (test code = 645) HEPATITIS C ANTIBODY (BEAKER) Nonreactive Nonreactive (test code = 367) HEPATITIS B SURFACE ANTIGEN (2) Nonreactive Nonreactive (BEAKER) (test code = 2585) URINALYSIS W/ REFLEX URINE [id number] 20:12:00 Test Item Value Reference Range Interpretation [...] code = 1584) SOURCE(BEAKER) (test code = 3015) TROPONIN [id number] 19:15:00 Test Item Value Reference Range Interpretation [...] acute neurological disease, and persistent tachyarrhythmia.COMPREHENSIVE METABOLIC [id number] 19:15:00 Test Item Value Reference Range Interpretation [...] U/L 29-200 H code = 380) SALICYLATE [id number] 19:11:00 Test Item Value Reference Range Interpretation Comments SALICYLATE LEVEL (BEAKER) (test code < mg/dL 15.0-30.0 L = 764) Therapeutic Range: 15.0-30.0 mg/dLToxic: >30.0 mg/dL Lethal: >70.0 mg/dL ACETAMINOPHEN [id number] 19:10:00 Test Item Value Reference Range Interpretation Comments ACETAMINOPHEN LEVEL (BEAKER) (test < ug/mL 10.0-30.0 L code = 344) Therapeutic Range: 10.0-30.0 g/mLToxic Levels: >200.0 g/mLPROTHROMBIN [id number] 18:59:00 Test Item Value Reference Range Interpretation [...] is 2.5-3.5 for patients wiht mechanical heart valves.CBC W/PLT COUNT & AUTO [id number] 18:52:00 Test Item Value Reference Range Interpretation [...] code = 2801) GLUCOMETER GLUCOSE- LAB USE [id number] 06:59:00 Test Item Value Reference Range Interpretation Comments GLUCOMETER (test code 219 mg/dL 70-[address] EDWIN DUMAS AWAREMeter = GMG) ID: [id number] tor: [id number] NG GLUCOMETER GLUCOSE- LAB USE [id number] 04:45:00 Test Item Value Reference Range Interpretation Comments GLUCOMETER (test code = 212 mg/dL 70-100 H Mete r ID: GMG) [id number] tor: [id number]
[2022-04-01] MEDS ORDERED: ACETAMINOPHEN 500 MG TAB ONE (14:50)
[2022-04-01 14:56] LABS: Absolute Lymphocytes (CBC) 0.6 K/uL (0.7-4.9); Hematocrit 32.4 % (36.0-45.0); Lymphocytes % 16.1 % (15.3-44.8); MCV 89.8 fL (80-100); MPV 9.7 fL (7.6-11.3)
--- NOTE | 2022-04-01 14:56 | RAD REPORT ---
EXAM DESCRIPTION: CT - Head Brain Wo Cont - 04/01/2022 2:40 pm CLINICAL HISTORY: headache 3 weeks COMPARISON: <Comparisons> TECHNIQUE: All CT scans are performed using dose optimization technique as appropriate and may inclu de automated exposure control or mA/KV adjustment according to patient size. FINDINGS: No intracranial hemorrhage, hydrocephalus or extra-axial fluid collection.No areas of brai n edema or evidence of midline shift. Mild maxillary sinus thickening. The calvarium is intact. IMPRESSION: No acute intracranial abnormality.
[2022-04-01] MEDS ORDERED: METHYLPREDNISOLONE 125 MG INJ ONE (15:13)
[2022-04-01 15:46] LABS: Potassium 2.7 mmol/L (3.5-5.1)
--- NOTE | 2022-04-01 16:02 | ER ---
Nurse's Notes [facility] Name: Emily Barbour Age: 51 yrs Sex: Female : 1970 Arrival Date: 04/01/2022 Time: 13:46 Bed 10 Private MD: Diagnosis: Tension-type headache Presentation: 04/01 14:10 Chief complaint: Patient states: BP was 232/109 at home today. BRANCH 8/10 x 3 weeks. jl7 Coronavirus screen: At this time, the client does not indicate any symptoms associated with coronavirus-19. Ebola Screen: No symptoms or risks identified at this time. Initial Sepsis Screen: Does the patient meet any 2 criteria? No. Patient's initial sepsis screen is negative. Does the patient have a suspected source of infection? No. Patient's initial sepsis screen is negative. Risk Assessment: Do you want to hurt yourself or someone else? Patient reports no desire to harm self or others. Onset of symptoms was April 01, 2022. 14:10 Method Of Arrival: Ambulatory [facility] 14:10 Acuity: SALENA 3 jl7 Triage Assessment: 14:11 Headache History: The patient has had previous headaches and this one is similar to jl7 previous episodes. General: Appears in no apparent distress. uncomfortable, Behavior is calm, cooperative, appropriate for age. Pain: Complains of pain in BRANCH Pain currently is 8 out of 10 on a pain scale. Pain began x3 weeks Also complains of no other associated symptoms. 14:11 Neuro: Level of Consciousness is awake, alert, obeys commands, Oriented to person, jl7 place, time, situation. 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 - Hysterectomy jl7 Historical: - Allergies: 14:11 Benadryl; jl7 14:11 metformin; jl7 14:11 Tradjenta; jl7 14:11 shrimp; jl7 - Home Meds: 14:11 carvedilol 25 mg oral tab 1 tab 2 times per day [Active]; Humalog U-100 Insulin 100 jl7 unit/mL Sub-Q crtg [Active]; Trulicity subcutaneous [Active]; - PMHx: 14:11 Diabetes - IDDM; DIALYSIS MWF; High Cholesterol; Hypertension; ibs; Renal Disease; St jl7 4; Tendonitis in Elbows; Anemia; - PSHx: 14:11 Adenoid excision; breast reduction; Cholecystectomy; hysterectomy; neck fusion; right jl7 foot, bone spur removed; Appendectomy; - Immunization history:: Client reports receiving the 2nd dose of the Covid vaccine. - Social history:: Smoking status: Patient denies any tobacco usage or history of. Screenin:53 Abuse screen: Denies threats or abuse. Denies injuries from another. Nutritional ld1 screening: No deficits noted. Tuberculosis screening: No symptoms or risk factors identified. Fall Risk No fall in past 12 months (0 pts). Assessment: 14:53 Reassessment: sEE TRIAGE ASSESSMENT. Reassessment: Patient appears in no apparent ld1 distress at this time. Patient and/or family updated on plan of care and expected duration. Pain level reassessed. Patient is alert, oriented x 3, equal unlabored respirations, skin warm/dry/pink. Pain: Complains of pain in face Pain does not radiate. Pain currently is 7 out of 10 on a pain scale. Quality of pain is described as throbbing. Neuro: Level of Consciousness is awake, alert, obeys commands, Oriented to person, place, time, situation. Cardiovascular: Capillary refill < 3 seconds Patient's skin is warm and dry. Respiratory: Airway is patent Respiratory effort is even, unlabored. 16:18 Reassessment: Patient appears in no apparent distress at this time. No changes from ld1 previously documented assessment. Patient and/or family updated on plan of care and expected duration. Pain level reassessed. Patient denies pain at this time. Patient states feeling better. Vital Signs: 14:10 BP 178 / 73; Pulse 66; Resp 17; Temp 98.2; Pulse Ox 100% ; Weight 102 kg; Height 5 ft. jl7 5 in. (165.10 cm); Pain 8/10; 14:53 BP 166 / 75; Pulse 71; Resp 18; Pulse Ox 100% on R/A; Pain 7/10; ld1 16:18 BP 159 / 77; Pulse 73; Resp 18; Pulse Ox 100% on R/A; Pain 0/10; ld1 14:10 Body Mass Index 37.42 (102.00 kg, 165.10 cm) 7 NIH Stroke Scale Scores: 14:15 NIHSS Score: 0 [facility] ED Course: 13:46 Patient arrived in ED. as 14:11 Triage completed. jl7 14:11 Arm band placed on right wrist. jl7 14:12 Negra Campbell [facility] jh[facility] 14:12 Melissa Leahy MD is Attending Physician. jh7 14:32 Leonor Mcgarry, JOCY is Primary Nurse. ld1 14:42 CT Head Brain wo Cont In Process Unspecified. EDMS 14:46 Labs ordered per protocol. Drawn by ED staff. 20g RIGHT AC USING ASEPTIC TECHNIQUE. ld1 14:53 Patient has correct armband on for positive identification. Placed in gown. Bed in low ld1 position. Call light in reach. Side rails up X2. Pulse ox on. NIBP on. Door closed. Noise minimized. 14:53 Inserted saline lock: 20 gauge in right antecubital area, using aseptic technique. ld1 Blood collected. 14:53 No provider procedures requiring assistance completed. ld1 15:45 Notified ED physician of a critical lab result(s). K 2.7. ld1 16:18 IV discontinued, intact, bleeding controlled, No redness/swelling at site. ld1 Administered Medications: 14:24 CANCELLED (Physician Discretion): cloNIDine 0.1 mg PO once jh7 14:53 Drug: Tylenol 1000 mg Route: PO; ld1 15:01 CANCELLED (Physician Discretion): fentaNYL (PF) 25 mcg IVP once 7 15:01 CANCELLED (Physician Discretion): Zofran (Ondansetron) 4 mg IVP once; over 2 minutes jh7 15:15 Drug: SOLU-Medrol (methylPrednisoLONE) 125 mg Route: IVP; Site: right antecubital; ld1 Medication: 14:53 VIS not applicable for this client. ld1 Outcome: 16:01 Discharge ordered by . jh7 16:18 Discharged to home ambulatory. ld1 16:18 Condition: stable 16:18 Discharge instructions given to patient, Instructed on discharge instructions, follow up and referral plans. Demonstrated understanding of instructions, follow-up care. 16:19 Patient left the ED. ld1 NIH Stroke Scale - NIH Stroke Score Date: 04/01/2022 Time: 14:15 Total Score = 0 1a. Level of Consciousness (LOC) - 0(Alert) 1b. Level of Consciousness (LOC) (Month \T\ Age) - 0(Both) 1c. LOC Commands (Open \T\ Closes Eyes/Retaining Room Cutter) - 0(Both) 2. Best Gaze (Lateral Gaze Paresis) - 0(Normal) 3. Visual Field Loss - 0(No visual loss) 4. Facial Palsy - 0(Normal) 5a. Left Arm: Motor (10-second hold) - 0(No drift) 5b. Right Arm: Motor (10-second hold) - 0(No drift) 6a. Left Leg: Motor (5-second hold - always test supine) - 0(No drift) 6b. Right Leg: Motor (5-second hold - always test supine) - 0(No drift) 7. Limb Ataxia (finger/nose \T\ heel/lamb - test with eyes open) - 0(Absent) 8. Sensory Loss (pinprick arms/legs/face) - 0(Normal) 9. Best Language: Aphasia (description/naming/reading) - 0(No aphasia) 10. Dysarthria (speech clarity - read or repeat words) - 0(Normal) 11. Extinction and Inattention (visual/tactile/auditory/spatial/personal) - 0(No abnormality) Initials: jh7 Signatures: Dispatcher [employer] Clara Mary Jahala, RN RN jl7 Leonor Mcgarry, JOCY RN ld1 Negra Campbell, PORTFOLIO MGR PORTFOLIO MGR 7
--- NOTE | 2022-04-01 16:02 | EDPHYS ---
Physician Documentation [facility] Name: Emily Barbour Age: 51 yrs Sex: Female : 1970 Arrival Date: 04/01/2022 Time: 13:46 Bed 10 Private MD: ED Physician Melissa Leahy HPI: 04/01 14:15 This 51 yrs old Female presents to ER via Ambulatory with complaints of High Blood jh7 Pressure, Headache. 14:15 Onset: The symptoms/episode began/occurred 3 week(s) ago. Associated signs and jh7 symptoms: Pertinent positives: headache, Pertinent negatives: chest pain, dizziness, dyspnea, lightheadedness, nausea, visual changes, vomiting, weakness. Severity of symptoms: At its worst the blood pressure was 210 mm Hg, at home. Patient reports headache that feels like a band around her head for the past 3 weeks with increasing blood pressure at home. Reports that it was 210/100 at home. Reports that she gets dialysis Tuesday, Tuesday, and Tuesday, and takes carvedilol 25 mg twice daily. No dizziness, syncope, chest pain, visual changes, or any other symptoms at this time.. 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 - Hysterectomy jl7 Historical: - Allergies: 14:11 Benadryl; jl7 14:11 metformin; jl7 14:11 Tradjenta; jl7 14:11 shrimp; jl7 - Home Meds: 14:11 carvedilol 25 mg oral tab 1 tab 2 times per day [Active]; Humalog U-100 Insulin 100 jl7 unit/mL Sub-Q crtg [Active]; Trulicity subcutaneous [Active]; - PMHx: 14:11 Diabetes - IDDM; DIALYSIS MWF; High Cholesterol; Hypertension; ibs; Renal Disease; St jl7 4; Tendonitis in Elbows; Anemia; - PSHx: 14:11 Adenoid excision; breast reduction; Cholecystectomy; hysterectomy; neck fusion; right jl7 foot, bone spur removed; Appendectomy; - Immunization history:: Client reports receiving the 2nd dose of the Covid vaccine. - Social history:: Smoking status: Patient denies any tobacco usage or history of. ROS: 14:15 Constitutional: Negative for fever, chills, and weight loss, Eyes: Negative for injury, jh7 pain, redness, and discharge, ENT: Negative for injury, pain, and discharge, Neck: Negative for injury, pain, and swelling, Cardiovascular: Negative for chest pain, palpitations, and edema, Respiratory: Negative for shortness of breath, cough, wheezing, and pleuritic chest pain, Back: Negative for injury and pain, MS/Extremity: Negative for injury and deformity, Skin: Negative for injury, rash, and discoloration. 14:15 Neuro: Positive for headache, Negative for altered mental status, dizziness, gait disturbance, loss of consciousness, speech changes, syncope, visual changes, weakness. 14:15 All other systems are negative. Exam: 14:15 Constitutional: This is a well developed, well nourished patient who is awake, alert, jh7 and in no acute distress. Head/Face: Normocephalic, atraumatic. Eyes: Pupils equal round and reactive to light, extra-ocular motions intact. Lids and lashes normal. Conjunctiva and sclera are non-icteric and not injected. Cornea within normal limits. Periorbital areas with no swelling, redness, or edema. ENT: Nares patent. No nasal discharge, no septal abnormalities noted. Tympanic membranes are normal and external auditory canals are clear. Oropharynx with no redness, swelling, or masses, exudates, or evidence of obstruction, uvula midline. Mucous membranes moist. Neck: Trachea midline, no thyromegaly or masses palpated, and no cervical lymphadenopathy. Supple, full range of motion without nuchal rigidity, or vertebral point tenderness. No Meningismus. Cardiovascular: Regular rate and rhythm with a normal S1 and S2. No gallops, murmurs, or rubs. Normal PMI, no JVD. No pulse deficits. Respiratory: Lungs have equal breath sounds bilaterally, clear to auscultation and percussion. No rales, rhonchi or wheezes noted. No increased work of breathing, no retractions or nasal flaring. Back: No spinal tenderness. No costovertebral tenderness. Full range of motion. Skin: Warm, dry with normal turgor. Normal color with no rashes, no lesions, and no evidence of cellulitis. MS/ Extremity: Pulses equal, no cyanosis. Neurovascular intact. Full, normal range of motion. 14:15 Neuro: Orientation: is normal, Mentation: is normal, Memory: is normal, Cranial nerves: grossly normal, Cerebellar function: is grossly normal, Motor: is normal, Sensation: is normal, Gait: is steady, at a normal pace. Vital Signs: 14:10 BP 178 / 73; Pulse 66; Resp 17; Temp 98.2; Pulse Ox 100% ; Weight 102 kg; Height 5 ft. [facility] 5 in. (165.10 cm); Pain 8/10; 14:53 BP 166 / 75; Pulse 71; Resp 18; Pulse Ox 100% on R/A; Pain 7/10; ld1 16:18 BP 159 / 77; Pulse 73; Resp 18; Pulse Ox 100% on R/A; Pain 0/10; ld1 14:10 Body Mass Index 37.42 (102.00 kg, 165.10 cm) [facility] NIH Stroke Scale Scores: 14:15 NIHSS Score: 0 [facility] MDM: 14:13 Patient medically screened. [facility] 16:00 Differential diagnosis: hypertensive crisis, Malignant HTN, CVA, intracerebral [facility] hemorrhage. Data reviewed: vital signs, nurses notes, lab test result(s), radiologic studies, CT scan, plain films. Data interpreted: Pulse oximetry: is 100 %. Interpretation: normal. Counseling: I had a detailed discussion with the patient and/or guardian regarding: the historical points, exam findings, and any diagnostic results supporting the discharge/admit diagnosis, to return to the emergency department if symptoms worsen or persist or if there are any questions or concerns that arise at home. 04/01 14:23 Order name: Basic Metabolic Panel; Complete Time: 15:57 [facility] 04/01 14:23 Order name: CBC with Diff; Complete Time: 15:02 [facility] 04/01 14:23 Order name: CT Head Brain wo Cont; Complete Time: 15:02 [facility] 04/01 14:23 Order name: EKG; Complete Time: 14:24 [facility] 04/01 14:23 Order name: Cardiac monitoring; Complete Time: 14:33 [facility] 04/01 14:23 Order name: EKG - Nurse/Tech; Complete Time: 14:46 [facility] 04/01 14:23 Order name: IV Saline Lock; Complete Time: 14:46 [facility] 04/01 14:23 Order name: Labs collected and sent; Complete Time: 14:53 [facility] Administered Medications: 14:24 CANCELLED (Physician Discretion): cloNIDine 0.1 mg PO once [facility] 14:53 Drug: Tylenol 1000 mg Route: PO; ld1 15:01 CANCELLED (Physician Discretion): fentaNYL (PF) 25 mcg IVP once [facility] 15:01 CANCELLED (Physician Discretion): Zofran (Ondansetron) 4 mg IVP once; over 2 minutes [facility] 15:15 Drug: SOLU-Medrol (methylPrednisoLONE) 125 mg Route: IVP; Site: right antecubital; ld1 Disposition Summary: 04/01/22 16:01 Discharge Ordered Location: Home [facility] Problem: chronic [facility] Symptoms: have improved [facility] Condition: Stable [facility] Diagnosis - Tension-type headache [facility] Followup: [facility] - With: Private Physician - When: 2 - 3 days - Reason: Recheck today's complaints Discharge Instructions: - Discharge Summary Sheet [facility] - Tension Headache, Adult [facility] - Hypertension, Adult [facility] Forms: - Medication Reconciliation Form [facility] - Thank You Letter [facility] NIH Stroke Scale - NIH Stroke Score Date: 04/01/2022 Time: 14:15 Total Score = 0 1a. Level of Consciousness (LOC) - 0(Alert) 1b. Level of Consciousness (LOC) (Month \T\ Age) - 0(Both) 1c. LOC Commands (Open \T\ Closes Eyes/Control Clerk Head) - 0(Both) 2. Best Gaze (Lateral Gaze Paresis) - 0(Normal) 3. Visual Field Loss - 0(No visual loss) 4. Facial Palsy - 0(Normal) 5a. Left Arm: Motor (10-second hold) - 0(No drift) 5b. Right Arm: Motor (10-second hold) - 0(No drift) 6a. Left Leg: Motor (5-second hold - always test supine) - 0(No drift) 6b. Right Leg: Motor (5-second hold - always test supine) - 0(No drift) 7. Limb Ataxia (finger/nose \T\ heel/lamb - test with eyes open) - 0(Absent) 8. Sensory Loss (pinprick arms/legs/face) - 0(Normal) 9. Best Language: Aphasia (description/naming/reading) - 0(No aphasia) 10. Dysarthria (speech clarity - read or repeat words) - 0(Normal) 11. Extinction and Inattention (visual/tactile/auditory/spatial/personal) - 0(No abnormality) Initials: [facility] Signatures: Dispatcher [employer] Alayna Rogel RN RN jl7 Leonor Mcgarry RN RN ld1 Negra Campbell, CRIME LAB ANALYST CRIME LAB ANALYST [facility] Corrections: (The following items were deleted from the chart) 14:24 14:23 cloNIDine 0.1 mg PO once ordered. [place] [id number] 15:01 14:58 fentaNYL (PF) 25 mcg IVP once ordered. [place] [id number] 15:01 14:58 Zofran (Ondansetron) 4 mg IVP once; over 2 minutes ordered. [place] [id number]
[2022-04-01 16:49] VITALS: TEMP 98.2; O2SAT 100
[2022-04-01 16:52] VITALS: BP 159/77
--- NOTE | 2022-04-02 12:52 | EKG ---
Test Date: 2022-04-01 Test Time: 14:53:28 Pulverizer: PRINCESS MEASUREMENT RESULTS: Intervals: Rate: 64 LA: 174 QRSD: 128 QT: 498 QTc: 513 [place]: P: 69 LA: 174 QRS: -79 T: 75 INTERPRETIVE STATEMENTS: Normal sinus rhythm Left axis deviation Right bundle branch block Inferior infarct, age undetermined Anteroseptal infarct, age undetermined Abnormal ECG Compared to ECG 04/08/2021 18:52:24 Left-axis deviation now present Myocardial infarct finding now present Left anterior fascicular block no longer present Bifascicular block no longer present Electronically Signed On 04-02-22 12:51:45 SUPERVISOR TELEPHONE ANSWERING SERVICE by Jovi Barrett
== END 2022-04-01 16:19 | disposition home or self-care (01) ==
LOC: ER 13:42
DX: G44.209 Tension-type headache, unspecified, not intractable (principal); E11.22 Type 2 diabetes mellitus with diabetic chronic kidney disease; N18.6 End stage renal disease; Z99.2 Dependence on renal dialysis; Z88.8 Allergy status to other drugs, medicaments and biological substances; Z91.013 Allergy to seafood
CPT/HCPCS: 93005; 85025; 80048; 36415; 70450; 96374; 99284; J2930

== ENCOUNTER 2022-09-15 01:19 | Emergency (ER) | payer OTHER ==
--- OUTSIDE RECORDS SUMMARY | 2022-09-15 01:36 | XMS REPORT | Continuity of Care Document ---
:1970 Author Organization [facility] t Address [address] [place] [address] Care Team Providers Name Role Phone Pcp, Patient Does Not Have A Primary Care Physician [id number] Jesus White MD Attending Clinician JESUS WHITE Attending Clinician Unavailable , [employer] [facility] Attending Clinician Unavailable Yoanna Rhodes MD Attending Clinician YOANNA RHODES Attending Clinician Unavailable Doctor Unassigned, [place] Attending Clinician Unavailable Aurelio Vidal Attending Clinician [...] Policy Number Effective Date Expiration Date S ourninoska Problems Condition Condition Condition Status Onset Resolution Last Treating Co mments Source Name Details Category Date Date Treatment Clinician Date End-stage End-stage Disease Active Overview: Methodi renal renal [address] disease disease 00:00: g of this Hospi ta 00 note l might be different from the original. Added automatic ally from request for surgery [id number] History of History of Disease Active 2020-0 M ethodi cholecyste cholecyste 16 st ctomy ctomy 00:00: Hospita 00 l History of History of Disease Active 2020-0 M ethodi appendecto appendecto 9[address] st my my 00:00: Hospita 00 l History of History of Disease Active 2020-0 M ethodi hysterecto hysterecto 16 my my 00:00: Hospita 00 l History of History of Disease Active 2020-0 M ethodi tubal tubal 16 st ligation ligation 00:00: Hospit a 00 l History of History of Disease Active 2020-0 M ethodi adenoidect adenoidect 16 tj tj 00:00: Hospita 00 l History of History of Disease Active 2020-0 M ethodi fusion of fusion of 16 st cervical cervical 00:00: Hospit a spine spine 00 l Hypothyroi Hypothyroi Disease Active 2019-0 M ethodi dism due dism due 8 [...] artery 00:00: Hospita disease), disease), 00 [place] coronary coronary artery artery Chronic Chronic Disease [...] [facility] ly ly 10-23 [facility] 00:[facility]: [facility] 00 Center Obesity, Obesity, Disease Active [facility] Class II, Class II, 10-17 [facility] BMI BMI 00:00: Medical 35-39.9 35-39.9 00 Center Stage 4 Stage [address] [facility] chronic chronic nce 10-16 [facility] kidney kidney 00:00: Medical disease disease 00 Center Controlled Controlled Disease Recurre [facility] 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 00:00: Medica l mellitus mellitus 00 Center with stage with 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, disease, with with long-term long-term current current use of use of insulin insulin SHREE SHREE Disease Recurre [facility] (obstructi (obstructi nce 10-16 [facility] kes ve sleep ve sleep 00:00: Medica l apnea) apnea) 00 Center Morbid Morbid Disease Recurre [facility] obesity obesity nce 10-16 [facility] 00:00: Medical 00 [place] Elevated Elevated Disease Active [facility] liver liver 10-16 [facility] enzymes enzymes 00:00: Medical 00 [place] Acute Acute Disease Active [facility] respirator respirator 10-16 [facility] y distress y distress 00:00: Me dical 00 [place] Acute Acute Disease Active [facility] congestive congestive 10-16 [facility] heart heart 00:00: Medical failure failure 00 Center Vitamin D Vitamin D Disease Active 2013-04 Uni vers deficiency deficiency 2-15 it y of 00:00: [place] [address] Medical Branch HTN HTN Disease Active 2013-04 Univers (hypertens (hypertens 2-10 it y of ion) ion) 00:00: [place] [address] Medical Branch 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 2-10 it y of 00:00: [place] [address] Medical Branch Screening Screening Disease Active 2013-04 Uni vers for for 2-10 ity of endocrine, endocrine, [place] nutritiona nutritiona 00 Wi dical l, l, Branch metabolic metabolic and and immunity immunity disorder disorder Type II or Type II or Disease Active 2013-04 U nivers unspecifie unspecifie 2-10 it y of d type d type 00:00: [place] diabetes diabetes 00 Medica l mellitus mellitus Branch with with neurologic neurologic al al manifestat manifestat ions, ions, uncontroll uncontroll ed(250.62) ed(250.62) Neuropathy Neuropathy Disease Active 2013-04 U nivers 2-10 ity of 00:00: [place] 00 Medical Branch Fatigue Fatigue Disease Active 2013-04 Univers 2-10 ity of 00:00: [place] [facility] Weight Weight Disease Active 2013-04 Univers gain gain 2-10 ity of 00:00: [place] 00 Medical Branch Hypertrigl Hypertrigl Disease Active 2013-04 U nivers yceridemia yceridemia 2-10 it y of 00:00: [place] [facility] Normocytic Normocytic Disease Active 2013-04 U nivers anemia anemia 2-10 ity of 00:00: [place] 00 Medical Branch Elevated Elevated Disease Active 2013-04 Unive rs serum serum 2-10 ity of creatinine creatinine [place] Hyperlipid Hyperlipid Disease Active 2013-04 [...] Luke s adverse Vomiting 00:00: Medical reaction Center s Diphenhy Propensi Active Rash Method i d-Pe-Melchor ty to 10-10 st taminoph adverse 00:00: Hospita en reaction 00 l s to drug Metformi Propensi Active Other (See Caused Me thodi n ty to Comments) 10-[address] adverse 00:00: failure Hospita reaction 00 l s to drug Linaglip Propensi Active GI Loss of Metho di tin ty to Intolerance 10-[address] adverse 00:00: Hospita reaction 00 l s to drug BENADRYL DRUG Active Rash 2013-04 Univers DECONGES 2-10 ity of TANT 00:00: [place] 00 Medical Branch PENICILL Drug Active Rash 2013-04 Univers INS Class 2-10 ity of 00:00: [place] 00 Medical Branch Penicill Propensi Active Rash 2013-04 When Univer s ins ty to 2-10 taking ity of adverse 00:00: together [place] reaction with Medical s Benadryl Branch Benadryl Propensi Active Rash 2013-04 When [...] Date Source Natural brother Congenital heart [facility] Natural brother Coronary artery [facility] disease Natural father Stroke [facility] Natural father Cancer [facility] Natural father Stroke [facility] Natural mother Diabetes [facility] Natural mother Diabetes [facility] Natural mother Coronary artery [facility] disease Natural sister Asthma [facility] Natural sister Thyroid disease [facility] Social History Social Habit Start Date Stop Date Quantity Comments Source Exposure to Yes University of SARS-CoV-2 (event) [place] [facility] [employer] History of tobacco Current smoker Un iversity of use [place] [facility] History SDOH [facility] Alcohol Comment Medical C enter History SDOH [facility] Alcohol Std Drinks Medica Center History SDOH [facility] Alcohol Binge Medical [facility] ter Alcohol intake 2020-07-04 2020-07-[address] [facility] [address] [facility] 00:00:00 00:00:00 non-drinker of Medical Ce nter alcohol (finding) Tobacco use and 2020-01-04 2020-01-04 Smokeless [facility] exposure 00:00:00 00:00:00 tobacco non-user Hospital History SDOH 2018-10-16 2018-10-16 1 [facility] Alcohol Frequency 00:00:00 00:00:00 [facility] Center Cigarettes smoked 2018-10-16 2018-10-16 [facility] current (pack per 00:00:00 00:00:00 Medical Center day) - Reported Cigarette 2018-10-16 2018-10-16 [facility] pack-years 00:00:00 00:00:00 [facility] Center Sex Ass[birth year] At [birth year] LUKE Rings 00:00:00 00:00:00 Medical Center Smoking Status Start Date Stop Date Source Ex-smoker [facility] Medications Ordered Filled Start Stop Current [...] capsule 36 l insulin 2019-04 Yes 30U [id number] Inject 30 Methodi lispro 1-[id number] (HumaLOG) 10:26: 3D under the [...] capsule 36 l insulin 2019-04 Yes 30U [id number] Inject 30 Methodi lispro 1-[id number] (HumaLOG) 10:26: 3D under the [...] MG 00:00: Hospita tablet 00 l carvediloL 0 Yes TWICE Method i (COREG) 9-[address] 12.5 MG 00:00: Hospita tablet 00 l amitriptyli Yes 50mg QD Take [address] ne (ELAVIL) 7-06 by mouth Luke s 50 MG 12:33: nightly. Medical tablet 58 Center DULoxetine Yes 20mg QD Take [address] (CYMBALTA) 7-06 by mouth [facility]ukes 20 MG 12:33: daily. Medical capsule 58 Center magnesium 2019- Yes 500mg Q.5D Take [address] gluconate 7-06 mg by [facility]ukes (MAGONATE) 12:33: mouth 2 Medi donna 27.5 mg 58 (two) Center magne- sium times (500 mg) daily. tablet ferrous Yes 325mg Take 325 [facility] sulfate 325 7-06 mg by [facility]ukes (65 FE) MG 12:33: mouth Medica l tablet 58 daily with Center breakfast. cholecalcif 0 Yes Take by [facility] veronica, 7-06 mouth. [facility] vitamin D3, 12:33: Medica l 2,000 unit 58 Center Cap cyanocobala 2019-0 Yes QD Take by [facility] min 7-06 mouth [facility]ukes (VITAMIN 12:33: daily. Medical B-12) 100 58 Center MCG tablet amitriptyli 2019-0 Yes 50mg QD Take [address] ne (ELAVIL) 7-06 by mouth Luke s 50 MG 12:33: nightly. Medical tablet 58 Center DULoxetine 2019-0 Yes 20mg QD Take [...] B-12) 100 58 Center MCG tablet amitriptyli 2019-0 Yes 50mg QD Take [address] ne (ELAVIL) 7-06 by mouth Luke s 50 MG 12:33: nightly. Medical tablet 58 Center DULoxetine 2019-0 Yes 20mg QD Take [...] 58 Center MCG tablet ergocalcife 2013-04 Yes [id number] Take 1 Cap Univers rol, 2-15 by mouth ity of vitamin d2, 00:00: weekly. Thien as (VITAMIN 00 Medical D2) 50,000 Branch unit capsule ergocalcife 2013-04 Yes [id number] Take 1 Cap Univers rol, 2-15 by mouth ity of vitamin d2, 00:00: weekly. Thien as (VITAMIN 00 Medical D2) 50,000 Branch unit capsule ergocalcife 2013-04 Yes [id number] Take 1 Cap Univers rol, 2-15 by mouth ity of vitamin d2, 00:00: weekly. Thien as (VITAMIN 00 Medical D2) 50,000 Branch unit capsule ergocalcife 2013-04 Yes [id number] Take 1 Cap Univers rol, 2-15 by mouth ity of vitamin d2, 00:00: weekly. Thien as (VITAMIN 00 Medical D2) 50,000 Branch unit capsule ergocalcife 2013-04 Yes [id number] Take 1 Cap Univers rol, 2-15 by mouth ity of vitamin d2, 00:00: weekly. Thien as (VITAMIN 00 Medical D2) 50,000 Branch unit capsule FERROUS 2013-04 Yes Take by Univers SULFATE, 2-10 mouth. ity of DRIED 12:29: [place] (IRON, 37 Medical DRIED, Branch ORAL) OMEPRAZOLE 2013-04 Yes Take by [facility] ers MAGNESIUM 2-10 mouth. ity of (PRILOSEC 12:29: [place] OTC ORAL) [address] [place] [address] MULTIVITS,C 2013-04 Yes Take by Uni vers A,MINERALS/ 2-10 mouth. ity of IRON/FA 12:29: [place] (ONE-A-DAY 37 [facility] FORMULA ORAL) FERROUS 2013-04 Yes Take by Univers SULFATE, 2-10 mouth. ity of DRIED 12:29: [place] (IRON, 37 Medical DRIED, Branch ORAL) OMEPRAZOLE 2013-04 Yes Take by [facility] ers MAGNESIUM 2-10 mouth. ity of (PRILOSEC 12:29: [place] OTC ORAL) [address] [place] [address] MULTIVITS,C 2013-04 Yes Take by Uni vers A,MINERALS/ 2-10 mouth. ity of IRON/FA 12:29: [place] (ONE-A-DAY 37 Medical WOMENS Branch FORMULA ORAL) FERROUS 2013-04 Yes Take by Univers SULFATE, 2-10 mouth. ity of DRIED 12:29: [place] (IRON, 37 Medical DRIED, Branch ORAL) OMEPRAZOLE 2013-04 Yes Take by [facility] ers MAGNESIUM 2-10 mouth. ity of (PRILOSEC 12:29: [place] OTC ORAL) 37 [facility] Branch MULTIVITS,C 2013-04 Yes Take by Uni vers A,MINERALS/ 2-10 mouth. ity of IRON/FA 12:29: [place] (ONE-A-DAY 37 Medical WOMEN Branch FORMULA ORAL) FERROUS 2013-04 Yes Take by Univers SULFATE, 2-10 mouth. ity of DRIED 12:29: [place] (IRON, 37 Medical DRIED, Branch ORAL) OMEPRAZOLE 2013-04 Yes Take by [facility] ers MAGNESIUM 2-10 mouth. ity of (PRILOSEC 12:29: [place] OTC ORAL) [address] [place] [address] Branch MULTIVITS,C 2013-04 Yes Take by Uni vers A,MINERALS/ 2-10 mouth. ity of IRON/FA 12:29: [place] (ONE-A-DAY [address] [facility] FORMULA ORAL) FERROUS 2013-04 Yes Take by Univers SULFATE, 2-10 mouth. ity of DRIED 12:29: [place] (IRON, 37 Medical DRIED, Branch ORAL) OMEPRAZOLE 2013-04 Yes Take by [facility] ers MAGNESIUM 2-10 mouth. ity of (PRILOSEC 12:29: [place] OTC ORAL) [address] [place] [address] MULTIVITS,C 2013-04 Yes Take by Uni vers A,MINERALS/ 2-10 mouth. ity of IRON/FA 12:29: [place] (ONE-A-DAY 37 [facility] FORMULA ORAL) lisinopril 2013-04 Yes 20mg Take 20 mg [...] mouth. ity of 160 mg Tab 12:21: [place] [address] Medical Branch amitriptyli 2013-04 Yes 50mg Take [...] mouth. ity of 160 mg Tab 12:21: [place] [address] Medical Branch amitriptyli 2013-04 Yes 50mg Take [...] mouth. ity of 160 mg Tab 12:21: [place] [address] Medical Branch amitriptyli 2013-04 Yes 50mg Take [...] mg tablet 19 times Medical daily. Branch metFORMIN 2013-04 Yes 1000mg Take 1 [...] before breakfast and dinner. atorvastati 2013-04 Yes [id number] 40mg Take 1 Tab Univers n (LIPITOR) [...] before breakfast and dinner. atorvastati 2013-04 Yes [id number] 40mg Take 1 Tab Univers n (LIPITOR) [...] before breakfast and dinner. atorvastati 2013-04 Yes [id number] 40mg Take 1 Tab Univers n (LIPITOR) [...] before breakfast and dinner. atorvastati 2013-04 Yes [id number] 40mg Take 1 Tab Univers n (LIPITOR) [...] before breakfast and dinner. atorvastati 2013-04 Yes [id number] 40mg Take 1 Tab Univers n (LIPITOR) 2-10 by mouth ity of 40 mg 00:00: at [place] tablet 00 bedtime. Medical Branch Vital Signs Vital Name Observation Time Observation Value Comments Source Body height 2020-07-04 13:45:00 165.1 cm [facility] Body weight 2020-07-04 13:45:00 104.327 kg [facility] BMI 2020-07-04 13:45:00 38.27 kg/m2 [facility] Procedures Procedure Date / Time Performed Performing Clinician [facility] e ASSIGNMENT OF BENEFITS 2021-04-08 14:49:14 Doctor Unassigned, No [facility] Plan of Care Planned Activity Planned Date Details Comments Source Future Scheduled 2022-02-20 HEPATITIS B VACCINES [facility] Test 10:12:44 (1 of 3 - 3-dose series) [code = HEPATITIS B VACCINES (1 of 3 - 3-dose series)] Future Scheduled 2022-02-20 COVID-19 VACCINE (#1) [facility] Test 10:12:44 [code = COVID-19 VACCINE (#1)] Future Scheduled 2022-02-20 Pneumococcal Vaccine: [facility] Test 10:12:44 Pediatrics (0 to 5 Years) and At-Risk Patients (6 to 64 Years) (1 - PCV) [code = Pneumococcal Vaccine: Pediatrics (0 to 5 Years) and At-Risk Patients (6 to 64 Years) (1 - PCV)] Future Scheduled 2022-02-20 DIABETES: RETINAL EYE [facility] Test 10:12:44 EXAM [code = DIABETES: RETINAL EYE EXAM] Future Scheduled 2022-02-20 DIABETIC FOOT EXAM [facility] Test 10:12:44 [code = DIABETIC FOOT EXAM] Future Scheduled 2022-02-20 Hepatitis C screening [facility] Test 10:12:44 (procedure) [code = 496999224] Future Scheduled 2022-02-20 SHINGLES VACCINES (1 [facility] Test 10:12:44 of 2) [code = SHINGLES VACCINES (1 of 2)] Future Scheduled 2022-02-20 Screening for [facility] Test 10:12:44 malignant neoplasm of cervix (procedure) [code = 017312160] Future Scheduled 2022-02-20 BREAST CANCER [facility] Test 10:12:44 SCREENING [code = BREAST CANCER SCREENING] Future Scheduled 2022-02-20 COLONOSCOPY SCREENING [facility] Test 10:12:44 [code = COLONOSCOPY SCREENING] Future Scheduled 2022-02-20 INFLUENZA VACCINE [facility] Test 10:12:44 [code = INFLUENZA VACCINE] Future Scheduled 2021-10-[address] Test 00:00:00 (procedure) [code = Medical Center 78825350] Future Scheduled 2021-04-08 COVID-19 VACCINE (1) [facility] Test 13:44:10 [code = COVID-19 VACCINE (1)] Future Scheduled 2021-04-08 DIABETES: RETINAL EYE [facility] Test 13:44:10 EXAM [code = DIABETES: RETINAL EYE EXAM] Future Scheduled 2021-04-08 DIABETIC FOOT EXAM [facility] Test 13:44:10 [code = DIABETIC FOOT EXAM] Future Scheduled 2021-04-08 Hepatitis C screening [facility] Test 13:44:10 (procedure) [code = 944527498] Future Scheduled 2021-04-08 [facility] Test 13:44:10 malignant neoplasm of cervix (procedure) [code = 921208351] Future Scheduled 2021-04-08 BREAST CANCER [facility] Test 13:44:10 SCREENING [code = BREAST CANCER SCREENING] Future Scheduled 2021-04-08 COLONOSCOPY SCREENING [facility] Test 13:44:10 [code = COLONOSCOPY SCREENING] Future Scheduled 2021-04-08 SHINGLES VACCINES (#1) [facility] Test 13:44:10 [code = SHINGLES VACCINES [...] A1c [facility] Test 00:00:00 [facility] (procedure) [code = 81067974] Future Scheduled 1991-10-[address] [facility] Test 00:00:00 [facility] cervix (procedure) [code = 130307660] Future Scheduled 1989 DTAP/TDAP/TD VACCINES CH I [...] 00:00:00 examination Medical Center (regime/therapy) [code = 340940123] Future Scheduled 1980 Urine screening for [facility] Test 00:00:00 protein (procedure) Medical Center [code = 967944537] Future Scheduled [address] [facility] Test 00:00:00 0-64 YRS (1 of 2 - Medical C enter PPSV23) [code = PNEUMOCOCCAL VACCINE 0-64 YRS (1 of 2 - PPSV23)] Future Scheduled [address] [facility] Test 00:00:00 [facility] breast (procedure) [code = 547691209] Future Scheduled [address] [facility] Test 00:00:00 [facility] colon (procedure) [code = 721964478] Encounters Start End Encounter Admission Attending Care Care Encounter Source Date/Time Date/Time Type Type Clinicians Facility Department ID 2022-05-13 2022-05-13 [facility] Christopher LIVIA [id number] Univers 17:02:00 23:59:00 Encounter Jesus BRADSHAW [id number] ity [facility] [id number] Thien as [id number] [address] 2022-05-13 2022-05-13 Outpatient [facility] [id number] Univers 00:00:00 23:59:00 JESUS mcginnis o [facility] 2022-05-13 2022-05-13 Telephone [facility] [id number] Univers 00:00:00 00:00:00 Lee Kendall MULTISPEC [id number] ity of IALTY 4.2.7.2.686 [facility] [place] [id number] [facility] [address] [facility] 2022-05-13 2022-05-13 Letter [facility] [id number] Univers 00:00:00 00:00:00 (Out) Lee Kendall MULTISPEC [id number] ity of IALTY 4.2.7.2.686 [facility] [place] [id number] [facility] [address] [facility] 2021-04-08 2021-04-08 Manager User Experience 1, Adc Lab [facility] [id number] Univers 08:45:00 09:00:00 Visit Yoanna Rhodes [id number] ity of [place] 4.2.7.2.686 [facility] [id number] [facility] 353 Branch 2021-04-08 2021-04-08 Outpatient R MEAGAN [facility] [id number] Univers 08:45:00 08:45:00 YOANNA itstanley [facility] 2021-04-08 2021-04-08 Orders Doctor BHAKTA [id number] Univers 00:00:00 00:00:00 Only Unassigned, AUGUSTINE 350.1.13.10 ity of [place] [facility] 4.2.7.2.686 [facility] [id number] [place] [address] Branch 2020-07-04 2020-07-[address] [facility] [facility] [id number] 00:00:00 00:00:00 ion [facility] 2020-07-04 2020-07-[address] YoungAurelio [id number] 00:00:00 00:00:00 [facility] 2020-07-04 2020-07-04 Darren Vidal [facility] [id number] 00:00:00 00:00:00 [facility] 2020-07-04 2020-07-04 Abstract Vidal, [facility] [id number] 00:00:00 00:00:00 [facility] 2020-06-17 2020-06-17 Documentmarialuisa Vidal [facility] [id number] 00:00:00 00:00:00 [facility] 2020-06-17 2020-06-17 Abstract Vidal, [facility] [id number] 00:00:00 00:00:00 [facility] 2020-06-11 2020-06-11 Documentmarialuisa Vidal [facility] [id number] 00:00:00 00:00:00 [facility] 2020-06-11 2020-06-11 Documentmarialuisa Vidal [facility] [id number] 00:00:00 00:00:00 [facility] 2020-06-11 2020-06-11 Documentmarialuisa Vidal [facility] [id number] 00:00:00 00:00:00 [facility] 2020-05-29 2020-05-29 Abstract Young [facility] [id number] 00:00:00 00:00:00 [facility] 2020-05-29 2020-05-29 Documentmarialuisa Vidal [facility] [id number] 00:00:00 00:00:00 [facility] 2020-05-29 2020-05-29 Documentmarialuisa Vidal [facility] [id number] 00:00:00 00:00:00 [facility] 2020-05-29 2020-05-29 Telephone Young [facility] [id number] 00:00:00 00:00:00 [facility] 2020-05-29 2020-05-29 Documentat Young [facility] [id number] 00:00:00 00:00:00 gilbert [facility] 2020-05-26 2020-05-26 Surendra Irwin [facility] [id number] 00:00:00 00:00:00 [facility] 2020-03-11 2020-03-11 Outpatient BIRD, MIRIAN [facility] [id number] [place] 00:00:00 00:00:[address] 2020-02-19 2020-02-19 Outpatient BIRD, MIRIAN [facility] [id number] [place] 00:00:00 00:00:[address] 2020-02-05 2020-02-05 Outpatient [facility] [id number] [place] 00:00:00 00:00:[address] 2020-02-05 2020-02-05 Outpatient BIRD, MIRIAN [facility] [id number] [place] 00:00:00 00:00:[address] 2020-01-08 2020-01-08 Outpatient BIRD, MIRIAN [facility] [id number] [place] 00:00:00 00:00:[address] 2020-01-04 2020-01-04 Outpatient BIRD, MIRIAN [facility] [id number] [place] 00:00:00 00:00:[address] 2020-01-04 2020-01-04 Outpatient WOJCIECHOWS [facility] [id number] [place] 00:00:00 00:00:00 KI, 146 Method i SANJAY 2020-01-02 2020-01-02 Outpatient [facility] [id number] [place] 00:00:00 00:00:[address] 2020-01-02 2020-01-02 Outpatient BIRD MIRIAN [facility] [id number] [place] 00:00:00 00:00:[address] 2018 2018 Outpatient CHARLES JOLLY [facility] [id number] [place] 04:57:00 08:15:00 [facility] Results Test Description Test Time Test Comments Results Result Comments Source SARS-CoV-2 (COVID-19) RNA [Presence] in Respiratory sp ecimen by 2020-01-05 04:24:43 JASON with probe detection Test Item Value Reference Range Interpretation Comme nts SARS-CoV-2 (COVID-19) RNA [Presence] in Respiratory Not detected No t-Detected specimen by JASON with probe detection (test code = 29044-4) [facility] [id number] 14:30:00Bone Marrow Pathology Report Case: [id number] Authorizing Provider: Tiff Colmenares MD Collected: 10/20/2018 1030 Ordering Location: [address] Received: 10/20/2018 1151 Service Pathologist: Damián Mckeon MD Specimens: A) - Iliac Crest, Left B) - C) - Karyotype is reportedto be 46,XX[20].Mutational studies for calreticulin, JAK2, and [...] CIRCULATING BLASTS. Signing Pathologist Direct Phone Line: [phone] signed by Damián Mckeon MD on 10/24/2018 at 4:50 PMThere is no morphologic or immunophenotypic evidence of lymphoma or acute leukemia.This patient has a reported clinical history of anemia and hepatosplenomegaly as per the electronic medical records in [facility]. The morphologic finding of the megakaryocytes is nonspecific and could be reactive however they raise concern for the presence of an evolving myeloid neoplasm. Molecular and cytogenetic studies are currently pending, with results to be issued in an addendum report. 43053; 63697; 57116 x 2; 20204; 36556, 54302, [id number] Bone marrow The case is received in three parts all labeled with the patient's name, Jose Barbour, date of 1970, and accession number, [id number], which corresponds to the accompanying requisition page [...] with the patient's name, date of and a ccession number. RP/ew BONE MARROW ASPIRATE:QUALITY:Aspirate- AdequateTouch imprint- AdequateMARROW DIFFERENTIAL COUNT: Number of cells counted: 3001% Blasts 1% Promyelocytes 23% Myelocytes/Metamyelocytes 29% Bands/Segmented granulocytes 2% Eosinophils and precursors 0% Basophils and precursors 38% Dao throid precursors 4% Lymphocytes 0% Monocytes2% Plasma cellsMyeloid: Erythroid Ratio: 1.5Blasts: NotincreasedErythropoiesis: Mild megaloblastoid changes.Myelopoiesis: Mild left shiftMegakaryocytes: Increased, [...] the clot section by the Perls iron specialstain. PERIPHERAL BLOOD:Red cells: Mild anisopoikilocytosis with polychromasia White cells: Mild left shift. No circulating blastsPlatelets: UnremarkableThe interpretation of this case included the useof immunohistochemistry or special stains.BLOCK B1- PERLS IRONBLOCK C1- CD20, CD3, CD34, KAPPA, LAMBDAControl Slides Examined: In- house known positive controls were evaluated along with the test tissue. These control slides run alongside of the patients sample show appropriate staining. Internal positive and negative controls when available are evaluated Immunohistochemistry technical testing was performed at [facility]ology [facility] where it was developed and its performance characteristics were determined. It has not been cleared or approved by the U.S. Food and DrugAdministration. The FDA has determined that such clearance or approval is not necessary. The test isused for clinical purposes. It should not be regarded as investigational or for research. This laboratory is certified under the Clinical Laboratory Improvement Amendments of 1988 (CLIA-88) as qualified to perform high complexity clinical laboratory testing.FLOW CYTOMETRY [id number] 14:30:00 Test Item Value Reference Range Interpretation Comments FLOW CYTOMETRY RESULT See Separate Report POINTER (OPAL) (test code = 2758) FLOW CYTOMETRY AP CASE # [id number] (OPAL) (test code = 2759) FLOW [id number] 09:46:00Flow Cytometry Report Case: [id number] Authorizing Provider: Tiff Colmenares MD Collected: 10/20/2018 1151 Ordering Location: [address] Received: 10/20/2018 1336 Service Pathologist: Damián Mckeon MD Specimen: Other BONE MARROW, FLOW CYTOMETRY:NO MONOCLONAL B CELL POPULATION.NO ABNORMAL T CELL POPULATION.NO INCREASED BLAST POPULATION.CORRELATION WITH MORPHOLOGIC FINDINGS RE QUIRED. 94121PvqufbWatp marrow CD8, surface-[place], CD56, surface-Lambda, CD5, CD19, CD10, CD3, CD20, CD4, CD45, CD14, CD13, CD33, CD117, CD34, cKappa, cLambda, CD38, HD476Dvzxknwl Viability: 97.2% Blasts: The dim CD45+ CD34+ blasts comprise 1.5% of total cells. The majority of these cells express CD13 and CD33 (myeloblasts). Lymphocytes: Bright CD45+ lymphocytes comprise 6.8% of total cells. T cells show a CD4:CD8 ratio of 0.6.B cells are polytypic with a kappa:lambda ratio of 1.7. Myeloid/monocytic populations: As identifiedby CD45 and light scatter characteristics, granulocytes comprise the majority of cells analyzed, andmonocytes comprise 3.4% of total cells. Plasma cells: Less than 1% CD138 positive plasma cells are noted with polytypic cytoplasmic light chain expression.The remaining events analyzed represent nonviable cells, non- hematolymphoid cells, and/or debris. These tests were developed and their performance characteristics determined by [facility]. They have not been cleared or [...] Test performed by IFA method.ANGELES TITER AND [id number] 11:18:00 Test Item Value Reference Range Interpretation Comments ANGELES TITER (BEAKER) (test code = :160 1541) ANGELES PATTERN (BEAKER) (test code = Nucleolar 1781) HEPATITIS A [id number] 08:30:00 Test Item Value Reference Range Interpretation Comments HEPATITIS A IGM ANTIBODY (BEAKER) Nonreactive Nonreactive (test code = 498) HEPATITIS A IGG ANTIBODY (BEAKER) Reactive Nonreactive A (test code = 2797) POCT-GLUCOSE [id number] 08:29:00 Test Item Value Reference Range Interpretation Comments POC-GLUCOSE METER 270 mg/dL 70-110 H TESTED AT [facility] 6720 ([facility]) (test code = [facility] 1538) [address] HEPATITIS B [id number] 08:29:00 Test Item Value Reference Range Interpretation Comments HEPATITIS B CORE TOTAL ANTIBODY Nonreactive Nonreactive (BEAKER) (test code = 497) HEPATITIS B SURFACE ANTIBODY < mIU/mL <8.0 (BEAKER) (test code = 647) HEPATITIS B SURFACE ANTIGEN (2) Nonreactive Nonreactive (BEAKER) (test code = 2585) BASIC METABOLIC [id number] 06:54:00 Test Item Value Reference Range Interpretation [...] S NOT APPLICABLE FOR DIALYSIS PATIEN TS. [id number] 06:50:00 Test Item Value Reference Range Interpretation Comments MAGNESIUM (BEAKER) (test code = 2.1 mg/dL 1.6-2.6 627) HEPATIC FUNCTION [id number] 06:50:00 Test Item Value Reference Range Interpretation [...] 224 U/L 125-220 H code = 635) [id number] 06:20:00 Test Item Value Reference Range Interpretation Comments FERRITIN (BEAKER) (test code = 1162 ng/mL 5-275 H 361) POCT-GLUCOSE [id number] 21:09:00 Test Item Value Reference Range Interpretation Comments POC-GLUCOSE METER 336 mg/dL 70-110 H Notified R Magdy ARVIZU/TESTED (BEAKER) (test code = AT [facility] [facility] 7703 0 POCT-GLUCOSE [id number] 18:17:00 Test Item Value Reference Range Interpretation Comments POC-GLUCOSE METER 308 mg/dL 70-110 H TESTED AT [facility] 6720 (BEAKER) (test code = MICHAEL Garcia [facility] 1538) [address] PROTEIN ELECTROPHORESIS, [id number] 17:39:00 Test Item Value Reference Range Interpretation [...] and concomitant chronic immune or inflammatory response. [id number] Armani To M.D. (BEAKER) (test code = (electonic signature) 2616) PROTEIN TOTAL SERUM, 7.6 gm/dL 6.0-8.3 SPEP (BEAKER) (test code = 7930) BONE MARROW PROCESS.2018-10-20 12:02:00 Test Item Value Reference Range Interpretation Comments ANATOMIC CASE# (BESUZIE) (test code M19-113 = 7830) ORDERED BY DOCTOR# (OPAL) (test Escudier code = 2457) PERFORMED BY DOCTOR# (OPAL) (test Staniszki code = 2458) CLOT RECEIVED? (BEAKER) (test [...] was performed. This was given to the central office technician who was present at the time of the study and deemed adequate. Subsequently, a core biopsy was obtained. This was also given to the central office technician. COMPLICATIONS: None. ESTIMATED BLOOD LOSS: Minimal. Patient Disposition: The patient was in the same state post procedure as preprocedure. IMPRESSION: Successful CT-guided aspiration and core biopsy of the bone marrow.Signed: Long Shepherd MDReport Verified Date/Time: 10/20/2018 11:46:15 Reading Location: [facility] C013X [facility] Consult Reading Room POCT-GLUCOSE [id number] 11:37:00 Test Item Value Reference Range Interpretation Comments POC-GLUCOSE METER 213 mg/dL 70-110 H TESTED AT [facility] 6720 (BEAKER) (test code = MICHAEL [place] 1538) [address] CBC W/PLT COUNT & AUTO [id number] 10:17:00 Test Item Value Reference Range Interpretation [...] Received comment: User comments: Slide comments:BASIC METABOLIC [id number] 07:15:00 Test Item Value Reference Range Interpretation [...] S NOT APPLICABLE FOR DIALYSIS PATIEN TS. [id number] 06:12:00 Test Item Value Reference Range Interpretation Comments MAGNESIUM (BEAKER) 2.0 mg/dL 1.6-2.6 Specimen slightly (test code = 627) hemolyzed [id number] 06:12:00 Test Item Value Reference Range Interpretation Comments PHOSPHORUS (BEAKER) 4.7 mg/dL 2.3-4.7 Specimen slightly (test code = 604) hemolyzed [id number] 06:06:00 Test Item Value Reference Range Interpretation [...] 2.5-3.5 for patients wiht mechanical heart valves.POCT-GLUCOSE [id number] 21:39:00 Test Item Value Reference Range Interpretation Comments POC-GLUCOSE METER 327 mg/dL 70-110 H Will Repea t Test/TESTED (BEAKER) (test code = AT [facility] 6720 AMISHA 3707) [facility] 7703 0 POCT-GLUCOSE [id number] 17:28:00 Test Item Value Reference Range Interpretation Comments POC-GLUCOSE METER 244 mg/dL 70-110 H TESTED AT [facility] 6720 (BEAKER) (test code = MICHAEL [place] 1538) [address] RHEUMATOID FACTOR AB, REFLEX TO [id number] 11:15:00 Test Item Value Reference Range Interpretation Comments RHEUMATOID FACTOR (BEAKER) (test Negative code = 573) CBC W/PLT COUNT & AUTO [id number] 09:44:00 Test Item Value Reference Range Interpretation [...] 3438) Received comment: User comments: Slide comments:POCT-GLUCOSE [id number] 09:05:00 Test Item Value Reference Range Interpretation Comments POC-GLUCOSE METER 166 mg/dL 70-110 H TESTED AT [facility] 6720 (BEAKER) (test code = MICHAEL [place] 1538) [address] COMPREHENSIVE METABOLIC [id number] 07:14:00 Test Item Value Reference Range Interpretation [...] S NOT APPLICABLE FOR DIALYSIS PATIEN TS. [id number] 06:36:00 Test Item Value Reference Range Interpretation Comments MAGNESIUM (BEAKER) 2.0 mg/dL 1.6-2.6 Specimen slightly (test code = 627) hemolyzed [id number] 06:36:00 Test Item Value Reference Range Interpretation Comments PHOSPHORUS (BEAKER) 4.4 mg/dL 2.3-4.7 Specimen slightly (test code = 604) hemolyzed URIC [id number] 06:36:00 Test Item Value Reference Range Interpretation Comments URIC ACID (BEAKER) 9.8 mg/dL 2.6-7.2 H Specimen slightly (test code = 773) hemolyzed HEPATIC FUNCTION [id number] 06:36:00 Test Item Value Reference Range Interpretation [...] 0-100 H (test code = 700) PROTHROMBIN [id number] 06:06:00 Test Item Value Reference Range Interpretation [...] 2.5-3.5 for patients wiht mechanical heart valves.CALCIUM, [id number] 05:56:00 Test Item Value Reference Range Interpretation Comments CALCIUM IONIZED (BEAKER) (test 1.10 mmol/L 1.12-1.27 L code = 698) PH, BLOOD (BEAKER) (test code = 7.38 1810) CALCIUM, [id number] 05:56:00 Test Item Value Reference Range Interpretation Comments CALCIUM IONIZED (OPAL) (test 1.07 mmol/L 1.12-1.27 L code = 698) PH, BLOOD (SUZIE) (test code = 7.41 1810) POCT-GLUCOSE [id number] 21:33:00 Test Item Value Reference Range Interpretation Comments POC-GLUCOSE METER 297 mg/dL 70-110 H TESTED AT [facility] 6720 ([facility]) (test code = MICHAEL [place] 1538) [address] CMV PCR, [id number] 18:31:00 Test Item Value Reference Range Interpretation Comments CMV VIRAL LOAD - Negative or below the NEGATIVE ([facility]) (test linear range of the code = [...] and its performance characteristics determined by the [facility] Pathol ogy Department, Section of Molecular Pathology. It has not been cleared or approved by the U.S. Foodand Drug Administration (FDA), since FDA approval is not required for clinical use of the test. Validation was done as required by The Clinical Laboratory Improvement Amendments of 1988.EBV VIRAL [id number] 18:23:00 Test Item Value Reference Range Interpretation Comments EBV VIRAL LOAD - Negative or below the NEGATIVE (BEAKER) (test linear range of the code = 2551) assay (<500 copies/mL) This assay was performed by real-time PCR for the detection of the Adria-Pozo virus (EBV) gene EBNA-1. The test is composed of (1) DNA extraction from patient specimen, and (2) real-time PCR amplification and detection with BLJP-4-hqoqwflf primers and probes. A well-conserved region of the EBNA-1 gene is targeted, along with an internal control sequence used to confirm PCR amplification. Asymptomatic carriers and viral genetic variation, among other factors, can affect the accuracy of nucleic acidtesting; therefore, results should be interpreted in light of clinical data.This test was developed and its performance characteristics determined by the [facility] Pathology Department,Section of Molecular Pathology. It [...] METER 198 mg/dL 70-110 H TESTED AT [facility] 6720 ([facility]) (test code = SALMAANEESH Garcia [facility] 1538) [address] RESPIRATORY PANEL [id number] 17:32:00 Test Item Value Reference Range Interpretation [...] decisions. This sample was tested at the [facility] Molecular Diagnostics Laboratory using the ADMETAArray Respiratory Panel. It is FDA cleared and has been verified and approved by the [facility] Molecular Diagnostics Laboratory for clinical use on nasopharyngeal swab specimens.The performance of the FilmArrayRP has not been established in individuals who received influenza vaccine. Recent administration of a nasal influenza vaccine may cause false positive results for Influenza A and/orInfluenza B.EOSINOPHIL SMEAR, [id number] 16:42:00 Test Item Value Reference Range Interpretation Comments EOSINOPHIL SMEAR, URINE Rare EOS =less than No EOS seen A (BEAKER) (test code = 5% WBCs seen are EOS 1851) CT, CHEST, WITHOUT [id number] 16:31:00FINAL REPORT CT Chest, abdomen, and pelvis [...] MDReport Verified Date/Time: 10/18/2018 16:31:25 Reading Location: [facility] Radiology Reading Room CT, [id number] 16:31:00Reason for exam:->hepatosplenomegalyFINAL REPORT CT Chest, abdomen, [...] spleen, and adrenal glands. The patient is statuspost cholecystectomy. No urinary calculus. No hydronephrosis. No [...] MDReport Verified Date/Time: 10/18/2018 16:31:25 Reading Location: [facility] Radiology Reading Room CBC W/PLT COUNT & AUTO [id number] 15:06:00 Test Item Value Reference Range Interpretation [...] Negative Negative, Inconclusive (test code = 1623) [id number] 13:19:00 Test Item Value Reference Range Interpretation Comments FERRITIN (BEAKER) (test code = 6230 ng/mL 5-275 H 361) HIV-1 ANTIGEN WITH HIV-1/2 [id number] 12:57:00 Test Item Value Reference Range Interpretation Comments HIV-1 ANTIGEN WITH HIV 1\\T\\2 Nonreactive Nonreactive ANTIBODY (2) (BEAKER) (test code = 2586) [id number] 12:53:00 Test Item Value Reference Range Interpretation Comments HAPTOGLOBIN (BEAKER) (test code = 301 mg/dL 14-258 H 366) [id number] 12:34:00 Test Item Value Reference Range Interpretation [...] is within 95-100% range.ALPHA FETOPROTEIN (AFP), TUMOR [id number] 12:29:00 Test Item Value Reference Range Interpretation Comments ALPHA-FETOPROTEIN (BEAKER) (test code < ng/mL <10.0 = 1094) [id number] 11:08:00 Test Item Value Reference Range Interpretation Comments TRIGLYCERIDES (BEAKER) (test code = 299 mg/dL 540) TRIGLYCERIDE REFERENCE RANGELow Risk <150Borderline Risk 150-199High Risk 200-499Very High Risk >=500POCT-GLUCOSE [id number] 11:05:00 Test Item Value Reference Range Interpretation Comments POC-GLUCOSE METER 248 mg/dL 70-110 H TESTED AT [facility] 6720 ([facility]) (test code = MICHAEL [place] 1538) [address] RETICULOCYTE [id number] 11:05:00 Test Item Value Reference Range Interpretation Comments RETICULOCYTE COUNT PCT (AKER) (test 4.3 % 0.5-1.7 H code = 575) IRON, TIBC, % SAT. (WITHOUT FERRITIN)2018-10-18 10:12:00 Test Item Value Reference Range Interpretation Comments IRON (BEAKER) (test code = 547) 42.0 ug/dL 40.0-160.0 TOTAL IRON BINDING CAPACITY 264 ug/dL 250-450 (AKER) (test code = 769) IRON % SATURATION (2) (AKER) 16 % 20-55 L (test code = 2590) POCT-GLUCOSE [id number] 08:55:00 Test Item Value Reference Range Interpretation Comments POC-GLUCOSE METER 198 mg/dL 70-110 H TESTED AT [facility] 6720 (BEAKER) (test code = MICHAEL [place] 1531) [address] [id number] 06:57:00 Test Item Value Reference Range Interpretation Comments PHOSPHORUS (BEAKER) (test code = 4.5 mg/dL 2.3-4.7 604) [id number] 06:57:00 Test Item Value Reference Range Interpretation Comments MAGNESIUM (BEAKER) (test code = 1.7 mg/dL 1.6-2.6 627) HEPATIC FUNCTION [id number] 06:57:00 Test Item Value Reference Range Interpretation [...] 693 U/L 6-55 H 347) BASIC METABOLIC [id number] 06:57:00 Test Item Value Reference Range Interpretation [...] NOT APPLICABLE FOR DIALYSIS PATIEN TS. PROTHROMBIN [id number] 06:37:00 Test Item Value Reference Range Interpretation Comments PROTIME (OPAL) (test code = 14.3 seconds 11.9-14.2 H 759) INR (BEAKER) (test code = 370) 1.2 <=5.9 Effective 09/13/2018: PT Reference Range ChangeNew: 11.9-14.2 Previous: 11.7- 14.7RECOMMENDED COUMADIN/WARFARIN INR THERAPY RANGESSTANDARD DOSE: 2.0-3.0 Includes: PROPHYLAXIS for venous thrombosis, systemic embolization; TREATMENT for venous thrombosis and/or pulmonary embolus.HIGH RISK: Target INR is 2.5-3.5 for patients wiht mechanical heart valves.CALCIUM, [id number] 06:19:00 Test Item Value Reference Range Interpretation Comments CALCIUM IONIZED (OPAL) (test 1.09 mmol/L 1.12-1.27 L code = 698) PH, BLOOD (OPAL) (test code = 7.36 1810) POCT-GLUCOSE [id number] 21:54:00 Test Item Value Reference Range Interpretation Comments POC-GLUCOSE METER 281 mg/dL 70-110 H TESTED AT [facility] 6720 (OPAL) (test code = MICHAEL Garcia [facility] 1538) [address] RAD, CHEST, 1 VIEW, NON [id number] 19:11:00Reason for exam:->SOBShould this be performed at [...] MDReport Verified Date/Time: 10/17/2018 19:11:02 Reading Location: [facility] C0[facility] Consult Reading Room [id number] 17:36:00 Test Item Value Reference Range Interpretation Comments FERRITIN (OPAL) (test code = 36202 ng/mL 5-275 H 361) LACTATE DEHYDROGENASE (LDH)2018-10-17 16:41:00 Test Item Value Reference Range Interpretation Comments LACTATE DEHYDROGENASE (BEAKER) (test 541 U/L 125-220 H code = 635) [id number] 16:37:00 Test Item Value Reference Range Interpretation Comments FIBRINOGEN LEVEL (BESUZIE) (test 439 mg/dl 225-434 H code = 658) POCT-GLUCOSE [id number] 12:47:00 Test Item Value Reference Range Interpretation Comments POC-GLUCOSE METER 250 mg/dL 70-110 H TESTED AT [facility] 6720 (OPAL) (test code = MICHAEL [place] 1538) [address] PUL PERF IMAGING, [facility], [id number] 10:48:00FINAL REPORT PROCEDURE: V/Q LUNG SCAN CPT CODE: 90208 INDICATION: Acute chest pain pulmonary origin PROTOCOL: [...] MDReport Verified Date/Time: 10/17/2018 10:48:21 Reading Location: [address] Reading Room U/S, PELVIC, [id number] 10:02:00Reason for exam:->AKIFINAL REPORT Abdominal and pelvic [...] Doppler of the abdomen. Signed: Leobardo Ayoub MDRbr[facility]ol [facility] Verified Date/Time: 10/17/2018 10:02:56 Reading Location: [address] Radiology Reading Room U/S, ABDOMINAL, WITH [id number] 10:02:00Reason for exam:->elevated transaminasesFINAL REPORT Abdominal and [...] Ayoub Verified Date/Time: 10/17/2018 10:02:56 Reading Location: [address] Radiology Reading Room VITAMIN B12 AND [id number] 08:37:00 Test Item Value Reference Range Interpretation Comments VITAMIN B12 (BEAKER) (test code = > pg/mL 213-816 H 774) FOLATE ([employer]EC[employer]World Warranty) (test code = 362) 13.3 ng/mL >=7.0 POCT-GLUCOSE [id number] 08:32:00 Test Item Value Reference Range Interpretation Comments POC-GLUCOSE METER 168 mg/dL 70-110 H TESTED AT [facility] 6720 (OPAL) (test code = MICHAEL [place] 8668 [address] [id number] 08:03:00 Test Item Value Reference Range Interpretation Comments FERRITIN (BEAKER) (test code = 57038 ng/mL 5-275 H 361) URIC [id number] 06:15:00 Test Item Value Reference Range Interpretation Comments URIC ACID (BEAKER) (test code = 13.2 mg/dL 2.6-7.2 H 773) [id number] 06:15:00 Test Item Value Reference Range Interpretation Comments MAGNESIUM (BEAKER) (test code = 1.8 mg/dL 1.6-2.6 627) LIPID [id number] 06:15:00 Test Item Value Reference Range Interpretation [...] 130-159 High 160-189 Very High >=190HEPATIC FUNCTION [id number] 06:15:00 Test Item Value Reference Range Interpretation [...] 1009 U/L 6-55 H 347) COMPLEMENT COMPONENT [id number] 06:15:00 Test Item Value Reference Range Interpretation Comments C4 COMPLEMENT (BEAKER) (test code = 28 mg/dL 15-57 394) COMPLEMENT COMPONENT [id number] 06:15:00 Test Item Value Reference Range Interpretation [...] L (test code = 2590) BASIC METABOLIC [id number] 06:15:00 Test Item Value Reference Range Interpretation [...] NOT APPLICABLE FOR DIALYSIS PATIEN TS. PROTHROMBIN [id number] 05:57:00 Test Item Value Reference Range Interpretation [...] mechanical heart valves.CBC W/PLT COUNT & AUTO [id number] 05:55:00 Test Item Value Reference Range Interpretation [...] PERCENT (BEAKER) (test code = 2801) TROPONIN [id number] 01:09:00 Test Item Value Reference Range Interpretation [...] acidosis, acute neurological disease, and persistent tachyarrhythmia.OSMOLALITY, [id number] 22:24:00 Test Item Value Reference Range Interpretation Comments OSMOLALITY URINE (BEAKER) (test 317 mOsm/kg 40-1,400 code = 614) HEMOGLOBIN [id number] 22:20:00 Test Item Value Reference Range Interpretation Comments HEMOGLOBIN A1C (BEAKER) (test code = 7.2 % 4.3-6.1 H 368) URINALYSIS W/ [id number] 22:19:00 Test Item Value Reference Range Interpretation [...] code = 516) SOURCE(BEAKER) (test code = 0485) POCT-GLUCOSE [id number] 22:09:00 Test Item Value Reference Range Interpretation Comments POC-GLUCOSE METER 171 mg/dL 70-110 H TESTED AT [facility] 6720 (BEAKER) (test code = MICHAEL Garcia [place] 1538) [address] PROTEIN, RANDOM [id number] 21:36:00 Test Item Value Reference Range Interpretation Comments PROTEIN, URINE (BEAKER) (test code = 44 mg/dL 0-14 H 1569) CHLORIDE, RANDOM [id number] 21:30:00 Test Item Value Reference Range Interpretation Comments CHLORIDE URINE (BEAKER) (test code = 96 meq/L 682) Reference Range: No NormalsCREATININE, RANDOM [id number] 21:09:00 Test Item Value Reference Range Interpretation Comments CREATININE URINE (BEAKER) (test 30.6 mg/dL code = 375) Reference Range: No NormalsSODIUM, RANDOM [id number] 21:09:00 Test Item Value Reference Range Interpretation Comments SODIUM URINE (BEAKER) (test code = 90 meq/L 243) Reference Range: No NormalsUREA NITROGEN, RANDOM [id number] 21:09:00 Test Item Value Reference Range Interpretation Comments UREA NITROGEN URINE (BEAKER) (test 232 mg/dL code = 538) Reference Range: No NormalsHEPATITIS PANEL, [id number] 20:39:00 Test Item Value Reference Range Interpretation Comments HEPATITIS A IGM ANTIBODY (BEAKER) Nonreactive Nonreactive (test code = 498) HEPATITIS B CORE IGM ANTIBODY Nonreactive Nonreactive (BEAKER) (test code = 645) HEPATITIS C ANTIBODY (BEAKER) Nonreactive Nonreactive (test code = 367) HEPATITIS B SURFACE ANTIGEN (2) Nonreactive Nonreactive (BEAKER) (test code = 2585) URINALYSIS W/ REFLEX URINE [id number] 20:12:00 Test Item Value Reference Range Interpretation [...] 1584) SOURCE(BEAKER) (test code = 2795) TROPONIN [id number] 19:15:00 Test Item Value Reference Range Interpretation [...] acute neurological disease, and persistent tachyarrhythmia.COMPREHENSIVE METABOLIC [id number] 19:15:00 Test Item Value Reference Range Interpretation [...] U/L 29-200 H code = 380) SALICYLATE [id number] 19:11:00 Test Item Value Reference Range Interpretation Comments SALICYLATE LEVEL (BEAKER) (test code < mg/dL 15.0-30.0 L = 764) Therapeutic Range: 15.0-30.0 mg/dLToxic: >30.0 mg/dL Lethal: >70.0 mg/dL ACETAMINOPHEN [id number] 19:10:00 Test Item Value Reference Range Interpretation Comments ACETAMINOPHEN LEVEL (BEAKER) (test < ug/mL 10.0-30.0 L code = 344) Therapeutic Range: 10.0-30.0 g/mLToxic Levels: >200.0 g/mLPROTHROMBIN [id number] 18:59:00 Test Item Value Reference Range Interpretation [...] mechanical heart valves.CBC W/PLT COUNT & AUTO [id number] 18:52:00 Test Item Value Reference Range Interpretation [...] code = 2801) GLUCOMETER GLUCOSE- LAB USE [id number] 06:59:00 Test Item Value Reference Range Interpretation Comments GLUCOMETER (test code 219 mg/dL 70-[address] EDWIN DUMAS AWAREMeter = GMG) ID: [id number] tor: [id number] NG GLUCOMETER GLUCOSE- LAB USE [id number] 04:45:00 Test Item Value Reference Range Interpretation Comments GLUCOMETER (test code = 212 mg/dL 70-100 H Mete r ID: GMG) [id number] tor: [id number]
[2022-09-15] MEDS ORDERED: ACETAMINOPHEN 500 MG TAB ONE (01:45)
[2022-09-15] MEDS ORDERED: HYDRALAZINE HCL 25 MG TABLET ONE (01:45)
[2022-09-15] MEDS ORDERED: cloNIDine HCL 0.1 MG TAB ONE (01:45)
[2022-09-15] MEDS ORDERED: TRAMADOL HCL 50 MG TAB ONE (02:01)
[2022-09-15] MEDS ORDERED: PROMETHAZINE 25 MG TABLET ONE (02:01)
[2022-09-15 02:40] LABS: Potassium 4.4 mEq/L (3.5-5.1)
[2022-09-15] MEDS ORDERED: INSULIN -REGULAR HUMAN 50 UNIT/0.5 ML ML ONE (02:57)
[2022-09-15] MEDS ORDERED: HYDROCODONE/APAP 10/325 TAB ONE (04:07)
--- NOTE | 2022-09-15 04:10 | ER ---
Nurse's Notes [facility] Name: Emily Barbour Age: 51 yrs Sex: Female : 1970 Arrival Date: 09/15/2022 Time: 01:19 Bed 7 Private MD: Diagnosis: Hypertensive urgency, end-stage renal disease on dialysis, acute tension headache, right periorbital pain, uncontrolled diabetes type 2, hyperglycemia Presentation: 09/15 01:29 Chief complaint: Patient states: I came in because my right eye lid started to swell kd3 all of the sudden and it hurts a lot. I am not sure what it is and it is kind of freaking me out because it hurts a lot. My blood pressure is also elevated. Coronavirus screen: Vaccine status: Patient reports receiving the 2nd dose of the covid vaccine. Ebola Screen: No symptoms or risks identified at this time. Mechanism of Injury: No Mechanism of Injury. The patient denies any loss of vision. Initial Sepsis Screen: Does the patient meet any 2 criteria? No. Patient's initial sepsis screen is negative. Does the patient have a suspected source of infection? No. Patient's initial sepsis screen is negative. Risk Assessment: Do you want to hurt yourself or someone else? Patient reports no desire to harm self or others. Onset of symptoms was September 15, 2022. 01:29 Method Of Arrival: Ambulatory kd3 01:29 Acuity: SALENA 3 kd3 Triage Assessment: 01:31 General: Appears uncomfortable, Behavior is calm, cooperative. Pain: Complains of pain kd3 in right upper eyelid. EENT: Lid(s) eyelid swelling . DOCTOR OF DENTAL MEDICINE: 01:54 LMP N/A - Post-menopause rv Historical: - Allergies: 01:31 Benadryl; kd3 01:31 metformin; kd3 01:31 shrimp; kd3 01:31 Tradjenta; kd3 - Home Meds: 01:55 carvedilol 25 mg Oral tab 1 tab 2 times per day [Active]; Humalog U-100 Insulin 100 rv unit/mL Sub-Q crtg [Active]; Trulicity subcutaneous [Active]; - PMHx: 01:31 Anemia; Diabetes - IDDM; High Cholesterol; Hypertension; Renal Disease; St 4; kd3 Tendonitis in Elbows; ibs; DIALYSIS MWF; - PSHx: 01:31 Appendectomy; breast reduction; Adenoid excision; hysterectomy; neck fusion; right kd3 foot, bone spur removed; Cholecystectomy; - Immunization history:: Adult Immunizations up to date. - Social history:: Smoking status: Patient/guardian denies using tobacco, the patient reports quitting approximately 9 years ago. - Family history:: not pertinent. Screenin:53 [facility] ED Fall Risk Assessment (Adult) History of falling in the last 3 months, rv including since admission No falls in past 3 months (0 pts). Abuse screen: Denies threats or abuse. Denies injuries from another. Nutritional screening: No deficits noted. Tuberculosis screening: No symptoms or risk factors identified. Assessment: 01:52 General: Appears uncomfortable, Behavior is calm, cooperative. Pain: Complains of pain rv in right eye and headache. Neuro: Level of Consciousness is awake, alert, obeys commands, Oriented to person, place, time, situation. Cardiovascular: Capillary refill < 3 seconds. Respiratory: Airway is patent Respiratory effort is even, unlabored. GI: No signs and/or symptoms were reported involving the gastrointestinal system. Abdomen is round non-distended. : No signs and/or symptoms were reported regarding the genitourinary system. 01:54 EENT: Eyes normal. Sclera/Cornea. rv Vital Signs: 01:29 BP 204 / 83; Pulse 91; Resp 18; Temp 98.6(O); Pulse Ox 96% ; Weight 107 kg; Height 5 kd3 ft. 5 in. ; 01:45 BP 181 / 74; Pulse 84; Resp 17; Pulse Ox 96% ; rv 03:54 BP 164 / 76; Pulse 71; Resp 17; Pulse Ox 97% on R/A; ll3 01:29 Body Mass Index 39.25 (107.00 kg, 165.1 cm) kd3 Visual Acuity: 01:55 Left Eye Visual acuity 20/20, Pupil size 3 mm, Normal, Reactive To Accomodation; Right rv Eye Visual acuity 20/20, Pupil size 3 mm, Normal, Reactive To Accomodation; Both Eyes Visual acuity 20/20; Without Lenses; ED Course: 01:20 Patient arrived in ED. jj6 01:31 Triage completed. kd3 01:31 Arm band placed on right wrist. kd3 01:33 Aaron Alvarado MD is Attending Physician. sp4 01:34 Nelson Martinez, RN is Primary Nurse. rv 01:53 Patient has correct armband on for positive identification. Placed in gown. Bed in low rv position. Call light in reach. Side rails up X 1. Adult w/ patient. Client placed on continuous cardiac and pulse oximetry monitoring. NIBP monitoring applied. 01:54 No provider procedures requiring assistance completed. rv 02:04 Initial lab(s) drawn, by me, sent to lab. Inserted saline lock: 20 gauge in right ll3 antecubital area, using aseptic technique. Blood collected. 02:28 CT Head Brain wo Cont In Process Unspecified. EDMS 04:19 IV discontinued, intact, bleeding controlled, No redness/swelling at site. Pressure rv dressing applied. Administered Medications: 01:44 Drug: cloNIDine PO 0.2 mg Route: PO; rv 04:19 Follow up: Response: No adverse reaction rv 01:44 Drug: Acetaminophen PO 1000 mg Route: PO; rv 04:18 Follow up: Response: Medication administered at discharge. rv 02:04 Drug: traMADol PO 100 mg Route: PO; ll3 04:19 Follow up: Response: No adverse reaction rv 02:04 Drug: Promethazine PO 25 mg Route: PO; ll3 04:18 Follow up: Response: No adverse reaction rv 02:52 Drug: Insulin Regular Human IVP 5 units {Co-Signature: rv (Nelson Martinez RN).} ll3 Route: IVP; Site: right antecubital; 04:18 Follow up: Response: No adverse reaction rv 04:02 Drug: [place] PO 10 mg-325 mg 1 tabs Route: PO; ll3 04:18 Follow up: Response: No adverse reaction rv 04:19 Not Given (Physician Discretion): HydrALAZINE PO 50 mg PO once rv Medication: 01:55 VIS not applicable for this client. rv Outcome: 04:10 Discharge ordered by . sp4 04:19 Discharged to home ambulatory, with family. rv 04:19 Condition: good 04:19 Discharge instructions given to patient, Instructed on discharge instructions, follow up and referral plans. medication usage, Demonstrated understanding of instructions, follow-up care, medications, Prescriptions given X 1. 04:20 Patient left the ED. rv Signatures: Dispatcher [facility] Nelson Gomez, RN RN rv Negra [id number] Husam Burks RN RN ll3 Debbie Hernandez RN RN kd3 Aaron Alvarado MD MD sp4 Nelson Martinez RN rv
--- NOTE | 2022-09-15 04:10 | EDPHYS ---
Physician Documentation [facility] Name: Emily Barbour Age: 51 yrs Sex: Female : 1970 Arrival Date: 09/15/2022 Time: 01:19 Bed 7 Private MD: ED Physician Aaron Alvarado HPI: 09/15 01:47 This 51 yrs old Female presents to ER via Ambulatory with complaints of Eye sp4 Swelling, High Blood Pressure, Eye Pain. 01:47 51-year-old female with history of end-stage renal disease on hemodialysis scheduled to sp4 dialyze today, associated diabetes type 2, hypercholesterolemia, hypertension, anemia, presents with acute onset right temporal headache also discomfort in the right upper eyelid. Patient hypertensive on arrival. Denies similar headache in the past. Patient is a blood sugar meter states blood sugar is high. . Headache is moderate right temporal right supraorbital location, constant headache. SKIVER HEEL TAP: 01:54 LMP N/A - Post-menopause rv Historical: - Allergies: 01:31 Benadryl; kd3 01:31 metformin; kd3 01:31 shrimp; kd3 01:31 Tradjenta; kd3 - Home Meds: 01:55 carvedilol 25 mg Oral tab 1 tab 2 times per day [Active]; Humalog U-100 Insulin 100 rv unit/mL Sub-Q crtg [Active]; Trulicity subcutaneous [Active]; - PMHx: 01:31 Anemia; Diabetes - IDDM; High Cholesterol; Hypertension; Renal Disease; St 4; kd3 Tendonitis in Elbows; ibs; DIALYSIS MWF; - PSHx: 01:31 Appendectomy; breast reduction; Adenoid excision; hysterectomy; neck fusion; right kd3 foot, bone spur removed; Cholecystectomy; - Immunization history:: Adult Immunizations up to date. - Social history:: Smoking status: Patient/guardian denies using tobacco, the patient reports quitting approximately 9 years ago. - Family history:: not pertinent. ROS: 01:47 Constitutional: Negative for fever, chills, and weight loss, Eyes: Negative for injury, sp4 pain, redness, and discharge, positive for right periorbital pain. ENT: Negative for injury, pain, and discharge, Neck: Negative for injury, pain, and swelling, Cardiovascular: Negative for chest pain, palpitations, and edema, Respiratory: Negative for shortness of breath, cough, wheezing, and pleuritic chest pain, Abdomen/GI: Negative for abdominal pain, nausea, vomiting, diarrhea, and constipation, Back: Negative for injury and pain, : Negative for injury, bleeding, discharge, and swelling, MS/Extremity: Negative for injury and deformity, Skin: Negative for injury, rash, and discoloration, Neuro: Negative for weakness, numbness, tingling, and seizure, positive for right temporal headache Psych: Negative for depression, anxiety, Allergy/Immunology: Negative for hives, rash, and allergies Endocrine: Negative for neck swelling, polydipsia, polyuria, polyphagia, and weight changes Hematologic/Lymphatic: Negative for swollen nodes, abnormal bleeding, and unusual bruising Exam: 01:47 Constitutional: This is a well developed, well nourished patient who is awake, alert, sp4 and in no acute distress. Morbidly overweight female, left upper arm dialysis fistula with palpable thrill Head/Face: Normocephalic, atraumatic. Eyes: Pupils equal round and reactive to light, extra-ocular motions intact. Lids and lashes normal. Conjunctiva and sclera are not injected. Cornea within normal limits. Periorbital areas with no swelling, redness, or edema. Normal bilateral funduscopy ENT: Nares patent. No nasal discharge, no septal abnormalities noted. Tympanic membranes are normal and external auditory canals are clear. Oropharynx with no redness, swelling, or masses, exudates, or evidence of obstruction, uvula midline. Mucous membranes moist. Neck: Trachea midline, no thyromegaly or masses palpated, and no cervical lymphadenopathy. Supple, full range of motion without nuchal rigidity, or vertebral point tenderness. No Meningismus. Chest/axilla: Normal chest wall appearance and motion. Nontender with no deformity. No lesions are appreciated. Cardiovascular: Regular rate and rhythm with a normal S1 and S2. No gallops, murmurs, or rubs. Normal PMI, no JVD. No pulse deficits. Respiratory: Lungs have equal breath sounds bilaterally, clear to auscultation and percussion. No rales, rhonchi or wheezes noted. No increased work of breathing, no retractions or nasal flaring. Abdomen/GI: Soft, non-tender, with normal bowel sounds. No distension or tympany. No guarding or rebound. No evidence of tenderness throughout. Back: No spinal tenderness. No costovertebral tenderness. Skin: Warm, dry with normal turgor. Normal color with no rashes, no lesions, and no evidence of cellulitis. MS/ Extremity: Pulses equal, no cyanosis. Neurovascular intact. Full, normal range of motion. Neuro: Awake and alert, GCS 15, oriented to person, place, time, and situation. Cranial nerves II-XII grossly intact. Motor strength 5/5 in all extremities. Sensory grossly intact. Psych: Awake, alert, with orientation to person, place and time. Behavior, mood, and affect are within normal limits Vital Signs: 01:29 BP 204 / 83; Pulse 91; Resp 18; Temp 98.6(O); Pulse Ox 96% ; Weight 107 kg; Height 5 kd3 ft. 5 in. ; 01:45 BP 181 / 74; Pulse 84; Resp 17; Pulse Ox 96% ; rv 03:54 BP 164 / 76; Pulse 71; Resp 17; Pulse Ox 97% on R/A; ll3 01:29 Body Mass Index 39.25 (107.00 kg, 165.1 cm) kd3 Visual Acuity: 01:55 Left Eye Visual acuity 20/20, Pupil size 3 mm, Normal, Reactive To Accomodation; Right rv Eye Visual acuity 20/20, Pupil size 3 mm, Normal, Reactive To Accomodation; Both Eyes Visual acuity 20/20; Without Lenses; MDM: 01:33 Patient medically screened. sp4 04:05 Differential diagnosis: Tension headache, cluster headache, migraine. Data reviewed: sp4 vital signs, nurses notes, old medical records, lab test result(s), electrolytes, radiologic studies, CT scan. 04:05 ED course: Blood sugar was brought down to [address] revealed no acute sp4 intracranial abnormality. Patient's headache has improved.. ED course: Blood pressure has improved as well with p.o. clonidine , will prescribe as needed Fioricet for headache control at home. Will advised to attend dialysis this morning. 09/15 01:47 Order name: MISTY; Complete Time: 02:46 sp4 09/15 01:47 Order name: CT Head Brain wo Cont sp4 Administered Medications: 01:44 Drug: cloNIDine PO 0.2 mg Route: PO; rv 04:19 Follow up: Response: No adverse reaction rv 01:44 Drug: Acetaminophen PO 1000 mg Route: PO; rv 04:18 Follow up: Response: Medication administered at discharge. rv 02:04 Drug: traMADol PO 100 mg Route: PO; ll3 04:19 Follow up: Response: No adverse reaction rv 02:04 Drug: Promethazine PO 25 mg Route: PO; ll3 04:18 Follow up: Response: No adverse reaction rv 02:52 Drug: Insulin Regular Human IVP 5 units {Co-Signature: pb (Nelson Martinez RN).} ll3 Route: IVP; Site: right antecubital; 04:18 Follow up: Response: No adverse reaction rv 04:02 Drug: [place] PO 10 mg-325 mg 1 tabs Route: PO; ll3 04:18 Follow up: Response: No adverse reaction rv 04:19 Not Given (Physician Discretion): HydrALAZINE PO 50 mg PO once rv Disposition Summary: 09/15/22 04:10 Discharge Ordered Location: Home sp4 Problem: new sp4 Symptoms: have improved sp4 Condition: Stable sp4 Diagnosis - Hypertensive urgency, end-stage renal disease on dialysis, acute tension headache, sp4 right periorbital pain, uncontrolled diabetes type 2, hyperglycemia Followup: sp4 - With: Private Physician - When: 7 - 10 days - Reason: Recheck today's complaints Discharge Instructions: - Discharge Summary Sheet sp4 - General Headache Without Cause, [id number] sp4 Prescriptions: - Fioricet 50-300-40 mg Oral capsule - take 1 capsule by ORAL route every 8 hours; 30 capsule; Refills: 0, Product sp4 Selection Permitted Signatures: Dispatcher [employer] Nelson Gomez, RN RN rv Husam Burks RN RN ll3 Debbie Hernandez RN RN [email or web address] Aaron Alvarado MD MD sp4 Nelson Martinez RN rv
[2022-09-15 04:42] VITALS: TEMP 98.6
[2022-09-15 04:45] VITALS: BP 164/76; O2SAT 97
--- NOTE | 2022-09-15 12:42 | RAD REPORT ---
EXAM DESCRIPTION: CT - Head Brain Wo Cont - 09/15/2022 6:57 am CLINICAL HISTORY: The patient is 51 years old and is Female; acute onset headache TECHNIQUE: Axial computed tomography images of the head/brain without intravenous contrast. Sagitt al and coronal reformatted images were created and reviewed. This CT exam was performed using one o r more of the following dose reduction techniques: automated exposure control, adjustment of the mA and/or kV according to patient size, and/or use of iterative reconstruction technique. COMPARISON: No relevant prior studies available. FINDINGS: Brain: Unremarkable. No hemorrhage. No significant white matter disease. No edema. Ventricles: Unremarkable. No ventriculomegaly. Bones/joints: Unremarkable. No acute fracture. Soft tissues: Unremarkable. Sinuses: Unremarkable as visualized. Mastoid air cells: Unremarkable as visualized. No mastoid effusion. IMPRESSION: No acute intracranial abnormality. Electronically signed by: Maged Castro MD 09/15/2022 3:01 AM CDT Due to temporary technical issues with the PACS/Fluency reporting system, reports are being signed by the in house radiologist without review as a courtesy to ensure prompt reporting. The interpreting r adiologist is fully responsible for the content of the report.
== END 2022-09-15 04:20 | disposition home or self-care (01) ==
LOC: ER 01:19
DX: I16.0 Hypertensive urgency (principal); G44.209 Tension-type headache, unspecified, not intractable; E11.65 Type 2 diabetes mellitus with hyperglycemia; E11.22 Type 2 diabetes mellitus with diabetic chronic kidney disease; I12.0 Hypertensive chronic kidney disease with stage 5 chronic kidney disease or end stage renal disease; N18.6 End stage renal disease; Z99.2 Dependence on renal dialysis; Z79.4 Long term (current) use of insulin; Z88.8 Allergy status to other drugs, medicaments and biological substances; Z91.013 Allergy to seafood
CPT/HCPCS: 80048; 36415; 70450; 96374; 99284; J1815; Q0169

== ENCOUNTER 2023-11-22 17:48 | Observation (INO) | payer BC, OTHER ==
--- NOTE | 2023-11-22 18:39 | RAD REPORT ---
EXAM DESCRIPTION: CT - Head Brain Wo Cont - 11/22/2023 6:30 pm CLINICAL HISTORY: HEADACHE COMPARISON: Head Brain Wo Cont dated 09/15/2022; Head Brain Wo Cont dated 04/01/2022 TECHNIQUE: All CT scans are performed using dose optimization technique as appropriate and may inclu de automated exposure control or mA/KV adjustment according to patient size. FINDINGS: No intracranial hemorrhage, hydrocephalus or extra-axial fluid collection.No areas of brai n edema or evidence of midline shift. Mild age advanced cerebral atrophy. The paranasal sinuses and mastoids are clear. The calvarium is intact. IMPRESSION: No acute intracranial abnormality.
--- NOTE | 2023-11-22 18:47 | RAD REPORT ---
EXAM DESCRIPTION: RAD - Chest Single View - 11/22/2023 6:41 pm CLINICAL HISTORY: COUGH COMPARISON: Chest Single View dated 09/03/2021; Chest Single View dated 04/08/2021; Chest Single View dated 07/03/2020; Chest Single View dated 12/17/2019 FINDINGS: Lines: None. Lungs: No evidence of edema or pneumonia. Pleural: No significant pleural effusions or pneumothorax. Cardiac: Mild cardiomegaly. Mediastinum: Within normal limits. Bones: No acute fractures. ACDF in the cervical spine. Other: None IMPRESSION: No acute cardiopulmonary disease.
[2023-11-22] MEDS ORDERED: HYDRALAZINE HCL 20 MG/ML VIAL ONE (18:57)
[2023-11-22] MEDS ORDERED: ONDANSETRON 4 MG/2 ML VIAL ONE (18:57)
[2023-11-22 19:04] LABS: Absolute Basophils 0.1 K/uL (0-0.5); Absolute Eosinophils 0.2 K/uL (0-0.5); Absolute Lymphocytes (CBC) 0.5 K/uL (0.7-4.9); Absolute Monocytes 0.4 K/uL (0.1-1.3); Absolute Neutrophil 4.1 K/uL (1.8-8.0); Basophils % 1.2 % (0-1.3); Eosinophils % 3.1 % (0-4.4); Hematocrit 26.4 % (36.0-45.0); Hemoglobin 8.7 g/dL (12.0-15.0); MCH 31.6 pg (27.0-35.0); MCV 95.7 fL (80-100); MPV 8.7 fL (7.6-11.3); Neutrophils % 77.7 % (41.7-73.7); Nucleated Red Blood Cells % 0.2 % (0-0); Platelets 164 thou/uL (152-406); RBC Red Blood Cell Count 2.76 M/uL (3.86-4.86); Red Cell Distribution Width 18.8 % (12.1-15.2)
[2023-11-22 19:24] LABS: PT Prothrombin Time 12.5 SECONDS (9.4-12.5); Protime INR 1.12
[2023-11-22 19:37] LABS: ALT/SGPT 15 U/L (13-56); Albumin 3.4 g/dL (3.4-5.0); Albumin/Globulin Ratio 0.7 (1.1-1.8); Alkaline Phosphatase 208 U/L (45-117); Anion Gap 17.3 mEq/L (5.0-15.0); BUN Blood Urea Nitrogen 51 mg/dL (7-18); Bicarbonate 20 mEq/L (21-32); Bilirubin Total 0.6 mg/dL (0.2-1.0); Globulin 5.1 g/dL (2.3-3.5); Glomerular Filtration Rate 6 ml/min (=/>90); Glucose Level 185 mg/dL (74-106); Lipase 385 U/L (13-75); NT PRO-BNP 42194 pg/mL (<125); Protein, Total 8.5 g/dL (6.4-8.2); Sodium Level 134 mEq/L (136-145)
[2023-11-22 19:38] LABS: AST/SGOT 11 U/L (15-37); Bilirubin Direct < 0.2 mg/dL (0-0.2); Bilirubin Indirect, Calculated 0.4 mg/dL (0.2-0.8); Potassium 4.3 mEq/L (3.5-5.1)
[2023-11-22] MEDS ORDERED: METOCLOPRAMIDE 10 MG/2mL INJ ONE (19:39)
[2023-11-22] MEDS ORDERED: AMLODIPINE 10 MG TAB ONE (19:39)
[2023-11-22] MEDS ORDERED: FENTANYL CITR 100 MCG/2 ML ONE (19:40)
--- NOTE | 2023-11-22 20:53 | EDPHYS ---
Physician Documentation [facility] Name: Emily Barbour Age: 53 yrs Sex: Female : 1970 Arrival Date: 11/22/2023 Time: 17:48 Bed 4 Private MD: JULIENNE Physician Darrick Rey HPI: 11/21 19:19 This 53 yrs old Female presents to ER via Ambulatory with complaints of elaina Blurred Vision, Headache. 19:19 The patient complains of pain to the top of head, forehead, left frontal area, left elaina side of the back of head, right frontal area and right side of the back of head. The patient describes the headache as constant. Onset: The symptoms/episode began/occurred 1 day(s) ago. Associated signs and symptoms: Pertinent positives:. Severity of symptoms: At its worst the pain was mild, in the emergency department the pain is unchanged. Headache History: The patient has had previous headaches and this one is similar to previous episodes. The symptoms are alleviated by nothing. the symptoms are aggravated by nothing. The patient has experienced similar episodes in the past, multiple times. 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 LMP N/A - , Not ha1 Historical: - Allergies: 18:05 Benadryl; nj1 18:05 metformin; nj1 18:05 shrimp; nj1 18:05 Tradjenta; nj1 - Home Meds: 20:58 carvedilol 25 mg Oral tab 1 tab 2 times per day [Active]; Trulicity 3 mg/0.5 mL rg5 subcutaneous Pen Injector every week [Active]; torsemide 20 mg oral tablet [Active]; pantoprazole 40 mg oral tablet, delayed release (enteric coated) 1 tab daily [Active]; 21:02 Humalog U-100 Insulin 100 unit/mL Sub-Q crtg 30 unit 3 times per day [Active]; Coreg 25 rg5 mg Oral tablet [Active]; Carbamazepine Oral [Active]; trazodone 50 mg Oral tablet every day at bedtime [Active]; gabapentin 100 mg oral capsule 3 times per day [Active]; clonidine HCl 0.1 mg Oral Tablet, Extended Release 12 hr [Active]; - PMHx: 18:05 Anemia; Diabetes - IDDM; DIALYSIS MWF; High Cholesterol; Hypertension; ibs; Renal nj1 Disease; St 4; Tendonitis in Elbows; - PSHx: 18:05 Adenoid excision; Appendectomy; breast reduction; Cholecystectomy; hysterectomy; neck nj1 fusion; right foot; Left foot surgery; - Immunization history:: Client reports receiving the 2nd dose of the Covid vaccine. - Infectious Disease History:: Denies. - Social history:: Smoking status: Patient/guardian denies using tobacco, the patient reports quitting approximately 10 years ago. - Family history:: not pertinent. ROS: 19:19 Constitutional: Negative for fever, chills, and weight loss, Eyes: Negative for injury, elaina pain, redness, and discharge, ENT: Negative for injury, pain, and discharge, Neck: Negative for injury, pain, and swelling, Cardiovascular: Negative for chest pain, palpitations, and edema, Respiratory: Negative for shortness of breath, cough, wheezing, and pleuritic chest pain, Abdomen/GI: Negative for abdominal pain, nausea, vomiting, diarrhea, and constipation, Back: Negative for injury and pain, : Negative for injury, bleeding, discharge, and swelling, MS/Extremity: Negative for injury and deformity, Skin: Negative for injury, rash, and discoloration, Psych: Negative for depression, anxiety, suicide ideation, homicidal ideation, and hallucinations, Allergy/Immunology: Negative for hives, rash, and allergies, Endocrine: Negative for neck swelling, polydipsia, polyuria, polyphagia, and marked weight changes, Hematologic/Lymphatic: Negative for swollen nodes, abnormal bleeding, and unusual bruising, 19:19 Neuro: Positive for headache, Exam: 19:19 Constitutional: This is a well developed, well nourished patient who is awake, alert, elaina and in no acute distress. Head/Face: Normocephalic, atraumatic. Eyes: Pupils equal round and reactive to light, extra-ocular motions intact. Lids and lashes normal. Conjunctiva and sclera are non-icteric and not injected. Cornea within normal limits. Periorbital areas with no swelling, redness, or edema. ENT: Nares patent. No nasal discharge, no septal abnormalities noted. Tympanic membranes are normal and external auditory canals are clear. Oropharynx with no redness, swelling, or masses, exudates, or evidence of obstruction, uvula midline. Mucous membranes moist. Neck: Trachea midline, no thyromegaly or masses palpated, and no cervical lymphadenopathy. Supple, full range of motion without nuchal rigidity, or vertebral point tenderness. No Meningismus. Chest/axilla: Normal chest wall appearance and motion. Nontender with no deformity. No lesions are appreciated. Cardiovascular: Regular rate and rhythm with a normal S1 and S2. No gallops, murmurs, or rubs. Normal PMI, no JVD. No pulse deficits. Respiratory: Lungs have equal breath sounds bilaterally, clear to auscultation and percussion. No rales, rhonchi or wheezes noted. No increased work of breathing, no retractions or nasal flaring. Abdomen/GI: Soft, non-tender, with normal bowel sounds. No distension or tympany. No guarding or rebound. No evidence of tenderness throughout. Back: No spinal tenderness. No costovertebral tenderness. Full range of motion. Skin: Warm, dry with normal turgor. Normal color with no rashes, no lesions, and no evidence of cellulitis. MS/ Extremity: Pulses equal, no cyanosis. Neurovascular intact. Full, normal range of motion. Neuro: Awake and alert, GCS 15, oriented to person, place, time, and situation. Cranial nerves II-XII grossly intact. Motor strength 5/5 in all extremities. Sensory grossly intact. Cerebellar exam normal. Normal gait. Psych: Awake, alert, with orientation to person, place and time. Behavior, mood, and affect are within normal limits. 19:19 Neuro: Orientation: is normal, appropriate for stated age, no acute changes, Mentation: is normal, appropriate for stated age, no acute changes, Memory: is normal, appropriate for stated age, no acute changes, Cranial nerves: grossly normal, is grossly normal based on the patient's age, no acute changes, Cerebellar function: is grossly normal, is grossly normal based on the patient's age, no acute changes, Motor: is normal, is grossly normal based on the patient's age, no acute changes, strength is normal, Sensation: is normal, no obvious gross deficits, appropriate no acute changes, Gait: is steady, appropriate for age, seizure activity, is not displayed by the patient, 19:27 ECG was reviewed by the Attending Physician. [facility] Vital Signs: 18:02 BP 237 / 103; Pulse 87; Resp 18; Temp 98.6(O); Pulse Ox 97% on R/A; Weight 94 kg; nj1 Height 5 ft. 5 in. ; Pain 10/10; 19:16 BP 178 / 80; Pulse 88; Resp 17; Temp 98; Pulse Ox 100% on R/A; Pain 7/10; rg5 20:20 BP 177 / 82; Pulse 96; Resp 17 S; Pulse Ox 94% on R/A; rg5 21:15 BP 202 / 89; Pulse 96; Resp 18; Pulse Ox 96% on R/A; rg5 22:21 BP 210 / 98; Pulse 95; Resp 18; Pulse Ox 96% on R/A; Pain 7/10; rg5 22:55 BP 161 / 72; Pulse 82; Resp 17; Pulse Ox 97% on R/A; rg5 18:02 Body Mass Index 34.49 (94.00 kg, 165.1 cm) nj1 18:02 Pain Scale: Adult nj1 19:16 Pain Scale: Adult rg5 22:21 Pain Scale: Adult rg5 [place] Coma Score: 19:16 Eye Response: spontaneous(4). Motor Response: obeys commands(6). Verbal Response: rg5 oriented(5). Total: 15. 19:22 Eye Response: spontaneous(4). Motor Response: obeys commands(6). Verbal Response: elaina oriented(5). Total: 15. MDM: 18:13 Patient medically screened. elaina 19:22 Differential diagnosis: glaucoma, hypertensive headache, hypoglycemia, hyponatremia, elaina intracerebral hemorrhage, migraine, neoplasm, subarachnoid bleed, subdural hematoma, temporal arteritis, tension headache, traumatic injuries, trigeminal neuralgia, uremia, vasomotor headache. Data reviewed: vital signs, nurses notes, lab test result(s), EKG, radiologic studies, CT scan, plain films. Consideration of Admission/Observation Escalation of care including admission/observation considered. I considered the following discharge prescriptions or medication management in the emergency department Medications were administered in the Emergency Department. See 18:14 Order name: Basic Metabolic Panel; Complete Time: 20:24 [facility] 11/21 18:14 Order name: CBC with Diff; Complete Time: 19:07 [facility] 11/21 18:14 Order name: LFT's; Complete Time: 20:24 [facility] 11/21 18:14 Order name: Magnesium; Complete Time: 20:24 [facility] 11/21 18:14 Order name: NT PRO-BNP; Complete Time: 20:24 [facility] 11/21 18:14 Order name: PT-INR; Complete Time: 20:24 [facility] 11/21 18:14 Order name: Troponin HS; Complete Time: 20:24 [facility] 08 18:14 Order name: Urinalysis w/ reflexes elaina 11/21 18:14 Order name: Lipase; Complete Time: 20:24 [facility] 11/21 21:31 Order name: Urinalysis w/ reflexes EDMS 08 21:31 Order name: CBC with Automated Diff EDMS 08 21:31 Order name: CBC with Automated Diff EDMS 08 21:31 Order name: Comprehensive Metabolic Panel EDMS 08 21:31 Order name: Comprehensive Metabolic Panel EDMS 11/21 18:14 Order name: XRAY Chest (1 view); Complete Time: 19:07 [facility] 11/21 18:14 Order name: CT Head Brain wo Cont; Complete Time: 19:07 [facility] 11/21 21:34 Order name: Brain Wo Cont EDNV 11/21 18:14 Order name: Cardiac monitoring; Complete Time: 18:54 [facility] 11/21 18:14 Order name: EKG - Nurse/Tech; Complete Time: 19:25 [facility] 11/21 18:14 Order name: IV Saline Lock; Complete Time: 18:54 [facility] 11/21 18:14 Order name: Labs collected and sent; Complete Time: 18:54 [facility] 11/21 18:14 Order name: O2 Per Protocol; Complete Time: 18:54 [facility] 11/21 18:14 Order name: O2 Sat Monitoring; Complete Time: 18:54 [facility] EC:27 Rate is 99 beats/min. Rhythm is regular. QRS [place] is Normal. [place] interval is normal. QRS elaina interval is normal. QT interval is normal. No Q waves. T waves are Normal. T waves are Inverted in leads I, aVL, V1, V2, V3. No ST changes noted. Clinical impression: Abnormal EKG without significant change and No evidence of ischemia. Interpreted by me. Reviewed by me. Administered Medications: 18:14 CANCELLED (Duplicate Order): ns 0.9% 500 ml IV at bolus once elaina 18:15 CANCELLED (Duplicate Order): ns 0.9% 1000 ml IV at 1 bolus Per protocol; 1000 mL bolus elaina 19:02 Drug: hydrALAZINE IVP 20 mg IVP once Route: IVP; Site: right forearm; bp 20:00 Follow up: Response: Blood pressure is lowered rg5 19:02 Drug: Ondansetron IVP 4 mg IVP once; over 2 minutes Route: IVP; Site: right forearm; bp 23:48 Follow up: Response: No adverse reaction rg5 19:30 Drug: metoCLOPramide IVP 10 mg IVP once; over 1 to 2 minutes Route: IVP; Site: right rg5 forearm; 20:10 Follow up: Response: No adverse reaction rg5 19:35 Drug: Norvasc PO 10 mg PO once Route: PO; rg5 23:48 Follow up: Response: No adverse reaction rg5 19:35 Drug: fentaNYL (PF) IVP 50 mcg IVP once Route: IVP; Site: right forearm; rg5 20:10 Follow up: Response: Pain is decreased rg5 Disposition Summary: 11/22/23 20:52 Hospitalization Ordered Notes: Hospitalization Status: Observation elaina Provider: Liang Pisano cha Location: Telemetry/MedSur (observation) elaina Condition: Fair elaina Problem: new elaina Symptoms: have improved elaina Bed/Room Type: Standard [facility] Room Assignment: [id number](11/22/23 22:05) kmf Diagnosis - Unspecified disorder of binocular vision elaina - Essential (primary) hypertension elaina - Type 1 diabetes mellitus with hyperglycemia elaina - Headache elaina Discharge Instructions: - Discharge Summary Sheet elaina - Anemia elaina - General Headache Without Cause elaina - Hyperglycemia elaina - Hypertension, Adult elaina - Dialysis elaina - Hypertension, Adult, [id number] elaina - Diabetes Mellitus and Nutrition, Adult elaina - How to Take Your Blood Pressure, Vlon-lj-Lgok elaina - General Headache Without Cause, Xiwf-[id number] elaina - Managing Your Hypertension elaina Forms: - Medication Reconciliation Form elaina - SBAR form elaina - Leadership Thank You Letter elaina Prescriptions: - Norvasc 5 mg Oral Tablet - take 1 tablet ORAL route once daily; 20 tablet; Refills: 0, Product Selection elaina Permitted - Hydralazine 25 mg Oral tablet - take 1 tablet ORAL route 3 times per day with food; 45 tablet; Refills: 0, elaina Product Selection Permitted Signatures: Dispatcher [employer] Darrick Partida MD MD cha Peltier, Brian, RN RN bp Megan Riddle RN RN nj1 AideXochitl [facility] Ortiz Powers, RN RN rg5 Corrections: (The following items were deleted from the chart) 18:14 18:14 NS 0.9% IV 500 ml IV at bolus once ordered. elaina elaina 18:15 18:14 NS 0.9% IV 1000 ml IV at 1 bolus Per protocol; 1000 mL bolus ordered. elaina elaina 18:15 18:15 BASIC METABOLIC PANEL+C.LAB.BRZ ordered. EDMS EDMS 18:15 18:15 CBC+H.LAB.BRZ ordered. EDMS EDMS 18:15 18:15 HEPATIC FUNCTION+C.LAB.BRZ ordered. EDMS EDMS 18:15 18:15 MAGNESIUM+C.LAB.BRZ ordered. EDMS EDMS 18:15 18:15 PROBNP+C.LAB.BRZ ordered. EDMS EDMS 18:15 18:15 PROTIME (+INR)+COAG.LAB.BRZ ordered. EDMS EDMS 18:15 18:15 Troponin High Sensitivity+C.LAB.BRZ ordered. EDMS EDMS 18:15 18:15 Urinalysis+U.LAB.BRZ ordered. EDMS EDMS 18:15 18:15 LIPASE+C.LAB.BRZ ordered. EDMS EDMS 18:15 18:15 Chest Single View+RAD.RAD.BRZ ordered. EDMS EDMS 18:15 18:15 Head Brain Wo Cont+CT.RAD.BRZ ordered. EDMS EDMS 21:11 20:58 Home Meds: Humalog U-100 Insulin 100 unit/mL Sub-Q crtg; rg5 rg5 22:05 20:52 elaina [facility]
--- NOTE | 2023-11-22 20:53 | ER ---
Nurse's Notes [facility] Name: Emily Barbour Age: 53 yrs Sex: Female : 1970 Arrival Date: 11/22/2023 Time: 17:48 Bed 4 Private MD: Diagnosis: Unspecified disorder of binocular vision;Essential (primary) hypertension;Type 1 diabetes mellitus with hyperglycemia;Headache Presentation: 11/21 18:02 Chief complaint: Patient states: Headache for 2 weeks, getting worse. Blurry vision for nj1 1.5 weeks. Saw eye doctor today, advised to come to ED for further evaluation and treatment. Coronavirus screen: Vaccine status: Patient reports receiving the 2nd dose of the covid vaccine. Ebola Screen: Patient denies travel to an Ebola-affected area in the 21 days before illness onset. Initial Sepsis Screen: Does the patient meet any 2 criteria? No. Patient's initial sepsis screen is negative. Does the patient have a suspected source of infection? No. Patient's initial sepsis screen is negative. Risk Assessment: Do you want to hurt yourself or someone else? Patient reports no desire to harm self or others. Onset of symptoms was October 2023. 18:02 Method Of Arrival: Ambulatory [facility] 18:02 Acuity: [place] 2 [facility] Triage Assessment: 18:06 Headache History: The patient has had previous headaches and this one is different than [facility] previous episodes. General: Appears in no apparent distress. comfortable, Behavior is calm, cooperative, appropriate for age. Pain: Complains of pain in headache Pain currently is 10 out of 10 on a pain scale. Pain began 2 weeks ago. Neuro: Level of Consciousness is awake, alert, obeys commands, Oriented to person, place, time, situation. Cardiovascular: Patient's skin is warm and dry. Respiratory: Airway is patent Respiratory effort is even, unlabored. 19:00 Pain: Also complains of no other associated symptoms. 1 FISHER: 19:15 LMP N/A - , Not 1 Historical: - Allergies: 18:05 Benadryl; nj1 18:05 metformin; nj1 18:05 shrimp; nj1 18:05 Tradjenta; nj1 - Home Meds: 20:58 carvedilol 25 mg Oral tab 1 tab 2 times per day [Active]; Trulicity 3 mg/0.5 mL rg5 subcutaneous Pen Injector every week [Active]; torsemide 20 mg oral tablet [Active]; pantoprazole 40 mg oral tablet, delayed release (enteric coated) 1 tab daily [Active]; 21:02 Humalog U-100 Insulin 100 unit/mL Sub-Q crtg 30 unit 3 times per day [Active]; Coreg 25 rg5 mg Oral tablet [Active]; Carbamazepine Oral [Active]; trazodone 50 mg Oral tablet every day at bedtime [Active]; gabapentin 100 mg oral capsule 3 times per day [Active]; clonidine HCl 0.1 mg Oral Tablet, Extended Release 12 hr [Active]; - PMHx: 18:05 Anemia; Diabetes - IDDM; DIALYSIS MWF; High Cholesterol; Hypertension; ibs; Renal nj1 Disease; St 4; Tendonitis in Elbows; - PSHx: 18:05 Adenoid excision; Appendectomy; breast reduction; Cholecystectomy; hysterectomy; neck nj1 fusion; right foot; Left foot surgery; - Immunization history:: Client reports receiving the 2nd dose of the Covid vaccine. - Infectious Disease History:: Denies. - Social history:: Smoking status: Patient/guardian denies using tobacco, the patient reports quitting approximately 10 years ago. - Family history:: not pertinent. Screenin:16 [facility] ED Fall Risk Assessment (Adult) History of falling in the last 3 months, rg5 including since admission No falls in past 3 months (0 pts) Confusion or Disorientation No (0 pts) Intoxicated or Sedated No (0 pts) Impaired Gait No (0 pts) Mobility Assist Device Used No (0 pt) Altered Elimination No (0 pt) Score/Fall Risk Level 0 - 2 = Low Risk Oriented to surroundings, Maintained a safe environment, Educated pt \T\ family on fall prevention, incl call for assistance when getting out of bed, Hourly rounding (assess needs \T\ fall precautionary measures) done. Abuse screen: Denies threats or abuse. Nutritional screening: No deficits noted. Tuberculosis screening: No symptoms or risk factors identified. Assessment: 19:15 General: Appears in no apparent distress. comfortable, Behavior is calm, cooperative, rg5 appropriate for age. 19:15 Pain: Complains of pain in head Pain currently is 7 out of 10 on a pain scale. Quality rg5 of pain is described as aching, Pain began 1 day ago. Is continuous. Neuro: Level of Consciousness is awake, alert, obeys commands, Oriented to person, place, time, situation. Cardiovascular: Capillary refill < 3 seconds Patient's skin is warm and dry. Respiratory: Airway is patent Trachea midline Respiratory effort is even, unlabored, Respiratory pattern is regular, Breath sounds are clear bilaterally. GI: Abdomen is flat, round Abd is soft and non tender. : No signs and/or symptoms were reported regarding the genitourinary system. EENT: No deficits noted. Derm: Skin is intact, Skin is dry, Skin is pink, warm \T\ dry. Musculoskeletal: Range of motion: intact in all extremities. 20:22 Reassessment: Patient and/or family updated on plan of care and expected duration. Pain rg5 level reassessed. Patient is alert, oriented x 3, equal unlabored respirations, skin warm/dry/pink. 21:15 Reassessment: No changes from previously documented assessment. Patient and/or family rg5 updated on plan of care and expected duration. Pain level reassessed. 22:24 Reassessment: Patient and/or family updated on plan of care and expected duration. Pain rg5 level reassessed. 23:15 Reassessment: Patient and/or family updated on plan of care and expected duration. Pain ha1 level reassessed. Patient is alert, oriented x 3, equal unlabored respirations, skin warm/dry/pink. Patient states feeling better. Patient states symptoms have improved. Vital Signs: 18:02 BP 237 / 103; Pulse 87; Resp 18; Temp 98.6(O); Pulse Ox 97% on R/A; Weight 94 kg; nj1 Height 5 ft. 5 in. ; Pain 10/10; 19:16 BP 178 / 80; Pulse 88; Resp 17; Temp 98; Pulse Ox 100% on R/A; Pain 7/10; rg5 20:20 BP 177 / 82; Pulse 96; Resp 17 S; Pulse Ox 94% on R/A; rg5 21:15 BP 202 / 89; Pulse 96; Resp 18; Pulse Ox 96% on R/A; rg5 22:21 BP 210 / 98; Pulse 95; Resp 18; Pulse Ox 96% on R/A; Pain 7/10; rg5 22:55 BP 161 / 72; Pulse 82; Resp 17; Pulse Ox 97% on R/A; rg5 18:02 Body Mass Index 34.49 (94.00 kg, 165.1 cm) nj1 18:02 Pain Scale: Adult nj1 19:16 Pain Scale: Adult rg5 22:21 Pain Scale: Adult rg5 [place] Coma Score: 19:16 Eye Response: spontaneous(4). Motor Response: obeys commands(6). Verbal Response: rg5 oriented(5). Total: 15. 19:22 Eye Response: spontaneous(4). Motor Response: obeys commands(6). Verbal Response: elaina oriented(5). Total: 15. ED Course: 17:52 Patient arrived in ED. im 18:04 Triage completed. nj1 18:06 Arm band placed on right wrist. nj1 18:11 Notified Charge Nurse of Chief complaint. nj1 18:13 Darrick Rey MD is Attending Physician. elaina 18:27 Adonay Pulido, JOCY is Primary Nurse. bp 18:31 CT Head Brain wo Cont In Process Unspecified. EDMS 18:43 XRAY Chest (1 view) In Process Unspecified. EDMS 18:54 Initial lab(s) drawn, by fl, sent to lab. Inserted saline lock: 22 gauge in right bp forearm, using aseptic technique. Blood collected. Flushed with 10 mL NS. 19:16 Allergy band placed. Placed in gown. Bed in low position. Call light in reach. Side rg5 rails up X 1. Adult w/ patient. 19:16 No provider procedures requiring assistance completed. rg5 19:23 EKG done, by ED staff, reviewed by Darrick Rey MD. oe 20:51 Liang Pisano MD is Hospitalizing Provider. elaina 23:15 Provided Education on: need for admit. ha1 23:15 Patient admitted, IV remains in place. intact, No redness/swelling at site. ha1 Administered Medications: 18:14 CANCELLED (Duplicate Order): ns 0.9% 500 ml IV at bolus once elaina 18:15 CANCELLED (Duplicate Order): ns 0.9% 1000 ml IV at 1 bolus Per protocol; 1000 mL bolus elaina 19:02 Drug: hydrALAZINE IVP 20 mg IVP once Route: IVP; Site: right forearm; bp 20:00 Follow up: Response: Blood pressure is lowered rg5 19:02 Drug: Ondansetron IVP 4 mg IVP once; over 2 minutes Route: IVP; Site: right forearm; bp 23:48 Follow up: Response: No adverse reaction rg5 19:30 Drug: metoCLOPramide IVP 10 mg IVP once; over 1 to 2 minutes Route: IVP; Site: right rg5 forearm; 20:10 Follow up: Response: No adverse reaction rg5 19:35 Drug: Norvasc PO 10 mg PO once Route: PO; rg5 23:48 Follow up: Response: No adverse reaction rg5 19:35 Drug: fentaNYL (PF) IVP 50 mcg IVP once Route: IVP; Site: right forearm; rg5 20:10 Follow up: Response: Pain is decreased rg5 Medication: 19:16 VIS not applicable for this client. rg5 Outcome: 20:52 Decision to Hospitalize by Provider. elaina 23:15 Admitted to Med/surg accompanied by tech, via wheelchair, ha1 23:15 Condition: stable 23:15 Instructed on the need for admit, 23:54 Patient left the ED. ha1 Signatures: Dispatcher [employer] EDMS Darrick Rey MD MD cha Espinosa, [place] oe Peltier, Brian RN RN bp Maria Greenfield RN RN 1 Megan Riddle RN RN mt1 Verena Weiner Rommel, RN RN rg5 Corrections: (The following items were deleted from the chart) 21:11 20:58 Home Meds: Humalog U-100 Insulin 100 unit/mL Sub-Q crtg; rg5 rg5
[2023-11-22] MEDS ORDERED: ONDANSETRON 4 MG/2 ML VIAL IV PRN (21:25)
--- NOTE | 2023-11-22 21:25 | P.HP ---
Certification for Inpatient Patient admitted to: Observation With expected LOS: <2 Midnights Practitioner: I am a practitioner with admitting privileges, knowledge of patient current condition, hospital course, and medical plan of care. Services: Services provided to patient in accordance with Admission requirements found in Title 42 Section 412.3 of the Code of Federal Regulations Patient History Date of Service: 11/23/23 Reason for admission: Headache History of Present Illness: 53 yrs old Female with past medical history of hypertension, hyperlipidemia, diabetes, ESRD, on dialysis Tuesday, history of tendinitis in the elbows who came to the ER with blurring of vision and headache. Patient complains of headache bifrontal and also bitemporal which is a constant throbbing type of headache which started a day ago and has been progressively getting worse. Associated with some nausea but no vomiting. She had a history of migraines before but not to this extent. Denies any chest pain or shortness of breath. No fever or chills. No sick contacts. Patient was assessed in the ER and is admitted for further management. Allergies metformin Allergy (Verified 12/22/18 22:15) Unknown diphenhydramine HCl [From Benadryl] Adverse Reaction (Verified 12/22/18 22:15) Rash linagliptin [From Tradjenta] Adverse Reaction (Verified 12/22/18 22:15) weight loss TRIGENTA Adverse Reaction (Severe, Uncoded 08/22/16 19:57) Nausea/Vomiting Home medications list reviewed: Yes Home Medications: Cholecalciferol (Vitamin D3) [Vitamin D3] 1,000 iu PO DAILY 12/23/18 Insulin Lispro [Humalog] See Protocol SQ TIDWM 12/23/18 Magnesium Oxide [Magnesium] 1,000 mg PO BID 12/23/18 carvediloL [Carvedilol] 25 mg PO BID 12/23/18 Dulaglutide [Trulicity] 3 mg SQ SEECOM 03/25/19 Duloxetine [Cymbalta *] 30 mg PO DAILY 12/14/19 Pantoprazole [Protonix Tab*] 40 mg PO DAILY 12/14/19 Tirzepatide [Mounjaro] 2.5 mg SQ EVERY 7TH DAY 11/23/23 Torsemide [Soaanz] 40 mg PO BID 11/23/23 Venlafaxine HCl [Venlafaxine HCl ER] 37.5 mg PO DAILY 11/23/23 - Past Medical/Surgical History Diabetic: Yes Past Medical History: Reviewed- Non-Contributory -: Hypertension -: Hypertriglyceridemia -: Diabetes mellitus type 2 -: Diabetic neuropathy -: Anemia of chronic disease -: Recurrent UTI -: Chronic renal disease, stage IV -: Irritable bowel syndrome-diarrhea -: Osteoarthritis -: Former smoker Past Surgical History: Reviewed- Non-Contributory -: Cholecystectomy -: Appendectomy -: Hysterectomy -: Tubal ligation -: Breast reduction -: Adenoidectomy -: bone spurs removed -: neckm fusion surgery Psychosocial/ Personal History: Patient is for 30 years, she has 3 children, she works at [employer]. - Family History Family History: Reviewed- Non-Contributory - Family History Father -: Stroke, Cancer Brother -: Heart disease Sister Notes: Thyroid Problems Mother -: Heart disease, Diabetes - Social History Smoking Status: Never smoker Alcohol use: Yes CD- Drugs: No Caffeine use: Yes Review of Systems 10-point ROS is otherwise unremarkable Physical Examination - Vital Signs Temperature: 97.2 F Blood Pressure: 210/98 Pulse: 92 Respirations: 18 Pulse Ox (%): 94 - Physical Exam General: Alert, In no apparent distress, Oriented x3 HEENT: Atraumatic, Normocephalic Neck: Supple Respiratory: Clear to auscultation bilaterally, Normal air movement Cardiovascular: Normal pulses, Regular rate/rhythm, Normal S1 S2 Capillary refill: <2 Seconds Gastrointestinal: Soft and benign, W/out hepatosplenomegaly Musculoskeletal: No clubbing, No swelling Integumentary: No rashes, No breakdown Neurological: Normal gait, Normal speech, Normal strength at 5/5 x4 extr Lymphatics: No axilla or inguinal lymphadenopathy - Studies Laboratory Data (last 24 hrs) 11/22/23 11/22/23 11/22/23 18:53 18:53 18:53 WBC 5.30 Hgb 8.7 L Hct 26.4 L Plt Count 164 PT 12.5 INR 1.12 Sodium 134 L Potassium 4.3 BUN 51 H Creatinine 7.72 H Glucose 185 H Magnesium 2.0 Total Bilirubin 0.6 AST 11 L ALT 15 Alkaline Phosphatase 208 H Lipase 385 H Assessment and Plan - Plan Intractable headache Pain control CT head negative for any acute changes Monitor closely Accelerated hypertension Antihypertensives titrated Continue home medications and titrate as needed Patient received multiple doses of hydralazine and labetalol Hyperlipidemia Continue statin ESRD on dialysis Monitor renal parameters Electrolytes monitor and replace accordingly Nephrology consulted Diabetes Insulin sliding scale Accu-Chek before every meal and at bedtime Anemia of chronic disease Monitor H&H closely No overt bleeding at this time Hyponatremia Monitor electrolytes and replace accordingly GI/DVT prophylaxis Advanced directive full code Discharge Plan: Home Plan to discharge in: 48 Hours - Advance Directives Does patient have a Living Will: No Does patient have a Durable POA for Healthcare: No - Code Status/Comfort Care Code Status: Full Code Time Spent Managing Pts Care (In Minutes): 48
[2023-11-22] MEDS ORDERED: ACETAMINOPHEN 325 MG TABLET ONE (22:23)
[2023-11-22] MEDS: ACETAMINOPHEN 325 MG TABLET PO PRN (22:26)
[2023-11-22] MEDS ORDERED: LABETALOL 20 MG/4ML SYRINGE IV ONE (22:29)
[2023-11-22] MEDS: LABETALOL 20 MG/4ML SYRINGE IV PRN (22:45)
[2023-11-23 00:23] LABS: Renal Epithelial <5 /HPF (None Seen); Specific Gravity 1.009 (1.005-1.030); Urine Bacteria <20 /HPF (<20); Urine Bilirubin NEGATIVE (Negative); Urine Blood Trace (Negative); Urine Clarity Turbid (Clear); Urine Color Light-Yellow (Yellow); Urine Culture Reflex Order NOT NEEDED; Urine Glucose 3+ (Negative); Urine Ketones NEGATIVE (Negative); Urine Microscopic Reflex YN ORDER UMIC; Urine Mucus Slight /HPF (None Seen); Urine Nitrite NEGATIVE (Negative); Urine Protein 3+ (Negative); Urine RBC None Seen /HPF (None Seen); Urine Urobilinogen Normal (Normal); Urine WBC <5 /HPF (<5)
[2023-11-23 00:46] VITALS: BMI 34.7
[2023-11-23] MEDS: HEPARIN 5000 UNIT/ML 1 ML VIAL SQ SCH (00:59)
[2023-11-23] MEDS ORDERED: SUMATRIPTAN SUCCI 50 MG TAB PO PRN (01:58)
[2023-11-23] MEDS: KETOROLAC 30 MG/ML INJ IV ONE (01:59)
[2023-11-23] MEDS: SUMATRIPTAN SUCCI 50 MG TAB PO PRN (02:26)
[2023-11-23] MEDS: ACETAMIN/CAFFEINE/BUTALB TAB PO PRN (04:00)
--- NOTE | 2023-11-23 06:10 | P.PN ---
Date of Service: 11/23/23 subjective BRANCH controlled with PRN anaglesia, 02 95 RA Review of Systems 10-point ROS is otherwise unremarkable Physical Examination - Vital Signs reviewed - Physical Exam General: Alert, In no apparent distress, Oriented x3 HEENT: Atraumatic, Normocephalic Neck: Supple Respiratory: Clear to auscultation bilaterally, Normal air movement Cardiovascular: Normal pulses, Regular rate/rhythm, Normal S1 S2 Capillary refill: <2 Seconds Gastrointestinal: Soft and benign, W/out hepatosplenomegaly Musculoskeletal: No clubbing, No swelling Integumentary: No rashes, No breakdown Neurological: Normal gait, Normal speech, Normal strength at 5/5 x4 extr Lymphatics: No axilla or inguinal lymphadenopathy Assessment and Plan - Plan Intractable headache Pain control CT head negative for any acute changes Monitor closely Accelerated hypertension Antihypertensives titrated Continue home medications and titrate as needed Patient received multiple doses of hydralazine and labetalol Hyperlipidemia Continue statin ESRD on dialysis Monitor renal parameters Electrolytes monitor and replace accordingly Nephrology consulted Diabetes Insulin sliding scale Accu-Chek before every meal and at bedtime Anemia of chronic disease Monitor H&H closely No overt bleeding at this time Hyponatremia Monitor electrolytes and replace accordingly GI/DVT prophylaxis Advanced directive full code Discharge Plan: Home Plan to discharge in: 48 Hours - Advance Directives Does patient have a Living Will: No Does patient have a Durable POA for Healthcare: No - Code Status/Comfort Care Code Status: Full Code Time Spent Managing Pts Care (In Minutes): 35
[2023-11-23] MEDS: GABAPENTIN 400 MG CAP PO SCH (06:30)
[2023-11-23 06:34] LABS: Absolute Eosinophils 0.2 K/uL (0-0.5); Absolute Lymphocytes (CBC) 0.8 K/uL (0.7-4.9); Absolute Monocytes 0.5 K/uL (0.1-1.3); Absolute Neutrophil 3.7 K/uL (1.8-8.0); Basophils % 0.9 % (0-1.3); Eosinophils % 3.2 % (0-4.4); Hematocrit 25.7 % (36.0-45.0); Hemoglobin 8.5 g/dL (12.0-15.0); Lymphocytes % 15.4 % (15.3-44.8); MCH 31.9 pg (27.0-35.0); MCV 96.9 fL (80-100); Monocytes % 8.6 % (3.3-12.3); Neutrophils % 71.9 % (41.7-73.7); Nucleated Red Blood Cells % 0.3 % (0-0); Platelets 148 thou/uL (152-406); RBC Red Blood Cell Count 2.65 M/uL (3.86-4.86); Red Cell Distribution Width 19.1 % (12.1-15.2)
[2023-11-23 06:54] LABS: ALT/SGPT 15 U/L (13-56); Albumin 3.5 g/dL (3.4-5.0); Albumin/Globulin Ratio 0.7 (1.1-1.8); Alkaline Phosphatase 211 U/L (45-117); Anion Gap 16.8 mEq/L (5.0-15.0); BUN Blood Urea Nitrogen 62 mg/dL (7-18); Bicarbonate 24 mEq/L (21-32); Bilirubin Total 0.5 mg/dL (0.2-1.0); Globulin 4.8 g/dL (2.3-3.5); Glomerular Filtration Rate 5 ml/min (=/>90); Glucose Level 256 mg/dL (74-106); Potassium 3.8 mEq/L (3.5-5.1); Protein, Total 8.3 g/dL (6.4-8.2); Sodium Level 134 mEq/L (136-145)
[2023-11-23 07:00] LABS: AST/SGOT < 10 U/L (15-37)
[2023-11-23] MEDS: NIFEDIPINE XL 90 MG TABLET PO SCH (09:00)
--- NOTE | 2023-11-23 09:38 | RAD REPORT ---
EXAM DESCRIPTION: MRI - Brain Wo Cont - 11/23/2023 9:15 am CLINICAL HISTORY: Blurring of vision Headache, drowsiness COMPARISON: Head Brain Wo Cont dated 11/22/2023 TECHNIQUE: Multi-sequence, multiplanar MR imaging of the brain was performed without contrast. FINDINGS: No intracranial hemorrhage, hydrocephalus or extra-axial fluid collections. No edema or sh ift of midline structures. No findings to suspect brain mass. DWI is negative for acute CVA. Midline structures are normally formed. Mild left mastoid effusion. The paranasal sinuses and mastoids are otherwise clear. IMPRESSION: Negative for acute CVA or other acute intracranial process. Mild left mastoid effusion.
[2023-11-23] MEDS ORDERED: NA CHLORIDE 0.9% 1,000 ML IV PRN (10:54)
[2023-11-23] MEDS ORDERED: MANNITOL 25% 12.5 GM/50 ML VIAL IV PRN (10:54)
[2023-11-23] MEDS ORDERED: ALBUMIN HUMAN 25% 50 ML IV SCH (11:00)
[2023-11-23 16:17] LABS: Hepatitis B Surface Ab - Quant 353.07 mIU/mL (<8.0); Hepatitis B surface AG Interp. Nonreactive (Nonreactive)
[2023-11-23 16:18] LABS: HBsAG Nonreactive Report Report
[2023-11-23] MEDS: EPOETIN ALFA 10,000 UNIT/ML VIAL IV SCH (17:15)
[2023-11-23] MEDS: HOME MED 1 EA UNK (Gabapentin [Gabapentin] 600 MG Tablet) PO SCH (20:30)
[2023-11-23] MEDS ORDERED: D50W 25 GM/50 ML SYRINGE IV PRN (20:39)
[2023-11-23] MEDS ORDERED: GLUCAGON 1 MG/VIAL IM PRN (20:39)
[2023-11-23] MEDS ORDERED: D10W 125 ML IV PRN (20:47)
[2023-11-23] MEDS: MELATONIN 5 MG TABLET PO PRN (20:50)
--- NOTE | 2023-11-23 20:59 | P.CNS ---
Date of Consult: 11/23/23 Reason for Consult: ESRD Requesting Physician: Sachi Dong Chief Complaint: Headache History of Present Illness: 53 yrs old Female with past medical history of hypertension, hyperlipidemia, diabetes, ESRD, on dialysis Tuesday, history of tendinitis in the elbows who came to the ER with blurring of vision and headache. Patient complains of headache bifrontal and also bitemporal which is a constant throbbin g type of headache which started a day ago and has been progressively getting worse. Associated with some nausea but no vomiting. She had a history of migraines before but not to this extent. Denies any chest pain or shortness of breath. No fever or chills. No sick contacts. [id number] 19:19 This 53 yrs old Female presents to ER via Ambulatory with complaints of elaina Blurred Vision, Headache. 19:19 The patient complains of pain to the top of head, forehead, left frontal area, left elaina side of the back of head, right frontal area and right side of the back of head. The patient describes the headache as constant. Onset: The symptoms/episode began/occurred 1 day(s) ago. Associated signs and symptoms: Pertinent positives:. Severity of symptoms: At its worst the pain was mild, in the emergency department the pain is unchanged. Headache History: The patient has had previous headaches and this one is similar to previous episodes. The symptoms are alleviated by nothing. the symptoms are aggravated by nothing. The patient has experienced similar episodes in the past, multiple times. Allergies metformin Allergy (Verified 12/22/18 22:15) Unknown diphenhydramine HCl [From Benadryl] Adverse Reaction (Verified 12/22/18 22:15) Rash linagliptin [From Tradjenta] Adverse Reaction (Verified 12/22/18 22:15) weight loss TRIGENTA Adverse Reaction (Severe, Uncoded 08/22/16 19:57) Nausea/Vomiting Home medications list reviewed: Yes Home Medications: Cholecalciferol (Vitamin D3) [Vitamin D3] 1,000 iu PO DAILY 12/23/18 Insulin Lispro [Humalog] See Protocol SQ TIDWM 12/23/18 Magnesium Oxide [Magnesium] 1,000 mg PO BID 12/23/18 carvediloL [Carvedilol] 25 mg PO BID 12/23/18 Dulaglutide [Trulicity] 3 mg SQ SEECOM 03/25/19 Duloxetine [Cymbalta *] 30 mg PO DAILY 12/14/19 Pantoprazole [Protonix Tab*] 40 mg PO DAILY 12/14/19 Gabapentin 1,200 mg PO BID 11/23/23 Tirzepatide [Mounjaro] 2.5 mg SQ EVERY 7TH DAY 11/23/23 Torsemide [Soaanz] 40 mg PO BID 11/23/23 Venlafaxine HCl [Venlafaxine HCl ER] 37.5 mg PO DAILY 11/23/23 - Past Medical/Surgical History Diabetic: Yes -: Hypertension -: Hypertriglyceridemia -: Diabetes mellitus type 2 -: Diabetic neuropathy -: Anemia of chronic disease -: Recurrent UTI -: ESRD (Dr. Cameron/ [facility]) -: Irritable bowel syndrome-diarrhea -: Osteoarthritis -: Former smoker -: Cholecystectomy -: Appendectomy -: Hysterectomy -: Tubal ligation -: Breast reduction -: Adenoidectomy -: bone spurs removed -: neckm fusion surgery Psychosocial/ Personal History: Patient is for 30 years, she has 3 children, she works at [employer]. - Family History Father Medical History: Stroke, Cancer Brother Medical History: Heart disease Sister Notes: Thyroid Problems Mother Medical History: Heart disease, Diabetes - Social History Smoking Status: Former smoker Alcohol use: Yes CD- Drugs: No Caffeine use: Yes Place of Residence: Home Review of Systems 10-point ROS is otherwise unremarkable Respiratory: SOB with Excertion Physical Examination Temp Pulse Resp BP Pulse Ox 97.2 F 79 16 232/99 H 96 11/23/23 12:00 11/23/23 12:00 11/23/23 12:00 11/23/23 19:13 11/23/23 12:00 General: In no apparent distress, Cooperative HEENT: Atraumatic Neck: Supple Respiratory: Normal air movement Cardiovascular: No edema, Regular rate/rhythm Gastrointestinal: Soft and benign, Non-distended Musculoskeletal: No clubbing, No contractures Integumentary: No rashes, No cyanosis Neurological: Normal speech Blood work reviewed in the chart. Imagings Data: [id number] EXAM DESCRIPTION: RAD - Chest Single View - 11/22/2023 6:41 pm CLINICAL HISTORY: COUGH COMPARISON: Chest Single View dated 09/03/2021; Chest Single View dated 04/08/2021; Chest Single View dated 07/03/2020; Chest Single View dated 12/17/2019 FINDINGS: Lines: None. Lungs: No evidence of edema or pneumonia. Pleural: No significant pleural effusions or pneumothorax. Cardiac: Mild cardiomegaly. Mediastinum: Within normal limits. Bones: No acute fractures. ACDF in the cervical spine. Other: None IMPRESSION: No acute cardiopulmonary disease. [id number] EXAM DESCRIPTION: MRI - Brain Wo Cont - 11/23/2023 9:15 am CLINICAL HISTORY: Blurring of vision Headache, drowsiness COMPARISON: Head Brain Wo Cont dated 11/22/2023 TECHNIQUE: Multi-sequence, multiplanar MR imaging of the brain was performed without contrast. FINDINGS: No intracranial hemorrhage, hydrocephalus or extra-axial fluid collections. No edema or shift of midline structures. No findings to suspect brain mass. DWI is negative for acute CVA. Midline structures are normally formed. Mild left mastoid effusion. The paranasal sinuses and mastoids are otherwise clear. IMPRESSION: Negative for acute CVA or other acute intracranial process. Mild left mastoid effusion. [id number] EXAM DESCRIPTION: CT - Head Brain Wo Cont - 11/22/2023 6:30 pm CLINICAL HISTORY: HEADACHE COMPARISON: Head Brain Wo Cont dated 09/15/2022; Head Brain Wo Cont dated 04/01/2022 TECHNIQUE: All CT scans are performed using dose optimization technique as appropriate and may include automated exposure control or mA/KV adjustment according to patient size. FINDINGS: No intracranial hemorrhage, hydrocephalus or extra-axial fluid collection.No areas of brain edema or evidence of midline shift. Mild age advanced cerebral atrophy. The paranasal sinuses and mastoids are clear. The calvarium is intact. IMPRESSION: No acute intracranial abnormality. Conclusions/Impression: ESRD on HD Proteinuria Hyponatremia -Acute HD ordered HTN with CKD/ CHF -Continue Coreg Diastolic CHF, A/C -Low sodium diet -HD with UF DM II with CKD & Polyneuropathy -RISS -Continue Gabapentin Anemia in CKD -Retacrit qHD CKD MBD -Start calcitriol -Ergo X2 -Start Renvela Case reviewed with hospitalist team Thank you kindly for the consultation
[2023-11-23] MEDS: carvediloL 12.5 MG TAB PO SCH (21:10)
[2023-11-23] MEDS: INSULIN REGULAR (HUMAN) 100 UNIT/ML SQ SCH (21:11)
[2023-11-23] MEDS: TORSEMIDE 20 MG TAB PO SCH (21:11)
[2023-11-23] MEDS ORDERED: NIFEDIPINE XL 90 MG TABLET PO ONE (22:00)
[2023-11-24] MEDS ORDERED: CALCIUM CARBONATE CHEW 500MG TAB PO PRN (03:58)
[2023-11-24] MEDS: DULOXETINE 30 MG CAP PO SCH (09:00)
[2023-11-24] MEDS: DOCUSATE NA 100 MG CAP PO SCH (09:00)
[2023-11-24] MEDS: DRISDOL (VITAMIN D=ERGOCALCIFEROL) 50000 UNIT CAP PO SCH (09:29)
[2023-11-24 09:30] VITALS: O2SAT 97
[2023-11-24] MEDS: CALCITROL 0.25 MCG CAP PO SCH (09:30)
[2023-11-24] MEDS: MULTIVITAMINS,THERAPEUT 1 TAB PO SCH (09:30)
[2023-11-24] MEDS: VENLAFAXINE HCL XR 37.5MG CAP PO SCH (09:30)
[2023-11-24] MEDS: PANTOPRAZOLE 40MG TABLET PO SCH (09:30)
[2023-11-24] MEDS: VITAMIN D 1000 UNIT TAB PO SCH (09:30)
[2023-11-24] MEDS: SEVELAMER CARBONATE 800 MG TABLET PO SCH (09:31)
[2023-11-24] MEDS: carvediloL 25 MG TAB PO SCH (09:33)
--- NOTE | 2023-11-24 13:11 | EKG ---
Test Date: 2023-11-22 Test Time: 19:18:59 [employer] Resource Planning Consultant: SHANTANU MEASUREMENT RESULTS: Intervals: Rate: 99 MN: 178 QRSD: 130 QT: 410 QTc: 526 [place]: P: 61 MN: 178 QRS: 264 T: 66 INTERPRETIVE STATEMENTS: Sinus rhythm with occasional premature ventricular complexes Right bundle branch block Inferior infarct, age undetermined Anterior infarct, age undetermined T wave abnormality, consider lateral ischemia Abnormal ECG Compared to ECG 04/01/2022 14:53:28 Ventricular premature complex(es) now present T-wave abnormality now present Possible ischemia now present Left-axis deviation no longer present Myocardial infarct finding still present Electronically Signed On 11-24-23 13:06:07 CDT by Jovi Barrett
[2023-11-24 16:45] VITALS: BP 139/68; TEMP 97.4
--- NOTE | 2023-11-24 17:02 | P.DS ---
Admission Date: 11/22/23 Discharge Date: 11/24/23 Disposition: ROUTINE DISCHARGE Discharge Condition: GOOD Reason for Admission: Headache Brief History of Present Illness: 53 yrs old Female with past medical history of hypertension, hyperlipidemia, diabetes, ESRD, on dialysis Tuesday, history of tendinitis in the elbows who came to the ER with blurring of vision and headache. Patient complains of headache bifrontal and also bitemporal which is a constant throbbing type of headache which started a day ago and has been progressively getting worse. Associated with some nausea but no vomiting. She had a history of migraines before but not to this extent. Denies any chest pain or shortness of breath. No fever or chills. No sick contacts. Patient was assessed in the ER and is admitted for further management. - Physical Exam General: Alert, In no apparent distress, Oriented x3 HEENT: Atraumatic, Normocephalic Neck: Supple Respiratory: Clear to auscultation bilaterally, Normal air movement Cardiovascular: Normal pulses, Regular rate/rhythm, Normal S1 S2 Capillary refill: <2 Seconds Gastrointestinal: Soft and benign, W/out hepatosplenomegaly Musculoskeletal: No clubbing, No swelling Integumentary: No rashes, No breakdown Neurological: Normal gait, Normal speech, Normal strength at 5/5 x4 extr Lymphatics: No axilla or inguinal lymphadenopathy Hospital Course: 53 yrs old Female with past medical history of hypertension, hyperlipidemia, diabetes, ESRD, on dialysis Tuesday, history of tendinitis in the elbows who came to the ER with blurring of vision and headache. Patient complains of headache bifrontal and also bitemporal which is a constant throbbing type of headache which started a day ago and has been progressively getting worse. Associated with some nausea but no vomiting. She had a history of migraines before but not to this extent. History of end-stage renal disease on hemodialysis was evaluated by nephrology, was noted to have accelerated hypertension, antihypertensives while inpatient. Intractable headache treated with as needed analgesic. CT of the brain no acute intracranial process, MRI of the brain no acute abnormality noted. She is tolerating diet, stable to discharge home, follow-up with nephrology after discharge. Discharge medication Imitrex 50 mg 1 p.o. every 12 hours as needed for headache Nifedipine 90 mg 1 p.o. twice daily for hypertension Coreg 25 mg 1 p.o. twice daily for hypertension Continue home medicines as previously prescribed GOAL: Clear understanding of disease process INSTRUCTIONS: Physician Discharge Instructions: -Follow-up with PCP in 1 to 2 weeks -Please call Dr. Dong at [phone] if any questions regarding hospital stay -Please call nursing station at [phone] if any nursing or medication questions -Return to the emergency room if symptoms worsen Diet: ADA, low sodium Activity: Fall precautions Vital Signs/Physical Exam: Temp Pulse Resp BP Pulse Ox 97.4 F 75 18 139/68 95 11/24/23 15:00 11/24/23 15:00 11/24/23 15:00 11/24/23 15:00 11/24/23 15:00 Laboratory Data at Discharge: WBC 5.20 thou/uL (4.3-10.9) 11/23/23 05:42 Hgb 8.5 g/dL (12.0-15.0) L 11/23/23 05:42 Hct 25.7 % (36.0-45.0) L 11/23/23 05:42 Plt Count 148 thou/uL (152-406) L 11/23/23 05:42 PT 12.5 SECONDS (9.4-12.5) 11/22/23 18:53 INR 1.12 11/22/23 18:53 Sodium 134 mEq/L (136-145) L 11/23/23 05:42 Potassium 3.8 mEq/L (3.5-5.1) 11/23/23 05:42 BUN 62 mg/dL (7-18) H 11/23/23 05:42 Creatinine 8.38 mg/dL (0.55-1.02) H 11/23/23 05:42 Glucose 256 mg/dL (74-106) H 11/23/23 05:42 Magnesium 2.0 mg/dL (1.6-2.4) 11/22/23 18:53 Total Bilirubin 0.5 mg/dL (0.2-1.0) 11/23/23 05:42 AST < 10 U/L (15-37) L 11/23/23 05:42 ALT 15 U/L (13-56) 11/23/23 05:42 Alkaline Phosphatase 211 U/L (45-117) H 11/23/23 05:42 Lipase 385 U/L (13-75) H 11/22/23 18:53 Home Medications: Cholecalciferol (Vitamin D3) [Vitamin D3] 1,000 iu PO DAILY 12/23/18 Insulin Lispro [Humalog] See Protocol SQ TIDWM 12/23/18 carvediloL [Carvedilol] 25 mg PO BID 12/23/18 Dulaglutide [Trulicity] 3 mg SQ SEECOM 03/25/19 Duloxetine [Cymbalta *] 30 mg PO DAILY 12/14/19 Pantoprazole [Protonix Tab*] 40 mg PO DAILY 12/14/19 Gabapentin 1,200 mg PO BID 11/23/23 Tirzepatide [Mounjaro] 2.5 mg SQ EVERY 7TH DAY 11/23/23 Torsemide [Soaanz] 40 mg PO BID 11/23/23 Venlafaxine HCl [Venlafaxine HCl ER] 37.5 mg PO DAILY 11/23/23 Calcitrol [Rocaltrol*] 0.5 mcg PO DAILY #30 cap 11/24/23 Calcium Carbonate [Tums Regular*] 500 mg PO QID PRN #120 tab 11/24/23 Carvedilol [Coreg] 25 mg PO BID #60 tab 11/24/23 NIFEdipine [Nifedipine ER] 90 mg PO BID #60 tab 11/24/23 Sevelamer Carbonate [Renvela*] 800 mg PO TIDWM #90 tab 11/24/23 Sumatriptan [Imitrex*] 50 mg PO Q12HP PRN #8 tab 11/24/23 New Medications: Carvedilol [Coreg] 25 mg PO BID #60 tab Sumatriptan [Imitrex*] 50 mg PO Q12HP PRN #8 tab PRN Reason: Migraine Headache NIFEdipine [Nifedipine ER] 90 mg PO BID #60 tab Sevelamer Carbonate [Renvela*] 800 mg PO TIDWM #90 tab Calcitrol [Rocaltrol*] 0.5 mcg PO DAILY #30 cap Calcium Carbonate [Tums Regular*] 500 mg PO QID PRN #120 tab PRN Reason: Indigestion Physician Discharge Instructions: -DC IV and DC home -Follow-up with PCP in 1 to 2 weeks -Follow-up with Nephrology in 1 to 2 weeks -Please call Dr. Dong at [phone] if any questions regarding hospital stay -Please call nursing station at [phone] if any nursing or medication questions -Return to the emergency room if symptoms worsen Diet: Renal Activity: Fall precautions Followup: Maury Elam FNP [Primary Care Provider] - Physician Review: Patient Assessed, Agree with Above Assessment and Plan (45)
--- NOTE | 2023-11-24 21:57 | P.PN ---
Date of Service: 11/24/23 Vital Signs Temp Pulse Resp BP Pulse Ox 97.4 F 75 18 139/68 95 11/24/23 15:00 11/24/23 15:00 11/24/23 15:00 11/24/23 15:00 11/24/23 15:00 Assessment/ Plan: Nephrology No dyspnea No chest pain Feeling better No acute events overnight Vitals, medications, blood work and imaging reviewed in the chart General: In no apparent distress, Cooperative HEENT: Atraumatic Neck: Supple Respiratory: Normal air movement/ CTA Cardiovascular: No edema, Regular rate/rhythm Gastrointestinal: Soft and benign, Non-distended Musculoskeletal: No clubbing, No contractures Integumentary: No rashes, No cyanosis Neurological: Normal speech Blood work reviewed in the chart. Imagings Data: [address] EXAM DESCRIPTION: RAD - Chest Single View - 11/22/2023 6:41 pm CLINICAL HISTORY: COUGH COMPARISON: Chest Single View dated 09/03/2021; Chest Single View dated 04/08/2021; Chest Single View dated 07/03/2020; Chest Single View dated 12/17/2019 FINDINGS: Lines: None. Lungs: No evidence of edema or pneumonia. Pleural: No significant pleural effusions or pneumothorax. Cardiac: Mild cardiomegaly. Mediastinum: Within normal limits. Bones: No acute fractures. ACDF in the cervical spine. Other: None IMPRESSION: No acute cardiopulmonary disease. [address] EXAM DESCRIPTION: MRI - Brain Wo Cont - 11/23/2023 9:15 am CLINICAL HISTORY: Blurring of vision Headache, drowsiness COMPARISON: Head Brain Wo Cont dated 11/22/2023 TECHNIQUE: Multi-sequence, multiplanar MR imaging of the brain was performed without contrast. FINDINGS: No intracranial hemorrhage, hydrocephalus or extra-axial fluid collections. No edema or shift of midline structures. No findings to suspect brain mass. DWI is negative for acute CVA. Midline structures are normally formed. Mild left mastoid effusion. The paranasal sinuses and mastoids are otherwise clear. IMPRESSION: Negative for acute CVA or other acute intracranial process. Mild left mastoid effusion. [address] EXAM DESCRIPTION: CT - Head Brain Wo Cont - 11/22/2023 6:30 pm CLINICAL HISTORY: HEADACHE COMPARISON: Head Brain Wo Cont dated 09/15/2022; Head Brain Wo Cont dated 04/01/2022 TECHNIQUE: All CT scans are performed using dose optimization technique as appropriate and may include automated exposure control or mA/KV adjustment according to patient size. FINDINGS: No intracranial hemorrhage, hydrocephalus or extra-axial fluid collection.No areas of brain edema or evidence of midline shift. Mild age advanced cerebral atrophy. The paranasal sinuses and mastoids are clear. The calvarium is intact. IMPRESSION: No acute intracranial abnormality. Conclusions/Impression: ESRD on HD Proteinuria Hyponatremia -Acute HD ordered HTN with CKD/ CHF -Continue Coreg Diastolic CHF, A/C -Low sodium diet -HD with UF DM II with CKD & Polyneuropathy -RISS -Continue Gabapentin Anemia in CKD -Retacrit qHD CKD MBD -Continue calcitriol -Ergo X2 -Continue Renvela Hospitalist note reviewed
== END 2023-11-24 18:39 | disposition home or self-care (01) ==
LOC: ER 17:48 → ERHOLD 21:25 → 4TH 22:15
PROVIDERS: ADMIT Family Medicine; ATTEND Hospitalist
DX: R51.9 Headache, unspecified (principal); I10 Essential (primary) hypertension; E78.5 Hyperlipidemia, unspecified; E11.9 Type 2 diabetes mellitus without complications; N18.6 End stage renal disease; D63.1 Anemia in chronic kidney disease; E87.1 Hypo-osmolality and hyponatremia; H53.8 Other visual disturbances; R11.0 Nausea; R80.9 Proteinuria, unspecified; I50.33 Acute on chronic diastolic (congestive) heart failure; E11.42 Type 2 diabetes mellitus with diabetic polyneuropathy; Z99.2 Dependence on renal dialysis; Z88.8 Allergy status to other drugs, medicaments and biological substances
CPT/HCPCS: 36415; 70450; 70551; 71045; 80048; 80053; 80076; 81001; 82947; 83690; 83735; 83880; 84484; 85025; 85610; 86706; 87340; 93005; 94760; 96374; 96375; 99285; G0257; G0378; J0360; J1644; J2405; J2765; J3010; Q4081

== ENCOUNTER 2024-08-03 20:55 | Emergency (ER) | payer BC, OTHER ==
[2024-08-03] MEDS ORDERED: HYDROCODONE/APAP 5/325 MG TAB ONE (21:45)
--- NOTE | 2024-08-03 22:28 | RAD REPORT ---
Exam:Forearm Left Clinical history: Left forearm pain Findings: No fracture seen. [place] presumably postsurgical are present throughout the anterior soft tissues of the elbow. Areas adjacent increased density could be dystrophic calcification or or even foreign body. If clinically indicated a CT scan could be obtained Calcifications are present within the lateral soft tissue at the level of the distal humerus diaphysi s.
--- NOTE | 2024-08-03 22:47 | EDPHYS ---
Physician Documentation [facility] Name: Emily Barbour Age: 53 yrs Sex: Female : 1970 Arrival Date: 08/03/2024 Time: 20:55 Bed 13 Private MD: ED Physician Aaron Alvarado HPI: 08/03 21:35 This 53 yrs old Other Race Female presents to ER via Ambulatory with complaints of Arm cp Injury. 21:35 The patient or guardian complains of injury, pain, that is acute. The complaints affect cp the left forearm. 21:35 Context: rolled over and fell from bed injuring left forearm. cp 21:35 Onset: The symptoms/episode began/occurred today. Treatment prior to arrival includes: cp no previous treatment. Associated signs and symptoms: The patient has no apparent associated signs or symptoms. 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 - Infectious Disease History:: Denies. - Social history:: Smoking status: Patient/guardian denies using tobacco, the patient reports quitting approximately 11 years ago. ROS: 21:40 MS/extremity: Positive for pain, of the left forearm, Negative for decreased range of cp motion, deformity, paresthesias, 21:40 Constitutional: Negative for fever, cp 21:40 Respiratory: Negative for cough, shortness of breath, wheezing, 21:40 Abdomen/GI: Negative for abdominal pain, vomiting, diarrhea, constipation, 21:40 Back: Negative for pain at rest, pain with movement, 21:40 Skin: Negative for laceration(s), rash, 21:40 Neuro: Negative for altered mental status, dizziness, headache, loss of consciousness, syncope, weakness, 21:40 All other systems are negative, Exam: 21:45 Constitutional: The patient appears in no acute distress, alert, awake, non-toxic, well cp developed, well nourished, obese, 21:45 Head/Face: Normocephalic, atraumatic. cp 21:45 Neck: C-spine: vertebral tenderness, is not appreciated, crepitus, is not appreciated, ROM/movement: is normal, is supple, without pain, no range of motions limitations, 21:45 Chest/axilla: Inspection: normal, 21:45 Cardiovascular: Rate: normal, 21:45 Respiratory: the patient does not display signs of respiratory distress, Respirations: normal, no use of accessory muscles, no retractions, labored breathing, is not present, Breath sounds: are clear throughout, no decreased breath sounds, 21:45 Abdomen/GI: Inspection: abdomen appears normal, 21:45 Back: pain, is absent, ROM is normal, 21:45 Musculoskeletal/extremity: Extremities: noted in the left forearm: pain, tenderness, no deformity, full AROM left elbow and left wrist, Perfusion: the extremity is normally perfused throughout, the left arm Sensation intact. Vital Signs: 21:03 BP 155 / 68; Pulse 81; Resp 16; Temp 99; Pulse Ox 98% on R/A; Weight 90 kg; Height 5 dd2 ft. 5 in. ; Pain 7/10; 22:24 BP 160 / 66; Pulse 81; Pulse Ox 94% ; br2 23:06 BP 162 / 71; Pulse 81; Resp 18; Pulse Ox 94% on R/A; br2 21:03 Body Mass Index 33.02 (90.00 kg, 165.1 cm) dd2 21:03 Pain Scale: Adult dd2 MDM: 21:16 Medical Screening Exam initiated cp 22:00 Differential diagnosis: dislocation, fracture, contusion, dislocation. cp 22:27 Data reviewed: vital signs, nurses notes, radiologic studies, plain films. Independent cp interpretation of the following test(s) in the Emergency Department X-Ray: My interpretation is images of left forearm negative for fracture. 22:27 Care significantly affected by the following chronic conditions: Diabetes, cp Hypertension, Chronic Kidney Disease. Counseling: I had a detailed discussion with the patient and/or guardian regarding the historical points, exam findings, and any diagnostic results supporting the discharge/admit diagnosis, radiology results, to return to the emergency department if symptoms worsen or persist or if there are any questions or concerns that arise at home. 08/03 21:28 Order name: XRAY Forearm LEFT; Complete Time: 22:38 cp 08/03 22:38 Interpretation: Report reviewed. cp Administered Medications: 21:48 Drug: HYDROcodone-acetaminophen PO 5 mg-325 mg 1 tabs PO once Route: PO; br2 23:05 Follow up: Response: Pain is decreased br2 Disposition: 08/04 04:16 Co-signature as Attending Physician, Aaron Alvarado MD I agree with the assessment sp4 and plan of care. I reviewed the patient's care provided by the Advanced Practice Provider and agree with the diagnosis and treatment plan. 22:57 Chart complete. cp Disposition Summary: 08/03/24 22:46 Discharge Ordered Notes: Location: Home cp Problem: new cp Symptoms: have improved cp Condition: Stable cp Diagnosis - Pain in left forearm cp Followup: cp - With: Private Physician - When: 5 - 6 days - Reason: Worsening of condition Discharge Instructions: - Discharge Summary Sheet cp - Musculoskeletal Pain cp Forms: - Medication Reconciliation Form cp - Antibiotic Education cp - Prescription Opioid Use cp - Patient Portal Instructions cp - Leadership Thank You Letter cp Signatures: Dispatcher [employer] EDHI Darrick Rosenbaum PA PA cp Aaron Alvarado MD MD sp4 Martha Diehl RN RN br2 HAMIDA VYAS RN RN dd2 Corrections: (The following items were deleted from the chart) 08/03 21:09 21:08 PSHx: right foot; dd2 dd2 21:29 21:29 Forearm Left+RAD.RAD.BRZ ordered. [facility] EDHI 08/04 22:53 04:15 This 53 yrs old Other Race Female presents to ER via Ambulatory with complaints cp of Arm Injury. sp4 22:53 22:52 The patient or guardian complains of injury, pain, that is acute, cp cp 22:53 22:52 The complaints affect the left forearm, cp cp
--- NOTE | 2024-08-03 22:47 | ER ---
Nurse's Notes [facility] Name: Emily Barbour Age: 53 yrs Sex: Female : 1970 Arrival Date: 08/03/2024 Time: 20:55 Bed 13 Private MD: Diagnosis: Pain in left forearm Presentation: 08/03 21:03 Chief complaint: Patient states: ROLLED OVER TO MAKE ROOM FOR THE DOG AND ROLLED OUT OF dd2 BED, LANDING ON LT ARM. REPORTS LEFT ARM PAIN. Coronavirus screen: At this time, the client does not indicate any symptoms associated with coronavirus-19. Ebola Screen: No symptoms or risks identified at this time. Initial Sepsis Screen: Does the patient meet any 2 criteria? No. Patient's initial sepsis screen is negative. Does the patient have a suspected source of infection? No. Patient's initial sepsis screen is negative. Risk Assessment: Do you want to hurt yourself or someone else? Patient reports no desire to harm self or others. Onset of symptoms was August 03, 2024. 21:03 Method Of Arrival: Ambulatory dd2 21:03 Acuity: SAL[place] 3 dd2 Triage Assessment: 21:08 General: Appears in no apparent distress. uncomfortable, Behavior is calm, cooperative, dd2 appropriate for age. Pain: Complains of pain in dorsal aspect of left forearm Pain does not radiate. Pain currently is 7 out of 10 on a pain scale. EENT: No deficits noted. No signs and/or symptoms were reported regarding the EENT system. Neuro: No deficits noted. Staley Agitation-Sedation Scale (RASS): 0 - Alert and Calm Level of Consciousness is awake, alert, obeys commands, Oriented to person, place, time, situation, Appropriate for age. Cardiovascular: No deficits noted. Patient's skin is warm and dry. Respiratory: No deficits noted. Airway is patent Respiratory effort is even, unlabored, Respiratory pattern is regular, symmetrical. GI: No deficits noted. No signs and/or symptoms were reported involving the gastrointestinal system. Abdomen is non-distended, obese, Abd is soft and non tender X 4 quads. : No deficits noted. No signs and/or symptoms were reported regarding the genitourinary system. Derm: No deficits noted. No signs and/or symptoms reported regarding the dermatologic system. Skin is healthy with good turgor, Skin is dry, Skin is normal, Skin temperature is warm. Musculoskeletal: Circulation, motion, and sensation intact. Range of motion: intact in all extremities, Reports pain in dorsal aspect of left forearm since 2 AM. Pain is 7 out of 10 on a pain scale. Injury Description: FALL WITH LT ARM INJURY. 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 - Infectious Disease History:: Denies. - Social history:: Smoking status: Patient/guardian denies using tobacco, the patient reports quitting approximately 11 years ago. Screenin:21 [facility] ED Fall Risk Assessment (Adult) History of falling in the last 3 months, br2 including since admission Yes- single mechanical fall (1 pt) Confusion or Disorientation No (0 pts) Intoxicated or Sedated No (0 pts) Impaired Gait No (0 pts) Mobility Assist Device Used No (0 pt) Altered Elimination No (0 pt) Score/Fall Risk Level 0 - 2 = Low Risk Oriented to surroundings, Maintained a safe environment. Abuse screen: Denies threats or abuse. Denies injuries from another. Nutritional screening: No deficits noted. Tuberculosis screening: No symptoms or risk factors identified. Assessment: 21:21 Reassessment: Patient and/or family updated on plan of care and expected duration. Pain br2 level reassessed. Patient is alert, oriented x 3, equal unlabored respirations, skin warm/dry/pink. General: Appears in no apparent distress. comfortable, Behavior is calm, cooperative. Pain: Complains of pain in dorsal aspect of left forearm and palmar aspect of left forearm Pain currently is 7 out of 10 on a pain scale. Neuro: Level of Consciousness is awake, alert, obeys commands, Oriented to person, place, time, situation. Cardiovascular: Denies chest pain. Respiratory: Airway is patent Respiratory effort is even, unlabored, Respiratory pattern is regular, symmetrical, Denies shortness of breath. GI: No signs and/or symptoms were reported involving the gastrointestinal system. : No signs and/or symptoms were reported regarding the genitourinary system. EENT: No signs and/or symptoms were reported regarding the EENT system. Derm: No signs and/or symptoms reported regarding the dermatologic system. Musculoskeletal: Reports pain in dorsal aspect of left forearm and palmar aspect of left forearm since 2AM. Pain is 7 out of 10 on a pain scale. Vital Signs: 21:03 BP 155 / 68; Pulse 81; Resp 16; Temp 99; Pulse Ox 98% on R/A; Weight 90 kg; Height 5 dd2 ft. 5 in. ; Pain 7/10; 22:24 BP 160 / 66; Pulse 81; Pulse Ox 94% ; br2 23:06 BP 162 / 71; Pulse 81; Resp 18; Pulse Ox 94% on R/A; br2 21:03 Body Mass Index 33.02 (90.00 kg, 165.1 cm) dd2 21:03 Pain Scale: Adult dd2 ED Course: 20:58 Patient arrived in ED. jj6 20:58 Darrick Rosenbaum PA is PHCP. cp 20:58 Aaron Alvarado MD is Attending Physician. cp 21:07 Triage completed. dd2 21:08 Arm band placed on left wrist. dd2 21:21 Martha Diehl, RN is Primary Nurse. br2 21:21 Patient has correct armband on for positive identification. Bed in low position. Call br2 light in reach. Side rails up X 1. Provided Education on: PLAN OF CARE. 22:18 XRAY Forearm LEFT In Process Unspecified. EDMS 23:05 No provider procedures requiring assistance completed. Patient did not have IV access br2 during this emergency room visit. Administered Medications: 21:48 Drug: HYDROcodone-acetaminophen PO 5 mg-325 mg 1 tabs PO once Route: PO; br2 23:05 Follow up: Response: Pain is decreased br2 Medication: 21:21 VIS not applicable for this client. br2 Outcome: 22:46 Discharge ordered by . cp 23:05 Discharged to home ambulatory, br2 23:05 Condition: stable 23:05 Discharge instructions given to patient, Instructed on discharge instructions, follow up and referral plans. Demonstrated understanding of instructions, follow-up care, 23:06 Patient left the ED. br2 Signatures: Dispatcher [employer] EDMS Darrick Rosenbaum PA PA cp Jeffries, Jennifer jj6 Martha Diehl RN RN br2 HAMIDA VYAS RN RN dd2 Corrections: (The following items were deleted from the chart) 21:09 21:08 PSHx: right foot; dd2 dd2
[2024-08-03 23:38] VITALS: TEMP 99
[2024-08-03 23:45] VITALS: O2SAT 94
[2024-08-03 23:46] VITALS: BP 162/71
== END 2024-08-03 23:06 | disposition home or self-care (01) ==
LOC: ER 20:55
DX: M79.632 Pain in left forearm (principal)
CPT/HCPCS: 99283

== ENCOUNTER 2024-12-04 21:46 | Emergency (ER) | payer BC, OTHER ==
[2024-12-04] MEDS ORDERED: D5W 250 ML IV ONE (21:47)
[2024-12-04] MEDS ORDERED: EPINEPHrine 1 MG/10 ML SYR IV ONE (21:47)
[2024-12-04] MEDS ORDERED: Calcium Chloride 10% INJ SYR IV ONE (21:47)
[2024-12-04] MEDS ORDERED: NALOXONE HCL 2 MG/2 ML VIAL IV ONE (21:47)
[2024-12-04] MEDS ORDERED: NA CHLORIDE 0.9% 500 ML IV ONE (21:47)
[2024-12-04] MEDS ORDERED: NA CHLORIDE 0.9% 1,000 ML IV ONE (21:47)
[2024-12-04] MEDS ORDERED: MORPHINE 4 MG/ML SYR ONE (22:35)
[2024-12-04] MEDS ORDERED: ONDANSETRON 4 MG/2 ML VIAL ONE (22:35)
[2024-12-04 22:36] LABS: Absolute Lymphocytes (CBC) 0.2 K/uL (0.7-4.9); Hematocrit 28.5 % (36.0-45.0); Hemoglobin 9.5 g/dL (12.0-15.0); MCH 27.9 pg (27.0-35.0); MCHC 33.3 g/dL (32.0-36.0); MCV 83.8 fL (80-100); MPV 8.8 fL (7.6-11.3); Nucleated RBC Absolute Count 0.0 (0-0); Nucleated Red Blood Cells % 0.1 % (0-0); RBC Red Blood Cell Count 3.40 M/uL (3.86-4.86); White Blood Count 3.70 thou/uL (4.3-10.9)
[2024-12-04 22:37] LABS: PT Prothrombin Time 15.2 SECONDS (10-13.0); Protime INR 1.36
[2024-12-04 23:21] LABS: AST/SGOT 14 U/L (15-37); Albumin 3.1 g/dL (3.4-5.0); Albumin/Globulin Ratio 0.6 (1.1-1.8); Alkaline Phosphatase 154 U/L (45-117); Anion Gap 12.5 mEq/L (5.0-15.0); BUN Blood Urea Nitrogen 34 mg/dL (7-18); Bilirubin Indirect, Calculated 0.4 mg/dL (0.2-0.8); Globulin 5.3 g/dL (2.3-3.5); Glucose Level 246 mg/dL (74-106); Lipase 143 U/L (13-75); Magnesium 1.7 mg/dL (1.6-2.4); NT PRO-BNP 62367 pg/mL (<125); Potassium 4.5 mEq/L (3.5-5.1); Troponin High Sensitivity 20.1 pg/mL (<58.9)
[2024-12-04 23:22] LABS: ALT/SGPT < 14 U/L (13-56)
[2024-12-04 23:49] LABS: Differential Total Cells Count 100; Segmented Neutrophils 65 % (40-80)
[2024-12-04 23:50] LABS: Blood Morphology Comment NOTED (NOT SEEN); Microcytosis SLIGHT
--- NOTE | 2024-12-05 01:09 | ER ---
Nurse's Notes [facility] Name: Emily Barbour Age: 54 yrs Sex: Female : 1970 Arrival Date: 12/04/2024 Time: 21:46 Bed 17 Private MD: Diagnosis: Syncope and collapse, acute right bimalleolar ankle fracture, acute right distal fibula fracture, acute right medial malleolus fracture Presentation: 12/04 21:55 Chief complaint: EMS states: toned out for R ankle pain and syncopal episode. About 5 me1 hours ago patient was dizzy and fell injuring R ankle. Tonight she was in WC getting ready to come to ER for the ankle pain and had a syncopal episode that lasted 30-45 seconds. said it looked like a seizure- last seizure was over 5 years ago. Patient was not postictal when EMS arrived. BGL 317. Does wear o2 at home at 3 lpm via nc. Coronavirus screen: Vaccine status: Patient reports receiving the 2nd dose of the covid vaccine. Ebola Screen: No symptoms or risks identified at this time. Initial Sepsis Screen: Does the patient meet any 2 criteria? No. Patient's initial sepsis screen is negative. Does the patient have a suspected source of infection? No. Patient's initial sepsis screen is negative. Risk Assessment: Do you want to hurt yourself or someone else? Patient reports no desire to harm self or others. Onset of symptoms was December 04, 2024. 21:55 Method Of Arrival: EMS: [facility] sc1 21:55 Acuity: [place] 3 me1 Triage Assessment: 21:59 General: Appears uncomfortable, Behavior is cooperative, appropriate for age, crying. me1 Pain: Complains of pain in right ankle Pain does not radiate. Pain currently is 10 out of 10 on a pain scale. Quality of pain is described as aching, Pain began suddenly, Is continuous. EENT: No signs and/or symptoms were reported regarding the EENT system. Neuro: Level of Consciousness is awake, alert, obeys commands, Oriented to person, place, time, situation, Appropriate for age. Cardiovascular: Patient's skin is warm and dry. Respiratory: Airway is patent Respiratory effort is even, unlabored, Respiratory pattern is regular, symmetrical. GI: No signs and/or symptoms were reported involving the gastrointestinal system. : No signs and/or symptoms were reported regarding the genitourinary system. Reports ESRD on HD M, W, F. Derm: Skin is healthy with good turgor, Skin is normal, Bruising that is on right ankle. Musculoskeletal: Range of motion: limited in right ankle Swelling present in right leg and left leg. Injury Description: ground level fall from dizziness about 5 hours ago. 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 - Infectious Disease History:: Denies. - Social history:: Smoking status: Patient/guardian denies using tobacco, but has a distant history of tobacco abuse. - Family history:: not pertinent. Screenin:05 [facility] ED Fall Risk Assessment (Adult) History of falling in the last 3 months, me1 including since admission Yes- single mechanical fall (1 pt) Confusion or Disorientation No (0 pts) Intoxicated or Sedated No (0 pts) Impaired Gait Yes (1 pt) Mobility Assist Device Used Yes (1 pt) Altered Elimination No (0 pt) Score/Fall Risk Level 0 - 2 = Low Risk Maintained a safe environment, Provided non-skid footwear, Hourly rounding (assess needs \T\ fall precautionary measures) done. Abuse screen: Denies threats or abuse. Nutritional screening: No deficits noted. Tuberculosis screening: No symptoms or risk factors identified. 22:47 [facility] ED Fall Risk Assessment (Adult) History of falling in the last 3 months, tb4 including since admission Yes- single mechanical fall (1 pt) Confusion or Disorientation No (0 pts) Intoxicated or Sedated No (0 pts) Impaired Gait Yes (1 pt) Mobility Assist Device Used Yes (1 pt) Altered Elimination No (0 pt) Score/Fall Risk Level 0 - 2 = Low Risk Oriented to surroundings, Maintained a safe environment. Abuse screen: Denies threats or abuse. Denies injuries from another. Nutritional screening: No deficits noted. Tuberculosis screening: No symptoms or risk factors identified. Assessment: 22:05 General: See triage assessment. sc1 22:47 General: Appears distressed, uncomfortable, Behavior is cooperative, restless, moaning tb4 due to pain. Pain: Complains of pain in lateral side of right heel, right Achilles, right lateral malleolus, right medial malleolus and medial aspect of right heel Pain does not radiate. Pain currently is 10 out of 10 on a pain scale. Quality of pain is described as sharp, shooting, Pain began suddenly, 1 hour ago. Is continuous, Alleviated by nothing. Aggravated by increased activity, repositioning, weight bearing. Neuro: Level of Consciousness is awake, alert, obeys commands, Oriented to person, place, time, situation. Respiratory: Reports Airway is patent Trachea midline Respiratory effort is even, unlabored, Respiratory pattern is regular, symmetrical. GI: No signs and/or symptoms were reported involving the gastrointestinal system. : No signs and/or symptoms were reported regarding the genitourinary system. Derm: No signs and/or symptoms reported regarding the dermatologic system. Skin is intact, is healthy with good turgor, Skin is normal. Derm: Musculoskeletal: Circulation, motion, and sensation intact. Range of motion: intact in all extremities. Injury Description: fall from sitting position due to syncope per family member to EMS. Vital Signs: 21:55 BP 176 / 74; Pulse 88; Resp 20; Temp 98.2; Pulse Ox 93% on R/A; Weight 84.37 kg; Height me1 5 ft. 5 in. ; Pain 10/10; 22:47 BP 166 / 72; Pulse 86; Resp 20; Pulse Ox 100% on R/A; Weight 99.79 kg (R); Height 5 ft. tb4 5 in. ; Pain 10/10; 23:50 BP 155 / 70; Pulse 69; Resp 18; Pulse Ox 99% on R/A; Pain 4/10; tb4 08 01:50 BP 157 / 59; Pulse 68; Resp 20; Temp 98.1(O); Pulse Ox 97% on R/A; Pain 4/10; tb4 12/04 22:47 Body Mass Index 36.61 (99.79 kg, 165.1 cm) tb4 12/04 21:55 Pain Scale: Adult me1 22:47 Pain Scale: Adult tb4 23:50 Pain Scale: Adult tb4 12/05 01:50 Pain Scale: Adult tb4 Marion Coma Score: 12/04 23:11 Eye Response: spontaneous(4). Motor Response: obeys commands(6). Verbal Response: sp4 oriented(5). Total: 15. ED Course: 21:49 Patient arrived in ED. kmf 21:58 Aaron Alvarado MD is Attending Physician. sp4 21:59 Triage completed. me1 21:59 Arm band placed on Patient placed in an exam room. me1 22:05 Patient has correct armband on for positive identification. Bed in low position. Call me1 light in reach. Side rails up X 1. Provided Education on: POC. Verbalized understanding.. Client placed on continuous cardiac and pulse oximetry monitoring. NIBP monitoring applied. Pulse ox on. NIBP on. 22:05 No provider procedures requiring assistance completed. me1 22:15 Tanvi Suarez, RN is Primary Nurse. me1 22:15 Initial lab(s) drawn, by sc, sent to lab. Inserted saline lock: 22 gauge in right me1 antecubital area, using aseptic technique. 22:17 EKG done, by tech ed teacher. ts3 22:47 X-ray(s) taken. tb4 23:09 Foot Right 3 View XRAY In Process Unspecified. EDMS 23:09 Tib Fib Right XRAY In Process Unspecified. EDMS 23:10 XRAY Chest (1 view) In Process Unspecified. EDMS 23:11 CT Head Brain wo Cont In Process Unspecified. EDMS 12/05 01:08 Mario Dao MD is Referral Physician. sp4 01:08 Vicki Zhu MD is Referral Physician. sp4 01:52 IV discontinued, intact, bleeding controlled, No redness/swelling at site. Pressure tb4 dressing applied. Administered Medications: 12/04 22:44 Drug: Ondansetron IVP 4 mg IVP once; over 2 minutes Route: IVP; Site: right antecubital;tb4 23:16 Follow up: Response: No adverse reaction tb4 22:46 Drug: morphine IVP or IV 4 mg IVP once over 4 mins Route: IVP; Infused Over: 4 mins; tb4 Site: right antecubital; 23:16 Follow up: Response: No adverse reaction; Pain is decreased; RASS: Alert and Calm (0) tb4 22:46 Drug: Droperidol IVP 1.25 mg IVP once Route: IVP; Site: right antecubital; tb4 23:16 Follow up: Response: No adverse reaction; RASS: Alert and Calm (0) tb4 Medication: 22:05 VIS not applicable for this client. me1 Outcome: 12/05 01:09 Discharge ordered by . sp4 01:51 Discharged to home ambulatory, via wheelchair, tb4 01:51 Condition: stable 01:51 Discharge instructions given to patient, family, Instructed on discharge instructions, follow up and referral plans. Demonstrated understanding of instructions, follow-up care, medications, Prescriptions given X 2, 01:53 Patient left the ED. tb4 Signatures: Dispatcher [employer] Aaron Rebollar MD MD sp4 Tanvi Suarez RN RN me1 Xochitl Noble Selma Epstein RN RN tb4 Marie Jo ts3 Corrections: (The following items were deleted from the chart) 12/04 22:01 21:59 PSHx: right foot; me1 me1 22:01 21:59 PSHx: right foot; me1 me1 22:01 21:59 PSHx: right foot; me1 me1
--- NOTE | 2024-12-05 01:09 | EDPHYS ---
Physician Documentation [facility] Name: Emily Barbour Age: 54 yrs Sex: Female : 1970 Arrival Date: 12/04/2024 Time: 21:46 Bed 17 Private MD: ED Physician Aaron Alvarado HPI: 12/04 21:58 This 54 yrs old Female presents to ER via Unassigned with complaints of Fall sp4 Injury, Near Syncope. 12/05 03:31 54-year-old female presents with complaint of acute fall at home associated with a near sp4 syncopal episode. Patient complains of moderate to severe right ankle pain and swelling.. 03:35 . 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 - Infectious Disease History:: Denies. - Social history:: Smoking status: Patient/guardian denies using tobacco, but has a distant history of tobacco abuse. - Family history:: not pertinent. ROS: 12/05 03:32 Constitutional: Negative for fever, chills, and weight loss, positive for near syncopal sp4 episode, positive for fall, positive for right ankle injury. All other systems are negative, Exam: 12/04 23:11 Constitutional: This is a well developed, well nourished patient who is awake, alert, sp4 and in no acute distress. Left arm dialysis fistula with palpable thrill Head/Face: Normocephalic, atraumatic. Eyes: Pupils equal round and reactive to light, extra-ocular motions intact. Lids and lashes normal. Conjunctiva and sclera are not injected. Cornea within normal limits. Periorbital areas with no swelling, redness, or edema. ENT: Nares patent. No nasal discharge, no septal abnormalities noted. Tympanic membranes are normal and external auditory canals are clear. Oropharynx with no redness, swelling, or masses, exudates, or evidence of obstruction, uvula midline. Mucous membranes moist. Neck: Trachea midline, no thyromegaly or masses palpated, and no cervical lymphadenopathy. Supple, full range of motion without nuchal rigidity, or vertebral point tenderness. Chest/axilla: Normal chest wall appearance and motion. Nontender with no deformity. No lesions are appreciated. Cardiovascular: Regular rate and rhythm with a normal S1 and S2. No gallops, murmurs, or rubs. No pulse deficits. Respiratory: Lungs have equal breath sounds bilaterally, clear to auscultation and percussion. No rales, rhonchi or wheezes noted. No increased work of breathing, no retractions or nasal flaring. Abdomen/GI: Soft, with normal bowel sounds. No distension or tympany. No guarding or rebound. No evidence of tenderness throughout. Back: No spinal tenderness. No costovertebral tenderness. Skin: Warm, dry with normal turgor. Normal color with no rashes, no lesions, and no evidence of cellulitis. MS/ Extremity: Pulses equal, no cyanosis. Neurovascular intact. Full, normal range of motion. Neuro: Awake and alert, GCS 15, oriented to person, place, time, and situation. Cranial nerves II-XII grossly intact. Motor strength 5/5 in all extremities. Sensory grossly intact. Psych: Awake, alert, with orientation to person, place and time. Behavior, mood, and affect are within normal limits ECG was reviewed by the Attending Physician. EKG at 22 06 normal sinus rhythm right bundle branch block. Otherwise unremarkable. Vital Signs: 21:55 BP 176 / 74; Pulse 88; Resp 20; Temp 98.2; Pulse Ox 93% on R/A; Weight 84.37 kg; Height me1 5 ft. 5 in. ; Pain 10/10; 22:47 BP 166 / 72; Pulse 86; Resp 20; Pulse Ox 100% on R/A; Weight 99.79 kg (R); Height 5 ft. tb4 5 in. ; Pain 10/10; 23:50 BP 155 / 70; Pulse 69; Resp 18; Pulse Ox 99% on R/A; Pain 4/10; tb4 12/05 01:50 BP 157 / 59; Pulse 68; Resp 20; Temp 98.1(O); Pulse Ox 97% on R/A; Pain 4/10; tb4 12/04 22:47 Body Mass Index 36.61 (99.79 kg, 165.1 cm) tb4 12/04 21:55 Pain Scale: Adult me1 22:47 Pain Scale: Adult tb4 23:50 Pain Scale: Adult tb4 12/05 01:50 Pain Scale: Adult tb4 Wali Coma Score: 12/04 23:11 Eye Response: spontaneous(4). Motor Response: obeys commands(6). Verbal Response: sp4 oriented(5). Total: 15. Procedures: 12/05 01:07 Splinting: Splint applied to right calf, right Achilles and right heel using Orthoglass sp4 splint, Posterior right short leg fiberglass splint with stirrup. applied by myself. Examined by me, post splint application: neurovascular intact, 2+ distal pulses palpable, brisk capillary refill noted, Patient tolerated well, Crutches were provided.. MDM: 12/04 21:59 Medical Screening Exam initiated sp4 12/05 00:36 ED course: EXAM DESCRIPTION: Foot Right 3 View CLINICAL HISTORY: right foot pain sp4 COMPARISON: None. FINDINGS: 3 views of the right foot. Acute nondisplaced fracture of the medial malleolus. Nondisplaced fracture of the distal fibula. Soft tissue edema. Normal osseous mineralization. No radiopaque foreign body. Tarsals and metatarsals are appropriately aligned. IMPRESSION: 1. Acute nondisplaced fracture of the medial malleolus. 2. Nondisplaced fracture of the distal fibula. 3. Cortical step-off seen on tibia/fibular radiographs is not definitely identified on this study. CT of the ankle or dedicated ankle radiographs may provide additional characterization. Electronically signed by: August Pérez DO 12/05/2024 . ED course: EXAM DESCRIPTION: CT of the head without contrast CLINICAL HISTORY: SYNCOPE COMPARISON: 11/22/2023 TECHNIQUE: Axial CT of the head obtained from the skull apex to the skull base without contrast. This exam was performed according to our departmental dose-optimization program, which includes automated exposure control, adjustment of the mA and/or kV according to patient size and/or use of iterative reconstruction technique. FINDINGS: No acute intracranial hemorrhage identified. No mass, mass effect, shift of the midline, abnormal extra-axial fluid collection or CT evidence of acute ischemic change identified. The ventricular system and sulcal spaces are mildly enlarged compatible with mild cerebral atrophy. Scattered areas of hypodensity throughout the supratentorial white matter are nonspecific and may be related to chronic small vessel ischemic change. Flattening of the diaphragm of sella. The visualized paranasal sinuses and the mastoids are clear. No skull fracture identified. Visualized orbits and globes are unremarkable. Atherosclerotic calcification of the intracranial internal carotid arteries. IMPRESSION: 1. No acute intracranial abnormality by CT criteria. Electronically signed by: August Pérez DO 12/05/2024 12:05 AM . ED course: EXAM DESCRIPTION: Tib Fib Right CLINICAL HISTORY: right ankle pain COMPARISON: None. FINDINGS: 2 views of the right tibia/fibula. Acute nondisplaced fracture of the medial malleolus. Nondisplaced fracture of the distal fibula. Soft tissue edema. Possible cortical step-off of the posterior malleolus Normal osseous mineralization. No radiopaque foreign body. IMPRESSION: 1. Acute nondisplaced fracture of the medial malleolus. 2. Nondisplaced fracture of the distal fibula. 3. Possible cortical step-off of the posterior malleolus may represent a nondisplaced fracture. . ED course: EXAM DESCRIPTION: Chest Single View CLINICAL HISTORY: syncope COMPARISON: None. FINDINGS: 1 view(s) of the chest. Tubes and lines: Leads overlie the chest. Cardiomediastinal silhouette: Atherosclerotic calcification of the thoracic aorta. Cardiomegaly. Lungs: Pulmonary vascular congestion. Low lung volumes. No pneumothorax or large effusion. Bones: No acute osseous abnormality. Degenerative change of the spine and shoulders. Upper abdomen: No abnormality identified. IMPRESSION: Cardiomegaly with pulmonary vascular congestion. Electronically signed by: August Pérez DO 12/05/2024 12:07 AM. 03:32 Differential diagnosis: abrasion, closed head injury, contusion, multiple trauma, sp4 sprain, strain. Data reviewed: vital signs, nurses notes, radiologic studies, plain films. Consideration of Admission/Observation Escalation of care including admission/observation considered. ED course: Patient reported near syncopal episode at home associated with acute fall and a right ankle injury. Patient also may have had a possible syncopal episode as well. Patient was advised to stay in hospital for near syncope/syncope workup. Patient has declined to stay in the hospital. She prefers to go home with her . Patient's also states that patient has follow-up with [facility] in [place]. They requested to be discharged home with as needed pain medicines. Referral to orthopedist was provided to Dr. Wright. 12/04 21:58 Order name: Basic Metabolic Panel; Complete Time: 00:34 sp4 12/04 21:58 Order name: CBC with Diff; Complete Time: 00:34 sp4 12/04 21:58 Order name: LFT's; Complete Time: 00:34 sp4 12/04 21:58 Order name: Magnesium; Complete Time: 00:34 sp4 12/04 21:58 Order name: NT PRO-BNP; Complete Time: 00:34 sp4 12/04 21:58 Order name: PT-INR; Complete Time: 00:34 sp4 12/04 21:58 Order name: Troponin HS; Complete Time: 00:34 sp4 12/04 21:59 Order name: Lipase; Complete Time: 00:34 sp4 12/04 22:55 Order name: Manual Differential; Complete Time: 00:34 EDMS 12/04 21:58 Order name: XRAY Chest (1 view) 4 12/04 22:00 Order name: CT Head Brain wo Cont 4 12/04 22:00 Order name: Foot Right 3 View XRAY 4 12/04 22:00 Order name: Tib Fib Right XRAY 4 12/04 21:58 Order name: EKG; Complete Time: 21:59 sp4 12/04 21:58 Order name: Cardiac monitoring; Complete Time: 22:17 sp4 12/04 21:58 Order name: EKG - Nurse/Tech; Complete Time: 22:17 sp4 12/04 21:58 Order name: IV Saline Lock; Complete Time: 22:17 sp4 12/04 21:58 Order name: Labs collected and sent; Complete Time: 22:17 sp4 12/04 21:58 Order name: O2 Per Protocol; Complete Time: 22:17 sp4 12/04 21:58 Order name: O2 Sat Monitoring; Complete Time: 22:17 sp4 12/05 01:07 Order name: Splint: Right short leg splint applied by MD; Complete Time: 01:48 sp4 EC/19 22:06 Rate is 88 beats/min. Rhythm is regular, Normal Sinus Rhythm. QRS [place] is Normal. [place] sp4 interval is normal. QRS interval is prolonged. QT interval is normal. No Q waves. T waves are Normal. No ST changes noted. Clinical impression: No evidence of ischemia. Interpreted by me. Reviewed by me. Administered Medications: 22:44 Drug: Ondansetron IVP 4 mg IVP once; over 2 minutes Route: IVP; Site: right antecubital;tb4 23:16 Follow up: Response: No adverse reaction tb4 22:46 Drug: morphine IVP or IV 4 mg IVP once over 4 mins Route: IVP; Infused Over: 4 mins; tb4 Site: right antecubital; 23:16 Follow up: Response: No adverse reaction; Pain is decreased; RASS: Alert and Calm (0) tb4 22:46 Drug: Droperidol IVP 1.25 mg IVP once Route: IVP; Site: right antecubital; tb4 23:16 Follow up: Response: No adverse reaction; RASS: Alert and Calm (0) tb4 Disposition Summary: 12/05/24 01:09 Discharge Ordered Notes: we recommend close follow up with Orthopedist and Customs Investigator Location: Home sp4 Problem: new sp4 Symptoms: have improved sp4 Condition: Stable sp4 Diagnosis - Syncope and collapse, acute right bimalleolar ankle fracture, acute right distal sp4 fibula fracture, acute right medial malleolus fracture Followup: sp4 - With: Mario Dao MD - When: 1 - 2 days - Reason: Recheck today's complaints Followup: sp4 - With: Vicki Zhu MD - When: 7 - 10 days - Reason: Recheck today's complaints Discharge Instructions: - Discharge Summary Sheet sp4 - Ankle Fracture, [id number] sp4 Forms: - Patient Portal Instructions sp4 Prescriptions: - Cyclobenzaprine 10 mg Oral Tablet - take 1 tablet ORAL route every 8 hours As needed; 30 tablet; Refills: 0, sp4 Product Selection Permitted - Tramadol 50 mg Oral tablet - take 1 tablet ORAL route every 8 hours as needed; 30 tablet; Refills: 0, sp4 Product Selection Permitted Signatures: Dispatcher [employer] Aaron Rebollar MD MD sp4 Tanvi Suarez, RN RN me1 Selma Kothari RN RN tb4 Corrections: (The following items were deleted from the chart) 22:01 21:59 PSHx: right foot; me1 me1 22: 21:59 PSHx: right foot; me1 me1 22: 21:59 PSHx: right foot; me1 me1 12/05 01:49 08 22:33 Ortho shoe ordered. sp4 tb4 12/05 01:49 01:07 Crutches ordered. sp4 tb4
--- NOTE | 2024-12-05 01:31 | RAD REPORT ---
EXAM DESCRIPTION: Chest Single View CLINICAL HISTORY: syncope COMPARISON: None. FINDINGS: 1 view(s) of the chest. Tubes and lines: Leads overlie the chest. Cardiomediastinal silhouette: Atherosclerotic calcification of the thoracic aorta. Cardiomegaly. Lungs: Pulmonary vascular congestion. Low lung volumes. No pneumothorax or large effusion. Bones: No acute osseous abnormality. Degenerative change of the spine and shoulders. Upper abdomen: No abnormality identified. IMPRESSION: Cardiomegaly with pulmonary vascular congestion. Electronically signed by: August Pérez DO 12/05/2024 12:07 AM CDT RP 4ZDM Due to temporary technical issues with the PACS/[employer] reporting system, reports are being kanwal d by the in-house radiologist without review as a courtesy to ensure prompt reporting. The interpreting radiologist is fully responsible for the content of the report. Transcribed Date/Time: 12/05/2024 1:31 AM
--- NOTE | 2024-12-05 01:32 | RAD REPORT ---
EXAM DESCRIPTION: Foot Right 3 View CLINICAL HISTORY: right foot pain COMPARISON: None. FINDINGS: 3 views of the right foot. Acute nondisplaced fracture of the medial malleolus. Nondi splaced fracture of the distal fibula. Soft tissue edema. Normal osseous mineralization. No radiopaque foreign body. Tarsals and metatarsals are appropriately aligned. IMPRESSION: 1. Acute nondisplaced fracture of the medial malleolus. 2. Nondisplaced fracture of the distal fibula. 3. Cortical step-off seen on tibia/fibular radiographs is not definitely identified on this study. CT of the ankle or dedicated ankle radiographs may provide additional characterization. Electronically signed by: August Pérez DO 12/05/2024 12:06 AM CDT RP 4ZDM Due to temporary technical issues with the PACS/[employer] reporting system, reports are being signed by the in-house radiologist without review as a courtesy to ensure prompt reporting. The interpreting radiologist is fully responsible for the content of the report. Transcribed Date/Time: 12/05/2024 1:32 AM
--- NOTE | 2024-12-05 01:33 | RAD REPORT ---
EXAM DESCRIPTION: Tib Fib Right CLINICAL HISTORY: right ankle pain COMPARISON: None. FINDINGS: 2 views of the right tibia/fibula. Acute nondisplaced fracture of the medial malleolu s. Nondisplaced fracture of the distal fibula. Soft tissue edema. Possible cortical step-off of the posterior malleolus Normal osseous mineralization. No radiopaque foreign body. IMPRESSION: 1. Acute nondisplaced fracture of the medial malleolus. 2. Nondisplaced fracture of the distal fibula. 3. Possible cortical step-off of the posterior malleolus may represent a nondisplaced fracture. Electronically signed by: August Pérez DO 12/05/2024 12:01 AM CDT RP 4ZDM Due to temporary technical issues with the PACS/[employer] reporting system, reports are being kanwal d by the in-house radiologist without review as a courtesy to ensure prompt reporting. The interpreting radiologist is fully responsible for the content of the report. Transcribed Date/Time: 12/05/2024 1:33 AM
--- NOTE | 2024-12-05 02:40 | RAD REPORT ---
EXAM DESCRIPTION: CT of the head without contrast CLINICAL HISTORY: SYNCOPE COMPARISON: 11/22/2023 TECHNIQUE: Axial CT of the head obtained from the skull apex to the skull base without contrast. This exam was performed according to our departmental dose-optimization program, which includes automated exposure control, adjustment of the mA and/or kV according to patient size and/or use of it erative reconstruction technique. FINDINGS: No acute intracranial hemorrhage identified. No mass, mass effect, shift of the midline, abnormal ext ra-axial fluid collection or CT evidence of acute ischemic change identified. The ventricular system and sulcal spaces are mildly enlarged compatible with mild cerebral atrophy. Scattered areas of hypodensity throughout the supratentorial white matter are nonspecific and may be related to chronic small vessel ischemic change. Flattening of the diaphragm of sella. The visualized paranasal sinuses and the mastoids are clear. No skull fracture identified. Visualiz ed orbits and globes are unremarkable. Atherosclerotic calcification of the intracranial internal carotid arteries. IMPRESSION: 1. No acute intracranial abnormality by CT criteria. Electronically signed by: August Pérez DO 12/05/2024 12:05 AM CDT 4ZDM Due to temporary technical issues with the PACS/[employer] reporting system, reports are being kanwal d by the in-house radiologist without review as a courtesy to ensure prompt reporting the interpreting radiologist is fully responsible for the content of the report. Transcribed Date/Time: 12/05/2024 2:39 AM
[2024-12-05 05:56] VITALS: BP 157/59; TEMP 98.1; O2SAT 97
== END 2024-12-05 01:53 | disposition home or self-care (01) ==
LOC: ER 21:46
PROC: 2W3LX1Z Immobilization of Right Lower Extremity using Splint (ICD-10-PCS; principal; 2024-12-04)
DX: R55 Syncope and collapse (principal); S82.841A Displaced bimalleolar fracture of right lower leg, initial encounter for closed fracture; S82.831A Other fracture of upper and lower end of right fibula, initial encounter for closed fracture; S82.51XA Displaced fracture of medial malleolus of right tibia, initial encounter for closed fracture
CPT/HCPCS: 36415; 70450; 71045; 80048; 80076; 83690; 83735; 83880; 84484; 85025; 85610; 93005; J1790; J2405